=== PATIENT | male | born 1960 | race Caucasian/White ===

== ENCOUNTER 2016-11-24 13:09 | Inpatient (IN) | payer OTHER ==
[~2016-11-24] VITALS: Ht 200.7 cm; Wt 100.5 kg
[~2016-11-24 13:09] MED LIST: APIX5TAB PO; DILT1TAB4 PO; FURO20TA PO; HUMALOG SQ; LANTUS2P SQ; PROT40TA PO; RAMI5CAP PO
[2016-11-24 13:12] VITALS: BP 145/70; PULSE 82; RESP 18; TEMP 98; O2SAT 95
[2016-11-24] MEDS ORDERED: RAMI5CAP PO (18:02)
[2016-11-24] MEDS ORDERED: HYDROmorphone HCL PF 1 MG/ML VIAL IV PUSH ONE ×2 (18:15→18:45)
[2016-11-24 18:20] VITALS: BP 135/74; PULSE 85; RESP 18; O2SAT 100
--- NOTE | 2016-11-24 18:41 | PD ---
HPI Chief Complaint: Skin Problem Time Seen by Provider: 17:30 Travel History International Travel<30 days: No Contact w/Intl Traveler<30days: No Traveled to known affect area: No History of Present Illness HPI Patient is a 56-year-old male who returns to emergency room for evaluation of diabetic foot infection and osteomyelitis of his right toe. Patient reports that he has history of diabetic foot infections as well as osteomyelitis, reports that he has a chronic infection to his right digit #3 as well as his right plantar surface of his right foot. Patient reports that he was admitted last week on November 12, 2016 for right foot infection and swelling and was discharged on November 16, 2016. During the course of his admission, patient had an MRI of his right foot which showed cellulitis of the third toe and suspected osteomyelitis of the distal phalanx. Patient was seen by podiatry and it was recommended that he have his toe surgically removed, patient refuses surgical treatment at that time. Patient was seen by infectious disease, Dr. Orellana and it was decided that patient attempts antibiotics for treatment of his infection in lieu of surgical treatment. A PICC line was placed and patient was recommended to be on vancomycin for at least 6 weeks after discharge from hospital. Patient reports that he has been receiving his daily dose of IV vancomycin, reports that he did not receive his dose today. Patient reports that his right lower extremity infection is getting worse, reports that it is not getting any better. Patient reports that his lymph nodes in his groins are swollen and his right lower extremity is more swollen than normal. Patient reports that he does not think that the antibiotics are helping him. Patient also concerned for side effects of his antibiotic as he read that he can develop loss of hearing with vancomycin. Patient reports that he has been having intermittent hearing difficulties for the past week. Reports that he has been trying to get hold of Dr. Orellana with infectious disease but has not been able to reach him. At this time, patient reports that since his infection is not getting better with IV antibiotics, he would like surgical treatment to his right digit #3. PFSH Past Medical History Hx Anticoagulant Therapy: Yes (ELAQUIS ) Autoimmune Disease: No Blood Disorders: No Anxiety: Yes Depression: No Heart Rhythm Problems: No Cancer: No Cardiovascular Problems: Yes High Cholesterol: Yes Chest Pain: No Congestive Heart Failure: No Cerebrovascular Accident: No Diabetes: Yes (IDDM) Patient Takes Glucophage: No Diminished Hearing: No Endocrine: Yes Gastrointestinal Disorders: Yes GERD: Yes Genitourinary: No Hypertension: Yes Immune Disorder: No Musculoskeletal: No Neurologic: Yes (DIABETIC NEUROPATHY) Psychiatric: No Reproductive: No Respiratory: No Integumentary: Yes (diabetic foot ulcers for 15 years) Immunizations Current: Yes Migraines: No Seizures: No Thyroid Disease: No Tetanus Vaccination: < 5 Years Past Surgical History Abdominal Surgery: No AICD: No Arteriovenous Shunt: No Cardiac Surgery: Yes (two heart ablations ) Ear Surgery: No Endocrine Surgery: No Eye Surgery: No Genitourinary Surgery: No Gynecologic Surgery: No Insulin Pump: No Joint Replacement: No Neurologic Surgery: No Oral Surgery: Yes Pacemaker: No Thoracic Surgery: No Other Surgery: Yes ( SKIN GRAFTS, BILAT BIG TOES) Social History Alcohol Use: No Tobacco Use: No Substance Use: No Allergies-Medications (Allergen,Severity, Reaction): Coded Allergies: *MDRO Multi-Drug Resistant Organism (Verified Adverse Reaction, Unknown, MRSA, 11/24/16) 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, toe-03/2016 Reported Meds & Prescriptions Reported Meds & Active Scripts Active Reported Ramipril 5 Mg Cap 2.5 Mg PO BID Diltiazem ER 24 HR 240 Mg Brock 240 Mg PO DAILY Eliquis (Apixaban) 5 Mg Tab 5 Mg PO BID Lantus Inj (Insulin Glargine) 1,000 Unit/10 Ml Vial 10 Units SQ HS Humalog Inj (Insulin Human Lispro) 1,000 Unit/10 Ml Vial 5-25 Units SQ ACHS Max dose at bedtime:( )units; sugars < 70,(0)units; sugars 150-199,(5)units; sugars 200-249,(10)units; sugars 250-299,(15)units; sugars 300-349,(20)units; sugars more than 349,(25)units. Furosemide 20 Mg Tab 20 Mg PO BID Protonix (Pantoprazole Sodium) 40 Mg Tab 40 Mg PO DAILY Review of Systems General / Constitutional: Positive: Fever, Chills Eyes: No: Visual changes HENT: No: Headaches Cardiovascular: No: Chest Pain or Discomfort Respiratory: No: Shortness of Breath Gastrointestinal: No: Abdominal Pain Genitourinary: No: Dysuria Musculoskeletal: Positive: Edema, Pain (right digit #3) Skin: No Rash Neurologic: No: Weakness Psychiatric: No: Depression Endocrine: No: Polydipsia Hematologic/Lymphatic: No: Easy Bruising Physical Exam Narrative GENERAL: nad SKIN: Warm and dry. HEAD: Atraumatic. Normocephalic. EYES: Pupils equal and round. No scleral icterus. No injection or drainage. ENT: No nasal bleeding or discharge. Mucous membranes pink and moist. NECK: Trachea midline. No JVD. CARDIOVASCULAR: Regular rate and rhythm. No murmur appreciated. RESPIRATORY: No accessory muscle use. Clear to auscultation. Breath sounds equal bilaterally. GASTROINTESTINAL: Abdomen soft, non-tender, nondistended. Hepatic and splenic margins not palpable. MUSCULOSKELETAL: No obvious deformities. No clubbing. No cyanosis. +2 edema to RLE, pt with right digit #3: 1cm x 1cm ulceration to distal phalanx of digit #3 - no drainage, pt wtih 3cm x 3cm ulceration to right plantar surface of foot with no drainage, pulses intact, neurovascularly intact NEUROLOGICAL: Awake and alert. No obvious cranial nerve deficits. Motor grossly within normal limits. Normal speech. PSYCHIATRIC: Appropriate mood and affect; insight and judgment normal. Data Data Last Documented VS Vital Signs Date Time Temp Pulse Resp B/P Pulse Ox O2 Delivery O2 Flow Rate FiO2 11/24/16 19:30 74 20 125/69 98 Room Air 11/24/16 13:12 98.0 Orders Isolation 08,20 (11/24/16 18:03) Complete Blood Count With Diff (11/24/16 18:03) Comprehensive Metabolic Panel (11/24/16 18:03) Prothrombin Time / Inr (Pt) (11/24/16 18:03) Act Partial Throm Time (Ptt) (11/24/16 18:03) Us Leg Venous Doppler (11/24/16 ) Foot, Complete ([id number]) (11/24/16 ) Hydromorphone Pf Inj (Dilaudid Pf Inj) (11/24/16 18:15) Sodium Chlor 0.9% 1000 Ml Inj (Ns 1000 M (11/24/16 19:15) Hydromorphone Pf Inj (Dilaudid Pf Inj) (11/24/16 19:15) Daptomycin Inj (Cubicin Inj) (11/24/16 20:00) Admit Order (Ed Use Only) (11/24/16 19:56) Labs Laboratory Tests Test 11/24/16 18:29 White Blood Count 10.5 TH/MM3 Red Blood Count 3.55 MIL/MM3 Hemoglobin 11.2 GM/DL Hematocrit 32.0 % Mean Corpuscular Volume 90.1 FL Mean Corpuscular Hemoglobin 31.5 PG Mean Corpuscular Hemoglobin 35.0 % Concent Red Cell Distribution Width 12.5 % Platelet Count 263 TH/MM3 Mean Platelet Volume 7.2 FL Neutrophils (%) (Auto) 67.6 % Lymphocytes (%) (Auto) 16.9 % Monocytes (%) (Auto) 9.1 % Eosinophils (%) (Auto) 5.4 % Basophils (%) (Auto) 1.0 % Neutrophils # (Auto) 7.1 TH/MM3 Lymphocytes # (Auto) 1.8 TH/MM3 Monocytes # (Auto) 1.0 TH/MM3 Eosinophils # (Auto) 0.6 TH/MM3 Basophils # (Auto) 0.1 TH/MM3 CBC Comment DIFF FINAL Differential Comment Prothrombin Time 11.5 SEC Prothromb Time International 1.0 RATIO Ratio Activated Partial 32.3 SEC Thromboplast Time Sodium Level 134 MEQ/L Potassium Level 4.0 MEQ/L Chloride Level 99 MEQ/L Carbon Dioxide Level 26.3 MEQ/L Anion Gap 9 MEQ/L Blood Urea Nitrogen 15 MG/DL Creatinine 0.71 MG/DL Estimat Glomerular Filtration 115 ML/MIN Rate Random Glucose 198 MG/DL Calcium Level 8.2 MG/DL Total Bilirubin 0.3 MG/DL Aspartate Amino Transf 20 U/L (AST/SGOT) Alanine Aminotransferase 25 U/L (ALT/SGPT) Alkaline Phosphatase 122 U/L Total Protein 7.2 GM/DL Albumin 3.1 GM/DL MDM Medical Decision Making Medical Screen Exam Complete: Yes Emergency Medical Condition: Yes Interpretation(s) Vital Signs Date Time Temp Pulse Resp B/P Pulse Ox O2 Delivery O2 Flow Rate FiO2 11/24/16 18:20 85 18 135/74 100 Room Air 11/24/16 13:12 98.0 82 18 145/70 95 Room Air Differential Diagnosis Osteomyelitis, DVT, cellulitis Narrative Course Patient is a 56-year-old male with history of diabetic foot ulcers, presents to the emergency room with complaints of worsening cellulitis and osteomyelitis to his right lower extremity: plantar surface of foot as well as 3rd digit #3 Patient has PICC line in place, has been taking IV vancomycin without relief of symptoms. Call made to infectious disease to review antibiotics. Call made to Dr. Shipley with podiatry to discuss case and to review possible surgical intervention. Case reviewed with Dr. Shipley, requests the patient be kept nothing by mouth tonight, plan to operate on him tomorrow. case reviewed with INSTRUMENT REPAIR SPECIALIST Mariangel Shaw with ID, request that patient be placed on cubicin IV Will admit pt to [facility] Physician Communication Physician Communication case reviewed with dr escoto who accepts pt to service Diagnosis Primary Impression: Osteomyelitis of ankle or foot Additional Impression: Right leg swelling Admitting Information Admitting Physician Requests: Admit Eloisa Peralta DO Nov 24, 2016 18:41
[2016-11-24 18:44] LABS: AUTOMATED NEUTROPHIL # 7.1 TH/MM3 (1.8-7.7); BASOPHIL # 0.1 TH/MM3 (0-0.2); EOSINOPHIL # 0.6 TH/MM3 (0-0.4); EOSINOPHIL % 5.4 % (0.0-4.0); HEMO FLAGS DIFF FINAL; LYMPH % 16.9 % (9.0-44.0); LYMPHOCYTE # 1.8 TH/MM3 (1.0-4.8); MEAN CELL VOLUME 90.1 FL (80.0-100.0); MEAN CORPUSCULAR HEMOGLOBIN 31.5 PG (27.0-34.0); MONO % 9.1 % (0.0-8.0); NEUT % 67.6 % (16.0-70.0); PLATELET COUNT 263 TH/MM3 (150-450); RED BLOOD COUNT 3.55 MIL/MM3 (4.50-5.90); RED CELL DISTRIBUTION WIDTH 12.5 % (11.6-17.2); WHITE BLOOD COUNT 10.5 TH/MM3 (4.0-11.0)
--- NOTE | 2016-11-24 18:46 | RADRPT ---
EXAM DATE/TIME: 11/24/2016 18:21 [facility] COMPARISON: FOOT RIGHT COMPLETE ([id number]), November 12, 2016, 21:22. INDICATIONS : Generalized Right Foot Inflammation, Pain. MEDICAL HISTORY : Right Foot Fracture. SURGICAL HISTORY : Achilles tendon replacement, great toe surgery, heart ablations. ENCOUNTER: Initial ACUITY: 1 day PAIN SCORE: 10/10 LOCATION: Right Foot. FINDINGS: Three view examination of the right foot demonstrates soft tissue swelling of the first digit. Increa sed sclerosis of the proximal phalanx again noted. There are erosive changes involving the interphala ngeal joint of the great toe. This is unchanged. Deformity of the second metatarsal stable. The calc aneus is intact. Bony mineralization is normal. CONCLUSION: 1. Soft tissue swelling of the great toe with erosive changes of the interphalangeal joint and sclero sis of the proximal phalanx. This is unchanged. 2. Deformity of the second metatarsal unchanged. Dawood Donnelly MD on November 24, 2016 at 18:42 Board Certified Radiologist. This report was verified electronically.
[2016-11-24 18:51] LABS: APTT (PATIENT) 32.3 SEC (24.3-30.1); PROTHROMBIN TIME - PATIENT 11.5 SEC (9.8-11.6)
[2016-11-24 19:09] LABS: ANION GAP 9 MEQ/L (5-15); AST (GOT) 20 U/L (15-37); BICARBONATE 26.3 MEQ/L (21.0-32.0); BLOOD UREA NITROGEN 15 MG/DL (7-18); CHLORIDE 99 MEQ/L (98-107); GLOMERULAR FILTRATION RATE 115 ML/MIN (>89); SODIUM (NA) 134 MEQ/L (136-145)
[2016-11-24 19:12] LABS: ALKALINE PHOSPHATASE 122 U/L (45-117); ALT (GPT) 25 U/L (12-78); TOTAL BILIRUBIN ADULT 0.3 MG/DL (0.2-1.0)
[2016-11-24] MEDS ORDERED: SODIUM CHLOR 0.9% 1000 ML INJ 1,000 ML IV ONE (19:15)
[2016-11-24] MEDS ORDERED: HYDROmorphone HCL PF 1 MG/ML VIAL IVS ONE (19:15)
[2016-11-24 19:30] VITALS: BP 125/69; PULSE 74; RESP 20; O2SAT 98
[2016-11-24] MEDS ORDERED: SODIUM CHLORIDE 0.9% IV ONE (20:00)
[2016-11-24] MEDS ORDERED: DAPTOMYCIN IV ONE (20:00)
--- NOTE | 2016-11-24 20:10 | HHI.HP ---
[facility] Service [facility] Primary Care Physician No Primary Care Physician Admission Diagnosis osteomyelitis Diagnoses: (1) Osteomyelitis of ankle or foot Diagnosis: Principal (2) A-fib Diagnosis: Principal (3) DM (diabetes mellitus) Diagnosis: Principal Travel History International Travel<30 Days: No Contact w/Intl Traveler <30 Da: No Traveled to Known Affected Are: No History of Present Illness This is a 56 mL with a PMH of HTN, DM, Right Foot Infection, Right Osteomyelitis and A. fib on Eliquis who came into the ER for complaints of ongoing right foot pain and worsening swelling. Recent admit 11/12-11/16/16 for similar complaints, s/p failed outpatient therapy on Keflex, eval by ID and Podiatry w/ recommendation for surgical intervention, however pt declined. D/c' d w/ PICC line for long-term antibiotics w/ Vanc x6 wks. Plan for follow up w/ ID as outpatient. Returns now w/ ongoing symptoms, states willing to proceed w / surgical intervention this time. On arrival, BP 145/70, HR 82, O2 sat 95% on RA, Afebrile. WBC 10.5. Chemistry essentially unremarkable. Foot X-ray was soft tissue swelling of great toe and erosive changes, unchanged. Dr. Shipley consulted by ER physician, plan is for surgical intervention in a.m. Dr. Orellana also consulted by ER physician, plan is for IV antibiotics w/ Cubicin. S/p Cubicin 570mg IV x1 dose in ER. Review of Systems Other ROS: 14 point review of systems otherwise negative. Past Family Social History Past Medical History PMH: HTN, DM, Right Foot Infection, Right Osteomyelitis and A. fib on Eliquis Past Surgical History PAST SURGICAL HISTORY: Cardiac Ablation, Skin Graft Allergies: Coded Allergies: *MDRO Multi-Drug Resistant Organism (Verified Adverse Reaction, Unknown, MRSA, 11/24/16) 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, toe-03/2016 Family History PAST FAMILY HISTORY: Reviewed, positive for DM. Social History PAST SOCIAL HISTORY: Negative for alcohol, tobacco or drugs. Physical Exam Vital Signs Vital Signs Date Time Temp Pulse Resp B/P Pulse Ox O2 Delivery O2 Flow Rate FiO2 11/24/16 19:30 74 20 125/69 98 Room Air 11/24/16 19:30 70 20 11/24/16 18:20 85 18 135/74 100 Room Air 11/24/16 13:12 98.0 82 18 145/70 95 Room Air Physical Exam PE: GENERAL: Pleasant middle-aged white male in no acute distress. HEENT: PERRLA, EOMI. No scleral icterus or conjunctival pallor. No lid lag or facial droop. CARDIOVASCULAR: Regular rate and rhythm. No obvious murmurs to auscultation. No chest tenderness to palpation. RESPIRATORY: No obvious rhonchi or wheezing. Clear to auscultation. Breath sounds equal bilaterally. GASTROINTESTINAL: Abdomen soft, non-tender, nondistended. BS normal. MUSCULOSKELETAL: RLE edema 2+, right toe ulceration, no significant drainage noted. Pulses intact. NEUROLOGICAL: Awake, alert and oriented x4. No focal neurologic deficits. Moving both upper and lower extremities spontaneously. Laboratory Laboratory Tests Test 11/24/16 18:29 White Blood Count 10.5 Red Blood Count 3.55 Hemoglobin 11.2 Hematocrit 32.0 Mean Corpuscular Volume 90.1 Mean Corpuscular Hemoglobin 31.5 Mean Corpuscular Hemoglobin 35.0 Concent Red Cell Distribution Width 12.5 Platelet Count 263 Mean Platelet Volume 7.2 Neutrophils (%) (Auto) 67.6 Lymphocytes (%) (Auto) 16.9 Monocytes (%) (Auto) 9.1 Eosinophils (%) (Auto) 5.4 Basophils (%) (Auto) 1.0 Neutrophils # (Auto) 7.1 Lymphocytes # (Auto) 1.8 Monocytes # (Auto) 1.0 Eosinophils # (Auto) 0.6 Basophils # (Auto) 0.1 CBC Comment DIFF FINAL Differential Comment Prothrombin Time 11.5 Prothromb Time International 1.0 Ratio Activated Partial 32.3 Thromboplast Time Sodium Level 134 Potassium Level 4.0 Chloride Level 99 Carbon Dioxide Level 26.3 Anion Gap 9 Blood Urea Nitrogen 15 Creatinine 0.71 Estimat Glomerular Filtration 115 Rate Random Glucose 198 Calcium Level 8.2 Total Bilirubin 0.3 Aspartate Amino Transf 20 (AST/SGOT) Alanine Aminotransferase 25 (ALT/SGPT) Alkaline Phosphatase 122 Total Protein 7.2 Albumin 3.1 Result Diagram: 11/24/16 18211/[id number]/161828 Assessment and Plan Problem List: (1) Osteomyelitis of ankle or foot ICD Code: M86.9 Status: Acute (2) A-fib ICD Code: I48.91 Status: Acute (3) DM (diabetes mellitus) ICD Code: E11.9 Status: Acute Assessment and Plan A/P: 1. Right Foot Osteomyelitis: Chronic non-healing right foot ulcer, recent admit 11/12-11/16/16 s/p eval by ID and Podiatry w/ recommendation for surgical intervention, however pt declined. D/c'd w/ PICC line for long-term IV Abx w/ Vanc x6 wks. Returns now w/ ongoing pain/swelling, now willing to proceed w/ surgery. Foot X-ray w/ soft tissue swelling, images reviewed by me. Dr. Shipley consulted by ER physician, plan is for surgical intervention in am. NPO , IVF, analgesics/antiemetics as needed. Dr. Orellana consulted, plan is to switch to Cubicin, s/p IV Cubicin x1 dose in ER. 2. A-fib: Controlled. Resume home Diltiazem. Hold Eliquis for surgical intervention. 3. DM: Sliding scale w/ Accu-cheks. Resume home meds. 4. DVT Prophylaxis: Pharmacologic contraindication secondary to upcoming surgery. Mechanical contraindication secondary to LE wound. 5. Social work for d/c planning as needed. 6. Case discussed w/ ER physician at length Physician Certification 2 Midnight Certification Type: Admission for Inpatient Services Order for Inpatient Services The services are ordered in accordance with Medicare regulations or non- Medicare payer requirements, as applicable. In the case of services not specified as inpatient-only, they are appropriately provided as inpatient services in accordance with the 2-midnight benchmark. Estimated LOS (days): 2 days is the estimated time the patient will need to remain in the hospital, assuming treatment plan goals are met and no additional complications. Post-Hospital Plan: Not yet determined Sharmin Villalba MD Nov 24, 2016 20:10
[2016-11-24] MEDS ORDERED: ONDANSETRON HCL 4 MG/2 ML VIAL IVP PRN (20:15)
[2016-11-24] MEDS ORDERED: GLUCAGON 1 MG/ML VIAL OTHER PRN (20:15)
[2016-11-24] MEDS ORDERED: ACETAMINOPHEN/HYDROcodone 325 MG/5 MG TAB PO PRN (20:15)
[2016-11-24] MEDS ORDERED: ACETAMINOPHEN 325 MG TAB PO PRN (20:15)
[2016-11-24] MEDS ORDERED: SODIUM CHLORIDE 0.9% FLUSH 5 ML FLUSH FLUSH PRN (20:15)
[2016-11-24] MEDS ORDERED: DEXTROSE 50% IN WATER 50 ML VIAL(D50) IV PUSH PRN (20:15)
[2016-11-24] MEDS ORDERED: BISACODYL 10 MG SUPP PR PRN (20:15)
[2016-11-24] MEDS: SODIUM CHLORIDE 0.9% FLUSH 5 ML FLUSH FLUSH SCH (21:00)
[2016-11-24] MEDS: RAMIPRIL 2.5 MG CAP PO SCH (21:42)
[2016-11-24] MEDS: SODIUM CHLOR 0.9% 1000 ML INJ 1,000 ML IV SCH (21:42)
[2016-11-24] MEDS: INSULIN DETEMIR 100 UNITS/ML VIAL SQ SCH (21:42)
[2016-11-24] MEDS: FUROSEMIDE 20 MG TAB PO SCH (21:43)
[2016-11-24 21:45] VITALS: BP 131/63; PULSE 67; RESP 18; O2SAT 98
[2016-11-24] MEDS: INSULIN ASPART SUPPLEMENTAL SCALE SQ SCH (21:52)
[2016-11-25] VITALS: BP 166/80; PULSE 67; RESP 20; TEMP 97.6; O2SAT 98
[2016-11-25] MEDS: MORPHINE SULFATE 4 MG/ML INJ IV PRN ×2 (00:02→04:25)
[2016-11-25] MEDS: SODIUM CHLOR 0.9% 1000 ML INJ 1,000 ML IV SCH ×2 (06:35→16:06)
[2016-11-25] MEDS: INSULIN ASPART SUPPLEMENTAL SCALE SQ SCH ×4 (06:35→20:04)
[2016-11-25 07:31] LABS: AUTOMATED NEUTROPHIL # 5.3 TH/MM3 (1.8-7.7); BASOPHIL # 0.1 TH/MM3 (0-0.2); BASOPHIL % 0.9 % (0.0-2.0); EOSINOPHIL # 0.4 TH/MM3 (0-0.4); EOSINOPHIL % 5.6 % (0.0-4.0); HEMATOCRIT 31.3 % (39.0-51.0); HEMO FLAGS DIFF FINAL; LYMPH % 15.5 % (9.0-44.0); LYMPHOCYTE # 1.2 TH/MM3 (1.0-4.8); MEAN CELL VOLUME 90.4 FL (80.0-100.0); MEAN CORPUSCULAR HEMOGLOBIN 32.3 PG (27.0-34.0); MEAN CORPUSCULAR HGB CONC 35.7 % (32.0-36.0); MONO % 7.7 % (0.0-8.0); NEUT % 70.3 % (16.0-70.0); PLATELET COUNT 218 TH/MM3 (150-450); RED BLOOD COUNT 3.47 MIL/MM3 (4.50-5.90); RED CELL DISTRIBUTION WIDTH 12.7 % (11.6-17.2); WHITE BLOOD COUNT 7.6 TH/MM3 (4.0-11.0)
[2016-11-25 08:03] LABS: ALKALINE PHOSPHATASE 120 U/L (45-117); ALT (GPT) 21 U/L (12-78); ANION GAP 6 MEQ/L (5-15); AST (GOT) 14 U/L (15-37); BLOOD UREA NITROGEN 10 MG/DL (7-18); CHLORIDE 103 MEQ/L (98-107); GLOMERULAR FILTRATION RATE 129 ML/MIN (>89); POTASSIUM 3.7 MEQ/L (3.5-5.1); SODIUM (NA) 138 MEQ/L (136-145); TOTAL BILIRUBIN ADULT 0.2 MG/DL (0.2-1.0)
--- NOTE | 2016-11-25 08:43 | HHI.PR ---
Subjective Remarks Follow up on osteomyelitis in the right foot Sitting in bed comfortably He requested changing morphine to Dilaudid, morphine causing him nausea Reported fever overnight Objective Vitals Vital Signs Date Time Temp Pulse Resp B/P Pulse Ox O2 Delivery O2 Flow Rate FiO2 11/25/16 00:00 97.6 67 20 166/80 98 11/24/16 21:45 67 18 131/63 98 Room Air 11/24/16 19:30 74 20 125/69 98 Room Air 11/24/16 19:30 70 20 11/24/16 18:20 85 18 135/74 100 Room Air 11/24/16 13:12 98.0 82 18 145/70 95 Room Air I/O 11/24/16 11/24/16 11/24/16 11/25/16 11/25/16 11/25/16 07:00 15:00 23:00 07:00 15:00 23:00 Intake Total 240 ml Balance 240 ml Intake Oral 240 ml # Voids 1 # Bowel Movements 0 Result Diagram: 11/25/16 0700 11/25/16 0700 Objective Remarks GENERAL: This is a well-nourished, well-developed patient, in no apparent distress. SKIN: No rashes, warm and dry HEAD: Atraumatic. Normocephalic. EYES: Pupils equal round and reactive. Extraocular motions intact. No scleral icterus. ENT: Nose without bleeding, or drainage, Airway patent. NECK: Trachea midline. Supple CARDIOVASCULAR: Regular rate and rhythm without murmurs, gallops, or rubs. RESPIRATORY: Fair air entry bilaterally. No wheezes, rales, or rhonchi. GASTROINTESTINAL: Abdomen soft, non-tender, nondistended. Positive bowel sounds MUSCULOSKELETAL: +1 edema in the LES, left foot in gauze NEUROLOGICAL: Awake and alert. Moves all extremity. Normal speech.no focal neurological deficit A/P Problem List: (1) Osteomyelitis of ankle or foot ICD Code: M86.9 Status: Acute (2) A-fib ICD Code: I48.91 Status: Acute (3) DM (diabetes mellitus) ICD Code: E11.9 Status: Acute Assessment and Plan 1. Right Foot Osteomyelitis: Chronic non-healing right foot ulcer, recent admit 11/12-11/16/16 s/p eval by ID and Podiatry w/ recommendation for surgical intervention, however pt declined. D/c'd w/ PICC line for long-term IV Abx w/ Vanc x6 wks. Returns now w/ ongoing pain/swelling, now willing to proceed w/ surgery. Foot X-ray w/ soft tissue swelling. Dr. Shipley consulted appreciated his help,, plan is for surgical intervention today. NPO, IVF, analgesics/antiemetics as needed. Dr. Orellana consulted, plan is to switch to Cubicin, s/p IV Cubicin x1 dose in ER. Patient requested to switch from morphine to Dilaudid, morphine causing him nausea 2. A-fib: Controlled. Resume home Diltiazem. Hold Eliquis for surgical intervention. 3. DM: Sliding scale w/ Accu-cheks. Resume home meds. 4. DVT Prophylaxis: Pharmacologic contraindication secondary to upcoming surgery. Mechanical contraindication secondary to LE wound. Mirta Wilkerson MD Nov 25, 2016 08:43
[2016-11-25] MEDS: SODIUM CHLORIDE 0.9% FLUSH 5 ML FLUSH FLUSH SCH ×2 (09:00→20:48)
--- NOTE | 2016-11-25 09:37 | RADRPT ---
EXAM DATE/TIME: 11/25/2016 08:41 [facility] COMPARISON: US LEG RIGHT VENOUS DOPPLER, November 12, 2016, 21:36. INDICATIONS : Swelling. MEDICAL HISTORY : Hypertension. Chronic infection right foot. Diabetic. Cardiovascular problems. SURGICAL HISTORY : Cardiac ablation. ENCOUNTER: Subsequent ACUITY: 1 week PAIN SCORE: 9/10 LOCATION: Right leg. TECHNIQUE: Venous ultrasound of the leg was performed from the inguinal ligament to the proximal calf. Real-angelika e, color Doppler and spectral tracing, compression and augmentation techniques were used. FINDINGS: There is normal compressibility of the deep venous system from the inguinal region to the proximal ca lf. No echogenic clot is seen in the lumen of the common femoral, femoral, popliteal, and posterior tibial veins. There is a normal response of the venous system to proximal and distal augmentation an d respiration. CONCLUSION: No evidence for DVT. Prominent right inguinal node measuring up to 1.2 cm in short axis dimension. Vaughn Mahan MD on November 25, 2016 at 9:35 Board Certified Radiologist. This report was verified electronically.
[2016-11-25 10:03] VITALS: BP 192/88; PULSE 71; RESP 18; TEMP 98.1; O2SAT 97
[2016-11-25] MEDS ORDERED: MIDAZOLAM HCL 2 MG/2 ML VIAL ONE (10:26)
[2016-11-25] MEDS ORDERED: FAMOTIDINE 20 MG/2 ML VIAL ONE (10:27)
[2016-11-25] MEDS ORDERED: PROPOFOL 200 MG/20 ML AMP IV ONE (10:52)
[2016-11-25] MEDS ORDERED: ONDANSETRON HCL 4 MG/2 ML VIAL IV PUSH ONE (10:52)
--- NOTE | 2016-11-25 11:07 | MB ---
cc: MARQUISE KENNEY DPM DATE OF CONSULTATION: 11/25/2016 REASON FOR CONSULTATION: Right foot ulcer, possible osteomyelitis, worsening foot infection. HISTORY OF PRESENT ILLNESS This is a 56-year-old male who was previously seen in [place] he was diagnosed with osteomyelitis. The lesser digit positive methicillin-resistant Staphylococcus aureus culture. He was on Vancomycin, however, he developed elevated toxicity an elevated white count and he came into the hospital because he wished for definitive amputation of the digit. This was recommended last visit, however he wished to salvage the digit. However, at this point and time he wishes to move forward with eradication of infection currently, seeing the patient bedside, he denies any change in his foot other than chronic ulcer of the right third digit. PAST MEDICAL HISTORY: 1. Positive for hypertension 2. Diabetes 3. Right foot infection 4. Osteomyelitis 5. Atrial fibrillation on Eliquis PAST SURGICAL HISTORY Cardiac ablation Skin graft. MEDICATIONS: reviewed which daptomycin please see complete med list in chart. ALLERGIES Wound infection, methicillin-resistant Staphylococcus aureus. SOCIAL HISTORY Denies tobacco or alcohol. He lives locally. PHYSICAL EXAMINATION VITAL SIGNS: Temperature 97.6, pulse rate 67, respiratory rate 20, blood pressure 166/80. He is satting 98% on room air. EXAMINATION: He is alert, and oriented male seen bedside exhibiting nonlabored respirations. Right lower extremities examined. There is noted to be a partial thickness ulcer that probes just to periosteum of the level of the right third digit. There is redness, there is erythema. There is a chronic hammertoe contracture. There is a partial thickness ulcer of the plantar aspect of the medial cuneiform navicular area. This does not probe deep, this measures approximately 2 cm x 1.5 cm with 2 mm of depth. The foot is warm. There appears to be a chronic deformity consistent with borderline Charcot but it does not appear to be active, sensation is decreased to light touch. There is stability of the ankle. This appears to be a functional extremity. The patient does ambulate left lower extremity does not exhibit any obvious crepitus or instability or soft tissue findings. LABORATORY FINDINGS White blood cell 10.5, trending down to 7.6, hemoglobin/hematocrit 11/31, platelet count is 218. Chem-7 sodium 138, potassium 3.7, chloride 103, CO2 29, BUN is 10, random glucose is 254. Coagulation profile, PT 11.5, INR 1. IMAGING STUDIES FINDINGS Foot x-ray shows old fracture, second metatarsal as well as of bony deformity at the proximal phalanx of the hallux. The November 12 MRI shows a stabilized third toe with suspected osteomyelitis of the distal phalanx, chronic changes of the distal phalanx great toe and this second metatarsal with no obvious signs of bone infection at this level. The microbial findings 11/12/2016 revealed staph aureus MRSA and E faecalis. ASSESSMENT AND PLAN: Right third digit chronic ulcer, hammertoe contracture with likely osteomyelitis, chronic ulcer of right midfoot. Plan today is a right third digit amputation to eradicate infection ulcer debridement. The patient was educated on risks and benefits including but not limited to need for more surgery a later date. Continue antibiotics a need for compliance with minimal weight bearing for the next few weeks. The patient understood and we will see the patient for surgery later on today. TESHA Viera/candelario /8:57 AM /10:45 AM
[2016-11-25] MEDS ORDERED: BUPIVACAINE HCL PF 0.25% 30 ML VIAL ONE (11:56)
[2016-11-25] MEDS ORDERED: NEOMYCIN/POLYMYXIN 1 ML G.U. IRRIGANT IR ONE (12:23)
[2016-11-25] MEDS ORDERED: MIDAZOLAM HCL 2 MG/2 ML VIAL IV SCH (12:30)
--- NOTE | 2016-11-25 12:57 | HHI.PR ---
Immediate Post Op Note Procedure Date: Nov 25, 2016 Pre Op Diagnosis: right 3rd digit OM ulcer Post Op Diagnosis: same Surgeon: Chinedu Arroyo Electrical Manufacturing Technician(s): Scrub Yessy Procedure: right 3rd digit amputation, excisional debridement foot Findings: see op dict, margin appears clear from OM Complications: none Specimen(s) removed: right 3rd digit for path, deep wd cx Estimated blood loss: less 30 mL Anesthesia: TIVA, Local Drains: None IVF Tourniquet time (min at mmHg) 250 mmhg 15 min Patient to: Other Patient Condition: Good Implant/Devices: SEE IMPLANT LOG (if applicable) Date/Time of Procedure: SEE SURGICAL CARE RECORD Chinedu Arroyo DPM Nov 25, 2016 12:57
[2016-11-25] MEDS ORDERED: FAMOTIDINE 20 MG/2 ML VIAL IV ONE (13:00)
[2016-11-25] MEDS ORDERED: DO NOT ADM ANY ANTICOAGULANT DRUGS XX PRN (13:15)
[2016-11-25] MEDS: HYDROmorphone HCL PF 1 MG/ML VIAL IV PUSH PRN ×3 (14:30→22:24)
[2016-11-25] MEDS: PANTOPRAZOLE SOD 40 MG DELAYED RELEASE TAB PO SCH (14:30)
[2016-11-25] MEDS: FUROSEMIDE 20 MG TAB PO SCH ×2 (14:30→20:48)
[2016-11-25] MEDS: RAMIPRIL 2.5 MG CAP PO SCH ×2 (14:30→20:48)
[2016-11-25] MEDS: DILTIAZEM-CD 240 MG CAP ER PO SCH (14:30)
[2016-11-25 17:13] VITALS: BP 167/78; PULSE 75; RESP 18; TEMP 98.3; O2SAT 98
--- NOTE | 2016-11-25 19:06 | MP ---
cc: MARQUISE KENNEY DP DATE OF SURGERY 11/25/16 PREOPERATIVE DIAGNOSIS Right third digit ulcer osteomyelitis, foot ulcer. POSTOPERATIVE DIAGNOSIS Right third digit ulcer osteomyelitis, foot ulcer. PROCEDURES PERFORMED Right third digit amputation with excisional debridement plantar right foot. SPECIMENS Right third digit for path. Deep wound culture for micro. ESTIMATED BLOOD LOSS Less than 30 ml. ANESTHESIA TIVA with local 0.25% Marcaine plain, approximately 10 cc injected. DRAINS None. TOURNIQUET Setting at 250 mmHg. Tourniquet time approximately 15 minutes. ACTIVITY Return to floor. Continue IV antibiotics, monitor wound. JUSTIFICATION FOR PROCEDURE A 56-year-old male readmitted to the hospital. History of MRI verified osteomyelitis. He was to have the digit remove PROCEDURE IN DETAIL Under mild sedation the patient was brought to the operating room, placed on operative table in the supine position. Following the induction of monitored anesthesia care local anesthesia was obtained about the patient's plantar medial midfoot for ulcer debridement and at the level of the right third digit. The patient's foot was then scrubbed, prepped and draped in the usual aseptic fashion. The foot was elevated, exsanguinated. The previously placed mid ankle tourniquet was inflated to 250 mmHg. An incision was made at the plantar aspect of the ulcer, ellipsing out the ulcer. This ulcer measured approximately 3 1/2 cm x 3 1/2 cm. Utilizing a combination of ___ round pickup 15 blade rongeur and curette the wound base was debrided to viable bleeding tissue. The wound was flushed with copious amounts of normal saline. There was no probing to deep structures. Next, an elliptical incision was made full thickness at the level of the third MPJ. Sharp and blunt dissection was carried down to the third MPJ. The digit was sharply disarticulated. No signs of deep infection. The cortical contents appeared to be fully intact. No signs of osteomyelitis at the level of the margin. The wound was then closed in layers after Bovie and ligation of vessels. Upon relieving the tourniquet there was a prompt hyperemic response to all digits without any delayed capillary refill time minus the amputated digit of course. The patient was transferred from OR to PACU with all vital signs stable. He is transfer weightbear only. Will await deep wound culture and expect discharge within 1-2 days. TESHA Viera /12:57 PM /6:57 PM
[2016-11-25 20:00] VITALS: BP 167/88; PULSE 74; RESP 18; TEMP 98.5; O2SAT 97
[2016-11-25] MEDS ORDERED: DAPTOmycin INJ 400 MG in SODIUM CHLORIDE 0.9% INJ 100 ML IV SCH (20:00)
[2016-11-25] MEDS: INSULIN DETEMIR 100 UNITS/ML VIAL SQ SCH (20:48)
[2016-11-25 21:06] LABS: MEAN CORPUSCULAR HGB CONC 36.4 % (32.0-36.0)
[2016-11-26] VITALS: BP 168/88; PULSE 64; RESP 18; TEMP 98.3; O2SAT 100
[2016-11-26] MEDS: SODIUM CHLOR 0.9% 1000 ML INJ 1,000 ML IV SCH (02:06)
[2016-11-26] MEDS: INSULIN ASPART SUPPLEMENTAL SCALE SQ SCH (06:09)
[2016-11-26 07:07] VITALS: O2SAT 96
[2016-11-26 07:22] LABS: AUTOMATED NEUTROPHIL # 6.4 TH/MM3 (1.8-7.7); BASOPHIL # 0.1 TH/MM3 (0-0.2); BASOPHIL % 1.1 % (0.0-2.0); EOSINOPHIL # 0.4 TH/MM3 (0-0.4); EOSINOPHIL % 4.7 % (0.0-4.0); HEMATOCRIT 32.3 % (39.0-51.0); LYMPH % 16.2 % (9.0-44.0); LYMPHOCYTE # 1.5 TH/MM3 (1.0-4.8); MEAN CELL VOLUME 89.1 FL (80.0-100.0); MEAN CORPUSCULAR HEMOGLOBIN 32.4 PG (27.0-34.0); MONO % 6.2 % (0.0-8.0); NEUT % 71.8 % (16.0-70.0); PLATELET COUNT 244 TH/MM3 (150-450); RED BLOOD COUNT 3.62 MIL/MM3 (4.50-5.90); RED CELL DISTRIBUTION WIDTH 12.3 % (11.6-17.2)
[2016-11-26 08:12] LABS: HEMO FLAGS AUTO DIFF
[2016-11-26] MEDS ORDERED: oxyCODONE/ACETAMINOPHEN 7.5 MG/325 MG TAB PO PRN (08:15)
[2016-11-26 08:16] VITALS: BP 166/79; PULSE 77; RESP 18; TEMP 99; O2SAT 96
[2016-11-26] MEDS: DILTIAZEM-CD 240 MG CAP ER PO SCH (08:43)
[2016-11-26] MEDS: RAMIPRIL 2.5 MG CAP PO SCH (08:43)
[2016-11-26] MEDS: FUROSEMIDE 20 MG TAB PO SCH (08:43)
[2016-11-26] MEDS: PANTOPRAZOLE SOD 40 MG DELAYED RELEASE TAB PO SCH (08:43)
[2016-11-26] MEDS: SODIUM CHLORIDE 0.9% FLUSH 5 ML FLUSH FLUSH SCH (08:46)
--- NOTE | 2016-11-26 09:22 | PD.POD ---
Subjective Pain score: 2 Remarks Ready to go home however wants Dilaudid Past Med/Surg/Social History Social History Smoking Status: Never Smoker Objective Vital Signs Vital Signs Date Time Temp Pulse Resp B/P Pulse Ox O2 Delivery O2 Flow Rate FiO2 11/26/16 08:16 99.0 77 18 166/79 96 11/26/16 07:07 96 21 11/26/16 00:00 98.3 64 18 168/88 100 11/25/16 20:00 98.5 74 18 167/88 97 11/25/16 17:13 98.3 75 18 167/78 98 11/25/16 13:30 97.0 73 15 179/90 96 Room Air 11/25/16 13:15 64 15 170/89 99 Simple Mask 6 11/25/16 13:00 63 15 164/86 99 Simple Mask 6 11/25/16 12:57 97.0 65 15 166/96 99 Simple Mask 6 11/25/16 10:05 98.3 70 16 177/86 97 11/25/16 10:03 98.1 71 18 192/88 97 Coded Allergies: *MDRO Multi-Drug Resistant Organism (Verified Adverse Reaction, Unknown, MRSA, 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) 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, toe-03/2016 Medications and IVs Administered Medications Medications (Trade) Dose Ordered Sig/Veronica Route PRN Reason Start Time Stop Time Status Last Admin Dose Admin Daptomycin 400 mg/ Sodium Chloride 100 ml @ 200 mls/hr Q24H IV 11/25/16 20:00 11/25/16 20:48 Sodium Chloride (NS 1000 ml Inj) 1,000 ml @ 100 mls/hr Q10H IV 11/24/16 20:06 11/26/16 02:06 IV Flush (NS Flush) 2 ml BID FLUSH 11/24/16 21:00 11/26/16 08:46 Acetaminophen/ Hydrocodone Bitart ([place] 5-325 Mg) 1 tab Q4H PRN PO PAIN SCALE 3 TO 5 11/24/16 20:15 11/26/16 04:30 Diltiazem HCl (Cardizem Cd) 240 mg DAILY PO 11/25/16 09:00 11/26/16 08:43 Furosemide (Lasix) 20 mg BID PO 11/24/16 21:00 11/26/16 08:43 Insulin Detemir (Levemir Inj) 10 units HS SQ 11/24/16 21:00 11/25/16 20:48 Pantoprazole Sodium (Protonix) 40 mg DAILY PO 11/25/16 09:00 11/26/16 08:43 Ramipril (Altace) 2.5 mg BID PO 11/24/16 21:00 11/26/16 08:43 Other Results Laboratory Tests Test 11/24/16 11/25/16 11/26/16 18:29 07:00 06:15 White Blood Count 10.5 TH/MM3 7.6 TH/MM3 9.0 TH/MM3 Red Blood Count 3.55 MIL/MM3 3.47 MIL/MM3 3.62 MIL/MM3 Hemoglobin 11.2 GM/DL 11.2 GM/DL 11.7 GM/DL Hematocrit 32.0 % 31.3 % 32.3 % Mean Corpuscular Volume 90.1 FL 90.4 FL 89.1 FL Mean Corpuscular Hemoglobin 31.5 PG 32.3 PG 32.4 PG Mean Corpuscular Hemoglobin 35.0 % 35.7 % 36.4 % Concent Red Cell Distribution Width 12.5 % 12.7 % 12.3 % Platelet Count 263 TH/MM3 218 TH/MM3 244 TH/MM3 Mean Platelet Volume 7.2 FL 7.6 FL 8.0 FL Neutrophils (%) (Auto) 67.6 % 70.3 % 71.8 % Lymphocytes (%) (Auto) 16.9 % 15.5 % 16.2 % Monocytes (%) (Auto) 9.1 % 7.7 % 6.2 % Eosinophils (%) (Auto) 5.4 % 5.6 % 4.7 % Basophils (%) (Auto) 1.0 % 0.9 % 1.1 % Neutrophils # (Auto) 7.1 TH/MM3 5.3 TH/MM3 6.4 TH/MM3 Lymphocytes # (Auto) 1.8 TH/MM3 1.2 TH/MM3 1.5 TH/MM3 Monocytes # (Auto) 1.0 TH/MM3 0.6 TH/MM3 0.6 TH/MM3 Eosinophils # (Auto) 0.6 TH/MM3 0.4 TH/MM3 0.4 TH/MM3 Basophils # (Auto) 0.1 TH/MM3 0.1 TH/MM3 0.1 TH/MM3 CBC Comment DIFF FINAL DIFF FINAL AUTO DIFF Differential Comment Laboratory Tests Test 11/24/16 11/25/16 18:29 07:00 Sodium Level 134 MEQ/L 138 MEQ/L Potassium Level 4.0 MEQ/L 3.7 MEQ/L Chloride Level 99 MEQ/L 103 MEQ/L Carbon Dioxide Level 26.3 MEQ/L 29.0 MEQ/L Anion Gap 9 MEQ/L 6 MEQ/L Blood Urea Nitrogen 15 MG/DL 10 MG/DL Creatinine 0.71 MG/DL 0.64 MG/DL Estimat Glomerular Filtration 115 ML/MIN 129 ML/MIN Rate Random Glucose 198 MG/DL 254 MG/DL Calcium Level 8.2 MG/DL 8.3 MG/DL Total Bilirubin 0.3 MG/DL 0.2 MG/DL Aspartate Amino Transf 20 U/L 14 U/L (AST/SGOT) Alanine Aminotransferase 25 U/L 21 U/L (ALT/SGPT) Alkaline Phosphatase 122 U/L 120 U/L Total Protein 7.2 GM/DL 6.7 GM/DL Albumin 3.1 GM/DL 2.7 GM/DL Microbiology Date/Time Procedure Status Source Growth 11/25/16 12:39 Gram Stain - Final Resulted Wound Foot 11/25/16 12:39 Wound Culture Resulted Wound Foot Pending 11/25/16 12:39 Acid Fast Stain Received Wound Foot Pending 11/25/16 12:39 Mycobacterial Culture Received Wound Foot Pending 11/25/16 12:39 Fungal Smear - Final Resulted Wound Foot NO FUNGAL ELEMENTS SEEN. 11/25/16 12:39 Fungal Culture Resulted Wound Foot Pending Exam-Podiatry Remarks Right foot- amputation site clean with out SOI sutures intact, partial thickness ulcer foot 3cm 2cm 2mm does not probe granular. foot is warm, sensation decreased below ankle. Assessment & Plan A/P Right 3rd digit ulcer OM, ulcer SP 3rd digit amputation with ulcer debridement 11/25 Reviewed gm stain neg form surgery, margins appeared clean, ok to FU out, DC on PO meds, Cleocin, hold removal of PICC line, CAM boot order for offloading FU out pt one week, pt to provide woundcare. please see DC orders. Chinedu Shipley DPValeri Nov 26, 2016 09:22
[2016-11-26] MEDS ORDERED: CLEO300C2 PO (09:28)
[2016-11-26] MEDS ORDERED: OXYC1CAP PO (09:29)
[2016-11-26 12:02] VITALS: BP 155/74; PULSE 66; RESP 18; TEMP 98.2; O2SAT 99
--- NOTE | 2016-11-26 13:58 | EKG ---
Date Performed: 11/25/2016 Time Performed: 09:52:22 PTAGE: 56 years EKG: Sinus rhythm with 1st degree A-V block --- Suspect arm lead reversal - only aVF, V1-V6 analyzed --- Abnormal ECG Compared to PREVIOUS TRACING , there has been resolution of the ST-T wave changes in the precordial l wolf. The limb leads are hard to compare because there appears to be limb lead reversal on the presen t tracing. A repeat tracing is adivsed with careful attention to lead placement. PREVIOUS TRACING 02/12/2015 05.26 DOCTOR: Jerica Steven Interpretating Date/Time 11/26/2016 13:56:51
--- NOTE | 2016-11-26 14:11 | HHI.DS ---
Discharge Summary Admission Date Nov 24, 2016 at 19:57 Discharge Date: Nov 26, 2016 Admitting Diagnosis osteomyelitis (1) Osteomyelitis of ankle or foot ICD Code: M86.9 (2) A-fib ICD Code: I48.91 (3) DM (diabetes mellitus) ICD Code: E11.9 Procedures SP 3rd digit amputation with ulcer debridement 11/25 Brief History - From Admission This is a 56 mL with a PMH of HTN, DM, Right Foot Infection, Right Osteomyelitis and A. fib on Eliquis who came into the ER for complaints of ongoing right foot pain and worsening swelling. Recent admit 11/12-11/16/16 for similar complaints, s/p failed outpatient therapy on Keflex, eval by ID and Podiatry w/ recommendation for surgical intervention, however pt declined. D/c' d w/ PICC line for long-term antibiotics w/ Vanc x6 wks. Plan for follow up w/ ID as outpatient. Returns now w/ ongoing symptoms, states willing to proceed w / surgical intervention this time. On arrival, BP 145/70, HR 82, O2 sat 95% on RA, Afebrile. WBC 10.5. Chemistry essentially unremarkable. Foot X-ray was soft tissue swelling of great toe and erosive changes, unchanged. Dr. Shipley consulted by ER physician, plan is for surgical intervention in a.m. Dr. Orellana also consulted by ER physician, plan is for IV antibiotics w/ Cubicin. S/p Cubicin 570mg IV x1 dose in ER. CBC/BMP: 11/26/16 0615 11/25/16 0700 Significant Findings Laboratory Tests Test 11/24/16 11/25/16 11/26/16 18:29 07:00 06:15 Red Blood Count 3.55 MIL/MM3 3.47 MIL/MM3 3.62 MIL/MM3 (4.50-5.90) (4.50-5.90) (4.50-5.90) Hemoglobin 11.2 GM/DL 11.2 GM/DL 11.7 GM/DL (13.0-17.0) (13.0-17.0) (13.0-17.0) Hematocrit 32.0 % 31.3 % 32.3 % (39.0-51.0) (39.0-51.0) (39.0-51.0) Monocytes (%) (Auto) 9.1 % (0.0-8.0) Eosinophils (%) (Auto) 5.4 % (0.0-4.0) 5.6 % (0.0-4.0) 4.7 % (0.0-4.0) Monocytes # (Auto) 1.0 TH/MM3 (0-0.9) Eosinophils # (Auto) 0.6 TH/MM3 (0-0.4) Activated Partial 32.3 SEC Thromboplast Time (24.3-30.1) Sodium Level 134 MEQ/L (136-145) Random Glucose 198 MG/DL 254 MG/DL (74-106) (74-106) Calcium Level 8.2 MG/DL 8.3 MG/DL (8.5-10.1) (8.5-10.1) Alkaline Phosphatase 122 U/L 120 U/L (45-117) (45-117) Albumin 3.1 GM/DL 2.7 GM/DL (3.4-5.0) (3.4-5.0) Neutrophils (%) (Auto) 70.3 % 71.8 % (16.0-70.0) (16.0-70.0) Aspartate Amino Transf 14 U/L (15-37) (AST/SGOT) Mean Corpuscular Hemoglobin 36.4 % Concent (32.0-36.0) Imaging Last Impressions Lower Extremity Ultrasound 11/25/16 0000 Signed Impressions: Service Date/Time: Friday, November 25, 2016 08:41 - CONCLUSION: No evidence for DVT. Prominent right inguinal node measuring up to 1.2 cm in short axis dimension. Vaughn Mahan MD Foot X-Ray 11/24/16 0000 Signed Impressions: Service Date/Time: Thursday, November 24, 2016 18:21 - CONCLUSION: 1. Soft tissue swelling of the great toe with erosive changes of the interphalangeal joint and sclerosis of the proximal phalanx. This is unchanged. 2. Deformity of the second metatarsal unchanged. Dawood Donnelly MD PE at Discharge GENERAL: This is a well-nourished, well-developed patient, in no apparent distress. CARDIOVASCULAR: Regular rate and rhythm without murmurs, gallops, or rubs. RESPIRATORY: Clear to auscultation. Breath sounds equal bilaterally. No wheezes , rales, or rhonchi. GASTROINTESTINAL: Abdomen soft, non-tender, nondistended. Normal active bowel sounds MUSCULOSKELETAL: Postop surgical changes Extremities without clubbing, cyanosis , or edema. NEURO: Alert & Oriented x4 to person, place, time, situation. Moves all ext x4 Pt update on day of discharge Discharge plan discussed with podiatry Patient seen and evaluated for discharge planning. She will discuss with Hospital Course Patient was admitted with osteomyelitis of the third Right digit ulcer OM, ulcer. He is now status post cardiogenic amputation with ulcer debridement. Patient's margins appeared clear and patient was discharged on oral antibiotics His atrial fibrillation diabetes remained stable Pt Condition on Discharge: Good Discharge Disposition: Discharge Home Discharge Time: > 30 minutes Discharge Instructions DIET: Follow Instructions for: As Tolerated, No Restrictions Activities you can perform: See Additionl Instruction Other Activity Instructions: as per podiatry Follow up Referrals: Appointment for Follow Up Podiatry - 1 Week @ [facility] with Chinedu Shipley DPM New Medications: Clindamycin (Cleocin) 300 Mg Cap 300 MG PO Q8HR Infection #21 Ref 0 CAP Oxycodone (Oxycodone) 5 Mg Cap 5 MG PO Q8H PRN PAIN #20 Ref 0 CAP Sonia Moran MD Nov 26, 2016 14:10
[2016-11-26 14:45] LABS: SCAN/DIFF AUTO DIFF CONFIRMED
== END 2016-11-26 16:25 | disposition home or self-care (01) | DRG 617 ==
LOC: HOR 13:09 → NEDA 19:57 → N04A 23:15
PROVIDERS: ADMIT Hospitalist; ATTEND Hospitalist
PROC: 0JBQ0ZZ Excision of Right Foot Subcutaneous Tissue and Fascia, Open Approach (ICD-10-PCS; 2016-11-25)
PROC: 0Y6T0Z0 Detachment at Right 3rd Toe, Complete, Open Approach (ICD-10-PCS; principal; 2016-11-25 12:12)
DX: E11.69 Type 2 diabetes mellitus with other specified complication (principal); M86.9 Osteomyelitis, unspecified; L97.419 Non-pressure chronic ulcer of right heel and midfoot with unspecified severity; I10 Essential (primary) hypertension; E11.621 Type 2 diabetes mellitus with foot ulcer; I48.91 Unspecified atrial fibrillation; M20.41 Other hammer toe(s) (acquired), right foot; B95.62 Methicillin resistant Staphylococcus aureus infection as the cause of diseases classified elsewhere; B95.2 Enterococcus as the cause of diseases classified elsewhere; L97.514 Non-pressure chronic ulcer of other part of right foot with necrosis of bone; Z79.01 Long term (current) use of anticoagulants
CPT/HCPCS: 73630; 80053; 82948; 85025; 85610; 85730; 87015; 87070; 87102; 87116; 87205; 87206; 88305; 88311; 93005; 93971; 96374; J0878; J1170; J1815; J2250; J2270; J2405; J3010; J7030; L2114

== ENCOUNTER 2016-11-30 21:13 | Observation (INO) | payer OTHER ==
[~2016-11-30] VITALS: Ht 182.9 cm; Wt 99.5 kg
[~2016-11-30 21:13] MED LIST changes: +CLEO300C2 PO; +OXYC1CAP PO
[2016-11-30 21:17] VITALS: BP 148/87; PULSE 85; RESP 16; TEMP 98.8; O2SAT 99
[2016-11-30] MEDS ORDERED: SODIUM CHLORIDE 0.9% FLUSH 5 ML FLUSH IVF PRN (22:00)
[2016-11-30] MEDS ORDERED: SODIUM CHLORID 0.9% 500 ML INJ 500 ML IV ONE (22:00)
[2016-11-30] MEDS ORDERED: ONDANSETRON HCL 4 MG/2 ML VIAL IV PUSH ONE (22:00)
[2016-11-30] MEDS: SODIUM CHLOR 0.9% 1000 ML INJ 1,000 ML IV SCH (22:00)
--- NOTE | 2016-11-30 22:26 | RADHPO ---
EXAM DATE/TIME: 11/30/2016 22:15 [facility] COMPARISON: CHEST SINGLE AP, November 15, 2016, 18:53. INDICATIONS : Patient states vomiting and chest pains. MEDICAL HISTORY : Diabetes mellitus type II. SURGICAL HISTORY : None. ENCOUNTER: Initial ACUITY: 2 days PAIN SCORE: 2/10 LOCATION: Bilateral chest FINDINGS: A single view of the chest demonstrates the lungs to be symmetrically aerated without evidence of mas s, infiltrate or effusion. The cardiomediastinal contours are unremarkable. Osseous structures are intact. There is a right arm PICC. If it is the same PICC present previously, it has been pulled back conside rably, tip now in the subclavian vein. CONCLUSION: No evidence of acute cardiopulmonary disease. Right arm PICC has its tip in the right subclavian vein . Please see above. Collin Wright MD on November 30, 2016 at 22:23 Board Certified Radiologist. This report was verified electronically.
[2016-11-30 22:40] LABS: HEMATOCRIT 36.7 % (39.0-51.0); MEAN CELL VOLUME 91.3 FL (80.0-100.0); MEAN CORPUSCULAR HEMOGLOBIN 31.8 PG (27.0-34.0); MEAN CORPUSCULAR HGB CONC 34.8 % (32.0-36.0); PLATELET COUNT 295 TH/MM3 (150-450); RED BLOOD COUNT 4.02 MIL/MM3 (4.50-5.90); RED CELL DISTRIBUTION WIDTH 11.8 % (11.6-17.2); WHITE BLOOD COUNT 12.6 TH/MM3 (4.0-11.0)
[2016-11-30 22:45] LABS: HEMO FLAGS AUTO DIFF
[2016-11-30 22:48] LABS: CHLORIDE 101 MEQ/L (98-107); POTASSIUM 4.1 MEQ/L (3.5-5.1); SODIUM (NA) 135 MEQ/L (136-145)
[2016-11-30 22:51] LABS: ANION GAP 9 MEQ/L (5-15); BICARBONATE 24.7 MEQ/L (21.0-32.0)
[2016-11-30 22:52] LABS: BLOOD UREA NITROGEN 9 MG/DL (7-18); MAGNESIUM 1.9 MG/DL (1.5-2.5)
[2016-11-30 22:54] LABS: ALT (GPT) 25 U/L (12-78)
[2016-11-30 22:55] LABS: AST (GOT) 25 U/L (15-37); GLOMERULAR FILTRATION RATE 105 ML/MIN (>89)
[2016-11-30 22:56] LABS: TOTAL BILIRUBIN ADULT 0.5 MG/DL (0.2-1.0)
[2016-11-30 22:57] LABS: ALKALINE PHOSPHATASE 112 U/L (45-117)
[2016-11-30 22:59] LABS: BANDS 2 % (0-6); NEUTROPHIL # MANUAL DIFF 11.6 TH/MM3 (1.8-7.7); POLYS (SEG NEUTROPHILS) 90 % (16-70); WBC DIFF SAMPLE 100
[2016-11-30 23:00] LABS: PLATELET ESTIMATE SMEAR NORMAL (NORMAL); PLATELET MORPHOLOGY NORMAL (NORMAL); SCAN/DIFF FINAL DIFF MANUAL
[2016-11-30 23:06] LABS: BETA-HYDROXYBUTYRATE 0.35 MMOL/L (0.00-0.39)
--- NOTE | 2016-11-30 23:55 | PD ---
HPI Chief Complaint: GI Complaint Time Seen by Provider: 21:47 Travel History International Travel<30 days: No Contact w/Intl Traveler<30days: No Traveled to known affect area: No History of Present Illness HPI 56-year-old male presents to the emergency department for evaluation of generalized chills nausea vomiting and inability to take his outpatient oral antibiotic clindamycin. Patient was discharged from the hospital reportedly 2 days ago after being hospitalized 11/24/16 through 11/27/16 for management of an infected right foot with third toe osteomyelitis and subsequent amputation by podiatry. Patient had been receiving vancomycin while in the hospital with plan to discharge patient for outpatient management on oral clindamycin and then to reassess patient is an outpatient reportedly with blood work to see if he needs to have ongoing IV antibiotics with outpatient vancomycin. Patient reportedly was seen by a home health nurse today and he reported that he was having nausea and vomiting. Patient reports nurse was there to assess what dressing care would be needed for his toe but did not address his complaint of nausea vomiting and chills. Patient presents now stating that he cannot take his antibiotic and has had some mild diarrhea as well but has no diarrhea at this time. Patient rates pain 5-8/10. Patient states that wound site at the postsurgical site looks good without redness swelling or drainage. Patient has a plantar diabetic ulcer that has not been draining and appears to be healing. Patient also has a right upper extremity PICC line that he is supposedly keeping preserved until tomorrow when they determined whether or not to reinitiate vancomycin as an outpatient IV antibiotic. Patient has not had any soreness or redness or induration or drainage at the PICC line insertion site reportedly. [facility] Past Medical History Narrative Medical Eliquis, anxiety, afib, htn, DM, hypercholesterolemia, diabetic neuropathy, right third toe amputation, atrial ablation 2; no tobacco use no alcohol use; nursing notes reviewed Hx Anticoagulant Therapy: Yes (ELAQUIS ) Autoimmune Disease: No Blood Disorders: No Anxiety: Yes Depression: No Heart Rhythm Problems: No Cancer: No Cardiovascular Problems: Yes (AFIB) High Cholesterol: Yes Chest Pain: No Congestive Heart Failure: No Cerebrovascular Accident: No Diabetes: Yes (IDDM) Patient Takes Glucophage: No Diminished Hearing: No Endocrine: Yes Gastrointestinal Disorders: Yes GERD: Yes Genitourinary: No Headaches: No Hiatal Hernia: No Hypertension: Yes Immune Disorder: No Implanted Vascular Access Dvce: No Musculoskeletal: No Neurologic: Yes (DIABETIC NEUROPATHY) Psychiatric: Yes Reproductive: No Respiratory: No Integumentary: Yes (diabetic foot ulcers for 15 years) Immunizations Current: Yes Migraines: No Seizures: No Thyroid Disease: No Ulcer: No Past Surgical History Abdominal Surgery: No AICD: No Arteriovenous Shunt: No Cardiac Surgery: Yes (TWO HEART ABLATIONS) Ear Surgery: No Endocrine Surgery: No Eye Surgery: No Genitourinary Surgery: No Gynecologic Surgery: No Insulin Pump: No Joint Replacement: No Neurologic Surgery: No Oral Surgery: Yes Pacemaker: No Thoracic Surgery: No Other Surgery: Yes ( SKIN GRAFTS, BILAT BIG TOES) Social History Alcohol Use: No Tobacco Use: No Substance Use: No Allergies-Medications (Allergen,Severity, Reaction): Coded Allergies: *MDRO Multi-Drug Resistant Organism (Verified Adverse Reaction, Unknown, MRSA, 11/30/16) 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, toe-03/2016 Reported Meds & Prescriptions Reported Meds & Active Scripts Active Oxycodone (Oxycodone HCl) 5 Mg Cap 5 Mg PO Q8H PRN Cleocin (Clindamycin HCl) 300 Mg Cap 300 Mg PO Q8HR Reported Ramipril 5 Mg Cap 2.5 Mg PO BID Diltiazem ER 24 HR 240 Mg Brock 240 Mg PO DAILY Eliquis (Apixaban) 5 Mg Tab 5 Mg PO BID Lantus Inj (Insulin Glargine) 1,000 Unit/10 Ml Vial 10 Units SQ HS Humalog Inj (Insulin Human Lispro) 1,000 Unit/10 Ml Vial 5-25 Units SQ ACHS Max dose at bedtime:( )units; sugars < 70,(0)units; sugars 150-199,(5)units; sugars 200-249,(10)units; sugars 250-299,(15)units; sugars 300-349,(20)units; sugars more than 349,(25)units. Furosemide 20 Mg Tab 20 Mg PO BID Protonix (Pantoprazole Sodium) 40 Mg Tab 40 Mg PO DAILY Review of Systems Except as stated in HPI: all other systems reviewed are Neg General / Constitutional: Positive: Fever, Chills HENT: No: Congestion Cardiovascular: No: Chest Pain or Discomfort Respiratory: No: Cough, Shortness of Breath Gastrointestinal: Positive: Nausea, Vomiting (2 days), Diarrhea (3), No: Abdominal Pain (2 days), Hematemesis, Hematochezia, Loss of Appetite Genitourinary: No: Urgency, Frequency, Dysuria, Hematuria Musculoskeletal: No: Myalgias, Arthralgias Skin: No Rash Neurologic: Positive: Weakness, No: Dizziness, Syncope Psychiatric: No: Anxiety Hematologic/Lymphatic: No: Easy Bruising Physical Exam Narrative GENERAL: Well-developed well-nourished male in no acute distress no respiratory distress SKIN: Warm and dry. HEAD: Normocephalic. EYES: No scleral icterus. No injection or drainage. NECK: Supple, trachea midline. No JVD or lymphadenopathy. CARDIOVASCULAR: Regular rate and rhythm without murmurs, gallops, or rubs. RESPIRATORY: Breath sounds equal bilaterally. No accessory muscle use. GASTROINTESTINAL: Abdomen soft, non-tender, nondistended. MUSCULOSKELETAL: No cyanosis, or edema. Attention right foot right third toe amputation site sutures are in place no redness no edema no fluctuance no drainage; plantar diabetic ulcer 3 x 3 with good granulation tissue no purulent drainage. Right upper extremity PICC line in place without obvious insertion site erythema induration or purulent drainage. Dressing appears somewhat dirty and contaminated. BACK: Nontender without obvious deformity. No CVA tenderness. Data Data Last Documented VS Vital Signs Date Time Temp Pulse Resp B/P Pulse Ox O2 Delivery O2 Flow Rate FiO2 11/30/16 21:17 98.8 85 16 148/87 99 Orders Complete Blood Count With Diff (11/30/16 21:47) Comprehensive Metabolic Panel (11/30/16 21:47) Influenzae A/B Antigen (11/30/16 21:47) Chest, Single Ap (11/30/16 21:47) Iv Access Insert/Monitor (11/30/16 21:47) Oximetry (11/30/16 21:47) Sodium Chloride 0.9% Flush (Ns Flush) (11/30/16 22:00) Blood Culture (11/30/16 21:47) Ondansetron Inj (Zofran Inj) (11/30/16 22:00) Blood Glucose (11/30/16 21:47) Beta Hydroxybutyrate (Acetone) (11/30/16 21:47) Sodium Chlorid 0.9% 500 Ml Inj (Ns 500 M (11/30/16 22:00) Sodium Chlor 0.9% 1000 Ml Inj (Ns 1000 M (11/30/16 22:00) Magnesium (Mg) (11/30/16 21:47) Lactic Acid (11/30/16 23:45) Foot, Complete ([id number]) (11/30/16 ) Labs Laboratory Tests Test 11/30/16 11/30/16 22:35 23:55 White Blood Count 12.6 TH/MM3 Red Blood Count 4.02 MIL/MM3 Hemoglobin 12.8 GM/DL Hematocrit 36.7 % Mean Corpuscular Volume 91.3 FL Mean Corpuscular Hemoglobin 31.8 PG Mean Corpuscular Hemoglobin 34.8 % Concent Red Cell Distribution Width 11.8 % Platelet Count 295 TH/MM3 Mean Platelet Volume 7.0 FL Neutrophils (%) (Auto) % Lymphocytes (%) (Auto) % Monocytes (%) (Auto) % Eosinophils (%) (Auto) % Basophils (%) (Auto) % Neutrophils # (Auto) TH/MM3 Lymphocytes # (Auto) TH/MM3 Monocytes # (Auto) TH/MM3 Eosinophils # (Auto) TH/MM3 Basophils # (Auto) TH/MM3 CBC Comment AUTO DIFF Differential Total Cells 100 Counted Neutrophils % (Manual) 90 % Band Neutrophils % 2 % Lymphocytes % 6 % Monocytes % 2 % Neutrophils # (Manual) 11.6 TH/MM3 Differential Comment FINAL DIFF MANUAL Platelet Estimate NORMAL Platelet Morphology Comment NORMAL Red Cell Morphology Comment NORMAL Sodium Level 135 MEQ/L Potassium Level 4.1 MEQ/L Chloride Level 101 MEQ/L Carbon Dioxide Level 24.7 MEQ/L Anion Gap 9 MEQ/L Blood Urea Nitrogen 9 MG/DL Creatinine 0.77 MG/DL Estimat Glomerular Filtration 105 ML/MIN Rate Random Glucose 156 MG/DL Calcium Level 8.6 MG/DL Magnesium Level 1.9 MG/DL Total Bilirubin 0.5 MG/DL Aspartate Amino Transf 25 U/L (AST/SGOT) Alanine Aminotransferase 25 U/L (ALT/SGPT) Alkaline Phosphatase 112 U/L Total Protein 8.3 GM/DL Albumin 3.2 GM/DL B-Hydroxybutyrate 0.35 MMOL/L Lactic Acid Level 0.8 mmol/L [facility] Medical Decision Making Medical Screen Exam Complete: Yes Emergency Medical Condition: Yes Medical Record Reviewed: Yes Interpretation(s) right foot xr: FINDINGS: Interval amputation of the phalanges of the 3rd digit. The 3rd metatarsus is intact. Deformity of the phalanges of the 1st digit with sclerosis and hypertrophic changes and periosteal thickening of the distal 2nd metatarsus are stable from prior. No radiopaque foreign body is seen. CONCLUSION: Interval 3rd digit phalangeal amputation with smooth cortical margins to the distal 3rd metatarsus. No radiopaque foreign bodies. Trenton Dolan MD on December 01, 2016 at 0:47 Board Certified Radiologist. This report was verified electronically. Laboratory Tests Test 11/30/16 11/30/16 22:35 23:55 White Blood Count 12.6 TH/MM3 Red Blood Count 4.02 MIL/MM3 Hemoglobin 12.8 GM/DL Hematocrit 36.7 % Mean Corpuscular Volume 91.3 FL Mean Corpuscular Hemoglobin 31.8 PG Mean Corpuscular Hemoglobin 34.8 % Concent Red Cell Distribution Width 11.8 % Platelet Count 295 TH/MM3 Mean Platelet Volume 7.0 FL Neutrophils (%) (Auto) % Lymphocytes (%) (Auto) % Monocytes (%) (Auto) % Eosinophils (%) (Auto) % Basophils (%) (Auto) % Neutrophils # (Auto) TH/MM3 Lymphocytes # (Auto) TH/MM3 Monocytes # (Auto) TH/MM3 Eosinophils # (Auto) TH/MM3 Basophils # (Auto) TH/MM3 CBC Comment AUTO DIFF Differential Total Cells 100 Counted Neutrophils % (Manual) 90 % Band Neutrophils % 2 % Lymphocytes % 6 % Monocytes % 2 % Neutrophils # (Manual) 11.6 TH/MM3 Differential Comment FINAL DIFF MANUAL Platelet Estimate NORMAL Platelet Morphology Comment NORMAL Red Cell Morphology Comment NORMAL Sodium Level 135 MEQ/L Potassium Level 4.1 MEQ/L Chloride Level 101 MEQ/L Carbon Dioxide Level 24.7 MEQ/L Anion Gap 9 MEQ/L Blood Urea Nitrogen 9 MG/DL Creatinine 0.77 MG/DL Estimat Glomerular Filtration 105 ML/MIN Rate Random Glucose 156 MG/DL Calcium Level 8.6 MG/DL Magnesium Level 1.9 MG/DL Total Bilirubin 0.5 MG/DL Aspartate Amino Transf 25 U/L (AST/SGOT) Alanine Aminotransferase 25 U/L (ALT/SGPT) Alkaline Phosphatase 112 U/L Total Protein 8.3 GM/DL Albumin 3.2 GM/DL B-Hydroxybutyrate 0.35 MMOL/L Lactic Acid Level 0.8 mmol/L Differential Diagnosis Infected foot, infected postop site, line infection, pneumonia, adverse medication reaction, C. difficile diarrhea Narrative Course IV access obtained specimens collected and sent for resulting CBC with automated differential leukocytosis with left shift; complete metabolic panel values grossly within normal limits normal range bicarbonate and anion gap; beta hydroxybutyric acid not elevated Celi Carlos MD Nov 30, 2016 23:55
[2016-12-01] VITALS (7 sets, daily range): BP systolic 140–183; BP diastolic 71–85; PULSE 76–89; RESP 16–20; TEMP 97–99.4; O2SAT 96–99
--- NOTE | 2016-12-01 00:51 | RADHPO ---
EXAM DATE/TIME: 12/01/2016 00:19 [place] COMPARISON: FOOT RIGHT COMPLETE ([id number]), November 24, 2016, 18:21. INDICATIONS : Patient states swelling post-op 2 days. MEDICAL HISTORY : Diabetes mellitus type II. SURGICAL HISTORY : Right toe amputation ENCOUNTER: Initial ACUITY: 2 days PAIN SCORE: 4/10 LOCATION: Right Foot FINDINGS: Interval amputation of the phalanges of the 3rd digit. The 3rd metatarsus is intact. Deformity of t he phalanges of the 1st digit with sclerosis and hypertrophic changes and periosteal thickening of th e distal 2nd metatarsus are stable from prior. No radiopaque foreign body is seen. CONCLUSION: Interval 3rd digit phalangeal amputation with smooth cortical margins to the distal 3rd metatarsus. No radiopaque foreign bodies. Trenton Dolan MD on December 01, 2016 at 0:47 Board Certified Radiologist. This report was verified electronically.
[2016-12-01] MEDS ORDERED: SENNOSIDES 8.6 MG TAB PO PRN (01:15)
[2016-12-01] MEDS ORDERED: MAGNESIUM HYDROXIDE SUSP 30 ML CUP PO PRN (01:15)
[2016-12-01] MEDS ORDERED: DEXTROSE 50% IN WATER 50 ML VIAL(D50) IV PUSH PRN (01:15)
[2016-12-01] MEDS ORDERED: BISACODYL 10 MG SUPP PR PRN (01:15)
[2016-12-01] MEDS ORDERED: Vancomycin Consult Pharmacy 1 EA OTHER SCH (01:15)
[2016-12-01] MEDS ORDERED: SODIUM CHLORIDE 0.9% FLUSH 5 ML FLUSH FLUSH PRN (01:15)
[2016-12-01] MEDS ORDERED: PROCHLORPERAZINE 25 MG SUPP PR PRN (01:15)
[2016-12-01] MEDS ORDERED: GLUCAGON 1 MG/ML VIAL OTHER PRN (01:15)
[2016-12-01] MEDS ORDERED: ONDANSETRON HCL 4 MG/2 ML VIAL IVP PRN (01:15)
[2016-12-01] MEDS ORDERED: ACETAMINOPHEN 325 MG TAB PO PRN (01:15)
[2016-12-01] MEDS ORDERED: SODIUM CHLORIDE 0.9% FLUSH 5 ML FLUSH IVF PRN (01:15)
[2016-12-01] MEDS ORDERED: ENOXAPARIN SODIUM 40 MG/0.4 ML SYRINGE SQ SCH (01:15)
[2016-12-01] MEDS ORDERED: VANCOMYCIN INJ 2,000 MG in SODIUM CHLORID 0.9% 500 ML INJ 500 ML IV SCH (03:00)
[2016-12-01] MEDS: SODIUM CHLOR 0.9% 1000 ML INJ 1,000 ML IV SCH (03:05)
[2016-12-01] MEDS: INSULIN ASPART SUPPLEMENTAL SCALE SQ SCH ×2 (06:42→11:55)
[2016-12-01] MEDS ORDERED: SODIUM CHLORIDE 0.9% FLUSH 5 ML FLUSH FLUSH SCH (09:00)
[2016-12-01] MEDS ORDERED: SODIUM CHLORIDE 0.9% FLUSH 5 ML FLUSH IVF SCH (09:00)
[2016-12-01] MEDS ORDERED: DILTIAZEM-CD 240 MG CAP ER PO SCH (09:00)
[2016-12-01] MEDS ORDERED: APIXABAN 5 MG TABLET PO SCH (09:00)
[2016-12-01] MEDS ORDERED: PANTOPRAZOLE SOD 40 MG DELAYED RELEASE TAB PO SCH (09:00)
[2016-12-01] MEDS ORDERED: FUROSEMIDE 20 MG TAB PO SCH (09:00)
[2016-12-01] MEDS ORDERED: RAMIPRIL 5 MG CAP PO SCH (09:00)
[2016-12-01 09:15] LABS: AUTOMATED NEUTROPHIL # 7.4 TH/MM3 (1.8-7.7); BASOPHIL % 0.5 % (0.0-2.0); EOSINOPHIL % 0.4 % (0.0-4.0); HEMATOCRIT 38.4 % (39.0-51.0); HEMO FLAGS DIFF FINAL; LYMPHOCYTE # 0.9 TH/MM3 (1.0-4.8); MEAN CELL VOLUME 93.1 FL (80.0-100.0); MEAN CORPUSCULAR HEMOGLOBIN 31.1 PG (27.0-34.0); MEAN CORPUSCULAR HGB CONC 33.5 % (32.0-36.0); MONO % 5.1 % (0.0-8.0); PLATELET COUNT 268 TH/MM3 (150-450); RED BLOOD COUNT 4.13 MIL/MM3 (4.50-5.90); WHITE BLOOD COUNT 8.7 TH/MM3 (4.0-11.0)
[2016-12-01] MEDS ORDERED: CEPHALEXIN MONOHYDRATE 500 MG CAP PO SCH (11:00)
--- NOTE | 2016-12-01 11:00 | HHI.HP ---
[facility] No Primary Care Physician Admission Diagnosis Leukocytosis; Diabetic foot ulcer; clindamycin intolerance Diagnoses: Travel History International Travel<30 Days: No Contact w/Intl Traveler <30 Da: No Traveled to Known Affected Are: No History of Present Illness This is a 56-year-old male known to me from previous hospitalization who came to the hospital yesterday because he was having nausea and vomiting and unable to take clindamycin. The patient had underwent a right second toe disarticulation at the metatarsal phalangeal joint with Dr. Shipley on November 25. Cultures from that operation were negative. The patient was discharged home on by mouth clindamycin. He is not tolerating that. The patient for unknown reasons was discharged home with PICC line. He states he is not on IV antibiotics and does not plan to see infectious disease as an outpatient. The patient is having a home health nurse evaluate him. The patient states that the wound has been healing well and he has not had any fevers chills redness or drainage. He has not had any further nausea or vomiting overnight. Tolerated breakfast this morning. He did have some mild diarrhea. 10 point review systems otherwise negative. Past Family Social History Past Medical History Atrial fibrillation, diabetes mellitus, hypertension, GERD Past Surgical History Reported Medications Allergies Coded Allergies Type Severity Reaction Last Updated Verified *MDRO Multi-Drug Resistant Organism Adverse Reaction Unknown MRSA 11/30/16 Yes Active Scripts Medications Dose Route/Sig Days Date Category Dose Instructions Cephalexin 500 Mg Cap 500 Mg PO Q8HR 12/01/16 Rx Oxycodone (Oxycodone HCl) 5 Mg Cap 5 Mg PO Q8H PRN 11/26/16 Rx Ramipril 5 Mg Cap 2.5 Mg PO BID 11/24/16 Reported Diltiazem ER 24 HR 240 Mg Brock 240 Mg PO DAILY 11/12/16 Reported Eliquis (Apixaban) 5 Mg Tab 5 Mg PO BID 11/12/16 Reported Lantus Inj (Insulin Glargine) 1,000 Unit/10 Ml Vial 10 Units SQ HS 11/12/16 Reported Humalog Inj (Insulin Human Lispro) 1,000 Unit/10 Ml Vial 5-25 Units SQ ACHS 11/12/16 Reported Max dose at bedtime:( )units; sugars < 70,(0) units; sugars 150-199,(5)units; sugars 200-249,(10)units; sugars 250-299,(15)units; sugars 300-349,(20)units; sugars more than 349,(25)units. Furosemide 20 Mg Tab 20 Mg PO BID 11/12/16 Reported Protonix (Pantoprazole Sodium) 40 Mg Tab 40 Mg PO DAILY 11/12/16 Reported Allergies: Coded Allergies: *MDRO Multi-Drug Resistant Organism (Verified Adverse Reaction, Unknown, MRSA, 11/30/16) 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, toe-03/2016 Family History Reviewed and noncontributory Social History No current alcohol tobacco or drug use Physical Exam Vital Signs Vital Signs Date Time Temp Pulse Resp B/P Pulse Ox O2 Delivery O2 Flow Rate FiO2 12/01/16 08:00 99.4 79 20 183/80 99 12/01/16 07:30 96 21 12/01/16 03:02 78 12/01/16 02:00 98.4 76 20 140/82 97 12/01/16 01:00 98 21 12/01/16 00:58 98.7 89 16 170/71 98 Room Air 11/30/16 21:17 98.8 85 16 148/87 99 Physical Exam GENERAL: Well-nourished, well-developed patient. SKIN: Warm and dry. HEAD: Normocephalic. EYES: No scleral icterus. No injection or drainage. NECK: Supple, trachea midline. No JVD or lymphadenopathy. CARDIOVASCULAR: Regular rate and rhythm without murmurs, gallops, or rubs. RESPIRATORY: Breath sounds equal bilaterally. No accessory muscle use. GASTROINTESTINAL: Abdomen soft, non-tender, nondistended. EXTREMITIES: No cyanosis, or edema. S/p amputation of right second toe - site is c/d/i with sutures, no drainage, erythema. NEUROLOGICAL: Awake, alert, and oriented x 3. Non-focal. Laboratory Laboratory Tests Test 11/30/16 11/30/16 12/01/16 22:35 23:55 09:00 White Blood Count 12.6 8.7 Red Blood Count 4.02 4.13 Hemoglobin 12.8 12.9 Hematocrit 36.7 38.4 Mean Corpuscular Volume 91.3 93.1 Mean Corpuscular Hemoglobin 31.8 31.1 Mean Corpuscular Hemoglobin 34.8 33.5 Concent Red Cell Distribution Width 11.8 12.0 Platelet Count 295 268 Mean Platelet Volume 7.0 7.0 Neutrophils (%) (Auto) 84.0 Lymphocytes (%) (Auto) 10.0 Monocytes (%) (Auto) 5.1 Eosinophils (%) (Auto) 0.4 Basophils (%) (Auto) 0.5 Neutrophils # (Auto) 7.4 Lymphocytes # (Auto) 0.9 Monocytes # (Auto) 0.4 Eosinophils # (Auto) 0.0 Basophils # (Auto) 0.0 CBC Comment AUTO DIFF DIFF FINAL Differential Total Cells 100 Counted Neutrophils % (Manual) 90 Band Neutrophils % 2 Lymphocytes % 6 Monocytes % 2 Neutrophils # (Manual) 11.6 Differential Comment FINAL DIFF MANUAL Platelet Estimate NORMAL Platelet Morphology Comment NORMAL Red Cell Morphology Comment NORMAL Sodium Level 135 Potassium Level 4.1 Chloride Level 101 Carbon Dioxide Level 24.7 Anion Gap 9 Blood Urea Nitrogen 9 Creatinine 0.77 Estimat Glomerular Filtration 105 Rate Random Glucose 156 Calcium Level 8.6 Magnesium Level 1.9 Total Bilirubin 0.5 Aspartate Amino Transf 25 (AST/SGOT) Alanine Aminotransferase 25 (ALT/SGPT) Alkaline Phosphatase 112 Total Protein 8.3 Albumin 3.2 B-Hydroxybutyrate 0.35 Lactic Acid Level 0.8 Date/Time Procedure Status Source Growth 11/30/16 22:45 Influenza Types A,B Antigen (MEENAKSHI) - Final Complete Nasal Washing NEGATIVE FOR FLU A AND B ANTIGEN.... 11/30/16 22:45 Aerobic Blood Culture Received Blood Peripheral Pending 11/30/16 22:45 Anaerobic Blood Culture Received Blood Peripheral Pending Result Diagram: 12/01/16 0900 11/30/16 [id number] Assessment and Plan Assessment and Plan - Nausea and vomiting. Resolved. May have been a side effect to clindamycin. Cultures from the disarticulation on November 25 were negative for any growth. We'll place him on Keflex instead. The patient is to follow-up with his poll watcher next week. He'll continue his other home medications. Danielle Mcgrath MD Dec 01, 2016 11:00
[2016-12-01] MEDS ORDERED: CEPH500C PO (11:45)
--- NOTE | 2016-12-01 11:46 | HHI.FF ---
Face to Face Verification Diagnosis: (1) Lower limb amputation, other toe(s) (2) DM (diabetes mellitus) Home Health Nursing Order: Medical education Diabetic education Wound care and dressing changes I have seen patient Tyron Sandoval on 12/01/16. My clinical findings support the need for the requested home health care services because: Need for psychosocial assistance I certify that my clinical findings support that this patient is homebound because: Unsteady gait/balance Danielle Mcgrath MD Dec 01, 2016 11:46
--- NOTE | 2016-12-02 06:36 | MB ---
cc: LILLI RODRIGUEZ DPM DATE OF CONSULTATION: 12/02/2015 DATE OF : 1960 CONSULTING PHYSICIAN Lilli Rodriguez, MOE,PH,DPM. HISTORY OF PRESENT ILLNESS The patient is a 56-year-old male who was discharged 11/27/2016 after the right third digit disarticulation amputation with Dr. Shipley and discharge. He presented to the hospital with chills, pain as well as a history of intact PICC line which per reported evaluation in the emergency department was not in a well kept condition. The patient was seen at bedside this a.m. main NAD resting comfortably. Denies any lower extremity pain. PAST MEDICAL HISTORY Atrial fibrillation right third digit for osteomyelitis. History of gastroesophageal reflux disease. Diabetic neuropathy. PAST SURGICAL HISTORY Right third digit disarticulation amputation. SOCIAL HISTORY Denies all medications per HPI, REVIEW OF SYSTEMS Positive vomiting x2, positive diarrhea x3 Abdominal pain x2 days. Positive fever and chills. PHYSICAL EXAMINATION Right third digit amputation site well approximated intact sutures no erythema, no edema. No active sign of drainage, no acute sign of infection. First medial mid foot with a 4 x 3 ulcer with some periwound keratome granulation tissue intact. No probing no exposed bone or tendon. No active drainage. Mild periwound erythema. Protective sensation absent. DP and PT intact on the right foot. Protective sensation diminished to absent. Muscle strength was 05/05 in all quadrants. LABORATORY FINDINGS: WBC on 12/01/2016 8.7, RBC of 4.13, H&H 12.9 and 38.4. ASSESSMENT/PLAN Status post right third digit disarticulation amputation secondary to osteomyelitis. The wound cultures intraoperatively from the amputation were negative for ostia at the resection site. At this point he is pending ID recommendations for IV antibiotics. We will defer oral antibiotics to medicine an I&D. The patient is planning follow up with Dr. Shipley, I reinforced that with the patient. Dry sterile dressings were applied to the patient understands that he needs to keep dressing clean, dry, intact until followup. And then protected weightbearing. Lilli Rodriguez DPM /candelario /10:07 PM /6:13 AM
[2016-12-02] MEDS ORDERED: INFLUENZA VIRUS VACCINE (QUADRIVALENT) 0.5 ML SYR IM ONE (09:00)
[2016-12-02] MEDS ORDERED: PHARMACY ORDERED LAB XX ONE (14:45)
== END 2016-12-01 14:27 | disposition home health service (06) ==
LOC: PHED 21:13 → PHEDA 12-01 01:12 → PH3A 12-01 02:48
PROVIDERS: ADMIT Family Medicine; ATTEND Family Medicine
DX: E11.621 Type 2 diabetes mellitus with foot ulcer (principal); D72.829 Elevated white blood cell count, unspecified; T36.8X5A Adverse effect of other systemic antibiotics, initial encounter; L97.509 Non-pressure chronic ulcer of other part of unspecified foot with unspecified severity; R11.2 Nausea with vomiting, unspecified; I48.91 Unspecified atrial fibrillation; I10 Essential (primary) hypertension; F41.9 Anxiety disorder, unspecified; E11.40 Type 2 diabetes mellitus with diabetic neuropathy, unspecified; E78.00 Pure hypercholesterolemia, unspecified; R50.9 Fever, unspecified; K21.9 Gastro-esophageal reflux disease without esophagitis; Z89.421 Acquired absence of other right toe(s); Z79.01 Long term (current) use of anticoagulants; Z79.4 Long term (current) use of insulin
CPT/HCPCS: 71010; 73630; 80053; 82010; 82948; 83605; 83735; 85007; 85025; 85027; 87040; 87804; 96361; 96374; 97161; 99285; G0378; G8987; G8988; J1815; J2405; J3370; J7030; J7040

== ENCOUNTER 2017-01-08 20:07 | Emergency (ER) | payer OTHER ==
[~2017-01-08] VITALS: Ht 200.7 cm; Wt 93.8 kg
[~2017-01-08 20:07] MED LIST changes: +CEPH500C PO; -CLEO300C2 PO
[2017-01-08 20:34] VITALS: BP 111/59; PULSE 87; RESP 18; TEMP 98.4; O2SAT 98
--- NOTE | 2017-01-08 20:59 | PD ---
HPI Chief Complaint: Edema Time Seen by Provider: 20:55 Travel History International Travel<30 days: No Contact w/Intl Traveler<30days: No Traveled to known affect area: No History of Present Illness HPI 56-year-old male presents to the emergency department for complaint of swelling to the right lower leg and foot since Sunday. Patient is being followed closely by his podiatrists Dr. Mijares and Dr. Shipley. Patient went to see his [employer] business analyst Dr. Mijares on Sunday and was placed on amoxicillin for redness of the right second toe. Patient completed a seven-day course of amoxicillin today. Patient denies any ascending erythema fever chills nausea or vomiting. Patient is also not noted any explosive diarrhea or bloody diarrhea. Patient denies any chest pain or shortness of breath. No prior history of DVT. No prior history of swelling of the lower leg. Patient was encouraged by his [employer] business analyst to come to the emergency room today to have an x-ray of the foot. Patient has a large plantar diabetic ulcer to the sole of the right foot that is being followed by his [employer] business analyst with plan for skin graft in the near future but was noted to have some erythema and superficial abrasion early ulceration to the lateral surface of the distal tip of the right second toe. Patient rates pain 5-10 over 10 in intensity. Patient denies other concerns or complaints. Weightbearing does cause increased pain to the right second toe. Patient denies any injury or trauma. 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 diabetic foot ulcer diabetic neuropathy, ablation, foot graft, no tobacco use; nursing notes reviewed Hx Anticoagulant Therapy: Yes (ELIQUIS) Autoimmune Disease: No Blood Disorders: No Anxiety: Yes Depression: No Heart Rhythm Problems: No Cancer: No Cardiovascular Problems: Yes (AFIB) High Cholesterol: Yes Chest Pain: No Congestive Heart Failure: No Cerebrovascular Accident: No Diabetes: Yes (IDDM) Diminished Hearing: No Endocrine: Yes Gastrointestinal Disorders: Yes GERD: Yes Genitourinary: No Headaches: No Hiatal Hernia: No Hypertension: Yes Immune Disorder: No Implanted Vascular Access Dvce: No Musculoskeletal: No Neurologic: Yes (DIABETIC NEUROPATHY) Psychiatric: Yes Reproductive: No Respiratory: No Integumentary: Yes (diabetic foot ulcers for 15 years) Immunizations Current: Yes Migraines: No Seizures: No Thyroid Disease: No Ulcer: No Past Surgical History Abdominal Surgery: No AICD: No Arteriovenous Shunt: No Cardiac Surgery: Yes (TWO HEART ABLATIONS) Ear Surgery: No Endocrine Surgery: No Eye Surgery: No Genitourinary Surgery: No Gynecologic Surgery: No Insulin Pump: No Joint Replacement: No Neurologic Surgery: No Oral Surgery: Yes Pacemaker: No Thoracic Surgery: No Other Surgery: Yes ( SKIN GRAFTS, BILAT BIG TOES) Social History Alcohol Use: No Tobacco Use: No Substance Use: No Allergies-Medications (Allergen,Severity, Reaction): Coded Allergies: *MDRO Multi-Drug Resistant Organism (Verified Adverse Reaction, Unknown, MRSA, 01/08/17) 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, toe-03/2016 Reported Meds & Prescriptions Reported Meds & Active Scripts Active Bactrim DS (Sulfamethoxazole-Trimethoprim) 800-160 Mg Tab 1 Tab PO BID Clindamycin (Clindamycin HCl) 150 Mg Cap 300 Mg PO Q6H 7 Days Cephalexin 500 Mg Cap 500 Mg PO Q8HR Oxycodone (Oxycodone HCl) 5 Mg Cap 5 Mg PO Q8H PRN Reported Ramipril 5 Mg Cap 2.5 Mg PO BID Diltiazem ER 24 HR 240 Mg Brock 240 Mg PO DAILY Eliquis (Apixaban) 5 Mg Tab 5 Mg PO BID Lantus Inj (Insulin Glargine) 1,000 Unit/10 Ml Vial 10 Units SQ HS Humalog Inj (Insulin Human Lispro) 1,000 Unit/10 Ml Vial 5-25 Units SQ ACHS Max dose at bedtime:( )units; sugars < 70,(0)units; sugars 150-199,(5)units; sugars 200-249,(10)units; sugars 250-299,(15)units; sugars 300-349,(20)units; sugars more than 349,(25)units. Furosemide 20 Mg Tab 20 Mg PO BID Protonix (Pantoprazole Sodium) 40 Mg Tab 40 Mg PO DAILY Review of Systems Except as stated in HPI: all other systems reviewed are Neg General / Constitutional: No: Fever, Chills HENT: No: Congestion Cardiovascular: No: Chest Pain or Discomfort Respiratory: No: Shortness of Breath, Pleuritic Pain Gastrointestinal: No: Nausea, Vomiting, Diarrhea, Abdominal Pain Genitourinary: No: Dysuria Musculoskeletal: Positive: Myalgias, Arthralgias, Edema (RLE) Neurologic: No: Weakness Psychiatric: No: Anxiety Hematologic/Lymphatic: No: Easy Bruising Physical Exam Narrative GENERAL: Well-developed well-nourished male in no acute distress no respiratory distress SKIN: Warm and dry. HEAD: Atraumatic. Normocephalic. EYES: Pupils equal and round. No scleral icterus. No injection or drainage. ENT: No nasal bleeding or discharge. Mucous membranes pink and moist. NECK: Trachea midline. No JVD. CARDIOVASCULAR: Regular rate and rhythm. RESPIRATORY: No accessory muscle use. Clear to auscultation. Breath sounds equal bilaterally. GASTROINTESTINAL: Abdomen soft, non-tender, nondistended. Hepatic and splenic margins not palpable. MUSCULOSKELETAL: Extremities without clubbing, cyanosis, or edema. No obvious deformities. Attention right lower leg with edema of the lower leg and foot also right foot with medial erythema large plantar diabetic ulcer 60 m x 6 cm without purulent drainage and amputation of the right third toe attention to the right second toe shows mild erythema edema and superficial abrasion/early ulceration of the plantar surface of the distal toe no eschar or scab noted no drainage. NEUROLOGICAL: Awake and alert. No obvious cranial nerve deficits. Motor grossly within normal limits. Five out of 5 muscle strength in the arms and legs. Normal speech. PSYCHIATRIC: Appropriate mood and affect; insight and judgment normal. Data Data Last Documented VS Vital Signs Date Time Temp Pulse Resp B/P Pulse Ox O2 Delivery O2 Flow Rate FiO2 01/08/17 23:56 87 18 118/82 98 Room Air 01/08/17 21:41 98.5 Orders Foot, Complete ([id number]) (01/08/17 ) Us Leg Venous Doppler (01/08/17 ) ^ Saline Lock (01/08/17 22:05) Clindamycin Inj (Cleocin Inj) (01/08/17 22:15) MDM Medical Decision Making Medical Screen Exam Complete: Yes Emergency Medical Condition: Yes Medical Record Reviewed: Yes Interpretation(s) Last Impressions Foot X-Ray 01/08/17 0000 Signed Impressions: Service Date/Time: Sunday, January 08, 2017 21:00 - CONCLUSION: Chronic change of the feet as described above with some soft-tissue swelling. These findings were present on the prior exam and appear relatively unchanged. Collin Harding MD US RLE: FINDINGS: There is normal compressibility of the deep venous system from the inguinal region to the proximal calf. No echogenic clot is seen in the lumen of the common femoral, femoral, popliteal, and posterior tibial veins. There is a normal response of the venous system to proximal and distal augmentation and respiration. There is a enlarged 4.3 x 5.7 x 1.5 cm suspected lymph node in the right inguinal region. CONCLUSION: 1. No DVT. 2. Suspected large lymph node in the right inguinal region. Collin Harding MD on January 08, 2017 at 22:39 Board Certified Radiologist. This report was verified electronically. Differential Diagnosis Dependent edema, DVT, cellulitis, infected diabetic foot ulcer, diabetic toe, osteomyelitis Narrative Course X-ray of the right foot ordered along with ultrasound of the right lower extremity. Patient has just completed a seven-day course of amoxicillin for localized infection of the right second toe may require additional 5 day course of antibiotic for complete coverage however in the interim will evaluate for gross bony abnormality by plain film imaging also to evaluate for possible fracture as patient has diabetic neuropathy may not be aware of specific injury to the toe as well as ultrasound for evaluation of new right lower extremity edema. CBC bmp specimens collected clindamycin 900 mg ivpb administered. Patient is aware of imaging and ultrasound results in stable for outpatient management with prescription for Bactrim and clindamycin as well as encouraged to keep appointment as scheduled with [employer] business analyst on Sunday. Diagnosis Primary Impression: Ulcer of toe of right foot Qualified Code: L97.511 - Ulcer of toe of right foot, limited to breakdown of skin Additional Impressions: Diabetic foot ulcer Dependent edema Referrals: D[facility] Puller 2 days Patient Instructions: General Instructions Additional Instructions: Follow-up with your sap [employer] business analyst on Sunday Return to the emergency department for any concerns or change in condition Continue current medications as presently prescribed Monitor temperature for fever take acetaminophen as needed for fever 100.4F or greater Elevate right lower extremity Keep wound site clean and dry Complete course of antibiotic as prescribed Med/Other Pt SpecificInfo: Prescription(s) given Scripts Sulfamethoxazole-Trimethoprim (Bactrim DS)800-160 Mg Tab1 Tab PO BID #14 TAB Ref 0 Prov:Celi Carlos MD 01/08/17 Clindamycin 150 Mg [id number] Mg PO Q6H 7 Days Ref 0 Prov:Celi Carlos MD 01/08/17 Disposition: 01 DISCHARGE HOME Condition: Stable Celi Carlos MD Jan 08, 2017 20:59
[2017-01-08 21:41] VITALS: BP 128/58; PULSE 94; RESP 18; TEMP 98.5; O2SAT 100
--- NOTE | 2017-01-08 21:49 | RADHPO ---
EXAM DATE/TIME: 01/08/2017 21:00 [facility] COMPARISON: FOOT RIGHT COMPLETE ([id number]), December 01, 2016, 0:19. INDICATIONS : Right foot pain and swelling. MEDICAL HISTORY : Diabetes mellitus type II. SURGICAL HISTORY : Right foot, third digit amputation. ENCOUNTER: Initial ACUITY: 2 days PAIN SCORE: 5/10 LOCATION: Right foot. FINDINGS: There is absence of the third digit. There appears to be post surgical resection of the distal aspect of the first proximal phalanx. An area of acute bony destruction is not clearly identified. There is soft-tissue swelling at the first digit. There is some soft tissue swelling identified at the lan dfoot anteriorly. CONCLUSION: Chronic change of the feet as described above with some soft-tissue swelling. These findings were present on the prior exam and appear relatively unchanged. Collin Harding MD on January 08, 2017 at 21:32 Board Certified Radiologist. This report was verified electronically.
[2017-01-08] MEDS ORDERED: CLINDAMYCIN INJ 900 MG in SODIUM CHLORIDE 0.9% INJ 100 ML IV ONE (22:15)
--- NOTE | 2017-01-08 22:41 | RADHPO ---
EXAM DATE/TIME: 01/08/2017 22:15 [facility] COMPARISON: US LEG RIGHT VENOUS DOPPLER, November 25, 2016, 8:41. INDICATIONS : Thrombosis. Right leg pain. MEDICAL HISTORY : Hypertension. Chronic infection right foot. Diabetic. Cardiovascular problems. SURGICAL HISTORY : Cardoac ablation. ENCOUNTER: Initial ACUITY: 3 days PAIN SCORE: 7/10 LOCATION: Right leg. TECHNIQUE: Venous ultrasound of the leg was performed from the inguinal ligament to the proximal calf. Real-angelika e, color Doppler and spectral tracing, compression and augmentation techniques were used. FINDINGS: There is normal compressibility of the deep venous system from the inguinal region to the proximal ca lf. No echogenic clot is seen in the lumen of the common femoral, femoral, popliteal, and posterior tibial veins. There is a normal response of the venous system to proximal and distal augmentation an d respiration. There is a enlarged 4.3 x 5.7 x 1.5 cm suspected lymph node in the right inguinal region. CONCLUSION: 1. No DVT. 2. Suspected large lymph node in the right inguinal region. Collin Harding MD on January 08, 2017 at 22:39 Board Certified Radiologist. This report was verified electronically.
[2017-01-08] MEDS ORDERED: BACT800T5 PO (22:48)
[2017-01-08] MEDS ORDERED: CLIN1CAP5 PO (22:48)
[2017-01-08 23:56] VITALS: BP 118/82; PULSE 87; RESP 18; O2SAT 98
== END 2017-01-08 23:57 | disposition home or self-care (01) ==
LOC: PHED 20:07
DX: E11.621 Type 2 diabetes mellitus with foot ulcer (principal); L97.511 Non-pressure chronic ulcer of other part of right foot limited to breakdown of skin; E11.40 Type 2 diabetes mellitus with diabetic neuropathy, unspecified; I48.91 Unspecified atrial fibrillation; I10 Essential (primary) hypertension; E78.5 Hyperlipidemia, unspecified; Z79.4 Long term (current) use of insulin; Z79.01 Long term (current) use of anticoagulants; Z86.59 Personal history of other mental and behavioral disorders; Z87.19 Personal history of other diseases of the digestive system; Z87.2 Personal history of diseases of the skin and subcutaneous tissue
CPT/HCPCS: 73630; 93971; 96365

== ENCOUNTER 2017-02-02 23:20 | Inpatient (IN) | payer OTHER ==
[~2017-02-02] VITALS: Ht 200.7 cm; Wt 98.0 kg
[~2017-02-02 23:20] MED LIST changes: +BACT800T5 PO; +CLIN1CAP5 PO
[2017-02-02 23:27] VITALS: BP 160/81; PULSE 92; RESP 18; TEMP 98.6; O2SAT 96
[2017-02-03] VITALS (8 sets, daily range): BP systolic 154–182; BP diastolic 71–94; PULSE 77–103; RESP 18–20; TEMP 96.5–98.7; O2SAT 96–100
[2017-02-03] MEDS ORDERED: oxyCODONE/ACETAMINOPHEN 5 MG/325 MG TAB PO ONE
--- NOTE | 2017-02-03 00:28 | PD ---
HPI Chief Complaint: Pain: Acute or Chronic Time Seen by Provider: 23:40 Travel History International Travel<30 days: No Contact w/Intl Traveler<30days: No Traveled to known affect area: No History of Present Illness HPI So 56 year-old man who presents to the emergency department complaining of coughing up blood since today. States bright red bloody sputum with a little bit of actual sputum as well. He has not had previous problems before. He is on Eliquis. He is also taking clindamycin for chronic infection in his right foot. He follows with podiatry. No chest pain. No fever but he has had some chills. History Past Medical History Narrative Medical A. fib, on Eliquis Diabetes Hypertension GERD Tetanus Vaccination: < 5 Years Social History Alcohol Use: No Tobacco Use: No Allergies-Medications (Allergen,Severity, Reaction): Coded Allergies: *MDRO Multi-Drug Resistant Organism (Verified Adverse Reaction, Unknown, MRSA, 02/02/17) 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, toe-03/2016 Reported Meds & Prescriptions Reported Meds & Active Scripts Active Clindamycin (Clindamycin HCl) 150 Mg Cap 300 Mg PO Q6H 7 Days Oxycodone (Oxycodone HCl) 5 Mg Cap 5 Mg PO Q8H PRN Reported Ramipril 5 Mg Cap 2.5 Mg PO BID Diltiazem ER 24 HR 240 Mg Brock 240 Mg PO DAILY Eliquis (Apixaban) 5 Mg Tab 5 Mg PO BID Lantus Inj (Insulin Glargine) 1,000 Unit/10 Ml Vial 10 Units SQ HS Humalog Inj (Insulin Human Lispro) 1,000 Unit/10 Ml Vial 5-25 Units SQ ACHS Max dose at bedtime:( )units; sugars < 70,(0)units; sugars 150-199,(5)units; sugars 200-249,(10)units; sugars 250-299,(15)units; sugars 300-349,(20)units; sugars more than 349,(25)units. Furosemide 20 Mg Tab 20 Mg PO BID Protonix (Pantoprazole Sodium) 40 Mg Tab 40 Mg PO DAILY Review of Systems Except as stated in HPI: all other systems reviewed are Neg Physical Exam Narrative GENERAL: 56 year-old man, no acute distress. SKIN: Warm and dry. CARDIOVASCULAR: Irregular. No murmurs. RESPIRATORY: No accessory muscle use. Clear to auscultation. Breath sounds equal bilaterally. GASTROINTESTINAL: Abdomen soft, non-tender, nondistended. Hepatic and splenic margins not palpable. MUSCULOSKELETAL: No obvious deformities. Asymmetric swelling in the right lower extremity. Ulcer on the bottom of the right foot. Small ulcer on the right second toe. NEUROLOGICAL: Awake and alert. No obvious cranial nerve deficits. Motor grossly within normal limits. Normal speech. PSYCHIATRIC: Appropriate mood and affect; insight and judgment normal. Data Data Last Documented VS Vital Signs Date Time Temp Pulse Resp B/P Pulse Ox O2 Delivery O2 Flow Rate FiO2 02/03/17 02:36 88 18 159/78 96 Room Air 02/03/17 00:01 98.6 Orders Chest, Pa & Lat (02/02/17 ) Oxycodone-Acetamin 5-325 Mg (Percocet (02/03/17 00:00) Complete Blood Count With Diff (02/03/17 02:15) Comprehensive Metabolic Panel (02/03/17 02:15) Westergren Sedimentation Rate (02/03/17 02:15) C-Reactive Protein (Crp) (02/03/17 02:15) Sodium Chlor 0.9% 1000 Ml Inj (Ns 1000 M (02/03/17 02:15) Hydromorphone Pf Inj (Dilaudid Pf Inj) (02/03/17 04:15) Isolation 08,20 (02/03/17 04:14) Admit Order (Ed Use Only) (02/03/17 ) Ceftriaxone Inj (Rocephin Inj) (02/03/17 04:15) Azithromycin Inj (Zithromax Inj) (02/03/17 04:15) Labs Laboratory Tests Test 02/03/17 02:30 White Blood Count 14.9 TH/MM3 Red Blood Count 3.51 MIL/MM3 Hemoglobin 10.6 GM/DL Hematocrit 30.7 % Mean Corpuscular Volume 87.5 FL Mean Corpuscular Hemoglobin 30.2 PG Mean Corpuscular Hemoglobin 34.5 % Concent Red Cell Distribution Width 12.0 % Platelet Count 336 TH/MM3 Mean Platelet Volume 6.5 FL Neutrophils (%) (Auto) 78.6 % Lymphocytes (%) (Auto) 13.9 % Monocytes (%) (Auto) 5.7 % Eosinophils (%) (Auto) 1.4 % Basophils (%) (Auto) 0.4 % Neutrophils # (Auto) 11.7 TH/MM3 Lymphocytes # (Auto) 2.1 TH/MM3 Monocytes # (Auto) 0.8 TH/MM3 Eosinophils # (Auto) 0.2 TH/MM3 Basophils # (Auto) 0.1 TH/MM3 CBC Comment DIFF FINAL Differential Comment Erythrocyte Sedimentation Rate 1 mm/hr Sodium Level 139 MEQ/L Potassium Level 4.7 MEQ/L Chloride Level 102 MEQ/L Carbon Dioxide Level 32.1 MEQ/L Anion Gap 5 MEQ/L Calcium Level 8.7 MG/DL C-Reactive Protein 2.07 MG/DL Albumin 2.9 GM/DL MDM Medical Decision Making Medical Screen Exam Complete: Yes Emergency Medical Condition: Yes Interpretation(s) LABS: CBC remarkable for mild leukocytosis, mild anemia Sed rate 1 CMP, CO2 32.1, multiple by still pending CRP 2.07 Chest x-ray: New non- consolidative infiltrate in the right upper lung. Differential Diagnosis Mass, bronchitis, pneumonia, other Narrative Course Medical decision making Is a 56 year-old man, multiple ED visits, here with hemoptysis. No hemoptysis NEG. Looks well. We'll check x-ray. He has some chronic swelling in his right leg. Ultrasound was negative for DVT us a month ago. He states he's been compliant with his Eliquis. FINAL: Is a 56-year-old man with a new non-consolidative infiltrate in his right upper lung in the setting of hemoptysis. Patient's difficult to get a specific history on his he tends to focus on the pain in his leg. He endorses night sweats for the past week or so. This infiltrate may be just related to some of hemoptysis, nonetheless I think it reasonable to watch the patient overnight. He has risk factors for tuberculosis, with hemoptysis night sweats and an upper lobe infiltrate, will place on isolation. I spoke with the [facility] hospitalist, will admit patient. Diagnosis Primary Impression: Hemoptysis Additional Impression: Right upper lobe pneumonia Qualified Code: J18.1 - Pneumonia of right upper lobe due to infectious organism Admitting Information Admitting Physician Requests: Admit Additional Instructions: Continue medications. Follow up as an outpatient on Sunday for lab work. Return to the emergency department for any new or worsening symptoms. Med/Other Pt SpecificInfo: No Change to Meds Disposition: 01 DISCHARGE HOME Condition: Stable Leon Gan MD Feb 03, 2017 00:27
--- NOTE | 2017-02-03 00:49 | RADHPO ---
EXAM DATE/TIME: 02/03/2017 00:01 [facility] COMPARISON: CHEST PA & LAT, February 09, 2015, 17:18. INDICATIONS : Short of breath with a cough. MEDICAL HISTORY : Cardiovascular disease. SURGICAL HISTORY : None. ENCOUNTER: Initial ACUITY: 1 day PAIN SCORE: 4/10 LOCATION: Bilateral chest FINDINGS: There is a new ill-defined opacity in the central/upper right lung characteristic of an infiltrate. No evidence of pleural effusion. Left lung is clear. The heart is normal in size. Osseous structur es are grossly intact. CONCLUSION: There is a non-consolidative infiltrate in the right upper lung. This is new when compared to prior chest x-ray in January 2015. Recommend followup films to complete radiographic resolution. Trenton Dolan MD on February 03, 2017 at 0:46 Board Certified Radiologist. This report was verified electronically.
[2017-02-03] MEDS ORDERED: SODIUM CHLOR 0.9% 1000 ML INJ 1,000 ML IV SCH (02:15)
[2017-02-03 02:48] LABS: AUTOMATED NEUTROPHIL # 11.7 TH/MM3 (1.8-7.7); BASOPHIL # 0.1 TH/MM3 (0-0.2); BASOPHIL % 0.4 % (0.0-2.0); EOSINOPHIL # 0.2 TH/MM3 (0-0.4); EOSINOPHIL % 1.4 % (0.0-4.0); HEMATOCRIT 30.7 % (39.0-51.0); HEMO FLAGS DIFF FINAL; LYMPH % 13.9 % (9.0-44.0); LYMPHOCYTE # 2.1 TH/MM3 (1.0-4.8); MEAN CELL VOLUME 87.5 FL (80.0-100.0); MEAN CORPUSCULAR HEMOGLOBIN 30.2 PG (27.0-34.0); MEAN CORPUSCULAR HGB CONC 34.5 % (32.0-36.0); MONO % 5.7 % (0.0-8.0); NEUT % 78.6 % (16.0-70.0); PLATELET COUNT 336 TH/MM3 (150-450); RED BLOOD COUNT 3.51 MIL/MM3 (4.50-5.90); WHITE BLOOD COUNT 14.9 TH/MM3 (4.0-11.0)
[2017-02-03 02:58] LABS: CHLORIDE 102 MEQ/L (98-107); POTASSIUM 4.7 MEQ/L (3.5-5.1); SODIUM (NA) 139 MEQ/L (136-145)
[2017-02-03 03:02] LABS: ANION GAP 5 MEQ/L (5-15); BICARBONATE 32.1 MEQ/L (21.0-32.0)
[2017-02-03] MEDS ORDERED: AZITHROMYCIN INJ 500 MG in SODIUM CHLOR 0.9% 250 ML INJ 250 ML IV ONE (04:15)
[2017-02-03] MEDS ORDERED: cefTRIAXone INJ 1,000 MG in SODIUM CHLORIDE 0.9% INJ 100 ML IV ONE (04:15)
[2017-02-03] MEDS ORDERED: HYDROmorphone HCL PF 1 MG/ML VIAL IV PUSH ONE (04:15)
[2017-02-03] MEDS ORDERED: SODIUM CHLORIDE 0.9% FLUSH 5 ML FLUSH FLUSH PRN (04:30)
[2017-02-03] MEDS ORDERED: NALOXONE HCL 0.4 MG/ML AMP IV PRN (04:30)
[2017-02-03] MEDS ORDERED: ACETAMINOPHEN 325 MG TAB PO PRN (04:30)
[2017-02-03 04:31] LABS: ALKALINE PHOSPHATASE 115 U/L (45-117); ALT (GPT) 18 U/L (12-78); AST (GOT) 14 U/L (15-37); BLOOD UREA NITROGEN 13 MG/DL (7-18); GLOMERULAR FILTRATION RATE 115 ML/MIN (>89); TOTAL BILIRUBIN ADULT 0.2 MG/DL (0.2-1.0)
[2017-02-03] MEDS: SODIUM CHLOR 0.9% 1000 ML INJ 1,000 ML IV SCH ×2 (04:56→14:25)
[2017-02-03 05:22] LABS: BLOOD, URINE NEG (NEG); GLUCOSE,URINE NEG (NEG); KETONE, URINE NEG (NEG); NITRITE,URINE NEG (NEG)
[2017-02-03 05:36] LABS: METHOD OF COLLECTION CLEAN CATCH; SQUAMOUS EPITHELIAL CELL URINE 0-2 /hpf (0-5); URINE COLOR YELLOW (YELLW/STRAW); WBC, URINE 0-2 /hpf (0-5)
[2017-02-03 05:37] LABS: COMMENT (UR) CULT NOT INDICATED; CULTURE IF INDICATED CULT NOT INDICATED; MUCUS URINE RARE /lpf (OCC)
[2017-02-03] MEDS: SODIUM CHLORIDE 0.9% FLUSH 5 ML FLUSH FLUSH SCH ×2 (09:00→21:23)
[2017-02-03] MEDS ORDERED: GLUCAGON 1 MG/ML VIAL OTHER PRN ×2 (10:15→20:30)
[2017-02-03] MEDS ORDERED: DEXTROSE 50% IN WATER 50 ML VIAL(D50) IV PUSH PRN ×2 (10:15→20:30)
[2017-02-03] MEDS ORDERED: OXYC-426 PO (11:13)
--- NOTE | 2017-02-03 11:39 | MH ---
DATE OF ADMISSION: 02/03/[address] Fernando Groves ATTENDING PHYSICIAN Dr. Toña Salomon. CHIEF COMPLAINT Coughing and bright red bloody sputum. HISTORY OF PRESENT ILLNESS The patient is a [id number]-male who presented to the ER on 02/02/2017 with complaints of coughing up blood since one day. Per patient, he noticed bright red bloody sputum with a little bit of actual sputum as well with complaint of wheezing. The patient is on Eliquis. He is also taking clindamycin for chronic infection in his right foot, he follows with Podiatry. Denies any chest pain, denies any fever, does complain of some chills, night sweats PAST MEDICAL HISTORY 1. Atrial fibrillation. 2. Diabetes mellitus. 3. Hypertension. 4. Gastroesophageal reflux disease. 5. Tetanus vaccine less than five years ago. SOCIAL HISTORY Denies any alcohol or tobacco use. PAST SURGICAL HISTORY Status post amputation of right third toe. FAMILY HISTORY Significant for asbestosis in father. ALLERGIES NO KNOWN ALLERGIES. ACTIVE MEDICATIONS 1. Clindamycin 150 mg, 300 mg p.o. q.6 hours. 2. Oxycodone 5 mg p.o. q.8 hours p.r.n. 3. Ramipril 2.5 mg p.o. b.i.d. 4. Diltiazem ER 240 mg p.o. q.daily. 5. Eliquis 5 mg p.o. b.i.d. 6. Lantus insulin 10 units q.h.s. 7. Humalog sliding scale insulin. 8. Lasix 20 mg p.o. b.i.d. 9. Protonix 40 mg p.o. q.daily. REVIEW OF SYSTEMS GENERAL: Denies any weakness or fatigue. HEENT: Denies any headache, eye, ear, nose or throat pain. Denies any blurring of vision. CARDIOVASCULAR: Denies any chest pain or palpitations. RESPIRATORY: Does complain of cough and wheezing and bloody sputum. GASTROINTESTINAL: Denies any abdominal pain, nausea, vomiting or diarrhea. MUSCULOSKELETAL: Does complain of pain in his left foot. NEUROLOGIC: No seizures. No focal deficits. PSYCHIATRIC: No anxiety or depression. PHYSICAL EXAMINATION GENERAL: A [id number]-male who is sitting in chair comfortably, in no acute distress. SKIN: Skin is warm and dry. HEENT: Head is atraumatic. Pupils are equal, round and reactive to light and accommodation. Extraocular movements are intact. NECK: Supple. No JVD. Trachea midline. No lymphadenopathy. LUNGS: Clear to auscultation bilaterally. No accessory use of muscles. Occasional rhonchi. No rales. CARDIOVASCULAR: Irregularly irregular. No murmur, no gallop. ABDOMEN: Soft, nontender, nondistended. Bowel sounds heard in all four quadrants. No organomegaly. MUSCULOSKELETAL: Asymmetric swelling in the right lower extremity. Ulcer on the bottom of the right foot. Small ulcer on the right second toe. NEUROLOGIC: Awake and alert. No obvious cranial nerve deficits. Motor grossly within normal limits. Normal speech. PSYCHIATRIC: Appropriate mood and affect. Insight and judgment normal. VITAL SIGNS: Blood pressure is 159/78, respiratory rate 20, pulse is 88, pulse ox is 96% on room air. LABORATORY DATA WBC 14.9, hemoglobin 10.6, hematocrit 30.7, platelets 336,000. BUN 13, creatinine 0.71, potassium 4.7, random glucose is 44. UA is clean. IMAGING Chest x-ray shows a non-consolidated infiltrate in the right upper lung, this is new when compared to prior chest x-ray in January,. DIAGNOSTIC IMPRESSION 1. Right upper lobe pneumonia. 2. Abnormal CXR. 3. Hemoptysis. 3. Diabetes mellitus type 2. 4. Right foot ulcer. 5. Hypertension. 6. Atrial fibrillation. 7. Gastroesophageal reflux disease. 8. Chronic pain. 9. Chills/night sweats. PLAN 1. We will admit the patient. 2. We will start the patient on IV Rocephin and azithromycin. 3. We will also do blood cultures and sputum culture. 4. We will keep the patient in insolation as patient needs to be ruled out for TB due to hsi symptoms of cough/ hemoptysis/night sweats/chills/ 5. We will also request a PPD. 6. We will do pain management with oxycodone. 7. We will hold the insulin as the patient's blood sugar is low. 8. We will request fingersticks q.a.c. and h.s. and restart insulin as needed. 9. Start the patient on sliding scale if needed. 10.Request CT chest fur further eval of non-consolidated infiltrate in the right upper lung. 11.Request pulmonary consult. 10. We will continue home medications as appropriate. 11. DVT prophylaxis with Eliquis. PUD prophylaxis with Protonix. 12. We will monitor the patient closely during the hospital stay. 13. Further management depends upon the hospital course. The patient has presented with hemoptysis and cough. Needs a complete evaluation to rule out tuberculosis. Will also need pulmonary consult and bronchoscopy. The patient will need an inpatient stay of minimum three midnights. Anticipate dc to home when stable. Fernando Groves MD [facility]
[2017-02-03] MEDS ORDERED: TUBERCULIN, PPD 5 UNITS/0.1 ML SYRINGE ID ONE (14:45)
[2017-02-03] MEDS ORDERED: RAMIPRIL 2.5 MG CAP PO ONE (15:30)
[2017-02-03] MEDS ORDERED: DILTIAZEM-CD 240 MG CAP ER PO ONE (15:30)
[2017-02-03] MEDS ORDERED: OXYCODONE 30 MG PO SCH (16:00)
[2017-02-03] MEDS: MEDIUM DOSE INSULIN NOVOLOG SUPPLEMENTAL SCALE SQ SCH (21:00)
[2017-02-03] MEDS: FUROSEMIDE 20 MG TAB PO SCH (21:24)
[2017-02-03] MEDS: APIXABAN 5 MG TABLET PO SCH (21:24)
[2017-02-03] MEDS: RAMIPRIL 2.5 MG CAP PO SCH (21:24)
[2017-02-04] VITALS: BP 151/77; PULSE 83; RESP 18; TEMP 98.8; O2SAT 96
[2017-02-04] MEDS ORDERED: AZITHROMYCIN INJ 500 MG in SODIUM CHLOR 0.9% 250 ML INJ 250 ML IV SCH (04:00)
[2017-02-04] MEDS ORDERED: cefTRIAXone INJ 1,000 MG in SODIUM CHLORIDE 0.9% INJ 100 ML IV SCH ×2 (04:00→16:45)
[2017-02-04] MEDS: MEDIUM DOSE INSULIN NOVOLOG SUPPLEMENTAL SCALE SQ SCH ×4 (06:31→21:00)
[2017-02-04 08:00] VITALS: BP 150/80; PULSE 78; RESP 20; TEMP 97.7; O2SAT 99
--- NOTE | 2017-02-04 08:27 | HHI.PR ---
Subjective Remarks 56yr old male seen and examined today. Lying in bed comfortably in NAD. Requesting for more pain meds. No acute events overnight. Objective Objective Results - Vital Signs Date Time Temp Pulse Resp B/P Pulse Ox O2 Delivery O2 Flow Rate FiO2 02/04/17 00:00 98.8 83 18 151/77 96 02/03/17 20:00 96.5 85 18 166/83 98 02/03/17 16:00 98.7 98 20 182/90 100 02/03/17 12:00 97.9 95 20 179/94 98 I/O 02/03/17 02/03/17 02/03/17 02/04/17 02/04/17 02/04/17 07:00 15:00 23:00 07:00 15:00 23:00 Intake Total 1220 ml 240 ml 480 ml Balance 1220 ml 240 ml 480 ml Intake Oral 1220 ml 240 ml 480 ml # Voids 0 6 3 6 # Bowel Movements 7 1 2 Result Diagram: 02/03/17 0230 02/03/17 0230 Other Results Date/Time Procedure Status Source Growth 02/03/17 13:10 Acid Fast Stain Received Sputum Expectorated Sputum Pending 02/03/17 13:10 Mycobacterial Culture Received Sputum Expectorated Sputum Pending 02/03/17 05:00 Aerobic Blood Culture Received Blood Arterial Line Pending 02/03/17 05:00 Anaerobic Blood Culture Received Blood Arterial Line Pending ROS General: No: Fatigue, Weakness, Other HEENT: No: Sore Throat, Dysphagia, Other Cardiac: No: Chest Pain, Edema, Palpitations, Other Pulmonary: No: Cough, SOB, Wheezing, Other GI: No: Abdominal Pain, BM, Diarrhea, N/V, Other /DOCUMENT ANALYST: No: Dysuria, Urgency, Other Neuro/MS: Other (pain in right leg/foot.) Psych: No: Anxiety, Depression, Other Skin: No: Itching, Rash, Other Physical Exam Physical Exam PHYSICAL EXAMINATION GENERAL: This is a well-developed, well-nourished male who appears to be in no acute distress. He is alert and awake. HEAD: Normocephalic without any lesion or mass noted. EYES: Perrla, Normal eye movement, no icterus. OROPHARYNGEAL: Oropharynx without erythema or edema. MOUTH/THROAT: Buccal mucosa is moist. NECK: Supple. CARDIAC: Regular rhythm, regular rate, S1 and S2 are heard. LUNGS: Clear to auscultation bilaterally. ABDOMEN: Soft, nontender, no organomegaly or masses. Bowel sounds are heard in all four quadrants. No rebound. No guarding. EXTREMITIES: Right LE: swelling, s/p amputation of 3rd toe. NEUROLOGICAL: No focal deficits. SKIN:Warm and moist PSYCH: Mood and affect appropriate A/P Assessment and Plan Assessment: 1. Right upper lobe pneumonia. 2. Hemoptysis. 3. Diabetes mellitus type 2. 4. Right foot ulcer. 5. Hypertension. 6. Atrial fibrillation. 7. Gastroesophageal reflux disease. 8. opioid seeking. PLAN On IV Rocephin and azithromycin. Blood cultures and sputum culture. In isolation. PPD pending. . Pain management with oxycodone. fingersticks q.a.c. and h.s. SSI home meds as appropriate. DVT prophylaxis with Eliquis. PUD prophylaxis with Protonix. discussed with pt/Rn. Fernando Groves MD Feb 04, 2017 08:27
[2017-02-04] MEDS: SODIUM CHLORIDE 0.9% FLUSH 5 ML FLUSH FLUSH SCH ×2 (08:38→21:00)
[2017-02-04] MEDS: RAMIPRIL 2.5 MG CAP PO SCH ×2 (08:42→21:00)
[2017-02-04] MEDS: DILTIAZEM-CD 240 MG CAP ER PO SCH (08:42)
[2017-02-04] MEDS: FUROSEMIDE 20 MG TAB PO SCH ×2 (08:43→21:00)
[2017-02-04] MEDS: APIXABAN 5 MG TABLET PO SCH (08:43)
[2017-02-04] MEDS: PANTOPRAZOLE SOD 40 MG DELAYED RELEASE TAB PO SCH (08:43)
[2017-02-04 08:47] LABS: AUTOMATED NEUTROPHIL # 11.3 TH/MM3 (1.8-7.7); BASOPHIL % 0.2 % (0.0-2.0); EOSINOPHIL # 0.2 TH/MM3 (0-0.4); EOSINOPHIL % 1.3 % (0.0-4.0); HEMATOCRIT 31.8 % (39.0-51.0); HEMO FLAGS DIFF FINAL; LYMPH % 8.7 % (9.0-44.0); LYMPHOCYTE # 1.2 TH/MM3 (1.0-4.8); MEAN CELL VOLUME 88.2 FL (80.0-100.0); MEAN CORPUSCULAR HEMOGLOBIN 29.4 PG (27.0-34.0); MEAN CORPUSCULAR HGB CONC 33.3 % (32.0-36.0); MONO % 4.2 % (0.0-8.0); NEUT % 85.6 % (16.0-70.0); PLATELET COUNT 341 TH/MM3 (150-450); RED BLOOD COUNT 3.61 MIL/MM3 (4.50-5.90); RED CELL DISTRIBUTION WIDTH 11.9 % (11.6-17.2); WHITE BLOOD COUNT 13.3 TH/MM3 (4.0-11.0)
[2017-02-04 10:10] LABS: BICARBONATE 31.5 MEQ/L (21.0-32.0)
[2017-02-04 10:20] LABS: HEMOGLOBIN A1a 1.2 %; HEMOGLOBIN A1b 1.6 %; HEMOGLOBIN Ao 84.4 %; HEMOGLOBIN LA1C 1.3 %; HEMOGLOBIN P3 3.8 %
[2017-02-04 12:00] VITALS: BP 176/86; PULSE 84; RESP 20; TEMP 97.7; O2SAT 97
[2017-02-04] MEDS: SKIN TEST RESULT OTHER SCH (14:45)
[2017-02-04 16:00] VITALS: BP 150/83; PULSE 78; RESP 20; TEMP 97.5; O2SAT 98
[2017-02-04] MEDS ORDERED: GENTAMICIN SULFATE 0.1% CREAM 15 GM TOP PRN (16:45)
[2017-02-04] MEDS ORDERED: IOHEXOL 350 MG/ML 10 ML VIAL (for RAD DIAG) IV ONE (16:51)
[2017-02-04 16:54] LABS: APTT (PATIENT) 31.5 SEC (24.3-30.1); PROTHROMBIN TIME - PATIENT 11.1 SEC (9.8-11.6)
[2017-02-04] MEDS: AZITHROMYCIN INJ 500 MG in SODIUM CHLOR 0.9% 250 ML INJ 250 ML IV SCH (16:57)
[2017-02-04] MEDS: cefTRIAXone INJ 1,000 MG in SODIUM CHLORIDE 0.9% INJ 100 ML IV SCH (16:58)
--- NOTE | 2017-02-04 17:08 | RADHPO ---
EXAM DATE/TIME: 02/04/2017 16:25 [facility] COMPARISON: CHEST PA & LAT, February 03, 2017, 0:01. INDICATIONS : Evaluate for Penumonia vs infiltrate, abnormal chest x ray. IV CONTRAST: 65 cc Omnipaque 350 (iohexol) IV RADIATION DOSE: 19.57 CTDIvol (mGy) MEDICAL HISTORY : Diabetes mellitus type 1. Hypertension. SURGICAL HISTORY : None. ENCOUNTER: Initial ACUITY: 1 day PAIN SCALE: 5/10 LOCATION: chest TECHNIQUE: Volumetric scanning of the chest was performed. Using automated exposure control and adjustment of t he mA and/or kV according to patient size, radiation dose was kept as low as reasonably achievable to obtain optimal diagnostic quality images. FINDINGS: Groundglass and nodular consolidation seen in the right upper lobe posterior segment extending from t he hilum to the lateral pleural surface. There is very focal involvement in the adjacent superior seg ment of the right upper lobe and also an approximately 1 cm area of similar nodular groundglass conso lidation of the apical segment of the right upper lobe. The lungs are otherwise clear. No pleural eff usion. No pneumothorax. Scattered mediastinal lymph nodes measuring up to 1 cm in greatest short axis dimension noted. Heart size normal. Coronary artery calcification noted both right and left-sided. CONCLUSION: Groundglass and nodular infiltrate in the right mid and upper lung as above. This is most likely infe ctious or inflammatory. Collin Wright MD on February 04, 2017 at 17:02 Board Certified Radiologist. This report was verified electronically.
[2017-02-04] MEDS: RESP: ALBUTEROL 2.5 MG/IPRATROPIUM 0.5 MG NEB (SCH) NEB (20:00)
--- NOTE | 2017-02-04 20:34 | MB ---
cc: PRADEEP BANKS DATE OF CONSULTATION 02/04/2017 CONSULTATIONS Hemoptysis and cough with a right lung infiltrate. HISTORY OF THE PRESENT ILLNESS This is a 56-year-old white male, a known diabetic with a history of cough was bringing up bloody sputum this week and had some chest tightness in his right chest associated with some wheezing. The patient apparently has been on antibiotics due to some infection in his foot and is being followed by the clinical informatics director who had operated on him on several occasions. The patient, however, was not running any fever and had no night sweats or chills. He came to the emergency room since he was having chest discomfort and cough with bright red bloody mucus. A chest x-ray done upon admission showed a faint infiltrate in the right lung. The patient has been sent for a CT of the chest which shows an infiltrate in the right middle as well as right upper lobe area with some nodularity. There is no cavitation. TB test was done. He admits to having had some weight loss over the past 2 months. PAST MEDICAL HISTORY Past history includes: 1. Diabetes mellitus type 2. 2. History of atrial fibrillation on Eliquis. 3. History of hypertension. 4. History of gastroesophageal reflux. 5. Chronic right foot ulcer, debrided several times by the clinical informatics director. 6. Also amputated right third toe. 7. He has had previous partial resection of the right big toe. SOCIAL HISTORY Habits, the patient did not smoke but was exposed to secondhand smoke for many years. No significant alcohol use. He has a [employer] business. exposed to dust and possibly asbestos. ALLERGIES None listed. FAMILY HISTORY His father of mesothelioma and had asbestosis. Mother is in good health. One brother had cancer of the blood and there is a history of lung disease as well. MEDICATIONS 1. Diltiazem 240 mg daily. 2. Ramipril 2.5 milligrams twice a day. 3. Eliquis 5 mg b.i.d. 4. Lantus insulin 10 units at bedtime. 5. Humalog per sliding scale. 6. Lasix 20 mg b.i.d. 7. Protonix 40 mg a day. 8. Clindamycin 300 milligrams q.6h. ALLERGIES None known. REVIEW OF SYSTEMS The patient has lost weight. He has dizzy attacks. He has postnasal drip. He has cough and wheezing. He has epigastric distress and reflux. He has no urinary symptoms. No leg or calf muscle pains. He has joint pains, right foot pain and toe pain. He has no anxiety. No depression. The other system review is negative. PHYSICAL EXAMINATION GENERAL: This thinly built, middle-aged white male who is alert, in no acute distress. No clubbing or peripheral edema or lymphadenopathy. VITAL SIGNS: Blood pressure 138/80, pulse 78, respirations 20, temperature 98.2. HEENT: Head normocephalic. Pupils reactive and equal. Tongue moist. Throat was clear. Ears no inflammation. NECK: Supple. No bruits or thyroid enlargement or lymphadenopathy. CHEST: Equal movements with an increased AP diameter. Percussion note resonant throughout. Occasional crackles in the right mid and upper chest. HEART: The heart sounds are irregularly irregular, S1-S2, no murmur. ABDOMEN: Soft, benign. No masses or organomegaly or tenderness. EXTREMITIES: Right foot edema and leg edema. There is a 2.0-2.5 cm ulcer of the right foot on the underside with granulation tissue. Also dressing on his right second toe. Absence of third toe. The first toe is deformed from previous surgery. Peripheral pulses not well felt. Left foot has minimal edema. Reflexes 1+ with no gross motor deficits. NEUROLOGICAL: Cranial nerves grossly intact. RECTAL: Exam is deferred. IMPRESSION 1. Right mid and upper lung pneumonia. 2. Hemoptysis, rule out underlying malignancy versus atypical mycobacterial infection. 3. Diabetes mellitus type 2. 4. Hypertension. 5. Chronic right leg ulcer. 6. Peripheral neuropathy. PLAN The patient will be maintained on antibiotic coverage as ordered including Rocephin and Zithromax. Nebulized DuoNeb solution added q.i.d. We will also get a pulmonary function at the bedside. The patient will need a bronchoscopy to evaluate his hemoptysis and the right lung infiltrate. He will be scheduled for bronchoscopy since the Eliquis was put on hold today and we will have to wait 48 hours before doing the surgery. The patient will be moved to the [facility] for the procedure. Thank you Dr. Groves for this consultation. MD JORGE A Carlisle/PASCALE /4:50 PM /7:16 PM
[2017-02-04] MEDS: INSULIN DETEMIR 100 UNITS/ML VIAL SQ SCH (21:00)
[2017-02-05] VITALS: BP 129/74; PULSE 77; RESP 18; TEMP 98.5; O2SAT 98
[2017-02-05] MEDS: MEDIUM DOSE INSULIN NOVOLOG SUPPLEMENTAL SCALE SQ SCH ×4 (04:02→21:18)
[2017-02-05 05:29] VITALS: BP 122/69; PULSE 90; RESP 20; TEMP 97.8; O2SAT 96
[2017-02-05 08:00] VITALS: BP 152/82; PULSE 74; RESP 18; TEMP 97.8; O2SAT 96
[2017-02-05] MEDS: RESP: ALBUTEROL 2.5 MG/IPRATROPIUM 0.5 MG NEB (SCH) NEB ×3 (08:00→20:08)
[2017-02-05] MEDS: DILTIAZEM-CD 240 MG CAP ER PO SCH (09:44)
[2017-02-05] MEDS: SODIUM CHLORIDE 0.9% FLUSH 5 ML FLUSH FLUSH SCH ×2 (09:45→21:00)
[2017-02-05] MEDS: PANTOPRAZOLE SOD 40 MG DELAYED RELEASE TAB PO SCH (09:45)
[2017-02-05] MEDS: RAMIPRIL 2.5 MG CAP PO SCH ×2 (09:45→21:19)
[2017-02-05] MEDS: FUROSEMIDE 20 MG TAB PO SCH ×2 (09:45→21:19)
[2017-02-05 12:00] VITALS: BP 146/78; PULSE 77; RESP 19; TEMP 97.4; O2SAT 96
[2017-02-05] MEDS: SKIN TEST RESULT OTHER SCH (14:45)
--- NOTE | 2017-02-05 15:00 | HHI.PR ---
Subjective Remarks Resting in bed Alert Appetite good Wants to change his own dressings No family present Afebrile, vital signs stable Objective Objective Results - Vital Signs Date Time Temp Pulse Resp B/P Pulse Ox O2 Delivery O2 Flow Rate FiO2 02/05/17 12:00 97.4 77 19 146/78 96 02/05/17 08:00 97.8 74 18 152/82 96 02/05/17 05:29 97.8 90 20 122/69 96 02/05/17 00:00 98.5 77 18 129/74 98 02/04/17 16:00 97.5 78 20 150/83 98 I/O 02/04/17 02/04/17 02/04/17 02/05/17 02/05/17 02/05/17 07:00 15:00 23:00 07:00 15:00 23:00 Intake Total 480 ml 1440 ml 1190 ml 240 ml 480 ml Output Total 500 ml Balance 480 ml 1440 ml 1190 ml 240 ml -20 ml Intake Oral 480 ml 1440 ml 840 ml 240 ml 480 ml IV Total 350 ml Output Urine Total 500 ml # Voids 6 4 3 2 # Bowel Movements 2 1 0 0 Result Diagram: 02/04/1781802/04/1719 ROS General: Weakness (generalized with increased activity), Other (10 point ROS done positives noted generalized weakness occasional cough which is improved today wounds right foot other systems negative or unremarkable) Pulmonary: Cough (often known improved today) Skin: Other (wounds right foot, diabetic ulcers) Physical Exam Physical Exam PHYSICAL EXAMINATION GENERAL: This is a well-developed, well-nourished male who appears to be in no acute distress. He is alert and awake, conversational HEAD: Normocephalic without any lesion or mass noted. Facial features appear symmetric. OROPHARYNGEAL: Oropharynx without erythema or edema. NECK: Supple. No nuchal rigidity or lymphadenopathy. Trachea midline without deviation. CARDIAC: Regular rhythm, regular rate, S1 and S2 are heard. Murmur none; no gallops or rubs. LUNGS: Diminished auscultation right lung. Left side essentially clear. None wheeze, rhonchi No use of accessory muscles on inspiration or expiration. States rare occasional productive sputum yesterday ABDOMEN: Soft, nontender, no organomegaly or masses. Bowel sounds are heard in all four quadrants. EXTREMITIES: None edema. Pulses equal weak pedal NEUROLOGICAL: Fair historian No focal deficit, speech clear SKIN:Warm and moist, dry. Nonhealing diabetic wounds right foot. Objective Remarks Doing okay I guess trying to take care of my foot ones A/P Discharge Planning 1. Right upper lobe pneumonia. 2. Hemoptysis. 3. Diabetes mellitus type 2. Uncontrolled 4. Right foot ulcer. 5. Hypertension. 6. Atrial fibrillation. 7. Gastroesophageal reflux disease. 8. Chronic pain PLAN On IV Rocephin and azithromycin. Blood cultures and sputum culture. CT scan shows right mid and upper nodules, ground glass appearance. Continue contact isolation for now Pulmonary consult for his expert opinion. Appreciate, continue DuoNeb nebs, patient will need a bronchoscopy to evaluate further hemoptysis and right lung infiltrates. Pulmonary function test pending. Eliquis on hold today PPD pending. , Negative per nurse verbal report Pain management with oxycodone. fingersticks q.a.c. and h.s. SSI, labile blood sugars continue to monitor ADA diet with at bedtime snack Nonhealing diabetic foot wounds. Consult when care for their expert opinion Home meds reconciled DVT prophylaxis with Eliquis. PUD prophylaxis with Protonix. Consider consult podiatry Discussed With: Nurse, Family (patient), Other (Dr. ralph, patient seen on his behalf) Sylvia Forrest Feb 05, 2017 15:00
[2017-02-05 16:00] VITALS: BP 155/78; PULSE 78; RESP 19; TEMP 98.3; O2SAT 97
[2017-02-05] MEDS: AZITHROMYCIN INJ 500 MG in SODIUM CHLOR 0.9% 250 ML INJ 250 ML IV SCH (16:14)
[2017-02-05] MEDS: cefTRIAXone INJ 1,000 MG in SODIUM CHLORIDE 0.9% INJ 100 ML IV SCH (16:14)
[2017-02-05] MEDS ORDERED: DEXT 5%-NACL 0.45% 1000 ML INJ 1,000 ML IV SCH (19:14)
[2017-02-05] MEDS ORDERED: RESP: ALBUTEROL CONC 2.5 MG/0.5 ML NEB NEB SCH (19:15)
--- NOTE | 2017-02-05 19:17 | HHI.PR ---
Subjective Remarks No hemoptysis today. Up in room. No fever. Off O2 and still on IV antibiotics. Objective Vital Signs Date Time Temp Pulse Resp B/P Pulse Ox O2 Delivery O2 Flow Rate FiO2 02/05/17 16:00 98.3 78 19 155/78 97 02/05/17 12:00 97.4 77 19 146/78 96 02/05/17 08:00 97.8 74 18 152/82 96 02/05/17 05:29 97.8 90 20 122/69 96 02/05/17 00:00 98.5 77 18 129/74 98 I/O 02/04/17 02/04/17 02/04/17 02/05/17 02/05/17 02/05/17 07:00 15:00 23:00 07:00 15:00 23:00 Intake Total 480 ml 1440 ml 1190 ml 240 ml 480 ml Output Total 500 ml Balance 480 ml 1440 ml 1190 ml 240 ml -20 ml Intake Oral 480 ml 1440 ml 840 ml 240 ml 480 ml IV Total 350 ml Output Urine Total 500 ml # Voids 6 4 3 2 # Bowel Movements 2 1 0 0 Result Diagram: 02/04/1781802/04/17818 Objective Remarks IMPRESSION 1. Right mid and upper lung pneumonia. 2. Hemoptysis, rule out underlying malignancy versus atypical mycobacterial infection. 3. Diabetes mellitus type 2. 4. Hypertension. 5. Chronic right leg ulcer. 6. Peripheral neuropathy. Plan ; 1. Continue Rocephin and Zithromax IV . 2. Hold Eliquis. 3. Nebs qid , duoneb 4. Bronchoscopy scheduled in am. 5. PFT when stable. 6. CBc , Coag profile in am. Deuce Sylvester MD Feb 05, 2017 19:17
[2017-02-05 20:00] VITALS: BP 148/77; PULSE 94; RESP 22; TEMP 97.7; O2SAT 96
[2017-02-05] MEDS: INSULIN DETEMIR 100 UNITS/ML VIAL SQ SCH (21:19)
[2017-02-06] VITALS: BP 147/79; PULSE 87; RESP 20; TEMP 98; O2SAT 96
[2017-02-06] MEDS: MEDIUM DOSE INSULIN NOVOLOG SUPPLEMENTAL SCALE SQ SCH ×4 (06:17→21:38)
[2017-02-06 08:00] VITALS: BP 145/78; PULSE 85; RESP 18; TEMP 97.8; O2SAT 98
[2017-02-06] MEDS: RESP: ALBUTEROL 2.5 MG/IPRATROPIUM 0.5 MG NEB (SCH) NEB ×4 (08:00→19:12)
[2017-02-06] MEDS: DILTIAZEM-CD 240 MG CAP ER PO SCH (08:26)
[2017-02-06] MEDS: RAMIPRIL 2.5 MG CAP PO SCH ×2 (08:27→21:37)
[2017-02-06] MEDS: FUROSEMIDE 20 MG TAB PO SCH ×2 (08:28→21:37)
[2017-02-06] MEDS: PANTOPRAZOLE SOD 40 MG DELAYED RELEASE TAB PO SCH (08:28)
[2017-02-06] MEDS ORDERED: SODIUM CHLORIDE 0.9% 20 ML VIAL ONE (09:23)
[2017-02-06] MEDS ORDERED: LIDOCAINE HCL 4% PF 5 ML AMP ONE (09:24)
[2017-02-06] MEDS ORDERED: LIDOCAINE VISCOUS 2% SOLN 15 ML UDC ONE (09:24)
[2017-02-06] MEDS ORDERED: LIDOCAINE HCL 2% 50 ML VIAL ONE (09:24)
[2017-02-06] MEDS ORDERED: EPINEPHrine HCL (1:1000) 1 MG/ML VIAL ONE (09:24)
[2017-02-06] MEDS ORDERED: PROPOFOL 200 MG/20 ML AMP IV ONE (11:16)
[2017-02-06] MEDS ORDERED: ONDANSETRON HCL 4 MG/2 ML VIAL IV PUSH ONE (11:16)
[2017-02-06 12:00] VITALS: BP 146/68; PULSE 83; RESP 19; TEMP 98.2; O2SAT 97
[2017-02-06] MEDS ORDERED: RESP: ALBUTEROL 2.5 MG/3 ML NEB (PRN) NEB ×2 (13:00→13:15)
[2017-02-06] MEDS ORDERED: DO NOT ADM ANY ANTICOAGULANT DRUGS XX PRN (13:04)
--- NOTE | 2017-02-06 13:37 | RADRPT ---
EXAM DATE/TIME: 02/06/2017 12:20 [facility] COMPARISON: CHEST SINGLE AP, November 30, 2016, 22:15. INDICATIONS : Post bronchoscopy MEDICAL HISTORY : Hypertension. Diabetes mellitus type I. SURGICAL HISTORY : None. ENCOUNTER: Initial ACUITY: 3 days PAIN SCORE: 0/10 LOCATION: Bilateral chest FINDINGS: A single view of the chest demonstrates the lungs to be symmetrically aerated without evidence of mas s, infiltrate or effusion. The cardiomediastinal contours are unremarkable. Osseous structures are intact. CONCLUSION: No acute disease. Trenton Schaefer Jr., MD on February 06, 2017 at 13:33 Board Certified Radiologist. This report was verified electronically.
--- NOTE | 2017-02-06 13:57 | HHI.PR ---
Subjective History of Present Illness feels better just came back from Bronchoscopy cough is better No more hemoptysis so far today no fever or chills no CP good appetite No N/V No abd pain ch foot ulcer offers no other c/o Vitals/Results Intake & Output 02/05/17 02/05/17 02/06/17 15:00 23:00 07:00 Intake Total 480 ml 600 ml 0 ml Output Total 500 ml Balance -20 ml 600 ml 0 ml Intake Oral 480 ml 600 ml 0 ml Output Urine Total 500 ml # Voids 2 3 # Bowel Movements 0 0 1 Vital Signs Vital Signs Date Time Temp Pulse Resp B/P Pulse Ox O2 Delivery O2 Flow Rate FiO2 02/06/17 13:30 98.1 72 14 138/80 95 Room Air 02/06/17 13:15 84 16 142/76 95 Room Air 02/06/17 13:04 98.1 73 14 145/81 99 Room Air 02/06/17 12:00 98.2 83 19 146/68 97 02/06/17 08:00 97.8 85 18 145/78 98 02/06/17 00:00 98.0 87 20 147/79 96 02/05/17 20:00 97.7 94 22 148/77 96 02/05/17 16:00 98.3 78 19 155/78 97 CBC/BMP: 02/04/17 0819 02/04/17 0819 Physical Exam General General Appearance: No Acute Distress, Comfortable Eyes Eye Exam: Pupils Equal, Sclera White Ears & Nose Ears & Nose Exam: Nasal Mucosa [place] Throat Throat Exam: Oral Mucosa [place] & Moist Neck Neck Exam: Neck Supple, Trachea Midline Pulmonary Resp Exam: Clear Bilaterally, Breath Sounds Equal, No Distress Cardiology CV Exam: Regular, Normal Sinus Rhythm Gastrointestinal/Abdomen GI Exam: Soft, Non-Tender, Bowel Sounds Present Musculoskeletal MS Remarks R foot dressing intact Integumentary Skin Exam: Warm, Dry Extremeties Extremities Exam: No Edema, Pedal Pulses Palpable Neurologic Neuro Exam: Alert, Awake, Oriented, Speech Clear, Moving All Extremities Psychiatric Psych Exam: Appropriate Responses PUD Prophylasis PUD Prophylaxis: Protonix Assessment/Plan Assessment/Plan 1. Right upper lobe pneumonia. 2. s/p Hemoptysis. 3. Diabetes mellitus type 2. Uncontrolled 4. Right foot ulcer. 5. Hypertension. 6. Atrial fibrillation. 7. Gastroesophageal reflux disease. 8. Chronic pain PLAN On IV Rocephin and azithromycin. Blood cultures and sputum culture. sputum for AFB stain neg , c/s [p] s/p bronch , official report is [p] per lauren Emmanuel to d/c respiratory isolation CT scan shows right mid and upper nodules, ground glass appearance. continue DuoNeb nebs, patient Pulmonary function test pending. Eliquis on hold today PPD Neg per RN sputum for AFB neg x 1 suspicion for TB extremely low d/c respiratory/ droplet precautions ch pain cont oxycodone. stool softener/prn laxative ADA diet with at bedtime snack fingersticks q.a.c. and h.s. & SSI, blood sugars continue to monitor Nonhealing diabetic foot wounds. ch stable wound long-term meds PUD prophylaxis with Protonix. d/w PT will f/u Eric Garibay MD Feb 06, 2017 13:57
[2017-02-06] MEDS: SKIN TEST RESULT OTHER SCH (14:45)
[2017-02-06] MEDS: cefTRIAXone INJ 1,000 MG in SODIUM CHLORIDE 0.9% INJ 100 ML IV SCH (14:55)
[2017-02-06] MEDS: AZITHROMYCIN INJ 500 MG in SODIUM CHLOR 0.9% 250 ML INJ 250 ML IV SCH (18:17)
[2017-02-06 19:04] VITALS: O2SAT 98
[2017-02-06 20:00] VITALS: BP 108/60; PULSE 89; RESP 18; TEMP 97.2; O2SAT 94
[2017-02-06] MEDS: INSULIN DETEMIR 100 UNITS/ML VIAL SQ SCH (21:40)
[2017-02-07] VITALS (8 sets, daily range): BP systolic 114–174; BP diastolic 56–94; PULSE 74–97; RESP 16–20; TEMP 96.1–99.4; O2SAT 93–99
[2017-02-07] MEDS: MEDIUM DOSE INSULIN NOVOLOG SUPPLEMENTAL SCALE SQ SCH ×4 (06:12→21:33)
[2017-02-07] MEDS: RESP: ALBUTEROL 2.5 MG/IPRATROPIUM 0.5 MG NEB (SCH) NEB ×4 (07:41→20:26)
[2017-02-07] MEDS: RAMIPRIL 2.5 MG CAP PO SCH ×2 (09:54→21:28)
[2017-02-07] MEDS: PANTOPRAZOLE SOD 40 MG DELAYED RELEASE TAB PO SCH (09:54)
[2017-02-07] MEDS: DILTIAZEM-CD 240 MG CAP ER PO SCH (09:54)
[2017-02-07] MEDS: FUROSEMIDE 20 MG TAB PO SCH ×2 (09:54→21:28)
[2017-02-07] MEDS: SODIUM CHLORIDE 0.9% FLUSH 5 ML FLUSH FLUSH SCH ×2 (09:55→21:28)
--- NOTE | 2017-02-07 12:48 | HHI.PR ---
Subjective Remarks No hemoptysis today. Has pain in muscles . No fever. Off O2 and on IV antibiotics. Objective Vital Signs Date Time Temp Pulse Resp B/P Pulse Ox O2 Delivery O2 Flow Rate FiO2 02/07/17 07:58 96.1 96 18 174/94 95 02/07/17 07:41 93 02/07/17 00:00 99.4 74 16 114/56 95 02/06/17 20:00 97.2 89 18 108/60 94 02/06/17 19:04 98 21 02/06/17 13:30 98.1 72 14 138/80 95 Room Air 02/06/17 13:15 84 16 142/76 95 Room Air 02/06/17 13:04 98.1 73 14 145/81 99 Room Air I/O 02/06/17 02/06/17 02/06/17 02/07/17 02/07/17 02/07/17 07:00 15:00 23:00 07:00 15:00 23:00 Intake Total 0 ml 1230 ml 580 ml 0 ml Output Total 460 ml Balance 0 ml 770 ml 580 ml 0 ml Intake Oral 0 ml 480 ml 480 ml IV Total 50 ml 100 ml 0 ml Other 700 ml Output Urine Total 450 ml Estimated Blood Loss 10 ml # Voids 3 0 2 # Bowel Movements 1 0 0 Result Diagram: 02/04/1781802/04/17818 Objective Remarks IMPRESSION 1. Right mid and upper lung pneumonia. 2. Hemoptysis, rule out underlying malignancy versus atypical mycobacterial infection. 3. Diabetes mellitus type 2. 4. Hypertension. 5. Chronic right leg ulcer. 6. Peripheral neuropathy. Plan ; 1. Continue Rocephin and D/C Zithromax IV . 2. Resume Eliquis. 3. Nebs qid , duoneb 4. Pathology pending 5. PFT when stable. 6. Home in am if stable. Deuce Sylvester MD Feb 07, 2017 12:48
--- NOTE | 2017-02-07 16:23 | HHI.PR ---
Subjective Subjective Remarks Up in room Talking on phone Ambulating Alert Appetite good (Sylvia Forrest) Review of Systems Constitutional Constitutional Remarks 10 point ROS done. Nonhealing diabetic ulcer otherwise systems negative ( Sylvia Forrest) Integumentary Skin: Wounds (non-healing diabetic ulcer, right foot) (Sylvia Forrest) Vitals/Results Intake & Output 02/06/17 02/06/17 02/07/17 15:00 23:00 07:00 Intake Total 1230 ml 580 ml 0 ml Output Total 460 ml Balance 770 ml 580 ml 0 ml Intake Oral 480 ml 480 ml IV Total 50 ml 100 ml 0 ml Other 700 ml Output Urine Total 450 ml Estimated Blood Loss 10 ml # Voids 0 2 # Bowel Movements 0 0 Vital Signs Vital Signs Date Time Temp Pulse Resp B/P Pulse Ox O2 Delivery O2 Flow Rate FiO2 02/07/17 16:16 99 21 02/07/17 12:00 97.2 97 17 135/72 96 02/07/17 07:58 96.1 96 18 174/94 95 02/07/17 07:41 93 02/07/17 00:00 99.4 74 16 114/56 95 02/06/17 20:00 97.2 89 18 108/60 94 02/06/17 19:04 98 21 (Sylvia Forrest) CBC/BMP: 02/04/17 0819 02/04/17 0819 Current Medications Active Medications Azithromycin (Zithromax) 500 mg DAILY PO; Start 02/08/17 at 09:00 (Sylvia Forrest) Physical Exam General General Appearance: No Acute Distress, Comfortable (Sylvia Forrest) Eyes Eye Exam: Pupils Equal, Sclera White (Sylvia Forrest) Ears & Nose Ears & Nose Exam: Nasal Mucosa [place] (Sylvia Forrest) Throat Throat Exam: Oral Mucosa [place] & Moist (Sylvia Forrest) Neck Neck Exam: Neck Supple, Trachea Midline (Sylvia Forrest) Pulmonary Resp Exam: Clear Bilaterally, Breath Sounds Equal, No Distress (Sylvia Forrest) Cardiology CV Exam: Regular, Normal Sinus Rhythm (Sylvia Forrest) Gastrointestinal/Abdomen GI Exam: Soft, Non-Tender, Bowel Sounds Present (Sylvia Forrest) Integumentary Skin Exam: Warm, Dry (Sylvia Forrest) Extremeties Extremities Exam: No Edema, Pedal Pulses Palpable Extremeties Remarks Nonhealing right foot ulcers (Sylvia Forrest) Neurologic Neuro Exam: Alert, Awake, Oriented, Speech Clear, Moving All Extremities ( Sylvia Forrest) Psychiatric Psych Exam: Appropriate Responses (Sylvia Forrest) PUD Prophylasis PUD Prophylaxis: Protonix (Sylvia Forrest) Assessment/Plan Assessment/Plan 1. Right upper lobe pneumonia. 2. s/p Hemoptysis. 3. Diabetes mellitus type 2. Uncontrolled 4. Right foot ulcer. 5. Hypertension. 6. Atrial fibrillation. 7. Gastroesophageal reflux disease. 8. Chronic pain PLAN On IV Rocephin and azithromycin PO Blood cultures, no growth, bronchial washings pending, or no growth sputum for AFB stain neg , c/s [p] s/p bronch , official report is [p] per Dr Alexander, lauren to d/c respiratory isolation continue DuoNeb nebs, patient Pulmonary function test PPD Neg per RN sputum for AFB neg x 1 suspicion for TB extremely low d/c respiratory/ droplet precautions, discontinued now ch pain cont oxycodone. stool softener/prn laxative ADA diet with at bedtime snack fingersticks q.a.c. and h.s. & SSI, blood sugars continue to monitor Nonhealing diabetic foot wounds. ch stable wound long-term meds PUD prophylaxis with Protonix. d/w PT d/w Dr. Garibay, patient seen on his behalf will f/u (Sylvia Forrest) Assessment/Plan pt is seen & examined d/w PT d/w Dr Alexander d/w Sylvia clinically improving f/u bronch stain c/s if neg possible d/c home in am on po abx will f/u (Eric Garibay MD) Sylvia Forrest Feb 07, 2017 16:23 Eric Garibay MD Feb 07, 2017 16:58
[2017-02-07] MEDS: cefTRIAXone INJ 1,000 MG in SODIUM CHLORIDE 0.9% INJ 100 ML IV SCH (17:30)
[2017-02-07] MEDS: INSULIN DETEMIR 100 UNITS/ML VIAL SQ SCH (21:31)
[2017-02-08] MEDS: MEDIUM DOSE INSULIN NOVOLOG SUPPLEMENTAL SCALE SQ SCH ×2 (05:54→12:16)
[2017-02-08 08:00] VITALS: BP 185/96; PULSE 89; RESP 18; TEMP 97.7; O2SAT 90
[2017-02-08] MEDS: RESP: ALBUTEROL 2.5 MG/IPRATROPIUM 0.5 MG NEB (SCH) NEB ×2 (08:00→12:00)
[2017-02-08] MEDS: RAMIPRIL 2.5 MG CAP PO SCH (08:50)
[2017-02-08] MEDS: DILTIAZEM-CD 240 MG CAP ER PO SCH (08:50)
[2017-02-08] MEDS: FUROSEMIDE 20 MG TAB PO SCH (08:50)
[2017-02-08] MEDS: PANTOPRAZOLE SOD 40 MG DELAYED RELEASE TAB PO SCH (08:50)
[2017-02-08] MEDS: SODIUM CHLORIDE 0.9% FLUSH 5 ML FLUSH FLUSH SCH (08:51)
[2017-02-08] MEDS ORDERED: AZITHROMYCIN 250 MG TAB PO SCH (09:00)
--- NOTE | 2017-02-08 10:00 | MP ---
cc: PRADEEP SYLVESTER DATE OF SURGERY 02/06/2017 PROCEDURE Fiberoptic bronchoscopy with brushings, washings and lavage. PREOPERATIVE DIAGNOSIS Persistent right upper and middle lobe infiltrates ANESTHESIA General PROCEDURAL PHYSICIAN Dr. Nancy Sylvester PROCEDURE AND FINDINGS The patient was intubated under general anesthesia. Following this, the Olympus IT-180 bronchoscope was used to visualized the bronchi. The scope was advanced via the endotracheal tube into the trachea. The trachea and celeste appeared normal. The scope was then advanced into the right mainstem and right upper lobe segmental bronchi. The right upper lobe segmental bronchi demonstrated moderate endobronchitis with mucosal edema, but no endobronchial lesions were seen. There was no evidence of bleeding. Mucoid secretions were noted which were suctioned out. Brushings were done for micro and cytology. The scope was also advanced into the right middle lobe segmental bronchi and demonstrated mild endobronchitis, but no endobronchial lesions were seen. There were a few mucoid secretions which were suctioned out. Next, the right lower lobe segmental bronchi visualized. This demonstrated mild endobronchitis and mucoid secretions. Saline washings were done. No bleeding was observed. Next, the scope was advanced into the left mainstem and left upper lobe segmental bronchi. These bronchi demonstrated no gross endobronchial lesions. Saline washings were done. Next, the left lower lobe segmental bronchi were visualized which demonstrated mild endobronchitis with mucoid secretions. These were suctioned out and saline washings were done. The procedure was then terminated. The patient tolerated the procedure well. MD JORGE A Carlisle/CATHERINE /12:54 PM /9:52 AM
--- NOTE | 2017-02-08 11:07 | HHI.PR ---
Subjective History of Present Illness Interval History feels better less cough ,no sig sputum scant amount of blood in sputum today No fever or chills No N/V ch R Lext / back pain good appetite eager to go home offers no other c/o Review of Systems Integumentary Skin: Wounds (non-healing diabetic ulcer, right foot) Vitals/Results Intake & Output 02/07/17 02/07/17 02/08/17 15:00 23:00 07:00 Intake Total 240 ml 360 ml 460 ml Balance 240 ml 360 ml 460 ml Intake Oral 240 ml 360 ml 460 ml IV Total 0 ml 0 ml # Voids 4 3 3 # Bowel Movements 0 0 0 Vital Signs Vital Signs Date Time Temp Pulse Resp B/P Pulse Ox O2 Delivery O2 Flow Rate FiO2 02/08/17 08:00 97.7 89 18 185/96 90 02/07/17 23:33 98.1 75 20 136/77 95 02/07/17 20:00 98.6 79 18 135/64 94 02/07/17 16:16 99 21 02/07/17 16:00 97.7 77 16 115/59 94 02/07/17 12:00 97.2 97 17 135/72 96 CBC/BMP: 02/04/17 0819 02/04/17 0819 Physical Exam General General Appearance: No Acute Distress, Comfortable Eyes Eye Exam: Pupils Equal, Sclera White Ears & Nose Ears & Nose Exam: Nasal Mucosa [place] Throat Throat Exam: Oral Mucosa [place] & Moist Neck Neck Exam: Neck Supple, Trachea Midline Pulmonary Resp Exam: Clear Bilaterally, Breath Sounds Equal, No Distress Cardiology CV Exam: Regular, Normal Sinus Rhythm Gastrointestinal/Abdomen GI Exam: Soft, Non-Tender, Bowel Sounds Present Musculoskeletal MS Remarks R foot dressing intact Integumentary Skin Exam: Warm, Dry Extremeties Extremities Exam: No Edema, Pedal Pulses Palpable Neurologic Neuro Exam: Alert, Awake, Oriented, Speech Clear, Moving All Extremities Psychiatric Psych Exam: Appropriate Responses PUD Prophylasis PUD Prophylaxis: Protonix Assessment/Plan Assessment/Plan Assessment/Plan 1. Right upper lobe pneumonia. 2. s/p Hemoptysis. 3. Diabetes mellitus type 2. Uncontrolled 4. Right foot ulcer. 5. Hypertension. 6. Atrial fibrillation. 7. Gastroesophageal reflux disease. 8. Chronic pain PLAN d/c IV abx PO ceftin x 5 days Blood cultures, no growth, bronchial washings c/s neg AFB stain neg c/s [p] Fungal stain neg ,.c/s [p] Bx [p] sputum for AFB stain neg , c/s [p] continue DuoNeb nebs, patient PPD Neg per RN suspicion for TB extremely low ch pain cont oxycodone. stool softener/prn laxative CCB for rate control keep off Eliquis for another 5days , if no more hemoptysis , than resume Eliquis Insulin ADA diet with at bedtime snack fingersticks q.a.c. and h.s. & SSI, blood sugars continue to monitor medically stable for d/c d/c home today see Orders see [facility] f/u pulmonary & Pcp f/u pending c/s reports at pulmonary's office d/w PT f/u podiatry Eric Garibay MD Feb 08, 2017 11:07
[2017-02-08] MEDS ORDERED: CEFT500T3 PO (11:34)
[2017-02-08] MEDS ORDERED: GUAISYP4 PO (11:34)
[2017-02-08 12:00] VITALS: BP 157/73; PULSE 88; RESP 17; TEMP 96.8; O2SAT 96
[2017-02-16 10:40] LABS: LEGIONELLA CULT RESULT NOT ISOLATED (NOT ISOLATE)
--- NOTE | 2017-02-20 08:48 | RSPPFT ---
DATE OF PROCEDURE: 02/08/17 COMMENTS: Spirometry demonstrates an FEV1 of 2.7 at 68% of predicted, FVC of 3.4 at 67%, FEF 25-75 at 69% of predicted. Post-bronchodilator study were not conducted. Flow volume loops suggest a restrictive pattern. IMPRESSION: 1. Moderate restrictive disease.
--- NOTE | 2017-04-08 14:20 | HHI.DS ---
Discharge Summary Admission Date Feb 03, 2017 at 04:17 Discharge Date: Feb 08, 2017 Admitting Diagnosis PNA, r/o TB (1) Right upper lobe pneumonia (2) Hemoptysis (3) DM (diabetes mellitus) (4) Ulcer of toe of right foot (5) HTN (hypertension) (6) Atrial fibrillation (7) GERD (gastroesophageal reflux disease) Procedures DATE OF SURGERY 02/06/2017 PROCEDURE Fiberoptic bronchoscopy with brushings, washings and lavage. Hospital Course The patient is a [id number]-male who presented to the ER on 02/02/2017 with complaints of coughing up blood since one day. Per patient, he noticed bright red bloody sputum with a little bit of actual sputum as well with complaint of wheezing. The patient is on Eliquis. He is also taking clindamycin for chronic infection in his right foot, he follows with Podiatry. Denies any chest pain, denies any fever, does complain of some chills, night sweats LABORATORY DATA WBC 14.9, hemoglobin 10.6, hematocrit 30.7, platelets 336,000. BUN 13, creatinine 0.71, potassium 4.7, random glucose is 44. UA is clean. IMAGING Chest x-ray shows a non-consolidated infiltrate in the right upper lung, this is new when compared to prior chest x-ray in January,. DIAGNOSTIC IMPRESSION 1. Right upper lobe pneumonia. 2. Abnormal CXR. 3. Hemoptysis. 3. Diabetes mellitus type 2. 4. Right foot ulcer. 5. Hypertension. 6. Atrial fibrillation. 7. Gastroesophageal reflux disease. 8. Chronic pain. 9. Chills/night sweats. During the course of the hospitalization, the following took place: Patient was admitted, started on IV Rocephin and azithromycin. blood cultures and sputum culture done patient in insolation as patient needs to be ruled out for TB due to hisi symptoms of cough/hemoptysis/night sweats/chills/ Requested a PPD. Pain management with oxycodone. Hold the insulin as the patient's blood sugar is low. Fingersticks q.a.c. and h.s. and restart insulin as needed. Requested CT chest fur further eval of non-consolidated infiltrate in the right upper lung. Requested pulmonary consult. Continue home medications as appropriate. DVT prophylaxis with Eliquis. PUD prophylaxis with Protonix. Pulmonology recommended bronchoscopy Pt underwent bronchoscopy, results were followed He tested negative for AFB Bronchial washings were negative for malignancy Pulmonology clear for discharge on oral antibiotic He was continued on DuoNeb's PPD was negative Suspicion for TB was slow Heart rate was controlled with calcium channel blockers Patient was eventually resumed on Eliquis Pt's condition improved, no more fever, less cough Patient was discharged home in stable condition and instructed to follow-up with primary care physician and podiatry Pt Condition on Discharge: Stable Discharge Disposition: Discharge Home Discharge Instructions DIET: Follow Instructions for: Heart Healthy Diet, Diabetic Diet Fluid Restrictions: none Activities you can perform: Weight Bearing as Tj Follow up Referrals: Appointment for Follow Up - 2 Weeks with Deuce Sylvester MD PCP Follow-up - 3-5 Days Podiatry - 3 Weeks Pulmonology - 2 Weeks Continued Medications: Diltiazem ER 24 HR (Diltiazem ER 24 HR) 240 Mg Brock 240 MG PO DAILY #30 Ref 0 TAB Furosemide (Furosemide) 20 Mg Tab 20 MG PO BID #60 Ref 0 TAB Insulin Glargine Inj (Lantus Inj) 1,000 Unit/10 Ml Vial 10 UNITS SQ HS Blood Sugar Management Ref 0 VIAL Insulin Lispro (Human) Inj (Humalog Inj) 1,000 Unit/10 Ml Vial 5-25 UNITS SQ ACHS Max dose at bedtime:( )units; sugars < 70,(0)units; sugars 150-199,(5)units; sugars 200-249,(10)units; sugars 250-299,(15)units; sugars 300 -349,(20)units; sugars more than 349,(25)units. Blood Sugar Management #1 Ref 0 VIAL Pantoprazole (Protonix) 40 Mg Tab 40 MG PO DAILY Reflux #30 Ref 0 TAB Ramipril (Ramipril) 5 Mg Cap 2.5 MG PO BID #60 Ref 0 CAP Discontinued Medications: Apixaban (Eliquis) 5 Mg Tab 5 MG PO BID Blood Clot Prevention #60 Ref 0 TAB Chandrika Powers April 08, 2017 14:20
== END 2017-02-08 13:34 | disposition home or self-care (01) | DRG 168 ==
LOC: PHED 23:20 → PHEDA 02-03 04:17 → PH3B 02-03 05:50 → N07A 02-05 03:40
PROVIDERS: ADMIT Specialist; ATTEND Specialist
PROC: 0BBF8ZX Excision of Right Lower Lung Lobe, Via Natural or Artificial Opening Endoscopic, Diagnostic (ICD-10-PCS; principal; 2017-02-06 12:25)
DX: J18.9 Pneumonia, unspecified organism (principal); E11.42 Type 2 diabetes mellitus with diabetic polyneuropathy; E11.621 Type 2 diabetes mellitus with foot ulcer; K21.9 Gastro-esophageal reflux disease without esophagitis; I10 Essential (primary) hypertension; L97.519 Non-pressure chronic ulcer of other part of right foot with unspecified severity; E11.65 Type 2 diabetes mellitus with hyperglycemia; G89.29 Other chronic pain; I48.91 Unspecified atrial fibrillation; Z79.4 Long term (current) use of insulin; Z79.01 Long term (current) use of anticoagulants
CPT/HCPCS: 71010; 71020; 71260; 80048; 80053; 81001; 82948; 83036; 85025; 85610; 85652; 85730; 86140; 87015; 87040; 87070; 87071; 87081; 87102; 87116; 87205; 87206; 88112; 88305; 94010; 94640; 94664; 95012; 96360; J0171; J0456; J0696; J1170; J1815; J2405; J7030; J7050; Q9967

== ENCOUNTER 2017-03-26 06:00 | Inpatient (IN) | payer MEDICARE, OTHER ==
[2017-03-26] VITALS (7 sets, daily range): BP systolic 115–152; BP diastolic 50–75; PULSE 69–80; RESP 16–18; TEMP 97.3–98; O2SAT 95–100
[~2017-03-26] VITALS: Ht 200.7 cm; Wt 98.3 kg
[~2017-03-26 06:00] MED LIST changes: -APIX5TAB PO; -BACT800T5 PO; +CEFT500T3 PO; -CEPH500C PO; -CLIN1CAP5 PO; +GUAISYP4 PO; +OXYC-426 PO; -OXYC1CAP PO
[2017-03-26] MEDS ORDERED: CLINDAMYCIN INJ 600 MG in SODIUM CHLORIDE 0.9% INJ 100 ML IV ONE (06:45)
[2017-03-26] MEDS ORDERED: MORPHINE SULFATE 8 MG/ML INJ IV PUSH ONE (06:45)
[2017-03-26] MEDS ORDERED: XANA2TAB2 PO (06:46)
--- NOTE | 2017-03-26 06:46 | PD ---
HPI Chief Complaint: Fall Time Seen by Provider: 06:23 Travel History International Travel<30 days: No Contact w/Intl Traveler<30days: No Traveled to known affect area: No History of Present Illness HPI 57yo M with PMH of DM, HTN, Afib on Eliquis presents to the ED with c/o right lower extremity swelling and pain for 1 day. States that he was standing next to his bed and his bed sheet got tangled in his right leg and he fell forward hitting his head and left knee at 7pm last night. Denies any LOC. States he has left knee swelling after the fall and has not been able to walk. Pt has chronic ulcer in right foot for months and follows closely with Dr. Mijares his adult basic education teacher. Pt had been seen at [facility] 01/08/17 for swelling of right leg and had US RLE that was negative for DVT. However, pt states this swelling is new for 1 day. Pt was admitted 11/24/16-11/26/16 for osteomyelitis of 3rd right digit and had amputation of that digit. Denies any fever, chest pain, sob, n/v , abdominal pain. Pt has numbness/tingling from his neuropathy. PFSH Past Medical History Hx Anticoagulant Therapy: Yes Autoimmune Disease: No Blood Disorders: No Anxiety: Yes Depression: No Heart Rhythm Problems: No Cancer: No Cardiovascular Problems: Yes High Cholesterol: Yes Chest Pain: No Congestive Heart Failure: No Cerebrovascular Accident: No Diabetes: Yes Patient Takes Glucophage: No Diminished Hearing: No Endocrine: Yes Gastrointestinal Disorders: Yes GERD: Yes Genitourinary: No Headaches: No Hiatal Hernia: No Hypertension: Yes Immune Disorder: No Implanted Vascular Access Dvce: No Musculoskeletal: No Neurologic: Yes (DIABETIC NEUROPATHY) Psychiatric: Yes Reproductive: No Respiratory: No Integumentary: Yes (diabetic foot ulcers for 15 years) Immunizations Current: Yes Migraines: No Seizures: No Thyroid Disease: No Ulcer: No Tetanus Vaccination: < 5 Years Influenza Vaccination: Yes Past Surgical History Abdominal Surgery: No AICD: No Arteriovenous Shunt: No Cardiac Surgery: Yes (TWO HEART ABLATIONS) Ear Surgery: No Endocrine Surgery: No Eye Surgery: No Genitourinary Surgery: No Gynecologic Surgery: No Insulin Pump: No Joint Replacement: No Neurologic Surgery: No Oral Surgery: Yes Pacemaker: No Thoracic Surgery: No Other Surgery: Yes ( SKIN GRAFTS, BILAT BIG TOES) Social History Alcohol Use: No Tobacco Use: No Substance Use: No Allergies-Medications (Allergen,Severity, Reaction): 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 & 11/12/16; (toe) - 03/2016 Reported Meds & Prescriptions Reported Meds & Active Scripts Active Reported Oxycodone (Oxycodone HCl) 30 Mg Tab 30 Mg PO Q4HR PRN Keflex (Cephalexin) 500 Mg Cap 500 Mg PO BID Xanax (Alprazolam) 2 Mg Tab 2 Mg PO Q8H PRN Ramipril 5 Mg Cap 2.5 Mg PO BID Diltiazem ER 24 HR 240 Mg Brock 240 Mg PO DAILY Lantus Inj (Insulin Glargine) 1,000 Unit/10 Ml Vial 10 Units SQ HS Humalog Inj (Insulin Human Lispro) 1,000 Unit/10 Ml Vial 5-25 Units SQ ACHS Max dose at bedtime:( )units; sugars < 70,(0)units; sugars 150-199,(5)units; sugars 200-249,(10)units; sugars 250-299,(15)units; sugars 300-349,(20)units; sugars more than 349,(25)units. Furosemide 20 Mg Tab 20 Mg PO BID Protonix (Pantoprazole Sodium) 40 Mg Tab 40 Mg PO DAILY Review of Systems Except as stated in HPI: all other systems reviewed are Neg Physical Exam Narrative GENERAL: 57yo M in mild distress. SKIN: Focused skin assessment warm/dry. HEAD: Atraumatic. Normocephalic. EYES: Pupils equal and round. No scleral icterus. No injection or drainage. ENT: No nasal bleeding or discharge. Mucous membranes pink and moist. NECK: Trachea midline. No JVD. CARDIOVASCULAR: Regular rate and rhythm. No murmur appreciated. RESPIRATORY: No accessory muscle use. Clear to auscultation. Breath sounds equal bilaterally. GASTROINTESTINAL: Abdomen soft, non-tender, nondistended. Hepatic and splenic margins not palpable. MUSCULOSKELETAL: RLE: +Pitting edema in foot/ankle, tib/fib up to knee. +6cm by 6cm ulcer in medial plantar. Clear drainage. DP 2+. Small 0.5cm ulcer tip of 2nd toe. Left knee: +Ecchymoses and edema with limited range of motion. Sensation intact. DP 2+. NEUROLOGICAL: Awake and alert. No obvious cranial nerve deficits. Motor grossly within normal limits. Normal speech. PSYCHIATRIC: Appropriate mood and affect; insight and judgment normal. Data Data Last Documented VS Vital Signs Date Time Temp Pulse Resp B/P Pulse Ox O2 Delivery O2 Flow Rate FiO2 03/26/17 08:46 74 16 137/71 100 Room Air 03/26/17 06:06 98.0 Orders Us Leg Venous Doppler Bilat (03/26/17 ) Complete Blood Count With Diff (03/26/17 06:38) Basic Metabolic Panel (Bmp) (03/26/17 06:38) Prothrombin Time / Inr (Pt) (03/26/17 06:38) Act Partial Throm Time (Ptt) (03/26/17 06:38) Westergren Sedimentation Rate (03/26/17 06:38) C-Reactive Protein (Crp) (03/26/17 06:38) Blood Culture (03/26/17 06:38) Lactic Acid Sepsis Protocol (03/26/17 06:38) Knee, Ltd (1 Or 2vws) (03/26/17 ) Ct Brain W/O Iv Contrast(Rout) (03/26/17 ) Clindamycin Inj (Cleocin Inj) (03/26/17 06:45) Morphine Inj (Morphine Inj) (03/26/17 06:45) Tibia/Fibula (Ap/Lat) (03/26/17 ) Foot, Limited (2vws) (03/26/17 ) Vancomycin Inj (Vancomycin Inj) (03/26/17 09:15) Admit Order (Ed Use Only) (03/26/17 09:11) Labs Laboratory Tests Test 03/26/17 06:40 White Blood Count 10.8 TH/MM3 Red Blood Count 3.35 MIL/MM3 Hemoglobin 9.3 GM/DL Hematocrit 28.1 % Mean Corpuscular Volume 84.0 FL Mean Corpuscular Hemoglobin 27.7 PG Mean Corpuscular Hemoglobin 33.0 % Concent Red Cell Distribution Width 12.4 % Platelet Count 432 TH/MM3 Mean Platelet Volume 6.0 FL Neutrophils (%) (Auto) 78.2 % Lymphocytes (%) (Auto) 13.6 % Monocytes (%) (Auto) 6.0 % Eosinophils (%) (Auto) 1.6 % Basophils (%) (Auto) 0.6 % Neutrophils # (Auto) 8.4 TH/MM3 Lymphocytes # (Auto) 1.5 TH/MM3 Monocytes # (Auto) 0.6 TH/MM3 Eosinophils # (Auto) 0.2 TH/MM3 Basophils # (Auto) 0.1 TH/MM3 CBC Comment DIFF FINAL Differential Comment Erythrocyte Sedimentation Rate 93 mm/hr Prothrombin Time 12.0 SEC Prothromb Time International 1.1 RATIO Ratio Activated Partial 33.1 SEC Thromboplast Time Sodium Level 137 MEQ/L Potassium Level 3.9 MEQ/L Chloride Level 99 MEQ/L Carbon Dioxide Level 30.6 MEQ/L Anion Gap 7 MEQ/L Blood Urea Nitrogen 15 MG/DL Creatinine 0.71 MG/DL Estimat Glomerular Filtration 114 ML/MIN Rate Random Glucose 180 MG/DL Lactic Acid Level 0.5 mmol/L Calcium Level 8.4 MG/DL C-Reactive Protein 2.80 MG/DL [facility] Medical Decision Making Medical Screen Exam Complete: Yes Emergency Medical Condition: Yes Differential Diagnosis DVT vs. cellulitis vs. osteomyelitis vs. fracture vs. contusion Narrative Course 57yo M with DM, HTN, osteomyelitis, afib here with RLE swelling for 1 day. However, pt tripped and fell and hit head and left knee. Will do US bilateral lower ext to r/o DVT, xray left knee, xay of left tib/fib and foot. Will also obtain labs including sed rate, c-reactive protein, blood culture and cover with clindamycin. Pt seen at the end of my shift. Will sign out to next team to follow up. Diagnosis Primary Impression: Osteomyelitis of right foot Qualified Code: M86.9 - Osteomyelitis of right foot, unspecified type Natasha Marcelo DO March 26, 2017 06:46
[2017-03-26] MEDS ORDERED: CEPH-460 PO (06:48)
[2017-03-26 06:58] LABS: AUTOMATED NEUTROPHIL # 8.4 TH/MM3 (1.8-7.7); BASOPHIL # 0.1 TH/MM3 (0-0.2); BASOPHIL % 0.6 % (0.0-2.0); EOSINOPHIL # 0.2 TH/MM3 (0-0.4); EOSINOPHIL % 1.6 % (0.0-4.0); HEMATOCRIT 28.1 % (39.0-51.0); HEMO FLAGS DIFF FINAL; LYMPH % 13.6 % (9.0-44.0); LYMPHOCYTE # 1.5 TH/MM3 (1.0-4.8); MEAN CORPUSCULAR HEMOGLOBIN 27.7 PG (27.0-34.0); NEUT % 78.2 % (16.0-70.0); PLATELET COUNT 432 TH/MM3 (150-450); RED BLOOD COUNT 3.35 MIL/MM3 (4.50-5.90); RED CELL DISTRIBUTION WIDTH 12.4 % (11.6-17.2); WHITE BLOOD COUNT 10.8 TH/MM3 (4.0-11.0)
[2017-03-26 07:07] LABS: POTASSIUM 3.9 MEQ/L (3.5-5.1)
[2017-03-26 07:10] LABS: BICARBONATE 30.6 MEQ/L (21.0-32.0)
[2017-03-26 07:11] LABS: APTT (PATIENT) 33.1 SEC (24.3-30.1); INTERNATIONAL NORMALIZED RATIO 1.1 RATIO
--- NOTE | 2017-03-26 07:35 | RADHPO ---
EXAM DATE/TIME: 03/26/2017 07:00 [facility] COMPARISON: No previous studies available for comparison. INDICATIONS : Fall secondary to bilateral leg pain and swelling. RADIATION DOSE: 51.89 CTDIvol (mGy) MEDICAL HISTORY : Hypertension. Cardiovascular disease Diabetes. SURGICAL HISTORY : Cardiac ablation. Orthopedic surgery. ENCOUNTER: Initial ACUITY: 1 day PAIN SCALE: 3/10 LOCATION: cranial TECHNIQUE: Multiple contiguous axial images were obtained of the head. Using automated exposure control and adj ustment of the mA and/or kV according to patient size, radiation dose was kept as low as reasonably a chievable to obtain optimal diagnostic quality images. FINDINGS: CEREBRUM: The ventricles are normal. No evidence of midline shift, mass lesion, hemorrhage or acute infarction . No extra-axial fluid collections are seen. POSTERIOR FOSSA: The cerebellum and brainstem demonstrate no acute finding. The 4th ventricle is midline. The cerebe llopontine angle is unremarkable. EXTRACRANIAL: Visualized sinuses demonstrate no acute finding. SKULL: The calvaria is intact. No evidence of skull fracture. CONCLUSION: No acute intracranial abnormality is identified. Collin Galarza MD on March 26, 2017 at 7:32 Board Certified Radiologist. This report was verified electronically.
--- NOTE | 2017-03-26 07:47 | RADHPO ---
EXAM DATE/TIME: 03/26/2017 07:14 [facility] COMPARISON: No previous studies available for comparison. INDICATIONS : Fall, left knee pain and swelling. MEDICAL HISTORY : Diabetes mellitus type II. neuropathy SURGICAL HISTORY : None. ENCOUNTER: Initial ACUITY: 2 days PAIN SCORE: 10/10 LOCATION: Left knee FINDINGS: Two view examination of the left knee demonstrates no evidence of fracture or dislocation. Bony mine ralization is normal. Soft tissue swelling. No effusion. Mild osteoarthritis. CONCLUSION: 1. Mild osteoarthritis. 2. Soft tissue swelling without fracture. Dawood Donnelly MD on March 26, 2017 at 7:44 Board Certified Radiologist. This report was verified electronically.
--- NOTE | 2017-03-26 07:56 | RADHPO ---
EXAM DATE/TIME: 03/26/2017 07:17 [facility] COMPARISON: No previous studies available for comparison. INDICATIONS : Right lower extremity pain and swelling. MEDICAL HISTORY : Diabetes mellitus type II. neuropathy SURGICAL HISTORY : right 3rd digit ampuatation, multiple surgeries on right foot ENCOUNTER: Initial ACUITY: 2 days PAIN SCORE: 8/10 LOCATION: Right tibia FINDINGS: Two view examination of the right tibia demonstrates no evidence of fracture or dislocation. Diffuse soft tissue swelling. CONCLUSION: Soft tissue swelling without fracture. Dawood Donnelly MD on March 26, 2017 at 7:53 Board Certified Radiologist. This report was verified electronically.
--- NOTE | 2017-03-26 07:59 | RADHPO ---
EXAM DATE/TIME: 03/26/2017 07:21 [facility] COMPARISON: FOOT RIGHT COMPLETE ([id number]), January 08, 2017, 21:00. INDICATIONS : Right foot pain and swelling. MEDICAL HISTORY : Diabetes mellitus type II. neuropathy SURGICAL HISTORY : right 3rd digit amputation, multiple surgeries on right foot ENCOUNTER: Initial ACUITY: 2 days PAIN SCORE: 8/10 LOCATION: Right foot FINDINGS: Two view examination of the right foot demonstrates degenerative changes of the first metatarsal phal angeal joint. There are some small erosions. Chronic changes of the interphalangeal joint of the grea t toe. Old fracture distal second metatarsal. Amputation of the third toe. Diffuse soft tissue swelli ng. CONCLUSION: 1. Erosive arthritic changes of the first metatarsophalangeal joint with diffuse soft tissue swelling . 2. Old fracture distal second metatarsal. 3. Amputation third digit. Dawood Donnelly MD on March 26, 2017 at 7:54 Board Certified Radiologist. This report was verified electronically.
--- NOTE | 2017-03-26 08:55 | RADHPO ---
EXAM DATE/TIME: 03/26/2017 08:10 [facility] COMPARISON: No previous studies available for comparison. INDICATIONS : Bilateral leg pain and swelling. MEDICAL HISTORY : Hypercholesterolemia. Gastroesophageal reflux disease. Methicillin-resistant Staphylococcus aureus. D iabetic neuropathy. Diabetes. Hypertension. SURGICAL HISTORY : Left achilles tendon replacement. Skin grafts. ENCOUNTER: [facility] ACUITY: 1 day PAIN SCORE: 10/10 LOCATION: Bilateral legs. TECHNIQUE: Venous ultrasound of the left and right leg was performed from the inguinal ligament to the proximal calf. Real-time, color Doppler and spectral tracing, compression and augmentation techniques were us ed. FINDINGS: RIGHT LEG: There is normal compressibility of the deep venous system from the inguinal region to the proximal ca lf. No echogenic clot is seen in the lumen of the common femoral, femoral, popliteal, and posterior tibial veins. There is a normal response of the venous system to proximal and distal augmentation an d respiration. LEFT LEG: There is normal compressibility of the deep venous system from the inguinal region to the proximal ca lf. No echogenic clot is seen in the lumen of the common femoral, femoral, popliteal, and posterior tibial veins. There is a normal response of the venous system to proximal and distal augmentation an d respiration. CONCLUSION: Normal examination. Collin Ramon MD on March 26, 2017 at 8:53 Board Certified Radiologist. This report was verified electronically.
[2017-03-26] MEDS ORDERED: VANCOMYCIN INJ 1,000 MG in SODIUM CHLOR 0.9% 250 ML INJ 250 ML IV ONE (09:15)
--- NOTE | 2017-03-26 10:03 | PD ---
Physical Exam Exam Limitations: Other: (please see prior physician's note for further details ) Narrative GENERAL: Well-nourished, well-developed patient. SKIN: Large ulcer noted to plantar aspect of foot at base of first digit over mid foot area HEAD: Normocephalic and atraumatic. EYES: No injection or drainage. ENT: No nasal drainage noted. NECK: Supple, trachea midline. RESPIRATORY: No increased effort. No accessory muscle use. EXTREMITIES:Pain with palpation of left knee and right foot, no pain with other joints, compartments soft. Palpable pulses bilateral dorsalis pedis NEUROLOGICAL: Awake and alert. Moves extremities. Normal speech. Data Data Last Documented VS Vital Signs Date Time Temp Pulse Resp B/P Pulse Ox O2 Delivery O2 Flow Rate FiO2 03/26/17 08:46 74 16 137/71 100 Room Air 03/26/17 06:06 98.0 Orders Us Leg Venous Doppler Bilat (03/26/17 ) Complete Blood Count With Diff (03/26/17 06:38) Basic Metabolic Panel (Bmp) (03/26/17 06:38) Prothrombin Time / Inr (Pt) (03/26/17 06:38) Act Partial Throm Time (Ptt) (03/26/17 06:38) Westergren Sedimentation Rate (03/26/17 06:38) C-Reactive Protein (Crp) (03/26/17 06:38) Blood Culture (03/26/17 06:38) Lactic Acid Sepsis Protocol (03/26/17 06:38) Knee, Ltd (1 Or 2vws) (03/26/17 ) Ct Brain W/O Iv Contrast(Rout) (03/26/17 ) Clindamycin Inj (Cleocin Inj) (03/26/17 06:45) Morphine Inj (Morphine Inj) (03/26/17 06:45) Tibia/Fibula (Ap/Lat) (03/26/17 ) Foot, Limited (2vws) (03/26/17 ) Vancomycin Inj (Vancomycin Inj) (03/26/17 09:15) Admit Order (Ed Use Only) (03/26/17 09:11) Labs Laboratory Tests Test 03/26/17 06:40 White Blood Count 10.8 TH/MM3 Red Blood Count 3.35 MIL/MM3 Hemoglobin 9.3 GM/DL Hematocrit 28.1 % Mean Corpuscular Volume 84.0 FL Mean Corpuscular Hemoglobin 27.7 PG Mean Corpuscular Hemoglobin 33.0 % Concent Red Cell Distribution Width 12.4 % Platelet Count 432 TH/MM3 Mean Platelet Volume 6.0 FL Neutrophils (%) (Auto) 78.2 % Lymphocytes (%) (Auto) 13.6 % Monocytes (%) (Auto) 6.0 % Eosinophils (%) (Auto) 1.6 % Basophils (%) (Auto) 0.6 % Neutrophils # (Auto) 8.4 TH/MM3 Lymphocytes # (Auto) 1.5 TH/MM3 Monocytes # (Auto) 0.6 TH/MM3 Eosinophils # (Auto) 0.2 TH/MM3 Basophils # (Auto) 0.1 TH/MM3 CBC Comment DIFF FINAL Differential Comment Erythrocyte Sedimentation Rate 93 mm/hr Prothrombin Time 12.0 SEC Prothromb Time International 1.1 RATIO Ratio Activated Partial 33.1 SEC Thromboplast Time Sodium Level 137 MEQ/L Potassium Level 3.9 MEQ/L Chloride Level 99 MEQ/L Carbon Dioxide Level 30.6 MEQ/L Anion Gap 7 MEQ/L Blood Urea Nitrogen 15 MG/DL Creatinine 0.71 MG/DL Estimat Glomerular Filtration 114 ML/MIN Rate Random Glucose 180 MG/DL Lactic Acid Level 0.5 mmol/L Calcium Level 8.4 MG/DL C-Reactive Protein 2.80 MG/DL [facility] Medical Record Reviewed: Yes (pmh confirmed, records reviewed, cultures with enterococcus and MRSA) Supervised Visit with CLARIBEL: No Interpretation(s) CBC & BMP Diagram 03/26/17 06:40 Last 24 hours Impressions Tibia/Fibula X-Ray 03/26/17 0000 Signed Impressions: Service Date/Time: Sunday, March 26, 2017 07:17 - CONCLUSION: Soft tissue swelling without fracture. Dawood Donnelly MD Lower Extremity Ultrasound 03/26/17 0000 Signed Impressions: Service Date/Time: Sunday, March 26, 2017 08:10 - CONCLUSION: Normal examination. Collin Ramon MD Knee X-Ray 03/26/17 0000 Signed Impressions: Service Date/Time: Sunday, March 26, 2017 07:14 - CONCLUSION: 1. Mild osteoarthritis. 2. Soft tissue swelling without fracture. Dawood Donnelly MD Head CT 03/26/17 0000 Signed Impressions: Service Date/Time: Sunday, March 26, 2017 07:00 - CONCLUSION: No acute intracranial abnormality is identified. Collin Galarza MD Foot X-Ray 03/26/17 0000 Signed Impressions: Service Date/Time: Sunday, March 26, 2017 07:21 - CONCLUSION: 1. Erosive arthritic changes of the first metatarsophalangeal joint with diffuse soft tissue swelling. 2. Old fracture distal second metatarsal. 3. Amputation third digit. Dawood Donnelly MD Narrative Course Signed over to me to follow workup and reevaluate, workup shows elevated ESR and CRP and erosive changes to first metatarsal phalangeal joint with soft tissue swelling. Vancomycin added to antibiotics and he will be admitted for further care of osteomyelitis. Patient updated and agrees to admission Physician Communication Physician Communication dr ralph states to place on dr hawkins's service Diagnosis Primary Impression: Osteomyelitis of right foot Qualified Code: M86.9 - Osteomyelitis of right foot, unspecified type Additional Impressions: Open wound of right foot with complication Qualified Code: S91.301A - Open wound of right foot with complication, initial encounter Fall Qualified Code: W19.XXXA - Fall, initial encounter Admitting Information Admitting Physician Requests: Observation Megan Krishnamurthy MD March 26, 2017 10:03
[2017-03-26] MEDS ORDERED: GLUCAGON 1 MG/ML VIAL OTHER PRN (11:15)
[2017-03-26] MEDS ORDERED: DEXTROSE 50% IN WATER 50 ML VIAL(D50) IV PUSH PRN (11:15)
[2017-03-26] MEDS ORDERED: OXYC30TA PO (11:21)
[2017-03-26] MEDS ORDERED: OXYCODONE 30 MG PO SCH (12:00)
[2017-03-26] MEDS ORDERED: AMPICILLIN-SULBACTAM INJ 3 GM in SODIUM CHLORIDE 0.9% INJ 100 ML IV SCH (12:00)
--- NOTE | 2017-03-26 14:21 | PD.ID.CON ---
History of Present Illness Service ID Consult Requested By Dr Celso Ybarra Primary Care Physician Reilly Jaime MD Diagnoses: History of Present Illness 57 yo diabetic male have neuropahtuic alceretion on his plantar area R foot x 6 mos. 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 He is concerned that the wound is not healing Pt has no fever or leukocytosis but his ESr is high to 93mm/hr Coach Driver was consulted and is seeing him later today Pt was hospitalise in [facility] of last year wth jerman, Cultures were positive for MRSA, ENterococccus fecal;is Review of Systems Except as stated in HPI: all other systems reviewed are Neg Past Family Social History Allergies: 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 & 11/12/16; (toe) - 03/2016 Past Medical History IDDM pulmonary mass - pederson in progress Past Surgical History R foot 3rd toe amputation, R hallux resection Active Ordered Medications Medications where reviewed in EMR Antibiotics Include: Unasyn vancomycin Family History Non-Contributory. Social History Medications where reviewed in EMR Antibiotics Include: unasyn vancomycin Physical Exam Vital Signs Vital Signs Date Time Temp Pulse Resp B/P Pulse Ox O2 Delivery O2 Flow Rate FiO2 03/26/17 11:05 80 16 134/50 98 Room Air 03/26/17 08:46 74 16 137/71 100 Room Air 03/26/17 07:56 18 03/26/17 07:40 69 16 115/58 95 Room Air 03/26/17 06:14 71 18 99 Room Air 03/26/17 06:06 98.0 71 18 129/64 99 Physical Exam CONSTITUTIONAL/GENERAL: This is an adequately nourished patient, in no apparent distress. TUBES/LINES/DRAINS: SKIN: No jaundice, rashes, or lesions. Skin temperature appropriate. Not diaphoretic. HEAD: Atraumatic. Normocephalic. EYES: Pupils equal and round and reactive. Extraocular motions intact. No scleral icterus. No injection or drainage. Fundi not examined. ENT: Hearing grossly normal. Nose without bleeding or purulent drainage. Oralmucosae without visible erythema, exudates, masses, or lesions. NECK: Trachea midline. Supple, nontender. No palpable thyroid enlargement or nodularity. CARDIOVASCULAR: Regular rate and rhythm without murmurs, gallops, or rubs. No JVD. Peripheral pulses symmetric. RESPIRATORY/CHEST: Symmetric, unlabored respirations. Clear to auscultation. Breath sounds equal bilaterally. No wheezes, rales, or rhonchi. GASTROINTESTINAL: Abdomen soft, non-tender, nondistended. No hepato-splenomegaly , or palpable masses. No guarding. Bowel sounds present. GENITOURINARY: Without palpable bladder distension. Pike catheter in place. MUSCULOSKELETAL: Extremities without clubbing, cyanosis, BL hammer toes Pls palpable bl we4ll perfused L foot without wounds R foot wioth 4-5 cm stage 3 plantar ulcer with small amoun of serous dc no odor + some edema, minimal erytha 2 nd toe with meceration of the tip well healed 3 rd toe amputation sute Pefdal pulses spalpable b/l LYMPHATICS: No palpable cervical or supraclavicular adenopathy. NEUROLOGICAL: Awake and alert. Motor and sensory grossly within normal limits. Follows commands. Cognitively sharp. Moves all extremities. PSYCHIATRIC: No obvious anxiety/depression. no apparent hallucinations or other psychotic thought process. Laboratory Laboratory Tests Test 03/26/17 06:40 White Blood Count 10.8 Red Blood Count 3.35 Hemoglobin 9.3 Hematocrit 28.1 Mean Corpuscular Volume 84.0 Mean Corpuscular Hemoglobin 27.7 Mean Corpuscular Hemoglobin 33.0 Concent Red Cell Distribution Width 12.4 Platelet Count 432 Mean Platelet Volume 6.0 Neutrophils (%) (Auto) 78.2 Lymphocytes (%) (Auto) 13.6 Monocytes (%) (Auto) 6.0 Eosinophils (%) (Auto) 1.6 Basophils (%) (Auto) 0.6 Neutrophils # (Auto) 8.4 Lymphocytes # (Auto) 1.5 Monocytes # (Auto) 0.6 Eosinophils # (Auto) 0.2 Basophils # (Auto) 0.1 CBC Comment DIFF FINAL Differential Comment Erythrocyte Sedimentation Rate 93 Prothrombin Time 12.0 Prothromb Time International 1.1 Ratio Activated Partial 33.1 Thromboplast Time Sodium Level 137 Potassium Level 3.9 Chloride Level 99 Carbon Dioxide Level 30.6 Anion Gap 7 Blood Urea Nitrogen 15 Creatinine 0.71 Estimat Glomerular Filtration 114 Rate Random Glucose 180 Lactic Acid Level 0.5 Calcium Level 8.4 C-Reactive Protein 2.80 Date/Time Procedure Status Source Growth 03/26/17 06:45 Aerobic Blood Culture Received Blood Peripheral Pending 03/26/17 06:45 Anaerobic Blood Culture Received Blood Peripheral Pending Result Diagram: 03/26/17 0640 03/26/17 0640 Imaging Last Impressions Tibia/Fibula X-Ray 03/26/17 0000 Signed Impressions: Service Date/Time: Sunday, March 26, 2017 07:17 - CONCLUSION: Soft tissue swelling without fracture. Dawood Donnelly MD Lower Extremity Ultrasound 03/26/17 0000 Signed Impressions: Service Date/Time: Sunday, March 26, 2017 08:10 - CONCLUSION: Normal examination. Collin Ramon MD Knee X-Ray 03/26/17 0000 Signed Impressions: Service Date/Time: Sunday, March 26, 2017 07:14 - CONCLUSION: 1. Mild osteoarthritis. 2. Soft tissue swelling without fracture. Dawood Donnelly MD Head CT 03/26/17 0000 Signed Impressions: Service Date/Time: Sunday, March 26, 2017 07:00 - CONCLUSION: No acute intracranial abnormality is identified. Collin Galarza MD Foot X-Ray 03/26/17 0000 Signed Impressions: Service Date/Time: Sunday, March 26, 2017 07:21 - CONCLUSION: 1. Erosive arthritic changes of the first metatarsophalangeal joint with diffuse soft tissue swelling. 2. Old fracture distal second metatarsal. 3. Amputation third digit. Dawood Donnelly MD Assessment and Plan Assessment and Plan DFI R foot with planter indected ulcer and ? 2nd toe osteo Recently hospitalisex for MRDA woundinfx cont vancomycin Dc unasyn cont vancomycin awating poditry input Anitra Young MD March 26, 2017 14:21
[2017-03-26] MEDS ORDERED: GADODIAMIDE PF 287 MG/ML 20 ML VIAL (for RAD MRI) IV ONE (17:29)
[2017-03-26] MEDS: INSULIN ASPART SUPPLEMENTAL SCALE SQ SCH ×2 (17:42→21:50)
--- NOTE | 2017-03-26 20:49 | RADHPO ---
EXAM DATE/TIME: 03/26/2017 15:31 [facility] COMPARISON: FOOT RIGHT LIMITED (2VWS), March 26, 2017, 7:21. INDICATIONS : Osteomyelitis. CONTRAST: 20 cc Omniscan (gadodiamide) IV MEDICAL HISTORY : Hypertension. Diabetes mellitus type 2. Cardiovascular disease. SURGICAL HISTORY : Cardiac ablation, Great toe-right foot sx, 3rd digit amputation on right foot. ENCOUNTER: Initial ACUITY: 4-6 months PAIN SCORE: 4/10 LOCATION: medial side of first metatarsal. TECHNIQUE: Multiplanar, multisequence MRI examination was performed without contrast and after the intravenous a dministration of gadolinium. FINDINGS: Deep, irregular soft tissue ulceration involves the medial arch area of the midfoot, generally planta r to the first tarsometatarsal joint. Plantar cortex of the medial cuneiform is mildly indistinct, se anand 10 image 41, and there is mild subcortical marrow edema. Similar but even more subtle findings a re seen of the plantar/medial aspect of the base of the first metatarsal. No deep signal changes are demonstrated. I don't see a drainable abscess. There is a large defect of the medial bundle of the pl ej fascia related to the soft tissue ulceration. There is moderate severity osteoarthritis of the first tarsometatarsal joint but mainly along the dorsal margin. A chronic pin tract is seen of the phalanges of the great toe without evidence of an acute abnormalit y. Third toe has been previously amputated. CONCLUSION: 1. Broad and deep ulceration of the medial arch area and with MRI findings suggesting superficial ost eomyelitis of the underlying distal medial cuneiform and proximal first metatarsal base. No deep or e xtensive osseous signal changes are demonstrated. 2. There is osteoarthritis of the first tarsometatarsal joint but mainly the dorsal portion of the. C hronic appearing arch collapse is noted. 1. Collin Wright MD on March 26, 2017 at 20:40 Board Certified Radiologist. This report was verified electronically.
[2017-03-26] MEDS: RAMIPRIL 2.5 MG CAP PO SCH (21:39)
[2017-03-26] MEDS: FUROSEMIDE 20 MG TAB PO SCH (21:39)
[2017-03-26] MEDS: INSULIN DETEMIR 100 UNITS/ML VIAL SQ SCH (21:49)
[2017-03-27] VITALS: BP 180/85; PULSE 84; RESP 18; TEMP 98.1; O2SAT 97
[2017-03-27] MEDS: INSULIN ASPART SUPPLEMENTAL SCALE SQ SCH ×4 (06:23→21:59)
[2017-03-27 06:36] LABS: AUTOMATED NEUTROPHIL # 7.3 TH/MM3 (1.8-7.7); BASOPHIL % 0.5 % (0.0-2.0); EOSINOPHIL # 0.2 TH/MM3 (0-0.4); EOSINOPHIL % 2.1 % (0.0-4.0); HEMATOCRIT 27.3 % (39.0-51.0); HEMO FLAGS DIFF FINAL; LYMPH % 12.3 % (9.0-44.0); LYMPHOCYTE # 1.1 TH/MM3 (1.0-4.8); MEAN CELL VOLUME 84.9 FL (80.0-100.0); MEAN CORPUSCULAR HEMOGLOBIN 27.4 PG (27.0-34.0); MEAN CORPUSCULAR HGB CONC 32.3 % (32.0-36.0); MONO % 6.4 % (0.0-8.0); NEUT % 78.7 % (16.0-70.0); PLATELET COUNT 336 TH/MM3 (150-450); RED BLOOD COUNT 3.21 MIL/MM3 (4.50-5.90); RED CELL DISTRIBUTION WIDTH 12.4 % (11.6-17.2); WHITE BLOOD COUNT 9.2 TH/MM3 (4.0-11.0)
[2017-03-27 06:44] LABS: CHLORIDE 103 MEQ/L (98-107); POTASSIUM 3.9 MEQ/L (3.5-5.1); SODIUM (NA) 140 MEQ/L (136-145)
[2017-03-27 06:49] LABS: ANION GAP 8 MEQ/L (5-15); BICARBONATE 28.9 MEQ/L (21.0-32.0); BLOOD UREA NITROGEN 13 MG/DL (7-18)
[2017-03-27 06:52] LABS: ALT (GPT) 12 U/L (12-78); AST (GOT) 9 U/L (15-37); GLOMERULAR FILTRATION RATE 131 ML/MIN (>89)
[2017-03-27 06:53] LABS: TOTAL BILIRUBIN ADULT 0.1 MG/DL (0.2-1.0)
[2017-03-27 06:55] LABS: ALKALINE PHOSPHATASE 109 U/L (45-117)
[2017-03-27] MEDS: DILTIAZEM-CD 240 MG CAP ER PO SCH (07:56)
[2017-03-27] MEDS: RAMIPRIL 2.5 MG CAP PO SCH ×2 (07:56→22:00)
[2017-03-27] MEDS: FUROSEMIDE 20 MG TAB PO SCH ×2 (07:56→22:00)
[2017-03-27] MEDS: PANTOPRAZOLE SOD 40 MG DELAYED RELEASE TAB PO SCH (07:56)
[2017-03-27 08:00] VITALS: BP 176/93; PULSE 74; RESP 16; TEMP 96.9; O2SAT 98
[2017-03-27] MEDS ORDERED: cloNIDine HCL 0.1 MG TAB PO PRN (09:30)
--- NOTE | 2017-03-27 11:17 | MH ---
cc: LAST SILVESTRE MD DATE OF ADMISSION: 03/26/2017 CHIEF COMPLAINT Status post fall. HISTORY OF PRESENT ILLNESS This is a 57-year-old male with past medical-surgical history significant diabetes mellitus, diabetic neuropathy, diabetic foot ulcer, hypertension, atrial fibrillation, history of anxiety, hyperlipidemia. There has been history of gastroesophageal reflux disease. History of two heart ablations, skin graft bilateral big toes, arthritis. Patient came to the emergency room at [facility] complaining of status post fall. He said he had minor head injury which he does not have any headache, anymore and he said that he denies any loss of consciousness. He was standing from his bed and his bed sheets had gotten tangled around his right leg and then he fell forward hitting his head and the left knee yesterday was 07:00 p.m. last night. He had swelling of the left knee after he fell and was not able to walk. He had a chronic ulcer in the right for four months and follows closely with Dr. Mijares his medical billing and coding specialist. The patient had been seen at [facility] on January 08, 2017 for swelling of the right leg and had ultrasound of the right lower extremity that was negative for deep venous thrombosis. Saying that his swelling is new for the last one day. The patient was admitted in November 24, 2016 and November 26, 2016 for osteomyelitis of the third right digit and have amputation of that digit. He denies any other symptoms or complaints at the time of examination. PAST MEDICAL HISTORY/PAST SURGICAL HISTORY: As dictated above. SOCIAL HISTORY Denies smoking, drinking take any drugs at home. He lives alone. He is semi-retired and on disability and works sometimes. ALLERGIES NO KNOWN DRUG ALLERGIES. MEDICATIONS 1. Keflex 500 mg p.o. b.i.d. 2. Xanax 2 mg p.o. q.8 h p.r.n. anxiety. 3. Oxycodone 30 mg p.o. q. 4-hours. 4. Ramipril 5 mg p.o. b.i.d. 5. er 240 mg p.o. daily. 6. Lantus 10 units subcutaneous at bedtime. 7. according to sliding scale. 8. Furosemide 20 mg p.o. b.i.d. 9. Protonix 40 mg p.o. daily. REVIEW OF SYSTEMS All review of systems are negative except for swelling of the left knee and right foot wound with aches and pain all over the body. PHYSICAL EXAMINATION IN GENERAL: This is a 57-year-old male laying in bed not in acute distress. VITAL SIGNS: Vital signs: Temperature 98.1, heart rate 84, respirations 18, blood pressure 180/85, O2 saturation 97% room air. HEAD, EYES, EARS, NOSE, AND THROAT: Normocephalic status post mild head trauma. EOMI. Oral mucosa moist. NECK: Neck is supple. CARDIOVASCULAR SYSTEM: Regular rate and rhythm. LUNGS: Respirations clear to auscultation bilaterally. ABDOMEN: Abdomen soft, nontender. Bowel sounds audible. SKIN: The skin light, slight lower extremity pitting edema and a 6-cm x 6-cm ultrasound on the medial plantar, clear discharge. Small 0.5 cm ulcer tip of the second toe. Left knee ecchymosis, swelling and edema with limited range of motion. Sensation intact. NEUROLOGIC: Awake, alert, oriented x4. No focal deficits. SKIN: Shows right foot wound as described above. PSYCHIATRIC: Psych the patient is cooperative mood, affect is normal. LABORATORY DATA Include complete blood count totally unremarkable except for hemoglobin was 9.3 now it is 8.8, RBC count was 3.3 now it is 3.2, hematocrit was 28.1 now it is 27.3, MPV 6.0 low, neutrophil percentage 78.7 high ESR 93 high. Basic metabolic profile totally unremarkable except for glucose 267 high, calcium 8.1 low, total bilirubin 0.1 low. Liver function tests are normal. Albumin 2.3 low. PT 12.0, INR 1.1, APTT 33.1, blood cultures x2 Negative so far. RADIOLOGIC: Tibia-fibula x-ray done shows soft tissue swelling without fracture. Lower extremity ultrasound was done shows normal examination. No Deep venous thrombosis. Right knee x-ray was done shows mild osteoarthritis soft tissue swelling without fracture. CT brain was done shows nothing acute. X-ray of the right foot was done shows one-sided changes of the first metatarsophalangeal joint with diffuse soft tissue swelling, old fracture distal second metatarsal, amputation third digit. MRI of the foot was done shows broad and ulceration of the medial arch area. The MRI findings suggest on superficial osteomyelitis of the underlying distal medial cuneiform and proximal first metatarsal base. No deeper extensive osseous signal changes are demonstrated. There is an osteoarthritis of the first metatarsophalangeal joint, but mainly the dorsal portion of the chronic-appearing arch osteomyelitis noted. ASSESSMENT/PLAN 1. This is a 57-year male who came to the ER diagnosed status post fall, got entangled and trip and fall. The patient has minor head injury, the CT of the brain does not show anything acute. 2. Neurologically the patient is stable. 3. Osteomyelitis of the right foot. The patient was seen by infectious disease doctor, Dr. Young. The patient is on vancomycin, discontinued the Unasyn. Podiatry consulted podiatry input note needed. 4. Anemia. We will check iron study, B12, folic acid level and check fecal occult blood test. 5. Diabetes mellitus ADA diet. 6. NovoLog low-dose sliding scale. 7. Check blood sugars, and adjust, monitor blood sugar. 8. Swelling of the left knee status post fall. 9. Check MRI of the left knee and consult orthopedic if needed. 10. History of anxiety. Continue home medication Xanax 2 mg p.o. q. 8-hour p.r.n. anxiety. 11. Protonix 40 mg p.o. daily. 12. History of hypertension continue home medication. BP is high. Will start clonidine 0.1 mg p.o. q. 6-hour p.r.n. if BP above 160/90. 13. Arthritis. Continue home medication. 14. Deep venous thrombosis prophylaxis, Lovenox 40 mg subcutaneous daily. 15. GI prophylaxis Protonix 40 mg p.o. daily. 16. We will manage the patient daily basis and make recommendations on a daily basis. 17. Check CBC, CMP in the morning. Last Silvestre MD EA/candealrio /9:28 AM /9:44 AM
[2017-03-27 12:00] VITALS: BP 136/80; PULSE 80; RESP 18; TEMP 97.5; O2SAT 95
--- NOTE | 2017-03-27 13:07 | MB ---
cc: LILLI RODRIGUEZ DPM DATE OF CONSULTATION 03/27/2017 DATE OF 1960 REASON FOR CONSULTATION Right foot ulceration. HISTORY OF PRESENT ILLNESS The patient is a 57-year-old male with a history of right neuropathic ulceration chronically for six months. He has been evaluated by podiatry in the past, but he is pending a follow up with a environmental specialist, Dr. Almazan. He has presented to the ED for left leg pain. REVIEW OF SYSTEMS Six point review of systems unremarkable. PAST MEDICAL HISTORY IDDM, neuropathy, right Charcot's foot. PAST SURGICAL HISTORY Right third digit amputation, right hallux resection. MEDICATIONS 1. Penicillin 2. Vancomycin FAMILY HISTORY Noncontributory SOCIAL HISTORY Noncontributory PHYSICAL EXAMINATION Right foot DP and PT palpable right mid foot collapse, right foot with a plantar central wound 5 x 5 cm. There is no probing to bone. There is no tendon exposed. Fibrogranular tissue. Positive serous drainage. No malodor. The right second digit with an ulceration to the distal tip. WBC on 03/27/2017 of 9.2, RBC of 3.21, H&H of 8.8 and 27.3. Right foot MRI completed 03/26/[address] Manning. Conclusion is superficial osteomyelitis medial cuneiform and proximal first met base. No abscesses noted. Collapse of the arch noted. ASSESSMENT/PLAN 1. DM with neuropathy 2. Right Charcot foot 3. Midfoot osteo 4. Right foot chronic ulceration. PLAN This patient is to begin IV antibiotics times six weeks and follow up with Dr. Almazan which he has a scheduled visit within this week. He has a walking boot at home. He will continue with Santyl versus gentamicin on the wound. There is no additional further surgical intervention. Lilli Rodriguez DPM SR/CATHERINE /12:45 PM /12:58 PM
[2017-03-27 14:36] LABS: TRANSFERRIN IRON PROFILE 153 MG/DL (200-360)
[2017-03-27 15:01] LABS: FERRITIN 57 NG/ML (26-388)
[2017-03-27 16:00] VITALS: BP 136/80; PULSE 80; RESP 16; TEMP 97.5; O2SAT 97
--- NOTE | 2017-03-27 18:28 | RADHPO ---
EXAM DATE/TIME: 03/27/2017 14:51 [facility] COMPARISON: KNEE LEFT LTD (1 OR 2VWS), March 26, 2017, 7:14. INDICATIONS : Left knee pain after fall. MEDICAL HISTORY : Hypertension. Diabetes mellitus type 2. SURGICAL HISTORY : Cardiac ablation. Right foot surgery. ENCOUNTER: Subsequent ACUITY: 3 day PAIN SCORE: 6/10 LOCATION: Left knee. TECHNIQUE: Multiplanar, multisequence MRI examination was performed without cont rast. FINDINGS: CRUCIATE LIGAMENTS: ACL and PCL are intact. MENISCI: Medial and lateral menisci are intact. COLLATERAL LIGAMENTS: MCL and LCL complexes are intact. BONE/CARTILAGE: Bone marrow signal is homogeneous. Articular cartilage signal is within normal li mits. MISCELLANEOUS: There is a tear of the distal quadriceps tendon just above the patella. This is a full thickness tear. The patellar tendon is intact. There does appear to be edema within the dista l aspect of the vastus medialis muscle and tendon. There is some edema within the lateral aspect of the patella. There is thinning of the patellar cartilage. There is a large effusion. Fluid does ex tend into the prepatellar soft tissues. CONCLUSION: Complete rupture of the distal aspect of the quadriceps tendon with a large effusion and fluid extending into the prepatellar soft tissues. Collin Harding MD on March 27, 2017 at 18:17 Board Certified Radiologist. This report was verified electronically.
[2017-03-27 20:00] VITALS: BP 147/77; PULSE 70; RESP 20; TEMP 97.9; O2SAT 100
[2017-03-27] MEDS: INSULIN DETEMIR 100 UNITS/ML VIAL SQ SCH (21:59)
[2017-03-27] MEDS ORDERED: VANCOMYCIN INJ 1,000 MG in SODIUM CHLOR 0.9% 250 ML INJ 250 ML IV ONE (22:45)
[2017-03-27] MEDS ORDERED: Vancomycin Consult Pharmacy 1 EA OTHER SCH (23:00)
[2017-03-28] VITALS: BP 156/75; PULSE 77; RESP 20; TEMP 99; O2SAT 100
[2017-03-28 06:07] LABS: AUTOMATED NEUTROPHIL # 6.7 TH/MM3 (1.8-7.7); BASOPHIL % 0.4 % (0.0-2.0); EOSINOPHIL # 0.3 TH/MM3 (0-0.4); EOSINOPHIL % 2.7 % (0.0-4.0); HEMATOCRIT 27.9 % (39.0-51.0); HEMO FLAGS DIFF FINAL; LYMPH % 17.7 % (9.0-44.0); LYMPHOCYTE # 1.7 TH/MM3 (1.0-4.8); MEAN CELL VOLUME 85.2 FL (80.0-100.0); MEAN CORPUSCULAR HEMOGLOBIN 28.6 PG (27.0-34.0); MEAN CORPUSCULAR HGB CONC 33.6 % (32.0-36.0); MONO % 7.7 % (0.0-8.0); NEUT % 71.5 % (16.0-70.0); PLATELET COUNT 345 TH/MM3 (150-450); RED BLOOD COUNT 3.27 MIL/MM3 (4.50-5.90); RED CELL DISTRIBUTION WIDTH 12.6 % (11.6-17.2); WHITE BLOOD COUNT 9.4 TH/MM3 (4.0-11.0)
[2017-03-28 06:13] LABS: CHLORIDE 104 MEQ/L (98-107); POTASSIUM 4.3 MEQ/L (3.5-5.1); SODIUM (NA) 141 MEQ/L (136-145)
[2017-03-28 06:16] LABS: ANION GAP 5 MEQ/L (5-15); BICARBONATE 32.4 MEQ/L (21.0-32.0); BLOOD UREA NITROGEN 14 MG/DL (7-18)
[2017-03-28 06:19] LABS: ALT (GPT) 10 U/L (12-78); AST (GOT) 9 U/L (15-37); GLOMERULAR FILTRATION RATE 120 ML/MIN (>89)
[2017-03-28 06:21] LABS: TOTAL BILIRUBIN ADULT 0.2 MG/DL (0.2-1.0)
[2017-03-28 06:22] LABS: ALKALINE PHOSPHATASE 113 U/L (45-117)
[2017-03-28] MEDS: INSULIN ASPART SUPPLEMENTAL SCALE SQ SCH ×4 (06:39→22:50)
[2017-03-28 08:00] VITALS: BP 165/86; PULSE 74; RESP 24; TEMP 96.7; O2SAT 99
--- NOTE | 2017-03-28 08:01 | HHI.PR ---
Subjective History of Present Illness Patient have Left knee swelling and pain MRI Done shows Quadriceps tendon rupture discuss with orthopedic Dr quinn patient have infection in right foot need to be infection free before surgery transfer to [facility]. d/w LUCIUS Breen at bed side Review of Systems Constitutional Constitutional: Fatigue, Weakness Vitals/Results Intake & Output 03/27/17 03/27/17 03/28/17 15:00 23:00 07:00 Intake Total 1320 ml 260 ml Output Total 550 ml Balance 1320 ml -290 ml Intake Oral 1320 ml 260 ml Output Urine Total 550 ml # Voids 5 # Bowel Movements 0 0 Vital Signs Vital Signs Date Time Temp Pulse Resp B/P Pulse Ox O2 Delivery O2 Flow Rate FiO2 03/28/17 00:00 99.0 77 20 156/75 100 03/27/17 20:00 97.9 70 20 147/77 100 03/27/17 16:00 97.5 80 16 136/80 97 03/27/17 12:00 97.5 80 18 136/80 95 CBC/BMP: 03/28/17 0535 03/28/17 0535 Lab Results Laboratory Tests Test 03/28/17 05:35 White Blood Count 9.4 TH/MM3 Red Blood Count 3.27 MIL/MM3 Hemoglobin 9.4 GM/DL Hematocrit 27.9 % Mean Corpuscular Volume 85.2 FL Mean Corpuscular Hemoglobin 28.6 PG Mean Corpuscular Hemoglobin 33.6 % Concent Red Cell Distribution Width 12.6 % Platelet Count 345 TH/MM3 Mean Platelet Volume 6.4 FL Neutrophils (%) (Auto) 71.5 % Lymphocytes (%) (Auto) 17.7 % Monocytes (%) (Auto) 7.7 % Eosinophils (%) (Auto) 2.7 % Basophils (%) (Auto) 0.4 % Neutrophils # (Auto) 6.7 TH/MM3 Lymphocytes # (Auto) 1.7 TH/MM3 Monocytes # (Auto) 0.7 TH/MM3 Eosinophils # (Auto) 0.3 TH/MM3 Basophils # (Auto) 0.0 TH/MM3 CBC Comment DIFF FINAL Differential Comment Sodium Level 141 MEQ/L Potassium Level 4.3 MEQ/L Chloride Level 104 MEQ/L Carbon Dioxide Level 32.4 MEQ/L Anion Gap 5 MEQ/L Blood Urea Nitrogen 14 MG/DL Creatinine 0.68 MG/DL Estimat Glomerular Filtration 120 ML/MIN Rate Random Glucose 267 MG/DL Calcium Level 8.3 MG/DL Total Bilirubin 0.2 MG/DL Aspartate Amino Transf 9 U/L (AST/SGOT) Alanine Aminotransferase 10 U/L (ALT/SGPT) Alkaline Phosphatase 113 U/L Total Protein 7.1 GM/DL Albumin 2.2 GM/DL Physical Exam General General Appearance: No Acute Distress, Comfortable Eyes Eye Exam: Pupils Equal, Pupils Reactive, Sclera White, Extraocular Movement Intact Throat Throat Exam: Oral Mucosa [place] & Moist, Oral Pharynx Normal Neck Neck Exam: Neck Supple, Trachea Midline Pulmonary Resp Exam: Clear Bilaterally, Breath Sounds Equal Cardiology CV Exam: Regular, Normal Sinus Rhythm Gastrointestinal/Abdomen GI Exam: Soft, Non-Tender, Bowel Sounds Present Musculoskeletal MS Remarks Swelling and tenderness of left knee. Right foot wound. Right foot DP and PT palpable right mid foot collapse, right foot with a plantar central wound 5 x 5 cm. There is no probing to bone. There is no tendon exposed. Fibrogranular tissue. Positive serous drainage. No malodor. The right second digit with an ulceration to the distal tip. Integumentary Skin Exam: Warm Skin Remarks Right foot wound. Right foot DP and PT palpable right mid foot collapse, right foot with a plantar central wound 5 x 5 cm. There is no probing to bone. There is no tendon exposed. Fibrogranular tissue. Positive serous drainage. No malodor. The right second digit with an ulceration to the distal tip. Extremeties Extremities Exam: No Edema Neurologic Neuro Exam: Alert, Awake, Oriented, Speech Clear, Moving All Extremities, No Focal Deficits Psychiatric Psych Exam: Appropriate Responses VTE Prophylaxis VTE Prophylaxis Meds: Lovenox PUD Prophylasis PUD Prophylaxis: Protonix Assessment/Plan Assessment/Plan ASSESSMENT/PLAN 1. This is a 57-year male who came to the ER diagnosed status post fall, got entangled and trip and fall. The patient has minor head injury, the CT of the brain does not show anything acute. 2. Neurologically the patient is stable. 3. Osteomyelitis of the right foot. The patient was seen by infectious disease doctor, Dr. Young. The patient is on vancomycin, discontinued the Unasyn. Podiatry input noted. 4. Anemia. We will check iron study, B12, folic acid level and check fecal occult blood test...show low Iron and B12 deficiency started on replacement. 5. Diabetes mellitus ADA diet. 6. NovoLog low-dose sliding scale. 7. Check blood sugars, and adjust, monitor blood sugar. 8. Swelling of the left knee status post fall. 9. Check MRI of the left knee and consult orthopedic if needed. 10. History of anxiety. Continue home medication Xanax 2 mg p.o. q. 8-hour p.r.n. anxiety. 11.GI Prophylaxis .. Protonix 40 mg p.o. daily. 12. History of hypertension continue home medication. BP is high. on clonidine 0.1 mg p.o. q. 6-hour p.r.n. if BP above 160/90. 13. Arthritis. Continue home medication. 14. Deep venous thrombosis prophylaxis, Lovenox 40 mg subcutaneous daily. 15. Left knee swelling and pain MRI Done shows Quadriceps tendon rupture discuss with orthopedic Dr quinn patient have infection in right foot need to be infection free before surgery. We will manage the patient daily basis and make recommendations on a daily basis. Check CBC, CMP in the morning. Discussed Condition with: Patient Last Ybarra MD March 28, 2017 08:01
[2017-03-28] MEDS ORDERED: VANCOMYCIN INJ 1,000 MG in SODIUM CHLOR 0.9% 250 ML INJ 250 ML IV SCH (08:15)
[2017-03-28] MEDS: VANCOMYCIN INJ 1,750 MG in SODIUM CHLORID 0.9% 500 ML INJ 500 ML IV SCH ×2 (09:01→20:26)
[2017-03-28] MEDS: RAMIPRIL 2.5 MG CAP PO SCH ×2 (09:06→20:26)
[2017-03-28] MEDS: FUROSEMIDE 20 MG TAB PO SCH ×2 (09:06→20:27)
[2017-03-28] MEDS: DILTIAZEM-CD 240 MG CAP ER PO SCH (09:06)
[2017-03-28] MEDS: PANTOPRAZOLE SOD 40 MG DELAYED RELEASE TAB PO SCH (09:06)
[2017-03-28] MEDS: HYDROmorphone HCL PF 1 MG/ML VIAL IV PUSH PRN ×4 (09:19→22:49)
[2017-03-28] MEDS: ALPRAZolam 1 MG TAB PO PRN (09:20)
[2017-03-28 12:00] VITALS: BP 160/86; PULSE 71; RESP 20; TEMP 98.3; O2SAT 99
--- NOTE | 2017-03-28 12:12 | PD.ORT.PN ---
Subjective Subjective Remarks Patient felt 3 days ago at home when running to take care of his animals. He had significant pain to his left knee and was unable to actively straighten or stand on it. He was evaluated in the emergency room for ulcerations on his right foot but x-rays showed no significant fracture. MRI was performed and shows a complete rupture of the quadriceps of the left knee. Infectious disease was also consulted due to wound infection to the right foot. They will continue to be managing with antibiotics and podiatry will follow and office. He has no other injuries , but states that he has chronic diabetic neuropathy which he has no sensation in bilateral feet Objective Vitals Vital Signs Date Time Temp Pulse Resp B/P Pulse Ox O2 Delivery O2 Flow Rate FiO2 03/28/17 08:00 96.7 74 24 165/86 99 03/28/17 00:00 99.0 77 20 156/75 100 03/27/17 20:00 97.9 70 20 147/77 100 03/27/17 16:00 97.5 80 16 136/80 97 I/O 03/27/17 03/27/17 03/27/17 03/28/17 03/28/17 03/28/17 06:59 14:59 22:59 06:59 14:59 22:59 Intake Total 500 ml 1320 ml 260 ml Output Total 550 ml Balance 500 ml 1320 ml -290 ml Intake Oral 500 ml 1320 ml 260 ml Output Urine Total 550 ml # Voids 4 5 # Bowel Movements 1 0 0 Result Diagram: 03/28/17 0535 03/28/17 0535 Imaging Last 72 hours Impressions Knee MRI 03/27/17 0000 Signed Impressions: Service Date/Time: Monday, March 27, 2017 14:51 - CONCLUSION: Complete rupture of the distal aspect of the quadriceps tendon with a large effusion and fluid extending into the prepatellar soft tissues. Collin Harding MD Tibia/Fibula X-Ray 03/26/17 0000 Signed Impressions: Service Date/Time: Sunday, March 26, 2017 07:17 - CONCLUSION: Soft tissue swelling without fracture. Dawood Donnelly MD Lower Extremity Ultrasound 03/26/17 0000 Signed Impressions: Service Date/Time: Sunday, March 26, 2017 08:10 - CONCLUSION: Normal examination. Collin Ramon MD Knee X-Ray 5/1/17 0000 Signed Impressions: Service Date/Time: Sunday, March 26, 2017 07:14 - CONCLUSION: 1. Mild osteoarthritis. 2. Soft tissue swelling without fracture. Dawood Donnelly MD Head CT 03/26/17 Signed Impressions: Service Date/Time: Sunday, March 26, 2017 07:00 - CONCLUSION: No acute intracranial abnormality is identified. Collin Galarza MD Foot X-Ray 03/26/17 Signed Impressions: Service Date/Time: Sunday, March 26, 2017 07:21 - CONCLUSION: 1. Erosive arthritic changes of the first metatarsophalangeal joint with diffuse soft tissue swelling. 2. Old fracture distal second metatarsal. 3. Amputation third digit. Dawood Donnelly MD Foot MRI 03/26/17 Signed Impressions: Service Date/Time: Sunday, March 26, 2017 15:31 - CONCLUSION: 1. Broad and deep ulceration of the medial arch area and with MRI findings suggesting superficial osteomyelitis of the underlying distal medial cuneiform and proximal first metatarsal base. No deep or extensive osseous signal changes are demonstrated. 2. There is osteoarthritis of the first tarsometatarsal joint but mainly the dorsal portion of the. Chronic appearing arch collapse is noted. 1. Collin Wright MD Objective Remarks Bilateral upper extremities reveal no pain with shoulder elbow wrist or fingers. He does have some atrophy from previous injuries he has intact sensation in all his fingers and able to fully extend and flex his fingers. Right lower extremity reveals no pain with hip or knee range of motion. He is dressings over his foot which are clean and dry. Left lower extremity: No pain with palpation to hip. He has moderate swelling of the knee and proximal with significant tenderness over the quadriceps. He has mild tenderness over the patella tendon. He is unable to actively keep his leg straight with leg lift. He has intact sensation down to his ankle but has minimal sensation to no sensation over the dorsum and plantar surface of his foot. He is able to plantarflex and dorsiflex his foot Assessment & Plan Assessment and Plan Left quadriceps tendon rupture Treatment options are discussed with Tyron concerning his quadriceps tendon. He was told by infectious disease they did not want him to proceed with surgery for 2-3 days of IV antibiotics. With the complicating factor of diabetes they wanted to make sure that the infection was under control before an incision was made over the contralateral knee. Options are to remain in hospital and have surgery performed on Sunday or Sunday or discharge to home and follow up in orthopedic clinic for outpatient therapy. With the significant wounds of his right foot and with the quadricep tendon rupture ambulating is difficult. Is recommended that he go into a knee immobilizer and be nonweightbearing on the left lower extremity. He is to avoid any active leglifts or any flexion of the knee. He'll continue to ice and elevate. We will discuss with his admitting medical doctor as well as infectious disease as when they feel that he is safe to proceed with surgery. Patient's images, complaints him a exam and plan are reviewed and agreed with by Dr. Verdugo. Jose Sherman Jr. March 28, 2017 12:12
[2017-03-28 16:00] VITALS: BP 152/84; PULSE 66; RESP 20; TEMP 97.5; O2SAT 100
[2017-03-28] MEDS: CYANOCOBALAMIN 1,000 MCG TAB PO SCH (18:19)
[2017-03-28 20:00] VITALS: BP_SYST 134; BP_SYST 151; BP_DIAS 71; BP_DIAS 87; PULSE 71; PULSE 77; RESP 20; TEMP 97.3; O2SAT 98; O2SAT 99
[2017-03-28] MEDS: INSULIN DETEMIR 100 UNITS/ML VIAL SQ SCH (20:21)
[2017-03-28] MEDS: FERROUS SULFATE 325 MG (65 MG ELEMENTAL IRON) TAB PO SCH (20:28)
--- NOTE | 2017-03-28 21:26 | HHI.IDPN ---
Subjective Subjective Remarks pt was diagnosed with complete traumatic rupture of L quadriceps tendon. He was seen by ortho with the option of delayed vs immediate surgery Seen by Dr Michael law's noted MRI concerning for osteo Antibiotics vancomycin Allergies: Coded Allergies: *MDRO Multi-Drug Resistant Organism (Verified Adverse Reaction, Unknown, MRSA, 04/02/17) MRSA (foot wound) - 02/12/15, 11/12/16, 03/29/17; (toe) - 03/2016 Objective . Vital Signs Date Time Temp Pulse Resp B/P Pulse Ox O2 Delivery O2 Flow Rate FiO2 03/28/17 20:00 77 20 151/87 99 03/28/17 16:00 97.5 66 20 152/84 100 03/28/17 12:00 98.3 71 20 160/86 99 03/28/17 08:00 96.7 74 24 165/86 99 03/28/17 00:00 99.0 77 20 156/75 100 03/27/17 03/27/17 03/28/17 15:00 23:00 07:00 Intake Total 1320 ml 260 ml Output Total 550 ml Balance 1320 ml -290 ml Intake Oral 1320 ml 260 ml Output Urine Total 550 ml # Voids 5 # Bowel Movements 0 0 . Laboratory Tests Test 03/27/17 03/28/17 05:33 05:35 White Blood Count 9.2 TH/MM3 9.4 TH/MM3 Red Blood Count 3.21 MIL/MM3 3.27 MIL/MM3 Hemoglobin 8.8 GM/DL 9.4 GM/DL Hematocrit 27.3 % 27.9 % Mean Corpuscular Volume 84.9 FL 85.2 FL Mean Corpuscular Hemoglobin 27.4 PG 28.6 PG Mean Corpuscular Hemoglobin 32.3 % 33.6 % Concent Red Cell Distribution Width 12.4 % 12.6 % Platelet Count 336 TH/MM3 345 TH/MM3 Mean Platelet Volume 6.7 FL 6.4 FL Neutrophils (%) (Auto) 78.7 % 71.5 % Lymphocytes (%) (Auto) 12.3 % 17.7 % Monocytes (%) (Auto) 6.4 % 7.7 % Eosinophils (%) (Auto) 2.1 % 2.7 % Basophils (%) (Auto) 0.5 % 0.4 % Neutrophils # (Auto) 7.3 TH/MM3 6.7 TH/MM3 Lymphocytes # (Auto) 1.1 TH/MM3 1.7 TH/MM3 Monocytes # (Auto) 0.6 TH/MM3 0.7 TH/MM3 Eosinophils # (Auto) 0.2 TH/MM3 0.3 TH/MM3 Basophils # (Auto) 0.0 TH/MM3 0.0 TH/MM3 CBC Comment DIFF FINAL DIFF FINAL Differential Comment Laboratory Tests Test 03/27/17 03/28/17 05:33 05:35 Sodium Level 140 MEQ/L 141 MEQ/L Potassium Level 3.9 MEQ/L 4.3 MEQ/L Chloride Level 103 MEQ/L 104 MEQ/L Carbon Dioxide Level 28.9 MEQ/L 32.4 MEQ/L Anion Gap 8 MEQ/L 5 MEQ/L Blood Urea Nitrogen 13 MG/DL 14 MG/DL Creatinine 0.63 MG/DL 0.68 MG/DL Estimat Glomerular Filtration 131 ML/MIN 120 ML/MIN Rate Random Glucose 267 MG/DL 267 MG/DL Calcium Level 8.1 MG/DL 8.3 MG/DL Iron Level 21 MCG/DL Total Iron Binding Capacity 214 MCG/DL Percent Iron Saturation 9.8 % Transferrin 153 MG/DL Ferritin 57 NG/ML Total Bilirubin 0.1 MG/DL 0.2 MG/DL Aspartate Amino Transf 9 U/L 9 U/L (AST/SGOT) Alanine Aminotransferase 12 U/L 10 U/L (ALT/SGPT) Alkaline Phosphatase 109 U/L 113 U/L Total Protein 7.2 GM/DL 7.1 GM/DL Albumin 2.3 GM/DL 2.2 GM/DL Vitamin B12 Level 314 PG/ML Folate 13.5 NG/ML Microbiology Date/Time Procedure Status Source Growth 03/26/17 06:30 Aerobic Blood Culture - Preliminary Resulted Blood Peripheral NO GROWTH IN 2 DAYS 03/26/17 06:30 Anaerobic Blood Culture - Preliminary Resulted Blood Peripheral NO GROWTH IN 2 DAYS 03/26/17 06:45 Aerobic Blood Culture - Preliminary Resulted Blood Peripheral NO GROWTH IN 2 DAYS 03/26/17 06:45 Anaerobic Blood Culture - Preliminary Resulted Blood Peripheral NO GROWTH IN 2 DAYS Imaging Last Impressions Knee MRI 03/27/17 0000 Signed Impressions: Service Date/Time: Monday, March 27, 2017 14:51 - CONCLUSION: Complete rupture of the distal aspect of the quadriceps tendon with a large effusion and fluid extending into the prepatellar soft tissues. Collin Harding MD Tibia/Fibula X-Ray 03/26/17 Signed Impressions: Service Date/Time: Sunday, March 26, 2017 07:17 - CONCLUSION: Soft tissue swelling without fracture. Dawood Donnelly MD Lower Extremity Ultrasound 03/26/17 Signed Impressions: Service Date/Time: Sunday, March 26, 2017 08:10 - CONCLUSION: Normal examination. Collin Ramon MD Knee X-Ray 03/26/17 Signed Impressions: Service Date/Time: Sunday, March 26, 2017 07:14 - CONCLUSION: 1. Mild osteoarthritis. 2. Soft tissue swelling without fracture. Dawood Donnelly MD Head CT 03/26/17 Signed Impressions: Service Date/Time: Sunday, March 26, 2017 07:00 - CONCLUSION: No acute intracranial abnormality is identified. Collin Galarza MD Foot X-Ray 03/26/17 Signed Impressions: Service Date/Time: Sunday, March 26, 2017 07:21 - CONCLUSION: 1. Erosive arthritic changes of the first metatarsophalangeal joint with diffuse soft tissue swelling. 2. Old fracture distal second metatarsal. 3. Amputation third digit. Dawood Donnelly MD Foot MRI 03/26/17 Signed Impressions: Service Date/Time: Sunday, March 26, 2017 15:31 - CONCLUSION: 1. Broad and deep ulceration of the medial arch area and with MRI findings suggesting superficial osteomyelitis of the underlying distal medial cuneiform and proximal first metatarsal base. No deep or extensive osseous signal changes are demonstrated. 2. There is osteoarthritis of the first tarsometatarsal joint but mainly the dorsal portion of the. Chronic appearing arch collapse is noted. 1. Collin Wright MD Physical Exam CONSTITUTIONAL/GENERAL: This is an adequately nourished patient, in no apparent distress. TUBES/LINES/DRAINS: SKIN: No jaundice, rashes, or lesions. Skin temperature appropriate. Not diaphoretic. MUSCULOSKELETAL: Extremities without clubbing, cyanosis, BL hammer toes Pls palpable bl we4ll perfused L foot without wounds R foot wioth 4-5 cm stage 3 plantar ulcer with small amoun of serous dc surrounded by thick callus no odor + some edema, minimal erytha 2 nd toe with meceration of the tip well healed 3 rd toe amputation sute Pedal pulses spalpable b/l Assessment & Plan Remarks DFI R foot with planter indected ulcer and ? 2nd toe osteo - MRI findings suggesting superficial osteomyelitis of the underlying distal medial cuneiform and proximal first metatarsal base. - remote clx + MRSA, enterococcus (as of oct 2016) Recently hospitalisex for MRDA woundinfx complete traumatic rupture of L quadriceps tendon ortho ff cont vancomycin bone bx for clx will be helpful Pt actually is relayed to me that he transferred care to Dr Spring will ask Dr Spring to see him dw Dr Nelson wilson RN dw pt @ b/s Anitra Young MD March 28, 2017 21:26
[2017-03-29] VITALS: BP 134/71; PULSE 71; RESP 20; TEMP 97.3; O2SAT 98
[2017-03-29] MEDS: HYDROmorphone HCL PF 1 MG/ML VIAL IV PUSH PRN ×5 (03:05→22:47)
[2017-03-29 06:47] LABS: AUTOMATED NEUTROPHIL # 6.8 TH/MM3 (1.8-7.7); BASOPHIL # 0.1 TH/MM3 (0-0.2); BASOPHIL % 0.7 % (0.0-2.0); EOSINOPHIL # 0.3 TH/MM3 (0-0.4); EOSINOPHIL % 2.7 % (0.0-4.0); HEMATOCRIT 28.3 % (39.0-51.0); HEMO FLAGS DIFF FINAL; LYMPH % 15.8 % (9.0-44.0); LYMPHOCYTE # 1.5 TH/MM3 (1.0-4.8); MEAN CELL VOLUME 84.1 FL (80.0-100.0); MEAN CORPUSCULAR HEMOGLOBIN 27.7 PG (27.0-34.0); MONO % 6.9 % (0.0-8.0); NEUT % 73.9 % (16.0-70.0); PLATELET COUNT 389 TH/MM3 (150-450); RED BLOOD COUNT 3.37 MIL/MM3 (4.50-5.90); RED CELL DISTRIBUTION WIDTH 12.5 % (11.6-17.2); WHITE BLOOD COUNT 9.3 TH/MM3 (4.0-11.0)
[2017-03-29 06:53] LABS: CHLORIDE 102 MEQ/L (98-107); POTASSIUM 3.9 MEQ/L (3.5-5.1); SODIUM (NA) 140 MEQ/L (136-145)
[2017-03-29 07:00] LABS: ANION GAP 8 MEQ/L (5-15); BICARBONATE 30.5 MEQ/L (21.0-32.0); BLOOD UREA NITROGEN 13 MG/DL (7-18)
[2017-03-29 07:03] LABS: ALT (GPT) 12 U/L (12-78); AST (GOT) 10 U/L (15-37); GLOMERULAR FILTRATION RATE 118 ML/MIN (>89)
[2017-03-29 07:04] LABS: TOTAL BILIRUBIN ADULT 0.2 MG/DL (0.2-1.0)
[2017-03-29 07:06] LABS: ALKALINE PHOSPHATASE 115 U/L (45-117)
--- NOTE | 2017-03-29 07:26 | MB ---
cc: EVELYN MCCLAIN,JOSE Garcia PA-C DATE OF CONSULTATION 03/28/[address] Last Ybarra REASON FOR CONSULTATION Left knee quadriceps tendon rupture. HISTORY OF PRESENT ILLNESS Tyron is a 57-year-old male with a history of diabetes and bilateral neuropathy. He has dealt with right neuropathic ulceration chronically over the past 6 months. He has been evaluated by podiatry in the past and 2 days ago when running in his yard to get to his dogs he lost his balance and fell. He had significant pain in his left knee and was not able to stand or straighten out his leg actively. He was brought to the emergency room and was evaluated. X-rays were negative. MRI was performed on 03/27/2017 which showed complete rupture of the quadriceps tendon of the left knee. REVIEW OF SYSTEMS Denies fevers, chills, blurred vision, double vision, chest pains, palpitation, shortness of breath, cough, nausea, vomiting, diarrhea, constipation, dysuria, chronic rashes, heat or cold intolerances, easy bruising or blood clots or depression or anxiety. He complains of pain to left knee. PAST MEDICAL HISTORY 1. Diabetes. 2. Neuropathy. 3. Right Charcot foot. SOCIAL HISTORY Denies smoking, drinking or taking drugs at home. He lives was alone and is on disability. ALLERGIES NO KNOWN DRUG ALLERGIES. MEDICATIONS 1. Keflex. 2. Xanax. 3. Oxycodone. 4. Ramipril. 5. Lantus. 6. Furosemide. 7. Protonix. PHYSICAL EXAMINATION VITAL SIGNS: Temperature of 98.3, pulse of 71, blood pressure is 160/86, pulse oximetry of 99. GENERAL: Tyron is a 57-year-old male who is well-nourished, well-developed. Examined bedside. He is in no acute distress. HEENT: Normocephalic, atraumatic. Pupils equal and reactive to light and accommodation. Extraocular movements are intact. Oral mucosa moist. NECK: The neck is supple with no lymphadenopathy. Trachea is midline. CARDIOVASCULAR: Regular rate and rhythm. LUNGS: Clear to auscultation. No accessory muscle use. ABDOMEN: Soft, nondistended. SKIN: Pitting edema distally. Left knee ecchymosis and swelling with edema. MUSCULOSKELETAL: Examination of bilateral upper extremities revealed no decreased range of motion, pain with motion of the shoulders, elbows or wrists. He has intact sensation over the radial, ulnar and median nerve distributions bilaterally. He does have atrophy of bilateral forearms. Examination of the right lower extremity reveals no pain with hip or knee range of motion. He has dressings over the foot that are clean, dry and intact with no significant odor. The left lower extremity reveals no pain with hip range of motion. He has no pain with ankle range of motion and has good capillary refills. He has no sensation from the ankle to the toes. Examination of the knee reveals skin is intact. He has swelling +2 with significant tenderness over the insertion of the quad tendon to the patella. There is a palpable defect. LABORATORY DATA White blood cell count is 9.4, hemoglobin is 9.4. Hematocrit is 27.9. IMAGING STUDIES Knee x-ray obtained on 03/26/2017 shows mild osteoarthritis with soft tissue injury without fracture. The patella is riding low over the distal femur. MRI of the knee images on 03/27/2017 showed complete rupture of the distal aspect of the quadriceps tendon with a large joint effusion spinning around the prepatellar soft tissues. ASSESSMENT Left complete rupture of quadriceps tendon. PLAN At this point it is explained to Tyron that surgical intervention needs to be proceeded with for surgical fixation of the quadriceps tendon. He is under podiatry and infectious disease management for the right foot with osteomyelitis and chronic wound infection. Since the contralateral leg does not have any active infections, we would like to proceed in the next few days for surgical fixation of the quadriceps tendon. After discussion with Dr. Mcclain, he would like to proceed with this on Sunday. We will [facility] or proceed with surgery on the [facility] for fixation. We will plan on him being n.p.o. after midnight on night. He will be fitted for a knee immobilizer and will be non-weightbearing on the right lower extremity. Thank you for the consultation. The patient's x-rays and plan are reviewed and agreed with by Dr. Mcclain. Dictated by Jose Sherman, PAC History, past medical history, social history, review of systems, physical exam , radiographs, MRI, assessment, and plan were reviewed. Patient will need surgical repair of his quadriceps tendon rupture. I will plan on surgery this week. A mid-level provider in my office (nurse practitioner or physician tv production assistant) may see this patient on follow-up visits and continue to implement the objectives of this plan including: Starting or adjusting medications, injections, cast application, orthotics, brace application, physical therapy, radiological studies (including x-ray, MRI, CT, ultrasound, bone scan), vascular studies, neurologic studies, specialist consultation, and proceeding with surgical management, as appropriate. MD NAM Linton/PASCALE /4:49 PM /7:22 AM SETH
[2017-03-29] MEDS ORDERED: PHARMACY ORDERED LAB ONE (07:45)
[2017-03-29 08:00] VITALS: BP 159/83; PULSE 74; RESP 18; TEMP 97.2; O2SAT 100
--- NOTE | 2017-03-29 08:29 | PD.POD.CON ---
Patient Intake Chief Complaint Chronic diabetic ulceration of the right foot Consult Requested by Dr. Young from infectious disease Reason for Consult Evaluation and treatment of ulceration Primary Care Physician Reilly Jaime MD History of Present Illness Patient is a 57-year-old male diabetic with a chronic ulceration on the arch of the right foot. Amputation fell at home and injured his left knee which is being followed by [facility]. MRI of the right foot shows small amount of osteomyelitis of the midfoot and cuneiform. Excess to see the patient concerning the infection. 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 & 11/12/16; (toe) - 03/2016 Preferred Language to Discuss: Slovenian Barriers to Learning: None Teaching Method: Discussion Vital Signs Date Time Temp Pulse Resp B/P Pulse Ox O2 Delivery O2 Flow Rate FiO2 03/29/17 00:00 97.3 71 20 134/71 98 03/28/17 20:00 77 20 151/87 99 03/28/17 16:00 97.5 66 20 152/84 100 03/28/17 12:00 98.3 71 20 160/86 99 Pain scale used: 0-10 numeric scale Pain score: 1 Medications Current Medications Clindamycin Phosphate/Sodium Chloride (Cleocin Inj/NS Inj) 104 ml @ 208 mls/hr ONCE ONCE IV Last administered on 03/26/17 07:34; Start 03/26/17 at 06:45; Stop 03/26/17 at 14:23; Status DC Morphine Sulfate 6 mg 6 mg ONCE ONCE IV PUSH Last administered on 03/26/17 07: 35; Start 03/26/17 at 06:45; Stop 03/26/17 at 06:46; Status DC Vancomycin HCl/ Sodium Chloride (Vancomycin Inj/ NS 250 ml Inj) 250 ml @ 250 mls/hr ONCE ONCE IV Last administered on 03/26/17 09:15; Start 03/26/17 at 09: 15; Stop 03/26/17 at 10:14; Status DC Alprazolam (Xanax) 2 mg Q8H PRN PO ANXIETY; Start 03/26/17 at 11:00 Diltiazem HCl (Cardizem Cd) 240 mg DAILY PO Last administered on 03/28/17 09:06 ; Start 03/27/17 at 09:00 Furosemide (Lasix) 20 mg BID PO Last administered on 03/28/17 20:27; Start 03/26 at 21:00 Insulin Detemir (Levemir Inj) 10 units HS SQ Last administered on 03/28/17 20: 21; Start 03/26/17 at 21:00 Pantoprazole Sodium (Protonix) 40 mg DAILY PO Last administered on 03/28/17 09: 06; Start 03/27/17 at 09:00 Ramipril (Altace) 2.5 mg BID PO Last administered on 03/28/17 20:26; Start 03/26 at 21:00 Non-Formulary Medication 30 mg 30 mg Q4HR PO PAIN; Start 03/26/17 at 12:00; Stop 03/26/17 at 12:15; Status DC Ampicillin Sodium/ Sulbactam Sodium/ Sodium Chloride (Unasyn Inj/NS Inj) 100 ml @ 200 mls/hr Q6H IV Last administered on 03/26/17 13:38; Start 03/26/17 at 12: 00; Stop 03/26/17 at 14:23; Status DC Dextrose (D50w (Vial) Inj) 25 ml UNSCH PRN IV PUSH HYPOGLYCEMIA-SEE COMMENTS; Start 03/26/17 at 11:15 Glucagon (Glucagon Inj) 1 mg UNSCH PRN OTHER HYPOGLYCEMIA-SEE COMMENTS; Start 03/26/17 at 11:15 Insulin Aspart (NovoLOG SUPPLEMENTAL SCALE) 1 ACHS SLIDING SCALE SQ Last administered on 03/28/17 22:50; Start 03/26/17 at 16:00 Oxycodone HCl (Roxicodone) 30 mg Q4H PRN PO PAIN SCALE 1 TO 4 Last administered on 03/29/17 05:58; Start 03/26/17 at 13:00 Gadodiamide (Omniscan Pf Inj) 20 ml STK-MED ONCE IV ; Start 03/26/17 at 17:29; Stop 03/26/17 at 17:30; Status DC Clonidine 0.1 mg 0.1 mg Q6H PRN PO SBP>160, DBP>90; Start 03/27/17 at 09:30 Vancomycin HCl 1000 mg/Sodium Chloride 250 ml @ 250 mls/hr ONCE ONCE IV Last administered on 03/27/17 23:05; Start 03/27/17 at 22:45; Stop 03/27/17 at 23:44; Status DC Pharmacy Profile Note 0 ml @ 0 mls/hr UNSCH OTHER ; Start 03/27/17 at 23:00 Vancomycin HCl/ Sodium Chloride (Vancomycin Inj/ NS 500 ml Inj) 517.5 ml @ 250 mls/hr Q12H IV Last administered on 03/28/17 20:26; Start 03/28/17 at 08:00 Miscellaneous Information SPECIFIC LAB TO BE SIDNEY... ONCE ONCE .XX ; Start at 07:45; Stop 03/29/17 at 07:46; Status DC Vancomycin HCl/ Sodium Chloride (Vancomycin Inj/ NS 250 ml Inj) 250 ml @ 250 mls/hr Q24H IV ; Start 03/28/17 at 08:15; Status UNV Hydromorphone HCl (Dilaudid Pf Inj) 0.5 mg Q4H PRN IV PUSH PAIN SCALE 5 TO 10 Last administered on 03/28/17 13:42; Start 03/28/17 at 08:15; Stop 03/28/17 at 16: 59; Status DC Cyanocobalamin (Vitamin B12) 1,000 mcg DAILY PO Last administered on 03/28/17 18:19; Start 03/28/17 at 16:30 Ferrous Sulfate (Ferrous Sulfate) 325 mg BID PO Last administered on 03/28/17 20:28; Start 03/28/17 at 21:00 Hydromorphone HCl (Dilaudid Pf Inj) 1 mg Q4H PRN IV PUSH PAIN SCALE 5 TO 10 Last administered on 03/29/17 03:05; Start 03/28/17 at 16:55 Past, Family & Social History Past Medical History PFSH Reviewed: Yes Endocrine: REPORTS HX OF: Diabetes mellitus Gastrointestinal: REPORTS HX OF: GERD Neurologic: REPORTS HX OF: Peripheral neuropathy Review of Systems Musculoskeletal: COMPLAINS OF: Joint pain/swell/dysarthr, Deformaties Neurological: COMPLAINS OF: Numbness/tingling, Changes in sensation Exam-Podiatry Constitutional General appearance: comfortable Nutritional status: normal Orientation: alert and oriented x3 Dermatological Exam Skin Temp - Right: Within Normal Limits Skin Texture - Right: Within Normal Limits Skin Elasticity - Right: Within Normal Limits Skin Tugor - Right: Within Normal Limits Hair Growth - Right: Within Normal Limits Pigmentation - Right: Within Normal Limits Skin Temp - Left: Within Normal Limits Skin Texture - Left: Within Normal Limits Skin Elasticity - Left: Within Normal Limits Skin Tugor - Left: Within Normal Limits Hair Growth - Left: Within Normal Limits Pigmentation - Left: Within Normal Limits Ulcers: Location/Measurements Ulceration plantar medial aspect of the right arch probes down to bone. The ulceration measures approximately 2.5 cm x 2 cm. There is some purulent drainage coming from the wound. There is surrounding hyperkeratotic tissue. Vascular/Lymphatic Exam R Dorsails Pedis: Doppler L Dorsails Pedis: Doppler R Posterior Tibial: Doppler L Posterior Tibial: Doppler Neurologic Exam Present on right: Tingling, Paraesthesia Present on left: Tingling, Paraesthesia Musculoskeletal Exam Details Left knee is in an immobilizer. Previous amputation of the third toe of the right foot. Some Charcot changes of the right midfoot. Lab and Radiology Results Laboratory Laboratory Tests Test 03/28/17 03/29/17 05:35 05:40 White Blood Count 9.4 TH/MM3 9.3 TH/MM3 Red Blood Count 3.27 MIL/MM3 3.37 MIL/MM3 Hemoglobin 9.4 GM/DL 9.3 GM/DL Hematocrit 27.9 % 28.3 % Mean Corpuscular Volume 85.2 FL 84.1 FL Mean Corpuscular Hemoglobin 28.6 PG 27.7 PG Mean Corpuscular Hemoglobin 33.6 % 33.0 % Concent Red Cell Distribution Width 12.6 % 12.5 % Platelet Count 345 TH/MM3 389 TH/MM3 Mean Platelet Volume 6.4 FL 6.7 FL Neutrophils (%) (Auto) 71.5 % 73.9 % Lymphocytes (%) (Auto) 17.7 % 15.8 % Monocytes (%) (Auto) 7.7 % 6.9 % Eosinophils (%) (Auto) 2.7 % 2.7 % Basophils (%) (Auto) 0.4 % 0.7 % Neutrophils # (Auto) 6.7 TH/MM3 6.8 TH/MM3 Lymphocytes # (Auto) 1.7 TH/MM3 1.5 TH/MM3 Monocytes # (Auto) 0.7 TH/MM3 0.6 TH/MM3 Eosinophils # (Auto) 0.3 TH/MM3 0.3 TH/MM3 Basophils # (Auto) 0.0 TH/MM3 0.1 TH/MM3 CBC Comment DIFF FINAL DIFF FINAL Differential Comment Laboratory Tests Test 03/28/17 03/29/17 05:35 05:40 Sodium Level 141 MEQ/L 140 MEQ/L Potassium Level 4.3 MEQ/L 3.9 MEQ/L Chloride Level 104 MEQ/L 102 MEQ/L Carbon Dioxide Level 32.4 MEQ/L 30.5 MEQ/L Anion Gap 5 MEQ/L 8 MEQ/L Blood Urea Nitrogen 14 MG/DL 13 MG/DL Creatinine 0.68 MG/DL 0.69 MG/DL Estimat Glomerular Filtration 120 ML/MIN 118 ML/MIN Rate Random Glucose 267 MG/DL 324 MG/DL Calcium Level 8.3 MG/DL 8.4 MG/DL Total Bilirubin 0.2 MG/DL 0.2 MG/DL Aspartate Amino Transf 9 U/L 10 U/L (AST/SGOT) Alanine Aminotransferase 10 U/L 12 U/L (ALT/SGPT) Alkaline Phosphatase 113 U/L 115 U/L Total Protein 7.1 GM/DL 7.1 GM/DL Albumin 2.2 GM/DL 2.2 GM/DL Microbiology Date/Time Procedure Status Source Growth 03/28/17 22:00 Gram Stain - Final Resulted Wound Foot 03/28/17 22:00 Wound Culture Resulted Wound Foot Pending Radiology Last Impressions Knee MRI 03/27/17 0000 Signed Impressions: Service Date/Time: Monday, March 27, 2017 14:51 - CONCLUSION: Complete rupture of the distal aspect of the quadriceps tendon with a large effusion and fluid extending into the prepatellar soft tissues. Collin Harding MD Tibia/Fibula X-Ray 03/26/17 0000 Signed Impressions: Service Date/Time: Sunday, March 26, 2017 07:17 - CONCLUSION: Soft tissue swelling without fracture. Dawood Donnelly MD Lower Extremity Ultrasound 03/26/17 0000 Signed Impressions: Service Date/Time: Sunday, March 26, 2017 08:10 - CONCLUSION: Normal examination. Collin Ramon MD Knee X-Ray 03/26/17 0000 Signed Impressions: Service Date/Time: Sunday, March 26, 2017 07:14 - CONCLUSION: 1. Mild osteoarthritis. 2. Soft tissue swelling without fracture. Dawood Donnelly MD Head CT 03/26/17 0000 Signed Impressions: Service Date/Time: Sunday, March 26, 2017 07:00 - CONCLUSION: No acute intracranial abnormality is identified. Collin Galarza MD Foot X-Ray 03/26/17 0000 Signed Impressions: Service Date/Time: Sunday, March 26, 2017 07:21 - CONCLUSION: 1. Erosive arthritic changes of the first metatarsophalangeal joint with diffuse soft tissue swelling. 2. Old fracture distal second metatarsal. 3. Amputation third digit. Dawood Donnelly MD Foot MRI 03/26/17 0000 Signed Impressions: Service Date/Time: Sunday, March 26, 2017 15:31 - CONCLUSION: 1. Broad and deep ulceration of the medial arch area and with MRI findings suggesting superficial osteomyelitis of the underlying distal medial cuneiform and proximal first metatarsal base. No deep or extensive osseous signal changes are demonstrated. 2. There is osteoarthritis of the first tarsometatarsal joint but mainly the dorsal portion of the. Chronic appearing arch collapse is noted. 1. Collin Wirght MD Assessment/Plan Problem List: (1) Diabetic foot infection Status: Acute (2) Diabetic foot ulcer Status: Acute (3) Osteomyelitis of right foot Status: Acute Additional Plans & Procedures PLAN: Ordered a Ceretec labeled white blood cell scan. Ordered Maxorb extra AG dressings. Discussed with the patient risk of amputation if his bone is infected. Examined the patient with Dr. Ybarra. Continue to follow. Based on the bone scan results patient may need to be transferred to the [facility] for surgery this weekend. Problem Qualifiers (1) Diabetic foot ulcer: Qualified Code: E11.621 - Diabetic ulcer of right midfoot associated with type 2 diabetes mellitus, with necrosis of muscle (2) Osteomyelitis of right foot: Qualified Code: M86.9 - Osteomyelitis of right foot, unspecified type Dawood Spring DPM March 29, 2017 08:29
[2017-03-29] MEDS: CYANOCOBALAMIN 1,000 MCG TAB PO SCH (08:33)
[2017-03-29] MEDS: DILTIAZEM-CD 240 MG CAP ER PO SCH (08:33)
[2017-03-29] MEDS: FERROUS SULFATE 325 MG (65 MG ELEMENTAL IRON) TAB PO SCH ×2 (08:33→20:28)
[2017-03-29] MEDS: PANTOPRAZOLE SOD 40 MG DELAYED RELEASE TAB PO SCH (08:33)
[2017-03-29] MEDS: FUROSEMIDE 20 MG TAB PO SCH ×2 (08:33→20:28)
[2017-03-29] MEDS: RAMIPRIL 2.5 MG CAP PO SCH ×2 (08:34→20:28)
[2017-03-29] MEDS: INSULIN ASPART SUPPLEMENTAL SCALE SQ SCH ×4 (08:43→20:37)
[2017-03-29] MEDS: VANCOMYCIN INJ 1,750 MG in SODIUM CHLORID 0.9% 500 ML INJ 500 ML IV SCH (08:44)
--- NOTE | 2017-03-29 11:11 | PD.ORT.PN ---
Subjective Subjective Remarks Sitting bedside comfortably with knee immobilizer in place Objective Vitals Vital Signs Date Time Temp Pulse Resp B/P Pulse Ox O2 Delivery O2 Flow Rate FiO2 03/29/17 08:00 97.2 74 18 159/83 100 03/29/17 00:00 97.3 71 20 134/71 98 03/28/17 20:00 77 20 151/87 99 03/28/17 16:00 97.5 66 20 152/84 100 03/28/17 12:00 98.3 71 20 160/86 99 I/O 03/28/17 03/28/17 03/28/17 03/29/17 03/29/17 03/29/17 07:00 15:00 23:00 07:00 15:00 23:00 Intake Total 260 ml 1380 ml 720 ml 240 ml Output Total 550 ml Balance -290 ml 1380 ml 720 ml 240 ml Intake Oral 260 ml 1380 ml 720 ml 240 ml Output Urine Total 550 ml # Voids 2 3 2 # Bowel Movements 0 1 0 Result Diagram: 03/29/17 0540 03/29/17 0540 Imaging Last 72 hours Impressions Knee MRI 03/27/17 0000 Signed Impressions: Service Date/Time: Monday, March 27, 2017 14:51 - CONCLUSION: Complete rupture of the distal aspect of the quadriceps tendon with a large effusion and fluid extending into the prepatellar soft tissues. Collin Harding MD Tibia/Fibula X-Ray 03/26/17 Signed Impressions: Service Date/Time: Sunday, March 26, 2017 07:17 - CONCLUSION: Soft tissue swelling without fracture. Dawood Donnelly MD Lower Extremity Ultrasound 03/26/17 Signed Impressions: Service Date/Time: Sunday, March 26, 2017 08:10 - CONCLUSION: Normal examination. Collin Ramon MD Knee X-Ray 03/26/17 Signed Impressions: Service Date/Time: Sunday, March 26, 2017 07:14 - CONCLUSION: 1. Mild osteoarthritis. 2. Soft tissue swelling without fracture. Dawood Donnelly MD Head CT 03/26/17 0000 Signed Impressions: Service Date/Time: Sunday, March 26, 2017 07:00 - CONCLUSION: No acute intracranial abnormality is identified. Collin Galarza MD Foot X-Ray 03/26/17 0000 Signed Impressions: Service Date/Time: Sunday, March 26, 2017 07:21 - CONCLUSION: 1. Erosive arthritic changes of the first metatarsophalangeal joint with diffuse soft tissue swelling. 2. Old fracture distal second metatarsal. 3. Amputation third digit. Dawood Donnelly MD Foot MRI 03/26/17 0000 Signed Impressions: Service Date/Time: Sunday, March 26, 2017 15:31 - CONCLUSION: 1. Broad and deep ulceration of the medial arch area and with MRI findings suggesting superficial osteomyelitis of the underlying distal medial cuneiform and proximal first metatarsal base. No deep or extensive osseous signal changes are demonstrated. 2. There is osteoarthritis of the first tarsometatarsal joint but mainly the dorsal portion of the. Chronic appearing arch collapse is noted. 1. Collin Wright MD Objective Remarks Bilateral upper extremities reveal no pain with shoulder elbow wrist or fingers. He does have some atrophy from previous injuries he has intact sensation in all his fingers and able to fully extend and flex his fingers. Right lower extremity reveals no pain with hip or knee range of motion. He is dressings over his foot which are clean and dry. Left lower extremity: No pain with palpation to hip. Knee immobilizer in place. He has moderate swelling of the knee and proximal with significant tenderness over the quadriceps. He has mild tenderness over the patella tendon. He is unable to actively keep his leg straight with leg lift. He has intact sensation down to his ankle but has minimal sensation to no sensation over the dorsum and plantar surface of his foot. He is able to plantarflex and dorsiflex his foot Assessment & Plan Assessment and Plan Left quadriceps tendon rupture Nothing by mouth after midnight Sign consents We will plan on surgery 03/30/2017 in the OR in [facility] with Dr. Verdugo. Jose Sherman Jr. March 29, 2017 11:11
[2017-03-29 12:00] VITALS: BP 131/85; PULSE 79; RESP 18; TEMP 96.9; O2SAT 100
--- NOTE | 2017-03-29 15:27 | HHI.PR ---
Subjective History of Present Illness Patient have Left knee swelling and pain MRI Done shows Quadriceps tendon rupture discuss with orthopedic going for surgery tomorrow. getting bone scan and pet scan. Review of Systems Constitutional Constitutional: Fatigue, Weakness Musculoskeletal MS Remarks Left knee swelling and pain in knee brace. Integumentary Skin Remarks Right foot wound, Vitals/Results Intake & Output 03/28/17 03/28/17 03/29/17 15:00 23:00 07:00 Intake Total 1380 ml 720 ml 240 ml Balance 1380 ml 720 ml 240 ml Intake Oral 1380 ml 720 ml 240 ml # Voids 2 3 2 # Bowel Movements 1 0 Vital Signs Vital Signs Date Time Temp Pulse Resp B/P Pulse Ox O2 Delivery O2 Flow Rate FiO2 03/29/17 12:00 96.9 79 18 131/85 100 03/29/17 08:00 97.2 74 18 159/83 100 03/29/17 00:00 97.3 71 20 134/71 98 03/28/17 20:00 77 20 151/87 99 03/28/17 16:00 97.5 66 20 152/84 100 CBC/BMP: 03/29/17 0540 03/29/17 0540 Lab Results Laboratory Tests Test 03/29/17 03/29/17 05:40 08:00 White Blood Count 9.3 TH/MM3 Red Blood Count 3.37 MIL/MM3 Hemoglobin 9.3 GM/DL Hematocrit 28.3 % Mean Corpuscular Volume 84.1 FL Mean Corpuscular Hemoglobin 27.7 PG Mean Corpuscular Hemoglobin 33.0 % Concent Red Cell Distribution Width 12.5 % Platelet Count 389 TH/MM3 Mean Platelet Volume 6.7 FL Neutrophils (%) (Auto) 73.9 % Lymphocytes (%) (Auto) 15.8 % Monocytes (%) (Auto) 6.9 % Eosinophils (%) (Auto) 2.7 % Basophils (%) (Auto) 0.7 % Neutrophils # (Auto) 6.8 TH/MM3 Lymphocytes # (Auto) 1.5 TH/MM3 Monocytes # (Auto) 0.6 TH/MM3 Eosinophils # (Auto) 0.3 TH/MM3 Basophils # (Auto) 0.1 TH/MM3 CBC Comment DIFF FINAL Differential Comment Sodium Level 140 MEQ/L Potassium Level 3.9 MEQ/L Chloride Level 102 MEQ/L Carbon Dioxide Level 30.5 MEQ/L Anion Gap 8 MEQ/L Blood Urea Nitrogen 13 MG/DL Creatinine 0.69 MG/DL Estimat Glomerular Filtration 118 ML/MIN Rate Random Glucose 324 MG/DL Calcium Level 8.4 MG/DL Total Bilirubin 0.2 MG/DL Aspartate Amino Transf 10 U/L (AST/SGOT) Alanine Aminotransferase 12 U/L (ALT/SGPT) Alkaline Phosphatase 115 U/L Total Protein 7.1 GM/DL Albumin 2.2 GM/DL Vancomycin Level Trough 8.8 MCG/ML Microbiology Microbiology 03/28/17 Gram Stain - Final, Resulted 03/28/17 Wound Culture - Preliminary, Resulted NO GROWTH IN 24 HOURS. Physical Exam General General Appearance: No Acute Distress, Comfortable Eyes Eye Exam: Pupils Equal, Pupils Reactive, Sclera White, Extraocular Movement Intact Throat Throat Exam: Oral Mucosa [place] & Moist, Oral Pharynx Normal Neck Neck Exam: Neck Supple, Trachea Midline Pulmonary Resp Exam: Clear Bilaterally, Breath Sounds Equal Cardiology CV Exam: Regular, Normal Sinus Rhythm Gastrointestinal/Abdomen GI Exam: Soft, Non-Tender, Bowel Sounds Present Musculoskeletal MS Remarks Swelling and tenderness of left knee. Right foot wound. Right foot DP and PT palpable right mid foot collapse, right foot with a plantar central wound 5 x 5 cm. There is no probing to bone. There is no tendon exposed. Fibrogranular tissue. Positive serous drainage. No malodor. The right second digit with an ulceration to the distal tip. Integumentary Skin Exam: Warm Skin Remarks Right foot wound. Right foot DP and PT palpable right mid foot collapse, right foot with a plantar central wound 5 x 5 cm. There is no probing to bone. There is no tendon exposed. Fibrogranular tissue. Positive serous drainage. No malodor. The right second digit with an ulceration to the distal tip. Extremeties Extremities Exam: No Edema Neurologic Neuro Exam: Alert, Awake, Oriented, Speech Clear, Moving All Extremities, No Focal Deficits Psychiatric Psych Exam: Appropriate Responses VTE Prophylaxis VTE Prophylaxis Meds: Lovenox PUD Prophylasis PUD Prophylaxis: Protonix Assessment/Plan Assessment/Plan ASSESSMENT/PLAN 1. This is a 57-year male who came to the ER diagnosed status post fall, got entangled and trip and fall. The patient has minor head injury, the CT of the brain does not show anything acute. 2. Neurologically the patient is stable. 3. Osteomyelitis of the right foot. infectious disease input noted. . The patient is on vancomycin, Podiatry input noted. getting bone scan... may need amputation per podiatry. 4. Anemia. checked iron study, B12, folic acid level and check fecal occult blood test...show low Iron and B12 deficiency on replacement. 5. Diabetes mellitus ADA diet. 6. NovoLog low-dose sliding scale. 7. Check blood sugars, and adjust, monitor blood sugar. 8. Swelling of the left knee status post fall. 9. Checked MRI of the left knee shows Quadriceps tendon rupture d/w orthopedic.. going for surgery tomorrow 10. History of anxiety. Continue home medication Xanax 2 mg p.o. q. 8-hour p.r.n. anxiety. 11.GI Prophylaxis .. Protonix 40 mg p.o. daily. 12. History of hypertension continue home medication. and on clonidine 0.1 mg p.o. q. 6-hour p.r.n. if BP above 160/90. 13. Arthritis. Continue home medication. 14. Deep venous thrombosis prophylaxis, Lovenox 40 mg subcutaneous daily. 15. Left knee swelling and pain MRI Done shows Quadriceps tendon rupture going for surgery tomorrow. We will manage the patient daily basis and make recommendations on a daily basis. Check CBC, CMP in the morning. Discussed Condition with: Patient Last Ybarra MD March 29, 2017 15:27
[2017-03-29 16:00] VITALS: BP 126/71; PULSE 68; RESP 18; TEMP 97.5; O2SAT 99
[2017-03-29] MEDS: VANCOMYCIN INJ 1,900 MG in SODIUM CHLORID 0.9% 500 ML INJ 500 ML IV SCH (17:23)
[2017-03-29 20:00] VITALS: BP 115/74; PULSE 75; RESP 18; TEMP 97.8; O2SAT 99
[2017-03-29] MEDS: ALPRAZolam 1 MG TAB PO PRN (20:29)
[2017-03-29] MEDS: INSULIN DETEMIR 100 UNITS/ML VIAL SQ SCH (20:32)
[2017-03-30] VITALS: BP 130/77; PULSE 90; RESP 18; TEMP 95.9; O2SAT 96
[2017-03-30] MEDS: HYDROmorphone HCL PF 1 MG/ML VIAL IV PUSH PRN (05:19)
[2017-03-30] MEDS: VANCOMYCIN INJ 1,900 MG in SODIUM CHLORID 0.9% 500 ML INJ 500 ML IV SCH (05:19)
[2017-03-30] MEDS: INSULIN ASPART SUPPLEMENTAL SCALE SQ SCH ×4 (05:28→21:00)
[2017-03-30 05:36] LABS: AUTOMATED NEUTROPHIL # 7.6 TH/MM3 (1.8-7.7); BASOPHIL # 0.1 TH/MM3 (0-0.2); BASOPHIL % 0.9 % (0.0-2.0); EOSINOPHIL # 0.3 TH/MM3 (0-0.4); EOSINOPHIL % 3.2 % (0.0-4.0); HEMATOCRIT 29.7 % (39.0-51.0); HEMO FLAGS DIFF FINAL; LYMPH % 18.2 % (9.0-44.0); LYMPHOCYTE # 1.9 TH/MM3 (1.0-4.8); MEAN CELL VOLUME 83.6 FL (80.0-100.0); MEAN CORPUSCULAR HEMOGLOBIN 27.4 PG (27.0-34.0); MEAN CORPUSCULAR HGB CONC 32.8 % (32.0-36.0); MONO % 6.3 % (0.0-8.0); NEUT % 71.4 % (16.0-70.0); PLATELET COUNT 403 TH/MM3 (150-450); RED BLOOD COUNT 3.56 MIL/MM3 (4.50-5.90); RED CELL DISTRIBUTION WIDTH 12.4 % (11.6-17.2); WHITE BLOOD COUNT 10.6 TH/MM3 (4.0-11.0)
[2017-03-30 05:46] LABS: CHLORIDE 105 MEQ/L (98-107); SODIUM (NA) 142 MEQ/L (136-145)
[2017-03-30 05:50] LABS: ANION GAP 8 MEQ/L (5-15); BLOOD UREA NITROGEN 18 MG/DL (7-18)
[2017-03-30 06:04] LABS: ALKALINE PHOSPHATASE 117 U/L (45-117); ALT (GPT) 14 U/L (12-78); AST (GOT) 18 U/L (15-37); GLOMERULAR FILTRATION RATE 114 ML/MIN (>89); TOTAL BILIRUBIN ADULT 0.4 MG/DL (0.2-1.0)
[2017-03-30] MEDS: DILTIAZEM-CD 240 MG CAP ER PO SCH (07:47)
[2017-03-30] MEDS: FERROUS SULFATE 325 MG (65 MG ELEMENTAL IRON) TAB PO SCH ×2 (07:47→21:14)
[2017-03-30] MEDS: PANTOPRAZOLE SOD 40 MG DELAYED RELEASE TAB PO SCH (07:47)
[2017-03-30] MEDS: RAMIPRIL 2.5 MG CAP PO SCH ×2 (07:47→21:14)
[2017-03-30] MEDS: CYANOCOBALAMIN 1,000 MCG TAB PO SCH (07:48)
[2017-03-30] MEDS: FUROSEMIDE 20 MG TAB PO SCH ×2 (07:48→21:14)
[2017-03-30 08:00] VITALS: BP 135/81; PULSE 76; RESP 18; TEMP 98.1; O2SAT 95
--- NOTE | 2017-03-30 08:22 | HHI.PR ---
Subjective History of Present Illness Patient have Left knee swelling and pain MRI Done shows Quadriceps tendon rupture discuss with orthopedic going for surgery today. getting bone scan, wound culture grow proteus. d/w LUCIUS Spann. Review of Systems Constitutional Constitutional: Fatigue, Weakness Musculoskeletal MS Remarks Left knee swelling and pain in knee brace. Integumentary Skin Remarks Right foot wound, Vitals/Results Intake & Output 03/29/17 03/29/17 03/30/17 15:00 23:00 07:00 Intake Total 790 ml 240 ml Balance 790 ml 240 ml Intake Oral 240 ml 240 ml IV Total 550 ml # Voids 5 # Bowel Movements 2 Vital Signs Vital Signs Date Time Temp Pulse Resp B/P Pulse Ox O2 Delivery O2 Flow Rate FiO2 03/30/17 00:00 95.9 90 18 130/77 96 03/29/17 20:00 97.8 75 18 115/74 99 03/29/17 16:00 97.5 68 18 126/71 99 03/29/17 12:00 96.9 79 18 131/85 100 CBC/BMP: 03/30/17 0511 03/30/17 0511 Lab Results Laboratory Tests Test 03/30/17 05:11 White Blood Count 10.6 TH/MM3 Red Blood Count 3.56 MIL/MM3 Hemoglobin 9.8 GM/DL Hematocrit 29.7 % Mean Corpuscular Volume 83.6 FL Mean Corpuscular Hemoglobin 27.4 PG Mean Corpuscular Hemoglobin 32.8 % Concent Red Cell Distribution Width 12.4 % Platelet Count 403 TH/MM3 Mean Platelet Volume 6.5 FL Neutrophils (%) (Auto) 71.4 % Lymphocytes (%) (Auto) 18.2 % Monocytes (%) (Auto) 6.3 % Eosinophils (%) (Auto) 3.2 % Basophils (%) (Auto) 0.9 % Neutrophils # (Auto) 7.6 TH/MM3 Lymphocytes # (Auto) 1.9 TH/MM3 Monocytes # (Auto) 0.7 TH/MM3 Eosinophils # (Auto) 0.3 TH/MM3 Basophils # (Auto) 0.1 TH/MM3 CBC Comment DIFF FINAL Differential Comment Sodium Level 142 MEQ/L Potassium Level 4.0 MEQ/L Chloride Level 105 MEQ/L Carbon Dioxide Level 29.0 MEQ/L Anion Gap 8 MEQ/L Blood Urea Nitrogen 18 MG/DL Creatinine 0.71 MG/DL Estimat Glomerular Filtration 114 ML/MIN Rate Random Glucose 152 MG/DL Calcium Level 8.8 MG/DL Total Bilirubin 0.4 MG/DL Aspartate Amino Transf 18 U/L (AST/SGOT) Alanine Aminotransferase 14 U/L (ALT/SGPT) Alkaline Phosphatase 117 U/L Total Protein 7.3 GM/DL Albumin 2.5 GM/DL Physical Exam General General Appearance: No Acute Distress, Comfortable Eyes Eye Exam: Pupils Equal, Pupils Reactive, Sclera White, Extraocular Movement Intact Throat Throat Exam: Oral Mucosa [place] & Moist, Oral Pharynx Normal Neck Neck Exam: Neck Supple, Trachea Midline Pulmonary Resp Exam: Clear Bilaterally, Breath Sounds Equal Cardiology CV Exam: Regular, Normal Sinus Rhythm Gastrointestinal/Abdomen GI Exam: Soft, Non-Tender, Bowel Sounds Present Musculoskeletal MS Remarks Swelling and tenderness of left knee. Right foot wound. Right foot DP and PT palpable right mid foot collapse, right foot with a plantar central wound 5 x 5 cm. There is no probing to bone. There is no tendon exposed. Fibrogranular tissue. Positive serous drainage. No malodor. The right second digit with an ulceration to the distal tip. Integumentary Skin Exam: Warm Skin Remarks Right foot wound. Right foot DP and PT palpable right mid foot collapse, right foot with a plantar central wound 5 x 5 cm. There is no probing to bone. There is no tendon exposed. Fibrogranular tissue. Positive serous drainage. No malodor. The right second digit with an ulceration to the distal tip. Extremeties Extremities Exam: No Edema Neurologic Neuro Exam: Alert, Awake, Oriented, Speech Clear, Moving All Extremities, No Focal Deficits Psychiatric Psych Exam: Appropriate Responses VTE Prophylaxis VTE Prophylaxis Meds: Lovenox PUD Prophylasis PUD Prophylaxis: Protonix Assessment/Plan Assessment/Plan ASSESSMENT/PLAN 1. This is a 57-year male who came to the ER diagnosed status post fall, got entangled and trip and fall. The patient has minor head injury, the CT of the brain does not show anything acute. 2. Neurologically the patient is stable. 3. Osteomyelitis of the right foot. infectious disease input noted... wound culture grow proteus . The patient is on vancomycin, Podiatry input noted. getting bone scan... may need amputation per podiatry. 4. Anemia. checked iron study, B12, folic acid level and fecal occult blood test...show low Iron and B12 deficiency on replacement. 5. Diabetes mellitus ADA diet. NovoLog low-dose sliding scale. Check blood sugars, and adjust, monitor blood sugar. 6. Swelling of the left knee status post fall. 9. Checked MRI of the left knee shows Quadriceps tendon rupture d/w orthopedic.. going for surgery tomorrow 7. History of anxiety. Continue home medication Xanax 2 mg p.o. q. 8-hour p.r.n. anxiety. 8 .GI Prophylaxis .. Protonix 40 mg p.o. daily. 9. History of hypertension continue home medication. and on clonidine 0.1 mg p.o. q. 6-hour p.r.n. if BP above 160/90. 10. Arthritis. Continue home medication. 11. Deep venous thrombosis prophylaxis, Lovenox 40 mg subcutaneous daily. 12. Left knee swelling and pain MRI Done shows Quadriceps tendon rupture going for surgery today. We will manage the patient daily basis and make recommendations on a daily basis. Check CBC, CMP in the morning. Discussed Condition with: Patient Last Ybarra MD March 30, 2017 08:22
[2017-03-30 10:26] VITALS: BP 140/69; PULSE 69; RESP 18; TEMP 98.1; O2SAT 100
[2017-03-30] MEDS ORDERED: LIDOCAINE 1%/EPINEPHrine 1:100,000 SOLN 30 ML VIAL ONE (10:26)
[2017-03-30] MEDS ORDERED: GENTAMICIN SULFATE 80 MG/2 ML VIAL ONE (10:26)
[2017-03-30] MEDS: LACTATED RINGER'S 1000 ML INJ 1,000 ML IV SCH (10:34)
--- NOTE | 2017-03-30 10:40 | RADHPO ---
EXAM DATE/TIME: 03/29/2017 13:18 [place] COMPARISON: No previous studies available for comparison. INDICATIONS : Right foot infection. Right neuropathic ulceration. Charcot foot. DOSE: 19.8 mCi Tc99m Ceretec labeled white blood cells IV SPECT IMAGIN hrs, 20 hrs IMAGNG: SPECT/CT imaging with fusion was performed. RADIATION DOSE: 4.63 CTDIvol (mGy) ; Multiple Day Study MEDICAL HISTORY : Diabetes mellitus type 2. Hypertension. SURGICAL HISTORY : Right foot. ENCOUNTER: Initial ACUITY: 1 day PAIN SCALE: 2/10 LOCATION: Right Foot. TECHNIQUE: Following the in vitro labeling of autologous white cells and reinjection, whole body scan was perfor med at the specified times. SPECT imaging was performed at the specified time in sagittal, axial and coronal planes. Attenuation correction was performed with the computed tomography and both the atten uation correction and non-attenuation corrected data sets were reviewed. FINDINGS: The examination demonstrates an area of intense tracer accumulation along the medial aspect of the ri ght foot. This is in the soft tissues beneath the medial cuneiform and of the tarsal/metatarsal joint . This involves the soft tissues. There is no definite abnormal tracer accumulation within the bone i tself. This does abut the periosteum of the proximal metatarsal. The remainder the examination demonstrates normal distribution of tracer.. CONCLUSION: 1. The exam demonstrates a sizable area of abnormal white cell accumulation which appears to be lined to the subcutaneous and deep soft tissues of the plantar surface of the right foot medially. I do no t see definite tracer accumulation within the bone. This Rg Solis MD on March 30, 2017 at 10:36 Board Certified Radiologist. This report was verified electronically.
[2017-03-30] MEDS ORDERED: METOCLOPRAMIDE HCL 10 MG/2 ML VIAL ONE (10:49)
[2017-03-30] MEDS ORDERED: MIDAZOLAM HCL 2 MG/2 ML VIAL ONE (10:49)
[2017-03-30] MEDS ORDERED: FAMOTIDINE 20 MG/2 ML VIAL ONE (10:49)
[2017-03-30] MEDS ORDERED: BUPIVACAINE/EPINEPHRINE 0.25% PF 30 ML VIAL ONE (11:03)
[2017-03-30] MEDS ORDERED: HYDR-3288 PO (11:07)
[2017-03-30] MEDS ORDERED: ACETAMINOPHEN/HYDROcodone 325 MG/7.5 MG TAB PO PRN ×2 (11:15)
[2017-03-30] MEDS ORDERED: diphenhydrAMINE HCL 25 MG CAP PO PRN (11:15)
[2017-03-30] MEDS ORDERED: SODIUM CHLORIDE 0.9% FLUSH 5 ML FLUSH IVF PRN (11:15)
[2017-03-30] MEDS ORDERED: MORPHINE SULFATE 4 MG/ML INJ IV PUSH PRN (11:15)
[2017-03-30] MEDS ORDERED: Post-op Orders (for Pharmacy) MISC XX ONE (11:15)
[2017-03-30] MEDS ORDERED: ONDANSETRON HCL 4 MG/2 ML VIAL IVP PRN (11:15)
[2017-03-30] MEDS ORDERED: ceFAZolin INJ 1,000 MG VIAL ONE (11:20)
[2017-03-30] MEDS ORDERED: PROPOFOL 200 MG/20 ML AMP IV ONE (11:20)
[2017-03-30] MEDS ORDERED: ONDANSETRON HCL 4 MG/2 ML VIAL IV PUSH ONE (11:20)
[2017-03-30] MEDS ORDERED: ceFAZolin INJ 1,000 MG VIAL IV ONE (11:24)
--- NOTE | 2017-03-30 11:47 | HHI.PR ---
cc: Jack Conway MD Immediate Post Op Note Procedure Date: March 30, 2017 Pre Op Diagnosis: left quad tendon rupture Post Op Diagnosis: Surgeon: Jack Conway Grease Maker Head(s): Leonidas Watson PAC Procedure: Primary repair left quad tendon Estimated blood loss: minimal Anesthesia: General Drains: None Patient to: PACU Patient Condition: Good Jack Conway MD March 30, 2017 11:47
[2017-03-30 12:00] VITALS: PULSE 76
[2017-03-30] MEDS ORDERED: *HYDROmorphone PF 1 MG VIAL PERIprocedural Use ONLY ONE (12:12)
[2017-03-30 12:45] VITALS: PULSE 67
[2017-03-30] MEDS: ceFAZolin 2 GM PREMIX 50 ML IV SCH (15:38)
--- NOTE | 2017-03-30 18:21 | MP ---
cc: JACK VERDUGO DATE OF SURGERY: 03/30/2017 PREOPERATIVE DIAGNOSIS: Complete left knee quadriceps tendon rupture. POSTOPERATIVE DIAGNOSIS: Complete left knee quadriceps tendon rupture. OPERATION: Primary repair of left quadriceps tendon rupture. SURGEON: Jack Verdugo MD. ASSIST: Leonidas Watson PA-C. The surgical procedure was assisted by my physician gallery assistant. My P.A.'s presence was necessary throughout this case for the manipulation and positioning of the surgical extremity. My P.A. was assisting me throughout the duration of this procedure. The skill set of a physician gallery assistant was medically necessary to complete this procedure. During the surgical case, the registered vascular technologist (rvt) was working at the back table and the physician gallery assistant was directly assisting me. ESTIMATED BLOOD LOSS: Minimal. ANESTHESIA: LMA. PLAN OF ACTIVITY: Posture weightbearing on the left leg with knee immobilizer on. DESCRIPTION OF THE PROCEDURE IN DETAIL: Tyron is a 57-year-old male who sustained an injury to his left knee. MRI revealed a complete quadriceps tendon rupture. I personally saw him and examined him preoperatively. I discussed clinical and MRI findings of complete quadriceps tendon rupture. Informed consent obtained after a detailed discussion of the risks and benefits. The risks of surgery include bleeding, infection, injury to arteries, nerves or blood vessels, recurrent rupture, fracture of patella, infection, knee stiffness, loss of motion as well as medical complications including blood clot, stroke, heart attack and . Informed consent was confirmed. The operative site was marked. He was brought to the operating room and placed on the operating room table. He was given IV sedation and general anesthesia. A time out procedure was performed. The left leg was prepped with alcohol followed by Hibiclens and draped in the usual sterile fashion. The procedure began with a 5-inch incision over the anterior knee. The subcutaneous tissue was dissected with the bovie. The quadriceps tendon was identified. The tendon was completely avulsed off the superior patella. At this point, the knee joint was thoroughly irrigated. At this point, two #5 FiberWire sutures were weaved into the quadriceps tendon in a Krackow style fashion. Next, three drill holes were made through the patella from superior to inferior. Using a JumpStart suture passer, the limbs of the FiberWire suture were passed through the patellar tunnels. The patella was reduced to the quadriceps tendon. The sutures were tensioned appropriately and tied. Additional #1 Vicryl sutures were used for additional repair around the retinaculum. The knee was placed through gentle range of motion and repair was very stable. The wound was again thoroughly irrigated. The subcutaneous tissue was closed with 3-0 Vicryl. Skin was closed with dilshad. Sterile dressings were applied. The patient was placed into a knee immobilizer. He was awakened and transferred to the recovery room in stable condition. MD NAM Linton/KATHY /11:51 AM /5:55 PM SETH
[2017-03-30] MEDS: HYDROmorphone HCL PF 1 MG/ML VIAL IV PRN (20:00)
[2017-03-30 20:07] VITALS: BP 112/63; PULSE 83; RESP 22; TEMP 97.7; O2SAT 92
[2017-03-30] MEDS: SODIUM CHLORIDE 0.9% FLUSH 5 ML FLUSH IVF SCH (21:00)
[2017-03-30] MEDS ORDERED: VANCOMYCIN INJ 1,000 MG in SODIUM CHLOR 0.9% 250 ML INJ 250 ML IV SCH (21:00)
[2017-03-30] MEDS: INSULIN DETEMIR 100 UNITS/ML VIAL SQ SCH (21:14)
[2017-03-30] MEDS: VANCOMYCIN INJ 1,750 MG in SODIUM CHLOR 0.9% 250 ML INJ 250 ML IV SCH (21:17)
[2017-03-31 00:07] VITALS: BP 125/57; PULSE 91; RESP 20; TEMP 99.7; O2SAT 94
[2017-03-31] MEDS: HYDROmorphone HCL PF 1 MG/ML VIAL IV PRN ×6 (00:52→20:26)
[2017-03-31] MEDS: ceFAZolin 2 GM PREMIX 50 ML IV SCH ×2 (00:52→08:00)
[2017-03-31] MEDS ORDERED: PHARMACY ORDERED LAB ONE (05:45)
[2017-03-31 08:00] VITALS: BP 122/75; PULSE 90; RESP 18; TEMP 97.2; O2SAT 97
[2017-03-31] MEDS: FUROSEMIDE 20 MG TAB PO SCH ×2 (08:33→21:12)
[2017-03-31] MEDS: CYANOCOBALAMIN 1,000 MCG TAB PO SCH (08:33)
[2017-03-31] MEDS: INSULIN ASPART SUPPLEMENTAL SCALE SQ SCH ×4 (08:33→23:53)
[2017-03-31] MEDS: PANTOPRAZOLE SOD 40 MG DELAYED RELEASE TAB PO SCH (08:33)
[2017-03-31] MEDS: RAMIPRIL 2.5 MG CAP PO SCH ×2 (08:34→21:12)
[2017-03-31] MEDS: FERROUS SULFATE 325 MG (65 MG ELEMENTAL IRON) TAB PO SCH ×2 (08:34→21:12)
[2017-03-31] MEDS: DILTIAZEM-CD 240 MG CAP ER PO SCH (08:34)
[2017-03-31 08:45] LABS: AUTOMATED NEUTROPHIL # 8.3 TH/MM3 (1.8-7.7); BASOPHIL # 0.1 TH/MM3 (0-0.2); BASOPHIL % 0.5 % (0.0-2.0); EOSINOPHIL # 0.2 TH/MM3 (0-0.4); EOSINOPHIL % 1.5 % (0.0-4.0); HEMATOCRIT 28.7 % (39.0-51.0); HEMO FLAGS DIFF FINAL; LYMPH % 13.9 % (9.0-44.0); LYMPHOCYTE # 1.6 TH/MM3 (1.0-4.8); MEAN CELL VOLUME 85.9 FL (80.0-100.0); MEAN CORPUSCULAR HEMOGLOBIN 28.3 PG (27.0-34.0); NEUT % 75.1 % (16.0-70.0); PLATELET COUNT 359 TH/MM3 (150-450); RED BLOOD COUNT 3.34 MIL/MM3 (4.50-5.90); RED CELL DISTRIBUTION WIDTH 13.1 % (11.6-17.2); WHITE BLOOD COUNT 11.2 TH/MM3 (4.0-11.0)
[2017-03-31] MEDS ORDERED: ceFAZolin 2 GM PREMIX 50 ML IV ONE (08:45)
[2017-03-31 08:56] LABS: CHLORIDE 99 MEQ/L (98-107); POTASSIUM 4.2 MEQ/L (3.5-5.1); SODIUM (NA) 137 MEQ/L (136-145)
[2017-03-31 09:00] LABS: ANION GAP 6 MEQ/L (5-15); BLOOD UREA NITROGEN 17 MG/DL (7-18)
[2017-03-31] MEDS: SODIUM CHLORIDE 0.9% FLUSH 5 ML FLUSH IVF SCH ×2 (09:00→21:00)
[2017-03-31 09:03] LABS: ALT (GPT) 14 U/L (12-78); AST (GOT) 11 U/L (15-37); GLOMERULAR FILTRATION RATE 118 ML/MIN (>89)
[2017-03-31 09:05] LABS: TOTAL BILIRUBIN ADULT 0.4 MG/DL (0.2-1.0)
[2017-03-31 09:06] LABS: ALKALINE PHOSPHATASE 109 U/L (45-117)
--- NOTE | 2017-03-31 09:16 | PD.POD ---
Subjective Podiatric Problems Diagnostic male with neuropathic ulceration of the right plantar arch. Pain scale used: 0-10 numeric scale Pain score: 1 Remarks Patient is a 57-year-old male with history of diabetic foot infections. He has an ulceration in the arch of the right foot. Culture and sensitivity grew out Proteus species. Ceretec labeled white blood cell scan was negative for osteomyelitis. Patient underwent surgery of his left knee yesterday by Dr. Conway. Past Med/Surg/Social History Past Medical History PFS Reviewed: Yes Endocrine: REPORTS HX OF: Diabetes mellitus Gastrointestinal: REPORTS HX OF: GERD Neurologic: REPORTS HX OF: Peripheral neuropathy Social History Smoking Status: Never Smoker Review of Systems Notes Other than the surgical intervention on the left knee that has been no changes to his 14 point review of systems exam Objective Vital Signs Vital Signs Date Time Temp Pulse Resp B/P Pulse Ox O2 Delivery O2 Flow Rate FiO2 03/31/17 05:36 03/31/17 00:07 99.7 91 20 125/57 94 03/30/17 20:07 97.7 83 22 112/63 92 03/30/17 12:45 98.7 67 14 115/58 99 Room Air 03/30/17 12:45 67 03/30/17 12:30 69 14 117/68 100 Nasal Cannula 2 03/30/17 12:15 72 14 105/51 100 Nasal Cannula 2 03/30/17 12:00 76 03/30/17 12:00 98.2 76 14 105/52 95 Nasal Cannula 2 03/30/17 10:26 98.1 69 18 140/69 100 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 & 11/12/16; (toe) - 03/2016 Medications and IVs Current Medications Clindamycin Phosphate/Sodium Chloride (Cleocin Inj/NS Inj) 104 ml @ 208 mls/hr ONCE ONCE IV Last administered on 03/26/17 07:34; Start 03/26/17 at 06:45; Stop 03/26/17 at 14:23; Status DC Morphine Sulfate 6 mg 6 mg ONCE ONCE IV PUSH Last administered on 03/26/17 07: 35; Start 03/26/17 at 06:45; Stop 03/26/17 at 06:46; Status DC Vancomycin HCl/ Sodium Chloride (Vancomycin Inj/ NS 250 ml Inj) 250 ml @ 250 mls/hr ONCE ONCE IV Last administered on 03/26/17 09:15; Start 03/26/17 at 09: 15; Stop 03/26/17 at 10:14; Status DC Alprazolam (Xanax) 2 mg Q8H PRN PO ANXIETY Last administered on 03/29/17 20:29 ; Start 03/26/17 at 11:00 Diltiazem HCl (Cardizem Cd) 240 mg DAILY PO Last administered on 03/31/17 08:34 ; Start 03/27/17 at 09:00 Furosemide (Lasix) 20 mg BID PO Last administered on 03/31/17 08:33; Start 03/26 at 21:00 Insulin Detemir (Levemir Inj) 10 units HS SQ Last administered on 03/30/17 21: 14; Start 03/26/17 at 21:00 Pantoprazole Sodium (Protonix) 40 mg DAILY PO Last administered on 03/31/17 08: 33; Start 03/27/17 at 09:00 Ramipril (Altace) 2.5 mg BID PO Last administered on 03/31/17 08:34; Start 03/26 at 21:00 Non-Formulary Medication 30 mg 30 mg Q4HR PO PAIN; Start 03/26/17 at 12:00; Stop 03/26/17 at 12:15; Status DC Ampicillin Sodium/ Sulbactam Sodium/ Sodium Chloride (Unasyn Inj/NS Inj) 100 ml @ 200 mls/hr Q6H IV Last administered on 03/26/17 13:38; Start 03/26/17 at 12: 00; Stop 03/26/17 at 14:23; Status DC Dextrose (D50w (Vial) Inj) 25 ml UNSCH PRN IV PUSH HYPOGLYCEMIA-SEE COMMENTS; Start 03/26/17 at 11:15 Glucagon (Glucagon Inj) 1 mg UNSCH PRN OTHER HYPOGLYCEMIA-SEE COMMENTS; Start 03/26/17 at 11:15 Insulin Aspart (NovoLOG SUPPLEMENTAL SCALE) 1 ACHS SLIDING SCALE SQ Last administered on 03/31/17 08:33; Start 03/26/17 at 16:00 Oxycodone HCl (Roxicodone) 30 mg Q4H PRN PO PAIN SCALE 1 TO 4 Last administered on 03/30/17 07:46; Start 03/26/17 at 13:00; Stop 03/30/17 at 11:12; Status DC Gadodiamide (Omniscan Pf Inj) 20 ml STK-MED ONCE IV ; Start 03/26/17 at 17:29; Stop 03/26/17 at 17:30; Status DC Clonidine 0.1 mg 0.1 mg Q6H PRN PO SBP>160, DBP>90; Start 03/27/17 at 09:30 Vancomycin HCl 1000 mg/Sodium Chloride 250 ml @ 250 mls/hr ONCE ONCE IV Last administered on 03/27/17 23:05; Start 03/27/17 at 22:45; Stop 03/27/17 at 23:44; Status DC Pharmacy Profile Note 0 ml @ 0 mls/hr UNSCH OTHER ; Start 03/27/17 at 23:00; Stop 03/30/17 at 11:16; Status DC Vancomycin HCl/ Sodium Chloride (Vancomycin Inj/ NS 500 ml Inj) 517.5 ml @ 250 mls/hr Q12H IV Last administered on 03/29/17 08:44; Start 03/28/17 at 08:00; Stop 03/29/17 at 16:14; Status DC Miscellaneous Information SPECIFIC LAB TO BE ... ONCE ONCE .XX Last administered on 03/29/17 08:51; Start 03/29/17 at 07:45; Stop 03/29/17 at 07:46; Status DC Vancomycin HCl/ Sodium Chloride (Vancomycin Inj/ NS 250 ml Inj) 250 ml @ 250 mls/hr Q24H IV ; Start 03/28/17 at 08:15; Status UNV Hydromorphone HCl (Dilaudid Pf Inj) 0.5 mg Q4H PRN IV PUSH PAIN SCALE 5 TO 10 Last administered on 03/28/17 13:42; Start 03/28/17 at 08:15; Stop 03/28/17 at 16: 59; Status DC Cyanocobalamin (Vitamin B12) 1,000 mcg DAILY PO Last administered on 03/31/17 08:33; Start 03/28/17 at 16:30 Ferrous Sulfate (Ferrous Sulfate) 325 mg BID PO Last administered on 03/31/17 08:34; Start 03/28/17 at 21:00 Hydromorphone HCl 1 mg 1 mg Q4H PRN IV PUSH PAIN SCALE 5 TO 10 Last administered on 03/30/17 05:19; Start 03/28/17 at 16:55; Stop 03/30/17 at 11:12; Status DC Vancomycin HCl/ Sodium Chloride (Vancomycin Inj/ NS 500 ml Inj) 519 ml @ 250 mls/hr Q12H IV Last administered on 03/30/17 05:19; Start 03/29/17 at 18:00; Stop 03/30/17 at 11:16; Status DC Miscellaneous Information SPECIFIC LAB TO BE DRAWN: VANCO TROUGH DATE... ONCE ONCE .XX ; Start 03/31/17 at 05:45; Stop 03/31/17 at 05:45; Status DC Gentamicin Sulfate (Gentamicin Inj) 240 mg STK-MED ONCE .ROUTE Last administered on 03/30/17 11:21; Start 03/30/17 at 10:26; Stop 03/30/17 at 10:27; Status DC Lidocaine/ Epinephrine (Xylocaine-Epi 1%-1:100,000 Inj) 30 ml STK-MED ONCE .ROUTE ; Start 03/30/17 at 10:26; Stop 03/30/17 at 10:27; Status DC Fentanyl Citrate (fentaNYL INJ) 100 mcg STK-MED ONCE .ROUTE ; Start 03/30/17 at 10:44; Stop 03/30/17 at 10:45; Status DC Midazolam HCl (Versed Inj) 2 mg STK-MED ONCE .ROUTE Last administered on 10:55; Start 03/30/17 at 10:49; Stop 03/30/17 at 10:50; Status DC Metoclopramide HCl (Reglan Inj) 10 mg STK-MED ONCE .ROUTE Last administered on 03/30/17 10:55; Start 03/30/17 at 10:49; Stop 03/30/17 at 10:50; Status DC Famotidine (Pepcid Inj) 20 mg STK-MED ONCE .ROUTE Last administered on 10:55; Start 03/30/17 at 10:49; Stop 03/30/17 at 10:50; Status DC Bupivacaine HCl/ Epinephrine Bitart 30 ml 30 ml STK-MED ONCE .ROUTE Last administered on 03/30/17 11:21; Start 03/30/17 at 11:03; Stop 03/30/17 at 11:04; Status DC Lactated Ringer's (Lr 1000 ml Inj) 1,000 ml @ 0 mls/hr Q0M IV Last administered on 03/30/17 10:34; Start 03/30/17 at 11:04 IV Flush (NS Flush) 2 ml UNSCH PRN IVF FLUSH AFTER USING IV ACCESS; Start at 11:15 IV Flush (NS Flush) 2 ml BID IVF Last administered on 03/30/17 21:00; Start 03/30/17 at 21:00 Miscellaneous Information (Post-op Orders (for Pharmacy)) STAT ONCE XX ; Start 03/30/17 at 11:15; Stop 03/30/17 at 12:37; Status DC Enoxaparin Sodium 30 mg 30 mg Q24H SQ ; Start 03/31/17 at 10:00 Cefazolin Sodium/ Dextrose 50 ml @ 100 mls/hr Q8H IV Last administered on 00:52; Start 03/30/17 at 16:00; Stop 03/31/17 at 08:29; Status DC Vancomycin HCl/ Sodium Chloride (Vancomycin Inj/ NS 250 ml Inj) 250 ml @ 250 mls/hr Q12HR IV ; Start 03/30/17 at 21:00; Stop 03/30/17 at 21:00; Status DC Acetaminophen/ Hydrocodone Bitart ([place] 7.5-325 Mg) 1 tab Q4H PRN PO PAIN LESS THAN 5 ON SCALE; Start 03/30/17 at 11:15; Stop 03/30/17 at 14:12; Status DC Acetaminophen/ Hydrocodone Bitart ([place] 7.5-325 Mg) 2 tab Q6H PRN PO PAIN GREATER THAN/EQUAL TO 5 Last administered on 03/30/17 13:17; Start 03/30/17 at 11 :15; Stop 03/30/17 at 14:12; Status DC Ondansetron HCl (Zofran Inj) 4 mg Q4H PRN IVP NAUSEA OR VOMITING; Start at 11:15 Diphenhydramine HCl (Benadryl) 25 mg Q6H PRN PO ITCHING; Start 03/30/17 at 11:15 Morphine Sulfate (Morphine Inj) 4 mg Q3H PRN IV PUSH break through pain; Start 03/30/17 at 11:15; Stop 03/30/17 at 14:12; Status DC Cefazolin Sodium (Ancef Inj) 1,000 mg STK-MED ONCE .ROUTE Last administered on 03/30/17 11:24; Start 03/30/17 at 11:20; Stop 03/30/17 at 11:21; Status DC Cefazolin Sodium 1000 mg 1,000 mg STK-MED ONCE IV Last administered on 11:24; Start 03/30/17 at 11:24; Stop 03/30/17 at 11:43; Status DC Vancomycin HCl/ Sodium Chloride (Vancomycin Inj/ NS 250 ml Inj) 250 ml @ 250 mls/hr Q12HR IV Last administered on 03/30/17 21:17; Start 03/30/17 at 21:00; Stop 03/31/17 at 09:59 Hydromorphone HCl (*DILAUDID PF INJ PERIprocedural ONLY) 1 mg STK-MED ONCE .ROUTE Last administered on 03/30/17 12:17; Start 03/30/17 at 12:12; Stop at 12:13; Status DC Hydromorphone HCl (Dilaudid Pf Inj) 1 mg Q4H PRN IV BREAKTHROUGH PAIN Last administered on 03/31/17 08:27; Start 03/30/17 at 14:15 Oxycodone HCl 30 mg 30 mg Q4H PRN PO PAIN SCALE 1 TO 10 Last administered on 03:58; Start 03/30/17 at 14:15 Cefazolin Sodium/ Dextrose (Ancef 2 Gm Premix) 50 ml @ 100 mls/hr ONCE ONCE IV Last administered on 03/31/17 08:46; Start 03/31/17 at 08:45; Stop 03/31/17 at 09:14 Other Results Laboratory Tests Test 03/30/17 03/31/17 05:11 07:50 White Blood Count 10.6 TH/MM3 11.2 TH/MM3 Red Blood Count 3.56 MIL/MM3 3.34 MIL/MM3 Hemoglobin 9.8 GM/DL 9.5 GM/DL Hematocrit 29.7 % 28.7 % Mean Corpuscular Volume 83.6 FL 85.9 FL Mean Corpuscular Hemoglobin 27.4 PG 28.3 PG Mean Corpuscular Hemoglobin 32.8 % 33.0 % Concent Red Cell Distribution Width 12.4 % 13.1 % Platelet Count 403 TH/MM3 359 TH/MM3 Mean Platelet Volume 6.5 FL 6.8 FL Neutrophils (%) (Auto) 71.4 % 75.1 % Lymphocytes (%) (Auto) 18.2 % 13.9 % Monocytes (%) (Auto) 6.3 % 9.0 % Eosinophils (%) (Auto) 3.2 % 1.5 % Basophils (%) (Auto) 0.9 % 0.5 % Neutrophils # (Auto) 7.6 TH/MM3 8.3 TH/MM3 Lymphocytes # (Auto) 1.9 TH/MM3 1.6 TH/MM3 Monocytes # (Auto) 0.7 TH/MM3 1.0 TH/MM3 Eosinophils # (Auto) 0.3 TH/MM3 0.2 TH/MM3 Basophils # (Auto) 0.1 TH/MM3 0.1 TH/MM3 CBC Comment DIFF FINAL DIFF FINAL Differential Comment Laboratory Tests Test 03/30/17 03/31/17 05:11 07:50 Sodium Level 142 MEQ/L 137 MEQ/L Potassium Level 4.0 MEQ/L 4.2 MEQ/L Chloride Level 105 MEQ/L 99 MEQ/L Carbon Dioxide Level 29.0 MEQ/L 32.0 MEQ/L Anion Gap 8 MEQ/L 6 MEQ/L Blood Urea Nitrogen 18 MG/DL 17 MG/DL Creatinine 0.71 MG/DL 0.69 MG/DL Estimat Glomerular Filtration 114 ML/MIN 118 ML/MIN Rate Random Glucose 152 MG/DL 213 MG/DL Calcium Level 8.8 MG/DL 8.8 MG/DL Total Bilirubin 0.4 MG/DL 0.4 MG/DL Aspartate Amino Transf 18 U/L 11 U/L (AST/SGOT) Alanine Aminotransferase 14 U/L 14 U/L (ALT/SGPT) Alkaline Phosphatase 117 U/L 109 U/L Total Protein 7.3 GM/DL 7.6 GM/DL Albumin 2.5 GM/DL 2.5 GM/DL Microbiology Date/Time Procedure Status Source Growth 03/28/17 22:00 Gram Stain - Final Resulted Wound Foot 03/28/17 22:00 Wound Culture - Preliminary Resulted Proteus Species Exam-Podiatry Constitutional General appearance: comfortable Nutritional status: normal Orientation: alert and oriented x3 Dermatological Exam Skin Temp - Right: Within Normal Limits Skin Texture - Right: Within Normal Limits Skin Elasticity - Right: Within Normal Limits Skin Tugor - Right: Within Normal Limits Hair Growth - Right: Within Normal Limits Pigmentation - Right: Within Normal Limits Skin Temp - Left: Within Normal Limits Skin Texture - Left: Within Normal Limits Skin Elasticity - Left: Within Normal Limits Skin Tugor - Left: Within Normal Limits Hair Growth - Left: Within Normal Limits Pigmentation - Left: Within Normal Limits Ulcers: Location/Measurements Ulceration of right arch with serous drainage. Some odor noted. No ascending cellulitis seen. Vascular/Lymphatic Exam R Dorsails Pedis: Palpable L Dorsails Pedis: Palpable R Posterior Tibial: Palpable L Posterior Tibial: Palpable Neurologic Exam Present on right: Tingling, Paraesthesia Present on left: Burning, Paraesthesia Muscle Strength Dorsiflexion (Right): Normal Plantarflexion (Right): Normal Inversion (Right): Normal Eversion (Right): Normal Digital (Right): Normal Dorsiflexion (Left): Normal Plantarflexion (Left): Normal Inversion (Left): Normal Eversion (Left): Normal Digital (Left): Normal Foot Range of Motion Dorsiflexion (Right): Normal Plantarflexion (Right): Normal Inversion (Right): Normal Eversion (Right): Normal Digital (Right): Normal Dorsiflexion (Left): Normal Plantarflexion (Left): Normal Inversion (Left): Normal Eversion (Left): Normal Digital (Left): Normal Assessment & Plan Diagnosis: (1) Diabetic foot infection Status: Acute (2) Diabetic foot ulcer Status: Acute (3) Open wound of right foot with complication Status: Acute A/P PLAN: Continue Maxorb extra AG dressings to right foot wound. After discharge patient to be followed by me in the wound center. Case management orders to schedule him for follow-up. Problem Qualifiers (1) Diabetic foot ulcer: Qualified Code: E11.621 - Diabetic ulcer of right midfoot associated with type 2 diabetes mellitus, with necrosis of muscle (2) Open wound of right foot with complication: Qualified Code: S91.301D - Open wound of right foot with complication, subsequent encounter Dawood Spring DPM March 31, 2017 09:16
--- NOTE | 2017-03-31 09:17 | HHI.PR ---
Subjective History of Present Illness Patient have Left knee swelling and pain MRI Done shows Quadriceps tendon rupture discuss with orthopedic s/p surgery . s/p bone scan report noted, wound culture grow proteus and MRSA.. d/w LUCIUS Maria. Review of Systems Constitutional Constitutional: Fatigue, Weakness Musculoskeletal MS Remarks Left knee swelling and pain in knee brace. Integumentary Skin Remarks Right foot wound, Vitals/Results Intake & Output 03/30/17 03/30/17 03/31/17 15:00 23:00 07:00 Intake Total 750 ml Output Total 600 ml Balance 750 ml -600 ml Intake Oral 0 ml Other 750 ml Output Urine Total 600 ml # Voids 0 1 # Bowel Movements 1 Vital Signs Vital Signs Date Time Temp Pulse Resp B/P Pulse Ox O2 Delivery O2 Flow Rate FiO2 03/31/17 05:36 03/31/17 00:07 99.7 91 20 125/57 94 03/30/17 20:07 97.7 83 22 112/63 92 03/30/17 12:45 98.7 67 14 115/58 99 Room Air 03/30/17 12:45 67 03/30/17 12:30 69 14 117/68 100 Nasal Cannula 2 03/30/17 12:15 72 14 105/51 100 Nasal Cannula 2 03/30/17 12:00 76 03/30/17 12:00 98.2 76 14 105/52 95 Nasal Cannula 2 03/30/17 10:26 98.1 69 18 140/69 100 CBC/BMP: 03/31/17 0750 03/31/17 0750 Lab Results Laboratory Tests Test 03/31/17 07:50 White Blood Count 11.2 TH/MM3 Red Blood Count 3.34 MIL/MM3 Hemoglobin 9.5 GM/DL Hematocrit 28.7 % Mean Corpuscular Volume 85.9 FL Mean Corpuscular Hemoglobin 28.3 PG Mean Corpuscular Hemoglobin 33.0 % Concent Red Cell Distribution Width 13.1 % Platelet Count 359 TH/MM3 Mean Platelet Volume 6.8 FL Neutrophils (%) (Auto) 75.1 % Lymphocytes (%) (Auto) 13.9 % Monocytes (%) (Auto) 9.0 % Eosinophils (%) (Auto) 1.5 % Basophils (%) (Auto) 0.5 % Neutrophils # (Auto) 8.3 TH/MM3 Lymphocytes # (Auto) 1.6 TH/MM3 Monocytes # (Auto) 1.0 TH/MM3 Eosinophils # (Auto) 0.2 TH/MM3 Basophils # (Auto) 0.1 TH/MM3 CBC Comment DIFF FINAL Differential Comment Sodium Level 137 MEQ/L Potassium Level 4.2 MEQ/L Chloride Level 99 MEQ/L Carbon Dioxide Level 32.0 MEQ/L Anion Gap 6 MEQ/L Blood Urea Nitrogen 17 MG/DL Creatinine 0.69 MG/DL Estimat Glomerular Filtration 118 ML/MIN Rate Random Glucose 213 MG/DL Calcium Level 8.8 MG/DL Total Bilirubin 0.4 MG/DL Aspartate Amino Transf 11 U/L (AST/SGOT) Alanine Aminotransferase 14 U/L (ALT/SGPT) Alkaline Phosphatase 109 U/L Total Protein 7.6 GM/DL Albumin 2.5 GM/DL Physical Exam General General Appearance: No Acute Distress, Comfortable Eyes Eye Exam: Pupils Equal, Pupils Reactive, Sclera White, Extraocular Movement Intact Throat Throat Exam: Oral Mucosa [place] & Moist, Oral Pharynx Normal Neck Neck Exam: Neck Supple, Trachea Midline Pulmonary Resp Exam: Clear Bilaterally, Breath Sounds Equal Cardiology CV Exam: Regular, Normal Sinus Rhythm Gastrointestinal/Abdomen GI Exam: Soft, Non-Tender, Bowel Sounds Present Musculoskeletal MS Remarks Swelling and tenderness of left knee. Right foot wound. Right foot DP and PT palpable right mid foot collapse, right foot with a plantar central wound 5 x 5 cm. There is no probing to bone. There is no tendon exposed. Fibrogranular tissue. Positive serous drainage. No malodor. The right second digit with an ulceration to the distal tip. Integumentary Skin Exam: Warm Skin Remarks Right foot wound. Right foot DP and PT palpable right mid foot collapse, right foot with a plantar central wound 5 x 5 cm. There is no probing to bone. There is no tendon exposed. Fibrogranular tissue. Positive serous drainage. No malodor. The right second digit with an ulceration to the distal tip. Extremeties Extremities Exam: No Edema Neurologic Neuro Exam: Alert, Awake, Oriented, Speech Clear, Moving All Extremities, No Focal Deficits Psychiatric Psych Exam: Appropriate Responses VTE Prophylaxis VTE Prophylaxis Meds: Lovenox PUD Prophylasis PUD Prophylaxis: Protonix Assessment/Plan Assessment/Plan ASSESSMENT/PLAN 1. This is a 57-year male who came to the ER diagnosed status post fall, got entangled and trip and fall. The patient has minor head injury, the CT of the brain does not show anything acute. 2. Neurologically the patient is stable. 3. Diabetic wound of the right foot. infectious disease input noted... wound culture grow proteus and MRSA. . The patient is on vancomycin, Podiatry input noted. s/p bone scan.. negative for osteomylitis. 4. Anemia. checked iron study, B12, folic acid level and fecal occult blood test...show low Iron and B12 deficiency on replacement. 5. Diabetes mellitus ADA diet. NovoLog low-dose sliding scale. Check blood sugars, and adjust, monitor blood sugar. 6. Swelling of the left knee status post fall. 9. Checked MRI of the left knee shows Quadriceps tendon rupture d/w orthopedic.. s/p for surgery. 7. History of anxiety. Continue home medication Xanax 2 mg p.o. q. 8-hour p.r.n. anxiety. 8 .GI Prophylaxis .. Protonix 40 mg p.o. daily. 9. History of hypertension continue home medication. and on clonidine 0.1 mg p.o. q. 6-hour p.r.n. if BP above 160/90. 10. Arthritis. Continue home medication. 11. Deep venous thrombosis prophylaxis, Lovenox 40 mg subcutaneous daily. 12. Left knee swelling and pain MRI Done shows Quadriceps tendon rupture s/p surgery We will manage the patient daily basis and make recommendations on a daily basis. Check CBC, CMP in the morning. DC Plan soon. Discussed Condition with: Patient Last Ybarra MD March 31, 2017 09:17
[2017-03-31] MEDS: VANCOMYCIN INJ 1,750 MG in SODIUM CHLOR 0.9% 250 ML INJ 250 ML IV SCH (10:21)
[2017-03-31] MEDS: LACTATED RINGER'S 1000 ML INJ 1,000 ML IV SCH (10:22)
[2017-03-31] MEDS: ENOXAPARIN SODIUM 30 MG/0.3 ML SYRINGE SQ SCH (10:23)
[2017-03-31 12:00] VITALS: BP 131/98; PULSE 89; RESP 18; TEMP 98; O2SAT 98
[2017-03-31 16:00] VITALS: BP_SYST 128; BP_SYST 147; BP_DIAS 75; BP_DIAS 95; PULSE 104; PULSE 90; RESP 16; RESP 18; TEMP 98; O2SAT 100; O2SAT 96
--- NOTE | 2017-03-31 19:27 | PD.ORT.PN ---
Subjective Subjective Remarks Sitting bedside comfortably with knee immobilizer in place Objective Vitals Vital Signs Date Time Temp Pulse Resp B/P Pulse Ox O2 Delivery O2 Flow Rate FiO2 03/31/17 19:19 18 03/31/17 16:43 18 03/31/17 16:00 98.0 104 16 147/95 100 03/31/17 12:00 98.0 89 18 131/98 98 03/31/17 08:00 97.2 90 18 122/75 97 03/31/17 05:36 03/31/17 00:07 99.7 91 20 125/57 94 03/30/17 20:07 97.7 83 22 112/63 92 I/O 03/30/17 03/30/17 03/30/17 03/31/17 03/31/17 03/31/17 07:00 15:00 23:00 07:00 15:00 23:00 Intake Total 240 ml 750 ml 240 ml Output Total 600 ml 350 ml Balance 240 ml 750 ml -600 ml -110 ml Intake Oral 240 ml 0 ml 240 ml Other 750 ml Output Urine Total 600 ml 350 ml # Voids 5 0 1 # Bowel Movements 2 1 Result Diagram: 03/31/17 0750 03/31/17 0750 Imaging Last 72 hours Impressions Knee MRI 03/27/17 0000 Signed Impressions: Service Date/Time: Monday, March 27, 2017 14:51 - CONCLUSION: Complete rupture of the distal aspect of the quadriceps tendon with a large effusion and fluid extending into the prepatellar soft tissues. Collin Harding MD Tibia/Fibula X-Ray 03/26/17 0000 Signed Impressions: Service Date/Time: Sunday, March 26, 2017 07:17 - CONCLUSION: Soft tissue swelling without fracture. Dawood Donnelly MD Lower Extremity Ultrasound 03/26/17 0000 Signed Impressions: Service Date/Time: Sunday, March 26, 2017 08:10 - CONCLUSION: Normal examination. Collin Ramon MD Knee X-Ray 03/26/17 0000 Signed Impressions: Service Date/Time: Sunday, March 26, 2017 07:14 - CONCLUSION: 1. Mild osteoarthritis. 2. Soft tissue swelling without fracture. Dawood Donnelly MD Head CT 03/26/17 0000 Signed Impressions: Service Date/Time: Sunday, March 26, 2017 07:00 - CONCLUSION: No acute intracranial abnormality is identified. Collin Galarza MD Foot X-Ray 03/26/17 0000 Signed Impressions: Service Date/Time: Sunday, March 26, 2017 07:21 - CONCLUSION: 1. Erosive arthritic changes of the first metatarsophalangeal joint with diffuse soft tissue swelling. 2. Old fracture distal second metatarsal. 3. Amputation third digit. Dawood Donnelly MD Foot MRI 03/26/17 0000 Signed Impressions: Service Date/Time: Sunday, March 26, 2017 15:31 - CONCLUSION: 1. Broad and deep ulceration of the medial arch area and with MRI findings suggesting superficial osteomyelitis of the underlying distal medial cuneiform and proximal first metatarsal base. No deep or extensive osseous signal changes are demonstrated. 2. There is osteoarthritis of the first tarsometatarsal joint but mainly the dorsal portion of the. Chronic appearing arch collapse is noted. 1. Collin Wright MD Objective Remarks Bilateral upper extremities reveal no pain with shoulder elbow wrist or fingers. He does have some atrophy from previous injuries he has intact sensation in all his fingers and able to fully extend and flex his fingers. Right lower extremity reveals no pain with hip or knee range of motion. He is dressings over his foot which are clean and dry. Left lower extremity: Clean dry dressings intact with knee immobilizer placed. Mild swelling. Distally intact capillary refills slightly diminished pulses and no sensation from the ankle distally Assessment & Plan Assessment and Plan Left quadriceps tendon repair POD 1 Daily dressing changes beginning POD 2 with Xeroform, 4 x 4's and [place] wrap Physical [id number] pound weightbearing on the left lower extremity. CKS at all times. No flexion, quad sets or active leglifts Case management for discharge planning to rehabilitation. He is a high risk for fall due to quadriceps tendon repair and also chronic wound of right foot and diabetic neuropathy a fall could reverse and cause failure to quadriceps tendon repair Follow-up Dr. Conway or OLIVER in 2 weeks for left quadricep tendon repair Jose Sherman Jr. March 31, 2017 19:27
[2017-03-31] MEDS ORDERED: WALKER/ADULT/FO1 MIS (19:30)
[2017-03-31 20:45] VITALS: BP 153/79; PULSE 90; RESP 20; TEMP 97.9; O2SAT 100
[2017-03-31] MEDS: INSULIN DETEMIR 100 UNITS/ML VIAL SQ SCH (22:41)
[2017-03-31] MEDS: VANCOMYCIN INJ 1,750 MG in SODIUM CHLORID 0.9% 500 ML INJ 500 ML IV SCH (23:53)
[2017-04-01 00:40] VITALS: BP 129/82; PULSE 89; RESP 16; TEMP 99.8; O2SAT 98
[2017-04-01] MEDS: HYDROmorphone HCL PF 1 MG/ML VIAL IV PRN ×6 (01:08→21:31)
[2017-04-01 08:00] VITALS: BP 162/78; PULSE 92; RESP 18; TEMP 98.6; O2SAT 96
[2017-04-01 08:01] LABS: AUTOMATED NEUTROPHIL # 8.7 TH/MM3 (1.8-7.7); BASOPHIL % 0.2 % (0.0-2.0); EOSINOPHIL # 0.1 TH/MM3 (0-0.4); HEMATOCRIT 27.3 % (39.0-51.0); HEMO FLAGS DIFF FINAL; LYMPH % 11.8 % (9.0-44.0); LYMPHOCYTE # 1.3 TH/MM3 (1.0-4.8); MEAN CELL VOLUME 85.5 FL (80.0-100.0); MEAN CORPUSCULAR HEMOGLOBIN 29.3 PG (27.0-34.0); MEAN CORPUSCULAR HGB CONC 34.3 % (32.0-36.0); MONO % 7.6 % (0.0-8.0); NEUT % 79.4 % (16.0-70.0); PLATELET COUNT 306 TH/MM3 (150-450); RED BLOOD COUNT 3.19 MIL/MM3 (4.50-5.90); RED CELL DISTRIBUTION WIDTH 13.3 % (11.6-17.2); WHITE BLOOD COUNT 10.9 TH/MM3 (4.0-11.0)
[2017-04-01 08:09] LABS: CHLORIDE 102 MEQ/L (98-107); POTASSIUM 3.9 MEQ/L (3.5-5.1); SODIUM (NA) 138 MEQ/L (136-145)
[2017-04-01 08:12] LABS: ANION GAP 7 MEQ/L (5-15); BICARBONATE 28.8 MEQ/L (21.0-32.0)
[2017-04-01 08:13] LABS: BLOOD UREA NITROGEN 17 MG/DL (7-18)
[2017-04-01 08:15] LABS: ALT (GPT) 11 U/L (12-78)
[2017-04-01 08:16] LABS: AST (GOT) 11 U/L (15-37); GLOMERULAR FILTRATION RATE 120 ML/MIN (>89)
[2017-04-01 08:17] LABS: TOTAL BILIRUBIN ADULT 0.4 MG/DL (0.2-1.0)
[2017-04-01 08:18] LABS: ALKALINE PHOSPHATASE 114 U/L (45-117)
[2017-04-01] MEDS: INSULIN ASPART SUPPLEMENTAL SCALE SQ SCH ×4 (08:28→21:00)
[2017-04-01] MEDS: CYANOCOBALAMIN 1,000 MCG TAB PO SCH (08:29)
[2017-04-01] MEDS: FUROSEMIDE 20 MG TAB PO SCH ×2 (08:29→21:31)
[2017-04-01] MEDS: FERROUS SULFATE 325 MG (65 MG ELEMENTAL IRON) TAB PO SCH ×2 (08:29→21:32)
[2017-04-01] MEDS: DILTIAZEM-CD 240 MG CAP ER PO SCH (08:29)
[2017-04-01] MEDS: RAMIPRIL 2.5 MG CAP PO SCH ×2 (08:29→21:32)
[2017-04-01] MEDS: PANTOPRAZOLE SOD 40 MG DELAYED RELEASE TAB PO SCH (08:29)
--- NOTE | 2017-04-01 08:56 | HHI.IDPN ---
Subjective Subjective Remarks id fu dr bahena s/p left knee surgery right foot ulcer diabetic + mrsa /proteus c/o sob this am with hemoptysis says it was started this am but did have a similiar episode a few months ago He is to have a PET scan ? before dc Antibiotics vancomycin Allergies: 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 & 11/12/16; (toe) - 03/2016 Review of Systems Constitutional Constitutional: Weakness Pulmonary Respiratory: Coughing, Shortness of Breath Pulmonary Remarks blood tinge sputum Cardiology Cardiology Remarks no cp GI/Abdomen GI/Abdomen Remarks no nvd Objective . Vital Signs Date Time Temp Pulse Resp B/P Pulse Ox O2 Delivery O2 Flow Rate FiO2 04/01/17 07:58 18 04/01/17 05:58 18 04/01/17 00:40 99.8 89 16 129/82 98 03/31/17 20:45 97.9 90 20 153/79 100 03/31/17 16:00 98.0 104 16 147/95 100 03/31/17 12:00 98.0 89 18 131/98 98 03/31/17 03/31/17 04/01/17 15:00 23:00 07:00 Intake Total 240 ml Output Total 350 ml 200 ml Balance -110 ml -200 ml Intake Oral 240 ml Output Urine Total 350 ml 200 ml # Voids 2 . Laboratory Tests Test 03/31/17 04/01/17 07:50 06:50 White Blood Count 11.2 TH/MM3 10.9 TH/MM3 Red Blood Count 3.34 MIL/MM3 3.19 MIL/MM3 Hemoglobin 9.5 GM/DL 9.4 GM/DL Hematocrit 28.7 % 27.3 % Mean Corpuscular Volume 85.9 FL 85.5 FL Mean Corpuscular Hemoglobin 28.3 PG 29.3 PG Mean Corpuscular Hemoglobin 33.0 % 34.3 % Concent Red Cell Distribution Width 13.1 % 13.3 % Platelet Count 359 TH/MM3 306 TH/MM3 Mean Platelet Volume 6.8 FL 6.9 FL Neutrophils (%) (Auto) 75.1 % 79.4 % Lymphocytes (%) (Auto) 13.9 % 11.8 % Monocytes (%) (Auto) 9.0 % 7.6 % Eosinophils (%) (Auto) 1.5 % 1.0 % Basophils (%) (Auto) 0.5 % 0.2 % Neutrophils # (Auto) 8.3 TH/MM3 8.7 TH/MM3 Lymphocytes # (Auto) 1.6 TH/MM3 1.3 TH/MM3 Monocytes # (Auto) 1.0 TH/MM3 0.8 TH/MM3 Eosinophils # (Auto) 0.2 TH/MM3 0.1 TH/MM3 Basophils # (Auto) 0.1 TH/MM3 0.0 TH/MM3 CBC Comment DIFF FINAL DIFF FINAL Differential Comment Laboratory Tests Test 03/31/17 04/01/17 07:50 06:50 Sodium Level 137 MEQ/L 138 MEQ/L Potassium Level 4.2 MEQ/L 3.9 MEQ/L Chloride Level 99 MEQ/L 102 MEQ/L Carbon Dioxide Level 32.0 MEQ/L 28.8 MEQ/L Anion Gap 6 MEQ/L 7 MEQ/L Blood Urea Nitrogen 17 MG/DL 17 MG/DL Creatinine 0.69 MG/DL 0.68 MG/DL Estimat Glomerular Filtration 118 ML/MIN 120 ML/MIN Rate Random Glucose 213 MG/DL 270 MG/DL Calcium Level 8.8 MG/DL 8.2 MG/DL Total Bilirubin 0.4 MG/DL 0.4 MG/DL Aspartate Amino Transf 11 U/L 11 U/L (AST/SGOT) Alanine Aminotransferase 14 U/L 11 U/L (ALT/SGPT) Alkaline Phosphatase 109 U/L 114 U/L Total Protein 7.6 GM/DL 7.2 GM/DL Albumin 2.5 GM/DL 2.3 GM/DL Imaging Last Impressions Knee MRI 03/27/17 0000 Signed Impressions: Service Date/Time: Monday, March 27, 2017 14:51 - CONCLUSION: Complete rupture of the distal aspect of the quadriceps tendon with a large effusion and fluid extending into the prepatellar soft tissues. Collin Harding MD Tibia/Fibula X-Ray 03/26/17 0000 Signed Impressions: Service Date/Time: Sunday, March 26, 2017 07:17 - CONCLUSION: Soft tissue swelling without fracture. Dawood Donnelly MD Lower Extremity Ultrasound 03/26/17 0000 Signed Impressions: Service Date/Time: Sunday, March 26, 2017 08:10 - CONCLUSION: Normal examination. Collin Ramon MD Knee X-Ray 03/26/17 Signed Impressions: Service Date/Time: Sunday, March 26, 2017 07:14 - CONCLUSION: 1. Mild osteoarthritis. 2. Soft tissue swelling without fracture. Dawood Donnelly MD Head CT 03/26/17 Signed Impressions: Service Date/Time: Sunday, March 26, 2017 07:00 - CONCLUSION: No acute intracranial abnormality is identified. Collin Galarza MD Foot X-Ray 03/26/17 Signed Impressions: Service Date/Time: Sunday, March 26, 2017 07:21 - CONCLUSION: 1. Erosive arthritic changes of the first metatarsophalangeal joint with diffuse soft tissue swelling. 2. Old fracture distal second metatarsal. 3. Amputation third digit. Dawood Donnelly MD Foot MRI 03/26/17 Signed Impressions: Service Date/Time: Sunday, March 26, 2017 15:31 - CONCLUSION: 1. Broad and deep ulceration of the medial arch area and with MRI findings suggesting superficial osteomyelitis of the underlying distal medial cuneiform and proximal first metatarsal base. No deep or extensive osseous signal changes are demonstrated. 2. There is osteoarthritis of the first tarsometatarsal joint but mainly the dorsal portion of the. Chronic appearing arch collapse is noted. 1. Collin Wright MD Physical Exam CONSTITUTIONAL/GENERAL: This is an adequately nourished patient, in no apparent distress. TUBES/LINES/DRAINS: SKIN: No jaundice, rashes, or lesions. Skin temperature appropriate. Not diaphoretic. lungs : decreased but clear MUSCULOSKELETAL: Extremities without clubbing, cyanosis, BL hammer toes Pls palpable bl we4ll perfused L foot without wounds R foot wioth 4-5 cm stage 3 plantar ulcer with small amoun of serous dc surrounded by thick callus no odor yellow exudate but mostly pink granulated tissue + some edema, minimal erytha 2 nd toe with no meceration of the tip well healed 3 rd toe amputation sute Pedal pulses spalpable b/l Assessment & Plan Diagnosis: (1) Osteomyelitis of ankle or foot (2) Diabetic foot ulcer (3) Right upper lobe pneumonia Plan: possible cancer biopsy was negative needs pet scan add cipro continue vanco cxr today (4) Methicillin resistant Staphylococcus aureus infection (5) Diabetes (6) Lower limb amputation, other toe(s) (7) Open wound of right foot with complication Plan: continue vanco/ add cipro x 7days will fu Remarks DFI R foot with planter indected ulcer and ? 2nd toe osteo - MRI findings suggesting superficial osteomyelitis of the underlying distal medial cuneiform and proximal first metatarsal base. - remote clx + MRSA, enterococcus (as of oct 2016) Recently hospitalisex for MRDA woundinfx cont vancomycin bone bx for clx will be helpful Pt actually is relayed to me that he transferred care to Dr Spring will ask Dr Spring to see him dw Dr Nelson wilson RN dw pt @ b/s Problem Qualifiers (1) Diabetic foot ulcer: Qualified Code: E11.621 - Diabetic ulcer of right midfoot associated with type 2 diabetes mellitus, with necrosis of muscle (2) Open wound of right foot with complication: Qualified Code: S91.301D - Open wound of right foot with complication, subsequent encounter Mariangel Shaw April 01, 2017 08:56
[2017-04-01] MEDS: SODIUM CHLORIDE 0.9% FLUSH 5 ML FLUSH IVF SCH ×2 (09:00→21:00)
--- NOTE | 2017-04-01 09:27 | HHI.PR ---
Subjective History of Present Illness Patient complaints of hemoptysis will consult pulmonary have lung mass. . s/p bone scan report noted, wound culture grow proteus and MRSA.. Review of Systems Constitutional Constitutional: Fatigue, Weakness Pulmonary Pulmonary Remarks HEMOPTYSIS. Musculoskeletal MS Remarks Left knee swelling and pain in knee brace. Integumentary Skin Remarks Right foot wound, Vitals/Results Intake & Output 03/31/17 03/31/17 04/01/17 15:00 23:00 07:00 Intake Total 240 ml Output Total 350 ml 200 ml Balance -110 ml -200 ml Intake Oral 240 ml Output Urine Total 350 ml 200 ml # Voids 2 Vital Signs Vital Signs Date Time Temp Pulse Resp B/P Pulse Ox O2 Delivery O2 Flow Rate FiO2 04/01/17 08:00 98.6 92 18 162/78 96 04/01/17 07:58 18 04/01/17 05:58 18 04/01/17 00:40 99.8 89 16 129/82 98 03/31/17 20:45 97.9 90 20 153/79 100 03/31/17 16:00 98.0 104 16 147/95 100 03/31/17 12:00 98.0 89 18 131/98 98 CBC/BMP: 04/01/17 0650 04/01/17 0650 Lab Results Laboratory Tests Test 04/01/17 06:50 White Blood Count 10.9 TH/MM3 Red Blood Count 3.19 MIL/MM3 Hemoglobin 9.4 GM/DL Hematocrit 27.3 % Mean Corpuscular Volume 85.5 FL Mean Corpuscular Hemoglobin 29.3 PG Mean Corpuscular Hemoglobin 34.3 % Concent Red Cell Distribution Width 13.3 % Platelet Count 306 TH/MM3 Mean Platelet Volume 6.9 FL Neutrophils (%) (Auto) 79.4 % Lymphocytes (%) (Auto) 11.8 % Monocytes (%) (Auto) 7.6 % Eosinophils (%) (Auto) 1.0 % Basophils (%) (Auto) 0.2 % Neutrophils # (Auto) 8.7 TH/MM3 Lymphocytes # (Auto) 1.3 TH/MM3 Monocytes # (Auto) 0.8 TH/MM3 Eosinophils # (Auto) 0.1 TH/MM3 Basophils # (Auto) 0.0 TH/MM3 CBC Comment DIFF FINAL Differential Comment Sodium Level 138 MEQ/L Potassium Level 3.9 MEQ/L Chloride Level 102 MEQ/L Carbon Dioxide Level 28.8 MEQ/L Anion Gap 7 MEQ/L Blood Urea Nitrogen 17 MG/DL Creatinine 0.68 MG/DL Estimat Glomerular Filtration 120 ML/MIN Rate Random Glucose 270 MG/DL Calcium Level 8.2 MG/DL Total Bilirubin 0.4 MG/DL Aspartate Amino Transf 11 U/L (AST/SGOT) Alanine Aminotransferase 11 U/L (ALT/SGPT) Alkaline Phosphatase 114 U/L Total Protein 7.2 GM/DL Albumin 2.3 GM/DL Physical Exam General General Appearance: No Acute Distress, Comfortable Eyes Eye Exam: Pupils Equal, Pupils Reactive, Sclera White, Extraocular Movement Intact Throat Throat Exam: Oral Mucosa [place] & Moist, Oral Pharynx Normal Neck Neck Exam: Neck Supple, Trachea Midline Pulmonary Resp Exam: Clear Bilaterally, Breath Sounds Equal Cardiology CV Exam: Regular, Normal Sinus Rhythm Gastrointestinal/Abdomen GI Exam: Soft, Non-Tender, Bowel Sounds Present Musculoskeletal MS Remarks Swelling and tenderness of left knee. Right foot wound. Right foot DP and PT palpable right mid foot collapse, right foot with a plantar central wound 5 x 5 cm. There is no probing to bone. There is no tendon exposed. Fibrogranular tissue. Positive serous drainage. No malodor. The right second digit with an ulceration to the distal tip. Integumentary Skin Exam: Warm Skin Remarks Right foot wound. Right foot DP and PT palpable right mid foot collapse, right foot with a plantar central wound 5 x 5 cm. There is no probing to bone. There is no tendon exposed. Fibrogranular tissue. Positive serous drainage. No malodor. The right second digit with an ulceration to the distal tip. Extremeties Extremities Exam: No Edema Neurologic Neuro Exam: Alert, Awake, Oriented, Speech Clear, Moving All Extremities, No Focal Deficits Psychiatric Psych Exam: Appropriate Responses VTE Prophylaxis VTE Prophylaxis Meds: Lovenox PUD Prophylasis PUD Prophylaxis: Protonix Assessment/Plan Assessment/Plan ASSESSMENT/PLAN 1. This is a 57-year male who came to the ER diagnosed status post fall, got entangled and trip and fall. The patient has minor head injury, the CT of the brain does not show anything acute. 2. Neurologically the patient is stable. 3. Diabetic wound of the right foot. infectious disease input noted... wound culture grow proteus and MRSA. . The patient is on vancomycin, Podiatry input noted. s/p bone scan.. negative for osteomylitis. 4. Anemia. checked iron study, B12, folic acid level and fecal occult blood test...show low Iron and B12 deficiency on replacement. 5. Diabetes mellitus ADA diet. NovoLog low-dose sliding scale. Check blood sugars, and adjust, monitor blood sugar. 6. Swelling of the left knee status post fall. 9. Checked MRI of the left knee shows Quadriceps tendon rupture d/w orthopedic.. s/p for surgery. 7. History of anxiety. Continue home medication Xanax 2 mg p.o. q. 8-hour p.r.n. anxiety. 8 .GI Prophylaxis .. Protonix 40 mg p.o. daily. 9. History of hypertension continue home medication. and on clonidine 0.1 mg p.o. q. 6-hour p.r.n. if BP above 160/90. 10. Arthritis. Continue home medication. 11. Deep venous thrombosis prophylaxis, Lovenox 40 mg subcutaneous daily. 12. Left knee swelling and pain MRI Done shows Quadriceps tendon rupture s/p surgery 13. hemoptysis will consult pulmonary have lung mass We will manage the patient daily basis and make recommendations on a daily basis. Check CBC, CMP in the morning. DC Plan soon. Discussed Condition with: Patient Last Ybarra MD April 01, 2017 09:26
[2017-04-01] MEDS: CIPROFLOXACIN/DEXT 400 MG/200 ML IV SCH ×2 (09:37→21:35)
[2017-04-01] MEDS: ENOXAPARIN SODIUM 30 MG/0.3 ML SYRINGE SQ SCH (09:37)
[2017-04-01] MEDS: VANCOMYCIN INJ 1,750 MG in SODIUM CHLORID 0.9% 500 ML INJ 500 ML IV SCH ×2 (09:37→21:35)
--- NOTE | 2017-04-01 09:53 | RADHPO ---
EXAM DATE/TIME: 04/01/2017 09:39 [facility] COMPARISON: CHEST SINGLE AP, February 06, 2017, 12:20. INDICATIONS : Coughing up blood, short of breath, fever MEDICAL HISTORY : Diabetes mellitus type I. SURGICAL HISTORY : None. ENCOUNTER: Subsequent ACUITY: 1 week PAIN SCORE: 0/10 LOCATION: Bilateral chest FINDINGS: A single view of the chest demonstrates the lungs to be symmetrically aerated without evidence of mas s or effusion. There is mild hazy opacity in the right upper lobe. The cardiomediastinal contours ar e unremarkable. Osseous structures are intact. CONCLUSION: Mild hazy opacity in the right upper lobe most consistent with infiltrate. This may r epresent pneumonia. Jose Maria MD on April 01, 2017 at 9:50 Board Certified Radiologist. This report was verified electronically.
[2017-04-01 12:00] VITALS: BP 130/74; PULSE 93; RESP 18; TEMP 98.3; O2SAT 96
[2017-04-01 16:00] VITALS: BP 128/80; PULSE 89; RESP 18; TEMP 98.7; O2SAT 96
[2017-04-01 20:00] VITALS: BP 140/66; PULSE 88; RESP 20; TEMP 98.2; O2SAT 97
[2017-04-01] MEDS: INSULIN DETEMIR 100 UNITS/ML VIAL SQ SCH (21:00)
[2017-04-02] VITALS: BP 143/74; PULSE 79; RESP 20; TEMP 96.7; O2SAT 100
[2017-04-02] MEDS: HYDROmorphone HCL PF 1 MG/ML VIAL IV PRN ×5 (05:40→22:39)
[2017-04-02] MEDS: INSULIN ASPART SUPPLEMENTAL SCALE SQ SCH ×4 (06:37→21:34)
[2017-04-02 06:51] LABS: AUTOMATED NEUTROPHIL # 7.2 TH/MM3 (1.8-7.7); BASOPHIL # 0.1 TH/MM3 (0-0.2); BASOPHIL % 0.6 % (0.0-2.0); EOSINOPHIL # 0.2 TH/MM3 (0-0.4); EOSINOPHIL % 2.2 % (0.0-4.0); HEMATOCRIT 29.2 % (39.0-51.0); HEMO FLAGS DIFF FINAL; LYMPH % 19.3 % (9.0-44.0); MEAN CELL VOLUME 83.8 FL (80.0-100.0); MEAN CORPUSCULAR HEMOGLOBIN 28.1 PG (27.0-34.0); MEAN CORPUSCULAR HGB CONC 33.6 % (32.0-36.0); MONO % 7.2 % (0.0-8.0); NEUT % 70.7 % (16.0-70.0); PLATELET COUNT 364 TH/MM3 (150-450); RED BLOOD COUNT 3.49 MIL/MM3 (4.50-5.90); RED CELL DISTRIBUTION WIDTH 12.5 % (11.6-17.2); WHITE BLOOD COUNT 10.2 TH/MM3 (4.0-11.0)
[2017-04-02 06:58] LABS: CHLORIDE 100 MEQ/L (98-107); POTASSIUM 3.8 MEQ/L (3.5-5.1); SODIUM (NA) 138 MEQ/L (136-145)
[2017-04-02 07:30] LABS: ALKALINE PHOSPHATASE 103 U/L (45-117); ALT (GPT) 11 U/L (12-78); ANION GAP 7 MEQ/L (5-15); AST (GOT) 15 U/L (15-37); BICARBONATE 30.6 MEQ/L (21.0-32.0); BLOOD UREA NITROGEN 14 MG/DL (7-18); GLOMERULAR FILTRATION RATE 144 ML/MIN (>89); TOTAL BILIRUBIN ADULT 0.5 MG/DL (0.2-1.0)
--- NOTE | 2017-04-02 07:57 | HHI.PR ---
Subjective History of Present Illness Patient still have hemoptysis consulted pulmonary have lung mass. . s/p bone scan report noted, wound culture grow proteus and MRSA.. d/w LUCIUS Quintero. Review of Systems Constitutional Constitutional: Fatigue, Weakness Pulmonary Pulmonary Remarks HEMOPTYSIS. Musculoskeletal MS Remarks Left knee swelling and pain in knee brace. Integumentary Skin Remarks Right foot wound, Vitals/Results Intake & Output 04/01/17 04/01/17 04/02/17 14:59 22:59 06:59 Intake Total 1110 ml 840 ml 940 ml Output Total 1100 ml Balance 1110 ml 840 ml -160 ml Intake Oral 360 ml 840 ml 240 ml IV Total 750 ml 700 ml Output Urine Total 1100 ml # Voids 2 6 Vital Signs Vital Signs Date Time Temp Pulse Resp B/P Pulse Ox O2 Delivery O2 Flow Rate FiO2 04/02/17 00:00 96.7 79 20 143/74 100 04/01/17 20:00 98.2 88 20 140/66 97 04/01/17 17:45 18 04/01/17 16:29 18 04/01/17 16:00 98.7 89 18 128/80 96 04/01/17 12:00 98.3 93 18 130/74 96 04/01/17 08:00 98.6 92 18 162/78 96 CBC/BMP: 04/02/17 0555 04/02/17 0555 Lab Results Laboratory Tests Test 04/02/17 05:55 White Blood Count 10.2 TH/MM3 Red Blood Count 3.49 MIL/MM3 Hemoglobin 9.8 GM/DL Hematocrit 29.2 % Mean Corpuscular Volume 83.8 FL Mean Corpuscular Hemoglobin 28.1 PG Mean Corpuscular Hemoglobin 33.6 % Concent Red Cell Distribution Width 12.5 % Platelet Count 364 TH/MM3 Mean Platelet Volume 7.0 FL Neutrophils (%) (Auto) 70.7 % Lymphocytes (%) (Auto) 19.3 % Monocytes (%) (Auto) 7.2 % Eosinophils (%) (Auto) 2.2 % Basophils (%) (Auto) 0.6 % Neutrophils # (Auto) 7.2 TH/MM3 Lymphocytes # (Auto) 2.0 TH/MM3 Monocytes # (Auto) 0.7 TH/MM3 Eosinophils # (Auto) 0.2 TH/MM3 Basophils # (Auto) 0.1 TH/MM3 CBC Comment DIFF FINAL Differential Comment Sodium Level 138 MEQ/L Potassium Level 3.8 MEQ/L Chloride Level 100 MEQ/L Carbon Dioxide Level 30.6 MEQ/L Anion Gap 7 MEQ/L Blood Urea Nitrogen 14 MG/DL Creatinine 0.58 MG/DL Estimat Glomerular Filtration 144 ML/MIN Rate Random Glucose 178 MG/DL Calcium Level 9.0 MG/DL Total Bilirubin 0.5 MG/DL Aspartate Amino Transf 15 U/L (AST/SGOT) Alanine Aminotransferase 11 U/L (ALT/SGPT) Alkaline Phosphatase 103 U/L Total Protein 7.9 GM/DL Albumin 2.4 GM/DL Physical Exam General General Appearance: No Acute Distress, Comfortable Eyes Eye Exam: Pupils Equal, Pupils Reactive, Sclera White, Extraocular Movement Intact Throat Throat Exam: Oral Mucosa Tye & Moist, Oral Pharynx Normal Neck Neck Exam: Neck Supple, Trachea Midline Pulmonary Resp Exam: Clear Bilaterally, Breath Sounds Equal Cardiology CV Exam: Regular, Normal Sinus Rhythm Gastrointestinal/Abdomen GI Exam: Soft, Non-Tender, Bowel Sounds Present Musculoskeletal MS Remarks Swelling and tenderness of left knee. Right foot wound. Right foot DP and PT palpable right mid foot collapse, right foot with a plantar central wound 5 x 5 cm. There is no probing to bone. There is no tendon exposed. Fibrogranular tissue. Positive serous drainage. No malodor. The right second digit with an ulceration to the distal tip. Integumentary Skin Exam: Warm Skin Remarks Right foot wound. Right foot DP and PT palpable right mid foot collapse, right foot with a plantar central wound 5 x 5 cm. There is no probing to bone. There is no tendon exposed. Fibrogranular tissue. Positive serous drainage. No malodor. The right second digit with an ulceration to the distal tip. Extremeties Extremities Exam: No Edema Neurologic Neuro Exam: Alert, Awake, Oriented, Speech Clear, Moving All Extremities, No Focal Deficits Psychiatric Psych Exam: Appropriate Responses VTE Prophylaxis VTE Prophylaxis Meds: Lovenox PUD Prophylasis PUD Prophylaxis: Protonix Assessment/Plan Assessment/Plan ASSESSMENT/PLAN 1. This is a 57-year male who came to the ER diagnosed status post fall, got entangled and trip and fall. The patient has minor head injury, the CT of the brain does not show anything acute. 2. Neurologically the patient is stable. 3. Diabetic wound of the right foot. infectious disease input noted... wound culture grow proteus and MRSA. . The patient is on vancomycin, Podiatry input noted. s/p bone scan.. negative for osteomylitis. 4. Anemia. checked iron study, B12, folic acid level and fecal occult blood test...show low Iron and B12 deficiency on replacement. 5. Diabetes mellitus ADA diet. NovoLog low-dose sliding scale. Check blood sugars, and adjust, monitor blood sugar. 6. Swelling of the left knee status post fall. 9. Checked MRI of the left knee shows Quadriceps tendon rupture d/w orthopedic.. s/p surgery. 7. History of anxiety. Continue home medication Xanax 2 mg p.o. q. 8-hour p.r.n. anxiety. 8 .GI Prophylaxis .. Protonix 40 mg p.o. daily. 9. History of hypertension continue home medication. and on clonidine 0.1 mg p.o. q. 6-hour p.r.n. if BP above 160/90. 10. Arthritis. Continue home medication. 11. Deep venous thrombosis prophylaxis, Lovenox 40 mg subcutaneous daily. 12. Left knee swelling and pain MRI Done shows Quadriceps tendon rupture s/p surgery 13. Hemoptysis consulted pulmonary have lung mass We will manage the patient daily basis and make recommendations on a daily basis. Check CBC, CMP in the morning. DC Plan soon. Discussed Condition with: Patient Last Ybarra MD April 02, 2017 07:57
[2017-04-02 08:00] VITALS: BP 163/72; PULSE 77; RESP 18; TEMP 98.7; O2SAT 96
[2017-04-02] MEDS: FERROUS SULFATE 325 MG (65 MG ELEMENTAL IRON) TAB PO SCH ×2 (08:24→21:23)
[2017-04-02] MEDS: CIPROFLOXACIN/DEXT 400 MG/200 ML IV SCH ×2 (08:24→21:24)
[2017-04-02] MEDS: RAMIPRIL 2.5 MG CAP PO SCH ×2 (08:25→21:23)
[2017-04-02] MEDS: FUROSEMIDE 20 MG TAB PO SCH ×2 (08:25→21:23)
[2017-04-02] MEDS: CYANOCOBALAMIN 1,000 MCG TAB PO SCH (08:25)
[2017-04-02] MEDS: PANTOPRAZOLE SOD 40 MG DELAYED RELEASE TAB PO SCH (08:25)
[2017-04-02] MEDS: DILTIAZEM-CD 240 MG CAP ER PO SCH (08:25)
[2017-04-02] MEDS: ENOXAPARIN SODIUM 30 MG/0.3 ML SYRINGE SQ SCH (08:26)
[2017-04-02] MEDS: SODIUM CHLORIDE 0.9% FLUSH 5 ML FLUSH IVF SCH ×2 (08:29→21:00)
[2017-04-02] MEDS ORDERED: PHARMACY ORDERED LAB ONE (09:45)
[2017-04-02 12:00] VITALS: BP 136/75; PULSE 79; RESP 18; TEMP 97.7; O2SAT 96
[2017-04-02 16:00] VITALS: BP 146/79; PULSE 84; RESP 20; TEMP 97.2; O2SAT 96
[2017-04-02] MEDS: VANCOMYCIN INJ 1,750 MG in SODIUM CHLORID 0.9% 500 ML INJ 500 ML IV SCH ×2 (18:01→22:39)
[2017-04-02] MEDS: RESP: ALBUTEROL 2.5 MG/IPRATROPIUM 0.5 MG NEB (SCH) NEB (19:48)
[2017-04-02 20:00] VITALS: BP 133/71; PULSE 82; RESP 18; TEMP 98.7; O2SAT 98
[2017-04-02] MEDS: INSULIN DETEMIR 100 UNITS/ML VIAL SQ SCH (21:22)
--- NOTE | 2017-04-02 21:28 | RADHPO ---
EXAM DATE/TIME: 04/02/2017 20:50 [facility] COMPARISON: CHEST SINGLE AP, April 01, 2017, 9:39. INDICATIONS : Mild hazy opacity in right upper lobe. RADIATION DOSE: 19.38 CTDIvol (mGy) MEDICAL HISTORY : Hypertension. Diabetes mellitus type 2. SURGICAL HISTORY : Heart ablation. ENCOUNTER: Initial ACUITY: 1 day PAIN SCALE: 0/10 LOCATION: Right upper chest TECHNIQUE: Volumetric scanning of the chest was performed. Using automated exposure control and adjustment of t he mA and/or kV according to patient size, radiation dose was kept as low as reasonably achievable to obtain optimal diagnostic quality images. FINDINGS: LUNGS: There is patchy nodular airspace infiltrate in the right upper lobe. The largest focal nodular area i n the posterior lateral right upper lobe measures about 17 mm in size. The left lung is clear. PLEURAE: There is no pleural thickening or pleural effusion. MEDIASTINUM: The heart and great vessels demonstrate no acute abnormality. There is no mediastinal or hilar lymph adenopathy. Dense coronary artery calcifications. AXILLAE: Within normal limits. No lymphadenopathy. MUSCULOSKELETAL: Within normal limits for patient age. MISCELLANEOUS: There is a 3 cm mass involving the left adrenal gland. CONCLUSION: Nodular infiltrate in the right upper lobe. The appearance should be followed to resolution. 3 cm left adrenal mass warrants further evaluation on elective basis with chemical shift MRI. Collin Ramon MD on April 02, 2017 at 21:22 Board Certified Radiologist. This report was verified electronically.
[2017-04-03] VITALS: BP 119/63; PULSE 84; RESP 20; TEMP 98.3; O2SAT 98
[2017-04-03] MEDS: HYDROmorphone HCL PF 1 MG/ML VIAL IV PRN ×6 (04:15→21:26)
[2017-04-03] MEDS: INSULIN ASPART SUPPLEMENTAL SCALE SQ SCH ×4 (05:28→21:00)
[2017-04-03 05:41] LABS: AUTOMATED NEUTROPHIL # 6.9 TH/MM3 (1.8-7.7); BASOPHIL % 0.4 % (0.0-2.0); EOSINOPHIL # 0.2 TH/MM3 (0-0.4); EOSINOPHIL % 1.8 % (0.0-4.0); HEMATOCRIT 27.6 % (39.0-51.0); HEMO FLAGS DIFF FINAL; LYMPH % 15.4 % (9.0-44.0); LYMPHOCYTE # 1.4 TH/MM3 (1.0-4.8); MEAN CELL VOLUME 83.5 FL (80.0-100.0); MEAN CORPUSCULAR HEMOGLOBIN 27.6 PG (27.0-34.0); MONO % 9.2 % (0.0-8.0); NEUT % 73.2 % (16.0-70.0); PLATELET COUNT 389 TH/MM3 (150-450); RED BLOOD COUNT 3.31 MIL/MM3 (4.50-5.90); RED CELL DISTRIBUTION WIDTH 12.7 % (11.6-17.2); WHITE BLOOD COUNT 9.4 TH/MM3 (4.0-11.0)
[2017-04-03 05:48] LABS: CHLORIDE 103 MEQ/L (98-107); POTASSIUM 3.7 MEQ/L (3.5-5.1); SODIUM (NA) 138 MEQ/L (136-145)
[2017-04-03 05:52] LABS: ANION GAP 7 MEQ/L (5-15); BICARBONATE 27.6 MEQ/L (21.0-32.0); BLOOD UREA NITROGEN 16 MG/DL (7-18)
[2017-04-03 05:55] LABS: ALT (GPT) 10 U/L (12-78); AST (GOT) 11 U/L (15-37); GLOMERULAR FILTRATION RATE 139 ML/MIN (>89)
[2017-04-03 05:56] LABS: TOTAL BILIRUBIN ADULT 0.3 MG/DL (0.2-1.0)
[2017-04-03 05:58] LABS: ALKALINE PHOSPHATASE 91 U/L (45-117)
[2017-04-03] MEDS: RESP: ALBUTEROL 2.5 MG/IPRATROPIUM 0.5 MG NEB (SCH) NEB ×4 (07:30→20:05)
[2017-04-03 08:00] VITALS: BP 162/74; PULSE 74; RESP 18; TEMP 97.2; O2SAT 98
--- NOTE | 2017-04-03 08:15 | HHI.PR ---
Subjective History of Present Illness Patient still have hemoptysis consulted pulmonary have lung mass. CT Chest noted shows nodular infiltrate. . wound culture grow proteus and MRSA.. d/w LUCIUS Maria.. have 3 cm left adrenal mass check MRI of abdomen with contrast. d/ w Dr Wilks infectious disease need IV vancomycin and PO Cipro at discharge. Review of Systems Constitutional Constitutional: Fatigue, Weakness Pulmonary Pulmonary Remarks HEMOPTYSIS. Musculoskeletal MS Remarks Left knee swelling and pain in knee brace. Integumentary Skin Remarks Right foot wound, Vitals/Results Intake & Output 04/02/17 04/02/17 04/03/17 14:59 22:59 06:59 Intake Total 750 ml 240 ml 480 ml Output Total 1250 ml 400 ml 450 ml Balance -500 ml -160 ml 30 ml Intake Oral 750 ml 240 ml 480 ml Output Urine Total 1250 ml 400 ml 450 ml # Bowel Movements 0 0 Vital Signs Vital Signs Date Time Temp Pulse Resp B/P Pulse Ox O2 Delivery O2 Flow Rate FiO2 04/03/17 00:00 98.3 84 20 119/63 98 04/02/17 20:00 98.7 82 18 133/71 98 04/02/17 16:00 97.2 84 20 146/79 96 04/02/17 12:00 97.7 79 18 136/75 96 CBC/BMP: 04/03/17 0513 04/03/17 0513 Lab Results Laboratory Tests Test 04/02/17 04/03/17 10:10 05:13 Vancomycin Level Trough 7.8 MCG/ML White Blood Count 9.4 TH/MM3 Red Blood Count 3.31 MIL/MM3 Hemoglobin 9.1 GM/DL Hematocrit 27.6 % Mean Corpuscular Volume 83.5 FL Mean Corpuscular Hemoglobin 27.6 PG Mean Corpuscular Hemoglobin 33.0 % Concent Red Cell Distribution Width 12.7 % Platelet Count 389 TH/MM3 Mean Platelet Volume 6.7 FL Neutrophils (%) (Auto) 73.2 % Lymphocytes (%) (Auto) 15.4 % Monocytes (%) (Auto) 9.2 % Eosinophils (%) (Auto) 1.8 % Basophils (%) (Auto) 0.4 % Neutrophils # (Auto) 6.9 TH/MM3 Lymphocytes # (Auto) 1.4 TH/MM3 Monocytes # (Auto) 0.9 TH/MM3 Eosinophils # (Auto) 0.2 TH/MM3 Basophils # (Auto) 0.0 TH/MM3 CBC Comment DIFF FINAL Differential Comment Sodium Level 138 MEQ/L Potassium Level 3.7 MEQ/L Chloride Level 103 MEQ/L Carbon Dioxide Level 27.6 MEQ/L Anion Gap 7 MEQ/L Blood Urea Nitrogen 16 MG/DL Creatinine 0.60 MG/DL Estimat Glomerular Filtration 139 ML/MIN Rate Random Glucose 226 MG/DL Calcium Level 8.3 MG/DL Total Bilirubin 0.3 MG/DL Aspartate Amino Transf 11 U/L (AST/SGOT) Alanine Aminotransferase 10 U/L (ALT/SGPT) Alkaline Phosphatase 91 U/L Total Protein 7.0 GM/DL Albumin 2.2 GM/DL Physical Exam General General Appearance: No Acute Distress, Comfortable Eyes Eye Exam: Pupils Equal, Pupils Reactive, Sclera White, Extraocular Movement Intact Throat Throat Exam: Oral Mucosa [place] & Moist, Oral Pharynx Normal Neck Neck Exam: Neck Supple, Trachea Midline Pulmonary Resp Exam: Clear Bilaterally, Breath Sounds Equal Cardiology CV Exam: Regular, Normal Sinus Rhythm Gastrointestinal/Abdomen GI Exam: Soft, Non-Tender, Bowel Sounds Present Musculoskeletal MS Remarks Swelling and tenderness of left knee. Right foot wound. Right foot DP and PT palpable right mid foot collapse, right foot with a plantar central wound 5 x 5 cm. There is no probing to bone. There is no tendon exposed. Fibrogranular tissue. Positive serous drainage. No malodor. The right second digit with an ulceration to the distal tip. Integumentary Skin Exam: Warm Skin Remarks Right foot wound. Right foot DP and PT palpable right mid foot collapse, right foot with a plantar central wound 5 x 5 cm. There is no probing to bone. There is no tendon exposed. Fibrogranular tissue. Positive serous drainage. No malodor. The right second digit with an ulceration to the distal tip. Extremeties Extremities Exam: No Edema Neurologic Neuro Exam: Alert, Awake, Oriented, Speech Clear, Moving All Extremities, No Focal Deficits Psychiatric Psych Exam: Appropriate Responses VTE Prophylaxis VTE Prophylaxis Meds: Lovenox PUD Prophylasis PUD Prophylaxis: Protonix Assessment/Plan Assessment/Plan ASSESSMENT/PLAN 1. This is a 57-year male who came to the ER diagnosed status post fall, got entangled and trip and fall. The patient has minor head injury, the CT of the brain does not show anything acute. 2. Neurologically the patient is stable. 3. Diabetic wound of the right foot. / Osteomylitis infectious disease input noted... wound culture grow proteus and MRSA.. . The patient is on vancomycin, Podiatry input noted. s/p bone scan.. negative for osteomylitis.. d/w Dr Wilks ID. have osteomylitis.. need IV vancomycin and PO Cipro at discharge. 4. Anemia. checked iron study, B12, folic acid level and fecal occult blood test...show low Iron and B12 deficiency on replacement. 5. Diabetes mellitus ADA diet. NovoLog low-dose sliding scale. Check blood sugars, and adjust, monitor blood sugar. 6. Swelling of the left knee status post fall. 9. Checked MRI of the left knee shows Quadriceps tendon rupture d/w orthopedic.. s/p surgery. 7. History of anxiety. Continue home medication Xanax 2 mg p.o. q. 8-hour p.r.n. anxiety. 8 .GI Prophylaxis .. Protonix 40 mg p.o. daily. 9. History of hypertension continue home medication. and on clonidine 0.1 mg p.o. q. 6-hour p.r.n. if BP above 160/90. 10. Arthritis. Continue home medication. 11. Deep venous thrombosis prophylaxis, Lovenox 40 mg subcutaneous daily. 12. Left knee swelling and pain MRI Done shows Quadriceps tendon rupture s/p surgery 13. Hemoptysis pulmonary input noted have lung mass ..CT Chest shows nodular infiltrate. 14. 3 cm left adrenal mass check MRI of abdomen with contrast. We will manage the patient daily basis and make recommendations on a daily basis. Check CBC, CMP in the morning. Discussed Condition with: Patient Last Ybarra MD April 03, 2017 08:15
--- NOTE | 2017-04-03 08:22 | MB ---
cc: PRADEEP BANKS DATE OF CONSULTATION 04/02/2017. REASON FOR CONSULTATION Hemoptysis and lung infiltrate. HISTORY OF PRESENT ILLNESS This is a 57-year-old white male with a history of COPD and diabetes, was initially admitted with ulceration of his plantar right foot and a history of peripheral neuropathy. The patient has a history of diabetes. He has been followed by the foot surgeon and also has had a history for a cough and previous history of pneumonia with hemoptysis in January of this year. He has been short of breath with activity and 8 weeks ago underwent a bronchoscopy for evaluation of hemoptysis and a right upper lobe infiltrate. The findings were suggestive of inflammation and there was no evidence of malignancy and the AFB and fungal cultures were negative upon bronchoscopy. Cytology was also negative. The patient completed a course of antibiotics this past month and now was admitted with a leg ulceration and has received further antibiotic therapy per Infectious Disease Service. A chest x-ray done upon this admission to the hospital showed a hazy infiltrate in the right upper lung zone with no evidence of any mass. The patient had suffered a fall during this admission and has ruptured his quadriceps tendon in the left leg and underwent surgery to repair the tendon and now has a brace in his left leg. He has no fevers or chills or night sweats but has had some hemoptysis over the past few days. PAST HISTORY 1. 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 2. He has had a history of diabetes mellitus insulin dependent. 3. History of mild hypertension. 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 The patient has a history of drinking alcohol in the past but not recently. FAMILY HISTORY Noncontributory. ALLERGIES No drug allergies. SYSTEMS REVIEW The patient is overweight. He has epigastric distress and reflux. He has had leg swelling. He has joint pains and ulcerations of the legs. Denies any calf muscle pains. There is skin rash. The patient has no anxiety or depression. He has pain in his left leg from his recent surgery and has a brace on his leg. PHYSICAL EXAMINATION GENERAL: This is a middle-aged white male who is pale and in no acute distress. VITAL SIGNS: His blood pressure is 130/70, pulse 82, respirations 20, temperature 98.2. HEENT: Head normocephalic. Pupils are reactive. Tongue moist. Throat clear. He has no inflammation. NECK: No bruits, no thyroid enlargement or lymphadenopathy. CHEST: Equal movements with distant breath sounds. Occasional crackles heard over the right lung sales and wheezes. HEART SOUNDS: Regular S1 and S2. No murmur. No S3. ABDOMEN: Soft, benign. No masses, no organomegaly or tenderness. Bowel sounds are active. EXTREMITIES: Edema 1+. Deformity of the right foot with dressing over ulcerations of the foot and peripheral pulses are not felt. 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 The left foot is unremarkable. There is ulceration of the right foot as well in the plantar area. NEUROLOGIC: 1+ reflexes. No gross motor deficits. IMPRESSION 1. Hemoptysis with right lung infiltrate, chronic. 2. COPD. 3. History of quadriceps tendon repair due to rupture. 4. Chronic right foot ulceration. 5. Diabetes mellitus insulin dependent. PLAN The patient has been advised that a CT scan of the chest will be obtained to evaluate the right lung infiltrate. He was also advised to have a PET/CT scan to see there if there is any uptake in the right lung density and if there is further investigations including a needle aspiration biopsy may be indicated. Antibiotic therapy has already been started which will continue. Nebulized albuterol/Atrovent solution q.i.d. p.r.n. to be added as well and oxygen supplementation at 2 liters nasal cannula. Thank you Dr. Last Ybarra for this consultation. I will follow this patient with you. MD JORGE A Carlisle/TONIA /11:10 PM /8:07 AM
[2017-04-03] MEDS: PANTOPRAZOLE SOD 40 MG DELAYED RELEASE TAB PO SCH (08:35)
[2017-04-03] MEDS: DILTIAZEM-CD 240 MG CAP ER PO SCH (08:35)
[2017-04-03] MEDS: CYANOCOBALAMIN 1,000 MCG TAB PO SCH (08:35)
[2017-04-03] MEDS: FUROSEMIDE 20 MG TAB PO SCH ×2 (08:36→21:13)
[2017-04-03] MEDS: FERROUS SULFATE 325 MG (65 MG ELEMENTAL IRON) TAB PO SCH ×2 (08:36→20:57)
[2017-04-03] MEDS: VANCOMYCIN INJ 1,750 MG in SODIUM CHLORID 0.9% 500 ML INJ 500 ML IV SCH ×2 (08:36→22:40)
[2017-04-03] MEDS: RAMIPRIL 2.5 MG CAP PO SCH ×2 (08:36→20:57)
[2017-04-03] MEDS: CIPROFLOXACIN/DEXT 400 MG/200 ML IV SCH ×3 (08:36→21:32)
[2017-04-03] MEDS ORDERED: CYANOCOBALAMIN 1,000 MCG TAB PO SCH (09:00)
[2017-04-03] MEDS: SODIUM CHLORIDE 0.9% FLUSH 5 ML FLUSH IVF SCH ×2 (09:00→21:00)
[2017-04-03] MEDS: ENOXAPARIN SODIUM 40 MG/0.4 ML SYRINGE SQ SCH (11:36)
[2017-04-03 16:00] VITALS: BP 104/68; PULSE 81; RESP 20; TEMP 97.2; O2SAT 98
[2017-04-03] MEDS ORDERED: guaiFENesin/CODEINE SYRUP 200 MG/20 MG/10 ML CUP PO PRN (19:45)
--- NOTE | 2017-04-03 19:45 | HHI.PR ---
Subjective Remarks Less Cough and No hemoptysis. No fever. CT chest shows a Nodular infiltrate. Objective Vital Signs Date Time Temp Pulse Resp B/P Pulse Ox O2 Delivery O2 Flow Rate FiO2 04/03/17 17:34 18 04/03/17 16:00 97.2 81 20 104/68 98 04/03/17 15:42 18 04/03/17 08:00 97.2 74 18 162/74 98 04/03/17 00:00 98.3 84 20 119/63 98 04/02/17 20:00 98.7 82 18 133/71 98 I/O 04/02/17 04/02/17 04/02/17 04/03/17 04/03/17 04/03/17 07:00 15:00 23:00 07:00 15:00 23:00 Intake Total 940 ml 750 ml 240 ml 480 ml 850 ml Output Total 1100 ml 1250 ml 400 ml 450 ml 1250 ml Balance -160 ml -500 ml -160 ml 30 ml -400 ml Intake Oral 240 ml 750 ml 240 ml 480 ml 850 ml IV Total 700 ml Output Urine Total 1100 ml 1250 ml 400 ml 450 ml 1250 ml # Bowel Movements 0 0 1 Result Diagram: 04/03/1751204/03/17512 Objective Remarks GENERAL: This is a middle-aged white male who is pale and in no acute distress. HEENT: Head normocephalic. Pupils are reactive. Tongue moist. Throat clear. He has no inflammation. NECK: No bruits, no thyroid enlargement or lymphadenopathy. CHEST: Equal movements with distant breath sounds. Occasional crackles heard over the right lung sales and wheezes. HEART SOUNDS: Regular S1 and S2. No murmur. No S3. ABDOMEN: Soft, benign. No masses, no organomegaly or tenderness. Bowel sounds are active. EXTREMITIES: Edema 1+. Deformity of the right foot with dressing over ulcerations of the foot and peripheral pulses are not felt. 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 The left foot is unremarkable. There is ulceration of the right foot as well in the plantar area. NEUROLOGIC: 1+ reflexes. No gross motor deficits. Assessment and Plan Assessment and Plan IMPRESSION 1. Hemoptysis with right lung infiltrate, chronic. 2. COPD. 3. History of quadriceps tendon repair due to rupture. 4. Chronic right foot ulceration. 5. Diabetes mellitus insulin dependent. 6. Right lung nodules. Plan : 1. Wean O2 to RA. 2. Continue Nebs qid , duoneb 3. Advised to have a Needle Biopsy of the right lung nodule. 4. Will get PET CT as OP. 5. Add Cough med PRN. Deuce Sylvester MD April 03, 2017 19:45
[2017-04-03 20:00] VITALS: BP 138/89; PULSE 78; RESP 18; TEMP 97.6; O2SAT 96
[2017-04-03 20:10] VITALS: PULSE 69
[2017-04-03] MEDS: INSULIN DETEMIR 100 UNITS/ML VIAL SQ SCH (21:32)
[2017-04-04 01:15] VITALS: BP 148/84; PULSE 75; RESP 18; TEMP 99.4; O2SAT 97
[2017-04-04] MEDS: HYDROmorphone HCL PF 1 MG/ML VIAL IV PRN ×5 (01:18→22:39)
[2017-04-04] MEDS: INSULIN ASPART SUPPLEMENTAL SCALE SQ SCH ×4 (05:39→20:47)
[2017-04-04 06:37] LABS: AUTOMATED NEUTROPHIL # 5.8 TH/MM3 (1.8-7.7); BASOPHIL # 0.1 TH/MM3 (0-0.2); BASOPHIL % 0.7 % (0.0-2.0); EOSINOPHIL # 0.2 TH/MM3 (0-0.4); EOSINOPHIL % 2.9 % (0.0-4.0); HEMATOCRIT 29.2 % (39.0-51.0); HEMO FLAGS DIFF FINAL; LYMPH % 18.9 % (9.0-44.0); LYMPHOCYTE # 1.5 TH/MM3 (1.0-4.8); MEAN CELL VOLUME 84.5 FL (80.0-100.0); MEAN CORPUSCULAR HEMOGLOBIN 26.2 PG (27.0-34.0); MONO % 7.8 % (0.0-8.0); NEUT % 69.7 % (16.0-70.0); PLATELET COUNT 429 TH/MM3 (150-450); RED BLOOD COUNT 3.46 MIL/MM3 (4.50-5.90); RED CELL DISTRIBUTION WIDTH 12.8 % (11.6-17.2); WHITE BLOOD COUNT 8.2 TH/MM3 (4.0-11.0)
[2017-04-04 06:45] LABS: CHLORIDE 105 MEQ/L (98-107); POTASSIUM 3.7 MEQ/L (3.5-5.1); SODIUM (NA) 141 MEQ/L (136-145)
[2017-04-04 06:49] LABS: ANION GAP 8 MEQ/L (5-15); BICARBONATE 28.1 MEQ/L (21.0-32.0)
[2017-04-04 07:06] LABS: ALKALINE PHOSPHATASE 94 U/L (45-117); ALT (GPT) 12 U/L (12-78); AST (GOT) 10 U/L (15-37); BLOOD UREA NITROGEN 14 MG/DL (7-18); GLOMERULAR FILTRATION RATE 144 ML/MIN (>89); TOTAL BILIRUBIN ADULT 0.3 MG/DL (0.2-1.0)
[2017-04-04] MEDS: RESP: ALBUTEROL 2.5 MG/IPRATROPIUM 0.5 MG NEB (SCH) NEB ×4 (08:00→19:10)
[2017-04-04 08:05] VITALS: BP 155/86; PULSE 75; RESP 18; TEMP 97.4; O2SAT 97
--- NOTE | 2017-04-04 08:19 | HHI.PR ---
Subjective History of Present Illness Patient still have hemoptysis consulted pulmonary have lung mass. CT Chest noted shows nodular infiltrate. . wound culture grow proteus and MRSA.. d/w LUCIUS Spann.. have 3 cm left adrenal mass check MRI of abdomen with contrast. d/ w Dr Wilks infectious disease need IV vancomycin and PO Cipro at discharge. going for needle biopsy for right lung nodule Review of Systems Constitutional Constitutional: Fatigue, Weakness Pulmonary Pulmonary Remarks HEMOPTYSIS. Musculoskeletal MS Remarks Left knee swelling and pain in knee brace. Integumentary Skin Remarks Right foot wound, Vitals/Results Intake & Output 04/03/17 04/03/17 04/04/17 15:00 23:00 07:00 Intake Total 850 ml 1000 ml Output Total 1250 ml 400 ml 1675 ml Balance -400 ml -400 ml -675 ml Intake Oral 850 ml 0 ml IV Total 1000 ml Output Urine Total 1250 ml 400 ml 1675 ml # Voids 5 # Bowel Movements 1 0 Vital Signs Vital Signs Date Time Temp Pulse Resp B/P Pulse Ox O2 Delivery O2 Flow Rate FiO2 04/04/17 08:05 97.4 75 18 155/86 97 04/04/17 01:15 99.4 75 18 148/84 97 04/03/17 22:36 18 04/03/17 20:10 69 04/03/17 20:00 97.6 78 18 138/89 96 04/03/17 19:17 18 04/03/17 16:00 97.2 81 20 104/68 98 CBC/BMP: 04/04/17 0601 04/04/17 0601 Lab Results Laboratory Tests Test 04/04/17 06:01 White Blood Count 8.2 TH/MM3 Red Blood Count 3.46 MIL/MM3 Hemoglobin 9.1 GM/DL Hematocrit 29.2 % Mean Corpuscular Volume 84.5 FL Mean Corpuscular Hemoglobin 26.2 PG Mean Corpuscular Hemoglobin 31.0 % Concent Red Cell Distribution Width 12.8 % Platelet Count 429 TH/MM3 Mean Platelet Volume 6.7 FL Neutrophils (%) (Auto) 69.7 % Lymphocytes (%) (Auto) 18.9 % Monocytes (%) (Auto) 7.8 % Eosinophils (%) (Auto) 2.9 % Basophils (%) (Auto) 0.7 % Neutrophils # (Auto) 5.8 TH/MM3 Lymphocytes # (Auto) 1.5 TH/MM3 Monocytes # (Auto) 0.6 TH/MM3 Eosinophils # (Auto) 0.2 TH/MM3 Basophils # (Auto) 0.1 TH/MM3 CBC Comment DIFF FINAL Differential Comment Sodium Level 141 MEQ/L Potassium Level 3.7 MEQ/L Chloride Level 105 MEQ/L Carbon Dioxide Level 28.1 MEQ/L Anion Gap 8 MEQ/L Blood Urea Nitrogen 14 MG/DL Creatinine 0.58 MG/DL Estimat Glomerular Filtration 144 ML/MIN Rate Random Glucose 121 MG/DL Calcium Level 8.8 MG/DL Total Bilirubin 0.3 MG/DL Aspartate Amino Transf 10 U/L (AST/SGOT) Alanine Aminotransferase 12 U/L (ALT/SGPT) Alkaline Phosphatase 94 U/L Total Protein 7.3 GM/DL Albumin 2.3 GM/DL Physical Exam General General Appearance: No Acute Distress, Comfortable Eyes Eye Exam: Pupils Equal, Pupils Reactive, Sclera White, Extraocular Movement Intact Throat Throat Exam: Oral Mucosa [place] & Moist, Oral Pharynx Normal Neck Neck Exam: Neck Supple, Trachea Midline Pulmonary Resp Exam: Clear Bilaterally, Breath Sounds Equal Cardiology CV Exam: Regular, Normal Sinus Rhythm Gastrointestinal/Abdomen GI Exam: Soft, Non-Tender, Bowel Sounds Present Musculoskeletal MS Remarks Swelling and tenderness of left knee. Right foot wound. Right foot DP and PT palpable right mid foot collapse, right foot with a plantar central wound 5 x 5 cm. There is no probing to bone. There is no tendon exposed. Fibrogranular tissue. Positive serous drainage. No malodor. The right second digit with an ulceration to the distal tip. Integumentary Skin Exam: Warm Skin Remarks Right foot wound. Right foot DP and PT palpable right mid foot collapse, right foot with a plantar central wound 5 x 5 cm. There is no probing to bone. There is no tendon exposed. Fibrogranular tissue. Positive serous drainage. No malodor. The right second digit with an ulceration to the distal tip. Extremeties Extremities Exam: No Edema Neurologic Neuro Exam: Alert, Awake, Oriented, Speech Clear, Moving All Extremities, No Focal Deficits Psychiatric Psych Exam: Appropriate Responses VTE Prophylaxis VTE Prophylaxis Meds: Lovenox PUD Prophylasis PUD Prophylaxis: Protonix Assessment/Plan Assessment/Plan ASSESSMENT/PLAN 1. This is a 57-year male who came to the ER diagnosed status post fall, got entangled and trip and fall. The patient has minor head injury, the CT of the brain does not show anything acute. 2. Neurologically the patient is stable. 3. Diabetic wound of the right foot. / Osteomylitis infectious disease input noted... wound culture grow proteus and MRSA.. . The patient is on vancomycin, Podiatry input noted. s/p bone scan.. negative for osteomylitis.. d/w Dr Wilks ID. have osteomylitis.. need IV vancomycin and PO Cipro at discharge. 4. Anemia. checked iron study, B12, folic acid level and fecal occult blood test...show low Iron and B12 deficiency on replacement. 5. Diabetes mellitus ADA diet. NovoLog low-dose sliding scale. Check blood sugars, and adjust, monitor blood sugar. 6. Swelling of the left knee status post fall. 9. Checked MRI of the left knee shows Quadriceps tendon rupture d/w orthopedic.. s/p surgery. 7. History of anxiety. Continue home medication Xanax 2 mg p.o. q. 8-hour p.r.n. anxiety. 8 .GI Prophylaxis .. Protonix 40 mg p.o. daily. 9. History of hypertension continue home medication. and on clonidine 0.1 mg p.o. q. 6-hour p.r.n. if BP above 160/90. 10. Arthritis. Continue home medication. 11. Deep venous thrombosis prophylaxis, Lovenox 40 mg subcutaneous daily. 12. Left knee swelling and pain MRI Done shows Quadriceps tendon rupture s/p surgery..Orthopedic input noted. 13. Hemoptysis pulmonary input noted have lung mass/ nodule ..CT Chest shows nodular infiltrate... going for needle biopsy for right lung nodule 14. 3 cm left adrenal mass check MRI of abdomen with contrast. We will manage the patient daily basis and make recommendations on a daily basis. Check CBC, CMP in the morning. Discussed Condition with: Patient Last Ybarra MD April 04, 2017 08:19
[2017-04-04] MEDS: FERROUS SULFATE 325 MG (65 MG ELEMENTAL IRON) TAB PO SCH ×2 (08:34→20:26)
[2017-04-04] MEDS: CYANOCOBALAMIN 1,000 MCG TAB PO SCH (08:35)
[2017-04-04] MEDS: FUROSEMIDE 20 MG TAB PO SCH ×2 (08:35→20:26)
[2017-04-04] MEDS: RAMIPRIL 2.5 MG CAP PO SCH ×2 (08:35→20:45)
[2017-04-04] MEDS: PANTOPRAZOLE SOD 40 MG DELAYED RELEASE TAB PO SCH (08:35)
--- NOTE | 2017-04-04 08:35 | PD.ORT.PN ---
Subjective Subjective Remarks Sitting bedside comfortably with knee immobilizer in place Objective Vitals Vital Signs Date Time Temp Pulse Resp B/P Pulse Ox O2 Delivery O2 Flow Rate FiO2 04/04/17 08:05 97.4 75 18 155/86 97 04/04/17 01:15 99.4 75 18 148/84 97 04/03/17 22:36 18 04/03/17 20:10 69 04/03/17 20:00 97.6 78 18 138/89 96 04/03/17 19:17 18 04/03/17 16:00 97.2 81 20 104/68 98 I/O 04/03/17 04/03/17 04/03/17 04/04/17 04/04/17 04/04/17 06:59 14:59 22:59 06:59 14:59 22:59 Intake Total 480 ml 850 ml 1000 ml Output Total 450 ml 1250 ml 400 ml 1675 ml Balance 30 ml -400 ml -400 ml -675 ml Intake Oral 480 ml 850 ml 0 ml IV Total 1000 ml Output Urine Total 450 ml 1250 ml 400 ml 1675 ml # Voids 5 # Bowel Movements 1 0 Result Diagram: 04/04/17 0601 04/04/17 0601 Imaging Last 72 hours Impressions Knee MRI 03/27/17 0000 Signed Impressions: Service Date/Time: Monday, March 27, 2017 14:51 - CONCLUSION: Complete rupture of the distal aspect of the quadriceps tendon with a large effusion and fluid extending into the prepatellar soft tissues. Collin Harding MD Tibia/Fibula X-Ray 03/26/17 0000 Signed Impressions: Service Date/Time: Sunday, March 26, 2017 07:17 - CONCLUSION: Soft tissue swelling without fracture. Dawood Donnelly MD Lower Extremity Ultrasound 03/26/17 0000 Signed Impressions: Service Date/Time: Sunday, March 26, 2017 08:10 - CONCLUSION: Normal examination. Collin Ramon MD Knee X-Ray 03/26/17 0000 Signed Impressions: Service Date/Time: Sunday, March 26, 2017 07:14 - CONCLUSION: 1. Mild osteoarthritis. 2. Soft tissue swelling without fracture. Dawood Donnelly MD Head CT 03/26/17 0000 Signed Impressions: Service Date/Time: Sunday, March 26, 2017 07:00 - CONCLUSION: No acute intracranial abnormality is identified. Collin Galarza MD Foot X-Ray 03/26/17 0000 Signed Impressions: Service Date/Time: Sunday, March 26, 2017 07:21 - CONCLUSION: 1. Erosive arthritic changes of the first metatarsophalangeal joint with diffuse soft tissue swelling. 2. Old fracture distal second metatarsal. 3. Amputation third digit. Dawood Donnelly MD Foot MRI 03/26/17 0000 Signed Impressions: Service Date/Time: Sunday, March 26, 2017 15:31 - CONCLUSION: 1. Broad and deep ulceration of the medial arch area and with MRI findings suggesting superficial osteomyelitis of the underlying distal medial cuneiform and proximal first metatarsal base. No deep or extensive osseous signal changes are demonstrated. 2. There is osteoarthritis of the first tarsometatarsal joint but mainly the dorsal portion of the. Chronic appearing arch collapse is noted. 1. Collin Wright MD Objective Remarks Bilateral upper extremities reveal no pain with shoulder elbow wrist or fingers. He does have some atrophy from previous injuries he has intact sensation in all his fingers and able to fully extend and flex his fingers. Right lower extremity reveals no pain with hip or knee range of motion. He is dressings over his foot which are clean and dry. Left lower extremity: Clean dry dressings intact with knee immobilizer placed. Mild swelling. Distally intact capillary refills slightly diminished pulses and no sensation from the ankle distally Assessment & Plan Assessment and Plan Left quadriceps tendon repair POD 5 Daily dressing changes with Xeroform, 4 x 4's and Migue wrap Physical [id number] pound weightbearing on the left lower extremity. CKS at all times. No flexion, quad sets or active leglifts Case management for discharge planning to rehabilitation. He is a high risk for fall due to quadriceps tendon repair and also chronic wound of right foot and diabetic neuropathy a fall could reverse and cause failure to quadriceps tendon repair Follow-up Dr. Conway or OL[facility] in 2 weeks for left quadricep tendon repair Jose Sherman Jr. April 04, 2017 08:35
[2017-04-04] MEDS: DILTIAZEM-CD 240 MG CAP ER PO SCH (08:36)
[2017-04-04] MEDS: SODIUM CHLORIDE 0.9% FLUSH 5 ML FLUSH IVF SCH ×2 (08:36→20:47)
[2017-04-04] MEDS ORDERED: GADODIAMIDE PF 287 MG/ML 20 ML VIAL (for RAD MRI) IV ONE (10:53)
--- NOTE | 2017-04-04 11:28 | RADHPO ---
EXAM DATE/TIME: 04/04/2017 10:11 [facility] COMPARISON: CT THORAX W/O CONTRAST, April 02, 2017, 20:50. INDICATIONS : Adrenal mass. CONTRAST: 19 cc Omniscan (gadodiamide) IV MEDICAL HISTORY : Hypertension. Diabetes mellitus type 2. SURGICAL HISTORY : Left leg/Achilles tendon. ENCOUNTER: Subsequent ACUITY: 1 week PAIN SCORE: 0/10 LOCATION: Abdomen TECHNIQUE: Multiplanar, multisequence magnetic resonance imaging of the abdomen was performed without and with i ntravenous contrast. FINDINGS The patient has a left adrenal mass, non-specific by CT. The MR images are degraded by motion. Mass does show intense contrast enhancement. There is no fatty component with this. A mass does not represent a fatty adrenal tumor. Considerations would include both functioning and non-fun ctioning adenomas, primary neoplasm of the adrenal and metastatic disease. Correlation with biochemi ariela studies is suggested prior to any attempt at resection or biopsy. The liver, spleen and kidneys are unremarkable. Conclusion: Left adrenal mass as described above. Followup is suggested. Lex Solis MD FACR on April 04, 2017 at 11:07 Board Certified Radiologist. This report was verified electronically.
[2017-04-04] MEDS: VANCOMYCIN INJ 1,750 MG in SODIUM CHLORID 0.9% 500 ML INJ 500 ML IV SCH ×2 (11:29→22:39)
[2017-04-04] MEDS: ENOXAPARIN SODIUM 40 MG/0.4 ML SYRINGE SQ SCH (11:29)
[2017-04-04 12:13] VITALS: BP 150/100; PULSE 87; RESP 18; TEMP 97.2; O2SAT 97
[2017-04-04 16:39] VITALS: BP 144/57; PULSE 117; RESP 18; TEMP 100.1; O2SAT 95
--- NOTE | 2017-04-04 17:46 | HHI.PR ---
Subjective Remarks No hemoptysis. No fever. CT chest shows a Nodular infiltrate. Objective Vital Signs Date Time Temp Pulse Resp B/P Pulse Ox O2 Delivery O2 Flow Rate FiO2 04/04/17 16:39 100.1 117 18 144/57 95 04/04/17 12:13 97.2 87 18 150/100 97 04/04/17 08:05 97.4 75 18 155/86 97 04/04/17 01:15 99.4 75 18 148/84 97 04/03/17 22:36 18 04/03/17 20:10 69 04/03/17 20:00 97.6 78 18 138/89 96 04/03/17 19:17 18 I/O 04/03/17 04/03/17 04/03/17 04/04/17 04/04/17 04/04/17 07:00 15:00 23:00 07:00 15:00 23:00 Intake Total 480 ml 850 ml 1000 ml 1200 ml Output Total 450 ml 1250 ml 400 ml 1675 ml Balance 30 ml -400 ml -400 ml -675 ml 1200 ml Intake Oral 480 ml 850 ml 0 ml 1200 ml IV Total 1000 ml Output Urine Total 450 ml 1250 ml 400 ml 1675 ml # Voids 5 5 # Bowel Movements 1 0 1 Result Diagram: 04/04/17 0604/04/17 06 Objective Remarks GENERAL: This is a middle-aged white male who is pale and in no acute distress. HEENT: Head normocephalic. Pupils are reactive. Tongue moist. Throat clear. He has no inflammation. NECK: No bruits, no thyroid enlargement or lymphadenopathy. CHEST: Equal movements with distant breath sounds. Occasional crackles heard over the right lung sales . HEART SOUNDS: Regular S1 and S2. No murmur. No S3. ABDOMEN: Soft, benign. No masses, no organomegaly or tenderness. Bowel sounds are active. EXTREMITIES: Edema 1+. Deformity of the right foot with dressing over ulcerations of the foot and peripheral pulses are not felt. 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 The left foot is unremarkable. There is ulceration of the right foot as well in the plantar area. NEUROLOGIC: 1+ reflexes. No gross motor deficits. Assessment and Plan Assessment and Plan IMPRESSION 1. Hemoptysis with right lung infiltrate, chronic. 2. COPD. 3. History of quadriceps tendon repair due to rupture. 4. Chronic right foot ulceration. 5. Diabetes mellitus insulin dependent. 6. Right lung nodules. Plan : 1. Wean O2 to RA. 2. Continue Nebs qid , duoneb 3. Advised to have a Needle Biopsy of the right lung nodule. 4. Will get PET CT as OP. 5. Check stools for C Diff Deuce Sylvester MD April 04, 2017 17:46
[2017-04-04] MEDS ORDERED: APIX5TAB PO (18:54)
[2017-04-04 20:00] VITALS: BP 120/70; PULSE 92; RESP 20; TEMP 97.9; O2SAT 100
[2017-04-04] MEDS: CIPROFLOXACIN/DEXT 400 MG/200 ML IV SCH (20:28)
[2017-04-04] MEDS: INSULIN DETEMIR 100 UNITS/ML VIAL SQ SCH (20:46)
[2017-04-05] VITALS (7 sets, daily range): BP systolic 116–167; BP diastolic 62–96; PULSE 75–90; RESP 16–24; TEMP 97.2–98.6; O2SAT 94–98
[2017-04-05] MEDS: HYDROmorphone HCL PF 1 MG/ML VIAL IV PRN ×3 (04:25→23:03)
[2017-04-05] MEDS: INSULIN ASPART SUPPLEMENTAL SCALE SQ SCH ×5 (07:00→21:15)
[2017-04-05] MEDS: RESP: ALBUTEROL 2.5 MG/IPRATROPIUM 0.5 MG NEB (SCH) NEB ×2 (07:44→11:12)
[2017-04-05] MEDS: DILTIAZEM-CD 240 MG CAP ER PO SCH (08:02)
--- NOTE | 2017-04-05 08:02 | HHI.PR ---
Subjective History of Present Illness Patient hemoptysis.. resolved pulmonary input noted have lung mass. CT Chest noted shows nodular infiltrate. . wound culture grow proteus and MRSA.. d/w LUCIUS Spann.. have 3 cm left adrenal mass check MRI of abdomen with contrast. Per infectious disease need IV vancomycin and PO Cipro at discharge. going for needle biopsy for right lung nodule today. LUCIUS Spann found multiple medicine in the patient room which he was using by himself. Review of Systems Constitutional Constitutional: Fatigue, Weakness Pulmonary Pulmonary Remarks HEMOPTYSIS. Musculoskeletal MS Remarks Left knee swelling and pain in knee brace. Integumentary Skin Remarks Right foot wound, Vitals/Results Intake & Output 04/04/17 04/04/17 04/05/17 15:00 23:00 07:00 Intake Total 1200 ml Output Total 1750 ml Balance 1200 ml -1750 ml Intake Oral 1200 ml Output Urine Total 1750 ml # Voids 7 # Bowel Movements 1 0 Vital Signs Vital Signs Date Time Temp Pulse Resp B/P Pulse Ox O2 Delivery O2 Flow Rate FiO2 04/05/17 04:55 16 04/05/17 04:00 98.0 75 20 141/85 96 04/05/17 01:43 12 04/05/17 00:00 97.2 79 20 120/70 94 04/04/17 20:00 97.9 92 20 120/70 100 04/04/17 16:39 100.1 117 18 144/57 95 04/04/17 12:13 97.2 87 18 150/100 97 04/04/17 08:05 97.4 75 18 155/86 97 CBC/BMP: 04/04/17 0601 04/04/17 0601 Physical Exam General General Appearance: No Acute Distress, Comfortable Eyes Eye Exam: Pupils Equal, Pupils Reactive, Sclera White, Extraocular Movement Intact Throat Throat Exam: Oral Mucosa [place] & Moist, Oral Pharynx Normal Neck Neck Exam: Neck Supple, Trachea Midline Pulmonary Resp Exam: Clear Bilaterally, Breath Sounds Equal Cardiology CV Exam: Regular, Normal Sinus Rhythm Gastrointestinal/Abdomen GI Exam: Soft, Non-Tender, Bowel Sounds Present Musculoskeletal MS Remarks Swelling and tenderness of left knee. Right foot wound. Right foot DP and PT palpable right mid foot collapse, right foot with a plantar central wound 5 x 5 cm. There is no probing to bone. There is no tendon exposed. Fibrogranular tissue. Positive serous drainage. No malodor. The right second digit with an ulceration to the distal tip. Integumentary Skin Exam: Warm Skin Remarks Right foot wound. Right foot DP and PT palpable right mid foot collapse, right foot with a plantar central wound 5 x 5 cm. There is no probing to bone. There is no tendon exposed. Fibrogranular tissue. Positive serous drainage. No malodor. The right second digit with an ulceration to the distal tip. Extremeties Extremities Exam: No Edema Neurologic Neuro Exam: Alert, Awake, Oriented, Speech Clear, Moving All Extremities, No Focal Deficits Psychiatric Psych Exam: Appropriate Responses VTE Prophylaxis VTE Prophylaxis Meds: Lovenox PUD Prophylasis PUD Prophylaxis: Protonix Assessment/Plan Assessment/Plan ASSESSMENT/PLAN 1. This is a 57-year male who came to the ER diagnosed status post fall, got entangled and trip and fall. The patient has minor head injury, the CT of the brain does not show anything acute. 2. Neurologically the patient is stable. 3. Diabetic wound of the right foot. / Osteomylitis infectious disease input noted... wound culture grow proteus and MRSA.. . The patient is on vancomycin, Podiatry input noted. s/p bone scan.. negative for osteomylitis.. Per ID. patient have osteomylitis.. need IV vancomycin and PO Cipro at discharge. 4. Anemia. checked iron study, B12, folic acid level and fecal occult blood test...show low Iron and B12 deficiency on replacement. 5. Diabetes mellitus ADA diet. NovoLog low-dose sliding scale. Check blood sugars, and adjust, monitor blood sugar. high blood sugar increased Levemir. 6. Swelling of the left knee status post fall. 9. Checked MRI of the left knee shows Quadriceps tendon rupture d/w orthopedic.. s/p surgery. 7. History of anxiety. Continue home medication Xanax 2 mg p.o. q. 8-hour p.r.n. anxiety. 8 .GI Prophylaxis .. Protonix 40 mg p.o. daily. 9. History of hypertension continue home medication. and on clonidine 0.1 mg p.o. q. 6-hour p.r.n. if BP above 160/90. 10. Arthritis. Continue home medication. 11. Deep venous thrombosis prophylaxis, Lovenox 40 mg subcutaneous daily. 12. Left knee swelling and pain MRI Done shows Quadriceps tendon rupture s/p surgery..Orthopedic input noted. 13. Hemoptysis pulmonary input noted have lung mass/ nodule ..CT Chest shows nodular infiltrate... going for needle biopsy for right lung nodule today. 14. 3 cm left adrenal mass checked MRI of abdomen with contrast. ..noted We will manage the patient daily basis and make recommendations on a daily basis. Check CBC, CMP in the morning. Discussed Condition with: Patient Last Ybarra MD April 05, 2017 08:02
[2017-04-05] MEDS: FUROSEMIDE 20 MG TAB PO SCH ×2 (08:03→21:02)
[2017-04-05] MEDS: CYANOCOBALAMIN 1,000 MCG TAB PO SCH (08:03)
[2017-04-05] MEDS: FERROUS SULFATE 325 MG (65 MG ELEMENTAL IRON) TAB PO SCH ×2 (08:03→21:01)
[2017-04-05] MEDS: PANTOPRAZOLE SOD 40 MG DELAYED RELEASE TAB PO SCH (08:03)
[2017-04-05] MEDS: CIPROFLOXACIN/DEXT 400 MG/200 ML IV SCH ×2 (08:04→21:10)
[2017-04-05] MEDS: POLYETHYLENE GLYCOL 17 GM PKG PO SCH ×2 (08:47→22:58)
[2017-04-05] MEDS: SODIUM CHLORIDE 0.9% FLUSH 5 ML FLUSH IVF SCH ×2 (08:47→21:16)
[2017-04-05] MEDS: RAMIPRIL 2.5 MG CAP PO SCH ×2 (09:17→21:21)
[2017-04-05] MEDS: ENOXAPARIN SODIUM 40 MG/0.4 ML SYRINGE SQ SCH (09:18)
[2017-04-05] MEDS: VANCOMYCIN INJ 1,750 MG in SODIUM CHLORID 0.9% 500 ML INJ 500 ML IV SCH ×2 (09:19→21:17)
--- NOTE | 2017-04-05 17:27 | RADRPT ---
EXAM DATE/TIME: 04/05/2017 00:00 [facility] COMPARISON: CT THORAX W/O CONTRAST, April 02, 2017, 20:50. INDICATIONS : Nodular densities right lung. Negative bronchial washings. IMAGING STUDIES: CT scan from 04-02-2017 was reviewed. This shows a patchy nodular infiltrate in the right upper lobe. A ppearance is most likely infectious but should be followed to completion. Recent bronchoscopy with br onchial washings showed no malignancy or infection. CT-guided biopsy has been requested from the larg est lesion for further evaluation. The largest lesion measures approximately 1.5 cm in diameter and is located below the scapula. As suc h, biopsy would be difficult. May be able to facilitate procedure with Veran guidance. PLAN: CT-guided biopsy with Veran guidance. CONCLUSION: Nonspecific nodular right lung infiltrate. Srinivas Casillas MD on April 05, 2017 at 17:21 Board Certified Radiologist. This report was verified electronically.
--- NOTE | 2017-04-05 18:42 | HHI.PR ---
Subjective Remarks Here for CT guided biopsy of lung nodule. No fever. CT chest shows a Nodular infiltrate. No SOB Objective Vital Signs Date Time Temp Pulse Resp B/P Pulse Ox O2 Delivery O2 Flow Rate FiO2 04/05/17 16:00 97.3 81 20 116/62 98 04/05/17 14:25 97.8 78 24 130/73 98 04/05/17 11:49 98.6 90 16 130/78 97 04/05/17 08:00 98.6 86 16 167/96 98 04/05/17 04:55 16 04/05/17 04:00 98.0 75 20 141/85 96 04/05/17 01:43 12 04/05/17 00:00 97.2 79 20 120/70 94 04/04/17 20:00 97.9 92 20 120/70 100 I/O 04/04/17 04/04/17 04/04/17 04/05/17 04/05/17 04/05/17 07:00 15:00 23:00 07:00 15:00 23:00 Intake Total 1000 ml 1200 ml 1100 ml Output Total 1675 ml 1750 ml 1000 ml Balance -675 ml 1200 ml -1750 ml 100 ml Intake Oral 0 ml 1200 ml 1100 ml IV Total 1000 ml Output Urine Total 1675 ml 1750 ml 1000 ml # Voids 5 7 1 # Bowel Movements 0 1 0 1 Result Diagram: 04/04/17 0604/04/17 06 Objective Remarks GENERAL: This is a middle-aged white male who is pale and in no acute distress. HEENT: Head normocephalic. Pupils are reactive. Tongue moist. Throat clear. He has no inflammation. NECK: No bruits, no thyroid enlargement or lymphadenopathy. CHEST: Equal movements with distant breath sounds. Occasional wheeze heard over the right lung sales . HEART SOUNDS: Regular S1 and S2. No murmur. No S3. ABDOMEN: Soft, benign. No masses, no organomegaly or tenderness. Bowel sounds are active. EXTREMITIES: Edema 1+. Deformity of the right foot with dressing over ulcerations of the foot and peripheral pulses are not felt. 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 The left foot is unremarkable. NEUROLOGIC: 1+ reflexes. No gross motor deficits. Assessment and Plan Assessment and Plan IMPRESSION 1. Hemoptysis with right lung infiltrate, chronic. 2. COPD. 3. History of quadriceps tendon repair due to rupture. 4. Chronic right foot ulceration. 5. Diabetes mellitus insulin dependent. 6. Right lung nodules. Plan : 1. Wean O2 to RA. 2. D/C Nebs and use Spiriva , 1 cap daily 3. Advised to have a Needle Biopsy of the right lung nodule. 4. Will get PET CT as OP. 5. CBC ,Coags in am Deuce Sylvester MD April 05, 2017 18:42
[2017-04-05] MEDS: INSULIN DETEMIR 100 UNITS/ML VIAL SQ SCH (21:13)
[2017-04-06] VITALS: BP 121/58; PULSE 78; RESP 18; TEMP 98.1; O2SAT 97
[2017-04-06 04:00] VITALS: BP 148/66; PULSE 62; RESP 18; TEMP 97.5; O2SAT 96
[2017-04-06] MEDS: INSULIN ASPART SUPPLEMENTAL SCALE SQ SCH ×4 (06:16→21:16)
[2017-04-06] MEDS: HYDROmorphone HCL PF 1 MG/ML VIAL IV PRN ×3 (06:57→20:53)
--- NOTE | 2017-04-06 07:02 | PD.ORT.PN ---
Subjective Subjective Remarks Sitting bedside comfortably with knee immobilizer in place Objective Vitals Vital Signs Date Time Temp Pulse Resp B/P Pulse Ox O2 Delivery O2 Flow Rate FiO2 04/06/17 04:00 97.5 62 18 148/66 96 04/06/17 00:00 98.1 78 18 121/58 97 04/05/17 20:00 98.3 82 16 136/63 97 04/05/17 16:00 97.3 81 20 116/62 98 04/05/17 14:25 97.8 78 24 130/73 98 04/05/17 11:49 98.6 90 16 130/78 97 04/05/17 08:00 98.6 86 16 167/96 98 I/O 04/05/17 04/05/17 04/05/17 04/06/17 04/06/17 04/06/17 07:00 15:00 23:00 07:00 15:00 23:00 Intake Total 1100 ml 480 ml 240 ml Output Total 1750 ml 1000 ml 300 ml 400 ml Balance -1750 ml 100 ml 180 ml -160 ml Intake Oral 1100 ml 480 ml 240 ml Output Urine Total 1750 ml 1000 ml 300 ml 400 ml # Voids 1 # Bowel Movements 0 1 0 0 Result Diagram: 04/04/17 0601 04/04/17 0601 Imaging Last 72 hours Impressions Knee MRI 03/27/17 0000 Signed Impressions: Service Date/Time: Monday, March 27, 2017 14:51 - CONCLUSION: Complete rupture of the distal aspect of the quadriceps tendon with a large effusion and fluid extending into the prepatellar soft tissues. Collin Harding MD Tibia/Fibula X-Ray 03/26/17 0000 Signed Impressions: Service Date/Time: Sunday, March 26, 2017 07:17 - CONCLUSION: Soft tissue swelling without fracture. Dawood Donnelly MD Lower Extremity Ultrasound 03/26/17 0000 Signed Impressions: Service Date/Time: Sunday, March 26, 2017 08:10 - CONCLUSION: Normal examination. Collin Ramon MD Knee X-Ray 03/26/17 0000 Signed Impressions: Service Date/Time: Sunday, March 26, 2017 07:14 - CONCLUSION: 1. Mild osteoarthritis. 2. Soft tissue swelling without fracture. Dawood Donnelly MD Head CT 03/26/17 0000 Signed Impressions: Service Date/Time: Sunday, March 26, 2017 07:00 - CONCLUSION: No acute intracranial abnormality is identified. Collin Galarza MD Foot X-Ray 03/26/17 Signed Impressions: Service Date/Time: Sunday, March 26, 2017 07:21 - CONCLUSION: 1. Erosive arthritic changes of the first metatarsophalangeal joint with diffuse soft tissue swelling. 2. Old fracture distal second metatarsal. 3. Amputation third digit. Dawood Donnelly MD Foot MRI 03/26/17 Signed Impressions: Service Date/Time: Sunday, March 26, 2017 15:31 - CONCLUSION: 1. Broad and deep ulceration of the medial arch area and with MRI findings suggesting superficial osteomyelitis of the underlying distal medial cuneiform and proximal first metatarsal base. No deep or extensive osseous signal changes are demonstrated. 2. There is osteoarthritis of the first tarsometatarsal joint but mainly the dorsal portion of the. Chronic appearing arch collapse is noted. 1. Collin Wright MD Objective Remarks Bilateral upper extremities reveal no pain with shoulder elbow wrist or fingers. He does have some atrophy from previous injuries he has intact sensation in all his fingers and able to fully extend and flex his fingers. Right lower extremity reveals no pain with hip or knee range of motion. He is dressings over his foot which are clean and dry. Left lower extremity: Clean dry dressings intact with knee immobilizer placed. Mild swelling. Distally intact capillary refills slightly diminished pulses and no sensation from the ankle distally Assessment & Plan Assessment and Plan Left quadriceps tendon repair POD 7 Daily dressing changes with Xeroform, 4 x 4's and Migue wrap -no CLING Physical [id number] pound weightbearing on the left lower extremity. CKS at all times. No flexion, quad sets or active leglifts Case management for discharge planning to rehabilitation. He is a high risk for fall due to quadriceps tendon repair and also chronic wound of right foot and diabetic neuropathy a fall could reverse and cause failure to quadriceps tendon repair Follow-up Dr. Conway or OLIVER in 10 days for left quadricep tendon repair Jose Sherman Jr. April 06, 2017 07:01
[2017-04-06 08:00] VITALS: BP 151/75; PULSE 80; RESP 22; TEMP 98.3; O2SAT 98
[2017-04-06 08:23] LABS: AUTOMATED NEUTROPHIL # 6.8 TH/MM3 (1.8-7.7); BASOPHIL # 0.1 TH/MM3 (0-0.2); BASOPHIL % 0.8 % (0.0-2.0); EOSINOPHIL # 0.1 TH/MM3 (0-0.4); EOSINOPHIL % 1.5 % (0.0-4.0); HEMATOCRIT 27.8 % (39.0-51.0); HEMO FLAGS DIFF FINAL; LYMPH % 13.9 % (9.0-44.0); LYMPHOCYTE # 1.2 TH/MM3 (1.0-4.8); MEAN CELL VOLUME 82.7 FL (80.0-100.0); MEAN CORPUSCULAR HEMOGLOBIN 27.6 PG (27.0-34.0); MEAN CORPUSCULAR HGB CONC 33.4 % (32.0-36.0); MONO % 8.2 % (0.0-8.0); NEUT % 75.6 % (16.0-70.0); PLATELET COUNT 319 TH/MM3 (150-450); RED BLOOD COUNT 3.36 MIL/MM3 (4.50-5.90); RED CELL DISTRIBUTION WIDTH 13.7 % (11.6-17.2)
--- NOTE | 2017-04-06 08:33 | HHI.PR ---
Subjective History of Present Illness Patient hemoptysis.. resolved pulmonary input noted have lung mass. CT Chest noted shows nodular infiltrate. . wound culture grow proteus and MRSA.. d/w RN . have 3 cm left adrenal mass check MRI of abdomen with contrast... noted. Per infectious disease need IV vancomycin and PO Cipro at discharge. going for needle biopsy for right lung nodule today. Review of Systems Constitutional Constitutional: Fatigue, Weakness Pulmonary Pulmonary Remarks HEMOPTYSIS. Musculoskeletal MS Remarks Left knee swelling and pain in knee brace. Integumentary Skin Remarks Right foot wound, Vitals/Results Intake & Output 04/05/17 04/05/17 04/06/17 15:00 23:00 07:00 Intake Total 1100 ml 480 ml 240 ml Output Total 1000 ml 300 ml 400 ml Balance 100 ml 180 ml -160 ml Intake Oral 1100 ml 480 ml 240 ml Output Urine Total 1000 ml 300 ml 400 ml # Voids 1 # Bowel Movements 1 0 0 Vital Signs Vital Signs Date Time Temp Pulse Resp B/P Pulse Ox O2 Delivery O2 Flow Rate FiO2 04/06/17 08:00 98.3 80 22 151/75 98 04/06/17 04:00 97.5 62 18 148/66 96 04/06/17 00:00 98.1 78 18 121/58 97 04/05/17 20:00 98.3 82 16 136/63 97 04/05/17 16:00 97.3 81 20 116/62 98 04/05/17 14:25 97.8 78 24 130/73 98 04/05/17 11:49 98.6 90 16 130/78 97 CBC/BMP: 04/06/17 0700 04/04/17 0601 Lab Results Laboratory Tests Test 04/06/17 07:00 White Blood Count 9.0 TH/MM3 Red Blood Count 3.36 MIL/MM3 Hemoglobin 9.3 GM/DL Hematocrit 27.8 % Mean Corpuscular Volume 82.7 FL Mean Corpuscular Hemoglobin 27.6 PG Mean Corpuscular Hemoglobin 33.4 % Concent Red Cell Distribution Width 13.7 % Platelet Count 319 TH/MM3 Mean Platelet Volume 6.9 FL Neutrophils (%) (Auto) 75.6 % Lymphocytes (%) (Auto) 13.9 % Monocytes (%) (Auto) 8.2 % Eosinophils (%) (Auto) 1.5 % Basophils (%) (Auto) 0.8 % Neutrophils # (Auto) 6.8 TH/MM3 Lymphocytes # (Auto) 1.2 TH/MM3 Monocytes # (Auto) 0.7 TH/MM3 Eosinophils # (Auto) 0.1 TH/MM3 Basophils # (Auto) 0.1 TH/MM3 CBC Comment DIFF FINAL Differential Comment Physical Exam General General Appearance: No Acute Distress, Comfortable Eyes Eye Exam: Pupils Equal, Pupils Reactive, Sclera White, Extraocular Movement Intact Throat Throat Exam: Oral Mucosa [place] & Moist, Oral Pharynx Normal Neck Neck Exam: Neck Supple, Trachea Midline Pulmonary Resp Exam: Clear Bilaterally, Breath Sounds Equal Cardiology CV Exam: Regular, Normal Sinus Rhythm Gastrointestinal/Abdomen GI Exam: Soft, Non-Tender, Bowel Sounds Present Musculoskeletal MS Remarks Swelling and tenderness of left knee. Right foot wound. Right foot DP and PT palpable right mid foot collapse, right foot with a plantar central wound 5 x 5 cm. There is no probing to bone. There is no tendon exposed. Fibrogranular tissue. Positive serous drainage. No malodor. The right second digit with an ulceration to the distal tip. Integumentary Skin Exam: Warm Skin Remarks Right foot wound. Right foot DP and PT palpable right mid foot collapse, right foot with a plantar central wound 5 x 5 cm. There is no probing to bone. There is no tendon exposed. Fibrogranular tissue. Positive serous drainage. No malodor. The right second digit with an ulceration to the distal tip. Extremeties Extremities Exam: No Edema Neurologic Neuro Exam: Alert, Awake, Oriented, Speech Clear, Moving All Extremities, No Focal Deficits Psychiatric Psych Exam: Appropriate Responses VTE Prophylaxis VTE Prophylaxis Meds: Lovenox PUD Prophylasis PUD Prophylaxis: Protonix Assessment/Plan Assessment/Plan ASSESSMENT/PLAN 1. This is a 57-year male who came to the ER diagnosed status post fall, got entangled and trip and fall. The patient has minor head injury, the CT of the brain does not show anything acute. 2. Neurologically the patient is stable. 3. Diabetic wound of the right foot. / Osteomylitis infectious disease input noted... wound culture grow proteus and MRSA.. . The patient is on vancomycin, Podiatry input noted. s/p bone scan.. negative for osteomylitis.. Per ID. patient have osteomylitis.. need IV vancomycin and PO Cipro at discharge. 4. Anemia. checked iron study, B12, folic acid level and fecal occult blood test...show low Iron and B12 deficiency on replacement. 5. Diabetes mellitus ADA diet. NovoLog low-dose sliding scale. Check blood sugars, and adjust, monitor blood sugar. high blood sugar increased Levemir. 6. Swelling of the left knee status post fall. 9. Checked MRI of the left knee shows Quadriceps tendon rupture d/w orthopedic.. s/p surgery. 7. History of anxiety. Continue home medication Xanax 2 mg p.o. q. 8-hour p.r.n. anxiety. 8 .GI Prophylaxis .. Protonix 40 mg p.o. daily. 9. History of hypertension continue home medication. and on clonidine 0.1 mg p.o. q. 6-hour p.r.n. if BP above 160/90. 10. Arthritis. Continue home medication. 11. Deep venous thrombosis prophylaxis, Lovenox 40 mg subcutaneous daily. 12. Left knee swelling and pain MRI Done shows Quadriceps tendon rupture s/p surgery..Orthopedic input noted. 13. Hemoptysis pulmonary input noted have lung mass/ nodule ..CT Chest shows nodular infiltrate... going for needle biopsy for right lung nodule today. 14. 3 cm left adrenal mass checked MRI of abdomen with contrast. ..noted We will manage the patient daily basis and make recommendations on a daily basis. Check CBC, CMP in the morning. Discussed Condition with: Patient Last Ybarra MD April 06, 2017 08:33
[2017-04-06 08:54] LABS: ALKALINE PHOSPHATASE 107 U/L (45-117); ALT (GPT) 13 U/L (12-78); ANION GAP 8 MEQ/L (5-15); AST (GOT) 12 U/L (15-37); BICARBONATE 27.5 MEQ/L (21.0-32.0); BLOOD UREA NITROGEN 18 MG/DL (7-18); CHLORIDE 102 MEQ/L (98-107); GLOMERULAR FILTRATION RATE 124 ML/MIN (>89); POTASSIUM 3.6 MEQ/L (3.5-5.1); SODIUM (NA) 137 MEQ/L (136-145); TOTAL BILIRUBIN ADULT 0.3 MG/DL (0.2-1.0)
[2017-04-06] MEDS: DILTIAZEM-CD 240 MG CAP ER PO SCH (08:59)
[2017-04-06] MEDS: FUROSEMIDE 20 MG TAB PO SCH ×2 (08:59→20:52)
[2017-04-06] MEDS: PANTOPRAZOLE SOD 40 MG DELAYED RELEASE TAB PO SCH (08:59)
[2017-04-06] MEDS: FERROUS SULFATE 325 MG (65 MG ELEMENTAL IRON) TAB PO SCH ×2 (08:59→20:52)
[2017-04-06] MEDS: CYANOCOBALAMIN 1,000 MCG TAB PO SCH (08:59)
[2017-04-06] MEDS: POLYETHYLENE GLYCOL 17 GM PKG PO SCH (09:00)
[2017-04-06] MEDS: CIPROFLOXACIN/DEXT 400 MG/200 ML IV SCH ×2 (09:00→20:56)
[2017-04-06] MEDS: SODIUM CHLORIDE 0.9% FLUSH 5 ML FLUSH IVF SCH ×2 (09:09→21:06)
[2017-04-06] MEDS: RAMIPRIL 2.5 MG CAP PO SCH ×2 (09:35→20:52)
[2017-04-06] MEDS: ENOXAPARIN SODIUM 40 MG/0.4 ML SYRINGE SQ SCH (09:36)
[2017-04-06] MEDS: TIOTROPIUM BROMIDE 18 MCG INH INH SCH (09:36)
[2017-04-06 12:00] VITALS: BP 127/69; PULSE 86; RESP 22; TEMP 98.3; O2SAT 97
[2017-04-06] MEDS: VANCOMYCIN INJ 1,750 MG in SODIUM CHLORID 0.9% 500 ML INJ 500 ML IV SCH (12:52)
--- NOTE | 2017-04-06 14:25 | HHI.IDPN ---
Subjective Subjective Remarks progress noted Pt now undergoing pederson for a lung mass He also had a L quad tendon repair He is tolerating abx ok Antibiotics vancomycin cipro Allergies: Coded Allergies: *MDRO Multi-Drug Resistant Organism (Verified Adverse Reaction, Unknown, MRSA, 04/02/17) MRSA (foot wound) - 02/12/15, 11/12/16, 03/29/17; (toe) - 03/2016 Objective . Vital Signs Date Time Temp Pulse Resp B/P Pulse Ox O2 Delivery O2 Flow Rate FiO2 04/06/17 08:00 98.3 80 22 151/75 98 04/06/17 04:00 97.5 62 18 148/66 96 04/06/17 00:00 98.1 78 18 121/58 97 04/05/17 20:00 98.3 82 16 136/63 97 04/05/17 16:00 97.3 81 20 116/62 98 04/05/17 14:25 97.8 78 24 130/73 98 04/05/17 04/05/17 04/06/17 15:00 23:00 07:00 Intake Total 1100 ml 480 ml 240 ml Output Total 1000 ml 300 ml 400 ml Balance 100 ml 180 ml -160 ml Intake Oral 1100 ml 480 ml 240 ml Output Urine Total 1000 ml 300 ml 400 ml # Voids 1 # Bowel Movements 1 0 0 . Laboratory Tests Test 04/06/17 07:00 White Blood Count 9.0 TH/MM3 Red Blood Count 3.36 MIL/MM3 Hemoglobin 9.3 GM/DL Hematocrit 27.8 % Mean Corpuscular Volume 82.7 FL Mean Corpuscular Hemoglobin 27.6 PG Mean Corpuscular Hemoglobin 33.4 % Concent Red Cell Distribution Width 13.7 % Platelet Count 319 TH/MM3 Mean Platelet Volume 6.9 FL Neutrophils (%) (Auto) 75.6 % Lymphocytes (%) (Auto) 13.9 % Monocytes (%) (Auto) 8.2 % Eosinophils (%) (Auto) 1.5 % Basophils (%) (Auto) 0.8 % Neutrophils # (Auto) 6.8 TH/MM3 Lymphocytes # (Auto) 1.2 TH/MM3 Monocytes # (Auto) 0.7 TH/MM3 Eosinophils # (Auto) 0.1 TH/MM3 Basophils # (Auto) 0.1 TH/MM3 CBC Comment DIFF FINAL Differential Comment Laboratory Tests Test 04/06/17 07:00 Sodium Level 137 MEQ/L Potassium Level 3.6 MEQ/L Chloride Level 102 MEQ/L Carbon Dioxide Level 27.5 MEQ/L Anion Gap 8 MEQ/L Blood Urea Nitrogen 18 MG/DL Creatinine 0.66 MG/DL Estimat Glomerular Filtration 124 ML/MIN Rate Random Glucose 143 MG/DL Calcium Level 8.5 MG/DL Total Bilirubin 0.3 MG/DL Aspartate Amino Transf 12 U/L (AST/SGOT) Alanine Aminotransferase 13 U/L (ALT/SGPT) Alkaline Phosphatase 107 U/L Total Protein 7.6 GM/DL Albumin 2.5 GM/DL Imaging Last Impressions Consultation 04/05/17 0000 Signed Impressions: Service Date/Time: March 00:00 - CONCLUSION: Nonspecific nodular right lung infiltrate. Srinivas Casillas MD Abdomen MRI 04/04/17 0000 Signed Impressions: Service Date/Time: Tuesday, April 04, 2017 10:11 - CONCLUSION: Left adrenal mass as described above. Followup is suggested. Lex Solis MD FACR Chest CT 04/02/177 Signed Impressions: Service Date/Time: Sunday, April 02, 2017 20:50 - CONCLUSION: Nodular infiltrate in the right upper lobe. The appearance should be followed to resolution. 3 cm left adrenal mass warrants further evaluation on elective basis with chemical shift MRI. Collin Ramon MD Chest X-Ray 04/01/17 0000 Signed Impressions: Service Date/Time: Saturday, April 01, 2017 09:39 - CONCLUSION: Mild hazy opacity in the right upper lobe most consistent with infiltrate. This may represent pneumonia. Jose Maria MD Tumor Localization 03/29/17 0000 Signed Impressions: Service Date/Time: March 13:18 - CONCLUSION: 1. The exam demonstrates a sizable area of abnormal white cell accumulation which appears to be lined to the subcutaneous and deep soft tissues of the plantar surface of the right foot medially. I do not see definite tracer accumulation within the bone. This Rg Solis MD Knee MRI 03/27/17 0000 Signed Impressions: Service Date/Time: Monday, March 27, 2017 14:51 - CONCLUSION: Complete rupture of the distal aspect of the quadriceps tendon with a large effusion and fluid extending into the prepatellar soft tissues. Collin Harding MD Tibia/Fibula X-Ray 03/26/17 Signed Impressions: Service Date/Time: Sunday, March 26, 2017 07:17 - CONCLUSION: Soft tissue swelling without fracture. Dawood Donnelly MD Lower Extremity Ultrasound 03/26/17 Signed Impressions: Service Date/Time: Sunday, March 26, 2017 08:10 - CONCLUSION: Normal examination. Collin Ramon MD Knee X-Ray 03/26/17 Signed Impressions: Service Date/Time: Sunday, March 26, 2017 07:14 - CONCLUSION: 1. Mild osteoarthritis. 2. Soft tissue swelling without fracture. Dawood Donnelly MD Head CT 03/26/17 Signed Impressions: Service Date/Time: Sunday, March 26, 2017 07:00 - CONCLUSION: No acute intracranial abnormality is identified. Collin Galarza MD Foot X-Ray 03/26/17 Signed Impressions: Service Date/Time: Sunday, March 26, 2017 07:21 - CONCLUSION: 1. Erosive arthritic changes of the first metatarsophalangeal joint with diffuse soft tissue swelling. 2. Old fracture distal second metatarsal. 3. Amputation third digit. Dawood Donnelly MD Foot MRI 03/26/17 Signed Impressions: Service Date/Time: Sunday, March 26, 2017 15:31 - CONCLUSION: 1. Broad and deep ulceration of the medial arch area and with MRI findings suggesting superficial osteomyelitis of the underlying distal medial cuneiform and proximal first metatarsal base. No deep or extensive osseous signal changes are demonstrated. 2. There is osteoarthritis of the first tarsometatarsal joint but mainly the dorsal portion of the. Chronic appearing arch collapse is noted. 1. Collin Wright MD Physical Exam CONSTITUTIONAL/GENERAL: This is an adequately nourished patient, in no apparent distress. TUBES/LINES/DRAINS: SKIN: No jaundice, rashes, or lesions. Skin temperature appropriate. Not diaphoretic. lungs : decreased but clear MUSCULOSKELETAL: Extremities without clubbing, cyanosis, BL hammer toes Pls palpable bl we4ll perfused R foot 3-3.5 cm stage 3 plantar ulcer with small amoun of serous dc surrounded by thick callus with odorless serous d/c + yellow exudate and pink granulated tissue 50/50% + some edema, minimal erythema 2 nd toe with small 2 -3 mm stage 2 ulceration , no purulence well healed 3 rd toe amputation sute Pedal pulses spalpable b/l LLE brace in place Assessment & Plan Remarks DFI R foot with planter indected ulcer and ? 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 - remote clx + MRSA, enterococcus (as of oct 2016) Recently hospitalisex for MRDA woundinfx complete traumatic rupture of L quadriceps tendon ortho ff sp repair New pulmonary mass, awaiting bx cont vancomycin, cipro bone bx for clx will be done by Dr Spring tomorrow duration of abx to be determined by the bx results; if + for osteo anticipate IV abx, ow oral - monitor renal fnx - keep trough 15-20 dw RN dw pt @ b/s dw Anitra Fraser MD April 06, 2017 14:25
[2017-04-06] MEDS ORDERED: Vancomycin Consult Pharmacy 1 EA OTHER SCH (14:30)
[2017-04-06 16:00] VITALS: BP 138/72; PULSE 96; RESP 22; TEMP 98.4; O2SAT 98
--- NOTE | 2017-04-06 18:59 | HHI.PR ---
Subjective Remarks Will have CT guided biopsy of lung nodule. Has mild hemoptysis. No fever. CT chest shows a Nodular infiltrate. No SOB Objective Vital Signs Date Time Temp Pulse Resp B/P Pulse Ox O2 Delivery O2 Flow Rate FiO2 04/06/17 16:00 98.4 96 22 138/72 98 04/06/17 12:00 98.3 86 22 127/69 97 04/06/17 08:00 98.3 80 22 151/75 98 04/06/17 04:00 97.5 62 18 148/66 96 04/06/17 00:00 98.1 78 18 121/58 97 04/05/17 20:00 98.3 82 16 136/63 97 I/O 04/05/17 04/05/17 04/05/17 04/06/17 04/06/17 04/06/17 07:00 15:00 23:00 07:00 15:00 23:00 Intake Total 1100 ml 480 ml 240 ml 480 ml Output Total 1750 ml 1000 ml 300 ml 400 ml 250 ml Balance -1750 ml 100 ml 180 ml -160 ml 230 ml Intake Oral 1100 ml 480 ml 240 ml 480 ml Output Urine Total 1750 ml 1000 ml 300 ml 400 ml 250 ml # Voids 1 # Bowel Movements 0 1 0 0 0 Result Diagram: 04/06/17 0704/06/17 07 Objective Remarks GENERAL: This is a middle-aged white male who is pale and in no acute distress. HEENT: Head normocephalic. Pupils are reactive. Tongue moist. Throat clear. He has no inflammation. NECK: No bruits, no thyroid enlargement or lymphadenopathy. CHEST: Equal movements with distant breath sounds. Occasional crackles at bases HEART SOUNDS: Regular S1 and S2. No murmur. No S3. ABDOMEN: Soft, benign. No masses, no organomegaly or tenderness. Bowel sounds are active. EXTREMITIES: Edema 1+. Deformity of the right foot with dressing over ulcerations of the foot and peripheral pulses are not felt. 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 The left foot is unremarkable. NEUROLOGIC: 1+ reflexes. No gross motor deficits. Assessment and Plan Assessment and Plan IMPRESSION 1. Hemoptysis with right lung infiltrate, chronic. 2. COPD. 3. History of quadriceps tendon repair due to rupture. 4. Chronic right foot ulceration. 5. Diabetes mellitus insulin dependent. 6. Right lung nodules. Plan : 1. Wean O2 to RA. 2.Spiriva , 1 cap daily [address] CT Needle Biopsy of the right lung nodule.Under [facility]. 4. Will get PET CT as OP. 5. CBC ,Coags in am Deuce Sylvester MD April 06, 2017 18:59
[2017-04-06 20:00] VITALS: BP 119/57; PULSE 72; RESP 18; TEMP 98.1; O2SAT 98
[2017-04-06] MEDS: VANCOMYCIN INJ 2,500 MG in SODIUM CHLORID 0.9% 500 ML INJ 500 ML IV SCH (21:09)
[2017-04-06] MEDS: INSULIN DETEMIR 100 UNITS/ML VIAL SQ SCH (21:14)
[2017-04-07 00:33] VITALS: BP 146/70; PULSE 80; RESP 20; TEMP 98; O2SAT 97
[2017-04-07] MEDS: HYDROmorphone HCL PF 1 MG/ML VIAL IV PRN ×6 (01:04→22:34)
[2017-04-07 04:49] VITALS: BP 142/70; PULSE 76; RESP 20; TEMP 98.6; O2SAT 98
[2017-04-07] MEDS: INSULIN ASPART SUPPLEMENTAL SCALE SQ SCH ×4 (06:23→21:00)
[2017-04-07 07:54] LABS: AUTOMATED NEUTROPHIL # 5.4 TH/MM3 (1.8-7.7); BASOPHIL # 0.1 TH/MM3 (0-0.2); BASOPHIL % 0.8 % (0.0-2.0); EOSINOPHIL # 0.2 TH/MM3 (0-0.4); HEMATOCRIT 27.1 % (39.0-51.0); HEMO FLAGS DIFF FINAL; LYMPH % 17.6 % (9.0-44.0); LYMPHOCYTE # 1.3 TH/MM3 (1.0-4.8); MEAN CORPUSCULAR HEMOGLOBIN 27.4 PG (27.0-34.0); MEAN CORPUSCULAR HGB CONC 33.4 % (32.0-36.0); MONO % 9.1 % (0.0-8.0); NEUT % 70.5 % (16.0-70.0); PLATELET COUNT 322 TH/MM3 (150-450); RED CELL DISTRIBUTION WIDTH 13.8 % (11.6-17.2); WHITE BLOOD COUNT 7.6 TH/MM3 (4.0-11.0)
[2017-04-07 07:59] VITALS: BP 177/85; PULSE 77; RESP 18; TEMP 98.3; O2SAT 96
[2017-04-07] MEDS: FUROSEMIDE 20 MG TAB PO SCH ×2 (08:07→20:38)
[2017-04-07] MEDS: CYANOCOBALAMIN 1,000 MCG TAB PO SCH (08:07)
[2017-04-07] MEDS: FERROUS SULFATE 325 MG (65 MG ELEMENTAL IRON) TAB PO SCH ×2 (08:07→20:38)
[2017-04-07] MEDS: DILTIAZEM-CD 240 MG CAP ER PO SCH (08:07)
[2017-04-07] MEDS: CIPROFLOXACIN/DEXT 400 MG/200 ML IV SCH ×2 (08:07→20:40)
[2017-04-07] MEDS: PANTOPRAZOLE SOD 40 MG DELAYED RELEASE TAB PO SCH (08:07)
[2017-04-07] MEDS: TIOTROPIUM BROMIDE 18 MCG INH INH SCH (08:08)
[2017-04-07] MEDS: SODIUM CHLORIDE 0.9% FLUSH 5 ML FLUSH IVF SCH ×2 (08:08→20:40)
[2017-04-07] MEDS: POLYETHYLENE GLYCOL 17 GM PKG PO SCH (08:08)
[2017-04-07] MEDS: VANCOMYCIN INJ 2,500 MG in SODIUM CHLORID 0.9% 500 ML INJ 500 ML IV SCH (08:11)
[2017-04-07 08:28] LABS: ALKALINE PHOSPHATASE 110 U/L (45-117); ALT (GPT) 11 U/L (12-78); ANION GAP 6 MEQ/L (5-15); AST (GOT) 11 U/L (15-37); BICARBONATE 29.6 MEQ/L (21.0-32.0); BLOOD UREA NITROGEN 16 MG/DL (7-18); CHLORIDE 102 MEQ/L (98-107); GLOMERULAR FILTRATION RATE 124 ML/MIN (>89); POTASSIUM 3.7 MEQ/L (3.5-5.1); SODIUM (NA) 138 MEQ/L (136-145); TOTAL BILIRUBIN ADULT 0.2 MG/DL (0.2-1.0)
--- NOTE | 2017-04-07 09:30 | HHI.PR ---
Subjective History of Present Illness Patient hemoptysis.. better pulmonary input noted have lung mass. CT Chest noted shows nodular infiltrate. ... going for needle biopsy for right lung nodule soon. . wound culture grow proteus and MRSA.. . have 3 cm left adrenal mass checked MRI of abdomen with contrast... noted. Per infectious disease need IV vancomycin and PO Cipro at discharge Review of Systems Constitutional Constitutional: Fatigue, Weakness Pulmonary Pulmonary Remarks HEMOPTYSIS. Musculoskeletal MS Remarks Left knee swelling and pain in knee brace. Integumentary Skin Remarks Right foot wound, Vitals/Results Intake & Output 04/06/17 04/06/17 04/07/17 15:00 23:00 07:00 Intake Total 480 ml 800 ml 650 ml Output Total 250 ml 1200 ml Balance 230 ml 800 ml -550 ml Intake Oral 480 ml 800 ml 650 ml Output Urine Total 250 ml 1200 ml # Voids 3 # Bowel Movements 0 1 1 Vital Signs Vital Signs Date Time Temp Pulse Resp B/P Pulse Ox O2 Delivery O2 Flow Rate FiO2 04/07/17 07:59 98.3 77 18 177/85 96 04/07/17 04:49 98.6 76 20 142/70 98 04/07/17 00:33 98.0 80 20 146/70 97 04/06/17 20:00 98.1 72 18 119/57 98 04/06/17 16:00 98.4 96 22 138/72 98 04/06/17 12:00 98.3 86 22 127/69 97 CBC/BMP: 04/07/17 0703 04/07/17 0703 Lab Results Laboratory Tests Test 04/07/17 07:03 White Blood Count 7.6 TH/MM3 Red Blood Count 3.30 MIL/MM3 Hemoglobin 9.0 GM/DL Hematocrit 27.1 % Mean Corpuscular Volume 82.0 FL Mean Corpuscular Hemoglobin 27.4 PG Mean Corpuscular Hemoglobin 33.4 % Concent Red Cell Distribution Width 13.8 % Platelet Count 322 TH/MM3 Mean Platelet Volume 6.8 FL Neutrophils (%) (Auto) 70.5 % Lymphocytes (%) (Auto) 17.6 % Monocytes (%) (Auto) 9.1 % Eosinophils (%) (Auto) 2.0 % Basophils (%) (Auto) 0.8 % Neutrophils # (Auto) 5.4 TH/MM3 Lymphocytes # (Auto) 1.3 TH/MM3 Monocytes # (Auto) 0.7 TH/MM3 Eosinophils # (Auto) 0.2 TH/MM3 Basophils # (Auto) 0.1 TH/MM3 CBC Comment DIFF FINAL Differential Comment Sodium Level 138 MEQ/L Potassium Level 3.7 MEQ/L Chloride Level 102 MEQ/L Carbon Dioxide Level 29.6 MEQ/L Anion Gap 6 MEQ/L Blood Urea Nitrogen 16 MG/DL Creatinine 0.66 MG/DL Estimat Glomerular Filtration 124 ML/MIN Rate Random Glucose 176 MG/DL Calcium Level 8.6 MG/DL Total Bilirubin 0.2 MG/DL Aspartate Amino Transf 11 U/L (AST/SGOT) Alanine Aminotransferase 11 U/L (ALT/SGPT) Alkaline Phosphatase 110 U/L Total Protein 7.2 GM/DL Albumin 2.4 GM/DL Physical Exam General General Appearance: No Acute Distress, Comfortable Eyes Eye Exam: Pupils Equal, Pupils Reactive, Sclera White, Extraocular Movement Intact Throat Throat Exam: Oral Mucosa [place] & Moist, Oral Pharynx Normal Neck Neck Exam: Neck Supple, Trachea Midline Pulmonary Resp Exam: Clear Bilaterally, Breath Sounds Equal Cardiology CV Exam: Regular, Normal Sinus Rhythm Gastrointestinal/Abdomen GI Exam: Soft, Non-Tender, Bowel Sounds Present Musculoskeletal MS Remarks Swelling and tenderness of left knee. Right foot wound. Right foot DP and PT palpable right mid foot collapse, right foot with a plantar central wound 5 x 5 cm. There is no probing to bone. There is no tendon exposed. Fibrogranular tissue. Positive serous drainage. No malodor. The right second digit with an ulceration to the distal tip. Integumentary Skin Exam: Warm Skin Remarks Right foot wound. Right foot DP and PT palpable right mid foot collapse, right foot with a plantar central wound 5 x 5 cm. There is no probing to bone. There is no tendon exposed. Fibrogranular tissue. Positive serous drainage. No malodor. The right second digit with an ulceration to the distal tip. Extremeties Extremities Exam: No Edema Neurologic Neuro Exam: Alert, Awake, Oriented, Speech Clear, Moving All Extremities, No Focal Deficits Psychiatric Psych Exam: Appropriate Responses VTE Prophylaxis VTE Prophylaxis Meds: Lovenox PUD Prophylasis PUD Prophylaxis: Protonix Assessment/Plan Assessment/Plan ASSESSMENT/PLAN 1. This is a 57-year male who came to the ER diagnosed status post fall, got entangled and trip and fall. The patient has minor head injury, the CT of the brain does not show anything acute. 2. Neurologically the patient is stable. 3. Diabetic wound of the right foot. / Osteomylitis infectious disease input noted... wound culture grow proteus and MRSA.. . The patient is on vancomycin, Podiatry input noted. s/p bone scan.. negative for osteomylitis.. Per ID. patient have osteomylitis.. need IV vancomycin and PO Cipro at discharge. 4. Anemia. checked iron study, B12, folic acid level and fecal occult blood test...show low Iron and B12 deficiency on replacement. 5. Diabetes mellitus ADA diet. NovoLog low-dose sliding scale. Check blood sugars, and adjust, monitor blood sugar. high blood sugar increased Levemir. 6. Swelling of the left knee status post fall. 9. Checked MRI of the left knee shows Quadriceps tendon rupture d/w orthopedic.. s/p surgery. 7. History of anxiety. Continue home medication Xanax 2 mg p.o. q. 8-hour p.r.n. anxiety. 8 .GI Prophylaxis .. Protonix 40 mg p.o. daily. 9. History of hypertension continue home medication. and on clonidine 0.1 mg p.o. q. 6-hour p.r.n. if BP above 160/90. 10. Arthritis. Continue home medication. 11. Deep venous thrombosis prophylaxis, Lovenox 40 mg subcutaneous daily. 12. Left knee swelling and pain MRI Done shows Quadriceps tendon rupture s/p surgery..Orthopedic input noted. 13. Hemoptysis pulmonary input noted have lung mass/ nodule ..CT Chest shows nodular infiltrate... going for needle biopsy for right lung nodule soon. 14. 3 cm left adrenal mass checked MRI of abdomen with contrast. ..noted We will manage the patient daily basis and make recommendations on a daily basis. Check CBC, CMP in the morning. Discussed Condition with: Patient Last Ybarra MD April 07, 2017 09:30
[2017-04-07] MEDS: RAMIPRIL 2.5 MG CAP PO SCH ×2 (09:41→20:39)
[2017-04-07] MEDS: ENOXAPARIN SODIUM 40 MG/0.4 ML SYRINGE SQ SCH (09:41)
--- NOTE | 2017-04-07 11:39 | PD.POD ---
Subjective Podiatric Problems Diabetic male with neuropathic ulceration of the right plantar arch. Pain scale used: 0-10 numeric scale Pain score: 1 Remarks Patient is a 57-year-old male with history of diabetic foot infections. He has an ulceration in the arch of the right foot. Culture and sensitivity grew out Proteus species. Ceretec labeled white blood cell scan was negative for osteomyelitis. Received a call from Dr. Young from infectious disease yesterday. She would like a bone biopsy performed at the midfoot to evaluate patient for long-term antibiotics. Patient is going to be having a needle lung biopsy on Sunday Past Med/Surg/Social History Past Medical History PFS Reviewed: Yes Endocrine: REPORTS HX OF: Diabetes mellitus Gastrointestinal: REPORTS HX OF: GERD Neurologic: REPORTS HX OF: Peripheral neuropathy Social History Smoking Status: Never Smoker Review of Systems Musculoskeletal: COMPLAINS OF: Deformaties Neurological: COMPLAINS OF: Numbness/tingling, Changes in sensation Objective Vital Signs Vital Signs Date Time Temp Pulse Resp B/P Pulse Ox O2 Delivery O2 Flow Rate FiO2 04/07/17 07:59 98.3 77 18 177/85 96 04/07/17 04:49 98.6 76 20 142/70 98 04/07/17 00:33 98.0 80 20 146/70 97 04/06/17 20:00 98.1 72 18 119/57 98 04/06/17 16:00 98.4 96 22 138/72 98 04/06/17 12:00 98.3 86 22 127/69 97 Coded Allergies: *MDRO Multi-Drug Resistant Organism (Verified Adverse Reaction, Unknown, MRSA, 04/02/17) MRSA (foot wound) - 02/12/15, 11/12/16, 03/29/17; (toe) - 03/2016 Medications and IVs Current Medications Clindamycin Phosphate/Sodium Chloride (Cleocin Inj/NS Inj) 104 ml @ 208 mls/hr ONCE ONCE IV Last administered on 03/26/17 07:34; Start 03/26/17 at 06:45; Stop 03/26/17 at 14:23; Status DC Morphine Sulfate 6 mg 6 mg ONCE ONCE IV PUSH Last administered on 03/26/17 07: 35; Start 03/26/17 at 06:45; Stop 03/26/17 at 06:46; Status DC Vancomycin HCl/ Sodium Chloride (Vancomycin Inj/ NS 250 ml Inj) 250 ml @ 250 mls/hr ONCE ONCE IV Last administered on 03/26/17 09:15; Start 03/26/17 at 09: 15; Stop 03/26/17 at 10:14; Status DC Alprazolam (Xanax) 2 mg Q8H PRN PO ANXIETY Last administered on 03/29/17 20:29 ; Start 03/26/17 at 11:00 Diltiazem HCl (Cardizem Cd) 240 mg DAILY PO Last administered on 04/07/17 08: 07; Start 03/27/17 at 09:00 Furosemide (Lasix) 20 mg BID PO Last administered on 04/07/17 08:07; Start 03/26/17 at 21:00 Insulin Detemir (Levemir Inj) 10 units HS SQ Last administered on 04/02/17 21: 22; Start 03/26/17 at 21:00; Stop 04/03/17 at 08:21; Status DC Pantoprazole Sodium (Protonix) 40 mg DAILY PO Last administered on 04/07/17 08 :07; Start 03/27/17 at 09:00 Ramipril (Altace) 2.5 mg BID PO Last administered on 04/07/17 09:41; Start 03/26/17 at 21:00 Non-Formulary Medication 30 mg 30 mg Q4HR PO PAIN; Start 03/26/17 at 12:00; Stop 03/26/17 at 12:15; Status DC Ampicillin Sodium/ Sulbactam Sodium/ Sodium Chloride (Unasyn Inj/NS Inj) 100 ml @ 200 mls/hr Q6H IV Last administered on 03/26/17 13:38; Start 03/26/17 at 12: 00; Stop 03/26/17 at 14:23; Status DC Dextrose (D50w (Vial) Inj) 25 ml UNSCH PRN IV PUSH HYPOGLYCEMIA-SEE COMMENTS; Start 03/26/17 at 11:15 Glucagon (Glucagon Inj) 1 mg UNSCH PRN OTHER HYPOGLYCEMIA-SEE COMMENTS; Start 03/26/17 at 11:15 Insulin Aspart (NovoLOG SUPPLEMENTAL SCALE) 1 ACHS SLIDING SCALE SQ Last administered on 04/05/17 10:11; Start 03/26/17 at 16:00; Stop 04/05/17 at 12:31 ; Status DC Oxycodone HCl (Roxicodone) 30 mg Q4H PRN PO PAIN SCALE 1 TO 4 Last administered on 03/30/17 07:46; Start 03/26/17 at 13:00; Stop 03/30/17 at 11:12; Status DC Gadodiamide (Omniscan Pf Inj) 20 ml STK-MED ONCE IV ; Start 03/26/17 at 17:29; Stop 03/26/17 at 17:30; Status DC Clonidine 0.1 mg 0.1 mg Q6H PRN PO SBP>160, DBP>90; Start 03/27/17 at 09:30 Vancomycin HCl 1000 mg/Sodium Chloride 250 ml @ 250 mls/hr ONCE ONCE IV Last administered on 03/27/17 23:05; Start 03/27/17 at 22:45; Stop 03/27/17 at 23:44; Status DC Pharmacy Profile Note 0 ml @ 0 mls/hr UNSCH OTHER ; Start 03/27/17 at 23:00; Stop 03/30/17 at 11:16; Status DC Vancomycin HCl/ Sodium Chloride (Vancomycin Inj/ NS 500 ml Inj) 517.5 ml @ 250 mls/hr Q12H IV Last administered on 03/29/17 08:44; Start 03/28/17 at 08:00; Stop 03/29/17 at 16:14; Status DC Miscellaneous Information SPECIFIC LAB TO BE ... ONCE ONCE .XX Last administered on 03/29/17 08:51; Start 03/29/17 at 07:45; Stop 03/29/17 at 07:46; Status DC Vancomycin HCl/ Sodium Chloride (Vancomycin Inj/ NS 250 ml Inj) 250 ml @ 250 mls/hr Q24H IV ; Start 03/28/17 at 08:15; Status UNV Hydromorphone HCl (Dilaudid Pf Inj) 0.5 mg Q4H PRN IV PUSH PAIN SCALE 5 TO 10 Last administered on 03/28/17 13:42; Start 03/28/17 at 08:15; Stop 03/28/17 at 16: 59; Status DC Cyanocobalamin (Vitamin B12) 1,000 mcg DAILY PO Last administered on 04/07/17 08:07; Start 03/28/17 at 16:30 Ferrous Sulfate (Ferrous Sulfate) 325 mg BID PO Last administered on 04/07/17 08:07; Start 03/28/17 at 21:00 Hydromorphone HCl 1 mg 1 mg Q4H PRN IV PUSH PAIN SCALE 5 TO 10 Last administered on 03/30/17 05:19; Start 03/28/17 at 16:55; Stop 03/30/17 at 11:12; Status DC Vancomycin HCl/ Sodium Chloride (Vancomycin Inj/ NS 500 ml Inj) 519 ml @ 250 mls/hr Q12H IV Last administered on 03/30/17 05:19; Start 03/29/17 at 18:00; Stop 03/30/17 at 11:16; Status DC Miscellaneous Information SPECIFIC LAB TO BE DRAWN: VANCO TROUGH DATE... ONCE ONCE .XX ; Start 03/31/17 at 05:45; Stop 03/31/17 at 05:45; Status DC Gentamicin Sulfate (Gentamicin Inj) 240 mg STK-MED ONCE .ROUTE Last administered on 03/30/17 11:21; Start 03/30/17 at 10:26; Stop 03/30/17 at 10:27; Status DC Lidocaine/ Epinephrine (Xylocaine-Epi 1%-1:100,000 Inj) 30 ml STK-MED ONCE .ROUTE ; Start 03/30/17 at 10:26; Stop 03/30/17 at 10:27; Status DC Fentanyl Citrate (fentaNYL INJ) 100 mcg STK-MED ONCE .ROUTE ; Start 03/30/17 at 10:44; Stop 03/30/17 at 10:45; Status DC Midazolam HCl (Versed Inj) 2 mg STK-MED ONCE .ROUTE Last administered on 10:55; Start 03/30/17 at 10:49; Stop 03/30/17 at 10:50; Status DC Metoclopramide HCl (Reglan Inj) 10 mg STK-MED ONCE .ROUTE Last administered on 03/30/17 10:55; Start 03/30/17 at 10:49; Stop 03/30/17 at 10:50; Status DC Famotidine (Pepcid Inj) 20 mg STK-MED ONCE .ROUTE Last administered on 10:55; Start 03/30/17 at 10:49; Stop 03/30/17 at 10:50; Status DC Bupivacaine HCl/ Epinephrine Bitart 30 ml 30 ml STK-MED ONCE .ROUTE Last administered on 03/30/17 11:21; Start 03/30/17 at 11:03; Stop 03/30/17 at 11:04; Status DC Lactated Ringer's (Lr 1000 ml Inj) 1,000 ml @ 0 mls/hr Q0M IV Last administered on 03/31/17 10:22; Start 03/30/17 at 11:04; Stop 03/31/17 at 12:00; Status DC IV Flush (NS Flush) 2 ml UNSCH PRN IVF FLUSH AFTER USING IV ACCESS; Start at 11:15 IV Flush (NS Flush) 2 ml BID IVF Last administered on 04/07/17 08:08; Start at 21:00 Miscellaneous Information (Post-op Orders (for Pharmacy)) STAT ONCE XX ; Start 03/30/17 at 11:15; Stop 03/30/17 at 12:37; Status DC Enoxaparin Sodium 30 mg 30 mg Q24H SQ Last administered on 04/02/17 08:26; Start 03/31/17 at 10:00; Stop 04/03/17 at 08:21; Status DC Cefazolin Sodium/ Dextrose 50 ml @ 100 mls/hr Q8H IV Last administered on 00:52; Start 03/30/17 at 16:00; Stop 03/31/17 at 08:29; Status DC Vancomycin HCl/ Sodium Chloride (Vancomycin Inj/ NS 250 ml Inj) 250 ml @ 250 mls/hr Q12HR IV ; Start 03/30/17 at 21:00; Stop 03/30/17 at 21:00; Status DC Acetaminophen/ Hydrocodone Bitart ([place] 7.5-325 Mg) 1 tab Q4H PRN PO PAIN LESS THAN 5 ON SCALE; Start 03/30/17 at 11:15; Stop 03/30/17 at 14:12; Status DC Acetaminophen/ Hydrocodone Bitart ([place] 7.5-325 Mg) 2 tab Q6H PRN PO PAIN GREATER THAN/EQUAL TO 5 Last administered on 03/30/17 13:17; Start 03/30/17 at 11 :15; Stop 03/30/17 at 14:12; Status DC Ondansetron HCl (Zofran Inj) 4 mg Q4H PRN IVP NAUSEA OR VOMITING; Start at 11:15 Diphenhydramine HCl (Benadryl) 25 mg Q6H PRN PO ITCHING; Start 03/30/17 at 11:15 Morphine Sulfate (Morphine Inj) 4 mg Q3H PRN IV PUSH break through pain; Start 03/30/17 at 11:15; Stop 03/30/17 at 14:12; Status DC Cefazolin Sodium (Ancef Inj) 1,000 mg STK-MED ONCE .ROUTE Last administered on 03/30/17 11:24; Start 03/30/17 at 11:20; Stop 03/30/17 at 11:21; Status DC Cefazolin Sodium 1000 mg 1,000 mg STK-MED ONCE IV Last administered on 11:24; Start 03/30/17 at 11:24; Stop 03/30/17 at 11:43; Status DC Vancomycin HCl/ Sodium Chloride (Vancomycin Inj/ NS 250 ml Inj) 250 ml @ 250 mls/hr Q12HR IV Last administered on 03/31/17 10:21; Start 03/30/17 at 21:00; Stop 03/31/17 at 09:59; Status DC Hydromorphone HCl (*DILAUDID PF INJ PERIprocedural ONLY) 1 mg STK-MED ONCE .ROUTE Last administered on 03/30/17 12:17; Start 03/30/17 at 12:12; Stop at 12:13; Status DC Hydromorphone HCl (Dilaudid Pf Inj) 1 mg Q4H PRN IV BREAKTHROUGH PAIN Last administered on 04/07/17 10:23; Start 03/30/17 at 14:15 Oxycodone HCl 30 mg 30 mg Q4H PRN PO PAIN SCALE 1 TO 10 Last administered on 08:08; Start 03/30/17 at 14:15 Cefazolin Sodium/ Dextrose 50 ml @ 100 mls/hr ONCE ONCE IV Last administered on 03/31/17 08:46; Start 03/31/17 at 08:45; Stop 03/31/17 at 09:14; Status DC Vancomycin HCl/ Sodium Chloride (Vancomycin Inj/ NS 500 ml Inj) 517.5 ml @ 250 mls/hr Q12H IV Last administered on 04/06/17 12:52; Start 03/31/17 at 22:00; Stop 04/06/17 at 15:31; Status DC Miscellaneous Information SPECIFIC LAB TO BE DRAWN:CHOLO DATE TO BE DR... ONCE ONCE .XX Last administered on 04/02/17 10:10; Start 04/02/17 at 09:45; Stop 04/02 at 09:46; Status DC Ciprofloxacin/ Dextrose (Cipro 400 Mg Premix) 200 ml @ 200 mls/hr Q12H IV Last administered on 04/07/17 08:07; Start 04/01/17 at 09:00 Propofol (Diprivan 200 Mg/20 ml Inj) 200 mg STK-MED ONCE IV ; Start 03/30/17 at 11:20; Stop 04/02/17 at 11:20; Status DC Ondansetron HCl (Zofran Inj) 4 mg STK-MED ONCE IV PUSH ; Start 03/30/17 at 11:20 ; Stop 04/02/17 at 11:20; Status DC Albuterol/ Ipratropium (Duoneb Neb) 1 ampule QID NEB NEB Last administered on 04/03/17 07:30; Start 04/02/17 at 20:00; Stop 04/05/17 at 18:43; Status DC Insulin Detemir (Levemir Inj) 20 units HS SQ Last administered on 04/04/17 20: 46; Start 04/03/17 at 21:00; Stop 04/05/17 at 08:25; Status DC Enoxaparin Sodium (Lovenox Inj) 40 mg DAILY@10 SQ Last administered on 09:41; Start 04/03/17 at 10:00 Cyanocobalamin (Vitamin B12) 1,000 mcg DAILY PO ; Start 04/03/17 at 09:00; Status UNV Guaifenesin/ Codeine Phosphate (Robitussin Ac 200-20 Mg/10 ml Liq) 10 ml Q6H PRN PO COUGH; Start 04/03/17 at 19:45 Gadodiamide (Omniscan Pf Inj) 19 ml STK-MED ONCE IV Last administered on 10:53; Start 04/04/17 at 10:53; Stop 04/04/17 at 10:54; Status DC Polyethylene Glycol (Miralax) 17 gm DAILY PO Last administered on 04/06/17 09: 00; Start 04/05/17 at 09:00 Insulin Detemir (Levemir Inj) 25 units HS SQ Last administered on 04/06/17 21: 14; Start 04/05/17 at 21:00 Insulin Aspart (NovoLOG SUPPLEMENTAL SCALE) 1 ACHS SLIDING SCALE SQ Last administered on 04/07/17 06:23; Start 04/05/17 at 11:00 Tiotropium [place] 18 mcg 18 mcg DAILY INH Last administered on 04/07/17 08:08 ; Start 04/06/17 at 09:00 Pharmacy Profile Note 0 ml @ 0 mls/hr UNSCH OTHER ; Start 04/06/17 at 14:30 Vancomycin HCl/ Sodium Chloride (Vancomycin Inj/ NS 500 ml Inj) 525 ml @ 250 mls/hr Q12H IV Last administered on 04/07/17 08:11; Start 04/06/17 at 22:00; Stop 04/07/17 at 09:39; Status DC Miscellaneous Information SPECIFIC LAB TO BE DRAWN:VANCO TROUGH DATE TO BE DR... ONCE ONCE .XX ; Start 04/08/17 at 09:45; Stop 04/08/17 at 09:46 Vancomycin HCl/ Sodium Chloride (Vancomycin Inj/ NS 500 ml Inj) 520 ml @ 260 mls/hr Q12H IV ; Start 04/07/17 at 22:00 Other Results Laboratory Tests Test 04/06/17 04/07/17 07:00 07:03 White Blood Count 9.0 TH/MM3 7.6 TH/MM3 Red Blood Count 3.36 MIL/MM3 3.30 MIL/MM3 Hemoglobin 9.3 GM/DL 9.0 GM/DL Hematocrit 27.8 % 27.1 % Mean Corpuscular Volume 82.7 FL 82.0 FL Mean Corpuscular Hemoglobin 27.6 PG 27.4 PG Mean Corpuscular Hemoglobin 33.4 % 33.4 % Concent Red Cell Distribution Width 13.7 % 13.8 % Platelet Count 319 TH/MM3 322 TH/MM3 Mean Platelet Volume 6.9 FL 6.8 FL Neutrophils (%) (Auto) 75.6 % 70.5 % Lymphocytes (%) (Auto) 13.9 % 17.6 % Monocytes (%) (Auto) 8.2 % 9.1 % Eosinophils (%) (Auto) 1.5 % 2.0 % Basophils (%) (Auto) 0.8 % 0.8 % Neutrophils # (Auto) 6.8 TH/MM3 5.4 TH/MM3 Lymphocytes # (Auto) 1.2 TH/MM3 1.3 TH/MM3 Monocytes # (Auto) 0.7 TH/MM3 0.7 TH/MM3 Eosinophils # (Auto) 0.1 TH/MM3 0.2 TH/MM3 Basophils # (Auto) 0.1 TH/MM3 0.1 TH/MM3 CBC Comment DIFF FINAL DIFF FINAL Differential Comment Laboratory Tests Test 04/06/17 04/07/17 07:00 07:03 Sodium Level 137 MEQ/L 138 MEQ/L Potassium Level 3.6 MEQ/L 3.7 MEQ/L Chloride Level 102 MEQ/L 102 MEQ/L Carbon Dioxide Level 27.5 MEQ/L 29.6 MEQ/L Anion Gap 8 MEQ/L 6 MEQ/L Blood Urea Nitrogen 18 MG/DL 16 MG/DL Creatinine 0.66 MG/DL 0.66 MG/DL Estimat Glomerular Filtration 124 ML/MIN 124 ML/MIN Rate Random Glucose 143 MG/DL 176 MG/DL Calcium Level 8.5 MG/DL 8.6 MG/DL Total Bilirubin 0.3 MG/DL 0.2 MG/DL Aspartate Amino Transf 12 U/L 11 U/L (AST/SGOT) Alanine Aminotransferase 13 U/L 11 U/L (ALT/SGPT) Alkaline Phosphatase 107 U/L 110 U/L Total Protein 7.6 GM/DL 7.2 GM/DL Albumin 2.5 GM/DL 2.4 GM/DL Exam-Podiatry Constitutional General appearance: comfortable Nutritional status: normal Orientation: alert and oriented x3 Dermatological Exam Skin Temp - Right: Within Normal Limits Skin Texture - Right: Within Normal Limits Skin Elasticity - Right: Within Normal Limits Skin Tugor - Right: Within Normal Limits Hair Growth - Right: Within Normal Limits Pigmentation - Right: Within Normal Limits Skin Temp - Left: Within Normal Limits Skin Texture - Left: Within Normal Limits Skin Elasticity - Left: Within Normal Limits Skin Tugor - Left: Within Normal Limits Hair Growth - Left: Within Normal Limits Pigmentation - Left: Within Normal Limits Ulcers: Location/Measurements Ulceration right arch secondary to midfoot collapse. History of Charcot deformity Vascular/Lymphatic Exam R Dorsails Pedis: Doppler L Dorsails Pedis: Doppler R Posterior Tibial: Doppler L Posterior Tibial: Doppler Neurologic Exam Present on right: Tingling, Paraesthesia Present on left: Tingling, Paraesthesia Musculoskeletal Exam Details Midfoot collapse consistent with a Charcot deformity of the right foot Assessment & Plan Diagnosis: (1) Diabetic foot infection Status: Acute (2) Diabetic foot ulcer Status: Acute (3) Open wound of right foot with complication Status: Acute (4) Charcot foot due to diabetes mellitus Status: Chronic A/P PLAN: Continue Maxorb extra AG dressings to right foot wound. Patient is scheduled for a bone biopsy of the right midfoot for tomorrow morning. Nothing by mouth after midnight. Problem Qualifiers (1) Diabetic foot ulcer: Qualified Code: E11.621 - Diabetic ulcer of right midfoot associated with type 2 diabetes mellitus, with necrosis of muscle (2) Open wound of right foot with complication: Qualified Code: S91.301D - Open wound of right foot with complication, subsequent encounter Dawood Spring DPM April 07, 2017 11:39
[2017-04-07 11:40] VITALS: BP 119/59; PULSE 75; RESP 18; TEMP 97.9; O2SAT 98
[2017-04-07 16:00] VITALS: BP 129/60; PULSE 63; RESP 18; TEMP 97.9; O2SAT 98
--- NOTE | 2017-04-07 18:57 | HHI.PR ---
Subjective Remarks Will have CT guided biopsy of lung nodule. Has no hemoptysis. No fever. CT chest shows a Nodular infiltrate. C/O leg pains and edema Objective Vital Signs Date Time Temp Pulse Resp B/P Pulse Ox O2 Delivery O2 Flow Rate FiO2 04/07/17 16:00 97.9 63 18 129/60 98 04/07/17 11:40 97.9 75 18 119/59 98 04/07/17 07:59 98.3 77 18 177/85 96 04/07/17 04:49 98.6 76 20 142/70 98 04/07/17 00:33 98.0 80 20 146/70 97 04/06/17 20:00 98.1 72 18 119/57 98 I/O 04/06/17 04/06/17 04/06/17 04/07/17 04/07/17 04/07/17 07:00 15:00 23:00 07:00 15:00 23:00 Intake Total 240 ml 480 ml 800 ml 650 ml 720 ml Output Total 400 ml 250 ml 1200 ml 1000 ml Balance -160 ml 230 ml 800 ml -550 ml -280 ml Intake Oral 240 ml 480 ml 800 ml 650 ml 720 ml Output Urine Total 400 ml 250 ml 1200 ml 1000 ml # Voids 3 # Bowel Movements 0 0 1 1 1 Result Diagram: 04/07/1770204/07/17702 Objective Remarks GENERAL: This is a middle-aged white male who is pale and in no acute distress. HEENT: Head normocephalic. Pupils are reactive. Tongue moist. Throat clear. He has no inflammation. NECK: No bruits, no thyroid enlargement or lymphadenopathy. CHEST: Equal movements with distant breath sounds. Occasional wheeze HEART SOUNDS: Regular S1 and S2. No murmur. No S3. ABDOMEN: Soft, benign. No masses, no organomegaly or tenderness. Bowel sounds are active. EXTREMITIES: Edema 1+. Deformity of the right foot with dressing over ulcerations of the foot and peripheral pulses are not felt. 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 The left foot is unremarkable. NEUROLOGIC: 1+ reflexes. No gross motor deficits. Assessment and Plan Assessment and Plan IMPRESSION 1. Hemoptysis with right lung infiltrate, chronic. 2. COPD. 3. History of quadriceps tendon repair due to rupture. 4. Chronic right foot ulceration. 5. Diabetes mellitus insulin dependent. 6. Right lung nodules. Plan : 1.D/C o2 2.Spiriva , 1 cap daily [address] Needle Biopsy of the right lung nodule.Under Verran. 4. Will get PET CT as OP. 5. Cont antibiotics per Deuce Chu MD April 07, 2017 18:57
[2017-04-07 20:00] VITALS: BP 126/71; PULSE 74; RESP 20; TEMP 97.4; O2SAT 100
[2017-04-07] MEDS: INSULIN DETEMIR 100 UNITS/ML VIAL SQ SCH (21:28)
[2017-04-07] MEDS: VANCOMYCIN INJ 2,000 MG in SODIUM CHLORID 0.9% 500 ML INJ 500 ML IV SCH (21:49)
[2017-04-08] VITALS: BP 125/64; PULSE 72; RESP 18; TEMP 98.7; O2SAT 98
[2017-04-08] MEDS: HYDROmorphone HCL PF 1 MG/ML VIAL IV PRN ×6 (02:39→23:40)
[2017-04-08 04:00] VITALS: BP 119/58; PULSE 72; RESP 24; TEMP 97.8; O2SAT 96
[2017-04-08] MEDS: INSULIN ASPART SUPPLEMENTAL SCALE SQ SCH ×4 (06:33→21:42)
[2017-04-08 08:00] VITALS: BP 145/77; PULSE 67; RESP 20; TEMP 97.6; O2SAT 99
[2017-04-08 08:43] LABS: AUTOMATED NEUTROPHIL # 5.8 TH/MM3 (1.8-7.7); BASOPHIL # 0.1 TH/MM3 (0-0.2); BASOPHIL % 0.7 % (0.0-2.0); EOSINOPHIL # 0.2 TH/MM3 (0-0.4); EOSINOPHIL % 2.1 % (0.0-4.0); HEMO FLAGS DIFF FINAL; LYMPHOCYTE # 1.6 TH/MM3 (1.0-4.8); MEAN CELL VOLUME 81.5 FL (80.0-100.0); MEAN CORPUSCULAR HEMOGLOBIN 28.3 PG (27.0-34.0); MEAN CORPUSCULAR HGB CONC 34.8 % (32.0-36.0); MONO % 7.5 % (0.0-8.0); NEUT % 70.7 % (16.0-70.0); PLATELET COUNT 370 TH/MM3 (150-450); RED BLOOD COUNT 3.43 MIL/MM3 (4.50-5.90); RED CELL DISTRIBUTION WIDTH 13.6 % (11.6-17.2); WHITE BLOOD COUNT 8.2 TH/MM3 (4.0-11.0)
[2017-04-08] MEDS: FERROUS SULFATE 325 MG (65 MG ELEMENTAL IRON) TAB PO SCH ×2 (08:52→21:27)
[2017-04-08] MEDS: FUROSEMIDE 20 MG TAB PO SCH ×2 (08:52→21:27)
[2017-04-08] MEDS: CYANOCOBALAMIN 1,000 MCG TAB PO SCH (08:52)
[2017-04-08] MEDS: DILTIAZEM-CD 240 MG CAP ER PO SCH (08:52)
[2017-04-08] MEDS: PANTOPRAZOLE SOD 40 MG DELAYED RELEASE TAB PO SCH (08:52)
[2017-04-08] MEDS: RAMIPRIL 2.5 MG CAP PO SCH ×2 (08:52→21:27)
[2017-04-08] MEDS: SODIUM CHLORIDE 0.9% FLUSH 5 ML FLUSH IVF SCH ×2 (08:53→21:00)
[2017-04-08] MEDS: POLYETHYLENE GLYCOL 17 GM PKG PO SCH (08:53)
[2017-04-08] MEDS: TIOTROPIUM BROMIDE 18 MCG INH INH SCH (08:56)
[2017-04-08] MEDS: CIPROFLOXACIN/DEXT 400 MG/200 ML IV SCH ×2 (09:00→21:26)
[2017-04-08 09:16] LABS: ALKALINE PHOSPHATASE 119 U/L (45-117); ALT (GPT) 14 U/L (12-78); ANION GAP 5 MEQ/L (5-15); AST (GOT) 24 U/L (15-37); BICARBONATE 30.1 MEQ/L (21.0-32.0); BLOOD UREA NITROGEN 13 MG/DL (7-18); CHLORIDE 101 MEQ/L (98-107); GLOMERULAR FILTRATION RATE 114 ML/MIN (>89); POTASSIUM 4.2 MEQ/L (3.5-5.1); SODIUM (NA) 136 MEQ/L (136-145); TOTAL BILIRUBIN ADULT 0.3 MG/DL (0.2-1.0)
[2017-04-08] MEDS ORDERED: PHARMACY ORDERED LAB ONE (09:45)
[2017-04-08] MEDS: ENOXAPARIN SODIUM 40 MG/0.4 ML SYRINGE SQ SCH (10:00)
[2017-04-08 12:00] VITALS: BP 153/70; PULSE 77; RESP 20; TEMP 97.6; O2SAT 99
[2017-04-08] MEDS: VANCOMYCIN INJ 2,000 MG in SODIUM CHLORID 0.9% 500 ML INJ 500 ML IV SCH ×2 (13:08→21:30)
--- NOTE | 2017-04-08 14:31 | HHI.PR ---
Subjective Remarks Will have CT guided biopsy of lung nodule. Better today. No fever. CT chest shows a Nodular infiltrate. Objective Vital Signs Date Time Temp Pulse Resp B/P Pulse Ox O2 Delivery O2 Flow Rate FiO2 04/08/17 12:00 97.6 77 20 153/70 99 04/08/17 09:00 Room Air 04/08/17 08:00 97.6 67 20 145/77 99 04/08/17 04:00 Room Air 04/08/17 04:00 97.8 72 24 119/58 96 04/08/17 00:00 98.7 72 18 125/64 98 04/08/17 00:00 Room Air 04/07/17 20:00 97.4 74 20 126/71 100 04/07/17 20:00 Room Air 04/07/17 16:00 97.9 63 18 129/60 98 I/O 04/07/17 04/07/17 04/07/17 04/08/17 04/08/17 04/08/17 07:00 15:00 23:00 07:00 15:00 23:00 Intake Total 650 ml 720 ml 200 ml 535 ml 720 ml Output Total 1200 ml 1000 ml 1900 ml 400 ml Balance -550 ml -280 ml 200 ml -1365 ml 320 ml Intake Oral 650 ml 720 ml 720 ml IV Total 200 ml 535 ml Output Urine Total 1200 ml 1000 ml 1900 ml 400 ml # Voids 2 # Bowel Movements 1 1 0 0 Result Diagram: 04/08/17 0712 04/08/17 0704 Objective Remarks GENERAL: This is a middle-aged white male who is pale and in no acute distress. HEENT: Head normocephalic. Pupils are reactive. Tongue moist. Throat clear. NECK: No bruits, no thyroid enlargement or lymphadenopathy. CHEST: Equal movements with distant breath sounds. HEART SOUNDS: Regular S1 and S2. No murmur. No S3. ABDOMEN: Soft, benign. No masses, no organomegaly or tenderness. Bowel sounds are active. EXTREMITIES: Edema 1+. Deformity of the right foot with dressing over ulcerations of the foot and peripheral pulses are not felt. 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 NEUROLOGIC: 1+ reflexes. No gross motor deficits. Assessment and Plan Assessment and Plan IMPRESSION 1. Hemoptysis with right lung infiltrate, chronic. 2. COPD. 3. History of quadriceps tendon repair due to rupture. 4. Chronic right foot ulceration. 5. Diabetes mellitus insulin dependent. 6. Right lung nodules. Plan : 1. CBC,COAG in am 2.Spiriva , 1 cap daily [address]. [address] Needle Biopsy of the right lung nodule.Under Verran. 4. Will get PET CT as OP. 5. Cont antibiotics per Deuce Chu MD April 08, 2017 14:31
[2017-04-08 16:00] VITALS: BP 113/56; PULSE 69; RESP 20; TEMP 97.8; O2SAT 99
[2017-04-08 20:00] VITALS: BP 139/67; PULSE 81; RESP 22; TEMP 98.1; O2SAT 99
[2017-04-08] MEDS: INSULIN DETEMIR 100 UNITS/ML VIAL SQ SCH (21:41)
--- NOTE | 2017-04-08 21:47 | HHI.PR ---
Subjective History of Present Illness Patient hemoptysis.. better pulmonary input noted have lung mass. CT Chest noted shows nodular infiltrate. ... going for needle biopsy for right lung nodule tomorrow. . wound culture grow proteus and MRSA.. . have 3 cm left adrenal mass.. advised to follow up with PCP for further investigation... checked MRI of abdomen with contrast... noted. Per infectious disease need IV vancomycin and PO Cipro at discharge Review of Systems Constitutional Constitutional: Fatigue, Weakness Pulmonary Pulmonary Remarks HEMOPTYSIS. Musculoskeletal MS Remarks Left knee swelling and pain in knee brace. Integumentary Skin Remarks Right foot wound, Vitals/Results Intake & Output 04/07/17 04/07/17 04/08/17 14:59 22:59 06:59 Intake Total 720 ml 200 ml 535 ml Output Total 1000 ml 1900 ml Balance -280 ml 200 ml -1365 ml Intake Oral 720 ml IV Total 200 ml 535 ml Output Urine Total 1000 ml 1900 ml # Voids 2 # Bowel Movements 1 0 0 Vital Signs Vital Signs Date Time Temp Pulse Resp B/P Pulse Ox O2 Delivery O2 Flow Rate FiO2 04/08/17 20:00 Room Air 04/08/17 16:00 97.8 69 20 113/56 99 04/08/17 12:00 97.6 77 20 153/70 99 04/08/17 09:00 Room Air 04/08/17 08:00 97.6 67 20 145/77 99 04/08/17 04:00 Room Air 04/08/17 04:00 97.8 72 24 119/58 96 04/08/17 00:00 98.7 72 18 125/64 98 04/08/17 00:00 Room Air CBC/BMP: 04/08/17 0712 04/08/17 0704 Lab Results Laboratory Tests Test 04/08/17 04/08/17 04/08/17 07:04 07:12 11:20 Sodium Level 136 MEQ/L Potassium Level 4.2 MEQ/L Chloride Level 101 MEQ/L Carbon Dioxide Level 30.1 MEQ/L Anion Gap 5 MEQ/L Blood Urea Nitrogen 13 MG/DL Creatinine 0.71 MG/DL Estimat Glomerular Filtration 114 ML/MIN Rate Random Glucose 153 MG/DL Calcium Level 8.7 MG/DL Total Bilirubin 0.3 MG/DL Aspartate Amino Transf 24 U/L (AST/SGOT) Alanine Aminotransferase 14 U/L (ALT/SGPT) Alkaline Phosphatase 119 U/L Total Protein 8.0 GM/DL Albumin 2.6 GM/DL White Blood Count 8.2 TH/MM3 Red Blood Count 3.43 MIL/MM3 Hemoglobin 9.7 GM/DL Hematocrit 28.0 % Mean Corpuscular Volume 81.5 FL Mean Corpuscular Hemoglobin 28.3 PG Mean Corpuscular Hemoglobin 34.8 % Concent Red Cell Distribution Width 13.6 % Platelet Count 370 TH/MM3 Mean Platelet Volume 7.0 FL Neutrophils (%) (Auto) 70.7 % Lymphocytes (%) (Auto) 19.0 % Monocytes (%) (Auto) 7.5 % Eosinophils (%) (Auto) 2.1 % Basophils (%) (Auto) 0.7 % Neutrophils # (Auto) 5.8 TH/MM3 Lymphocytes # (Auto) 1.6 TH/MM3 Monocytes # (Auto) 0.6 TH/MM3 Eosinophils # (Auto) 0.2 TH/MM3 Basophils # (Auto) 0.1 TH/MM3 CBC Comment DIFF FINAL Differential Comment Vancomycin Level Trough 15.0 MCG/ML Physical Exam General General Appearance: No Acute Distress, Comfortable Eyes Eye Exam: Pupils Equal, Pupils Reactive, Sclera White, Extraocular Movement Intact Throat Throat Exam: Oral Mucosa [place] & Moist, Oral Pharynx Normal Neck Neck Exam: Neck Supple, Trachea Midline Pulmonary Resp Exam: Clear Bilaterally, Breath Sounds Equal Cardiology CV Exam: Regular, Normal Sinus Rhythm Gastrointestinal/Abdomen GI Exam: Soft, Non-Tender, Bowel Sounds Present Musculoskeletal MS Remarks Swelling and tenderness of left knee. Right foot wound. Right foot DP and PT palpable right mid foot collapse, right foot with a plantar central wound 5 x 5 cm. There is no probing to bone. There is no tendon exposed. Fibrogranular tissue. Positive serous drainage. No malodor. The right second digit with an ulceration to the distal tip. Integumentary Skin Exam: Warm Skin Remarks Right foot wound. Right foot DP and PT palpable right mid foot collapse, right foot with a plantar central wound 5 x 5 cm. There is no probing to bone. There is no tendon exposed. Fibrogranular tissue. Positive serous drainage. No malodor. The right second digit with an ulceration to the distal tip. Extremeties Extremities Exam: No Edema Neurologic Neuro Exam: Alert, Awake, Oriented, Speech Clear, Moving All Extremities, No Focal Deficits Psychiatric Psych Exam: Appropriate Responses VTE Prophylaxis VTE Prophylaxis Meds: Lovenox PUD Prophylasis PUD Prophylaxis: Protonix Assessment/Plan Assessment/Plan ASSESSMENT/PLAN 1. This is a 57-year male who came to the ER diagnosed status post fall, got entangled and trip and fall. The patient has minor head injury, the CT of the brain does not show anything acute. 2. Neurologically the patient is stable. 3. Diabetic wound of the right foot. / Osteomylitis infectious disease input noted... wound culture grow proteus and MRSA.. . The patient is on vancomycin, Podiatry input noted. s/p bone scan.. negative for osteomylitis.. Per ID. patient have osteomylitis.. need IV vancomycin and PO Cipro at discharge. 4. Anemia. checked iron study, B12, folic acid level and fecal occult blood test...show low Iron and B12 deficiency on replacement. 5. Diabetes mellitus ADA diet. NovoLog low-dose sliding scale. Check blood sugars, and adjust, monitor blood sugar. high blood sugar increased Levemir. 6. Swelling of the left knee status post fall. 9. Checked MRI of the left knee shows Quadriceps tendon rupture d/w orthopedic.. s/p surgery. 7. History of anxiety. Continue home medication Xanax 2 mg p.o. q. 8-hour p.r.n. anxiety. 8 .GI Prophylaxis .. Protonix 40 mg p.o. daily. 9. History of hypertension continue home medication. and on clonidine 0.1 mg p.o. q. 6-hour p.r.n. if BP above 160/90. 10. Arthritis. Continue home medication. 11. Deep venous thrombosis prophylaxis, Lovenox 40 mg subcutaneous daily. 12. Left knee swelling and pain MRI Done shows Quadriceps tendon rupture s/p surgery..Orthopedic input noted. 13. Hemoptysis pulmonary input noted have lung mass/ nodule ..CT Chest shows nodular infiltrate... going for needle biopsy for right lung nodule tomorrow. 14. 3 cm left adrenal mass checked MRI of abdomen with contrast. ..noted..advised to follow up with PCP for further investigation. We will manage the patient daily basis and make recommendations on a daily basis. Check CBC, CMP in the morning. Discussed Condition with: Patient Last Ybarra MD April 08, 2017 21:47
[2017-04-08] MEDS: ALPRAZolam 1 MG TAB PO PRN (23:40)
[2017-04-09] VITALS: BP 136/63; PULSE 68; RESP 22; TEMP 98; O2SAT 98
[2017-04-09] MEDS: HYDROmorphone HCL PF 1 MG/ML VIAL IV PRN ×5 (03:52→22:06)
[2017-04-09 04:00] VITALS: BP 118/60; PULSE 65; RESP 22; TEMP 97.6; O2SAT 98
[2017-04-09 06:16] LABS: AUTOMATED NEUTROPHIL # 5.5 TH/MM3 (1.8-7.7); BASOPHIL # 0.1 TH/MM3 (0-0.2); BASOPHIL % 1.1 % (0.0-2.0); EOSINOPHIL # 0.2 TH/MM3 (0-0.4); EOSINOPHIL % 2.1 % (0.0-4.0); HEMATOCRIT 28.4 % (39.0-51.0); HEMO FLAGS DIFF FINAL; LYMPH % 23.8 % (9.0-44.0); MEAN CELL VOLUME 82.2 FL (80.0-100.0); MEAN CORPUSCULAR HEMOGLOBIN 27.4 PG (27.0-34.0); MEAN CORPUSCULAR HGB CONC 33.3 % (32.0-36.0); MONO % 9.4 % (0.0-8.0); NEUT % 63.6 % (16.0-70.0); PLATELET COUNT 337 TH/MM3 (150-450); RED BLOOD COUNT 3.45 MIL/MM3 (4.50-5.90); WHITE BLOOD COUNT 8.6 TH/MM3 (4.0-11.0)
[2017-04-09 06:35] LABS: PROTHROMBIN TIME - PATIENT 11.5 SEC (9.8-11.6)
[2017-04-09 06:38] LABS: ALT (GPT) 14 U/L (12-78); ANION GAP 7 MEQ/L (5-15); AST (GOT) 20 U/L (15-37); BICARBONATE 29.2 MEQ/L (21.0-32.0); BLOOD UREA NITROGEN 15 MG/DL (7-18); CHLORIDE 104 MEQ/L (98-107); GLOMERULAR FILTRATION RATE 136 ML/MIN (>89); POTASSIUM 3.7 MEQ/L (3.5-5.1); SODIUM (NA) 140 MEQ/L (136-145)
[2017-04-09] MEDS: INSULIN ASPART SUPPLEMENTAL SCALE SQ SCH ×4 (06:38→20:46)
[2017-04-09 06:40] LABS: ALKALINE PHOSPHATASE 118 U/L (45-117); TOTAL BILIRUBIN ADULT 0.2 MG/DL (0.2-1.0)
--- NOTE | 2017-04-09 06:54 | PD.ORT.PN ---
Subjective Subjective Remarks Sitting bedside comfortably with knee immobilizer in place Objective Vitals Vital Signs Date Time Temp Pulse Resp B/P Pulse Ox O2 Delivery O2 Flow Rate FiO2 04/09/17 04:00 97.6 65 22 118/60 98 04/09/17 04:00 Room Air 04/09/17 00:00 98.0 68 22 136/63 98 04/09/17 00:00 Room Air 04/08/17 20:00 98.1 81 22 139/67 99 04/08/17 20:00 Room Air 04/08/17 16:00 97.8 69 20 113/56 99 04/08/17 12:00 97.6 77 20 153/70 99 04/08/17 09:00 Room Air 04/08/17 08:00 97.6 67 20 145/77 99 I/O 04/08/17 04/08/17 04/08/17 04/09/17 04/09/17 04/09/17 06:59 14:59 22:59 06:59 14:59 22:59 Intake Total 535 ml 720 ml 200 ml 535 ml Output Total 1900 ml 400 ml 900 ml Balance -1365 ml 320 ml 200 ml -365 ml Intake Oral 720 ml IV Total 535 ml 200 ml 535 ml Output Urine Total 1900 ml 400 ml 900 ml # Voids 2 # Bowel Movements 0 0 Result Diagram: 04/09/17 0425 04/09/17 0425 Other Results Laboratory Tests Test 04/09/17 04:25 Prothrombin Time 11.5 SEC (9.8-11.6) Prothromb Time International 1.0 RATIO Ratio Imaging Last 72 hours Impressions Knee MRI 03/27/17 0000 Signed Impressions: Service Date/Time: Monday, March 27, 2017 14:51 - CONCLUSION: Complete rupture of the distal aspect of the quadriceps tendon with a large effusion and fluid extending into the prepatellar soft tissues. Collin Harding MD Tibia/Fibula X-Ray 03/26/17 0000 Signed Impressions: Service Date/Time: Sunday, March 26, 2017 07:17 - CONCLUSION: Soft tissue swelling without fracture. Dawood Donnelly MD Lower Extremity Ultrasound 03/26/17 0000 Signed Impressions: Service Date/Time: Sunday, March 26, 2017 08:10 - CONCLUSION: Normal examination. Collin Ramon MD Knee X-Ray 03/26/17 Signed Impressions: Service Date/Time: Sunday, March 26, 2017 07:14 - CONCLUSION: 1. Mild osteoarthritis. 2. Soft tissue swelling without fracture. Dawood Donnelly MD Head CT 03/26/17 Signed Impressions: Service Date/Time: Sunday, March 26, 2017 07:00 - CONCLUSION: No acute intracranial abnormality is identified. Collin Galarza MD Foot X-Ray 03/26/17 Signed Impressions: Service Date/Time: Sunday, March 26, 2017 07:21 - CONCLUSION: 1. Erosive arthritic changes of the first metatarsophalangeal joint with diffuse soft tissue swelling. 2. Old fracture distal second metatarsal. 3. Amputation third digit. Dawood Donnelly MD Foot MRI 03/26/17 Signed Impressions: Service Date/Time: Sunday, March 26, 2017 15:31 - CONCLUSION: 1. Broad and deep ulceration of the medial arch area and with MRI findings suggesting superficial osteomyelitis of the underlying distal medial cuneiform and proximal first metatarsal base. No deep or extensive osseous signal changes are demonstrated. 2. There is osteoarthritis of the first tarsometatarsal joint but mainly the dorsal portion of the. Chronic appearing arch collapse is noted. 1. Collin Wright MD Objective Remarks Bilateral upper extremities reveal no pain with shoulder elbow wrist or fingers. He does have some atrophy from previous injuries he has intact sensation in all his fingers and able to fully extend and flex his fingers. Right lower extremity reveals no pain with hip or knee range of motion. He is dressings over his foot which are clean and dry. Left lower extremity: Clean dry dressings intact with knee immobilizer placed. Mild swelling. Distally intact capillary refills slightly diminished pulses and no sensation from the ankle distally Assessment & Plan Assessment and Plan Left quadriceps tendon repair POD 10 Daily dressing changes with Xeroform, 4 x 4's and Migue wrap -no CLING Physical [id number] pound weightbearing on the left lower extremity. CKS at all times. No flexion, quad sets or active leglifts Case management for discharge planning to rehabilitation. He is a high risk for fall due to quadriceps tendon repair and also chronic wound of right foot and diabetic neuropathy a fall could reverse and cause failure to quadriceps tendon repair Follow-up Dr. Conway or [place] in 7 days for left quadricep tendon repair Jose Sherman Jr. April 09, 2017 06:54
[2017-04-09 08:00] VITALS: BP 156/83; PULSE 67; RESP 16; TEMP 97.3; O2SAT 97
--- NOTE | 2017-04-09 08:36 | HHI.PR ---
Addendum to Inpatient Note Addendum Reason: Additional Documentation Additional Information Patient was scheduled for bone biopsy with culture and path yesterday. Received call from floor nurse Sunday at almost 6 PM stain the patient is refusing the biopsy. Procedure was canceled. No need for me to see the patient during the rest of his hospitalization. He can go to [facility] facility at any time from a podiatry standpoint. He can follow up with the laboratory apparatus glass grinder of his choice after discharge. Dawood Spring DPM April 09, 2017 08:36
[2017-04-09] MEDS: SODIUM CHLORIDE 0.9% FLUSH 5 ML FLUSH IVF SCH ×2 (09:00→21:00)
[2017-04-09] MEDS: TIOTROPIUM BROMIDE 18 MCG INH INH SCH (09:00)
[2017-04-09] MEDS: POLYETHYLENE GLYCOL 17 GM PKG PO SCH (09:00)
[2017-04-09] MEDS: CIPROFLOXACIN/DEXT 400 MG/200 ML IV SCH ×2 (09:02→21:02)
[2017-04-09] MEDS: CYANOCOBALAMIN 1,000 MCG TAB PO SCH (09:03)
[2017-04-09] MEDS: DILTIAZEM-CD 240 MG CAP ER PO SCH (09:03)
[2017-04-09] MEDS: FERROUS SULFATE 325 MG (65 MG ELEMENTAL IRON) TAB PO SCH ×2 (09:03→20:44)
[2017-04-09] MEDS: FUROSEMIDE 20 MG TAB PO SCH ×2 (09:03→20:45)
[2017-04-09] MEDS: RAMIPRIL 2.5 MG CAP PO SCH ×2 (09:03→20:44)
[2017-04-09] MEDS: PANTOPRAZOLE SOD 40 MG DELAYED RELEASE TAB PO SCH (09:03)
--- NOTE | 2017-04-09 09:11 | HHI.PR ---
Subjective History of Present Illness Patient hemoptysis.. better pulmonary input noted have lung mass. CT Chest noted shows nodular infiltrate. ... going for needle biopsy for right lung nodule today. . wound culture grow proteus and MRSA.. . have 3 cm left adrenal mass.. advised to follow up with PCP for further investigation... checked MRI of abdomen with contrast... noted. Per infectious disease need IV vancomycin and PO Cipro at discharge Review of Systems Constitutional Constitutional: Fatigue, Weakness Pulmonary Pulmonary Remarks HEMOPTYSIS. Musculoskeletal MS Remarks Left knee swelling and pain in knee brace. Integumentary Skin Remarks Right foot wound, Vitals/Results Intake & Output 04/08/17 04/08/17 04/09/17 15:00 23:00 07:00 Intake Total 720 ml 200 ml 535 ml Output Total 400 ml 900 ml Balance 320 ml 200 ml -365 ml Intake Oral 720 ml IV Total 200 ml 535 ml Output Urine Total 400 ml 900 ml # Voids 2 # Bowel Movements 0 Vital Signs Vital Signs Date Time Temp Pulse Resp B/P Pulse Ox O2 Delivery O2 Flow Rate FiO2 04/09/17 08:00 97.3 67 16 156/83 97 04/09/17 04:00 97.6 65 22 118/60 98 04/09/17 04:00 Room Air 04/09/17 00:00 98.0 68 22 136/63 98 04/09/17 00:00 Room Air 04/08/17 20:00 98.1 81 22 139/67 99 04/08/17 20:00 Room Air 04/08/17 16:00 97.8 69 20 113/56 99 04/08/17 12:00 97.6 77 20 153/70 99 CBC/BMP: 04/09/17 0425 04/09/17 0425 Lab Results Laboratory Tests Test 04/08/17 04/09/17 11:20 04:25 Vancomycin Level Trough 15.0 MCG/ML White Blood Count 8.6 TH/MM3 Red Blood Count 3.45 MIL/MM3 Hemoglobin 9.5 GM/DL Hematocrit 28.4 % Mean Corpuscular Volume 82.2 FL Mean Corpuscular Hemoglobin 27.4 PG Mean Corpuscular Hemoglobin 33.3 % Concent Red Cell Distribution Width 14.0 % Platelet Count 337 TH/MM3 Mean Platelet Volume 6.8 FL Neutrophils (%) (Auto) 63.6 % Lymphocytes (%) (Auto) 23.8 % Monocytes (%) (Auto) 9.4 % Eosinophils (%) (Auto) 2.1 % Basophils (%) (Auto) 1.1 % Neutrophils # (Auto) 5.5 TH/MM3 Lymphocytes # (Auto) 2.0 TH/MM3 Monocytes # (Auto) 0.8 TH/MM3 Eosinophils # (Auto) 0.2 TH/MM3 Basophils # (Auto) 0.1 TH/MM3 CBC Comment DIFF FINAL Differential Comment Prothrombin Time 11.5 SEC Prothromb Time International 1.0 RATIO Ratio Sodium Level 140 MEQ/L Potassium Level 3.7 MEQ/L Chloride Level 104 MEQ/L Carbon Dioxide Level 29.2 MEQ/L Anion Gap 7 MEQ/L Blood Urea Nitrogen 15 MG/DL Creatinine 0.61 MG/DL Estimat Glomerular Filtration 136 ML/MIN Rate Random Glucose 167 MG/DL Calcium Level 8.8 MG/DL Total Bilirubin 0.2 MG/DL Aspartate Amino Transf 20 U/L (AST/SGOT) Alanine Aminotransferase 14 U/L (ALT/SGPT) Alkaline Phosphatase 118 U/L Total Protein 7.4 GM/DL Albumin 2.6 GM/DL Physical Exam General General Appearance: No Acute Distress, Comfortable Eyes Eye Exam: Pupils Equal, Pupils Reactive, Sclera White, Extraocular Movement Intact Throat Throat Exam: Oral Mucosa [place] & Moist, Oral Pharynx Normal Neck Neck Exam: Neck Supple, Trachea Midline Pulmonary Resp Exam: Clear Bilaterally, Breath Sounds Equal Cardiology CV Exam: Regular, Normal Sinus Rhythm Gastrointestinal/Abdomen GI Exam: Soft, Non-Tender, Bowel Sounds Present Musculoskeletal MS Remarks Swelling and tenderness of left knee. Right foot wound. Right foot DP and PT palpable right mid foot collapse, right foot with a plantar central wound 5 x 5 cm. There is no probing to bone. There is no tendon exposed. Fibrogranular tissue. Positive serous drainage. No malodor. The right second digit with an ulceration to the distal tip. Integumentary Skin Exam: Warm Skin Remarks Right foot wound. Right foot DP and PT palpable right mid foot collapse, right foot with a plantar central wound 5 x 5 cm. There is no probing to bone. There is no tendon exposed. Fibrogranular tissue. Positive serous drainage. No malodor. The right second digit with an ulceration to the distal tip. Extremeties Extremities Exam: No Edema Neurologic Neuro Exam: Alert, Awake, Oriented, Speech Clear, Moving All Extremities, No Focal Deficits Psychiatric Psych Exam: Appropriate Responses VTE Prophylaxis VTE Prophylaxis Meds: Lovenox PUD Prophylasis PUD Prophylaxis: Protonix Assessment/Plan Assessment/Plan ASSESSMENT/PLAN 1. This is a 57-year male who came to the ER diagnosed status post fall, got entangled and trip and fall. The patient has minor head injury, the CT of the brain does not show anything acute. 2. Neurologically the patient is stable. 3. Diabetic wound of the right foot. / Osteomylitis infectious disease input noted... wound culture grow proteus and MRSA.. . The patient is on vancomycin, Podiatry input noted. s/p bone scan.. negative for osteomylitis.. Per ID. patient have osteomylitis.. need IV vancomycin and PO Cipro at discharge. 4. Anemia. checked iron study, B12, folic acid level and fecal occult blood test...show low Iron and B12 deficiency on replacement. 5. Diabetes mellitus ADA diet. NovoLog low-dose sliding scale. Check blood sugars, and adjust, monitor blood sugar. high blood sugar increased Levemir. 6. Swelling of the left knee status post fall. 9. Checked MRI of the left knee shows Quadriceps tendon rupture d/w orthopedic.. s/p surgery. 7. History of anxiety. Continue home medication Xanax 2 mg p.o. q. 8-hour p.r.n. anxiety. 8 .GI Prophylaxis .. Protonix 40 mg p.o. daily. 9. History of hypertension continue home medication. and on clonidine 0.1 mg p.o. q. 6-hour p.r.n. if BP above 160/90. 10. Arthritis. Continue home medication. 11. Deep venous thrombosis prophylaxis, Lovenox 40 mg subcutaneous daily. 12. Left knee swelling and pain MRI Done shows Quadriceps tendon rupture s/p surgery..Orthopedic input noted. 13. Hemoptysis pulmonary input noted have lung mass/ nodule ..CT Chest shows nodular infiltrate... going for needle biopsy for right lung nodule today. 14. 3 cm left adrenal mass checked MRI of abdomen with contrast. ..noted..advised to follow up with PCP for further investigation. We will manage the patient daily basis and make recommendations on a daily basis. Check CBC, CMP in the morning. Discussed Condition with: Patient Last Ybarra MD April 09, 2017 09:11
[2017-04-09] MEDS: ENOXAPARIN SODIUM 40 MG/0.4 ML SYRINGE SQ SCH (10:24)
[2017-04-09] MEDS: VANCOMYCIN INJ 2,000 MG in SODIUM CHLORID 0.9% 500 ML INJ 500 ML IV SCH ×2 (11:57→21:02)
[2017-04-09 12:00] VITALS: BP 131/65; PULSE 71; RESP 20; TEMP 97.9; O2SAT 96
--- NOTE | 2017-04-09 13:12 | HHI.PR ---
Subjective Remarks CT guided biopsy of lung nodule was cancelled till [employer] is in. Better today. No chest pain. CT chest shows a Nodular infiltrate. Objective Vital Signs Date Time Temp Pulse Resp B/P Pulse Ox O2 Delivery O2 Flow Rate FiO2 04/09/17 12:00 97.9 71 20 131/65 96 04/09/17 08:00 97.3 67 16 156/83 97 04/09/17 07:15 Room Air 2.00 04/09/17 04:00 97.6 65 22 118/60 98 04/09/17 04:00 Room Air 04/09/17 00:00 98.0 68 22 136/63 98 04/09/17 00:00 Room Air 04/08/17 20:00 98.1 81 22 139/67 99 04/08/17 20:00 Room Air 04/08/17 16:00 97.8 69 20 113/56 99 I/O 04/08/17 04/08/17 04/08/17 04/09/17 04/09/17 04/09/17 06:59 14:59 22:59 06:59 14:59 22:59 Intake Total 535 ml 720 ml 200 ml 535 ml Output Total 1900 ml 400 ml 900 ml Balance -1365 ml 320 ml 200 ml -365 ml Intake Oral 720 ml IV Total 535 ml 200 ml 535 ml Output Urine Total 1900 ml 400 ml 900 ml # Voids 2 # Bowel Movements 0 0 Result Diagram: 04/09/17 0425 04/09/17 0425 Objective Remarks GENERAL: This is a middle-aged white male who is in no acute distress. HEENT: Head normocephalic. Pupils are reactive. Tongue moist. Throat clear. NECK: No bruits, no thyroid enlargement or lymphadenopathy. CHEST: Equal movements with distant breath sounds. Occ wheeze. HEART SOUNDS: Regular S1 and S2. No murmur. No S3. ABDOMEN: Soft, benign. No masses, no organomegaly or tenderness. Bowel sounds are active. EXTREMITIES: Edema 1+. Deformity of the right foot with dressing over ulcerations of the foot and peripheral pulses are not felt. 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 NEUROLOGIC: 1+ reflexes. No gross motor deficits. Assessment and Plan Assessment and Plan IMPRESSION 1. Hemoptysis with right lung infiltrate, chronic. 2. COPD. 3. History of quadriceps tendon repair due to rupture. 4. Chronic right foot ulceration. 5. Diabetes mellitus insulin dependent. 6. Right lung nodules. Plan : 1. Will go to rehab and get Biopsy done later as OP 2.Spiriva , 1 cap daily [address] Needle Biopsy of the right lung nodule.Under [facility], in [address] Myron barton. 4. Will get PET CT as OP. 5. Will see as OP in 10 days Deuce Sylvester MD April 09, 2017 13:12
--- NOTE | 2017-04-09 14:33 | HHI.IDPN ---
Subjective Subjective Remarks dw Dr Spring pt refused bone bx for now no fever tolerates abx OK Antibiotics vancomycin cipro Allergies: Coded Allergies: *MDRO Multi-Drug Resistant Organism (Verified Adverse Reaction, Unknown, MRSA, 04/02/17) MRSA (foot wound) - 02/12/15, 11/12/16, 03/29/17; (toe) - 03/2016 Objective . Vital Signs Date Time Temp Pulse Resp B/P Pulse Ox O2 Delivery O2 Flow Rate FiO2 04/09/17 12:00 97.9 71 20 131/65 96 04/09/17 08:00 97.3 67 16 156/83 97 04/09/17 07:15 Room Air 2.00 04/09/17 04:00 97.6 65 22 118/60 98 04/09/17 04:00 Room Air 04/09/17 00:00 98.0 68 22 136/63 98 04/09/17 00:00 Room Air 04/08/17 20:00 98.1 81 22 139/67 99 04/08/17 20:00 Room Air 04/08/17 16:00 97.8 69 20 113/56 99 04/08/17 04/08/17 04/09/17 15:00 23:00 07:00 Intake Total 720 ml 200 ml 535 ml Output Total 400 ml 900 ml Balance 320 ml 200 ml -365 ml Intake Oral 720 ml IV Total 200 ml 535 ml Output Urine Total 400 ml 900 ml # Voids 2 # Bowel Movements 0 . Laboratory Tests Test 04/08/17 04/09/17 07:12 04:25 White Blood Count 8.2 TH/MM3 8.6 TH/MM3 Red Blood Count 3.43 MIL/MM3 3.45 MIL/MM3 Hemoglobin 9.7 GM/DL 9.5 GM/DL Hematocrit 28.0 % 28.4 % Mean Corpuscular Volume 81.5 FL 82.2 FL Mean Corpuscular Hemoglobin 28.3 PG 27.4 PG Mean Corpuscular Hemoglobin 34.8 % 33.3 % Concent Red Cell Distribution Width 13.6 % 14.0 % Platelet Count 370 TH/MM3 337 TH/MM3 Mean Platelet Volume 7.0 FL 6.8 FL Neutrophils (%) (Auto) 70.7 % 63.6 % Lymphocytes (%) (Auto) 19.0 % 23.8 % Monocytes (%) (Auto) 7.5 % 9.4 % Eosinophils (%) (Auto) 2.1 % 2.1 % Basophils (%) (Auto) 0.7 % 1.1 % Neutrophils # (Auto) 5.8 TH/MM3 5.5 TH/MM3 Lymphocytes # (Auto) 1.6 TH/MM3 2.0 TH/MM3 Monocytes # (Auto) 0.6 TH/MM3 0.8 TH/MM3 Eosinophils # (Auto) 0.2 TH/MM3 0.2 TH/MM3 Basophils # (Auto) 0.1 TH/MM3 0.1 TH/MM3 CBC Comment DIFF FINAL DIFF FINAL Differential Comment Laboratory Tests Test 04/08/17 04/09/17 07:04 04:25 Sodium Level 136 MEQ/L 140 MEQ/L Potassium Level 4.2 MEQ/L 3.7 MEQ/L Chloride Level 101 MEQ/L 104 MEQ/L Carbon Dioxide Level 30.1 MEQ/L 29.2 MEQ/L Anion Gap 5 MEQ/L 7 MEQ/L Blood Urea Nitrogen 13 MG/DL 15 MG/DL Creatinine 0.71 MG/DL 0.61 MG/DL Estimat Glomerular Filtration 114 ML/MIN 136 ML/MIN Rate Random Glucose 153 MG/DL 167 MG/DL Calcium Level 8.7 MG/DL 8.8 MG/DL Total Bilirubin 0.3 MG/DL 0.2 MG/DL Aspartate Amino Transf 24 U/L 20 U/L (AST/SGOT) Alanine Aminotransferase 14 U/L 14 U/L (ALT/SGPT) Alkaline Phosphatase 119 U/L 118 U/L Total Protein 8.0 GM/DL 7.4 GM/DL Albumin 2.6 GM/DL 2.6 GM/DL Imaging Last Impressions Consultation 04/05/17 0000 Signed Impressions: Service Date/Time: March 00:00 - CONCLUSION: Nonspecific nodular right lung infiltrate. Srinivas Casillas MD Abdomen MRI 04/04/17 0000 Signed Impressions: Service Date/Time: Tuesday, April 04, 2017 10:11 - CONCLUSION: Left adrenal mass as described above. Followup is suggested. Lex Solis MD FACR Chest CT 04/02/17 1857 Signed Impressions: Service Date/Time: Sunday, April 02, 2017 20:50 - CONCLUSION: Nodular infiltrate in the right upper lobe. The appearance should be followed to resolution. 3 cm left adrenal mass warrants further evaluation on elective basis with chemical shift MRI. Collin Ramon MD Chest X-Ray 04/01/17 Signed Impressions: Service Date/Time: Saturday, April 01, 2017 09:39 - CONCLUSION: Mild hazy opacity in the right upper lobe most consistent with infiltrate. This may represent pneumonia. Jose Maria MD Tumor Localization 03/29/17 Signed Impressions: Service Date/Time: March 13:18 - CONCLUSION: 1. The exam demonstrates a sizable area of abnormal white cell accumulation which appears to be lined to the subcutaneous and deep soft tissues of the plantar surface of the right foot medially. I do not see definite tracer accumulation within the bone. This Rg Solis MD Knee MRI 03/27/17 Signed Impressions: Service Date/Time: Monday, March 27, 2017 14:51 - CONCLUSION: Complete rupture of the distal aspect of the quadriceps tendon with a large effusion and fluid extending into the prepatellar soft tissues. Collin Harding MD Tibia/Fibula X-Ray 03/26/17 Signed Impressions: Service Date/Time: Sunday, March 26, 2017 07:17 - CONCLUSION: Soft tissue swelling without fracture. Dawood Donnelly MD Lower Extremity Ultrasound 03/26/17 Signed Impressions: Service Date/Time: Sunday, March 26, 2017 08:10 - CONCLUSION: Normal examination. Collin Ramon MD Knee X-Ray 03/26/17 Signed Impressions: Service Date/Time: Sunday, March 26, 2017 07:14 - CONCLUSION: 1. Mild osteoarthritis. 2. Soft tissue swelling without fracture. Dawood Donnelly MD Head CT 03/26/17 Signed Impressions: Service Date/Time: Sunday, March 26, 2017 07:00 - CONCLUSION: No acute intracranial abnormality is identified. Collin Galarza MD Foot X-Ray 03/26/17 Signed Impressions: Service Date/Time: Sunday, March 26, 2017 07:21 - CONCLUSION: 1. Erosive arthritic changes of the first metatarsophalangeal joint with diffuse soft tissue swelling. 2. Old fracture distal second metatarsal. 3. Amputation third digit. Dawood Donnelly MD Foot MRI 03/26/17 0000 Signed Impressions: Service Date/Time: Sunday, March 26, 2017 15:31 - CONCLUSION: 1. Broad and deep ulceration of the medial arch area and with MRI findings suggesting superficial osteomyelitis of the underlying distal medial cuneiform and proximal first metatarsal base. No deep or extensive osseous signal changes are demonstrated. 2. There is osteoarthritis of the first tarsometatarsal joint but mainly the dorsal portion of the. Chronic appearing arch collapse is noted. 1. Collin Wright MD Physical Exam CONSTITUTIONAL/GENERAL: This is an adequately nourished patient, in no apparent distress. TUBES/LINES/DRAINS: SKIN: No jaundice, rashes, or lesions RESP: unbaoured respirations MUSCULOSKELETAL: Extremities without clubbing, cyanosis, R foot with dressing in place LLE brace in place NEURO: awake, alert non focal Assessment & Plan Remarks DFI R foot with planter indected ulcer and ? 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 - remote clx + MRSA, enterococcus (as of oct 2016) Recently hospitalisex for MRDA woundinfx complete traumatic rupture of L quadriceps tendon ortho ff sp repair New pulmonary mass, w/u in progress cont vancomycin, cipro PO x [address] Bullock : - monitor renal fnx - keep trough 15-20 OK to dc home OPAT filled out O/p care plan explained to pt, all questions answered Pt will fu with Dr Wilfred Bullock after dc dw pt @ b/s Anitra Capps Dr, MD April 09, 2017 14:33
--- NOTE | 2017-04-09 14:44 | HHI.FF ---
cc: Last Ybarra MD; Dawood Spring DPM; Hina Orellana MD Infusion Therapy Location of Infusion Therapy: Home [facility] IV Infusion Order Patient Information Patient Weight 98.6 kg Diagnosis: Diagnosis DFI Coded Allergies: *MDRO Multi-Drug Resistant Organism (Verified Adverse Reaction, Unknown, MRSA, 04/02/17) MRSA (foot wound) - 02/12/15, 11/12/16, 03/29/17; (toe) - 03/2016 Administer Medication Vancomycin 2 grams IV q 12 hours Start Treatment: April 09, 2017 Stop Treatment: May 06, 2017 Additional Information Venous access: PICC Line Additional Instructions [x] Peripheral flush and dressing changes per protocol [x] 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 [] May leave port accessed during therapy. [] May leave peripheral site accessed for duration of therapy. [x] If patient has SOB or respiratory distress, check oxygen saturation. If less than 90% or clinical signs of respiratory distress, administer oxygen at 2 L/min. via nasal cannula and notify physician. [x] Anaphylaxis/Reaction orders: * Stop infusion. * Keep IV line open with saline flush. * Notify physician. * Monitor vital signs every 15 minutes until symptoms resolve. * Check Oxygen saturation; Oxygen at 2 L/min. via nasal cannula if less than 90% or clinical signs of respiratory distress. * Administer diphenhydramine (Benadryl) 25 mg IV STAT, (unless patient has received as pre-med). May repeat once, if necessary. * Solu-Cortef 250 mg IVP over 30-60 seconds, use 100 mg vials for each dissolution. * Epinephrine (1mg/1 ml) 0.3 mg subcutaneously or IVP now with any signs of respiratory distress. * Check with physician for new additional pre-med orders if patient is re- challenged or re-treated. [x] May remove PICC line when treatment complete, after confirming with Physician. [x] If the patient is admitted to the hospital, the ED, or transferred via [facility] , complete transfer form including medication reconciliation order sheet. Laboratory Tests Weekly Labs: CBC w/diff, Creatinine (every Mon, Thur), LFT's (Hepatic function test), Vancomycin Trough (every Mon, Thur) Additional Information fu with Dr Bullock : Anitra Young MD April 09, 2017 14:44
[2017-04-09] MEDS ORDERED: EPIN1INJ21 SQ (14:54)
[2017-04-09] MEDS ORDERED: VANC10IN IV (14:54)
[2017-04-09] MEDS ORDERED: CIPR250T52 PO (14:54)
[2017-04-09] MEDS ORDERED: EPIN1INJ21 IV PUSH (14:54)
[2017-04-09] MEDS ORDERED: SOLU250I IV PUSH (14:54)
[2017-04-09] MEDS ORDERED: SODIUM CHLORIDE 0.9% FLUSH 10 ML FLUSH IV FLUSH PRN (17:00)
--- NOTE | 2017-04-09 17:16 | RADRPT ---
EXAM DATE/TIME: 04/09/2017 16:29 [facility] COMPARISON: CHEST SINGLE AP, April 01, 2017, 9:39. INDICATIONS : Post PICC line placement MEDICAL HISTORY : Hypertension. Diabetes mellitus type II. SURGICAL HISTORY : left leg tendon repair ENCOUNTER: Subsequent ACUITY: 1 week PAIN SCORE: 0/10 LOCATION: Bilateral chest FINDINGS: A single view of the chest demonstrates the lungs to be symmetrically aerated without evidence of mas s, infiltrate or effusion. Status post placement of a right PICC line. The PICC line appears to be in good position. There is no pneumothorax. Heart size is enlarged but stable compared to the prior yasmeen dy. Bony structures are stable.. CONCLUSION: Right PICC line in place. No evidence of pneumothorax. Delfin Carroll MD on April 09, 2017 at 17:13 Board Certified Radiologist. This report was verified electronically.
[2017-04-09] MEDS ORDERED: VITA10002 PO (18:31)
[2017-04-09] MEDS ORDERED: LEVEMIR SQ (18:31)
[2017-04-09] MEDS ORDERED: SPIRCAP INH (18:31)
[2017-04-09] MEDS ORDERED: FERR325T PO (18:31)
[2017-04-09 20:00] VITALS: BP 117/58; PULSE 70; RESP 18; TEMP 97.2; O2SAT 99
[2017-04-09] MEDS: INSULIN DETEMIR 100 UNITS/ML VIAL SQ SCH (20:46)
[2017-04-10] VITALS: BP 154/67; PULSE 75; RESP 18; TEMP 98.2; O2SAT 97
[2017-04-10] MEDS: HYDROmorphone HCL PF 1 MG/ML VIAL IV PRN ×3 (02:13→10:28)
[2017-04-10 04:00] VITALS: BP 133/60; PULSE 83; RESP 18; TEMP 98.5; O2SAT 98
[2017-04-10 06:01] LABS: AUTOMATED NEUTROPHIL # 5.9 TH/MM3 (1.8-7.7); BASOPHIL # 0.1 TH/MM3 (0-0.2); EOSINOPHIL # 0.3 TH/MM3 (0-0.4); EOSINOPHIL % 3.1 % (0.0-4.0); HEMATOCRIT 27.6 % (39.0-51.0); HEMO FLAGS DIFF FINAL; LYMPH % 17.8 % (9.0-44.0); LYMPHOCYTE # 1.5 TH/MM3 (1.0-4.8); MEAN CELL VOLUME 82.7 FL (80.0-100.0); MEAN CORPUSCULAR HEMOGLOBIN 28.2 PG (27.0-34.0); MEAN CORPUSCULAR HGB CONC 34.1 % (32.0-36.0); MONO % 7.5 % (0.0-8.0); NEUT % 70.6 % (16.0-70.0); PLATELET COUNT 345 TH/MM3 (150-450); RED BLOOD COUNT 3.34 MIL/MM3 (4.50-5.90); RED CELL DISTRIBUTION WIDTH 13.8 % (11.6-17.2); WHITE BLOOD COUNT 8.4 TH/MM3 (4.0-11.0)
[2017-04-10 06:33] LABS: ALKALINE PHOSPHATASE 129 U/L (45-117); ALT (GPT) 15 U/L (12-78); ANION GAP 7 MEQ/L (5-15); AST (GOT) 24 U/L (15-37); BICARBONATE 28.4 MEQ/L (21.0-32.0); BLOOD UREA NITROGEN 17 MG/DL (7-18); CHLORIDE 102 MEQ/L (98-107); GLOMERULAR FILTRATION RATE 98 ML/MIN (>89); POTASSIUM 3.8 MEQ/L (3.5-5.1); SODIUM (NA) 137 MEQ/L (136-145); TOTAL BILIRUBIN ADULT 0.2 MG/DL (0.2-1.0)
[2017-04-10] MEDS: INSULIN ASPART SUPPLEMENTAL SCALE SQ SCH ×2 (07:05→11:00)
--- NOTE | 2017-04-10 07:41 | HHI.PR ---
Subjective History of Present Illness Patient hemoptysis.. better pulmonary input noted have lung mass. CT Chest noted shows nodular infiltrate. ... going for needle biopsy for right lung nodule as out patient basis . wound culture grow proteus and MRSA.. . have 3 cm left adrenal mass.. advised to follow up with PCP for further investigation... checked MRI of abdomen with contrast... noted. Per infectious disease need IV vancomycin and PO Cipro at discharge Review of Systems Constitutional Constitutional: Fatigue, Weakness Pulmonary Pulmonary Remarks HEMOPTYSIS. Musculoskeletal MS Remarks Left knee swelling and pain in knee brace. Integumentary Skin Remarks Right foot wound, Vitals/Results Intake & Output 04/09/17 04/09/17 04/10/17 15:00 23:00 07:00 Intake Total 720 ml 920 ml 480 ml Output Total 450 ml Balance 720 ml 920 ml 30 ml Intake Oral 720 ml 720 ml 480 ml IV Total 200 ml Output Urine Total 450 ml # Voids 4 2 # Bowel Movements 1 0 0 Vital Signs Vital Signs Date Time Temp Pulse Resp B/P Pulse Ox O2 Delivery O2 Flow Rate FiO2 04/10/17 04:00 98.5 83 18 133/60 98 04/10/17 00:00 98.2 75 18 154/67 97 04/10/17 00:00 Room Air 04/09/17 20:00 97.2 70 18 117/58 99 04/09/17 20:00 Room Air 04/09/17 12:00 97.9 71 20 131/65 96 04/09/17 08:00 97.3 67 16 156/83 97 CBC/BMP: 04/10/17 0530 04/10/17 0530 Lab Results Laboratory Tests Test 04/10/17 05:30 White Blood Count 8.4 TH/MM3 Red Blood Count 3.34 MIL/MM3 Hemoglobin 9.4 GM/DL Hematocrit 27.6 % Mean Corpuscular Volume 82.7 FL Mean Corpuscular Hemoglobin 28.2 PG Mean Corpuscular Hemoglobin 34.1 % Concent Red Cell Distribution Width 13.8 % Platelet Count 345 TH/MM3 Mean Platelet Volume 6.7 FL Neutrophils (%) (Auto) 70.6 % Lymphocytes (%) (Auto) 17.8 % Monocytes (%) (Auto) 7.5 % Eosinophils (%) (Auto) 3.1 % Basophils (%) (Auto) 1.0 % Neutrophils # (Auto) 5.9 TH/MM3 Lymphocytes # (Auto) 1.5 TH/MM3 Monocytes # (Auto) 0.6 TH/MM3 Eosinophils # (Auto) 0.3 TH/MM3 Basophils # (Auto) 0.1 TH/MM3 CBC Comment DIFF FINAL Differential Comment Sodium Level 137 MEQ/L Potassium Level 3.8 MEQ/L Chloride Level 102 MEQ/L Carbon Dioxide Level 28.4 MEQ/L Anion Gap 7 MEQ/L Blood Urea Nitrogen 17 MG/DL Creatinine 0.81 MG/DL Estimat Glomerular Filtration 98 ML/MIN Rate Random Glucose 277 MG/DL Calcium Level 8.8 MG/DL Total Bilirubin 0.2 MG/DL Aspartate Amino Transf 24 U/L (AST/SGOT) Alanine Aminotransferase 15 U/L (ALT/SGPT) Alkaline Phosphatase 129 U/L Total Protein 7.5 GM/DL Albumin 2.5 GM/DL Physical Exam General General Appearance: No Acute Distress, Comfortable Eyes Eye Exam: Pupils Equal, Pupils Reactive, Sclera White, Extraocular Movement Intact Throat Throat Exam: Oral Mucosa [place] & Moist, Oral Pharynx Normal Neck Neck Exam: Neck Supple, Trachea Midline Pulmonary Resp Exam: Clear Bilaterally, Breath Sounds Equal Cardiology CV Exam: Regular, Normal Sinus Rhythm Gastrointestinal/Abdomen GI Exam: Soft, Non-Tender, Bowel Sounds Present Musculoskeletal MS Remarks Swelling and tenderness of left knee. Right foot wound. Right foot DP and PT palpable right mid foot collapse, right foot with a plantar central wound 5 x 5 cm. There is no probing to bone. There is no tendon exposed. Fibrogranular tissue. Positive serous drainage. No malodor. The right second digit with an ulceration to the distal tip. Integumentary Skin Exam: Warm Skin Remarks Right foot wound. Right foot DP and PT palpable right mid foot collapse, right foot with a plantar central wound 5 x 5 cm. There is no probing to bone. There is no tendon exposed. Fibrogranular tissue. Positive serous drainage. No malodor. The right second digit with an ulceration to the distal tip. Extremeties Extremities Exam: No Edema Neurologic Neuro Exam: Alert, Awake, Oriented, Speech Clear, Moving All Extremities, No Focal Deficits Psychiatric Psych Exam: Appropriate Responses VTE Prophylaxis VTE Prophylaxis Meds: Lovenox PUD Prophylasis PUD Prophylaxis: Protonix Assessment/Plan Assessment/Plan ASSESSMENT/PLAN 1. This is a 57-year male who came to the ER diagnosed status post fall, got entangled and trip and fall. The patient has minor head injury, the CT of the brain does not show anything acute. 2. Neurologically the patient is stable. 3. Diabetic wound of the right foot. / Osteomylitis infectious disease input noted... wound culture grow proteus and MRSA.. . The patient is on vancomycin, Podiatry input noted. s/p bone scan.. negative for osteomylitis.. Per ID. patient have osteomylitis.. need IV vancomycin and PO Cipro at discharge. 4. Anemia. checked iron study, B12, folic acid level and fecal occult blood test...show low Iron and B12 deficiency on replacement. 5. Diabetes mellitus ADA diet. NovoLog low-dose sliding scale. Check blood sugars, and adjust, monitor blood sugar. high blood sugar increased Levemir. 6. Swelling of the left knee status post fall. 9. Checked MRI of the left knee shows Quadriceps tendon rupture d/w orthopedic.. s/p surgery. 7. History of anxiety. Continue home medication Xanax 2 mg p.o. q. 8-hour p.r.n. anxiety. 8 .GI Prophylaxis .. Protonix 40 mg p.o. daily. 9. History of hypertension continue home medication. and on clonidine 0.1 mg p.o. q. 6-hour p.r.n. if BP above 160/90. 10. Arthritis. Continue home medication. 11. Deep venous thrombosis prophylaxis, Lovenox 40 mg subcutaneous daily. 12. Left knee swelling and pain MRI Done shows Quadriceps tendon rupture s/p surgery..Orthopedic input noted. 13. Hemoptysis pulmonary input noted have lung mass/ nodule ..CT Chest shows nodular infiltrate... going for needle biopsy for right lung nodule as out patient basis 14. 3 cm left adrenal mass checked MRI of abdomen with contrast. ..noted..advised to follow up with PCP for further investigation. ok to dc to snf today. f/u with pcp/pulmonary/ ID/ Podiatry 1 week. Discussed Condition with: Patient Last Ybarra MD April 10, 2017 07:41
[2017-04-10 08:00] VITALS: BP 155/80; PULSE 78; RESP 20; TEMP 98.1; O2SAT 100
[2017-04-10] MEDS ORDERED: SODIUM CHLORIDE 0.9% FLUSH 10 ML FLUSH IV FLUSH SCH (09:00)
[2017-04-10] MEDS: TIOTROPIUM BROMIDE 18 MCG INH INH SCH (09:00)
[2017-04-10] MEDS: SODIUM CHLORIDE 0.9% FLUSH 5 ML FLUSH IVF SCH (09:00)
[2017-04-10] MEDS: POLYETHYLENE GLYCOL 17 GM PKG PO SCH (09:03)
[2017-04-10] MEDS: FUROSEMIDE 20 MG TAB PO SCH (09:04)
[2017-04-10] MEDS: CYANOCOBALAMIN 1,000 MCG TAB PO SCH (09:04)
[2017-04-10] MEDS: FERROUS SULFATE 325 MG (65 MG ELEMENTAL IRON) TAB PO SCH (09:04)
[2017-04-10] MEDS: DILTIAZEM-CD 240 MG CAP ER PO SCH (09:04)
[2017-04-10] MEDS: PANTOPRAZOLE SOD 40 MG DELAYED RELEASE TAB PO SCH (09:05)
[2017-04-10] MEDS: RAMIPRIL 2.5 MG CAP PO SCH (09:05)
[2017-04-10] MEDS: CIPROFLOXACIN/DEXT 400 MG/200 ML IV SCH (09:05)
[2017-04-10] MEDS: ENOXAPARIN SODIUM 40 MG/0.4 ML SYRINGE SQ SCH (09:12)
[2017-04-10] MEDS: VANCOMYCIN INJ 2,000 MG in SODIUM CHLORID 0.9% 500 ML INJ 500 ML IV SCH (10:22)
[2017-04-10] MEDS ORDERED: HYDR-3534 PO (11:29)
[2017-04-10] MEDS ORDERED: VANCOMYCIN 500 MG VIAL (FOR ORAL USE ONLY) PO SCH (13:00)
--- NOTE | 2017-04-10 23:19 | MD ---
cc: LAST YBARRA MD ADMISSION DATE: 03/29/2017 DISCHARGE DATE: 04/10/2017 DISPOSITION: Okay to discharge the patient to the half-way. CONDITION AT THE TIME OF DISCHARGE: Satisfactory. ACTIVITY: As tolerated. DIET: Cardiac diet. ADA 1800 calorie diet. ALLERGIES: No drug allergies. DISCHARGE MEDICATIONS: 1. Cipro 500 milligrams twice a day for 14 days. 2. B12 1000 micrograms p.o. daily 3. Ferrous sulfate 325 milligrams twice a day. 4. Eunice 7.5/325 p.o. q4 hours p.r.n. pain 5. Hydrocortisone Solu-Tab 250 milligram injection. 6. Insulin, Detemir 25 units hs. 7. Spiriva Handi-haler 18 micrograms inhalation. 8. Vancomycin 2 grams IV q. 12-hour. 9. Xanax 2 milligrams p.o. q8 hours. 10. Eliquis 5 milligrams twice a day. 11. Diltiazem 240 milligrams p.o. daily 12. Furosemide 20 milligrams twice a day. 13. Insulin Lispro 5/25 units according to sliding scale. 14. Oxycodone 30 milligrams p.o. q4 hours. 15. Protonix 40 milligrams p.o. daily. 16. Ramipril 2.5 milligrams twice a day. The patient advised to follow up with PCP, pulmonary, home theater expert, orthopedic, Infectious Disease within a week. ADMITTING DIAGNOSIS: Status post fall, minor head injury. CT brain does not show anything acute. Neurologically the patient was stable during the hospital stay, nothing happened. Diabetic wound on the right foot/osteomyelitis of the foot. The patient's wound culture grew out proteus and MRSA. The patient was given vancomycin. had seen the patient. The patient is status post bone scan, negative for osteomyelitis per Infectious Disease, Dr. Orellana. I discussed the case with Dr. Orellana, she said the patient has osteomyelitis. MRI was positive for osteomyelitis. The patient needed IV vancomycin and Cipro at the time of discharge which he did get. Anemia. Check B12, folic acid level. The patient had low B12 level and low iron, so the patient was started on B12 replacement and iron tablet. Diabetes mellitus. Swelling of the left ankle, status post fall. The patient had MRI done which showed quadriceps tendon rupture. Orthopedic saw the patient. The patient is status post surgery for quadriceps tendon rupture. History of anxiety. History of hypertension. History of arthritis. Pulmonary saw the patient. The patient has lung nodules and mass. The patient was planned to go for a biopsy but is not available so the patient was discharged to a nursing home care facility and Dr. Sylvester will send the patient for the biopsy as an outpatient. The patient was advised to follow up with Dr. Sylvester in one to two weeks. The patient verbalized underdosing. For the 3 cm renal mass, check the MRI of the abdomen. The patient needs further investigation. The patient advised to follow up with PCP and get further investigation done. The patient verbalized understanding. The patient was seen by Dr. Orellana, Dr. Sylvester, Dr. Young, Dr. Jose Sherman. The patient got physical therapy during the hospital stay. The patient has anemia with a hemoglobin of 9.5. The patient's creatinine was 6.1 which was normal. The patient had low albumin 2.6, PT 11.5, INR 1.0. The patient had vancomycin level was done during the hospital stay on 04/08/2017, it was 15.0. The patient had x-ray of the tibia-fibula done shows soft tissue swelling without fracture. The patient's lower extremity ultrasound was done, shows normal examination. X-ray of the knee was done shows mild osteoarthritis soft tissue swelling without fracture. The patient's CT brain was done shows nothing acute. The patient had X-ray of the foot done shows erosive arthritis changes of the first metatarsal phalangeal joint with diffuse soft tissue swelling, old fracture distal second metatarsal, amputation third digit. MRI of the foot was done which shows broad and deep ulceration of the medial arch area and with MRI findings suggesting superficial osteomyelitis of the underlying distal, medial and cuneiform, and proximal first metatarsal bone. No deep or extensive osseous signal changes are demonstrated. There is osteoarthritis of the first metatarsophalangeal joint, but mainly the dorsal portion of the joint, chronic-appearing arch collapse is noted. MRI of the knee was done showed complete rupture of the distal aspect of the quadriceps tendon with large effusion and fluid extending into the prepatellar soft tissue. The patient had a bone scan done and demonstrates a sizeable area of abnormal white cell accumulation which appeared to be aligned to the subcutaneous and deep soft tissue of the plantar surface of the right foot medially. I do not see a definite accumulation within the bone. Chest x-ray was done and shows mild hazy opacity in the right upper lobe most consistent with infiltrate. This may represent pneumonia. CT chest was done shows nodular infiltrate in the right upper lobe. The appearance could be followed to resolution, 3 cm left adrenal mass warrants further evaluation. This is on clinical examination, and also based on chemical examination. Abdominal MRI done showed left adrenal mass. Wound culture grew out Proteus mirabilis and staph aureus MRSA. Patient's blood culture was negative for five days. Please see further details in the medical record. The patient refused bone biopsy to rule out osteomyelitis. Last Ybarra MD EA/LELE /6:42 PM /10:29 PM
== END 2017-04-10 12:25 | DRG 501 ==
LOC: PHED 06:00 → PHEDA 09:17 → PH3B 11:24 → OBSVTOIN 03-29 15:27 → N04A 04-05 14:15
PROVIDERS: ADMIT Family Medicine; ATTEND Family Medicine
PROC: 0LMR0ZZ Reattachment of Left Knee Tendon, Open Approach (ICD-10-PCS; principal; 2017-03-30 11:00)
DX: S76.112A Strain of left quadriceps muscle, fascia and tendon, initial encounter (principal); M86.9 Osteomyelitis, unspecified; R04.2 Hemoptysis; E11.40 Type 2 diabetes mellitus with diabetic neuropathy, unspecified; E11.621 Type 2 diabetes mellitus with foot ulcer; S09.90XA Unspecified injury of head, initial encounter; E11.69 Type 2 diabetes mellitus with other specified complication; I10 Essential (primary) hypertension; L97.514 Non-pressure chronic ulcer of other part of right foot with necrosis of bone; I48.91 Unspecified atrial fibrillation; E11.610 Type 2 diabetes mellitus with diabetic neuropathic arthropathy; E53.8 Deficiency of other specified B group vitamins; L08.9 Local infection of the skin and subcutaneous tissue, unspecified; E78.5 Hyperlipidemia, unspecified; K21.9 Gastro-esophageal reflux disease without esophagitis; E11.628 Type 2 diabetes mellitus with other skin complications; J44.9 Chronic obstructive pulmonary disease, unspecified; D50.9 Iron deficiency anemia, unspecified; E27.9 Disorder of adrenal gland, unspecified; R91.1 Solitary pulmonary nodule; M19.90 Unspecified osteoarthritis, unspecified site; F41.9 Anxiety disorder, unspecified; B95.62 Methicillin resistant Staphylococcus aureus infection as the cause of diseases classified elsewhere; B96.4 Proteus (mirabilis) (morganii) as the cause of diseases classified elsewhere; W01.0XXA Fall on same level from slipping, tripping and stumbling without subsequent striking against object, initial encounter; Z77.090 Contact with and (suspected) exposure to asbestos; Z79.01 Long term (current) use of anticoagulants; Z79.4 Long term (current) use of insulin; Z86.14 Personal history of Methicillin resistant Staphylococcus aureus infection; Z89.421 Acquired absence of other right toe(s)
CPT/HCPCS: 36569; 70450; 71010; 71250; 73560; 73590; 73620; 73720; 73721; 74183; 76937; 78807; 78999; 80048; 80053; 80202; 82607; 82728; 82746; 82948; 83540; 83550; 83605; 84466; 85025; 85610; 85652; 85730; 86140; 87040; 87070; 87077; 87186; 87205; 93970; 94150; 94640; 94664; 96365; 96375; A9569; A9579; G0378; G8987-GP; G8988-GP; J0295; J0690; J0744; J1170; J1580; J1642; J1650; J1815; J2250; J2270; J2405; J2765; J3010; J3370; J7040; J7050; J7120; L1830

== ENCOUNTER 2017-04-22 12:12 | Emergency (ER) | payer MEDICARE, OTHER ==
[~2017-04-22] VITALS: Ht 200.7 cm; Wt 103.0 kg
[~2017-04-22 12:12] MED LIST changes: +APIX5TAB PO; -CEFT500T3 PO; +CIPR250T52 PO; +EPIN1INJ21 IV PUSH; +EPIN1INJ21 SQ; +FERR325T PO; -GUAISYP4 PO; +HYDR-3288 PO; +HYDR-3534 PO; -LANTUS2P SQ; +LEVEMIR SQ; -OXYC-426 PO; +SPIRCAP INH; +VANC10IN IV; +VITA10002 PO; +WALKER/ADULT/FO1 MIS; +XANA2TAB2 PO
[2017-04-22 12:15] VITALS: BP 142/72; PULSE 74; RESP 16; TEMP 98.3; O2SAT 99
--- NOTE | 2017-04-22 12:37 | PD ---
HPI Chief Complaint: Pain: Acute or Chronic Time Seen by Provider: 12:21 Travel History International Travel<30 days: No Contact w/Intl Traveler<30days: No Traveled to known affect area: No History of Present Illness HPI This patient has right foot osteomyelitis and is receiving IV vancomycin through a PICC line as well as taking oral Cipro as recommended by ID. Apparently he was discharged from the retirement and arrangements fell through the cracks to continue the IV antibiotics as an outpatient. foreign exchange services manager is in the room now looking into this. The patient is only here to get his dose of antibiotics. He does not have any new complaint or physical symptoms. Symptoms severity is mild. No alleviating factors. Duration one day PFSH Past Medical History Hx Anticoagulant Therapy: Yes Autoimmune Disease: No Blood Disorders: No Anxiety: Yes Depression: No Heart Rhythm Problems: No Cancer: No Cardiovascular Problems: Yes High Cholesterol: Yes Chest Pain: No Congestive Heart Failure: No Cerebrovascular Accident: No Diabetes: Yes (TYPE 2 DIABETES) Patient Takes Glucophage: No Diminished Hearing: No Endocrine: Yes Gastrointestinal Disorders: Yes GERD: Yes Genitourinary: No Headaches: No Hiatal Hernia: No Hypertension: Yes Immune Disorder: No Implanted Vascular Access Dvce: No Musculoskeletal: Yes (RIGHT FOOT ULCER) Neurologic: Yes (DIABETIC NEUROPATHY) Psychiatric: Yes Reproductive: No Respiratory: No Integumentary: Yes (diabetic foot ulcers for 15 years) Immunizations Current: Yes Migraines: No Seizures: No Thyroid Disease: No Ulcer: No Tetanus Vaccination: < 5 Years Past Surgical History Abdominal Surgery: No AICD: No Arteriovenous Shunt: No Cardiac Surgery: Yes (TWO HEART ABLATIONS) Ear Surgery: No Endocrine Surgery: No Eye Surgery: No Genitourinary Surgery: No Gynecologic Surgery: No Insulin Pump: No Joint Replacement: No Neurologic Surgery: No Oral Surgery: Yes Pacemaker: No Thoracic Surgery: No Other Surgery: Yes ( SKIN GRAFTS, BILAT BIG TOES) Social History Alcohol Use: No Tobacco Use: No Substance Use: No Allergies-Medications (Allergen,Severity, Reaction): Coded Allergies: *MDRO Multi-Drug Resistant Organism (Verified Adverse Reaction, Unknown, MRSA, 04/22/17) MRSA (foot wound) - 02/12/15, 11/12/16, 03/29/17; (toe) - 03/2016 Reported Meds & Prescriptions Reported Meds & Active Scripts Active Lortab (Hydrocodone-Acetaminophen) 7.5-325 Mg Tab 1 Tab PO Q6H PRN Ferrous Sulfate 325 Mg Tab 325 Mg PO BID Vitamin B-12 (Cyanocobalamin) 1,000 Mcg Tab 1,000 Mcg PO DAILY Spiriva Handihaler (Tiotropium Inh) 18 Mcg Cap 18 Mcg INH DAILY Levemir Inj (Insulin Detemir) 1,000 unit/ 10 ML Vial 25 Units SQ HS Epinephrine Inj 1 Mg/Ml Inj 0.3 Mg SQ ONCE PRN Give with any signs of respiratory distress. Epinephrine Inj 1 Mg/Ml Inj 0.3 Mg IV PUSH ONCE PRN Vancomycin Inj (Vancomycin HCl) 10 Gm Inj 2,000 Mg IV Q12HR 28 Days Cipro (Ciprofloxacin HCl) 250 Mg Tab 750 Mg PO BID 28 Days Walker/Adult/Folding (Device) 1 Mis Mis 1 Ea .ROUTE DIRECTED [place] (Hydrocodone-Acetaminophen) 7.5-325 mg Tab 1 Tab PO Q4H PRN Reported Eliquis (Apixaban) 5 Mg Tab 5 Mg PO BID Xanax (Alprazolam) 2 Mg Tab 2 Mg PO Q8H PRN Ramipril 5 Mg Cap 2.5 Mg PO BID Diltiazem ER 24 HR 240 Mg Brock 240 Mg PO DAILY Humalog Inj (Insulin Human Lispro) 1,000 Unit/10 Ml Vial 5-25 Units SQ ACHS Max dose at bedtime:( )units; sugars < 70,(0)units; sugars 150-199,(5)units; sugars 200-249,(10)units; sugars 250-299,(15)units; sugars 300-349,(20)units; sugars more than 349,(25)units. Furosemide 20 Mg Tab 20 Mg PO BID Protonix (Pantoprazole Sodium) 40 Mg Tab 40 Mg PO DAILY Review of Systems General / Constitutional: No: Fever HENT: No: Headaches Cardiovascular: No: Chest Pain or Discomfort Physical Exam Narrative Psych: Normal mood and affect. Normal insight and judgment. Right foot: Has a ulcer on the bottom of the foot. Wound looks clean. No drainage or surrounding erythema or fluctuance NECK: Symmetrical appearance, midline trachea. No mass or crepitus. Thyroid without enlargement, tenderness, or mass. GASTROINTESTINAL: Abdomen soft, non-tender, nondistended. Positive bowel sounds. No hepato-splenomegaly, or palpable masses. No guarding. Data Data Last Documented VS Vital Signs Date Time Temp Pulse Resp B/P Pulse Ox O2 Delivery O2 Flow Rate FiO2 04/22/17 12:15 98.3 74 16 142/72 99 Orders Vancomycin Inj (Vancomycin Inj) (04/22/17 13:00) [facility] Medical Decision Making Medical Screen Exam Complete: Yes Emergency Medical Condition: Yes Medical Record Reviewed: Yes Differential Diagnosis Osteomyelitis, cellulitis, diabetic foot infection Narrative Course I have reviewed the patient's electronic medical record. Reviewed ID consultation from 2 weeks ago I gave him 2 g of IV vancomycin in his PICC line foreign exchange services manager is working on arranging the outpatient about abX Diagnosis Primary Impression: Osteomyelitis of right foot Qualified Code: M86.271 - Subacute osteomyelitis of right foot Departure Forms: Tests/Procedures Additional Instructions: The patient was advised to follow up with their physician and return if they worsen. Outpatient antibiotics as arranged by family independence case manager Med/Other Pt SpecificInfo: Other Disposition: 01 DISCHARGE HOME Condition: Stable William Mclaughlin MD April 22, 2017 12:37
[2017-04-22] MEDS ORDERED: VANCOMYCIN INJ 2,000 MG in SODIUM CHLOR 0.9% 250 ML INJ 250 ML IV ONE (12:45)
[2017-04-22] MEDS ORDERED: VANCOMYCIN INJ 2,000 MG in SODIUM CHLORID 0.9% 500 ML INJ 500 ML IV ONE (13:00)
== END 2017-04-22 15:54 | disposition home or self-care (01) ==
LOC: PHED 12:12
DX: M86.271 Subacute osteomyelitis, right ankle and foot (principal); I10 Essential (primary) hypertension; E11.8 Type 2 diabetes mellitus with unspecified complications; Z79.01 Long term (current) use of anticoagulants; Z79.4 Long term (current) use of insulin; Z95.828 Presence of other vascular implants and grafts; B96.89 Other specified bacterial agents as the cause of diseases classified elsewhere
CPT/HCPCS: 96365; 96366; 99284; J1642; J3370; J7040

== ENCOUNTER 2017-04-25 08:56 | Day surgery (SDC) | payer MEDICARE, OTHER ==
[~2017-04-25] VITALS: Ht 200.7 cm; Wt 102.3 kg
[2017-04-25] MEDS ORDERED: SODIUM CHLOR 0.9% 1000 ML IV SCH (09:00)
[2017-04-25] MEDS ORDERED: LANTUS2P SQ (09:17)
[2017-04-25 09:19] VITALS: BP 149/78; PULSE 75; RESP 20; TEMP 97.8; O2SAT 98
[2017-04-25] MEDS ORDERED: VANC1000P IV (09:22)
[2017-04-25] MEDS ORDERED: SODIUM CHLORIDE 0.9% FLUSH 10 ML FLUSH IV FLUSH SCH (09:30)
[2017-04-25] MEDS ORDERED: SODIUM CHLORIDE 0.9% FLUSH 10 ML FLUSH IV FLUSH PRN ×2 (09:30→10:00)
[2017-04-25] MEDS ORDERED: PICC PRN Heparin 100 units/ml Lock Flush IV FLUSH (10:00)
[2017-04-25] MEDS ORDERED: PICC PRN After Blood Draw NS Lock Flush IV FLUSH (10:00)
[2017-04-25] MEDS ORDERED: PICC HIT (ADULT) Q8H NS Lock Flush IV FLUSH PRN (10:00)
[2017-04-25] MEDS ORDERED: PICC HIT (ADULT) PRN NS Lock Flush IV FLUSH (10:00)
[2017-04-25] MEDS ORDERED: LIDOCAINE HCL 1% 20 ML VIAL ONE (11:39)
[2017-04-25] MEDS ORDERED: MIDAZOLAM HCL 2 MG/2 ML VIAL ONE (13:17)
[2017-04-25 13:30] VITALS: BP 147/84; PULSE 72; RESP 20; TEMP 98.4; O2SAT 96
[2017-04-25 13:35] VITALS: BP 147/84; PULSE 72; RESP 20; TEMP 98.4; O2SAT 96
[2017-04-25 13:45] VITALS: BP 160/91; PULSE 77; RESP 20; O2SAT 98
[2017-04-25 14:15] VITALS: BP 170/90; PULSE 76; RESP 20; O2SAT 98
[2017-04-25 14:45] VITALS: BP 155/80; PULSE 75; RESP 20; O2SAT 96
[2017-04-26] MEDS ORDERED: PICC Daily Heparin 100 unit/mL Lock Flush IV FLUSH SCH (09:00)
--- NOTE | 2017-04-27 10:45 | RADRPT ---
EXAM DATE/TIME: 04/27/2017 00:00 [facility] COMPARISON: CT CONSULTATION, April 05, 2017, 0:00. INDICATIONS : Left lung mass FINDINGS: Patient scheduled for right lung biopsy. Preliminary images show resolution of the previously identif ied right lung nodule. New pleural-based area of mildly increased activity posteriorly in the left olamide ng is nonspecific. However, considering the transient nature of the lung nodules, these are likely in flammatory/infectious. Patient does have a left adrenal nodule which shows moderate increased activity on PET imaging. Again , nonspecific. This could be worked up further with MRI. Alternatively, biopsy of the left adrenal co uld be performed for tissue evaluation. CONCLUSION: 1. Scheduled right lung biopsy was canceled. The nodule has resolved. 2. Left adrenal nodule though show moderate increased metabolic activity on PET imaging. Suggest eith er in phase and out of phase MRI versus adrenal biopsy for further evaluation. Srinivas Casillas MD on April 27, 2017 at 10:39 Board Certified Radiologist. This report was verified electronically.
== END 2017-04-25 16:00 | disposition home or self-care (01) ==
LOC: HROP 08:56 → HRIP 08:57 → HROP 16:00
DX: R91.8 Other nonspecific abnormal finding of lung field (principal); Z53.8 Procedure and treatment not carried out for other reasons; I10 Essential (primary) hypertension; K21.9 Gastro-esophageal reflux disease without esophagitis; E11.9 Type 2 diabetes mellitus without complications; D64.9 Anemia, unspecified; E78.00 Pure hypercholesterolemia, unspecified; F41.9 Anxiety disorder, unspecified
CPT/HCPCS: J2250; J3010; J7030

== ENCOUNTER 2017-06-16 16:27 | Inpatient (IN) | payer MEDICARE, OTHER ==
[2017-06-16] VITALS (7 sets, daily range): BP systolic 148–157; BP diastolic 64–81; PULSE 70–95; RESP 16–20; TEMP 98.3–98.5; O2SAT 97–98
[~2017-06-16] VITALS: Ht 200.7 cm; Wt 96.4 kg
[~2017-06-16 16:27] MED LIST changes: -CIPR250T52 PO; -EPIN1INJ21 IV PUSH; -EPIN1INJ21 SQ; +LANTUS2P SQ; -LEVEMIR SQ; -SPIRCAP INH; +VANC1000P IV; -VANC10IN IV; -XANA2TAB2 PO
--- NOTE | 2017-06-16 16:51 | PD ---
HPI Chief Complaint: Respiratory Symptoms Time Seen by Provider: 16:40 Travel History International Travel<30 days: No Contact w/Intl Traveler<30days: No Traveled to known affect area: No History of Present Illness HPI 57-year-old male with history of A. fib on Eliquis, diabetes, chronic osteomyelitis in the right foot, pulmonary nodules, here for evaluation of shortness of breath, hemoptysis, and hematemesis. Patient reports that he was drinking red colored sports drink, so he is unable to quantify the amount of blood, but he believes that there is blood in both his sputum as well as emesis. Symptoms started at around 4 to 4:30 this morning. Currently the patient states he feels a lot better. He is no longer short of breath. He reports that he had a fever or 102F at home and took a Tylenol for this. No TB risk factors. Reports similar episode in the past. Reports that he has pulmonary nodules, however biopsies have not feels malignancy. He also states that he is scheduled to have another surgery on his right foot in [place] in the next week. PFSH Past Medical History Hx Anticoagulant Therapy: Yes Autoimmune Disease: No Blood Disorders: No Anxiety: Yes Depression: No Heart Rhythm Problems: No Cancer: No Cardiovascular Problems: Yes High Cholesterol: Yes Chest Pain: No Congestive Heart Failure: No Cerebrovascular Accident: No Diabetes: Yes (TYPE 2 DIABETES) Diminished Hearing: No Endocrine: Yes Gastrointestinal Disorders: Yes GERD: Yes Genitourinary: No Headaches: No Hiatal Hernia: No Hypertension: Yes Immune Disorder: No Implanted Vascular Access Dvce: No Musculoskeletal: Yes (RIGHT FOOT ULCER) Neurologic: Yes (DIABETIC NEUROPATHY) Psychiatric: Yes Reproductive: No Respiratory: No Integumentary: Yes (diabetic foot ulcers for 15 years) Immunizations Current: Yes Migraines: No Seizures: No Thyroid Disease: No Ulcer: No Past Surgical History Abdominal Surgery: No AICD: No Arteriovenous Shunt: No Cardiac Surgery: Yes (TWO HEART ABLATIONS) Ear Surgery: No Endocrine Surgery: No Eye Surgery: No Genitourinary Surgery: No Gynecologic Surgery: No Insulin Pump: No Joint Replacement: No Neurologic Surgery: No Oral Surgery: Yes Pacemaker: No Thoracic Surgery: No Other Surgery: Yes ( SKIN GRAFTS, BILAT BIG TOES) Social History Alcohol Use: No Tobacco Use: No Substance Use: No Allergies-Medications (Allergen,Severity, Reaction): Coded Allergies: *MDRO Multi-Drug Resistant Organism (Verified Adverse Reaction, Unknown, MRSA, 06/16/17) MRSA (foot wound) - 02/12/15, 11/12/16, 03/29/17; (toe) - 03/2016 Reported Meds & Prescriptions Reported Meds & Active Scripts Active Walker/Adult/Folding (Device) 1 Mis Mis 1 Ea .ROUTE DIRECTED [place] (Hydrocodone-Acetaminophen) 7.5-325 mg Tab 1 Tab PO Q4H PRN Reported Lantus Inj (Insulin Glargine) 1,000 Unit/10 Ml Vial 30 Units SQ HS Eliquis (Apixaban) 5 Mg Tab 5 Mg PO BID Ramipril 5 Mg Cap 2.5 Mg PO BID Diltiazem ER 24 HR 240 Mg Brock 240 Mg PO DAILY Humalog Inj (Insulin Human Lispro) 1,000 Unit/10 Ml Vial 5-25 Units SQ ACHS Max dose at bedtime:( )units; sugars < 70,(0)units; sugars 150-199,(5)units; sugars 200-249,(10)units; sugars 250-299,(15)units; sugars 300-349,(20)units; sugars more than 349,(25)units. Furosemide 20 Mg Tab 20 Mg PO BID Protonix (Pantoprazole Sodium) 40 Mg Tab 40 Mg PO DAILY Review of Systems Except as stated in HPI: all other systems reviewed are Neg Physical Exam Narrative GENERAL: Well-developed, well-nourished, comfortable, no apparent distress. SKIN: Focused skin assessment warm/dry. HEAD: Atraumatic. Normocephalic. EYES: Pupils equal and round. No scleral icterus. No injection or drainage. ENT: Mucous membranes pink and moist. NECK: Trachea midline. No JVD. CARDIOVASCULAR: Regular rate and rhythm. No murmur appreciated. RESPIRATORY: No accessory muscle use. Clear to auscultation. Breath sounds equal bilaterally. GASTROINTESTINAL: Abdomen soft, non-tender, nondistended. MUSCULOSKELETAL: No obvious deformities. No clubbing. No cyanosis. Moderate bilateral lower extremity edema. Right foot with dressing that is clean, dry, intact. Patient reports that he change this dressing 2 hours ago. NEUROLOGICAL: Awake and alert. No obvious cranial nerve deficits. Motor grossly within normal limits. Normal speech. PSYCHIATRIC: Appropriate mood and affect; insight and judgment normal. Data Data Last Documented VS Vital Signs Date Time Temp Pulse Resp B/P Pulse Ox O2 Delivery O2 Flow Rate FiO2 06/16/17 18:49 73 148/64 97 06/16/17 16:31 98.3 16 Orders Complete Blood Count With Diff (06/16/17 16:47) Comprehensive Metabolic Panel (06/16/17 16:47) Prothrombin Time / Inr (Pt) (06/16/17 16:47) Act Partial Throm Time (Ptt) (06/16/17 16:47) Iv Access Insert/Monitor (06/16/17 16:47) Ecg Monitoring (06/16/17 16:47) Oximetry (06/16/17 16:47) Sodium Chloride 0.9% Flush (Ns Flush) (06/16/17 17:00) Electrocardiogram (06/16/17 16:47) B-Type Natriuretic Peptide (06/16/17 16:47) Ckmb (Isoenzyme) Profile (06/16/17 16:47) Troponin I (06/16/17 16:47) Chest, Single Ap (06/16/17 16:47) Ct Pulmonary Angiogram (06/16/17 16:47) Blood Culture (06/16/17 17:14) Ceftriaxone Inj (Rocephin Inj) (06/16/17 17:15) Azithromycin Inj (Zithromax Inj) (06/16/17 17:15) Iohexol 350 Inj (Omnipaque 350 Inj) (06/16/17 18:19) Oxycodone (Roxicodone) (06/16/17 18:45) Labs Laboratory Tests Test 06/16/17 17:20 White Blood Count 14.6 TH/MM3 Red Blood Count 3.61 MIL/MM3 Hemoglobin 9.0 GM/DL Hematocrit 27.5 % Mean Corpuscular Volume 76.1 FL Mean Corpuscular Hemoglobin 24.8 PG Mean Corpuscular Hemoglobin 32.7 % Concent Red Cell Distribution Width 12.9 % Platelet Count 300 TH/MM3 Mean Platelet Volume 6.5 FL Neutrophils (%) (Auto) 84.8 % Lymphocytes (%) (Auto) 7.3 % Monocytes (%) (Auto) 5.1 % Eosinophils (%) (Auto) 0.1 % Basophils (%) (Auto) 2.7 % Neutrophils # (Auto) 12.4 TH/MM3 Lymphocytes # (Auto) 1.1 TH/MM3 Monocytes # (Auto) 0.7 TH/MM3 Eosinophils # (Auto) 0.0 TH/MM3 Basophils # (Auto) 0.4 TH/MM3 CBC Comment AUTO DIFF Differential Comment AUTO DIFF CONFIRMED Platelet Estimate NORMAL Platelet Morphology Comment NORMAL Rouleau PRESENT Red Cell Morphology Comment NORMAL Prothrombin Time 12.7 SEC Prothromb Time International 1.1 RATIO Ratio Activated Partial 36.4 SEC Thromboplast Time Sodium Level 134 MEQ/L Potassium Level 3.6 MEQ/L Chloride Level 101 MEQ/L Carbon Dioxide Level 25.9 MEQ/L Anion Gap 7 MEQ/L Blood Urea Nitrogen 13 MG/DL Creatinine 0.69 MG/DL Estimat Glomerular Filtration 118 ML/MIN Rate Random Glucose 231 MG/DL Calcium Level 7.8 MG/DL Total Bilirubin 0.3 MG/DL Aspartate Amino Transf 18 U/L (AST/SGOT) Alanine Aminotransferase 15 U/L (ALT/SGPT) Alkaline Phosphatase 142 U/L Total Creatine Kinase 76 U/L Troponin I 0.07 NG/ML B-Type Natriuretic Peptide 206 PG/ML Total Protein 7.9 GM/DL Albumin 2.5 GM/DL [facility] Medical Decision Making Medical Screen Exam Complete: Yes Emergency Medical Condition: Yes Differential Diagnosis Bronchitis, pneumonia, PE, hemoptysis, hematemesis, peptic ulcer disease, gastritis, pulmonary edema Narrative Course Vital signs reviewed. CBC shows WBC 14.6, hemoglobin 9, hematocrit 27.5, platelets 300, neutrophils 85 %. CMP is remarkable for random glucose 231, otherwise essentially unremarkable. Troponin is 0.07. BNP is 206. Chest x-ray: Consolidation throughout the right lung. CT pulmonary angiogram: No PE. Right lung consolidation greatest in the right upper lobe. Patient was made aware of all findings. He was started on IV Rocephin and IV azithromycin. Case discussed with [facility] hospitalist OLIVER Wilson. Patient will be admitted to their service under Dr. Ybarra. Diagnosis Primary Impression: Pneumonia Qualified Code: J18.9 - Pneumonia of right lung due to infectious organism, unspecified part of lung Additional Impression: Hemoptysis Admitting Information Admitting Physician Requests: Admit Barry Parmar MD Jun 16, 2017 16:51
[2017-06-16] MEDS ORDERED: SODIUM CHLORIDE 0.9% FLUSH 10 ML FLUSH IV FLUSH PRN ×2 (17:00→19:00)
--- NOTE | 2017-06-16 17:13 | RADRPT ---
EXAM DATE/TIME: 06/16/2017 16:55 [facility] COMPARISON: No previous studies available for comparison. INDICATIONS : Short of breath, cough, coughing up blood MEDICAL HISTORY : Diabetes mellitus type II. SURGICAL HISTORY : Cardiac ablation ENCOUNTER: Initial ACUITY: 1 day PAIN SCORE: 0/10 LOCATION: Bilateral chest FINDINGS: A single view of the chest demonstrates consolidation throughout the right lung. Left lung relatively clear. Heart normal in size. Osseous structures are intact. CONCLUSION: Consolidation throughout the right lung. Dawood Donnelly MD on June 16, 2017 at 17:11 Board Certified Radiologist. This report was verified electronically.
[2017-06-16] MEDS ORDERED: AZITHROMYCIN INJ 500 MG in SODIUM CHLOR 0.9% 250 ML INJ 250 ML IV ONE (17:15)
[2017-06-16] MEDS ORDERED: cefTRIAXone INJ 1,000 MG in SODIUM CHLORIDE 0.9% INJ 100 ML IV ONE (17:15)
[2017-06-16 17:34] LABS: AUTOMATED NEUTROPHIL # 12.4 TH/MM3 (1.8-7.7); BASOPHIL # 0.4 TH/MM3 (0-0.2); BASOPHIL % 2.7 % (0.0-2.0); EOSINOPHIL % 0.1 % (0.0-4.0); HEMATOCRIT 27.5 % (39.0-51.0); LYMPH % 7.3 % (9.0-44.0); LYMPHOCYTE # 1.1 TH/MM3 (1.0-4.8); MEAN CELL VOLUME 76.1 FL (80.0-100.0); MEAN CORPUSCULAR HEMOGLOBIN 24.8 PG (27.0-34.0); MEAN CORPUSCULAR HGB CONC 32.7 % (32.0-36.0); MONO % 5.1 % (0.0-8.0); NEUT % 84.8 % (16.0-70.0); PLATELET COUNT 300 TH/MM3 (150-450); RED BLOOD COUNT 3.61 MIL/MM3 (4.50-5.90); RED CELL DISTRIBUTION WIDTH 12.9 % (11.6-17.2); WHITE BLOOD COUNT 14.6 TH/MM3 (4.0-11.0)
[2017-06-16 17:35] LABS: HEMO FLAGS AUTO DIFF
[2017-06-16 17:45] LABS: CHLORIDE 101 MEQ/L (98-107); POTASSIUM 3.6 MEQ/L (3.5-5.1); SODIUM (NA) 134 MEQ/L (136-145)
[2017-06-16 17:49] LABS: ANION GAP 7 MEQ/L (5-15); APTT (PATIENT) 36.4 SEC (24.3-30.1); BICARBONATE 25.9 MEQ/L (21.0-32.0); BLOOD UREA NITROGEN 13 MG/DL (7-18); INTERNATIONAL NORMALIZED RATIO 1.1 RATIO; PROTHROMBIN TIME - PATIENT 12.7 SEC (9.8-11.6)
[2017-06-16 17:52] LABS: ALT (GPT) 15 U/L (12-78); AST (GOT) 18 U/L (15-37); GLOMERULAR FILTRATION RATE 118 ML/MIN (>89)
[2017-06-16 17:53] LABS: TOTAL BILIRUBIN ADULT 0.3 MG/DL (0.2-1.0)
[2017-06-16 17:54] LABS: ALKALINE PHOSPHATASE 142 U/L (45-117)
[2017-06-16 17:58] LABS: PLATELET ESTIMATE SMEAR NORMAL (NORMAL); PLATELET MORPHOLOGY NORMAL (NORMAL); ROULEAUX PRESENT (NORMAL); SCAN/DIFF AUTO DIFF CONFIRMED
[2017-06-16 18:00] LABS: CREATINE KINASE 76 U/L (39-308)
[2017-06-16] MEDS ORDERED: IOHEXOL 350 MG/ML 10 ML VIAL (for RAD DIAG) IV ONE (18:19)
--- NOTE | 2017-06-16 18:26 | RADRPT ---
EXAM DATE/TIME: 06/16/2017 17:59 [facility] COMPARISON: No previous studies available for comparison. INDICATIONS : Shortness of breath, coughing up blood. IV CONTRAST: 75 cc Omnipaque 350 (iohexol) IV RADIATION DOSE: 18.56 CTDIvol (mGy) MEDICAL HISTORY : Diabetes mellitus type 2. Cardiovascular disease MRSA foot SURGICAL HISTORY : Stents in heart. ENCOUNTER: Initial ACUITY: 1 day PAIN SCALE: 2/10 LOCATION: Bilateral chest TECHNIQUE: Volumetric scanning of the chest was performed using a pulmonary embolism protocol MIP images were re constructed. Using automated exposure control and adjustment of the mA and/or kV according to patien t size, radiation dose was kept as low as reasonably achievable to obtain optimal diagnostic quality images. DICOM format image data is available electronically for review and comparison. Follow-up recommendations for incidentally detected pulmonary nodules are based at a minimum on nodul e size and patient risk factors according to Fleischner Society Guidelines. FINDINGS: PULMONARY ARTERIES: No filling defects are seen in the pulmonary arteries through the segmental level. LUNGS: There is extensive patchy consolidation throughout the right upper lobe and to a lesser degree in the right lower lobe and right middle lobe. Left lung relatively clear although small nodule seen within the posterior left upper lobe. PLEURAE: There is no pleural thickening or pleural effusion. MEDIASTINUM: There is good visualization of the great vessels of the middle mediastinum. No evidence of mediastin al or hilar adenopathy/mass. MUSCULOSKELETAL: Within normal limits for patient age. MISCELLANEOUS: The visualized upper abdominal organs demonstrate no acute abnormality. CONCLUSION: 1. No evidence for pulmonary embolism. 2. Extensive patchy consolidation throughout the right lung but greatest in the right upper lobe. Dawood Donnelly MD on June 16, 2017 at 18:19 Board Certified Radiologist. This report was verified electronically.
[2017-06-16] MEDS ORDERED: SENNOSIDES 8.6 MG TAB PO PRN (19:00)
[2017-06-16] MEDS ORDERED: GLUCAGON 1 MG/ML VIAL OTHER PRN (19:00)
[2017-06-16] MEDS ORDERED: MAGNESIUM HYDROXIDE SUSP 30 ML CUP PO PRN (19:00)
[2017-06-16] MEDS ORDERED: ACETAMINOPHEN 325 MG TAB PO PRN (19:00)
[2017-06-16] MEDS ORDERED: BISACODYL 10 MG SUPP RECTAL PRN (19:00)
[2017-06-16] MEDS ORDERED: RESP: ALBUTEROL 2.5 MG/IPRATROPIUM 0.5 MG NEB (PRN) NEB (19:00)
[2017-06-16] MEDS ORDERED: DEXTROSE 50% IN WATER 50 ML VIAL(D50) IV PRN (19:00)
[2017-06-16] MEDS ORDERED: LACTULOSE SYRUP 20 GM/30 ML CUP PO PRN (19:00)
[2017-06-16] MEDS ORDERED: ONDANSETRON HCL 4 MG/2 ML VIAL IVP PRN (19:00)
[2017-06-16] MEDS ORDERED: NALOXONE HCL 0.4 MG/ML AMP IV PRN (19:00)
[2017-06-16] MEDS: RESP: ALBUTEROL 2.5 MG/IPRATROPIUM 0.5 MG NEB (SCH) NEB (19:31)
[2017-06-16] MEDS: APIXABAN 5 MG TABLET PO SCH (22:32)
[2017-06-16] MEDS: DOCUSATE SODIUM 50 MG/SENNA 8.6 MG TAB PO SCH (22:32)
[2017-06-16] MEDS: FUROSEMIDE 20 MG TAB PO SCH (22:33)
[2017-06-16] MEDS: SODIUM CHLORIDE 0.9% FLUSH 10 ML FLUSH IV FLUSH SCH (22:33)
[2017-06-16] MEDS: INSULIN ASPART SUPPLEMENTAL SCALE SQ SCH (22:38)
[2017-06-16] MEDS: INSULIN DETEMIR 100 UNITS/ML VIAL SQ SCH (22:38)
[2017-06-16] MEDS: RAMIPRIL 2.5 MG CAP PO SCH (23:10)
[2017-06-16] MEDS: ACETAMINOPHEN/HYDROcodone 325 MG/5 MG TAB PO PRN (23:10)
[2017-06-17] VITALS: BP 141/67; PULSE 64; RESP 20; TEMP 96; O2SAT 98
[2017-06-17 04:00] VITALS: BP 163/88; PULSE 69; RESP 20; TEMP 96.8; O2SAT 100
[2017-06-17] MEDS: ACETAMINOPHEN/HYDROcodone 325 MG/5 MG TAB PO PRN ×2 (04:40→08:51)
[2017-06-17 06:36] LABS: AUTOMATED NEUTROPHIL # 5.7 TH/MM3 (1.8-7.7); BASOPHIL % 0.4 % (0.0-2.0); EOSINOPHIL # 0.1 TH/MM3 (0-0.4); EOSINOPHIL % 0.9 % (0.0-4.0); HEMATOCRIT 28.6 % (39.0-51.0); HEMO FLAGS DIFF FINAL; LYMPH % 14.5 % (9.0-44.0); LYMPHOCYTE # 1.1 TH/MM3 (1.0-4.8); MEAN CELL VOLUME 77.1 FL (80.0-100.0); MEAN CORPUSCULAR HEMOGLOBIN 25.3 PG (27.0-34.0); MEAN CORPUSCULAR HGB CONC 32.8 % (32.0-36.0); MONO % 7.8 % (0.0-8.0); NEUT % 76.4 % (16.0-70.0); PLATELET COUNT 272 TH/MM3 (150-450); RED BLOOD COUNT 3.71 MIL/MM3 (4.50-5.90); RED CELL DISTRIBUTION WIDTH 13.2 % (11.6-17.2); WHITE BLOOD COUNT 7.5 TH/MM3 (4.0-11.0)
[2017-06-17] MEDS: INSULIN ASPART SUPPLEMENTAL SCALE SQ SCH ×4 (06:38→21:00)
[2017-06-17 06:57] LABS: POTASSIUM 3.5 MEQ/L (3.5-5.1)
[2017-06-17 07:11] LABS: BICARBONATE 27.4 MEQ/L (21.0-32.0)
[2017-06-17] MEDS: RESP: ALBUTEROL 2.5 MG/IPRATROPIUM 0.5 MG NEB (SCH) NEB ×2 (07:41→11:10)
[2017-06-17 08:00] VITALS: BP 165/83; PULSE 74; RESP 18; TEMP 97.1; O2SAT 100
[2017-06-17] MEDS: FUROSEMIDE 20 MG TAB PO SCH ×2 (08:12→21:12)
[2017-06-17] MEDS: RAMIPRIL 2.5 MG CAP PO SCH ×2 (08:12→21:12)
[2017-06-17] MEDS: APIXABAN 5 MG TABLET PO SCH (08:12)
[2017-06-17] MEDS: DOCUSATE SODIUM 50 MG/SENNA 8.6 MG TAB PO SCH ×2 (08:12→21:12)
[2017-06-17] MEDS: PANTOPRAZOLE SOD 40 MG DELAYED RELEASE TAB PO SCH (08:12)
[2017-06-17] MEDS: DILTIAZEM-CD 240 MG CAP ER PO SCH (08:12)
[2017-06-17] MEDS: SODIUM CHLORIDE 0.9% FLUSH 10 ML FLUSH IV FLUSH SCH ×2 (08:13→21:11)
--- NOTE | 2017-06-17 11:50 | MH ---
cc: LAST SILVESTRE MD DATE OF ADMISSION: 06/16/2017 CHIEF COMPLAINT: Cough, shortness of breath. HISTORY OF PRESENT ILLNESS This is a 57 year-old male with a past medical-surgical history significant for atrial fibrillation, diabetes mellitus, chronic osteomyelitis in the right foot, pulmonary nodule, diabetic neuropathy, history of heart ablation x2, skin graft bilateral big toe, came to the ER at [facility], complaining of shortness of breath, hemoptysis. The patient reports he was drinking red colored sports drink and he is unable to quantify the amount of the blood but he believed that there is blood in sputum as well as emesis, and the symptoms started around 4:30 p.m. yesterday but the patient feels a lot better. He is no longer short of breath. He has subjective fever, 102 at home and took a Tylenol for this. He had a similar episode in the past. He has a pulmonary nodule but biopsy did not reveal any malignancy. The patient is going to have another surgery in the right foot next week. Other than that, nothing significant. PAST MEDICAL HISTORY, PAST SURGICAL HISTORY: As dictated above. SOCIAL HISTORY: Denies smoking, drinking or taking drugs. He lives at home. FAMILY HISTORY: Nothing significant. ALLERGIES NO KNOWN DRUG ALLERGIES. MEDICATIONS Include: 1. [place] 7.5 / 325 p.o. q.4 h p.r.n. pain. 2. Lantus 30 units subcutaneous. 3. Eliquis 5 milligrams twice a day. 4. Ramipril 2.5 milligrams twice a day. 5. Diltiazem 240 milligrams p.o. daily. 6. Furosemide 20 milligrams twice a day. 7. Protonix 40 milligrams p.o. daily. REVIEW OF SYSTEMS: All review of systems are negative except calf and right foot ulcer. PHYSICAL EXAMINATION: This is a 57 year-old male sitting on the bed, in no acute distress. VITAL SIGNS: Temperature 97.1, heart rate 74, respiratory rate 18, blood pressure 165/83, O2 saturation 100% on room air. HEENT: Normocephalic, atraumatic, EOMI. PERRL. Oral mucosa moist. Neck: Supple. No visible thyromegaly or neck mass. Trachea central. CV: Regular rate and rhythm. Respirations: Clear to auscultation bilaterally. Abdomen: Soft, nontender. Bowel sounds audible. Extremities: Shows wound on the right foot at the bottom area, 43 cm rounded with no erythema. Neuro: Awake, alert, oriented x4. No focal deficits. Skin: Shows wound on the right lower extremity. Psych: The patient is cooperative. LABORATORY DATA Include CBC is totally unremarkable except for WBC count was 14.6 now it is 7.5, hemoglobin was 9.0, now it is 9.4, hematocrit was 27.5 now it is 28.6. Platelet count was 272, normal. BMP totally unremarkable except for creatinine 0.51 low, calcium 8.3 low, creatine kinase is low 33, troponin-I is 0.07, 0.12, 0.07, BNP 206 high, total protein 7.9, albumin 2.5, PT 12.7, INR 1.1, APTT 36.4. Chest x-ray was done shows consolidation throughout the right lung. CT angio done shows no evidence of pulmonary embolism, extensive patchy consolidation throughout the right lung with greater in the right upper low. Blood cultures x2 done, negative so far. Sputum culture done, report is still pending. ASSESSMENT/PLAN 1. This is 57 year-old male who came to the emergency room with a diagnosis of pneumonia. The patient is on Zithromax 500 milligrams IV daily and Rocephin 1 gram IV daily. 2. Pulmonary consulted. Further recommendation per pulmonary. 3. History of diabetes mellitus, ADA diet. NovoLog low-dose sliding scale. Check blood sugars at bedtime, monitor blood sugar. 4. Diabetic foot ulcer. Continue home medication. 5. GERD. Protonix 40 milligrams p.o. daily. 6. Constipation. Continue home medication. 7. History of atrial fibrillation. Rate control. The patient is on Eliquis 5 milligrams twice a day and diltiazem 240 milligrams p.o. daily. 8. History of hypertension. Continue home medications. 9. DVT prophylaxis. The patient is on Eliquis. 10. GI prophylaxis, Protonix 40 mg p.o. daily. We are going to manage the patient on a daily basis and will make recommendations on a daily basis. Last Silvestre MD EA/LELE /10:42 AM /11:37 AM
[2017-06-17 12:00] VITALS: BP 125/70; PULSE 69; RESP 19; TEMP 97; O2SAT 100
[2017-06-17] MEDS: ACETAMINOPHEN/HYDROcodone 325 MG/7.5 MG TAB PO PRN ×2 (13:10→18:25)
[2017-06-17] MEDS ORDERED: LORazepam 2 MG/ML VIAL IV PUSH PRN (15:45)
[2017-06-17 16:00] VITALS: BP 147/80; PULSE 60; RESP 18; TEMP 97; O2SAT 99
[2017-06-17] MEDS: cefTRIAXone INJ 1,000 MG in SODIUM CHLORIDE 0.9% INJ 100 ML IV SCH (16:24)
--- NOTE | 2017-06-17 16:26 | MB ---
cc: Deuce SYLVESTER M.D., R. STEVEN DATE OF CONSULTATION: 06/17/2017 REASON FOR CONSULTATION: HISTORY OF PRESENT ILLNESS: Mr. Sandoval is a 57-year-old white male with a history of hemoptysis and some pulmonary nodules in his lung who first presented here in January of this year and was seen by Dr. Sylvester. He was bronchoscoped at that time and cultures and cytologies were negative. The patient states that he had an additional biopsy after that; I am not sure where that was or when, and he was not specific, but again he was told there was no malignancy. Apparently he saw Dr. Sylvester one time after that and was then lost to followup. He is in chronic atrial fibrillation. He is on Eliquis routinely. He came back to the emergency room today because he had recurrent hemoptysis. CT scan of his chest revealed no evidence of thromboembolism but now he has patchy consolidation throughout the right upper lobe, the superior segment of the lower lobe and the middle lobe. This is progression when compared to previous. He has had no hemoptysis here in the hospital but from his description, it sounds like he had a fair amount of blood in his sputum over the last 24-48 hours. He really has not had notable fever, night sweats, purulent sputum prior to this event. His appetite has been down though and he says he has lost 100 pounds. He is rather vague in his descriptions of the symptoms. He has had no chest pain. He has chronic edema in his legs. He is diabetic and has had a history of osteomyelitis. He is not aware of current activity with that and has not seen a tie maker recently. PAST MEDICAL HISTORY: 1. Diabetes. 2. Chronic atrial fibrillation. 3. Hypertension. 4. Gastroesophageal reflux disease (GERD). 5. Chronic foot ulcers, probably related to his diabetes. 6. Previous amputation of a right toe. SOCIAL HISTORY: No excessive alcohol use. Has not been a regular smoker. 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 ALLERGIES: None known. FAMILY HISTORY: Father of mesothelioma and had previous asbestos exposure. The patient probably had this exposure as a child as well. MEDICATIONS: Medications are reviewed and recorded. PHYSICAL EXAMINATION: VITAL SIGNS: 97 degrees, pulse is 70, respirations 16 to 18, sat is 98% on room air. HEAD, EYES, EARS, NOSE, THROAT: The sclerae are nonicteric. NECK: The neck veins are flat. No palpable adenopathy in the neck or supraclavicular regions. CHEST: Actually fairly clear. There is no congestion or wheezing. A few scattered rales, right greater than left. HEART: Irregular heart rhythm. No harsh murmur. No audible S3. ABDOMEN: Soft. EXTREMITIES: Chronic venous stasis changes with 1 to 2+ edema in his legs. No cyanosis or clubbing. IMAGING STUDIES: CT scan is as noted above. LABORATORY STUDIES: White count is 7500. BUN is 9 with a creatinine of 0.5. BNP is 206. Coagulation profile is negative. DISCUSSION: Mr. Sandoval presents with recurrent hemoptysis and more extensive pulmonary infiltrates in the right lung now. He really has very few symptoms to suggest that this is pneumonia. I am concerned that he may actually have an underlying malignancy in light of the weight loss and the gradual progression of this process from January until the present. Blood cultures have been negative. Sputum culture is pending. He is afebrile. Will continue the antibiotics at the present time and I will review this with Dr. Sylvester tomorrow, who will see the patient in follow up. Will continue his nebulizer treatments just as needed since he is a nonsmoker and has normal room air saturations and is in no distress and will hold the Eliquis at the present time because of the hemoptysis. R. MD PIERRE Blanco/KATHY /4:08 PM /4:20 PM
[2017-06-17 20:00] VITALS: BP 138/77; PULSE 70; RESP 20; TEMP 97.3; O2SAT 99
[2017-06-17] MEDS: AZITHROMYCIN INJ 500 MG in SODIUM CHLOR 0.9% 250 ML INJ 250 ML IV SCH (21:11)
[2017-06-17] MEDS: INSULIN DETEMIR 100 UNITS/ML VIAL SQ SCH (21:19)
[2017-06-18] VITALS: BP 121/65; PULSE 71; RESP 20; TEMP 97.8; O2SAT 100
[2017-06-18] MEDS: INSULIN ASPART SUPPLEMENTAL SCALE SQ SCH ×4 (06:48→21:00)
[2017-06-18 06:52] LABS: AUTOMATED NEUTROPHIL # 4.8 TH/MM3 (1.8-7.7); BASOPHIL % 0.6 % (0.0-2.0); EOSINOPHIL # 0.2 TH/MM3 (0-0.4); EOSINOPHIL % 3.1 % (0.0-4.0); HEMATOCRIT 28.3 % (39.0-51.0); LYMPH % 14.5 % (9.0-44.0); LYMPHOCYTE # 0.9 TH/MM3 (1.0-4.8); MEAN CELL VOLUME 77.5 FL (80.0-100.0); MEAN CORPUSCULAR HEMOGLOBIN 24.6 PG (27.0-34.0); MEAN CORPUSCULAR HGB CONC 31.8 % (32.0-36.0); MONO % 9.5 % (0.0-8.0); NEUT % 72.3 % (16.0-70.0); PLATELET COUNT 276 TH/MM3 (150-450); RED BLOOD COUNT 3.66 MIL/MM3 (4.50-5.90); RED CELL DISTRIBUTION WIDTH 13.1 % (11.6-17.2); WHITE BLOOD COUNT 6.5 TH/MM3 (4.0-11.0)
[2017-06-18 07:01] LABS: CHLORIDE 106 MEQ/L (98-107); HEMO FLAGS AUTO DIFF; POTASSIUM 3.7 MEQ/L (3.5-5.1); SODIUM (NA) 141 MEQ/L (136-145)
[2017-06-18 07:06] LABS: ANION GAP 6 MEQ/L (5-15); BICARBONATE 29.4 MEQ/L (21.0-32.0); BLOOD UREA NITROGEN 14 MG/DL (7-18)
[2017-06-18 07:09] LABS: ALT (GPT) 14 U/L (12-78); AST (GOT) 20 U/L (15-37); GLOMERULAR FILTRATION RATE 111 ML/MIN (>89)
[2017-06-18 07:11] LABS: TOTAL BILIRUBIN ADULT 0.2 MG/DL (0.2-1.0)
[2017-06-18 07:12] LABS: ALKALINE PHOSPHATASE 120 U/L (45-117)
[2017-06-18 07:27] LABS: ROULEAUX PRESENT (NORMAL); SCAN/DIFF AUTO DIFF CONFIRMED
[2017-06-18] MEDS: PANTOPRAZOLE SOD 40 MG DELAYED RELEASE TAB PO SCH (07:55)
[2017-06-18] MEDS: DILTIAZEM-CD 240 MG CAP ER PO SCH (07:55)
[2017-06-18] MEDS: RAMIPRIL 2.5 MG CAP PO SCH ×2 (07:55→21:00)
[2017-06-18] MEDS: FUROSEMIDE 20 MG TAB PO SCH ×2 (07:56→21:11)
[2017-06-18] MEDS: DOCUSATE SODIUM 50 MG/SENNA 8.6 MG TAB PO SCH ×2 (07:56→21:11)
[2017-06-18] MEDS: ACETAMINOPHEN/HYDROcodone 325 MG/7.5 MG TAB PO PRN ×2 (07:57)
[2017-06-18] MEDS: SODIUM CHLORIDE 0.9% FLUSH 10 ML FLUSH IV FLUSH SCH ×2 (07:58→21:00)
[2017-06-18 08:00] VITALS: BP 165/89; PULSE 75; RESP 21; TEMP 98.3; O2SAT 97
[2017-06-18] MEDS ORDERED: OXYC30TA PO (08:20)
--- NOTE | 2017-06-18 08:29 | HHI.PR ---
Subjective History of Present Illness Patient feel better SOB / Hemoptysis better no acute issue d/w LUCIUS Spann Review of Systems Constitutional Constitutional: Fatigue, Weakness Pulmonary Respiratory: Coughing, Shortness of Breath Pulmonary Remarks Hemoptysis. Vitals/Results Intake & Output 06/17/17 06/17/17 06/18/17 15:00 23:00 07:00 Intake Total 960 ml 970 ml Balance 960 ml 970 ml Intake Oral 960 ml 720 ml IV Total 250 ml # Voids 4 2 # Bowel Movements 1 Vital Signs Vital Signs Date Time Temp Pulse Resp B/P Pulse Ox O2 Delivery O2 Flow Rate FiO2 06/18/17 08:00 98.3 75 21 165/89 97 06/18/17 01:00 18 06/18/17 00:00 97.8 71 20 121/65 100 06/17/17 20:00 97.3 70 20 138/77 99 06/17/17 16:00 97.0 60 18 147/80 99 06/17/17 12:00 97.0 69 19 125/70 100 CBC/BMP: 06/18/17 0612 06/18/17 0612 Lab Results Laboratory Tests Test 06/18/17 06:12 White Blood Count 6.5 TH/MM3 Red Blood Count 3.66 MIL/MM3 Hemoglobin 9.0 GM/DL Hematocrit 28.3 % Mean Corpuscular Volume 77.5 FL Mean Corpuscular Hemoglobin 24.6 PG Mean Corpuscular Hemoglobin 31.8 % Concent Red Cell Distribution Width 13.1 % Platelet Count 276 TH/MM3 Mean Platelet Volume 6.7 FL Neutrophils (%) (Auto) 72.3 % Lymphocytes (%) (Auto) 14.5 % Monocytes (%) (Auto) 9.5 % Eosinophils (%) (Auto) 3.1 % Basophils (%) (Auto) 0.6 % Neutrophils # (Auto) 4.8 TH/MM3 Lymphocytes # (Auto) 0.9 TH/MM3 Monocytes # (Auto) 0.6 TH/MM3 Eosinophils # (Auto) 0.2 TH/MM3 Basophils # (Auto) 0.0 TH/MM3 CBC Comment AUTO DIFF Differential Comment AUTO DIFF CONFIRMED Rouleau PRESENT Red Cell Morphology Comment NORMAL Sodium Level 141 MEQ/L Potassium Level 3.7 MEQ/L Chloride Level 106 MEQ/L Carbon Dioxide Level 29.4 MEQ/L Anion Gap 6 MEQ/L Blood Urea Nitrogen 14 MG/DL Creatinine 0.73 MG/DL Estimat Glomerular Filtration 111 ML/MIN Rate Random Glucose 110 MG/DL Calcium Level 8.2 MG/DL Total Bilirubin 0.2 MG/DL Aspartate Amino Transf 20 U/L (AST/SGOT) Alanine Aminotransferase 14 U/L (ALT/SGPT) Alkaline Phosphatase 120 U/L Total Protein 7.4 GM/DL Albumin 2.3 GM/DL Physical Exam General General Appearance: No Acute Distress, Comfortable Eyes Eye Exam: Pupils Equal, Pupils Reactive, Sclera White, Extraocular Movement Intact Throat Throat Exam: Oral Mucosa [place] & Moist, Oral Pharynx Normal Neck Neck Exam: Neck Supple, Trachea Midline Pulmonary Resp Exam: Breath Sounds Equal, No Distress, Decreased Bases, Diminished Breath Sounds Cardiology CV Exam: Regular, Normal Sinus Rhythm Gastrointestinal/Abdomen GI Exam: Soft, Non-Tender, Bowel Sounds Present Musculoskeletal MS Exam: Normal Tone Integumentary Skin Exam: Warm, Dry Neurologic Neuro Exam: Alert, Awake, Oriented, Speech Clear, Moving All Extremities, No Focal Deficits Psychiatric Psych Exam: Appropriate Responses VTE Prophylaxis VTE Remarks Eliquis. PUD Prophylasis PUD Prophylaxis: Protonix Assessment/Plan Assessment/Plan ASSESSMENT/PLAN 1. This is 57 year-old male who came to the emergency room with a diagnosis of pneumonia. The patient is on Zithromax 500 milligrams IV daily and Rocephin 1 gram IV daily. Pulmonary input noted. Further recommendation per pulmonary. 2. History of diabetes mellitus, ADA diet. NovoLog low-dose sliding scale. Check blood sugars at bedtime, monitor blood sugar. 3. Diabetic foot ulcer. Continue home medication. consult wound care. 4. GERD. Protonix 40 milligrams p.o. daily. 5. Constipation. Continue home medication. 6. History of atrial fibrillation. Rate control. The patient was on Eliquis 5 milligrams twice a day holding because of hemoptysis and diltiazem 240 milligrams p.o. daily. 7. History of hypertension. Continue home medications. 8. DVT prophylaxis. The patient is on Eliquis. 9. GI prophylaxis, Protonix 40 mg p.o. daily. 10. Leukocytosis resolved. We are going to manage the patient on a daily basis and will make recommendations on a daily basis. Check CBC with diff CMP in AM. Discussed Condition with: Patient Last Ybarra MD Jun 18, 2017 08:29
[2017-06-18 12:00] VITALS: BP 143/85; PULSE 77; RESP 18; TEMP 98; O2SAT 96
--- NOTE | 2017-06-18 14:13 | EKG ---
Date Performed: 06/16/2017 Time Performed: 22:31:07 PTAGE: 57 years EKG: Sinus rhythm WITH FIRST DEGREE AV BLOCK PROLONGED QT INTERVAL Prolonged QTc interval Nonspecific ST-T wave change s ABNORMAL ECG PREVIOUS TRACING : 06/16/2017 16.54 DOCTOR: Tobin Young Interpretating Date/Time 06/18/2017 14:11:50
--- NOTE | 2017-06-18 14:13 | EKG ---
Date Performed: 06/16/2017 Time Performed: 16:54:37 PTAGE: 57 years EKG: Sinus rhythm MODERATE INTRAVENTRICULAR CONDUCTION DELAY NONSPECIFIC ST & T-WAVE ABNORMALITY BORDERLINE ECG PREVIOUS TRACING : 11/25/2016 09.52 Compared to prior tracing no significant change DOCTOR: Tobin Young Interpretating Date/Time 06/18/2017 14:11:31
--- NOTE | 2017-06-18 14:14 | EKG ---
Date Performed: 06/17/2017 Time Performed: 05:02:18 PTAGE: 57 years EKG: Sinus rhythm WITH FIRST DEGREE AV BLOCK NONSPECIFIC T-WAVE ABNORMALITY ABNORMAL ECG PREVIOUS TRACING : 06/16/2017 22.31 Compared to prior tracing no significant change DOCTOR: Tobin Young Interpretating Date/Time 06/18/2017 14:11:58
[2017-06-18 16:00] VITALS: BP 138/75; PULSE 66; RESP 17; O2SAT 99
[2017-06-18] MEDS: cefTRIAXone INJ 1,000 MG in SODIUM CHLORIDE 0.9% INJ 100 ML IV SCH (17:53)
[2017-06-18 20:00] VITALS: BP 136/73; PULSE 72; RESP 20; TEMP 97.5; O2SAT 98
[2017-06-18] MEDS: AZITHROMYCIN INJ 500 MG in SODIUM CHLOR 0.9% 250 ML INJ 250 ML IV SCH (20:00)
--- NOTE | 2017-06-18 20:17 | PD.WCN.NOT ---
Wound Consult Description: R foot plantar surface wound , R second toe abrasion, L heel wound, L plantar surface fissure. Communicated with: LUCIUS Cooper and Doctor Last Ybarra Recommendation: Please cleanse wound to R foot plantar surface with wound cleanser and apply Maxorb AG (calcium alginate AG) to wound bed cover wound with dry 4x4 gauze pads and secure with rolled gauze and tape Change every 2 days or PRN if saturated or dislodged Please cleanse wound to L proximal heel, L foot plantar surface fissure, and R second toe abrasion with wound cleanser and pat dry.Apply single layer Xeroform gauze just over wound bed and cover with dry 4x4 gauze pads secured with rolled gauze and tape change every other day or PRN if saturated or dislodged Please apply lac hydrin lotion to bilateral feet daily. If patient not discharged patient needs podiatry consult Additional Information: Patient seen on 3rd floor [facility] for evaluation of R foot plantar surface wound . Patient also noted with L proximal heel wound, L plantar surface fissure and R second toe plantar surface abrasion. Patient states," This wound on my foot came from tape being ripped off."Removed bordered gauze dressing in place over R foot plantar surface reveal a diabetic foot ulcer. Foot ulcer presents with even wound margins with pale red non granulation tissue in wound bed. Wound is noted with no active drainage. Old dressing is noted moderate amount of serous drainage without odor. Periwound is noted with maceration from 7 to 10 o'clock with hyperkeratotic tissue noted between 11 and 6 o'clock. Wound measures ~5cm x ~5 cm x ~1cm . Cleansed wound with normal saline and applied Maxorb AG just over wound bed and covered with dry 4 x4 gauze pads and secure with rolled gauze with tape. Wound to L proximal heel measures ~1cmx ~2cm x ~0.1 cm. Tissue in wound bed is 100% pale pink with no active drainage. Periwound is unremarkable.Cleansed wound with wound cleanser and applied Xeroform gauze in single layer just over wound bed and covered with dry non stick dressing and secured with rolled gauze and tape. L Foot fissure is noted with 100% pink tissue and dry wound bed. Wound measures ~3 cm x ~0.2 cm x ~0.1cm. Wound has no active drainage. Cleansed wound with wound cleanser and applied Xeroform gauze in single layer just over wound bed and covered with bordered gauze and secured with rolled gauze and tape. R second toe abrasion presents as small partial thickness wound that patient complains of constantly reopening. Wound measures ~0.5 cm x ~0.2 cm x ~<0.1 cm Cleansed wound with wound cleanser applied Xeroform gauze in single layer just over wound bed and covered with bordered gauze and secured with rolled gauze and tape. Patient states, I will hopefully be discharged tomorrow so I can go back up to [place] and see the foot Doctor for surgery on the R second toe and R foot." Bri Ross [facility] Jun 18, 2017 20:17
[2017-06-18] MEDS: INSULIN DETEMIR 100 UNITS/ML VIAL SQ SCH (21:00)
[2017-06-18] MEDS: LACTIC ACID (AMMONIUM LACTATE) 12% LOTION 225 GM BTL TOPICAL SCH (21:00)
[2017-06-18] MEDS: methylPREDNISolone SOD SUCC 40 MG/1 ML VIAL IV PUSH SCH (21:11)
[2017-06-19] VITALS: BP 156/98; PULSE 71; RESP 18; TEMP 96; O2SAT 98
[2017-06-19 05:55] LABS: CHLORIDE 101 MEQ/L (98-107); POTASSIUM 4.5 MEQ/L (3.5-5.1); SODIUM (NA) 134 MEQ/L (136-145)
[2017-06-19 05:56] LABS: AUTOMATED NEUTROPHIL # 4.6 TH/MM3 (1.8-7.7); BASOPHIL % 0.4 % (0.0-2.0); EOSINOPHIL % 0.2 % (0.0-4.0); HEMATOCRIT 28.8 % (39.0-51.0); LYMPHOCYTE # 0.6 TH/MM3 (1.0-4.8); MEAN CELL VOLUME 77.2 FL (80.0-100.0); MEAN CORPUSCULAR HEMOGLOBIN 24.6 PG (27.0-34.0); MEAN CORPUSCULAR HGB CONC 31.9 % (32.0-36.0); MONO % 1.8 % (0.0-8.0); NEUT % 85.6 % (16.0-70.0); PLATELET COUNT 281 TH/MM3 (150-450); RED BLOOD COUNT 3.73 MIL/MM3 (4.50-5.90); WHITE BLOOD COUNT 5.3 TH/MM3 (4.0-11.0)
[2017-06-19 05:59] LABS: ANION GAP 7 MEQ/L (5-15); BICARBONATE 26.2 MEQ/L (21.0-32.0)
[2017-06-19 06:23] LABS: HEMO FLAGS AUTO DIFF
[2017-06-19 06:29] LABS: ALKALINE PHOSPHATASE 149 U/L (45-117); ALT (GPT) 18 U/L (12-78); AST (GOT) 21 U/L (15-37); BLOOD UREA NITROGEN 16 MG/DL (7-18); GLOMERULAR FILTRATION RATE 100 ML/MIN (>89); TOTAL BILIRUBIN ADULT 0.2 MG/DL (0.2-1.0)
--- NOTE | 2017-06-19 06:44 | RADRPT ---
EXAM DATE/TIME: 06/19/2017 06:17 [facility] COMPARISON: CHEST SINGLE AP, June 16, 2017, 16:55. INDICATIONS : Shortness of breath. MEDICAL HISTORY : Hypertension. Diabetes mellitus type II. SURGICAL HISTORY : Cardiac ablation. ENCOUNTER: Subsequent ACUITY: 2 days PAIN SCORE: 0/10 LOCATION: Bilateral chest FINDINGS: Portable AP view of the chest demonstrates a normal-sized cardiac silhouette. Lungs are underinflated . There is patchy opacity in the right mid and lower lung zone and there is atelectasis at the left l vincent base. No pleural effusion or pneumothorax is visualized. CONCLUSION: Significantly improved right lung airspace consolidation. There is very mild patchy airspace consolid ation remaining. Collin Galarza MD on June 19, 2017 at 6:42 Board Certified Radiologist. This report was verified electronically.
[2017-06-19 07:20] LABS: SCAN/DIFF AUTO DIFF CONFIRMED
[2017-06-19 07:21] LABS: ROULEAUX PRESENT (NORMAL)
--- NOTE | 2017-06-19 07:58 | HHI.PR ---
Subjective History of Present Illness Patient feel better SOB / Hemoptysis better no acute issue d/w LUCIUS Spann consult cardiology for high troponin Review of Systems Constitutional Constitutional: Fatigue, Weakness Pulmonary Respiratory: Coughing, Shortness of Breath Pulmonary Remarks Hemoptysis. Vitals/Results Intake & Output 06/18/17 06/18/17 06/19/17 15:00 23:00 07:00 Intake Total 120 ml 620 ml 240 ml Output Total 1000 ml Balance 120 ml 620 ml -760 ml Intake Oral 120 ml 520 ml 240 ml IV Total 100 ml Output Urine Total 1000 ml # Voids 1 # Bowel Movements 0 0 Vital Signs Vital Signs Date Time Temp Pulse Resp B/P Pulse Ox O2 Delivery O2 Flow Rate FiO2 06/19/17 00:00 96.0 71 18 156/98 98 06/18/17 20:00 97.5 72 20 136/73 98 06/18/17 16:00 66 17 138/75 99 06/18/17 12:00 98.0 77 18 143/85 96 06/18/17 08:00 98.3 75 21 165/89 97 CBC/BMP: 06/19/17 0501 06/19/17 0501 Lab Results Laboratory Tests Test 06/19/17 05:01 White Blood Count 5.3 TH/MM3 Red Blood Count 3.73 MIL/MM3 Hemoglobin 9.2 GM/DL Hematocrit 28.8 % Mean Corpuscular Volume 77.2 FL Mean Corpuscular Hemoglobin 24.6 PG Mean Corpuscular Hemoglobin 31.9 % Concent Red Cell Distribution Width 13.0 % Platelet Count 281 TH/MM3 Mean Platelet Volume 7.3 FL Neutrophils (%) (Auto) 85.6 % Lymphocytes (%) (Auto) 12.0 % Monocytes (%) (Auto) 1.8 % Eosinophils (%) (Auto) 0.2 % Basophils (%) (Auto) 0.4 % Neutrophils # (Auto) 4.6 TH/MM3 Lymphocytes # (Auto) 0.6 TH/MM3 Monocytes # (Auto) 0.1 TH/MM3 Eosinophils # (Auto) 0.0 TH/MM3 Basophils # (Auto) 0.0 TH/MM3 CBC Comment AUTO DIFF Differential Comment AUTO DIFF CONFIRMED Rouleau PRESENT Sodium Level 134 MEQ/L Potassium Level 4.5 MEQ/L Chloride Level 101 MEQ/L Carbon Dioxide Level 26.2 MEQ/L Anion Gap 7 MEQ/L Blood Urea Nitrogen 16 MG/DL Creatinine 0.80 MG/DL Estimat Glomerular Filtration 100 ML/MIN Rate Random Glucose 400 MG/DL Calcium Level 8.3 MG/DL Total Bilirubin 0.2 MG/DL Aspartate Amino Transf 21 U/L (AST/SGOT) Alanine Aminotransferase 18 U/L (ALT/SGPT) Alkaline Phosphatase 149 U/L Total Protein 7.8 GM/DL Albumin 2.4 GM/DL Physical Exam General General Appearance: No Acute Distress, Comfortable Eyes Eye Exam: Pupils Equal, Pupils Reactive, Sclera White, Extraocular Movement Intact Throat Throat Exam: Oral Mucosa [place] & Moist, Oral Pharynx Normal Neck Neck Exam: Neck Supple, Trachea Midline Pulmonary Resp Exam: Breath Sounds Equal, No Distress, Decreased Bases, Diminished Breath Sounds Cardiology CV Exam: Regular, Normal Sinus Rhythm Gastrointestinal/Abdomen GI Exam: Soft, Non-Tender, Bowel Sounds Present Musculoskeletal MS Exam: Normal Tone Integumentary Skin Exam: Warm, Dry Neurologic Neuro Exam: Alert, Awake, Oriented, Speech Clear, Moving All Extremities, No Focal Deficits Psychiatric Psych Exam: Appropriate Responses VTE Prophylaxis VTE Remarks Eliquis. PUD Prophylasis PUD Prophylaxis: Protonix Assessment/Plan Assessment/Plan ASSESSMENT/PLAN 1. This is 57 year-old male who came to the emergency room with a diagnosis of pneumonia. The patient is on Zithromax 500 milligrams IV daily and Rocephin 1 gram IV daily. Pulmonary input noted. Further recommendation per pulmonary. 2. History of diabetes mellitus, ADA diet. NovoLog low-dose sliding scale. Check blood sugars at bedtime, monitor blood sugar. 3. Diabetic foot ulcer. Continue home medication. consult wound care. 4. GERD. Protonix 40 milligrams p.o. daily. 5. Constipation. Continue home medication. 6. History of atrial fibrillation. Rate control. The patient was on Eliquis 5 milligrams twice a day holding because of hemoptysis and diltiazem 240 milligrams p.o. daily. 7. History of hypertension. Continue home medications. 8. DVT prophylaxis. The patient was on Eliquis. 9. GI prophylaxis, Protonix 40 mg p.o. daily. 10. Leukocytosis resolved. 11. High troponin..consult cardiology We are going to manage the patient on a daily basis and will make recommendations on a daily basis. Check CBC with diff CMP in AM. Discussed Condition with: Patient Last Ybarra MD Jun 19, 2017 07:58
[2017-06-19 08:00] VITALS: BP 177/98; PULSE 73; RESP 20; TEMP 96.5; O2SAT 100
[2017-06-19] MEDS: DILTIAZEM-CD 240 MG CAP ER PO SCH (08:06)
[2017-06-19] MEDS: RAMIPRIL 2.5 MG CAP PO SCH ×2 (08:07→22:01)
[2017-06-19] MEDS: PANTOPRAZOLE SOD 40 MG DELAYED RELEASE TAB PO SCH (08:07)
[2017-06-19] MEDS: DOCUSATE SODIUM 50 MG/SENNA 8.6 MG TAB PO SCH ×2 (08:07→22:03)
[2017-06-19] MEDS: FUROSEMIDE 20 MG TAB PO SCH ×2 (08:07→22:03)
[2017-06-19] MEDS: methylPREDNISolone SOD SUCC 40 MG/1 ML VIAL IV PUSH SCH ×2 (08:10→22:03)
[2017-06-19] MEDS: SODIUM CHLORIDE 0.9% FLUSH 10 ML FLUSH IV FLUSH SCH ×2 (08:11→22:04)
[2017-06-19] MEDS: INSULIN ASPART SUPPLEMENTAL SCALE SQ SCH ×5 (08:19→22:03)
--- NOTE | 2017-06-19 08:57 | MB ---
cc: PRADEEP BANKS DATE OF CONSULTATION 06/18/2017 REASON FOR CONSULTATION Pneumonia and hemoptysis HISTORY OF PRESENT ILLNESS This is a 57-hour-old white male previously known to me with a history of COPD and right upper lobe lung nodules who has previously been investigated for these nodules. The patient had bronchoscopy done over three months ago and cytologies were negative. Subsequently, he had a PET/CT done which showed minimal uptake in the nodules, however, the patient had been admitted more than twice with episodes of pneumonia in the right lung, as well as fever and persistent wheezing. A CT-guided needle biopsy of one of the lung nodules was attempted, but the radiologist felt that it was not necessary since the lesions seemed to be regressing and thus it was elected to get a followup CT scan of the chest. The patient apparently over the past two days developed some chest congestion and early in the morning on the day of admission, he was throwing up and then he started bringing up bloody mucus also the morning hours and thus came to the emergency room and subsequently was admitted. A CT scan of the chest was done which showed no evidence of pulmonary emboli but had patchy consolidation in the right lung field and the superior segment of the right lower lobe and middle lobe. This apparently was worse than before. The patient states he is feeling better since he was started on antibiotics in the hospital and bronchodilators and his hemoptysis has subsided and his temperature is down to normal and he is now off oxygen maintaining a sat of 94%. PAST HISTORY Includes history of: 1. Atrial fibrillation 2. Hypertension 3. Diabetes mellitus 4. History of chronic right foot ulcers due to diabetes and Charcot. 5. Previous amputation of the right toe. 6. The patient goes to the wound clinic to manage his big ulcers in the right foot area. HABITS The patient smokes half to one-pack per day for over 30 years and alcohol use moderate. He has been exposed to multiple environmental pollutants like dust, asbestos, cement and apparently he is in the [employer] business. ALLERGIES None listed. FAMILY HISTORY Significant for diabetes. as well as heart disease. REVIEW OF SYSTEMS The patient has lost weight. He has dizzy attacks, postnasal drip, cough and hemoptysis, night sweats and fevers. He has some epigastric distress and nausea and he has pains along the lower chest and back. He also has chronic pain in his foot from ulcers of the right foot and Charcot's foot. He also has leg swelling. He had no depression or anxiety. PHYSICAL EXAMINATION This is a thinly built middle-aged white male in no acute distress. Mild pallor, no cyanosis, no clubbing. He has mild peripheral edema. Dressings of the right foot and ulceration of the foot noted. Amputated toe. The peripheral pulses are not well felt. VITAL SIGNS: Blood pressure 145/80, pulse is 75, respirations 22, temperature 98. HEENT: Head normocephalic. Pupils are reactive. Nasal mucosa injected. Throat was clear. NECK: Supple. No bruits or thyroid enlargement or lymphadenopathy. CHEST: Distant breath sounds with occasional crackles over the right lung field with a few scattered wheezes. HEART: Heart sounds are regular S1-S2. No murmur. ABDOMEN: Soft and protuberant. No masses or organomegaly. EXTREMITIES: Dressings on the right foot, diminished pulses, muscle wasting of the ankle and foot. Reflexes are 1+ bilaterally with no gross motor deficits. Skin was tightly stretched over the lower extremities. IMPRESSION 1. Recurrent right lung pneumonia, probable aspiration versus obstructive pneumonia. 2. Hemoptysis secondary to above. 3. Gastroesophageal reflux 4. Diabetes mellitus type 2 5. History of hypertension. 6. History of atrial fibrillation. 7. Gastroesophageal reflux 8. Chronic foot ulcer right foot PLAN The patient will be maintained on antibiotic coverage as ordered including Rocephin and Zithromax, nebulized DuoNeb solution added q.i.d. We will also add Solu-Medrol 40 mg b.i.d. for three days. Repeat chest x-ray was done in the a.m. and a CBC and electrolytes. The patient was advised that a bronchoscopy would be necessary, but he states that he wants to go to [place] to get his foot fixed first and then he would like to come back and have his bronchoscopy done. Meanwhile, we will try to get sputum cultures for AFB, fungus and Gram stain and culture. Thank you Dr. Lsat Ybarra for this consultation. MD JORGE A Carlisle/CATHERINE /8:38 PM :46 AM
[2017-06-19] MEDS ORDERED: AUGM875T3 PO (09:53)
[2017-06-19] MEDS: LACTIC ACID (AMMONIUM LACTATE) 12% LOTION 225 GM BTL TOPICAL SCH ×2 (10:39→21:00)
[2017-06-19 12:00] VITALS: BP 172/87; PULSE 64; RESP 20; TEMP 96.5; O2SAT 99
[2017-06-19 16:00] VITALS: BP 167/86; PULSE 67; RESP 18; TEMP 97.6; O2SAT 95
[2017-06-19] MEDS: cefTRIAXone INJ 1,000 MG in SODIUM CHLORIDE 0.9% INJ 100 ML IV SCH (17:26)
--- NOTE | 2017-06-19 19:46 | HHI.PR ---
Subjective Remarks Feels better. CXR improving . Off O2 sat 96. Cardiac W/U to be done. Wants to do Bronch next week. Objective Vital Signs Date Time Temp Pulse Resp B/P Pulse Ox O2 Delivery O2 Flow Rate FiO2 06/19/17 16:00 97.6 67 18 167/86 95 06/19/17 12:00 96.5 64 20 172/87 99 06/19/17 08:00 96.5 73 20 177/98 100 06/19/17 00:00 96.0 71 18 156/98 98 06/18/17 20:00 97.5 72 20 136/73 98 I/O 06/18/17 06/18/17 06/18/17 06/19/17 06/19/17 06/19/17 07:00 15:00 23:00 07:00 15:00 23:00 Intake Total 120 ml 620 ml 240 ml 1470 ml Output Total 1000 ml Balance 120 ml 620 ml -760 ml 1470 ml Intake Oral 120 ml 520 ml 240 ml 1470 ml IV Total 100 ml Output Urine Total 1000 ml # Voids 1 3 # Bowel Movements 0 0 Result Diagram: 06/19/17 0501 06/19/17 0501 Objective Remarks This is a thinly built middle-aged white male in no acute distress. Mild pallor, no cyanosis, no clubbing. He has mild peripheral edema. Dressings of the right foot and ulceration of the foot noted. Amputated toe. The peripheral pulses are not well felt. HEENT: Head normocephalic. Pupils are reactive. Nasal mucosa injected. Throat was clear. NECK: Supple. No bruits or thyroid enlargement or lymphadenopathy. CHEST: Distant breath sounds with occasional crackles over the right lung field with a few scattered wheezes. HEART: Heart sounds are regular S1-S2. No murmur. ABDOMEN: Soft and protuberant. No masses or organomegaly. EXTREMITIES: Dressings on the right foot, diminished pulses, muscle wasting of the ankle and foot. Reflexes are 1+ bilaterally with no gross motor deficits. Skin was tightly stretched over the lower extremities. Assessment and Plan Assessment and Plan IMPRESSION 1. Recurrent right lung pneumonia, probable aspiration versus obstructive pneumonia. 2. Hemoptysis secondary to above. 3. Gastroesophageal reflux 4. Diabetes mellitus type 2 5. History of hypertension. 6. History of atrial fibrillation. 7. Gastroesophageal reflux 8. Chronic foot ulcer right foot Plan : 1. Will schedule Bronchoscopy on 06/28/17 at 11 am 2. Continue antibiotics and switch to PO Augmentin for 1 week 3. Nebs qid Duoneb. 4. Continue Symbicort 160/4.5 Mcg , 2puffs bid 5. Will see as OP in 1 week. Deuce Sylvester MD Jun 19, 2017 19:46
[2017-06-19 20:00] VITALS: BP 171/78; PULSE 72; RESP 18; TEMP 97.3; O2SAT 98
[2017-06-19] MEDS: INSULIN DETEMIR 100 UNITS/ML VIAL SQ SCH ×2 (21:00→22:02)
[2017-06-19] MEDS: AZITHROMYCIN INJ 500 MG in SODIUM CHLOR 0.9% 250 ML INJ 250 ML IV SCH (22:00)
[2017-06-20] VITALS: BP 139/72; PULSE 73; RESP 18; TEMP 96.3; O2SAT 98
[2017-06-20 06:21] LABS: AUTOMATED NEUTROPHIL # 7.2 TH/MM3 (1.8-7.7); BASOPHIL % 0.2 % (0.0-2.0); EOSINOPHIL % 0.1 % (0.0-4.0); LYMPH % 9.2 % (9.0-44.0); LYMPHOCYTE # 0.7 TH/MM3 (1.0-4.8); MEAN CELL VOLUME 77.6 FL (80.0-100.0); MEAN CORPUSCULAR HEMOGLOBIN 24.9 PG (27.0-34.0); MEAN CORPUSCULAR HGB CONC 32.1 % (32.0-36.0); MONO % 1.7 % (0.0-8.0); NEUT % 88.8 % (16.0-70.0); PLATELET COUNT 269 TH/MM3 (150-450); RED BLOOD COUNT 3.73 MIL/MM3 (4.50-5.90)
[2017-06-20 06:27] LABS: HEMO FLAGS AUTO DIFF
[2017-06-20 06:30] LABS: CHLORIDE 102 MEQ/L (98-107); POTASSIUM 4.5 MEQ/L (3.5-5.1); SODIUM (NA) 136 MEQ/L (136-145)
[2017-06-20 06:37] LABS: ANION GAP 8 MEQ/L (5-15); BICARBONATE 26.3 MEQ/L (21.0-32.0)
[2017-06-20 07:01] LABS: ALKALINE PHOSPHATASE 183 U/L (45-117); ALT (GPT) 22 U/L (12-78); AST (GOT) 18 U/L (15-37); BLOOD UREA NITROGEN 15 MG/DL (7-18); GLOMERULAR FILTRATION RATE 124 ML/MIN (>89); TOTAL BILIRUBIN ADULT 0.2 MG/DL (0.2-1.0)
[2017-06-20 07:23] LABS: SCAN/DIFF AUTO DIFF CONFIRMED
[2017-06-20 08:00] VITALS: BP 192/95; PULSE 87; RESP 24; TEMP 96.2; O2SAT 95
--- NOTE | 2017-06-20 08:15 | PQ ---
Physician Query Response Document PATIENT: BRENDA HUTCHISON : 1960 ADMIT DATE: 06/16/2017 6:58 PM DISCH DATE: RESPONDING PROVIDER #: EAhmed QUERY TEXT: Clinical Validity Additional clinical indicators are required to support your documented diagnosis of _COPD __ Please respond and also state in your next progress note whether: -- Condition exists and also please provide clinical indicators to support the diagnosis -- Condition does not exist and also please provide amended documentation in the medical record to carie zamorano -- Unable to provide additional clarity regarding the diagnosis -- Other, please specify The patient's Clinical Indicators include: per pulmonary 06/18/17 HX of COPD and right upper lung nodules persistent wheezing. Hx of asbestos exposure and smokes 1/2 pack a day 30 yrs SOLUMEDROL iv PUSH Q 12 HR DUONEBULIZERS Q 4 HR PRN Query created by: Coni Mitchell on 06/19/2017 11:33 AM RESPONSE TEXT: Acute COPD exacerbation Electronically signed by: Last Ybarra MD 06/20/2017 8:12 AM
--- NOTE | 2017-06-20 08:29 | HHI.PR ---
Subjective History of Present Illness Patient feel better SOB / Hemoptysis better no acute issue d/w LUCIUS Carballo getting stress test. ok to discharge home today if stress test negative and ok with cardiology. Review of Systems Constitutional Constitutional: Fatigue, Weakness Pulmonary Respiratory: Coughing, Shortness of Breath Pulmonary Remarks Hemoptysis. Vitals/Results Intake & Output 06/19/17 06/19/17 06/20/17 15:00 23:00 07:00 Intake Total 1470 ml 250 ml 420 ml Balance 1470 ml 250 ml 420 ml Intake Oral 1470 ml 420 ml IV Total 250 ml # Voids 3 3 # Bowel Movements 0 Vital Signs Vital Signs Date Time Temp Pulse Resp B/P Pulse Ox O2 Delivery O2 Flow Rate FiO2 06/20/17 02:39 18 06/20/17 00:00 96.3 73 18 139/72 98 06/19/17 20:00 97.3 72 18 171/78 98 06/19/17 16:00 97.6 67 18 167/86 95 06/19/17 12:00 96.5 64 20 172/87 99 CBC/BMP: 06/20/17 0530 06/20/17 0530 Lab Results Laboratory Tests Test 06/20/17 05:30 White Blood Count 8.0 TH/MM3 Red Blood Count 3.73 MIL/MM3 Hemoglobin 9.3 GM/DL Hematocrit 29.0 % Mean Corpuscular Volume 77.6 FL Mean Corpuscular Hemoglobin 24.9 PG Mean Corpuscular Hemoglobin 32.1 % Concent Red Cell Distribution Width 13.0 % Platelet Count 269 TH/MM3 Mean Platelet Volume 7.7 FL Neutrophils (%) (Auto) 88.8 % Lymphocytes (%) (Auto) 9.2 % Monocytes (%) (Auto) 1.7 % Eosinophils (%) (Auto) 0.1 % Basophils (%) (Auto) 0.2 % Neutrophils # (Auto) 7.2 TH/MM3 Lymphocytes # (Auto) 0.7 TH/MM3 Monocytes # (Auto) 0.1 TH/MM3 Eosinophils # (Auto) 0.0 TH/MM3 Basophils # (Auto) 0.0 TH/MM3 CBC Comment AUTO DIFF Differential Comment AUTO DIFF CONFIRMED Sodium Level 136 MEQ/L Potassium Level 4.5 MEQ/L Chloride Level 102 MEQ/L Carbon Dioxide Level 26.3 MEQ/L Anion Gap 8 MEQ/L Blood Urea Nitrogen 15 MG/DL Creatinine 0.66 MG/DL Estimat Glomerular Filtration 124 ML/MIN Rate Random Glucose 405 MG/DL Calcium Level 8.8 MG/DL Total Bilirubin 0.2 MG/DL Aspartate Amino Transf 18 U/L (AST/SGOT) Alanine Aminotransferase 22 U/L (ALT/SGPT) Alkaline Phosphatase 183 U/L Total Protein 8.0 GM/DL Albumin 2.5 GM/DL Physical Exam General General Appearance: No Acute Distress, Comfortable Eyes Eye Exam: Pupils Equal, Pupils Reactive, Sclera White, Extraocular Movement Intact Throat Throat Exam: Oral Mucosa [place] & Moist, Oral Pharynx Normal Neck Neck Exam: Neck Supple, Trachea Midline Pulmonary Resp Exam: Breath Sounds Equal, No Distress, Decreased Bases, Diminished Breath Sounds Cardiology CV Exam: Regular, Normal Sinus Rhythm Gastrointestinal/Abdomen GI Exam: Soft, Non-Tender, Bowel Sounds Present Musculoskeletal MS Exam: Normal Tone Integumentary Skin Exam: Warm, Dry Neurologic Neuro Exam: Alert, Awake, Oriented, Speech Clear, Moving All Extremities, No Focal Deficits Psychiatric Psych Exam: Appropriate Responses VTE Prophylaxis VTE Remarks Eliquis. PUD Prophylasis PUD Prophylaxis: Protonix Assessment/Plan Assessment/Plan ASSESSMENT/PLAN 1. This is 57 year-old male who came to the emergency room with a diagnosis of pneumonia. The patient is on Zithromax 500 milligrams IV daily and Rocephin 1 gram IV daily. Pulmonary input noted. Further recommendation per pulmonary. 2. History of diabetes mellitus, ADA diet. NovoLog low-dose sliding scale. Check blood sugars at bedtime, monitor blood sugar. 3. Diabetic foot ulcer. Continue home medication. consult wound care. 4. GERD. Protonix 40 milligrams p.o. daily. 5. Constipation. Continue home medication. 6. History of atrial fibrillation. Rate control. The patient was on Eliquis 5 milligrams twice a day holding because of hemoptysis and diltiazem 240 milligrams p.o. daily. 7. History of hypertension. Continue home medications. 8. DVT prophylaxis. The patient was on Eliquis. 9. GI prophylaxis, Protonix 40 mg p.o. daily. 10. Leukocytosis resolved. 11. High troponin..consult cardiology getting stress test. ok to discharge home today if stress test negative and ok with cardiology. f/u with pcp/ pulmonary and cardiology 1 week. Discussed Condition with: Patient Last Ybarra MD Jun 20, 2017 08:29
[2017-06-20] MEDS ORDERED: cloNIDine HCL 0.1 MG TAB PO PRN (08:30)
[2017-06-20] MEDS ORDERED: REGADENOSON INJ 0.4 MG/5 ML SYR IV ONE (08:39)
--- NOTE | 2017-06-20 08:57 | PD.CONS ---
HPI Service CV Consult Requested By Reason for Consult elevated troponin Primary Care Physician Reilly Jaime MD History of Present Illness Here with h/o of a-fib s/p ablation x 2, pulmonary nodules admitted for shortness of breath and hemoptysis. This all started Sunday. He denies chest pain or palpitations. Review of Systems Consitutional: DENIES: Fatigue, Fever, Chills, Weight gain, Weight loss Eyes: DENIES: Amaurosis [place], Change in vision HEENT: DENIES: Lightheadedness, Change in hearing Respiratory: COMPLAINS OF: Shortness of breath Cardiovascular: COMPLAINS OF: See HPI Gastrointestinal: DENIES: Nausea, Vomiting, Change in bowel habits, Reflux, Bloody stools, Melena Genitourinary: DENIES: Urinary incontinence, Difficulty voiding Integumentary: DENIES: Rash Neurologic: DENIES: Tingling or numbness, Memory problems, Poor Balance, Stroke symptoms Musculoskeletal: DENIES: Joint pain, Muscle pain, Limited range of motion, Back pain Psychiatric: DENIES: Anxiety, Depression, Sleep disturbances Hematologic: DENIES: Bruising tendencies, Bleeding tendencies Endocrine: DENIES: Weight gain, Weight loss, Thyroid disease Past Family Social History Allergies: Coded Allergies: *MDRO Multi-Drug Resistant Organism (Verified Adverse Reaction, Unknown, MRSA, 06/16/17) MRSA (foot wound) - 02/12/15, 11/12/16, 03/29/17; (toe) - 03/2016 Past Medical History see HPI diabetes diabetic neuropathy chronic osteomyelitis right foot Past Surgical History skin graft bilateral great toe Reported Medications Reported Meds & Active Scripts Active Augmentin (Amoxicillin-Clavulanate) 875-125 Mg Tab 1 Tab PO BID Walker/Adult/Folding (Device) 1 Mis Mis 1 Ea .ROUTE DIRECTED [place] (Hydrocodone-Acetaminophen) 7.5-325 mg Tab 1 Tab PO Q4H PRN Reported Oxycodone (Oxycodone HCl) 30 Mg Tab 30 Mg PO Q4HR PRN Lantus Inj (Insulin Glargine) 1,000 Unit/10 Ml Vial 30 Units SQ HS Eliquis (Apixaban) 5 Mg Tab 5 Mg PO BID Ramipril 5 Mg Cap 2.5 Mg PO BID Diltiazem ER 24 HR 240 Mg Brock 240 Mg PO DAILY Humalog Inj (Insulin Human Lispro) 1,000 Unit/10 Ml Vial 5-25 Units SQ ACHS Max dose at bedtime:( )units; sugars < 70,(0)units; sugars 150-199,(5)units; sugars 200-249,(10)units; sugars 250-299,(15)units; sugars 300-349,(20)units; sugars more than 349,(25)units. Furosemide 20 Mg Tab 20 Mg PO BID Protonix (Pantoprazole Sodium) 40 Mg Tab 40 Mg PO DAILY Active Ordered Medications Current Medications Medications (Trade) Dose Ordered Sig/Veronica Route Start Time Stop Time Status Last Admin (NS Flush) 2 ml UNSCH PRN IV FLUSH 06/16/17 19:00 (NS Flush) 2 ml BID IV FLUSH 06/16/17 21:00 06/19/17 22:04 (Tylenol) 650 mg Q4H PRN PO 06/16/17 19:00 (Zofran Inj) 4 mg Q6H PRN IVP 06/16/17 19:00 (Narcan Inj) 0.4 mg UNSCH PRN IV 06/16/17 19:00 (Aliyah-Colace) 1 tab BID PO 06/16/17 21:00 06/19/17 22:03 (Milk Of Magnesia Liq) 30 ml Q12H PRN PO 06/16/17 19:00 (Senokot) 17.2 mg Q12H PRN PO 06/16/17 19:00 (Dulcolax Supp) 10 mg DAILY PRN RECTAL 06/16/17 19:00 (Lactulose Liq) 30 ml DAILY PRN PO 06/16/17 19:00 (D50w (Vial) Inj) 50 ml UNSCH PRN IV 06/16/17 19:00 Glucagon 1 mg 1 mg UNSCH PRN OTHER 06/16/17 19:00 Ceftriaxone Sodium 1000 mg/ Sodium Chloride 100 ml @ 200 mls/hr Q24H IV 06/17/17 18:00 06/19/17 17:26 (Zithromax Inj/ NS 250 ml Inj) 250 ml @ 250 mls/hr Q24H IV 06/17/17 20:00 06/19/17 22:00 (Eliquis) 5 mg BID PO 06/16/17 21:00 Hold 06/17/17 08:12 (Cardizem Cd) 240 mg DAILY PO 06/17/17 09:00 06/19/17 08:06 (Lasix) 20 mg BID PO 06/16/17 21:00 06/19/17 22:03 (Levemir Inj) 30 units HS SQ 06/16/17 21:00 06/19/17 22:02 (Protonix) 40 mg DAILY PO 06/17/17 09:00 06/19/17 08:07 (Altace) 2.5 mg BID PO 06/16/17 21:00 06/19/17 22:01 (Ativan Inj) 1 mg Q6H PRN IV PUSH 06/17/17 15:45 (Roxicodone) 30 mg Q4H PRN PO 06/18/17 09:00 06/20/17 06:32 (Lac-Hydrin 12% Lotion) APPLY TO BILATERAL FEET, ... BID TOPICAL 06/18/17 21:00 06/19/17 10:39 (Catapres) 0.1 mg Q6H PRN PO 06/20/17 08:30 UNV (Deltasone) 10 mg BID PO 06/20/17 09:00 UNV Family History noncontributory Social History denies smoking, alcohol or substance abuse Physical Exam Vital Signs Vital Signs Date Time Temp Pulse Resp B/P Pulse Ox O2 Delivery O2 Flow Rate FiO2 06/20/17 02:39 18 06/20/17 00:00 96.3 73 18 139/72 98 06/19/17 20:00 97.3 72 18 171/78 98 06/19/17 16:00 97.6 67 18 167/86 95 06/19/17 12:00 96.5 64 20 172/87 99 Physical Exam GENERAL: Well-nourished, well-developed patient in no apparent distress. NECK: No JVD. No carotid bruit. CARDIOVASCULAR: Regular rate and rhythm. S1/S2 no murmur, rub, or gallop. RESPIRATORY: No accessory muscle use. Clear to auscultation. Breath sounds equal bilaterally. GASTROINTESTINAL: Abdomen soft, non-tender, nondistended. MUSCULOSKELETAL: Extremities without clubbing, cyanosis, or edema. Laboratory Laboratory Tests Test 06/20/17 05:30 White Blood Count 8.0 Red Blood Count 3.73 Hemoglobin 9.3 Hematocrit 29.0 Mean Corpuscular Volume 77.6 Mean Corpuscular Hemoglobin 24.9 Mean Corpuscular Hemoglobin 32.1 Concent Red Cell Distribution Width 13.0 Platelet Count 269 Mean Platelet Volume 7.7 Neutrophils (%) (Auto) 88.8 Lymphocytes (%) (Auto) 9.2 Monocytes (%) (Auto) 1.7 Eosinophils (%) (Auto) 0.1 Basophils (%) (Auto) 0.2 Neutrophils # (Auto) 7.2 Lymphocytes # (Auto) 0.7 Monocytes # (Auto) 0.1 Eosinophils # (Auto) 0.0 Basophils # (Auto) 0.0 CBC Comment AUTO DIFF Differential Comment AUTO DIFF CONFIRMED Sodium Level 136 Potassium Level 4.5 Chloride Level 102 Carbon Dioxide Level 26.3 Anion Gap 8 Blood Urea Nitrogen 15 Creatinine 0.66 Estimat Glomerular Filtration 124 Rate Random Glucose 405 Calcium Level 8.8 Total Bilirubin 0.2 Aspartate Amino Transf 18 (AST/SGOT) Alanine Aminotransferase 22 (ALT/SGPT) Alkaline Phosphatase 183 Total Protein 8.0 Albumin 2.5 Date/Time Procedure Status Source Growth 06/17/17 08:15 Gram Stain - Final Complete Sputum Expectorated Sputum 06/17/17 08:15 Sputum Culture - Final Complete Sputum Expectorated Sputum HEAVY GROWTH NORMAL RESPIRATORY RICK 06/16/17 17:25 Aerobic Blood Culture - Preliminary Resulted Blood Peripheral NO GROWTH IN 3 DAYS 06/16/17 17:25 Anaerobic Blood Culture - Preliminary Resulted Blood Peripheral NO GROWTH IN 3 DAYS Result Diagram: 06/20/17 0530 06/20/17 0530 Assessment and Plan Problem List: (1) HTN (hypertension) (2) Elevated troponin Assessment and Plan elevated troponin likely demand mediated, will await results of SPECT. If that is normal he can be discharged from a CV standpoint HTN - now well controlled Terry Maguire Jun 20, 2017 08:57
[2017-06-20] MEDS ORDERED: predniSONE 10 MG TAB PO SCH (09:00)
[2017-06-20] MEDS: PANTOPRAZOLE SOD 40 MG DELAYED RELEASE TAB PO SCH (09:42)
[2017-06-20] MEDS: DOCUSATE SODIUM 50 MG/SENNA 8.6 MG TAB PO SCH (09:42)
[2017-06-20] MEDS: RAMIPRIL 2.5 MG CAP PO SCH (09:43)
[2017-06-20] MEDS: FUROSEMIDE 20 MG TAB PO SCH (09:43)
[2017-06-20] MEDS: DILTIAZEM-CD 240 MG CAP ER PO SCH (09:43)
[2017-06-20] MEDS: SODIUM CHLORIDE 0.9% FLUSH 10 ML FLUSH IV FLUSH SCH (09:43)
[2017-06-20] MEDS: INSULIN ASPART SUPPLEMENTAL SCALE SQ SCH (09:45)
[2017-06-20] MEDS: LACTIC ACID (AMMONIUM LACTATE) 12% LOTION 225 GM BTL TOPICAL SCH (09:45)
--- NOTE | 2017-06-20 10:11 | RADRPT ---
EXAM DATE/TIME: 06/19/2017 15:46 [place] COMPARISON: No previous studies available for comparison. EXTERNAL COMPARISON : [facility], PET/CT TUMOR, April 24, 2017 INDICATIONS : Elevated troponins. Chest pain with dyspnea. Angina. Atrial fibrillation. DOSE: 31.9 mCi Tc99m Myoview at stress. 32.6 mCi Tc99m Myoview at rest. 0.4 mg Lexiscan STRESS SYMPTOMS: Dyspnea. EJECTION FRACTION: 58% MEDICAL HISTORY : Hypercholesterolemia. Diabetes mellitus type 2. Gastroesophageal reflux disease. Hypertension. SURGICAL HISTORY : Right foot. ENCOUNTER: Initial ACUITY: 3 days PAIN SCALE: 3/10 LOCATION: chest TECHNIQUE: The patient underwent pharmacologic stress with infusion of prescribed dose. Continuous ECG tracing was monitored during stress. Gated SPECT imaging was performed after stress and conventional SPECT i maging was performed at rest. The examination was performed on a SPECT/CT scanner, both attenuation and non-corrected datasets were reviewed. FINDINGS: DISTRIBUTION: The maximum perfused segment at stress is in the lateral wall. Small fixed defect in the inferior ant erior wall. PERFUSION STUDY: Small region of decreased perfusion at stress in the basilar anteroseptal wall. GATED STUDY: There is intact wall motion and thickening without hypokinetic or dyskinetic segments. CONCLUSION: 1. Findings consistent with small region of basal anteroseptal wall ischemia. 2. No significant focal wall motion abnormality with EF of 58%. RISK CATEGORY: Low (<1% Annual Mortality Rate) Jeromy Carranza MD on June 20, 2017 at 9:59 Board Certified Radiologist. This report was verified electronically.
--- NOTE | 2017-06-21 08:21 | PQ ---
Physician Query Response Document PATIENT: BRENDA HUTCHISON : 1960 ADMIT DATE: 06/16/2017 6:58 PM DISCH DATE: 06/20/2017 12:24 PM RESPONDING PROVIDER #: EAhmed QUERY TEXT: Pneumonia Specificity Pneumonia is documented in the Medical Record. Please specify the type of pneumonia and the causative organism (includes probable or suspected) Such as: Type: -- Aspiration pneumonia (please also specify the aspirate) - [place] (please specify cause) - Please indicate if the aspiration is postprocedure -- Bacterial (please document suspected or probable organism) -- Bronchopneumonia (please document suspected or probable organism) -- Interstitial pneumonia -- Organizing pneumonia / BOOP -- Pneumonia with influenza, braden flu, or H1N1 flu -- RSV -- Tuberculosis, pulmonary -- Viral -- Other, please specify The patient's Clinical Indicators include: per pulmonary pneumonia aspiration vs obstructive Lungs are underinflated w right mid to lower lung zone patchy consolidation and atelectasis at left l [place] base no pleural effusion or pneumothorax cytology negative Query created by: Coni Mitchell on 06/20/2017 11:01 AM RESPONSE TEXT: Possible aspiration pneumonia from gastric content Electronically signed by: Last Ybarra MD 06/21/2017 8:18 AM
== END 2017-06-20 12:24 | disposition home or self-care (01) | DRG 178 ==
LOC: PHED 16:27 → PHEDA 18:58 → PH3B 20:43
PROVIDERS: ADMIT Family Medicine; ATTEND Family Medicine
DX: J69.0 Pneumonitis due to inhalation of food and vomit (principal); L97.419 Non-pressure chronic ulcer of right heel and midfoot with unspecified severity; E11.42 Type 2 diabetes mellitus with diabetic polyneuropathy; E11.621 Type 2 diabetes mellitus with foot ulcer; R04.2 Hemoptysis; J44.1 Chronic obstructive pulmonary disease with (acute) exacerbation; F41.9 Anxiety disorder, unspecified; F17.210 Nicotine dependence, cigarettes, uncomplicated; I10 Essential (primary) hypertension; I48.2 Chronic atrial fibrillation; K21.9 Gastro-esophageal reflux disease without esophagitis; K59.00 Constipation, unspecified; E78.00 Pure hypercholesterolemia, unspecified; R91.1 Solitary pulmonary nodule; Z79.01 Long term (current) use of anticoagulants; Z79.4 Long term (current) use of insulin
CPT/HCPCS: 71010; 71275; 78452; 80048; 80053; 82550; 82948; 83880; 84484; 85025; 85610; 85730; 87015; 87040; 87070; 87205; 93005; 93017; 94640; 94664; 96365; A9502; J0456; J0696; J1815; J2785; J2920; J7050; J7512; Q9967

== ENCOUNTER 2018-07-18 18:53 | Inpatient (IN) ==
[2018-07-18] MEDS ORDERED: Orphenadrine Inj 60 MG/2 ML Ampul IM ONE (19:56)
--- NOTE | 2018-07-18 20:30 | XR ---
EXAM DATE: 07/18/2018 8:22 PM EDT AGE/SEX: 58 years / Male INDICATIONS: Back pain. CLINICAL DATA: This is the patient's initial encounter. Patient reports that signs and symptoms have been present for 1 day and indicates a pain score of 10/10. MEDICAL/SURGICAL HISTORY: None. None. COMPARISON: No prior exams available for comparison. FINDINGS: There is moderate curvature of the upper lumbar spine convex towards the right. In lateral projection , there is grade 1 anterolisthesis of L4 with respect to L5. There is advanced degenerative degenerat ksenia changes at L5-S1 with interspace narrowing and endplate sclerosis. Bridging anterior paravertebra l ossification is present at L2-3. Pedicles are seen at all levels. CONCLUSION: 1. No compression deformities seen. 2. Multilevel degenerative changes in the posterior elements of the lower lumbar spine, grade 1 ante rolisthesis at L4-5, and moderately severe right upper lumbar scoliosis. Electronically signed by: Trenton Dolan MD 07/18/2018 8:28 PM EDT
--- NOTE | 2018-07-18 20:41 | ED ---
HPI General Chief Complaint: Back Pain/Injury Stated Complaint: Back pain Time Seen by Provider: 07/18/18 19:47 Source: patient Mode of arrival: EMS Limitations: no limitations History of Present Illness HPI Narrative: Patient is a 58-year-old male presenting to the emergency department for evaluation of back pain. Patient states he was getting out of his vehicle when he felt his back began to spasm. Patient states the pain feels like it is on the inside of him. His pain is 9 out of 10, injury occurred 1 hour prior to arrival. Patient did not fall was brought to the emergency department by EVAC because he could not get off the ground. When patient arrived to the emergency department he complained of left hand pain and swelling. He reports that he was supposed to have surgery a week ago. Surgery was postponed due to an abnormal EKG per his report. He states since he was last evaluated by his hand surgeon he has had increasing pain and swelling. Patient has streaking on his forearm just moved to the elbow, he states he had not noticed this before. He denies any fever, chills, chest pain, shortness of breath, headache. MD Complaint: back pain Onset (ago): hour(s) Duration: constant and progressively worsening Location: lumbar spine Severity: moderate Quality: aching, spasming and throbbing Severity scale (1-10): 8 Exacerbating factors: immobilization Context: turning/twisting Associated symptoms: denies other symptoms Related Data Home Medications Medication Instructions Recorded Confirmed apixaban [Eliquis] 5 mg PO BID 06/09/18 07/18/18 diltiazem HCl 240 mg PO DAILY 06/09/18 06/09/18 furosemide 20 mg PO BID 06/09/18 07/18/18 insulin glargine [Lantus Solostar 50 unit SUB-Q BID 06/09/18 07/18/18 U-100 Insulin] pantoprazole [Protonix] 40 mg PO DAILY 06/09/18 07/18/18 ramipril 2.5 mg PO DAILY 06/09/18 07/18/18 Allergies Allergy/AdvReac Type Severity Reaction Status Date / Time *MDRO Multi-Drug Resistant AdvReac Unknown MRSA Uncoded 06/16/17 16:34 Organism Review of Systems ROS: all other systems reviewed are negative [facility] Medical History Medical History Amputated toe (Acute) GERD (gastroesophageal reflux disease) (Acute) Hyperlipidemia (Acute) Back pain (Chronic) Hypertension (Chronic) Osteomyelitis (Chronic) Afib (Chronic) Diabetes (Chronic) Surgical History Surgical History H/O foot surgery (Acute) Family History Family History Other Coronary artery disease Social History Social History Substance History: No History of Abuse Second Hand Smoke Exposure: No Smoking Status: Never smoker How Often Do You Have a Drink Containing Alcohol: Never Recent Travel in [facility] within the Last 8 Weeks: No Recent Out of Country Travel within the Last 8 Weeks: No Immunization History Tetanus Immunization: Unsure Hx Influenza Vaccine This Season: No Exam Narrative Exam Narrative: GENERAL: Well-developed, well-nourished, alert male. Appears uncomfortable, no acute distress. SKIN: Focused skin assessment warm/dry. Edema and ecchymosis noted to the fourth MCP dorsally and on the palmar aspect. Patient has linear erythematous streaking on the dorsal aspect of his left forearm just proximal to the elbow. HEAD: Atraumatic. Normocephalic. EYES: Pupils equal and round. No scleral icterus. No injection or drainage. ENT: No nasal bleeding or discharge. Mucous membranes pink and moist. NECK: Trachea midline. No JVD. CARDIOVASCULAR: Regular rate and rhythm. No murmur appreciated. RESPIRATORY: No accessory muscle use. Clear to auscultation. Breath sounds equal bilaterally. GASTROINTESTINAL: Abdomen soft, non-tender, nondistended. Hepatic and splenic margins not palpable. MUSCULOSKELETAL: No obvious deformities. No clubbing. No cyanosis. No edema. No spinal tenderness or step-off noted. No tenderness to palpation to paraspinal musculature in the lumbar or thoracic region. Full range of motion in all 4 extremities. NEUROLOGICAL: Awake and alert. No obvious cranial nerve deficits. Motor grossly within normal limits. Normal speech. PSYCHIATRIC: Appropriate mood and affect; insight and judgment normal. Course Initial Documented Vital Signs Temperature 98.5 F 07/18/18 19:07 Pulse Rate 99 H 07/18/18 19:07 Respiratory Rate 20 07/18/18 19:07 Blood Pressure 125/86 07/18/18 19:07 Pulse Oximetry 98 07/18/18 19:07 Last Documented Vital Signs Temperature 97.7 F 07/19/18 00:00 Pulse Rate 83 07/19/18 00:00 Respiratory Rate 20 07/19/18 00:00 Blood Pressure 120/58 L 07/19/18 00:00 Pulse Oximetry 99 07/19/18 00:00 Medical Decision Making CLARIBEL Attestation CLARIBEL supervised visit: Yes Attestation: I, Dr. Metcalf, have reviewed the advance practice practitioner's documentation and am in agreement, met with the patient face to face, made the diagnosis, and the medical decision making was done by me. *My assessment and Findings: Patient has left ring finger infection. There is some intact passive and active flexion at the distal articulation such that was tenosynovitis considered less likely overall. Patient will be admitted for IV antibiotics and hand surgery consultation. MDM Narrative Medical decision making narrative: Patient presented for evaluation of back pain , it was then noticed the patient had streaking and worsening redness and swelling of his left hand since his evaluation by his surgeon over week ago. Labs and imaging ordered and pending. Patient's vital signs are stable. He was initially ordered Toradol and Norflex for the back pain which he declined stating he does not like to take pills. E force was utilized, patient received a prescription for oxycodone and Xanax on 06/17/18 for 30 days. Patient was encouraged to take the Toradol and Norflex or the back pain and he agreed. X- ray of the lumbar spine shows degenerative changes. X-ray of the left hand shows soft tissue swelling and mild periosteal reaction of the proximal phalanx of the left fourth digit. After blood cultures were obtained patient was started on antibiotics empirically. Patient was also seen and evaluated by my attending physician. Patient will be admitted for IV antibiotic therapy, he is currently followed by Dr. Awad as outpatient. She was admitted to Dr. Fitzgerald, admit orders placed. Patient is resting comfortably with friend at bedside. Medical Screen Exam Complete: Yes Emergency Medical Condition: Yes Lab Data Result diagrams: 07/18/18 21:18 07/18/18 21:18 Lab Results 07/18/18 07/18/18 07/18/18 Range/Units 21:18 21:18 21:18 WBC (4.0-11.0) th/mm3 RBC (4.50-5.90) mil/mm3 Hgb (13.0-17.0) gm/dL Hct (39.0-51.0) % MCV (80.0-100.0) fL MCH (27.0-34.0) pg MCHC (32.0-36.0) % RDW (11.6-17.2) % Plt Count (150-450) th/mm3 MPV (7.0-11.0) fL Neut % (Auto) (16.0-70.0) % Lymph % (Auto) (9.0-44.0) % Williamson % (Auto) (0.0-8.0) % Eos % (Auto) (0.0-4.0) % Baso % (Auto) (0.0-2.0) % Neut # (Auto) (1.8-7.7) th/mm3 Lymph # (Auto) (1.0-4.8) th/mm3 Williamson # (Auto) (0.0-0.9) th/mm3 Eos # (Auto) (0.0-0.4) th/mm3 Baso # (Auto) (0.0-0.2) th/mm3 WBC Differential Differential Comment ESR Greater than 140 H (0-20) mm/hr PT 11.2 (9.8-11.6) sec INR 1.1 Ratio APTT 35.0 H (24.3-30.1) sec Sodium (136-145) meq/L Potassium (3.5-5.1) meq/L Chloride (98-107) meq/L Carbon Dioxide (21.0-32.0) meq/L Anion Gap (5-15) meq/L BUN (7-18) mg/dL Creatinine (0.60-1.30) mg/dL Estimated GFR (>89) mL/min POC Glucose (68-110) mg/dl Random Glucose (74-106) mg/dL Lactic Acid (0.4-2.0) mmol/L Calcium (8.5-10.1) mg/dL Magnesium 1.9 (1.5-2.5) mg/dL Total Bilirubin (0.2-1.0) mg/dL AST (15-37) U/L ALT (12-78) U/L Alkaline Phosphatase (45-117) U/L C-Reactive Protein 9.00 H (0.00-0.30) mg/dL Total Protein (6.4-8.2) g/dL Albumin (3.4-5.0) g/dL 07/18/18 07/18/18 07/18/18 Range/Units 21:18 21:18 21:18 WBC 12.9 H (4.0-11.0) th/mm3 RBC 3.71 L (4.50-5.90) mil/mm3 Hgb 9.8 L (13.0-17.0) gm/dL Hct 29.9 L (39.0-51.0) % MCV 80.7 (80.0-100.0) fL MCH 26.6 L (27.0-34.0) pg MCHC 32.9 (32.0-36.0) % RDW 16.4 (11.6-17.2) % Plt Count 520 H (150-450) th/mm3 MPV 6.2 L (7.0-11.0) fL Neut % (Auto) 76.9 H (16.0-70.0) % Lymph % (Auto) 13.7 (9.0-44.0) % Williamson % (Auto) 8.3 H (0.0-8.0) % Eos % (Auto) 0.5 (0.0-4.0) % Baso % (Auto) 0.6 (0.0-2.0) % Neut # (Auto) 9.9 H (1.8-7.7) th/mm3 Lymph # (Auto) 1.8 (1.0-4.8) th/mm3 Williamson # (Auto) 1.1 H (0.0-0.9) th/mm3 Eos # (Auto) 0.1 (0.0-0.4) th/mm3 Baso # (Auto) 0.1 (0.0-0.2) th/mm3 WBC Differential . Differential Comment Auto diff final ESR (0-20) mm/hr PT (9.8-11.6) sec INR Ratio APTT (24.3-30.1) sec Sodium 129 L (136-145) meq/L Potassium 4.0 (3.5-5.1) meq/L Chloride 93 L (98-107) meq/L Carbon Dioxide 26.3 (21.0-32.0) meq/L Anion Gap 10 (5-15) meq/L BUN 35 H (7-18) mg/dL Creatinine 0.78 (0.60-1.30) mg/dL Estimated GFR Greater than 89 (>89) mL/min POC Glucose (68-110) mg/dl Random Glucose 205 H (74-106) mg/dL Lactic Acid 0.7 (0.4-2.0) mmol/L Calcium 8.9 (8.5-10.1) mg/dL Magnesium (1.5-2.5) mg/dL Total Bilirubin 0.3 (0.2-1.0) mg/dL AST 15 (15-37) U/L ALT 16 (12-78) U/L Alkaline Phosphatase 118 H (45-117) U/L C-Reactive Protein (0.00-0.30) mg/dL Total Protein 8.9 H (6.4-8.2) g/dL Albumin 2.7 L (3.4-5.0) g/dL 07/19/18 Range/Units 03:18 WBC (4.0-11.0) th/mm3 RBC (4.50-5.90) mil/mm3 Hgb (13.0-17.0) gm/dL Hct (39.0-51.0) % MCV (80.0-100.0) fL MCH (27.0-34.0) pg MCHC (32.0-36.0) % RDW (11.6-17.2) % Plt Count (150-450) th/mm3 MPV (7.0-11.0) fL Neut % (Auto) (16.0-70.0) % Lymph % (Auto) (9.0-44.0) % Williamson % (Auto) (0.0-8.0) % Eos % (Auto) (0.0-4.0) % Baso % (Auto) (0.0-2.0) % Neut # (Auto) (1.8-7.7) th/mm3 Lymph # (Auto) (1.0-4.8) th/mm3 Williamson # (Auto) (0.0-0.9) th/mm3 Eos # (Auto) (0.0-0.4) th/mm3 Baso # (Auto) (0.0-0.2) th/mm3 WBC Differential Differential Comment ESR (0-20) mm/hr PT (9.8-11.6) sec INR Ratio APTT (24.3-30.1) sec Sodium (136-145) meq/L Potassium (3.5-5.1) meq/L Chloride (98-107) meq/L Carbon Dioxide (21.0-32.0) meq/L Anion Gap (5-15) meq/L BUN (7-18) mg/dL Creatinine (0.60-1.30) mg/dL Estimated GFR (>89) mL/min POC Glucose 166 H (68-110) mg/dl Random Glucose (74-106) mg/dL Lactic Acid (0.4-2.0) mmol/L Calcium (8.5-10.1) mg/dL Magnesium (1.5-2.5) mg/dL Total Bilirubin (0.2-1.0) mg/dL AST (15-37) U/L ALT (12-78) U/L Alkaline Phosphatase (45-117) U/L C-Reactive Protein (0.00-0.30) mg/dL Total Protein (6.4-8.2) g/dL Albumin (3.4-5.0) g/dL Imaging Data Radiologist's impression: Lumbar Spine X-Ray 07/18/18 19:56 CONCLUSION: 1. No compression deformities seen. 2. Multilevel degenerative changes in the posterior elements of the lower lumbar spine, grade 1 anterolisthesis at L4-5, and moderately severe right upper lumbar scoliosis. Hand X-Ray 07/18/18 20:57 CONCLUSION: Soft tissues are and mild periosteal reaction the proximal phalanx of the fourth digit. Discharge Plan Discharge Disposition Patient Disposition: 30 Still Patient Discharge Condition Condition: Stable Discharge Details Diagnosis: Osteomyelitis, Diabetes, Strain of lumbar region, Lumbar radiculopathy, Hyponatremia Physicians Team ED Provider: Rg Metcalf ED Midlevel Provider: Amna Prince Primary Care Provider: Reilly Jaime Attending Provider: Eloisa Fitzgerald Other Providers: Slim Slaughter Status ED Status: Left Department Discharge Information Discharge Date/Time: 07/18/18 23:51
[2018-07-18] MEDS ORDERED: Vancomycin Inj 1,000 MG in Sodium Chlor 0.9% Inj 250 ML IV.SIG STA (21:08)
[2018-07-18] MEDS ORDERED: Piperacil/Tazo 4.5 GM Premix 4.5 GM/100 ML BAG IV.SIG STA (21:08)
--- NOTE | 2018-07-18 21:30 | XR ---
EXAM DATE: 07/18/2018 9:19 PM EDT AGE/SEX: 58 years / Male INDICATIONS: Left hand pain, redness, and swelling. CLINICAL DATA: This is the patient's initial encounter. Patient reports that signs and symptoms have been present for 3 weeks and indicates a pain score of 10/10. MEDICAL/SURGICAL HISTORY: . Hypertension. Diabetes mellitus type II. . Cardiac ablation. COMPARISON: No prior exams available for comparison. FINDINGS: There is moderate soft tissue swelling about the fourth digit adjacent to the proximal phalanx. There is subtle linear densities along the medial and lateral cortex of the fourth proximal phalanx sugges ting periosteal reaction. The remainder of the osseous structures of the hand are intact. Vascular ca lcification in the radial artery. CONCLUSION: Soft tissues are and mild periosteal reaction the proximal phalanx of the fourth digit. Electronically signed by: Trenton Dolan MD 07/18/2018 9:29 PM EDT
[2018-07-18 21:43] LABS: Baso # (Auto) 0.1 th/mm3 (0.0-0.2); Baso % (Auto) 0.6 % (0.0-2.0); Eos # (Auto) 0.1 th/mm3 (0.0-0.4); Eos % (Auto) 0.5 % (0.0-4.0); Hematocrit 29.9 % (39.0-51.0); Hemoglobin 9.8 gm/dL (13.0-17.0); Lymph # (Auto) 1.8 th/mm3 (1.0-4.8); Lymph % (Auto) 13.7 % (9.0-44.0); Mean Corpuscular HGB Conc 32.9 % (32.0-36.0); Mean Corpuscular Hemoglobin 26.6 pg (27.0-34.0); Mean Corpuscular Volume 80.7 fL (80.0-100.0); Mean Platelet Volume 6.2 fL (7.0-11.0); Mono # (Auto) 1.1 th/mm3 (0.0-0.9); Mono % (Auto) 8.3 % (0.0-8.0); Neut # (Auto) 9.9 th/mm3 (1.8-7.7); Neut % (Auto) 76.9 % (16.0-70.0); Platelet Count 520 th/mm3 (150-450); Red Blood Count 3.71 mil/mm3 (4.50-5.90); Red Cell Distribution Width 16.4 % (11.6-17.2); White Blood Count 12.9 th/mm3 (4.0-11.0)
[2018-07-18] MEDS ORDERED: Orphenadrine Inj 60 MG/2 ML Ampul IV.PUSH ONE (21:51)
[2018-07-18] MEDS ORDERED: Ketorolac Inj 30 MG/ML (IVP) Vial IV.PUSH ONE (21:51)
[2018-07-18 22:01] LABS: INR 1.1 Ratio; Prothrombin Time 11.2 sec (9.8-11.6)
[2018-07-18 22:10] LABS: Albumin 2.7 g/dL (3.4-5.0); Anion Gap 10 meq/L (5-15); Aspartate Aminotransferase 15 U/L (15-37); Blood Urea Nitrogen 35 mg/dL (7-18); Calcium 8.9 mg/dL (8.5-10.1); Carbon Dioxide 26.3 meq/L (21.0-32.0); Chloride 93 meq/L (98-107); Glomerular Filtration Rate Greater Than 89 mL/min (>89); Glucose,Random 205 mg/dL (74-106); Magnesium 1.9 mg/dL (1.5-2.5); Sodium 129 meq/L (136-145)
[2018-07-18 22:11] LABS: Alanine Aminotransferase 16 U/L (12-78)
[2018-07-18 22:13] LABS: Alkaline Phosphatase 118 U/L (45-117); Total Protein 8.9 g/dL (6.4-8.2)
[2018-07-18] MEDS ORDERED: Morphine Inj 4 MG/ML Vial IV.PUSH PRN (23:11)
[2018-07-18] MEDS ORDERED: Vancomycin Consult Pharmacy OTHER PRN (23:12)
[2018-07-18] MEDS ORDERED: Bisacodyl 10 MG Supp RECTAL PRN (23:14)
[2018-07-18] MEDS ORDERED: Dextrose 50% in Water 50 ML Vial IV.PUSH PRN (23:15)
--- NOTE | 2018-07-18 23:27 | P.HP ---
History of Present Illness Service: [facility] Primary Care Physician: Reilly Jaime MD History of Present Illness: 58-year-old male with past medical history significant for hypertension, hyperlipidemia, GERD, diabetes mellitus and atrial fibrillation status post ablation presents to the emergency department for evaluation of back pain. The patient reports he was getting out of the car when he twisted his back and has had severe back pain since that time. He has a left swollen hand that is worse on the fourth digit and the dorsal surface of the hand with surrounding erythema that extends up the arm. The patient reports he has previously been seen by hand surgery, Dr. Slaughter, he wanted to do surgery on his hand but was unable to due to "an abnormal EKG." The patient is a poor historian. He reports he has been on 28 different antibiotics over the past several months. He also reports that he has been seen by infectious disease for osteomyelitis of the right foot but is not currently taking any antibiotics at this time. He denies any recent fever/chills. No chest pain or shortness of breath. No abdominal pain. No nausea/vomiting/diarrhea. Inpatient Certification: I certify that the inpatient services were ordered in accordance with Medicare regulations governing the order. This includes certification that hospital inpatient services are reasonable and necessary and in the case of services not specified as inpatient-only under 42 CFR 419.22(n), that they are appropriately provided as inpatient services in accordance to with the 2-midnight benchmark under 43 CFR 412.3(e) Estimated Total Length of Stay (Days): 2 Plans for Post Hospital Care: Not yet determined Review of Systems All other systems reviewed negative except as stated in HPI [facility] - History History Provided By: Patient - Medical History Medical History: Medical History (Last Updated 07/18/18 @ 23:20 by Eloisa Fitzgerald MD) Amputated toe GERD (gastroesophageal reflux disease) Hyperlipidemia Back pain Hypertension Osteomyelitis Afib Diabetes - Surgical History Surgical History: Surgical History (Last Updated 07/18/18 @ 23:20 by Eloisa Fitzgerald MD) H/O foot surgery - Family History Family History: Family History (Last Updated 07/18/18 @ 23:20 by Eloisa Fitzgerald MD) Other Coronary artery disease - Tobacco History Second Hand Smoke Exposure: No Smoking Status: Never smoker - Alcohol History How Often Do You Have a Drink Containing Alcohol: Never - Substance Use History Substance History: No History of Abuse - Travel History Recent Travel in the [place] Within the Last 8 Weeks: No Recent Travel Out of the Country Within the Last 8 Weeks: No - Immunization History Tetanus Immunization: Unsure Hx Influenza Vaccine This Season: No Medications and Allergies Allergies Allergy/AdvReac Type Severity Reaction Status Date / Time *MDRO Multi-Drug Resistant AdvReac Unknown MRSA Uncoded 06/16/17 16:34 Organism Home Medications Medication Instructions Recorded Confirmed Type apixaban [Eliquis] 5 mg PO BID 06/09/18 06/09/18 History diltiazem HCl 240 mg PO DAILY 06/09/18 06/09/18 History furosemide 20 mg PO BID 06/09/18 06/09/18 History insulin glargine [Lantus Solostar 50 unit SUB-Q BID 06/09/18 06/09/18 History U-100 Insulin] pantoprazole [Protonix] 40 mg PO DAILY 06/09/18 06/09/18 History ramipril 2.5 mg PO DAILY 06/09/18 06/09/18 History Exam Vital signs: Vital Signs 07/18/18 19:07 07/18/18 22:58 Temperature 98.5 F Pulse Rate 99 H 81 Respiratory Rate 20 20 Blood Pressure 125/86 136/66 Pulse Oximetry 98 97 Intake & Output 07/18/18 07/18/18 07/19/18 06:59 18:59 06:59 Weight 90.718 kg Narrative: Gen.: No acute distress Head: Normocephalic. Atraumatic. EENT: Pupils equal round and reactive to light. Nose without drainage. Airway intact. Throat without injection. Cardiovascular: Regular rate and rhythm. No murmurs, rubs or gallops. Respiratory: Lungs clear to auscultation bilaterally. No wheezes or rhonchi. Abdomen: Soft, nontender, nondistended. No peritoneal signs. Musculoskeletal: No gross deformities. No edema. Skin: Erythema and edema of the fourth digit left hand that extends up the hand into the forearm. Neuro: Sensory and motor grossly intact. Cranial nerves II through XII grossly intact. Results - Labs CBC & Chem 7: 07/18/18 21:18 07/18/18 21:18 Labs: Laboratory Results - last 24 hr 07/18/18 07/18/18 07/18/18 21:18 21:18 21:18 WBC RBC Hgb Hct MCV MCH MCHC RDW Plt Count MPV Neut % (Auto) Lymph % (Auto) Mellette % (Auto) Eos % (Auto) Baso % (Auto) Neut # (Auto) Lymph # (Auto) Mellette # (Auto) Eos # (Auto) Baso # (Auto) WBC Differential Differential Comment ESR Greater than 140 H PT 11.2 INR 1.1 APTT 35.0 H Sodium Potassium Chloride Carbon Dioxide Anion Gap BUN Creatinine Estimated GFR Random Glucose Lactic Acid Calcium Magnesium 1.9 Total Bilirubin AST ALT Alkaline Phosphatase C-Reactive Protein 9.00 H Total Protein Albumin 07/18/18 07/18/18 07/18/18 21:18 21:18 21:18 WBC 12.9 H RBC 3.71 L Hgb 9.8 L Hct 29.9 L MCV 80.7 MCH 26.6 L MCHC 32.9 RDW 16.4 Plt Count 520 H MPV 6.2 L Neut % (Auto) 76.9 H Lymph % (Auto) 13.7 Mellette % (Auto) 8.3 H Eos % (Auto) 0.5 Baso % (Auto) 0.6 Neut # (Auto) 9.9 H Lymph # (Auto) 1.8 Mellette # (Auto) 1.1 H Eos # (Auto) 0.1 Baso # (Auto) 0.1 WBC Differential . Differential Comment Auto diff final ESR PT INR APTT Sodium 129 L Potassium 4.0 Chloride 93 L Carbon Dioxide 26.3 Anion Gap 10 BUN 35 H Creatinine 0.78 Estimated GFR Greater than 89 Random Glucose 205 H Lactic Acid 0.7 Calcium 8.9 Magnesium Total Bilirubin 0.3 AST 15 ALT 16 Alkaline Phosphatase 118 H C-Reactive Protein Total Protein 8.9 H Albumin 2.7 L - Imaging Impressions Lumbar Spine X-Ray 07/18/18 19:56 CONCLUSION: 1. No compression deformities seen. 2. Multilevel degenerative changes in the posterior elements of the lower lumbar spine, grade 1 anterolisthesis at L4-5, and moderately severe right upper lumbar scoliosis. Hand X-Ray 07/18/18 20:57 CONCLUSION: Soft tissues are and mild periosteal reaction the proximal phalanx of the fourth digit. Caprini VTE Risk Assessment Caprini VTE Risk Assessment: Moderate/High Risk (score >= 2) Caprini Risk Assessment Model: Point Value = 1 Point Value = 2 Point Value = 3 Point Value = 5 Age 41-60 Minor surgery BMI > 25 kg/m2 Swollen legs Varicose veins or History of unexplained or recurrent spontaneous Oral contraceptives or hormone replacement Sepsis (< 1 month) Serious lung disease, including pneumonia (< 1 month) Abnormal pulmonary function Acute myocardial infarction Congestive heart failure (< 1 month) History of inflammatory bowel disease Medical patient at bed rest Age 61-74 Arthroscopic surgery Major open surgery (> 45 min) Laparoscopic surgery (> 45 min) Malignancy Confined to bed (> 72 hours) Immobilizing plaster cast Central venous access Age >= 75 History of VTE Family history of VTE Factor V Leiden Prothrombin [id number] Lupus anticoagulant Anticardiolipin antibodies Elevated serum homocysteine Heparin-induced thrombocytopenia Other congenital or acquired thrombophilia Stroke (< 1 month) Elective arthroplasty Hip, pelvis, or leg fracture Acute spinal cord injury (< 1 month) Prophylaxis Regimen: Total Risk Factor Score Risk Level Prophylaxis Regimen 0-1 Low Early ambulation 2 Moderate Order ONE of the following: *Sequential Compression Device (SCD) *Heparin 5000 units SQ BID 3-4 Higher Order ONE of the following medications: *Heparin 5000 units SQ TID *Enoxaparin/Lovenox 40 mg SQ daily (WT < 150 kg, CrCl > 30 mL/min) *Enoxaparin/Lovenox 30 mg SQ daily (WT < 150 kg, CrCl > 10-29 mL/min) *Enoxaparin/Lovenox 30 mg SQ BID (WT < 150 kg, CrCl > 30 mL/min) AND/OR *Sequential Compression Device (SCD) 5 or more Highest Order ONE of the following medications: *Heparin 5000 units SQ TID (Preferred with Epidurals) *Enoxaparin/Lovenox 40 mg SQ daily (WT < 150 kg, CrCl > 30 mL/min) *Enoxaparin/Lovenox 30 mg SQ daily (WT < 150 kg, CrCl > 10-29 mL/min) *Enoxaparin/Lovenox 30 mg SQ BID (WT < 150 kg, CrCl > 30 mL/min) AND *Sequential Compression Device (SCD) Assessment and Plan - Plan Assessment/plan: 1. Hand cellulitis/? Flexor tenosynovitis/OM Hand x-ray significant for periosteal reaction of the proximal phalanx of the left fourth digit Vancomycin/Zosyn Blood cultures pending Hand surgery consulted, appreciate recommendations 2. Atrial fibrillation Status post ablation Holding home Eliquis Continue home medications once reconciled 3. Diabetes mellitus Holding long-acting insulin given patient n.p.o. Sliding-scale insulin Monitor blood glucose 4. Hypertension/hyperlipidemia Continue home medications 5. Back pain Lumbar spine x-ray negative for bony abnormality Baclofen FEN N.p.o. Electrolytes: Monitor and replete as needed NS at 100 cc/hour
[2018-07-19] MEDS ORDERED: Vancomycin Inj 1,000 MG in Sodium Chlor 0.9% Inj 250 ML IV.SIG ONE ×2
[2018-07-19] MEDS: Sod Chloride 0.9% Inj 1,000 ML IV.CONT SCH ×2 (00:36→12:52)
[2018-07-19] MEDS: Baclofen 10 MG Tablet PO SCH ×4 (00:36→21:34)
[2018-07-19] MEDS: Piperacil/Tazo 3.375 GM Premix 50 ML IV.SIG SCH ×4 (03:17→21:59)
[2018-07-19] MEDS: Insulin NovoLOG Aspart Correctional Sugar Inj SQ SCH ×5 (03:20→20:44)
[2018-07-19] MEDS: Senna/Docusate Sodium 8.6/50 MG Tablet PO SCH ×2 (08:05→20:42)
--- NOTE | 2018-07-19 11:02 | P.PNIM ---
Subjective Interval history: Patient reports the pain in left hand is not controlled. He would like his home dose of oxycodone. Denies any chest pain shortness of breath. Denies nausea vomiting. Physical Exam Vital signs: Vital Signs 07/18/18 19:07 07/18/18 22:58 07/19/18 00:00 Temperature 98.5 F 97.7 F Pulse Rate 99 H 81 83 Respiratory Rate 20 20 20 Blood Pressure 125/86 136/66 120/58 L Pulse Oximetry 98 97 99 07/19/18 08:00 Temperature 97.4 F L Pulse Rate 75 Respiratory Rate 17 Blood Pressure 133/69 Pulse Oximetry 90 L Intake & Output 07/18/18 07/19/18 07/19/18 18:59 06:59 18:59 Intake Total 650 / 650 Balance 650 / 650 Weight 91.1 kg Intake: IV 650 / 650 Zosyn 3.375 GM Premix 50 ML @ 50 / 50 100 mls/hr IV.SIG Q6H ROBBIE Rx#: [id number] Zosyn 4.5 GM Premix 4.5 gm In 100 / 100 100 ml @ 200 mls/hr IV.SIG STAT STA Rx#:[id number] Vancomycin Inj 1,000 MG In NS 500 / 500 Inj 250 ML @ 250 mls/hr IV.SIG ONCE ONE Rx#:[id number] Other: Date of Last Bowel Movement 07/18/18 # Bowel Movements 0 Narrative: GENERAL: Patient sitting up in bed. Appears comfortable. SKIN: Warm and dry. HEAD: Normocephalic. EYES: No scleral icterus. No injection or drainage. NECK: Supple, trachea midline. No JVD. CARDIOVASCULAR: Regular rate and rhythm without murmurs, gallops, or rubs. RESPIRATORY: Breath sounds equal bilaterally. No accessory muscle use. GASTROINTESTINAL: Abdomen soft, non-tender, nondistended. MUSCULOSKELETAL: No cyanosis, or edema. Left fourth digit of the hand with swelling, erythema. No broken skin noted. Right foot dressed with dressing clean dry and intact BACK: Nontender without obvious deformity. No CVA tenderness. Results - Labs CBC & Chem 7: 07/18/18 21:18 07/18/18 21:18 Laboratory Results - last 24 hr 07/18/18 07/18/18 07/18/18 21:18 21:18 21:18 WBC RBC Hgb Hct MCV MCH MCHC RDW Plt Count MPV Neut % (Auto) Lymph % (Auto) [place] % (Auto) Eos % (Auto) Baso % (Auto) Neut # (Auto) Lymph # (Auto) [place] # (Auto) Eos # (Auto) Baso # (Auto) WBC Differential Differential Comment ESR Greater than 140 H PT 11.2 INR 1.1 APTT 35.0 H Sodium Potassium Chloride Carbon Dioxide Anion Gap BUN Creatinine Estimated GFR POC Glucose Random Glucose Lactic Acid Calcium Magnesium 1.9 Total Bilirubin AST ALT Alkaline Phosphatase C-Reactive Protein 9.00 H Total Protein Albumin 07/18/18 07/18/18 07/18/18 21:18 21:18 21:18 WBC 12.9 H RBC 3.71 L Hgb 9.8 L Hct 29.9 L MCV 80.7 MCH 26.6 L MCHC 32.9 RDW 16.4 Plt Count 520 H MPV 6.2 L Neut % (Auto) 76.9 H Lymph % (Auto) 13.7 [place] % (Auto) 8.3 H Eos % (Auto) 0.5 Baso % (Auto) 0.6 Neut # (Auto) 9.9 H Lymph # (Auto) 1.8 [place] # (Auto) 1.1 H Eos # (Auto) 0.1 Baso # (Auto) 0.1 WBC Differential . Differential Comment Auto diff final ESR PT INR APTT Sodium 129 L Potassium 4.0 Chloride 93 L Carbon Dioxide 26.3 Anion Gap 10 BUN 35 H Creatinine 0.78 Estimated GFR Greater than 89 POC Glucose Random Glucose 205 H Lactic Acid 0.7 Calcium 8.9 Magnesium Total Bilirubin 0.3 AST 15 ALT 16 Alkaline Phosphatase 118 H C-Reactive Protein Total Protein 8.9 H Albumin 2.7 L 07/19/18 07/19/18 03:18 07:33 WBC RBC Hgb Hct MCV MCH MCHC RDW Plt Count MPV Neut % (Auto) Lymph % (Auto) [place] % (Auto) Eos % (Auto) Baso % (Auto) Neut # (Auto) Lymph # (Auto) [place] # (Auto) Eos # (Auto) Baso # (Auto) WBC Differential Differential Comment ESR PT INR APTT Sodium Potassium Chloride Carbon Dioxide Anion Gap BUN Creatinine Estimated GFR POC Glucose 166 H 200 H Random Glucose Lactic Acid Calcium Magnesium Total Bilirubin AST ALT Alkaline Phosphatase C-Reactive Protein Total Protein Albumin - Imaging Impressions Lumbar Spine X-Ray 07/18/18 19:56 CONCLUSION: 1. No compression deformities seen. 2. Multilevel degenerative changes in the posterior elements of the lower lumbar spine, grade 1 anterolisthesis at L4-5, and moderately severe right upper lumbar scoliosis. Hand X-Ray 07/18/18 20:57 CONCLUSION: Soft tissues are and mild periosteal reaction the proximal phalanx of the fourth digit. Assessment and Plan - Plan Assessment/plan: //Hand cellulitis/? Flexor tenosynovitis/OM Hand x-ray significant for periosteal reaction of the proximal phalanx of the left fourth digit Vancomycin/Zosyn Blood cultures pending Hand surgery consulted, appreciate recommendations = Follow-up hand surgery recommendations. Will adjust pain meds. //Right foot osteomyelitis Patient says he follows with podiatry and infectious disease as outpatient. Will consult infectious disease due to new finding of osteomyelitis and left hand without obvious broken skin. Will continue antibiotics. //Atrial fibrillation Status post ablation Holding home Eliquis Continue home medications //Diabetes mellitus Holding long-acting insulin given patient n.p.o. Sliding-scale insulin Monitor blood glucose //Hypertension/hyperlipidemia Continue home medications //Back pain Lumbar spine x-ray negative for bony abnormality Baclofen FEN N.p.o. Electrolytes: Monitor and replete as needed NS at 100 cc/hour Discussed Condition With: Patient, nurse Discharge Planning: Home pending clearance by hand surgery, ID.
[2018-07-19] MEDS: dilTIAZem CD 240 MG Capsule PO SCH (13:03)
[2018-07-19] MEDS: Vancomycin Inj 1,500 MG in Sodium Chlor 0.9% Inj 500 ML IV.SIG SCH (14:30)
--- NOTE | 2018-07-19 19:49 | MB ---
cc: Brandon Ignacio MD DATE: 07/19/2018 REQUESTING PHYSICIAN: Jamari Gee MD REASON FOR CONSULTATION: 1. Hand osteomyelitis. 2. Diabetes mellitus. HISTORY OF PRESENT ILLNESS: This is a 58-year-old white male who presented to the emergency department, yesterday with complaints of back pain. The patient notes that he twisted his back while getting out of his motor vehicle and he also noted pain in his left hand. He had been experiencing pain and discomfort in the left ankle for a couple of weeks and he was supposed to see a hand doctor to have an assessment for surgery on the left hand, but he had some preop evaluation to be done and there was delay in getting that performed. He states that his left hand became painful and swollen, and there was redness extending up his wrist and arm, up to the elbow. He was admitted and started on IV antibiotics. An x-ray of the hand was performed and it showed moderate soft tissue swelling about the fourth digit adjacent to the proximal phalanx and linear densities along the medial and lateral cortex of the fourth proximal phalanx suggesting periosteal reaction. The patient has redness involving the left fourth digit and the palmar aspect of the left hand at the base of the fourth finger, and also the dorsal aspect of the left hand is swollen and has erythema. Currently, no erythema extends above the wrist. The patient denies nausea, vomiting, fever, chills, or shortness of breath. The patient recently was treated for osteomyelitis involving the right foot. Sedimentation rate is greater than 140. White count is elevated at 12.9. Blood cultures have no growth in 1 day. PAST MEDICAL HISTORY: Gastroesophageal reflux disease, toe amputations, diabetes mellitus, hyperlipidemia, hypertension, atrial fibrillation, osteomyelitis involving the right foot. MEDICATIONS: 1. Vancomycin. 2. Piperacillin/tazobactam. 3. Altace. 4. Aliyah-Colace. 5. Senokot. 6. Protonix. 7. Oxycodone. 8. Insulin. 9. Cardizem. 10. Baclofen. SOCIAL HISTORY: No tobacco, no alcohol, no illicit drugs. FAMILY HISTORY: Noncontributory. REVIEW OF SYSTEMS: All systems reviewed are negative, except for pain in the left hand. PHYSICAL EXAMINATION: GENERAL: This is a slender, well-developed male in no acute distress. VITAL SIGNS: Temperature 97.8, blood pressure 128/74, respirations 18, heart rate 73. HEENT: Head is atraumatic. Extraocular movements grossly intact. Pupils reactive to light. No icterus. Oropharynx moist mucosa without lesions. NECK: Supple without adenopathy. LUNGS: Clear breath sounds. HEART: Regular S1, S2, without murmurs, rubs or gallops. ABDOMEN: Bowel sounds present, flat, soft, nontender. RECTAL: Not performed. EXTREMITIES: Some muscle wasting is apparent at the upper extremities. The left hand has erythema at the palmar aspect at the base of the fourth finger and also swelling of the dorsal aspect of the hand and the fourth finger is completely swollen and erythematous. Range of motion of the fourth finger is limited. Sensation is intact. Radial and ulnar pulses are normal at 2+. SKIN: No diffuse rash. NEUROLOGIC: No gross focal finding. PSYCHIATRIC: The patient is calm and cooperative. LABORATORY DATA: WBC 12.9, platelets 520, hemoglobin 9.8, creatinine 0.78, BUN 35, sodium 132. IMPRESSION: 1. Cellulitis of the left forth finger and left hand. 2. Probable osteomyelitis/tenosynovitis of the left hand. RECOMMENDATIONS: 1. Continue vancomycin. 2. Continue piperacillin/tazobactam. 3. The patient to be evaluated by hand surgeon. Obtain culture and surgical procedure performed on the left hand. 4. Monitor clinical response to antibiotics and follow cultures, if cultures are obtained. Thank you for this consultation. I will follow the patient's progress along with you and will make further recommendations upon followup. The patient has acute ongoing infection on his left hand and needs antibiotic treatment. Because we do not have a culture to dictate antibiotic choice, it is difficult to make a choice for oral antibiotics at this time. I would continue the current antibiotic and follow the infection. Thank you for this consultation. MD MURRAY Peacock/citlaly , 05:59 PM , 06:14 PM SETH
[2018-07-19] MEDS: Furosemide 20 MG Tablet PO SCH (20:43)
[2018-07-19] MEDS: Insulin Detemir Inj 1,000 UNIT/10 ML Vial SQ SCH (20:43)
[2018-07-20] MEDS: Vancomycin Inj 1,500 MG in Sodium Chlor 0.9% Inj 500 ML IV.SIG SCH ×2 (01:01→14:13)
[2018-07-20] MEDS: Insulin NovoLOG Aspart Correctional Sugar Inj SQ SCH ×5 (03:30→21:10)
[2018-07-20] MEDS: Piperacil/Tazo 3.375 GM Premix 50 ML IV.SIG SCH ×4 (03:38→21:09)
[2018-07-20] MEDS: Sod Chloride 0.9% Inj 1,000 ML IV.CONT SCH ×2 (03:39→13:35)
[2018-07-20] MEDS: Baclofen 10 MG Tablet PO SCH ×3 (05:43→21:10)
[2018-07-20 08:09] LABS: Baso # (Auto) 0.1 th/mm3 (0.0-0.2); Baso % (Auto) 0.9 % (0.0-2.0); Eos # (Auto) 0.2 th/mm3 (0.0-0.4); Eos % (Auto) 1.9 % (0.0-4.0); Hematocrit 26.4 % (39.0-51.0); Hemoglobin 8.7 gm/dL (13.0-17.0); Lymph # (Auto) 1.2 th/mm3 (1.0-4.8); Lymph % (Auto) 13.9 % (9.0-44.0); Mean Corpuscular HGB Conc 32.9 % (32.0-36.0); Mean Corpuscular Hemoglobin 26.9 pg (27.0-34.0); Mean Corpuscular Volume 81.7 fL (80.0-100.0); Mean Platelet Volume 6.4 fL (7.0-11.0); Mono # (Auto) 0.8 th/mm3 (0.0-0.9); Mono % (Auto) 9.6 % (0.0-8.0); Neut # (Auto) 6.5 th/mm3 (1.8-7.7); Neut % (Auto) 73.7 % (16.0-70.0); Platelet Count 365 th/mm3 (150-450); Red Blood Count 3.23 mil/mm3 (4.50-5.90); Red Cell Distribution Width 16.1 % (11.6-17.2); White Blood Count 8.8 th/mm3 (4.0-11.0)
[2018-07-20 08:31] LABS: Albumin 2.1 g/dL (3.4-5.0); Anion Gap 8 meq/L (5-15); Blood Urea Nitrogen 15 mg/dL (7-18); Calcium 8.5 mg/dL (8.5-10.1); Carbon Dioxide 26.2 meq/L (21.0-32.0); Chloride 102 meq/L (98-107); Glomerular Filtration Rate Greater Than 89 mL/min (>89); Glucose,Random 141 mg/dL (74-106); Magnesium 1.8 mg/dL (1.5-2.5); Phosphorus 3.1 mg/dL (2.5-4.9); Sodium 136 meq/L (136-145)
[2018-07-20] MEDS: Furosemide 20 MG Tablet PO SCH ×2 (08:39→21:08)
[2018-07-20] MEDS: Senna/Docusate Sodium 8.6/50 MG Tablet PO SCH ×2 (08:39→21:10)
[2018-07-20] MEDS: Ramipril 2.5 MG Capsule PO SCH (08:39)
[2018-07-20] MEDS: dilTIAZem CD 240 MG Capsule PO SCH (08:39)
[2018-07-20] MEDS: Insulin Detemir Inj 1,000 UNIT/10 ML Vial SQ SCH ×2 (08:53→21:09)
--- NOTE | 2018-07-20 09:14 | P.PNIM ---
Subjective Interval history: Patient reports that pain in left hand continues. Physical Exam Vital signs: Vital Signs 07/19/18 12:00 07/19/18 20:24 07/19/18 23:57 Temperature 97.8 F 97.8 F 100.2 F H Pulse Rate 73 84 95 H Respiratory Rate 18 18 17 Blood Pressure 128/74 160/76 H 120/56 L Pulse Oximetry 98 96 94 L 07/20/18 04:08 07/20/18 06:15 07/20/18 08:00 Temperature 98.5 F 97.7 F Pulse Rate 80 72 Respiratory Rate 17 20 16 Blood Pressure 125/67 138/62 Pulse Oximetry 95 97 Intake & Output 07/19/18 07/20/18 07/20/18 18:59 06:59 18:59 Intake Total 1777.5 / 1777.5 2652.5 / 2652.5 Output Total 900 / 900 1100 / 1100 Balance 877.5 / 877.5 1552.5 / 1552.5 Weight 93 kg Intake: IV 1357.5 / 1357.5 1872.5 / 1872.5 NS Inj 1,000 ML @ 60 mls/hr IV. 1000 / 1000 1000 / 1000 CONT .[id number] ROBBIE Rx#:[id number] Zosyn 3.375 GM Premix 50 ML @ 100 / 100 100 / 100 100 mls/hr IV.SIG Q6H ROBBIE Rx#: [id number] Vancomycin Inj 1,500 MG In NS 257.5 / 257.5 772.5 / 772.5 Inj 500 ML @ 257.5 mls/hr IV. SIG Q12H ROBBIE Rx#:[id number] Oral 420 / 420 780 / 780 Output: Urine 900 / 900 1100 / 1100 Other: Date of Last Bowel Movement 07/18/18 # Bowel Movements 0 Narrative: GENERAL: Patient sitting up in bed. Appears comfortable. SKIN: Warm and dry. HEAD: Normocephalic. EYES: No scleral icterus. No injection or drainage. NECK: Supple, trachea midline. No JVD. CARDIOVASCULAR: Regular rate and rhythm without murmurs, gallops, or rubs. RESPIRATORY: Breath sounds equal bilaterally. No accessory muscle use. GASTROINTESTINAL: Abdomen soft, non-tender, nondistended. MUSCULOSKELETAL: No cyanosis, or edema. Left fourth digit of the hand with swelling, erythema, somewhat improved from yesterday. No broken skin noted. Right foot dressed with dressing clean dry and intact BACK: Nontender without obvious deformity. No CVA tenderness. Results - Labs CBC & Chem 7: 07/20/18 07:20 07/20/18 07:20 Laboratory Results - last 24 hr 07/19/18 07/19/18 07/19/18 12:58 16:55 20:35 WBC RBC Hgb Hct MCV MCH MCHC RDW Plt Count MPV Neut % (Auto) Lymph % (Auto) [place] % (Auto) Eos % (Auto) Baso % (Auto) Neut # (Auto) Lymph # (Auto) [place] # (Auto) Eos # (Auto) Baso # (Auto) WBC Differential Differential Comment Sodium Potassium Chloride Carbon Dioxide Anion Gap BUN Creatinine Estimated GFR POC Glucose 181 H 131 H 170 H Random Glucose Calcium Phosphorus Magnesium Albumin 07/20/18 07/20/18 07/20/18 03:38 07:20 07:20 WBC 8.8 RBC 3.23 L Hgb 8.7 L Hct 26.4 L MCV 81.7 MCH 26.9 L MCHC 32.9 RDW 16.1 Plt Count 365 MPV 6.4 L Neut % (Auto) 73.7 H Lymph % (Auto) 13.9 [place] % (Auto) 9.6 H Eos % (Auto) 1.9 Baso % (Auto) 0.9 Neut # (Auto) 6.5 Lymph # (Auto) 1.2 [place] # (Auto) 0.8 Eos # (Auto) 0.2 Baso # (Auto) 0.1 WBC Differential . Differential Comment Auto diff final Sodium 136 Potassium 4.0 Chloride 102 D Carbon Dioxide 26.2 Anion Gap 8 BUN 15 Creatinine 0.52 L Estimated GFR Greater than 89 POC Glucose 128 H Random Glucose 141 H Calcium 8.5 Phosphorus 3.1 Magnesium 1.8 Albumin 2.1 L D 07/20/18 07:54 WBC RBC Hgb Hct MCV MCH MCHC RDW Plt Count MPV Neut % (Auto) Lymph % (Auto) [place] % (Auto) Eos % (Auto) Baso % (Auto) Neut # (Auto) Lymph # (Auto) [place] # (Auto) Eos # (Auto) Baso # (Auto) WBC Differential Differential Comment Sodium Potassium Chloride Carbon Dioxide Anion Gap BUN Creatinine Estimated GFR POC Glucose 141 H Random Glucose Calcium Phosphorus Magnesium Albumin Microbiology 07/18/18 21:13 Blood - Peripheral Aerobic Blood Culture - Preliminary No growth in 1 day 07/18/18 21:13 Blood - Peripheral Anaerobic Blood Culture - Preliminary No growth in 1 day 07/18/18 21:18 Blood - Peripheral Aerobic Blood Culture - Preliminary No growth in 1 day 07/18/18 21:18 Blood - Peripheral Anaerobic Blood Culture - Preliminary No growth in 1 day Assessment and Plan - Plan Assessment/plan: //Hand cellulitis/? Flexor tenosynovitis/OM Hand x-ray significant for periosteal reaction of the proximal phalanx of the left fourth digit Vancomycin/Zosyn Blood cultures pending Hand surgery consulted, appreciate recommendations = Follow-up hand surgery recommendations. Will adjust pain meds. = 07/20. Discussed with hand surgery. Will plan for surgery tomorrow. Appreciate assistance. //Right foot osteomyelitis Patient says he follows with podiatry and infectious disease as outpatient. Will consult infectious disease due to new finding of osteomyelitis and left hand without obvious broken skin. Will continue antibiotics. = ID following. Appreciate assistance. //Atrial fibrillation Status post ablation Holding home Eliquis Continue home medications //Diabetes mellitus Holding long-acting insulin given patient n.p.o. Sliding-scale insulin Monitor blood glucose //Hypertension/hyperlipidemia Continue home medications //Back pain Lumbar spine x-ray negative for bony abnormality Baclofen FEN N.p.o. Electrolytes: Monitor and replete as needed NS at 100 cc/hour Discharge Planning: Home pending clearance by hand surgery, ID.
[2018-07-20] MEDS ORDERED: Pharmacy Ordered Lab Info OTHER ONE (13:45)
--- NOTE | 2018-07-20 17:32 | ECG ---
Date Performed: 07/18/2018 Time Performed: 21:15:48 PTAGE: 58 years EKG: Sinus rhythm NORMAL ECG PREVIOUS TRACING : 06/17/2017 05.02 DOCTOR: Luz Maria Rizzo Interpretating Date/Time 07/20/2018 17:29:02
[2018-07-21] MEDS: Vancomycin Inj 1,750 MG in Sodium Chlor 0.9% Inj 500 ML IV.SIG SCH ×2 (01:19→13:18)
[2018-07-21] MEDS: Piperacil/Tazo 3.375 GM Premix 50 ML IV.SIG SCH ×4 (03:02→20:23)
[2018-07-21] MEDS: Insulin NovoLOG Aspart Correctional Sugar Inj SQ SCH ×5 (03:03→20:23)
[2018-07-21] MEDS: Sod Chloride 0.9% Inj 1,000 ML IV.CONT SCH ×2 (05:16→20:24)
[2018-07-21] MEDS: Baclofen 10 MG Tablet PO SCH ×3 (05:17→22:20)
[2018-07-21 06:27] LABS: Baso % (Auto) 0.3 % (0.0-2.0); Eos # (Auto) 0.1 th/mm3 (0.0-0.4); Eos % (Auto) 0.6 % (0.0-4.0); Hematocrit 24.1 % (39.0-51.0); Lymph # (Auto) 1.5 th/mm3 (1.0-4.8); Lymph % (Auto) 11.7 % (9.0-44.0); Mean Corpuscular HGB Conc 33.1 % (32.0-36.0); Mean Corpuscular Hemoglobin 26.8 pg (27.0-34.0); Mean Platelet Volume 6.4 fL (7.0-11.0); Mono # (Auto) 1.2 th/mm3 (0.0-0.9); Mono % (Auto) 9.7 % (0.0-8.0); Neut # (Auto) 9.7 th/mm3 (1.8-7.7); Neut % (Auto) 77.7 % (16.0-70.0); Platelet Count 378 th/mm3 (150-450); Red Blood Count 2.98 mil/mm3 (4.50-5.90); White Blood Count 12.5 th/mm3 (4.0-11.0)
[2018-07-21] MEDS ORDERED: Lidocaine 2% Inj 50 ML Vial ONE (07:15)
[2018-07-21] MEDS ORDERED: Bupivacaine PF 0.5% Inj 30 ML Vial ONE (07:15)
[2018-07-21 07:27] LABS: Albumin 2.3 g/dL (3.4-5.0); Anion Gap 11 meq/L (5-15); Blood Urea Nitrogen 29 mg/dL (7-18); Calcium 8.8 mg/dL (8.5-10.1); Carbon Dioxide 27.3 meq/L (21.0-32.0); Chloride 100 meq/L (98-107); Glomerular Filtration Rate Greater Than 89 mL/min (>89); Glucose,Random 75 mg/dL (74-106); Phosphorus 3.5 mg/dL (2.5-4.9); Potassium 3.7 meq/L (3.5-5.1); Sodium 138 meq/L (136-145)
[2018-07-21] MEDS ORDERED: Chlorhexidine Gluconate 2% 1 Pack (2 Cloths) TOPICAL SCH (07:30)
[2018-07-21] MEDS ORDERED: Metoprolol Tartrate 25 MG Tablet PO SCH (07:30)
[2018-07-21] MEDS ORDERED: Sodium Chlor 0.9% Inj 500 ML IV.SIG SCH (08:00)
[2018-07-21] MEDS: dilTIAZem CD 240 MG Capsule PO SCH (08:12)
[2018-07-21] MEDS: Insulin Detemir Inj 1,000 UNIT/10 ML Vial SQ SCH ×2 (08:12→20:22)
[2018-07-21] MEDS: Ramipril 2.5 MG Capsule PO SCH (08:12)
[2018-07-21] MEDS: Furosemide 20 MG Tablet PO SCH ×2 (08:12→20:22)
[2018-07-21] MEDS: Senna/Docusate Sodium 8.6/50 MG Tablet PO SCH ×2 (08:13→20:23)
[2018-07-21] MEDS ORDERED: Neomycin/Polymyxin G.U. Irrigant 1 ML Ampul ONE (09:36)
--- NOTE | 2018-07-21 10:29 | P.OP ---
- Preoperative Diagnosis (1) Suppurative tenosynovitis of flexor tendon of left hand - Postoperative Diagnosis (1) Abscess of hand, left (2) Suppurative tenosynovitis of flexor tendon of left hand Comment: with midpalmar space abscess/suppuration Date of procedure: 07/21/18 Procedure: flexor tenosynovectomy left palm/ring finger incision and drainage midpalmar space left hand exploration and biopsy periosteum proximal phalanx left ring finger Anesthesia: GETA Surgeon: Slim Slaughter MD Estimated blood loss (mL): 10 Tourniquet time (min): 73 Pathology: other (swab from flexor tendon sheath left palm/ring finger for gram stain, aerobic/anareobic, fungal, afb, flexor tenosynovium and periosteum from proximal phalanx for pathology)
[2018-07-21] MEDS ORDERED: fentaNYL Citrate Inj 100 MCG/2 ML Ampul ONE (10:36)
[2018-07-21] MEDS ORDERED: *morphine SULFATE 4 MG/ML PERIprocedure ONLY ONE (11:05)
[2018-07-21] MEDS ORDERED: Lidocaine PF 1% Inj 5 ML Syringe INFILTRATN ONE (12:00)
--- NOTE | 2018-07-21 12:47 | MP ---
cc: Slim Slaughter MD DATE OF OPERATION: 07/21/2018 PREOPERATIVE DIAGNOSIS: Chronic flexor tenosynovitis, left palm/ring finger. POSTOPERATIVE DIAGNOSIS: Chronic flexor tenosynovitis, left palm/ring finger with abscess/separation mid palmar space, left palm. PROCEDURE PERFORMED: Flexor tenosynovectomy left palm/ring finger, incision and drainage mid palmar space left palm and exploration, periosteal biopsy proximal phalanx left ring finger. SURGEON: Slim Slaughter MD ANESTHESIA: General. ESTIMATED BLOOD LOSS: 10 mL TOURNIQUET TIME: 73 minutes at 250 mmHg. SPECIMEN: Swab was sent from the flexor tendon sheath for Gram stain, aerobic and anaerobic culture, fungal, and AFB cultures. Two specimens were sent, one from the flexor tenosynovium of the left palm and ring finger and the other specimen from the periosteum of the proximal phalanx, left ring finger, the back is stable. INDICATIONS: The patient is a 58-year-old male with a history of hypertension, diabetes, presented with complaints of pain and swelling of the left hand of several weeks' duration. The patient was being treated with multiple debridements and IV antibiotics for his chronic foot infection. He developed infection of the left palm and ring finger. The patient denied any injury to the left hand or the ring finger. He did have an MRI scan, which showed evidence of flexor tenosynovitis. X-ray of the left hand showed periosteal reaction around the proximal phalanx region of the ring finger. Clinically, the patient had fullness in the palm with flexion deformity of the ring finger and tenderness along the flexor tendon sheath along with swelling and erythema on the dorsal aspect of the hand and dorsal aspect of the proximal phalanx region of the ring finger. The patient was clinically diagnosed with flexor tenosynovitis, questionable osteomyelitis of the proximal phalanx, left ring finger. The patient was consented for flexor tenosynovectomy, left palm/ring finger. The patient was explained the risks and benefits of the procedure. PROCEDURE IN DETAIL: The patient was brought to the operating room under general anesthesia. The left upper extremity was sterilely prepped and draped. Incision site was marked in a zigzag fashion across the palm extending to the PIP joint of the ring finger, measuring about 7-8 cm. Another incision site was marked over the dorsal lateral aspect of the proximal phalanx region of the ring finger corresponding to the periosteal reaction on x-ray. After limb elevation, tourniquet was inflated to 250 mmHg. Incision was initially made in the palm and then extended across the ring finger. Soft tissue dissection was carried out. Bleeding points were cauterized with bipolar cautery. The palmar fascia was released along the length of the palm. On further exposure, there was evidence of extensive inflammation of the flexor tenosynovium with purulence within the region. The flexor tendon was exposed from the palm to the proximal phalanx region. The A2 jose was preserved. The A1 jose was released in a distal to proximal direction. There was extensive inflammatory tissue over the jose region which was debrided by blunt and sharp dissection. The flexor tenosynovium was debrided along the length of the tendon using rongeur and sharp dissection. The specimen was sent for culture and sensitivity. On further exploration, there was a pocket underneath the flexor tendon in the mid palm extending onto the dorsal aspect of the hand. Decision was made to proceed with an incision on the dorsal aspect of the hand corresponding to the mid palmar space. Soft tissue dissection was carried out on the dorsal aspect and the 2 wounds were connected in the mid palmar space draining the mid palmar region. Attention was then directed to the lateral aspect of the proximal phalanx. Incision was made over the dorsal lateral aspect of the finger. Soft tissue dissection was carried out. The extensor tendon was retracted dorsally. There was evidence of thickening of the periosteum, which was sent for specimen as a biopsy. Surface of the bone appeared to be hard and no evidence of involvement of the proximal phalanx intraoperatively was noted. Thorough wash of the wounds were carried out using normal saline mixed with irrigant. About 2 liters of the solution was used. The finger was put through passive range of motion during washing. Throughout the procedure, the neurovascular bundle was protected out of harm's way. There was extensive inflammatory tissue on the sides of the A1 jose and A2 jose region, which was extending onto the dorsal aspect of the finger, which was debrided. Tourniquet was deflated at 73 minutes. Bleeding points were cauterized with bipolar cautery. He had good distal circulation at the end of the procedure. Packing of the wounds were carried out including the mid palmar space with multiple 0.25 inch iodoform packing material. Skin flaps were approximated with 5-0 nylon and with corner stitches and the rest of the wound was loosely approximated with 4-0 nylon in a horizontal mattress interrupted fashion. About 10 mL of local anesthesia was injected across the incision site. Bulky hand dressing was applied, which was held in place by Sof-Rol and bias tape hand wrap. The patient was recovered and sent to recovery in stable condition. We will keep the limb elevated, follow up cultures and continue the antibiotics based on ID recommendation. Slim Slaughter MD SE/alice/mindy , 10:37 AM , 10:53 AM MTDD
--- NOTE | 2018-07-21 14:22 | P.PNIM ---
Subjective Interval history: Patient seen this afternoon around 1 PM. Says that pain is controlled. Denies any chest pain or shortness of breath. Physical Exam Vital signs: Vital Signs 07/20/18 15:17 07/20/18 18:43 07/20/18 20:00 Temperature 98.6 F 98.6 F Pulse Rate 93 H 109 H Respiratory Rate 16 18 20 Blood Pressure 140/65 132/66 Pulse Oximetry 98 94 L 07/21/18 00:00 07/21/18 07:43 07/21/18 07:51 Temperature 98.8 F 98.1 F Pulse Rate 87 77 Respiratory Rate 18 17 16 Blood Pressure 139/64 119/62 Pulse Oximetry 96 99 07/21/18 10:22 07/21/18 10:30 07/21/18 10:45 Temperature 98.4 F Pulse Rate 76 78 72 Respiratory Rate 16 16 16 Blood Pressure 121/61 120/63 109/57 L Pulse Oximetry 100 98 96 07/21/18 11:00 07/21/18 13:01 Temperature 97.5 F L Pulse Rate 70 70 Respiratory Rate 16 16 Blood Pressure 112/56 L 110/65 Pulse Oximetry 97 95 Intake & Output 07/20/18 07/21/18 07/21/18 18:59 06:59 18:59 Intake Total 1615 / 1615 850 / 850 1950 / 1950 Output Total 10 Balance 1615 / 1615 850 / 850 194 / 1940 Weight 94.1 kg Intake: IV 1615 / 1615 850 / 850 750 / 750 NS Inj 1,000 ML @ 60 mls/hr IV. 1000 / 1000 200 / 200 CONT .[id number] ROBBIE Rx#:[id number] LR 1000 mL Inj 1,000 ML @ 30 500 / 500 mls/hr IV.SIG .Q24H ROBBIE Rx#: [id number] Zosyn 3.375 GM Premix 50 ML @ 100 / 100 100 / 100 50 / 50 100 mls/hr IV.SIG Q6H ROBBIE Rx#: [id number] Vancomycin Inj 1,750 MG In NS 515 / 515 750 / 750 Inj 500 ML @ 257.5 mls/hr IV. SIG Q12H ROBBIE Rx#:[id number] Anesthesia Amount 1200 / 1200 Output: Estimated Blood Loss 10 10 Other: # Voids 2 Date of Last Bowel Movement 07/18/18 Narrative: GENERAL: Patient sitting up in bed. Appears comfortable. SKIN: Warm and dry. HEAD: Normocephalic. EYES: No scleral icterus. No injection or drainage. NECK: Supple, trachea midline. No JVD. CARDIOVASCULAR: Regular rate and rhythm without murmurs, gallops, or rubs. RESPIRATORY: Breath sounds equal bilaterally. No accessory muscle use. GASTROINTESTINAL: Abdomen soft, non-tender, nondistended. MUSCULOSKELETAL: No cyanosis, or edema. Left hand dressed. Dressing clean dry and intact. Right foot dressed with dressing clean dry and intact BACK: Nontender without obvious deformity. No CVA tenderness. Results - Labs CBC & Chem 7: 07/21/18 05:30 07/21/18 05:30 Laboratory Results - last 24 hr 07/20/18 07/20/18 07/20/18 13:50 16:43 21:08 WBC RBC Hgb Hct MCV MCH MCHC RDW Plt Count MPV Neut % (Auto) Lymph % (Auto) [place] % (Auto) Eos % (Auto) Baso % (Auto) Neut # (Auto) Lymph # (Auto) [place] # (Auto) Eos # (Auto) Baso # (Auto) WBC Differential Differential Comment Sodium Potassium Chloride Carbon Dioxide Anion Gap BUN Creatinine Estimated GFR POC Glucose 186 H 140 H Random Glucose Calcium Phosphorus Albumin Vancomycin Trough 10.6 H 07/21/18 07/21/18 07/21/18 03:01 05:30 05:30 WBC 12.5 H RBC 2.98 L Hgb 8.0 L Hct 24.1 L MCV 81.0 MCH 26.8 L MCHC 33.1 RDW 16.0 Plt Count 378 MPV 6.4 L Neut % (Auto) 77.7 H Lymph % (Auto) 11.7 [place] % (Auto) 9.7 H Eos % (Auto) 0.6 Baso % (Auto) 0.3 Neut # (Auto) 9.7 H Lymph # (Auto) 1.5 [place] # (Auto) 1.2 H Eos # (Auto) 0.1 Baso # (Auto) 0.0 WBC Differential . Differential Comment Auto diff final Sodium 138 Potassium 3.7 Chloride 100 Carbon Dioxide 27.3 Anion Gap 11 BUN 29 H Creatinine 0.82 Estimated GFR Greater than 89 POC Glucose 106 Random Glucose 75 Calcium 8.8 Phosphorus 3.5 Albumin 2.3 L Vancomycin Trough 08/26/18 08/26/18 08/26/18 07:16 10:32 11:41 WBC RBC Hgb Hct MCV MCH MCHC RDW Plt Count MPV Neut % (Auto) Lymph % (Auto) [place] % (Auto) Eos % (Auto) Baso % (Auto) Neut # (Auto) Lymph # (Auto) [place] # (Auto) Eos # (Auto) Baso # (Auto) WBC Differential Differential Comment Sodium Potassium Chloride Carbon Dioxide Anion Gap BUN Creatinine Estimated GFR POC Glucose 85 91 92 Random Glucose Calcium Phosphorus Albumin Vancomycin Trough Microbiology 07/18/18 21:13 Blood - Peripheral Aerobic Blood Culture - Preliminary No growth in 3 days 07/18/18 21:13 Blood - Peripheral Anaerobic Blood Culture - Preliminary No growth in 3 days 07/18/18 21:18 Blood - Peripheral Aerobic Blood Culture - Preliminary No growth in 3 days 07/18/18 21:18 Blood - Peripheral Anaerobic Blood Culture - Preliminary No growth in 3 days Assessment and Plan - Plan Assessment/plan: //Hand cellulitis/? Flexor tenosynovitis/OM Hand x-ray significant for periosteal reaction of the proximal phalanx of the left fourth digit Vancomycin/Zosyn Blood cultures pending Hand surgery consulted, appreciate recommendations = Follow-up hand surgery recommendations. Will adjust pain meds. = 07/20. Discussed with hand surgery. Will plan for surgery tomorrow. Appreciate assistance. = 07/21. Postop day 0. Follow-up left hand cultures. Appreciate podiatry assistance. Continue antibiotics. Follow pathology. //Right foot osteomyelitis Patient says he follows with podiatry and infectious disease as outpatient. Will consult infectious disease due to new finding of osteomyelitis and left hand without obvious broken skin. Will continue antibiotics. = ID following. Appreciate assistance. //Atrial fibrillation Status post ablation Holding home Eliquis Continue home medications //Diabetes mellitus Holding long-acting insulin given patient n.p.o. Sliding-scale insulin Monitor blood glucose //Hypertension/hyperlipidemia Continue home medications //Back pain Lumbar spine x-ray negative for bony abnormality Baclofen FEN N.p.o. Electrolytes: Monitor and replete as needed NS at 100 cc/hour Discharge Planning: Home pending clearance by hand surgery, ID.
[2018-07-22] MEDS: Acetaminophen 325 MG Tablet PO PRN (00:27)
[2018-07-22] MEDS: Piperacil/Tazo 3.375 GM Premix 50 ML IV.SIG SCH ×4 (02:58→20:47)
[2018-07-22] MEDS: Insulin NovoLOG Aspart Correctional Sugar Inj SQ SCH ×5 (03:05→20:50)
[2018-07-22] MEDS: Vancomycin Inj 1,750 MG in Sodium Chlor 0.9% Inj 500 ML IV.SIG SCH ×2 (03:33→14:00)
[2018-07-22] MEDS: Baclofen 10 MG Tablet PO SCH ×3 (05:33→21:01)
[2018-07-22] MEDS: dilTIAZem CD 240 MG Capsule PO SCH (09:04)
[2018-07-22] MEDS: Furosemide 20 MG Tablet PO SCH ×2 (09:04→20:47)
[2018-07-22] MEDS: Insulin Detemir Inj 1,000 UNIT/10 ML Vial SQ SCH ×2 (09:05→20:48)
[2018-07-22] MEDS: Senna/Docusate Sodium 8.6/50 MG Tablet PO SCH ×2 (09:05→20:47)
[2018-07-22] MEDS: Ramipril 2.5 MG Capsule PO SCH (09:05)
--- NOTE | 2018-07-22 11:51 | P.PNID ---
Subjective Remarks: Patient underwent incision and debridement of the left hand. The wound culture has no growth so far. Notes that he is having clear phlegm production. Pressure of 101 this morning. Denies chills, shortness of breath, diarrhea. This is a 58-year-old white male who presented to the emergency department, yesterday with complaints of back pain. The patient notes that he twisted his back while getting out of his motor vehicle and he also noted pain in his left hand. He had been experiencing pain and discomfort in the left ankle for a couple of weeks and he was supposed to see a hand doctor to have an assessment for surgery on the left hand, but he had some preop evaluation to be done and there was delay in getting that performed. He states that his left hand became painful and swollen, and there was redness extending up his wrist and arm, up to the elbow. He was admitted and started on IV antibiotics. An x-ray of the hand was performed and it showed moderate soft tissue swelling about the fourth digit adjacent to the proximal phalanx and linear densities along the medial and lateral cortex of the fourth proximal phalanx suggesting periosteal reaction. Past Medical History: PAST MEDICAL HISTORY: Gastroesophageal reflux disease, toe amputations, diabetes mellitus, hyperlipidemia, hypertension, atrial fibrillation, osteomyelitis involving the right foot. Allergies/Adverse Reactions: Allergies *MDRO Multi-Drug Resistant Organism Adverse Reaction (Unknown, Uncoded 06/16/17 16:34) MRSA MRSA (foot wound) - 02/12/15, 11/12/16, 03/29/17; (toe) - 03/2016 Objective Vital Signs 07/21/18 13:01 07/21/18 15:33 07/21/18 20:00 Temperature 97.5 F L 97.7 F 98.9 F Pulse Rate 70 85 90 Respiratory Rate 16 16 18 Blood Pressure 110/65 115/58 L 107/56 L Pulse Oximetry 95 91 L 92 L 07/22/18 00:00 07/22/18 04:00 07/22/18 08:00 Temperature 101.2 F H 98.8 F 98.0 F Pulse Rate 92 H 78 88 Respiratory Rate 18 18 17 Blood Pressure 130/60 134/78 144/65 H Pulse Oximetry 92 L 92 L 94 L Intake & Output 07/21/18 07/22/18 07/22/18 18:59 06:59 18:59 Intake Total 2517.5 / 2517.5 100 / 100 567.5 / 567.5 Output Total 210 / 210 Balance 2307.5 / 2307.5 100 / 100 567.5 / 567.5 Weight 94.4 kg Intake: IV 1317.5 / 1317.5 100 / 100 567.5 / 567.5 NS Inj 1,000 ML @ 60 mls/hr IV. 200 / 200 CONT .[id number] ROBBIE Rx#:[id number] LR 1000 mL Inj 1,000 ML @ 30 500 / 500 mls/hr IV.SIG .Q24H ROBBIE Rx#: [id number] Zosyn 3.375 GM Premix 50 ML @ 100 / 100 100 / 100 50 / 50 100 mls/hr IV.SIG Q6H ROBBIE Rx#: [id number] Vancomycin Inj 1,750 MG In NS 517.5 / 517.5 517.5 / 517.5 Inj 500 ML @ 257.5 mls/hr IV. SIG Q12H ROBBIE Rx#:[id number] Anesthesia Amount 1200 / 1200 Output: Urine 200 / 200 Estimated Blood Loss Other: # Voids 1 Date of Last Bowel Movement 07/18/18 07/18/18 21:13 Blood - Peripheral Aerobic Blood Culture - Preliminary No growth in 4 days 07/18/18 21:13 Blood - Peripheral Anaerobic Blood Culture - Preliminary No growth in 4 days 07/18/18 21:18 Blood - Peripheral Aerobic Blood Culture - Preliminary No growth in 4 days 07/18/18 21:18 Blood - Peripheral Anaerobic Blood Culture - Preliminary No growth in 4 days 07/21/18 08:41 Tissue - Hand Gram Stain - Final 07/21/18 08:41 Tissue - Hand Wound Culture - Preliminary No growth in 24 hours 07/21/18 08:41 Tissue - Hand Fungal Smear - Final No fungal elements seen 07/21/18 08:41 Tissue - Hand Fungal Culture - Pending 07/21/18 08:41 Tissue - Hand Acid Fast Bacilli Smear - Pending 07/21/18 08:41 Tissue - Hand Mycobacterial Culture - Pending Lab - Hematology Results 07/21/18 05:30 WBC 12.5 H RBC 2.98 L Hgb 8.0 L Hct 24.1 L MCV 81.0 MCH 26.8 L MCHC 33.1 RDW 16.0 Plt Count 378 MPV 6.4 L Neut % (Auto) 77.7 H Lymph % (Auto) 11.7 [place] % (Auto) 9.7 H Eos % (Auto) 0.6 Baso % (Auto) 0.3 Neut # (Auto) 9.7 H Lymph # (Auto) 1.5 [place] # (Auto) 1.2 H Eos # (Auto) 0.1 Baso # (Auto) 0.0 WBC Differential . Differential Comment Auto diff final Lab - Chemistry Results 07/20/18 07/20/18 07/20/18 12:09 16:43 21:08 Sodium Potassium Chloride Carbon Dioxide Anion Gap BUN Creatinine Estimated GFR POC Glucose 182 H 186 H 140 H Random Glucose Calcium Phosphorus Albumin 07/21/18 07/21/18 07/21/18 03:01 05:30 07:16 Sodium 138 Potassium 3.7 Chloride 100 Carbon Dioxide 27.3 Anion Gap 11 BUN 29 H Creatinine 0.82 Estimated GFR Greater than 89 POC Glucose 106 85 Random Glucose 75 Calcium 8.8 Phosphorus 3.5 Albumin 2.3 L 07/21/18 07/21/18 07/21/18 10:32 11:41 16:00 Sodium Potassium Chloride Carbon Dioxide Anion Gap BUN Creatinine Estimated GFR POC Glucose 91 92 138 H Random Glucose Calcium Phosphorus Albumin 07/21/18 07/22/18 07/22/18 19:40 03:02 07:36 Sodium Potassium Chloride Carbon Dioxide Anion Gap BUN Creatinine Estimated GFR POC Glucose 193 H 160 H 151 H Random Glucose Calcium Phosphorus Albumin Imaging: ITS Impressions Lumbar Spine X-Ray 07/18/18 19:56 CONCLUSION: 1. No compression deformities seen. 2. Multilevel degenerative changes in the posterior elements of the lower lumbar spine, grade 1 anterolisthesis at L4-5, and moderately severe right upper lumbar scoliosis. Hand X-Ray 07/18/18 20:57 CONCLUSION: Soft tissues are and mild periosteal reaction the proximal phalanx of the fourth digit. Physical Exam: PHYSICAL EXAMINATION: GENERAL: No acute distress. HEENT: Extraocular movements grossly intact. Pupils reactive to light. No icterus. Oropharynx moist mucosa without lesions. NECK: Supple without adenopathy. LUNGS: Clear breath sounds. HEART: Regular S1, S2, without murmurs, rubs or gallops. ABDOMEN: Bowel sounds present, flat, soft, nontender. EXTREMITIES: Left hand is in a surgical dressing. Post debridement. No visible erythema at the forearm. SKIN: No diffuse rash. NEUROLOGIC: No gross focal finding. PSYCHIATRIC: The patient is calm and cooperative. Assessment and Plan - Plan IMPRESSION: 1. Cellulitis of the left forefinger and left hand. 2. Tenosynovitis of the left hand. Post debridement. Culture pending. RECOMMENDATIONS: 1. Continue vancomycin. 2. Continue piperacillin/tazobactam. 3. Monitor culture. 4. Monitor temperature.
--- NOTE | 2018-07-22 12:46 | P.PN ---
Subjective Interval history: Follow up: hand cellulitis, Flexor tenosynovitis/OM Patient c/o constipation patient also asking for pain medication to be Q4H not Q6H patient reports that he takes the oxycodone Q4H at home Patient also reports cough productive of clear phlegm Physical Exam Vital signs: Vital Signs 07/21/18 13:01 07/21/18 15:33 07/21/18 20:00 Temperature 97.5 F L 97.7 F 98.9 F Pulse Rate 70 85 90 Respiratory Rate 16 16 18 Blood Pressure 110/65 115/58 L 107/56 L Pulse Oximetry 95 91 L 92 L 07/22/18 00:00 07/22/18 04:00 07/22/18 08:00 Temperature 101.2 F H 98.8 F 98.0 F Pulse Rate 92 H 78 88 Respiratory Rate 18 18 17 Blood Pressure 130/60 134/78 144/65 H Pulse Oximetry 92 L 92 L 94 L Intake & Output 07/21/18 07/22/18 07/22/18 18:59 06:59 18:59 Intake Total 2517.5 / 2517.5 100 / 100 567.5 / 567.5 Output Total 210 / 210 Balance 2307.5 / 2307.5 100 / 100 567.5 / 567.5 Weight 94.4 kg Intake: IV 1317.5 / 1317.5 100 / 100 567.5 / 567.5 NS Inj 1,000 ML @ 60 mls/hr IV. 200 / 200 CONT .[id number] ROBBIE Rx#:[id number] LR 1000 mL Inj 1,000 ML @ 30 500 / 500 mls/hr IV.SIG .Q24H ROBBIE Rx#: [id number] Zosyn 3.375 GM Premix 50 ML @ 100 / 100 100 / 100 50 / 50 100 mls/hr IV.SIG Q6H ROBBIE Rx#: [id number] Vancomycin Inj 1,750 MG In NS 517.5 / 517.5 517.5 / 517.5 Inj 500 ML @ 257.5 mls/hr IV. SIG Q12H ROBBIE Rx#:[id number] Anesthesia Amount 1200 / 1200 Output: Urine 200 / 200 Estimated Blood Loss 10 / 10 Other: # Voids 1 Date of Last Bowel Movement 07/18/18 Narrative: GENERAL: Patient sitting up in bed. Appears comfortable. SKIN: Warm and dry. HEAD: Normocephalic. EYES: No scleral icterus. No injection or drainage. NECK: Supple, trachea midline. No JVD. CARDIOVASCULAR: Regular rate and rhythm RESPIRATORY: Breath sounds equal bilaterally. No accessory muscle use. GASTROINTESTINAL: Abdomen soft, non-tender, nondistended. MUSCULOSKELETAL: No cyanosis, or edema. Left hand dressed post-op dressing clean dry and intact. Right foot dressed with dressing clean dry and intact BACK: Nontender without obvious deformity. No CVA tenderness. Results - Labs CBC & Chem 7: 07/21/18 05:30 07/21/18 05:30 Laboratory Results - last 24 hr 07/21/18 07/21/18 07/22/18 16:00 19:40 03:02 POC Glucose 138 H 193 H 160 H 07/22/18 07/22/18 07:36 11:51 POC Glucose 151 H 192 H Microbiology 07/18/18 21:13 Blood - Peripheral Aerobic Blood Culture - Preliminary No growth in 4 days 07/18/18 21:13 Blood - Peripheral Anaerobic Blood Culture - Preliminary No growth in 4 days 07/18/18 21:18 Blood - Peripheral Aerobic Blood Culture - Preliminary No growth in 4 days 07/18/18 21:18 Blood - Peripheral Anaerobic Blood Culture - Preliminary No growth in 4 days 07/21/18 08:41 Tissue - Hand Gram Stain - Final 07/21/18 08:41 Tissue - Hand Wound Culture - Preliminary No growth in 24 hours 07/21/18 08:41 Tissue - Hand Fungal Smear - Final No fungal elements seen Assessment and Plan - Plan //Hand cellulitis/? Flexor tenosynovitis/OM Hand x-ray significant for periosteal reaction of the proximal phalanx of the left fourth digit Vancomycin/Zosyn Blood cultures pending Hand surgery consulted, appreciate recommendations = Follow-up hand surgery recommendations. Will adjust pain meds. = 07/20. Discussed with hand surgery. Will plan for surgery tomorrow. Appreciate assistance. = 07/21. Postop day 0. Follow-up left hand cultures. Appreciate podiatry assistance. Continue antibiotics. Follow pathology. = 07/22. Post-op day 1. Left palm flexor tendon no fungal elements seen, gram stain few WBCs No organism seen, wound culture and stain no growth 24 hours, acid fast bacilli smear pending //Right foot osteomyelitis Patient says he follows with podiatry and infectious disease as outpatient. Will consult infectious disease due to new finding of osteomyelitis and left hand without obvious broken skin. Will continue antibiotics. = ID following. Appreciate assistance. //Atrial fibrillation Status post ablation Holding home Eliquis - resume once cleared by hand surgery Continue home medications //Diabetes mellitus Levemir 20 units BID Sliding-scale insulin Monitor blood glucose //Hypertension/hyperlipidemia Continue home medications //Back pain Lumbar spine x-ray negative for bony abnormality Baclofen //Cough productive of clear phlegm CXR ordered Sputum culture ordered //Constipation Lactulose once FEN Electrolytes: Monitor and replete as needed Discharge Planning: Home pending clearance by hand surgery, ID. Discussed the case with supervising physician Dr. Leung
[2018-07-22] MEDS ORDERED: Pharmacy Ordered Lab Info OTHER ONE (13:45)
--- NOTE | 2018-07-22 13:52 | XR ---
EXAM DATE: 07/22/2018 1:45 PM EDT AGE/SEX: 58 years / Male INDICATIONS: Cough CLINICAL DATA: This is the patient's initial encounter. Patient reports that signs and symptoms have been present for 3 days and indicates a pain score of 0/10. MEDICAL/SURGICAL HISTORY: . a-fib None. COMPARISON: [facility], CHEST SINGLE AP, 06/19/2017. . FINDINGS: Minimal parenchymal changes right base. Left lung clear. Underated with minimal prominence the cardia c silhouette. No pneumothorax. No pleural effusion. CONCLUSION: Under aerated with minimal parenchymal changes right base Electronically signed by: Lex Solis MD 07/22/2018 1:51 PM EDT
--- NOTE | 2018-07-22 17:18 | P.DIET ---
Nutritional Evaluation Type of nutrition evaluation: initial Screening comments: Pt request to speak w/the Dietitian Subjective Subjective Comments: Pt request for Ricardo. Pt reports that his right foot has been healing by taking Ricardo. Pt has his own supply of Ricardo packets in a plastic bag and says he would like to receive Ricardo here so he does not have to use his own personal supply. Objective - Diagnosis Osteomyelitis - Objective [place] body weight: 100 kg % IBW: 91 Body Weight Used for Calculations: Actual (90.7 kg(200-lb)) Energy Needs - Lower Range (kCal/kg): 22 Energy Needs - Upper Range (kCal/kg): 27 Lower Limit kCal/kg (kCals): 1,995 Upper Limit kCal/kg (kCals): 2,449 Lower Limit Protein Factor (Grams per Kg): 1.1 Upper Limit Protein Factor (Grams per Kg): 1.4 Lower Protein Needs (Protein): 100 Upper Protein Needs (Protein): 127 Fluid Factor (ml/kg): 27 Estimated Fluid Needs (ml): 2,449 Dietitian Reviewed in Medical Record: Current diet, Curent medications, Intake & Output, Labs, Medical history, Wound/DTI Diet Order: 1800ADA Oral Diet Intake Amount: Good 75-90% Objective Comments: PMH: HTN, hyperlipidemia, GERD, DM, AFib s/p ablation, Osteomyelitis POC Glucose 160, 151, 192 Assessment Assessment: Pt is at nutritional risk r/t diagnosis and recent reported unintentional wt loss. Rec diet as Heart Healthy . Send Ricardo 1-pkt bid to aid in wound healing. Send Glucerna Shakes TID(= 220 kcal and 10g Protein per serving). Labs reviewed. Dietitian will follow. Recommendations: 1. Rec diet as Heart Healthy 2 Send Ricardo 1-pkt bid 3. Send Glucerna Shakes TID 4. Dietitian will follow Dietitian to Monitor: Lab values, Glucose level, Supplement acceptance, Intake & Output, Weight change, PO Intake, Wound/skin status, Medical course
[2018-07-23] MEDS: Vancomycin Inj 1,750 MG in Sodium Chlor 0.9% Inj 500 ML IV.SIG SCH ×2 (01:33→14:41)
[2018-07-23] MEDS: Insulin NovoLOG Aspart Correctional Sugar Inj SQ SCH ×5 (02:53→22:20)
[2018-07-23 05:04] LABS: Baso % (Auto) 0.4 % (0.0-2.0); Eos # (Auto) 0.1 th/mm3 (0.0-0.4); Eos % (Auto) 0.5 % (0.0-4.0); Hematocrit 24.5 % (39.0-51.0); Lymph # (Auto) 1.2 th/mm3 (1.0-4.8); Lymph % (Auto) 10.8 % (9.0-44.0); Mean Corpuscular HGB Conc 32.9 % (32.0-36.0); Mean Corpuscular Hemoglobin 26.6 pg (27.0-34.0); Mean Corpuscular Volume 80.9 fL (80.0-100.0); Mean Platelet Volume 6.4 fL (7.0-11.0); Mono % (Auto) 9.2 % (0.0-8.0); Neut # (Auto) 9.1 th/mm3 (1.8-7.7); Neut % (Auto) 79.1 % (16.0-70.0); Platelet Count 369 th/mm3 (150-450); Red Blood Count 3.03 mil/mm3 (4.50-5.90); Red Cell Distribution Width 16.1 % (11.6-17.2); White Blood Count 11.4 th/mm3 (4.0-11.0)
[2018-07-23] MEDS: Piperacil/Tazo 3.375 GM Premix 50 ML IV.SIG SCH ×4 (05:10→22:26)
[2018-07-23] MEDS: Baclofen 10 MG Tablet PO SCH ×3 (05:10→22:13)
[2018-07-23 05:34] LABS: Anion Gap 10 meq/L (5-15); Blood Urea Nitrogen 13 mg/dL (7-18); Calcium 8.2 mg/dL (8.5-10.1); Carbon Dioxide 26.5 meq/L (21.0-32.0); Chloride 99 meq/L (98-107); Glomerular Filtration Rate Greater Than 89 mL/min (>89); Glucose,Random 144 mg/dL (74-106); Potassium 3.9 meq/L (3.5-5.1); Sodium 135 meq/L (136-145)
[2018-07-23] MEDS: Insulin Detemir Inj 1,000 UNIT/10 ML Vial SQ SCH ×2 (09:52→22:19)
[2018-07-23] MEDS: Ramipril 2.5 MG Capsule PO SCH (09:53)
[2018-07-23] MEDS: Furosemide 20 MG Tablet PO SCH ×2 (09:53→22:13)
[2018-07-23] MEDS: dilTIAZem CD 240 MG Capsule PO SCH (09:53)
[2018-07-23] MEDS: Senna/Docusate Sodium 8.6/50 MG Tablet PO SCH ×2 (09:53→22:14)
--- NOTE | 2018-07-23 11:59 | P.CONWOU ---
History of Present Illness Service: 07/23/18 Consult date: 07/22/18 Requesting Physician: Eloisa Fitzgerald Reason for Consult: Ulcer of right foot and left buttock Primary Care Provider: Reilly Jaime MD [facility] [place] - History History Provided By: Patient - Medical History Medical History: Medical History (Last Updated 07/18/18 @ 23:20 by Eloisa Fitzgerald MD) Amputated toe GERD (gastroesophageal reflux disease) Hyperlipidemia Back pain Hypertension Osteomyelitis Afib Diabetes - Surgical History Surgical History: Surgical History (Last Updated 07/18/18 @ 23:20 by Eloisa Fitzgerald MD) H/O foot surgery - Family History Family History: Family History (Last Updated 07/18/18 @ 23:20 by Eloisa Fitzgerald MD) Other Coronary artery disease - Tobacco History Second Hand Smoke Exposure: No Smoking Status: Never smoker - Alcohol History How Often Do You Have a Drink Containing Alcohol: Never - Substance Use History Substance History: No History of Abuse - Travel History Recent Travel in the [place] Within the Last 8 Weeks: No Recent Travel Out of the Country Within the Last 8 Weeks: No - Immunization History Tetanus Immunization: Unsure Hx Influenza Vaccine This Season: No Medications and Allergies Active Medications: Active Medications Acetaminophen (Tylenol) 650 mg PO Q4H PRN PRN Reason: Temp > 100.4 Last Admin: 07/22/18 00:27 Dose: 650 mg Al Hydroxide/Mg Hydroxide (Milk Of Magnpilar Liq) 30 ml PO Q12H PRN PRN Reason: Mild Constipation Baclofen (Lioresal) 10 mg PO Q8HR [facility] Last Admin: 07/23/18 05:10 Dose: 10 mg Bisacodyl (Dulcolax Supp) 10 mg RECTAL DAILY PRN PRN Reason: SEVERE CONSITIPATION Chlorhexidine Gluconate (Chlorhexidine 2% Cloth) 3 pack 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 [facility] Stop: 07/24/18 07:18 Dextrose (D50w Vial) 50 ml IV.PUSH UNSCH PRN PRN Reason: PER HYPOGLYCEMIA PROTOCOL Diltiazem HCl (Cardizem Cd 24hr) 240 mg PO DAILY [facility] Last Admin: 07/23/18 09:53 Dose: 240 mg Furosemide (Lasix) 20 mg PO BID [facility] Last Admin: 07/23/18 09:53 Dose: 20 mg Glucagon (Glucagon Inj) 1 mg OTHER PRN PRN PRN Reason: for Hypoglycemia Protocol Piperacillin/Tazobactam/Dextrose (Zosyn 3.375 Gm Premix) 50 mls @ 100 mls/hr IV.SIG Q6H [facility] Last Infusion: 07/23/18 10:57 Dose: Infused Vancomycin HCl 1,750 mg/ (Sodium Chloride) 517.5 mls @ 257.5 mls/hr IV.SIG Q12H [facility] Last Infusion: 07/23/18 05:44 Dose: Infused Sodium Chloride (Ns Inj) 500 mls @ 30 mls/hr IV.SIG .Q10H [facility] Stop: 07/24/18 07:18 Lactated Ringer's (Lr 1000 Ml Inj) 1,000 mls @ 30 mls/hr IV.SIG .Q24H [facility] Stop: 07/24/18 07:18 Last Admin: 07/23/18 07:13 Dose: Not Given Insulin Aspart (Novolog Insulin Correctional Sugar Inj) 0 unit SQ ACHS AND 3AM [facility]BIE; Protocol Last Admin: 07/23/18 09:52 Dose: 1 unit Insulin Detemir (Levemir Inj) 20 unit SQ BID [facility] Last Admin: 07/23/18 09:52 Dose: 20 unit Lactulose (Lactulose Liq) 30 ml PO DAILY PRN PRN Reason: SEVERE CONSITIPATION Menthol/Methyl Salicylate (Juan Miranda Oint) 1 applicatio TOPICAL UNSCH PRN PRN Reason: PAIN SCALE 1 TO 10 Metoprolol Tartrate (Lopressor) 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 PO 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 [facility] Stop: 07/24/18 07:18 Ondansetron HCl (Zofran Inj) 4 mg IV.PUSH Q6H PRN PRN Reason: NAUSEA OR VOMITING Oxycodone HCl (Roxicodone) 30 mg PO Q4H PRN PRN Reason: PAIN SCALE 6 TO 10 Last Admin: 07/23/18 09:54 Dose: 30 mg Pantoprazole Sodium (Protonix) 40 mg PO DAILY [facility] Last Admin: 07/23/18 09:53 Dose: 40 mg Pharmacy Profile Note (Vancomycin Consult Pharmacy) 1 each OTHER UNSCH PRN PRN Reason: Pharmacy to dose Povidone Iodine (Betadine 5% Antisepsis Kit) 1 applicatio EACH [employer] 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 [facility] Stop: 07/24/18 07:18 Ramipril (Altace) 2.5 mg PO DAILY [facility] Last Admin: 07/23/18 09:53 Dose: 2.5 mg Senna/Docusate Sodium (Aliyah-Colace) 1 tab PO BID [facility] Last Admin: 07/23/18 09:53 Dose: 1 tab Sennosides (Senokot) 17.2 mg PO Q12H PRN PRN Reason: Moderate Constipation Allergies Allergy/AdvReac Type Severity Reaction Status Date / Time *MDRO Multi-Drug Resistant AdvReac Unknown MRSA Uncoded 06/16/17 16:34 Organism Home Medications Medication Instructions Recorded Confirmed Type apixaban [Eliquis] 5 mg PO BID 06/09/18 07/18/18 History diltiazem HCl 240 mg PO DAILY 06/09/18 07/22/18 History furosemide 20 mg PO BID 06/09/18 07/18/18 History insulin glargine [Lantus Solostar 50 unit SUB-Q BID 06/09/18 07/18/18 History U-100 Insulin] pantoprazole [Protonix] 40 mg PO DAILY 06/09/18 07/18/18 History ramipril 2.5 mg PO DAILY 06/09/18 07/18/18 History oxycodone 30 mg PO Q4H PRN 07/22/18 07/22/18 History Physical Exam Vital signs: Vital Signs 07/22/18 12:00 07/22/18 16:00 07/22/18 20:36 Temperature 98.0 F 97.9 F 98.1 F Pulse Rate 82 71 77 Respiratory Rate 17 17 18 Blood Pressure 134/62 114/58 L 110/59 L Pulse Oximetry 100 100 94 L 07/22/18 22:37 07/23/18 00:31 07/23/18 08:00 Temperature 98.7 F 98.5 F Pulse Rate 90 101 H Respiratory Rate 18 18 16 Blood Pressure 138/64 133/63 Pulse Oximetry 98 98 Intake & Output 07/22/18 07/23/18 07/23/18 18:59 06:59 18:59 Intake Total 2435.0 / 2435.0 1397.5 / 1397.5 50 / 50 Balance 2435.0 / 2435.0 1397.5 / 1397.5 50 / 50 Weight 95 kg Intake: IV 1135.0 / 1135.0 617.5 / 617.5 50 / 50 Zosyn 3.375 GM Premix 50 ML @ 100 / 100 100 / 100 50 / 50 100 mls/hr IV.SIG Q6H [facility] Rx#: [id number] Vancomycin Inj 1,750 MG In NS 1035.0 / 1035.0 517.5 / 517.5 Inj 500 ML @ 257.5 mls/hr IV. SIG Q12H [facility] Rx#:[id number] Oral 1300 / 1300 780 / 780 Other: # Voids 3 3 Date of Last Bowel Movement 07/18/18 # Bowel Movements 1 1 Wound/Pressure Injury - Patient Status Premedicated for Pain Prior to Dressing Change: No - Wound Right Foot Wound Assessment: Ongoing Wound Type: Abrasion Is This a Chronic Wound: No Requested from Provider a Wound Care Consult: No Wound Bed Appearance: [place] Surrounding Tissue Appearance: [place] Surrounding Tissue Temperature: Warm Drainage Amount: None Drainage Odor: No Odor Dressing Status: Open to Air Wound Packing Type: Gauze Pads Primary Dressing: Gauze Roll/Wrap Tape Type: Transparent Right Anterior Foot Wound Assessment: Ongoing Wound Type: Abrasion Is This a Chronic Wound: Yes Requested from Provider a Wound Care Consult: Yes Length: 3 Width: 2 Wound Bed Appearance: Yellow Surrounding Tissue Appearance: [place] Surrounding Tissue Temperature: Warm Drainage Description: Serous Drainage Amount: Minimal Drainage Odor: No Odor Dressing Status: Open to Air Wound Packing Type: Gauze Pads Primary Dressing: Gauze Roll/Wrap Tape Type: Transparent Left Posterior Gluteal Cleft Wound Assessment: Ongoing Wound Type: Abrasion Is This a Chronic Wound: Yes Requested from Provider a Wound Care Consult: No Wound Bed Appearance: Red Surrounding Tissue Temperature: Warm Drainage Amount: None Drainage Odor: No Odor Dressing Status: Open to Air Left Hand Wound Assessment: Ongoing Dressing Status: Dry & Intact Primary Dressing: Gauze Roll/Wrap Cover Dressing: danielle wrap Incision - Patient Status Premedicated for Pain Prior to Dressing Change: No - Incision Left Hand Incision Assessment: Ongoing Incision Type: Incision Incision Description: Sutures Drainage Amount: None Incision Dressing Status: Dry & Intact Incision Packing Type: Gauze Packing Strips Cover Dressing: Other Other Cover Dressing: danielle-like wrap, elevated Assessment and Plan - Assessment (1) Decubitus ulcer of left buttock, stage 3 Code(s): L89.323 - Pressure ulcer of left buttock, stage 3 Status: Chronic Plan: 07/23/18: Wound dimensions today are: 0.9cmx0.5cmx <0.3cm. Wound was cleaned with normal saline and orders for daily dressing with santyl (2) Ulcer of right foot Code(s): L97.519 - Non-pressure chronic ulcer of other part of right foot with unspecified severity Status: Acute Plan: 07/23/18: Wound dimensions today are: 1cmx2.4cmx0.3cm. Wound was debrided initially with sterile forceps and scissors to remove callused tissue from the top of the wound bed. The wound bed was then sharply debrided to subcutaneous tissue using a sterile 7mm dermal currette until a clean bleeding base was achieved. The wound was then cleaned with normal saline and gentamicin solution provided by the patient and then dressed with puracol plus and gauze and lucas. Care instructions discussed with the patient as his dressing does not need to be changed for the next 7 days. (3) Charcot foot due to diabetes mellitus Code(s): E11.610 - Type 2 diabetes mellitus with diabetic neuropathic arthropathy Status: Acute
--- NOTE | 2018-07-23 12:58 | P.PN ---
Subjective Interval history: Follow up: hand cellulitis, Flexor tenosynovitis/OM constipation resolved no longer c/o cough post-op pain tolerable with current pain regiment Physical Exam Vital signs: Vital Signs 07/22/18 16:00 07/22/18 20:36 07/22/18 22:37 Temperature 97.9 F 98.1 F Pulse Rate 71 77 Respiratory Rate 17 18 18 Blood Pressure 114/58 L 110/59 L Pulse Oximetry 100 94 L 07/23/18 00:31 07/23/18 08:00 07/23/18 12:00 Temperature 98.7 F 98.5 F 98.3 F Pulse Rate 90 101 H 82 Respiratory Rate 18 16 17 Blood Pressure 138/64 133/63 123/72 Pulse Oximetry 98 98 97 Intake & Output 07/22/18 07/23/18 07/23/18 18:59 06:59 18:59 Intake Total 2435.0 / 2435.0 1397.5 / 1397.5 50 / 50 Balance 2435.0 / 2435.0 1397.5 / 1397.5 50 / 50 Weight 95 kg Intake: IV 1135.0 / 1135.0 617.5 / 617.5 50 / 50 Zosyn 3.375 GM Premix 50 ML @ 100 / 100 100 / 100 50 / 50 100 mls/hr IV.SIG Q6H [facility] Rx#: [id number] Vancomycin Inj 1,750 MG In NS 1035.0 / 1035.0 517.5 / 517.5 Inj 500 ML @ 257.5 mls/hr IV. SIG Q12H [facility] Rx#:[id number] Oral 1300 / 1300 780 / 780 Other: # Voids 3 3 Date of Last Bowel Movement 07/18/18 # Bowel Movements 1 1 Narrative: GENERAL: Patient sitting up in bed. Appears comfortable. SKIN: Warm and dry. HEAD: Normocephalic. EYES: No scleral icterus. No injection or drainage. NECK: Supple, trachea midline. No JVD. CARDIOVASCULAR: Regular rate and rhythm RESPIRATORY: Breath sounds equal bilaterally. No accessory muscle use. GASTROINTESTINAL: Abdomen soft, non-tender, nondistended. MUSCULOSKELETAL: No cyanosis, or edema. Left hand dressed post-op dressing clean dry and intact. Right foot dressed with dressing clean dry and intact BACK: Nontender without obvious deformity. No CVA tenderness. Results - Labs CBC & Chem 7: 07/23/18 04:24 07/23/18 04:24 Laboratory Results - last 24 hr 07/22/18 07/22/18 07/22/18 13:39 16:34 20:50 WBC RBC Hgb Hct MCV MCH MCHC RDW Plt Count MPV Neut % (Auto) Lymph % (Auto) [place] % (Auto) Eos % (Auto) Baso % (Auto) Neut # (Auto) Lymph # (Auto) [place] # (Auto) Eos # (Auto) Baso # (Auto) WBC Differential Differential Comment Sodium Potassium Chloride Carbon Dioxide Anion Gap BUN Creatinine Estimated GFR POC Glucose 206 H 148 H Random Glucose Calcium Vancomycin Trough 15.4 H 07/23/18 07/23/18 07/23/18 04:24 04:24 07:41 WBC 11.4 H RBC 3.03 L Hgb 8.0 L Hct 24.5 L MCV 80.9 MCH 26.6 L MCHC 32.9 RDW 16.1 Plt Count 369 MPV 6.4 L Neut % (Auto) 79.1 H Lymph % (Auto) 10.8 [place] % (Auto) 9.2 H Eos % (Auto) 0.5 Baso % (Auto) 0.4 Neut # (Auto) 9.1 H Lymph # (Auto) 1.2 [place] # (Auto) 1.0 H Eos # (Auto) 0.1 Baso # (Auto) 0.0 WBC Differential . Differential Comment Auto diff final Sodium 135 L Potassium 3.9 Chloride 99 Carbon Dioxide 26.5 Anion Gap 10 BUN 13 Creatinine 0.60 Estimated GFR Greater than 89 POC Glucose 182 H Random Glucose 144 H Calcium 8.2 L Vancomycin Trough 07/23/18 11:49 WBC RBC Hgb Hct MCV MCH MCHC RDW Plt Count MPV Neut % (Auto) Lymph % (Auto) [place] % (Auto) Eos % (Auto) Baso % (Auto) Neut # (Auto) Lymph # (Auto) [place] # (Auto) Eos # (Auto) Baso # (Auto) WBC Differential Differential Comment Sodium Potassium Chloride Carbon Dioxide Anion Gap BUN Creatinine Estimated GFR POC Glucose 223 H Random Glucose Calcium Vancomycin Trough Microbiology 07/18/18 21:13 Blood - Peripheral Aerobic Blood Culture - Final No growth in 5 days 07/18/18 21:13 Blood - Peripheral Anaerobic Blood Culture - Final No growth in 5 days 07/18/18 21:18 Blood - Peripheral Aerobic Blood Culture - Final No growth in 5 days 07/18/18 21:18 Blood - Peripheral Anaerobic Blood Culture - Final No growth in 5 days 07/21/18 08:41 Tissue - Hand Gram Stain - Final 07/21/18 08:41 Tissue - Hand Wound Culture - Preliminary No growth in 48 hours 07/22/18 13:38 Sputum - Expectorated Sputum Gram Stain - Final 07/21/18 08:41 Tissue - Hand Acid Fast Bacilli Smear - Final No acid fast bacilli seen 07/21/18 08:41 Tissue - Hand Fungal Smear - Final No fungal elements seen - Imaging Impressions Chest X-Ray 07/22/18 12:33 CONCLUSION: Under aerated with minimal parenchymal changes right base Assessment and Plan - Plan //Hand cellulitis/? Flexor tenosynovitis/OM Hand x-ray significant for periosteal reaction of the proximal phalanx of the left fourth digit Vancomycin/Zosyn Blood cultures pending Hand surgery consulted, appreciate recommendations = Follow-up hand surgery recommendations. Will adjust pain meds. = 07/20. Discussed with hand surgery. Will plan for surgery tomorrow. Appreciate assistance. = 07/21. Postop day 0. Follow-up left hand cultures. Appreciate podiatry assistance. Continue antibiotics. Follow pathology. = 07/22. Post-op day 1. Left palm flexor tendon no fungal elements seen, gram stain few WBCs No organism seen, wound culture and stain no growth 24 hours, acid fast bacilli smear pending = 07/23. Post-op day 2. wound culture and stain no growth 48 hours, no acid fast bacilli seen //Right foot osteomyelitis Patient says he follows with podiatry and infectious disease as outpatient. Will consult infectious disease due to new finding of osteomyelitis and left hand without obvious broken skin. Will continue antibiotics. = ID following. Appreciate assistance. //Atrial fibrillation Status post ablation Holding home Eliquis - resume once cleared by hand surgery Continue home medications //Diabetes mellitus Levemir 20 units BID Sliding-scale insulin Monitor blood glucose //Hypertension/hyperlipidemia Continue home medications //Back pain Lumbar spine x-ray negative for bony abnormality Baclofen //Cough productive of clear phlegm 07/23 cough improved IS ordered CXR reviewed: Under aerated with minimal parenchymal changes right base Sputum culture pending //Constipation- resolved continue bowel regiment and PRN laxatives FEN Electrolytes: Monitor and replete as needed Discharge Planning: Home pending clearance by hand surgery, ID. Discussed the case with supervising physician Dr. Leung
--- NOTE | 2018-07-23 13:41 | P.PNID ---
Subjective Remarks: Patient complains of pain in his left hand. Post debridement. The wound culture has no growth so far. The wound is packed and has some serous drainage. Afebrile. This is a 58-year-old white male who presented to the emergency department, yesterday with complaints of back pain. The patient notes that he twisted his back while getting out of his motor vehicle and he also noted pain in his left hand. He had been experiencing pain and discomfort in the left ankle for a couple of weeks and he was supposed to see a hand doctor to have an assessment for surgery on the left hand, but he had some preop evaluation to be done and there was delay in getting that performed. He states that his left hand became painful and swollen, and there was redness extending up his wrist and arm, up to the elbow. He was admitted and started on IV antibiotics. An x-ray of the hand was performed and it showed moderate soft tissue swelling about the fourth digit adjacent to the proximal phalanx and linear densities along the medial and lateral cortex of the fourth proximal phalanx suggesting periosteal reaction. Past Medical History: PAST MEDICAL HISTORY: Gastroesophageal reflux disease, toe amputations, diabetes mellitus, hyperlipidemia, hypertension, atrial fibrillation, osteomyelitis involving the right foot. Allergies/Adverse Reactions: Allergies *MDRO Multi-Drug Resistant Organism Adverse Reaction (Unknown, Uncoded 06/16/17 16:34) MRSA MRSA (foot wound) - 02/12/15, 11/12/16, 03/29/17; (toe) - 03/2016 Objective Vital Signs 07/22/18 16:00 07/22/18 20:36 07/22/18 22:37 Temperature 97.9 F 98.1 F Pulse Rate 71 77 Respiratory Rate 18 18 Blood Pressure 114/58 L 110/59 L Pulse Oximetry 100 94 L 07/23/18 00:31 07/23/18 08:00 07/23/18 12:00 Temperature 98.7 F 98.5 F 98.3 F Pulse Rate 90 101 H 82 Respiratory Rate 18 16 17 Blood Pressure 138/64 133/63 123/72 Pulse Oximetry 98 98 97 Intake & Output 07/22/18 07/23/18 07/23/18 18:59 06:59 18:59 Intake Total 2435.0 / 2435.0 1397.5 / 1397.5 50 / 50 Balance 2435.0 / 2435.0 1397.5 / 1397.5 50 / 50 Weight 95 kg Intake: IV 1135.0 / 1135.0 617.5 / 617.5 50 / 50 Zosyn 3.375 GM Premix 50 ML @ 100 / 100 100 / 100 50 / 50 100 mls/hr IV.SIG Q6H [facility] Rx#: [id number] Vancomycin Inj 1,750 MG In NS 1035.0 / 1035.0 517.5 / 517.5 Inj 500 ML @ 257.5 mls/hr IV. SIG Q12H [facility] Rx#:[id number] Oral 1300 / 1300 780 / 780 Other: # Voids 3 3 Date of Last Bowel Movement 07/18/18 # Bowel Movements 1 1 07/18/18 21:13 Blood - Peripheral Aerobic Blood Culture - Final No growth in 5 days 07/18/18 21:13 Blood - Peripheral Anaerobic Blood Culture - Final No growth in 5 days 07/18/18 21:18 Blood - Peripheral Aerobic Blood Culture - Final No growth in 5 days 07/18/18 21:18 Blood - Peripheral Anaerobic Blood Culture - Final No growth in 5 days 07/21/18 08:41 Tissue - Hand Gram Stain - Final 07/21/18 08:41 Tissue - Hand Wound Culture - Preliminary No growth in 48 hours 07/22/18 13:38 Sputum - Expectorated Sputum Gram Stain - Final 07/22/18 13:38 Sputum - Expectorated Sputum Sputum Culture - Pending 07/21/18 08:41 Tissue - Hand Acid Fast Bacilli Smear - Final No acid fast bacilli seen 07/21/18 08:41 Tissue - Hand Mycobacterial Culture - Pending 07/21/18 08:41 Tissue - Hand Fungal Smear - Final No fungal elements seen 07/21/18 08:41 Tissue - Hand Fungal Culture - Pending Lab - Hematology Results 07/23/18 04:24 WBC 11.4 H RBC 3.03 L Hgb 8.0 L Hct 24.5 L MCV 80.9 MCH 26.6 L MCHC 32.9 RDW 16.1 Plt Count 369 MPV 6.4 L Neut % (Auto) 79.1 H Lymph % (Auto) 10.8 [place] % (Auto) 9.2 H Eos % (Auto) 0.5 Baso % (Auto) 0.4 Neut # (Auto) 9.1 H Lymph # (Auto) 1.2 [place] # (Auto) 1.0 H Eos # (Auto) 0.1 Baso # (Auto) 0.0 WBC Differential . Differential Comment Auto diff final Lab - Chemistry Results 07/21/18 07/21/18 07/22/18 16:00 19:40 03:02 Sodium Potassium Chloride Carbon Dioxide Anion Gap BUN Creatinine Estimated GFR POC Glucose 138 H 193 H 160 H Random Glucose Calcium 07/22/18 07/22/18 07/22/18 07:36 11:51 16:34 Sodium Potassium Chloride Carbon Dioxide Anion Gap BUN Creatinine Estimated GFR POC Glucose 151 H 192 H 206 H Random Glucose Calcium 07/22/18 07/23/18 07/23/18 20:50 04:24 07:41 Sodium 135 L Potassium 3.9 Chloride 99 Carbon Dioxide 26.5 Anion Gap 10 BUN 13 Creatinine 0.60 Estimated GFR Greater than 89 POC Glucose 148 H 182 H Random Glucose 144 H Calcium 8.2 L 07/23/18 11:49 Sodium Potassium Chloride Carbon Dioxide Anion Gap BUN Creatinine Estimated GFR POC Glucose 223 H Random Glucose Calcium Imaging: ITS Impressions Lumbar Spine X-Ray 07/18/18 19:56 CONCLUSION: 1. No compression deformities seen. 2. Multilevel degenerative changes in the posterior elements of the lower lumbar spine, grade 1 anterolisthesis at L4-5, and moderately severe right upper lumbar scoliosis. Hand X-Ray 07/18/18 20:57 CONCLUSION: Soft tissues are and mild periosteal reaction the proximal phalanx of the fourth digit. Chest X-Ray 07/22/18 12:33 CONCLUSION: Under aerated with minimal parenchymal changes right base Physical Exam: PHYSICAL EXAMINATION: GENERAL: No acute distress. HEENT: Extraocular movements grossly intact. Pupils reactive to light. No icterus. Oropharynx moist mucosa without lesions. NECK: Supple without adenopathy. LUNGS: Clear breath sounds. HEART: Regular S1, S2, without murmurs, rubs or gallops. ABDOMEN: Bowel sounds present, flat, soft, nontender. EXTREMITIES: Left hand is in a surgical dressing. Post debridement. Erythema of the left third finger has markedly improved. Serous drainage visible on the wounds. Packing in place. SKIN: No diffuse rash. NEUROLOGIC: No gross focal finding. PSYCHIATRIC: Calm and cooperative. Assessment and Plan - Plan IMPRESSION: 1. Cellulitis of the left forefinger and left hand. Improved 2. Tenosynovitis of the left hand. Post debridement. Culture pending. No growth so far RECOMMENDATIONS: 1. Continue vancomycin. 2. Continue piperacillin/tazobactam. 3. Monitor culture. 4. Monitor temperature. 5. He is complaining of severe back pain. May need further evaluation.
[2018-07-23] MEDS: Collagenase Oint 30 GM Tube TOPICAL SCH (14:42)
[2018-07-23] MEDS ORDERED: Morphine Sulfate Inj 2 MG/ML Vial IV.PUSH ONE (16:15)
--- NOTE | 2018-07-23 16:57 | XR ---
EXAM DATE: 07/23/2018 4:54 PM EDT AGE/SEX: 58 years / Male INDICATIONS: Lower back pain, unknown injury. CLINICAL DATA: This is the patient's subsequent encounter. Patient reports that signs and symptoms h ave been present for > 1 year and indicates a pain score of 10/10. MEDICAL/SURGICAL HISTORY: None. None. COMPARISON: [facility] [place], LUMBAR SPINE [facility], 07/18/2018. . FINDINGS: Grade 1 anterolisthesis of L4 on L5 noted. Severe disc space narrowing at L2-3 and L5-S1 with endplat e sclerosis and osteophytosis. Schmorl node formation superior endplate of L2 and inferior endplate o f L1. Moderate facet hypertrophy L4-5 and L5-S1. CONCLUSION: Moderate to severe degenerative changes are again seen. Electronically signed by: Vaughn Mahan MD 07/23/2018 4:56 PM EDT
--- NOTE | 2018-07-23 18:04 | P.PN ---
Subjective Interval history: complains of mild pain and stiffness left hand complains of back pain had x-rays of the back today no fever Physical Exam Vital signs: Vital Signs 07/22/18 20:36 07/22/18 22:37 07/23/18 00:31 Temperature 98.1 F 98.7 F Pulse Rate 77 90 Respiratory Rate 18 18 18 Blood Pressure 110/59 L 138/64 Pulse Oximetry 94 L 98 07/23/18 08:00 07/23/18 12:00 07/23/18 16:00 Temperature 98.5 F 98.3 F 98.1 F Pulse Rate 101 H 82 80 Respiratory Rate 16 17 17 Blood Pressure 133/63 123/72 128/79 Pulse Oximetry 98 97 99 Intake & Output 07/22/18 07/23/18 07/23/18 18:59 06:59 18:59 Intake Total 2435.0 / 2435.0 1397.5 / 1397.5 617.5 / 617.5 Balance 2435.0 / 2435.0 1397.5 / 1397.5 617.5 / 617.5 Weight 95 kg Intake: IV 1135.0 / 1135.0 617.5 / 617.5 617.5 / 617.5 Zosyn 3.375 GM Premix 50 ML @ 100 / 100 100 / 100 100 / 100 100 mls/hr IV.SIG Q6H ROBBIE Rx#: [id number] Vancomycin Inj 1,750 MG In NS 1035.0 / 1035.0 517.5 / 517.5 517.5 / 517.5 Inj 500 ML @ 257.5 mls/hr IV. SIG Q12H ROBBIE Rx#:[id number] Oral 1300 / 1300 780 / 780 Other: # Voids 3 3 Date of Last Bowel Movement 07/18/18 # Bowel Movements 1 1 Narrative: exam of the left hand: intact dressing. packing in place drainage noted stiffness of the ring finger noted range of motion of the ring finger is limited and painful intact distal circulation cultures: negative to date Results - Labs CBC & Chem 7: 07/23/18 04:24 07/23/18 04:24 Laboratory Results - last 24 hr 07/22/18 07/23/18 07/23/18 20:50 04:24 04:24 WBC 11.4 H RBC 3.03 L Hgb 8.0 L Hct 24.5 L MCV 80.9 MCH 26.6 L MCHC 32.9 RDW 16.1 Plt Count 369 MPV 6.4 L Neut % (Auto) 79.1 H Lymph % (Auto) 10.8 [place] % (Auto) 9.2 H Eos % (Auto) 0.5 Baso % (Auto) 0.4 Neut # (Auto) 9.1 H Lymph # (Auto) 1.2 [place] # (Auto) 1.0 H Eos # (Auto) 0.1 Baso # (Auto) 0.0 WBC Differential . Differential Comment Auto diff final Sodium 135 L Potassium 3.9 Chloride 99 Carbon Dioxide 26.5 Anion Gap 10 BUN 13 Creatinine 0.60 Estimated GFR Greater than 89 POC Glucose 148 H Random Glucose 144 H Calcium 8.2 L 07/23/18 07/23/18 07:41 11:49 WBC RBC Hgb Hct MCV MCH MCHC RDW Plt Count MPV Neut % (Auto) Lymph % (Auto) [place] % (Auto) Eos % (Auto) Baso % (Auto) Neut # (Auto) Lymph # (Auto) [place] # (Auto) Eos # (Auto) Baso # (Auto) WBC Differential Differential Comment Sodium Potassium Chloride Carbon Dioxide Anion Gap BUN Creatinine Estimated GFR POC Glucose 182 H 223 H Random Glucose Calcium Microbiology 07/22/18 13:38 Sputum - Expectorated Sputum Gram Stain - Final 07/22/18 13:38 Sputum - Expectorated Sputum Sputum Culture - Preliminary Heavy growth normal respiratory karen at 24 hours 07/18/18 21:13 Blood - Peripheral Aerobic Blood Culture - Final No growth in 5 days 07/18/18 21:13 Blood - Peripheral Anaerobic Blood Culture - Final No growth in 5 days 07/18/18 21:18 Blood - Peripheral Aerobic Blood Culture - Final No growth in 5 days 07/18/18 21:18 Blood - Peripheral Anaerobic Blood Culture - Final No growth in 5 days 07/21/18 08:41 Tissue - Hand Gram Stain - Final 07/21/18 08:41 Tissue - Hand Wound Culture - Preliminary No growth in 48 hours 07/21/18 08:41 Tissue - Hand Acid Fast Bacilli Smear - Final No acid fast bacilli seen - Imaging Impressions Lumbar Spine X-Ray 07/23/18 00:00 CONCLUSION: Moderate to severe degenerative changes are again seen. Assessment and Plan - Assessment (1) Suppurative tenosynovitis of flexor tendon of left hand Code(s): M65.142 - Other infective (teno)synovitis, left hand Status: Acute - Plan packing pulled out couple of centimeters dry dressing applied range of motion exercises continue antibiotics based on ID recommendations hand surgery will follow.
[2018-07-24] MEDS: Vancomycin Inj 1,750 MG in Sodium Chlor 0.9% Inj 500 ML IV.SIG SCH ×2 (01:43→14:41)
[2018-07-24] MEDS: Piperacil/Tazo 3.375 GM Premix 50 ML IV.SIG SCH ×4 (03:41→20:55)
[2018-07-24] MEDS: Insulin NovoLOG Aspart Correctional Sugar Inj SQ SCH ×6 (03:41→20:54)
[2018-07-24] MEDS: Baclofen 10 MG Tablet PO SCH ×3 (05:15→23:03)
[2018-07-24] MEDS: Furosemide 20 MG Tablet PO SCH ×2 (09:22→20:53)
[2018-07-24] MEDS: Ramipril 2.5 MG Capsule PO SCH (09:22)
[2018-07-24] MEDS: dilTIAZem CD 240 MG Capsule PO SCH (09:22)
[2018-07-24] MEDS: Insulin Detemir Inj 1,000 UNIT/10 ML Vial SQ SCH ×2 (09:22→20:54)
[2018-07-24] MEDS: Senna/Docusate Sodium 8.6/50 MG Tablet PO SCH ×2 (09:22→20:53)
[2018-07-24] MEDS: Collagenase Oint 30 GM Tube TOPICAL SCH (09:25)
[2018-07-24] MEDS ORDERED: Pharmacy Ordered Lab Info OTHER ONE (13:45)
--- NOTE | 2018-07-24 14:17 | P.PN ---
Subjective Interval history: In bed. Complaining of back pain lumbar area, says he is not able to stand and has worsening back pain. The pain is not radiating. The pain is worse with movement and also with palpation. No fever or chills Pain in his hand improved significantly. No constipation. NO n/v. Physical Exam Vital signs: Vital Signs 07/23/18 16:00 07/23/18 20:00 07/24/18 00:00 Temperature 98.1 F 99.0 F 99.2 F Pulse Rate 80 78 83 Respiratory Rate 17 19 20 Blood Pressure 128/79 132/73 127/63 Pulse Oximetry 99 99 95 07/24/18 08:00 07/24/18 12:00 Temperature 98.4 F 98.5 F Pulse Rate 78 77 Respiratory Rate 16 16 Blood Pressure 132/65 114/57 L Pulse Oximetry 95 97 Intake & Output 07/23/18 07/24/18 07/24/18 18:59 06:59 18:59 Intake Total 617.5 / 617.5 1730 / 1730 50 / 50 Output Total 1200 / 1200 2100 / 2100 250 / 250 Balance -582.5 / -582.5 -370 / -370 -200 / -200 Weight 96.2 kg Intake: IV 617.5 / 617.5 350 / 350 50 / 50 Zosyn 3.375 GM Premix 50 ML @ 100 / 100 100 / 100 50 / 50 100 mls/hr IV.SIG Q6H ROBBIE Rx#: [id number] Vancomycin Inj 1,750 MG In NS 517.5 / 517.5 250 / 250 Inj 500 ML @ 257.5 mls/hr IV. SIG Q12H ROBBIE Rx#:[id number] Oral 1380 / 1380 Output: Urine 1200 / 1200 2100 / 2100 250 / 250 Other: # Voids 2 Date of Last Bowel Movement 07/23/18 # Bowel Movements 0 Narrative: GENERAL: Pleasant 58 yo male. No acute distress. SKIN: Warm and dry. HEAD: Normocephalic. EYES: No scleral icterus. No injection or drainage. NECK: Supple, trachea midline. No JVD or lymphadenopathy. CARDIOVASCULAR: Regular rate and rhythm without murmurs, gallops, or rubs. RESPIRATORY: Breath sounds equal bilaterally. No accessory muscle use. GASTROINTESTINAL: Abdomen soft, non-tender, nondistended. MUSCULOSKELETAL: No cyanosis, or edema. Left hand in a surgical dressing. Patient is post debridement. Dressing is c/d/i. Right foot dressed with dressing c/d/i. BACK: Tenderness to palpation lumbar area. No obvious deformity. No CVA tenderness. Results - Labs CBC & Chem 7: 07/23/18 04:24 07/23/18 04:24 Laboratory Results - last 24 hr 07/23/18 07/23/18 07/24/18 17:30 22:16 03:22 POC Glucose 182 H 212 H 177 H 07/24/18 07/24/18 08:19 12:50 POC Glucose 164 H 184 H Microbiology 07/22/18 13:38 Sputum - Expectorated Sputum Gram Stain - Final 07/22/18 13:38 Sputum - Expectorated Sputum Sputum Culture - Final Heavy growth normal respiratory karen 07/21/18 08:41 Tissue - Hand Gram Stain - Final 07/21/18 08:41 Tissue - Hand Wound Culture - Preliminary 07/18/18 21:13 Blood - Peripheral Aerobic Blood Culture - Final No growth in 5 days 07/18/18 21:13 Blood - Peripheral Anaerobic Blood Culture - Final No growth in 5 days 07/18/18 21:18 Blood - Peripheral Aerobic Blood Culture - Final No growth in 5 days 07/18/18 21:18 Blood - Peripheral Anaerobic Blood Culture - Final No growth in 5 days - Imaging Impressions Lumbar Spine X-Ray 07/23/18 00:00 CONCLUSION: Moderate to severe degenerative changes are again seen. Assessment and Plan - Plan //Hand cellulitis/? Flexor tenosynovitis/OM Hand x-ray significant for periosteal reaction of the proximal phalanx of the left fourth digit Continue Vancomycin/Zosyn. Blood cultures ntd Hand surgery consulted, appreciate recommendations = Follow-up hand surgery recommendations. Will adjust pain meds. = 07/20. Discussed with hand surgery. Will plan for surgery tomorrow. Appreciate assistance. = 07/21. Postop day 0. Follow-up left hand cultures. Appreciate podiatry assistance. Continue antibiotics. Follow pathology. = 07/22. Post-op day 1. Left palm flexor tendon no fungal elements seen, gram stain few WBCs No organism seen, wound culture and stain no growth 24 hours, acid fast bacilli smear pending = 07/23. Post-op day 2. wound culture and stain no growth 48 hours, no acid fast bacilli seen = 07/24 with severe back pain lumbar area. X ray lumbar area reviewed no fracture. Ordered MRI lumbar spine w and w/o contrast. R/o abscess. //Right foot osteomyelitis Patient says he follows with podiatry and infectious disease as outpatient. Consult infectious disease due to new finding of osteomyelitis and left hand without obvious broken skin. Will continue antibiotics per ID recommendations. = ID following. Appreciate assistance. //Atrial fibrillation Status post ablation Holding home Eliquis - resume once cleared by hand surgery Continue home medications //Diabetes mellitus Levemir 20 units BID Sliding-scale insulin Monitor blood glucose //Hypertension/hyperlipidemia Continue home medications //Back pain Lumbar spine x-ray negative for bony abnormality Baclofen //Cough productive of clear phlegm 07/23 cough improved IS ordered CXR reviewed: Under aerated with minimal parenchymal changes right base Sputum culture pending //Constipation- resolved continue bowel regiment and PRN laxatives FEN Electrolytes: Monitor and replete as needed Discharge Planning: Home pending clearance by hand surgery, ID. 07/24 With back pain X ray lumbar no fracture, plan for MRI lumbar spine w and w/ o contrast for further eval. Concern for abscess. Discussed with the patient, family at bedside, nurse.
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
[2018-07-25] MEDS: Vancomycin Inj 1,750 MG in Sodium Chlor 0.9% Inj 500 ML IV.SIG SCH ×2 (01:17→14:37)
[2018-07-25 01:23] LABS: Amphetamine Screen,Urine Neg (Neg); Barbiturate Screen,Urine Neg (Neg); Cannabinoid Screen,Urine Neg (Neg); Cocaine Screen,Urine Neg (Neg)
[2018-07-25 01:25] LABS: Opiate Screen,Urine Pos (Neg)
[2018-07-25] MEDS: Piperacil/Tazo 3.375 GM Premix 50 ML IV.SIG SCH ×4 (03:53→21:32)
[2018-07-25] MEDS: Insulin NovoLOG Aspart Correctional Sugar Inj SQ SCH ×5 (03:54→21:43)
[2018-07-25] MEDS: Baclofen 10 MG Tablet PO SCH ×3 (05:27→21:28)
[2018-07-25 05:57] LABS: Baso # (Auto) 0.1 th/mm3 (0.0-0.2); Baso % (Auto) 0.5 % (0.0-2.0); Eos # (Auto) 0.1 th/mm3 (0.0-0.4); Eos % (Auto) 0.7 % (0.0-4.0); Hematocrit 24.6 % (39.0-51.0); Hemoglobin 8.2 gm/dL (13.0-17.0); Lymph # (Auto) 1.4 th/mm3 (1.0-4.8); Lymph % (Auto) 10.7 % (9.0-44.0); Mean Corpuscular HGB Conc 33.3 % (32.0-36.0); Mean Corpuscular Hemoglobin 26.8 pg (27.0-34.0); Mean Corpuscular Volume 80.4 fL (80.0-100.0); Mean Platelet Volume 6.5 fL (7.0-11.0); Mono # (Auto) 1.2 th/mm3 (0.0-0.9); Neut # (Auto) 10.3 th/mm3 (1.8-7.7); Neut % (Auto) 79.1 % (16.0-70.0); Platelet Count 402 th/mm3 (150-450); Red Blood Count 3.06 mil/mm3 (4.50-5.90)
[2018-07-25 06:17] LABS: Anion Gap 10 meq/L (5-15); Blood Urea Nitrogen 14 mg/dL (7-18); Calcium 8.8 mg/dL (8.5-10.1); Carbon Dioxide 27.2 meq/L (21.0-32.0); Chloride 97 meq/L (98-107); Glomerular Filtration Rate Greater Than 89 mL/min (>89); Glucose,Random 120 mg/dL (74-106); Potassium 3.9 meq/L (3.5-5.1); Sodium 134 meq/L (136-145)
[2018-07-25] MEDS: Furosemide 20 MG Tablet PO SCH ×2 (08:17→21:29)
[2018-07-25] MEDS: Senna/Docusate Sodium 8.6/50 MG Tablet PO SCH ×2 (08:17→21:28)
[2018-07-25] MEDS: dilTIAZem CD 240 MG Capsule PO SCH (08:17)
[2018-07-25] MEDS: Ramipril 2.5 MG Capsule PO SCH (08:17)
[2018-07-25] MEDS: Insulin Detemir Inj 1,000 UNIT/10 ML Vial SQ SCH ×2 (08:19→21:43)
[2018-07-25] MEDS: Collagenase Oint 30 GM Tube TOPICAL SCH (08:19)
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
--- NOTE | 2018-07-25 16:21 | P.PNIM ---
Subjective Interval history: Patient still complains of back pain. He says over the last 3 days the pain has been worsening. MRI shows evidence of discitis at L4/L5. This may be infectious. Situation discussed with ID. Recommendation for biopsy. Physical Exam Vital signs: Vital Signs 07/24/18 17:40 07/24/18 20:00 07/25/18 00:00 Temperature 99.8 F H 98.4 F 97.9 F Pulse Rate 99 H 84 82 Respiratory Rate 17 19 19 Blood Pressure 153/70 H 136/72 117/59 L Pulse Oximetry 99 97 07/25/18 08:00 07/25/18 12:00 Temperature 98.3 F 97.8 F Pulse Rate 78 74 Respiratory Rate 16 16 Blood Pressure 119/66 111/56 L Pulse Oximetry 99 99 Intake & Output 07/24/18 07/25/18 07/25/18 18:59 06:59 18:59 Intake Total 2235.0 / 2235.0 2117.5 / 2117.5 100 / 100 Output Total 1250 / 1250 900 / 900 Balance 985.0 / 985.0 1217.5 / 1217.5 100 / 100 Weight 96.2 kg Intake: IV 835.0 / 835.0 617.5 / 617.5 100 / 100 Zosyn 3.375 GM Premix 50 ML @ 50 / 50 100 / 100 100 / 100 100 mls/hr IV.SIG Q6H ROBBIE Rx#: [id number] Vancomycin Inj 1,750 MG In NS 785.0 / 785.0 517.5 / 517.5 Inj 500 ML @ 257.5 mls/hr IV. SIG Q12H ROBBIE Rx#:[id number] Oral 1400 / 1400 1500 / 1500 Output: Urine 1250 / 1250 900 / 900 Other: Date of Last Bowel Movement 07/23/18 07/23/18 # Bowel Movements 0 Narrative: GENERAL: NAD, A&Ox3 HEAD: Normocephalic. NECK: Supple, trachea midline. No lymphadenopathy. EYES: No scleral icterus. No injection or drainage. CARDIOVASCULAR: Regular rate and rhythm without murmurs, gallops, or rubs. RESPIRATORY: Breath sounds equal bilaterally. No accessory muscle use. GASTROINTESTINAL: Abdomen soft, non-tender, nondistended. MUSCULOSKELETAL: No cyanosis, or edema. Left hand is bandaged. SKIN: Warm and dry. NEURO: No focal neurological deficits. Results - Labs CBC & Chem 7: 07/25/18 05:00 07/25/18 05:00 Laboratory Results - last 24 hr 07/24/18 07/24/18 07/25/18 16:47 19:29 00:56 WBC RBC Hgb Hct MCV MCH MCHC RDW Plt Count MPV Neut % (Auto) Lymph % (Auto) [place] % (Auto) Eos % (Auto) Baso % (Auto) Neut # (Auto) Lymph # (Auto) [place] # (Auto) Eos # (Auto) Baso # (Auto) WBC Differential Differential Comment Sodium Potassium Chloride Carbon Dioxide Anion Gap BUN Creatinine Estimated GFR POC Glucose 188 H 151 H Random Glucose Calcium Urine Opiates Screen Pos H Ur Barbiturates Screen Neg Ur Amphetamines Screen Neg U Benzodiazepines Scrn Neg Urine Cocaine Screen Neg U Cannabinoids Screen Neg 07/25/18 07/25/18 07/25/18 03:49 05:00 05:00 WBC 13.0 H RBC 3.06 L Hgb 8.2 L Hct 24.6 L MCV 80.4 MCH 26.8 L MCHC 33.3 RDW 16.0 Plt Count 402 MPV 6.5 L Neut % (Auto) 79.1 H Lymph % (Auto) 10.7 [place] % (Auto) 9.0 H Eos % (Auto) 0.7 Baso % (Auto) 0.5 Neut # (Auto) 10.3 H Lymph # (Auto) 1.4 [place] # (Auto) 1.2 H Eos # (Auto) 0.1 Baso # (Auto) 0.1 WBC Differential . Differential Comment Auto diff final Sodium 134 L Potassium 3.9 Chloride 97 L Carbon Dioxide 27.2 Anion Gap 10 BUN 14 Creatinine 0.62 Estimated GFR Greater than 89 POC Glucose 181 H Random Glucose 120 H Calcium 8.8 Urine Opiates Screen Ur Barbiturates Screen Ur Amphetamines Screen U Benzodiazepines Scrn Urine Cocaine Screen U Cannabinoids Screen 07/25/18 07/25/18 07:31 11:48 WBC RBC Hgb Hct MCV MCH MCHC RDW Plt Count MPV Neut % (Auto) Lymph % (Auto) [place] % (Auto) Eos % (Auto) Baso % (Auto) Neut # (Auto) Lymph # (Auto) [place] # (Auto) Eos # (Auto) Baso # (Auto) WBC Differential Differential Comment Sodium Potassium Chloride Carbon Dioxide Anion Gap BUN Creatinine Estimated GFR POC Glucose 137 H 139 H Random Glucose Calcium Urine Opiates Screen Ur Barbiturates Screen Ur Amphetamines Screen U Benzodiazepines Scrn Urine Cocaine Screen U Cannabinoids Screen Microbiology 07/21/18 08:41 Tissue - Hand Gram Stain - Final 07/21/18 08:41 Tissue - Hand Wound Culture - Preliminary Acid Fast Organism - Imaging Impressions Lumbar Spine MRI 07/24/18 00:00 CONCLUSION: 1. Very prominent edema seen throughout the L4 and L5 vertebral bodies and at the disc level. This could be from exuberant degenerative change versus discitis. If this is from discitis, then involvement in the vertebral bodies/ osteomyelitis would need to be suspected. There is severe stenosis at this level. 2. Moderate stenosis at the L2-L3 level caused by disc bulge and facet hypertrophy. 3. Mild disc bulge at the L1-L2 and L5-S1 levels. Assessment and Plan - Assessment (1) Osteomyelitis Code(s): M86.9 - Osteomyelitis, unspecified Status: Acute (2) Abscess of hand, left Code(s): L02.512 - Cutaneous abscess of left hand Status: Acute - Plan 58-year-old male admitted secondary to left hand abscess and severe back pain L4/L5 discitis Severe back pain Severe spinal stenosis Potential etiology of infection Neurosurgery consulted ID recommends biopsy Hand cellulitis Flexor tenosynovitis Osteomyelitis Continue vancomycin and Zosyn And Surgeon following Follow cultures Right foot osteomyelitis ID following Atrial fibrillation Patient is status post ablation for this Eliquis on hold secondary to procedures and potential future procedures Diabetes mellitus type 2 Follow blood sugars Insulin sliding scale Diabetic diet Hyperlipidemia Continue present treatment Follow as an outpatient Hypertension Continue baseline treatment Follow blood pressures Adjust treatments as needed DVT Prophylaxis Lovenox (1) Osteomyelitis Qualifiers: Osteomyelitis type: unspecified type Osteomyelitis location: hand Laterality : left Qualified Code(s): M86.9 - Osteomyelitis, unspecified
--- NOTE | 2018-07-25 17:17 | P.PN ---
Subjective Interval history: mild pain over the hand region denies any fever still complains of back pain had mri of the back Physical Exam Vital signs: Vital Signs 07/24/18 17:40 07/24/18 20:00 07/25/18 00:00 Temperature 99.8 F H 98.4 F 97.9 F Pulse Rate 99 H 84 82 Respiratory Rate 17 19 19 Blood Pressure 153/70 H 136/72 117/59 L Pulse Oximetry 99 97 07/25/18 08:00 07/25/18 12:00 07/25/18 16:00 Temperature 98.3 F 97.8 F 97.8 F Pulse Rate 78 74 68 Respiratory Rate 16 16 18 Blood Pressure 119/66 111/56 L 119/84 Pulse Oximetry 99 99 99 Intake & Output 07/24/18 07/25/18 07/25/18 18:59 06:59 18:59 Intake Total 2235.0 / 2235.0 2117.5 / 2117.5 617.5 / 617.5 Output Total 1250 / 1250 900 / 900 Balance 985.0 / 985.0 1217.5 / 1217.5 617.5 / 617.5 Weight 96.2 kg Intake: IV 835.0 / 835.0 617.5 / 617.5 617.5 / 617.5 Zosyn 3.375 GM Premix 50 ML @ 50 / 50 100 / 100 100 / 100 100 mls/hr IV.SIG Q6H ROBBIE Rx#: [id number] Vancomycin Inj 1,750 MG In NS 785.0 / 785.0 517.5 / 517.5 517.5 / 517.5 Inj 500 ML @ 257.5 mls/hr IV. SIG Q12H ROBBIE Rx#:[id number] Oral 1400 / 1400 1500 / 1500 Output: Urine 1250 / 1250 900 / 900 Other: Date of Last Bowel Movement 07/23/18 07/23/18 # Bowel Movements 0 Narrative: examination of the hand: intact dressing minimal drainage surrounding skin maceration noted flexion deformity of the ring finger noted with stiffness able to make a better fist cultures: flexor tendon region positive for AFB. mri L4-5 discitis Results - Labs CBC & Chem 7: 07/25/18 05:00 07/25/18 05:00 Laboratory Results - last 24 hr 07/24/18 07/24/18 07/25/18 16:47 19:29 00:56 WBC RBC Hgb Hct MCV MCH MCHC RDW Plt Count MPV Neut % (Auto) Lymph % (Auto) [place] % (Auto) Eos % (Auto) Baso % (Auto) Neut # (Auto) Lymph # (Auto) [place] # (Auto) Eos # (Auto) Baso # (Auto) WBC Differential Differential Comment Sodium Potassium Chloride Carbon Dioxide Anion Gap BUN Creatinine Estimated GFR POC Glucose 188 H 151 H Random Glucose Calcium Urine Opiates Screen Pos H Ur Barbiturates Screen Neg Ur Amphetamines Screen Neg U Benzodiazepines Scrn Neg Urine Cocaine Screen Neg U Cannabinoids Screen Neg 07/25/18 07/25/18 07/25/18 03:49 05:00 05:00 WBC 13.0 H RBC 3.06 L Hgb 8.2 L Hct 24.6 L MCV 80.4 MCH 26.8 L MCHC 33.3 RDW 16.0 Plt Count 402 MPV 6.5 L Neut % (Auto) 79.1 H Lymph % (Auto) 10.7 [place] % (Auto) 9.0 H Eos % (Auto) 0.7 Baso % (Auto) 0.5 Neut # (Auto) 10.3 H Lymph # (Auto) 1.4 [place] # (Auto) 1.2 H Eos # (Auto) 0.1 Baso # (Auto) 0.1 WBC Differential . Differential Comment Auto diff final Sodium 134 L Potassium 3.9 Chloride 97 L Carbon Dioxide 27.2 Anion Gap 10 BUN 14 Creatinine 0.62 Estimated GFR Greater than 89 POC Glucose 181 H Random Glucose 120 H Calcium 8.8 Urine Opiates Screen Ur Barbiturates Screen Ur Amphetamines Screen U Benzodiazepines Scrn Urine Cocaine Screen U Cannabinoids Screen 07/25/18 07/25/18 07/25/18 07:31 11:48 16:50 WBC RBC Hgb Hct MCV MCH MCHC RDW Plt Count MPV Neut % (Auto) Lymph % (Auto) [place] % (Auto) Eos % (Auto) Baso % (Auto) Neut # (Auto) Lymph # (Auto) [place] # (Auto) Eos # (Auto) Baso # (Auto) WBC Differential Differential Comment Sodium Potassium Chloride Carbon Dioxide Anion Gap BUN Creatinine Estimated GFR POC Glucose 137 H 139 H 211 H Random Glucose Calcium Urine Opiates Screen Ur Barbiturates Screen Ur Amphetamines Screen U Benzodiazepines Scrn Urine Cocaine Screen U Cannabinoids Screen Microbiology 07/21/18 08:41 Tissue - Hand Gram Stain - Final 07/21/18 08:41 Tissue - Hand Wound Culture - Preliminary Acid Fast Organism - Imaging Impressions Lumbar Spine MRI 07/24/18 00:00 CONCLUSION: 1. Very prominent edema seen throughout the L4 and L5 vertebral bodies and at the disc level. This could be from exuberant degenerative change versus discitis. If this is from discitis, then involvement in the vertebral bodies/ osteomyelitis would need to be suspected. There is severe stenosis at this level. 2. Moderate stenosis at the L2-L3 level caused by disc bulge and facet hypertrophy. 3. Mild disc bulge at the L1-L2 and L5-S1 levels. Assessment and Plan - Assessment (1) Suppurative tenosynovitis of flexor tendon of left hand Code(s): M65.142 - Other infective (teno)synovitis, left hand Status: Acute - Plan dry dressing applied range of motion exercises appreciate ID recommendations, follow up AFB continue antibiotics based on ID recommendations hand surgery will follow.
[2018-07-25] MEDS ORDERED: Enoxaparin Inj 40 MG/0.4 ML Syringe SQ ONE (17:30)
[2018-07-26] MEDS: Vancomycin Inj 1,750 MG in Sodium Chlor 0.9% Inj 500 ML IV.SIG SCH ×2 (03:36→13:27)
[2018-07-26] MEDS: Piperacil/Tazo 3.375 GM Premix 50 ML IV.SIG SCH ×4 (03:36→21:06)
[2018-07-26] MEDS: Insulin NovoLOG Aspart Correctional Sugar Inj SQ SCH ×6 (03:44→21:06)
[2018-07-26 05:43] LABS: Baso # (Auto) 0.1 th/mm3 (0.0-0.2); Baso % (Auto) 0.8 % (0.0-2.0); Eos # (Auto) 0.1 th/mm3 (0.0-0.4); Hematocrit 24.4 % (39.0-51.0); Hemoglobin 8.1 gm/dL (13.0-17.0); Lymph # (Auto) 1.4 th/mm3 (1.0-4.8); Lymph % (Auto) 10.4 % (9.0-44.0); Mean Corpuscular Hemoglobin 26.7 pg (27.0-34.0); Mean Corpuscular Volume 80.8 fL (80.0-100.0); Mean Platelet Volume 7.4 fL (7.0-11.0); Mono % (Auto) 7.6 % (0.0-8.0); Neut # (Auto) 10.7 th/mm3 (1.8-7.7); Neut % (Auto) 80.2 % (16.0-70.0); Platelet Count 355 th/mm3 (150-450); Red Blood Count 3.02 mil/mm3 (4.50-5.90); Red Cell Distribution Width 15.8 % (11.6-17.2); White Blood Count 13.3 th/mm3 (4.0-11.0)
[2018-07-26 06:01] LABS: Alanine Aminotransferase 13 U/L (12-78); Albumin 2.2 g/dL (3.4-5.0); Anion Gap 11 meq/L (5-15); Aspartate Aminotransferase 14 U/L (15-37); Blood Urea Nitrogen 17 mg/dL (7-18); Calcium 8.6 mg/dL (8.5-10.1); Carbon Dioxide 25.4 meq/L (21.0-32.0); Chloride 97 meq/L (98-107); Glomerular Filtration Rate Greater Than 89 mL/min (>89); Glucose,Random 72 mg/dL (74-106); Sodium 133 meq/L (136-145)
[2018-07-26 06:02] LABS: Alkaline Phosphatase 119 U/L (45-117); Total Protein 7.7 g/dL (6.4-8.2)
[2018-07-26] MEDS: Baclofen 10 MG Tablet PO SCH ×3 (06:07→21:05)
[2018-07-26 08:05] LABS: Platelet Estimate Normal (Normal); Platelet Morphology Normal (Normal)
[2018-07-26] MEDS: Ramipril 2.5 MG Capsule PO SCH (08:28)
[2018-07-26] MEDS: dilTIAZem CD 240 MG Capsule PO SCH (08:28)
[2018-07-26] MEDS: Furosemide 20 MG Tablet PO SCH ×2 (08:28→21:05)
[2018-07-26] MEDS: Senna/Docusate Sodium 8.6/50 MG Tablet PO SCH ×2 (08:28→21:05)
[2018-07-26] MEDS: Enoxaparin Inj 40 MG/0.4 ML Syringe SQ SCH (08:29)
[2018-07-26] MEDS: Collagenase Oint 30 GM Tube TOPICAL SCH (08:34)
--- NOTE | 2018-07-26 08:49 | P.CONNS ---
History of Present Illness Service: neurosurgery Consult date: 07/26/18 Requesting Physician: Brandon Ignacio Reason for Consult: Low back pain, rule out discitis Primary Care Provider: Reilly Jaime MD Chief Complaint: low back pain History of Present Illness: This is a 58-year-old male with past medical history significant for hypertension, hyperlipidemia, GERD, diabetes mellitus and atrial fibrillation status post ablation presents to the emergency department for evaluation of back pain. The patient reports he was getting out of the car when he twisted his back and has had severe back pain since that time. He has a left swollen hand that is worse on the fourth digit and the dorsal surface of the hand with surrounding erythema that extends up the arm. The patient reports he has previously been seen by hand surgery, Dr. Slaughter, he wanted to do surgery on his hand but was unable to due to "an abnormal EKG." The patient is a poor historian. He reports he has been on 28 different antibiotics over the past several months. He also reports that he has been seen by infectious disease for osteomyelitis of the right foot but is not currently taking any antibiotics at this time. He denies any recent fever/chills. No chest pain or shortness of breath. No abdominal pain. No nausea/vomiting/diarrhea. he underwent debridement of Suppurative tenosynovitis of flexor tendon of left hand by Dr Coleman. MRI lumbar spine showed edema seen throughout the L4 and L5 vertebral bodies and at the disc level. This could be from exuberant degenerative change versus discitis. neurosurgery consultation was requested Review of Systems All other systems reviewed negative except as stated in HPI Constitutional: Denies anorexia, Denies body ache(s), Denies chills, Denies daytime sleepiness, Denies excessive sweating, Denies fatigue, Denies fever(s), Denies headache(s), Denies increased appetite, Denies lack of energy, Denies malaise, Denies night sweats, Denies weakness, Denies weight gain, Denies weight loss, Denies other Eyes: Denies blind spots, Denies blurry vision, Denies bulging eyes, Denies change in vision, Denies double vision, Denies discharge, Denies dry eyes, Denies floaters, Denies irritation, Denies itchy eyes, Denies loss of vision, Denies pain, Denies requires corrective lenses, Denies sensitivity to light, Denies other Ears, Nose, Mouth, and Throat: Denies abnormal hearing, Denies bleeding gums, Denies bad breath, Denies change in voice, Denies dental pain, Denies difficulty swallowing, Denies dizziness, Denies dry mouth, Denies ear discharge , Denies ear pain, Denies facial pain, Denies headache(s), Denies hearing loss, Denies hoarseness, Denies lip swelling, Denies nosebleed, Denies mouth lesions, Denies mouth pain, Denies nasal congestion, Denies nasal discharge, Denies nasal obstruction, Denies nasal trauma, Denies neck lump, Denies neck pain, Denies nose pain, Denies pain with swallowing, Denies poor balance, Denies post nasal drip, Denies ringing in the ears, Denies sinus pain, Denies sinus pressure , Denies sore throat, Denies throat swelling, Denies tongue swelling, Denies other Cardiovascular: Denies chest pain, Denies chest pain at rest, Denies chest pain with activity, Denies excessive sweating, Denies fainting, Denies fast heart rate, Denies foot swelling, Denies generalized swelling, Denies irregular heart rhythm, Denies leg pain with activity, Denies leg sores, Denies leg swelling, Denies lightheadedness, Denies radiating jaw, neck or arm pain, Denies rapid, pounding, or irregular heartbeat, Denies shortness of breath, Denies shortness of breath with activity, Denies shortness of breath when lying down, Denies shortness of breath causing sudden awakening, Denies slow heart rate, Denies other Respiratory: Denies change in phlegm color, Denies chest congestion, Denies cough, Denies coughing up blood, Denies excessive phlegm production, Denies pain on inspiration, Denies pain with cough, Denies shortness of breath, Denies shortness of breath with activity, Denies snoring, Denies stridor, Denies wheezing, Denies other Gastrointestinal: Denies abdominal pain, Denies belching, Denies black, tarry stools, Denies bloating, Denies bright, red blood in stools, Denies change in bowel habits, Denies constant urge to pass stool, Denies change in stools, Denies coffee ground vomit, Denies constipation, Denies cramping, Denies difficulty swallowing, Denies excessive passing of gas, Denies feeling full early, Denies heartburn, Denies incontinent of stools, Denies loose stools, Denies nausea, Denies pain with swallowing, Denies vomiting, Denies vomiting blood, Denies other Genitourinary: Denies blood in semen, Denies blood in urine, Denies decreased urination, Denies difficulty urinating, Denies difficulty with ejaculations, Denies erectile dysfunction, Denies genital lesions, Denies genital pain, Denies painful urination, Denies side pain, Denies frequent nighttime urination , Denies painful ejaculations, Denies penile discharge, Denies scrotal swelling , Denies testicle lump, Denies testicle pain, Denies urinary frequency, Denies urinary hesitancy, Denies urinary incontinence, Denies urinary urgency, Denies other Musculoskeletal: Denies abnormal walking, Denies back pain, Denies body aches, Denies decreased muscle mass, Denies deformity, Denies joint pain, Denies joint swelling, Denies limited joint movement, Denies loss of height, Denies muscle cramps, Denies muscle weakness, Denies neck pain, Denies numbness, Denies radiating pain into limb, Denies stiffness, Denies tingling, Denies other Skin/Breast: Denies acne, Denies bleeding lesions, Denies boil, Denies breast swelling, Denies breast skin changes, Denies breast pain, Denies breast lump, Denies change in breast shape, Denies change in hair, Denies change in skin color, Denies changing lesions, Denies dry skin, Denies excessive hair growth, Denies hair loss, Denies itching, Denies lesions, Denies nail changes, Denies new lesions, Denies nipple discharge, Denies non-healing lesions, Denies redness , Denies sensitivity to light, Denies rash, Denies skin pain, Denies skin ulcer , Denies sores, Denies stretch carter, Denies unusual bruising, Denies wounds, Denies yellowing of the skin, Denies other Psychiatric: Denies abnormal sleep pattern, Denies anxiety, Denies behavioral changes, Denies change in appetite, Denies change in sex drive, Denies confusion , Denies depression, Denies difficulty concentrating, Denies hearing things others do not hear, Denies hopelessness, Denies irritability, Denies lack of enjoyment, Denies memory loss, Denies mood swings, Denies panic attacks, Denies paranoia, Denies seeing things others do not see, Denies sensing things others do not sense, Denies tactile hallucinations, Denies thoughts of hurting/killing others, Denies thoughts of hurting/killing yourself, Denies other Endocrine: Denies cold intolerance, Denies excessive sweating, Denies flushing, Denies heat intolerance, Denies increased hunger, Denies increased thirst, Denies increased urination, Denies rapid, pounding, or irregular heartbeat, Denies other PMFSH - History History Provided By: Patient - Medical History Medical History: Medical History (Last Reviewed 07/29/18 @ 13:41 by Gerber Martini MD) Amputated toe GERD (gastroesophageal reflux disease) Hyperlipidemia Back pain Hypertension Osteomyelitis Afib Diabetes - Surgical History Surgical History: Surgical History (Last Reviewed 07/29/18 @ 13:41 by Gerber Martini MD) H/O foot surgery - Family History Family History: Family History (Last Reviewed 07/29/18 @ 13:41 by Gerber Martini MD) Other Coronary artery disease - Tobacco History Second Hand Smoke Exposure: No Smoking Status: Never smoker - Alcohol History How Often Do You Have a Drink Containing Alcohol: Never - Substance Use History Substance History: No History of Abuse - Travel History Recent Travel in the [place] Within the Last 8 Weeks: No Recent Travel Out of the Country Within the Last 8 Weeks: No - Immunization History Tetanus Immunization: Unsure Hx Influenza Vaccine This Season: No Medications and Allergies Active Medications: Active Medications Acetaminophen (Tylenol) 650 mg PO Q4H PRN PRN Reason: Temp > 100.4 Last Admin: 07/22/18 00:27 Dose: 650 mg Al Hydroxide/Mg Hydroxide (Milk Of Magnesia Liq) 30 ml PO Q12H PRN PRN Reason: Mild Constipation Baclofen (Lioresal) 10 mg PO Q8HR [facility] Last Admin: 07/26/18 06:07 Dose: 10 mg Bisacodyl (Dulcolax Supp) 10 mg RECTAL DAILY PRN PRN Reason: SEVERE CONSITIPATION Clarithromycin (Biaxin) 500 mg PO Q12H [facility] Last Admin: 07/26/18 06:07 Dose: 500 mg Collagenase (Santyl Oint) 1 applicatio TOPICAL DAILY [facility] Last Admin: 07/26/18 08:34 Dose: Not Given Dextrose (D50w Vial) 50 ml IV.PUSH UNSCH PRN PRN Reason: PER HYPOGLYCEMIA PROTOCOL Diltiazem HCl (Cardizem Cd 24hr) 240 mg PO DAILY [facility] Last Admin: 07/26/18 08:28 Dose: 240 mg Enoxaparin Sodium (Lovenox Inj) 40 mg SQ DAILY [facility] Last Admin: 07/26/18 08:29 Dose: 40 mg Furosemide (Lasix) 20 mg PO BID [facility] Last Admin: 07/26/18 08:28 Dose: 20 mg Glucagon (Glucagon Inj) 1 mg OTHER PRN PRN PRN Reason: for Hypoglycemia Protocol Vancomycin HCl 1,750 mg/ (Sodium Chloride) 517.5 mls @ 257.5 mls/hr IV.SIG Q12H [facility] Last Infusion: 07/26/18 06:10 Dose: Infused Piperacillin/Tazobactam/Dextrose (Zosyn 3.375 Gm Premix) 50 mls @ 100 mls/hr IV.SIG Q6H [facility] Last Admin: 07/26/18 08:29 Dose: 100 mls/hr Insulin Aspart (Novolog Insulin Correctional Sugar Inj) 0 unit SQ ACHS AND 3AM [facility]; Protocol Last Admin: 07/26/18 08:21 Dose: Not Given Insulin Detemir (Levemir Inj) 20 unit SQ BID [facility] Last Admin: 07/25/18 21:43 Dose: 20 unit Lactulose (Lactulose Liq) 30 ml PO DAILY PRN PRN Reason: SEVERE CONSITIPATION Menthol/Methyl Salicylate (Juan Miranda Oint) 1 applicatio TOPICAL UNSCH PRN PRN Reason: PAIN SCALE 1 TO 10 Ondansetron HCl (Zofran Inj) 4 mg IV.PUSH Q6H PRN PRN Reason: NAUSEA OR VOMITING Last Admin: 07/25/18 18:19 Dose: 4 mg Oxycodone HCl (Roxicodone) 30 mg PO Q4H PRN PRN Reason: PAIN SCALE 6 TO 10 Last Admin: 07/26/18 08:28 Dose: 30 mg Pantoprazole Sodium (Protonix) 40 mg PO DAILY [facility] Last Admin: 07/26/18 08:28 Dose: 40 mg Pharmacy Profile Note (Vancomycin Consult Pharmacy) 1 each OTHER UNSCH PRN PRN Reason: Pharmacy to dose Ramipril (Altace) 2.5 mg PO DAILY [facility] Last Admin: 07/26/18 08:28 Dose: 2.5 mg Senna/Docusate Sodium (Aliyah-Colace) 1 tab PO BID [facility] Last Admin: 07/26/18 08:28 Dose: 1 tab Sennosides (Senokot) 17.2 mg PO Q12H PRN PRN Reason: Moderate Constipation Last Admin: 07/25/18 22:16 Dose: 17.2 mg Allergies Allergy/AdvReac Type Severity Reaction Status Date / Time *MDRO Multi-Drug Resistant AdvReac Unknown MRSA Uncoded 06/16/17 16:34 Organism Home Medications Medication Instructions Recorded Confirmed Type apixaban [Eliquis] 5 mg PO BID 06/09/18 07/18/18 History diltiazem HCl 240 mg PO DAILY 06/09/18 07/22/18 History furosemide 20 mg PO BID 06/09/18 07/18/18 History insulin glargine [Lantus Solostar 50 unit SUB-Q BID 06/09/18 07/18/18 History U-100 Insulin] pantoprazole [Protonix] 40 mg PO DAILY 06/09/18 07/18/18 History ramipril 2.5 mg PO DAILY 06/09/18 07/18/18 History oxycodone 30 mg PO Q4H PRN 07/22/18 07/22/18 History Exam Vital signs: Vital Signs 07/25/18 12:00 07/25/18 16:00 07/25/18 20:00 Temperature 97.8 F 97.8 F 98.8 F Pulse Rate 74 68 76 Respiratory Rate 16 18 18 Blood Pressure 111/56 L 119/84 133/60 Pulse Oximetry 99 99 97 07/25/18 23:41 07/26/18 00:00 Temperature 98.9 F Pulse Rate 83 Respiratory Rate 18 19 Blood Pressure 114/58 L Pulse Oximetry 98 Intake & Output 07/25/18 07/26/18 07/26/18 18:59 06:59 18:59 Intake Total 617.5 / 617.5 3017.5 / 3017.5 Output Total 1100 / 1100 Balance 617.5 / 617.5 1917.5 / 1917.5 Weight 96.3 kg Intake: IV 617.5 / 617.5 617.5 / 617.5 Zosyn 3.375 GM Premix 50 ML @ 100 / 100 100 / 100 100 mls/hr IV.SIG Q6H [facility] Rx#: [id number] Vancomycin Inj 1,750 MG In NS 517.5 / 517.5 517.5 / 517.5 Inj 500 ML @ 257.5 mls/hr IV. SIG Q12H [facility] Rx#:[id number] Oral 2400 / 2400 Output: Urine 1100 / 1100 Other: # Voids 3 Date of Last Bowel Movement 07/23/18 Narrative: Gen.: Alert, awake, no acute distress Head: Normocephalic. Atraumatic. EENT: Pupils equal round and reactive to light. Nose without drainage. Airway intact. Throat without injection. Cardiovascular: Regular rate and rhythm. No murmurs, rubs or gallops. Respiratory: Lungs clear to auscultation bilaterally. No wheezes or rhonchi. Abdomen: Soft, nontender, nondistended. No peritoneal signs. Musculoskeletal: No gross deformities. No edema. Skin: Erythema and edema of the fourth digit left hand that extends up the hand into the forearm with post surgical dressing. Neuro: Speech is fluent. Cranial nerve examination: pupils to be equal, round and reactive to light. Extra-ocular movements are intact. Facial motor and sensory function are normal and symmetrical. Gross hearing appears intact. Sternocleidomastoid and trapezius muscles are symmetrical. Other cranial nerves are intact. Neck is soft and supple with a good range of motion without pain. Muscle strength is normal in all muscle groups of both upper and lower extremities. Sensory examination is intact to light touch and pin prick in both the upper and lower extremities. Deep tendon reflexes are symmetrical in both upper and lower extremities. There is a bilateral plantar flexion response. Cerebellar examination is unremarkable, without deficits. Lungs are clear Heart regular rhythm is regular rate Skin warm and dry Results - Laboratory Findings CBC and BMP: 07/29/18 06:32 07/29/18 06:32 Abnormal lab findings: Abnormal Labs 07/18/18 07/18/18 07/18/18 21:18 21:18 21:18 WBC RBC Hgb Hct MCH Plt Count MPV Neut % (Auto) [place] % (Auto) Neut # (Auto) [place] # (Auto) ESR Greater than 140 H APTT 35.0 H Sodium Chloride BUN Creatinine POC Glucose Random Glucose Calcium AST Alkaline Phosphatase C-Reactive Protein 9.00 H Total Protein Albumin Vancomycin Trough Urine Opiates Screen 07/18/18 07/18/18 07/19/18 21:18 21:18 03:18 WBC 12.9 H RBC 3.71 L Hgb 9.8 L Hct 29.9 L MCH 26.6 L Plt Count 520 H MPV 6.2 L Neut % (Auto) 76.9 H [place] % (Auto) 8.3 H Neut # (Auto) 9.9 H [place] # (Auto) 1.1 H ESR APTT Sodium 129 L Chloride 93 L BUN 35 H Creatinine POC Glucose 166 H Random Glucose 205 H Calcium AST Alkaline Phosphatase 118 H C-Reactive Protein Total Protein 8.9 H Albumin 2.7 L Vancomycin Trough Urine Opiates Screen 07/19/18 07/19/18 07/19/18 07:33 12:58 16:55 WBC RBC Hgb Hct MCH Plt Count MPV Neut % (Auto) [place] % (Auto) Neut # (Auto) [place] # (Auto) ESR APTT Sodium Chloride BUN Creatinine POC Glucose 200 H 181 H 131 H Random Glucose Calcium AST Alkaline Phosphatase C-Reactive Protein Total Protein Albumin Vancomycin Trough Urine Opiates Screen 07/19/18 07/20/18 07/20/18 20:35 03:38 07:20 WBC RBC 3.23 L Hgb 8.7 L Hct 26.4 L MCH 26.9 L Plt Count MPV 6.4 L Neut % (Auto) 73.7 H [place] % (Auto) 9.6 H Neut # (Auto) [place] # (Auto) ESR APTT Sodium Chloride BUN Creatinine POC Glucose 170 H 128 H Random Glucose Calcium AST Alkaline Phosphatase C-Reactive Protein Total Protein Albumin Vancomycin Trough Urine Opiates Screen 07/20/18 07/20/18 07/20/18 07:20 07:54 12:09 WBC RBC Hgb Hct MCH Plt Count MPV Neut % (Auto) [place] % (Auto) Neut # (Auto) [place] # (Auto) ESR APTT Sodium Chloride BUN Creatinine 0.52 L POC Glucose 141 H 182 H Random Glucose 141 H Calcium AST Alkaline Phosphatase C-Reactive Protein Total Protein Albumin 2.1 L D Vancomycin Trough Urine Opiates Screen 07/20/18 07/20/18 07/20/18 13:50 16:43 21:08 WBC RBC Hgb Hct MCH Plt Count MPV Neut % (Auto) [place] % (Auto) Neut # (Auto) [place] # (Auto) ESR APTT Sodium Chloride BUN Creatinine POC Glucose 186 H 140 H Random Glucose Calcium AST Alkaline Phosphatase C-Reactive Protein Total Protein Albumin Vancomycin Trough 10.6 H Urine Opiates Screen 07/21/18 07/21/18 07/21/18 05:30 05:30 16:00 WBC 12.5 H RBC 2.98 L Hgb 8.0 L Hct 24.1 L MCH 26.8 L Plt Count MPV 6.4 L Neut % (Auto) 77.7 H [place] % (Auto) 9.7 H Neut # (Auto) 9.7 H [place] # (Auto) 1.2 H ESR APTT Sodium Chloride BUN 29 H Creatinine POC Glucose 138 H Random Glucose Calcium AST Alkaline Phosphatase C-Reactive Protein Total Protein Albumin 2.3 L Vancomycin Trough Urine Opiates Screen 07/21/18 07/22/18 07/22/18 19:40 03:02 07:36 WBC RBC Hgb Hct MCH Plt Count MPV Neut % (Auto) [place] % (Auto) Neut # (Auto) [place] # (Auto) ESR APTT Sodium Chloride BUN Creatinine POC Glucose 193 H 160 H 151 H Random Glucose Calcium AST Alkaline Phosphatase C-Reactive Protein Total Protein Albumin Vancomycin Trough Urine Opiates Screen 07/22/18 07/22/18 07/22/18 11:51 13:39 16:34 WBC RBC Hgb Hct MCH Plt Count MPV Neut % (Auto) [place] % (Auto) Neut # (Auto) [place] # (Auto) ESR APTT Sodium Chloride BUN Creatinine POC Glucose 192 H 206 H Random Glucose Calcium AST Alkaline Phosphatase C-Reactive Protein Total Protein Albumin Vancomycin Trough 15.4 H Urine Opiates Screen 07/22/18 07/23/18 07/23/18 20:50 04:24 04:24 WBC 11.4 H RBC 3.03 L Hgb 8.0 L Hct 24.5 L MCH 26.6 L Plt Count MPV 6.4 L Neut % (Auto) 79.1 H [place] % (Auto) 9.2 H Neut # (Auto) 9.1 H [place] # (Auto) 1.0 H ESR APTT Sodium 135 L Chloride BUN Creatinine POC Glucose 148 H Random Glucose 144 H Calcium 8.2 L AST Alkaline Phosphatase C-Reactive Protein Total Protein Albumin Vancomycin Trough Urine Opiates Screen 07/23/18 07/23/18 07/23/18 07:41 11:49 17:30 WBC RBC Hgb Hct MCH Plt Count MPV Neut % (Auto) [place] % (Auto) Neut # (Auto) [place] # (Auto) ESR APTT Sodium Chloride BUN Creatinine POC Glucose 182 H 223 H 182 H Random Glucose Calcium AST Alkaline Phosphatase C-Reactive Protein Total Protein Albumin Vancomycin Trough Urine Opiates Screen 07/23/18 07/24/18 07/24/18 22:16 03:22 08:19 WBC RBC Hgb Hct MCH Plt Count MPV Neut % (Auto) [place] % (Auto) Neut # (Auto) [place] # (Auto) ESR APTT Sodium Chloride BUN Creatinine POC Glucose 212 H 177 H 164 H Random Glucose Calcium AST Alkaline Phosphatase C-Reactive Protein Total Protein Albumin Vancomycin Trough Urine Opiates Screen 07/24/18 07/24/18 07/24/18 12:50 13:30 16:47 WBC RBC Hgb Hct MCH Plt Count MPV Neut % (Auto) [place] % (Auto) Neut # (Auto) [place] # (Auto) ESR APTT Sodium Chloride BUN Creatinine POC Glucose 184 H 188 H Random Glucose Calcium AST Alkaline Phosphatase C-Reactive Protein Total Protein Albumin Vancomycin Trough 10.9 H Urine Opiates Screen 07/24/18 07/25/18 07/25/18 19:29 00:56 03:49 WBC RBC Hgb Hct MCH Plt Count MPV Neut % (Auto) [place] % (Auto) Neut # (Auto) [place] # (Auto) ESR APTT Sodium Chloride BUN Creatinine POC Glucose 151 H 181 H Random Glucose Calcium AST Alkaline Phosphatase C-Reactive Protein Total Protein Albumin Vancomycin Trough Urine Opiates Screen Pos H 07/25/18 07/25/18 07/25/18 05:00 05:00 07:31 WBC 13.0 H RBC 3.06 L Hgb 8.2 L Hct 24.6 L MCH 26.8 L Plt Count MPV 6.5 L Neut % (Auto) 79.1 H [place] % (Auto) 9.0 H Neut # (Auto) 10.3 H [place] # (Auto) 1.2 H ESR APTT Sodium 134 L Chloride 97 L BUN Creatinine POC Glucose 137 H Random Glucose 120 H Calcium AST Alkaline Phosphatase C-Reactive Protein Total Protein Albumin Vancomycin Trough Urine Opiates Screen 07/25/18 07/25/18 07/25/18 11:48 16:50 21:30 WBC RBC Hgb Hct MCH Plt Count MPV Neut % (Auto) [place] % (Auto) Neut # (Auto) [place] # (Auto) ESR APTT Sodium Chloride BUN Creatinine POC Glucose 139 H 211 H 223 H Random Glucose Calcium AST Alkaline Phosphatase C-Reactive Protein Total Protein Albumin Vancomycin Trough Urine Opiates Screen 07/26/18 07/26/18 07/26/18 04:16 04:16 07:47 WBC 13.3 H RBC 3.02 L Hgb 8.1 L Hct 24.4 L MCH 26.7 L Plt Count MPV Neut % (Auto) 80.2 H [place] % (Auto) Neut # (Auto) 10.7 H [place] # (Auto) 1.0 H ESR APTT Sodium 133 L Chloride 97 L BUN Creatinine POC Glucose 64 L Random Glucose 72 L Calcium AST 14 L Alkaline Phosphatase 119 H C-Reactive Protein Total Protein Albumin 2.2 L Vancomycin Trough Urine Opiates Screen Assessment and Plan - Plan 58 year old male 1. Cellulitis of the left forefinger and left hand. Improved 2. Tenosynovitis of the left hand. Post debridement. Culture has AFB. sent to state lab for ID. Patient noted redness of the hand waxing and waning for the last couple of months. 3. Degenerative changes versus discitis on of lumbar spine on MRI. I reviewed her radiological studies Hand X-Ray 07/18/18 20:57 CONCLUSION: Soft tissues are and mild periosteal reaction the proximal phalanx of the fourth digit. Chest X-Ray 07/22/18 12:33 CONCLUSION: Under aerated with minimal parenchymal changes right base Lumbar Spine X-Ray 07/23/18 00:00 CONCLUSION: Moderate to severe degenerative changes are again seen. Lumbar Spine MRI 07/24/18 00:00 CONCLUSION: 1. Very prominent edema seen throughout the L4 and L5 vertebral bodies and at the disc level. This could be from exuberant degenerative change versus discitis. If this is from discitis, then involvement in the vertebral bodies/ osteomyelitis would need to be suspected. There is severe stenosis at this level. 2. Moderate stenosis at the L2-L3 level caused by disc bulge and facet hypertrophy. 3. Mild disc bulge at the L1-L2 and L5-S1 levels. Neuro: neuro checks in a serial fashion. Degenerative change versus discitis. He is at increased surgical risk . Recommend IV antibiotics. Within the past decade, we do not perform open procedures for biopsy of the vertebral body. Consider CT guided biopsy of the disk space for cultures. There is no epidural abscess. The spinal stenosis is chronic. I do not recommend spinal surgery at this time Pulmonary: aggressive pulmonary toilette, nasotracheal suction, and breathing treatments with nebulizers. Daily PT and OT Renal: Continue to monitor closely urine output, BUN and creatinine Hand cellulitis Flexor tenosynovitis Hand x-ray significant for periosteal reaction of the proximal phalanx of the left fourth digit Vancomycin/Zosyn Blood cultures pending Hand surgery consulted, will manage Atrial fibrillation Status post ablation Holding home Eliquis Continue home medications once reconciled Diabetes mellitus Holding long-acting insulin given patient n.p.o. Sliding-scale insulin Monitor blood glucose Hypertension/hyperlipidemia Continue home medications ID continue vancomycin, piperacillin/tazobactam. Biaxin . Monitor cultures. Monitor temperature. Continue Protonix for stress ulcer prophylaxis Continue Teofilo hose and SCD's for DVT prophylaxis Caprini VTE Risk Assessment Caprini VTE Risk Assessment: Moderate/High Risk (score >= 2) Caprini Risk Assessment Model: Point Value = 1 Point Value = 2 Point Value = 3 Point Value = 5 Age 41-60 Minor surgery BMI > 25 kg/m2 Swollen legs Varicose veins or History of unexplained or recurrent spontaneous Oral contraceptives or hormone replacement Sepsis (< 1 month) Serious lung disease, including pneumonia (< 1 month) Abnormal pulmonary function Acute myocardial infarction Congestive heart failure (< 1 month) History of inflammatory bowel disease Medical patient at bed rest Age 61-74 Arthroscopic surgery Major open surgery (> 45 min) Laparoscopic surgery (> 45 min) Malignancy Confined to bed (> 72 hours) Immobilizing plaster cast Central venous access Age >= 75 History of VTE Family history of VTE Factor V Leiden Prothrombin [id number] Lupus anticoagulant Anticardiolipin antibodies Elevated serum homocysteine Heparin-induced thrombocytopenia Other congenital or acquired thrombophilia Stroke (< 1 month) Elective arthroplasty Hip, pelvis, or leg fracture Acute spinal cord injury (< 1 month) Prophylaxis Regimen: Total Risk Factor Score Risk Level Prophylaxis Regimen 0-1 Low Early ambulation 2 Moderate Order ONE of the following: *Sequential Compression Device (SCD) *Heparin 5000 units SQ BID 3-4 Higher Order ONE of the following medications: *Heparin 5000 units SQ TID *Enoxaparin/Lovenox 40 mg SQ daily (WT < 150 kg, CrCl > 30 mL/min) *Enoxaparin/Lovenox 30 mg SQ daily (WT < 150 kg, CrCl > 10-29 mL/min) *Enoxaparin/Lovenox 30 mg SQ BID (WT < 150 kg, CrCl > 30 mL/min) AND/OR *Sequential Compression Device (SCD) 5 or more Highest Order ONE of the following medications: *Heparin 5000 units SQ TID (Preferred with Epidurals) *Enoxaparin/Lovenox 40 mg SQ daily (WT < 150 kg, CrCl > 30 mL/min) *Enoxaparin/Lovenox 30 mg SQ daily (WT < 150 kg, CrCl > 10-29 mL/min) *Enoxaparin/Lovenox 30 mg SQ BID (WT < 150 kg, CrCl > 30 mL/min) AND *Sequential Compression Device (SCD) Further recommendations will be provided depending on the patient's clinical evaluation and follow up studies.
[2018-07-26] MEDS: Insulin Detemir Inj 1,000 UNIT/10 ML Vial SQ SCH ×3 (09:37→21:06)
--- NOTE | 2018-07-26 16:17 | P.PNIM ---
Subjective Interval history: Patient complains of right shoulder pain today. He says the pain has been worsening. He reports constipation today also. Physical Exam Vital signs: Vital Signs 07/25/18 20:00 07/25/18 23:41 07/26/18 00:00 Temperature 98.8 F 98.9 F Pulse Rate 76 83 Respiratory Rate 18 18 19 Blood Pressure 133/60 114/58 L Pulse Oximetry 97 98 07/26/18 08:00 07/26/18 12:00 Temperature 97.8 F 97.8 F Pulse Rate 87 73 Respiratory Rate 18 18 Blood Pressure 177/86 H 121/58 L Pulse Oximetry 99 99 Intake & Output 07/25/18 07/26/18 07/26/18 18:59 06:59 18:59 Intake Total 617.5 / 617.5 3017.5 / 3017.5 567.5 / 567.5 Output Total 1100 / 1100 Balance 617.5 / 617.5 1917.5 / 1917.5 567.5 / 567.5 Weight 96.3 kg Intake: IV 617.5 / 617.5 617.5 / 617.5 567.5 / 567.5 Zosyn 3.375 GM Premix 50 ML @ 100 / 100 100 / 100 50 / 50 100 mls/hr IV.SIG Q6H ROBBIE Rx#: [id number] Vancomycin Inj 1,750 MG In NS 517.5 / 517.5 517.5 / 517.5 517.5 / 517.5 Inj 500 ML @ 257.5 mls/hr IV. SIG Q12H ROBBIE Rx#:[id number] Oral 2400 / 2400 Output: Urine 1100 / 1100 Other: # Voids 3 Date of Last Bowel Movement 07/23/18 07/23/18 Narrative: GENERAL: NAD, A&Ox3 HEAD: Normocephalic. NECK: Supple, trachea midline. No lymphadenopathy. EYES: No scleral icterus. No injection or drainage. CARDIOVASCULAR: Regular rate and rhythm without murmurs, gallops, or rubs. RESPIRATORY: Breath sounds equal bilaterally. No accessory muscle use. GASTROINTESTINAL: Abdomen soft, non-tender, nondistended. MUSCULOSKELETAL: No cyanosis, or edema. Increased range of motion at back secondary to discitis. Bandages at left hand and right foot. Decreased range of motion right shoulder. SKIN: Warm and dry. NEURO: No focal neurological deficits. Results - Labs CBC & Chem 7: 07/26/18 04:16 07/26/18 04:16 Laboratory Results - last 24 hr 07/25/18 07/25/18 07/26/18 16:50 21:30 03:40 WBC RBC Hgb Hct MCV MCH MCHC RDW Plt Count MPV Prelim Diff (Auto) Neut % (Auto) Lymph % (Auto) Addison % (Auto) Eos % (Auto) Baso % (Auto) Neut # (Auto) Lymph # (Auto) Addison # (Auto) Eos # (Auto) Baso # (Auto) WBC Differential Diff Scan Differential Comment Platelet Estimate Platelet Morphology Sodium Potassium Chloride Carbon Dioxide Anion Gap BUN Creatinine Estimated GFR POC Glucose 211 H 223 H 94 Random Glucose Calcium Total Bilirubin AST ALT Alkaline Phosphatase Total Protein Albumin 07/26/18 07/26/18 07/26/18 04:16 04:16 07:47 WBC 13.3 H RBC 3.02 L Hgb 8.1 L Hct 24.4 L MCV 80.8 MCH 26.7 L MCHC 33.0 RDW 15.8 Plt Count 355 MPV 7.4 Prelim Diff (Auto) Slide review pending Neut % (Auto) 80.2 H Lymph % (Auto) 10.4 Addison % (Auto) 7.6 Eos % (Auto) 1.0 Baso % (Auto) 0.8 Neut # (Auto) 10.7 H Lymph # (Auto) 1.4 Addison # (Auto) 1.0 H Eos # (Auto) 0.1 Baso # (Auto) 0.1 WBC Differential . Diff Scan Auto diff confirmed Differential Comment . Platelet Estimate Normal Platelet Morphology Normal Sodium 133 L Potassium 4.0 Chloride 97 L Carbon Dioxide 25.4 Anion Gap 11 BUN 17 Creatinine 0.70 Estimated GFR Greater than 89 POC Glucose 64 L Random Glucose 72 L Calcium 8.6 Total Bilirubin 0.2 AST 14 L ALT 13 Alkaline Phosphatase 119 H Total Protein 7.7 Albumin 2.2 L 07/26/18 12:05 WBC RBC Hgb Hct MCV MCH MCHC RDW Plt Count MPV Prelim Diff (Auto) Neut % (Auto) Lymph % (Auto) Addison % (Auto) Eos % (Auto) Baso % (Auto) Neut # (Auto) Lymph # (Auto) Addison # (Auto) Eos # (Auto) Baso # (Auto) WBC Differential Diff Scan Differential Comment Platelet Estimate Platelet Morphology Sodium Potassium Chloride Carbon Dioxide Anion Gap BUN Creatinine Estimated GFR POC Glucose 125 H Random Glucose Calcium Total Bilirubin AST ALT Alkaline Phosphatase Total Protein Albumin Assessment and Plan - Assessment (1) Osteomyelitis Code(s): M86.9 - Osteomyelitis, unspecified Status: Acute (2) Abscess of hand, left Code(s): L02.512 - Cutaneous abscess of left hand Status: Acute - Plan 58-year-old male admitted secondary to left hand abscess and severe back pain MRI right shoulder ordered to evaluate for septic joint given patient's numerous infections. Additionally, magnesium citrate ordered for constipation. L4/L5 discitis Severe back pain Severe spinal stenosis Potential etiology of infection Neurosurgery consulted ID recommends biopsy Hand cellulitis Flexor tenosynovitis Osteomyelitis Continue vancomycin and Zosyn And Surgeon following Follow cultures Right foot osteomyelitis ID following Atrial fibrillation Patient is status post ablation for this Eliquis on hold secondary to procedures and potential future procedures Diabetes mellitus type 2 Follow blood sugars Insulin sliding scale Diabetic diet Hyperlipidemia Continue present treatment Follow as an outpatient Hypertension Continue baseline treatment Follow blood pressures Adjust treatments as needed DVT Prophylaxis Lovenox (1) Osteomyelitis Qualifiers: Osteomyelitis type: unspecified type Osteomyelitis location: hand Laterality : left Qualified Code(s): M86.9 - Osteomyelitis, unspecified
[2018-07-26] MEDS ORDERED: Magnesium Citrate Liq 300 ML Bottle PO ONE (17:00)
--- NOTE | 2018-07-26 18:04 | MR ---
EXAM DATE: 07/26/2018 5:38 PM EDT AGE/SEX: 58 years / Male INDICATIONS: . Pain. Evaluate for septic joint CLINICAL DATA: This is the patient's subsequent encounter. Patient reports that signs and symptoms h ave been present for 1 week and indicates a pain score of 5/10. MEDICAL/SURGICAL HISTORY: Diabetes. Hypertension. . Foot COMPARISON: No prior exams available for comparison. TECHNIQUE: Multiplanar, multisequence MRI examination was performed without contrast. FINDINGS: There is a small quantity of joint fluid with fluid in the subcoracoid bursa and a focal collection j ust anterior to the bicipital groove and subscapularis attachment. Moderate edematous change tissues around the shoulder. There are some enlarged adjacent axillary lymph nodes. There is moderate signal alteration in the greater tuberosity and underlying medullary space which is nonspecific however worr isome for osteomyelitis in the appropriate clinical setting. The rotator cuff tendons appear intact. The glenohumeral relationship is normal. There is some arthri tic change in the AC joint. CONCLUSION: Cannot exclude septic arthritis and osteomyelitis. Electronically signed by: Collin Ramon MD 07/26/2018 6:02 PM EDT
[2018-07-27] MEDS: Piperacil/Tazo 3.375 GM Premix 50 ML IV.SIG SCH ×4 (02:13→20:50)
[2018-07-27] MEDS: Insulin NovoLOG Aspart Correctional Sugar Inj SQ SCH ×5 (02:20→20:41)
[2018-07-27] MEDS: Vancomycin Inj 1,750 MG in Sodium Chlor 0.9% Inj 500 ML IV.SIG SCH ×2 (02:52→16:07)
[2018-07-27] MEDS: Baclofen 10 MG Tablet PO SCH ×3 (05:11→21:00)
[2018-07-27] MEDS: dilTIAZem CD 240 MG Capsule PO SCH (09:28)
[2018-07-27] MEDS: Senna/Docusate Sodium 8.6/50 MG Tablet PO SCH ×2 (09:28→20:41)
[2018-07-27] MEDS: Ramipril 2.5 MG Capsule PO SCH (09:28)
[2018-07-27] MEDS: Furosemide 20 MG Tablet PO SCH ×2 (09:28→20:41)
[2018-07-27] MEDS: Enoxaparin Inj 40 MG/0.4 ML Syringe SQ SCH (09:32)
[2018-07-27] MEDS: Insulin Detemir Inj 1,000 UNIT/10 ML Vial SQ SCH ×2 (10:45→20:41)
--- NOTE | 2018-07-27 12:18 | P.PN ---
Subjective Interval history: complaint with dressing and exercises complains of mild pain and stiffness no fever Physical Exam Vital signs: Vital Signs 07/26/18 16:00 07/26/18 20:00 07/27/18 00:00 Temperature 97.9 F 98.4 F 98.6 F Pulse Rate 76 79 88 Respiratory Rate 16 20 20 Blood Pressure 116/58 L 158/69 H 134/65 Pulse Oximetry 96 95 100 07/27/18 08:00 Temperature 97.9 F Pulse Rate 83 Respiratory Rate 17 Blood Pressure 148/71 H Pulse Oximetry 98 Intake & Output 07/26/18 07/27/18 07/27/18 18:59 06:59 18:59 Intake Total 617.5 / 617.5 1297.5 / 1297.5 Output Total 1550 / 1550 Balance 617.5 / 617.5 -252.5 / -252.5 Intake: IV 617.5 / 617.5 617.5 / 617.5 Zosyn 3.375 GM Premix 50 ML @ 100 / 100 100 / 100 100 mls/hr IV.SIG Q6H ROBBIE Rx#: [id number] Vancomycin Inj 1,750 MG In NS 517.5 / 517.5 517.5 / 517.5 Inj 500 ML @ 257.5 mls/hr IV. SIG Q12H ROBBIE Rx#:[id number] Oral 680 / 680 Output: Urine 1550 / 1550 Other: Date of Last Bowel Movement 07/23/18 07/23/18 Narrative: left hand dressing intact maceration of the surrounding skin noted no drainage noted flexion deformity of the ring finger range of motion of ring finger is limited intact distal circulation gram stain: acid fast Results - Labs CBC & Chem 7: 07/26/18 04:16 07/26/18 04:16 Laboratory Results - last 24 hr 07/26/18 07/26/18 07/27/18 18:15 19:34 02:16 POC Glucose 190 H 158 H 169 H 07/27/18 09:27 POC Glucose 154 H - Imaging Impressions Shoulder MRI 07/26/18 00:00 CONCLUSION: Cannot exclude septic arthritis and osteomyelitis. Assessment and Plan - Assessment (1) Suppurative tenosynovitis of flexor tendon of left hand Code(s): M65.142 - Other infective (teno)synovitis, left hand Status: Acute - Plan dry dressing applied range of motion exercises by occupational therapy appreciate ID recommendations, follow up [facility] continue antibiotics based on ID recommendations daily dressing changes hand surgery will follow.
--- NOTE | 2018-07-27 15:11 | P.CONOP ---
[facility] Orthopedics Consult Note - [facility] Consult date: 07/27/18 Requesting physician: Vaughn Mcgrath Consult reason: joint pain Chief complaint: Osteomyelitis Narrative: 58-year-old male with past medical history significant for hypertension, hyperlipidemia, GERD, diabetes mellitus and atrial fibrillation status post ablation presents to the emergency department for evaluation of back pain. He has had an extensive workup and has a diagnosis of discitis. He has been evaluated by neurosurgery and infectious disease and currently is on antibiotics. He was complaining of shoulder pain. A MRI scan was completed and orthopedic consultation requested. Upon further questioning the patient has had a several week history of shoulder pain which is not significantly changed while here. He relates pain with movement and does have restricted mobility. The patient had a recent MRI scan of the shoulder which showed fluid in the subacromial and subcoracoid bursal regions and nonspecific edema of the proximal humerus and "could not exclude septic arthritis or osteomyelitis". The patient is a somewhat difficult historian but describes multiple other orthopedic procedures and an ongoing chronic problem. Review of Systems All other systems reviewed negative except as stated in [facility] - History History Provided By: Patient - Medical History Medical History: Medical History (Last Updated 07/18/18 @ 23:20 by Eloisa Fitzgerald MD) Amputated toe GERD (gastroesophageal reflux disease) Hyperlipidemia Back pain Hypertension Osteomyelitis Afib Diabetes - Surgical History Surgical History: Surgical History (Last Updated 07/18/18 @ 23:20 by Eloisa Fitzgerald MD) H/O foot surgery - Family History Family History: Family History (Last Updated 07/18/18 @ 23:20 by Eloisa Fitzgerald MD) Other Coronary artery disease - Tobacco History Second Hand Smoke Exposure: No Smoking Status: Never smoker - Alcohol History How Often Do You Have a Drink Containing Alcohol: Never - Substance Use History Substance History: No History of Abuse - Travel History Recent Travel in the [place] Within the Last 8 Weeks: No Recent Travel Out of the Country Within the Last 8 Weeks: No - Immunization History Tetanus Immunization: Unsure Hx Influenza Vaccine This Season: No Medications and Allergies Active Medications: Active Medications Acetaminophen (Tylenol) 650 mg PO Q4H PRN PRN Reason: Temp > 100.4 Last Admin: 07/22/18 00:27 Dose: 650 mg Al Hydroxide/Mg Hydroxide (Milk Of Magnesia Liq) 30 ml PO Q12H PRN PRN Reason: Mild Constipation Baclofen (Lioresal) 10 mg PO Q8HR [facility] Last Admin: 07/27/18 05:11 Dose: 10 mg Bisacodyl (Dulcolax Supp) 10 mg RECTAL DAILY PRN PRN Reason: SEVERE CONSITIPATION Clarithromycin (Biaxin) 500 mg PO Q12H [facility] Last Admin: 07/27/18 05:14 Dose: 500 mg Collagenase (Santyl Oint) 1 applicatio TOPICAL DAILY [facility] Last Admin: 07/26/18 08:34 Dose: Not Given Dextrose (D50w Vial) 50 ml IV.PUSH UNSCH PRN PRN Reason: PER HYPOGLYCEMIA PROTOCOL Diltiazem HCl (Cardizem Cd 24hr) 240 mg PO DAILY [facility] Last Admin: 07/27/18 09:28 Dose: 240 mg Enoxaparin Sodium (Lovenox Inj) 40 mg SQ DAILY [facility] Last Admin: 07/27/18 09:32 Dose: 40 mg Furosemide (Lasix) 20 mg PO BID [facility] Last Admin: 07/27/18 09:28 Dose: 20 mg Glucagon (Glucagon Inj) 1 mg OTHER PRN PRN PRN Reason: for Hypoglycemia Protocol Vancomycin HCl 1,750 mg/ (Sodium Chloride) 517.5 mls @ 257.5 mls/hr IV.SIG Q12H [facility] Last Infusion: 07/27/18 05:08 Dose: Infused Piperacillin/Tazobactam/Dextrose (Zosyn 3.375 Gm Premix) 50 mls @ 100 mls/hr IV.SIG Q6H [facility] Last Infusion: 07/27/18 12:15 Dose: Infused Insulin Aspart (Novolog Insulin Correctional Sugar Inj) 0 unit SQ ACHS AND 3AM [facility]; Protocol Last Admin: 07/27/18 09:28 Dose: Not Given Insulin Detemir (Levemir Inj) 20 unit SQ BID [facility] Last Admin: 07/27/18 10:45 Dose: 20 unit Lactulose (Lactulose Liq) 30 ml PO DAILY PRN PRN Reason: SEVERE CONSITIPATION Last Admin: 07/26/18 13:28 Dose: 30 ml Menthol/Methyl Salicylate (Juan Miranda Oint) 1 applicatio TOPICAL UNSCH PRN PRN Reason: PAIN SCALE 1 TO 10 Ondansetron HCl (Zofran Inj) 4 mg IV.PUSH Q6H PRN PRN Reason: NAUSEA OR VOMITING Last Admin: 07/25/18 18:19 Dose: 4 mg Oxycodone HCl (Roxicodone) 30 mg PO Q4H PRN PRN Reason: PAIN SCALE 6 TO 10 Last Admin: 07/27/18 14:19 Dose: 30 mg Pantoprazole Sodium (Protonix) 40 mg PO DAILY [facility] Last Admin: 07/27/18 09:28 Dose: 40 mg Pharmacy Profile Note (Vancomycin Consult Pharmacy) 1 each OTHER UNSCH PRN PRN Reason: Pharmacy to dose Ramipril (Altace) 2.5 mg PO DAILY [facility] Last Admin: 07/27/18 09:28 Dose: 2.5 mg Senna/Docusate Sodium (Aliyah-Colace) 1 tab PO BID [facility] Last Admin: 07/27/18 09:28 Dose: 1 tab Sennosides (Senokot) 17.2 mg PO Q12H PRN PRN Reason: Moderate Constipation Last Admin: 07/25/18 22:16 Dose: 17.2 mg Allergies Allergy/AdvReac Type Severity Reaction Status Date / Time *MDRO Multi-Drug Resistant AdvReac Unknown MRSA Uncoded 06/16/17 16:34 Organism Home Medications Medication Instructions Recorded Confirmed Type apixaban [Eliquis] 5 mg PO BID 06/09/18 07/18/18 History diltiazem HCl 240 mg PO DAILY 06/09/18 07/22/18 History furosemide 20 mg PO BID 06/09/18 07/18/18 History insulin glargine [Lantus Solostar 50 unit SUB-Q BID 06/09/18 07/18/18 History U-100 Insulin] pantoprazole [Protonix] 40 mg PO DAILY 06/09/18 07/18/18 History ramipril 2.5 mg PO DAILY 06/09/18 07/18/18 History oxycodone 30 mg PO Q4H PRN 07/22/18 07/22/18 History Exam Vital signs: Vital Signs 07/26/18 16:00 07/26/18 20:00 07/27/18 00:00 Temperature 97.9 F 98.4 F 98.6 F Pulse Rate 76 79 88 Respiratory Rate 16 20 20 Blood Pressure 116/58 L 158/69 H 134/65 Pulse Oximetry 96 95 100 07/27/18 08:00 07/27/18 12:00 Temperature 97.9 F 97.8 F Pulse Rate 83 78 Respiratory Rate 17 17 Blood Pressure 148/71 H 125/65 Pulse Oximetry 98 99 Intake & Output 07/26/18 07/27/18 07/27/18 18:59 06:59 18:59 Intake Total 617.5 / 617.5 1297.5 / 1297.5 50 / 50 Output Total 1550 / 1550 Balance 617.5 / 617.5 -252.5 / -252.5 50 / 50 Intake: IV 617.5 / 617.5 617.5 / 617.5 50 / 50 Zosyn 3.375 GM Premix 50 ML @ 100 / 100 100 / 100 50 / 50 100 mls/hr IV.SIG Q6H ROBBIE Rx#: [id number] Vancomycin Inj 1,750 MG In NS 517.5 / 517.5 517.5 / 517.5 Inj 500 ML @ 257.5 mls/hr IV. SIG Q12H ROBBIE Rx#:[id number] Oral 680 / 680 Output: Urine 1550 / 1550 Other: Date of Last Bowel Movement 07/23/18 07/23/18 - Constitutional no acute distress, average body habitus - Routine Extremities Exam Absent: cyanosis, clubbing, edema - Detailed Upper Extremity Exam Shoulder/Upper Arm: Left normal inspection, Right swelling, Right tenderness ( There is no warmth or erythema. There is no induration or fluctuance.), Right decreased ROM, Right pain with active ROM, Right pain with passive ROM, Right tenderness over the bicipital tendon, Right tenderness over the SA bursa, Right impingement sign present Results - Labs Result Diagrams: 07/26/18 04:16 07/26/18 04:16 Labs: Laboratory Results - last 24 hr 07/26/18 07/26/18 07/27/18 18:15 19:34 02:16 POC Glucose 190 H 158 H 169 H 07/27/18 07/27/18 09:27 13:30 POC Glucose 154 H 146 H - Diagnostic results Imaging: Impressions Shoulder MRI 07/26/18 00:00 CONCLUSION: Cannot exclude septic arthritis and osteomyelitis. Shoulder MRI: image reviewed Assessment and Plan - Assessment and Plan - Assessment (1) Osteomyelitis Code(s): M86.9 - Osteomyelitis, unspecified Status: Acute The findings were discussed. The patient's clinical examination is not consistent with a surgical infection involving the right shoulder at this time. There are nonspecific changes in the proximal humerus which normally would be treated with antibiotics. Whether he develops an abscess would be the decision to proceed with surgical management. He does not appear to have evidence of septic arthritis and his rotator cuff appears intact. The patient states that the symptoms have been present for several weeks. Consider interventional radiology for aspiration of the fluid collection. His other cultures have been negative although he currently has a positive culture for acid-fast bacilli. Will follow. (2) Abscess of hand, left Code(s): L02.512 - Cutaneous abscess of left hand Status: Acute L4/L5 discitis Severe back pain Severe spinal stenosis Potential etiology of infection Neurosurgery consulted ID recommends biopsy Hand cellulitis Flexor tenosynovitis Osteomyelitis Continue vancomycin and Zosyn And Surgeon following Follow cultures Right foot osteomyelitis ID following Atrial fibrillation Patient is status post ablation for this Eliquis on hold secondary to procedures and potential future procedures Diabetes mellitus type 2 Follow blood sugars Insulin sliding scale Diabetic diet Hyperlipidemia Continue present treatment Follow as an outpatient Hypertension Continue baseline treatment Follow blood pressures Adjust treatments as needed DVT Prophylaxis Lovenox (1) Osteomyelitis Qualifiers: Osteomyelitis type: unspecified type Osteomyelitis location: hand Laterality : left Qualified Code(s): M86.9 - Osteomyelitis, unspecified
--- NOTE | 2018-07-27 15:23 | P.PNIM ---
Subjective Interval history: MRI of right shoulder shows evidence of possible infection with risk for osteomyelitis or septic joint. Ortho has evaluated this patient and no acute concern for septic joint. Potential for abscess development must be monitored further and possible need for aspiration of joint with IR. Physical Exam Vital signs: Vital Signs 07/26/18 16:00 07/26/18 20:00 07/27/18 00:00 Temperature 97.9 F 98.4 F 98.6 F Pulse Rate 76 79 88 Respiratory Rate 16 20 20 Blood Pressure 116/58 L 158/69 H 134/65 Pulse Oximetry 96 95 100 07/27/18 08:00 07/27/18 12:00 Temperature 97.9 F 97.8 F Pulse Rate 83 78 Respiratory Rate 17 17 Blood Pressure 148/71 H 125/65 Pulse Oximetry 98 99 Intake & Output 07/26/18 07/27/18 07/27/18 18:59 06:59 18:59 Intake Total 617.5 / 617.5 1297.5 / 1297.5 50 / 50 Output Total 1550 / 1550 Balance 617.5 / 617.5 -252.5 / -252.5 50 / 50 Intake: IV 617.5 / 617.5 617.5 / 617.5 50 / 50 Zosyn 3.375 GM Premix 50 ML @ 100 / 100 100 / 100 50 / 50 100 mls/hr IV.SIG Q6H ROBBIE Rx#: [id number] Vancomycin Inj 1,750 MG In NS 517.5 / 517.5 517.5 / 517.5 Inj 500 ML @ 257.5 mls/hr IV. SIG Q12H ROBBIE Rx#:[id number] Oral 680 / 680 Output: Urine 1550 / 1550 Other: Date of Last Bowel Movement 07/23/18 07/23/18 Narrative: leGENERAL: NAD, A&Ox3 HEAD: Normocephalic. NECK: Supple, trachea midline. No lymphadenopathy. EYES: No scleral icterus. No injection or drainage. CARDIOVASCULAR: Regular rate and rhythm without murmurs, gallops, or rubs. RESPIRATORY: Breath sounds equal bilaterally. No accessory muscle use. GASTROINTESTINAL: Abdomen soft, non-tender, nondistended. MUSCULOSKELETAL: No cyanosis, or edema. Increased range of motion at back secondary to discitis. Bandages at left hand and right foot. Decreased range of motion right shoulder. SKIN: Warm and dry. NEURO: No focal neurological deficits. Results - Labs CBC & Chem 7: 07/26/18 04:16 07/26/18 04:16 Laboratory Results - last 24 hr 07/26/18 07/26/18 07/27/18 18:15 19:34 02:16 POC Glucose 190 H 158 H 169 H 07/27/18 07/27/18 09:27 13:30 POC Glucose 154 H 146 H - Imaging Impressions Shoulder MRI 07/26/18 00:00 CONCLUSION: Cannot exclude septic arthritis and osteomyelitis. Assessment and Plan - Assessment (1) Osteomyelitis Code(s): M86.9 - Osteomyelitis, unspecified Status: Acute (2) Abscess of hand, left Code(s): L02.512 - Cutaneous abscess of left hand Status: Acute - Plan 58-year-old male admitted secondary to left hand abscess and severe back pain MRI right shoulder shows possible evidence of infection. Follow for worsening of pain. Continue antibiotics. Will consider aspiration of the joint if pain worsens, unless otherwise instructed. Will repeat imaging for evaluation for abscess if pain worsens through time. Right shoulder pain Risk for osteomyelitis or abscess formation Consider repeat imaging and/or aspiration of joint for worsening L4/L5 discitis Severe back pain Severe spinal stenosis Potential etiology of infection Neurosurgery consulted ID recommends biopsy Hand cellulitis Flexor tenosynovitis Osteomyelitis Continue vancomycin and Zosyn And Surgeon following Follow cultures Right foot osteomyelitis ID following Atrial fibrillation Patient is status post ablation for this Eliquis on hold secondary to procedures and potential future procedures Diabetes mellitus type 2 Follow blood sugars Insulin sliding scale Diabetic diet Hyperlipidemia Continue present treatment Follow as an outpatient Hypertension Continue baseline treatment Follow blood pressures Adjust treatments as needed DVT Prophylaxis Lovenox (1) Osteomyelitis Qualifiers: Osteomyelitis type: unspecified type Osteomyelitis location: hand Laterality : left Qualified Code(s): M86.9 - Osteomyelitis, unspecified
[2018-07-27] MEDS: Collagenase Oint 30 GM Tube TOPICAL SCH (20:42)
[2018-07-28] MEDS: Piperacil/Tazo 3.375 GM Premix 50 ML IV.SIG SCH ×4 (02:51→21:41)
[2018-07-28] MEDS: Insulin NovoLOG Aspart Correctional Sugar Inj SQ SCH ×5 (02:53→21:58)
[2018-07-28] MEDS: Vancomycin Inj 1,750 MG in Sodium Chlor 0.9% Inj 500 ML IV.SIG SCH ×2 (03:19→14:08)
[2018-07-28] MEDS: Baclofen 10 MG Tablet PO SCH ×3 (05:35→21:41)
[2018-07-28] MEDS: dilTIAZem CD 240 MG Capsule PO SCH (08:02)
[2018-07-28] MEDS: Senna/Docusate Sodium 8.6/50 MG Tablet PO SCH ×2 (08:02→20:20)
[2018-07-28] MEDS: Furosemide 20 MG Tablet PO SCH ×2 (08:03→20:20)
[2018-07-28] MEDS: Ramipril 2.5 MG Capsule PO SCH (08:03)
[2018-07-28] MEDS: Enoxaparin Inj 40 MG/0.4 ML Syringe SQ SCH (08:03)
[2018-07-28] MEDS: Collagenase Oint 30 GM Tube TOPICAL SCH (08:03)
[2018-07-28] MEDS: Insulin Detemir Inj 1,000 UNIT/10 ML Vial SQ SCH ×2 (08:04→22:00)
--- NOTE | 2018-07-28 08:15 | P.PNOP ---
Subjective Interval history: Patient is lying in bed and states he cannot sit up due to pain for examination. Patient is known to the orthopedic clinic. States he has pain "all over" and it is not isolated to the shoulder. No worsening of right shoulder symptoms and it appears stable. Physical Exam Vital signs: Vital Signs 07/27/18 12:00 07/27/18 16:00 07/27/18 20:24 Temperature 97.8 F 97.8 F 97.8 F Pulse Rate 78 65 69 Respiratory Rate 17 17 17 Blood Pressure 125/65 114/59 L 143/75 H Pulse Oximetry 99 100 96 07/27/18 20:41 07/27/18 23:31 07/28/18 00:05 Temperature 98.8 F Pulse Rate 77 Respiratory Rate 18 18 17 Blood Pressure 138/55 L Pulse Oximetry 96 Intake & Output 07/27/18 07/28/18 07/28/18 18:59 06:59 18:59 Intake Total 1700 / 1700 1397.5 / 1397.5 517.5 / 517.5 Output Total 1850 / 1850 1800 / 1800 Balance -150 / -150 -402.5 / -402.5 517.5 / 517.5 Weight 96 kg Intake: IV 100 / 100 617.5 / 617.5 517.5 / 517.5 Zosyn 3.375 GM Premix 50 ML @ 100 / 100 100 / 100 100 mls/hr IV.SIG Q6H ROBBIE Rx#: [id number] Vancomycin Inj 1,750 MG In NS 517.5 / 517.5 517.5 / 517.5 Inj 500 ML @ 257.5 mls/hr IV. SIG Q12H ROBBIE Rx#:[id number] Oral 1600 / 1600 780 / 780 Output: Urine 1850 / 1850 1800 / 1800 Other: Date of Last Bowel Movement 07/23/18 07/23/18 # Bowel Movements 1 1 Narrative: Shoulder/Upper Arm: Left normal inspection, Right swelling, Right tenderness ( There is no warmth or erythema. There is no induration or fluctuance.), Right decreased ROM, Right pain with active ROM, Right pain with passive ROM, Right tenderness over the bicipital tendon, Right tenderness over the SA bursa, Right impingement sign present Results - Labs CBC & Chem 7: 07/26/18 04:16 07/26/18 04:16 Laboratory Results - last 24 hr 07/27/18 07/27/18 07/27/18 09:27 13:30 17:24 POC Glucose 154 H 146 H 178 H 07/27/18 07/28/18 19:20 02:52 POC Glucose 230 H 205 H - Imaging Impressions Shoulder MRI 07/26/18 00:00 CONCLUSION: Cannot exclude septic arthritis and osteomyelitis. Assessment and Plan - Assessment and Plan - Assessment (1) Osteomyelitis Code(s): M86.9 - Osteomyelitis, unspecified Status: Acute Continue conservative care in regards to right shoulder Continue with antibiotic management No change in orthopedic status May possibly consider IR consult for right shoulder aspiration/culture Blood cx negative thus far Ortho will follow (2) Abscess of hand, left Code(s): L02.512 - Cutaneous abscess of left hand Status: Acute L4/L5 discitis Severe back pain Severe spinal stenosis Potential etiology of infection Neurosurgery consulted ID recommends biopsy Hand cellulitis Flexor tenosynovitis Osteomyelitis Continue vancomycin and Zosyn Acid Fast Bacilli And Surgeon following Follow cultures Right foot osteomyelitis ID following Atrial fibrillation Patient is status post ablation for this Eliquis on hold secondary to procedures and potential future procedures Diabetes mellitus type 2 Follow blood sugars Insulin sliding scale Diabetic diet Hyperlipidemia Continue present treatment Follow as an outpatient Hypertension Continue baseline treatment Follow blood pressures Adjust treatments as needed DVT Prophylaxis Lovenox (1) Osteomyelitis Qualifiers: Osteomyelitis type: unspecified type Osteomyelitis location: hand Laterality : left Qualified Code(s): M86.9 - Osteomyelitis, unspecified
--- NOTE | 2018-07-28 13:45 | P.PNIM ---
Subjective Interval history: Patient still complains of pains in multiple joints. No other complaints at this time. No fevers. Physical Exam Vital signs: Vital Signs 07/27/18 16:00 07/27/18 20:24 07/27/18 20:41 Temperature 97.8 F 97.8 F Pulse Rate 65 69 Respiratory Rate 17 17 18 Blood Pressure 114/59 L 143/75 H Pulse Oximetry 100 96 07/27/18 23:31 07/28/18 00:05 07/28/18 08:00 Temperature 98.8 F 99.2 F Pulse Rate 77 84 Respiratory Rate 18 17 18 Blood Pressure 138/55 L 152/84 H Pulse Oximetry 96 98 07/28/18 12:00 Temperature 99.0 F Pulse Rate 70 Respiratory Rate 18 Blood Pressure 116/60 Pulse Oximetry 98 Intake & Output 07/27/18 07/28/18 07/28/18 18:59 06:59 18:59 Intake Total 1700 / 1700 1397.5 / 1397.5 567.5 / 567.5 Output Total 1850 / 1850 1800 / 1800 Balance -150 / -150 -402.5 / -402.5 567.5 / 567.5 Weight 96 kg Intake: IV 100 / 100 617.5 / 617.5 567.5 / 567.5 Zosyn 3.375 GM Premix 50 ML @ 100 / 100 100 / 100 50 / 50 100 mls/hr IV.SIG Q6H ROBBIE Rx#: [id number] Vancomycin Inj 1,750 MG In NS 517.5 / 517.5 517.5 / 517.5 Inj 500 ML @ 257.5 mls/hr IV. SIG Q12H ROBBIE Rx#:[id number] Oral 1600 / 1600 780 / 780 Output: Urine 1850 / 1850 1800 / 1800 Other: Date of Last Bowel Movement 07/23/18 07/23/18 07/28/18 # Bowel Movements 1 1 Narrative: GENERAL: NAD, A&Ox3 HEAD: Normocephalic. NECK: Supple, trachea midline. No lymphadenopathy. EYES: No scleral icterus. No injection or drainage. CARDIOVASCULAR: Regular rate and rhythm without murmurs, gallops, or rubs. RESPIRATORY: Breath sounds equal bilaterally. No accessory muscle use. GASTROINTESTINAL: Abdomen soft, non-tender, nondistended. MUSCULOSKELETAL: No cyanosis, or edema. Increased range of motion at back secondary to discitis. Bandages at left hand and right foot. Decreased range of motion right shoulder. SKIN: Warm and dry. NEURO: No focal neurological deficits. Results - Labs CBC & Chem 7: 07/26/18 04:16 07/26/18 04:16 Laboratory Results - last 24 hr 07/27/18 07/27/18 07/28/18 17:24 19:20 02:52 POC Glucose 178 H 230 H 205 H 07/28/18 07/28/18 07:54 10:59 POC Glucose 159 H 197 H Assessment and Plan - Assessment (1) Osteomyelitis Code(s): M86.9 - Osteomyelitis, unspecified Status: Acute (2) Abscess of hand, left Code(s): L02.512 - Cutaneous abscess of left hand Status: Acute - Plan 58-year-old male admitted secondary to left hand abscess and severe back pain No worsening or improvement in pains. Pain medications adjusted. Systemic steroids initiated for inflammation. Right shoulder pain Risk for osteomyelitis or abscess formation Consider repeat imaging and/or aspiration of joint for worsening L4/L5 discitis Severe back pain Severe spinal stenosis Potential etiology of infection Neurosurgery consulted ID recommends biopsy Hand cellulitis Flexor tenosynovitis Osteomyelitis Continue vancomycin and Zosyn And Surgeon following Follow cultures Right foot osteomyelitis ID following Atrial fibrillation Patient is status post ablation for this Eliquis on hold secondary to procedures and potential future procedures Diabetes mellitus type 2 Follow blood sugars Insulin sliding scale Diabetic diet Hyperlipidemia Continue present treatment Follow as an outpatient Hypertension Continue baseline treatment Follow blood pressures Adjust treatments as needed DVT Prophylaxis Lovenox (1) Osteomyelitis Qualifiers: Osteomyelitis type: unspecified type Osteomyelitis location: hand Laterality : left Qualified Code(s): M86.9 - Osteomyelitis, unspecified
[2018-07-28] MEDS ORDERED: MethylPREDNISolone Sod Succinate Inj 40 MG/ML Vial IV.PUSH ONE (14:00)
[2018-07-28] MEDS: HYDROmorphone PF Inj 2 MG/ML Vial IV.PUSH PRN ×3 (14:08→21:40)
[2018-07-28] MEDS: MethylPREDNISolone Sod Succinate Inj 40 MG/ML Vial IV.PUSH SCH (20:20)
[2018-07-29] MEDS: HYDROmorphone PF Inj 2 MG/ML Vial IV.PUSH PRN ×6 (01:48→22:28)
[2018-07-29] MEDS: Vancomycin Inj 1,750 MG in Sodium Chlor 0.9% Inj 500 ML IV.SIG SCH ×2 (01:55→13:20)
[2018-07-29] MEDS: Insulin NovoLOG Aspart Correctional Sugar Inj SQ SCH ×5 (03:29→20:28)
[2018-07-29] MEDS: Piperacil/Tazo 3.375 GM Premix 50 ML IV.SIG SCH ×4 (03:30→21:42)
[2018-07-29] MEDS: Baclofen 10 MG Tablet PO SCH ×3 (05:37→21:42)
[2018-07-29 07:34] LABS: Baso % (Auto) 0.1 % (0.0-2.0); Hemoglobin 9.6 gm/dL (13.0-17.0); Lymph # (Auto) 0.5 th/mm3 (1.0-4.8); Lymph % (Auto) 8.3 % (9.0-44.0); Mean Corpuscular HGB Conc 33.1 % (32.0-36.0); Mean Corpuscular Hemoglobin 26.5 pg (27.0-34.0); Mean Corpuscular Volume 80.2 fL (80.0-100.0); Mean Platelet Volume 6.7 fL (7.0-11.0); Mono # (Auto) 0.2 th/mm3 (0.0-0.9); Mono % (Auto) 3.9 % (0.0-8.0); Neut # (Auto) 5.4 th/mm3 (1.8-7.7); Neut % (Auto) 87.7 % (16.0-70.0); Platelet Count 488 th/mm3 (150-450); Red Blood Count 3.61 mil/mm3 (4.50-5.90); Red Cell Distribution Width 15.6 % (11.6-17.2); White Blood Count 6.1 th/mm3 (4.0-11.0)
[2018-07-29 07:48] LABS: Albumin 2.1 g/dL (3.4-5.0); Anion Gap 8 meq/L (5-15); Aspartate Aminotransferase 8 U/L (15-37); Blood Urea Nitrogen 16 mg/dL (7-18); Calcium 8.6 mg/dL (8.5-10.1); Carbon Dioxide 24.6 meq/L (21.0-32.0); Chloride 101 meq/L (98-107); Glomerular Filtration Rate Greater Than 89 mL/min (>89); Glucose,Random 375 mg/dL (74-106); Potassium 3.9 meq/L (3.5-5.1); Sodium 134 meq/L (136-145)
[2018-07-29 07:55] LABS: Alanine Aminotransferase 10 U/L (12-78); Alkaline Phosphatase 127 U/L (45-117)
[2018-07-29] MEDS: Enoxaparin Inj 40 MG/0.4 ML Syringe SQ SCH (09:37)
[2018-07-29] MEDS: Insulin Detemir Inj 1,000 UNIT/10 ML Vial SQ SCH ×2 (09:37→20:29)
[2018-07-29] MEDS: Ramipril 2.5 MG Capsule PO SCH (09:38)
[2018-07-29] MEDS: Senna/Docusate Sodium 8.6/50 MG Tablet PO SCH ×2 (09:38→20:30)
[2018-07-29] MEDS: Furosemide 20 MG Tablet PO SCH ×2 (09:39→20:30)
[2018-07-29] MEDS: Collagenase Oint 30 GM Tube TOPICAL SCH (09:39)
[2018-07-29] MEDS: dilTIAZem CD 240 MG Capsule PO SCH (09:39)
[2018-07-29] MEDS: MethylPREDNISolone Sod Succinate Inj 40 MG/ML Vial IV.PUSH SCH ×2 (09:40→20:31)
--- NOTE | 2018-07-29 11:46 | P.PNIM ---
Subjective Interval history: Blood sugars elevated this morning. Adjustments in insulin needed. Insulins are adjusted. Patient has no new complaints. Pain control. Physical Exam Vital signs: Vital Signs 07/28/18 12:00 07/28/18 16:00 07/28/18 20:37 Temperature 99.0 F 98.9 F 98.6 F Pulse Rate 70 75 68 Respiratory Rate 18 18 17 Blood Pressure 116/60 117/68 121/64 Pulse Oximetry 98 99 96 07/29/18 00:32 07/29/18 08:00 Temperature 97.7 F 97.0 F L Pulse Rate 68 69 Respiratory Rate 17 18 Blood Pressure 137/72 157/77 H Pulse Oximetry 99 98 Intake & Output 07/28/18 07/29/18 07/29/18 18:59 06:59 18:59 Intake Total 1135.0 / 1135.0 830 / 830 617.5 / 617.5 Output Total 700 / 700 2400 / 2400 Balance 435.0 / 435.0 -1570 / -1570 617.5 / 617.5 Weight 96 kg Intake: IV 1135.0 / 1135.0 50 / 50 617.5 / 617.5 Zosyn 3.375 GM Premix 50 ML @ 100 / 100 50 / 50 100 / 100 100 mls/hr IV.SIG Q6H ROBBIE Rx#: [id number] Vancomycin Inj 1,750 MG In NS 1035.0 / 1035.0 517.5 / 517.5 Inj 500 ML @ 257.5 mls/hr IV. SIG Q12H ROBBIE Rx#:[id number] Oral 780 / 780 Output: Urine 700 / 700 2400 / 2400 Other: Date of Last Bowel Movement 07/28/18 07/27/18 Narrative: GENERAL: NAD, A&Ox3 HEAD: Normocephalic. NECK: Supple, trachea midline. No lymphadenopathy. EYES: No scleral icterus. No injection or drainage. CARDIOVASCULAR: Regular rate and rhythm without murmurs, gallops, or rubs. RESPIRATORY: Breath sounds equal bilaterally. No accessory muscle use. GASTROINTESTINAL: Abdomen soft, non-tender, nondistended. MUSCULOSKELETAL: No cyanosis, or edema. Increased range of motion at back secondary to discitis. Bandages at left hand and right foot. Decreased range of motion right shoulder. SKIN: Warm and dry. NEURO: No focal neurological deficits. Results - Labs CBC & Chem 7: 07/29/18 06:32 07/29/18 06:32 Laboratory Results - last 24 hr 07/28/18 07/28/18 07/28/18 07:54 16:24 21:45 WBC RBC Hgb Hct MCV MCH MCHC RDW Plt Count MPV Neut % (Auto) Lymph % (Auto) [place] % (Auto) Eos % (Auto) Baso % (Auto) Neut # (Auto) Lymph # (Auto) [place] # (Auto) Eos # (Auto) Baso # (Auto) WBC Differential Differential Comment Sodium Potassium Chloride Carbon Dioxide Anion Gap BUN Creatinine Estimated GFR POC Glucose 159 H 240 H 378 H Random Glucose Calcium Total Bilirubin AST ALT Alkaline Phosphatase Total Protein Albumin 07/29/18 07/29/18 06:32 06:32 WBC 6.1 RBC 3.61 L Hgb 9.6 L Hct 29.0 L MCV 80.2 MCH 26.5 L MCHC 33.1 RDW 15.6 Plt Count 488 H D MPV 6.7 L Neut % (Auto) 87.7 H Lymph % (Auto) 8.3 L [place] % (Auto) 3.9 Eos % (Auto) 0.0 Baso % (Auto) 0.1 Neut # (Auto) 5.4 Lymph # (Auto) 0.5 L [place] # (Auto) 0.2 Eos # (Auto) 0.0 Baso # (Auto) 0.0 WBC Differential . Differential Comment Auto diff final Sodium 134 L Potassium 3.9 Chloride 101 Carbon Dioxide 24.6 Anion Gap 8 BUN 16 Creatinine 0.61 Estimated GFR Greater than 89 POC Glucose Random Glucose 375 H Calcium 8.6 Total Bilirubin 0.2 AST 8 L ALT 10 L Alkaline Phosphatase 127 H Total Protein 8.0 Albumin 2.1 L Microbiology 07/21/18 08:41 Tissue - Hand Fungal Smear - Final No fungal elements seen 07/21/18 08:41 Tissue - Hand Fungal Culture - Preliminary No growth in 1 week 07/21/18 08:41 Tissue - Hand Acid Fast Bacilli Smear - Final No acid fast bacilli seen 07/21/18 08:41 Tissue - Hand Mycobacterial Culture - Preliminary No growth in 1 week Assessment and Plan - Assessment (1) Osteomyelitis Code(s): M86.9 - Osteomyelitis, unspecified Status: Acute (2) Abscess of hand, left Code(s): L02.512 - Cutaneous abscess of left hand Status: Acute - Plan 58-year-old male admitted secondary to left hand abscess and severe back pain Levemir increased. Increased blood sugars likely related to steroids. Steroids will be given for short duration and then discontinue. NPH provided for additional coverage today. Right shoulder pain Risk for osteomyelitis or abscess formation Consider repeat imaging and/or aspiration of joint for worsening L4/L5 discitis Severe back pain Severe spinal stenosis Potential etiology of infection Neurosurgery consulted ID recommends biopsy Hand cellulitis Flexor tenosynovitis Osteomyelitis Continue vancomycin and Zosyn And Surgeon following Follow cultures Right foot osteomyelitis ID following Atrial fibrillation Patient is status post ablation for this Eliquis on hold secondary to procedures and potential future procedures Diabetes mellitus type 2 Follow blood sugars Insulin sliding scale Diabetic diet Hyperlipidemia Continue present treatment Follow as an outpatient Hypertension Continue baseline treatment Follow blood pressures Adjust treatments as needed DVT Prophylaxis Lovenox (1) Osteomyelitis Qualifiers: Osteomyelitis type: unspecified type Osteomyelitis location: hand Laterality : left Qualified Code(s): M86.9 - Osteomyelitis, unspecified
[2018-07-30] MEDS: Piperacil/Tazo 3.375 GM Premix 50 ML IV.SIG SCH ×4 (02:01→20:47)
[2018-07-30] MEDS: Vancomycin Inj 1,750 MG in Sodium Chlor 0.9% Inj 500 ML IV.SIG SCH ×2 (02:01→14:37)
[2018-07-30] MEDS: Insulin NovoLOG Aspart Correctional Sugar Inj SQ SCH ×5 (02:29→20:43)
[2018-07-30] MEDS: HYDROmorphone PF Inj 2 MG/ML Vial IV.PUSH PRN ×5 (02:37→21:21)
[2018-07-30] MEDS: Baclofen 10 MG Tablet PO SCH ×4 (05:21→22:00)
[2018-07-30] MEDS: Enoxaparin Inj 40 MG/0.4 ML Syringe SQ SCH (09:03)
[2018-07-30] MEDS: Senna/Docusate Sodium 8.6/50 MG Tablet PO SCH ×2 (09:03→20:46)
[2018-07-30] MEDS: Ramipril 2.5 MG Capsule PO SCH (09:04)
[2018-07-30] MEDS: Furosemide 20 MG Tablet PO SCH ×2 (09:04→20:47)
[2018-07-30] MEDS: MethylPREDNISolone Sod Succinate Inj 40 MG/ML Vial IV.PUSH SCH ×2 (09:04→20:45)
[2018-07-30] MEDS: Collagenase Oint 30 GM Tube TOPICAL SCH (09:05)
[2018-07-30] MEDS: Insulin Detemir Inj 1,000 UNIT/10 ML Vial SQ SCH ×2 (09:05→20:44)
[2018-07-30] MEDS: dilTIAZem CD 240 MG Capsule PO SCH (09:19)
[2018-07-30] MEDS ORDERED: Pharmacy Ordered Lab Info OTHER SCH (13:45)
--- NOTE | 2018-07-30 15:16 | P.PNIM ---
Subjective Interval history: Improvement in inflammation. Now ambulating. Awaiting cultures. Physical Exam Vital signs: Vital Signs 07/29/18 16:00 07/29/18 21:00 07/30/18 02:14 Temperature 97.4 F L 97.1 F L 97.6 F Pulse Rate 74 72 73 Respiratory Rate 19 18 19 Blood Pressure 144/79 H 142/72 H 147/73 H Pulse Oximetry 99 99 97 07/30/18 08:00 Temperature 97.4 F L Pulse Rate 70 Respiratory Rate 18 Blood Pressure 157/83 H Pulse Oximetry 99 Intake & Output 07/29/18 07/30/18 07/30/18 18:59 06:59 18:59 Intake Total 2065.0 / 2065.0 2050 / 2050 617.5 / 617.5 Output Total 1999 1600 / 1600 Balance 65.0 / 65.0 450 / 450 617.5 / 617.5 Weight 96 kg Intake: IV 1185.0 / 1185.0 50 / 50 617.5 / 617.5 Zosyn 3.375 GM Premix 50 ML @ 150 / 150 50 / 50 100 / 100 100 mls/hr IV.SIG Q6H ROBBIE Rx#: [id number] Vancomycin Inj 1,750 MG In NS 1035.0 / 1035.0 517.5 / 517.5 Inj 500 ML @ 257.5 mls/hr IV. SIG Q12H ROBBIE Rx#:[id number] Oral 880 / 880 1999 Output: Urine 1999 1600 / 1600 Other: Date of Last Bowel Movement 07/28/18 07/28/18 # Bowel Movements 1 Narrative: GENERAL: NAD, A&Ox3 HEAD: Normocephalic. NECK: Supple, trachea midline. No lymphadenopathy. EYES: No scleral icterus. No injection or drainage. CARDIOVASCULAR: Regular rate and rhythm without murmurs, gallops, or rubs. RESPIRATORY: Breath sounds equal bilaterally. No accessory muscle use. GASTROINTESTINAL: Abdomen soft, non-tender, nondistended. MUSCULOSKELETAL: No cyanosis, or edema. Increased range of motion at back secondary to discitis. Bandages at left hand and right foot. Decreased range of motion right shoulder. SKIN: Warm and dry. NEURO: No focal neurological deficits. Results - Labs CBC & Chem 7: 07/29/18 06:32 07/29/18 06:32 Laboratory Results - last 24 hr 07/29/18 07/30/18 07/30/18 20:18 02:23 07:52 POC Glucose 335 H 349 H 294 H 07/30/18 12:00 POC Glucose 275 H Assessment and Plan - Assessment (1) Osteomyelitis Code(s): M86.9 - Osteomyelitis, unspecified Status: Acute (2) Abscess of hand, left Code(s): L02.512 - Cutaneous abscess of left hand Status: Acute - Plan 58-year-old male admitted secondary to left hand abscess and severe back pain Levemir increased again today for blood sugar control (elevated with steroids). Follow inflammation clinically. Follow blood sugars. Right shoulder pain Risk for osteomyelitis or abscess formation Consider repeat imaging and/or aspiration of joint for worsening L4/L5 discitis Severe back pain Severe spinal stenosis Potential etiology of infection Neurosurgery consulted ID recommends biopsy Hand cellulitis Flexor tenosynovitis Osteomyelitis Continue vancomycin and Zosyn And Surgeon following Follow cultures Right foot osteomyelitis ID following Atrial fibrillation Patient is status post ablation for this Eliquis on hold secondary to procedures and potential future procedures Diabetes mellitus type 2 Follow blood sugars Insulin sliding scale Diabetic diet Hyperlipidemia Continue present treatment Follow as an outpatient Hypertension Continue baseline treatment Follow blood pressures Adjust treatments as needed DVT Prophylaxis Lovenox (1) Osteomyelitis Qualifiers: Osteomyelitis type: unspecified type Osteomyelitis location: hand Laterality : left Qualified Code(s): M86.9 - Osteomyelitis, unspecified
--- NOTE | 2018-07-30 15:50 | P.PNID ---
Subjective Remarks: Patient notes less pain in his left hand. Post debridement. The wound culture has AFB positive [facility]. The left hand wound is dry. Complains of back pain. MRI shows L4-L5 discitis. Afebrile. This is a 58-year-old white male who presented to the emergency department, yesterday with complaints of back pain. The patient notes that he twisted his back while getting out of his motor vehicle and he also noted pain in his left hand. He had been experiencing pain and discomfort in the left ankle for a couple of weeks and he was supposed to see a hand doctor to have an assessment for surgery on the left hand, but he had some preop evaluation to be done and there was delay in getting that performed. He states that his left hand became painful and swollen, and there was redness extending up his wrist and arm, up to the elbow. He was admitted and started on IV antibiotics. An x-ray of the hand was performed and it showed moderate soft tissue swelling about the fourth digit adjacent to the proximal phalanx and linear densities along the medial and lateral cortex of the fourth proximal phalanx suggesting periosteal reaction. Past Medical History: PAST MEDICAL HISTORY: Gastroesophageal reflux disease, toe amputations, diabetes mellitus, hyperlipidemia, hypertension, atrial fibrillation, osteomyelitis involving the right foot. Allergies/Adverse Reactions: Allergies *MDRO Multi-Drug Resistant Organism Adverse Reaction (Unknown, Uncoded 06/16/17 16:34) MRSA MRSA (foot wound) - 02/12/15, 11/12/16, 03/29/17; (toe) - 03/2016 Objective Vital Signs 07/29/18 16:00 07/29/18 21:00 07/30/18 02:14 Temperature 97.4 F L 97.1 F L 97.6 F Pulse Rate 74 72 73 Respiratory Rate 19 18 19 Blood Pressure 144/79 H 142/72 H 147/73 H Pulse Oximetry 99 99 97 07/30/18 08:00 Temperature 97.4 F L Pulse Rate 70 Respiratory Rate 18 Blood Pressure 157/83 H Pulse Oximetry 99 Intake & Output 07/29/18 07/30/18 07/30/18 18:59 06:59 18:59 Intake Total 2065.0 / 2065.0 2049 617.5 / 617.5 Output Total 1999 1600 / 1600 Balance 65.0 / 65.0 450 / 450 617.5 / 617.5 Weight 96 kg Intake: IV 1185.0 / 1185.0 50 / 50 617.5 / 617.5 Zosyn 3.375 GM Premix 50 ML @ 150 / 150 50 / 50 100 / 100 100 mls/hr IV.SIG Q6H ROBBIE Rx#: [id number] Vancomycin Inj 1,750 MG In NS 1035.0 / 1035.0 517.5 / 517.5 Inj 500 ML @ 257.5 mls/hr IV. SIG Q12H ROBBIE Rx#:[id number] Oral 880 / 880 1999 Output: Urine 1999 1600 / 1600 Other: Date of Last Bowel Movement 07/28/18 07/28/18 # Bowel Movements 1 07/21/18 08:41 Tissue - Hand Fungal Smear - Final No fungal elements seen 07/21/18 08:41 Tissue - Hand Fungal Culture - Preliminary No growth in 1 week 07/21/18 08:41 Tissue - Hand Acid Fast Bacilli Smear - Final No acid fast bacilli seen 07/21/18 08:41 Tissue - Hand Mycobacterial Culture - Preliminary No growth in 1 week Lab - Hematology Results 07/29/18 06:32 WBC 6.1 RBC 3.61 L Hgb 9.6 L Hct 29.0 L MCV 80.2 MCH 26.5 L MCHC 33.1 RDW 15.6 Plt Count 488 H D MPV 6.7 L Neut % (Auto) 87.7 H Lymph % (Auto) 8.3 L [place] % (Auto) 3.9 Eos % (Auto) 0.0 Baso % (Auto) 0.1 Neut # (Auto) 5.4 Lymph # (Auto) 0.5 L [place] # (Auto) 0.2 Eos # (Auto) 0.0 Baso # (Auto) 0.0 WBC Differential . Differential Comment Auto diff final Lab - Chemistry Results 07/28/18 07/28/18 07/29/18 16:24 21:45 06:32 Sodium 134 L Potassium 3.9 Chloride 101 Carbon Dioxide 24.6 Anion Gap 8 BUN 16 Creatinine 0.61 Estimated GFR Greater than 89 POC Glucose 240 H 378 H Random Glucose 375 H Calcium 8.6 Total Bilirubin 0.2 AST 8 L ALT 10 L Alkaline Phosphatase 127 H Total Protein 8.0 Albumin 2.1 L 07/29/18 07/30/18 07/30/18 20:18 02:23 07:52 Sodium Potassium Chloride Carbon Dioxide Anion Gap BUN Creatinine Estimated GFR POC Glucose 335 H 349 H 294 H Random Glucose Calcium Total Bilirubin AST ALT Alkaline Phosphatase Total Protein Albumin 07/30/18 12:00 Sodium Potassium Chloride Carbon Dioxide Anion Gap BUN Creatinine Estimated GFR POC Glucose 275 H Random Glucose Calcium Total Bilirubin AST ALT Alkaline Phosphatase Total Protein Albumin Imaging: ITS Impressions Hand X-Ray 07/18/18 20:57 CONCLUSION: Soft tissues are and mild periosteal reaction the proximal phalanx of the fourth digit. Chest X-Ray 07/22/18 12:33 CONCLUSION: Under aerated with minimal parenchymal changes right base Lumbar Spine X-Ray 07/23/18 00:00 CONCLUSION: Moderate to severe degenerative changes are again seen. Lumbar Spine MRI 07/24/18 00:00 CONCLUSION: 1. Very prominent edema seen throughout the L4 and L5 vertebral bodies and at the disc level. This could be from exuberant degenerative change versus discitis. If this is from discitis, then involvement in the vertebral bodies/ osteomyelitis would need to be suspected. There is severe stenosis at this level. 2. Moderate stenosis at the L2-L3 level caused by disc bulge and facet hypertrophy. 3. Mild disc bulge at the L1-L2 and L5-S1 levels. Shoulder MRI 07/26/18 00:00 CONCLUSION: Cannot exclude septic arthritis and osteomyelitis. Physical Exam: PHYSICAL EXAMINATION: GENERAL: No acute distress. HEENT: Extraocular movements grossly intact. Pupils reactive to light. No icterus. Oropharynx moist mucosa without lesions. NECK: Supple without adenopathy. LUNGS: Clear breath sounds. HEART: Regular S1, S2, without murmurs, rubs or gallops. ABDOMEN: Bowel sounds present, flat, soft, nontender. EXTREMITIES: Left hand is in a surgical dressing. Post debridement. Packing in place. No longer has erythema of the left third finger. SKIN: No diffuse rash. NEUROLOGIC: No gross focal finding. PSYCHIATRIC: Calm and cooperative. Assessment and Plan - Plan IMPRESSION: 1. Cellulitis of the left forefinger and left hand. Improved 2. Tenosynovitis of the left hand. Post debridement. Culture has AFB. [facility]. Patient noted redness of the hand waxing and waning for the last couple of months. 3. Discitis on of lumbar spine on MRI. SED rate elevated. RECOMMENDATIONS: 1. Continue vancomycin. 2. Continue piperacillin/tazobactam. 3. Continue Biaxin while awaiting AFB ID. Monitor culture. 4. Discussed with Radiology about doing disc aspirate/biopsy. Discussed with Dr Mcgrath. vetebral disc biopsy to be ordered. 5. Monitor culture of disc aspirate or biopsy when performed. 6. Monitor temperature.
[2018-07-30 16:12] LABS: Blood Urea Nitrogen 26 mg/dL (7-18); Glomerular Filtration Rate Greater Than 89 mL/min (>89)
[2018-07-30 16:13] LABS: Vancomycin,Trough 22.6 mcg/mL (5.0-10.0)
--- NOTE | 2018-07-30 17:03 | P.PN ---
Subjective Interval history: no pain left hand no numbness complaint with range of motion Physical Exam Vital signs: Vital Signs 07/29/18 21:00 07/30/18 02:14 07/30/18 08:00 Temperature 97.1 F L 97.6 F 97.4 F L Pulse Rate 72 73 70 Respiratory Rate 18 19 18 Blood Pressure 142/72 H 147/73 H 157/83 H Pulse Oximetry 99 97 99 Intake & Output 07/29/18 07/30/18 07/30/18 18:59 06:59 18:59 Intake Total 2065.0 / 2065.0 2049 / 2049 617.5 / 617.5 Output Total 1999 1600 / 1600 Balance 65.0 / 65.0 450 / 450 617.5 / 617.5 Weight 96 kg Intake: IV 1185.0 / 1185.0 50 / 50 617.5 / 617.5 Zosyn 3.375 GM Premix 50 ML @ 150 / 150 50 / 50 100 / 100 100 mls/hr IV.SIG Q6H ROBBIE Rx#: [id number] Vancomycin Inj 1,750 MG In NS 1035.0 / 1035.0 517.5 / 517.5 Inj 500 ML @ 257.5 mls/hr IV. SIG Q12H ROBBIE Rx#:[id number] Oral 880 / 880 1999 Output: Urine 1999 1600 / 1600 Other: Date of Last Bowel Movement 07/28/18 07/28/18 # Bowel Movements 1 Narrative: exam left hand: dressing in place no surrounding skin maceration no drainage sutures in place able to make a better fist flexion deformity of the ring finger at the PIP joint noted intact distal circulation Results - Labs CBC & Chem 7: 07/29/18 06:32 07/30/18 15:18 Laboratory Results - last 24 hr 07/29/18 07/30/18 07/30/18 20:18 02:23 07:52 BUN Creatinine Estimated GFR POC Glucose 335 H 349 H 294 H Vancomycin Trough 07/30/18 07/30/18 12:00 15:18 BUN 26 H Creatinine 0.77 Estimated GFR Greater than 89 POC Glucose 275 H Vancomycin Trough 22.6 H Assessment and Plan - Assessment (1) Suppurative tenosynovitis of flexor tendon of left hand Code(s): M65.142 - Other infective (teno)synovitis, left hand Status: Acute - Plan dry dressing applied range of motion exercises by occupational therapy appreciate ID recommendations, follow up AFB continue antibiotics based on ID recommendations daily dressing changes suture removal in one week hand surgery will follow.
[2018-07-31] MEDS: HYDROmorphone PF Inj 2 MG/ML Vial IV.PUSH PRN ×6 (01:32→23:28)
[2018-07-31] MEDS: Vancomycin Inj 1,750 MG in Sodium Chlor 0.9% Inj 500 ML IV.SIG SCH ×2 (01:33→15:12)
[2018-07-31] MEDS ORDERED: Pharmacy Ordered Lab Info OTHER ONE (01:45)
[2018-07-31] MEDS: Piperacil/Tazo 3.375 GM Premix 50 ML IV.SIG SCH ×4 (04:24→22:46)
[2018-07-31] MEDS: Insulin NovoLOG Aspart Correctional Sugar Inj SQ SCH ×5 (04:36→22:45)
[2018-07-31] MEDS: Baclofen 10 MG Tablet PO SCH ×3 (05:42→22:47)
[2018-07-31] MEDS: Senna/Docusate Sodium 8.6/50 MG Tablet PO SCH ×2 (09:03→22:45)
[2018-07-31] MEDS: dilTIAZem CD 240 MG Capsule PO SCH (09:03)
[2018-07-31] MEDS: MethylPREDNISolone Sod Succinate Inj 40 MG/ML Vial IV.PUSH SCH ×2 (09:03→22:46)
[2018-07-31] MEDS: Furosemide 20 MG Tablet PO SCH ×2 (09:03→22:43)
[2018-07-31] MEDS: Enoxaparin Inj 40 MG/0.4 ML Syringe SQ SCH (09:05)
[2018-07-31] MEDS: Insulin Detemir Inj 1,000 UNIT/10 ML Vial SQ SCH ×2 (09:07→22:44)
[2018-07-31] MEDS: Ramipril 2.5 MG Capsule PO SCH (09:07)
[2018-07-31] MEDS: Collagenase Oint 30 GM Tube TOPICAL SCH (09:09)
[2018-07-31 10:16] LABS: Activated Partial Thrombo Time 24.9 sec (24.3-30.1); INR 1.1 Ratio
[2018-07-31 10:27] LABS: Glomerular Filtration Rate Greater Than 89 mL/min (>89)
[2018-07-31] MEDS ORDERED: fentaNYL Citrate Inj 250 MCG/5 ML Ampul ONE (12:59)
[2018-07-31] MEDS ORDERED: Sodium Chlor 0.9% Inj 10 ML ONE (13:22)
--- NOTE | 2018-07-31 13:29 | P.RAD ---
Post Procedure Progress Note - Procedure Information Procedure Date: 07/31/18 Supervising Radiologist: Jeromy Carranza MD Estimated blood loss (mL): 0 Anesthesia: Conscious Sedation - Plan of Activity Patient to Unit: [facility] Patient Condition: Good See PACS Report for procedural detail/treatment.
[2018-07-31] MEDS ORDERED: Pharmacy Ordered Lab Info OTHER SCH ×2 (13:45)
--- NOTE | 2018-07-31 15:39 | IR ---
EXAM DATE: 07/31/2018 2:40 PM EDT AGE/SEX: 58 years / Male INDICATIONS: Patient presents with chronic lower back pain in need of aspiration biopsy. CLINICAL DATA: This is the patient's initial encounter. Patient reports that signs and symptoms have been present for > 1 year and indicates a pain score of 4/10. MEDICAL/SURGICAL HISTORY: Gastroesophageal reflux disease. Hypertension. Osteomyelitis. Diab etes mellitus, Hyperlipidemia, A-Fib. . Toe amputations. COMPARISON: No prior exams available for comparison. FLUORO TIME (min): 1.45 IMAGE SERIES: 1 SEDATION TIME (min): 30 MEDICATION(S): 4mg midazolam (Versed) IV 200mcg fentanyl (Sublimaze) IV DEVICE(s): 22 gauge needle SPECIMEN(S): Core specimen(s) obtained and submitted to laboratory for pathologic evaluation. . . PROCEDURE: 1. Fluoroscopically guided needle biopsy. 2. Conscious sedation with continuous EKG and Oximetry monitoring. The risks, benefits and alternatives to the procedure were explained and verbal and written consent w as obtained. The site was prepped in sterile fashion. Full sterile technique was used, including cap, mask, steri le gloves and gown and a large sterile sheet. Hand hygiene and 2% chlorhexidine and/or betadine/alco hol prep was utilized per protocol for cutaneous antisepsis. The skin and subcutaneous tissues were infiltrated with local anesthetic solution. With fluoroscopic guidance a 22-gauge spinal needle was advanced into the L4-5 disc space. Multiple a spirations yielded no significant aspirate. Therefore, the region was irrigated with approximately 1 cc of nonbacteriostatic saline which was subsequently aspirated and submitted for Gram stain and C&S. Conscious sedation was performed with the prescribed dosages and duration as above in the presence of an independent trained radiology nurse to assist in the monitoring of the patient. EKG and oximetry remained stable throughout the procedure. CONCLUSION: 1. Uncomplicated fluoroscopic guided aspiration of L4-5 disc space, as above. Electronically signed by: Jeromy Carranza MD 07/31/2018 3:38 PM EDT
--- NOTE | 2018-07-31 17:21 | P.PNIM ---
Subjective Interval history: Patient is status post biopsy of discitis today. No new complaints. Steroids have benefited the patient's pain. Autoimmune screen for lupus and rheumatoid factor are negative. Physical Exam Vital signs: Vital Signs 07/30/18 20:00 07/31/18 00:00 07/31/18 08:00 Temperature 98.2 F 98.1 F 97.1 F L Pulse Rate 67 62 67 Respiratory Rate 21 20 18 Blood Pressure 133/74 140/67 175/80 H Pulse Oximetry 99 98 98 07/31/18 12:00 07/31/18 13:35 Temperature 97.5 F L 97.7 F Pulse Rate 66 67 Respiratory Rate 18 20 Blood Pressure 182/88 H 170/90 H Pulse Oximetry 99 95 Intake & Output 07/30/18 07/31/18 07/31/18 18:59 06:59 18:59 Intake Total 2947.5 / 2947.5 2617.5 / 2617.5 100 / 100 Output Total 3000 / 3000 500 / 500 Balance -52.5 / -52.5 2617.5 / 2617.5 -400 / -400 Weight 100.3 kg Intake: IV 1667.5 / 1667.5 617.5 / 617.5 100 / 100 Zosyn 3.375 GM Premix 50 ML @ 150 / 150 100 / 100 100 / 100 100 mls/hr IV.SIG Q6H ROBBIE Rx#: [id number] Vancomycin Inj 1,750 MG In NS 1517.5 / 1517.5 517.5 / 517.5 Inj 500 ML @ 257.5 mls/hr IV. SIG Q12H ROBBIE Rx#:[id number] Oral 1280 / 1280 2000 / 2000 Output: Urine 3000 / 3000 500 / 500 Other: # Voids 6 Date of Last Bowel Movement 07/28/18 # Bowel Movements 1 Narrative: GENERAL: NAD, A&Ox3 HEAD: Normocephalic. NECK: Supple, trachea midline. No lymphadenopathy. EYES: No scleral icterus. No injection or drainage. CARDIOVASCULAR: Regular rate and rhythm without murmurs, gallops, or rubs. RESPIRATORY: Breath sounds equal bilaterally. No accessory muscle use. GASTROINTESTINAL: Abdomen soft, non-tender, nondistended. MUSCULOSKELETAL: No cyanosis, or edema. Increased range of motion at back secondary to discitis. Bandages at left hand and right foot. Decreased range of motion right shoulder. SKIN: Warm and dry. NEURO: No focal neurological deficits. 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 Uncomplicated fluoroscopic guided aspiration of L4-5 disc space, as above. Assessment and Plan - Assessment (1) Osteomyelitis Code(s): M86.9 - Osteomyelitis, unspecified Status: Acute (2) Abscess of hand, left Code(s): L02.512 - Cutaneous abscess of left hand Status: Acute - Plan 58-year-old male admitted secondary to left hand abscess and severe back pain Steroids to discontinue tonight and Levemir will be returned back to baseline of 20 units twice daily tomorrow morning. Outpatient cultures remain pending. New Culture of discitis is pending. Right shoulder pain Risk for osteomyelitis or abscess formation Consider repeat imaging and/or aspiration of joint for worsening L4/L5 discitis Severe back pain Severe spinal stenosis Potential etiology of infection Neurosurgery consulted ID recommends biopsy Hand cellulitis Flexor tenosynovitis Osteomyelitis Continue vancomycin and Zosyn And Surgeon following Follow cultures Right foot osteomyelitis ID following Atrial fibrillation Patient is status post ablation for this Eliquis on hold secondary to procedures and potential future procedures Diabetes mellitus type 2 Follow blood sugars Insulin sliding scale Diabetic diet Hyperlipidemia Continue present treatment Follow as an outpatient Hypertension Continue baseline treatment Follow blood pressures Adjust treatments as needed DVT Prophylaxis Lovenox (1) Osteomyelitis Qualifiers: Osteomyelitis type: unspecified type Osteomyelitis location: hand Laterality : left Qualified Code(s): M86.9 - Osteomyelitis, unspecified
--- NOTE | 2018-07-31 18:30 | P.DIET ---
Nutritional Evaluation Type of nutrition evaluation: follow-up Screening comments: Pt request to speak w/the Dietitian Subjective Subjective Comments: Pt says he is using the Ricardo bid and drinking the Glucerna Shakes TID. Brought forward from previous note: Pt request for Ricardo. Pt reports that his right foot has been healing by taking Ricardo. Pt has his own supply of Ricardo packets in a plastic bag and says he would like to receive Ricardo here so he does not have to use his own personal supply. Objective - Diagnosis Osteomyelitis - Objective [place] body weight: 100 kg % IBW: 91 Body Weight Used for Calculations: Actual (90.7 kg(200-lb)) Energy Needs - Lower Range (kCal/kg): 22 Energy Needs - Upper Range (kCal/kg): 27 Lower Limit kCal/kg (kCals): 1,995 Upper Limit kCal/kg (kCals): 2,449 Lower Limit Protein Factor (Grams per Kg): 1.1 Upper Limit Protein Factor (Grams per Kg): 1.4 Lower Protein Needs (Protein): 100 Upper Protein Needs (Protein): 127 Fluid Factor (ml/kg): 27 Estimated Fluid Needs (ml): 2,449 Dietitian Reviewed in Medical Record: Current diet, Curent medications, Intake & Output, Labs, Medical history, Wound/DTI Diet Order: 1800 Oral Diet Intake Amount: Good 75-90% Objective Comments: PMH: HTN, hyperlipidemia, GERD, DM, AFib s/p ablation, Osteomyelitis POC Glucose 294, 404 +1BM Feeding - Current PO Supplement Current Supplement: Glucerna Shake Current Frequency of Supplement: Three times a day Current kCals Provided by Supplement: 220 Current Protein Provided by Supplement: 10 Supplement Comments: Ricardo 1-pkt BID Assessment Assessment: Pt continues at nutritional risk r/t diagnosis and recent reported unintentional wt loss. Rec diet as Heart Healthy . Continue Ricardo 1-pkt bid to aid in wound healing. Continue Glucerna Shakes TID. Labs reviewed- monitor glucose. Wt changes noted. Dietitian following. Recommendations: 1. Rec diet as Heart Healthy 2. Continue Ricardo 1-pkt bid to aid in wound healing 3. Continue Glucerna Shakes TID 4. Dietitian following Dietitian to Monitor: Lab values, Glucose level, Supplement acceptance, Intake & Output, Weight change, PO Intake, Wound/skin status, Medical course
[2018-08-01] MEDS: Vancomycin Inj 1,750 MG in Sodium Chlor 0.9% Inj 500 ML IV.SIG SCH ×2 (02:15→14:02)
[2018-08-01] MEDS: Insulin NovoLOG Aspart Correctional Sugar Inj SQ SCH ×6 (02:32→22:00)
[2018-08-01] MEDS: HYDROmorphone PF Inj 2 MG/ML Vial IV.PUSH PRN ×6 (03:26→23:10)
[2018-08-01] MEDS: Piperacil/Tazo 3.375 GM Premix 50 ML IV.SIG SCH ×4 (04:56→23:08)
[2018-08-01] MEDS: Baclofen 10 MG Tablet PO SCH ×3 (06:00→21:59)
[2018-08-01] MEDS ORDERED: Insulin Detemir Inj 1,000 UNIT/10 ML Vial SQ SCH (07:00)
[2018-08-01 07:28] LABS: Baso % (Auto) 0.1 % (0.0-2.0); Hematocrit 30.6 % (39.0-51.0); Hemoglobin 10.2 gm/dL (13.0-17.0); Lymph # (Auto) 0.9 th/mm3 (1.0-4.8); Lymph % (Auto) 4.9 % (9.0-44.0); Mean Corpuscular HGB Conc 33.4 % (32.0-36.0); Mean Corpuscular Hemoglobin 26.6 pg (27.0-34.0); Mean Corpuscular Volume 79.5 fL (80.0-100.0); Mean Platelet Volume 6.4 fL (7.0-11.0); Mono # (Auto) 0.9 th/mm3 (0.0-0.9); Mono % (Auto) 5.4 % (0.0-8.0); Neut # (Auto) 15.8 th/mm3 (1.8-7.7); Neut % (Auto) 89.6 % (16.0-70.0); Platelet Count 591 th/mm3 (150-450); Red Blood Count 3.85 mil/mm3 (4.50-5.90); Red Cell Distribution Width 16.1 % (11.6-17.2); White Blood Count 17.6 th/mm3 (4.0-11.0)
[2018-08-01 07:59] LABS: Alanine Aminotransferase 14 U/L (12-78); Albumin 2.7 g/dL (3.4-5.0); Anion Gap 10 meq/L (5-15); Aspartate Aminotransferase 11 U/L (15-37); Blood Urea Nitrogen 37 mg/dL (7-18); Calcium 9.1 mg/dL (8.5-10.1); Carbon Dioxide 28.5 meq/L (21.0-32.0); Chloride 94 meq/L (98-107); Glomerular Filtration Rate Greater Than 89 mL/min (>89); Glucose,Random 347 mg/dL (74-106); Potassium 4.3 meq/L (3.5-5.1); Sodium 132 meq/L (136-145)
[2018-08-01 08:05] LABS: Alkaline Phosphatase 133 U/L (45-117); Total Protein 8.3 g/dL (6.4-8.2)
[2018-08-01] MEDS: Enoxaparin Inj 40 MG/0.4 ML Syringe SQ SCH (09:34)
[2018-08-01] MEDS: dilTIAZem CD 240 MG Capsule PO SCH (09:34)
[2018-08-01] MEDS: Ramipril 2.5 MG Capsule PO SCH (09:35)
[2018-08-01] MEDS: Furosemide 20 MG Tablet PO SCH ×2 (09:35→21:59)
[2018-08-01] MEDS: Collagenase Oint 30 GM Tube TOPICAL SCH (09:35)
[2018-08-01] MEDS: Senna/Docusate Sodium 8.6/50 MG Tablet PO SCH ×2 (09:35→21:59)
--- NOTE | 2018-08-01 14:56 | P.PN ---
Subjective Interval history: Follow-up discitis status post biopsy. Continues to have low back pain. Improved range of motion right shoulder Physical Exam Vital signs: Vital Signs 07/31/18 16:00 07/31/18 20:00 08/01/18 00:00 Temperature 97.6 F 97.1 F L 97.8 F Pulse Rate 61 61 62 Respiratory Rate 16 16 16 Blood Pressure 111/63 137/81 Pulse Oximetry 95 98 08/01/18 08:00 08/01/18 12:00 Temperature 97.6 F 97.7 F Pulse Rate 63 76 Respiratory Rate 18 20 Blood Pressure 185/87 H 144/81 H Pulse Oximetry 98 100 Intake & Output 07/31/18 08/01/18 08/01/18 18:59 06:59 18:59 Intake Total 2517.5 / 2517.5 617.5 / 617.5 50 / 50 Output Total 3000 / 3000 2500 / 2500 Balance -482.5 / -482.5 -1882.5 / -1882.5 50 / 50 Weight 91.5 kg Intake: IV 617.5 / 617.5 617.5 / 617.5 50 / 50 Zosyn 3.375 GM Premix 50 ML @ 100 / 100 100 / 100 50 / 50 100 mls/hr IV.SIG Q6H ROBBIE Rx#: [id number] Vancomycin Inj 1,750 MG In NS 517.5 / 517.5 517.5 / 517.5 Inj 500 ML @ 257.5 mls/hr IV. SIG Q12H ROBBIE Rx#:[id number] Oral 1900 / 1900 Output: Urine 3000 / 3000 2500 / 2500 Other: # Bowel Movements 1 Narrative: GENERAL: NAD, A&Ox3 CARDIOVASCULAR: Regular rate and rhythm without murmurs, gallops, or rubs. RESPIRATORY: Breath sounds equal bilaterally. No accessory muscle use. GASTROINTESTINAL: Abdomen soft, non-tender, nondistended. MUSCULOSKELETAL: No cyanosis, or edema. Bandages at left hand and right foot. Improved range of motion right shoulder. SKIN: Warm and dry. NEURO: No focal neurological deficits. Results - Labs CBC & Chem 7: 08/01/18 06:38 08/01/18 06:38 Laboratory Results - last 24 hr 07/29/18 07/29/18 07/29/18 02:59 07:24 11:10 WBC RBC Hgb Hct MCV MCH MCHC RDW Plt Count MPV Neut % (Auto) Lymph % (Auto) Bibb % (Auto) Eos % (Auto) Baso % (Auto) Neut # (Auto) Lymph # (Auto) Bibb # (Auto) Eos # (Auto) Baso # (Auto) WBC Differential Differential Comment Sodium Potassium Chloride Carbon Dioxide Anion Gap BUN Creatinine Estimated GFR POC Glucose 401 H 352 H 412 H Random Glucose Calcium Total Bilirubin AST ALT Alkaline Phosphatase Total Protein Albumin Vancomycin Trough 07/29/18 07/30/18 07/31/18 15:51 20:40 04:30 WBC RBC Hgb Hct MCV MCH MCHC RDW Plt Count MPV Neut % (Auto) Lymph % (Auto) Bibb % (Auto) Eos % (Auto) Baso % (Auto) Neut # (Auto) Lymph # (Auto) Bibb # (Auto) Eos # (Auto) Baso # (Auto) WBC Differential Differential Comment Sodium Potassium Chloride Carbon Dioxide Anion Gap BUN Creatinine Estimated GFR POC Glucose 344 H 432 H 438 H Random Glucose Calcium Total Bilirubin AST ALT Alkaline Phosphatase Total Protein Albumin Vancomycin Trough 07/31/18 07/31/18 07/31/18 07:39 11:39 17:11 WBC RBC Hgb Hct MCV MCH MCHC RDW Plt Count MPV Neut % (Auto) Lymph % (Auto) Bibb % (Auto) Eos % (Auto) Baso % (Auto) Neut # (Auto) Lymph # (Auto) Bibb # (Auto) Eos # (Auto) Baso # (Auto) WBC Differential Differential Comment Sodium Potassium Chloride Carbon Dioxide Anion Gap BUN 29 H Creatinine Estimated GFR POC Glucose 363 H 242 H Random Glucose Calcium Total Bilirubin AST ALT Alkaline Phosphatase Total Protein Albumin Vancomycin Trough 07/31/18 07/31/18 08/01/18 17:13 20:17 01:30 WBC RBC Hgb Hct MCV MCH MCHC RDW Plt Count MPV Neut % (Auto) Lymph % (Auto) Bibb % (Auto) Eos % (Auto) Baso % (Auto) Neut # (Auto) Lymph # (Auto) Bibb # (Auto) Eos # (Auto) Baso # (Auto) WBC Differential Differential Comment Sodium Potassium Chloride Carbon Dioxide Anion Gap BUN Creatinine Estimated GFR POC Glucose 310 H 413 H Random Glucose Calcium Total Bilirubin AST ALT Alkaline Phosphatase Total Protein Albumin Vancomycin Trough 16.5 H 09/05/1308/01/18 08/01/18 02:27 06:38 06:38 WBC 17.6 H RBC 3.85 L Hgb 10.2 L Hct 30.6 L MCV 79.5 L MCH 26.6 L MCHC 33.4 RDW 16.1 Plt Count 591 H MPV 6.4 L Neut % (Auto) 89.6 H Lymph % (Auto) 4.9 L Bibb % (Auto) 5.4 Eos % (Auto) 0.0 Baso % (Auto) 0.1 Neut # (Auto) 15.8 H Lymph # (Auto) 0.9 L Bibb # (Auto) 0.9 Eos # (Auto) 0.0 Baso # (Auto) 0.0 WBC Differential . Differential Comment Auto diff final Sodium 132 L Potassium 4.3 Chloride 94 L Carbon Dioxide 28.5 Anion Gap 10 BUN 37 H Creatinine 0.68 Estimated GFR Greater than 89 POC Glucose 419 H Random Glucose 347 H Calcium 9.1 Total Bilirubin 0.2 AST 11 L ALT 14 Alkaline Phosphatase 133 H Total Protein 8.3 H Albumin 2.7 L Vancomycin Trough 08/01/18 08/01/18 09:31 14:07 WBC RBC Hgb Hct MCV MCH MCHC RDW Plt Count MPV Neut % (Auto) Lymph % (Auto) Bibb % (Auto) Eos % (Auto) Baso % (Auto) Neut # (Auto) Lymph # (Auto) Bibb # (Auto) Eos # (Auto) Baso # (Auto) WBC Differential Differential Comment Sodium Potassium Chloride Carbon Dioxide Anion Gap BUN Creatinine Estimated GFR POC Glucose 391 H 348 H Random Glucose Calcium Total Bilirubin AST ALT Alkaline Phosphatase Total Protein Albumin Vancomycin Trough Microbiology 07/31/18 13:20 Tissue - Other Gram Stain - Final 07/31/18 13:20 Tissue - Other Wound Culture - Preliminary No growth in 24 hours 07/31/18 13:20 Abscess - Back Fungal Smear - Final No fungal elements seen 07/21/18 08:41 Tissue - Hand Gram Stain - Final 07/21/18 08:41 Tissue - Hand Wound Culture - Final Mycobacterium abscessus - Imaging Impressions ITS Impressions Hand X-Ray 07/18/18 20:57 CONCLUSION: Soft tissues are and mild periosteal reaction the proximal phalanx of the fourth digit. Chest X-Ray 07/22/18 12:33 CONCLUSION: Under aerated with minimal parenchymal changes right base Lumbar Spine X-Ray 07/23/18 00:00 CONCLUSION: Moderate to severe degenerative changes are again seen. Lumbar Spine MRI 07/24/18 00:00 CONCLUSION: 1. Very prominent edema seen throughout the L4 and L5 vertebral bodies and at the disc level. This could be from exuberant degenerative change versus discitis. If this is from discitis, then involvement in the vertebral bodies/ osteomyelitis would need to be suspected. There is severe stenosis at this level. 2. Moderate stenosis at the L2-L3 level caused by disc bulge and facet hypertrophy. 3. Mild disc bulge at the L1-L2 and L5-S1 levels. Shoulder MRI 07/26/18 00:00 CONCLUSION: Cannot exclude septic arthritis and osteomyelitis. Needle Biopsy/Aspiration X-Ray 07/31/18 00:00 CONCLUSION: 1. Uncomplicated fluoroscopic guided aspiration of L4-5 disc space, as above. - Procedures Flexor tenosynovectomy left palm/ring finger, incision and drainage mid palmar space left palm and exploration, periosteal biopsy proximal phalanx left ring finger Biopsy of lumbar discitis Assessment and Plan - Assessment (1) Osteomyelitis Code(s): M86.9 - Osteomyelitis, unspecified Status: Acute (2) Abscess of hand, left Code(s): L02.512 - Cutaneous abscess of left hand Status: Acute - Plan 58-year-old male admitted secondary to left hand abscess and severe back pain Right shoulder pain Risk for osteomyelitis or abscess formation Consider repeat imaging and/or aspiration of joint if worsening per ortho Currently with improved range of motion L4/L5 discitis Severe back pain Severe spinal stenosis Potential etiology of infection Neurosurgery consulted S/p biopsy f/u path Cellulitis of the left forefinger and left hand. Improved Tenosynovitis of the left hand. Post debridement. Culture has AFB sent to [facility] lab for ID. Patient noted redness of the hand waxing and waning for the last couple of months. Discitis on of lumbar spine on MRI. SED rate elevated. RECOMMENDATIONS: 1. Continue vancomycin. 2. Continue piperacillin/tazobactam. 3. Continue Biaxin while awaiting AFB ID. Monitor culture. 4. Monitor culture of disc aspirate or biopsy when performed. Hx Right foot osteomyelitis ID following Atrial fibrillation Patient is status post ablation for this Eliquis on hold secondary to procedures and potential future procedures Diabetes mellitus type 2. Uncontrolled Restart Levemir home dose of 50 units in the morning and 30 units at bedtime Follow blood sugars Insulin sliding scale Diabetic diet Hyperlipidemia Continue present treatment Follow as an outpatient Hypertension Continue baseline treatment Follow blood pressures Adjust treatments as needed DVT Prophylaxis Lovenox (1) Osteomyelitis Qualifiers: Osteomyelitis type: unspecified type Osteomyelitis location: hand Laterality : left Qualified Code(s): M86.9 - Osteomyelitis, unspecified
[2018-08-01] MEDS ORDERED: Vancomycin Consult Pharmacy OTHER PRN (16:03)
[2018-08-01] MEDS: Insulin Detemir Inj 1,000 UNIT/10 ML Vial SQ SCH (22:00)
[2018-08-02] MEDS: HYDROmorphone PF Inj 2 MG/ML Vial IV.PUSH PRN ×5 (03:11→20:15)
[2018-08-02] MEDS: Vancomycin Inj 1,750 MG in Sodium Chlor 0.9% Inj 500 ML IV.SIG SCH ×2 (03:13→14:13)
[2018-08-02] MEDS: Piperacil/Tazo 3.375 GM Premix 50 ML IV.SIG SCH ×4 (03:14→20:32)
[2018-08-02] MEDS: Insulin NovoLOG Aspart Correctional Sugar Inj SQ SCH ×5 (03:24→20:31)
[2018-08-02] MEDS: Baclofen 10 MG Tablet PO SCH ×3 (05:59→21:10)
--- NOTE | 2018-08-02 08:03 | P.PNOP ---
Subjective Interval history: The patient is awake and alert answers questions appropriately. He states his shoulder pain is essentially unchanged. He had a recent disc biopsy. Physical Exam Vital signs: Vital Signs 08/01/18 08:00 08/01/18 12:00 08/01/18 16:00 Temperature 97.6 F 97.7 F 97.5 F L Pulse Rate 63 76 57 L Respiratory Rate 18 20 18 Blood Pressure 185/87 H 144/81 H 122/63 Pulse Oximetry 98 100 100 08/01/18 20:00 08/02/18 00:00 Temperature 97.5 F L 97.9 F Pulse Rate 62 66 Respiratory Rate 20 20 Blood Pressure 131/63 130/74 Pulse Oximetry 100 99 Intake & Output 08/01/18 08/02/18 08/02/18 18:59 06:59 18:59 Intake Total 1350 / 1350 1287.5 / 1287.5 567.5 / 567.5 Output Total 1550 / 1550 600 / 600 Balance -200 / -200 687.5 / 687.5 567.5 / 567.5 Weight 96.6 kg Intake: IV 100 / 100 567.5 / 567.5 567.5 / 567.5 Zosyn 3.375 GM Premix 50 ML @ 100 / 100 50 / 50 50 / 50 100 mls/hr IV.SIG Q6H ROBBIE Rx#: [id number] Vancomycin Inj 1,750 MG In NS 517.5 / 517.5 517.5 / 517.5 Inj 500 ML @ 257.5 mls/hr IV. SIG Q12H ROBBIE Rx#:[id number] Oral 1250 / 1250 720 / 720 Output: Urine 1550 / 1550 600 / 600 Other: # Bowel Movements 3 Narrative: The right shoulder has no soft tissue swelling or effusion. It has improved from his previous evaluation. He has restricted active range of motion primarily in forward flexion. He has painless internal and external rotation actively and passively. Neurologically no focal deficit. Results - Labs CBC & Chem 7: 08/01/18 06:38 08/01/18 06:38 Laboratory Results - last 24 hr 08/01/18 08/01/18 08/01/18 06:38 09:31 14:07 Sodium 132 L Potassium 4.3 Chloride 94 L Carbon Dioxide 28.5 Anion Gap 10 BUN 37 H Creatinine 0.68 Estimated GFR Greater than 89 POC Glucose 391 H 348 H Random Glucose 347 H Calcium 9.1 Total Bilirubin 0.2 AST 11 L ALT 14 Alkaline Phosphatase 133 H Total Protein 8.3 H Albumin 2.7 L 08/01/18 08/01/18 08/02/18 17:20 20:37 03:23 Sodium Potassium Chloride Carbon Dioxide Anion Gap BUN Creatinine Estimated GFR POC Glucose 291 H 180 H 365 H Random Glucose Calcium Total Bilirubin AST ALT Alkaline Phosphatase Total Protein Albumin Microbiology 07/31/18 13:20 Tissue - Other Gram Stain - Final 07/31/18 13:20 Tissue - Other Wound Culture - Preliminary No growth in 24 hours 07/31/18 13:20 Abscess - Back Fungal Smear - Final No fungal elements seen - Procedures Flexor tenosynovectomy left palm/ring finger, incision and drainage mid palmar space left palm and exploration, periosteal biopsy proximal phalanx left ring finger Biopsy of lumbar discitis Assessment and Plan - Problem List (1) Bursitis of shoulder Code(s): M75.50 - Bursitis of unspecified shoulder Status: Acute (2) Osteomyelitis Code(s): M86.9 - Osteomyelitis, unspecified Status: Acute Qualifiers: Osteomyelitis type: unspecified type Osteomyelitis location: hand Laterality: left Qualified Code(s): M86.9 - Osteomyelitis, unspecified - Assessment and Plan The patient's shoulder examination is stable. It does not appear he has any active osteomyelitis or septic arthritis requiring any surgical management. Recommendations are to progress mobilization to tolerance. He may benefit from physical therapy.
[2018-08-02 08:21] LABS: Glomerular Filtration Rate Greater Than 89 mL/min (>89)
[2018-08-02] MEDS: Enoxaparin Inj 40 MG/0.4 ML Syringe SQ SCH (09:45)
[2018-08-02] MEDS: Ramipril 2.5 MG Capsule PO SCH (09:45)
[2018-08-02] MEDS: Furosemide 20 MG Tablet PO SCH ×2 (09:45→20:13)
[2018-08-02] MEDS: Senna/Docusate Sodium 8.6/50 MG Tablet PO SCH ×2 (09:45→20:14)
[2018-08-02] MEDS: dilTIAZem CD 240 MG Capsule PO SCH (09:45)
[2018-08-02] MEDS: Collagenase Oint 30 GM Tube TOPICAL SCH (09:46)
[2018-08-02] MEDS: Insulin Detemir Inj 1,000 UNIT/10 ML Vial SQ SCH ×2 (09:46→20:32)
--- NOTE | 2018-08-02 12:14 | P.PNID ---
Subjective Remarks: Patient notes severe pain in lower back /10. The left hand wound is dry. 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 MRI shows L4-L5 discitis. Afebrile. Wound culture from lumbar spine biopsy no growth in 48 hours. White blood cell count is elevated. This is a 58-year-old white male who presented to the emergency department, yesterday with complaints of back pain. The patient notes that he twisted his back while getting out of his motor vehicle and he also noted pain in his left hand. He had been experiencing pain and discomfort in the left ankle for a couple of weeks and he was supposed to see a hand doctor to have an assessment for surgery on the left hand, but he had some preop evaluation to be done and there was delay in getting that performed. He states that his left hand became painful and swollen, and there was redness extending up his wrist and arm, up to the elbow. He was admitted and started on IV antibiotics. An x-ray of the hand was performed and it showed moderate soft tissue swelling about the fourth digit adjacent to the proximal phalanx and linear densities along the medial and lateral cortex of the fourth proximal phalanx suggesting periosteal reaction. Past Medical History: PAST MEDICAL HISTORY: Gastroesophageal reflux disease, toe amputations, diabetes mellitus, hyperlipidemia, hypertension, atrial fibrillation, osteomyelitis involving the right foot. Allergies/Adverse Reactions: Allergies *MDRO Multi-Drug Resistant Organism Adverse Reaction (Unknown, Uncoded 06/16/17 16:34) MRSA MRSA (foot wound) - 02/12/15, 11/12/16, 03/29/17; (toe) - 03/2016 Objective Vital Signs 08/01/18 16:00 08/01/18 20:00 08/02/18 00:00 Temperature 97.5 F L 97.5 F L 97.9 F Pulse Rate 57 L 62 66 Respiratory Rate 18 20 20 Blood Pressure 122/63 131/63 130/74 Pulse Oximetry 100 100 99 08/02/18 08:00 Temperature 97.5 F L Pulse Rate 73 Respiratory Rate 16 Blood Pressure 121/58 L Pulse Oximetry 99 Intake & Output 08/01/18 08/02/18 08/02/18 18:59 06:59 18:59 Intake Total 1350 / 1350 1287.5 / 1287.5 617.5 / 617.5 Output Total 1550 / 1550 600 / 600 Balance -200 / -200 687.5 / 687.5 617.5 / 617.5 Weight 96.6 kg Intake: IV 100 / 100 567.5 / 567.5 617.5 / 617.5 Zosyn 3.375 GM Premix 50 ML @ 100 / 100 50 / 50 100 / 100 100 mls/hr IV.SIG Q6H ROBBIE Rx#: [id number] Vancomycin Inj 1,750 MG In NS 517.5 / 517.5 517.5 / 517.5 Inj 500 ML @ 257.5 mls/hr IV. SIG Q12H ROBBIE Rx#:[id number] Oral 1250 / 1250 720 / 720 Output: Urine 1550 / 1550 600 / 600 Other: # Bowel Movements 3 07/31/18 13:20 Tissue - Other Gram Stain - Final 07/31/18 13:20 Tissue - Other Wound Culture - Preliminary No growth in 48 hours 07/31/18 13:20 Abscess - Back Fungal Smear - Final No fungal elements seen 07/31/18 13:20 Abscess - Back Fungal Culture - Pending 07/21/18 08:41 Tissue - Hand Gram Stain - Final 07/21/18 08:41 Tissue - Hand Wound Culture - Final Mycobacterium abscessus Lab - Hematology Results 08/01/18 06:38 WBC 17.6 H RBC 3.85 L Hgb 10.2 L Hct 30.6 L MCV 79.5 L MCH 26.6 L MCHC 33.4 RDW 16.1 Plt Count 591 H MPV 6.4 L Neut % (Auto) 89.6 H Lymph % (Auto) 4.9 L [place] % (Auto) 5.4 Eos % (Auto) 0.0 Baso % (Auto) 0.1 Neut # (Auto) 15.8 H Lymph # (Auto) 0.9 L [place] # (Auto) 0.9 Eos # (Auto) 0.0 Baso # (Auto) 0.0 WBC Differential . Differential Comment Auto diff final Lab - Chemistry Results 07/29/18 07/29/18 07/29/18 02:59 07:24 11:10 Sodium Potassium Chloride Carbon Dioxide Anion Gap BUN Creatinine Estimated GFR POC Glucose 401 H 352 H 412 H Random Glucose Calcium Total Bilirubin AST ALT Alkaline Phosphatase Total Protein Albumin 09/02/1007/30/18 07/31/18 15:51 20:40 04:30 Sodium Potassium Chloride Carbon Dioxide Anion Gap BUN Creatinine Estimated GFR POC Glucose 344 H 432 H 438 H Random Glucose Calcium Total Bilirubin AST ALT Alkaline Phosphatase Total Protein Albumin 07/31/18 07/31/18 07/31/18 07:39 11:39 17:11 Sodium Potassium Chloride Carbon Dioxide Anion Gap BUN 29 H Creatinine Estimated GFR POC Glucose 363 H 242 H Random Glucose Calcium Total Bilirubin AST ALT Alkaline Phosphatase Total Protein Albumin 07/31/18 07/31/18 08/01/18 17:13 20:17 02:27 Sodium Potassium Chloride Carbon Dioxide Anion Gap BUN Creatinine Estimated GFR POC Glucose 310 H 413 H 419 H Random Glucose Calcium Total Bilirubin AST ALT Alkaline Phosphatase Total Protein Albumin 08/01/18 08/01/18 08/01/18 06:38 09:31 14:07 Sodium 132 L Potassium 4.3 Chloride 94 L Carbon Dioxide 28.5 Anion Gap 10 BUN 37 H Creatinine 0.68 Estimated GFR Greater than 89 POC Glucose 391 H 348 H Random Glucose 347 H Calcium 9.1 Total Bilirubin 0.2 AST 11 L ALT 14 Alkaline Phosphatase 133 H Total Protein 8.3 H Albumin 2.7 L 08/01/18 08/01/18 08/02/18 17:20 20:37 03:23 Sodium Potassium Chloride Carbon Dioxide Anion Gap BUN Creatinine Estimated GFR POC Glucose 291 H 180 H 365 H Random Glucose Calcium Total Bilirubin AST ALT Alkaline Phosphatase Total Protein Albumin 08/02/18 08/02/18 08/02/18 05:59 05:59 08:09 Sodium Potassium Chloride Carbon Dioxide Anion Gap BUN 33 H Creatinine 0.71 Estimated GFR Greater than 89 POC Glucose 188 H Random Glucose Calcium Total Bilirubin AST ALT Alkaline Phosphatase Total Protein Albumin 08/02/18 11:35 Sodium Potassium Chloride Carbon Dioxide Anion Gap BUN Creatinine Estimated GFR POC Glucose 311 H Random Glucose Calcium Total Bilirubin AST ALT Alkaline Phosphatase Total Protein Albumin Imaging: ITS Impressions Hand X-Ray 07/18/18 20:57 CONCLUSION: Soft tissues are and mild periosteal reaction the proximal phalanx of the fourth digit. Chest X-Ray 07/22/18 12:33 CONCLUSION: Under aerated with minimal parenchymal changes right base Lumbar Spine X-Ray 07/23/18 00:00 CONCLUSION: Moderate to severe degenerative changes are again seen. Lumbar Spine MRI 07/24/18 00:00 CONCLUSION: 1. Very prominent edema seen throughout the L4 and L5 vertebral bodies and at the disc level. This could be from exuberant degenerative change versus discitis. If this is from discitis, then involvement in the vertebral bodies/ osteomyelitis would need to be suspected. There is severe stenosis at this level. 2. Moderate stenosis at the L2-L3 level caused by disc bulge and facet hypertrophy. 3. Mild disc bulge at the L1-L2 and L5-S1 levels. Shoulder MRI 07/26/18 00:00 CONCLUSION: Cannot exclude septic arthritis and osteomyelitis. Needle Biopsy/Aspiration X-Ray 07/31/18 00:00 CONCLUSION: 1. Uncomplicated fluoroscopic guided aspiration of L4-5 disc space, as above. Physical Exam: PHYSICAL EXAMINATION: GENERAL: No acute distress. HEENT: Extraocular movements grossly intact. Pupils reactive to light. No icterus. Oropharynx moist mucosa without lesions. NECK: Supple without adenopathy. LUNGS: Breath sounds clear. HEART: Regular S1, S2, without murmurs, rubs or gallops. ABDOMEN: Bowel sounds present, flat, soft, nontender. Tenderness of the lower back. EXTREMITIES: Left hand is in a surgical dressing. Post debridement. Wound is dry. No erythema. SKIN: No diffuse rash. NEUROLOGIC: No gross focal finding. PSYCHIATRIC: Calm and cooperative. Assessment and Plan - Plan IMPRESSION: 1. Cellulitis of the left forefinger and left hand. Resolved. 2. Tenosynovitis of the left hand. Post debridement. Mycobacterium abscesses. Patient noted redness of the hand waxing and waning for the last couple of months. 3. Discitis on of lumbar spine on MRI. SED rate elevated. Lumbar disc biopsy culture pending. RECOMMENDATIONS: 1. Continue vancomycin. 2. Continue piperacillin/tazobactam. 3. Continue Biaxin. Monitor the sensitivity of mycobacteria. 4. Monitor clinical status. 5. Monitor temperature.
--- NOTE | 2018-08-02 13:14 | P.PN ---
Subjective Interval history: Follow-up low back pain. Reports of increased pain today. He wants better pain management but does not want additional narcotics. Physical Exam Vital signs: Vital Signs 08/01/18 16:00 08/01/18 20:00 08/02/18 00:00 Temperature 97.5 F L 97.5 F L 97.9 F Pulse Rate 57 L 62 66 Respiratory Rate 18 20 20 Blood Pressure 122/63 131/63 130/74 Pulse Oximetry 100 100 99 08/02/18 08:00 Temperature 97.5 F L Pulse Rate 73 Respiratory Rate 16 Blood Pressure 121/58 L Pulse Oximetry 99 Intake & Output 08/01/18 08/02/18 08/02/18 18:59 06:59 18:59 Intake Total 1350 / 1350 1287.5 / 1287.5 617.5 / 617.5 Output Total 1550 / 1550 600 / 600 Balance -200 / -200 687.5 / 687.5 617.5 / 617.5 Weight 96.6 kg Intake: IV 100 / 100 567.5 / 567.5 617.5 / 617.5 Zosyn 3.375 GM Premix 50 ML @ 100 / 100 50 / 50 100 / 100 100 mls/hr IV.SIG Q6H ROBBIE Rx#: [id number] Vancomycin Inj 1,750 MG In NS 517.5 / 517.5 517.5 / 517.5 Inj 500 ML @ 257.5 mls/hr IV. SIG Q12H ROBBIE Rx#:[id number] Oral 1250 / 1250 720 / 720 Output: Urine 1550 / 1550 600 / 600 Other: # Bowel Movements 3 Narrative: The right shoulder has no soft tissue swelling or effusion. It has improved from his previous evaluation. He has restricted active range of motion primarily in forward flexion. He has painless internal and external rotation actively and passively. Neurologically no focal deficit. Results - Labs CBC & Chem 7: 08/01/18 06:38 08/02/18 05:59 Laboratory Results - last 24 hr 08/01/18 08/01/18 08/01/18 14:07 17:20 20:37 BUN Creatinine Estimated GFR POC Glucose 348 H 291 H 180 H 08/02/18 08/02/18 08/02/18 03:23 05:59 05:59 BUN 33 H Creatinine 0.71 Estimated GFR Greater than 89 POC Glucose 365 H 08/02/18 08/02/18 08:09 11:35 BUN Creatinine Estimated GFR POC Glucose 188 H 311 H Microbiology 07/31/18 13:20 Tissue - Other Gram Stain - Final 07/31/18 13:20 Tissue - Other Wound Culture - Preliminary No growth in 48 hours 07/31/18 13:20 Abscess - Back Fungal Smear - Final No fungal elements seen - Procedures Flexor tenosynovectomy left palm/ring finger, incision and drainage mid palmar space left palm and exploration, periosteal biopsy proximal phalanx left ring finger Biopsy of lumbar discitis Assessment and Plan - Assessment (1) Osteomyelitis Code(s): M86.9 - Osteomyelitis, unspecified Status: Acute (2) Abscess of hand, left Code(s): L02.512 - Cutaneous abscess of left hand Status: Acute - Plan 58-year-old male admitted secondary to left hand abscess and severe back pain Right shoulder pain Risk for osteomyelitis or abscess formation Consider repeat imaging and/or aspiration of joint if worsening per ortho Currently with improved range of motion L4/L5 discitis Severe back pain Severe spinal stenosis Potential etiology of infection Neurosurgery consulted S/p biopsy f/u culture negative to date Continue pain management counseled regarding narcotics. IV ofirmev x 24 Hrs Cellulitis of the left forefinger and left hand. Improved Tenosynovitis of the left hand. Post debridement. Culture has AFB sent to state lab for ID. Patient noted redness of the hand waxing and waning for the last couple of months. Discitis on of lumbar spine on MRI. SED rate elevated. RECOMMENDATIONS: 1. Continue vancomycin. 2. Continue piperacillin/tazobactam. 3. Continue Biaxin while awaiting AFB ID. Monitor culture. 4. Monitor culture of disc aspirate or biopsy when performed. Hx Right foot osteomyelitis ID following Atrial fibrillation Patient is status post ablation for this Eliquis on hold secondary to procedures and potential future procedures Diabetes mellitus type 2. Uncontrolled Restarted Levemir home dose of 50 units in the morning and 30 units at bedtime with improving hypoxia Follow blood sugars Insulin sliding scale Diabetic diet Hyperlipidemia Continue present treatment Follow as an outpatient Hypertension Continue baseline treatment Follow blood pressures Adjust treatments as needed DVT Prophylaxis Lovenox Discharge Planning: Not ready for discharge awaiting cultures requiring IV antibiotics (1) Osteomyelitis Qualifiers: Osteomyelitis type: unspecified type Osteomyelitis location: hand Laterality : left Qualified Code(s): M86.9 - Osteomyelitis, unspecified
[2018-08-02] MEDS: Acetaminophen Inj 650 MG/65 ML VIAL IV.SIG SCH ×2 (13:55→20:18)
[2018-08-03] MEDS: HYDROmorphone PF Inj 2 MG/ML Vial IV.PUSH PRN ×6 (00:58→21:45)
[2018-08-03] MEDS: Piperacil/Tazo 3.375 GM Premix 50 ML IV.SIG SCH ×4 (02:31→21:52)
[2018-08-03] MEDS: Vancomycin Inj 1,750 MG in Sodium Chlor 0.9% Inj 500 ML IV.SIG SCH ×2 (02:31→14:56)
[2018-08-03] MEDS: Acetaminophen Inj 650 MG/65 ML VIAL IV.SIG SCH ×2 (02:31→09:03)
[2018-08-03] MEDS: Insulin NovoLOG Aspart Correctional Sugar Inj SQ SCH ×5 (02:43→22:49)
[2018-08-03] MEDS: Baclofen 10 MG Tablet PO SCH ×3 (05:13→21:53)
[2018-08-03 07:40] LABS: Blood Urea Nitrogen 36 mg/dL (7-18); Glomerular Filtration Rate Greater Than 89 mL/min (>89)
[2018-08-03] MEDS: Enoxaparin Inj 40 MG/0.4 ML Syringe SQ SCH (09:00)
[2018-08-03] MEDS: Insulin Detemir Inj 1,000 UNIT/10 ML Vial SQ SCH ×2 (09:01→22:48)
[2018-08-03] MEDS: Senna/Docusate Sodium 8.6/50 MG Tablet PO SCH ×2 (09:03→20:30)
[2018-08-03] MEDS: Furosemide 20 MG Tablet PO SCH ×2 (09:03→20:29)
[2018-08-03] MEDS: Ramipril 2.5 MG Capsule PO SCH (09:03)
[2018-08-03] MEDS: dilTIAZem CD 240 MG Capsule PO SCH (09:03)
[2018-08-03] MEDS: Collagenase Oint 30 GM Tube TOPICAL SCH (09:04)
[2018-08-03 11:36] LABS: Baso # (Auto) 0.1 th/mm3 (0.0-0.2); Baso % (Auto) 0.4 % (0.0-2.0); Eos # (Auto) 0.3 th/mm3 (0.0-0.4); Eos % (Auto) 1.6 % (0.0-4.0); Hematocrit 32.6 % (39.0-51.0); Hemoglobin 10.5 gm/dL (13.0-17.0); Lymph # (Auto) 1.9 th/mm3 (1.0-4.8); Lymph % (Auto) 11.5 % (9.0-44.0); Mean Corpuscular HGB Conc 32.1 % (32.0-36.0); Mean Corpuscular Hemoglobin 26.3 pg (27.0-34.0); Mean Corpuscular Volume 81.8 fL (80.0-100.0); Mean Platelet Volume 6.1 fL (7.0-11.0); Mono # (Auto) 1.3 th/mm3 (0.0-0.9); Neut # (Auto) 12.8 th/mm3 (1.8-7.7); Neut % (Auto) 78.5 % (16.0-70.0); Platelet Count 574 th/mm3 (150-450); Red Blood Count 3.99 mil/mm3 (4.50-5.90); Red Cell Distribution Width 16.1 % (11.6-17.2); White Blood Count 16.4 th/mm3 (4.0-11.0)
[2018-08-03 11:54] LABS: Anion Gap 8 meq/L (5-15); Blood Urea Nitrogen 29 mg/dL (7-18); Calcium 8.5 mg/dL (8.5-10.1); Carbon Dioxide 27.6 meq/L (21.0-32.0); Chloride 99 meq/L (98-107); Glomerular Filtration Rate Greater Than 89 mL/min (>89); Glucose,Random 189 mg/dL (74-106); Potassium 3.8 meq/L (3.5-5.1); Sodium 135 meq/L (136-145)
[2018-08-03 12:07] LABS: Eosinophils 1 % (0-4); Lymphocytes 10 % (9-44); Metamyelocytes 3 % (0-1); Monocytes 7 % (0-8); Myelocytes 1 % (0-0); Platelet Morphology Normal (Normal)
--- NOTE | 2018-08-03 13:53 | P.PN ---
Subjective Interval history: Follow-up probable lumbar discitis. Improved back pain able to ambulate today. Physical Exam Vital signs: Vital Signs 08/02/18 16:00 08/02/18 20:00 08/03/18 00:00 Temperature 97.4 F L 98.5 F 98.4 F Pulse Rate 72 88 85 Respiratory Rate 18 23 19 Blood Pressure 119/57 L 132/61 128/64 Pulse Oximetry 99 98 98 08/03/18 08:00 08/03/18 12:00 Temperature 98.2 F 98.1 F Pulse Rate 88 77 Respiratory Rate 18 18 Blood Pressure 123/60 96/62 L Pulse Oximetry 100 100 Intake & Output 08/02/18 08/03/18 08/03/18 18:59 06:59 18:59 Intake Total 4450.0 / 4450.0 1107.5 / 1107.5 115 / 115 Output Total 1850 / 1850 1999 Balance 2600.0 / 2600.0 -892.5 / -892.5 115 / 115 Weight 96.8 kg Intake: IV 1250.0 / 1250.0 747.5 / 747.5 115 / 115 Ofirmev Inj 650 mg In 65 ml @ 65 / 65 130 / 130 65 / 65 400 mls/hr IV.SIG Q6H ROBBIE Rx#: [id number] Zosyn 3.375 GM Premix 50 ML @ 150 / 150 100 / 100 50 / 50 100 mls/hr IV.SIG Q6H ROBBIE Rx#: [id number] Vancomycin Inj 1,750 MG In NS 1035.0 / 1035.0 517.5 / 517.5 Inj 500 ML @ 257.5 mls/hr IV. SIG Q12H ROBBIE Rx#:[id number] Oral 3200 / 3200 360 / 360 Output: Urine 1850 / 1850 1999 Other: Date of Last Bowel Movement 07/29/18 Narrative: The right shoulder has no soft tissue swelling or effusion. It has improved from his previous evaluation. He has restricted active range of motion primarily in forward flexion. He has painless internal and external rotation actively and passively. Neurologically no focal deficit. Results - Labs CBC & Chem 7: 08/03/18 11:14 08/03/18 11:14 Laboratory Results - last 24 hr 08/02/18 08/02/18 08/02/18 13:18 16:43 20:24 WBC RBC Hgb Hct MCV MCH MCHC RDW Plt Count MPV Prelim Diff (Auto) Neut % (Auto) Lymph % (Auto) [place] % (Auto) Eos % (Auto) Baso % (Auto) Neut # (Auto) Lymph # (Auto) [place] # (Auto) Eos # (Auto) Baso # (Auto) WBC Differential Seg Neuts % (Manual) Band Neuts % (Manual) Lymphocytes % (Manual) Monocytes % (Manual) Eosinophils % (Manual) Metamyelocytes % (Man) Myelocytes % (Man) Abs Neuts (Manual) Differential Comment Platelet Estimate Platelet Morphology ESR 18 Sodium Potassium Chloride Carbon Dioxide Anion Gap BUN Creatinine Estimated GFR POC Glucose 142 H 183 H Random Glucose Calcium 08/03/18 08/03/18 08/03/18 02:38 06:05 08:57 WBC RBC Hgb Hct MCV MCH MCHC RDW Plt Count MPV Prelim Diff (Auto) Neut % (Auto) Lymph % (Auto) [place] % (Auto) Eos % (Auto) Baso % (Auto) Neut # (Auto) Lymph # (Auto) [place] # (Auto) Eos # (Auto) Baso # (Auto) WBC Differential Seg Neuts % (Manual) Band Neuts % (Manual) Lymphocytes % (Manual) Monocytes % (Manual) Eosinophils % (Manual) Metamyelocytes % (Man) Myelocytes % (Man) Abs Neuts (Manual) Differential Comment Platelet Estimate Platelet Morphology ESR Sodium Potassium Chloride Carbon Dioxide Anion Gap BUN 36 H Creatinine 0.71 Estimated GFR Greater than 89 POC Glucose 207 H 255 H Random Glucose Calcium 08/03/18 08/03/18 08/03/18 11:14 11:14 12:00 WBC 16.4 H RBC 3.99 L Hgb 10.5 L Hct 32.6 L MCV 81.8 MCH 26.3 L MCHC 32.1 RDW 16.1 Plt Count 574 H MPV 6.1 L Prelim Diff (Auto) Slide review pending Neut % (Auto) 78.5 H Lymph % (Auto) 11.5 [place] % (Auto) 8.0 Eos % (Auto) 1.6 Baso % (Auto) 0.4 Neut # (Auto) 12.8 H Lymph # (Auto) 1.9 [place] # (Auto) 1.3 H Eos # (Auto) 0.3 Baso # (Auto) 0.1 WBC Differential Manual diff final Seg Neuts % (Manual) 76 H Band Neuts % (Manual) 2 Lymphocytes % (Manual) 10 Monocytes % (Manual) 7 Eosinophils % (Manual) 1 Metamyelocytes % (Man) 3 H Myelocytes % (Man) 1 H Abs Neuts (Manual) 13.4 H Differential Comment . Platelet Estimate High H Platelet Morphology Normal ESR Sodium 135 L Potassium 3.8 Chloride 99 Carbon Dioxide 27.6 Anion Gap 8 BUN 29 H Creatinine 0.67 Estimated GFR Greater than 89 POC Glucose 360 H Random Glucose 189 H Calcium 8.5 Microbiology 07/31/18 13:20 Tissue - Other Gram Stain - Final 07/31/18 13:20 Tissue - Other Wound Culture - Final No growth in 72 hours (aerobically and anaerobically ) - Procedures Flexor tenosynovectomy left palm/ring finger, incision and drainage mid palmar space left palm and exploration, periosteal biopsy proximal phalanx left ring finger Biopsy of lumbar discitis Assessment and Plan - Assessment (1) Osteomyelitis Code(s): M86.9 - Osteomyelitis, unspecified Status: Acute (2) Abscess of hand, left Code(s): L02.512 - Cutaneous abscess of left hand Status: Acute - Plan 58-year-old male admitted secondary to left hand abscess and severe back pain Right shoulder pain Risk for osteomyelitis or abscess formation Consider repeat imaging and/or aspiration of joint if worsening per ortho Currently with improved range of motion L4/L5 discitis Severe back pain Severe spinal stenosis Potential etiology of infection Neurosurgery consulted S/p biopsy f/u culture negative to date Continue pain management counseled regarding narcotics. IV ofirmev x 24 Hrs Cellulitis of the left forefinger and left hand. Improved Tenosynovitis of the left hand. Post debridement. Culture has AFB sent to state lab for ID. Patient noted redness of the hand waxing and waning for the last couple of months. Discitis on of lumbar spine on MRI. SED rate elevated. RECOMMENDATIONS: 1. Continue vancomycin. 2. Continue piperacillin/tazobactam. 3. Continue Biaxin while awaiting AFB ID. Monitor culture. 4. Monitor culture of disc aspirate or biopsy when performed. Hx Right foot osteomyelitis ID following Atrial fibrillation Patient is status post ablation for this Eliquis on hold secondary to procedures and potential future procedures Diabetes mellitus type 2. Erratic secondary to patient's dietary noncompliance Restarted Levemir home dose of 50 units in the morning and 30 units at bedtime. Diabetic education Follow blood sugars Insulin sliding scale Diabetic diet Hyperlipidemia Continue present treatment Follow as an outpatient Hypertension Continue baseline treatment Follow blood pressures Adjust treatments as needed DVT Prophylaxis Lovenox Discharge Planning: Not ready for discharge awaiting cultures requiring IV antibiotics (1) Osteomyelitis Qualifiers: Osteomyelitis type: unspecified type Osteomyelitis location: hand Laterality : left Qualified Code(s): M86.9 - Osteomyelitis, unspecified
[2018-08-03] MEDS: Acetaminophen 325 MG Tablet PO PRN (20:29)
[2018-08-04] MEDS: HYDROmorphone PF Inj 2 MG/ML Vial IV.PUSH PRN ×6 (02:00→23:14)
[2018-08-04] MEDS: Vancomycin Inj 1,750 MG in Sodium Chlor 0.9% Inj 500 ML IV.SIG SCH ×2 (02:00→15:01)
[2018-08-04] MEDS: Piperacil/Tazo 3.375 GM Premix 50 ML IV.SIG SCH ×4 (04:10→21:15)
[2018-08-04] MEDS: Insulin NovoLOG Aspart Correctional Sugar Inj SQ SCH ×5 (04:14→21:14)
[2018-08-04] MEDS: Baclofen 10 MG Tablet PO SCH ×3 (06:02→21:15)
[2018-08-04 07:35] LABS: Blood Urea Nitrogen 19 mg/dL (7-18); Glomerular Filtration Rate Greater Than 89 mL/min (>89)
[2018-08-04] MEDS: Enoxaparin Inj 40 MG/0.4 ML Syringe SQ SCH (08:18)
[2018-08-04] MEDS: dilTIAZem CD 240 MG Capsule PO SCH (08:19)
[2018-08-04] MEDS: Furosemide 20 MG Tablet PO SCH ×2 (08:19→21:16)
[2018-08-04] MEDS: Ramipril 2.5 MG Capsule PO SCH (08:19)
[2018-08-04] MEDS: Senna/Docusate Sodium 8.6/50 MG Tablet PO SCH ×2 (08:19→21:15)
[2018-08-04] MEDS: Insulin Detemir Inj 1,000 UNIT/10 ML Vial SQ SCH ×3 (08:34→21:14)
--- NOTE | 2018-08-04 08:38 | P.PN ---
Subjective Interval history: F/U DM. Erratic FS. Hypoglycemic this am after receiving 9 units insulin HS Physical Exam Vital signs: Vital Signs 08/03/18 12:00 08/03/18 16:00 08/03/18 20:00 Temperature 98.1 F 97.8 F 97.6 F Pulse Rate 77 70 79 Respiratory Rate 18 17 18 Blood Pressure 96/62 L 116/64 131/63 Pulse Oximetry 100 100 97 08/04/18 00:00 08/04/18 02:24 Temperature 98.2 F Pulse Rate 80 Respiratory Rate 18 14 Blood Pressure 134/61 Pulse Oximetry 100 Intake & Output 08/03/18 08/04/18 08/04/18 18:59 06:59 18:59 Intake Total 4082.5 / 4082.5 617.5 / 617.5 Output Total 5400 / 5400 Balance 4082.5 / 4082.5 -4782.5 / -4782.5 Weight 88 kg Intake: IV 682.5 / 682.5 617.5 / 617.5 Ofirmev Inj 650 mg In 65 ml @ 65 / 65 400 mls/hr IV.SIG Q6H ROBBIE Rx#: [id number] Zosyn 3.375 GM Premix 50 ML @ 100 / 100 100 / 100 100 mls/hr IV.SIG Q6H ROBBIE Rx#: [id number] Vancomycin Inj 1,750 MG In NS 517.5 / 517.5 517.5 / 517.5 Inj 500 ML @ 257.5 mls/hr IV. SIG Q12H ROBBIE Rx#:[id number] Oral 3400 / 3400 Output: Urine 5400 / 5400 Other: # Voids 2,200 Date of Last Bowel Movement 08/03/18 08/03/18 Narrative: Out of bed to chair. Alert and oriented the right shoulder has no soft tissue swelling or effusion. It has improved from his previous evaluation. He has restricted active range of motion primarily in forward flexion. He has painless internal and external rotation actively and passively. Neurologically no focal deficit. Results - Labs CBC & Chem 7: 08/03/18 11:14 08/04/18 06:44 Laboratory Results - last 24 hr 08/03/18 08/03/18 08/03/18 08:57 11:14 11:14 WBC 16.4 H RBC 3.99 L Hgb 10.5 L Hct 32.6 L MCV 81.8 MCH 26.3 L MCHC 32.1 RDW 16.1 Plt Count 574 H MPV 6.1 L Prelim Diff (Auto) Slide review pending Neut % (Auto) 78.5 H Lymph % (Auto) 11.5 [place] % (Auto) 8.0 Eos % (Auto) 1.6 Baso % (Auto) 0.4 Neut # (Auto) 12.8 H Lymph # (Auto) 1.9 [place] # (Auto) 1.3 H Eos # (Auto) 0.3 Baso # (Auto) 0.1 WBC Differential Manual diff final Seg Neuts % (Manual) 76 H Band Neuts % (Manual) 2 Lymphocytes % (Manual) 10 Monocytes % (Manual) 7 Eosinophils % (Manual) 1 Metamyelocytes % (Man) 3 H Myelocytes % (Man) 1 H Abs Neuts (Manual) 13.4 H Differential Comment . Platelet Estimate High H Platelet Morphology Normal Sodium 135 L Potassium 3.8 Chloride 99 Carbon Dioxide 27.6 Anion Gap 8 BUN 29 H Creatinine 0.67 Estimated GFR Greater than 89 POC Glucose 255 H Random Glucose 189 H Calcium 8.5 08/03/18 08/03/18 08/03/18 12:00 17:01 20:15 WBC RBC Hgb Hct MCV MCH MCHC RDW Plt Count MPV Prelim Diff (Auto) Neut % (Auto) Lymph % (Auto) [place] % (Auto) Eos % (Auto) Baso % (Auto) Neut # (Auto) Lymph # (Auto) [place] # (Auto) Eos # (Auto) Baso # (Auto) WBC Differential Seg Neuts % (Manual) Band Neuts % (Manual) Lymphocytes % (Manual) Monocytes % (Manual) Eosinophils % (Manual) Metamyelocytes % (Man) Myelocytes % (Man) Abs Neuts (Manual) Differential Comment Platelet Estimate Platelet Morphology Sodium Potassium Chloride Carbon Dioxide Anion Gap BUN Creatinine Estimated GFR POC Glucose 360 H 223 H 395 H Random Glucose Calcium 08/03/18 08/04/18 08/04/18 21:49 04:07 06:44 WBC RBC Hgb Hct MCV MCH MCHC RDW Plt Count MPV Prelim Diff (Auto) Neut % (Auto) Lymph % (Auto) [place] % (Auto) Eos % (Auto) Baso % (Auto) Neut # (Auto) Lymph # (Auto) [place] # (Auto) Eos # (Auto) Baso # (Auto) WBC Differential Seg Neuts % (Manual) Band Neuts % (Manual) Lymphocytes % (Manual) Monocytes % (Manual) Eosinophils % (Manual) Metamyelocytes % (Man) Myelocytes % (Man) Abs Neuts (Manual) Differential Comment Platelet Estimate Platelet Morphology Sodium Potassium Chloride Carbon Dioxide Anion Gap BUN 19 H Creatinine 0.55 L Estimated GFR Greater than 89 POC Glucose 414 H 84 Random Glucose Calcium Microbiology 07/31/18 13:20 Tissue - Other Gram Stain - Final 07/31/18 13:20 Tissue - Other Wound Culture - Final No growth in 72 hours (aerobically and anaerobically ) - Procedures Flexor tenosynovectomy left palm/ring finger, incision and drainage mid palmar space left palm and exploration, periosteal biopsy proximal phalanx left ring finger Biopsy of lumbar discitis Assessment and Plan - Assessment (1) Osteomyelitis Code(s): M86.9 - Osteomyelitis, unspecified Status: Acute (2) Abscess of hand, left Code(s): L02.512 - Cutaneous abscess of left hand Status: Acute - Plan 58-year-old male admitted secondary to left hand abscess and severe back pain Right shoulder pain Risk for osteomyelitis or abscess formation Consider repeat imaging and/or aspiration of joint if worsening per ortho Currently with improved range of motion L4/L5 discitis Severe back pain Severe spinal stenosis Neurosurgery consulted S/p biopsy f/u culture negative to date Continue pain management counseled regarding narcotics. Cellulitis of the left forefinger and left hand. Improved Tenosynovitis of the left hand. Post debridement. Culture has AFB sent to state lab for ID. Patient noted redness of the hand waxing and waning for the last couple of months. RECOMMENDATIONS: 1. Continue vancomycin. 2. Continue piperacillin/tazobactam. 3. Continue Biaxin while awaiting sensitivity. Monitor culture. Hx Right foot osteomyelitis ID following Atrial fibrillation Patient is status post ablation for this Eliquis on hold secondary to procedures and potential future procedures Diabetes mellitus type 2. Erratic secondary to patient's dietary noncompliance Increase Levemir to [address] 30 units at bedtime. Diabetic education Follow blood sugars Insulin sliding scale do not cover more than 2 units HS hypoglycemia protocol Diabetic diet Hyperlipidemia Continue present treatment Follow as an outpatient Hypertension Continue baseline treatment Follow blood pressures Adjust treatments as needed DVT Prophylaxis Lovenox Consult physical therapy Discharge Planning: Not ready for discharge awaiting cultures requiring IV antibiotics. Needs ID clearance (1) Osteomyelitis Qualifiers: Osteomyelitis type: unspecified type Osteomyelitis location: hand Laterality : left Qualified Code(s): M86.9 - Osteomyelitis, unspecified
--- NOTE | 2018-08-04 12:42 | P.PN ---
Physical Exam Vital signs: Vital Signs 08/03/18 16:00 08/03/18 20:00 08/04/18 00:00 Temperature 97.8 F 97.6 F 98.2 F Pulse Rate 70 79 80 Respiratory Rate 17 18 18 Blood Pressure 116/64 131/63 134/61 Pulse Oximetry 100 97 100 08/04/18 02:24 08/04/18 08:00 08/04/18 11:03 Temperature 98.5 F Pulse Rate 96 H 92 H Respiratory Rate 14 16 Blood Pressure 121/61 113/63 Pulse Oximetry 97 08/04/18 12:00 Temperature 97.8 F Pulse Rate 84 Respiratory Rate 16 Blood Pressure 107/58 L Pulse Oximetry 99 Intake & Output 08/03/18 08/04/18 08/04/18 18:59 06:59 18:59 Intake Total 4082.5 / 4082.5 617.5 / 617.5 Output Total 5400 / 5400 Balance 4082.5 / 4082.5 -4782.5 / -4782.5 Weight 88 kg Intake: IV 682.5 / 682.5 617.5 / 617.5 Ofirmev Inj 650 mg In 65 ml @ 65 / 65 400 mls/hr IV.SIG Q6H ROBBIE Rx#: [id number] Zosyn 3.375 GM Premix 50 ML @ 100 / 100 100 / 100 100 mls/hr IV.SIG Q6H ROBBIE Rx#: [id number] Vancomycin Inj 1,750 MG In NS 517.5 / 517.5 517.5 / 517.5 Inj 500 ML @ 257.5 mls/hr IV. SIG Q12H ROBBIE Rx#:[id number] Oral 3400 / 3400 Output: Urine 5400 / 5400 Other: # Voids 2,200 Date of Last Bowel Movement 08/03/18 08/03/18 08/03/18 Results - Labs CBC & Chem 7: 08/03/18 11:14 08/04/18 06:44 Laboratory Results - last 24 hr 08/03/18 08/03/18 08/03/18 17:01 20:15 21:49 BUN Creatinine Estimated GFR POC Glucose 223 H 395 H 414 H 08/04/18 08/04/18 08/04/18 04:07 06:44 08:17 BUN 19 H Creatinine 0.55 L Estimated GFR Greater than 89 POC Glucose 84 210 H - Procedures Flexor tenosynovectomy left palm/ring finger, incision and drainage mid palmar space left palm and exploration, periosteal biopsy proximal phalanx left ring finger Biopsy of lumbar discitis Assessment and Plan - Assessment (1) Osteomyelitis Code(s): M86.9 - Osteomyelitis, unspecified Status: Acute (2) Abscess of hand, left Code(s): L02.512 - Cutaneous abscess of left hand Status: Acute - Plan 58-year-old male admitted secondary to left hand abscess and severe back pain Right shoulder pain Risk for osteomyelitis or abscess formation Consider repeat imaging and/or aspiration of joint if worsening per ortho Currently with improved range of motion L4/L5 discitis Severe back pain Severe spinal stenosis Neurosurgery consulted S/p biopsy f/u culture negative to date Continue pain management counseled regarding narcotics. Cellulitis of the left forefinger and left hand. Improved Tenosynovitis of the left hand. Post debridement. Culture has AFB sent to state lab for ID. Patient noted redness of the hand waxing and waning for the last couple of months. RECOMMENDATIONS: 1. Continue vancomycin. 2. Continue piperacillin/tazobactam. 3. Continue Biaxin while awaiting sensitivity. Monitor culture. Hx Right foot osteomyelitis ID following Atrial fibrillation Patient is status post ablation for this Eliquis on hold secondary to procedures and potential future procedures Diabetes mellitus type 2. Erratic secondary to patient's dietary noncompliance Increase Levemir to [address] 30 units at bedtime. Diabetic education Follow blood sugars Insulin sliding scale do not cover more than 2 units HS hypoglycemia protocol Diabetic diet Hyperlipidemia Continue present treatment Follow as an outpatient Hypertension Continue baseline treatment Follow blood pressures Adjust treatments as needed DVT Prophylaxis Lovenox Discharge Planning: Not ready for discharge awaiting cultures requiring IV antibiotics. Needs ID clearance (1) Osteomyelitis Qualifiers: Osteomyelitis type: unspecified type Osteomyelitis location: hand Laterality : left Qualified Code(s): M86.9 - Osteomyelitis, unspecified
[2018-08-04] MEDS: Collagenase Oint 30 GM Tube TOPICAL SCH (13:23)
[2018-08-05] MEDS: Vancomycin Inj 1,750 MG in Sodium Chlor 0.9% Inj 500 ML IV.SIG SCH ×2 (02:38→14:54)
[2018-08-05] MEDS: Insulin NovoLOG Aspart Correctional Sugar Inj SQ SCH ×5 (02:39→20:37)
[2018-08-05] MEDS: HYDROmorphone PF Inj 2 MG/ML Vial IV.PUSH PRN ×5 (03:18→20:32)
[2018-08-05] MEDS: Piperacil/Tazo 3.375 GM Premix 50 ML IV.SIG SCH ×4 (05:07→20:32)
[2018-08-05] MEDS: Baclofen 10 MG Tablet PO SCH ×3 (05:08→21:10)
[2018-08-05] MEDS: Senna/Docusate Sodium 8.6/50 MG Tablet PO SCH ×2 (08:04→20:30)
[2018-08-05] MEDS: dilTIAZem CD 240 MG Capsule PO SCH (08:04)
[2018-08-05] MEDS: Furosemide 20 MG Tablet PO SCH ×2 (08:04→20:30)
[2018-08-05] MEDS: Ramipril 2.5 MG Capsule PO SCH (08:04)
[2018-08-05] MEDS: Enoxaparin Inj 40 MG/0.4 ML Syringe SQ SCH (08:04)
[2018-08-05] MEDS: Insulin Detemir Inj 1,000 UNIT/10 ML Vial SQ SCH (08:05)
[2018-08-05] MEDS: Collagenase Oint 30 GM Tube TOPICAL SCH (08:06)
[2018-08-05 08:40] LABS: Glomerular Filtration Rate Greater Than 89 mL/min (>89)
--- NOTE | 2018-08-05 11:53 | P.PNID ---
Subjective Remarks: Patient continues to have severe back pain. The left hand wound is dry. 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 Sensitivity not available. MRI shows L4-L5 discitis. Culture from lumbar aspirate has no growth. Afebrile. White blood cell count is elevated. This is a 58-year-old white male who presented to the emergency department, yesterday with complaints of back pain. The patient notes that he twisted his back while getting out of his motor vehicle and he also noted pain in his left hand. He had been experiencing pain and discomfort in the left ankle for a couple of weeks and he was supposed to see a hand doctor to have an assessment for surgery on the left hand, but he had some preop evaluation to be done and there was delay in getting that performed. He states that his left hand became painful and swollen, and there was redness extending up his wrist and arm, up to the elbow. He was admitted and started on IV antibiotics. An x-ray of the hand was performed and it showed moderate soft tissue swelling about the fourth digit adjacent to the proximal phalanx and linear densities along the medial and lateral cortex of the fourth proximal phalanx suggesting periosteal reaction. Past Medical History: PAST MEDICAL HISTORY: Gastroesophageal reflux disease, toe amputations, diabetes mellitus, hyperlipidemia, hypertension, atrial fibrillation, osteomyelitis involving the right foot. Allergies/Adverse Reactions: Allergies *MDRO Multi-Drug Resistant Organism Adverse Reaction (Unknown, Uncoded 06/16/17 16:34) MRSA MRSA (foot wound) - 02/12/15, 11/12/16, 03/29/17; (toe) - 03/2016 Objective Vital Signs 08/04/18 12:00 08/04/18 20:00 08/05/18 00:00 Temperature 97.8 F 97.4 F L 98 F Pulse Rate 84 71 75 Respiratory Rate 16 17 17 Blood Pressure 107/58 L 119/59 L 127/65 Pulse Oximetry 99 98 98 08/05/18 08:00 Temperature 97.9 F Pulse Rate 73 Respiratory Rate 16 Blood Pressure 131/65 Pulse Oximetry 100 Intake & Output 08/04/18 08/05/18 08/05/18 18:59 06:59 18:59 Intake Total 3617.5 / 3617.5 1617.5 / 1617.5 50 / 50 Output Total 2200 / 2200 1350 / 1350 1050 / 1050 Balance 1417.5 / 1417.5 267.5 / 267.5 -1000 / -1000 Weight 88 kg Intake: IV 617.5 / 617.5 617.5 / 617.5 50 / 50 Zosyn 3.375 GM Premix 50 ML @ 100 / 100 100 / 100 50 / 50 100 mls/hr IV.SIG Q6H ROBBIE Rx#: [id number] Vancomycin Inj 1,750 MG In NS 517.5 / 517.5 517.5 / 517.5 Inj 500 ML @ 257.5 mls/hr IV. SIG Q12H ROBBIE Rx#:[id number] Oral 3000 / 3000 1000 / 1000 Output: Urine 2200 / 2200 1350 / 1350 1050 / 1050 Other: Date of Last Bowel Movement 08/03/18 08/04/18 # Bowel Movements 0 07/31/18 13:20 Tissue - Other Acid Fast Bacilli Smear - Final No acid fast bacilli seen 07/31/18 13:20 Tissue - Other Mycobacterial Culture - Pending 07/21/18 08:41 Tissue - Hand Fungal Smear - Final No fungal elements seen 07/21/18 08:41 Tissue - Hand Fungal Culture - Preliminary No growth in 2 weeks 07/21/18 08:41 Tissue - Hand Acid Fast Bacilli Smear - Final No acid fast bacilli seen 07/21/18 08:41 Tissue - Hand Mycobacterial Culture - Preliminary No growth in 2 weeks 07/31/18 13:20 Tissue - Other Gram Stain - Final 07/31/18 13:20 Tissue - Other Wound Culture - Final No growth in 72 hours (aerobically and anaerobically ) Lab - Hematology Results 08/03/18 11:14 WBC Differential Manual diff final Seg Neuts % (Manual) 76 H Band Neuts % (Manual) 2 Lymphocytes % (Manual) 10 Monocytes % (Manual) 7 Eosinophils % (Manual) 1 Metamyelocytes % (Man) 3 H Myelocytes % (Man) 1 H Abs Neuts (Manual) 13.4 H Platelet Estimate High H Platelet Morphology Normal Lab - Chemistry Results 08/03/18 08/03/18 08/03/18 11:14 12:00 17:01 Sodium 135 L Potassium 3.8 Chloride 99 Carbon Dioxide 27.6 Anion Gap 8 BUN 29 H Creatinine 0.67 Estimated GFR Greater than 89 POC Glucose 360 H 223 H Random Glucose 189 H Calcium 8.5 08/03/18 08/03/18 08/04/18 20:15 21:49 04:07 Sodium Potassium Chloride Carbon Dioxide Anion Gap BUN Creatinine Estimated GFR POC Glucose 395 H 414 H 84 Random Glucose Calcium 08/04/18 08/04/18 08/04/18 06:44 08:17 12:58 Sodium Potassium Chloride Carbon Dioxide Anion Gap BUN 19 H Creatinine 0.55 L Estimated GFR Greater than 89 POC Glucose 210 H 192 H Random Glucose Calcium 08/04/18 08/04/18 08/05/18 17:59 21:12 07:18 Sodium Potassium Chloride Carbon Dioxide Anion Gap BUN 22 H Creatinine Estimated GFR POC Glucose 227 H 336 H Random Glucose Calcium 08/05/18 08/05/18 07:18 07:42 Sodium Potassium Chloride Carbon Dioxide Anion Gap BUN Creatinine 0.60 Estimated GFR Greater than 89 POC Glucose 161 H Random Glucose Calcium Imaging: ITS Impressions Hand X-Ray 07/18/18 20:57 CONCLUSION: Soft tissues are and mild periosteal reaction the proximal phalanx of the fourth digit. Chest X-Ray 07/22/18 12:33 CONCLUSION: Under aerated with minimal parenchymal changes right base Lumbar Spine X-Ray 07/23/18 00:00 CONCLUSION: Moderate to severe degenerative changes are again seen. Lumbar Spine MRI 07/24/18 00:00 CONCLUSION: 1. Very prominent edema seen throughout the L4 and L5 vertebral bodies and at the disc level. This could be from exuberant degenerative change versus discitis. If this is from discitis, then involvement in the vertebral bodies/ osteomyelitis would need to be suspected. There is severe stenosis at this level. 2. Moderate stenosis at the L2-L3 level caused by disc bulge and facet hypertrophy. 3. Mild disc bulge at the L1-L2 and L5-S1 levels. Shoulder MRI 07/26/18 00:00 CONCLUSION: Cannot exclude septic arthritis and osteomyelitis. Needle Biopsy/Aspiration X-Ray 07/31/18 00:00 CONCLUSION: 1. Uncomplicated fluoroscopic guided aspiration of L4-5 disc space, as above. Physical Exam: PHYSICAL EXAMINATION: GENERAL: No acute distress. HEENT: No icterus. Oropharynx moist mucosa without lesions. NECK: Supple without adenopathy. LUNGS: Clear breath sounds. HEART: Regular S1, S2, without murmurs, rubs or gallops. ABDOMEN: Bowel sounds present, flat, soft, nontender. Tenderness of the lower back. EXTREMITIES: Left hand Post debridement. Wound is dry. No erythema. SKIN: No diffuse rash. NEUROLOGIC: No gross focal finding. PSYCHIATRIC: Calm and cooperative. Assessment and Plan - Plan IMPRESSION: 1. Cellulitis of the left forefinger and left hand. Resolved. 2. Tenosynovitis of the left hand. Post debridement. Mycobacterium abscesses. Patient noted redness of the hand waxing and waning for the last couple of months. 3. Discitis on of lumbar spine on MRI. I reviewed the MRI with radiology. The patient has obvious collapse of L4-L5 vertebral disc. It is recommended that he have a bone biopsy of the vertebral body where there is also collapse of the vertebra at L4 for diagnosis since we do not have an organism to target antibiotic treatment. The sedimentation rate has normalized and I am uncertain whether this reflects response to treatment because one would not have expected the sed rate to normalize so quickly with osteomyelitis/discitis treatment. RECOMMENDATIONS: 1. Continue vancomycin. 2. Continue piperacillin/tazobactam. 3. Continue Biaxin. Monitor the sensitivity of mycobacteria. 4. Biopsy of the vertebral bone at L4. 5. Monitor clinical status. 6. Monitor white blood cell count. We need to await results from the biopsy to make decision on outpatient treatment on this patient. Discussed with Dr. Hunter.
--- NOTE | 2018-08-05 12:15 | P.PN ---
Subjective Interval history: Follow-up low back pain. Continues to have significant back pain patient seen with infectious disease plan to do lumbar biopsy. Previous wound cultures from lumbar aspirate negative to date Physical Exam Vital signs: Vital Signs 08/04/18 20:00 08/05/18 00:00 08/05/18 08:00 Temperature 97.4 F L 98 F 97.9 F Pulse Rate 71 75 73 Respiratory Rate 17 17 16 Blood Pressure 119/59 L 127/65 131/65 Pulse Oximetry 98 98 100 Intake & Output 08/04/18 08/05/18 08/05/18 18:59 06:59 18:59 Intake Total 3617.5 / 3617.5 1617.5 / 1617.5 50 / 50 Output Total 2200 / 2200 1350 / 1350 1050 / 1050 Balance 1417.5 / 1417.5 267.5 / 267.5 -1000 / -1000 Weight 88 kg Intake: IV 617.5 / 617.5 617.5 / 617.5 50 / 50 Zosyn 3.375 GM Premix 50 ML @ 100 / 100 100 / 100 50 / 50 100 mls/hr IV.SIG Q6H ROBBIE Rx#: [id number] Vancomycin Inj 1,750 MG In NS 517.5 / 517.5 517.5 / 517.5 Inj 500 ML @ 257.5 mls/hr IV. SIG Q12H ROBBIE Rx#:[id number] Oral 3000 / 3000 1000 / 1000 Output: Urine 2200 / 2200 1350 / 1350 1050 / 1050 Other: Date of Last Bowel Movement 08/03/18 08/04/18 # Bowel Movements 0 Narrative: Well-developed, well-nourished in no distress. Alert and oriented the right shoulder has no soft tissue swelling or effusion. It has improved from his previous evaluation. He has restricted active range of motion primarily in forward flexion. He has painless internal and external rotation actively and passively. Neurologically no focal deficit. Results - Labs CBC & Chem 7: 08/03/18 11:14 08/05/18 07:18 Laboratory Results - last 24 hr 08/04/18 08/04/18 08/04/18 12:58 17:59 21:12 BUN Creatinine Estimated GFR POC Glucose 192 H 227 H 336 H 08/05/18 08/05/18 08/05/18 07:18 07:18 07:42 BUN 22 H Creatinine 0.60 Estimated GFR Greater than 89 POC Glucose 161 H 08/05/18 11:49 BUN Creatinine Estimated GFR POC Glucose 150 H Microbiology 07/31/18 13:20 Tissue - Other Acid Fast Bacilli Smear - Final No acid fast bacilli seen 07/21/18 08:41 Tissue - Hand Fungal Smear - Final No fungal elements seen 07/21/18 08:41 Tissue - Hand Fungal Culture - Preliminary No growth in 2 weeks 07/21/18 08:41 Tissue - Hand Acid Fast Bacilli Smear - Final No acid fast bacilli seen 07/21/18 08:41 Tissue - Hand Mycobacterial Culture - Preliminary No growth in 2 weeks - Procedures Flexor tenosynovectomy left palm/ring finger, incision and drainage mid palmar space left palm and exploration, periosteal biopsy proximal phalanx left ring finger Biopsy of lumbar discitis Assessment and Plan - Assessment (1) Osteomyelitis Code(s): M86.9 - Osteomyelitis, unspecified Status: Acute (2) Abscess of hand, left Code(s): L02.512 - Cutaneous abscess of left hand Status: Acute - Plan 58-year-old male admitted secondary to left hand abscess and severe back pain Right shoulder pain Risk for osteomyelitis or abscess formation Consider repeat imaging and/or aspiration of joint if worsening per ortho Currently with improved range of motion L4/L5 discitis Severe back pain Severe spinal stenosis Neurosurgery consulted S/p lumbar aspirate f/u culture negative to date. Discussed with infectious disease, will request IR to do biopsy to guide antibiotic therapy Continue pain management counseled regarding narcotics. Cellulitis of the left forefinger and left hand. Improved Tenosynovitis of the left hand. Post debridement. Culture has AFB sent to state lab for ID. Patient noted redness of the hand waxing and waning for the last couple of months. RECOMMENDATIONS: 1. Continue vancomycin. 2. Continue piperacillin/tazobactam. 3. Continue Biaxin while awaiting sensitivity. Monitor culture. Hx Right foot osteomyelitis ID following Atrial fibrillation Patient is status post ablation for this Eliquis on hold secondary to procedures and potential future procedures Diabetes mellitus type 2. Erratic secondary to patient's dietary noncompliance Continue Levemir 54 units in the morning increase to 32 units at bedtime for better control. Diabetic education Follow blood sugars Insulin sliding scale do not cover more than 2 units HS hypoglycemia protocol Diabetic diet Hyperlipidemia Continue present treatment Follow as an outpatient Hypertension Continue baseline treatment Follow blood pressures Adjust treatments as needed DVT Prophylaxis Lovenox Consult physical therapy Discharge Planning: Not ready for discharge awaiting cultures requiring IV antibiotics. Needs ID clearance (1) Osteomyelitis Qualifiers: Osteomyelitis type: unspecified type Osteomyelitis location: hand Laterality : left Qualified Code(s): M86.9 - Osteomyelitis, unspecified
--- NOTE | 2018-08-05 17:45 | P.PNOP ---
Subjective Interval history: left hand is working on [employer] and left hand is a very minor problem to him Physical Exam Vital signs: Vital Signs 08/04/18 20:00 08/05/18 00:00 08/05/18 08:00 Temperature 97.4 F L 98 F 97.9 F Pulse Rate 71 75 73 Respiratory Rate 17 17 16 Blood Pressure 119/59 L 127/65 131/65 Pulse Oximetry 98 98 100 08/05/18 12:00 08/05/18 16:00 Temperature 97.7 F 97.8 F Pulse Rate 74 69 Respiratory Rate 17 16 Blood Pressure 130/69 123/63 Pulse Oximetry 100 100 Intake & Output 08/04/18 08/05/18 08/05/18 18:59 06:59 18:59 Intake Total 3617.5 / 3617.5 1617.5 / 1617.5 617.5 / 617.5 Output Total 2200 / 2200 1350 / 1350 1050 / 1050 Balance 1417.5 / 1417.5 267.5 / 267.5 -432.5 / -432.5 Weight 88 kg Intake: IV 617.5 / 617.5 617.5 / 617.5 617.5 / 617.5 Zosyn 3.375 GM Premix 50 ML @ 100 / 100 100 / 100 100 / 100 100 mls/hr IV.SIG Q6H ROBBIE Rx#: [id number] Vancomycin Inj 1,750 MG In NS 517.5 / 517.5 517.5 / 517.5 517.5 / 517.5 Inj 500 ML @ 257.5 mls/hr IV. SIG Q12H ROBBIE Rx#:[id number] Oral 3000 / 3000 1000 / 1000 Output: Urine 2200 / 2200 1350 / 1350 1050 / 1050 Other: Date of Last Bowel Movement 08/03/18 08/04/18 # Bowel Movements 0 - Constitutional no acute distress - Routine HEENT Exam Head: Present: normocephalic Eye: Present: EOMI ENT: Present: mucous membranes moist - Detailed Upper Extremity Exam Hand/Fingers: Left intact extensor function, Left intact flexor function, Left tenderness, Left wound (left dorsal hand healed and volar wound with no drainage and scabbed area at distal palm; no erythema volar or dorsal), Left decreased ROM (left ring finger, but almost full flexion and not full active extension) Results - Labs CBC & Chem 7: 08/03/18 11:14 08/05/18 07:18 Laboratory Results - last 24 hr 08/04/18 08/04/18 08/05/18 17:59 21:12 07:18 BUN 22 H Creatinine Estimated GFR POC Glucose 227 H 336 H 08/05/18 08/05/18 08/05/18 07:18 07:42 11:49 BUN Creatinine 0.60 Estimated GFR Greater than 89 POC Glucose 161 H 150 H 08/05/18 16:36 BUN Creatinine Estimated GFR POC Glucose 90 Microbiology 07/31/18 13:20 Tissue - Other Acid Fast Bacilli Smear - Final No acid fast bacilli seen 07/21/18 08:41 Tissue - Hand Fungal Smear - Final No fungal elements seen 07/21/18 08:41 Tissue - Hand Fungal Culture - Preliminary No growth in 2 weeks 07/21/18 08:41 Tissue - Hand Acid Fast Bacilli Smear - Final No acid fast bacilli seen 07/21/18 08:41 Tissue - Hand Mycobacterial Culture - Preliminary No growth in 2 weeks - Procedures Flexor tenosynovectomy left palm/ring finger, incision and drainage mid palmar space left palm and exploration, periosteal biopsy proximal phalanx left ring finger Biopsy of lumbar discitis Assessment and Plan - Problem List (1) Suppurative tenosynovitis of flexor tendon of left hand Code(s): M65.142 - Other infective (teno)synovitis, left hand Status: Acute 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 left palmar wound redressed with sterile dry 2x2s and 3" John and reinforced that he should not weight-bear on the palm, but may weight-bear on the left wrist or forearm and continue to work on AROM of the fingers. Will order dressing changes every other day and he should followup with Dr. Slaughter next week in the office and call for problems any earlier. I am covering for Dr. Houston while he is out of the office.
[2018-08-05] MEDS ORDERED: Insulin Detemir Inj 1,000 UNIT/10 ML Vial SQ SCH (21:00)
[2018-08-06] MEDS: HYDROmorphone PF Inj 2 MG/ML Vial IV.PUSH PRN ×5 (00:28→21:07)
[2018-08-06] MEDS: Vancomycin Inj 1,750 MG in Sodium Chlor 0.9% Inj 500 ML IV.SIG SCH ×2 (02:18→15:30)
[2018-08-06] MEDS: Insulin NovoLOG Aspart Correctional Sugar Inj SQ SCH ×5 (02:25→20:18)
[2018-08-06] MEDS: Piperacil/Tazo 3.375 GM Premix 50 ML IV.SIG SCH ×4 (05:09→20:22)
[2018-08-06] MEDS: Baclofen 10 MG Tablet PO SCH ×3 (05:10→21:07)
[2018-08-06 06:56] LABS: Glomerular Filtration Rate Greater Than 89 mL/min (>89)
[2018-08-06] MEDS ORDERED: fentaNYL Citrate Inj 250 MCG/5 ML Ampul ONE (08:56)
[2018-08-06] MEDS ORDERED: Bupivacaine PF 0.75% Inj 10 ML Vial ONE ×2 (09:34→09:35)
--- NOTE | 2018-08-06 09:52 | P.RAD ---
Post Procedure Progress Note - Pre Procedure Diagnosis (1) Osteomyelitis - Post Procedure Diagnosis (1) Osteomyelitis - Procedure Information Procedure Date: 08/06/18 Supervising Radiologist: Trenton Schaefer Jr, MD Proceduralist/Assist: Kenneth López Anesthesia: Conscious Sedation - Plan of Activity Patient to Unit: ROPU Patient Condition: Good See PACS Report for procedural detail/treatment. Spinal Procedure Bone Biopsy L4 Biopsy: successful L4 bone bx from left unilateral transpedicular approach. Good sample noted. Sample to histology and microbiology. Pt tolerated procedure well. Plan: Hold all blood thinners/antiplatelet medications for 48 hrs.
--- NOTE | 2018-08-06 10:55 | IR ---
EXAM DATE: 08/06/2018 10:34 AM EDT AGE/SEX: 58 years / Male INDICATIONS: Patient presents with chronic back pain in need of a L4 bone biopsy for diagnosis. CLINICAL DATA: This is the patient's initial encounter. Patient reports that signs and symptoms have been present for 3 weeks and indicates a pain score of 10/10. MEDICAL/SURGICAL HISTORY: Gastroesophageal reflux disease. Diabetes. Hypertension. Hyperlipi demia, toe amputations, A-fib, Osteomyelitis involving the right foot. . H/O foot surgery. [place] [facility] [place] 07/24/2018. . FLUORO TIME (min): 2.2 IMAGE SERIES: 6 SEDATION TIME (min): 25 MEDICATION(S): 4.5mg midazolam (Versed) IV 225 fentanyl (Sublimaze) IV DEVICE(s): 11 gauge Venus Access cannula bone biopsy needle SPECIMEN(S): Core specimen(s) obtained and submitted to laboratory for pathologic evaluation. . . PROCEDURE : 1. Fluoroscopically guided needle biopsy. 2. Conscious sedation with continuous EKG and Oximetry monitoring. I reviewed the patient's MRI 07/24/2018. Abnormal signal in a diffuse fashion throughout the L4 and L5 vertebral bodies. L4 biopsy with culture is planned. The risks, benefits and alternatives to the pro cedure were explained and verbal and written consent was obtained. The site was prepped in sterile fashion. Full sterile technique was used, including cap, mask, steri le gloves and gown and a large sterile sheet. Hand hygiene and 2% chlorhexidine and/or betadine/alco hol prep was utilized per protocol for cutaneous antisepsis. The skin and subcutaneous tissues were infiltrated with local anesthetic solution. Marcaine was utilized for periosteal anesthetic involving the left posterior elements. With fluoroscopic guidance and utilizing a unilateral left transpedicular approach an 11-gauge [employer] r introducer needle was passed into the L4 vertebral body under fluoroscopic guidance. The needle tip was positioned at the junction of the pedicle and vertebral body. Under fluoroscopic guidance a core needle was passed through the introducer needle and into the vertebral body. A good core sample was taken and placed in formalin. A sample was also taken for microbiological evaluation. The needle was removed. The patient tolerated the procedure well.. Conscious sedation was performed with the prescribed dosages and duration as above in the presence of an independent trained radiology nurse to assist in the monitoring of the patient. EKG and oximetry remained stable throughout the procedure. CONCLUSION: 1. Uncomplicated needle biopsy of the L4 vertebral body as above. Samples were taken for histolog ical evaluation and microbiological evaluation. Electronically signed by: Trenton Schaefer MD 08/06/2018 10:54 AM EDT
[2018-08-06] MEDS: Ramipril 2.5 MG Capsule PO SCH (12:11)
[2018-08-06] MEDS: Collagenase Oint 30 GM Tube TOPICAL SCH (12:11)
[2018-08-06] MEDS: Senna/Docusate Sodium 8.6/50 MG Tablet PO SCH ×2 (12:11→20:14)
[2018-08-06] MEDS: dilTIAZem CD 240 MG Capsule PO SCH (12:12)
[2018-08-06] MEDS: Furosemide 20 MG Tablet PO SCH ×2 (12:12→20:14)
[2018-08-06] MEDS: Insulin Detemir Inj 1,000 UNIT/10 ML Vial SQ SCH ×2 (12:13→20:15)
--- NOTE | 2018-08-06 14:37 | P.PN ---
Subjective Interval history: Follow-up lumbar discitis. Tolerated lumbar disc biopsy. Hypoglycemic this morning, asymptomatic Physical Exam Vital signs: Vital Signs 08/05/18 16:00 08/05/18 20:09 08/05/18 21:10 Temperature 97.8 F 98.5 F Pulse Rate 69 79 Respiratory Rate 16 16 16 Blood Pressure 123/63 128/63 Pulse Oximetry 100 96 08/05/18 23:03 08/06/18 00:13 08/06/18 00:58 Temperature 98.7 F Pulse Rate 88 Respiratory Rate 16 17 16 Blood Pressure 141/61 H Pulse Oximetry 97 08/06/18 02:49 08/06/18 04:59 08/06/18 06:53 Temperature Pulse Rate Respiratory Rate 18 18 16 Blood Pressure Pulse Oximetry 08/06/18 08:00 08/06/18 10:00 08/06/18 10:15 Temperature 97.8 F 97.5 F L Pulse Rate 82 90 90 Respiratory Rate 17 18 18 Blood Pressure 131/76 142/73 H 122/73 Pulse Oximetry 97 98 08/06/18 10:45 08/06/18 11:15 08/06/18 12:00 Temperature 97.9 F Pulse Rate 90 91 H 100 H Respiratory Rate 18 18 17 Blood Pressure 163/80 H 146/76 H 159/66 H Pulse Oximetry 98 98 100 Intake & Output 08/05/18 08/06/18 08/06/18 18:59 06:59 18:59 Intake Total 4617.5 / 4617.5 617.5 / 617.5 Output Total 4050 / 4050 2200 / 2200 Balance 567.5 / 567.5 -1582.5 / -1582.5 Weight 88 kg Intake: IV 617.5 / 617.5 617.5 / 617.5 Zosyn 3.375 GM Premix 50 ML @ 100 / 100 100 / 100 100 mls/hr IV.SIG Q6H ROBBEI Rx#: [id number] Vancomycin Inj 1,750 MG In NS 517.5 / 517.5 517.5 / 517.5 Inj 500 ML @ 257.5 mls/hr IV. SIG Q12H ROBBIE Rx#:[id number] Oral 4000 / 4000 Output: Urine 4050 / 4050 2200 / 2200 Other: Date of Last Bowel Movement 08/04/18 # Bowel Movements 0 1 Narrative: GENERAL: Well-developed and well-nourished in no distress SKIN: Warm and dry. CARDIOVASCULAR: Regular rate and rhythm. RESPIRATORY: No accessory muscle use. Clear to auscultation. Breath sounds equal bilaterally. GASTROINTESTINAL: Abdomen soft, non-tender, nondistended. MUSCULOSKELETAL: Extremities without clubbing, cyanosis, or edema. No obvious deformities. Right shoulder has no soft tissue swelling or effusion. It has improved from his previous evaluation. He has restricted active range of motion primarily in forward flexion. He has painless internal and external rotation actively and passively. NEUROLOGICAL: Awake and alert. No obvious cranial nerve deficits. Motor grossly within normal limits. Five out of 5 muscle strength in the arms and legs. Normal speech. PSYCHIATRIC: Appropriate mood and affect; insight and judgment normal. Results - Labs CBC & Chem 7: 08/03/18 11:14 08/06/18 05:22 Laboratory Results - last 24 hr 08/05/18 08/05/18 08/06/18 16:36 20:34 02:22 BUN Creatinine Estimated GFR POC Glucose 90 222 H 123 H 08/06/18 08/06/18 08/06/18 05:22 05:22 07:51 BUN 23 H Creatinine 0.69 Estimated GFR Greater than 89 POC Glucose 76 08/06/18 08/06/18 08/06/18 12:03 12:25 12:54 BUN Creatinine Estimated GFR POC Glucose 62 L 70 84 Microbiology 07/21/18 08:41 Tissue - Hand Gram Stain - Final 07/21/18 08:41 Tissue - Hand Wound Culture - Preliminary Mycobacterium abscessus - Imaging Impressions Biopsy,Fluoroscopy Guided 08/06/18 00:00 CONCLUSION: 1. Uncomplicated needle biopsy of the L4 vertebral body as above. Samples were taken for histological evaluation and microbiological evaluation. - Procedures Flexor tenosynovectomy left palm/ring finger, incision and drainage mid palmar space left palm and exploration, periosteal biopsy proximal phalanx left ring finger Aspiration and Biopsy of lumbar discitis Assessment and Plan - Assessment (1) Osteomyelitis Code(s): M86.9 - Osteomyelitis, unspecified Status: Acute (2) Abscess of hand, left Code(s): L02.512 - Cutaneous abscess of left hand Status: Acute - Plan 58-year-old male admitted secondary to left hand abscess and severe back pain Right shoulder pain Risk for osteomyelitis or abscess formation Consider repeat imaging and/or aspiration of joint if worsening per ortho Currently with improved range of motion L4/L5 discitis Severe back pain Severe spinal stenosis Neurosurgery consulted S/p lumbar aspirate f/u culture negative to date. Tolerated biopsy today follow -up pathology. Continue pain management counseled regarding narcotics. Cellulitis of the left forefinger and left hand. Improved Tenosynovitis of the left hand. Post debridement. Culture has AFB sent to state lab for ID. Patient noted redness of the hand waxing and waning for the last couple of months. RECOMMENDATIONS: 1. Continue vancomycin. 2. Continue piperacillin/tazobactam. 3. Continue Biaxin while awaiting sensitivity. Monitor culture. Hx Right foot osteomyelitis ID following Atrial fibrillation Patient is status post ablation for this Eliquis on hold secondary to procedures and potential future procedures Diabetes mellitus type 2. Erratic secondary to patient's dietary noncompliance Hypoglycemic this morning secondary to n.p.o. status. Decrease Levemir to 30 units at bedtime. Diabetic education. Follow blood sugars Insulin sliding scale do not cover more than 2 units HS hypoglycemia protocol Diabetic diet Hyperlipidemia Continue present treatment Follow as an outpatient Hypertension Continue baseline treatment Follow blood pressures Adjust treatments as needed DVT Prophylaxis Lovenox on hold for 48 hours from biopsy Consulted physical therapy recommended home health care Discharge Planning: Needs ID clearance (1) Osteomyelitis Qualifiers: Osteomyelitis type: unspecified type Osteomyelitis location: hand Laterality : left Qualified Code(s): M86.9 - Osteomyelitis, unspecified
[2018-08-07] MEDS: HYDROmorphone PF Inj 2 MG/ML Vial IV.PUSH PRN ×5 (01:11→20:07)
[2018-08-07] MEDS: Piperacil/Tazo 3.375 GM Premix 50 ML IV.SIG SCH ×2 (02:05→08:55)
[2018-08-07] MEDS: Vancomycin Inj 1,750 MG in Sodium Chlor 0.9% Inj 500 ML IV.SIG SCH ×2 (02:30→13:19)
[2018-08-07] MEDS: Insulin NovoLOG Aspart Correctional Sugar Inj SQ SCH ×5 (03:06→20:07)
[2018-08-07] MEDS: Baclofen 10 MG Tablet PO SCH ×3 (05:08→22:39)
[2018-08-07 08:17] LABS: Baso % (Auto) 0.4 % (0.0-2.0); Eos # (Auto) 0.1 th/mm3 (0.0-0.4); Eos % (Auto) 0.9 % (0.0-4.0); Hematocrit 29.7 % (39.0-51.0); Hemoglobin 10.3 gm/dL (13.0-17.0); Lymph # (Auto) 1.4 th/mm3 (1.0-4.8); Mean Corpuscular HGB Conc 34.7 % (32.0-36.0); Mean Corpuscular Hemoglobin 28.1 pg (27.0-34.0); Mean Corpuscular Volume 81.1 fL (80.0-100.0); Mean Platelet Volume 6.7 fL (7.0-11.0); Mono # (Auto) 1.4 th/mm3 (0.0-0.9); Mono % (Auto) 11.9 % (0.0-8.0); Neut # (Auto) 8.8 th/mm3 (1.8-7.7); Neut % (Auto) 74.8 % (16.0-70.0); Platelet Count 400 th/mm3 (150-450); Red Blood Count 3.66 mil/mm3 (4.50-5.90); Red Cell Distribution Width 15.9 % (11.6-17.2); White Blood Count 11.7 th/mm3 (4.0-11.0)
[2018-08-07 08:46] LABS: Anion Gap 8 meq/L (5-15); Blood Urea Nitrogen 14 mg/dL (7-18); Calcium 9.2 mg/dL (8.5-10.1); Carbon Dioxide 27.9 meq/L (21.0-32.0); Chloride 100 meq/L (98-107); Glomerular Filtration Rate Greater Than 89 mL/min (>89); Glucose,Random 66 mg/dL (74-106); Magnesium 2.3 mg/dL (1.5-2.5); Sodium 136 meq/L (136-145)
[2018-08-07] MEDS: Insulin Detemir Inj 1,000 UNIT/10 ML Vial SQ SCH ×2 (08:55→20:07)
[2018-08-07] MEDS: Furosemide 20 MG Tablet PO SCH ×2 (08:57→20:06)
[2018-08-07] MEDS: Ramipril 2.5 MG Capsule PO SCH (08:57)
[2018-08-07] MEDS: dilTIAZem CD 240 MG Capsule PO SCH (08:57)
[2018-08-07] MEDS: Senna/Docusate Sodium 8.6/50 MG Tablet PO SCH ×2 (08:57→20:06)
[2018-08-07] MEDS: Collagenase Oint 30 GM Tube TOPICAL SCH (08:57)
[2018-08-07] MEDS: Enoxaparin Inj 40 MG/0.4 ML Syringe SQ SCH (10:30)
--- NOTE | 2018-08-07 11:56 | P.PNID ---
Subjective Remarks: Patient continues to have severe back pain. Laying in bed with the right leg over the side of the bed touching the ground the left leg extended. He reports that this is the only way he can get relief from the back pain. The left hand wound is dry. Culture from lumbar biopsy is pending. 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 Sensitivity not yet available. MRI shows L4-L5 discitis. Afebrile. White blood cell count is lower. This is a 58-year-old white male who presented to the emergency department, yesterday with complaints of back pain. The patient notes that he twisted his back while getting out of his motor vehicle and he also noted pain in his left hand. He had been experiencing pain and discomfort in the left ankle for a couple of weeks and he was supposed to see a hand doctor to have an assessment for surgery on the left hand, but he had some preop evaluation to be done and there was delay in getting that performed. He states that his left hand became painful and swollen, and there was redness extending up his wrist and arm, up to the elbow. He was admitted and started on IV antibiotics. An x-ray of the hand was performed and it showed moderate soft tissue swelling about the fourth digit adjacent to the proximal phalanx and linear densities along the medial and lateral cortex of the fourth proximal phalanx suggesting periosteal reaction. Past Medical History: PAST MEDICAL HISTORY: Gastroesophageal reflux disease, toe amputations, diabetes mellitus, hyperlipidemia, hypertension, atrial fibrillation, osteomyelitis involving the right foot. Allergies/Adverse Reactions: Allergies No Known Drug Allergies Allergy (Verified 08/06/18 15:59) none *MDRO Multi-Drug Resistant Organism Adverse Reaction (Unknown, Uncoded 06/16/17 16:34) MRSA MRSA (foot wound) - 02/12/15, 11/12/16, 03/29/17; (toe) - 03/2016 Objective Vital Signs 08/06/18 12:00 08/06/18 16:00 08/06/18 20:00 Temperature 97.9 F 98.4 F 98.9 F Pulse Rate 100 H 72 73 Respiratory Rate 17 17 16 Blood Pressure 159/66 H 113/58 L 128/53 L Pulse Oximetry 100 100 96 08/06/18 20:45 08/06/18 21:37 08/07/18 00:43 Temperature Pulse Rate Respiratory Rate 17 16 17 Blood Pressure Pulse Oximetry 08/07/18 00:44 08/07/18 01:41 08/07/18 04:47 Temperature 98.9 F Pulse Rate 87 Respiratory Rate 18 16 17 Blood Pressure 140/65 Pulse Oximetry 97 08/07/18 05:38 08/07/18 08:00 Temperature 98.9 F Pulse Rate 84 Respiratory Rate 16 17 Blood Pressure 162/76 H Pulse Oximetry 98 Intake & Output 08/06/18 08/07/18 08/07/18 18:59 06:59 18:59 Intake Total 2657.5 / 2657.5 1417.5 / 1417.5 50 / 50 Output Total 2200 / 2200 3400 / 3400 Balance 457.5 / 457.5 -1982.5 / -1982.5 50 / 50 Weight 88 kg Intake: IV 657.5 / 657.5 657.5 / 657.5 50 / 50 Zosyn 3.375 GM Premix 50 ML @ 100 / 100 100 / 100 50 / 50 100 mls/hr IV.SIG Q6H ROBBIE Rx#: [id number] Vancomycin Inj 1,750 MG In NS 557.5 / 557.5 557.5 / 557.5 Inj 500 ML @ 257.5 mls/hr IV. SIG Q12H ROBBIE Rx#:[id number] Oral 1999 / 1999 760 / 760 Output: Urine 2200 / 2200 3400 / 3400 Other: Date of Last Bowel Movement 08/06/18 # Bowel Movements 1 08/06/18 09:42 Tissue - Back Gram Stain - Final 08/06/18 09:42 Tissue - Back Wound Culture - Pending 08/06/18 09:42 Tissue - Back Fungal Smear - Final No fungal elements seen 08/06/18 09:42 Tissue - Back Fungal Culture - Pending 07/21/18 08:41 Tissue - Hand Gram Stain - Final 07/21/18 08:41 Tissue - Hand Wound Culture - Preliminary Mycobacterium abscessus 08/06/18 09:42 Tissue - Back Acid Fast Bacilli Smear - Pending 08/06/18 09:42 Tissue - Back Mycobacterial Culture - Pending 07/31/18 13:20 Tissue - Other Acid Fast Bacilli Smear - Final No acid fast bacilli seen 07/31/18 13:20 Tissue - Other Mycobacterial Culture - Pending 07/21/18 08:41 Tissue - Hand Fungal Smear - Final No fungal elements seen 07/21/18 08:41 Tissue - Hand Fungal Culture - Preliminary No growth in 2 weeks 07/21/18 08:41 Tissue - Hand Acid Fast Bacilli Smear - Final No acid fast bacilli seen 07/21/18 08:41 Tissue - Hand Mycobacterial Culture - Preliminary No growth in 2 weeks Lab - Hematology Results 08/07/18 07:04 WBC 11.7 H RBC 3.66 L Hgb 10.3 L Hct 29.7 L MCV 81.1 MCH 28.1 MCHC 34.7 RDW 15.9 Plt Count 400 D MPV 6.7 L Neut % (Auto) 74.8 H Lymph % (Auto) 12.0 [place] % (Auto) 11.9 H Eos % (Auto) 0.9 Baso % (Auto) 0.4 Neut # (Auto) 8.8 H Lymph # (Auto) 1.4 [place] # (Auto) 1.4 H Eos # (Auto) 0.1 Baso # (Auto) 0.0 WBC Differential . Differential Comment Auto diff final Lab - Chemistry Results 08/05/18 08/05/18 08/05/18 11:49 16:36 20:34 Sodium Potassium Chloride Carbon Dioxide Anion Gap BUN Creatinine Estimated GFR POC Glucose 150 H 90 222 H Random Glucose Calcium Magnesium 08/06/18 08/06/18 08/06/18 02:22 05:22 05:22 Sodium Potassium Chloride Carbon Dioxide Anion Gap BUN 23 H Creatinine 0.69 Estimated GFR Greater than 89 POC Glucose 123 H Random Glucose Calcium Magnesium 08/06/18 08/06/18 08/06/18 07:51 12:03 12:25 Sodium Potassium Chloride Carbon Dioxide Anion Gap BUN Creatinine Estimated GFR POC Glucose 76 62 L 70 Random Glucose Calcium Magnesium 08/06/18 08/06/18 08/06/18 12:54 16:31 20:17 Sodium Potassium Chloride Carbon Dioxide Anion Gap BUN Creatinine Estimated GFR POC Glucose 84 203 H 349 H Random Glucose Calcium Magnesium 08/07/18 08/07/18 08/07/18 03:06 07:04 08:45 Sodium 136 Potassium 4.0 Chloride 100 Carbon Dioxide 27.9 Anion Gap 8 BUN 14 Creatinine 0.58 L Estimated GFR Greater than 89 POC Glucose 110 123 H Random Glucose 66 L Calcium 9.2 Magnesium 2.3 Imaging: ITS Impressions Hand X-Ray 07/18/18 20:57 CONCLUSION: Soft tissues are and mild periosteal reaction the proximal phalanx of the fourth digit. Chest X-Ray 07/22/18 12:33 CONCLUSION: Under aerated with minimal parenchymal changes right base Lumbar Spine X-Ray 07/23/18 00:00 CONCLUSION: Moderate to severe degenerative changes are again seen. Lumbar Spine MRI 07/24/18 00:00 CONCLUSION: 1. Very prominent edema seen throughout the L4 and L5 vertebral bodies and at the disc level. This could be from exuberant degenerative change versus discitis. If this is from discitis, then involvement in the vertebral bodies/ osteomyelitis would need to be suspected. There is severe stenosis at this level. 2. Moderate stenosis at the L2-L3 level caused by disc bulge and facet hypertrophy. 3. Mild disc bulge at the L1-L2 and L5-S1 levels. Shoulder MRI 07/26/18 00:00 CONCLUSION: Cannot exclude septic arthritis and osteomyelitis. Needle Biopsy/Aspiration X-Ray 07/31/18 00:00 CONCLUSION: 1. Uncomplicated fluoroscopic guided aspiration of L4-5 disc space, as above. Biopsy,Fluoroscopy Guided 08/06/18 00:00 CONCLUSION: 1. Uncomplicated needle biopsy of the L4 vertebral body as above. Samples were taken for histological evaluation and microbiological evaluation. Physical Exam: PHYSICAL EXAMINATION: GENERAL: No acute distress. HEENT: No icterus. Pupils reactive to light. Pharynx mucosa is moist. NECK: Supple without adenopathy. LUNGS: Clear breath sounds. HEART: Regular S1, S2, without murmurs, rubs or gallops. ABDOMEN: Bowel sounds present, flat, soft, nontender. Tenderness of the lower back. EXTREMITIES: Left hand Post debridement. Wound is dry. No erythema. SKIN: No diffuse rash. NEUROLOGIC: No gross focal finding. PSYCHIATRIC: Calm and cooperative. Assessment and Plan - Plan IMPRESSION: 1. Cellulitis of the left forth finger and left hand. Resolved. 2. Tenosynovitis of the left hand. Post debridement. Mycobacterium abscesses. Patient noted redness of the hand waxing and waning for the last couple of months. 3. Discitis on of lumbar spine on MRI. I reviewed the MRI with radiology. The patient has obvious collapse of L4-L5 vertebral disc. Lumbar biopsy culture has no growth so far. Before the biopsy and therefore it may be difficult to recover gram-positive organisms. The sedimentation rate has normalized and I am uncertain whether this reflects response to treatment because one would not have expected the sed rate to normalize so quickly with osteomyelitis/discitis treatment. RECOMMENDATIONS: 1. Continue vancomycin. 2. Stop piperacillin/tazobactam. 3. Continue Biaxin. Monitor the sensitivity of mycobacteria. I spoke with microbiology who will be arranging for sensitivities to be done on the mycobacteria. 4. Continue to follow culture of the bone biopsy of lumbar spine. If the biopsy culture from the lumbar spine has no growth. I recommend treating the patient with 6 weeks of IV vancomycin until 09/17/2018. A PICC line will be placed for the IV antibiotics. Patient needs to follow-up with outpatient infectious disease Dr. Orellana open continue to monitor the cultures during treatment and also monitor vancomycin. Continue also to treat with Biaxin for the Mycobacterium and the sensitivity can be monitored as an outpatient and antibiotics adjustments made if necessary. Discussed plans with patient.
--- NOTE | 2018-08-07 15:26 | P.PN ---
Subjective Interval history: Follow-up lumbar discitis. Patient with no new complaints usual lower back pain. Able to increase activity. Discussed with infectious disease. If cultures and pathology negative by tomorrow can be discharged with 6 weeks IV vanco to with Dr Orellana. PICC to be ordered in am Physical Exam Vital signs: Vital Signs 08/06/18 16:00 08/06/18 20:00 08/06/18 20:45 Temperature 98.4 F 98.9 F Pulse Rate 72 73 Respiratory Rate 17 16 17 Blood Pressure 113/58 L 128/53 L Pulse Oximetry 100 96 08/06/18 21:37 08/07/18 00:43 08/07/18 00:44 Temperature 98.9 F Pulse Rate 87 Respiratory Rate 16 17 18 Blood Pressure 140/65 Pulse Oximetry 97 08/07/18 01:41 08/07/18 04:47 08/07/18 05:38 Temperature Pulse Rate Respiratory Rate 16 17 16 Blood Pressure Pulse Oximetry 08/07/18 08:00 08/07/18 12:00 Temperature 98.9 F 98.3 F Pulse Rate 84 87 Respiratory Rate 17 17 Blood Pressure 162/76 H 145/73 H Pulse Oximetry 98 100 Intake & Output 08/06/18 08/07/18 08/07/18 18:59 06:59 18:59 Intake Total 2657.5 / 2657.5 1417.5 / 1417.5 50 / 50 Output Total 2200 / 2200 3400 / 3400 Balance 457.5 / 457.5 -1982.5 / -1982.5 50 / 50 Weight 88 kg Intake: IV 657.5 / 657.5 657.5 / 657.5 50 / 50 Zosyn 3.375 GM Premix 50 ML @ 100 / 100 100 / 100 50 / 50 100 mls/hr IV.SIG Q6H ROBBIE Rx#: [id number] Vancomycin Inj 1,750 MG In NS 557.5 / 557.5 557.5 / 557.5 Inj 500 ML @ 257.5 mls/hr IV. SIG Q12H ROBBIE Rx#:[id number] Oral 1999 / 1999 760 / 760 Output: Urine 2200 / 2200 3400 / 3400 Other: Date of Last Bowel Movement 08/06/18 # Bowel Movements 1 Narrative: GENERAL: Well-developed and well-nourished in no distress SKIN: Warm and dry. CARDIOVASCULAR: Regular rate and rhythm. RESPIRATORY: No accessory muscle use. Clear to auscultation. Breath sounds equal bilaterally. GASTROINTESTINAL: Abdomen soft, non-tender, nondistended. MUSCULOSKELETAL: Extremities without clubbing, cyanosis, or edema. No obvious deformities. Right shoulder has no soft tissue swelling or effusion. It has improved from his previous evaluation. He has restricted active range of motion primarily in forward flexion. He has painless internal and external rotation actively and passively. Charcot deformity noted NEUROLOGICAL: Awake and alert. No obvious cranial nerve deficits. Motor grossly within normal limits. Five out of 5 muscle strength in the arms and legs. Normal speech. PSYCHIATRIC: Appropriate mood and affect; insight and judgment normal. Results - Labs CBC & Chem 7: 08/07/18 07:04 08/07/18 07:04 Laboratory Results - last 24 hr 08/06/18 08/06/18 08/07/18 16:31 20:17 03:06 WBC RBC Hgb Hct MCV MCH MCHC RDW Plt Count MPV Neut % (Auto) Lymph % (Auto) [place] % (Auto) Eos % (Auto) Baso % (Auto) Neut # (Auto) Lymph # (Auto) [place] # (Auto) Eos # (Auto) Baso # (Auto) WBC Differential Differential Comment Sodium Potassium Chloride Carbon Dioxide Anion Gap BUN Creatinine Estimated GFR POC Glucose 203 H 349 H 110 Random Glucose Calcium Magnesium 08/07/18 08/07/18 08/07/18 07:04 07:04 08:45 WBC 11.7 H RBC 3.66 L Hgb 10.3 L Hct 29.7 L MCV 81.1 MCH 28.1 MCHC 34.7 RDW 15.9 Plt Count 400 D MPV 6.7 L Neut % (Auto) 74.8 H Lymph % (Auto) 12.0 [place] % (Auto) 11.9 H Eos % (Auto) 0.9 Baso % (Auto) 0.4 Neut # (Auto) 8.8 H Lymph # (Auto) 1.4 [place] # (Auto) 1.4 H Eos # (Auto) 0.1 Baso # (Auto) 0.0 WBC Differential . Differential Comment Auto diff final Sodium 136 Potassium 4.0 Chloride 100 Carbon Dioxide 27.9 Anion Gap 8 BUN 14 Creatinine 0.58 L Estimated GFR Greater than 89 POC Glucose 123 H Random Glucose 66 L Calcium 9.2 Magnesium 2.3 08/07/18 12:34 WBC RBC Hgb Hct MCV MCH MCHC RDW Plt Count MPV Neut % (Auto) Lymph % (Auto) [place] % (Auto) Eos % (Auto) Baso % (Auto) Neut # (Auto) Lymph # (Auto) [place] # (Auto) Eos # (Auto) Baso # (Auto) WBC Differential Differential Comment Sodium Potassium Chloride Carbon Dioxide Anion Gap BUN Creatinine Estimated GFR POC Glucose 89 Random Glucose Calcium Magnesium Microbiology 07/31/18 13:20 Tissue - Other Acid Fast Bacilli Smear - Final No acid fast bacilli seen 07/31/18 13:20 Tissue - Other Mycobacterial Culture - Preliminary No growth in 1 week 07/31/18 13:20 Abscess - Back Fungal Smear - Final No fungal elements seen 07/31/18 13:20 Abscess - Back Fungal Culture - Preliminary No growth in 1 week 08/06/18 09:42 Tissue - Back Gram Stain - Final 08/06/18 09:42 Tissue - Back Wound Culture - Preliminary No growth in 24 hours 08/06/18 09:42 Tissue - Back Fungal Smear - Final No fungal elements seen - Imaging ITS Impressions Hand X-Ray 07/18/18 20:57 CONCLUSION: Soft tissues are and mild periosteal reaction the proximal phalanx of the fourth digit. Chest X-Ray 07/22/18 12:33 CONCLUSION: Under aerated with minimal parenchymal changes right base Lumbar Spine X-Ray 07/23/18 00:00 CONCLUSION: Moderate to severe degenerative changes are again seen. Lumbar Spine MRI 07/24/18 00:00 CONCLUSION: 1. Very prominent edema seen throughout the L4 and L5 vertebral bodies and at the disc level. This could be from exuberant degenerative change versus discitis. If this is from discitis, then involvement in the vertebral bodies/ osteomyelitis would need to be suspected. There is severe stenosis at this level. 2. Moderate stenosis at the L2-L3 level caused by disc bulge and facet hypertrophy. 3. Mild disc bulge at the L1-L2 and L5-S1 levels. Shoulder MRI 07/26/18 00:00 CONCLUSION: Cannot exclude septic arthritis and osteomyelitis. Needle Biopsy/Aspiration X-Ray 07/31/18 00:00 CONCLUSION: 1. Uncomplicated fluoroscopic guided aspiration of L4-5 disc space, as above. Biopsy,Fluoroscopy Guided 08/06/18 00:00 CONCLUSION: 1. Uncomplicated needle biopsy of the L4 vertebral body as above. Samples were taken for histological evaluation and microbiological evaluation. - Procedures Flexor tenosynovectomy left palm/ring finger, incision and drainage mid palmar space left palm and exploration, periosteal biopsy proximal phalanx left ring finger Aspiration and Biopsy of lumbar discitis Assessment and Plan - Assessment (1) Osteomyelitis Code(s): M86.9 - Osteomyelitis, unspecified Status: Acute (2) Abscess of hand, left Code(s): L02.512 - Cutaneous abscess of left hand Status: Acute - Plan 58-year-old male admitted secondary to left hand abscess and severe back pain Right shoulder pain Risk for osteomyelitis or abscess formation Consider repeat imaging and/or aspiration of joint if worsening per ortho Currently with improved range of motion L4/L5 discitis Severe back pain Severe spinal stenosis Neurosurgery consulted S/p lumbar aspirate f/u culture negative to date. Tolerated biopsy 08/06 follow- up pathology and cx NGTD. If cultures and pathology negative by tomorrow can be discharged with 6 weeks IV vanco to ff with Dr Orellana. PICC to be ordered in am Continue pain management counseled regarding narcotics. Cellulitis of the left forefinger and left hand. Improved Tenosynovitis of the left hand. Post debridement. Culture has AFB sent to state lab for ID. Patient noted redness of the hand waxing and waning for the last couple of months. RECOMMENDATIONS: 1. Continue vancomycin. 2. Continue piperacillin/tazobactam. 3. Continue Biaxin while awaiting sensitivity. Monitor culture. Hx Right foot osteomyelitis ID following Atrial fibrillation Patient is status post ablation for this Eliquis on hold secondary to procedures and potential future procedures Diabetes mellitus type 2. Erratic secondary to patient's dietary noncompliance Hypoglycemic this morning secondary to n.p.o. status. Decrease Levemir to 30 units at bedtime. Diabetic education. Follow blood sugars Insulin sliding scale do not cover more than 2 units HS hypoglycemia protocol Diabetic diet Hyperlipidemia Continue present treatment Follow as an outpatient Hypertension Continue baseline treatment Follow blood pressures Adjust treatments as needed DVT Prophylaxis Lovenox on hold (08/06) for 48 hours from biopsy Consulted physical therapy recommended home health care Discharge Planning: Needs ID clearance (1) Osteomyelitis Qualifiers: Osteomyelitis type: unspecified type Osteomyelitis location: hand Laterality : left Qualified Code(s): M86.9 - Osteomyelitis, unspecified
--- NOTE | 2018-08-07 16:10 | P.DIET ---
Nutritional Evaluation Type of nutrition evaluation: follow-up Screening comments: Pt request to speak w/the Dietitian Subjective Subjective Comments: Pt is eating 100% per Feeding Assessment in EMR. From 07/31 note: Pt says he is using the Ricardo bid and drinking the Glucerna Shakes TID. Brought forward from 07/22 note: Pt request for Ricardo. Pt reports that his right foot has been healing by taking Ricardo. Pt has his own supply of Ricardo packets in a plastic bag and says he would like to receive Ricardo here so he does not have to use his own personal supply. Objective - Diagnosis Osteomyelitis - Objective [place] body weight: 100 kg % IBW: 91 Body Weight Used for Calculations: Actual (90.7 kg(200-lb)) Energy Needs - Lower Range (kCal/kg): 22 Energy Needs - Upper Range (kCal/kg): 27 Lower Limit kCal/kg (kCals): 1,995 Upper Limit kCal/kg (kCals): 2,449 Lower Limit Protein Factor (Grams per Kg): 1.1 Upper Limit Protein Factor (Grams per Kg): 1.4 Lower Protein Needs (Protein): 100 Upper Protein Needs (Protein): 127 Fluid Factor (ml/kg): 27 Estimated Fluid Needs (ml): 2,449 Dietitian Reviewed in Medical Record: Current diet, Curent medications, Intake & Output, Labs, Medical history, Wound/DTI Diet Order: 2199 ADA Wound Care Note: See WOCN dated 07/23 Objective Comments: PMH: HTN, hyperlipidemia, GERD, DM, AFib s/p ablation, Osteomyelitis Feeding - Current PO Supplement Current Supplement: Glucerna Shake Current Frequency of Supplement: Three times a day Current kCals Provided by Supplement: 220 Current Protein Provided by Supplement: 10 Supplement Comments: Ricardo 1-pkt BID Assessment Assessment: Pt continues at nutritional risk r/t diagnosis and recent reported unintentional wt loss. Rec diet as Heart Healthy . Continue Ricardo 1-pkt bid to aid in wound healing. Continue Glucerna Shakes TID. Labs reviewed- monitor glucose. Wt changes noted. Wt on 08/03 = 96.8 kg, wt on 08/04 = 88 kg. Recommendations: 1. Rec diet as Heart Healthy 2. Continue Ricardo 1-pkt bid to aid in wound healing 3. Continue Glucerna Shakes TID 4. Dietitian following Dietitian to Monitor: Lab values, Glucose level, Supplement acceptance, Intake & Output, Weight change, PO Intake, Wound/skin status, Medical course
[2018-08-08] MEDS: HYDROmorphone PF Inj 2 MG/ML Vial IV.PUSH PRN ×5 (00:40→17:38)
[2018-08-08] MEDS: Vancomycin Inj 1,750 MG in Sodium Chlor 0.9% Inj 500 ML IV.SIG SCH ×2 (02:34→17:39)
[2018-08-08] MEDS: Baclofen 10 MG Tablet PO SCH ×3 (05:20→21:52)
[2018-08-08] MEDS: Senna/Docusate Sodium 8.6/50 MG Tablet PO SCH ×2 (08:16→21:52)
[2018-08-08] MEDS: Enoxaparin Inj 40 MG/0.4 ML Syringe SQ SCH (08:16)
[2018-08-08] MEDS: Furosemide 20 MG Tablet PO SCH ×2 (08:17→21:52)
[2018-08-08] MEDS: Ramipril 2.5 MG Capsule PO SCH (08:17)
[2018-08-08] MEDS: dilTIAZem CD 240 MG Capsule PO SCH (08:17)
[2018-08-08] MEDS: Insulin Detemir Inj 1,000 UNIT/10 ML Vial SQ SCH ×2 (08:17→21:52)
--- NOTE | 2018-08-08 09:29 | P.PN ---
Subjective Interval history: In bed appears innad No fever ro chills No pain No n/v Feels better PICC placed . Discussed with Dr Ignacio ID for DC plan Physical Exam Vital signs: Vital Signs 08/07/18 12:00 08/07/18 15:57 08/07/18 20:00 Temperature 98.3 F 97.5 F L 98.8 F Pulse Rate 87 91 H 85 Respiratory Rate 17 16 18 Blood Pressure 145/73 H 116/57 L 117/66 Pulse Oximetry 100 100 100 08/08/18 00:00 08/08/18 07:57 Temperature 97.5 F L 98.0 F Pulse Rate 91 H 86 Respiratory Rate 19 21 Blood Pressure 120/81 119/65 Pulse Oximetry 99 99 Intake & Output 08/07/18 08/08/18 08/08/18 18:59 06:59 18:59 Intake Total 567.5 / 567.5 Balance 567.5 / 567.5 Weight 88.2 kg Intake: IV 567.5 / 567.5 517.5 / 517.5 Zosyn 3.375 GM Premix 50 ML @ 50 / 50 100 mls/hr IV.SIG Q6H [facility] Rx#: [id number] Vancomycin Inj 1,750 MG In NS 517.5 / 517.5 517.5 / 517.5 Inj 500 ML @ 257.5 mls/hr IV. SIG Q12H [facility] Rx#:[id number] Oral 1500 / 1500 Other: # Voids 6 Date of Last Bowel Movement 08/06/18 Narrative: GENERAL: Well-developed and well-nourished in no distress SKIN: Warm and dry. CARDIOVASCULAR: Regular rate and rhythm. RESPIRATORY: No accessory muscle use. Clear to auscultation. Breath sounds equal bilaterally. GASTROINTESTINAL: Abdomen soft, non-tender, nondistended. MUSCULOSKELETAL: Extremities without clubbing, cyanosis, or edema. No obvious deformities. Right shoulder has no soft tissue swelling or effusion. It has improved from his previous evaluation. He has restricted active range of motion primarily in forward flexion. He has painless internal and external rotation actively and passively. Charcot deformity noted NEUROLOGICAL: Awake and alert. No obvious cranial nerve deficits. Motor grossly within normal limits. Five out of 5 muscle strength in the arms and legs. Normal speech. PSYCHIATRIC: Appropriate mood and affect; insight and judgment normal. Results - Labs CBC & Chem 7: 08/07/18 07:04 08/07/18 07:04 Laboratory Results - last 24 hr 08/07/18 08/07/18 08/07/18 12:34 18:29 20:05 ESR POC Glucose 89 97 90 08/08/18 08/08/18 08/08/18 02:38 05:14 08:15 ESR 104 H POC Glucose 175 H 75 Microbiology 07/31/18 13:20 Tissue - Other Acid Fast Bacilli Smear - Final No acid fast bacilli seen 07/31/18 13:20 Tissue - Other Mycobacterial Culture - Preliminary No growth in 1 week 07/31/18 13:20 Abscess - Back Fungal Smear - Final No fungal elements seen 07/31/18 13:20 Abscess - Back Fungal Culture - Preliminary No growth in 1 week 08/06/18 09:42 Tissue - Back Gram Stain - Final 08/06/18 09:42 Tissue - Back Wound Culture - Preliminary No growth in 24 hours - Procedures Flexor tenosynovectomy left palm/ring finger, incision and drainage mid palmar space left palm and exploration, periosteal biopsy proximal phalanx left ring finger Aspiration and Biopsy of lumbar discitis Assessment and Plan - Assessment (1) Osteomyelitis Code(s): M86.9 - Osteomyelitis, unspecified Status: Acute (2) Abscess of hand, left Code(s): L02.512 - Cutaneous abscess of left hand Status: Acute - Plan 58-year-old male admitted secondary to left hand abscess and severe back pain Right shoulder pain Risk for osteomyelitis or abscess formation Consider repeat imaging and/or aspiration of joint if worsening per ortho Currently with improved range of motion L4/L5 discitis Severe back pain Severe spinal stenosis Neurosurgery consulted S/p lumbar aspirate f/u culture negative to date. Tolerated biopsy 08/06 follow- up pathology and cx NGTD. If cultures and pathology negative by tomorrow can be discharged with 6 weeks IV vanco to ff with Dr Orellana. PICC to be ordered in am Continue pain management counseled regarding narcotics. Cellulitis of the left forefinger and left hand. Improved Tenosynovitis of the left hand. Post debridement. Culture has AFB sent to state lab for ID. Patient noted redness of the hand waxing and waning for the last couple of months. RECOMMENDATIONS: 1. Continue vancomycin. 2. Continue piperacillin/tazobactam. 3. Continue Biaxin while awaiting sensitivity. Monitor culture. Hx Right foot osteomyelitis ID following Atrial fibrillation Patient is status post ablation for this Eliquis on hold secondary to procedures and potential future procedures Diabetes mellitus type 2. Erratic secondary to patient's dietary noncompliance Hypoglycemic this morning secondary to n.p.o. status. Decrease Levemir to 30 units at bedtime. Diabetic education. Follow blood sugars Insulin sliding scale do not cover more than 2 units HS hypoglycemia protocol Diabetic diet Hyperlipidemia Continue present treatment Follow as an outpatient Hypertension Continue baseline treatment Follow blood pressures Adjust treatments as needed DVT Prophylaxis Lovenox on hold (08/06) for 48 hours from biopsy Consulted physical therapy recommended home health care Discharge Planning: DC home with home health IV abx infusion To follow up as OP with PCP and consultants (1) Osteomyelitis Qualifiers: Osteomyelitis location: hand Laterality: left
[2018-08-08] MEDS: Insulin NovoLOG Aspart Correctional Sugar Inj SQ SCH ×4 (09:36→21:52)
--- NOTE | 2018-08-08 09:39 | P.DS ---
Date of admission: 07/18/18 22:32 Primary care physician: Reilly Jaime MD Brief History from admission: 58-year-old male with past medical history significant for hypertension, hyperlipidemia, GERD, diabetes mellitus and atrial fibrillation status post ablation presents to the emergency department for evaluation of back pain. The patient reports he was getting out of the car when he twisted his back and has had severe back pain since that time. He has a left swollen hand that is worse on the fourth digit and the dorsal surface of the hand with surrounding erythema that extends up the arm. The patient reports he has previously been seen by hand surgery, Dr. Slaughter, he wanted to do surgery on his hand but was unable to due to "an abnormal EKG." The patient is a poor historian. He reports he has been on 28 different antibiotics over the past several months. He also reports that he has been seen by infectious disease for osteomyelitis of the right foot but is not currently taking any antibiotics at this time. He denies any recent fever/chills. No chest pain or shortness of breath. No abdominal pain. No nausea/vomiting/diarrhea. DS: Diagnosis - Discharge Diagnosis (1) Osteomyelitis Status: Acute (2) Abscess of hand, left Status: Acute DS: Medications - Discharge Medications Prescriptions: baclofen 10 mg PO Q8HR #90 tab DS: Summary Hospital Course: 58-year-old male admitted secondary to left hand abscess and severe back pain Right shoulder pain Risk for osteomyelitis or abscess formation Consider repeat imaging and/or aspiration of joint if worsening per ortho Currently with improved range of motion L4/L5 discitis Severe back pain Severe spinal stenosis Neurosurgery consulted S/p lumbar aspirate f/u culture negative to date. Tolerated biopsy 08/06 follow- up pathology and cx NGTD. If cultures and pathology negative by tomorrow can be discharged with 6 weeks IV vanco to ff with Dr Orellana. PICC to be ordered in am Continue pain management counseled regarding narcotics. Cellulitis of the left forefinger and left hand. Improved Tenosynovitis of the left hand. Post debridement. Culture has AFB sent to state lab for ID. Patient noted redness of the hand waxing and waning for the last couple of months. RECOMMENDATIONS: 1. Continue vancomycin. 2. Continue piperacillin/tazobactam. 3. Continue Biaxin while awaiting sensitivity. Monitor culture. Hx Right foot osteomyelitis ID following Atrial fibrillation Patient is status post ablation for this Eliquis on hold secondary to procedures and potential future procedures Diabetes mellitus type 2. Erratic secondary to patient's dietary noncompliance Hypoglycemic this morning secondary to n.p.o. status. Decrease Levemir to 30 units at bedtime. Diabetic education. Follow blood sugars Insulin sliding scale do not cover more than 2 units HS hypoglycemia protocol Diabetic diet Hyperlipidemia Continue present treatment Follow as an outpatient Hypertension Continue baseline treatment Follow blood pressures Adjust treatments as needed DVT Prophylaxis Lovenox on hold (08/06) for 48 hours from biopsy Consulted physical therapy recommended home health care Discharge Planning: DC home with home health IV abx infusion To follow up as OP with PCP and consultants Continue vancomycin for venous outpatient for 6 weeks. Orders written on antibiotic form. Dose of 1750 mg 12 hours until 09/17/2018. Continue Biaxin p.o. Monitor the sensitivity of mycobacteria. PICC line for the IV antibiotics. Follow-up with outpatient infectious disease Dr. Orellana as well - Time Spent with Patient Total time spent providing and/or coordinating discharge services: Greater than 30 minutes - Quality: VTE Deep Vein Thrombosis/Pulmonary Embolism Present on Admission: No Exam Vital signs: Vital Signs 08/07/18 12:00 08/07/18 15:57 08/07/18 20:00 Temperature 98.3 F 97.5 F L 98.8 F Pulse Rate 87 91 H 85 Respiratory Rate 17 16 18 Blood Pressure 145/73 H 116/57 L 117/66 Pulse Oximetry 100 100 100 08/08/18 00:00 08/08/18 07:57 Temperature 97.5 F L 98.0 F Pulse Rate 91 H 86 Respiratory Rate 19 21 Blood Pressure 120/81 119/65 Pulse Oximetry 99 99 Intake & Output 08/07/18 08/08/18 08/08/18 18:59 06:59 18:59 Intake Total 567.5 / 567.5 Balance 567.5 / 567.5 Weight 88.2 kg Intake: IV 567.5 / 567.5 517.5 / 517.5 Zosyn 3.375 GM Premix 50 ML @ 50 / 50 100 mls/hr IV.SIG Q6H [facility] Rx#: [id number] Vancomycin Inj 1,750 MG In NS 517.5 / 517.5 517.5 / 517.5 Inj 500 ML @ 257.5 mls/hr IV. SIG Q12H [facility] Rx#:[id number] Oral 1500 / 1500 Other: # Voids 6 Date of Last Bowel Movement 08/06/18 Narrative: GENERAL: Well-developed and well-nourished in no distress CARDIOVASCULAR: Regular rate and rhythm. RESPIRATORY: No accessory muscle use. Clear to auscultation. Breath sounds equal bilaterally. GASTROINTESTINAL: Abdomen soft, non-tender, nondistended. MUSCULOSKELETAL: Extremities without clubbing, cyanosis, or edema. No obvious deformities. Right shoulder has no soft tissue swelling or effusion. It has improved from his previous evaluation. He has restricted active range of motion primarily in forward flexion. He has painless internal and external rotation actively and passively. Charcot deformity noted NEUROLOGICAL: Awake and alert. No obvious cranial nerve deficits. Motor grossly within normal limits. Five out of 5 muscle strength in the arms and legs. Normal speech. PSYCHIATRIC: Appropriate mood and affect; insight and judgment normal. Results Procedures completed during hospitalization: Flexor tenosynovectomy left palm/ring finger, incision and drainage mid palmar space left palm and exploration, periosteal biopsy proximal phalanx left ring finger Aspiration and Biopsy of lumbar discitis Completed studies during hospitalization: Pending at discharge 07/21/18 08:07 Surgical [PTH] Routine Labs on day of discharge: Labs from last 24 hours 08/08/18 08/08/18 08/08/18 08:15 05:14 02:38 ESR 104 H POC Glucose 75 175 H 08/07/18 08/07/18 08/07/18 20:05 18:29 12:34 ESR POC Glucose 90 97 89 Preliminary micro results at discharge 07/31/18 13:20 Mycobacterial Culture - Preliminary Tissue - Other No growth in 1 week 07/31/18 13:20 Fungal Culture - Preliminary Abscess - Back No growth in 1 week 08/06/18 09:42 Wound Culture - Preliminary Tissue - Back No growth in 24 hours 07/21/18 08:41 Wound Culture - Preliminary Tissue - Hand Mycobacterium abscessus 07/21/18 08:41 Fungal Culture - Preliminary Tissue - Hand No growth in 2 weeks 07/21/18 08:41 Mycobacterial Culture - Preliminary Tissue - Hand No growth in 2 weeks - Impressions ITS Impressions Hand X-Ray 07/18/18 20:57 CONCLUSION: Soft tissues are and mild periosteal reaction the proximal phalanx of the fourth digit. Chest X-Ray 07/22/18 12:33 CONCLUSION: Under aerated with minimal parenchymal changes right base Lumbar Spine X-Ray 07/23/18 00:00 CONCLUSION: Moderate to severe degenerative changes are again seen. Lumbar Spine MRI 07/24/18 00:00 CONCLUSION: 1. Very prominent edema seen throughout the L4 and L5 vertebral bodies and at the disc level. This could be from exuberant degenerative change versus discitis. If this is from discitis, then involvement in the vertebral bodies/ osteomyelitis would need to be suspected. There is severe stenosis at this level. 2. Moderate stenosis at the L2-L3 level caused by disc bulge and facet hypertrophy. 3. Mild disc bulge at the L1-L2 and L5-S1 levels. Shoulder MRI 07/26/18 00:00 CONCLUSION: Cannot exclude septic arthritis and osteomyelitis. Needle Biopsy/Aspiration X-Ray 07/31/18 00:00 CONCLUSION: 1. Uncomplicated fluoroscopic guided aspiration of L4-5 disc space, as above. Biopsy,Fluoroscopy Guided 08/06/18 00:00 CONCLUSION: 1. Uncomplicated needle biopsy of the L4 vertebral body as above. Samples were taken for histological evaluation and microbiological evaluation. Discharge Plan - Discharge Disposition Patient Disposition: /Home Health Service - Discharge Condition Condition: Stable - Discharge Order Discharge Orders: Discharge Order (Routine); Ordered 08/08/18 Ordered By: Sharri Granger - Discharge Details Anticipated Discharge Date: 08/08/18 - Physicians Team Primary Care Provider: Reilly Jaime Attending Provider: Sharri Granger Other Providers: Slim Slaughter MD ; Brandon Ignacio MD ; [facility] ; Natalie Figueroa MD ; [facility] ; Gerber Martini MD ; Bean Zamora MD ; [facility]
[2018-08-08] MEDS: Collagenase Oint 30 GM Tube TOPICAL SCH (10:35)
--- NOTE | 2018-08-08 13:34 | P.DCO ---
Post Hospital Infusion Therapy Location of Infusion Therapy: Home Health Care IV Infusion Order Patient Weight: 88.2 kg - Additional Information Venous Access: PICC Line Additional Instructions: [x] Peripheral flush and dressing changes per protocol [x] Implanted port and central line inspector: * Implanted port: 10 ml Normal Saline followed by 5 ml Heparin 100 units/ml Heparin flush after each use and monthly to maintain. [] May leave port accessed during therapy. [] May leave peripheral site accessed for duration of therapy. [x] If patient has SOB or respiratory distress, check oxygen saturation. If less than 90% or clinical signs of respiratory distress, administer oxygen at 2 L/min. via nasal cannula and notify physician. [x] Anaphylaxis/Reaction orders: * Stop infusion. * Keep IV line open with saline flush. * Notify physician. * Monitor vital signs every 15 minutes until symptoms resolve. * Check Oxygen saturation; Oxygen at 2 L/min. via nasal cannula if less than 90% or clinical signs of respiratory distress. * Administer diphenhydramine (Benadryl) 25 mg IV STAT, (unless patient has received as pre-med). May repeat once, if necessary. * Solu-Cortef 250 mg IVP over 30-60 seconds, use 100 mg vials for each dissolution. * Epinephrine (1mg/1 ml) 0.3 mg subcutaneously or IVP now with any signs of respiratory distress. * Check with physician for new additional pre-med orders if patient is re- challenged or re-treated. [x] May remove PICC line when treatment complete, after confirming with Physician. [x] If the patient is admitted to the hospital, the ED, or transferred via [facility] , complete transfer form including medication reconciliation order sheet. Weekly Labs: BMP, Vancomycin Trough Additional Information: Call with vancomycin level greater than 20 or creatinine greater than 2.0 Hold vancomycin if creatinine greater than 2.[address] Ignacio [phone]. Fax number [phone]. Follow-up with infectious disease Dr. Orellana in 1 week. Allergies No Known Drug Allergies Allergy (Verified 08/06/18 15:59) none *MDRO Multi-Drug Resistant Organism Adverse Reaction (Unknown, Uncoded 06/16/17 16:34) MRSA MRSA (foot wound) - 02/12/15, 11/12/16, 03/29/17; (toe) - 03/2016
--- NOTE | 2018-08-08 13:43 | P.DCO ---
- Diagnosis (1) Osteomyelitis - Physical Therapy Order: Evaluate and treat - Home Health Nursing Order: Medical education, Signs/symptoms of disease process, Medication education-adverse effect, Nursing assessment with vital signs - Certification I have seen patient Tyron Sandoval on 08/08/18. My clinical findings support the need for the requested home health care services because: Limited mobility due to disease progression, Patient has SOB I certify that my clinical findings support that this patient is homebound because: Post-op weakness (1) Osteomyelitis Qualifiers: Qualified Code(s): M86.9 - Osteomyelitis, unspecified
--- NOTE | 2018-08-08 13:44 | P.PNID ---
Subjective Remarks: Patient continues to have severe back pain. Laying in bed with the right leg over the side of the bed touching the ground the left leg extended. Reports that this is the only way he can get relief from the back pain. The left hand wound is dry. Mild erythema around the incision of the fourth finger. Culture from lumbar biopsy is pending. 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 Sensitivity not yet available. MRI shows L4-L5 discitis. Afebrile. White blood cell count is lower. This is a 58-year-old white male who presented to the emergency department, yesterday with complaints of back pain. The patient notes that he twisted his back while getting out of his motor vehicle and he also noted pain in his left hand. He had been experiencing pain and discomfort in the left ankle for a couple of weeks and he was supposed to see a hand doctor to have an assessment for surgery on the left hand, but he had some preop evaluation to be done and there was delay in getting that performed. He states that his left hand became painful and swollen, and there was redness extending up his wrist and arm, up to the elbow. He was admitted and started on IV antibiotics. An x-ray of the hand was performed and it showed moderate soft tissue swelling about the fourth digit adjacent to the proximal phalanx and linear densities along the medial and lateral cortex of the fourth proximal phalanx suggesting periosteal reaction. Past Medical History: PAST MEDICAL HISTORY: Gastroesophageal reflux disease, toe amputations, diabetes mellitus, hyperlipidemia, hypertension, atrial fibrillation, osteomyelitis involving the right foot. Allergies/Adverse Reactions: Allergies No Known Drug Allergies Allergy (Verified 08/06/18 15:59) none *MDRO Multi-Drug Resistant Organism Adverse Reaction (Unknown, Uncoded 06/16/17 16:34) MRSA MRSA (foot wound) - 02/12/15, 11/12/16, 03/29/17; (toe) - 03/2016 Objective Vital Signs 08/07/18 15:57 08/07/18 20:00 08/08/18 00:00 Temperature 97.5 F L 98.8 F 97.5 F L Pulse Rate 91 H 85 91 H Respiratory Rate 16 18 19 Blood Pressure 116/57 L 117/66 120/81 Pulse Oximetry 100 100 99 08/08/18 07:57 08/08/18 12:00 Temperature 98.0 F 97.3 F L Pulse Rate 86 80 Respiratory Rate 21 17 Blood Pressure 119/65 127/72 Pulse Oximetry 99 100 Intake & Output 08/07/18 08/08/18 08/08/18 18:59 06:59 18:59 Intake Total 567.5 / 567.5 Balance 567.5 / 567.5 Weight 88.2 kg 88.2 kg Intake: IV 567.5 / 567.5 517.5 / 517.5 Zosyn 3.375 GM Premix 50 ML @ 50 / 50 100 mls/hr IV.SIG Q6H ROBBIE Rx#: [id number] Vancomycin Inj 1,750 MG In NS 517.5 / 517.5 517.5 / 517.5 Inj 500 ML @ 257.5 mls/hr IV. SIG Q12H ROBBIE Rx#:[id number] Oral 1500 / 1500 Other: # Voids 6 Date of Last Bowel Movement 08/06/18 08/07/18 08/06/18 09:42 Tissue - Back Gram Stain - Final 08/06/18 09:42 Tissue - Back Wound Culture - Preliminary No growth in 48 hours 07/31/18 13:20 Tissue - Other Acid Fast Bacilli Smear - Final No acid fast bacilli seen 07/31/18 13:20 Tissue - Other Mycobacterial Culture - Preliminary No growth in 1 week 07/31/18 13:20 Abscess - Back Fungal Smear - Final No fungal elements seen 07/31/18 13:20 Abscess - Back Fungal Culture - Preliminary No growth in 1 week 08/06/18 09:42 Tissue - Back Fungal Smear - Final No fungal elements seen 08/06/18 09:42 Tissue - Back Fungal Culture - Pending 07/21/18 08:41 Tissue - Hand Gram Stain - Final 07/21/18 08:41 Tissue - Hand Wound Culture - Preliminary Mycobacterium abscessus 08/06/18 09:42 Tissue - Back Acid Fast Bacilli Smear - Pending 08/06/18 09:42 Tissue - Back Mycobacterial Culture - Pending Lab - Hematology Results 08/07/18 08/08/18 07:04 05:14 WBC 11.7 H RBC 3.66 L Hgb 10.3 L Hct 29.7 L MCV 81.1 MCH 28.1 MCHC 34.7 RDW 15.9 Plt Count 400 D MPV 6.7 L Neut % (Auto) 74.8 H Lymph % (Auto) 12.0 [place] % (Auto) 11.9 H Eos % (Auto) 0.9 Baso % (Auto) 0.4 Neut # (Auto) 8.8 H Lymph # (Auto) 1.4 [place] # (Auto) 1.4 H Eos # (Auto) 0.1 Baso # (Auto) 0.0 WBC Differential . Differential Comment Auto diff final ESR 104 H Lab - Chemistry Results 08/06/18 08/06/18 08/07/18 16:31 20:17 03:06 Sodium Potassium Chloride Carbon Dioxide Anion Gap BUN Creatinine Estimated GFR POC Glucose 203 H 349 H 110 Random Glucose Calcium Magnesium 08/07/18 08/07/18 08/07/18 07:04 08:45 12:34 Sodium 136 Potassium 4.0 Chloride 100 Carbon Dioxide 27.9 Anion Gap 8 BUN 14 Creatinine 0.58 L Estimated GFR Greater than 89 POC Glucose 123 H 89 Random Glucose 66 L Calcium 9.2 Magnesium 2.3 08/07/18 08/07/18 08/08/18 18:29 20:05 02:38 Sodium Potassium Chloride Carbon Dioxide Anion Gap BUN Creatinine Estimated GFR POC Glucose 97 90 175 H Random Glucose Calcium Magnesium 08/08/18 08/08/18 08:15 12:35 Sodium Potassium Chloride Carbon Dioxide Anion Gap BUN Creatinine Estimated GFR POC Glucose 75 205 H Random Glucose Calcium Magnesium Imaging: ITS Impressions Hand X-Ray 07/18/18 20:57 CONCLUSION: Soft tissues are and mild periosteal reaction the proximal phalanx of the fourth digit. Chest X-Ray 07/22/18 12:33 CONCLUSION: Under aerated with minimal parenchymal changes right base Lumbar Spine X-Ray 07/23/18 00:00 CONCLUSION: Moderate to severe degenerative changes are again seen. Lumbar Spine MRI 07/24/18 00:00 CONCLUSION: 1. Very prominent edema seen throughout the L4 and L5 vertebral bodies and at the disc level. This could be from exuberant degenerative change versus discitis. If this is from discitis, then involvement in the vertebral bodies/ osteomyelitis would need to be suspected. There is severe stenosis at this level. 2. Moderate stenosis at the L2-L3 level caused by disc bulge and facet hypertrophy. 3. Mild disc bulge at the L1-L2 and L5-S1 levels. Shoulder MRI 07/26/18 00:00 CONCLUSION: Cannot exclude septic arthritis and osteomyelitis. Needle Biopsy/Aspiration X-Ray 07/31/18 00:00 CONCLUSION: 1. Uncomplicated fluoroscopic guided aspiration of L4-5 disc space, as above. Biopsy,Fluoroscopy Guided 08/06/18 00:00 CONCLUSION: 1. Uncomplicated needle biopsy of the L4 vertebral body as above. Samples were taken for histological evaluation and microbiological evaluation. Physical Exam: PHYSICAL EXAMINATION: GENERAL: No acute distress. HEENT: No icterus. Pupils reactive to light. Pharynx mucosa is moist. NECK: Supple without adenopathy. LUNGS: Clear breath sounds. HEART: Regular S1, S2, without murmurs, rubs or gallops. ABDOMEN: Bowel sounds present, flat, soft, nontender. Tenderness of the lower back. EXTREMITIES: Left hand Post debridement. Wound is dry. Erythema at the palmar aspect around the incision. Swelling of the finger as well. SKIN: No diffuse rash. NEUROLOGIC: No gross focal finding. PSYCHIATRIC: Calm and cooperative. Assessment and Plan - Plan IMPRESSION: 1. Cellulitis of the left forth finger and left hand. Resolved. 2. Tenosynovitis of the left hand. Post debridement. Mycobacterium abscesses. sensitivity pending. Patient noted redness of the hand waxing and waning for the last couple of months. 3. Discitis on of lumbar spine on MRI. I reviewed the MRI with radiology. The patient has obvious collapse of L4-L5 vertebral disc. Lumbar biopsy culture has no growth so far. Before the biopsy and therefore it may be difficult to recover gram-positive organisms. The sedimentation rate has normalized and I am uncertain whether this reflects response to treatment because one would not have expected the sed rate to normalize so quickly with osteomyelitis/discitis treatment. RECOMMENDATIONS: 1. Continue vancomycin for venous outpatient for 6 weeks. Orders written on antibiotic form. Dose of 1750 mg Q24HR until 09/17/2018. 2. Continue Biaxin p.o. Monitor the sensitivity of mycobacteria. 3. PICC line ordered for the IV antibiotics. Follow-up with outpatient infectious disease Dr. Orellana. Continue also to treat with Biaxin for the Mycobacterium and the sensitivity can be monitored as an outpatient and antibiotics adjustments made if necessary. Discussed plans with patient and case management and Dr. Granger.
--- NOTE | 2018-08-08 13:50 | P.DCO ---
- Diagnosis (1) Osteomyelitis (2) Diabetes (3) Strain of lumbar region - Physical Therapy Order: Evaluate and treat - Home Health Nursing Order: Medical education, Signs/symptoms of disease process, Medication education-adverse effect, Wound care and dressing changes (change dressing daily ), Nursing assessment with vital signs, IV medication administration - Certification I have seen patient Tyron Sandoval on 08/08/18. My clinical findings support the need for the requested home health care services because: Limited mobility due to disease progression, Patient has SOB I certify that my clinical findings support that this patient is homebound because: Post-op weakness (1) Osteomyelitis Qualifiers: Osteomyelitis location: hand Laterality: left (2) Diabetes Qualifiers: Diabetes mellitus type: type 2 Diabetes mellitus intermediate insulin use: with intermediate use Diabetes mellitus complication status: with unspecified complications Qualified Code(s): E11.8 - Type 2 diabetes mellitus with unspecified complications; Z79.4 - intermediate (current) use of insulin (3) Strain of lumbar region Qualifiers: Encounter type: initial encounter Qualified Code(s): S39.012A - Strain of muscle, fascia and tendon of lower back, initial encounter
--- NOTE | 2018-08-08 13:57 | P.DCO ---
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 [] May leave port accessed during therapy. [] May leave peripheral site accessed for duration of therapy. [x] If patient has SOB or respiratory distress, check oxygen saturation. If less than 90% or clinical signs of respiratory distress, administer oxygen at 2 L/min. via nasal cannula and notify physician. [x] Anaphylaxis/Reaction orders: * Stop infusion. * Keep IV line open with saline flush. * Notify physician. * Monitor vital signs every 15 minutes until symptoms resolve. * Check Oxygen saturation; Oxygen at 2 L/min. via nasal cannula if less than 90% or clinical signs of respiratory distress. * Administer diphenhydramine (Benadryl) 25 mg IV STAT, (unless patient has received as pre-med). May repeat once, if necessary. * Solu-Cortef 250 mg IVP over 30-60 seconds, use 100 mg vials for each dissolution. * Epinephrine (1mg/1 ml) 0.3 mg subcutaneously or IVP now with any signs of respiratory distress. * Check with physician for new additional pre-med orders if patient is re- challenged or re-treated. [x] May remove PICC line when treatment complete, after confirming with Physician. [x] If the patient is admitted to the hospital, the ED, or transferred via [facility] , complete transfer form including medication reconciliation order sheet. Weekly Labs: BMP, CBC w/diff, Vancomycin Trough Additional Information: Call with vancomycin level greater than 20 or creatinine greater than 2.0 Hold vancomycin if creatinine greater than 2.[address] Ignacio . Fax number [phone]. Follow-up with Dr. Orellana in 1 week. Allergies No Known Drug Allergies Allergy (Verified 08/06/18 15:59) none *MDRO Multi-Drug Resistant Organism Adverse Reaction (Unknown, Uncoded 06/16/17 16:34) MRSA MRSA (foot wound) - 02/12/15, 11/12/16, 03/29/17; (toe) - 03/2016
[2018-08-08] MEDS ORDERED: Pharmacy Ordered Lab Info OTHER ONE ×3 (14:45→15:30)
[2018-08-08] MEDS ORDERED: Heparin Central Flush 100 UNIT/ML 5 ML Vial IV.FLUSH PRN (17:39)
[2018-08-09] MEDS: Vancomycin Inj 1,750 MG in Sodium Chlor 0.9% Inj 500 ML IV.SIG SCH ×2 (02:11→15:46)
[2018-08-09] MEDS: HYDROmorphone PF Inj 2 MG/ML Vial IV.PUSH PRN (05:20)
[2018-08-09] MEDS: Baclofen 10 MG Tablet PO SCH ×2 (05:20→14:04)
[2018-08-09] MEDS: Enoxaparin Inj 40 MG/0.4 ML Syringe SQ SCH (08:47)
[2018-08-09] MEDS: Ramipril 2.5 MG Capsule PO SCH (08:47)
[2018-08-09] MEDS: Insulin Detemir Inj 1,000 UNIT/10 ML Vial SQ SCH (08:47)
[2018-08-09] MEDS: Senna/Docusate Sodium 8.6/50 MG Tablet PO SCH (08:47)
[2018-08-09] MEDS: dilTIAZem CD 240 MG Capsule PO SCH (08:47)
[2018-08-09] MEDS: Furosemide 20 MG Tablet PO SCH (08:47)
[2018-08-09] MEDS: Insulin NovoLOG Aspart Correctional Sugar Inj SQ SCH ×3 (08:47→17:27)
[2018-08-09] MEDS: Collagenase Oint 30 GM Tube TOPICAL SCH (08:48)
[2018-08-09] MEDS ORDERED: Heparin Central Flush 100 UNIT/ML 5 ML Vial IV.FLUSH SCH (09:00)
--- NOTE | 2018-08-09 09:03 | P.PN ---
Subjective Interval history: In the bed. Friend at bedside. Denies cp, sob, n/v/d/c. Awaiting arrangements Has PICC line no fever or chills Physical Exam Vital signs: Vital Signs 08/08/18 12:00 08/08/18 18:46 08/08/18 19:00 Temperature 97.3 F L Pulse Rate 80 Respiratory Rate 17 18 18 Blood Pressure 127/72 Pulse Oximetry 100 08/08/18 20:00 08/09/18 00:00 08/09/18 01:34 Temperature 97.8 F 98.0 F 98.3 F Pulse Rate 75 86 103 H Respiratory Rate 19 18 19 Blood Pressure 133/68 134/74 121/88 Pulse Oximetry 100 100 97 08/09/18 08:00 Temperature 97.8 F Pulse Rate 88 Respiratory Rate 17 Blood Pressure 134/76 Pulse Oximetry 100 Intake & Output 08/08/18 08/09/18 08/09/18 18:59 06:59 18:59 Intake Total 2035.0 / 2035.0 Output Total 400 / 400 Balance 1635.0 / 1635.0 Weight 88.2 kg 88.2 kg Intake: IV 1035.0 / 1035.0 Vancomycin Inj 1,750 MG In NS 1035.0 / 1035.0 Inj 500 ML @ 257.5 mls/hr IV. SIG Q12H ROBBIE Rx#:[id number] Oral 1000 / 1000 Output: Urine 400 / 400 Other: # Voids 4 Date of Last Bowel Movement 08/07/18 # Bowel Movements 1 Narrative: GENERAL: Well-developed and well-nourished in no distress SKIN: Warm and dry. CARDIOVASCULAR: Regular rate and rhythm. RESPIRATORY: No accessory muscle use. Clear to auscultation. Breath sounds equal bilaterally. GASTROINTESTINAL: Abdomen soft, non-tender, nondistended. MUSCULOSKELETAL: Extremities without clubbing, cyanosis, or edema. No obvious deformities. Right shoulder has no soft tissue swelling or effusion. It has improved from his previous evaluation. He has restricted active range of motion primarily in forward flexion. He has painless internal and external rotation actively and passively. Charcot deformity noted NEUROLOGICAL: Awake and alert. No obvious cranial nerve deficits. Motor grossly within normal limits. Five out of 5 muscle strength in the arms and legs. Normal speech. PSYCHIATRIC: Appropriate mood and affect; insight and judgment normal. Results - Labs CBC & Chem 7: 08/07/18 07:04 08/07/18 07:04 Laboratory Results - last 24 hr 08/08/18 08/08/18 08/08/18 12:35 17:36 18:00 POC Glucose 205 H 259 H Vancomycin Trough 21.9 H 08/08/18 08/09/18 08/09/18 21:50 01:29 07:50 POC Glucose 207 H 163 H 211 H Vancomycin Trough Microbiology 08/06/18 09:42 Tissue - Back Gram Stain - Final 08/06/18 09:42 Tissue - Back Wound Culture - Final No growth in 72 hours (aerobically and anaerobically ) 08/06/18 09:42 Tissue - Back Acid Fast Bacilli Smear - Final No acid fast bacilli seen - Procedures Flexor tenosynovectomy left palm/ring finger, incision and drainage mid palmar space left palm and exploration, periosteal biopsy proximal phalanx left ring finger Aspiration and Biopsy of lumbar discitis Assessment and Plan - Assessment (1) Osteomyelitis Code(s): M86.9 - Osteomyelitis, unspecified Status: Acute (2) Abscess of hand, left Code(s): L02.512 - Cutaneous abscess of left hand Status: Acute - Plan 58-year-old male admitted secondary to left hand abscess and severe back pain Right shoulder pain Risk for osteomyelitis or abscess formation Consider repeat imaging and/or aspiration of joint if worsening per ortho Currently with improved range of motion L4/L5 discitis Severe back pain Severe spinal stenosis Neurosurgery consulted S/p lumbar aspirate f/u culture negative to date. Tolerated biopsy 08/06 follow- up pathology and cx NGTD. If cultures and pathology negative by tomorrow can be discharged with 6 weeks IV vanco to ff with Dr Orellana. PICC to be ordered in am Continue pain management counseled regarding narcotics. Cellulitis of the left forefinger and left hand. Improved Tenosynovitis of the left hand. Post debridement. Culture has AFB sent to state lab for ID. Patient noted redness of the hand waxing and waning for the last couple of months. RECOMMENDATIONS: 1. Continue vancomycin. 2. Continue piperacillin/tazobactam. 3. Continue Biaxin while awaiting sensitivity. Monitor culture. Hx Right foot osteomyelitis ID following Atrial fibrillation Patient is status post ablation for this Eliquis on hold secondary to procedures and potential future procedures Diabetes mellitus type 2. Erratic secondary to patient's dietary noncompliance Hypoglycemic this morning secondary to n.p.o. status. Decrease Levemir to 30 units at bedtime. Diabetic education. Follow blood sugars Insulin sliding scale do not cover more than 2 units HS hypoglycemia protocol Diabetic diet Hyperlipidemia Continue present treatment Follow as an outpatient Hypertension Continue baseline treatment Follow blood pressures Adjust treatments as needed DVT Prophylaxis Lovenox on hold (08/06) for 48 hours from biopsy Consulted physical therapy recommended home health care Discharge Planning: DC home with home health IV abx infusion To follow up as OP with PCP and consultants Continue vancomycin for venous outpatient for 6 weeks. Orders written on antibiotic form. Dose of 1750 mg 12 hours until 09/17/2018. Continue Biaxin p.o. Monitor the sensitivity of mycobacteria. PICC line was placed for the IV antibiotics administration as OP. Follow-up with outpatient infectious disease Dr. Orellana as well (1) Osteomyelitis Qualifiers: Osteomyelitis location: hand Laterality: left
[2018-08-09 13:36] VITALS: BP 125/65; PULSE 84; RESP 16; TEMP 98; O2SAT 97
[2018-08-09] MEDS ORDERED: Pharmacy Ordered Lab Info OTHER ONE (13:45)
[2018-08-09] MEDS ORDERED: Vancomycin Inj 1,500 MG in Sodium Chlor 0.9% Inj 500 ML IV.SIG SCH (20:00)
[2018-08-11] MEDS ORDERED: Pharmacy Ordered Lab Info OTHER ONE (07:45)
== END 2018-08-09 19:01 | disposition home health service (06) ==
LOC: NEPC 18:53 → NEDA 22:32 → N07 23:54
PROVIDERS: ADMIT Hospitalist; ATTEND Hospitalist

== ENCOUNTER 2018-08-26 23:23 | Inpatient (IN) ==
[2018-08-26] MEDS ORDERED: diazePAM 5 MG Tablet PO ONE (23:41)
[2018-08-27] MEDS ORDERED: Vancomycin Inj 1 GM/200 ML PIGGYBACK IV.SIG ONE (02:46)
[2018-08-27] MEDS ORDERED: Morphine Inj 4 MG/ML Vial IV.PUSH ONE (02:46)
[2018-08-27] MEDS ORDERED: Vancomycin Inj 1,750 MG in Sodium Chlor 0.9% Inj 500 ML IV.SIG STA (02:48)
[2018-08-27 03:41] LABS: Baso # (Auto) 0.1 th/mm3 (0.0-0.2); Baso % (Auto) 0.5 % (0.0-2.0); Eos # (Auto) 0.1 th/mm3 (0.0-0.4); Eos % (Auto) 0.4 % (0.0-4.0); Hematocrit 29.7 % (39.0-51.0); Hemoglobin 9.9 gm/dL (13.0-17.0); Lymph # (Auto) 1.5 th/mm3 (1.0-4.8); Lymph % (Auto) 6.3 % (9.0-44.0); Mean Corpuscular HGB Conc 33.3 % (32.0-36.0); Mean Corpuscular Hemoglobin 25.9 pg (27.0-34.0); Mean Corpuscular Volume 77.8 fL (80.0-100.0); Mean Platelet Volume 6.4 fL (7.0-11.0); Mono # (Auto) 1.4 th/mm3 (0.0-0.9); Mono % (Auto) 5.8 % (0.0-8.0); Neut # (Auto) 20.8 th/mm3 (1.8-7.7); Platelet Count 638 th/mm3 (150-450); Red Blood Count 3.81 mil/mm3 (4.50-5.90); Red Cell Distribution Width 15.5 % (11.6-17.2); White Blood Count 23.9 th/mm3 (4.0-11.0)
--- NOTE | 2018-08-27 03:41 | XR ---
EXAM DATE: 08/27/2018 2:55 AM EDT AGE/SEX: 58 years / Male INDICATIONS: Bone infarction. CLINICAL DATA: This is the patient's initial encounter. Patient reports that signs and symptoms have been present for 3 days and indicates a pain score of 8/10. MEDICAL/SURGICAL HISTORY: Hypertension. Diabetes mellitus type II. None. COMPARISON: No prior exams available for comparison. FINDINGS: Bony structures are intact and in normal alignment. Osseous density is normal. Diffuse vascular calci fications. Soft tissues are unremarkable. No radiopaque foreign bodies seen. CONCLUSION: 1. Unremarkable radiographs of the left hand. Electronically signed by: Jeromy Carranza MD 08/27/2018 3:39 AM EDT
[2018-08-27 03:45] LABS: Alanine Aminotransferase 22 U/L (12-78); Albumin 2.9 g/dL (3.4-5.0); Anion Gap 11 meq/L (5-15); Aspartate Aminotransferase 27 U/L (15-37); Blood Urea Nitrogen 42 mg/dL (7-18); Calcium 10.4 mg/dL (8.5-10.1); Carbon Dioxide 29.3 meq/L (21.0-32.0); Chloride 97 meq/L (98-107); Glomerular Filtration Rate 65 mL/min (>89); Glucose,Random 103 mg/dL (74-106); Potassium 4.5 meq/L (3.5-5.1); Sodium 137 meq/L (136-145)
[2018-08-27 03:47] LABS: Alkaline Phosphatase 157 U/L (45-117); Total Protein 8.7 g/dL (6.4-8.2)
--- NOTE | 2018-08-27 04:08 | ED ---
HPI General Chief Complaint: Back Pain/Injury Stated Complaint: Medical Time Seen by Provider: 08/26/18 23:28 History of Present Illness HPI Narrative: Patient is a 58-year-old male who is got multiple complaints complaining of back pain complaining of hand pain says he recently had a surgery and he was supposed to be on vancomycin he had a PICC line in his arm up until yesterday he said that came out he had been giving himself 1750 mg of Vanco daily but now he is without the PICC line. Patient also has multiple complaints chronic back pain leg pain and foot swelling he keeps perseverating telling me that multiple tangential stories about his health. In the ER he is sweating profusely he says he always sweats he seems to be in constant rocking motion whether this is a secondary side effect of possible long-term psychiatric medications he also tells me he has had a bacteremia that he was being treated for otherwise he seems to perseverate on his back and then his stories wander off into multiple other complaints Related Data Home Medications Medication Instructions Recorded Confirmed apixaban [Eliquis] 5 mg PO BID 06/09/18 07/18/18 diltiazem HCl 240 mg PO DAILY 06/09/18 07/22/18 furosemide 20 mg PO BID 06/09/18 07/18/18 insulin glargine [Lantus Solostar 50 unit SUB-Q BID 06/09/18 07/18/18 U-100 Insulin] pantoprazole [Protonix] 40 mg PO DAILY 06/09/18 07/18/18 ramipril 2.5 mg PO DAILY 06/09/18 07/18/18 oxycodone 30 mg PO Q4H PRN 07/22/18 07/22/18 Previous Rx's Medication Instructions Recorded baclofen 10 mg PO Q8HR #90 tab 08/04/18 clarithromycin 500 mg PO Q12H #56 tab 08/08/18 Allergies Allergy/AdvReac Type Severity Reaction Status Date / Time No Known Drug Allergies Allergy none Verified 08/06/18 15:59 *MDRO Multi-Drug Resistant AdvReac Unknown MRSA Uncoded 06/16/17 16:34 Organism Review of Systems ROS: all other systems reviewed are negative (pt has multiple complaints and apparent tangential thinking that leads to long linear stories of all his medical issues past and present. pressure speech) [facility] Social History Social History Substance History: No History of Abuse Second Hand Smoke Exposure: No Smoking Status: Never smoker How Often Do You Have a Drink Containing Alcohol: Never Recent Travel in [facility] within the Last 8 Weeks: No Recent Out of Country Travel within the Last 8 Weeks: No Immunization History Tetanus Immunization: >5 Years Hx Influenza Vaccine This Season: No Exam Narrative Exam Narrative: GENERAL: sweating profusely and pressure speech and intermittent shouting whining , slightly bizarre presentation SKIN: Warm and sweating profusely Skin on hand has abnormal skin wilkinson surface red and slight deformity to fourth finger MCP area HEAD: Atraumatic. Normocephalic. EYES: Pupils equal and round. No scleral icterus. No injection or drainage. ENT: No nasal bleeding or discharge. Mucous membranes pink and moist. NECK: Trachea midline. No JVD. CARDIOVASCULAR: Regular rate and rhythm. RESPIRATORY: No accessory muscle use. Clear to auscultation. Breath sounds equal bilaterally. GASTROINTESTINAL: Abdomen soft, non-tender, nondistended. Hepatic and splenic margins not palpable. MUSCULOSKELETAL: Extremities left hand swelling deformity post operative recent .4th wilkinson MCP area deformities. NEUROLOGICAL: Awake and alert. No obvious cranial nerve deficits. Motor grossly within normal limits. Five out of 5 muscle strength in the arms and legs. Normal speech. PSYCHIATRIC: bizarre affect pressure speech tangential history presentation. Course Initial Documented Vital Signs Pulse Rate 99 H 08/26/18 23:28 Respiratory Rate 18 08/26/18 23:28 Blood Pressure 108/61 08/26/18 23:28 Pulse Oximetry 98 08/26/18 23:28 Last Documented Vital Signs Temperature 99.7 F H 08/30/18 04:00 Pulse Rate 87 08/30/18 04:00 Respiratory Rate 18 08/30/18 04:00 Blood Pressure 147/74 H 08/30/18 04:00 Pulse Oximetry 97 08/30/18 04:00 Medical Decision Making [facility] Narrative Medical decision making narrative: wbc 23 and missing vanco doses possible sepsis will IV vanco 1750 mg and admit for I D and hand consults Medical Screen Exam Complete: Yes Emergency Medical Condition: Yes Differential Diagnosis Differential Diagnosis: sepsis from hand bone infection , vs psychogenic somatization, vs back pain radiculopathy vs recent non complinace with VAnco for osteo PICC line malfunction and self removal and sychiatric illness interfering with medical compliance and treatment Lab Data Result diagrams: 08/29/18 07:59 08/29/18 07:59 Lab Results 08/27/18 08/27/18 08/27/18 Range/Units 03:00 03:00 06:15 WBC 23.9 H (4.0-11.0) th/mm3 RBC 3.81 L (4.50-5.90) mil/mm3 Hgb 9.9 L (13.0-17.0) gm/dL Hct 29.7 L (39.0-51.0) % MCV 77.8 L (80.0-100.0) fL MCH 25.9 L (27.0-34.0) pg MCHC 33.3 (32.0-36.0) % RDW 15.5 (11.6-17.2) % Plt Count 638 H D (150-450) th/mm3 MPV 6.4 L (7.0-11.0) fL Neut % (Auto) 87.0 H (16.0-70.0) % Lymph % (Auto) 6.3 L (9.0-44.0) % [place] % (Auto) 5.8 (0.0-8.0) % Eos % (Auto) 0.4 (0.0-4.0) % Baso % (Auto) 0.5 (0.0-2.0) % Neut # (Auto) 20.8 H (1.8-7.7) th/mm3 Lymph # (Auto) 1.5 (1.0-4.8) th/mm3 [place] # (Auto) 1.4 H (0.0-0.9) th/mm3 Eos # (Auto) 0.1 (0.0-0.4) th/mm3 Baso # (Auto) 0.1 (0.0-0.2) th/mm3 WBC Differential . Differential Comment Auto diff final Sodium 137 (136-145) meq/L Potassium 4.5 (3.5-5.1) meq/L Chloride 97 L (98-107) meq/L Carbon Dioxide 29.3 (21.0-32.0) meq/L Anion Gap 11 (5-15) meq/L BUN 42 H (7-18) mg/dL Creatinine 1.15 (0.60-1.30) mg/dL Estimated GFR 65 L (>89) mL/min POC Glucose (68-110) mg/dl Random Glucose 103 (74-106) mg/dL Lactic Acid 0.9 (0.4-2.0) mmol/L Calcium 10.4 H (8.5-10.1) mg/dL Total Bilirubin 0.3 (0.2-1.0) mg/dL AST 27 (15-37) U/L ALT 22 (12-78) U/L Alkaline Phosphatase 157 H (45-117) U/L Total Protein 8.7 H (6.4-8.2) g/dL Albumin 2.9 L (3.4-5.0) g/dL Vancomycin Trough (5.0-10.0) mcg/mL 08/27/18 08/27/18 08/27/18 Range/Units 12:51 16:26 21:08 WBC (4.0-11.0) th/mm3 RBC (4.50-5.90) mil/mm3 Hgb (13.0-17.0) gm/dL Hct (39.0-51.0) % MCV (80.0-100.0) fL MCH (27.0-34.0) pg MCHC (32.0-36.0) % RDW (11.6-17.2) % Plt Count (150-450) th/mm3 MPV (7.0-11.0) fL Neut % (Auto) (16.0-70.0) % Lymph % (Auto) (9.0-44.0) % [place] % (Auto) (0.0-8.0) % Eos % (Auto) (0.0-4.0) % Baso % (Auto) (0.0-2.0) % Neut # (Auto) (1.8-7.7) th/mm3 Lymph # (Auto) (1.0-4.8) th/mm3 [place] # (Auto) (0.0-0.9) th/mm3 Eos # (Auto) (0.0-0.4) th/mm3 Baso # (Auto) (0.0-0.2) th/mm3 WBC Differential Differential Comment Sodium (136-145) meq/L Potassium (3.5-5.1) meq/L Chloride (98-107) meq/L Carbon Dioxide (21.0-32.0) meq/L Anion Gap (5-15) meq/L BUN (7-18) mg/dL Creatinine (0.60-1.30) mg/dL Estimated GFR (>89) mL/min POC Glucose 282 H 271 H 263 H (68-110) mg/dl Random Glucose (74-106) mg/dL Lactic Acid (0.4-2.0) mmol/L Calcium (8.5-10.1) mg/dL Total Bilirubin (0.2-1.0) mg/dL AST (15-37) U/L ALT (12-78) U/L Alkaline Phosphatase (45-117) U/L Total Protein (6.4-8.2) g/dL Albumin (3.4-5.0) g/dL Vancomycin Trough (5.0-10.0) mcg/mL 08/28/18 08/28/18 08/28/18 Range/Units 08:09 08:28 12:45 WBC 17.8 H (4.0-11.0) th/mm3 RBC 3.93 L (4.50-5.90) mil/mm3 Hgb 9.8 L (13.0-17.0) gm/dL Hct 31.0 L (39.0-51.0) % MCV 78.8 L (80.0-100.0) fL MCH 25.1 L (27.0-34.0) pg MCHC 31.8 L (32.0-36.0) % RDW 15.7 (11.6-17.2) % Plt Count 539 H (150-450) th/mm3 MPV 5.9 L (7.0-11.0) fL Neut % (Auto) 87.2 H (16.0-70.0) % Lymph % (Auto) 5.9 L (9.0-44.0) % [place] % (Auto) 6.4 (0.0-8.0) % Eos % (Auto) 0.2 (0.0-4.0) % Baso % (Auto) 0.3 (0.0-2.0) % Neut # (Auto) 15.5 H (1.8-7.7) th/mm3 Lymph # (Auto) 1.1 (1.0-4.8) th/mm3 [place] # (Auto) 1.1 H (0.0-0.9) th/mm3 Eos # (Auto) 0.0 (0.0-0.4) th/mm3 Baso # (Auto) 0.0 (0.0-0.2) th/mm3 WBC Differential . Differential Comment Auto diff final Sodium 135 L (136-145) meq/L Potassium 3.2 L D (3.5-5.1) meq/L Chloride 99 (98-107) meq/L Carbon Dioxide 25.6 (21.0-32.0) meq/L Anion Gap 10 (5-15) meq/L BUN 18 (7-18) mg/dL Creatinine 0.63 (0.60-1.30) mg/dL Estimated GFR Greater than 89 (>89) mL/min POC Glucose 285 H (68-110) mg/dl Random Glucose 217 H D (74-106) mg/dL Lactic Acid (0.4-2.0) mmol/L Calcium 9.3 D (8.5-10.1) mg/dL Total Bilirubin (0.2-1.0) mg/dL AST (15-37) U/L ALT (12-78) U/L Alkaline Phosphatase (45-117) U/L Total Protein (6.4-8.2) g/dL Albumin (3.4-5.0) g/dL Vancomycin Trough (5.0-10.0) mcg/mL 08/28/18 08/28/18 08/29/18 Range/Units 16:35 18:14 07:20 WBC (4.0-11.0) th/mm3 RBC (4.50-5.90) mil/mm3 Hgb (13.0-17.0) gm/dL Hct (39.0-51.0) % MCV (80.0-100.0) fL MCH (27.0-34.0) pg MCHC (32.0-36.0) % RDW (11.6-17.2) % Plt Count (150-450) th/mm3 MPV (7.0-11.0) fL Neut % (Auto) (16.0-70.0) % Lymph % (Auto) (9.0-44.0) % [place] % (Auto) (0.0-8.0) % Eos % (Auto) (0.0-4.0) % Baso % (Auto) (0.0-2.0) % Neut # (Auto) (1.8-7.7) th/mm3 Lymph # (Auto) (1.0-4.8) th/mm3 [place] # (Auto) (0.0-0.9) th/mm3 Eos # (Auto) (0.0-0.4) th/mm3 Baso # (Auto) (0.0-0.2) th/mm3 WBC Differential Differential Comment Sodium (136-145) meq/L Potassium (3.5-5.1) meq/L Chloride (98-107) meq/L Carbon Dioxide (21.0-32.0) meq/L Anion Gap (5-15) meq/L BUN (7-18) mg/dL Creatinine (0.60-1.30) mg/dL Estimated GFR (>89) mL/min POC Glucose 137 H 120 H 203 H (68-110) mg/dl Random Glucose (74-106) mg/dL Lactic Acid (0.4-2.0) mmol/L Calcium (8.5-10.1) mg/dL Total Bilirubin (0.2-1.0) mg/dL AST (15-37) U/L ALT (12-78) U/L Alkaline Phosphatase (45-117) U/L Total Protein (6.4-8.2) g/dL Albumin (3.4-5.0) g/dL Vancomycin Trough (5.0-10.0) mcg/mL 08/29/18 08/29/18 08/29/18 Range/Units 07:59 07:59 10:20 WBC 12.9 H (4.0-11.0) th/mm3 RBC 3.77 L (4.50-5.90) mil/mm3 Hgb 9.4 L (13.0-17.0) gm/dL Hct 29.7 L (39.0-51.0) % MCV 78.8 L (80.0-100.0) fL MCH 25.0 L (27.0-34.0) pg MCHC 31.7 L (32.0-36.0) % RDW 15.6 (11.6-17.2) % Plt Count 520 H (150-450) th/mm3 MPV 6.0 L (7.0-11.0) fL Neut % (Auto) 82.8 H (16.0-70.0) % Lymph % (Auto) 9.2 (9.0-44.0) % [place] % (Auto) 7.1 (0.0-8.0) % Eos % (Auto) 0.5 (0.0-4.0) % Baso % (Auto) 0.4 (0.0-2.0) % Neut # (Auto) 10.7 H (1.8-7.7) th/mm3 Lymph # (Auto) 1.2 (1.0-4.8) th/mm3 [place] # (Auto) 0.9 (0.0-0.9) th/mm3 Eos # (Auto) 0.1 (0.0-0.4) th/mm3 Baso # (Auto) 0.1 (0.0-0.2) th/mm3 WBC Differential . Differential Comment Auto diff final Sodium 137 (136-145) meq/L Potassium 4.0 D (3.5-5.1) meq/L Chloride 102 (98-107) meq/L Carbon Dioxide 26.8 (21.0-32.0) meq/L Anion Gap 8 (5-15) meq/L BUN 18 (7-18) mg/dL Creatinine 0.71 (0.60-1.30) mg/dL Estimated GFR Greater than 89 (>89) mL/min POC Glucose (68-110) mg/dl Random Glucose 202 H (74-106) mg/dL Lactic Acid (0.4-2.0) mmol/L Calcium 8.5 D (8.5-10.1) mg/dL Total Bilirubin (0.2-1.0) mg/dL AST (15-37) U/L ALT (12-78) U/L Alkaline Phosphatase (45-117) U/L Total Protein (6.4-8.2) g/dL Albumin (3.4-5.0) g/dL Vancomycin Trough 13.2 H (5.0-10.0) mcg/mL 08/29/18 08/29/18 08/29/18 Range/Units 11:45 16:57 20:28 WBC (4.0-11.0) th/mm3 RBC (4.50-5.90) mil/mm3 Hgb (13.0-17.0) gm/dL Hct (39.0-51.0) % MCV (80.0-100.0) fL MCH (27.0-34.0) pg MCHC (32.0-36.0) % RDW (11.6-17.2) % Plt Count (150-450) th/mm3 MPV (7.0-11.0) fL Neut % (Auto) (16.0-70.0) % Lymph % (Auto) (9.0-44.0) % [place] % (Auto) (0.0-8.0) % Eos % (Auto) (0.0-4.0) % Baso % (Auto) (0.0-2.0) % Neut # (Auto) (1.8-7.7) th/mm3 Lymph # (Auto) (1.0-4.8) th/mm3 [place] # (Auto) (0.0-0.9) th/mm3 Eos # (Auto) (0.0-0.4) th/mm3 Baso # (Auto) (0.0-0.2) th/mm3 WBC Differential Differential Comment Sodium (136-145) meq/L Potassium (3.5-5.1) meq/L Chloride (98-107) meq/L Carbon Dioxide (21.0-32.0) meq/L Anion Gap (5-15) meq/L BUN (7-18) mg/dL Creatinine (0.60-1.30) mg/dL Estimated GFR (>89) mL/min POC Glucose 190 H 159 H 220 H (68-110) mg/dl Random Glucose (74-106) mg/dL Lactic Acid (0.4-2.0) mmol/L Calcium (8.5-10.1) mg/dL Total Bilirubin (0.2-1.0) mg/dL AST (15-37) U/L ALT (12-78) U/L Alkaline Phosphatase (45-117) U/L Total Protein (6.4-8.2) g/dL Albumin (3.4-5.0) g/dL Vancomycin Trough (5.0-10.0) mcg/mL Imaging Data Radiologist's impression: Hand X-Ray 08/27/18 02:55 CONCLUSION: 1. Unremarkable radiographs of the left hand. Discharge Plan Discharge Disposition Patient Disposition: 30 Still Patient Physicians Team ED Provider: Tomás Jurado Primary Care Provider: Primary Care Zamzam Yeboah Attending Provider: Marcia Nichole Other Providers: Zee Villalba ; Slim Slaughter Discharge Interventions Interventions: ED Discharge Assessment Last Done: 08/27/18 07:46 Vital Signs Last Done: 08/27/18 05:43 Status ED Status: Left Department Discharge Information Discharge Date/Time: 08/27/18 07:40
[2018-08-27] MEDS ORDERED: Vancomycin Consult Pharmacy OTHER PRN (06:08)
[2018-08-27] MEDS ORDERED: Bisacodyl 10 MG Supp RECTAL PRN (06:09)
[2018-08-27] MEDS: Senna/Docusate Sodium 8.6/50 MG Tablet PO SCH ×2 (08:03→20:59)
--- NOTE | 2018-08-27 11:31 | P.HP ---
History of Present Illness Primary Care Physician: No Primary Care Physician Chief Complaint: Back pain History of Present Illness: 58-year-old male with history of HTN, HLD, GERD, A. fib, DM, recent hospitalization for lumbar spine discitis currently on outpatient IV vancomycin via PICC, presents with complaints of back pain, hand pain, and dislodgment of PICC line. The patient is a very poor historian. He currently complains of diffuse low back pain but is unable to further describe the pain. He repeatedly falls asleep during conversation. Therefore most of the history is obtained from EMR. The patient was recently hospitalized for L4-5 discitis, discharged on outpatient IV Vanco 1750mg daily infusion, however he presented back to the ER with complaints of recurrent back pain and dislodgement of his PICC. The patient cannot tell me when his PICC was dislodged, consistently states "I don' t know". Denies recent fevers/chills. He also reported left hand pain and swelling to ER MD. It is very difficult obtaining any further history from the patient. No other complaints reported. Review of Systems All other systems reviewed negative except as stated in HPI PMFSH - History History Provided By: Patient - Medical History Medical History: Medical History (Last Reviewed 08/27/18 @ 16:59 by Nelli Reilly) Amputated toe GERD (gastroesophageal reflux disease) Hyperlipidemia Afib Back pain Diabetes Hypertension Osteomyelitis - Surgical History Surgical History: Surgical History (Last Reviewed 08/27/18 @ 16:59 by Nelli Reilly) H/O foot surgery - Family History Family History: Family History (Last Reviewed 08/27/18 @ 16:59 by Nelli Reilly) Other Coronary artery disease - Social History I have reviewed the patient's Social History: Yes - Tobacco History Second Hand Smoke Exposure: No Smoking Status: Never smoker - Alcohol History How Often Do You Have a Drink Containing Alcohol: Never - Substance Use History Substance History: No History of Abuse - Immunization History Tetanus Immunization: >5 Years Hx Influenza Vaccine This Season: No Medications and Allergies Active Medications: Active Medications Al Hydroxide/Mg Hydroxide (Milk Of Magnesia Liq) 30 ml PO Q12H PRN PRN Reason: Mild Constipation Bisacodyl (Dulcolax Supp) 10 mg RECTAL DAILY PRN PRN Reason: SEVERE CONSITIPATION Sodium Chloride (Ns Inj) 1,000 mls @ 100 mls/hr IV.CONT .Q10H [facility] Lactulose (Lactulose Liq) 30 ml PO DAILY PRN PRN Reason: SEVERE CONSITIPATION Morphine Sulfate (Morphine Inj) 2 mg IV.PUSH Q3H PRN PRN Reason: pain > 4 Pharmacy Profile Note (Vancomycin Consult Pharmacy) 1 each OTHER UNSCH PRN PRN Reason: Pharmacy to dose Senna/Docusate Sodium (Aliyah-Colace) 1 tab PO BID ROBBIE Last Admin: 08/27/18 08:03 Dose: 1 tab Sennosides (Senokot) 17.2 mg PO Q12H PRN PRN Reason: Moderate Constipation Allergies Allergy/AdvReac Type Severity Reaction Status Date / Time No Known Drug Allergies Allergy none Verified 08/06/18 15:59 *MDRO Multi-Drug Resistant AdvReac Unknown MRSA Uncoded 06/16/17 16:34 Organism Home Medications Medication Instructions Recorded Confirmed Type apixaban [Eliquis] 5 mg PO BID 06/09/18 07/18/18 History diltiazem HCl 240 mg PO DAILY 06/09/18 07/22/18 History furosemide 20 mg PO BID 06/09/18 07/18/18 History insulin glargine [Lantus Solostar 50 unit SUB-Q BID 06/09/18 07/18/18 History U-100 Insulin] pantoprazole [Protonix] 40 mg PO DAILY 06/09/18 07/18/18 History ramipril 2.5 mg PO DAILY 06/09/18 07/18/18 History oxycodone 30 mg PO Q4H PRN 07/22/18 07/22/18 History Exam Vital signs: Vital Signs 08/26/18 23:28 08/27/18 05:43 08/27/18 06:44 Temperature 98.5 F Pulse Rate 99 H 93 H Respiratory Rate 18 18 Blood Pressure 108/61 131/60 Pulse Oximetry 98 97 08/27/18 07:23 Temperature Pulse Rate 104 H Respiratory Rate 20 Blood Pressure 131/60 Pulse Oximetry Intake & Output 08/26/18 08/27/18 08/27/18 18:59 06:59 18:59 Intake Total 517.5 / 517.5 Balance 517.5 / 517.5 Weight 79.379 kg Intake: IV 517.5 / 517.5 Vancomycin Inj 1,750 MG In NS 517.5 / 517.5 Inj 500 ML @ 250 mls/hr IV.SIG STAT STA Rx#:[id number] Narrative: GENERAL: Well-nourished, well-developed middle aged male patient in NAD. SKIN: Warm and dry. No rash. HEENT: Normocephalic. Atraumatic. Pupils equal and round. Mucous membranes pink and moist. NECK: Supple. Trachea midline. CARDIOVASCULAR: Regular rate and rhythm. No murmur appreciated. RESPIRATORY: No accessory muscle use. Clear to auscultation. Breath sounds equal bilaterally. GASTROINTESTINAL: Abdomen soft, non-tender, nondistended. Normoactive bowel sounds x4. MUSCULOSKELETAL: No obvious deformities. Extremities without clubbing, cyanosis , or edema. Left hand with prior surgical incisions, healing well, however with diffuse erythema/edema that extends to the wrist. NEUROLOGICAL: Awake and alert. No obvious cranial nerve deficits. Motor grossly within normal limits. Moving all extremities spontaneously. Results - Labs CBC & Chem 7: 08/27/18 03:00 08/27/18 03:00 Labs: Laboratory Results - last 24 hr 08/27/18 08/27/18 08/27/18 03:00 03:00 06:15 WBC 23.9 H RBC 3.81 L Hgb 9.9 L Hct 29.7 L MCV 77.8 L MCH 25.9 L MCHC 33.3 RDW 15.5 Plt Count 638 H D MPV 6.4 L Neut % (Auto) 87.0 H Lymph % (Auto) 6.3 L [place] % (Auto) 5.8 Eos % (Auto) 0.4 Baso % (Auto) 0.5 Neut # (Auto) 20.8 H Lymph # (Auto) 1.5 [place] # (Auto) 1.4 H Eos # (Auto) 0.1 Baso # (Auto) 0.1 WBC Differential . Differential Comment Auto diff final Sodium 137 Potassium 4.5 Chloride 97 L Carbon Dioxide 29.3 Anion Gap 11 BUN 42 H Creatinine 1.15 Estimated GFR 65 L Random Glucose 103 Lactic Acid 0.9 Calcium 10.4 H Total Bilirubin 0.3 AST 27 ALT 22 Alkaline Phosphatase 157 H Total Protein 8.7 H Albumin 2.9 L - Imaging Impressions Hand X-Ray 08/27/18 02:55 CONCLUSION: 1. Unremarkable radiographs of the left hand. Caprini VTE Risk Assessment Caprini VTE Risk Assessment: Moderate/High Risk (score >= 2) Caprini Risk Assessment Model: Point Value = 1 Point Value = 2 Point Value = 3 Point Value = 5 Age 41-60 Minor surgery BMI > 25 kg/m2 Swollen legs Varicose veins or History of unexplained or recurrent spontaneous Oral contraceptives or hormone replacement Sepsis (< 1 month) Serious lung disease, including pneumonia (< 1 month) Abnormal pulmonary function Acute myocardial infarction Congestive heart failure (< 1 month) History of inflammatory bowel disease Medical patient at bed rest Age 61-74 Arthroscopic surgery Major open surgery (> 45 min) Laparoscopic surgery (> 45 min) Malignancy Confined to bed (> 72 hours) Immobilizing plaster cast Central venous access Age >= 75 History of VTE Family history of VTE Factor V Leiden Prothrombin [id number] Lupus anticoagulant Anticardiolipin antibodies Elevated serum homocysteine Heparin-induced thrombocytopenia Other congenital or acquired thrombophilia Stroke (< 1 month) Elective arthroplasty Hip, pelvis, or leg fracture Acute spinal cord injury (< 1 month) Prophylaxis Regimen: Total Risk Factor Score Risk Level Prophylaxis Regimen 0-1 Low Early ambulation 2 Moderate Order ONE of the following: *Sequential Compression Device (SCD) *Heparin 5000 units SQ BID 3-4 Higher Order ONE of the following medications: *Heparin 5000 units SQ TID *Enoxaparin/Lovenox 40 mg SQ daily (WT < 150 kg, CrCl > 30 mL/min) *Enoxaparin/Lovenox 30 mg SQ daily (WT < 150 kg, CrCl > 10-29 mL/min) *Enoxaparin/Lovenox 30 mg SQ BID (WT < 150 kg, CrCl > 30 mL/min) AND/OR *Sequential Compression Device (SCD) 5 or more Highest Order ONE of the following medications: *Heparin 5000 units SQ TID (Preferred with Epidurals) *Enoxaparin/Lovenox 40 mg SQ daily (WT < 150 kg, CrCl > 30 mL/min) *Enoxaparin/Lovenox 30 mg SQ daily (WT < 150 kg, CrCl > 10-29 mL/min) *Enoxaparin/Lovenox 30 mg SQ BID (WT < 150 kg, CrCl > 30 mL/min) AND *Sequential Compression Device (SCD) Assessment and Plan - Plan 58-year-old male with history of HTN, HLD, GERD, A. fib, DM, recent hospitalization for lumbar spine discitis currently on outpatient IV vancomycin via PICC, presents with complaints of back pain, hand pain, and dislodgment of PICC line. Sepsis with subacute discitis: Diagnosed on previous admission, lumbar spine MRI showed discitis of L4-5. Meets sepsis criteria with leukocytosis WBC 23.9K , tachycardia HR 105, and suspected sourcediscitis. -Continue on IV vancomycin with pharmacy consult, and continue patient's clarithromycin -Blood cultures collected and pending -Pain control with IV morphine prn -Consult infectious disease, appreciate assistance -Hold off on replacing PICC for now with ongoing sepsis Sepsis with Left hand cellulitis: With recent history of tenosynovitis and cellulitis. Meets sepsis criteria as above. -Left hand x-ray reviewed and unremarkable -EMR reviewed, prior wound culture with mycobacterium abscessus -On antibiotics as above -Pain control prn -ID consulted as above -Hand surgery consulted, patient required surgical debridement during last admission Atrial Fibrillation: chronic -continue patient's anticoagulation with Eliquis -continue patient's Cardizem -Monitor on telemetry Diabetes Mellitus: chronic -continue patient's Levemir 50u sq bid -Monitor Accu-checks and cover with SSI -Diabetic diet HTN/HLD: chronic -continue patient's ramipril, lasix -Monitor BP, adjust antihypertensives as needed GERD: chronic -continue patient's protonix DVT Prophylaxis: on Eliquis
[2018-08-27] MEDS: Morphine Inj 4 MG/ML Vial IV.PUSH PRN ×3 (12:47→21:01)
[2018-08-27] MEDS: dilTIAZem CD 240 MG Capsule PO SCH (15:49)
--- NOTE | 2018-08-27 16:05 | P.CONID ---
History of Present Illness Service: Infectious Disease Consult date: 08/27/18 Requesting Physician: Thomas Ybarra Reason for Consult: Evaluate patient with cellulitis and recent bacteremia Primary Care Provider: No Primary Care Physician History of Present Illness: Patient seen and examined. Records reviewed. Patient is a very poor historian Patient is a 58-year-old male, presented to the hospital for further antibiotic treatment. He was recently hospitalized July 18 - August 09 and at that time he was diagnosed to have infection on his left hand. He had undergone surgery, and the culture grew Mycobacterium abscesses. During this hospitalization also he was diagnosed to have discitis in L4. Arrangements were made for him to get his IV antibiotics at home and he was on IV vancomycin , as well as oral Biaxin. Patient stated he had DrAristides's choice. Patient stated he was not feeling good, and his PICC line accidentally came out. The PICC line came out August 24. He presented back to the hospital on August 26 for further evaluation and treatment. He is complaining of pain in his left hand. I had noticed redness, and he really could not tell me how long it has been read. He also noted when redness going up his left wrist. Patient also complaining of back pain. Patient stated also that he gets sweats which is not unusual for him. Since admission he has not been febrile. His WBC is greater than 20,000. Patient was referred to Dr. Orellana for ID follow-up, and he really can tell me whether he had seen the doctor. Infectious disease consultation has been requested to evaluate the patient. Review of Systems Patient is a very poor historian and unable to get a reliable [facility] - History History Provided By: Patient - Medical History Medical History: Medical History (Last Reviewed 08/27/18 @ 16:18 by Zee Villalba MD) Amputated toe GERD (gastroesophageal reflux disease) Hyperlipidemia Afib Back pain Diabetes Hypertension Osteomyelitis - Surgical History Surgical History: Surgical History (Last Reviewed 08/27/18 @ 16:18 by Zee Villalba MD) H/O foot surgery - Family History Family History: Family History (Last Reviewed 08/27/18 @ 16:18 by Zee Villalba MD) Other Coronary artery disease - Tobacco History Second Hand Smoke Exposure: No Smoking Status: Never smoker - Alcohol History How Often Do You Have a Drink Containing Alcohol: Never - Substance Use History Substance History: No History of Abuse - Immunization History Tetanus Immunization: >5 Years Hx Influenza Vaccine This Season: No Medications and Allergies Active Medications: Active Medications Al Hydroxide/Mg Hydroxide (Milk Of Magnesia Liq) 30 ml PO Q12H PRN PRN Reason: Mild Constipation Apixaban (Eliquis) 5 mg PO BID ROBBIE Bisacodyl (Dulcolax Supp) 10 mg RECTAL DAILY PRN PRN Reason: SEVERE CONSITIPATION Clarithromycin (Biaxin) 500 mg PO Q12HR ROBBIE Dextrose (D50w Vial) 50 ml IV.PUSH UNSCH PRN PRN Reason: PER HYPOGLYCEMIA PROTOCOL Diltiazem HCl (Cardizem Cd 24hr) 240 mg PO DAILY [facility] Last Admin: 08/27/18 15:49 Dose: 240 mg Furosemide (Lasix) 20 mg PO BID ROBBIE Glucagon (Glucagon Inj) 1 mg OTHER PRN PRN PRN Reason: for Hypoglycemia Protocol Sodium Chloride (Ns Inj) 1,000 mls @ 100 mls/hr IV.CONT .Q10H ROBBIE Vancomycin HCl 1,750 mg/ (Sodium Chloride) 517.5 mls @ 250 mls/hr IV.SIG Q18H ROBBIE Cefoxitin Sodium 2 gm/ Sodium (Chloride) 100 mls @ 200 mls/hr IV.SIG Q8H ROBBIE Insulin Aspart (Novolog Insulin Correctional Sugar Inj) 0 unit SQ ACHS ROBBIE; Protocol Insulin Detemir (Levemir Inj) 50 unit SQ BID ROBBIE Lactulose (Lactulose Liq) 30 ml PO DAILY PRN PRN Reason: SEVERE CONSITIPATION Miscellaneous Information ([facility] Ordered Lab Info) 0 each OTHER ONCE ONE Stop: 08/29/18 09:46 Morphine Sulfate (Morphine Inj) 2 mg IV.PUSH Q3H PRN PRN Reason: pain > 4 Last Admin: 08/27/18 12:47 Dose: 2 mg Pantoprazole Sodium (Protonix) 40 mg PO DAILY [facility] Pharmacy Profile Note (Vancomycin Consult Pharmacy) 1 each OTHER UNSCH PRN PRN Reason: Pharmacy to dose Ramipril (Altace) 2.5 mg PO DAILY [facility] Senna/Docusate Sodium (Aliyah-Colace) 1 tab PO BID [facility] Last Admin: 08/27/18 08:03 Dose: 1 tab Sennosides (Senokot) 17.2 mg PO Q12H PRN PRN Reason: Moderate Constipation Allergies Allergy/AdvReac Type Severity Reaction Status Date / Time No Known Drug Allergies Allergy none Verified 08/06/18 15:59 *MDRO Multi-Drug Resistant AdvReac Unknown MRSA Uncoded 06/16/17 16:34 Organism Home Medications Medication Instructions Recorded Confirmed Type apixaban [Eliquis] 5 mg PO BID 06/09/18 07/18/18 History diltiazem HCl 240 mg PO DAILY 06/09/18 07/22/18 History furosemide 20 mg PO BID 06/09/18 07/18/18 History insulin glargine [Lantus Solostar 50 unit SUB-Q BID 06/09/18 07/18/18 History U-100 Insulin] pantoprazole [Protonix] 40 mg PO DAILY 06/09/18 07/18/18 History ramipril 2.5 mg PO DAILY 06/09/18 07/18/18 History oxycodone 30 mg PO Q4H PRN 07/22/18 07/22/18 History Exam Vital signs: Vital Signs 08/26/18 23:28 08/27/18 05:43 08/27/18 06:44 Temperature 98.5 F Pulse Rate 99 H 93 H Respiratory Rate 18 18 Blood Pressure 108/61 131/60 Pulse Oximetry 98 97 08/27/18 07:23 08/27/18 12:40 08/27/18 15:43 Temperature 98.6 F 98.6 F Pulse Rate 104 H 73 105 H Respiratory Rate 20 18 18 Blood Pressure 131/60 165/72 H 163/85 H Pulse Oximetry 98 98 Intake & Output 08/26/18 08/27/18 08/27/18 18:59 06:59 18:59 Intake Total 517.5 / 517.5 Balance 517.5 / 517.5 Weight 79.379 kg Intake: IV 517.5 / 517.5 Vancomycin Inj 1,750 MG In NS 517.5 / 517.5 Inj 500 ML @ 250 mls/hr IV.SIG STAT STA Rx#:[id number] Narrative: Physical Examination GENERAL: Patient is a well-nourished, well-developed male, awake and alert, not in respiratory distress. SKIN: Warm and moist, he was sweating when I saw him. No generalized rash, no ecchymoses and no evidence of embolic lesions. HEAD: Atraumatic. Normocephalic. No temporal wasting, or tenderness. EYES: [place] conjunctiva. No petechia or hemorrhage. Pupils equal, round and reactive to light. Extraocular movements full and intact. No scleral icterus. No injection or drainage. EARS, NOSE AND THROAT: Nose without bleeding or purulent nasal discharge. No sinus tenderness. Mucous membranes pink and moist. No oral lesions noted. No exudate. No oral thrush. NECK: Trachea midline. Supple and not tender, no meningeal signs CARDIOVASCULAR: Regular rate and rhythm. No murmurs, rubs or gallops heard RESPIRATORY: Clear to auscultation. Breath sounds equal bilaterally. No rales , wheezing or rhonchi ABDOMEN: Soft, non-tender, nondistended. Bowel sounds present and normoactive. No guarding. No rebound. No organomegaly. EXTREMITIES: No clubbing, cyanosis. L hand he has healed incisions on his palm, but he has redness and swelling, as well and swollen LIF. he also has patches of erythema going up his wrist. No calf tenderness. Well perfused and warm. NEUROLOGICAL: Awake and alert. Cranial nerves grossly intact. Motor grossly within normal limits. PSYCHIATRIC: Normal affect, calm and cooperative. LINE: No evidence of infection Results - Labs CBC & Chem 7: 08/27/18 03:00 08/27/18 03:00 Labs: Laboratory Results - last 24 hr 08/27/18 08/27/18 08/27/18 03:00 03:00 06:15 WBC 23.9 H RBC 3.81 L Hgb 9.9 L Hct 29.7 L MCV 77.8 L MCH 25.9 L MCHC 33.3 RDW 15.5 Plt Count 638 H D MPV 6.4 L Neut % (Auto) 87.0 H Lymph % (Auto) 6.3 L [place] % (Auto) 5.8 Eos % (Auto) 0.4 Baso % (Auto) 0.5 Neut # (Auto) 20.8 H Lymph # (Auto) 1.5 [place] # (Auto) 1.4 H Eos # (Auto) 0.1 Baso # (Auto) 0.1 WBC Differential . Differential Comment Auto diff final Sodium 137 Potassium 4.5 Chloride 97 L Carbon Dioxide 29.3 Anion Gap 11 BUN 42 H Creatinine 1.15 Estimated GFR 65 L POC Glucose Random Glucose 103 Lactic Acid 0.9 Calcium 10.4 H Total Bilirubin 0.3 AST 27 ALT 22 Alkaline Phosphatase 157 H Total Protein 8.7 H Albumin 2.9 L 08/27/18 12:51 WBC RBC Hgb Hct MCV MCH MCHC RDW Plt Count MPV Neut % (Auto) Lymph % (Auto) [place] % (Auto) Eos % (Auto) Baso % (Auto) Neut # (Auto) Lymph # (Auto) [place] # (Auto) Eos # (Auto) Baso # (Auto) WBC Differential Differential Comment Sodium Potassium Chloride Carbon Dioxide Anion Gap BUN Creatinine Estimated GFR POC Glucose 282 H Random Glucose Lactic Acid Calcium Total Bilirubin AST ALT Alkaline Phosphatase Total Protein Albumin - Imaging Impressions Hand X-Ray 08/27/18 02:55 CONCLUSION: 1. Unremarkable radiographs of the left hand. Assessment and Plan - Plan Impression Infection L hand, with M abscessus, looks worse and has lymphangitis going up his wrist L4 discitis, ?if this is also M abscessus etiology; biopsy no osteo, C/S negative, but he was on Abx Recommendation Continue vanco which he was getting previously Restart Biaxin and add Cefoxitin for M abscessus Will get hand surgery consult Repeat BMP, and if ok, will consider adding Amikacin Get BC for AFB Follow C/S Monitor progress I will follow along with you Thank you for this consultation
[2018-08-27] MEDS ORDERED: Insulin NovoLOG Aspart Correctional Sugar Inj SQ SCH (17:00)
[2018-08-27] MEDS: Insulin NovoLOG Aspart Correctional Sugar Inj SQ SCH ×2 (17:15→21:47)
[2018-08-27] MEDS: Sod Chloride 0.9% Inj 1,000 ML IV.CONT SCH ×2 (17:30→17:31)
[2018-08-27] MEDS: Furosemide 20 MG Tablet PO SCH (20:59)
[2018-08-27] MEDS: Insulin Detemir Inj 1,000 UNIT/10 ML Vial SQ SCH (21:47)
[2018-08-27] MEDS: Vancomycin Inj 1,750 MG in Sodium Chlor 0.9% Inj 500 ML IV.SIG SCH (21:48)
[2018-08-28] MEDS: Morphine Inj 4 MG/ML Vial IV.PUSH PRN ×3 (02:27→10:01)
[2018-08-28] MEDS: Sod Chloride 0.9% Inj 1,000 ML IV.CONT SCH ×2 (02:33→15:59)
[2018-08-28 08:55] LABS: Anion Gap 10 meq/L (5-15); Blood Urea Nitrogen 18 mg/dL (7-18); Calcium 9.3 mg/dL (8.5-10.1); Carbon Dioxide 25.6 meq/L (21.0-32.0); Chloride 99 meq/L (98-107); Glomerular Filtration Rate Greater Than 89 mL/min (>89); Glucose,Random 217 mg/dL (74-106); Potassium 3.2 meq/L (3.5-5.1); Sodium 135 meq/L (136-145)
--- NOTE | 2018-08-28 09:49 | P.PN ---
Subjective Interval history: Follow-up for left hand cellulitis, subacute lumbar discitis. Patient reports continued left hand pain, erythema, edema, minimally improved compared to yesterday. He states he is going to the OR for debridement today. Denies fevers or chills. He does report continued diffuse low back pain, consistent with previous. He is requesting his oxycodone 30 mg q4h be restarted, dosing was confirmed on E force. He denies any other medical complaints at this time. Physical Exam Vital signs: Vital Signs 08/27/18 12:40 08/27/18 15:43 08/27/18 23:52 Temperature 98.6 F 98.6 F Pulse Rate 73 105 H Respiratory Rate 18 Blood Pressure 165/72 H 163/85 H Pulse Oximetry 98 98 08/28/18 00:00 08/28/18 04:00 08/28/18 08:00 Temperature 97.6 F 97.5 F L Pulse Rate 79 84 91 H Respiratory Rate 20 20 20 Blood Pressure 130/72 111/66 119/60 Pulse Oximetry 100 100 100 Intake & Output 08/27/18 08/28/18 08/28/18 18:59 06:59 18:59 Intake Total 100 / 100 617.5 / 617.5 Output Total 300 / 300 Balance 100 / 100 317.5 / 317.5 Weight 79.379 kg Intake: IV 100 / 100 617.5 / 617.5 Vancomycin Inj 1,750 MG In NS 517.5 / 517.5 Inj 500 ML @ 250 mls/hr IV.SIG Q18H ROBBIE Rx#:[id number] Mefoxin Inj 2 GM In NS Inj 100 100 / 100 100 / 100 ML @ 200 mls/hr IV.SIG Q8H ROBBIE Rx#:[id number] Output: Urine 300 / 300 Other: Date of Last Bowel Movement 08/27/18 Narrative: GENERAL: Well-nourished, well-developed middle aged male patient in [facility]. SKIN: Warm and dry. No rash. HEENT: Normocephalic. Atraumatic. Pupils equal and round. Mucous membranes pink and moist. CARDIOVASCULAR: Regular rate and rhythm. No murmur appreciated. RESPIRATORY: No accessory muscle use. Clear to auscultation. Breath sounds equal bilaterally. GASTROINTESTINAL: Abdomen soft, non-tender, nondistended. Normoactive bowel sounds x4. MUSCULOSKELETAL: No obvious deformities. Left hand with prior surgical incisions , healing well, however with diffuse erythema/edema that extends to the wrist; covered in gauze/kerlix today. NEUROLOGICAL: Awake and alert. No obvious cranial nerve deficits. Motor grossly within normal limits. Moving all extremities spontaneously. Results - Labs CBC & Chem 7: 08/28/18 12:45 08/28/18 08:09 Laboratory Results - last 24 hr 08/27/18 08/27/18 08/27/18 12:51 16:26 21:08 Sodium Potassium Chloride Carbon Dioxide Anion Gap BUN Creatinine Estimated GFR POC Glucose 282 H 271 H 263 H Random Glucose Calcium 08/28/18 08/28/18 08:09 08:28 Sodium 135 L Potassium 3.2 L D Chloride 99 Carbon Dioxide 25.6 Anion Gap 10 BUN 18 Creatinine 0.63 Estimated GFR Greater than 89 POC Glucose 285 H Random Glucose 217 H D Calcium 9.3 D - Imaging Hand X-Ray 08/27/18 02:55 CONCLUSION: 1. Unremarkable radiographs of the left hand. Assessment and Plan - Plan 58-year-old male with history of HTN, HLD, GERD, A. fib, DM, recent hospitalization for lumbar spine discitis currently on outpatient IV vancomycin via PICC, presents with complaints of back pain, hand pain, and dislodgment of PICC line. Sepsis: patient meets sepsis criteria with leukocytosis WBC 23.9K, tachycardia HR 105, and suspected sourcelumbar discitis vs hand cellulitis. -Continue IVF with NS @ 100cc/hr -Monitor CBC, WBC trending down, currently 17.8K -supportive treatment -continue antibiotics per ID, including IV Vanco, IV cefoxitin, po Clarithromycin Subacute discitis: Diagnosed on previous admission, lumbar spine MRI showed discitis of L4-5. Meets sepsis as above. -Continue on IV vancomycin with pharmacy consult, IV Cefoxitin, and continue patient's po clarithromycin -Blood cultures collected, preliminary with NGTD -Pain control with IV morphine prn -Consult infectious disease, appreciate assistance -Hold off on replacing PICC for now with ongoing sepsis Left hand cellulitis: With recent history of tenosynovitis and cellulitis. Meets sepsis criteria as above. -Left hand x-ray reviewed and unremarkable -EMR reviewed, prior wound culture with mycobacterium abscessus -On antibiotics as above -Pain control with patient's Oxycodone 30mg q4h prn -ID consulted as above -Hand surgery consulted, patient required surgical debridement during last admission Atrial Fibrillation: chronic -continue patient's anticoagulation with Eliquis -continue patient's Cardizem -Monitor on telemetry Diabetes Mellitus: chronic -continue patient's Levemir 50u sq bid -Monitor Accu-checks and cover with SSI -Diabetic diet, add Glucerna shakes to meals HTN/HLD: chronic -continue patient's ramipril, lasix -Monitor BP, adjust antihypertensives as needed GERD: chronic -continue patient's protonix DVT Prophylaxis: on Eliquis
[2018-08-28] MEDS: dilTIAZem CD 240 MG Capsule PO SCH (10:01)
[2018-08-28] MEDS: Furosemide 20 MG Tablet PO SCH ×2 (10:01→23:05)
[2018-08-28] MEDS: Ramipril 2.5 MG Capsule PO SCH (10:53)
[2018-08-28] MEDS: Insulin Detemir Inj 1,000 UNIT/10 ML Vial SQ SCH ×2 (10:54→23:10)
[2018-08-28] MEDS: Senna/Docusate Sodium 8.6/50 MG Tablet PO SCH ×2 (10:54→23:11)
[2018-08-28] MEDS: Insulin NovoLOG Aspart Correctional Sugar Inj SQ SCH ×4 (11:18→23:09)
[2018-08-28 13:06] LABS: Baso % (Auto) 0.3 % (0.0-2.0); Eos % (Auto) 0.2 % (0.0-4.0); Hemoglobin 9.8 gm/dL (13.0-17.0); Lymph # (Auto) 1.1 th/mm3 (1.0-4.8); Lymph % (Auto) 5.9 % (9.0-44.0); Mean Corpuscular HGB Conc 31.8 % (32.0-36.0); Mean Corpuscular Hemoglobin 25.1 pg (27.0-34.0); Mean Corpuscular Volume 78.8 fL (80.0-100.0); Mean Platelet Volume 5.9 fL (7.0-11.0); Mono # (Auto) 1.1 th/mm3 (0.0-0.9); Mono % (Auto) 6.4 % (0.0-8.0); Neut # (Auto) 15.5 th/mm3 (1.8-7.7); Neut % (Auto) 87.2 % (16.0-70.0); Platelet Count 539 th/mm3 (150-450); Red Blood Count 3.93 mil/mm3 (4.50-5.90); Red Cell Distribution Width 15.7 % (11.6-17.2); White Blood Count 17.8 th/mm3 (4.0-11.0)
[2018-08-28] MEDS: Vancomycin Inj 1,750 MG in Sodium Chlor 0.9% Inj 500 ML IV.SIG SCH (16:03)
[2018-08-28] MEDS ORDERED: fentaNYL Citrate Inj 250 MCG/5 ML Ampul ONE (18:55)
[2018-08-28] MEDS ORDERED: Neomycin/Polymyxin G.U. Irrigant 1 ML Ampul ONE (19:01)
[2018-08-28] MEDS ORDERED: Lidocaine PF 1% Inj 5 ML Syringe OTHER ONE (19:15)
--- NOTE | 2018-08-28 20:44 | P.OP ---
- Preoperative Diagnosis (1) Suppurative tenosynovitis of flexor tendon of left hand Comment: chronic flexor tenosynovitis left palm/ring finger - Postoperative Diagnosis (1) Suppurative tenosynovitis of flexor tendon of left hand Comment: chronic flexor tenosynovitis left palm/ring finger Date of procedure: 08/28/18 Procedure: exploration, flexor tenosynovectomy, debridement/excision of the infected/ necrotic flexor digitorum superficialis, left palm/ring finger Anesthesia: GETA Surgeon: Slim Slaughter MD Estimated blood loss (mL): 10 Tourniquet time (min): 36 Pathology: other (flexor tenosynovium for permanent and AFB, specimen for c/s, fungal, afb) Operation and Findings: chronic flexor tenosynovitis, necrotic flexor digitorum superficialis, left palm /ring finger
--- NOTE | 2018-08-28 20:44 | MB ---
cc: Slim Slaughter MD DATE: 08/27/2018 REASON FOR CONSULTATION: Left hand infection. HISTORY OF PRESENT ILLNESS: The patient is a 58-year-old male seen by me during the last hospital admission between 07/18/2018 on 08/09/2018 for an infection of the left hand. The patient had chronic flexor tenosynovitis involving the left hand/ring finger. He underwent wash, debridement, flexor tenosynovectomy of the left hand ring finger. The patient was in hospital for 2-3 weeks and cultures grew mycobacterium. He was on vancomycin and Biaxin. The patient was discharged home on IV vancomycin and Biaxin. The patient insists he was not prescribed Biaxin. He presented to the ED with complaints of worsening pain and swelling involving the left hand. The patient had removal of sutures prior to discharge, and the surgical incision site and infection had almost cleared prior to discharge. He also was lost to followup in the office. The patient was also diagnosed with a diskitis, and still complains of back pain. Denies any fever. Denies any numbness. Complains of stiffness of the left hand/ring finger. PAST MEDICAL AND SURGICAL HISTORY: Significant for diabetes, hypertension, atrial fibrillation. PAST SURGICAL HISTORY: Significant for flexor tenosynovectomy, debridement and drainage of abscess left hand/ring finger 06/2018. PHYSICAL EXAMINATION: GENERAL: The patient is alert, oriented x 3. He has been afebrile. Examination of the left upper extremity reveals a dressing in place across palm. Examination after removal of dressing, reveals flexion deformity of the ring finger at the PIP joint. There is swelling, redness in the palm corresponding to the ring finger, which extends to the proximal phalanx and to the carpal tunnel region proximally. There are 2 open wounds in the palm corresponding to the A1-A2 jose region with drainage of purulent material, with tenderness noted over the region. There is also some erythema and swelling at the dorsal aspect of the hand, corresponding to the fourth metacarpal shaft. He has intact sensation. He has intact distal capillary refill. Range of motion of the ring finger is limited and painful. He has flexion contracture of the PIP joint, which is not passively correctable. X-RAYS: X-ray of the left hand was reviewed, shows soft tissue swelling. No evidence of osteomyelitis. LABORATORY: Laboratory work was reviewed. He has a white count of 23.7, which is trending down today. ASSESSMENT: A 58-year-old male with chronic flexor tenosynovitis involving the left palm/ring finger with acute exacerbation of infection. PLAN: Will be to take the patient for a flexor tenosynovectomy, wash, drainage, left palm/ring finger. Will continue IV antibiotics and Biaxin based on ID recommendation. Will keep the patient n.p.o. Slim Slaughter MD SE/citlaly , 07:02 PM , 07:12 PM MTDD
[2018-08-28] MEDS ORDERED: *Meperidine Inj 25 MG/ML Vial PERIprocedural Use ONLY ONE (20:45)
--- NOTE | 2018-08-29 00:02 | MP ---
cc: Slim Slaughter MD DATE OF OPERATION: 08/28/2018 DATE OF SURGERY: 08/28/2018. PREOPERATIVE DIAGNOSIS: Chronic flexor tenosynovitis, left palm/ring finger. POSTOPERATIVE DIAGNOSIS: Chronic flexor tenosynovitis, left palm/ring finger. PROCEDURE: Exploration flexor tenosynovectomy debridement/excision infected/necrotic flexor digitorum superficialis, left palm/ring finger. SURGEON: Slim Slaughter MD. ANESTHESIA: General. ESTIMATED BLOOD LOSS: 10 mL. TOURNIQUET TIME: 36 minutes. SPECIMENS: tissue specimen for permanent section as well as AFB and specimen was sent for culture and sensitivity including fungal and AFB cultures. INDICATIONS: The patient is a 58-year-old male initially seen about 4-6 weeks ago for chronic flexor synovitis of the left palm/ring finger, the patient underwent flexor tenosynovectomy and cultures were growing mycobacterium. He was initially treated with vancomycin and was discharged home on Biaxin. He presented to the ED with worsening pain and swelling involving the left palm/ring finger. On examination, he had 2 draining sinuses in the palm corresponding to the A1-A2 jose region as well as purulence in the region with associated swelling and redness extending into the palm from the distal carpal region up to the PIP joint region with flexion deformity of the ring finger. He had limited range of motion of the ring finger. He had an elevated white count of 23. The patient was consented for exploration flexor tenosynovectomy/drainage left palm/ring finger. The patient was explained the risks and benefits of the procedure. PROCEDURE: The patient was brought to the operating room under general anesthesia- the left upper extremity was sterilely prepped and draped. Incision site was marked in a zigzag fashion corresponding to the previous scar extending up to the DIP joint region. After limb exsanguination, tourniquet was inflated to 250 mmHg. An incision was then made of the proposed incision site. Skin flaps were elevated exposing the area. There was extensive chronic-appearing tenosynovium around the flexor tendon and the subcutaneous location. The flexor digitorum superficialis was necrotic and was ruptured at the A1-A2 jose region. There was also evidence of purulence within the region extending all the way to the PIP joint region to the mid palmar region. Excisional debridement of the hypertrophied inflamed flexor tenosynovium as well as inflamed surrounding soft tissues were carried out using a rongeur as well as sharp dissection. The flexor digitorum superficialis was pulled distally and transected proximally. The flexor digitorum superficialis was excised up to the division into the ulnar and radial slips. There was evidence of hypertrophied inflammatory tissue around the flexor digitorum profundus which was intact and the inflammatory tissue was then debrided using blunt and sharp dissection. The specimen was sent for pathology, which included permanent section as well as AFB and cultures for Gram stain, aerobic, anaerobic, AFB and fungal. throughout the procedure the distal neurovascular bundle was protected which was surrounded by inflamed inflammatory tissue. Thorough wash of the wound was carried out using normal saline mixed with hydrogen peroxide initially. This was then followed by normal saline mixed with irrigant. About a liter of solution was used. Tourniquet was deflated at 36 minutes. He had good distal circulation after release of tourniquet. Bleeding points were cauterized with bipolar cautery. There was also involvement of the A1-A2 jose, which was all necrotic and was debrided. Packing of the wound was carried out with 1/4-inch iodoform packing material and the skin flaps were approximated using 4-0 nylon in horizontal mattress interrupted fashion. A bulky hand dressing was applied, which was held in place by Sof-Rol and bias hand wrap. The patient had good distal circulation after release of tourniquet. Patient was recovered and sent to recovery room in stable condition. The plan will be to continue with IV antibiotics based on ID recommendation and cultures, hand surgery. Keep the limb elevated. We will remove the packing tomorrow. Slim Slaughter MD SE/victorino/do , 08:51 PM , 09:04 PM SETH
[2018-08-29] MEDS: Sod Chloride 0.9% Inj 1,000 ML IV.CONT SCH ×3 (00:34→19:22)
[2018-08-29 08:23] LABS: Baso # (Auto) 0.1 th/mm3 (0.0-0.2); Baso % (Auto) 0.4 % (0.0-2.0); Eos # (Auto) 0.1 th/mm3 (0.0-0.4); Eos % (Auto) 0.5 % (0.0-4.0); Hematocrit 29.7 % (39.0-51.0); Hemoglobin 9.4 gm/dL (13.0-17.0); Lymph # (Auto) 1.2 th/mm3 (1.0-4.8); Lymph % (Auto) 9.2 % (9.0-44.0); Mean Corpuscular HGB Conc 31.7 % (32.0-36.0); Mean Corpuscular Volume 78.8 fL (80.0-100.0); Mono # (Auto) 0.9 th/mm3 (0.0-0.9); Mono % (Auto) 7.1 % (0.0-8.0); Neut # (Auto) 10.7 th/mm3 (1.8-7.7); Neut % (Auto) 82.8 % (16.0-70.0); Platelet Count 520 th/mm3 (150-450); Red Blood Count 3.77 mil/mm3 (4.50-5.90); Red Cell Distribution Width 15.6 % (11.6-17.2); White Blood Count 12.9 th/mm3 (4.0-11.0)
--- NOTE | 2018-08-29 08:31 | P.PN ---
Subjective Interval history: awake and alert, good po, voiding well, + BM now complains of pain on the right shoulder with pain and limitation in range of motion- per patient just started few days ago back pain- chronic Physical Exam Vital signs: Vital Signs 08/28/18 12:00 08/28/18 15:43 08/28/18 18:35 Temperature 98.1 F 97.5 F L 98.3 F Pulse Rate 79 73 70 Respiratory Rate 16 16 15 Blood Pressure 127/69 122/68 113/60 Pulse Oximetry 100 99 100 08/28/18 20:40 08/28/18 20:45 08/28/18 21:10 Temperature 98.3 F 98.3 F 98.3 F Pulse Rate 64 66 64 Respiratory Rate 14 14 16 Blood Pressure 96/53 L 104/53 L 98/53 L Pulse Oximetry 99 99 98 08/28/18 23:18 08/29/18 04:00 08/29/18 04:18 Temperature 97.6 F 97.4 F L Pulse Rate 78 72 72 Respiratory Rate 19 16 Blood Pressure 114/59 L 126/70 Pulse Oximetry 99 Intake & Output 08/28/18 08/29/18 08/29/18 18:59 06:59 18:59 Intake Total 200 / 200 3257.5 / 3257.5 Output Total 960 / 960 225 / 225 Balance 200 / 200 2297.5 / 2297.5 -225 / -225 Weight 80.6 kg Intake: IV 200 / 200 1617.5 / 1617.5 NS Inj 1,000 ML @ 100 mls/hr IV 1000 / 1000 .CONT .Q10H ROBBIE Rx#:[id number] Vancomycin Inj 1,750 MG In NS 517.5 / 517.5 Inj 500 ML @ 250 mls/hr IV.SIG Q18H ROBBIE Rx#:[id number] Mefoxin Inj 2 GM In NS Inj 100 200 / 200 100 / 100 ML @ 200 mls/hr IV.SIG Q8H ROBBIE Rx#:[id number] Oral 1140 / 1140 Anesthesia Amount 500 / 500 Output: Urine 950 / 950 225 / 225 Estimated Blood Loss Other: Date of Last Bowel Movement 08/28/18 08/28/18 Weight On Admission 79.379 kg Narrative: in NAD. SKIN: right axillary area- with erythehmatous rashes HEENT: Normocephalic. Pupils equal and round. Mucous membranes pink and moist. CARDIOVASCULAR: Regular rate and rhythm. No murmur appreciated. RESPIRATORY: No accessory muscle use. Clear to auscultation. Breath sounds equal bilaterally. GASTROINTESTINAL: Abdomen soft, non-tender, Normoactive bowel sounds x4. MUSCULOSKELETAL: No obvious deformities. Right shoulder swelling- feels like effusion/bursitis, tender, no overlying erythema though, with limitation in range of motion Left UE- post op dressing in place NEUROLOGICAL: Awake and alert. No obvious cranial nerve deficits. Motor grossly within normal limits. Moving all extremities spontaneously. Results - Labs CBC & Chem 7: 08/29/18 07:59 08/29/18 07:59 Laboratory Results - last 24 hr 08/28/18 08/28/18 08/28/18 08:09 12:45 16:35 WBC 17.8 H RBC 3.93 L Hgb 9.8 L Hct 31.0 L MCV 78.8 L MCH 25.1 L MCHC 31.8 L RDW 15.7 Plt Count 539 H MPV 5.9 L Neut % (Auto) 87.2 H Lymph % (Auto) 5.9 L [place] % (Auto) 6.4 Eos % (Auto) 0.2 Baso % (Auto) 0.3 Neut # (Auto) 15.5 H Lymph # (Auto) 1.1 [place] # (Auto) 1.1 H Eos # (Auto) 0.0 Baso # (Auto) 0.0 WBC Differential . Differential Comment Auto diff final Sodium 135 L Potassium 3.2 L D Chloride 99 Carbon Dioxide 25.6 Anion Gap 10 BUN 18 Creatinine 0.63 Estimated GFR Greater than 89 POC Glucose 137 H Random Glucose 217 H D Calcium 9.3 D 08/28/18 08/29/18 08/29/18 18:14 07:20 07:59 WBC 12.9 H RBC 3.77 L Hgb 9.4 L Hct 29.7 L MCV 78.8 L MCH 25.0 L MCHC 31.7 L RDW 15.6 Plt Count 520 H MPV 6.0 L Neut % (Auto) 82.8 H Lymph % (Auto) 9.2 [place] % (Auto) 7.1 Eos % (Auto) 0.5 Baso % (Auto) 0.4 Neut # (Auto) 10.7 H Lymph # (Auto) 1.2 [place] # (Auto) 0.9 Eos # (Auto) 0.1 Baso # (Auto) 0.1 WBC Differential . Differential Comment Auto diff final Sodium Potassium Chloride Carbon Dioxide Anion Gap BUN Creatinine Estimated GFR POC Glucose 120 H 203 H Random Glucose Calcium Microbiology 08/27/18 06:10 Blood - Peripheral Aerobic Blood Culture - Preliminary No growth in 1 day 08/27/18 06:10 Blood - Peripheral Anaerobic Blood Culture - Preliminary No growth in 1 day 08/27/18 06:10 Blood - Peripheral Aerobic Blood Culture - Preliminary No growth in 1 day 08/27/18 06:10 Blood - Peripheral Anaerobic Blood Culture - Preliminary No growth in 1 day - Procedures 08/28 exploration, flexor tenosynovectomy, debridement/excision of the infected/ necrotic flexor digitorum superficialis, left palm/ring finger Assessment and Plan - Plan 58-year-old male with history of HTN, HLD, GERD, A. fib, DM, recent hospitalization for lumbar spine discitis currently on outpatient IV vancomycin via PICC, presents with complaints of back pain, hand pain, and dislodgment of PICC line. Infection L hand, with M abscessus, looks worse and has lymphangitis going up his wrist L4 discitis, ?if this is also M abscessus etiology; biopsy no osteo, C/S negative, but he was on Abx Sepsis: patient meets sepsis criteria with leukocytosis WBC 23.9K, tachycardia HR 105, and suspected sourcelumbar discitis vs hand cellulitis. -Monitor CBC, WBC trending down - today 11/03 -continue antibiotics per ID, including IV Vanco, IV cefoxitin, po Clarithromycin Suppurative Tenosynovitis of flexor tendon of left hand S/P exploration, flexor tenosynovectomy, debridement/excision of the infected/ necrotic flexor digitorum superficialis, left palm/ring fingerLeft hand cellulitis- 08/28 -EMR reviewed, prior wound culture with mycobacterium abscessus -On antibiotics as above -Pain control with patient's Oxycodone 30mg q4h prn -ID consulted as above -Hand surgery ff along with us ff up on OR cultures Subacute discitis: Diagnosed on previous admission, lumbar spine MRI showed discitis of L4-5. Meets sepsis as above. -Continue on IV vancomycin with pharmacy consult, IV Cefoxitin, and continue patient's po clarithromycin -Blood cultures collected, preliminary with NGTD -Pain control with IV morphine prn -ID ff -Hold off on replacing PICC for now with ongoing sepsis History of Atrial Fibrillation S/P Ablation - telemetry in SR -continue patient's anticoagulation with Eliquis -continue patient's Cardizem -Monitor on telemetry Diabetes Mellitus: chronic -continue patient's Levemir 50u sq bid -Monitor Accu-checks and cover with SSI -Diabetic diet, add Glucerna shakes to meals HTN/HLD: chronic -continue patient's ramipril, lasix -Monitor BP, adjust antihypertensives as needed GERD: chronic -continue patient's protonix DVT Prophylaxis: on Eliquis
[2018-08-29] MEDS: dilTIAZem CD 240 MG Capsule PO SCH (08:35)
[2018-08-29] MEDS: Furosemide 20 MG Tablet PO SCH ×2 (08:35→21:03)
[2018-08-29] MEDS: Senna/Docusate Sodium 8.6/50 MG Tablet PO SCH ×2 (08:35→21:03)
[2018-08-29] MEDS: Ramipril 2.5 MG Capsule PO SCH (08:35)
[2018-08-29] MEDS: Insulin Detemir Inj 1,000 UNIT/10 ML Vial SQ SCH ×2 (08:36→21:04)
[2018-08-29] MEDS: Insulin NovoLOG Aspart Correctional Sugar Inj SQ SCH ×4 (08:36→21:04)
[2018-08-29 08:54] LABS: Anion Gap 8 meq/L (5-15); Blood Urea Nitrogen 18 mg/dL (7-18); Calcium 8.5 mg/dL (8.5-10.1); Carbon Dioxide 26.8 meq/L (21.0-32.0); Chloride 102 meq/L (98-107); Glomerular Filtration Rate Greater Than 89 mL/min (>89); Glucose,Random 202 mg/dL (74-106); Sodium 137 meq/L (136-145)
[2018-08-29] MEDS ORDERED: Pharmacy Ordered Lab Info OTHER ONE (09:45)
[2018-08-29] MEDS: Vancomycin Inj 1,750 MG in Sodium Chlor 0.9% Inj 500 ML IV.SIG SCH (10:52)
--- NOTE | 2018-08-29 17:46 | P.PNID ---
Subjective Remarks: Patient is a 58-year-old male, presented to the hospital for further antibiotic treatment. He was recently hospitalized July 18 - August 09 and at that time he was diagnosed to have infection on his left hand. He had undergone surgery, and the culture grew Mycobacterium abscesses. During this hospitalization also he was diagnosed to have discitis in L4. Arrangements were made for him to get his IV antibiotics at home and he was on IV vancomycin , as well as oral Biaxin. Patient stated he had DrAristides's choice. Patient stated he was not feeling good, and his PICC line accidentally came out. The PICC line came out August 24. He presented back to the hospital on August 26 for further evaluation and treatment. He is complaining of pain in his left hand. I had noticed redness, and he really could not tell me how long it has been read. He also noted when redness going up his left wrist. Patient also complaining of back pain. Patient stated also that he gets sweats which is not unusual for him. Since admission he has not been febrile. His WBC is greater than 20,000. Patient was referred to Dr. Orellana for ID follow-up, and he really can tell me whether he had seen the doctor. Infectious disease consultation has been requested to evaluate the patient. Notes reviewed Melquiades lal Had surgery yesterday Discussed with hand surgery Complaining of some shoulder pain Previous culture with M abscesses no susceptibility testing available yet Antibiotics: IV vancomycin Cefoxitin Biaxin Lines: PIV Past Medical History: Amputated toe GERD (gastroesophageal reflux disease) Hyperlipidemia Afib Back pain Diabetes Hypertension Osteomyelitis Foot surgery Allergies/Adverse Reactions: Allergies No Known Drug Allergies Allergy (Verified 08/06/18 15:59) none *MDRO Multi-Drug Resistant Organism Adverse Reaction (Unknown, Uncoded 06/16/17 16:34) MRSA MRSA (foot wound) - 02/12/15, 11/12/16, 03/29/17; (toe) - 03/2016 Objective Vital Signs 08/28/18 18:35 08/28/18 20:40 08/28/18 20:45 Temperature 98.3 F 98.3 F 98.3 F Pulse Rate 70 64 66 Respiratory Rate 15 14 14 Blood Pressure 113/60 96/53 L 104/53 L Pulse Oximetry 100 99 99 08/28/18 21:10 08/28/18 23:18 08/29/18 04:00 Temperature 98.3 F 97.6 F Pulse Rate 64 78 72 Respiratory Rate 16 19 Blood Pressure 98/53 L 114/59 L Pulse Oximetry 98 08/29/18 04:18 08/29/18 08:00 08/29/18 12:00 Temperature 97.4 F L 98.6 F 98.3 F Pulse Rate 72 75 80 Respiratory Rate 16 16 18 Blood Pressure 126/70 122/56 L 113/59 L Pulse Oximetry 99 97 97 Intake & Output 08/28/18 08/29/18 08/29/18 18:59 06:59 18:59 Intake Total 200 / 200 3257.5 / 3257.5 100 / 100 Output Total 960 / 960 875 / 875 Balance 200 / 200 2297.5 / 2297.5 -775 / -775 Weight 80.6 kg Intake: IV 200 / 200 1617.5 / 1617.5 100 / 100 NS Inj 1,000 ML @ 100 mls/hr IV 1000 / 1000 .CONT .Q10H ROBBIE Rx#:[id number] Vancomycin Inj 1,750 MG In NS 517.5 / 517.5 Inj 500 ML @ 250 mls/hr IV.SIG Q18H ROBBIE Rx#:[id number] Mefoxin Inj 2 GM In NS Inj 100 200 / 200 100 / 100 100 / 100 ML @ 200 mls/hr IV.SIG Q8H ROBBIE Rx#:[id number] Oral 1140 / 1140 Anesthesia Amount 500 / 500 Output: Urine 950 / 950 875 / 875 Estimated Blood Loss Other: Date of Last Bowel Movement 08/28/18 08/28/18 Weight On Admission 79.379 kg 08/28/18 19:35 Wound - Finger Gram Stain - Final 08/28/18 19:35 Wound - Finger Wound Culture - Preliminary No growth in 24 hours 08/27/18 06:10 Blood - Peripheral Aerobic Blood Culture - Preliminary No growth in 2 days 08/27/18 06:10 Blood - Peripheral Anaerobic Blood Culture - Preliminary No growth in 2 days 08/27/18 06:10 Blood - Peripheral Aerobic Blood Culture - Preliminary No growth in 2 days 08/27/18 06:10 Blood - Peripheral Anaerobic Blood Culture - Preliminary No growth in 2 days 08/28/18 19:35 Wound - Finger Fungal Smear - Final No fungal elements seen 08/28/18 19:35 Wound - Finger Fungal Culture - Pending 08/28/18 19:35 Wound - Finger Acid Fast Bacilli Smear - Pending 08/28/18 19:35 Wound - Finger Mycobacterial Culture - Pending Lab - Hematology Results 08/28/18 08/29/18 12:45 07:59 WBC 17.8 H 12.9 H RBC 3.93 L 3.77 L Hgb 9.8 L 9.4 L Hct 31.0 L 29.7 L MCV 78.8 L 78.8 L MCH 25.1 L 25.0 L MCHC 31.8 L 31.7 L RDW 15.7 15.6 Plt Count 539 H 520 H MPV 5.9 L 6.0 L Neut % (Auto) 87.2 H 82.8 H Lymph % (Auto) 5.9 L 9.2 [place] % (Auto) 6.4 7.1 Eos % (Auto) 0.2 0.5 Baso % (Auto) 0.3 0.4 Neut # (Auto) 15.5 H 10.7 H Lymph # (Auto) 1.1 1.2 [place] # (Auto) 1.1 H 0.9 Eos # (Auto) 0.0 0.1 Baso # (Auto) 0.0 0.1 WBC Differential . . Differential Comment Auto diff final Auto diff final Lab - Chemistry Results 08/27/18 08/28/18 08/28/18 21:08 08:09 08:28 Sodium 135 L Potassium 3.2 L D Chloride 99 Carbon Dioxide 25.6 Anion Gap 10 BUN 18 Creatinine 0.63 Estimated GFR Greater than 89 POC Glucose 263 H 285 H Random Glucose 217 H D Calcium 9.3 D 08/28/18 08/28/18 08/29/18 16:35 18:14 07:20 Sodium Potassium Chloride Carbon Dioxide Anion Gap BUN Creatinine Estimated GFR POC Glucose 137 H 120 H 203 H Random Glucose Calcium 08/29/18 08/29/18 08/29/18 07:59 11:45 16:57 Sodium 137 Potassium 4.0 D Chloride 102 Carbon Dioxide 26.8 Anion Gap 8 BUN 18 Creatinine 0.71 Estimated GFR Greater than 89 POC Glucose 190 H 159 H Random Glucose 202 H Calcium 8.5 D Imaging: ITS Impressions Hand X-Ray 08/27/18 02:55 CONCLUSION: 1. Unremarkable radiographs of the left hand. Physical Exam: GENERAL: awake and alert, not in respiratory distress. SKIN: Warm and moist. No generalized rash, no ecchymoses and no evidence of embolic lesions. HEAD: Atraumatic. Normocephalic. No temporal wasting, or tenderness. EYES: [place] conjunctiva. No petechia or hemorrhage. Pupils equal, round and reactive to light. Extraocular movements full and intact. No scleral icterus. No injection or drainage. EARS, NOSE AND THROAT: Nose without bleeding or purulent nasal discharge. No sinus tenderness. Mucous membranes pink and moist. No oral lesions noted. No exudate. No oral thrush. NECK: Trachea midline. Supple and not tender, no meningeal signs CARDIOVASCULAR: Regular rate and rhythm. No murmurs, rubs or gallops heard RESPIRATORY: Clear to auscultation. Breath sounds equal bilaterally. No rales , wheezing or rhonchi ABDOMEN: Soft, non-tender, nondistended. Bowel sounds present and normoactive. No guarding. No rebound. No organomegaly. EXTREMITIES: No clubbing, cyanosis. L hand has dressing in place. No calf tenderness. Well perfused and warm. NEUROLOGICAL: Grossly nonfocal. PSYCHIATRIC: Normal affect, calm and cooperative. LINE: No evidence of infection Assessment and Plan - Plan Impression Infection L hand, with M abscessus, looks worse and has lymphangitis going up his wrist L4 discitis, ?if this is also M abscessus etiology; biopsy no osteo, C/S negative, but he was on Abx Recommendation Continue vanco which he was getting previously Restart Biaxin and add Cefoxitin for M abscessus Add Primaxin Get BC for AFB Follow C/S Monitor progress
[2018-08-30] MEDS: Acetaminophen 325 MG Tablet PO PRN (00:57)
[2018-08-30] MEDS: Sod Chloride 0.9% Inj 1,000 ML IV.CONT SCH ×2 (03:54→18:30)
[2018-08-30] MEDS: Vancomycin Inj 2,000 MG in Sodium Chlor 0.9% Inj 500 ML IV.SIG SCH ×2 (03:54→22:23)
[2018-08-30 08:09] LABS: Glomerular Filtration Rate Greater Than 89 mL/min (>89)
[2018-08-30] MEDS: Insulin NovoLOG Aspart Correctional Sugar Inj SQ SCH ×4 (08:24→22:16)
[2018-08-30] MEDS: Insulin Detemir Inj 1,000 UNIT/10 ML Vial SQ SCH ×2 (09:19→22:16)
[2018-08-30] MEDS: Furosemide 20 MG Tablet PO SCH ×2 (09:20→22:17)
[2018-08-30] MEDS: dilTIAZem CD 240 MG Capsule PO SCH (09:20)
[2018-08-30] MEDS: Ramipril 2.5 MG Capsule PO SCH (09:20)
[2018-08-30] MEDS: Senna/Docusate Sodium 8.6/50 MG Tablet PO SCH ×2 (09:20→22:18)
--- NOTE | 2018-08-30 09:25 | P.PNID ---
Subjective Remarks: Patient is a 58-year-old male, presented to the hospital for further antibiotic treatment. He was recently hospitalized July 18 - August 09 and at that time he was diagnosed to have infection on his left hand. He had undergone surgery, and the culture grew Mycobacterium abscesses. During this hospitalization also he was diagnosed to have discitis in L4. Arrangements were made for him to get his IV antibiotics at home and he was on IV vancomycin , as well as oral Biaxin. Patient stated he had DrAristides's choice. Patient stated he was not feeling good, and his PICC line accidentally came out. The PICC line came out August 24. He presented back to the hospital on August 26 for further evaluation and treatment. He is complaining of pain in his left hand. I had noticed redness, and he really could not tell me how long it has been read. He also noted when redness going up his left wrist. Patient also complaining of back pain. Patient stated also that he gets sweats which is not unusual for him. Since admission he has not been febrile. His WBC is greater than 20,000. Patient was referred to Dr. Orellana for ID follow-up, and he really can tell me whether he had seen the doctor. Infectious disease consultation has been requested to evaluate the patient. Notes reviewed Temps okay Feels better Previous culture with M abscesses no susceptibility testing available yet Antibiotics: IV vancomycin Cefoxitin Biaxin Primaxin Lines: PIV Past Medical History: Amputated toe GERD (gastroesophageal reflux disease) Hyperlipidemia Afib Back pain Diabetes Hypertension Osteomyelitis Foot surgery Allergies/Adverse Reactions: Allergies No Known Drug Allergies Allergy (Verified 08/06/18 15:59) none *MDRO Multi-Drug Resistant Organism Adverse Reaction (Unknown, Uncoded 06/16/17 16:34) MRSA MRSA (foot wound) - 02/12/15, 11/12/16, 03/29/17; (toe) - 03/2016 Objective Vital Signs 08/29/18 12:00 08/29/18 16:00 08/29/18 20:00 Temperature 98.3 F 98.9 F 100.7 F H Pulse Rate 80 69 84 Respiratory Rate 18 16 18 Blood Pressure 113/59 L 127/62 127/64 Pulse Oximetry 97 98 100 08/29/18 21:00 08/30/18 00:00 08/30/18 04:00 Temperature 99.9 F H 100.5 F H 99.7 F H Pulse Rate 82 84 Respiratory Rate 18 18 Blood Pressure 146/70 H 147/74 H Pulse Oximetry 98 97 08/30/18 06:41 08/30/18 08:00 Temperature 98.3 F Pulse Rate 84 Respiratory Rate 16 20 Blood Pressure 146/77 H Pulse Oximetry 99 Intake & Output 08/29/18 08/30/18 08/30/18 18:59 06:59 18:59 Intake Total 100 / 100 1237.5 / 1237.5 Output Total 1875 / 1875 1100 / 1100 2600 / 2600 Balance -1775 / -1775 137.5 / 137.5 -2600 / -2600 Weight 80.6 kg Intake: IV 100 / 100 1237.5 / 1237.5 Vancomycin Inj 2,000 MG In NS 1037.5 / 1037.5 Inj 500 ML @ 250 mls/hr IV.SIG Q18H ROBBIE Rx#:[id number] Mefoxin Inj 2 GM In NS Inj 100 100 / 100 200 / 200 ML @ 200 mls/hr IV.SIG Q8H ROBBIE Rx#:[id number] Output: Urine 1875 / 1875 1100 / 1100 2600 / 2600 Other: Date of Last Bowel Movement 08/28/18 08/30/18 00:50 Blood - Peripheral Aerobic Blood Culture - Pending 08/30/18 00:50 Blood - Peripheral Anaerobic Blood Culture - Pending 08/30/18 00:55 Blood - Peripheral Aerobic Blood Culture - Pending 08/30/18 00:55 Blood - Peripheral Anaerobic Blood Culture - Pending 08/28/18 19:35 Wound - Finger Gram Stain - Final 08/28/18 19:35 Wound - Finger Wound Culture - Preliminary No growth in 24 hours 08/27/18 06:10 Blood - Peripheral Aerobic Blood Culture - Preliminary No growth in 2 days 08/27/18 06:10 Blood - Peripheral Anaerobic Blood Culture - Preliminary No growth in 2 days 08/27/18 06:10 Blood - Peripheral Aerobic Blood Culture - Preliminary No growth in 2 days 08/27/18 06:10 Blood - Peripheral Anaerobic Blood Culture - Preliminary No growth in 2 days 08/28/18 19:35 Wound - Finger Fungal Smear - Final No fungal elements seen 08/28/18 19:35 Wound - Finger Fungal Culture - Pending 08/28/18 19:35 Wound - Finger Acid Fast Bacilli Smear - Pending 08/28/18 19:35 Wound - Finger Mycobacterial Culture - Pending Lab - Hematology Results 08/28/18 08/29/18 12:45 07:59 WBC 17.8 H 12.9 H RBC 3.93 L 3.77 L Hgb 9.8 L 9.4 L Hct 31.0 L 29.7 L MCV 78.8 L 78.8 L MCH 25.1 L 25.0 L MCHC 31.8 L 31.7 L RDW 15.7 15.6 Plt Count 539 H 520 H MPV 5.9 L 6.0 L Neut % (Auto) 87.2 H 82.8 H Lymph % (Auto) 5.9 L 9.2 [place] % (Auto) 6.4 7.1 Eos % (Auto) 0.2 0.5 Baso % (Auto) 0.3 0.4 Neut # (Auto) 15.5 H 10.7 H Lymph # (Auto) 1.1 1.2 [place] # (Auto) 1.1 H 0.9 Eos # (Auto) 0.0 0.1 Baso # (Auto) 0.0 0.1 WBC Differential . . Differential Comment Auto diff final Auto diff final Lab - Chemistry Results 08/28/18 08/28/18 08/29/18 16:35 18:14 07:20 Sodium Potassium Chloride Carbon Dioxide Anion Gap BUN Creatinine Estimated GFR POC Glucose 137 H 120 H 203 H Random Glucose Calcium 08/29/18 08/29/18 08/29/18 07:59 11:45 16:57 Sodium 137 Potassium 4.0 D Chloride 102 Carbon Dioxide 26.8 Anion Gap 8 BUN 18 Creatinine 0.71 Estimated GFR Greater than 89 POC Glucose 190 H 159 H Random Glucose 202 H Calcium 8.5 D 08/29/18 08/30/18 08/30/18 20:28 07:35 08:00 Sodium Potassium Chloride Carbon Dioxide Anion Gap BUN Creatinine 0.65 Estimated GFR Greater than 89 POC Glucose 220 H 100 Random Glucose Calcium Imaging: ITS Impressions Hand X-Ray 08/27/18 02:55 CONCLUSION: 1. Unremarkable radiographs of the left hand. Physical Exam: GENERAL: awake and alert, not in respiratory distress. SKIN: Warm and moist. No generalized rash HEAD: Atraumatic. Normocephalic. No temporal wasting, or tenderness. EYES: [place] conjunctiva. No petechia or hemorrhage. Pupils equal, round and reactive to light. Extraocular movements full and intact. No scleral icterus. No injection or drainage. EARS, NOSE AND THROAT: Nose without bleeding or purulent nasal discharge. No sinus tenderness. Mucous membranes pink and moist. No oral lesions noted. No exudate. No oral thrush. NECK: Trachea midline. Supple and not tender, no meningeal signs CARDIOVASCULAR: Regular rate and rhythm. No murmurs, rubs or gallops heard RESPIRATORY: Clear to auscultation. Breath sounds equal bilaterally. No rales , wheezing or rhonchi ABDOMEN: Soft, non-tender, nondistended. Bowel sounds present and normoactive. No guarding. No rebound. No organomegaly. EXTREMITIES: No clubbing, cyanosis. L hand has dressing in place. No calf tenderness. Well perfused and warm. NEUROLOGICAL: Grossly nonfocal. PSYCHIATRIC: Normal affect, calm and cooperative. LINE: No evidence of infection Assessment and Plan - Plan Impression Infection L hand, with M abscessus, looks worse and has lymphangitis going up his wrist L4 discitis, ?if this is also M abscessus etiology; biopsy no osteo, C/S negative, but he was on Abx Recommendation Continue vanco which he was getting previously Continue Biaxin and add Cefoxitin for M abscessus Will use Amikacin instead of Primaxin - follow creat while on Amikacin Follow C/S Monitor progress
[2018-08-30] MEDS ORDERED: Amikacin Consult Pharmacy OTHER PRN (09:29)
--- NOTE | 2018-08-30 11:57 | P.DIET ---
Nutritional Evaluation Screening comments: [facility] [place] received 08/29. It states " wants to eat more - supplements". Pt was unavailable when visited. Pt is on a 2000 ADA Cardiac diet with supplements already ordered. He receives a Glucerna Shake on every tray ( 220 kcals/ 10gms protein). RD will f/u to offer education at lalter date.
--- NOTE | 2018-08-30 12:06 | P.PN ---
Subjective Interval history: now main complains Of low back pain- worsening no fever or chills, no hand pain Physical Exam Vital signs: Vital Signs 08/29/18 16:00 08/29/18 20:00 08/29/18 21:00 Temperature 98.9 F 100.7 F H 99.9 F H Pulse Rate 69 84 Respiratory Rate 16 18 Blood Pressure 127/62 127/64 Pulse Oximetry 98 100 08/30/18 00:00 08/30/18 04:00 08/30/18 06:41 Temperature 100.5 F H 99.7 F H Pulse Rate 82 84 Respiratory Rate 18 18 16 Blood Pressure 146/70 H 147/74 H Pulse Oximetry 98 97 08/30/18 08:00 Temperature 98.3 F Pulse Rate 79 Respiratory Rate 20 Blood Pressure 146/77 H Pulse Oximetry 99 Intake & Output 08/29/18 08/30/18 08/30/18 18:59 06:59 18:59 Intake Total 100 / 100 1237.5 / 1237.5 Output Total 1875 / 1875 1100 / 1100 2600 / 2600 Balance -1775 / -1775 137.5 / 137.5 -2600 / -2600 Weight 80.6 kg Intake: IV 100 / 100 1237.5 / 1237.5 Vancomycin Inj 2,000 MG In NS 1037.5 / 1037.5 Inj 500 ML @ 250 mls/hr IV.SIG Q18H [facility] Rx#:[id number] Mefoxin Inj 2 GM In NS Inj 100 100 / 100 200 / 200 ML @ 200 mls/hr IV.SIG Q8H [facility] Rx#:[id number] Output: Urine 1875 / 1875 1100 / 1100 2600 / 2600 Other: Date of Last Bowel Movement 08/28/18 Narrative: in NAD. SKIN: right axillary area- with erythehmatous rashes HEENT: Normocephalic. Pupils equal and round. Mucous membranes pink and moist. CARDIOVASCULAR: Regular rate and rhythm. No murmur appreciated. RESPIRATORY: No accessory muscle use. Clear to auscultation. Breath sounds equal bilaterally. GASTROINTESTINAL: Abdomen soft, non-tender, Normoactive bowel sounds x4. MUSCULOSKELETAL: No obvious deformities. Right shoulder swelling- feels like effusion/bursitis, tender, no overlying erythema though, with limitation in range of motion Left UE- post op dressing in place low back - no erythema, no tenderness negtive SLR, motor 5/5 NEUROLOGICAL: Awake and alert. No obvious cranial nerve deficits. Motor grossly within normal limits. Moving all extremities spontaneously. Results - Labs CBC & Chem 7: 08/29/18 07:59 08/30/18 07:35 Laboratory Results - last 24 hr 08/29/18 08/29/18 08/30/18 16:57 20:28 07:35 Creatinine 0.65 Estimated GFR Greater than 89 POC Glucose 159 H 220 H 08/30/18 08:00 Creatinine Estimated GFR POC Glucose 100 Microbiology 08/27/18 06:10 Blood - Peripheral Aerobic Blood Culture - Preliminary No growth in 3 days 08/27/18 06:10 Blood - Peripheral Anaerobic Blood Culture - Preliminary No growth in 3 days 08/27/18 06:10 Blood - Peripheral Aerobic Blood Culture - Preliminary No growth in 3 days 08/27/18 06:10 Blood - Peripheral Anaerobic Blood Culture - Preliminary No growth in 3 days 08/28/18 19:35 Wound - Finger Gram Stain - Final 08/28/18 19:35 Wound - Finger Wound Culture - Preliminary No growth in 48 hours 08/28/18 19:35 Wound - Finger Acid Fast Bacilli Smear - Final No acid fast bacilli seen 08/28/18 19:35 Wound - Finger Fungal Smear - Final No fungal elements seen - Procedures 08/28 exploration, flexor tenosynovectomy, debridement/excision of the infected/ necrotic flexor digitorum superficialis, left palm/ring finger Assessment and Plan - Plan 58-year-old male with history of HTN, HLD, GERD, A. fib, DM, recent hospitalization for lumbar spine discitis currently on outpatient IV vancomycin via PICC, presents with complaints of back pain, hand pain, and dislodgment of PICC line. Infection L hand, with M abscessus, looks worse and has lymphangitis going up his wrist L4 discitis, ?if this is also M abscessus etiology; biopsy no osteo, C/S negative, but he was on Abx Sepsis: patient meets sepsis criteria with leukocytosis WBC 23.9K, tachycardia HR 105, and suspected sourcelumbar discitis vs hand cellulitis. -Monitor CBC, WBC trending down - today 11/03 -continue antibiotics per ID, including IV Vanco, IV cefoxitin, po Clarithromycin Suppurative Tenosynovitis of flexor tendon of left hand S/P exploration, flexor tenosynovectomy, debridement/excision of the infected/ necrotic flexor digitorum superficialis, left palm/ring fingerLeft hand cellulitis- 08/28 -EMR reviewed, prior wound culture with mycobacterium abscessus -On antibiotics as above -Pain control with patient's Oxycodone 30mg q4h prn -ID consulted as above -Hand surgery ff along with us ff up on OR cultures Subacute discitis: Diagnosed on previous admission, lumbar spine MRI showed discitis of L4-5. Meets sepsis as above. Worsening back pain - get a repeat CT/MRI study- previous MRI with edema - if worsening- get neurosurgery input exam - no incontinence, gait steady, motor 5/5 -Continue on IV vancomycin with pharmacy consult, IV Cefoxitin, and continue patient's po clarithromycin -Blood cultures collected, preliminary with NGTD -Pain control with IV morphine prn -ID ff -Hold off on replacing PICC for now with ongoing sepsis History of Atrial Fibrillation S/P Ablation - telemetry in SR -continue patient's anticoagulation with Eliquis -continue patient's Cardizem -Monitor on telemetry Diabetes Mellitus: chronic -continue patient's Levemir 50u sq bid -Monitor Accu-checks and cover with SSI -Diabetic diet, add Glucerna shakes to meals HTN/HLD: chronic -continue patient's ramipril, lasix -Monitor BP, adjust antihypertensives as needed GERD: chronic -continue patient's protonix DVT Prophylaxis: on Eliquis
[2018-08-30] MEDS: AMIKACIN IV.SIG SCH (14:49)
[2018-08-30] MEDS: SODIUM CHLOR 0.9% IV.SIG SCH (14:49)
[2018-08-30] MEDS ORDERED: Gadobutrol PF 10 MMOL/10 ML Vial (for RAD) IV.SIG ONE (16:13)
--- NOTE | 2018-08-30 16:25 | MR ---
EXAM DATE: 08/30/2018 12:00 AM EDT AGE/SEX: 58 years / Male INDICATIONS: Osteomyelitis. Pain. CLINICAL DATA: This is the patient's initial encounter. Patient reports that signs and symptoms have been present for 1 week and indicates a pain score of 8/10. MEDICAL/SURGICAL HISTORY: Hypertension. Diabetes mellitus type II. . Zen sx. COMPARISON: No prior exams available for comparison. TECHNIQUE: Multiplanar, multisequence MRI examination of the lumbar spine was performed without and with 8 ml Gadavist (gadobutrol) contrast as a single exam dose. FINDINGS: The most caudal-appearing lumbar vertebra is numbered as L5. No significant compression deformities , spondylolisis, or spondylolesthesis is seen. Multiple Schmorl nodes formation is seen. L1-L2: No appreciable compromise to the thecal sac, or the exiting nerve roots is seen. The neural foramina and lateral recesses are patent bilaterally. Slight bulging disc and hypertrophic changes ar e seen with indentation on the thecal sac and no significant compromise to the thecal sac or the exit ing nerve roots. L2-L3: Significant degenerative changes are present in the disc space and facets with significant ir regularity of the inferior endplate of L2 most likely chronic with discogenic edema. There is signifi cant neural foramina compromise on the left due to asymmetrical bulging disc and hypertrophic changes . There is slight overall thecal sac stenosis due to bulging disc and hypertrophic changes. L3-L4: No appreciable compromise to the thecal sac, or the exiting nerve roots is seen. The neural foramina and lateral recesses are patent bilaterally. L4-L5: There is extensive marrow edema involving L4 and L5 vertebrae with significant enhancement on the postcontrast portion which also involves the disc. There is abnormal soft tissue enhancement tow ards the anterior portion underneath the anterior junctional ligament with a large extruded disc frag ment anteriorly. There is also extensive enhancement in epidural space posteriorly characteristic of epidural extension of the infectious process and epidural abscess which extends cephaladly to mid bod y of L4 and partially caudally to mid body of L5. Multiple small pockets of abscess are present in th e posterior portion of the disc partially extending into the endplates. Significant thecal sac stenos is is present at this level and is also significant bilateral neural foraminal compromise. Paraverteb ral soft tissue process is seen which also represents extension of this infectious process anteriorly and laterally. L5-S1: No appreciable compromise to the thecal sac, or the exiting nerve roots is seen. The neural foramina and lateral recesses are patent bilaterally. CONCLUSION: 1. Discitis and osteomyelitis L4-5 with significant thecal sac stenosis due to epidural abscess and infectious process extends beyond the boundaries of this in the paravertebral location and anterior p revertebral location as well. Epidural abscess extends cephaladly to mid body of L4 and caudally to m id body of L5. 2. Multiple small pockets of abscess are seen in the posterior portion of the disc extending into th e epidural space. 3. Slight overall thecal sac stenosis L2-3. 4. Neural foraminal compromise left L2-3, bilateral L4-5. Electronically signed by: Gigi Hadley MD 08/30/2018 4:24 PM EDT
--- NOTE | 2018-08-30 17:35 | P.PN ---
Subjective Interval history: complains of mild pain complaint with dressing and limb elevation complains of back pain had mri for the same Physical Exam Vital signs: Vital Signs 08/29/18 20:00 08/29/18 21:00 08/30/18 00:00 Temperature 100.7 F H 99.9 F H 100.5 F H Pulse Rate 84 82 Respiratory Rate 18 18 Blood Pressure 127/64 146/70 H Pulse Oximetry 100 98 08/30/18 04:00 08/30/18 06:41 08/30/18 08:00 Temperature 99.7 F H 98.3 F Pulse Rate 84 79 Respiratory Rate 18 16 20 Blood Pressure 147/74 H 146/77 H Pulse Oximetry 97 99 08/30/18 12:00 08/30/18 16:00 Temperature 97.9 F 98.7 F Pulse Rate 83 79 Respiratory Rate 20 20 Blood Pressure 140/62 134/65 Pulse Oximetry 100 100 Intake & Output 08/29/18 08/30/18 08/30/18 18:59 06:59 18:59 Intake Total 100 / 100 1237.5 / 1237.5 100 / 100 Output Total 1875 / 1875 1100 / 1100 3400 / 3400 Balance -1775 / -1775 137.5 / 137.5 -3300 / -3300 Weight 80.6 kg Intake: IV 100 / 100 1237.5 / 1237.5 100 / 100 Vancomycin Inj 2,000 MG In NS 1037.5 / 1037.5 Inj 500 ML @ 250 mls/hr IV.SIG Q18H [facility] Rx#:[id number] Mefoxin Inj 2 GM In NS Inj 100 100 / 100 200 / 200 100 / 100 ML @ 200 mls/hr IV.SIG Q8H [facility] Rx#:[id number] Output: Urine 1875 / 1875 1100 / 1100 3400 / 3400 Other: Date of Last Bowel Movement 08/28/18 Narrative: examination of the left hand: intact dressing packing in place very minimal drainage surrounding skin maceration noted flexion deformity at the PIP joint ring finger noted decreased swelling and erythema able to move the fingers better gram stain: rare wbc wbc count: trending down Results - Labs CBC & Chem 7: 08/29/18 07:59 08/30/18 07:35 Laboratory Results - last 24 hr 08/29/18 08/30/18 08/30/18 20:28 07:35 08:00 Creatinine 0.65 Estimated GFR Greater than 89 POC Glucose 220 H 100 08/30/18 12:32 Creatinine Estimated GFR POC Glucose 178 H Microbiology 08/27/18 06:10 Blood - Peripheral Aerobic Blood Culture - Preliminary No growth in 3 days 08/27/18 06:10 Blood - Peripheral Anaerobic Blood Culture - Preliminary No growth in 3 days 08/27/18 06:10 Blood - Peripheral Aerobic Blood Culture - Preliminary No growth in 3 days 08/27/18 06:10 Blood - Peripheral Anaerobic Blood Culture - Preliminary No growth in 3 days 08/28/18 19:35 Wound - Finger Gram Stain - Final 08/28/18 19:35 Wound - Finger Wound Culture - Preliminary No growth in 48 hours 08/28/18 19:35 Wound - Finger Acid Fast Bacilli Smear - Final No acid fast bacilli seen - Imaging Impressions Lumbar Spine MRI 08/30/18 00:00 CONCLUSION: 1. 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 Epidural abscess extends cephaladly to mid body of L4 and caudally to mid body of L5. 2. Multiple small pockets of abscess are seen in the posterior portion of the disc extending into the epidural space. 3. Slight overall thecal sac stenosis L2-3. 4. Neural foraminal compromise left L2-3, bilateral L4-5. - Procedures 08/28 exploration, flexor tenosynovectomy, debridement/excision of the infected/ necrotic flexor digitorum superficialis, left palm/ring finger Assessment and Plan - Assessment (1) Suppurative tenosynovitis of flexor tendon of left hand Code(s): M65.142 - Other infective (teno)synovitis, left hand Status: Chronic - Plan 58 year old male s/p flexor tenosynovectomy, drainage, tendon debridement left palm/ring finger POD 2 Plan: packing pulled out couple of cms surrounding skin is cleaned with alcohol wipes dry dressing applied held in place soft roll and cling continue with antibiotics based on ID recommendations continue with limb elevation and range of motion exercises Dr. Gaston will be covering for me over the weekend.
[2018-08-30] MEDS ORDERED: Pharmacy Ordered Lab Info OTHER ONE (22:00)
[2018-08-31] MEDS: Sod Chloride 0.9% Inj 1,000 ML IV.CONT SCH ×3 (00:37→21:44)
--- NOTE | 2018-08-31 07:58 | P.CONNS ---
History of Present Illness Primary Care Provider: No Primary Care Physician Chief Complaint: Osteomyelitis History of Present Illness: Mr. Sandoval is a 58 y/o male with L4/5 osteomyelitis/discitis, on treatment since the end of June 2018. He had a few days at the beginning of the month where his PICC line came out and he was not receiving IV antibiotics, prompting return to the hospital. On return, his inflammatory markers were markedly elevated. He resume antibiotics and they have expectedly declined. He is having severe mechanical back pain, prompting a repeat MRI of the lumbar spine. MRI of the lumbar spine demonstrated interval erosion of the inferior endplate of L4 and superior endplate of L5 compared to his June 2018 MRI. There is a small epidural abscess. He has severe stenosis at L4/5, unchanged since June 2018. He denies neurologic deficit (weakness, numbness, paresthesias) and denies any pain in his lower extremities. His low back pain is worsened when upright and improved when laying flat. Review of Systems All other systems reviewed negative except as stated in HPI [facility] - History History Provided By: Patient - Medical History Medical History: Medical History (Last Reviewed 08/27/18 @ 16:59 by Nelli Reilly) Amputated toe GERD (gastroesophageal reflux disease) Hyperlipidemia Afib Back pain Diabetes Hypertension Osteomyelitis - Surgical History Surgical History: Surgical History (Last Reviewed 08/27/18 @ 16:59 by Nelli Reilly) H/O foot surgery - Family History Family History: Family History (Last Reviewed 08/27/18 @ 16:59 by Nelli Reilly) Other Coronary artery disease - Tobacco History Second Hand Smoke Exposure: No Smoking Status: Never smoker - Alcohol History How Often Do You Have a Drink Containing Alcohol: Never - Substance Use History Substance History: No History of Abuse - Travel History Recent Travel in the [place] Within the Last 8 Weeks: No Recent Travel Out of the Country Within the Last 8 Weeks: No - Immunization History Tetanus Immunization: >5 Years Hx Influenza Vaccine This Season: No Medications and Allergies Active Medications: Active Medications Acetaminophen (Tylenol) 650 mg PO Q4H PRN PRN Reason: fever > 100.4/DOBBS Last Admin: 08/30/18 00:57 Dose: 650 mg Al Hydroxide/Mg Hydroxide (Milk Of Magnesia Liq) 30 ml PO Q12H PRN PRN Reason: Mild Constipation Bisacodyl (Dulcolax Supp) 10 mg RECTAL DAILY PRN PRN Reason: SEVERE CONSITIPATION Clarithromycin (Biaxin) 500 mg PO Q12HR [facility] Last Admin: 08/30/18 22:18 Dose: 500 mg Dextrose (D50w Vial) 50 ml IV.PUSH UNSCH PRN PRN Reason: PER HYPOGLYCEMIA PROTOCOL Diltiazem HCl (Cardizem Cd 24hr) 240 mg PO DAILY [facility] Last Admin: 08/30/18 09:20 Dose: 240 mg Furosemide (Lasix) 20 mg PO BID [facility] Last Admin: 08/30/18 22:17 Dose: 20 mg Glucagon (Glucagon Inj) 1 mg OTHER PRN PRN PRN Reason: for Hypoglycemia Protocol Sodium Chloride (Ns Inj) 1,000 mls @ 100 mls/hr IV.CONT .Q10H [facility] Last Admin: 08/31/18 00:37 Dose: Not Given Cefoxitin Sodium 2 gm/ Sodium (Chloride) 100 mls @ 200 mls/hr IV.SIG Q8H [facility] Last Infusion: 08/31/18 01:47 Dose: Infused Vancomycin HCl 2,000 mg/ (Sodium Chloride) 520 mls @ 250 mls/hr IV.SIG Q18H [facility] Last Infusion: 08/31/18 00:38 Dose: Infused Amikacin Sulfate 1,200 mg/ (Sodium Chloride) 254.8 mls @ 254.8 mls/hr IV.SIG Q24H [facility] Last Infusion: 08/30/18 15:49 Dose: Infused Insulin Aspart (Novolog Insulin Correctional Sugar Inj) 0 unit SQ ACHS [facility]; Protocol Last Admin: 08/30/18 22:16 Dose: 3 unit Insulin Detemir (Levemir Inj) 50 unit SQ BID [facility] Last Admin: 08/30/18 22:16 Dose: 50 unit Lactulose (Lactulose Liq) 30 ml PO DAILY PRN PRN Reason: SEVERE CONSITIPATION Miscellaneous Information ([facility] Ordered Lab Info) 0 each OTHER ONCE ONE Stop: 09/01/18 09:46 Oxycodone HCl (Roxicodone) 30 mg PO Q4H PRN PRN Reason: PAIN SCALE 5-10 Last Admin: 08/31/18 02:29 Dose: 30 mg Pantoprazole Sodium (Protonix) 40 mg PO DAILY [facility] Last Admin: 08/30/18 09:20 Dose: 40 mg Pharmacy Profile Note (Vancomycin Consult Pharmacy) 1 each OTHER UNSCH PRN PRN Reason: Pharmacy to dose Pharmacy Profile Note (Amikacin Consult Pharmacy) 1 each OTHER UNSCH PRN PRN Reason: Pharmacy to dose Ramipril (Altace) 2.5 mg PO DAILY [facility] Last Admin: 08/30/18 09:20 Dose: 2.5 mg Senna/Docusate Sodium (Aliyah-Colace) 1 tab PO BID [facility] Last Admin: 08/30/18 22:18 Dose: 1 tab Sennosides (Senokot) 17.2 mg PO Q12H PRN PRN Reason: Moderate Constipation Allergies Allergy/AdvReac Type Severity Reaction Status Date / Time No Known Drug Allergies Allergy none Verified 08/06/18 15:59 *MDRO Multi-Drug Resistant AdvReac Unknown MRSA Uncoded 06/16/17 16:34 Organism Home Medications Medication Instructions Recorded Confirmed Type apixaban [Eliquis] 5 mg PO BID 06/09/18 07/18/18 History diltiazem HCl 240 mg PO DAILY 06/09/18 07/22/18 History furosemide 20 mg PO BID 06/09/18 07/18/18 History insulin glargine [Lantus Solostar 50 unit SUB-Q BID 06/09/18 07/18/18 History U-100 Insulin] pantoprazole [Protonix] 40 mg PO DAILY 06/09/18 07/18/18 History ramipril 2.5 mg PO DAILY 06/09/18 07/18/18 History oxycodone 30 mg PO Q4H PRN 07/22/18 07/22/18 History Exam Vital signs: Vital Signs 08/30/18 08:00 08/30/18 12:00 08/30/18 16:00 Temperature 98.3 F 97.9 F 98.7 F Pulse Rate 79 83 79 Respiratory Rate 20 20 20 Blood Pressure 146/77 H 140/62 134/65 Pulse Oximetry 99 100 100 08/30/18 20:00 08/30/18 23:43 08/31/18 00:00 Temperature 98.8 F 99.3 F Pulse Rate 91 H 89 Respiratory Rate 18 18 18 Blood Pressure 110/54 L 138/67 Pulse Oximetry 100 98 08/31/18 03:42 08/31/18 04:00 Temperature 99.0 F Pulse Rate 85 Respiratory Rate 18 18 Blood Pressure 133/66 Pulse Oximetry 99 Intake & Output 08/30/18 08/31/18 08/31/18 18:59 06:59 18:59 Intake Total 354.8 / 354.8 620 / 620 Output Total 3400 / 3400 1500 / 1500 Balance -3045.2 / -3045.2 -880 / -880 Intake: IV 354.8 / 354.8 620 / 620 Amikin Inj 1,200 MG In NS Inj 254.8 / 254.8 250 ML @ 254.8 mls/hr IV.SIG Q24H [facility] Rx#:[id number] Vancomycin Inj 2,000 MG In NS 520 / 520 Inj 500 ML @ 250 mls/hr IV.SIG Q18H [facility] Rx#:[id number] Mefoxin Inj 2 GM In NS Inj 100 100 / 100 100 / 100 ML @ 200 mls/hr IV.SIG Q8H [facility] Rx#:[id number] Output: Urine 3400 / 3400 1500 / 1500 Other: Date of Last Bowel Movement 08/28/18 08/30/18 Narrative: Opens eyes spontaneously Alert and oriented x3 Follows commands x4 5/5 strength throughout Results - Laboratory Findings CBC and BMP: 08/29/18 07:59 08/30/18 07:35 Abnormal lab findings: Abnormal Labs 08/27/18 08/27/18 08/27/18 03:00 03:00 12:51 WBC 23.9 H RBC 3.81 L Hgb 9.9 L Hct 29.7 L MCV 77.8 L MCH 25.9 L MCHC Plt Count 638 H D MPV 6.4 L Neut % (Auto) 87.0 H Lymph % (Auto) 6.3 L Neut # (Auto) 20.8 H [place] # (Auto) 1.4 H Sodium Potassium Chloride 97 L BUN 42 H Estimated GFR 65 L POC Glucose 282 H Random Glucose Calcium 10.4 H Alkaline Phosphatase 157 H Total Protein 8.7 H Albumin 2.9 L Vancomycin Trough 08/27/18 08/27/18 08/28/18 16:26 21:08 08:09 WBC RBC Hgb Hct MCV MCH MCHC Plt Count MPV Neut % (Auto) Lymph % (Auto) Neut # (Auto) [place] # (Auto) Sodium 135 L Potassium 3.2 L D Chloride BUN Estimated GFR POC Glucose 271 H 263 H Random Glucose 217 H D Calcium Alkaline Phosphatase Total Protein Albumin Vancomycin Trough 08/28/18 08/28/18 08/28/18 08:28 12:45 16:35 WBC 17.8 H RBC 3.93 L Hgb 9.8 L Hct 31.0 L MCV 78.8 L MCH 25.1 L MCHC 31.8 L Plt Count 539 H MPV 5.9 L Neut % (Auto) 87.2 H Lymph % (Auto) 5.9 L Neut # (Auto) 15.5 H [place] # (Auto) 1.1 H Sodium Potassium Chloride BUN Estimated GFR POC Glucose 285 H 137 H Random Glucose Calcium Alkaline Phosphatase Total Protein Albumin Vancomycin Trough 08/28/18 08/29/18 08/29/18 18:14 07:20 07:59 WBC 12.9 H RBC 3.77 L Hgb 9.4 L Hct 29.7 L MCV 78.8 L MCH 25.0 L MCHC 31.7 L Plt Count 520 H MPV 6.0 L Neut % (Auto) 82.8 H Lymph % (Auto) Neut # (Auto) 10.7 H [place] # (Auto) Sodium Potassium Chloride BUN Estimated GFR POC Glucose 120 H 203 H Random Glucose Calcium Alkaline Phosphatase Total Protein Albumin Vancomycin Trough 08/29/18 08/29/18 08/29/18 07:59 10:20 11:45 WBC RBC Hgb Hct MCV MCH MCHC Plt Count MPV Neut % (Auto) Lymph % (Auto) Neut # (Auto) [place] # (Auto) Sodium Potassium Chloride BUN Estimated GFR POC Glucose 190 H Random Glucose 202 H Calcium Alkaline Phosphatase Total Protein Albumin Vancomycin Trough 13.2 H 08/29/18 08/29/18 08/30/18 16:57 20:28 12:32 WBC RBC Hgb Hct MCV MCH MCHC Plt Count MPV Neut % (Auto) Lymph % (Auto) Neut # (Auto) [place] # (Auto) Sodium Potassium Chloride BUN Estimated GFR POC Glucose 159 H 220 H 178 H Random Glucose Calcium Alkaline Phosphatase Total Protein Albumin Vancomycin Trough 08/30/18 08/30/18 17:46 21:58 WBC RBC Hgb Hct MCV MCH MCHC Plt Count MPV Neut % (Auto) Lymph % (Auto) Neut # (Auto) [place] # (Auto) Sodium Potassium Chloride BUN Estimated GFR POC Glucose 63 L 228 H Random Glucose Calcium Alkaline Phosphatase Total Protein Albumin Vancomycin Trough - Diagnostic Findings Additional findings: MRI of the lumbar spine demonstrated interval erosion of the inferior endplate of L4 and superior endplate of L5 compared to his June 2018 MRI. There is a small epidural abscess. He has severe stenosis at L4/5, unchanged since June 2018. Assessment and Plan - Plan 58 y/o male with L4/5 osteomyelitis/discitis with small epidural abscess and severe L4/5 stenosis. He has severe mechanical back pain, but no leg pain or neurologic deficit. His mechanical back pain may be attributed to the erosion of the L4/5 vertebral bodies. This may necessitate instrumentation in the future, however implantation of instrumentation at this point would make it more difficult for the infection to clear, and is therefore unindicated. He has severe lumbar stenosis, but no evidence of neurogenic claudication or symptoms in his legs or bowel/bladder dysfunction, therefore decompression alone is not indicated at this time. Plan: Continue IV antibiotics. Will continue to monitor closely. If he develops lower extremity symptoms or bowel/bladder dysfunction, then he may warrant decompression. Monitor fpc following resolution of infection for consideration of instrumentation (lumbar fusion) to resolve mechanical instability contributing to mechanical back pain.
[2018-08-31] MEDS: Insulin NovoLOG Aspart Correctional Sugar Inj SQ SCH ×4 (08:53→21:57)
[2018-08-31] MEDS: Ramipril 2.5 MG Capsule PO SCH (08:53)
[2018-08-31] MEDS: dilTIAZem CD 240 MG Capsule PO SCH (08:54)
[2018-08-31] MEDS: Furosemide 20 MG Tablet PO SCH ×2 (08:55→21:56)
[2018-08-31] MEDS: Insulin Detemir Inj 1,000 UNIT/10 ML Vial SQ SCH ×2 (08:55→21:57)
[2018-08-31] MEDS: Senna/Docusate Sodium 8.6/50 MG Tablet PO SCH ×2 (09:04→21:56)
--- NOTE | 2018-08-31 09:30 | P.PN ---
Subjective Interval history: pain better, no complains of spasms- states occasinal breakfthrough pain- IV Dilaudid helps no incontinence, good BM up and ambulating around Physical Exam Vital signs: Vital Signs 08/30/18 12:00 08/30/18 16:00 08/30/18 20:00 Temperature 97.9 F 98.7 F 98.8 F Pulse Rate 83 79 91 H Respiratory Rate 20 20 18 Blood Pressure 140/62 134/65 110/54 L Pulse Oximetry 100 100 100 08/30/18 23:43 08/31/18 00:00 08/31/18 03:42 Temperature 99.3 F Pulse Rate 89 Respiratory Rate 18 18 18 Blood Pressure 138/67 Pulse Oximetry 98 08/31/18 04:00 08/31/18 08:00 Temperature 99.0 F 97.8 F Pulse Rate 85 80 Respiratory Rate 18 14 Blood Pressure 133/66 138/72 Pulse Oximetry 99 98 Intake & Output 08/30/18 08/31/18 08/31/18 18:59 06:59 18:59 Intake Total 354.8 / 354.8 620 / 620 Output Total 3400 / 3400 1500 / 1500 Balance -3045.2 / -3045.2 -880 / -880 Intake: IV 354.8 / 354.8 620 / 620 Amikin Inj 1,200 MG In NS Inj 254.8 / 254.8 250 ML @ 254.8 mls/hr IV.SIG Q24H ROBBIE Rx#:[id number] Vancomycin Inj 2,000 MG In NS 520 / 520 Inj 500 ML @ 250 mls/hr IV.SIG Q18H ROBBIE Rx#:[id number] Mefoxin Inj 2 GM In NS Inj 100 100 / 100 100 / 100 ML @ 200 mls/hr IV.SIG Q8H ROBBIE Rx#:[id number] Output: Urine 3400 / 3400 1500 / 1500 Other: Date of Last Bowel Movement 08/28/18 08/30/18 08/30/18 Narrative: Alert and oriented x3 anicteric no nuchal rigidity ;vincent- clear regular rhtyhm abdomen soft extremities: LUE- post op dressing intact LE - no edema, 5/5 motor, no sensory deficits good epripheral pulses Results - Labs CBC & Chem 7: 08/29/18 07:59 09/01/18 06:23 Laboratory Results - last 24 hr 08/30/18 08/30/18 08/30/18 12:32 17:46 21:58 POC Glucose 178 H 63 L 228 H 08/31/18 08:04 POC Glucose 129 H Microbiology 08/28/18 19:35 Wound - Finger Gram Stain - Final 08/28/18 19:35 Wound - Finger Wound Culture - Final No growth in 72 hours (aerobically and anaerobically ) 08/27/18 06:10 Blood - Peripheral Aerobic Blood Culture - Preliminary No growth in 3 days 08/27/18 06:10 Blood - Peripheral Anaerobic Blood Culture - Preliminary No growth in 3 days 08/27/18 06:10 Blood - Peripheral Aerobic Blood Culture - Preliminary No growth in 3 days 08/27/18 06:10 Blood - Peripheral Anaerobic Blood Culture - Preliminary No growth in 3 days 08/28/18 19:35 Wound - Finger Acid Fast Bacilli Smear - Final No acid fast bacilli seen - Imaging Impressions Lumbar Spine MRI 08/30/18 00:00 CONCLUSION: 1. 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 Epidural abscess extends cephaladly to mid body of L4 and caudally to mid body of L5. 2. Multiple small pockets of abscess are seen in the posterior portion of the disc extending into the epidural space. 3. Slight overall thecal sac stenosis L2-3. 4. Neural foraminal compromise left L2-3, bilateral L4-5. - Procedures 08/28 exploration, flexor tenosynovectomy, debridement/excision of the infected/ necrotic flexor digitorum superficialis, left palm/ring finger Assessment and Plan - Plan 58-year-old male with history of HTN, HLD, GERD, A. fib, DM, recent hospitalization for lumbar spine discitis currently on outpatient IV vancomycin via PICC, presents with complaints of back pain, hand pain, and dislodgment of PICC line. Sepsis: patient meets sepsis criteria with leukocytosis WBC 23.9K, tachycardia HR 105, and suspected sourcelumbar discitis/ hand cellulitis. Suppurative Tenosynovitis of flexor tendon of left hand S/P exploration, flexor tenosynovectomy, debridement/excision of the infected/ necrotic flexor digitorum superficialis, left palm/ring fingerLeft hand cellulitis- 10/3 -EMR reviewed, prior wound culture with mycobacterium abscessus -On antibiotics as above- On Biaxin, Amikacin, Cefoxitin -Pain control with patient's Oxycodone 30mg q4h prn -ID consulted as above -Hand surgery ff along with us Subacute discitis: Diagnosed on previous admission, lumbar spine MRI showed discitis of L4-5. Meets sepsis as above. Worsening back pain - appreciate Nerusorufgery seeing patient 08/30- no surgical intervention exam - no incontinence, gait steady, motor 03/30 - on above antibiotics -Roxycodone po prn for pain -ID ff -Hold off on replacing PICC for now with ongoing sepsis History of Atrial Fibrillation S/P Ablation - telemetry in SR -continue patient's anticoagulation with Eliquis -continue patient's Cardizem -Monitor on telemetry Diabetes Mellitus: chronic -continue patient's Levemir 50u sq bid -Monitor Accu-checks and cover with SSI -Diabetic diet, add Glucerna shakes to meals HTN/HLD: chronic -continue patient's ramipril, lasix -Monitor BP, adjust antihypertensives as needed GERD: chronic -continue patient's protonix DVT Prophylaxis: on Eliquis
--- NOTE | 2018-08-31 11:04 | P.PNOP ---
Subjective Interval history: left hand is feeling better. Seems brighter than the last time that I saw him in July <Silvana Gaston - Last Filed: 08/31/18 10:58> Physical Exam Vital signs: Vital Signs 08/30/18 12:00 08/30/18 16:00 08/30/18 20:00 Temperature 97.9 F 98.7 F 98.8 F Pulse Rate 83 79 91 H Respiratory Rate 20 20 18 Blood Pressure 140/62 134/65 110/54 L Pulse Oximetry 100 100 100 08/30/18 23:43 08/31/18 00:00 08/31/18 03:42 Temperature 99.3 F Pulse Rate 89 Respiratory Rate 18 18 18 Blood Pressure 138/67 Pulse Oximetry 98 08/31/18 04:00 08/31/18 08:00 Temperature 99.0 F 97.8 F Pulse Rate 85 80 Respiratory Rate 18 14 Blood Pressure 133/66 138/72 Pulse Oximetry 99 98 Intake & Output 08/30/18 08/31/18 08/31/18 18:59 06:59 18:59 Intake Total 354.8 / 354.8 620 / 620 100 / 100 Output Total 3400 / 3400 1500 / 1500 Balance -3045.2 / -3045.2 -880 / -880 100 / 100 Intake: IV 354.8 / 354.8 620 / 620 100 / 100 Amikin Inj 1,200 MG In NS Inj 254.8 / 254.8 250 ML @ 254.8 mls/hr IV.SIG Q24H ROBBIE Rx#:[id number] Vancomycin Inj 2,000 MG In NS 520 / 520 Inj 500 ML @ 250 mls/hr IV.SIG Q18H ROBBIE Rx#:[id number] Mefoxin Inj 2 GM In NS Inj 100 100 / 100 100 / 100 100 / 100 ML @ 200 mls/hr IV.SIG Q8H ROBBIE Rx#:[id number] Output: Urine 3400 / 3400 1500 / 1500 Other: Date of Last Bowel Movement 08/28/18 08/30/18 08/30/18 - Constitutional no acute distress, thin, cooperative - Routine HEENT Exam Eye: Present: EOMI - Detailed Upper Extremity Exam Hand/Fingers: Left intact extensor function, Left intact flexor function ( decreased AROM left ring finger), Left tenderness, Left wound (left ring finger and palm with sutured wound and wound with serosanguinous drainage on the dressing and packing. No erythema and dorsal left hand and wrist wounds well- healed), Left decreased ROM, Left pain with active ROM <AlekSilvana - Last Filed: 08/31/18 10:58> Vital signs: Vital Signs 09/06/18 12:00 09/06/18 16:00 09/06/18 20:00 Temperature 98 F 97.9 F 97.8 F Pulse Rate 76 73 82 Respiratory Rate 20 20 18 Blood Pressure 132/62 135/60 151/63 H Pulse Oximetry 99 100 97 09/07/18 00:00 09/07/18 04:00 09/07/18 08:00 Temperature 97.9 F 97.9 F 97.0 F L Pulse Rate 110 H 87 86 Respiratory Rate 18 18 15 Blood Pressure 127/60 148/67 H 143/65 H Pulse Oximetry 100 99 100 Intake & Output 09/06/18 09/07/18 09/07/18 18:59 06:59 18:59 Intake Total 1640 / 1640 150 / 150 830 / 830 Output Total 700 / 700 1300 / 1300 Balance 940 / 940 -1150 / -1150 830 / 830 Weight 23.5 kg 23.5 kg Intake: IV 200 / 200 150 / 150 50 / 50 Tygacil Inj 50 MG In NS Inj 100 100 / 100 100 / 100 ML @ 200 mls/hr IV.SIG Q12H ROBBIE Rx#:[id number] Mefoxin Inj 2 GM In D5W Inj 50 100 / 100 50 / 50 50 / 50 ML @ 100 mls/hr IV.SIG Q8H ROBBIE Rx#:[id number] Oral 1440 / 1440 780 / 780 Output: Urine 700 / 700 1300 / 1300 Other: # Voids 6 Date of Last Bowel Movement 09/06/18 09/06/18 09/06/18 # Bowel Movements 1 1 <Slim Slaughter - Last Filed: 09/07/18 10:38> Results - Labs CBC & Chem 7: 08/29/18 07:59 08/30/18 07:35 Laboratory Results - last 24 hr 08/30/18 08/30/18 08/30/18 12:32 17:46 21:58 POC Glucose 178 H 63 L 228 H 08/31/18 08:04 POC Glucose 129 H Microbiology 08/28/18 19:35 Wound - Finger Gram Stain - Final 08/28/18 19:35 Wound - Finger Wound Culture - Final No growth in 72 hours (aerobically and anaerobically ) 08/27/18 06:10 Blood - Peripheral Aerobic Blood Culture - Preliminary No growth in 3 days 08/27/18 06:10 Blood - Peripheral Anaerobic Blood Culture - Preliminary No growth in 3 days 08/27/18 06:10 Blood - Peripheral Aerobic Blood Culture - Preliminary No growth in 3 days 08/27/18 06:10 Blood - Peripheral Anaerobic Blood Culture - Preliminary No growth in 3 days 08/28/18 19:35 Wound - Finger Acid Fast Bacilli Smear - Final No acid fast bacilli seen - Imaging Impressions Lumbar Spine MRI 08/30/18 00:00 CONCLUSION: 1. 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 Epidural abscess extends cephaladly to mid body of L4 and caudally to mid body of L5. 2. Multiple small pockets of abscess are seen in the posterior portion of the disc extending into the epidural space. 3. Slight overall thecal sac stenosis L2-3. 4. Neural foraminal compromise left L2-3, bilateral L4-5. - Procedures 08/28 exploration, flexor tenosynovectomy, debridement/excision of the infected/ necrotic flexor digitorum superficialis, left palm/ring finger <Silvana Gaston - Last Filed: 08/31/18 10:58> - Labs CBC & Chem 7: 09/05/18 07:03 09/05/18 07:03 Laboratory Results - last 24 hr 09/06/18 09/06/18 09/06/18 11:53 16:28 20:14 POC Glucose 306 H 333 H 488 H* 09/07/18 07:43 POC Glucose 409 H <Slim Slaughter - Last Filed: 09/07/18 10:38> Assessment and Plan - Problem List (1) Suppurative tenosynovitis of flexor tendon of left hand Code(s): M65.142 - Other infective (teno)synovitis, left hand Status: Chronic Plan: Continue antibiotics po and IV per ID informatics consultant Dr. Dimayuga Wound cleansed with hydrogen peroxide and packing is removed per Dr. Slaughter' s instruction and dry sterile 2x2s and 4x4s and 3" John applied and encouraged AROM of the fingers left hand. Dr. Slaughter to see on Sunday for dressing change and patient encouraged to see Dr. Houstno after discharged and make sure that he gets and takes antibiotics for his infections. <Silvana Gaston - Last Filed: 08/31/18 10:58> - Problem List (1) Suppurative tenosynovitis of flexor tendon of left hand Code(s): M65.142 - Other infective (teno)synovitis, left hand Status: Chronic <Slim Slaughter - Last Filed: 09/07/18 10:38>
[2018-08-31] MEDS: SODIUM CHLOR 0.9% IV.SIG SCH (11:42)
[2018-08-31] MEDS: AMIKACIN IV.SIG SCH (11:42)
[2018-08-31] MEDS: Vancomycin Inj 2,000 MG in Sodium Chlor 0.9% Inj 500 ML IV.SIG SCH (17:02)
[2018-09-01] MEDS: Sod Chloride 0.9% Inj 1,000 ML IV.CONT SCH (05:22)
[2018-09-01 07:11] LABS: Glomerular Filtration Rate Greater Than 89 mL/min (>89)
[2018-09-01] MEDS: Insulin NovoLOG Aspart Correctional Sugar Inj SQ SCH ×4 (07:50→22:10)
[2018-09-01] MEDS ORDERED: Pharmacy Ordered Lab Info OTHER ONE (09:45)
[2018-09-01] MEDS: Furosemide 20 MG Tablet PO SCH ×2 (10:17→22:11)
[2018-09-01] MEDS: Senna/Docusate Sodium 8.6/50 MG Tablet PO SCH ×2 (10:19→22:11)
[2018-09-01] MEDS: Ramipril 2.5 MG Capsule PO SCH (10:19)
[2018-09-01] MEDS: Insulin Detemir Inj 1,000 UNIT/10 ML Vial SQ SCH ×2 (10:19→22:12)
[2018-09-01] MEDS: dilTIAZem CD 240 MG Capsule PO SCH (10:19)
--- NOTE | 2018-09-01 11:12 | P.PN ---
Subjective Interval history: some low back discomfort- moving legs, no difficulty, moving bowels, no incontinence d/w him pain meds- Physical Exam Vital signs: Vital Signs 08/31/18 12:00 08/31/18 16:00 08/31/18 16:54 Temperature 98.2 F 98.8 F Pulse Rate 83 72 79 Respiratory Rate 14 16 Blood Pressure 128/68 110/58 L Pulse Oximetry 98 96 08/31/18 20:00 09/01/18 00:00 09/01/18 04:00 Temperature 97.7 F 98 F 98.2 F Pulse Rate 71 79 82 Respiratory Rate 18 17 17 Blood Pressure 108/60 117/57 L 120/58 L Pulse Oximetry 100 99 100 09/01/18 08:00 Temperature 98.0 F Pulse Rate 87 Respiratory Rate 14 Blood Pressure 141/72 H Pulse Oximetry 96 Intake & Output 08/31/18 09/01/18 09/01/18 18:59 06:59 18:59 Intake Total 200 / 200 620 / 620 100 / 100 Balance 200 / 200 620 / 620 100 / 100 Weight 80.6 kg Intake: IV 200 / 200 620 / 620 100 / 100 Vancomycin Inj 2,000 MG In NS 520 / 520 Inj 500 ML @ 250 mls/hr IV.SIG Q18H ROBBIE Rx#:[id number] Mefoxin Inj 2 GM In NS Inj 100 200 / 200 100 / 100 100 / 100 ML @ 200 mls/hr IV.SIG Q8H ROBBIE Rx#:[id number] Other: Date of Last Bowel Movement 08/30/18 08/30/18 Narrative: Alert and oriented x3 anicteric no nuchal rigidity lungs- clear regular rhtyhm abdomen soft extremities: LUE- post op dressing intact, good range of motion LE - no edema, 5/5 motor, no sensory deficits negative SLR good epripheral pulses Results - Labs CBC & Chem 7: 08/29/18 07:59 09/01/18 06:23 Laboratory Results - last 24 hr 08/30/18 08/31/18 08/31/18 22:00 11:25 17:08 Creatinine Estimated GFR POC Glucose 301 H 134 H Amikacin Trough 16.8 H* 08/31/18 09/01/18 09/01/18 21:43 06:23 07:27 Creatinine 0.65 Estimated GFR Greater than 89 POC Glucose 169 H 129 H Amikacin Trough Microbiology 08/30/18 00:50 Blood - Peripheral Aerobic Blood Culture - Preliminary No growth in 2 days 08/30/18 00:50 Blood - Peripheral Anaerobic Blood Culture - Preliminary No growth in 2 days 08/30/18 00:55 Blood - Peripheral Aerobic Blood Culture - Preliminary No growth in 2 days 08/30/18 00:55 Blood - Peripheral Anaerobic Blood Culture - Preliminary No growth in 2 days 08/27/18 06:10 Blood - Peripheral Aerobic Blood Culture - Final No growth in 5 days 08/27/18 06:10 Blood - Peripheral Anaerobic Blood Culture - Final No growth in 5 days 08/27/18 06:10 Blood - Peripheral Aerobic Blood Culture - Final No growth in 5 days 08/27/18 06:10 Blood - Peripheral Anaerobic Blood Culture - Final No growth in 5 days 08/28/18 19:35 Wound - Finger Gram Stain - Final 08/28/18 19:35 Wound - Finger Wound Culture - Final No growth in 72 hours (aerobically and anaerobically ) - Procedures 08/28 exploration, flexor tenosynovectomy, debridement/excision of the infected/ necrotic flexor digitorum superficialis, left palm/ring finger Assessment and Plan - Plan 58-year-old male with history of HTN, HLD, GERD, A. fib, DM, recent hospitalization for lumbar spine discitis currently on outpatient IV vancomycin via PICC, presents with complaints of back pain, hand pain, and dislodgment of PICC line. Sepsis: patient meets sepsis criteria with leukocytosis WBC 23.9K, tachycardia HR 105, and suspected sourcelumbar discitis/ hand cellulitis. Suppurative Tenosynovitis of flexor tendon of left hand S/P exploration, flexor tenosynovectomy, debridement/excision of the infected/ necrotic flexor digitorum superficialis, left palm/ring fingerLeft hand cellulitis- 08/28 -EMR reviewed, prior wound culture with mycobacterium abscessus -On antibiotics as above- On Biaxin, Amikacin, Cefoxitin -Pain control with patient's Oxycodone 30mg q4h prn -ID consulted as above -Hand surgery ff along with us Subacute discitis: Diagnosed on previous admission, lumbar spine MRI showed discitis of L4-5. Meets sepsis as above. Worsening back pain - appreciate Nerusorufgery seeing patient 08/30- no surgical intervention exam - no incontinence, gait steady, motor 03/30 - on above antibiotics -Roxycodone po prn for pain. -ID ff -Hold off on replacing PICC for now with ongoing sepsis History of Atrial Fibrillation S/P Ablation - telemetry in SR -continue patient's anticoagulation with Eliquis -continue patient's Cardizem -Monitor on telemetry Diabetes Mellitus: chronic -continue patient's Levemir 50u sq bid -Monitor Accu-checks and cover with SSI -Diabetic diet, add Glucerna shakes to meals HTN/HLD: chronic -continue patient's ramipril, lasix -Monitor BP, adjust antihypertensives as needed GERD: chronic -continue patient's protonix DVT Prophylaxis: on Eliquis
[2018-09-01] MEDS: Vancomycin Inj 2,000 MG in Sodium Chlor 0.9% Inj 500 ML IV.SIG SCH (11:42)
[2018-09-01] MEDS: SODIUM CHLOR 0.9% IV.SIG SCH (12:37)
[2018-09-01] MEDS: AMIKACIN IV.SIG SCH (12:37)
[2018-09-01] MEDS: Vancomycin Inj 1,500 MG in Sodium Chlor 0.9% Inj 500 ML IV.SIG SCH ×2 (12:39→23:37)
[2018-09-02] MEDS: dilTIAZem CD 240 MG Capsule PO SCH (08:02)
[2018-09-02] MEDS: Senna/Docusate Sodium 8.6/50 MG Tablet PO SCH ×2 (08:02→22:41)
[2018-09-02] MEDS: Ramipril 2.5 MG Capsule PO SCH (08:02)
[2018-09-02] MEDS: Furosemide 20 MG Tablet PO SCH ×2 (08:02→22:43)
[2018-09-02] MEDS: Insulin NovoLOG Aspart Correctional Sugar Inj SQ SCH ×4 (08:02→21:30)
[2018-09-02] MEDS: Insulin Detemir Inj 1,000 UNIT/10 ML Vial SQ SCH ×2 (08:03→21:30)
--- NOTE | 2018-09-02 10:15 | P.PN ---
Subjective Interval history: no complains good po' voiding, eating by himself Physical Exam Vital signs: Vital Signs 09/01/18 12:00 09/01/18 16:00 09/01/18 20:00 Temperature 97.7 F 98.2 F 99.3 F Pulse Rate 96 H 76 73 Respiratory Rate 16 18 19 Blood Pressure 121/54 L 166/69 H 115/60 Pulse Oximetry 100 100 100 09/02/18 00:00 09/02/18 04:00 09/02/18 08:00 Temperature 99.4 F 98.2 F 99.1 F Pulse Rate 80 83 88 Respiratory Rate 19 17 16 Blood Pressure 132/62 122/65 132/69 Pulse Oximetry 99 98 98 09/02/18 08:34 Temperature Pulse Rate Respiratory Rate 16 Blood Pressure Pulse Oximetry Intake & Output 09/01/18 09/02/18 09/02/18 18:59 06:59 18:59 Intake Total 1224.6 / 1224.6 2055 / 2055 100 / 100 Output Total 2460 / 2460 1300 / 1300 Balance -1235.4 / -1235.4 755 / 755 100 / 100 Intake: IV 1224.6 / 1224.6 615 / 615 100 / 100 Amikin Inj 1,200 MG In NS Inj 509.6 / 509.6 250 ML @ 254.8 mls/hr IV.SIG Q24H ROBBIE Rx#:[id number] Vancomycin Inj 1,500 MG In NS 515 / 515 515 / 515 Inj 500 ML @ 250 mls/hr IV.SIG Q12H ROBBIE Rx#:[id number] Mefoxin Inj 2 GM In NS Inj 100 200 / 200 100 / 100 100 / 100 ML @ 200 mls/hr IV.SIG Q8H ROBBIE Rx#:[id number] Oral 1440 / 1440 Output: Urine 2460 / 2460 1300 / 1300 Other: # Voids 9 Date of Last Bowel Movement 08/31/18 08/31/18 08/31/18 Narrative: Alert and oriented x3 anicteric no nuchal rigidity lungs- clear regular rhtyhm abdomen soft extremities: LUE- post op dressing intact, good range of motion, ring finger with dressing LE - no edema, 5/5 motor, no sensory deficits negative SLR good peripheral pulses Results - Labs CBC & Chem 7: 08/29/18 07:59 09/01/18 06:23 Laboratory Results - last 24 hr 09/01/18 09/01/18 09/01/18 10:30 12:02 17:05 POC Glucose 119 H 141 H Vancomycin Trough 13.2 H 09/01/18 09/02/18 21:51 07:24 POC Glucose 182 H 85 Vancomycin Trough Microbiology 08/30/18 00:50 Blood - Peripheral Aerobic Blood Culture - Preliminary No growth in 2 days 08/30/18 00:50 Blood - Peripheral Anaerobic Blood Culture - Preliminary No growth in 2 days 08/30/18 00:55 Blood - Peripheral Aerobic Blood Culture - Preliminary No growth in 2 days 08/30/18 00:55 Blood - Peripheral Anaerobic Blood Culture - Preliminary No growth in 2 days 08/27/18 06:10 Blood - Peripheral Aerobic Blood Culture - Final No growth in 5 days 08/27/18 06:10 Blood - Peripheral Anaerobic Blood Culture - Final No growth in 5 days 08/27/18 06:10 Blood - Peripheral Aerobic Blood Culture - Final No growth in 5 days 08/27/18 06:10 Blood - Peripheral Anaerobic Blood Culture - Final No growth in 5 days - Procedures 08/28 exploration, flexor tenosynovectomy, debridement/excision of the infected/ necrotic flexor digitorum superficialis, left palm/ring finger Assessment and Plan - Plan 58-year-old male with history of HTN, HLD, GERD, A. fib, DM, recent hospitalization for lumbar spine discitis currently on outpatient IV vancomycin via PICC, presents with complaints of back pain, hand pain, and dislodgment of PICC line. Sepsis: patient meets sepsis criteria with leukocytosis WBC 23.9K, tachycardia HR 105, and suspected sourcelumbar discitis/ hand cellulitis. Suppurative Tenosynovitis of flexor tendon of left hand S/P exploration, flexor tenosynovectomy, debridement/excision of the infected/ necrotic flexor digitorum superficialis, left palm/ring fingerLeft hand cellulitis- 08/28 -EMR reviewed, prior wound culture with mycobacterium abscessus -On antibiotics as above- On Biaxin, Amikacin, Cefoxitin -Pain control with patient's Oxycodone 30mg q4h prn -ID consulted as above -Hand surgery ff along with us Subacute discitis: Diagnosed on previous admission, lumbar spine MRI showed discitis of L4-5. Meets sepsis as above. Worsening back pain- pain improved- patient more independent - appreciate Nerusorjacintoy seeing patient 08/30- no surgical intervention exam - no incontinence, gait steady, motor 03/30 - on above antibiotics- on amikacin and Cefoxitin, Biaxin -Roxycodone po prn for pain. -ID ff -plan for PICC- will defer to ID History of Atrial Fibrillation S/P Ablation - telemetry in SR -continue patient's anticoagulation with Eliquis -continue patient's Cardizem -Monitor on telemetry Diabetes Mellitus: chronic -continue patient's Levemir 50u sq bid -Monitor Accu-checks and cover with SSI -Diabetic diet, add Glucerna shakes to meals HTN/HLD: chronic -continue patient's ramipril, lasix -Monitor BP, adjust antihypertensives as needed GERD: chronic -continue patient's protonix DVT Prophylaxis: on Eliquis
[2018-09-02] MEDS: Vancomycin Inj 1,500 MG in Sodium Chlor 0.9% Inj 500 ML IV.SIG SCH (11:05)
--- NOTE | 2018-09-02 11:15 | P.PNID ---
Subjective Remarks: Patient is a 58-year-old male, presented to the hospital for further antibiotic treatment. He was recently hospitalized July 18 - August 09 and at that time he was diagnosed to have infection on his left hand. He had undergone surgery, and the culture grew Mycobacterium abscesses. During this hospitalization also he was diagnosed to have discitis in L4. Arrangements were made for him to get his IV antibiotics at home and he was on IV vancomycin , as well as oral Biaxin. Patient stated he had DrAristides's choice. Patient stated he was not feeling good, and his PICC line accidentally came out. The PICC line came out August 24. He presented back to the hospital on August 26 for further evaluation and treatment. He is complaining of pain in his left hand. I had noticed redness, and he really could not tell me how long it has been read. He also noted when redness going up his left wrist. Patient also complaining of back pain. Patient stated also that he gets sweats which is not unusual for him. Since admission he has not been febrile. His WBC is greater than 20,000. Patient was referred to Dr. Orellana for ID follow-up, and he really can tell me whether he had seen the doctor. Infectious disease consultation has been requested to evaluate the patient. Notes reviewed Melquiades lal Had MRI 08/30 for worsening back pain - results noted; seen by neurosurgery Back pain better when he is lying down Hand feels better C/S hand negative so far Previous back C/S negative for AFB and fungus NO other new complaints NO fever NO rash or itching Previous hand culture with M abscesses no susceptibility testing available yet Antibiotics: IV vancomycin Cefoxitin Biaxin Primaxin Lines: PIV Past Medical History: Amputated toe GERD (gastroesophageal reflux disease) Hyperlipidemia Afib Back pain Diabetes Hypertension Osteomyelitis Foot surgery Allergies/Adverse Reactions: Allergies No Known Drug Allergies Allergy (Verified 08/06/18 15:59) none *MDRO Multi-Drug Resistant Organism Adverse Reaction (Unknown, Uncoded 06/16/17 16:34) MRSA MRSA (foot wound) - 02/12/15, 11/12/16, 03/29/17; (toe) - 03/2016 Objective Vital Signs 09/01/18 12:00 09/01/18 16:00 09/01/18 20:00 Temperature 97.7 F 98.2 F 99.3 F Pulse Rate 96 H 76 73 Respiratory Rate 16 18 19 Blood Pressure 121/54 L 166/69 H 115/60 Pulse Oximetry 100 100 100 09/02/18 00:00 09/02/18 04:00 09/02/18 08:00 Temperature 99.4 F 98.2 F 99.1 F Pulse Rate 80 83 88 Respiratory Rate 19 17 16 Blood Pressure 132/62 122/65 132/69 Pulse Oximetry 99 98 98 09/02/18 08:34 Temperature Pulse Rate Respiratory Rate 16 Blood Pressure Pulse Oximetry Intake & Output 09/01/18 09/02/18 09/02/18 18:59 06:59 18:59 Intake Total 1224.6 / 1224.6 2055 / 2055 100 / 100 Output Total 2460 / 2460 1300 / 1300 Balance -1235.4 / -1235.4 755 / 755 100 / 100 Intake: IV 1224.6 / 1224.6 615 / 615 100 / 100 Amikin Inj 1,200 MG In NS Inj 509.6 / 509.6 250 ML @ 254.8 mls/hr IV.SIG Q24H ROBBIE Rx#:[id number] Vancomycin Inj 1,500 MG In NS 515 / 515 515 / 515 Inj 500 ML @ 250 mls/hr IV.SIG Q12H ROBBIE Rx#:[id number] Mefoxin Inj 2 GM In NS Inj 100 200 / 200 100 / 100 100 / 100 ML @ 200 mls/hr IV.SIG Q8H ROBBIE Rx#:[id number] Oral 1440 / 1440 Output: Urine 2460 / 2460 1300 / 1300 Other: # Voids 9 Date of Last Bowel Movement 08/31/18 08/31/18 08/31/18 08/30/18 00:50 Blood - Peripheral Aerobic Blood Culture - Preliminary No growth in 3 days 08/30/18 00:50 Blood - Peripheral Anaerobic Blood Culture - Preliminary No growth in 3 days 08/30/18 00:55 Blood - Peripheral Aerobic Blood Culture - Preliminary No growth in 3 days 08/30/18 00:55 Blood - Peripheral Anaerobic Blood Culture - Preliminary No growth in 3 days 08/27/18 06:10 Blood - Peripheral Aerobic Blood Culture - Final No growth in 5 days 08/27/18 06:10 Blood - Peripheral Anaerobic Blood Culture - Final No growth in 5 days 08/27/18 06:10 Blood - Peripheral Aerobic Blood Culture - Final No growth in 5 days 08/27/18 06:10 Blood - Peripheral Anaerobic Blood Culture - Final No growth in 5 days 08/28/18 19:35 Wound - Finger Gram Stain - Final 08/28/18 19:35 Wound - Finger Wound Culture - Final No growth in 72 hours (aerobically and anaerobically ) 08/28/18 19:35 Wound - Finger Acid Fast Bacilli Smear - Final No acid fast bacilli seen 08/28/18 19:35 Wound - Finger Mycobacterial Culture - Pending Lab - Chemistry Results 08/31/18 08/31/18 08/31/18 11:25 17:08 21:43 Creatinine Estimated GFR POC Glucose 301 H 134 H 169 H 09/01/18 09/01/18 09/01/18 06:23 07:27 12:02 Creatinine 0.65 Estimated GFR Greater than 89 POC Glucose 129 H 119 H 09/01/18 09/01/18 09/02/18 17:05 21:51 07:24 Creatinine Estimated GFR POC Glucose 141 H 182 H 85 09/02/18 11:00 Creatinine Estimated GFR POC Glucose 116 H Imaging: ITS Impressions Hand X-Ray 08/27/18 02:55 CONCLUSION: 1. Unremarkable radiographs of the left hand. Lumbar Spine MRI 08/30/18 00:00 CONCLUSION: 1. 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 Epidural abscess extends cephaladly to mid body of L4 and caudally to mid body of L5. 2. Multiple small pockets of abscess are seen in the posterior portion of the disc extending into the epidural space. 3. Slight overall thecal sac stenosis L2-3. 4. Neural foraminal compromise left L2-3, bilateral L4-5. Physical Exam: GENERAL: awake and alert, NAD SKIN: Warm and moist. No generalized rash HEAD: Atraumatic. Normocephalic. No temporal wasting, or tenderness. EYES: [place] conjunctiva. No petechia or hemorrhage. Pupils equal, round and reactive to light. Extraocular movements full and intact. No scleral icterus. No injection or drainage. EARS, NOSE AND THROAT: Nose without bleeding or purulent nasal discharge. No sinus tenderness. Mucous membranes pink and moist. No oral lesions noted. No exudate. No oral thrush. NECK: Trachea midline. Supple and not tender, no meningeal signs CARDIOVASCULAR: Regular rate and rhythm. No murmurs, rubs or gallops heard RESPIRATORY: Clear to auscultation. Breath sounds equal bilaterally. No rales , wheezing or rhonchi ABDOMEN: Soft, non-tender, nondistended. Bowel sounds present and normoactive. No guarding. No rebound. No organomegaly. EXTREMITIES: No clubbing, cyanosis. L hand has dressing in place. No calf tenderness. Well perfused and warm. NEUROLOGICAL: Grossly nonfocal. PSYCHIATRIC: Normal affect, calm and cooperative. LINE: No evidence of infection Assessment and Plan - Plan Impression Infection L hand, with M abscessus, looks worse and has lymphangitis going up his wrist L4 discitis, ?if this is also M abscessus etiology; biopsy no osteo, C/S negative, but he was on Abx Recommendation Continue vanco which he was getting previously Continue Biaxin and add Cefoxitin for M abscessus Continue Amikacin - follow creat while on Amikacin Follow C/S Monitor progress
[2018-09-02] MEDS ORDERED: Pharmacy Ordered Lab Info OTHER ONE ×3 (11:45→23:45)
[2018-09-02] MEDS ORDERED: CEFOXITIN IV.SIG SCH (17:00)
--- NOTE | 2018-09-02 19:00 | P.PNNS ---
Subjective Interval history: Pt complains of low back pain. He states occasionally gets pain radiating into the right lateral leg. No bowel or bladder incontinence. No saddle paresthesias or numbness. Physical Exam Vital signs: Vital Signs 09/01/18 20:00 09/02/18 00:00 09/02/18 04:00 Temperature 99.3 F 99.4 F 98.2 F Pulse Rate 73 80 83 Respiratory Rate 19 19 17 Blood Pressure 115/60 132/62 122/65 Pulse Oximetry 100 99 98 09/02/18 08:00 09/02/18 08:34 09/02/18 12:00 Temperature 99.1 F 97.7 F Pulse Rate 88 79 Respiratory Rate 16 16 14 Blood Pressure 132/69 83/48 L Pulse Oximetry 98 97 09/02/18 12:22 09/02/18 12:48 09/02/18 13:05 Temperature Pulse Rate Respiratory Rate 16 Blood Pressure 92/50 L 128/56 L Pulse Oximetry 09/02/18 16:00 09/02/18 17:06 Temperature 97.9 F Pulse Rate 67 Respiratory Rate 17 16 Blood Pressure 108/49 L Pulse Oximetry 98 Intake & Output 09/01/18 09/02/18 09/02/18 18:59 06:59 18:59 Intake Total 1224.6 / 1224.6 2055 / 2055 715 / 715 Output Total 2460 / 2460 1300 / 1300 Balance -1235.4 / -1235.4 755 / 755 715 / 715 Weight 86.1 kg Intake: IV 1224.6 / 1224.6 615 / 615 715 / 715 Amikin Inj 1,200 MG In NS Inj 509.6 / 509.6 250 ML @ 254.8 mls/hr IV.SIG Q24H ROBBIE Rx#:[id number] Vancomycin Inj 1,500 MG In NS 515 / 515 515 / 515 515 / 515 Inj 500 ML @ 250 mls/hr IV.SIG Q12H ROBBIE Rx#:[id number] Mefoxin Inj 2 GM In NS Inj 100 200 / 200 100 / 100 100 / 100 ML @ 200 mls/hr IV.SIG Q8H ROBBIE Rx#:[id number] Mefoxin Inj 2 GM In Bag/Syringe 100 / 100 1 EACH @ 200 mls/hr IV.SIG Q8H ROBBIE Rx#:[id number] Oral 1440 / 1440 Output: Urine 2460 / 2460 1300 / 1300 Other: # Voids 9 Date of Last Bowel Movement 08/31/18 08/31/18 08/31/18 - Constitutional no acute distress, average body habitus, cooperative - Routine HEENT Exam Head: Present: normocephalic, atraumatic Eye: Present: PERRL. Absent: conjunctival icterus ENT: Present: oropharynx clear - Routine Neck Exam Present: trachea midline - Routine Respiratory Exam Present: CTA bilaterally. Absent: respiratory distress, rhonchi, wheezes - Routine Cardiovascular Exam Present: RRR, S1, S2. Absent: murmur - Routine Abdominal Exam Present: soft, normoactive bowel sounds. Absent: distended - Routine Skin Exam Present: wounds (Pt has a wound on the right plantar medial aspect of his foot. There is no drainage. [place] tissue. Pt had some mild blood on his sock. Pt states he was trying to clean his foot earlier and my have irritated it.). Absent: cyanosis, erythema - Routine Neurological Exam Present: alert, oriented X3, moving all extremities (Pt has pain in his right knee and some limited movement secondary to pain.), normal speech. Absent: sensory deficit, altered mental status - Routine Psychiatric Exam Present: normal affect, cooperative. 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 insulin use: with chcf use Diabetes mellitus complication status: with unspecified complications Qualified Code(s): E11.8 - Type 2 diabetes mellitus with unspecified complications; Z79.4 - rn long term care (current) use of insulin (3) Strain of lumbar region Code(s): S39.012A - Strain of muscle, fascia and tendon of lower back, initial encounter Status: Acute Qualifiers: Encounter type: initial encounter Qualified Code(s): S39.012A - Strain of muscle, fascia and tendon of lower back, initial encounter (4) Lumbar radiculopathy Code(s): M54.16 - Radiculopathy, lumbar region Status: Acute (5) Hyponatremia Code(s): E87.1 - Hypo-osmolality and hyponatremia Status: Acute (6) 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 He has severe mechanical back pain, but no leg pain or neurologic deficit. His mechanical back pain may be attributed to the erosion of the L4/5 vertebral bodies. This may necessitate instrumentation in the future, however implantation of instrumentation at this point would make it more difficult for the infection to clear, and is therefore not indicated. He has severe lumbar stenosis, but no evidence of neurogenic claudication or symptoms in his legs or bowel/bladder dysfunction, therefore decompression alone is not indicated at this time. Plan: Continue IV antibiotics. Will continue to monitor. If he develops lower extremity symptoms or bowel/ bladder dysfunction, then he may warrant decompression. I have discussed with pt signs and symptoms to watch for and to notify us if this should occur. Monitor chcf following resolution of infection for consideration of instrumentation (lumbar fusion) to resolve mechanical instability contributing to mechanical back pain.
[2018-09-03] MEDS ORDERED: AMIKACIN IV.SIG SCH ×2
[2018-09-03] MEDS ORDERED: SODIUM CHLOR 0.9% IV.SIG SCH ×2
[2018-09-03] MEDS: Vancomycin Inj 1,500 MG in Sodium Chlor 0.9% Inj 500 ML IV.SIG SCH (00:30)
[2018-09-03] MEDS ORDERED: cefOXitin Inj 2 GM in Sodium Chlor 0.9% Inj 100 ML IV.SIG SCH (01:00)
[2018-09-03 07:12] LABS: Baso # (Auto) 0.1 th/mm3 (0.0-0.2); Baso % (Auto) 0.5 % (0.0-2.0); Eos # (Auto) 0.1 th/mm3 (0.0-0.4); Eos % (Auto) 0.9 % (0.0-4.0); Hematocrit 29.1 % (39.0-51.0); Hemoglobin 9.4 gm/dL (13.0-17.0); Lymph # (Auto) 1.2 th/mm3 (1.0-4.8); Lymph % (Auto) 9.8 % (9.0-44.0); Mean Corpuscular HGB Conc 32.4 % (32.0-36.0); Mean Corpuscular Hemoglobin 25.3 pg (27.0-34.0); Mean Corpuscular Volume 77.9 fL (80.0-100.0); Mono # (Auto) 0.7 th/mm3 (0.0-0.9); Mono % (Auto) 6.1 % (0.0-8.0); Neut % (Auto) 82.7 % (16.0-70.0); Platelet Count 496 th/mm3 (150-450); Red Blood Count 3.74 mil/mm3 (4.50-5.90); Red Cell Distribution Width 15.5 % (11.6-17.2); White Blood Count 12.1 th/mm3 (4.0-11.0)
[2018-09-03] MEDS: Insulin NovoLOG Aspart Correctional Sugar Inj SQ SCH ×4 (07:23→21:23)
[2018-09-03 07:46] LABS: Glomerular Filtration Rate Greater Than 89 mL/min (>89)
[2018-09-03] MEDS: Senna/Docusate Sodium 8.6/50 MG Tablet PO SCH ×2 (08:43→21:24)
[2018-09-03] MEDS: Furosemide 20 MG Tablet PO SCH ×2 (08:43→21:23)
[2018-09-03] MEDS: dilTIAZem CD 240 MG Capsule PO SCH (08:43)
[2018-09-03] MEDS: DEXTROSE 5% IV.SIG SCH ×4 (08:44→16:27)
[2018-09-03] MEDS: Insulin Detemir Inj 1,000 UNIT/10 ML Vial SQ SCH ×2 (08:44→21:25)
[2018-09-03] MEDS: Ramipril 2.5 MG Capsule PO SCH (08:44)
[2018-09-03] MEDS: WATER IV.SIG SCH ×4 (08:44→16:27)
[2018-09-03] MEDS: CEFOXITIN IV.SIG SCH ×4 (08:44→16:27)
--- NOTE | 2018-09-03 09:51 | P.PNID ---
Subjective Remarks: Patient is a 58-year-old male, presented to the hospital for further antibiotic treatment. He was recently hospitalized July 18 - August 09 and at that time he was diagnosed to have infection on his left hand. He had undergone surgery, and the culture grew Mycobacterium abscesses. During this hospitalization also he was diagnosed to have discitis in L4. Arrangements were made for him to get his IV antibiotics at home and he was on IV vancomycin , as well as oral Biaxin. Patient stated he had DrAristides's choice. Patient stated he was not feeling good, and his PICC line accidentally came out. The PICC line came out August 24. He presented back to the hospital on August 26 for further evaluation and treatment. He is complaining of pain in his left hand. I had noticed redness, and he really could not tell me how long it has been read. He also noted when redness going up his left wrist. Patient also complaining of back pain. Patient stated also that he gets sweats which is not unusual for him. Since admission he has not been febrile. His WBC is greater than 20,000. Patient was referred to Dr. Orellana for ID follow-up, and he really can tell me whether he had seen the doctor. Infectious disease consultation has been requested to evaluate the patient. Notes reviewed Temps okay Back pain better when he is lying down Hand feels better C/S hand negative so far Previous back C/S negative for AFB and fungus NO other new complaints NO fever NO rash or itching Previous hand culture with M abscesses - S to Clarithromycin, Azithromycin, Clofazimine, Tygacil; I - Amikacin, Cefoxitin, Primaxin Antibiotics: IV vancomycin Cefoxitin Biaxin Primaxin Lines: PIV Past Medical History: Amputated toe GERD (gastroesophageal reflux disease) Hyperlipidemia Afib Back pain Diabetes Hypertension Osteomyelitis Foot surgery Allergies/Adverse Reactions: Allergies No Known Drug Allergies Allergy (Verified 08/06/18 15:59) none *MDRO Multi-Drug Resistant Organism Adverse Reaction (Unknown, Uncoded 06/16/17 16:34) MRSA MRSA (foot wound) - 02/12/15, 11/12/16, 03/29/17; (toe) - 03/2016 Objective Vital Signs 09/02/18 12:00 09/02/18 12:22 09/02/18 12:48 Temperature 97.7 F Pulse Rate 79 Respiratory Rate 14 Blood Pressure 83/48 L 92/50 L 128/56 L Pulse Oximetry 97 09/02/18 13:05 09/02/18 16:00 09/02/18 17:06 Temperature 97.9 F Pulse Rate 67 Respiratory Rate 16 17 16 Blood Pressure 108/49 L Pulse Oximetry 98 09/02/18 20:00 09/03/18 00:00 09/03/18 04:00 Temperature 98.8 F 97.8 F 98.1 F Pulse Rate 81 87 83 Respiratory Rate 18 18 18 Blood Pressure 123/57 L 121/56 L 121/64 Pulse Oximetry 100 100 09/03/18 08:00 Temperature 98.4 F Pulse Rate 90 Respiratory Rate 20 Blood Pressure 129/58 L Pulse Oximetry 99 Intake & Output 09/02/18 09/03/18 09/03/18 18:59 06:59 18:59 Intake Total 715 / 715 869.8 / 869.8 Output Total 1900 / 1900 Balance 715 / 715 -1030.2 / -1030.2 Weight 86.1 kg Intake: IV 715 / 715 869.8 / 869.8 Amikin Inj 1,200 MG In NS Inj 254.8 / 254.8 250 ML @ 254.8 mls/hr IV.SIG Q36H ROBBIE Rx#:[id number] Vancomycin Inj 1,500 MG In NS 515 / 515 515 / 515 Inj 500 ML @ 250 mls/hr IV.SIG Q12H ROBBIE Rx#:[id number] Mefoxin Inj 2 GM In NS Inj 100 100 / 100 ML @ 200 mls/hr IV.SIG Q8H ROBBIE Rx#:[id number] Mefoxin Inj 2 GM In NS Inj 100 100 / 100 ML @ 200 mls/hr IV.SIG Q8H ROBBIE Rx#:[id number] Mefoxin Inj 2 GM In Bag/Syringe 100 / 100 1 EACH @ 200 mls/hr IV.SIG Q8H ROBBIE Rx#:[id number] Output: Urine 1900 / 1900 Other: Date of Last Bowel Movement 08/31/18 08/30/18 00:50 Blood - Peripheral Aerobic Blood Culture - Preliminary No growth in 3 days 08/30/18 00:50 Blood - Peripheral Anaerobic Blood Culture - Preliminary No growth in 3 days 08/30/18 00:55 Blood - Peripheral Aerobic Blood Culture - Preliminary No growth in 3 days 08/30/18 00:55 Blood - Peripheral Anaerobic Blood Culture - Preliminary No growth in 3 days 08/27/18 06:10 Blood - Peripheral Aerobic Blood Culture - Final No growth in 5 days 08/27/18 06:10 Blood - Peripheral Anaerobic Blood Culture - Final No growth in 5 days 08/27/18 06:10 Blood - Peripheral Aerobic Blood Culture - Final No growth in 5 days 08/27/18 06:10 Blood - Peripheral Anaerobic Blood Culture - Final No growth in 5 days 08/28/18 19:35 Wound - Finger Gram Stain - Final 08/28/18 19:35 Wound - Finger Wound Culture - Final No growth in 72 hours (aerobically and anaerobically ) Lab - Hematology Results 09/03/18 06:48 WBC 12.1 H RBC 3.74 L Hgb 9.4 L Hct 29.1 L MCV 77.9 L MCH 25.3 L MCHC 32.4 RDW 15.5 Plt Count 496 H MPV 6.0 L Neut % (Auto) 82.7 H Lymph % (Auto) 9.8 [place] % (Auto) 6.1 Eos % (Auto) 0.9 Baso % (Auto) 0.5 Neut # (Auto) 10.0 H Lymph # (Auto) 1.2 [place] # (Auto) 0.7 Eos # (Auto) 0.1 Baso # (Auto) 0.1 WBC Differential . Differential Comment Auto diff final Lab - Chemistry Results 09/01/18 09/01/18 09/01/18 12:02 17:05 21:51 Creatinine Estimated GFR POC Glucose 119 H 141 H 182 H 09/02/18 09/02/18 09/02/18 07:24 11:00 16:08 Creatinine Estimated GFR POC Glucose 85 116 H 153 H 09/02/18 09/03/18 09/03/18 22:26 06:48 07:19 Creatinine 0.70 Estimated GFR Greater than 89 POC Glucose 256 H 83 Imaging: ITS Impressions Hand X-Ray 08/27/18 02:55 CONCLUSION: 1. Unremarkable radiographs of the left hand. Lumbar Spine MRI 08/30/18 00:00 CONCLUSION: 1. 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 Epidural abscess extends cephaladly to mid body of L4 and caudally to mid body of L5. 2. Multiple small pockets of abscess are seen in the posterior portion of the disc extending into the epidural space. 3. Slight overall thecal sac stenosis L2-3. 4. Neural foraminal compromise left L2-3, bilateral L4-5. Physical Exam: GENERAL: awake and alert, NAD SKIN: Warm and moist. No generalized rash HEAD: Atraumatic. Normocephalic. No temporal wasting, or tenderness. EYES: [place] conjunctiva. No petechia or hemorrhage. Pupils equal, round and reactive to light. Extraocular movements full and intact. No scleral icterus. No injection or drainage. EARS, NOSE AND THROAT: Nose without bleeding or purulent nasal discharge. No sinus tenderness. Mucous membranes pink and moist. No oral lesions noted. No exudate. No oral thrush. NECK: Trachea midline. Supple and not tender, no meningeal signs CARDIOVASCULAR: Regular rate and rhythm. No murmurs, rubs or gallops heard RESPIRATORY: Clear to auscultation. Breath sounds equal bilaterally. No rales , wheezing or rhonchi ABDOMEN: Soft, non-tender, nondistended. Bowel sounds present and normoactive. No guarding. No rebound. No organomegaly. EXTREMITIES: No clubbing, cyanosis. L hand has dressing in place. No calf tenderness. Well perfused and warm. NEUROLOGICAL: Grossly nonfocal. PSYCHIATRIC: Normal affect, calm and cooperative. LINE: No evidence of infection Assessment and Plan - Plan Impression Infection L hand, with M abscessus, looks worse and has lymphangitis going up his wrist L4 discitis, ?if this is also M abscessus etiology; biopsy no osteo, C/S negative, but he was on Abx Recommendation Continue Biaxin Continue cefoxitin for now Stop Amikacin Add Tygacil (should cover M abscessus as well as pathogens covered by Vanco) Stop vancomycin Follow new C/S Monitor progress Dr Ignacio back tomorrow and will take over case from ID standpoint
--- NOTE | 2018-09-03 13:20 | P.PN ---
Subjective Interval history: pain controlled had a BM Physical Exam Vital signs: Vital Signs 09/02/18 16:00 09/02/18 17:06 09/02/18 20:00 Temperature 97.9 F 98.8 F Pulse Rate 67 81 Respiratory Rate 17 16 18 Blood Pressure 108/49 L 123/57 L Pulse Oximetry 98 100 09/03/18 00:00 09/03/18 04:00 09/03/18 08:00 Temperature 97.8 F 98.1 F 98.4 F Pulse Rate 87 83 90 Respiratory Rate 18 18 20 Blood Pressure 121/56 L 121/64 129/58 L Pulse Oximetry 100 99 09/03/18 12:00 09/03/18 12:10 Temperature 97.9 F Pulse Rate 85 Respiratory Rate 20 16 Blood Pressure 125/60 Pulse Oximetry 98 Intake & Output 09/02/18 09/03/18 09/03/18 18:59 06:59 18:59 Intake Total 715 / 715 869.8 / 869.8 50 / 50 Output Total 1900 / 1900 Balance 715 / 715 -1030.2 / -1030.2 50 / 50 Weight 86.1 kg Intake: IV 715 / 715 869.8 / 869.8 50 / 50 Amikin Inj 1,200 MG In NS Inj 254.8 / 254.8 250 ML @ 254.8 mls/hr IV.SIG Q36H ROBBEI Rx#:[id number] Vancomycin Inj 1,500 MG In NS 515 / 515 515 / 515 Inj 500 ML @ 250 mls/hr IV.SIG Q12H ROBBIE Rx#:[id number] Mefoxin Inj 2 GM In D5W Inj 50 50 / 50 ML @ 100 mls/hr IV.SIG Q8H ROBBIE Rx#:[id number] Mefoxin Inj 2 GM In NS Inj 100 100 / 100 ML @ 200 mls/hr IV.SIG Q8H ROBBIE Rx#:[id number] Mefoxin Inj 2 GM In NS Inj 100 100 / 100 ML @ 200 mls/hr IV.SIG Q8H ROBBIE Rx#:[id number] Mefoxin Inj 2 GM In Bag/Syringe 100 / 100 1 EACH @ 200 mls/hr IV.SIG Q8H ROBBIE Rx#:[id number] Output: Urine 1900 / 1900 Other: Date of Last Bowel Movement 08/31/18 08/31/18 Narrative: Alert and oriented x3 anicteric no nuchal rigidity lungs- clear regular rhtyhm abdomen soft extremities: LUE- post op dressing intact, good range of motion, ring finger with dressing LE - no edema, 5/5 motor, no sensory deficits negative SLR good peripheral pulses Results - Labs CBC & Chem 7: 09/03/18 06:48 09/03/18 06:48 Laboratory Results - last 24 hr 09/02/18 09/02/18 09/02/18 16:08 22:26 23:45 WBC RBC Hgb Hct MCV MCH MCHC RDW Plt Count MPV Neut % (Auto) Lymph % (Auto) [place] % (Auto) Eos % (Auto) Baso % (Auto) Neut # (Auto) Lymph # (Auto) [place] # (Auto) Eos # (Auto) Baso # (Auto) WBC Differential Differential Comment Creatinine Estimated GFR POC Glucose 153 H 256 H Vancomycin Trough 19.4 H 09/03/18 09/03/18 09/03/18 06:48 06:48 07:19 WBC 12.1 H RBC 3.74 L Hgb 9.4 L Hct 29.1 L MCV 77.9 L MCH 25.3 L MCHC 32.4 RDW 15.5 Plt Count 496 H MPV 6.0 L Neut % (Auto) 82.7 H Lymph % (Auto) 9.8 [place] % (Auto) 6.1 Eos % (Auto) 0.9 Baso % (Auto) 0.5 Neut # (Auto) 10.0 H Lymph # (Auto) 1.2 [place] # (Auto) 0.7 Eos # (Auto) 0.1 Baso # (Auto) 0.1 WBC Differential . Differential Comment Auto diff final Creatinine 0.70 Estimated GFR Greater than 89 POC Glucose 83 Vancomycin Trough 09/03/18 13:00 WBC RBC Hgb Hct MCV MCH MCHC RDW Plt Count MPV Neut % (Auto) Lymph % (Auto) [place] % (Auto) Eos % (Auto) Baso % (Auto) Neut # (Auto) Lymph # (Auto) [place] # (Auto) Eos # (Auto) Baso # (Auto) WBC Differential Differential Comment Creatinine Estimated GFR POC Glucose 225 H Vancomycin Trough Microbiology 08/30/18 00:50 Blood - Peripheral Aerobic Blood Culture - Preliminary No growth in 4 days 08/30/18 00:50 Blood - Peripheral Anaerobic Blood Culture - Preliminary No growth in 4 days 08/30/18 00:55 Blood - Peripheral Aerobic Blood Culture - Preliminary No growth in 4 days 08/30/18 00:55 Blood - Peripheral Anaerobic Blood Culture - Preliminary No growth in 4 days - Procedures 08/28 exploration, flexor tenosynovectomy, debridement/excision of the infected/ necrotic flexor digitorum superficialis, left palm/ring finger Assessment and Plan - Plan 58-year-old male with history of HTN, HLD, GERD, A. fib, DM, recent hospitalization for lumbar spine discitis currently on outpatient IV vancomycin via PICC, presents with complaints of back pain, hand pain, and dislodgment of PICC line. Sepsis: patient meets sepsis criteria with leukocytosis WBC 23.9K, tachycardia HR 105, and suspected sourcelumbar discitis/ hand cellulitis. Suppurative Tenosynovitis of flexor tendon of left hand S/P exploration, flexor tenosynovectomy, debridement/excision of the infected/ necrotic flexor digitorum superficialis, left palm/ring fingerLeft hand cellulitis- 08/28 -EMR reviewed, prior wound culture with mycobacterium abscessus -Pain control with patient's Oxycodone 30mg q4h prn -ID ff- currrently on Biaxin, Cefoxitin and tygacil -Hand surgery ff along with us Subacute discitis: Diagnosed on previous admission, lumbar spine MRI showed discitis of L4-5. Meets sepsis as above. Worsening back pain- pain improved- patient more independent - appreciate Nerusorufgery seeing patient 08/30- no surgical intervention exam - no incontinence, gait steady, motor 03/30 - on above antibiotics- on amikacin and Cefoxitin, Biaxin -Roxycodone po prn for pain. -ID ff -plan for PICC- will defer to ID History of Atrial Fibrillation S/P Ablation - telemetry in SR -continue patient's anticoagulation with Eliquis -continue patient's Cardizem -Monitor on telemetry Diabetes Mellitus: chronic -continue patient's Levemir 50u sq bid -Monitor Accu-checks and cover with SSI -Diabetic diet, add Glucerna shakes to meals HTN/HLD: chronic -continue patient's ramipril, lasix -Monitor BP, adjust antihypertensives as needed GERD: chronic -continue patient's protonix DVT Prophylaxis: on Eliquis
[2018-09-03] MEDS ORDERED: Vancomycin Inj 1,250 MG in Sodium Chlor 0.9% Inj 250 ML IV.SIG SCH (17:00)
--- NOTE | 2018-09-03 17:53 | P.PN ---
Subjective Interval history: complaint with dressing complains of mild pain no numbness no fever Physical Exam Vital signs: Vital Signs 09/02/18 20:00 09/03/18 00:00 09/03/18 04:00 Temperature 98.8 F 97.8 F 98.1 F Pulse Rate 81 87 83 Respiratory Rate 18 18 18 Blood Pressure 123/57 L 121/56 L 121/64 Pulse Oximetry 100 100 09/03/18 08:00 09/03/18 12:00 09/03/18 12:10 Temperature 98.4 F 97.9 F Pulse Rate 90 85 Respiratory Rate 20 20 16 Blood Pressure 129/58 L 125/60 Pulse Oximetry 99 98 09/03/18 16:00 09/03/18 16:29 Temperature 98.5 F Pulse Rate 69 Respiratory Rate 20 16 Blood Pressure 113/49 L Pulse Oximetry 99 Intake & Output 09/02/18 09/03/18 09/03/18 18:59 06:59 18:59 Intake Total 715 / 715 869.8 / 869.8 50 / 50 Output Total 1900 / 1900 Balance 715 / 715 -1030.2 / -1030.2 50 / 50 Weight 86.1 kg Intake: IV 715 / 715 869.8 / 869.8 50 / 50 Amikin Inj 1,200 MG In NS Inj 254.8 / 254.8 250 ML @ 254.8 mls/hr IV.SIG Q36H ROBBIE Rx#:[id number] Vancomycin Inj 1,500 MG In NS 515 / 515 515 / 515 Inj 500 ML @ 250 mls/hr IV.SIG Q12H ROBBIE Rx#:[id number] Mefoxin Inj 2 GM In D5W Inj 50 50 / 50 ML @ 100 mls/hr IV.SIG Q8H ROBBIE Rx#:[id number] Mefoxin Inj 2 GM In NS Inj 100 100 / 100 ML @ 200 mls/hr IV.SIG Q8H ROBBIE Rx#:[id number] Mefoxin Inj 2 GM In NS Inj 100 100 / 100 ML @ 200 mls/hr IV.SIG Q8H ROBBIE Rx#:[id number] Mefoxin Inj 2 GM In Bag/Syringe 100 / 100 1 EACH @ 200 mls/hr IV.SIG Q8H ROBBIE Rx#:[id number] Output: Urine 1900 / 1900 Other: Date of Last Bowel Movement 08/31/18 08/31/18 Narrative: exam left hand: dressing in place minimal clear drainage noted minimal gaping of the wound noted flexion deformity at the PIP joint noted decreased range of the middle finger intact sensation cultures: negative to date Results - Labs CBC & Chem 7: 09/03/18 06:48 09/03/18 06:48 Laboratory Results - last 24 hr 09/02/18 09/02/18 09/03/18 22:26 23:45 06:48 WBC RBC Hgb Hct MCV MCH MCHC RDW Plt Count MPV Neut % (Auto) Lymph % (Auto) [place] % (Auto) Eos % (Auto) Baso % (Auto) Neut # (Auto) Lymph # (Auto) [place] # (Auto) Eos # (Auto) Baso # (Auto) WBC Differential Differential Comment Creatinine 0.70 Estimated GFR Greater than 89 POC Glucose 256 H Vancomycin Trough 19.4 H 09/03/18 09/03/18 09/03/18 06:48 07:19 13:00 WBC 12.1 H RBC 3.74 L Hgb 9.4 L Hct 29.1 L MCV 77.9 L MCH 25.3 L MCHC 32.4 RDW 15.5 Plt Count 496 H MPV 6.0 L Neut % (Auto) 82.7 H Lymph % (Auto) 9.8 [place] % (Auto) 6.1 Eos % (Auto) 0.9 Baso % (Auto) 0.5 Neut # (Auto) 10.0 H Lymph # (Auto) 1.2 [place] # (Auto) 0.7 Eos # (Auto) 0.1 Baso # (Auto) 0.1 WBC Differential . Differential Comment Auto diff final Creatinine Estimated GFR POC Glucose 83 225 H Vancomycin Trough 09/03/18 16:26 WBC RBC Hgb Hct MCV MCH MCHC RDW Plt Count MPV Neut % (Auto) Lymph % (Auto) [place] % (Auto) Eos % (Auto) Baso % (Auto) Neut # (Auto) Lymph # (Auto) [place] # (Auto) Eos # (Auto) Baso # (Auto) WBC Differential Differential Comment Creatinine Estimated GFR POC Glucose 142 H Vancomycin Trough Microbiology 08/30/18 00:50 Blood - Peripheral Aerobic Blood Culture - Preliminary No growth in 4 days 08/30/18 00:50 Blood - Peripheral Anaerobic Blood Culture - Preliminary No growth in 4 days 08/30/18 00:55 Blood - Peripheral Aerobic Blood Culture - Preliminary No growth in 4 days 08/30/18 00:55 Blood - Peripheral Anaerobic Blood Culture - Preliminary No growth in 4 days - Procedures 08/28 exploration, flexor tenosynovectomy, debridement/excision of the infected/ necrotic flexor digitorum superficialis, left palm/ring finger Assessment and Plan - Assessment (1) Suppurative tenosynovitis of flexor tendon of left hand Code(s): M65.142 - Other infective (teno)synovitis, left hand Status: Chronic - Plan 58 year old male s/p flexor tenosynovectomy, drainage, tendon debridement left palm/ring finger POD 2 Plan: surrounding skin is cleaned with alcohol wipes dry dressing applied held in place with a cling continue with antibiotics based on ID recommendations continue with limb elevation and range of motion exercises hand surgery will follow.
[2018-09-04] MEDS: DEXTROSE 5% IV.SIG SCH ×6 (01:51→16:58)
[2018-09-04] MEDS: WATER IV.SIG SCH ×6 (01:51→16:58)
[2018-09-04] MEDS: CEFOXITIN IV.SIG SCH ×6 (01:51→16:58)
[2018-09-04] MEDS: Acetaminophen 325 MG Tablet PO PRN (02:23)
[2018-09-04 06:49] LABS: Glomerular Filtration Rate Greater Than 89 mL/min (>89)
[2018-09-04] MEDS: Dextrose 50% in Water 50 ML Vial IV.PUSH PRN (07:51)
[2018-09-04] MEDS: Insulin NovoLOG Aspart Correctional Sugar Inj SQ SCH ×4 (09:52→22:28)
[2018-09-04] MEDS: Senna/Docusate Sodium 8.6/50 MG Tablet PO SCH ×2 (09:53→22:26)
[2018-09-04] MEDS: Ramipril 2.5 MG Capsule PO SCH (09:53)
[2018-09-04] MEDS: Furosemide 20 MG Tablet PO SCH ×2 (09:54→22:26)
[2018-09-04] MEDS: dilTIAZem CD 240 MG Capsule PO SCH (09:54)
[2018-09-04] MEDS: Insulin Detemir Inj 1,000 UNIT/10 ML Vial SQ SCH (09:54)
--- NOTE | 2018-09-04 16:52 | P.PNIM ---
Subjective Interval history: Complaints of back pain today. He feels the pain is not improved. He is on antibiotics and has been on antibiotics. Fever present overnight. Downward trend and leukocytosis. Downward trend and neutrophil count. Physical Exam Vital signs: Vital Signs 09/03/18 19:39 09/03/18 20:00 09/04/18 00:00 Temperature 98.7 F 100.8 F H Pulse Rate 77 84 Respiratory Rate 16 18 16 Blood Pressure 127/66 124/66 Pulse Oximetry 100 100 09/04/18 04:00 09/04/18 08:00 09/04/18 12:00 Temperature 98.4 F 98.0 F 98.3 F Pulse Rate 89 82 91 H Respiratory Rate 16 17 17 Blood Pressure 125/70 153/72 H 141/66 H Pulse Oximetry 99 100 100 Intake & Output 09/03/18 09/04/18 09/04/18 18:59 06:59 18:59 Intake Total 100 / 100 150 / 150 150 / 150 Output Total 1600 / 1600 Balance 100 / 100 -1450 / -1450 150 / 150 Weight 23.5 kg Intake: IV 100 / 100 150 / 150 150 / 150 Tygacil Inj 50 MG In NS Inj 100 100 / 100 100 / 100 ML @ 200 mls/hr IV.SIG Q12H ROBBIE Rx#:[id number] Mefoxin Inj 2 GM In D5W Inj 50 100 / 100 50 / 50 50 / 50 ML @ 100 mls/hr IV.SIG Q8H ROBBIE Rx#:[id number] Output: Urine 1600 / 1600 Other: # Voids 3 Date of Last Bowel Movement 08/31/18 09/04/18 Narrative: GENERAL: NAD, A&Ox3 HEAD: Normocephalic. NECK: Supple, trachea midline. No lymphadenopathy. EYES: No scleral icterus. No injection or drainage. CARDIOVASCULAR: Regular rate and rhythm without murmurs, gallops, or rubs. RESPIRATORY: Breath sounds equal bilaterally. No accessory muscle use. GASTROINTESTINAL: Abdomen soft, non-tender, nondistended. MUSCULOSKELETAL: No cyanosis, or edema. Crease range of motion due to pain most significant at right shoulder and back. Left hand is bandaged. SKIN: Warm and dry. NEURO: No focal neurological deficits. Results - Labs CBC & Chem 7: 09/03/18 06:48 09/04/18 06:02 Laboratory Results - last 24 hr 09/03/18 09/04/18 09/04/18 20:34 06:02 07:39 Creatinine 0.59 L Estimated GFR Greater than 89 POC Glucose 137 H 42 L* 09/04/18 09/04/18 09/04/18 07:40 08:12 09:51 Creatinine Estimated GFR POC Glucose 44 L* 55 L 81 09/04/18 12:41 Creatinine Estimated GFR POC Glucose 191 H Microbiology 08/28/18 19:35 Wound - Finger Acid Fast Bacilli Smear - Final No acid fast bacilli seen 08/28/18 19:35 Wound - Finger Mycobacterial Culture - Preliminary No growth in 1 week 08/28/18 19:35 Wound - Finger Fungal Smear - Final No fungal elements seen 08/28/18 19:35 Wound - Finger Fungal Culture - Preliminary No growth in 1 week 08/30/18 00:50 Blood - Peripheral Aerobic Blood Culture - Final No growth in 5 days 08/30/18 00:50 Blood - Peripheral Anaerobic Blood Culture - Final No growth in 5 days 08/30/18 00:55 Blood - Peripheral Aerobic Blood Culture - Final No growth in 5 days 08/30/18 00:55 Blood - Peripheral Anaerobic Blood Culture - Final No growth in 5 days - Procedures 08/28 exploration, flexor tenosynovectomy, debridement/excision of the infected/ necrotic flexor digitorum superficialis, left palm/ring finger Assessment and Plan - Plan 58-year-old male with history of HTN, HLD, GERD, A. fib, DM, recent hospitalization for lumbar spine discitis currently on outpatient IV vancomycin via PICC, presents with complaints of back pain, hand pain, and dislodgment of PICC line. Sepsis Resolved Suppurative Tenosynovitis of flexor tendon of left hand Subacute discitis Exacerbated Arthropathy Hand surgeon following Continue pain treatments as needed Continue Biaxin Continue Cefoxitin Continue Tygacil Probiotics NSAIDs 2-day course of steroids History of Atrial Fibrillation S/P Ablation Monitor on telemetry Continue Cardizem Continue Eliquis Diabetes mellitus type 2 Follow blood sugars Insulin sliding scale Diabetic diet Hypertension Continue baseline treatment Follow blood pressures Adjust treatments as needed Hyperlipidemia Continue present treatment Follow as an outpatient GERD Continue Protonix DVT Prophylaxis Eliquis
--- NOTE | 2018-09-04 16:59 | P.PNID ---
Subjective Remarks: ID follow up care. Notes reviewed. Patient is a 58-year-old male, presented to the hospital for further antibiotic treatment. He was recently hospitalized July 18 - August 09 and at that time he was diagnosed to have infection on his left hand. He had undergone surgery, and the culture grew Mycobacterium abscesses. During this hospitalization also he was diagnosed to have discitis in L4. Arrangements were made for him to get his IV antibiotics at home and he was on IV vancomycin , as well as oral Biaxin. Patient stated he had 's choice. Patient stated he was not feeling good, and his PICC line accidentally came out. The PICC line came out August 24. He presented back to the hospital on August 26 for further evaluation and treatment. He is complaining of pain in his left hand. Infectious disease consultation has been requested to evaluate the patient. Patient notes that he has severe back pain. Said his hand feels okay. He is happy that he is able to straighten out his fingers. C/S hand negative so far Previous back C/S negative for AFB and fungus Afebrile. Previous hand culture with M abscesses - S to Clarithromycin, Azithromycin, Clofazimine, Tygacil; I - Amikacin, Cefoxitin, Primaxin Antibiotics: Tigecycline Cefoxitin Biaxin Lines: PIV Past Medical History: Amputated toe GERD (gastroesophageal reflux disease) Hyperlipidemia Afib Back pain Diabetes Hypertension Osteomyelitis Foot surgery Allergies/Adverse Reactions: Allergies No Known Drug Allergies Allergy (Verified 08/06/18 15:59) none *MDRO Multi-Drug Resistant Organism Adverse Reaction (Unknown, Uncoded 06/16/17 16:34) MRSA MRSA (foot wound) - 02/12/15, 11/12/16, 03/29/17; (toe) - 03/2016 Objective Vital Signs 09/03/18 19:39 09/03/18 20:00 09/04/18 00:00 Temperature 98.7 F 100.8 F H Pulse Rate 77 84 Respiratory Rate 16 18 16 Blood Pressure 127/66 124/66 Pulse Oximetry 100 100 09/04/18 04:00 09/04/18 08:00 09/04/18 12:00 Temperature 98.4 F 98.0 F 98.3 F Pulse Rate 89 82 91 H Respiratory Rate 16 17 17 Blood Pressure 125/70 153/72 H 141/66 H Pulse Oximetry 99 100 100 Intake & Output 09/03/18 09/04/18 09/04/18 18:59 06:59 18:59 Intake Total 100 / 100 150 / 150 150 / 150 Output Total 1600 / 1600 Balance 100 / 100 -1450 / -1450 150 / 150 Weight 23.5 kg Intake: IV 100 / 100 150 / 150 150 / 150 Tygacil Inj 50 MG In NS Inj 100 100 / 100 100 / 100 ML @ 200 mls/hr IV.SIG Q12H ROBBIE Rx#:[id number] Mefoxin Inj 2 GM In D5W Inj 50 100 / 100 50 / 50 50 / 50 ML @ 100 mls/hr IV.SIG Q8H ROBBIE Rx#:[id number] Output: Urine 1600 / 1600 Other: # Voids 3 Date of Last Bowel Movement 08/31/18 09/04/18 08/28/18 19:35 Wound - Finger Acid Fast Bacilli Smear - Final No acid fast bacilli seen 08/28/18 19:35 Wound - Finger Mycobacterial Culture - Preliminary No growth in 1 week 08/28/18 19:35 Wound - Finger Fungal Smear - Final No fungal elements seen 08/28/18 19:35 Wound - Finger Fungal Culture - Preliminary No growth in 1 week 08/30/18 00:50 Blood - Peripheral Aerobic Blood Culture - Final No growth in 5 days 08/30/18 00:50 Blood - Peripheral Anaerobic Blood Culture - Final No growth in 5 days 08/30/18 00:55 Blood - Peripheral Aerobic Blood Culture - Final No growth in 5 days 08/30/18 00:55 Blood - Peripheral Anaerobic Blood Culture - Final No growth in 5 days Lab - Hematology Results 09/03/18 06:48 WBC 12.1 H RBC 3.74 L Hgb 9.4 L Hct 29.1 L MCV 77.9 L MCH 25.3 L MCHC 32.4 RDW 15.5 Plt Count 496 H MPV 6.0 L Neut % (Auto) 82.7 H Lymph % (Auto) 9.8 [place] % (Auto) 6.1 Eos % (Auto) 0.9 Baso % (Auto) 0.5 Neut # (Auto) 10.0 H Lymph # (Auto) 1.2 [place] # (Auto) 0.7 Eos # (Auto) 0.1 Baso # (Auto) 0.1 WBC Differential . Differential Comment Auto diff final Lab - Chemistry Results 09/02/18 09/03/18 09/03/18 22:26 06:48 07:19 Creatinine 0.70 Estimated GFR Greater than 89 POC Glucose 256 H 83 09/03/18 09/03/18 09/03/18 13:00 16:26 20:34 Creatinine Estimated GFR POC Glucose 225 H 142 H 137 H 09/04/18 09/04/18 09/04/18 06:02 07:39 07:40 Creatinine 0.59 L Estimated GFR Greater than 89 POC Glucose 42 L* 44 L* 09/04/18 09/04/18 09/04/18 08:12 09:51 12:41 Creatinine Estimated GFR POC Glucose 55 L 81 191 H Imaging: ITS Impressions Hand X-Ray 08/27/18 02:55 CONCLUSION: 1. Unremarkable radiographs of the left hand. Lumbar Spine MRI 08/30/18 00:00 CONCLUSION: 1. 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 Epidural abscess extends cephaladly to mid body of L4 and caudally to mid body of L5. 2. Multiple small pockets of abscess are seen in the posterior portion of the disc extending into the epidural space. 3. Slight overall thecal sac stenosis L2-3. 4. Neural foraminal compromise left L2-3, bilateral L4-5. Physical Exam: GENERAL: Alert and oriented, no acute distress. HEENT: Pupils reactive to light. Extraocular movements intact. No icterus. NECK: Supple without adenopathy. No swelling. LUNGS: Clear to auscultation. Sounds are decreased. HEART: Regular S1 and S2. No murmurs heard. ABDOMEN: Bowel sounds present, soft, nontender. EXTREMITIES: Left hand a surgical dressing in place. Sensation intact. SKIN: No diffuse rash. NEUROLOGIC: No gross focal finding. PSYCH: Calm and cooperative. Assessment and Plan - Plan Impression Infection L hand, with M abscessus, worsened with lymphangitis going up his wrist L4 discitis, probably also due to M abscessus; biopsy no osteo, C/S negative, but he was on Abx Recommendation Continue Biaxin x 8 weeks. Continue cefoxitin x 8 weeks. Continue Tygacil (should cover M abscessus as well as pathogens covered by Vanco ) x 8 weeks. Follow new C/S Monitor progress May have to continue to treat the patient with the current antibiotics for a couple of months and to assess his response. I recommend placing a PICC line and arrangement for outpatient antibiotics. He continues to have very severe back pain and Will need to have the pain under control before discharge.
[2018-09-04] MEDS ORDERED: Insulin Detemir Inj 1,000 UNIT/10 ML Vial SQ SCH (21:00)
[2018-09-04] MEDS: Naproxen 500 MG Tablet PO SCH (22:24)
[2018-09-04] MEDS: Sodium Chloride 0.9% 2 ML Flush BID IV.FLUSH SCH (22:28)
[2018-09-05] MEDS: DEXTROSE 5% IV.SIG SCH ×6 (00:25→17:11)
[2018-09-05] MEDS: WATER IV.SIG SCH ×6 (00:25→17:11)
[2018-09-05] MEDS: CEFOXITIN IV.SIG SCH ×6 (00:25→17:11)
[2018-09-05] MEDS ORDERED: Pharmacy Ordered Lab Info OTHER ONE (04:45)
[2018-09-05 07:34] LABS: Baso # (Auto) 0.1 th/mm3 (0.0-0.2); Baso % (Auto) 0.5 % (0.0-2.0); Hematocrit 33.3 % (39.0-51.0); Hemoglobin 10.7 gm/dL (13.0-17.0); Lymph # (Auto) 0.8 th/mm3 (1.0-4.8); Lymph % (Auto) 7.1 % (9.0-44.0); Mean Corpuscular HGB Conc 32.1 % (32.0-36.0); Mean Corpuscular Hemoglobin 25.4 pg (27.0-34.0); Mean Corpuscular Volume 79.2 fL (80.0-100.0); Mean Platelet Volume 6.1 fL (7.0-11.0); Mono # (Auto) 0.5 th/mm3 (0.0-0.9); Mono % (Auto) 4.1 % (0.0-8.0); Neut # (Auto) 10.2 th/mm3 (1.8-7.7); Neut % (Auto) 88.3 % (16.0-70.0); Platelet Count 554 th/mm3 (150-450); Red Blood Count 4.21 mil/mm3 (4.50-5.90); Red Cell Distribution Width 15.5 % (11.6-17.2); White Blood Count 11.6 th/mm3 (4.0-11.0)
[2018-09-05 07:47] LABS: Albumin 2.4 g/dL (3.4-5.0); Anion Gap 9 meq/L (5-15); Aspartate Aminotransferase 13 U/L (15-37); Blood Urea Nitrogen 25 mg/dL (7-18); Calcium 9.4 mg/dL (8.5-10.1); Carbon Dioxide 24.4 meq/L (21.0-32.0); Chloride 99 meq/L (98-107); Glomerular Filtration Rate Greater Than 89 mL/min (>89); Glucose,Random 332 mg/dL (74-106); Potassium 5.1 meq/L (3.5-5.1); Sodium 132 meq/L (136-145)
[2018-09-05 07:48] LABS: Alanine Aminotransferase 20 U/L (12-78)
[2018-09-05 07:51] LABS: Alkaline Phosphatase 166 U/L (45-117); Total Protein 8.4 g/dL (6.4-8.2)
[2018-09-05] MEDS: Senna/Docusate Sodium 8.6/50 MG Tablet PO SCH ×2 (08:01→21:17)
[2018-09-05] MEDS: Furosemide 20 MG Tablet PO SCH ×2 (08:01→21:18)
[2018-09-05] MEDS: dilTIAZem CD 240 MG Capsule PO SCH (08:01)
[2018-09-05] MEDS: predniSONE 20 MG Tablet PO SCH ×2 (08:01→21:18)
[2018-09-05] MEDS: Ramipril 2.5 MG Capsule PO SCH (08:58)
[2018-09-05] MEDS: Insulin NovoLOG Aspart Correctional Sugar Inj SQ SCH ×4 (08:58→21:19)
[2018-09-05] MEDS: Naproxen 500 MG Tablet PO SCH ×2 (08:58→21:17)
[2018-09-05] MEDS: Insulin Detemir Inj 1,000 UNIT/10 ML Vial SQ SCH ×2 (09:45→21:18)
[2018-09-05] MEDS: Sodium Chloride 0.9% 2 ML Flush BID IV.FLUSH SCH ×2 (12:25→21:19)
--- NOTE | 2018-09-05 14:32 | P.PNIM ---
Subjective Interval history: Temporary prednisone and NSAIDs added yesterday. Blood sugars are elevated from steroids. Patient reports less pain as ability to ambulate. He is not back to his prior baseline, however he was able to walk around his room and clean his room some. Physical Exam Vital signs: Vital Signs 09/04/18 16:00 09/04/18 20:00 09/05/18 00:00 Temperature 98.3 F 97.7 F Pulse Rate 82 70 80 Respiratory Rate 17 20 20 Blood Pressure 99/60 L 116/59 L 123/62 Pulse Oximetry 99 100 100 09/05/18 04:00 09/05/18 08:00 09/05/18 12:00 Temperature 96 F L 98.3 F 97.9 F Pulse Rate 76 86 84 Respiratory Rate 20 16 18 Blood Pressure 130/77 129/49 L 126/53 L Pulse Oximetry 99 100 99 Intake & Output 09/04/18 09/05/18 09/05/18 18:59 06:59 18:59 Intake Total 1500 / 1500 270 / 270 150 / 150 Output Total 700 / 700 450 / 450 500 / 500 Balance 800 / 800 -180 / -180 -350 / -350 Intake: IV 200 / 200 150 / 150 150 / 150 Tygacil Inj 50 MG In NS Inj 100 100 / 100 100 / 100 100 / 100 ML @ 200 mls/hr IV.SIG Q12H ROBBIE Rx#:[id number] Mefoxin Inj 2 GM In D5W Inj 50 100 / 100 50 / 50 50 / 50 ML @ 100 mls/hr IV.SIG Q8H ROBBIE Rx#:[id number] Oral 1300 / 1300 120 / 120 Output: Urine 700 / 700 450 / 450 500 / 500 Other: # Voids 3 Date of Last Bowel Movement 09/04/18 09/04/18 # Bowel Movements 1 Narrative: GENERAL: NAD, A&Ox3 HEAD: Normocephalic. NECK: Supple, trachea midline. No lymphadenopathy. EYES: No scleral icterus. No injection or drainage. CARDIOVASCULAR: Regular rate and rhythm without murmurs, gallops, or rubs. RESPIRATORY: Breath sounds equal bilaterally. No accessory muscle use. GASTROINTESTINAL: Abdomen soft, non-tender, nondistended. MUSCULOSKELETAL: No cyanosis, or edema. Crease range of motion due to pain most significant at right shoulder and back. Left hand is bandaged. SKIN: Warm and dry. NEURO: No focal neurological deficits. Results - Labs CBC & Chem 7: 09/05/18 07:03 09/05/18 07:03 Laboratory Results - last 24 hr 09/04/18 09/04/18 09/05/18 17:06 21:56 07:03 WBC RBC Hgb Hct MCV MCH MCHC RDW Plt Count MPV Neut % (Auto) Lymph % (Auto) [place] % (Auto) Eos % (Auto) Baso % (Auto) Neut # (Auto) Lymph # (Auto) [place] # (Auto) Eos # (Auto) Baso # (Auto) WBC Differential Differential Comment Sodium 132 L Potassium 5.1 Chloride 99 Carbon Dioxide 24.4 Anion Gap 9 BUN 25 H Creatinine 0.74 Estimated GFR Greater than 89 POC Glucose 232 H 363 H Random Glucose 332 H Calcium 9.4 Total Bilirubin 0.2 AST 13 L ALT 20 Alkaline Phosphatase 166 H Total Protein 8.4 H Albumin 2.4 L 09/05/18 09/05/18 09/05/18 07:03 08:00 12:35 WBC 11.6 H RBC 4.21 L Hgb 10.7 L Hct 33.3 L MCV 79.2 L MCH 25.4 L MCHC 32.1 RDW 15.5 Plt Count 554 H MPV 6.1 L Neut % (Auto) 88.3 H Lymph % (Auto) 7.1 L [place] % (Auto) 4.1 Eos % (Auto) 0.0 Baso % (Auto) 0.5 Neut # (Auto) 10.2 H Lymph # (Auto) 0.8 L [place] # (Auto) 0.5 Eos # (Auto) 0.0 Baso # (Auto) 0.1 WBC Differential . Differential Comment Auto diff final Sodium Potassium Chloride Carbon Dioxide Anion Gap BUN Creatinine Estimated GFR POC Glucose 381 H 479 H* Random Glucose Calcium Total Bilirubin AST ALT Alkaline Phosphatase Total Protein Albumin Microbiology 08/28/18 19:35 Wound - Finger Acid Fast Bacilli Smear - Final No acid fast bacilli seen 08/28/18 19:35 Wound - Finger Mycobacterial Culture - Preliminary No growth in 1 week 08/28/18 19:35 Wound - Finger Fungal Smear - Final No fungal elements seen 08/28/18 19:35 Wound - Finger Fungal Culture - Preliminary No growth in 1 week 08/30/18 00:50 Blood - Peripheral Aerobic Blood Culture - Final No growth in 5 days 08/30/18 00:50 Blood - Peripheral Anaerobic Blood Culture - Final No growth in 5 days 08/30/18 00:55 Blood - Peripheral Aerobic Blood Culture - Final No growth in 5 days 08/30/18 00:55 Blood - Peripheral Anaerobic Blood Culture - Final No growth in 5 days - Procedures 08/28 exploration, flexor tenosynovectomy, debridement/excision of the infected/ necrotic flexor digitorum superficialis, left palm/ring finger Assessment and Plan - Plan 58-year-old male with history of HTN, HLD, GERD, A. fib, DM, recent hospitalization for lumbar spine discitis currently on outpatient IV vancomycin via PICC, presents with complaints of back pain, hand pain, and dislodgment of PICC line. Continue NSAIDs. Monitor for functional status. Awaiting final cultures and selection of antibiotic prior to discharge. Sepsis Resolved Suppurative Tenosynovitis of flexor tendon of left hand Subacute discitis Exacerbated Arthropathy Hand surgeon following Continue pain treatments as needed Continue Biaxin Continue Cefoxitin Continue Tygacil Probiotics NSAIDs 2-day course of steroids History of Atrial Fibrillation S/P Ablation Monitor on telemetry Continue Cardizem Continue Eliquis Diabetes mellitus type 2 Follow blood sugars Insulin sliding scale Diabetic diet Hypertension Continue baseline treatment Follow blood pressures Adjust treatments as needed Hyperlipidemia Continue present treatment Follow as an outpatient GERD Continue Protonix DVT Prophylaxis Eliquis
--- NOTE | 2018-09-05 17:41 | P.DIET ---
Nutritional Evaluation Type of nutrition evaluation: follow-up Screening comments: Brought forth from previous note: MDC for diet education received 08/29. It states " wants to eat more - supplements" Pt not available when visited. Pt receives a Glucerna Shake on every tray (220 kcals/ 10gms protein). RD will provide diet education at a later date. Subjective Subjective Comments: Pt has a visitor at bedside when visited. Pt eating luis crackers and a tub of peanut butter. Pt says he doesnt need diabetic diet education for consistent CHO; "I all ready know all about that". Pt says his blood glucose is "always 110 at home". Pt says he's not getting enough to eat and needs at least 2800 calories daily. Objective - Diagnosis Sepsis w/Discitits - Objective Dietitian Reviewed in Medical Record: Current diet, Curent medications, Intake & Output, Labs, Medical history Diet Order: Objective Comments: PMH: AFib, Amputated toe, Back Pain, DM, GERD, HLD, HTN, Osteomyelitis Glucose 332, POC Glucose 381, 479 Feeding - Current PO Supplement Current Supplement: Glucerna Shake Current Frequency of Supplement: Three times a day Current kCals Provided by Supplement: 220 Current Protein Provided by Supplement: 10 Assessment Assessment: Pt is an MDC for DM diet education. Pt receptive to receiving the educational handout and booklet for CHO counting; however, pt declines to review the educational material and is verbally dismissive in that he "knows all about CHO counting". RD contact info provided for questions as needed. Current diet is appropriate. Christina Moya TID per . Dietitian to follow as needed. Recommendations: 1. Pt provided w/DM diet education handout and booklet for CHO counting; however , pt declines to review the educational material and is verbally dismissive in that he "knows all about CHO counting " 2. RD contact info provided for questions as needed 3. Current 2199ADA diet is appropriate 4. Glucerna Shakes TID per MD 5. Dietitian to follow as needed
[2018-09-06] MEDS: CEFOXITIN IV.SIG SCH ×6 (01:16→17:24)
[2018-09-06] MEDS: WATER IV.SIG SCH ×6 (01:16→17:24)
[2018-09-06] MEDS: DEXTROSE 5% IV.SIG SCH ×6 (01:16→17:24)
[2018-09-06] MEDS: Furosemide 20 MG Tablet PO SCH ×2 (09:38→21:53)
[2018-09-06] MEDS: Naproxen 500 MG Tablet PO SCH (09:38)
[2018-09-06] MEDS: Ramipril 2.5 MG Capsule PO SCH (09:38)
[2018-09-06] MEDS: dilTIAZem CD 240 MG Capsule PO SCH (09:38)
[2018-09-06] MEDS: Senna/Docusate Sodium 8.6/50 MG Tablet PO SCH ×2 (09:38→21:52)
[2018-09-06] MEDS: predniSONE 20 MG Tablet PO SCH ×2 (09:39→21:52)
[2018-09-06] MEDS: Insulin Detemir Inj 1,000 UNIT/10 ML Vial SQ SCH ×2 (09:39→21:54)
[2018-09-06] MEDS: Insulin NovoLOG Aspart Correctional Sugar Inj SQ SCH ×4 (09:39→21:53)
[2018-09-06] MEDS: Sodium Chloride 0.9% 2 ML Flush BID IV.FLUSH SCH ×2 (09:40→21:54)
--- NOTE | 2018-09-06 12:49 | P.DCO ---
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 Venous Access: PICC Line Additional Instructions: [x] Peripheral flush and dressing changes per protocol [x] Implanted port and central construction lineman: * Implanted port: 10 ml Normal Saline followed by 5 ml Heparin 100 units/ml Heparin flush after each use and monthly to maintain. [] May leave port accessed during therapy. [] May leave peripheral site accessed for duration of therapy. [x] If patient has SOB or respiratory distress, check oxygen saturation. If less than 90% or clinical signs of respiratory distress, administer oxygen at 2 L/min. via nasal cannula and notify physician. [x] Anaphylaxis/Reaction orders: * Stop infusion. * Keep IV line open with saline flush. * Notify physician. * Monitor vital signs every 15 minutes until symptoms resolve. * Check Oxygen saturation; Oxygen at 2 L/min. via nasal cannula if less than 90% or clinical signs of respiratory distress. * Administer diphenhydramine (Benadryl) 25 mg IV STAT, (unless patient has received as pre-med). May repeat once, if necessary. * Solu-Cortef 250 mg IVP over 30-60 seconds, use 100 mg vials for each dissolution. * Epinephrine (1mg/1 ml) 0.3 mg subcutaneously or IVP now with any signs of respiratory distress. * Check with physician for new additional pre-med orders if patient is re- challenged or re-treated. [x] May remove PICC line when treatment complete, after confirming with Physician. [x] If the patient is admitted to the hospital, the ED, or transferred via [facility] , complete transfer form including medication reconciliation order sheet. Weekly Labs: BMP, CBC w/diff, SED Rate Additional Information: Biaxin 500mg PO BID until 10/04/2018. Follow up with Dr Hina Orellana in 1 week. - Patient Information Allergies No Known Drug Allergies Allergy (Verified 08/06/18 15:59) none *MDRO Multi-Drug Resistant Organism Adverse Reaction (Unknown, Uncoded 06/16/17 16:34) MRSA MRSA (foot wound) - 02/12/15, 11/12/16, 03/29/17; (toe) - 03/2016 (1) Osteomyelitis Qualifiers: Osteomyelitis location: hand Laterality: left
--- NOTE | 2018-09-06 12:56 | P.PNID ---
Subjective Remarks: Patient notes that he continues to have significant back pain. Denies nausea vomiting. Denies fever. Denies chills. Afebrile. States that his left hand feels fine. Patient is a 58-year-old male, presented to the hospital for further antibiotic treatment. He was recently hospitalized July 18 - August 09 and at that time he was diagnosed to have infection on his left hand. He had undergone surgery, and the culture grew Mycobacterium abscesses. During this hospitalization also he was diagnosed to have discitis in L4. Arrangements were made for him to get his IV antibiotics at home and he was on IV vancomycin , as well as oral Biaxin. Patient stated he had 's choice. Patient stated he was not feeling good, and his PICC line accidentally came out. The PICC line came out August 24. He presented back to the hospital on August 26 for further evaluation and treatment. Infectious disease consultation has been requested to evaluate the patient. C/S hand negative so far Previous back C/S negative for AFB and fungus Previous hand culture with M abscesses - S to Clarithromycin, Azithromycin, Clofazimine, Tygacil; I - Amikacin, Cefoxitin, Primaxin Antibiotics: Tigecycline Cefoxitin Biaxin Lines: PIV Past Medical History: Amputated toe GERD (gastroesophageal reflux disease) Hyperlipidemia Afib Back pain Diabetes Hypertension Osteomyelitis Foot surgery Allergies/Adverse Reactions: Allergies No Known Drug Allergies Allergy (Verified 08/06/18 15:59) none *MDRO Multi-Drug Resistant Organism Adverse Reaction (Unknown, Uncoded 06/16/17 16:34) MRSA MRSA (foot wound) - 02/12/15, 11/12/16, 03/29/17; (toe) - 03/2016 Objective Vital Signs 09/05/18 16:00 09/05/18 20:00 09/06/18 00:00 Temperature 97.8 F 97.9 F 98.2 F Pulse Rate 69 74 78 Respiratory Rate 18 18 18 Blood Pressure 136/63 133/61 134/57 L Pulse Oximetry 100 100 100 09/06/18 04:00 09/06/18 08:00 Temperature 97.2 F L 97.3 F L Pulse Rate 71 83 Respiratory Rate 18 20 Blood Pressure 152/67 H 149/66 H Pulse Oximetry 98 99 Intake & Output 09/05/18 09/06/18 09/06/18 18:59 06:59 18:59 Intake Total 200 / 200 150 / 150 50 / 50 Output Total 500 / 500 Balance -300 / -300 150 / 150 50 / 50 Weight 23.5 kg 23.5 kg Intake: IV 200 / 200 150 / 150 50 / 50 Tygacil Inj 50 MG In NS Inj 100 100 / 100 100 / 100 ML @ 200 mls/hr IV.SIG Q12H ROBBIE Rx#:[id number] Mefoxin Inj 2 GM In D5W Inj 50 100 / 100 50 / 50 50 / 50 ML @ 100 mls/hr IV.SIG Q8H ROBBIE Rx#:[id number] Output: Urine 500 / 500 Other: Date of Last Bowel Movement 09/04/18 09/04/18 08/28/18 19:35 Wound - Finger Acid Fast Bacilli Smear - Final No acid fast bacilli seen 08/28/18 19:35 Wound - Finger Mycobacterial Culture - Preliminary No growth in 1 week 08/28/18 19:35 Wound - Finger Fungal Smear - Final No fungal elements seen 08/28/18 19:35 Wound - Finger Fungal Culture - Preliminary No growth in 1 week 08/30/18 00:50 Blood - Peripheral Aerobic Blood Culture - Final No growth in 5 days 08/30/18 00:50 Blood - Peripheral Anaerobic Blood Culture - Final No growth in 5 days 08/30/18 00:55 Blood - Peripheral Aerobic Blood Culture - Final No growth in 5 days 08/30/18 00:55 Blood - Peripheral Anaerobic Blood Culture - Final No growth in 5 days Lab - Hematology Results 09/05/18 07:03 WBC 11.6 H RBC 4.21 L Hgb 10.7 L Hct 33.3 L MCV 79.2 L MCH 25.4 L MCHC 32.1 RDW 15.5 Plt Count 554 H MPV 6.1 L Neut % (Auto) 88.3 H Lymph % (Auto) 7.1 L [place] % (Auto) 4.1 Eos % (Auto) 0.0 Baso % (Auto) 0.5 Neut # (Auto) 10.2 H Lymph # (Auto) 0.8 L [place] # (Auto) 0.5 Eos # (Auto) 0.0 Baso # (Auto) 0.1 WBC Differential . Differential Comment Auto diff final Lab - Chemistry Results 09/04/18 09/04/18 09/05/18 17:06 21:56 07:03 Sodium 132 L Potassium 5.1 Chloride 99 Carbon Dioxide 24.4 Anion Gap 9 BUN 25 H Creatinine 0.74 Estimated GFR Greater than 89 POC Glucose 232 H 363 H Random Glucose 332 H Calcium 9.4 Total Bilirubin 0.2 AST 13 L ALT 20 Alkaline Phosphatase 166 H Total Protein 8.4 H Albumin 2.4 L 09/05/18 09/05/18 09/05/18 08:00 12:35 18:28 Sodium Potassium Chloride Carbon Dioxide Anion Gap BUN Creatinine Estimated GFR POC Glucose 381 H 479 H* 482 H* Random Glucose Calcium Total Bilirubin AST ALT Alkaline Phosphatase Total Protein Albumin 09/05/18 09/06/18 09/06/18 20:07 07:39 11:53 Sodium Potassium Chloride Carbon Dioxide Anion Gap BUN Creatinine Estimated GFR POC Glucose 480 H* 303 H 306 H Random Glucose Calcium Total Bilirubin AST ALT Alkaline Phosphatase Total Protein Albumin Imaging: ITS Impressions Hand X-Ray 08/27/18 02:55 CONCLUSION: 1. Unremarkable radiographs of the left hand. Lumbar Spine MRI 08/30/18 00:00 CONCLUSION: 1. 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 Epidural abscess extends cephaladly to mid body of L4 and caudally to mid body of L5. 2. Multiple small pockets of abscess are seen in the posterior portion of the disc extending into the epidural space. 3. Slight overall thecal sac stenosis L2-3. 4. Neural foraminal compromise left L2-3, bilateral L4-5. Physical Exam: GENERAL: Alert and oriented, no acute distress. HEENT: Pupils reactive to light. Extraocular movements intact. No icterus. NECK: Supple without adenopathy. No swelling. LUNGS: Clear to auscultation. Sounds are decreased. HEART: Regular S1 and S2. No murmurs heard. ABDOMEN: Bowel sounds present, soft, nontender. EXTREMITIES: Left hand a surgical dressing in place. Sensation intact. SKIN: No diffuse rash. NEUROLOGIC: No gross focal finding. PSYCH: Calm and cooperative. 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 Improved after repeat surgery. L4 discitis, probably also due to M abscessus. Recommendation Continue Biaxin x 8 weeks. Continue cefoxitin x 8 weeks. Continue Tygacil (should cover M abscessus as well as pathogens covered by Vanco ) x 8 weeks. Follow new C/S Monitor progress PICC line ordered. Patient needs to follow-up with infectious disease physician outpatient to continue plan on treatment and management Can be discharged from ID standpoint. Please make sure patient has prescription for the Biaxin p.o. twice daily when he is discharged. (1) Osteomyelitis Qualifiers: Osteomyelitis location: hand Laterality: left
[2018-09-06] MEDS ORDERED: HYDROmorphone PF Inj 2 MG/ML Vial IV.PUSH ONE (14:03)
[2018-09-06] MEDS ORDERED: MethylPREDNISolone Sod Succinate Inj 40 MG/ML Vial IV.PUSH ONE (14:05)
[2018-09-06] MEDS ORDERED: Meloxicam 15 MG Tablet PO ONE (14:06)
--- NOTE | 2018-09-06 14:12 | P.PNIM ---
Subjective Interval history: Pain worse again today. He has response with high dose steroids, but due to infection and uncontrolled blood sugars, this is not a good chcf option. No other complaints today. Physical Exam Vital signs: Vital Signs 09/05/18 16:00 09/05/18 20:00 09/06/18 00:00 Temperature 97.8 F 97.9 F 98.2 F Pulse Rate 69 74 78 Respiratory Rate 18 18 18 Blood Pressure 136/63 133/61 134/57 L Pulse Oximetry 100 100 100 09/06/18 04:00 09/06/18 08:00 09/06/18 12:00 Temperature 97.2 F L 97.3 F L 98 F Pulse Rate 71 83 76 Respiratory Rate 18 20 20 Blood Pressure 152/67 H 149/66 H 132/62 Pulse Oximetry 98 99 99 Intake & Output 09/05/18 09/06/18 09/06/18 18:59 06:59 18:59 Intake Total 200 / 200 150 / 150 150 / 150 Output Total 500 / 500 Balance -300 / -300 150 / 150 150 / 150 Weight 23.5 kg 23.5 kg Intake: IV 200 / 200 150 / 150 150 / 150 Tygacil Inj 50 MG In NS Inj 100 100 / 100 100 / 100 100 / 100 ML @ 200 mls/hr IV.SIG Q12H ROBBIE Rx#:[id number] Mefoxin Inj 2 GM In D5W Inj 50 100 / 100 50 / 50 50 / 50 ML @ 100 mls/hr IV.SIG Q8H ROBBIE Rx#:[id number] Output: Urine 500 / 500 Other: Date of Last Bowel Movement 09/04/18 09/04/18 Narrative: GENERAL: NAD, A&Ox3 HEAD: Normocephalic. NECK: Supple, trachea midline. No lymphadenopathy. EYES: No scleral icterus. No injection or drainage. CARDIOVASCULAR: Regular rate and rhythm without murmurs, gallops, or rubs. RESPIRATORY: Breath sounds equal bilaterally. No accessory muscle use. GASTROINTESTINAL: Abdomen soft, non-tender, nondistended. MUSCULOSKELETAL: No cyanosis, or edema. Crease range of motion due to pain most significant at right shoulder and back. Left hand is bandaged. SKIN: Warm and dry. NEURO: No focal neurological deficits. Results - Labs CBC & Chem 7: 09/05/18 07:03 09/05/18 07:03 Laboratory Results - last 24 hr 09/05/18 09/05/18 09/06/18 18:28 20:07 07:39 POC Glucose 482 H* 480 H* 303 H 09/06/18 11:53 POC Glucose 306 H - Procedures 08/28 exploration, flexor tenosynovectomy, debridement/excision of the infected/ necrotic flexor digitorum superficialis, left palm/ring finger Assessment and Plan - Plan 58-year-old male with history of HTN, HLD, GERD, A. fib, DM, recent hospitalization for lumbar spine discitis currently on outpatient IV vancomycin via PICC, presents with complaints of back pain, hand pain, and dislodgment of PICC line. Continue NSAIDs (Naproxen changed to Mobic). Increase narcotics. Steroids to discontinue tonight. Monitor for functional status, needs to function better prior to home. Sepsis Resolved Suppurative Tenosynovitis of flexor tendon of left hand Subacute discitis Exacerbated Arthropathy Hand surgeon following Continue pain treatments as needed Continue Biaxin x 8 weeks. Continue cefoxitin x 8 weeks. Continue Tygacil (should cover M abscessus as well as pathogens covered by Vanco ) x 8 weeks. Probiotics NSAIDs Long acting narcotic added for pain control PICC placement pending History of Atrial Fibrillation S/P Ablation Monitor on telemetry Continue Cardizem Continue Eliquis Diabetes mellitus type 2 Follow blood sugars Insulin sliding scale Diabetic diet Hypertension Continue baseline treatment Follow blood pressures Adjust treatments as needed Hyperlipidemia Continue present treatment Follow as an outpatient GERD Continue Protonix DVT Prophylaxis Eliquis
--- NOTE | 2018-09-06 14:56 | P.DCO ---
- Home Health Nursing Order: Medical education, Signs/symptoms of disease process, Wound care and dressing changes, Nursing assessment with vital signs - Case Management Consult No - Certification I have seen patient Tyron Sandoval on 09/06/18. My clinical findings support the need for the requested home health care services because: Deconditioned with increased weakness, Infection with risk of complications I certify that my clinical findings support that this patient is homebound because: Unsteady gait/balance, Unsafe to leave home unassisted, Unable to use public transportation
[2018-09-06] MEDS ORDERED: Heparin Central Flush 100 UNIT/ML 5 ML Vial IV.FLUSH PRN (15:55)
[2018-09-06] MEDS: HYDROmorphone PF Inj 2 MG/ML Vial IV.PUSH PRN (20:13)
[2018-09-06] MEDS: oxyCODONE HCL 20 MG Controlled Release Tablet PO SCH (21:52)
[2018-09-07] MEDS: DEXTROSE 5% IV.SIG SCH ×6 (00:15→16:44)
[2018-09-07] MEDS: WATER IV.SIG SCH ×6 (00:15→16:44)
[2018-09-07] MEDS: CEFOXITIN IV.SIG SCH ×6 (00:15→16:44)
[2018-09-07] MEDS: HYDROmorphone PF Inj 2 MG/ML Vial IV.PUSH PRN ×6 (00:15→22:15)
[2018-09-07] MEDS: dilTIAZem CD 240 MG Capsule PO SCH (08:18)
[2018-09-07] MEDS: Furosemide 20 MG Tablet PO SCH ×2 (08:18→21:15)
[2018-09-07] MEDS: Heparin Central Flush 100 UNIT/ML 5 ML Vial IV.FLUSH SCH (08:18)
[2018-09-07] MEDS: oxyCODONE HCL 20 MG Controlled Release Tablet PO SCH ×2 (08:18→21:15)
[2018-09-07] MEDS: Senna/Docusate Sodium 8.6/50 MG Tablet PO SCH ×2 (08:18→21:15)
[2018-09-07] MEDS: Ramipril 2.5 MG Capsule PO SCH (08:18)
[2018-09-07] MEDS: Insulin Detemir Inj 1,000 UNIT/10 ML Vial SQ SCH ×2 (08:19→21:17)
[2018-09-07] MEDS: Sodium Chloride 0.9% 2 ML Flush BID IV.FLUSH SCH ×2 (08:19→21:16)
[2018-09-07] MEDS: Insulin NovoLOG Aspart Correctional Sugar Inj SQ SCH ×4 (08:19→21:16)
[2018-09-07] MEDS: Meloxicam 7.5 MG Tablet PO SCH ×2 (09:09→21:15)
--- NOTE | 2018-09-07 13:50 | P.PNIM ---
Subjective Interval history: Pain is slightly improved compared to previous day. Blood sugars are improving off steroids today. Patient is not yet functional due to pain. Physical Exam Vital signs: Vital Signs 09/06/18 16:00 09/06/18 20:00 09/07/18 00:00 Temperature 97.9 F 97.8 F 97.9 F Pulse Rate 73 82 110 H Respiratory Rate 20 18 18 Blood Pressure 135/60 151/63 H 127/60 Pulse Oximetry 100 97 100 09/07/18 04:00 09/07/18 08:00 09/07/18 12:00 Temperature 97.9 F 97.0 F L 97.7 F Pulse Rate 87 86 90 Respiratory Rate 18 15 16 Blood Pressure 148/67 H 143/65 H 139/63 Pulse Oximetry 99 100 99 Intake & Output 09/06/18 09/07/18 09/07/18 18:59 06:59 18:59 Intake Total 1640 / 1640 150 / 150 930 / 930 Output Total 700 / 700 1300 / 1300 Balance 940 / 940 -1150 / -1150 930 / 930 Weight 23.5 kg 23.5 kg Intake: IV 200 / 200 150 / 150 150 / 150 Tygacil Inj 50 MG In NS Inj 100 100 / 100 100 / 100 100 / 100 ML @ 200 mls/hr IV.SIG Q12H [facility] Rx#:[id number] Mefoxin Inj 2 GM In D5W Inj 50 100 / 100 50 / 50 50 / 50 ML @ 100 mls/hr IV.SIG Q8H [facility] Rx#:[id number] Oral 1440 / 1440 780 / 780 Output: Urine 700 / 700 1300 / 1300 Other: # Voids 6 Date of Last Bowel Movement 09/06/18 09/06/18 09/06/18 # Bowel Movements 1 1 Narrative: GENERAL: NAD, A&Ox3 HEAD: Normocephalic. NECK: Supple, trachea midline. No lymphadenopathy. EYES: No scleral icterus. No injection or drainage. CARDIOVASCULAR: Regular rate and rhythm without murmurs, gallops, or rubs. RESPIRATORY: Breath sounds equal bilaterally. No accessory muscle use. GASTROINTESTINAL: Abdomen soft, non-tender, nondistended. MUSCULOSKELETAL: No cyanosis, or edema. Crease range of motion due to pain most significant at right shoulder and back. Left hand is bandaged. SKIN: Warm and dry. NEURO: No focal neurological deficits. Results - Labs CBC & Chem 7: 09/05/18 07:03 09/05/18 07:03 Laboratory Results - last 24 hr 09/06/18 09/06/18 09/07/18 16:28 20:14 07:43 POC Glucose 333 H 488 H* 409 H 09/07/18 11:42 POC Glucose 356 H - Procedures 08/28 exploration, flexor tenosynovectomy, debridement/excision of the infected/ necrotic flexor digitorum superficialis, left palm/ring finger Assessment and Plan - Plan 58-year-old male with history of HTN, HLD, GERD, A. fib, DM, recent hospitalization for lumbar spine discitis currently on outpatient IV vancomycin via PICC, presents with complaints of back pain, hand pain, and dislodgment of PICC line. Narcotics adjusted. Increase long-acting and decrease short acting narcotic. Continue breakthrough Dilaudid for pain. Continue Mobic. Physical therapy, occupational therapy. Antibiotic treatment plan is in place at this point. Sepsis Resolved Suppurative Tenosynovitis of flexor tendon of left hand Subacute discitis Exacerbated Arthropathy Hand surgeon following Continue pain treatments as needed Continue Biaxin x 8 weeks. Continue cefoxitin x 8 weeks. Continue Tygacil (should cover M abscessus as well as pathogens covered by Vanco ) x 8 weeks. Probiotics NSAIDs Long acting narcotic added for pain control PICC placement pending History of Atrial Fibrillation S/P Ablation Monitor on telemetry Continue Cardizem Continue Eliquis Diabetes mellitus type 2 Follow blood sugars Insulin sliding scale Diabetic diet Hypertension Continue baseline treatment Follow blood pressures Adjust treatments as needed Hyperlipidemia Continue present treatment Follow as an outpatient GERD Continue Protonix DVT Prophylaxis Eliquis
[2018-09-08] MEDS: DEXTROSE 5% IV.SIG SCH ×6 (01:38→17:28)
[2018-09-08] MEDS: WATER IV.SIG SCH ×6 (01:38→17:28)
[2018-09-08] MEDS: Sodium Chloride 0.9% 2 ML Flush PRN IV.FLUSH (01:38)
[2018-09-08] MEDS: CEFOXITIN IV.SIG SCH ×6 (01:38→17:28)
[2018-09-08] MEDS: HYDROmorphone PF Inj 2 MG/ML Vial IV.PUSH PRN ×5 (05:08→21:38)
[2018-09-08] MEDS: Insulin NovoLOG Aspart Correctional Sugar Inj SQ SCH ×4 (07:44→20:44)
[2018-09-08] MEDS: Senna/Docusate Sodium 8.6/50 MG Tablet PO SCH ×2 (09:09→20:46)
[2018-09-08] MEDS: dilTIAZem CD 240 MG Capsule PO SCH (09:09)
[2018-09-08] MEDS: oxyCODONE HCL 80 MG Controlled Release Tablet PO SCH ×2 (09:09→20:46)
[2018-09-08] MEDS: Furosemide 20 MG Tablet PO SCH ×2 (09:09→20:46)
[2018-09-08] MEDS: Meloxicam 7.5 MG Tablet PO SCH ×2 (09:09→20:46)
[2018-09-08] MEDS: Ramipril 2.5 MG Capsule PO SCH (09:10)
[2018-09-08] MEDS: Heparin Central Flush 100 UNIT/ML 5 ML Vial IV.FLUSH SCH (09:10)
[2018-09-08] MEDS: Insulin Detemir Inj 1,000 UNIT/10 ML Vial SQ SCH ×2 (09:10→21:39)
[2018-09-08] MEDS: Sodium Chloride 0.9% 2 ML Flush BID IV.FLUSH SCH ×2 (09:11→20:47)
--- NOTE | 2018-09-08 15:54 | P.PNIM ---
Subjective Interval history: 100.5 degrees fever documented overnight. No recurrence of fever thus far today. Pain is still present Physical Exam Vital signs: Vital Signs 09/07/18 16:00 09/07/18 20:00 09/07/18 23:08 Temperature 97.7 F 97.7 F Pulse Rate 83 75 Respiratory Rate 13 20 18 Blood Pressure 145/61 H 121/64 Pulse Oximetry 100 99 09/08/18 00:00 09/08/18 01:51 09/08/18 02:14 Temperature 97.5 F L Pulse Rate 86 Respiratory Rate 18 18 18 Blood Pressure 133/60 Pulse Oximetry 100 09/08/18 02:16 09/08/18 04:00 09/08/18 06:07 Temperature 97.8 F Pulse Rate 83 Respiratory Rate 18 20 16 Blood Pressure 113/85 Pulse Oximetry 99 09/08/18 08:00 09/08/18 11:57 Temperature 98.2 F 100.5 F H Pulse Rate 88 104 H Respiratory Rate 16 20 Blood Pressure 105/67 130/58 L Pulse Oximetry 99 99 Intake & Output 09/07/18 09/08/18 09/08/18 18:59 06:59 18:59 Intake Total 980 / 980 150 / 150 150 / 150 Output Total 1700 / 1700 Balance 980 / 980 -1550 / -1550 150 / 150 Intake: IV 200 / 200 150 / 150 150 / 150 Tygacil Inj 50 MG In NS Inj 100 100 / 100 100 / 100 100 / 100 ML @ 200 mls/hr IV.SIG Q12H [facility] Rx#:[id number] Mefoxin Inj 2 GM In D5W Inj 50 100 / 100 50 / 50 50 / 50 ML @ 100 mls/hr IV.SIG Q8H [facility] Rx#:[id number] Oral 780 / 780 Output: Urine 1700 / 1700 Other: # Voids 5 Date of Last Bowel Movement 09/06/18 09/07/18 09/07/18 # Bowel Movements 1 Narrative: GENERAL: NAD, A&Ox3 HEAD: Normocephalic. NECK: Supple, trachea midline. No lymphadenopathy. EYES: No scleral icterus. No injection or drainage. CARDIOVASCULAR: Regular rate and rhythm without murmurs, gallops, or rubs. RESPIRATORY: Breath sounds equal bilaterally. No accessory muscle use. GASTROINTESTINAL: Abdomen soft, non-tender, nondistended. MUSCULOSKELETAL: No cyanosis, or edema. Crease range of motion due to pain most significant at right shoulder and back. Left hand is bandaged. SKIN: Warm and dry. NEURO: No focal neurological deficits. Results - Labs CBC & Chem 7: 09/05/18 07:03 09/05/18 07:03 Laboratory Results - last 24 hr 09/07/18 09/07/18 09/08/18 16:04 21:06 07:04 POC Glucose 286 H 293 H 103 09/08/18 11:12 POC Glucose 147 H - Procedures 08/28 exploration, flexor tenosynovectomy, debridement/excision of the infected/ necrotic flexor digitorum superficialis, left palm/ring finger Assessment and Plan - Plan 58-year-old male with history of HTN, HLD, GERD, A. fib, DM, recent hospitalization for lumbar spine discitis currently on outpatient IV vancomycin via PICC, presents with complaints of back pain, hand pain, and dislodgment of PICC line. Continue narcotics. Continue Mobic. Continue physical therapy. Continue occupational therapy. Monitor for pain control. Monitor for any recurrence of fever. Sepsis Resolved Suppurative Tenosynovitis of flexor tendon of left hand Subacute discitis Exacerbated Arthropathy Hand surgeon following Continue pain treatments as needed Continue Biaxin x 8 weeks. Continue cefoxitin x 8 weeks. Continue Tygacil (should cover M abscessus as well as pathogens covered by Vanco ) x 8 weeks. Probiotics NSAIDs Long acting narcotic added for pain control PICC placement pending History of Atrial Fibrillation S/P Ablation Monitor on telemetry Continue Cardizem Continue Eliquis Diabetes mellitus type 2 Follow blood sugars Insulin sliding scale Diabetic diet Hypertension Continue baseline treatment Follow blood pressures Adjust treatments as needed Hyperlipidemia Continue present treatment Follow as an outpatient GERD Continue Protonix DVT Prophylaxis Eliquis
[2018-09-09] MEDS: WATER IV.SIG SCH ×4 (01:08→20:37)
[2018-09-09] MEDS: CEFOXITIN IV.SIG SCH ×4 (01:08→20:37)
[2018-09-09] MEDS: DEXTROSE 5% IV.SIG SCH ×4 (01:08→20:37)
[2018-09-09] MEDS: HYDROmorphone PF Inj 2 MG/ML Vial IV.PUSH PRN ×5 (01:58→22:43)
[2018-09-09] MEDS: Sodium Chloride 0.9% 2 ML Flush BID IV.FLUSH SCH ×2 (09:00→21:17)
[2018-09-09] MEDS: dilTIAZem CD 240 MG Capsule PO SCH (10:06)
[2018-09-09] MEDS: Furosemide 20 MG Tablet PO SCH ×2 (10:06→20:15)
[2018-09-09] MEDS: oxyCODONE HCL 80 MG Controlled Release Tablet PO SCH ×2 (10:07→20:15)
[2018-09-09] MEDS: Senna/Docusate Sodium 8.6/50 MG Tablet PO SCH ×2 (10:08→20:15)
[2018-09-09] MEDS: Heparin Central Flush 100 UNIT/ML 5 ML Vial IV.FLUSH SCH (10:08)
[2018-09-09] MEDS: Meloxicam 7.5 MG Tablet PO SCH ×2 (10:08→20:15)
[2018-09-09] MEDS: Ramipril 2.5 MG Capsule PO SCH (10:08)
[2018-09-09] MEDS: Insulin Detemir Inj 1,000 UNIT/10 ML Vial SQ SCH (10:14)
[2018-09-09] MEDS: Insulin NovoLOG Aspart Correctional Sugar Inj SQ SCH ×4 (10:18→21:17)
--- NOTE | 2018-09-09 16:42 | P.PNIM ---
Subjective Interval history: The patient said he wants to go home soon but he said his pain is not controlled enough for him to get around the house. He says he has had multiple infections over the years. He says he has a high tolerance for pain medication. Discussed with nursing. Physical Exam Vital signs: Vital Signs 09/08/18 20:00 09/09/18 00:00 09/09/18 04:00 Temperature 98.5 F 98.8 F 97.8 F Pulse Rate 77 80 88 Respiratory Rate 18 18 18 Blood Pressure 149/61 H 110/53 L 154/66 H Pulse Oximetry 99 100 100 09/09/18 08:00 09/09/18 12:00 Temperature 97.1 F L 98.9 F Pulse Rate 83 93 H Respiratory Rate 18 14 Blood Pressure 120/61 131/65 Pulse Oximetry 96 98 Intake & Output 09/08/18 09/09/18 09/09/18 18:59 06:59 18:59 Intake Total 200 / 200 1130 / 1130 Output Total 1600 / 1600 Balance 200 / 200 -470 / -470 Weight 87.8 kg Intake: IV 200 / 200 150 / 150 Tygacil Inj 50 MG In NS Inj 100 100 / 100 100 / 100 ML @ 200 mls/hr IV.SIG Q12H [facility] Rx#:[id number] Mefoxin Inj 2 GM In D5W Inj 50 100 / 100 50 / 50 ML @ 100 mls/hr IV.SIG Q8H [facility] Rx#:[id number] Oral 980 / 980 Output: Urine 1600 / 1600 Other: Date of Last Bowel Movement 09/07/18 09/07/18 # Bowel Movements 1 Narrative: GENERAL: NAD. HEAD: Normocephalic. NECK: Supple, trachea midline. No lymphadenopathy. EYES: No scleral icterus. No injection or drainage. CARDIOVASCULAR: Regular rate and rhythm without murmurs, gallops, or rubs. RESPIRATORY: Breath sounds equal bilaterally. No accessory muscle use. GASTROINTESTINAL: Abdomen soft, non-tender, nondistended. MUSCULOSKELETAL: No cyanosis, or edema. Crease range of motion due to pain most significant at right shoulder and back. Left hand is bandaged. SKIN: Warm and dry. NEURO: No focal neurological deficits. Results - Labs CBC & Chem 7: 09/05/18 07:03 09/05/18 07:03 Laboratory Results - last 24 hr 09/08/18 09/09/18 09/09/18 20:43 03:24 05:42 POC Glucose 91 66 L 217 H 09/09/18 09/09/18 08:25 13:33 POC Glucose 160 H 192 H - Procedures 08/28 exploration, flexor tenosynovectomy, debridement/excision of the infected/ necrotic flexor digitorum superficialis, left palm/ring finger Assessment and Plan - Plan 58-year-old male with history of HTN, HLD, GERD, A. fib, DM, recent hospitalization for lumbar spine discitis currently on outpatient IV vancomycin via PICC, presents with complaints of back pain, hand pain, and dislodgment of PICC line. Sepsis Resolved Suppurative Tenosynovitis of flexor tendon of left hand Subacute discitis Exacerbated Arthropathy Hand surgeon following Continue pain treatments as needed. Wean off IV Dilaudid. Continue Biaxin x 8 weeks. Continue cefoxitin x 8 weeks. Continue Tygacil (should cover M abscessus as well as pathogens covered by Vanco ) x 8 weeks. Probiotics NSAIDs Long acting narcotic added for pain control PICC placed. -will need outpt follow-up with ID. History of Atrial Fibrillation S/P Ablation Monitor on telemetry Continue Cardizem Continue Eliquis Diabetes mellitus type 2 Follow blood sugars -continue long acting insulin. -Insulin sliding scale -Diabetic diet Hypertension Continue baseline treatment Follow blood pressures Adjust treatments as needed Hyperlipidemia Continue present treatment Follow as an outpatient GERD Continue Protonix DVT Prophylaxis Eliquis Discharge Planning: D/c when pain better controlled. Will need [facility] for antibiotics
[2018-09-09] MEDS ORDERED: Insulin Detemir Inj 1,000 UNIT/10 ML Vial SQ SCH (21:00)
[2018-09-09] MEDS: Sodium Chloride 0.9% 2 ML Flush PRN IV.FLUSH (22:44)
[2018-09-10] MEDS: HYDROmorphone PF Inj 2 MG/ML Vial IV.PUSH PRN ×4 (06:40→23:50)
[2018-09-10 08:40] LABS: Baso % (Auto) 0.3 % (0.0-2.0); Eos % (Auto) 0.1 % (0.0-4.0); Hematocrit 37.2 % (39.0-51.0); Hemoglobin 12.2 gm/dL (13.0-17.0); Lymph # (Auto) 0.4 th/mm3 (1.0-4.8); Lymph % (Auto) 3.8 % (9.0-44.0); Mean Corpuscular HGB Conc 32.8 % (32.0-36.0); Mean Corpuscular Hemoglobin 25.6 pg (27.0-34.0); Mean Corpuscular Volume 78.2 fL (80.0-100.0); Mean Platelet Volume 6.2 fL (7.0-11.0); Mono # (Auto) 0.6 th/mm3 (0.0-0.9); Mono % (Auto) 6.2 % (0.0-8.0); Neut # (Auto) 8.7 th/mm3 (1.8-7.7); Neut % (Auto) 89.6 % (16.0-70.0); Platelet Count 253 th/mm3 (150-450); Red Blood Count 4.76 mil/mm3 (4.50-5.90); Red Cell Distribution Width 16.2 % (11.6-17.2); White Blood Count 9.7 th/mm3 (4.0-11.0)
[2018-09-10 09:03] LABS: Anion Gap 9 meq/L (5-15); Blood Urea Nitrogen 31 mg/dL (7-18); Calcium 8.9 mg/dL (8.5-10.1); Chloride 95 meq/L (98-107); Glomerular Filtration Rate Greater Than 89 mL/min (>89); Magnesium 2.4 mg/dL (1.5-2.5); Potassium 3.8 meq/L (3.5-5.1); Sodium 132 meq/L (136-145)
[2018-09-10 09:07] LABS: Glucose,Random 40 mg/dL (74-106)
[2018-09-10 09:46] LABS: Lymphocytes 2 % (9-44); Metamyelocytes 3 % (0-1); Monocytes 5 % (0-8); Myelocytes 1 % (0-0)
[2018-09-10 09:50] LABS: Platelet Estimate Normal (Normal)
[2018-09-10 09:52] LABS: Ovalocytes 1+
[2018-09-10 09:53] LABS: Platelet Morphology Normal (Normal)
[2018-09-10] MEDS: Meloxicam 7.5 MG Tablet PO SCH ×2 (10:29→21:55)
[2018-09-10] MEDS: Senna/Docusate Sodium 8.6/50 MG Tablet PO SCH ×2 (10:29→21:55)
[2018-09-10] MEDS: Ramipril 2.5 MG Capsule PO SCH (10:29)
[2018-09-10] MEDS: oxyCODONE HCL 80 MG Controlled Release Tablet PO SCH ×2 (10:29→21:54)
[2018-09-10] MEDS: dilTIAZem CD 240 MG Capsule PO SCH (10:29)
[2018-09-10] MEDS: Heparin Central Flush 100 UNIT/ML 5 ML Vial IV.FLUSH SCH (10:30)
[2018-09-10] MEDS: Furosemide 20 MG Tablet PO SCH ×2 (10:30→21:55)
[2018-09-10] MEDS: Insulin Detemir Inj 1,000 UNIT/10 ML Vial SQ SCH (10:33)
[2018-09-10] MEDS: Insulin NovoLOG Aspart Correctional Sugar Inj SQ SCH ×4 (10:35→22:35)
--- NOTE | 2018-09-10 10:37 | P.PNIM ---
Subjective Interval history: The patient said that he had a rough night. He wanted to know if the long- acting pain medication could be increased. He said even though he uses the IV Dilaudid here he will not need it at home. He does not feel ready for discharge yet secondary to still being too painful. Physical Exam Vital signs: Vital Signs 09/09/18 12:00 09/09/18 20:00 09/10/18 00:00 Temperature 98.9 F 99.2 F 98.8 F Pulse Rate 93 H 88 89 Respiratory Rate 14 18 20 Blood Pressure 131/65 165/70 H 139/70 Pulse Oximetry 98 99 100 09/10/18 04:00 09/10/18 08:00 Temperature 98.5 F 97.6 F Pulse Rate 97 H 82 Respiratory Rate 18 16 Blood Pressure 136/86 142/67 H Pulse Oximetry 98 100 Intake & Output 09/09/18 09/10/18 09/10/18 18:59 06:59 18:59 Intake Total 200 / 200 200 / 200 Balance 200 / 200 200 / 200 Intake: IV 200 / 200 200 / 200 Tygacil Inj 50 MG In NS Inj 100 100 / 100 100 / 100 ML @ 200 mls/hr IV.SIG Q12H [facility] Rx#:[id number] Mefoxin Inj 2 GM In NS Inj 100 100 / 100 100 / 100 ML @ 100 mls/hr IV.SIG Q8H [facility] Rx#:[id number] Other: Date of Last Bowel Movement 09/07/18 09/08/18 Narrative: GENERAL: NAD. HEAD: Normocephalic. NECK: Supple, trachea midline. No lymphadenopathy. EYES: No scleral icterus. No injection or drainage. CARDIOVASCULAR: Regular rate and rhythm without murmurs, gallops, or rubs. RESPIRATORY: Breath sounds equal bilaterally. No accessory muscle use. GASTROINTESTINAL: Abdomen soft, non-tender, nondistended. MUSCULOSKELETAL: No cyanosis, or edema. Crease range of motion due to pain most significant at right shoulder and back. Left hand is bandaged. SKIN: Warm and dry. NEURO: No focal neurological deficits. Results - Labs CBC & Chem 7: 09/10/18 07:00 09/10/18 07:00 Laboratory Results - last 24 hr 09/09/18 09/09/18 09/09/18 13:33 16:33 20:18 WBC RBC Hgb Hct MCV MCH MCHC RDW Plt Count MPV Prelim Diff (Auto) Neut % (Auto) Lymph % (Auto) [place] % (Auto) Eos % (Auto) Baso % (Auto) Neut # (Auto) Lymph # (Auto) [place] # (Auto) Eos # (Auto) Baso # (Auto) WBC Differential Seg Neuts % (Manual) Band Neuts % (Manual) Lymphocytes % (Manual) Monocytes % (Manual) Metamyelocytes % (Man) Myelocytes % (Man) Abs Neuts (Manual) Differential Comment Platelet Estimate Platelet Morphology Ovalocytes Sodium Potassium Chloride Carbon Dioxide Anion Gap BUN Creatinine Estimated GFR POC Glucose 192 H 200 H 206 H Random Glucose Calcium Magnesium 09/09/18 09/10/18 09/10/18 23:29 07:00 07:00 WBC 9.7 RBC 4.76 Hgb 12.2 L Hct 37.2 L MCV 78.2 L MCH 25.6 L MCHC 32.8 RDW 16.2 Plt Count 253 D MPV 6.2 L Prelim Diff (Auto) Slide review pending Neut % (Auto) 89.6 H Lymph % (Auto) 3.8 L [place] % (Auto) 6.2 Eos % (Auto) 0.1 Baso % (Auto) 0.3 Neut # (Auto) 8.7 H Lymph # (Auto) 0.4 L [place] # (Auto) 0.6 Eos # (Auto) 0.0 Baso # (Auto) 0.0 WBC Differential Manual diff final Seg Neuts % (Manual) 84 H Band Neuts % (Manual) 5 Lymphocytes % (Manual) 2 L Monocytes % (Manual) 5 Metamyelocytes % (Man) 3 H Myelocytes % (Man) 1 H Abs Neuts (Manual) 9.0 H Differential Comment . Platelet Estimate Normal Platelet Morphology Normal Ovalocytes 1+ H Sodium 132 L Potassium 3.8 Chloride 95 L Carbon Dioxide 28.0 Anion Gap 9 BUN 31 H Creatinine 0.68 Estimated GFR Greater than 89 POC Glucose 71 Random Glucose 40 L* Calcium 8.9 Magnesium 2.4 09/10/18 07:40 WBC RBC Hgb Hct MCV MCH MCHC RDW Plt Count MPV Prelim Diff (Auto) Neut % (Auto) Lymph % (Auto) [place] % (Auto) Eos % (Auto) Baso % (Auto) Neut # (Auto) Lymph # (Auto) [place] # (Auto) Eos # (Auto) Baso # (Auto) WBC Differential Seg Neuts % (Manual) Band Neuts % (Manual) Lymphocytes % (Manual) Monocytes % (Manual) Metamyelocytes % (Man) Myelocytes % (Man) Abs Neuts (Manual) Differential Comment Platelet Estimate Platelet Morphology Ovalocytes Sodium Potassium Chloride Carbon Dioxide Anion Gap BUN Creatinine Estimated GFR POC Glucose 119 H Random Glucose Calcium Magnesium - Procedures 08/28 exploration, flexor tenosynovectomy, debridement/excision of the infected/ necrotic flexor digitorum superficialis, left palm/ring finger Assessment and Plan - Plan 58-year-old male with history of HTN, HLD, GERD, A. fib, DM, recent hospitalization for lumbar spine discitis currently on outpatient IV vancomycin via PICC, presents with complaints of back pain, hand pain, and dislodgment of PICC line. Sepsis Resolved Suppurative Tenosynovitis of flexor tendon of left hand Subacute discitis Exacerbated Arthropathy -Hand surgeon following -Continue Biaxin x 8 weeks. -Continue cefoxitin x 8 weeks. -Continue Tygacil (should cover M abscessus as well as pathogens covered by Vanco) x 8 weeks. -PICC placed. -will need outpt follow-up with ID. Pain control The patient is still very painful, has high tolerance to opioids. -continue oxycodone long acting 80 mg BID with 20 mg q4h for pain 5-10 and 1 mg Dilaudid q6h for breakthrough. Wean as tolerated. -continue Mobic 7.5 mg BID. -consider palliative care consult if continues to be too painful to go home. History of Atrial Fibrillation S/P Ablation -Monitor on telemetry -Continue Cardizem -Continue Eliquis Diabetes mellitus type 2/ Hypoglycemia Has been having episodes of hypoglycemia in the AM. -d/c HS insulin. -reduce Levemir to 20 units daily. Adjust as needed. -Insulin sliding scale -Diabetic diet Hypertension -Continue baseline treatment -Follow blood pressures -Adjust treatments as needed DVT Prophylaxis Eliquis Discharge Planning: D/c when pain better controlled. Will need [facility] for antibiotics
[2018-09-10] MEDS ORDERED: WATER IV.SIG SCH ×2 (11:15)
[2018-09-10] MEDS ORDERED: CEFOXITIN IV.SIG SCH ×2 (11:15)
[2018-09-10] MEDS ORDERED: DEXTROSE 5% IV.SIG SCH ×2 (11:15)
[2018-09-10] MEDS: WATER IV.SIG SCH ×2 (17:19)
[2018-09-10] MEDS: DEXTROSE 5% IV.SIG SCH ×2 (17:19)
[2018-09-10] MEDS: CEFOXITIN IV.SIG SCH ×2 (17:19)
[2018-09-10] MEDS: Sodium Chloride 0.9% 2 ML Flush BID IV.FLUSH SCH ×2 (20:33→22:34)
[2018-09-11] MEDS: WATER IV.SIG SCH ×6 (00:41→18:22)
[2018-09-11] MEDS: CEFOXITIN IV.SIG SCH ×6 (00:41→18:22)
[2018-09-11] MEDS: DEXTROSE 5% IV.SIG SCH ×6 (00:41→18:22)
[2018-09-11] MEDS: HYDROmorphone PF Inj 2 MG/ML Vial IV.PUSH PRN ×3 (05:51→18:48)
[2018-09-11] MEDS: dilTIAZem CD 240 MG Capsule PO SCH (09:05)
[2018-09-11] MEDS: Ramipril 2.5 MG Capsule PO SCH (09:05)
[2018-09-11] MEDS: Senna/Docusate Sodium 8.6/50 MG Tablet PO SCH ×2 (09:06→21:48)
[2018-09-11] MEDS: Furosemide 20 MG Tablet PO SCH ×2 (09:07→21:48)
[2018-09-11] MEDS: Heparin Central Flush 100 UNIT/ML 5 ML Vial IV.FLUSH SCH (09:07)
[2018-09-11] MEDS: Meloxicam 7.5 MG Tablet PO SCH ×2 (09:07→21:48)
[2018-09-11] MEDS: Insulin Detemir Inj 1,000 UNIT/10 ML Vial SQ SCH (09:11)
[2018-09-11] MEDS: Sodium Chloride 0.9% 2 ML Flush BID IV.FLUSH SCH ×2 (09:13→21:49)
[2018-09-11] MEDS: Insulin NovoLOG Aspart Correctional Sugar Inj SQ SCH ×4 (09:13→21:57)
[2018-09-11] MEDS: oxyCODONE HCL 80 MG Controlled Release Tablet PO SCH ×2 (09:17→21:48)
--- NOTE | 2018-09-11 17:57 | P.PNIM ---
Subjective Interval history: Patient's chief complaint is pain. He would also like some further investigation into the nature of his recurrent infections and why this causes full body pain. Physical Exam Vital signs: Vital Signs 09/10/18 20:00 09/11/18 00:00 09/11/18 04:00 Temperature 98.4 F 98.9 F 99.2 F Pulse Rate 76 87 93 H Respiratory Rate 18 Blood Pressure 161/67 H 130/57 L 114/63 Pulse Oximetry 100 99 100 09/11/18 08:00 09/11/18 12:00 09/11/18 16:00 Temperature 98.9 F 98.1 F 98.7 F Pulse Rate 84 84 70 Respiratory Rate 17 Blood Pressure 126/65 117/74 108/55 L Pulse Oximetry 99 100 100 Intake & Output 09/10/18 09/11/18 09/11/18 18:59 06:59 18:59 Intake Total 150 / 150 150 / 150 150 / 150 Output Total 930 / 930 Balance 150 / 150 150 / 150 -780 / -780 Weight 89.1 kg Intake: IV 150 / 150 150 / 150 150 / 150 Tygacil Inj 50 MG In NS Inj 100 100 / 100 100 / 100 100 / 100 ML @ 200 mls/hr IV.SIG Q12H [facility] Rx#:[id number] Mefoxin Inj 2 GM In D5W Inj 50 50 / 50 50 / 50 50 / 50 ML @ 100 mls/hr IV.SIG Q8H [facility] Rx#:[id number] Output: Urine 930 / 930 Other: Date of Last Bowel Movement 09/08/18 09/11/18 Narrative: GENERAL: AAOx3, no acute distress, thin SKIN: Warm and dry. No rashes, left hand in gauze wrap HEAD: Atruamtic, normocephalic. EYES: No scleral icterus. No injection or drainage. ENT: Moist mucous membranes, patent nares, no erythema of oropharynx. NECK: Supple, trachea midline. No JVD or lymphadenopathy. Normal thyroid. CARDIOVASCULAR: Regular rate and rhythm. No murmurs, gallops, or rubs. RESPIRATORY: Breath sounds clear equal bilaterally. No crackles or wheezes. No accessory muscle use. GASTROINTESTINAL: Abdomen soft, non-tender, nondistended, normal active bowel sounds MUSCULOSKELETAL: Muscular wasting of hands and upper extremities NEURO: CN II-XII grossly intact, no focal deficits, no slurring of speech Results - Labs CBC & Chem 7: 09/10/18 07:00 09/10/18 07:00 Laboratory Results - last 24 hr 09/10/18 09/11/18 21:54 16:38 POC Glucose 252 H 252 H Microbiology 08/28/18 19:35 Wound - Finger Acid Fast Bacilli Smear - Final No acid fast bacilli seen 08/28/18 19:35 Wound - Finger Mycobacterial Culture - Preliminary No growth in 2 weeks 08/28/18 19:35 Wound - Finger Fungal Smear - Final No fungal elements seen 08/28/18 19:35 Wound - Finger Fungal Culture - Preliminary No growth in 2 weeks - Procedures 08/28 exploration, flexor tenosynovectomy, debridement/excision of the infected/ necrotic flexor digitorum superficialis, left palm/ring finger Assessment and Plan - Plan 58-year-old male with history of HTN, HLD, GERD, A. fib, DM, recent hospitalization for lumbar spine discitis currently on outpatient IV vancomycin via PICC, presents with complaints of back pain, hand pain, and dislodgment of PICC line. Lumbar discitis/osteomyelitis MRI from 08/30/2018 shows epidural abscess causing regional stenosis at L4-L5 with extension beyond vertebral body Neurosurgery recommends conservative management with IV antibiotics, surgery only warranted if causing bladder or extremity symptoms Continuing 8 weeks of Biaxin, Tygacil and cefoxitin PICC line in place Appreciate neurosurgery Appreciate infectious disease Supportive tenosynovitis of flexor tendon of left hand Covered by treatment above Appreciate hand surgery following Pain control Patient's chief complaint is pain, he is not sedated despite the amount of narcotics that he is on, history of high tolerance Continue oxycodone long acting 80 mg BID with 20 mg q4h for pain 5-10 and 1 mg Dilaudid q4h for breakthrough. Wean as tolerated. Continue Mobic 7.5 mg BID. History of Atrial Fibrillation S/P Ablation Continue to monitor with telemetry Continuing Cardizem and Eliquis Diabetes mellitus type 2/ Hypoglycemia Episodes of hypoglycemia have not recurred since Levemir was reduced and nightly dosing was discontinued Continue sliding-scale insulin coverage Continue diabetic diet Hypertension Continue home dose medications DVT Prophylaxis Eliquis Discharge planning Patient will need home health care nursing for IV antibiotic administration
[2018-09-12] MEDS: CEFOXITIN IV.SIG SCH ×6 (00:31→16:03)
[2018-09-12] MEDS: DEXTROSE 5% IV.SIG SCH ×6 (00:31→16:03)
[2018-09-12] MEDS: WATER IV.SIG SCH ×6 (00:31→16:03)
[2018-09-12 05:49] LABS: Anion Gap 8 meq/L (5-15); Blood Urea Nitrogen 35 mg/dL (7-18); Calcium 8.2 mg/dL (8.5-10.1); Carbon Dioxide 25.3 meq/L (21.0-32.0); Chloride 95 meq/L (98-107); Glomerular Filtration Rate Greater Than 89 mL/min (>89); Glucose,Random 229 mg/dL (74-106); Potassium 4.5 meq/L (3.5-5.1); Sodium 128 meq/L (136-145)
[2018-09-12] MEDS: HYDROmorphone PF Inj 2 MG/ML Vial IV.PUSH PRN ×3 (06:52→18:58)
[2018-09-12] MEDS: Insulin NovoLOG Aspart Correctional Sugar Inj SQ SCH ×3 (08:21→20:42)
[2018-09-12] MEDS: Insulin Detemir Inj 1,000 UNIT/10 ML Vial SQ SCH (08:22)
[2018-09-12] MEDS: Ramipril 2.5 MG Capsule PO SCH (08:25)
[2018-09-12] MEDS: dilTIAZem CD 240 MG Capsule PO SCH (08:25)
[2018-09-12] MEDS: Senna/Docusate Sodium 8.6/50 MG Tablet PO SCH ×2 (08:25→20:41)
[2018-09-12] MEDS: Meloxicam 7.5 MG Tablet PO SCH ×2 (08:25→20:41)
[2018-09-12] MEDS: oxyCODONE HCL 80 MG Controlled Release Tablet PO SCH ×2 (08:26→20:42)
[2018-09-12] MEDS: Furosemide 20 MG Tablet PO SCH ×2 (08:26→20:42)
[2018-09-12] MEDS: Heparin Central Flush 100 UNIT/ML 5 ML Vial IV.FLUSH SCH (08:30)
[2018-09-12] MEDS: Sodium Chloride 0.9% 2 ML Flush BID IV.FLUSH SCH ×2 (08:38→20:42)
--- NOTE | 2018-09-12 18:04 | P.PN ---
Subjective Interval history: complains of mild pain and stiffness Physical Exam Vital signs: Vital Signs 09/11/18 19:47 09/12/18 00:00 09/12/18 04:00 Temperature 97.4 F L 99.1 F 98.1 F Pulse Rate 75 91 H 104 H Respiratory Rate 18 17 19 Blood Pressure 116/64 125/58 L 162/70 H Pulse Oximetry 100 99 100 09/12/18 08:00 09/12/18 08:21 09/12/18 12:00 Temperature 99.3 F 98.3 F Pulse Rate 90 86 Respiratory Rate 22 16 24 Blood Pressure 137/72 124/69 Pulse Oximetry 100 100 09/12/18 16:00 Temperature 98.9 F Pulse Rate 70 Respiratory Rate 20 Blood Pressure 123/57 L Pulse Oximetry 100 Intake & Output 09/11/18 09/12/18 09/12/18 18:59 06:59 18:59 Intake Total 870 / 870 150 / 150 150 / 150 Output Total 1430 / 1430 800 / 800 1000 / 1000 Balance -560 / -560 -650 / -650 -850 / -850 Intake: IV 150 / 150 150 / 150 150 / 150 Tygacil Inj 50 MG In NS Inj 100 100 / 100 100 / 100 100 / 100 ML @ 200 mls/hr IV.SIG Q12H [facility] Rx#:[id number] Mefoxin Inj 2 GM In D5W Inj 50 50 / 50 50 / 50 50 / 50 ML @ 100 mls/hr IV.SIG Q8H [facility] Rx#:[id number] Oral 720 / 720 Output: Urine 1430 / 1430 800 / 800 1000 / 1000 Other: Date of Last Bowel Movement 09/11/18 09/11/18 # Bowel Movements 0 Narrative: exam left hand: intact dressing minimal serous drainage wound gaping with exposed tendon noted over 1-2 cm area in the palm/ring finger junction stiffness of the ring finger noted no surrounding swelling or erythema noted Results - Labs CBC & Chem 7: 09/10/18 07:00 09/12/18 05:10 Laboratory Results - last 24 hr 09/11/18 09/12/18 09/12/18 21:48 05:10 07:23 Sodium 128 L Potassium 4.5 Chloride 95 L Carbon Dioxide 25.3 Anion Gap 8 BUN 35 H Creatinine 0.80 Estimated GFR Greater than 89 POC Glucose 251 H 217 H Random Glucose 229 H D Calcium 8.2 L Rheumatoid Factor Scrn Negative Rheumatoid Factor Titer Not Reportable 09/12/18 16:05 Sodium Potassium Chloride Carbon Dioxide Anion Gap BUN Creatinine Estimated GFR POC Glucose 200 H Random Glucose Calcium Rheumatoid Factor Scrn Rheumatoid Factor Titer Microbiology 08/28/18 19:35 Wound - Finger Acid Fast Bacilli Smear - Final No acid fast bacilli seen 08/28/18 19:35 Wound - Finger Mycobacterial Culture - Preliminary No growth in 2 weeks 08/28/18 19:35 Wound - Finger Fungal Smear - Final No fungal elements seen 08/28/18 19:35 Wound - Finger Fungal Culture - Preliminary No growth in 2 weeks - Procedures 08/28 exploration, flexor tenosynovectomy, debridement/excision of the infected/ necrotic flexor digitorum superficialis, left palm/ring finger Assessment and Plan - Assessment (1) Suppurative tenosynovitis of flexor tendon of left hand Code(s): M65.142 - Other infective (teno)synovitis, left hand Status: Chronic - Plan 58 year old male s/p flexor tenosynovectomy, drainage, tendon debridement left palm/ring finger POD 2 Plan: surrounding skin is cleaned with alcohol wipes dry dressing applied held in place with a cling continue with antibiotics based on ID recommendations keep the patient npo after breakfast will take him for wash, closure of wound dehiscence left hand/ring finger on patient is consented for the same.
--- NOTE | 2018-09-12 18:42 | P.PNIM ---
Subjective Interval history: Patient reports overall pattern of increasing low back pain. His last MRI was on 08/30/2018 which showed epidural abscess, follow-up scan was recommended by neurosurgery if pain worsens, which it is. Physical Exam Vital signs: Vital Signs 09/11/18 19:47 09/12/18 00:00 09/12/18 04:00 Temperature 97.4 F L 99.1 F 98.1 F Pulse Rate 75 91 H 104 H Respiratory Rate 17 19 Blood Pressure 116/64 125/58 L 162/70 H Pulse Oximetry 100 99 100 09/12/18 08:00 09/12/18 08:21 09/12/18 12:00 Temperature 99.3 F 98.3 F Pulse Rate 90 86 Respiratory Rate 22 16 24 Blood Pressure 137/72 124/69 Pulse Oximetry 100 100 09/12/18 16:00 Temperature 98.9 F Pulse Rate 70 Respiratory Rate 20 Blood Pressure 123/57 L Pulse Oximetry 100 Intake & Output 09/11/18 09/12/18 09/12/18 18:59 06:59 18:59 Intake Total 870 / 870 150 / 150 150 / 150 Output Total 1430 / 1430 800 / 800 1000 / 1000 Balance -560 / -560 -650 / -650 -850 / -850 Intake: IV 150 / 150 150 / 150 150 / 150 Tygacil Inj 50 MG In NS Inj 100 100 / 100 100 / 100 100 / 100 ML @ 200 mls/hr IV.SIG Q12H ROBBIE Rx#:[id number] Mefoxin Inj 2 GM In D5W Inj 50 50 / 50 50 / 50 50 / 50 ML @ 100 mls/hr IV.SIG Q8H ROBBIE Rx#:[id number] Oral 720 / 720 Output: Urine 1430 / 1430 800 / 800 1000 / 1000 Other: Date of Last Bowel Movement 09/11/18 09/11/18 # Bowel Movements 0 Narrative: GENERAL: AAOx3, no acute distress SKIN: Warm and dry. No rashes, left hand wound is clean dry and intact HEAD: Atruamtic, normocephalic. EYES: No scleral icterus. No injection or drainage. ENT: Moist mucous membranes, patent nares, no erythema of oropharynx. NECK: Supple, trachea midline. No JVD or lymphadenopathy. Normal thyroid. CARDIOVASCULAR: Regular rate and rhythm. No murmurs, gallops, or rubs. RESPIRATORY: Breath sounds clear equal bilaterally. No crackles or wheezes. No accessory muscle use. GASTROINTESTINAL: Abdomen soft, non-tender, nondistended, normal active bowel sounds MUSCULOSKELETAL: No cyanosis, or edema. Muscular wasting of bilateral hands and upper extremities to deltoid line NEURO: CN II-XII grossly intact, no focal deficits, no slurring of speech Results - Labs CBC & Chem 7: 09/10/18 07:00 09/12/18 05:10 Laboratory Results - last 24 hr 09/11/18 09/12/18 09/12/18 21:48 05:10 07:23 Sodium 128 L Potassium 4.5 Chloride 95 L Carbon Dioxide 25.3 Anion Gap 8 BUN 35 H Creatinine 0.80 Estimated GFR Greater than 89 POC Glucose 251 H 217 H Random Glucose 229 H D Calcium 8.2 L Rheumatoid Factor Scrn Negative Rheumatoid Factor Titer Not Reportable 09/12/18 16:05 Sodium Potassium Chloride Carbon Dioxide Anion Gap BUN Creatinine Estimated GFR POC Glucose 200 H Random Glucose Calcium Rheumatoid Factor Scrn Rheumatoid Factor Titer - Procedures 08/28 exploration, flexor tenosynovectomy, debridement/excision of the infected/ necrotic flexor digitorum superficialis, left palm/ring finger Assessment and Plan - Plan 58-year-old male with history of HTN, HLD, GERD, A. fib, DM, recent hospitalization for lumbar spine discitis currently on outpatient IV vancomycin via PICC, presents with complaints of back pain, hand pain, and dislodgment of PICC line. Lumbar discitis/osteomyelitis MRI from 08/30/2018 shows epidural abscess causing regional stenosis at L4-L5 with extension beyond vertebral body Neurosurgery recommends conservative management with IV antibiotics, surgery only warranted if causing bladder or extremity symptoms Continuing 8 weeks of Biaxin, Tygacil and cefoxitin PICC line in place Repeat MRI with and without contrast of the L-spine ordered Appreciate neurosurgery Appreciate infectious disease Muscular wasting of bilateral upper extremities Involving hand and forearms with some biceps and triceps MRI of cervical spine ordered to investigate for nerve impingement Supportive tenosynovitis of flexor tendon of left hand Covered by treatment above Appreciate hand surgery following Pain control Patient's chief complaint is pain, he is not sedated despite the amount of narcotics that he is on, history of high tolerance Continue oxycodone long acting 80 mg BID with 20 mg q4h for pain 5-10 and 1 mg Dilaudid q4h for breakthrough. Wean as tolerated. Continue Mobic 7.5 mg BID. History of Atrial Fibrillation S/P Ablation Continue to monitor with telemetry Continuing Cardizem and Eliquis Diabetes mellitus type 2/ Hypoglycemia Episodes of hypoglycemia have not recurred since Levemir was reduced and nightly dosing was discontinued Continue sliding-scale insulin coverage Continue diabetic diet Hypertension Continue home dose medications DVT Prophylaxis Eliquis Discharge planning Patient will need home health care nursing for IV antibiotic administration
[2018-09-12] MEDS ORDERED: Gadobutrol PF 10 MMOL/10 ML Vial (for RAD) IV.SIG ONE (18:51)
--- NOTE | 2018-09-12 19:20 | MR ---
EXAM DATE: 09/12/2018 12:00 AM EDT AGE/SEX: 58 years / Male INDICATIONS: Pain. Neck arm and leg pain. CLINICAL DATA: This is the patient's initial encounter. Patient reports that signs and symptoms have been present for 1 day and indicates a pain score of 8/10. MEDICAL/SURGICAL HISTORY: Diabetes mellitus type II. Gastroesophageal reflux disease. Hyperte nsion. Atrial fibrillation. . Foot. COMPARISON: No prior exams available for comparison. TECHNIQUE: Multiplanar, multisequence MRI examination of the cervical spine was performed without an d with 9 ml Gadavist (gadobutrol) contrast as a cumulative dose for multiple exams. FINDINGS: Vertebrae: Normal vertebral body height. Homogeneous marrow signal. Alignment: 2 to 3 mm of degenerative-appearing anterolisthesis at C7/T1. Normal alignment otherwise. Cord: Normal configuration and signal. Post Fossa: The cerebellar tonsils are normal in position. Post Contrast: No abnormal areas of enhancement are seen. C2-C3: The disc is desiccated. Slight loss of height. There is mild bilateral uncovertebral and face t osteoarthritis. No foraminal or spinal stenosis. C3-C4: The disc is desiccated. Slight loss of height. Very small, broad posterior disc osteophyte co mplex and mild bilateral uncovertebral and facet osteoarthritis. There is mild spinal stenosis withou t cord compression or cord signal abnormality. There is mild bilateral foraminal stenosis. C4-C5: The disc is desiccated. Slight loss of height. Small, broad posterior disc protrusion and mil d to moderate bilateral uncovertebral and facet osteoarthritis. There is mild to moderate spinal sten osis without cord compression or cord signal abnormality. There is mild right and moderate left rober inal stenosis. C5-C6: The disc is desiccated and has moderate loss of height. There is a small to moderate, broad p osterior disc osteophyte complex and moderate left greater than right uncovertebral and facet osteoar thritis. There is mild to moderate spinal stenosis without cord compression or cord abnormality. Ther e is mild right and moderate to severe left foraminal stenosis. C6-C7: The disc is desiccated and has moderate loss of height. There is a small, broad posterior dis c osteophyte complex and left greater than right uncovertebral and facet osteoarthritis. There is mil d spinal stenosis without cord compression or cord signal abnormality. There is mild to moderate righ t and moderate to severe left foraminal stenosis. C7-T1: The disc is desiccated and has slight loss of height. Grade 1 degenerative-appearing anteroli sthesis. Small, broad posterior disc osteophyte complex and moderate bilateral facet osteoarthritis. There is mild spinal stenosis without cord compression or cord signal abnormality. There is mild to m oderate right and moderate to severe left foraminal stenosis. CONCLUSION: 1. Multilevel cervical spine degenerative changes as detailed above. 2. High-grade, mostly left-sided foraminal stenosis at C5/C6, C6/C7 and C7/T1. 3. Mild to moderate degrees of spinal stenosis at C4/C5 and C5/C6. There is mild spinal stenosis at the other levels except for C2/C3. No cord compression or cord signal abnormality. 4. Grade 1 degenerative-appearing anterolisthesis at C7/T1. 5. No discitis or abscess of the cervical spine. Electronically signed by: Collin Wright MD 09/12/2018 7:18 PM EDT
--- NOTE | 2018-09-12 19:43 | MR ---
EXAM DATE: 09/12/2018 5:31 PM EDT AGE/SEX: 58 years / Male INDICATIONS: Osteomyelitis. Neck arm and leg pain. CLINICAL DATA: This is the patient's sequela encounter. Patient reports that signs and symptoms have been present for 1 week and indicates a pain score of 9/10. MEDICAL/SURGICAL HISTORY: Diabetes mellitus type II. Gastroesophageal reflux disease. Hyperte nsion. Atrial fibrillation. . Foot surgery. COMPARISON: . TECHNIQUE: Multiplanar, multisequence MRI examination of the lumbar spine was performed without and with 9 ml Gadavist (gadobutrol) contrast as a single exam dose. FINDINGS: Near-complete loss of height with enhancement and adjacent endplate destruction again seen of the L4/ L5 intervertebral disc consistent with discitis. There is fluid within the disc space and an approxim ately 15 mm collection along the anterior margin of the intervertebral disc, all not significantly ch anged. There is a large amount of epidural thickening posterior to L4 and L5. On the left, posterior to L4, is a tiny sliver of fluid measuring about 5 x 12 mm in size, series 11 image 8. An approximate ly 3 x 6 mm left paracentral sliver seen at the level of L5 on the same image. There is moderate to s evere spinal stenosis at the L4/L5 level, left lateral recess more severely narrowed than the right, fairly similar to the prior study. Marrow edema with T1 signal changes essentially throughout the L4 and L4-5 vertebral bodies consistent with osteomyelitis. There is also some involvement of the pedicl es and facets, especially on the left of L5. Benign-appearing degenerative disc changes at the other levels not significantly changed and includin g mild, reactive appearing endplate marrow edema at L2/L3. CONCLUSION: Findings of discitis at L4/L5 and with associated small, mostly left paracentral epidura l abscesses is very similar in the interim which would support no active or at least low-grade infect ion/progression. There is osteomyelitis of the L4 and L5 vertebral bodies also not significantly christian ged. No new discitis or new osteomyelitis. Electronically signed by: Collin Wright MD 09/12/2018 7:42 PM EDT
[2018-09-13] MEDS: WATER IV.SIG SCH ×6 (00:14→17:48)
[2018-09-13] MEDS: HYDROmorphone PF Inj 2 MG/ML Vial IV.PUSH PRN ×5 (00:14→18:51)
[2018-09-13] MEDS: DEXTROSE 5% IV.SIG SCH ×6 (00:14→17:48)
[2018-09-13] MEDS: CEFOXITIN IV.SIG SCH ×6 (00:14→17:48)
[2018-09-13] MEDS: dilTIAZem CD 240 MG Capsule PO SCH (08:20)
[2018-09-13] MEDS: Meloxicam 7.5 MG Tablet PO SCH ×2 (08:20→22:04)
[2018-09-13] MEDS: Ramipril 2.5 MG Capsule PO SCH (08:21)
[2018-09-13] MEDS: Furosemide 20 MG Tablet PO SCH ×2 (08:21→22:04)
[2018-09-13] MEDS: oxyCODONE HCL 80 MG Controlled Release Tablet PO SCH ×2 (08:23→22:04)
[2018-09-13] MEDS: Heparin Central Flush 100 UNIT/ML 5 ML Vial IV.FLUSH SCH (08:23)
[2018-09-13] MEDS: Sodium Chloride 0.9% 2 ML Flush BID IV.FLUSH SCH ×2 (08:24→22:04)
[2018-09-13] MEDS: Senna/Docusate Sodium 8.6/50 MG Tablet PO SCH ×2 (08:25→21:13)
[2018-09-13] MEDS ORDERED: MethylPREDNISolone Sod Succinate Inj 125 MG/2 ML Vial IV.PUSH ONE (09:00)
[2018-09-13] MEDS: Insulin Detemir Inj 1,000 UNIT/10 ML Vial SQ SCH (09:34)
[2018-09-13] MEDS: Insulin NovoLOG Aspart Correctional Sugar Inj SQ SCH ×4 (09:35→21:00)
--- NOTE | 2018-09-13 11:32 | P.PNID ---
Subjective Remarks: Patient remains in the hospital because of very severe back pain. Now complaining of problems with urinary control and weakness in the legs. Reports that he cannot walk because of the back pain. Also gets severe back pain depending on how turns in bed. No fever. Due to go for another procedure on the left hand. Reports that a couple stitches broke open. Tolerating current IV antibiotics. Patient is a 58-year-old male, presented to the hospital for further antibiotic treatment. He was recently hospitalized July 18 - August 09 and at that time he was diagnosed to have infection on his left hand. He had undergone surgery, and the culture grew Mycobacterium abscesses. During this hospitalization also he was diagnosed to have discitis in L4. Arrangements were made for him to get his IV antibiotics at home and he was on IV vancomycin , as well as oral Biaxin. Patient stated he had 's choice. Patient stated he was not feeling good, and his PICC line accidentally came out. The PICC line came out August 24. He presented back to the hospital on August 26 for further evaluation and treatment. Infectious disease consultation has been requested. Patient being followed for antibiotics management C/S hand negative. Previous back C/S negative for AFB and fungus Previous hand culture with M abscesses - S to Clarithromycin, Azithromycin, Clofazimine, Tygacil; I - Amikacin, Cefoxitin, Primaxin Antibiotics: Tigecycline Cefoxitin Biaxin Past Medical History: Amputated toe GERD (gastroesophageal reflux disease) Hyperlipidemia Afib Back pain Diabetes Hypertension Osteomyelitis Foot surgery Allergies/Adverse Reactions: Allergies No Known Drug Allergies Allergy (Verified 08/06/18 15:59) none *MDRO Multi-Drug Resistant Organism Adverse Reaction (Unknown, Uncoded 06/16/17 16:34) MRSA MRSA (foot wound) - 02/12/15, 11/12/16, 03/29/17; (toe) - 03/2016 Objective Vital Signs 09/12/18 12:00 09/12/18 16:00 09/12/18 20:00 Temperature 98.3 F 98.9 F 97.6 F Pulse Rate 86 70 72 Respiratory Rate 24 20 18 Blood Pressure 124/69 123/57 L 143/82 H Pulse Oximetry 100 100 100 09/13/18 00:00 09/13/18 04:00 09/13/18 08:00 Temperature 98.3 F 97.8 F 99.4 F Pulse Rate 79 101 H 18 L Respiratory Rate 18 18 18 Blood Pressure 113/59 L 156/86 H 156/66 H Pulse Oximetry 99 98 100 Intake & Output 09/12/18 09/13/18 09/13/18 18:59 06:59 18:59 Intake Total 150 / 150 150 / 150 50 / 50 Output Total 1000 / 1000 650 / 650 Balance -850 / -850 -500 / -500 50 / 50 Intake: IV 150 / 150 150 / 150 50 / 50 Tygacil Inj 50 MG In NS Inj 100 100 / 100 100 / 100 ML @ 200 mls/hr IV.SIG Q12H ROBBIE Rx#:[id number] Mefoxin Inj 2 GM In D5W Inj 50 50 / 50 50 / 50 50 / 50 ML @ 100 mls/hr IV.SIG Q8H ROBBIE Rx#:[id number] Output: Urine 1000 / 1000 650 / 650 Other: # Voids 3 Date of Last Bowel Movement 09/11/18 08/28/18 19:35 Wound - Finger Acid Fast Bacilli Smear - Final No acid fast bacilli seen 08/28/18 19:35 Wound - Finger Mycobacterial Culture - Preliminary No growth in 2 weeks 08/28/18 19:35 Wound - Finger Fungal Smear - Final No fungal elements seen 08/28/18 19:35 Wound - Finger Fungal Culture - Preliminary No growth in 2 weeks Lab - Chemistry Results 09/11/18 09/11/18 09/12/18 16:38 21:48 05:10 Sodium 128 L Potassium 4.5 Chloride 95 L Carbon Dioxide 25.3 Anion Gap 8 BUN 35 H Creatinine 0.80 Estimated GFR Greater than 89 POC Glucose 252 H 251 H Random Glucose 229 H D Calcium 8.2 L 09/12/18 09/12/18 09/12/18 07:23 16:05 20:36 Sodium Potassium Chloride Carbon Dioxide Anion Gap BUN Creatinine Estimated GFR POC Glucose 217 H 200 H 114 H Random Glucose Calcium 09/13/18 08:44 Sodium Potassium Chloride Carbon Dioxide Anion Gap BUN Creatinine Estimated GFR POC Glucose 185 H Random Glucose Calcium Imaging: ITS Impressions Hand X-Ray 08/27/18 02:55 CONCLUSION: 1. Unremarkable radiographs of the left hand. Cervical Spine MRI 09/12/18 00:00 CONCLUSION: 1. Multilevel cervical spine degenerative changes as detailed above. 2. High-grade, mostly left-sided foraminal stenosis at C5/C6, C6/C7 and C7/T1. 3. Mild to moderate degrees of spinal stenosis at C4/C5 and C5/C6. There is mild spinal stenosis at the other levels except for C2/C3. No cord compression or cord signal abnormality. 4. Grade 1 degenerative-appearing anterolisthesis at C7/T1. 5. No discitis or abscess of the cervical spine. Lumbar Spine MRI 09/12/18 00:00 CONCLUSION: Findings of discitis at L4/L5 and with associated small, mostly left paracentral epidural abscesses is very similar in the interim which would support no active or at least low-grade infection/progression. There is osteomyelitis of the L4 and L5 vertebral bodies also not significantly changed. No new discitis or new osteomyelitis. Physical Exam: GENERAL: Alert and oriented, no acute distress. HEENT: Pupils reactive to light. Extraocular movements intact. No icterus. NECK: Supple without adenopathy. No swelling. LUNGS: Clear to auscultation. HEART: Regular S1 and S2. No murmurs heard. ABDOMEN: Bowel sounds present, soft, nontender. EXTREMITIES: Left hand a surgical dressing in place. Sensation intact. SKIN: No diffuse rash. NEUROLOGIC: No gross focal finding. PSYCH: Calm and cooperative. 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 Improved after repeat surgery. L4 discitis/osteomyelitis, probably also due to M abscessus. Recommendation Continue Biaxin x 8 weeks. Continue cefoxitin x 8 weeks. Continue Tygacil (should cover M abscessus as well as pathogens covered by Vanco ) x 8 weeks. Repeat sedimentation rate Monitor progress Patient needs to follow-up with infectious disease physician outpatient to continue plan on treatment and management Can be discharged from ID standpoint. Please make sure patient has prescription for the Biaxin p.o. twice daily when he is discharged. (1) Osteomyelitis Qualifiers: Osteomyelitis location: hand Laterality: left
--- NOTE | 2018-09-13 12:05 | P.PNNS ---
Subjective Interval history: Continued back pain. Repeat MRI obtained yesterday showing stable. No obviously large pocket to drain. No signs of cauda equina syndrome Physical Exam Vital signs: Vital Signs 09/12/18 16:00 09/12/18 20:00 09/13/18 00:00 Temperature 98.9 F 97.6 F 98.3 F Pulse Rate 70 72 79 Respiratory Rate 20 18 18 Blood Pressure 123/57 L 143/82 H 113/59 L Pulse Oximetry 100 100 99 09/13/18 04:00 09/13/18 08:00 Temperature 97.8 F 99.4 F Pulse Rate 101 H 18 L Respiratory Rate 18 18 Blood Pressure 156/86 H 156/66 H Pulse Oximetry 98 100 Intake & Output 09/12/18 09/13/18 09/13/18 18:59 06:59 18:59 Intake Total 150 / 150 150 / 150 50 / 50 Output Total 1000 / 1000 650 / 650 Balance -850 / -850 -500 / -500 50 / 50 Intake: IV 150 / 150 150 / 150 50 / 50 Tygacil Inj 50 MG In NS Inj 100 100 / 100 100 / 100 ML @ 200 mls/hr IV.SIG Q12H ROBBIE Rx#:[id number] Mefoxin Inj 2 GM In D5W Inj 50 50 / 50 50 / 50 50 / 50 ML @ 100 mls/hr IV.SIG Q8H ROBBIE Rx#:[id number] Output: Urine 1000 / 1000 650 / 650 Other: # Voids 3 Date of Last Bowel Movement 09/11/18 Assessment and Plan - Plan 58 y/o male with L4/5 osteomyelitis/discitis with small epidural abscess and severe L4/5 stenosis. He has severe mechanical back pain, but no leg pain or neurologic deficit. His mechanical back pain may be attributed to the erosion of the L4/5 vertebral bodies. This may necessitate instrumentation in the future, however implantation of instrumentation at this point would make it more difficult for the infection to clear, and is therefore not indicated. He has severe lumbar stenosis, but no evidence of neurogenic claudication or symptoms in his legs or bowel/bladder dysfunction, therefore decompression alone is not indicated at this time. Plan: Continue IV antibiotics. Will continue to monitor. An LSO brace (ordered through [facility]) may help with his mechanical back pain. If he develops lower extremity symptoms or bowel/bladder dysfunction, then he may warrant decompression. I have discussed with pt signs and symptoms to watch for and to notify us if this should occur. Monitor senior living following resolution of infection for consideration of instrumentation (lumbar fusion) to resolve mechanical instability contributing to mechanical back pain.
[2018-09-13] MEDS ORDERED: Naloxone Inj 0.4 MG/ML Vial IV.PUSH PRN (17:13)
--- NOTE | 2018-09-13 17:20 | P.PNIM ---
Subjective Interval history: Patient's chief complaint is back pain, he says overall his back pain is worsening. He states that following urination episodes he has leakage which is a new problem to him. Physical Exam Vital signs: Vital Signs 09/12/18 20:00 09/13/18 00:00 09/13/18 04:00 Temperature 97.6 F 98.3 F 97.8 F Pulse Rate 72 79 101 H Respiratory Rate 18 18 18 Blood Pressure 143/82 H 113/59 L 156/86 H Pulse Oximetry 100 99 98 09/13/18 08:00 09/13/18 12:00 Temperature 99.4 F 98.4 F Pulse Rate 18 L 89 Respiratory Rate 18 18 Blood Pressure 156/66 H 174/70 H Pulse Oximetry 100 100 Intake & Output 09/12/18 09/13/18 09/13/18 18:59 06:59 18:59 Intake Total 150 / 150 150 / 150 150 / 150 Output Total 1000 / 1000 650 / 650 Balance -850 / -850 -500 / -500 150 / 150 Intake: IV 150 / 150 150 / 150 150 / 150 Tygacil Inj 50 MG In NS Inj 100 100 / 100 100 / 100 100 / 100 ML @ 200 mls/hr IV.SIG Q12H ROBBIE Rx#:[id number] Mefoxin Inj 2 GM In D5W Inj 50 50 / 50 50 / 50 50 / 50 ML @ 100 mls/hr IV.SIG Q8H ROBBIE Rx#:[id number] Output: Urine 1000 / 1000 650 / 650 Other: # Voids 3 1 # Incontinent Voids 1 # Urine Diapers 1 Date of Last Bowel Movement 09/11/18 Narrative: GENERAL: AAOx3, no acute distress SKIN: Warm and dry. No rashes, left hand wound is clean dry and intact HEAD: Atruamtic, normocephalic. EYES: No scleral icterus. No injection or drainage. ENT: Moist mucous membranes, patent nares, no erythema of oropharynx. NECK: Supple, trachea midline. No JVD or lymphadenopathy. Normal thyroid. CARDIOVASCULAR: Regular rate and rhythm. No murmurs, gallops, or rubs. RESPIRATORY: Breath sounds clear equal bilaterally. No crackles or wheezes. No accessory muscle use. GASTROINTESTINAL: Abdomen soft, non-tender, nondistended, normal active bowel sounds MUSCULOSKELETAL: No cyanosis, or edema. Muscular wasting of bilateral hands and upper extremities to deltoid line NEURO: CN II-XII grossly intact, no focal deficits, no slurring of speech Results - Labs CBC & Chem 7: 09/10/18 07:00 09/12/18 05:10 Laboratory Results - last 24 hr 09/12/18 09/12/18 09/13/18 05:10 20:36 08:44 ESR POC Glucose 114 H 185 H ANDRA Screen Neg 09/13/18 09/13/18 12:35 12:42 ESR 68 H POC Glucose 209 H ANDRA Screen - Imaging Impressions Cervical Spine MRI 09/12/18 00:00 CONCLUSION: 1. Multilevel cervical spine degenerative changes as detailed above. 2. High-grade, mostly left-sided foraminal stenosis at C5/C6, C6/C7 and C7/T1. 3. Mild to moderate degrees of spinal stenosis at C4/C5 and C5/C6. There is mild spinal stenosis at the other levels except for C2/C3. No cord compression or cord signal abnormality. 4. Grade 1 degenerative-appearing anterolisthesis at C7/T1. 5. No discitis or abscess of the cervical spine. Lumbar Spine MRI 09/12/18 00:00 CONCLUSION: Findings of discitis at L4/L5 and with associated small, mostly left paracentral epidural abscesses is very similar in the interim which would support no active or at least low-grade infection/progression. There is osteomyelitis of the L4 and L5 vertebral bodies also not significantly changed. No new discitis or new osteomyelitis. - Procedures 08/28 exploration, flexor tenosynovectomy, debridement/excision of the infected/ necrotic flexor digitorum superficialis, left palm/ring finger Assessment and Plan - Plan 58-year-old male with history of HTN, HLD, GERD, A. fib, DM, recent hospitalization for lumbar spine discitis currently on outpatient IV vancomycin via PICC, presents with complaints of back pain, hand pain, and dislodgment of PICC line. Lumbar discitis/osteomyelitis MRI from 08/30/2018 shows epidural abscess causing regional stenosis at L4-L5 with extension beyond vertebral body Neurosurgery recommends conservative management with IV antibiotics, surgery only warranted if causing bladder or extremity symptoms Continuing 8 weeks of Biaxin, Tygacil and cefoxitin PICC line in place Repeat L spine MRI shows no worsening, no improvement C-spine MRI shows severe stenosis at C7, left canal Neurosurgery recommends a cautious approach, following for evidence of worsening cauda equina syndrome or increasing bladder dysfunction Laminectomy is high risk due to presence of osteomyelitis and possible bone instability, possible need for hardware, presence of infection Appreciate neurosurgery consult Appreciate infectious disease Muscular wasting of bilateral upper extremities Involving hand and forearms with some biceps and triceps MRI of cervical spine ordered to investigate for nerve impingement Supportive tenosynovitis of flexor tendon of left hand Covered by treatment above Hand surgery indicated possible debridement in the OR, possibly today Appreciate hand surgery following Pain control Patient's chief complaint is pain, he is not sedated despite the amount of narcotics that he is on, history of high tolerance Continue oxycodone long acting 80 mg BID with 1 mg Dilaudid q4h for breakthrough. Changed 20 mg of oxycodone to every 4 hours scheduled due to difficulty with timing 3 medication options, Narcan ordered just in case Patient has been unable to wean as his pain has worsened Lidocaine patch ordered for placement onto L-spine Orthotec requested to the liver corset brace for lumbar support and mechanical relief Continue Mobic 7.5 mg BID. History of Atrial Fibrillation S/P Ablation Continue to monitor with telemetry Continuing Cardizem and Eliquis Diabetes mellitus type 2/ Hypoglycemia Episodes of hypoglycemia have not recurred since Levemir was reduced and nightly dosing was discontinued Continue sliding-scale insulin coverage Continue diabetic diet Hypertension Continue home dose medications DVT Prophylaxis Eliquis Discharge planning Patient will need home health care nursing for IV antibiotic administration
[2018-09-13] MEDS: Lidocaine 5% Patch T-DERMAL SCH (17:50)
[2018-09-13] MEDS ORDERED: Lidocaine 2% Inj 50 ML Vial ONE (18:55)
[2018-09-13] MEDS ORDERED: Bupivacaine PF 0.25% Inj 30 ML Vial ONE (18:55)
[2018-09-13] MEDS ORDERED: Neomycin/Polymyxin G.U. Irrigant 1 ML Ampul ONE (19:46)
[2018-09-13] MEDS ORDERED: Sodium Chlor 0.9% Inj 500 ML IV.CONT ONE (19:51)
[2018-09-13] MEDS ORDERED: Lidocaine PF 1% Inj 5 ML Syringe OTHER ONE (19:51)
[2018-09-13] MEDS ORDERED: Succinylcholine Inj 100 MG/5 ML Syringe IV.PUSH ONE (19:51)
[2018-09-13] MEDS ORDERED: Neomycin/Polymyxin G.U. Irrigant 1 ML Ampul IRRIGATION ONE (20:16)
--- NOTE | 2018-09-13 21:00 | P.OP ---
- Preoperative Diagnosis (1) Suppurative tenosynovitis of flexor tendon of left hand Comment: chronic flexor tenosynovitis left palm/ring finger - Postoperative Diagnosis (1) Suppurative tenosynovitis of flexor tendon of left hand Comment: chronic flexor tenosynovitis left palm/ring finger Preoperative Diagnosis: wound dehiscence left palm/ring finger Date of procedure: 09/13/18 Procedure: exploration wash and repair of wound dehiscence left palm/ring finger Anesthesia: GETA Surgeon: Slim Slaughter MD Estimated blood loss (mL): 5 Tourniquet time (min): 31 Pathology: none sent Operation and Findings: wound dehiscence at the junction of ring finger and palm measuring about 2 cm with exposed flexor tendon, another wound in the distal palm measuring 1 cm with exposed tendon inflammatory tissue with the flexor tendon floor of the finger and palm
[2018-09-13] MEDS ORDERED: fentaNYL Citrate Inj 100 MCG/2 ML Ampul ONE (21:07)
[2018-09-13] MEDS ORDERED: *morphine SULFATE 10 MG/ML PERIprocedure ONLY ONE ×2 (21:24→21:39)
--- NOTE | 2018-09-13 21:43 | ECG ---
Date Performed: 09/12/2018 Time Performed: 19:41:34 PTAGE: 58 years EKG: Sinus rhythm WITH FIRST DEGREE AV BLOCK Compared to previous tracing, ND interval slightly longer, otherwise no s ignificant change ABNORMAL ECG PREVIOUS TRACING : 07/18/2018 21.15 DOCTOR: Bean Montoya Interpretating Date/Time 09/13/2018 21:43:13
[2018-09-13] MEDS ORDERED: *HYDROmorphone PF Inj 1 MG/ML Ampul PERIprocedural Use ONLY ONE (21:44)
--- NOTE | 2018-09-13 22:00 | MP ---
cc: Slim Slaughter MD DATE OF OPERATION: 09/13/2018 PREOPERATIVE DIAGNOSIS: Suppurative tenosynovitis of flexor tendon, left hand/ring finger, with wound dehiscence. POSTOPERATIVE DIAGNOSIS: Suppurative tenosynovitis of flexor tendon, left hand/ring finger, with wound dehiscence. PROCEDURE PERFORMED: Exploration, wash, repair of wound dehiscence, left palm/ring finger. SURGEON: Slim Slaughter MD ANESTHESIA: General. ESTIMATED BLOOD LOSS: 5 mL. TOURNIQUET TIME: 31 minutes at 250 mmHg. DISPOSITION: To PACU stable. INDICATIONS: The patient is a 58-year-old male with chronic flexor tenosynovitis of the left forearm/ring finger, status post wash and debridement about 2 weeks ago, who was noted to have dehiscence of the wound with exposed tendon at the junction of the finger and the palm yesterday and was posted for wash and closure or repair of the wound dehiscence. The patient was explained the risks and benefits of the procedure. DESCRIPTION OF PROCEDURE: The patient was brought to the operating room. Under general anesthesia, the left upper extremity was sterilely prepped and draped. After limb elevation, the tourniquet was inflated to 250 mmHg. The dehisced wound was exposed and explored. There was extensive inflammatory tissue underneath flexor tendon and over the proximal phalanx region. There were 2 areas of wound dehiscence, one at the junction of the finger and the palm measuring about 2 cm and one in the distal palm measuring about 1 cm with exposed flexor tendon. Excisional debridement of inflammatory tissue was carried out. The tendon appeared to be intact and viable. A thorough wash was given using normal saline mixed with hydrogen peroxide. This was then followed by normal saline mixed with irrigant. Following this, the skin and subcutaneous flaps were mobilized over the flexor tendon and I was able to approximate the flap of skin with multiple 4-0 nylon stitches in a horizontal mattress interrupted fashion. A bulky hand dressing was applied. This was held in place by Sof-Rol and bias hand wrap. The tourniquet was deflated at 31 minutes. He had good distal circulation noted on release of the tourniquet. The patient was recovered and sent to the recovery room in stable condition. We will continue with limb elevation, continue with antibiotics based on ID recommendations and hand surgery will follow. MD Anthony Palacio , 09:05 PM , 09:14 PM
[2018-09-14] MEDS: HYDROmorphone PF Inj 2 MG/ML Vial IV.PUSH PRN ×6 (00:31→22:19)
[2018-09-14] MEDS: DEXTROSE 5% IV.SIG SCH ×6 (02:07→18:22)
[2018-09-14] MEDS: WATER IV.SIG SCH ×6 (02:07→18:22)
[2018-09-14] MEDS: CEFOXITIN IV.SIG SCH ×6 (02:07→18:22)
[2018-09-14] MEDS: Heparin Central Flush 100 UNIT/ML 5 ML Vial IV.FLUSH SCH (09:10)
[2018-09-14] MEDS: dilTIAZem CD 240 MG Capsule PO SCH (09:10)
[2018-09-14] MEDS: oxyCODONE HCL 80 MG Controlled Release Tablet PO SCH ×2 (09:10→21:00)
[2018-09-14] MEDS: Meloxicam 7.5 MG Tablet PO SCH ×2 (09:11→21:01)
[2018-09-14] MEDS: Insulin Detemir Inj 1,000 UNIT/10 ML Vial SQ SCH ×2 (09:12→22:22)
[2018-09-14] MEDS: Ramipril 2.5 MG Capsule PO SCH (09:12)
[2018-09-14] MEDS: Senna/Docusate Sodium 8.6/50 MG Tablet PO SCH ×2 (09:12→21:00)
[2018-09-14] MEDS: Furosemide 20 MG Tablet PO SCH ×2 (09:12→21:01)
[2018-09-14] MEDS: Insulin NovoLOG Aspart Correctional Sugar Inj SQ SCH ×4 (09:12→22:21)
[2018-09-14] MEDS: Sodium Chloride 0.9% 2 ML Flush BID IV.FLUSH SCH ×2 (09:13→21:02)
[2018-09-14] MEDS: Lidocaine 5% Patch T-DERMAL SCH (09:13)
--- NOTE | 2018-09-14 13:57 | P.PN ---
Subjective Interval history: Patient doing well overnight. Reports he is tolerating p.o., voiding/stooling well. No concerns. Physical Exam Vital signs: Vital Signs 09/13/18 16:00 09/13/18 19:20 09/13/18 20:58 Temperature 97.2 F L 97.6 F Pulse Rate 72 58 L 53 L Respiratory Rate 20 18 12 Blood Pressure 144/63 H 148/61 H 117/67 Pulse Oximetry 100 100 97 09/13/18 21:19 09/13/18 21:28 09/13/18 21:30 Temperature 97.4 F L Pulse Rate 54 L 57 L Respiratory Rate 10 L 20 23 Blood Pressure 123/69 153/71 H Pulse Oximetry 100 100 09/13/18 21:45 09/13/18 21:46 09/13/18 22:00 Temperature Pulse Rate 54 L 61 Respiratory Rate 20 12 20 Blood Pressure 155/76 H 108/60 Pulse Oximetry 100 100 09/13/18 22:12 09/14/18 00:00 09/14/18 02:49 Temperature 97.8 F Pulse Rate 54 L 74 Respiratory Rate 18 18 Blood Pressure 114/64 Pulse Oximetry 100 100 09/14/18 04:00 09/14/18 08:00 09/14/18 10:46 Temperature 97.8 F 97.8 F Pulse Rate 68 75 Respiratory Rate 21 18 18 Blood Pressure 145/60 H 123/60 Pulse Oximetry 98 100 09/14/18 12:00 Temperature 97.3 F L Pulse Rate 84 Respiratory Rate 18 Blood Pressure 111/58 L Pulse Oximetry 100 Intake & Output 09/13/18 09/14/18 09/14/18 18:59 06:59 18:59 Intake Total 200 / 200 1550 / 1550 150 / 150 Output Total 10 / 10 Balance 200 / 200 1540 / 1540 150 / 150 Intake: IV 200 / 200 150 / 150 150 / 150 Tygacil Inj 50 MG In NS Inj 100 100 / 100 100 / 100 100 / 100 ML @ 200 mls/hr IV.SIG Q12H ROBBIE Rx#:[id number] Mefoxin Inj 2 GM In D5W Inj 50 100 / 100 50 / 50 50 / 50 ML @ 100 mls/hr IV.SIG Q8H ROBBIE Rx#:[id number] Oral 1000 / 1000 Anesthesia Amount 400 / 400 Output: Estimated Blood Loss 10 / 10 Other: # Voids 1 4 # Incontinent Voids 1 # Urine Diapers 1 Date of Last Bowel Movement 09/13/18 09/13/18 09/13/18 Narrative: GENERAL: Well-nourished male, no acute distress, lying comfortably in SKIN: Warm and dry. Left hand dressing C/D/I. HEAD: Normocephalic. EYES: No scleral icterus. No injection or drainage. NECK: Supple, trachea midline. No JVD or lymphadenopathy. CARDIOVASCULAR: Regular rate and rhythm without murmurs, gallops, or rubs. RESPIRATORY: Breath sounds equal bilaterally. No accessory muscle use. GASTROINTESTINAL: Abdomen soft, non-tender, nondistended. MUSCULOSKELETAL: No cyanosis, or edema. BACK: Nontender without obvious deformity. No CVA tenderness. NEURO: AAO x3, no focal deficits. Results - Labs CBC & Chem 7: 09/10/18 07:00 09/12/18 05:10 Laboratory Results - last 24 hr 09/13/18 09/13/18 09/14/18 17:20 22:07 08:39 POC Glucose 191 H 184 H 438 H 09/14/18 12:59 POC Glucose 452 H* - Procedures 08/28 exploration, flexor tenosynovectomy, debridement/excision of the infected/ necrotic flexor digitorum superficialis, left palm/ring finger Assessment and Plan - Assessment (1) Osteomyelitis Code(s): M86.9 - Osteomyelitis, unspecified Status: Acute (2) Diabetes Code(s): E11.9 - Type 2 diabetes mellitus without complications Status: Chronic (3) Hyponatremia Code(s): E87.1 - Hypo-osmolality and hyponatremia Status: Acute (4) Suppurative tenosynovitis of flexor tendon of left hand Code(s): M65.142 - Other infective (teno)synovitis, left hand Status: Chronic - Plan This is a 58-year-old CM with PMHx of HTN, HLD, GERD, A. fib, and DM, with recent hospitalization for lumbar spine discitis currently on outpatient IV vancomycin via PICC, presents with complaints of back pain, hand pain, and dislodgment of PICC line. Dx with OM now on ABX also now s/p Exploration, wash, repair of wound dehiscence, left palm/ring finger on 09/13, POD#1, HD#19 1. Lumbar Discitis/Osteomyelitis MRI from 08/30/2018 shows epidural abscess causing regional stenosis at L4-L5 with extension beyond vertebral body Neurosurgery recommends conservative management with IV antibiotics, surgery only warranted if causing bladder or extremity symptoms Continuing 8 weeks of Biaxin started on 08/27, Tygacil started on 09/03, and Cefoxitin started 09/[address] Repeat L spine MRI shows no worsening, no improvement C-spine MRI shows severe stenosis at C7, left canal Neurosurgery recommends a cautious approach, following for evidence of worsening cauda equina syndrome or increasing bladder dysfunction Laminectomy is high risk due to presence of osteomyelitis and possible bone instability, possible need for hardware, presence of infection Appreciate neurosurgery consult Appreciate infectious disease 2. Supportive tenosynovitis of flexor tendon of left hand s/p Exploration, wash, repair of wound dehiscence, left palm/ring finger on Cont. ABX as above Appreciate hand surgery following 3. Chronic Pain Patient's chief complaint is pain, he is not sedated despite the amount of narcotics that he is on, history of high tolerance Continue oxycodone long acting 80 mg BID with 1 mg Dilaudid q4h for breakthrough , and Oxycodone 20mg Q4hrs Narcan ordered just in case Patient has been unable to wean as his pain has worsened Lidocaine patch ordered for placement onto L-spine Orthotec requested for corset brace for lumbar support and mechanical relief Continue Mobic 7.5 mg BID 4. History of Atrial Fibrillation S/P Ablation Continue to monitor with telemetry Continuing Cardizem and Eliquis 5. Diabetes Mellitus Type 2 Blood sugars elevated at 452, 438, and 184 Continue sliding-scale insulin coverage Continue diabetic diet Inc. Detemir to 25 units twice daily 6. Hypertension Continue home Dilt, Rampril, and Lasix 7. Hyponatremia Na 128 on 09/12 Checking stat BMP now Follow-up in AM 8. GI/DVT Prophylaxis: Eliquis and PPI 9. 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
[2018-09-14 17:46] LABS: Calcium 8.6 mg/dL (8.5-10.1); Carbon Dioxide 24.5 meq/L (21.0-32.0); Potassium 4.7 meq/L (3.5-5.1)
[2018-09-15] MEDS: WATER IV.SIG SCH ×6 (02:13→18:18)
[2018-09-15] MEDS: HYDROmorphone PF Inj 2 MG/ML Vial IV.PUSH PRN ×6 (02:13→22:10)
[2018-09-15] MEDS: CEFOXITIN IV.SIG SCH ×6 (02:13→18:18)
[2018-09-15] MEDS: DEXTROSE 5% IV.SIG SCH ×6 (02:13→18:18)
[2018-09-15 07:23] LABS: Baso % (Auto) 0.2 % (0.0-2.0); Eos % (Auto) 0.3 % (0.0-4.0); Hemoglobin 9.2 gm/dL (13.0-17.0); Lymph # (Auto) 1.7 th/mm3 (1.0-4.8); Lymph % (Auto) 12.3 % (9.0-44.0); Mean Corpuscular HGB Conc 35.1 % (32.0-36.0); Mean Corpuscular Hemoglobin 26.9 pg (27.0-34.0); Mean Corpuscular Volume 76.6 fL (80.0-100.0); Mean Platelet Volume 6.5 fL (7.0-11.0); Mono % (Auto) 7.5 % (0.0-8.0); Neut # (Auto) 10.7 th/mm3 (1.8-7.7); Neut % (Auto) 79.7 % (16.0-70.0); Platelet Count 393 th/mm3 (150-450); Red Cell Distribution Width 16.3 % (11.6-17.2); White Blood Count 13.5 th/mm3 (4.0-11.0)
[2018-09-15 07:43] LABS: Alanine Aminotransferase 22 U/L (12-78); Albumin 2.3 g/dL (3.4-5.0); Alkaline Phosphatase 173 U/L (45-117); Anion Gap 8 meq/L (5-15); Aspartate Aminotransferase 18 U/L (15-37); Blood Urea Nitrogen 51 mg/dL (7-18); Calcium 8.2 mg/dL (8.5-10.1); Carbon Dioxide 24.8 meq/L (21.0-32.0); Chloride 105 meq/L (98-107); Glomerular Filtration Rate 89 mL/min (>89); Glucose,Random 150 mg/dL (74-106); Potassium 4.3 meq/L (3.5-5.1); Sodium 138 meq/L (136-145); Total Protein 6.8 g/dL (6.4-8.2)
[2018-09-15] MEDS: oxyCODONE HCL 80 MG Controlled Release Tablet PO SCH ×2 (09:28→22:05)
[2018-09-15] MEDS: Ramipril 2.5 MG Capsule PO SCH (09:28)
[2018-09-15] MEDS: Senna/Docusate Sodium 8.6/50 MG Tablet PO SCH ×2 (09:28→22:03)
[2018-09-15] MEDS: dilTIAZem CD 240 MG Capsule PO SCH (09:28)
[2018-09-15] MEDS: Heparin Central Flush 100 UNIT/ML 5 ML Vial IV.FLUSH SCH (09:29)
[2018-09-15] MEDS: Insulin NovoLOG Aspart Correctional Sugar Inj SQ SCH ×4 (09:29→22:04)
[2018-09-15] MEDS: Lidocaine 5% Patch T-DERMAL SCH (09:29)
[2018-09-15] MEDS: Furosemide 20 MG Tablet PO SCH ×2 (09:29→22:03)
[2018-09-15] MEDS: Insulin Detemir Inj 1,000 UNIT/10 ML Vial SQ SCH ×2 (09:30→22:04)
[2018-09-15] MEDS: Sodium Chloride 0.9% 2 ML Flush BID IV.FLUSH SCH ×2 (09:41→22:05)
--- NOTE | 2018-09-15 12:16 | P.PN ---
Subjective Interval history: Patient doing well, reports pain well controlled. Patient is tolerating p.o., voiding/stooling well. No overnight concerns. Physical Exam Vital signs: Vital Signs 09/14/18 16:00 09/14/18 18:46 09/14/18 18:47 Temperature 97.4 F L Pulse Rate 72 Respiratory Rate 18 18 18 Blood Pressure 112/58 L Pulse Oximetry 100 09/14/18 20:00 09/15/18 00:00 09/15/18 04:00 Temperature 97.6 F 97.2 F L 97.7 F Pulse Rate 66 66 91 H Respiratory Rate 16 16 18 Blood Pressure 121/62 119/57 L 143/65 H Pulse Oximetry 100 100 97 09/15/18 08:00 09/15/18 11:59 09/15/18 12:00 Temperature 97.5 F L 97.9 F Pulse Rate 82 89 Respiratory Rate 18 18 18 Blood Pressure 117/56 L 132/61 Pulse Oximetry 97 100 Intake & Output 09/14/18 09/15/18 09/15/18 18:59 06:59 18:59 Intake Total 150 / 150 1950 / 1950 50 / 50 Output Total 1550 / 1550 Balance 150 / 150 400 / 400 50 / 50 Weight 88.8 kg Intake: IV 150 / 150 200 / 200 50 / 50 Tygacil Inj 50 MG In NS Inj 100 100 / 100 100 / 100 ML @ 200 mls/hr IV.SIG Q12H ROBBIE Rx#:[id number] Mefoxin Inj 2 GM In D5W Inj 50 50 / 50 100 / 100 50 / 50 ML @ 100 mls/hr IV.SIG Q8H ROBBIE Rx#:[id number] Oral 1750 / 1750 Output: Urine 1550 / 1550 Other: # Voids 4 Date of Last Bowel Movement 09/13/18 09/13/18 09/13/18 Narrative: GENERAL: Well-nourished male, no acute distress, lying comfortably in SKIN: Warm and dry. Left hand dressing C/D/I. HEAD: Normocephalic. EYES: No scleral icterus. No injection or drainage. NECK: Supple, trachea midline. No JVD or lymphadenopathy. CARDIOVASCULAR: Regular rate and rhythm without murmurs, gallops, or rubs. RESPIRATORY: Breath sounds equal bilaterally. No accessory muscle use. GASTROINTESTINAL: Abdomen soft, non-tender, nondistended. MUSCULOSKELETAL: No cyanosis, or edema. BACK: Nontender without obvious deformity. No CVA tenderness. NEURO: AAO x3, no focal deficits. Results - Labs CBC & Chem 7: 09/15/18 06:30 09/15/18 06:30 Laboratory Results - last 24 hr 09/14/18 09/14/18 09/14/18 12:59 15:59 17:32 WBC RBC Hgb Hct MCV MCH MCHC RDW Plt Count MPV Neut % (Auto) Lymph % (Auto) [place] % (Auto) Eos % (Auto) Baso % (Auto) Neut # (Auto) Lymph # (Auto) [place] # (Auto) Eos # (Auto) Baso # (Auto) WBC Differential Differential Comment Sodium 129 L Potassium 4.7 Chloride 97 L Carbon Dioxide 24.5 Anion Gap 8 BUN 52 H Creatinine 0.92 Estimated GFR 84 L POC Glucose 452 H* 241 H Random Glucose 268 H Calcium 8.6 Total Bilirubin AST ALT Alkaline Phosphatase Total Protein Albumin 09/14/18 09/15/18 09/15/18 21:04 06:30 06:30 WBC 13.5 H RBC 3.40 L Hgb 9.2 L Hct 26.0 L MCV 76.6 L MCH 26.9 L MCHC 35.1 RDW 16.3 Plt Count 393 D MPV 6.5 L Neut % (Auto) 79.7 H Lymph % (Auto) 12.3 [place] % (Auto) 7.5 Eos % (Auto) 0.3 Baso % (Auto) 0.2 Neut # (Auto) 10.7 H Lymph # (Auto) 1.7 [place] # (Auto) 1.0 H Eos # (Auto) 0.0 Baso # (Auto) 0.0 WBC Differential . Differential Comment Auto diff final Sodium 138 Potassium 4.3 Chloride 105 D Carbon Dioxide 24.8 Anion Gap 8 BUN 51 H Creatinine 0.88 Estimated GFR 89 POC Glucose 154 H Random Glucose 150 H D Calcium 8.2 L Total Bilirubin 0.1 L AST 18 ALT 22 Alkaline Phosphatase 173 H Total Protein 6.8 Albumin 2.3 L 09/15/18 07:32 WBC RBC Hgb Hct MCV MCH MCHC RDW Plt Count MPV Neut % (Auto) Lymph % (Auto) [place] % (Auto) Eos % (Auto) Baso % (Auto) Neut # (Auto) Lymph # (Auto) [place] # (Auto) Eos # (Auto) Baso # (Auto) WBC Differential Differential Comment Sodium Potassium Chloride Carbon Dioxide Anion Gap BUN Creatinine Estimated GFR POC Glucose 229 H Random Glucose Calcium Total Bilirubin AST ALT Alkaline Phosphatase Total Protein Albumin - Procedures 08/28 exploration, flexor tenosynovectomy, debridement/excision of the infected/ necrotic flexor digitorum superficialis, left palm/ring finger Assessment and Plan - Assessment (1) Osteomyelitis Code(s): M86.9 - Osteomyelitis, unspecified Status: Acute (2) Diabetes Code(s): E11.9 - Type 2 diabetes mellitus without complications Status: Chronic (3) Hyponatremia Code(s): E87.1 - Hypo-osmolality and hyponatremia Status: Acute (4) Suppurative tenosynovitis of flexor tendon of left hand Code(s): M65.142 - Other infective (teno)synovitis, left hand Status: Chronic - Plan This is a 58-year-old CM with PMHx of HTN, HLD, GERD, A. fib, and DM, with recent hospitalization for lumbar spine discitis currently on outpatient IV vancomycin via PICC, presents with complaints of back pain, hand pain, and dislodgment of PICC line. Dx with OM now on ABX also now s/p Exploration, wash, repair of wound dehiscence, left palm/ring finger on 09/13, POD#2, HD#20 1. Lumbar Discitis/Osteomyelitis MRI from 08/30/2018 shows epidural abscess causing regional stenosis at L4-L5 with extension beyond vertebral body Neurosurgery recommends conservative management with IV antibiotics, surgery only warranted if causing bladder or extremity symptoms Continuing 8 weeks of Biaxin started on 08/27, Tygacil started on 09/03, and Cefoxitin started 09/[address] Repeat L spine MRI shows no worsening, no improvement C-spine MRI shows severe stenosis at C7, left canal Neurosurgery recommends a cautious approach, following for evidence of worsening cauda equina syndrome or increasing bladder dysfunction Laminectomy is high risk due to presence of osteomyelitis and possible bone instability, possible need for hardware, presence of infection Appreciate neurosurgery consult Appreciate infectious disease 2. Supportive tenosynovitis of flexor tendon of left hand s/p Exploration, wash, repair of wound dehiscence, left palm/ring finger on Cont. ABX as above Appreciate hand surgery following 3. Chronic Pain Patient's chief complaint is pain, he is not sedated despite the amount of narcotics that he is on, history of high tolerance Continue oxycodone long acting 80 mg BID with 1 mg Dilaudid q4h for breakthrough , and Oxycodone 20mg Q4hrs Narcan ordered just in case Patient has been unable to wean as his pain has worsened Lidocaine patch ordered for placement onto L-spine Orthotec requested for corset brace for lumbar support and mechanical relief Continue Mobic 7.5 mg BID 4. History of Atrial Fibrillation S/P Ablation Continue to monitor with telemetry Continuing Cardizem and Eliquis 5. Diabetes Mellitus Type 2, improving Blood sugars elevated at 241, 229, and 154 Continue sliding-scale insulin coverage Continue diabetic diet Cont. Detemir 25 units BID 6. Hypertension Continue home Dilt, Rampril, and Lasix 7. Anemia Hemoglobin 9.2 from 12.2 likely hemo-dilutional Follow-up in a.m. 8. Leukocytosis WBC 13.5 today from 9.7 previously Will check chest x-ray, UA and repeat blood cultures 9. GI/DVT Prophylaxis: Eliquis and PPI 10. Dispo: will need home health care nursing at D/C for IV antibiotics, F/U hand sx reccs Code Status: full Discussed Condition With: patient, RN (1) Osteomyelitis Qualifiers: Osteomyelitis location: hand Laterality: left (2) Diabetes Qualifiers: Diabetes mellitus type: type 2 Diabetes mellitus care home insulin use: with terminal worker use Diabetes mellitus complication status: with unspecified complications Qualified Code(s): E11.8 - Type 2 diabetes mellitus with unspecified complications; Z79.4 - senior living (current) use of insulin
--- NOTE | 2018-09-15 12:56 | XR ---
EXAM DATE: 09/15/2018 12:00 AM EDT AGE/SEX: 58 years / Male INDICATIONS: Cellulitis CLINICAL DATA: This is the patient's initial encounter. Patient reports that signs and symptoms have been present for 1 day and indicates a pain score of 0/10. MEDICAL/SURGICAL HISTORY: . Diabetes mellitus type II. Gastroesophageal reflux disease. Hyperte nsion. Atrial fibrillation. . . COMPARISON: [facility] [place]ST 1V SINGLE AP, 07/22/2018. . FINDINGS: A single AP view of the chest demonstrates the lungs to be symmetrically aerated without evidence of mass, infiltrate or effusion. The cardiomediastinal contours are unremarkable. Osseous structures a re intact. There has been interval placement of a right-sided PICC line. The tip is projected over th e superior vena cava. There is no pneumothorax. CONCLUSION: Interval placement of right-sided PICC line with no acute cardiopulmonary disease. Electronically signed by: Jose Maria MD 09/15/2018 12:55 PM EDT
[2018-09-15] MEDS: Meloxicam 7.5 MG Tablet PO SCH ×2 (13:45→22:04)
[2018-09-15 21:44] LABS: Bacteria,Urine Rare /hpf; Bilirubin,Urine Negative (Negative); Clarity,Urine Clear (Clear); Color,Urine Yellow (Yellw/Straw); Glucose,Urine (UA) Negative (Negative); Leukocyte Esterase,Urine Small (Negative); Mucus,Urine Few /lpf (Occasional); Nitrite,Urine Negative (Negative); Specific Gravity,Urine 1.011 (1.002-1.035)
[2018-09-16] MEDS: HYDROmorphone PF Inj 2 MG/ML Vial IV.PUSH PRN ×4 (02:56→21:30)
[2018-09-16] MEDS: DEXTROSE 5% IV.SIG SCH ×6 (03:09→18:14)
[2018-09-16] MEDS: WATER IV.SIG SCH ×6 (03:09→18:14)
[2018-09-16] MEDS: CEFOXITIN IV.SIG SCH ×6 (03:09→18:14)
[2018-09-16] MEDS: Insulin Detemir Inj 1,000 UNIT/10 ML Vial SQ SCH ×2 (08:00→22:25)
[2018-09-16] MEDS: Insulin NovoLOG Aspart Correctional Sugar Inj SQ SCH ×4 (08:00→22:26)
[2018-09-16] MEDS: Dextrose 50% in Water 50 ML Vial IV.PUSH PRN (08:15)
[2018-09-16] MEDS: Meloxicam 7.5 MG Tablet PO SCH ×2 (10:18→22:07)
[2018-09-16] MEDS: Ramipril 2.5 MG Capsule PO SCH (10:18)
[2018-09-16] MEDS: oxyCODONE HCL 80 MG Controlled Release Tablet PO SCH ×2 (10:18→22:06)
[2018-09-16] MEDS: Heparin Central Flush 100 UNIT/ML 5 ML Vial IV.FLUSH SCH (10:18)
[2018-09-16] MEDS: Senna/Docusate Sodium 8.6/50 MG Tablet PO SCH ×2 (10:18→22:07)
[2018-09-16] MEDS: Furosemide 20 MG Tablet PO SCH ×2 (10:19→22:06)
[2018-09-16] MEDS: dilTIAZem CD 240 MG Capsule PO SCH (10:19)
[2018-09-16] MEDS: Sodium Chloride 0.9% 2 ML Flush BID IV.FLUSH SCH ×2 (10:20→22:07)
[2018-09-16] MEDS: Lidocaine 5% Patch T-DERMAL SCH (10:20)
--- NOTE | 2018-09-16 10:52 | XR ---
EXAM DATE: 09/16/2018 12:00 AM EDT AGE/SEX: 58 years / Male INDICATIONS: Evaluate picc line placement. CLINICAL DATA: This is the patient's initial encounter. Patient reports that signs and symptoms have been present for 1 day and indicates a pain score of 0/10. MEDICAL/SURGICAL HISTORY: . Diabetes mellitus type II. Gastroesophageal reflux disease. Hyperte nsion. Atrial fibrillation None. [place]PAR[place]: [facility] [place]. . FINDINGS: A single AP view of the chest demonstrates the lungs to be symmetrically aerated without evidence of mass, infiltrate or effusion. There is a right-sided PICC line in place. This is unchanged in positio n compared to the prior study. There is no evidence of pneumothorax. The tip of the PICC line appears to be projected over the SVC. The cardiomediastinal contours are unremarkable and stable. Osseous structures are intact and stable. CONCLUSION: 1. Right-sided PICC line in place which appears to be unchanged in position compared to the prior [facility]. The tip is overlying the mid SVC. 2. No new or acute intrathoracic disease.. Electronically signed by: Delfin Carroll MD 09/16/2018 10:51 AM EDT
[2018-09-16 13:21] LABS: Baso % (Auto) 0.1 % (0.0-2.0); Hematocrit 32.1 % (39.0-51.0); Hemoglobin 10.6 gm/dL (13.0-17.0); Lymph # (Auto) 1.2 th/mm3 (1.0-4.8); Lymph % (Auto) 7.3 % (9.0-44.0); Mean Corpuscular Hemoglobin 25.4 pg (27.0-34.0); Mean Corpuscular Volume 76.9 fL (80.0-100.0); Mean Platelet Volume 6.3 fL (7.0-11.0); Mono # (Auto) 1.2 th/mm3 (0.0-0.9); Mono % (Auto) 7.2 % (0.0-8.0); Neut # (Auto) 14.4 th/mm3 (1.8-7.7); Neut % (Auto) 85.4 % (16.0-70.0); Platelet Count 427 th/mm3 (150-450); Red Blood Count 4.17 mil/mm3 (4.50-5.90); Red Cell Distribution Width 16.8 % (11.6-17.2); White Blood Count 16.8 th/mm3 (4.0-11.0)
[2018-09-16 13:58] LABS: Alanine Aminotransferase 22 U/L (12-78); Albumin 2.7 g/dL (3.4-5.0); Alkaline Phosphatase 174 U/L (45-117); Anion Gap 8 meq/L (5-15); Aspartate Aminotransferase 15 U/L (15-37); Blood Urea Nitrogen 29 mg/dL (7-18); Calcium 9.1 mg/dL (8.5-10.1); Carbon Dioxide 28.6 meq/L (21.0-32.0); Chloride 95 meq/L (98-107); Glomerular Filtration Rate Greater Than 89 mL/min (>89); Glucose,Random 148 mg/dL (74-106); Potassium 4.1 meq/L (3.5-5.1); Sodium 132 meq/L (136-145)
[2018-09-16 14:06] LABS: Lymphocytes 9 % (9-44); Monocytes 12 % (0-8); Myelocytes 1 % (0-0)
[2018-09-16 14:07] LABS: Platelet Estimate Normal (Normal); Platelet Morphology Normal (Normal)
--- NOTE | 2018-09-16 15:25 | P.PN ---
Subjective Interval history: Patient doing well, has no current concerns. No new events per RN. Patient reports pain well controlled with meds, patient is tolerating p.o. voiding/ stooling well. Physical Exam Vital signs: Vital Signs 09/15/18 16:00 09/15/18 20:00 09/16/18 00:00 Temperature 97.7 F 98.2 F 98.1 F Pulse Rate 78 80 106 H Respiratory Rate 18 18 18 Blood Pressure 116/56 L 139/63 171/79 H Pulse Oximetry 100 98 95 09/16/18 08:00 09/16/18 12:00 Temperature 97.4 F L 97.3 F L Pulse Rate 89 86 Respiratory Rate 20 18 Blood Pressure 178/81 H 131/63 Pulse Oximetry 100 97 Intake & Output 09/15/18 09/16/18 09/16/18 18:59 06:59 18:59 Intake Total 890 / 890 680 / 680 Output Total 400 / 400 1200 / 1200 Balance 490 / 490 -520 / -520 Weight 88.8 kg Intake: IV 150 / 150 200 / 200 Tygacil Inj 50 MG In NS Inj 100 100 / 100 100 / 100 ML @ 200 mls/hr IV.SIG Q12H ROBBIE Rx#:[id number] Mefoxin Inj 2 GM In D5W Inj 50 50 / 50 100 / 100 ML @ 100 mls/hr IV.SIG Q8H ROBBIE Rx#:[id number] Oral 740 / 740 480 / 480 Output: Urine 400 / 400 1200 / 1200 Other: # Voids 4 Date of Last Bowel Movement 09/13/18 Narrative: GENERAL: Well-nourished male, no acute distress, lying comfortably in SKIN: Warm and dry. Left hand dressing C/D/I. HEAD: Normocephalic. EYES: No scleral icterus. No injection or drainage. NECK: Supple, trachea midline. No JVD or lymphadenopathy. CARDIOVASCULAR: Regular rate and rhythm without murmurs, gallops, or rubs. RESPIRATORY: Breath sounds equal bilaterally. No accessory muscle use. GASTROINTESTINAL: Abdomen soft, non-tender, nondistended. MUSCULOSKELETAL: No cyanosis, or edema. BACK: Nontender without obvious deformity. No CVA tenderness. NEURO: AAO x3, no focal deficits. Results - Labs CBC & Chem 7: 09/16/18 12:42 09/16/18 12:42 Laboratory Results - last 24 hr 09/15/18 09/15/18 09/15/18 17:29 21:04 22:00 WBC RBC Hgb Hct MCV MCH MCHC RDW Plt Count MPV Prelim Diff (Auto) Neut % (Auto) Lymph % (Auto) [place] % (Auto) Eos % (Auto) Baso % (Auto) Neut # (Auto) Lymph # (Auto) [place] # (Auto) Eos # (Auto) Baso # (Auto) WBC Differential Seg Neuts % (Manual) Band Neuts % (Manual) Lymphocytes % (Manual) Monocytes % (Manual) Myelocytes % (Man) Abs Neuts (Manual) Differential Comment Platelet Estimate Platelet Morphology Sodium Potassium Chloride Carbon Dioxide Anion Gap BUN Creatinine Estimated GFR POC Glucose 114 H 118 H Random Glucose Calcium Total Bilirubin AST ALT Alkaline Phosphatase C-Reactive Protein Total Protein Albumin Urine Color Yellow Urine Clarity Clear Urine pH 6.0 Ur Specific [place] 1.011 Urine Protein Negative Urine Glucose (UA) Negative Urine Ketones Negative Urine Occult Blood Negative Urine Nitrate Negative Urine Bilirubin Negative Urine Urobilinogen Less than 2 Ur Leukocyte Esterase Small H Urine RBC 2 Urine WBC 9 H Urine Bacteria Rare H Urine Mucus Few H Ur Microscopic Review Not Reportable 09/16/18 09/16/18 09/16/18 08:05 08:06 08:31 WBC RBC Hgb Hct MCV MCH MCHC RDW Plt Count MPV Prelim Diff (Auto) Neut % (Auto) Lymph % (Auto) [place] % (Auto) Eos % (Auto) Baso % (Auto) Neut # (Auto) Lymph # (Auto) [place] # (Auto) Eos # (Auto) Baso # (Auto) WBC Differential Seg Neuts % (Manual) Band Neuts % (Manual) Lymphocytes % (Manual) Monocytes % (Manual) Myelocytes % (Man) Abs Neuts (Manual) Differential Comment Platelet Estimate Platelet Morphology Sodium Potassium Chloride Carbon Dioxide Anion Gap BUN Creatinine Estimated GFR POC Glucose 29 L* 30 L* 161 H Random Glucose Calcium Total Bilirubin AST ALT Alkaline Phosphatase C-Reactive Protein Total Protein Albumin Urine Color Urine Clarity Urine pH Ur Specific [place] Urine Protein Urine Glucose (UA) Urine Ketones Urine Occult Blood Urine Nitrate Urine Bilirubin Urine Urobilinogen Ur Leukocyte Esterase Urine RBC Urine WBC Urine Bacteria Urine Mucus Ur Microscopic Review 09/16/18 09/16/18 09/16/18 08:32 10:15 12:42 WBC 16.8 H RBC 4.17 L Hgb 10.6 L Hct 32.1 L MCV 76.9 L MCH 25.4 L MCHC 33.0 RDW 16.8 Plt Count 427 MPV 6.3 L Prelim Diff (Auto) Slide review pending Neut % (Auto) 85.4 H Lymph % (Auto) 7.3 L [place] % (Auto) 7.2 Eos % (Auto) 0.0 Baso % (Auto) 0.1 Neut # (Auto) 14.4 H Lymph # (Auto) 1.2 [place] # (Auto) 1.2 H Eos # (Auto) 0.0 Baso # (Auto) 0.0 WBC Differential Manual diff final Seg Neuts % (Manual) 73 H Band Neuts % (Manual) 5 Lymphocytes % (Manual) 9 Monocytes % (Manual) 12 H Myelocytes % (Man) 1 H Abs Neuts (Manual) 13.3 H Differential Comment . Platelet Estimate Normal Platelet Morphology Normal Sodium Potassium Chloride Carbon Dioxide Anion Gap BUN Creatinine Estimated GFR POC Glucose 134 H 152 H Random Glucose Calcium Total Bilirubin AST ALT Alkaline Phosphatase C-Reactive Protein Total Protein Albumin Urine Color Urine Clarity Urine pH Ur Specific [place] Urine Protein Urine Glucose (UA) Urine Ketones Urine Occult Blood Urine Nitrate Urine Bilirubin Urine Urobilinogen Ur Leukocyte Esterase Urine RBC Urine WBC Urine Bacteria Urine Mucus Ur Microscopic Review 09/16/18 09/16/18 12:42 13:21 WBC RBC Hgb Hct MCV MCH MCHC RDW Plt Count MPV Prelim Diff (Auto) Neut % (Auto) Lymph % (Auto) [place] % (Auto) Eos % (Auto) Baso % (Auto) Neut # (Auto) Lymph # (Auto) [place] # (Auto) Eos # (Auto) Baso # (Auto) WBC Differential Seg Neuts % (Manual) Band Neuts % (Manual) Lymphocytes % (Manual) Monocytes % (Manual) Myelocytes % (Man) Abs Neuts (Manual) Differential Comment Platelet Estimate Platelet Morphology Sodium 132 L Potassium 4.1 Chloride 95 L D Carbon Dioxide 28.6 Anion Gap 8 BUN 29 H Creatinine 0.65 Estimated GFR Greater than 89 POC Glucose 210 H Random Glucose 148 H Calcium 9.1 D Total Bilirubin 0.2 AST 15 ALT 22 Alkaline Phosphatase 174 H C-Reactive Protein 4.40 H Total Protein 8.0 D Albumin 2.7 L Urine Color Urine Clarity Urine pH Ur Specific [place] Urine Protein Urine Glucose (UA) Urine Ketones Urine Occult Blood Urine Nitrate Urine Bilirubin Urine Urobilinogen Ur Leukocyte Esterase Urine RBC Urine WBC Urine Bacteria Urine Mucus Ur Microscopic Review Microbiology 09/15/18 14:52 Blood - Peripheral Aerobic Blood Culture - Preliminary No growth in 1 day 09/15/18 14:52 Blood - Peripheral Anaerobic Blood Culture - Preliminary No growth in 1 day 09/15/18 14:57 Blood - Peripheral Aerobic Blood Culture - Preliminary No growth in 1 day 09/15/18 14:57 Blood - Peripheral Anaerobic Blood Culture - Preliminary No growth in 1 day - Imaging Impressions Chest X-Ray 09/16/18 00:00 CONCLUSION: 1. Right-sided PICC line in place which appears to be unchanged in position compared to the prior study. The tip is overlying the mid SVC. 2. No new or acute intrathoracic disease.. - Procedures 08/28 exploration, flexor tenosynovectomy, debridement/excision of the infected/ necrotic flexor digitorum superficialis, left palm/ring finger Assessment and Plan - Assessment (1) Osteomyelitis Code(s): M86.9 - Osteomyelitis, unspecified Status: Acute (2) Diabetes Code(s): E11.9 - Type 2 diabetes mellitus without complications Status: Chronic (3) Hyponatremia Code(s): E87.1 - Hypo-osmolality and hyponatremia Status: Acute (4) Suppurative tenosynovitis of flexor tendon of left hand Code(s): M65.142 - Other infective (teno)synovitis, left hand Status: Chronic - Plan This is a 58-year-old CM with PMHx of HTN, HLD, GERD, A. fib, and DM, with recent hospitalization for lumbar spine discitis currently on outpatient IV vancomycin via PICC, presents with complaints of back pain, hand pain, and dislodgment of PICC line. Dx with OM now on ABX also now s/p Exploration, wash, repair of wound dehiscence, left palm/ring finger on 09/13, POD#3, HD#21 1. Lumbar Discitis/Osteomyelitis MRI from 08/30/2018 shows epidural abscess causing regional stenosis at L4-L5 with extension beyond vertebral body Neurosurgery recommends conservative management with IV antibiotics, surgery only warranted if causing bladder or extremity symptoms Continuing 8 weeks of Biaxin started on 08/27, Tygacil started on 09/03, and Cefoxitin started 09/[address] Repeat L spine MRI shows no worsening, no improvement C-spine MRI shows severe stenosis at C7, left canal Neurosurgery recommends a cautious approach, following for evidence of worsening cauda equina syndrome or increasing bladder dysfunction Laminectomy is high risk due to presence of osteomyelitis and possible bone instability, possible need for hardware, presence of infection Appreciate neurosurgery consult Appreciate infectious disease 2. Supportive tenosynovitis of flexor tendon of left hand s/p Exploration, wash, repair of wound dehiscence, left palm/ring finger on Cont. ABX as above Appreciate hand surgery following 3. Chronic Pain Patient's chief complaint is pain, he is not sedated despite the amount of narcotics that he is on, history of high tolerance Continue oxycodone long acting 80 mg BID with 1 mg Dilaudid q4h for breakthrough , and Oxycodone 20mg Q4hrs Narcan ordered just in case Patient has been unable to wean as his pain has worsened Lidocaine patch ordered for placement onto L-spine [employer] requested for corset brace for lumbar support and mechanical relief Continue Mobic 7.5 mg BID 4. History of Atrial Fibrillation S/P Ablation Continue to monitor with telemetry Continuing Cardizem and Eliquis 5. Diabetes Mellitus Type 2, improving Blood sugars improved Continue sliding-scale insulin coverage Continue diabetic diet Cont. Detemir 22 units BID (was on 25U BID but had hypoglycemia last night) 6. Hypertension Continue home Dilt, Rampril, and Lasix 7. Anemia Hemoglobin 10.6 from 9.2 Follow-up in a.m. 8. Leukocytosis Likely due to infection WBC 16.8 from 13.5 previously Rpt labs 09/15- Neg CXR, Neg U/A, Bld Cx NG at 1day 9. Hyponatremia Na 132, 134 when corrected for hyperglycemia Asymptomatic F/U in AM 10. GI/DVT Prophylaxis: Eliquis and PPI 11. 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
--- NOTE | 2018-09-16 16:46 | P.PN ---
Subjective Interval history: complaint with dressing complains of mild pain over left hand Physical Exam Vital signs: Vital Signs 09/15/18 20:00 09/16/18 00:00 09/16/18 08:00 Temperature 98.2 F 98.1 F 97.4 F L Pulse Rate 80 106 H 89 Respiratory Rate 18 18 20 Blood Pressure 139/63 171/79 H 178/81 H Pulse Oximetry 98 95 100 09/16/18 12:00 Temperature 97.3 F L Pulse Rate 86 Respiratory Rate 18 Blood Pressure 131/63 Pulse Oximetry 97 Intake & Output 09/15/18 09/16/18 09/16/18 18:59 06:59 18:59 Intake Total 890 / 890 680 / 680 Output Total 400 / 400 1200 / 1200 Balance 490 / 490 -520 / -520 Weight 88.8 kg Intake: IV 150 / 150 200 / 200 Tygacil Inj 50 MG In NS Inj 100 100 / 100 100 / 100 ML @ 200 mls/hr IV.SIG Q12H ROBBIE Rx#:[id number] Mefoxin Inj 2 GM In D5W Inj 50 50 / 50 100 / 100 ML @ 100 mls/hr IV.SIG Q8H ROBBIE Rx#:[id number] Oral 740 / 740 480 / 480 Output: Urine 400 / 400 1200 / 1200 Other: # Voids 4 Date of Last Bowel Movement 09/13/18 Narrative: left hand: dressing in place very minimal drainage sutures in place left palm/ring finger flexion deformity at the PIP joint noted intact distal sensation and circulation. cultures negative to date Results - Labs CBC & Chem 7: 09/16/18 12:42 09/16/18 12:42 Laboratory Results - last 24 hr 09/15/18 09/15/18 09/15/18 17:29 21:04 22:00 WBC RBC Hgb Hct MCV MCH MCHC RDW Plt Count MPV Prelim Diff (Auto) Neut % (Auto) Lymph % (Auto) [place] % (Auto) Eos % (Auto) Baso % (Auto) Neut # (Auto) Lymph # (Auto) [place] # (Auto) Eos # (Auto) Baso # (Auto) WBC Differential Seg Neuts % (Manual) Band Neuts % (Manual) Lymphocytes % (Manual) Monocytes % (Manual) Myelocytes % (Man) Abs Neuts (Manual) Differential Comment Platelet Estimate Platelet Morphology Sodium Potassium Chloride Carbon Dioxide Anion Gap BUN Creatinine Estimated GFR POC Glucose 114 H 118 H Random Glucose Calcium Total Bilirubin AST ALT Alkaline Phosphatase C-Reactive Protein Total Protein Albumin Urine Color Yellow Urine Clarity Clear Urine pH 6.0 Ur Specific [place] 1.011 Urine Protein Negative Urine Glucose (UA) Negative Urine Ketones Negative Urine Occult Blood Negative Urine Nitrate Negative Urine Bilirubin Negative Urine Urobilinogen Less than 2 Ur Leukocyte Esterase Small H Urine RBC 2 Urine WBC 9 H Urine Bacteria Rare H Urine Mucus Few H Ur Microscopic Review Not Reportable 09/16/18 09/16/18 09/16/18 08:05 08:06 08:31 WBC RBC Hgb Hct MCV MCH MCHC RDW Plt Count MPV Prelim Diff (Auto) Neut % (Auto) Lymph % (Auto) [place] % (Auto) Eos % (Auto) Baso % (Auto) Neut # (Auto) Lymph # (Auto) [place] # (Auto) Eos # (Auto) Baso # (Auto) WBC Differential Seg Neuts % (Manual) Band Neuts % (Manual) Lymphocytes % (Manual) Monocytes % (Manual) Myelocytes % (Man) Abs Neuts (Manual) Differential Comment Platelet Estimate Platelet Morphology Sodium Potassium Chloride Carbon Dioxide Anion Gap BUN Creatinine Estimated GFR POC Glucose 29 L* 30 L* 161 H Random Glucose Calcium Total Bilirubin AST ALT Alkaline Phosphatase C-Reactive Protein Total Protein Albumin Urine Color Urine Clarity Urine pH Ur Specific [place] Urine Protein Urine Glucose (UA) Urine Ketones Urine Occult Blood Urine Nitrate Urine Bilirubin Urine Urobilinogen Ur Leukocyte Esterase Urine RBC Urine WBC Urine Bacteria Urine Mucus Ur Microscopic Review 09/16/18 09/16/18 09/16/18 08:32 10:15 12:42 WBC 16.8 H RBC 4.17 L Hgb 10.6 L Hct 32.1 L MCV 76.9 L MCH 25.4 L MCHC 33.0 RDW 16.8 Plt Count 427 MPV 6.3 L Prelim Diff (Auto) Slide review pending Neut % (Auto) 85.4 H Lymph % (Auto) 7.3 L [place] % (Auto) 7.2 Eos % (Auto) 0.0 Baso % (Auto) 0.1 Neut # (Auto) 14.4 H Lymph # (Auto) 1.2 [place] # (Auto) 1.2 H Eos # (Auto) 0.0 Baso # (Auto) 0.0 WBC Differential Manual diff final Seg Neuts % (Manual) 73 H Band Neuts % (Manual) 5 Lymphocytes % (Manual) 9 Monocytes % (Manual) 12 H Myelocytes % (Man) 1 H Abs Neuts (Manual) 13.3 H Differential Comment . Platelet Estimate Normal Platelet Morphology Normal Sodium Potassium Chloride Carbon Dioxide Anion Gap BUN Creatinine Estimated GFR POC Glucose 134 H 152 H Random Glucose Calcium Total Bilirubin AST ALT Alkaline Phosphatase C-Reactive Protein Total Protein Albumin Urine Color Urine Clarity Urine pH Ur Specific [place] Urine Protein Urine Glucose (UA) Urine Ketones Urine Occult Blood Urine Nitrate Urine Bilirubin Urine Urobilinogen Ur Leukocyte Esterase Urine RBC Urine WBC Urine Bacteria Urine Mucus Ur Microscopic Review 09/16/18 09/16/18 12:42 13:21 WBC RBC Hgb Hct MCV MCH MCHC RDW Plt Count MPV Prelim Diff (Auto) Neut % (Auto) Lymph % (Auto) [place] % (Auto) Eos % (Auto) Baso % (Auto) Neut # (Auto) Lymph # (Auto) [place] # (Auto) Eos # (Auto) Baso # (Auto) WBC Differential Seg Neuts % (Manual) Band Neuts % (Manual) Lymphocytes % (Manual) Monocytes % (Manual) Myelocytes % (Man) Abs Neuts (Manual) Differential Comment Platelet Estimate Platelet Morphology Sodium 132 L Potassium 4.1 Chloride 95 L D Carbon Dioxide 28.6 Anion Gap 8 BUN 29 H Creatinine 0.65 Estimated GFR Greater than 89 POC Glucose 210 H Random Glucose 148 H Calcium 9.1 D Total Bilirubin 0.2 AST 15 ALT 22 Alkaline Phosphatase 174 H C-Reactive Protein 4.40 H Total Protein 8.0 D Albumin 2.7 L Urine Color Urine Clarity Urine pH Ur Specific [place] Urine Protein Urine Glucose (UA) Urine Ketones Urine Occult Blood Urine Nitrate Urine Bilirubin Urine Urobilinogen Ur Leukocyte Esterase Urine RBC Urine WBC Urine Bacteria Urine Mucus Ur Microscopic Review Microbiology 09/15/18 14:52 Blood - Peripheral Aerobic Blood Culture - Preliminary No growth in 1 day 09/15/18 14:52 Blood - Peripheral Anaerobic Blood Culture - Preliminary No growth in 1 day 09/15/18 14:57 Blood - Peripheral Aerobic Blood Culture - Preliminary No growth in 1 day 09/15/18 14:57 Blood - Peripheral Anaerobic Blood Culture - Preliminary No growth in 1 day - Imaging Impressions Chest X-Ray 09/16/18 00:00 CONCLUSION: 1. Right-sided PICC line in place which appears to be unchanged in position compared to the prior study. The tip is overlying the mid SVC. 2. No new or acute intrathoracic disease.. - Procedures 08/28 exploration, flexor tenosynovectomy, debridement/excision of the infected/ necrotic flexor digitorum superficialis, left palm/ring finger Assessment and Plan - Assessment (1) Suppurative tenosynovitis of flexor tendon of left hand Code(s): M65.142 - Other infective (teno)synovitis, left hand Status: Chronic - Plan 58 year old male s/p flexor tenosynovectomy, drainage, tendon debridement left palm/ring finger POD 2 Plan: surrounding skin is cleaned with alcohol wipes dry dressing applied held in place with a cling continue with antibiotics based on ID recommendations cleared for discharge from hand surgery daily dressing changes: clean the surrounding skin with alcohol wipes, 4X4 and cling follow up in office on sunday09/20/18
[2018-09-17] MEDS: HYDROmorphone PF Inj 2 MG/ML Vial IV.PUSH PRN ×4 (01:30→16:22)
[2018-09-17] MEDS: CEFOXITIN IV.SIG SCH ×6 (02:02→16:21)
[2018-09-17] MEDS: WATER IV.SIG SCH ×6 (02:02→16:21)
[2018-09-17] MEDS: DEXTROSE 5% IV.SIG SCH ×6 (02:02→16:21)
[2018-09-17] MEDS: Ramipril 2.5 MG Capsule PO SCH (08:31)
[2018-09-17] MEDS: oxyCODONE HCL 80 MG Controlled Release Tablet PO SCH ×2 (08:31→22:46)
[2018-09-17] MEDS: dilTIAZem CD 240 MG Capsule PO SCH (08:31)
[2018-09-17] MEDS: Senna/Docusate Sodium 8.6/50 MG Tablet PO SCH ×2 (08:31→21:24)
[2018-09-17] MEDS: Furosemide 20 MG Tablet PO SCH ×2 (08:31→21:24)
[2018-09-17] MEDS: Meloxicam 7.5 MG Tablet PO SCH ×2 (08:31→21:42)
[2018-09-17] MEDS: Heparin Central Flush 100 UNIT/ML 5 ML Vial IV.FLUSH SCH (08:32)
[2018-09-17] MEDS: Insulin NovoLOG Aspart Correctional Sugar Inj SQ SCH ×4 (08:32→22:48)
[2018-09-17] MEDS: Insulin Detemir Inj 1,000 UNIT/10 ML Vial SQ SCH ×2 (08:32→22:47)
[2018-09-17] MEDS: Lidocaine 5% Patch T-DERMAL SCH (08:34)
[2018-09-17] MEDS: Sodium Chloride 0.9% 2 ML Flush BID IV.FLUSH SCH ×2 (08:38→21:25)
[2018-09-17 09:47] LABS: Baso # (Auto) 0.1 th/mm3 (0.0-0.2); Baso % (Auto) 0.6 % (0.0-2.0); Eos # (Auto) 0.1 th/mm3 (0.0-0.4); Eos % (Auto) 0.7 % (0.0-4.0); Hematocrit 26.3 % (39.0-51.0); Hemoglobin 8.8 gm/dL (13.0-17.0); Lymph # (Auto) 1.5 th/mm3 (1.0-4.8); Lymph % (Auto) 12.9 % (9.0-44.0); Mean Corpuscular HGB Conc 33.4 % (32.0-36.0); Mean Corpuscular Hemoglobin 25.8 pg (27.0-34.0); Mean Corpuscular Volume 77.2 fL (80.0-100.0); Mean Platelet Volume 6.6 fL (7.0-11.0); Mono # (Auto) 1.1 th/mm3 (0.0-0.9); Mono % (Auto) 9.1 % (0.0-8.0); Neut # (Auto) 9.1 th/mm3 (1.8-7.7); Neut % (Auto) 76.7 % (16.0-70.0); Platelet Count 357 th/mm3 (150-450); Red Cell Distribution Width 16.8 % (11.6-17.2); White Blood Count 11.9 th/mm3 (4.0-11.0)
[2018-09-17 10:22] LABS: Alanine Aminotransferase 18 U/L (12-78); Albumin 2.2 g/dL (3.4-5.0); Alkaline Phosphatase 178 U/L (45-117); Anion Gap 8 meq/L (5-15); Aspartate Aminotransferase 9 U/L (15-37); Blood Urea Nitrogen 25 mg/dL (7-18); Calcium 8.1 mg/dL (8.5-10.1); Carbon Dioxide 27.2 meq/L (21.0-32.0); Chloride 97 meq/L (98-107); Glomerular Filtration Rate Greater Than 89 mL/min (>89); Glucose,Random 303 mg/dL (74-106); Potassium 4.2 meq/L (3.5-5.1); Sodium 132 meq/L (136-145); Total Protein 6.5 g/dL (6.4-8.2)
--- NOTE | 2018-09-17 10:55 | P.DS ---
Date of admission: 08/27/18 12:44 Primary care physician: No Primary Care Physician Brief History from admission: This is a 58-year-old CM with history of HTN, HLD, GERD, A. fib, DM, recent hospitalization for lumbar spine discitis currently on outpatient IV vancomycin via PICC, presented with complaints of back pain, hand pain, and dislodgment of PICC line. The patient was recently hospitalized for L4-5 discitis, discharged on outpatient IV Vanco 1750mg daily infusion, however he presented back to the ER with complaints of recurrent back pain and dislodgement of his PICC. The patient cannot tell me when his PICC was dislodged, consistently states "I don' t know". Denies recent fevers/chills. He also reported left hand pain and swelling to ER MD. It is very difficult obtaining any further history from the patient. No other complaints reported. DS: Diagnosis - Discharge Diagnosis (1) Osteomyelitis Status: Acute (2) Diabetes Status: Chronic (3) Hyponatremia Status: Acute (4) Suppurative tenosynovitis of flexor tendon of left hand Status: Chronic DS: Medications - Discharge Medications Prescriptions: clarithromycin 500 mg PO Q12H 60 Days #120 tab DS: Summary Hospital Course: This is a 58-year-old CM with PMHx of HTN, HLD, GERD, A. fib, and DM, with recent hospitalization for lumbar spine discitis currently on outpatient IV vancomycin via PICC, presented with complaints of back pain, hand pain, and dislodgment of PICC line and sepsis on admission. Dx with OM now on ABX also now s/p Exploration, wash, repair of wound dehiscence, left palm/ring finger on 09/13. 1. Lumbar Discitis/Osteomyelitis MRI from 08/30/2018 showed epidural abscess causing regional stenosis at L4-L5 with extension beyond vertebral body Neurosurgery recommended conservative management with IV antibiotics, sx only for bladder or extremity symptoms Complete 8 weeks of Biaxin started on 08/27, Tygacil and Cefoxitin cont. until per ID PICC line pulled out, midline to be placed prior to D/C Repeat L spine MRI shows no worsening, no improvement C-spine MRI showed severe stenosis at C7, left canal Laminectomy is high risk due to presence of osteomyelitis and possible bone instability, possible need for hardware, presence of infection 2. Supportive tenosynovitis of flexor tendon of left hand s/p Exploration, wash, repair of wound dehiscence, left palm/ring finger on s/p ABX as above RN spoke to Dr. Houston on 09/16 about D/C planning, we asked if he planned on prescribing any narcotics on discharge, he stated that none were needed. The patient was advised to resume his home regime as no longer treating acute postop pain. 3. Chronic Pain Patient's chief complaint is pain, he is not sedated despite the amount of narcotics that he is on, history of high tolerance Was on Oxycodone long acting 80 mg BID with 1 mg Dilaudid q4h for breakthrough, and Oxycodone 20mg Q4hrs during hospital stay. This regimen was meant for acute pain mgmt, patient is now 5 days postop and advised to resume previous regimen on D/C per his pain medical charge entry specialist, per e-force Review today, patient getting regular prescriptions for oxycodone 30 mg tablets. Last prescription was filled on 08/17, this was a 30 day supply and patient was given 100 tabs of oxycodone 30 mg. Since patient has been hospitalized since 08/27 he should have almost 3 weeks of oxycodone left. He was advised that he was not going to get further prescriptions from us, and that he should follow up with this pain management clinic. This was discussed with the charge nurse, rn case manager hospice, and RN. [employer] was requested for corset brace for lumbar support and mechanical relief. Dispo: Home health care nursing already set up at D/C for IV antibiotics( Tygacil and Cefoxitin) until 10/04 plus Biaxin PO x8wks, F/U hand sx, Dr. Houston on Sunday, no narcotics to be Rx, on 08/17 10 days prior to admission received Oxycodone 30mg tabs #100, 30 day supply. F/U with pain mgmt on D/C. - Time Spent with Patient Total time spent providing and/or coordinating discharge services: Greater than 30 minutes - Quality: VTE Deep Vein Thrombosis/Pulmonary Embolism Present on Admission: No Exam Vital signs: Vital Signs 09/16/18 12:00 09/16/18 20:00 09/17/18 00:00 Temperature 97.3 F L 97.1 F L 97.9 F Pulse Rate 86 71 86 Respiratory Rate 18 19 20 Blood Pressure 131/63 145/91 H 135/83 Pulse Oximetry 97 100 99 09/17/18 04:00 09/17/18 07:00 09/17/18 08:00 Temperature 98.6 F 98.5 F Pulse Rate 94 H 89 Respiratory Rate 15 12 20 Blood Pressure 155/70 H 113/64 Pulse Oximetry 98 96 Intake & Output 09/16/18 09/17/18 09/17/18 18:59 06:59 18:59 Intake Total 750 / 750 2360 / 2360 150 / 150 Output Total 1800 / 1800 600 / 600 Balance 750 / 750 560 / 560 -450 / -450 Weight 87.8 kg Intake: IV 150 / 150 200 / 200 150 / 150 Tygacil Inj 50 MG In NS Inj 100 100 / 100 100 / 100 100 / 100 ML @ 200 mls/hr IV.SIG Q12H ROBBIE Rx#:[id number] Mefoxin Inj 2 GM In D5W Inj 50 50 / 50 100 / 100 50 / 50 ML @ 100 mls/hr IV.SIG Q8H ROBBIE Rx#:[id number] Oral 600 / 600 2160 / 2160 Output: Urine 1800 / 1800 600 / 600 Other: # Voids 2 Date of Last Bowel Movement 09/16/18 09/16/18 09/16/18 Narrative: GENERAL: Well-nourished male, no acute distress, lying comfortably in SKIN: Warm and dry. Left hand dressing C/D/I. HEAD: Normocephalic. EYES: No scleral icterus. No injection or drainage. NECK: Supple, trachea midline. No JVD or lymphadenopathy. CARDIOVASCULAR: Regular rate and rhythm without murmurs, gallops, or rubs. RESPIRATORY: Breath sounds equal bilaterally. No accessory muscle use. GASTROINTESTINAL: Abdomen soft, non-tender, nondistended. MUSCULOSKELETAL: No cyanosis, or edema. BACK: Nontender without obvious deformity. No CVA tenderness. NEURO: AAO x3, no focal deficits. Results Procedures completed during hospitalization: 08/28 exploration, flexor tenosynovectomy, debridement/excision of the infected/ necrotic flexor digitorum superficialis, left palm/ring finger Completed studies during hospitalization: Pending at discharge 08/28/18 07:21 Surgical [PTH] Routine Labs on day of discharge: Labs from last 24 hours 09/17/18 09/17/18 09/17/18 07:27 06:30 06:30 WBC 11.9 H RBC 3.40 L Hgb 8.8 L Hct 26.3 L MCV 77.2 L MCH 25.8 L MCHC 33.4 RDW 16.8 Plt Count 357 MPV 6.6 L Prelim Diff (Auto) Neut % (Auto) 76.7 H Lymph % (Auto) 12.9 Hopkins % (Auto) 9.1 H Eos % (Auto) 0.7 Baso % (Auto) 0.6 Neut # (Auto) 9.1 H Lymph # (Auto) 1.5 Hopkins # (Auto) 1.1 H Eos # (Auto) 0.1 Baso # (Auto) 0.1 WBC Differential . Seg Neuts % (Manual) Band Neuts % (Manual) Lymphocytes % (Manual) Monocytes % (Manual) Myelocytes % (Man) Abs Neuts (Manual) Differential Comment Auto diff final Platelet Estimate Platelet Morphology Sodium 132 L Potassium 4.2 Chloride 97 L Carbon Dioxide 27.2 Anion Gap 8 BUN 25 H Creatinine 0.76 Estimated GFR Greater than 89 POC Glucose 359 H Random Glucose 303 H D Calcium 8.1 L D Total Bilirubin 0.2 AST 9 L ALT 18 Alkaline Phosphatase 178 H C-Reactive Protein Total Protein 6.5 D Albumin 2.2 L 09/16/18 09/16/18 09/16/18 22:17 17:37 13:21 WBC RBC Hgb Hct MCV MCH MCHC RDW Plt Count MPV Prelim Diff (Auto) Neut % (Auto) Lymph % (Auto) Hopkins % (Auto) Eos % (Auto) Baso % (Auto) Neut # (Auto) Lymph # (Auto) Hopkins # (Auto) Eos # (Auto) Baso # (Auto) WBC Differential Seg Neuts % (Manual) Band Neuts % (Manual) Lymphocytes % (Manual) Monocytes % (Manual) Myelocytes % (Man) Abs Neuts (Manual) Differential Comment Platelet Estimate Platelet Morphology Sodium Potassium Chloride Carbon Dioxide Anion Gap BUN Creatinine Estimated GFR POC Glucose 233 H 159 H 210 H Random Glucose Calcium Total Bilirubin AST ALT Alkaline Phosphatase C-Reactive Protein Total Protein Albumin 09/16/18 09/16/18 12:42 12:42 WBC 16.8 H RBC 4.17 L Hgb 10.6 L Hct 32.1 L MCV 76.9 L MCH 25.4 L MCHC 33.0 RDW 16.8 Plt Count 427 MPV 6.3 L Prelim Diff (Auto) Slide review pending Neut % (Auto) 85.4 H Lymph % (Auto) 7.3 L Hopkins % (Auto) 7.2 Eos % (Auto) 0.0 Baso % (Auto) 0.1 Neut # (Auto) 14.4 H Lymph # (Auto) 1.2 Hopkins # (Auto) 1.2 H Eos # (Auto) 0.0 Baso # (Auto) 0.0 WBC Differential Manual diff final Seg Neuts % (Manual) 73 H Band Neuts % (Manual) 5 Lymphocytes % (Manual) 9 Monocytes % (Manual) 12 H Myelocytes % (Man) 1 H Abs Neuts (Manual) 13.3 H Differential Comment . Platelet Estimate Normal Platelet Morphology Normal Sodium 132 L Potassium 4.1 Chloride 95 L D Carbon Dioxide 28.6 Anion Gap 8 BUN 29 H Creatinine 0.65 Estimated GFR Greater than 89 POC Glucose Random Glucose 148 H Calcium 9.1 D Total Bilirubin 0.2 AST 15 ALT 22 Alkaline Phosphatase 174 H C-Reactive Protein 4.40 H Total Protein 8.0 D Albumin 2.7 L Preliminary micro results at discharge 09/15/18 14:52 Aerobic Blood Culture - Preliminary Blood - Peripheral No growth in 1 day Anaerobic Blood Culture - Preliminary No growth in 1 day 09/15/18 14:57 Aerobic Blood Culture - Preliminary Blood - Peripheral No growth in 1 day Anaerobic Blood Culture - Preliminary No growth in 1 day 08/28/18 19:35 Mycobacterial Culture - Preliminary Wound - Finger No growth in 2 weeks 08/28/18 19:35 Fungal Culture - Preliminary Wound - Finger No growth in 2 weeks - Impressions ITS Impressions Hand X-Ray 08/27/18 02:55 CONCLUSION: 1. Unremarkable radiographs of the left hand. Cervical Spine MRI 09/12/18 00:00 CONCLUSION: 1. Multilevel cervical spine degenerative changes as detailed above. 2. High-grade, mostly left-sided foraminal stenosis at C5/C6, C6/C7 and C7/T1. 3. Mild to moderate degrees of spinal stenosis at C4/C5 and C5/C6. There is mild spinal stenosis at the other levels except for C2/C3. No cord compression or cord signal abnormality. 4. Grade 1 degenerative-appearing anterolisthesis at C7/T1. 5. No discitis or abscess of the cervical spine. Lumbar Spine MRI 09/12/18 00:00 CONCLUSION: Findings of discitis at L4/L5 and with associated small, mostly left paracentral epidural abscesses is very similar in the interim which would support no active or at least low-grade infection/progression. There is osteomyelitis of the L4 and L5 vertebral bodies also not significantly changed. No new discitis or new osteomyelitis. Chest X-Ray 09/16/18 00:00 CONCLUSION: 1. Right-sided PICC line in place which appears to be unchanged in position compared to the prior study. The tip is overlying the mid SVC. 2. No new or acute intrathoracic disease.. Discharge Plan - Discharge Disposition Patient Disposition: 01 Discharge Home - Discharge Condition Condition: Fair - Discharge Order Discharge Orders: Discharge Order (Routine); Ordered 09/17/18 Ordered By: aLuren Mera - Physicians Team Primary Care Provider: Primary Care Physici,Zamzam Attending Provider: Lauren Mera Other Providers: Zee Villalba MD ; Slim Slaughter MD ; El Juárez MD ; Rob Groves MD ; [facility]
[2018-09-17 21:29] VITALS: BP 136/60; PULSE 78; RESP 17; TEMP 98.8; O2SAT 97
[2018-09-17] MEDS ORDERED: CEFOXITIN IV.SIG ONE ×2 (22:00)
[2018-09-17] MEDS ORDERED: DEXTROSE 5% IV.SIG ONE ×2 (22:00)
[2018-09-17] MEDS ORDERED: WATER IV.SIG ONE ×2 (22:00)
== END 2018-09-18 00:01 | disposition home or self-care (01) ==
LOC: NEPC 23:23 → NEDA 08-27 06:03 → INTOOBSV 08-27 06:03 → NEDA 08-27 07:40 → NEPHCDU 08-27 07:50 → N05 08-28 21:18
PROVIDERS: ADMIT Family Medicine; ATTEND Family Medicine

== ENCOUNTER 2018-09-23 13:15 | Inpatient (IN) ==
[2018-09-23] MEDS ORDERED: Tigecycline Inj 100 MG in Sodium Chlor 0.9% Inj 100 ML IV.SIG ONE (13:30)
[2018-09-23 14:05] LABS: Baso # (Auto) 0.1 th/mm3 (0.0-0.2); Baso % (Auto) 0.7 % (0.0-2.0); Eos # (Auto) 0.2 th/mm3 (0.0-0.4); Eos % (Auto) 1.1 % (0.0-4.0); Hematocrit 33.2 % (39.0-51.0); Hemoglobin 11.1 gm/dL (13.0-17.0); Lymph # (Auto) 1.3 th/mm3 (1.0-4.8); Lymph % (Auto) 6.3 % (9.0-44.0); Mean Corpuscular HGB Conc 33.5 % (32.0-36.0); Mean Corpuscular Hemoglobin 25.9 pg (27.0-34.0); Mean Corpuscular Volume 77.2 fL (80.0-100.0); Mean Platelet Volume 6.4 fL (7.0-11.0); Mono # (Auto) 1.3 th/mm3 (0.0-0.9); Mono % (Auto) 5.9 % (0.0-8.0); Neut # (Auto) 18.5 th/mm3 (1.8-7.7); Platelet Count 409 th/mm3 (150-450); Red Cell Distribution Width 17.2 % (11.6-17.2); White Blood Count 21.5 th/mm3 (4.0-11.0)
--- NOTE | 2018-09-23 14:11 | ED ---
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 Patient states it stopped working over 24 hours ago. He states that he developed redness and swelling to the right upper arm proximal to the PICC line. He reports that he is on IV antibiotics for a "bug". He does not elaborate any more than this. He denies any fever, chills, nausea, vomiting. He reports 10 out of 10 pain in the right upper arm, it sore, worse to touch. Pain is constant. Symptom onset was gradual, symptoms are moderate. Onset (ago): day(s) Location: upper extremity Radiation: non-radiation Severity: moderate Severity scale (1-10): 10 Quality: aching Pain Consistency: constant Relieving factors: none Exacerbating factors: movement Associated symptoms: Reports denies other symptoms Treatments prior to arrival: Reports none Related Data Home Medications Medication Instructions Recorded Confirmed apixaban [Eliquis] 5 mg PO BID 06/09/18 09/23/18 diltiazem HCl 240 mg PO DAILY 06/09/18 09/23/18 furosemide 20 mg PO BID 06/09/18 09/23/18 insulin glargine [Lantus Solostar 50 unit SUB-Q BID 06/09/18 09/23/18 U-100 Insulin] pantoprazole [Protonix] 40 mg PO DAILY 06/09/18 09/23/18 ramipril 2.5 mg PO DAILY 06/09/18 09/23/18 oxycodone 30 mg PO Q4H PRN 07/22/18 09/23/18 cefoxitin in dextrose, iso-osm 2 g IV Q8H 09/23/18 09/23/18 tigecycline [Tygacil] 50 mg IV Q12H 09/23/18 09/23/18 Previous Rx's Medication Instructions Recorded baclofen 10 mg PO Q8HR #90 tab 08/04/18 clarithromycin 500 mg PO Q12H 60 Days #120 tab 09/17/18 meloxicam 7.5 mg PO Q12H tab 09/17/18 Allergies Allergy/AdvReac Type Severity Reaction Status Date / Time No Known Drug Allergies Allergy none Verified 08/06/18 15:59 *MDRO Multi-Drug Resistant AdvReac Unknown MRSA Uncoded 06/16/17 16:34 Organism Review of Systems ROS: all other systems reviewed are negative [facility] Medical History Medical History Amputated toe (Acute) GERD (gastroesophageal reflux disease) (Acute) Hyperlipidemia (Acute) Afib (Chronic) Back pain (Chronic) Diabetes (Chronic) Hypertension (Chronic) Osteomyelitis (Chronic) Surgical History Surgical History H/O foot surgery (Acute) Family History Family History Other Coronary artery disease Social History Social History Substance History: No History of Abuse Second Hand Smoke Exposure: No Smoking Status: Never smoker How Often Do You Have a Drink Containing Alcohol: Never Recent Travel in [facility] within the Last 8 Weeks: No Recent Out of Country Travel within the Last 8 Weeks: No Immunization History Tetanus Immunization: <5 Years Exam Narrative Exam Narrative: GENERAL: Thin, well-developed, alert male. Presenting in no acute distress. SKIN: Focused skin assessment warm/dry. Edema and erythema noted to the right upper arm proximal to the midline. HEAD: Atraumatic. Normocephalic. EYES: Pupils equal and round. No scleral icterus. No injection or drainage. ENT: No nasal bleeding or discharge. Mucous membranes pink and moist. NECK: Trachea midline. No JVD. CARDIOVASCULAR: Regular rate and rhythm. No murmur appreciated. 2+ radial pulse. RESPIRATORY: No accessory muscle use. Clear to auscultation. Breath sounds equal bilaterally. GASTROINTESTINAL: Abdomen soft, non-tender, nondistended. Hepatic and splenic margins not palpable. MUSCULOSKELETAL: No obvious deformities. No clubbing. No cyanosis. No edema. NEUROLOGICAL: Awake and alert. No obvious cranial nerve deficits. Motor grossly within normal limits. Normal speech. PSYCHIATRIC: Appropriate mood and affect; insight and judgment normal. Course Initial Documented Vital Signs Temperature 98 F 09/23/18 13:22 Pulse Rate 84 09/23/18 13:22 Respiratory Rate 18 09/23/18 13:22 Blood Pressure 98/61 L 09/23/18 13:22 Pulse Oximetry 100 09/23/18 13:22 Last Documented Vital Signs Temperature 98 F 09/23/18 13:22 Pulse Rate 84 09/23/18 13:22 Respiratory Rate 18 09/23/18 13:22 Blood Pressure 98/61 L 09/23/18 13:22 Pulse Oximetry 98 09/23/18 13:56 Medical Decision Making MDM Narrative Medical decision making narrative: Patient is a 58-year-old male presenting for evaluation of a nonfunctioning midline catheter. Will obtain labs and imaging. Patient will be given dose of Tygacil and cefoxitin now. CBC with elevated WBC when compared to prior. Chemistry with no acute findings. Blood cultures are pending. Ultrasound shows occlusive thrombus in the proximal and mid cephalic vein. Also shows a possible hematoma at the shoulder. Plan of care was discussed with my attending physician. Midline catheter was removed. Patient is currently on Eliquis. Discussed with Dr. Mera who accepted admission. Patient will need new IV access established to complete full course of antibiotics through October 04. Medical Screen Exam Complete: Yes Emergency Medical Condition: Yes Differential Diagnosis Differential Diagnosis: Cellulitis versus DVT versus metabolic abnormality versus other Medical Records Medical records reviewed: Yes I reviewed the patient's medical records. Patient is currently on Tygacil 50 mg every 12 hours and cefoxitin 2 g every 8 hours as well as Biaxin. These medications were to be continued through October 04, 2018. Patient has a history of Mycobacterium. He has been treated for lumbar spine discitis, epidural abscess was noted on 08/30. He also has a history of tenosynovitis and osteomyelitis. Lab Data Result diagrams: 09/23/18 13:50 09/23/18 13:50 Lab Results 09/23/18 09/23/18 09/23/18 Range/Units 13:50 13:50 13:50 WBC 21.5 H (4.0-11.0) th/mm3 RBC 4.30 L (4.50-5.90) mil/mm3 Hgb 11.1 L (13.0-17.0) gm/dL Hct 33.2 L (39.0-51.0) % MCV 77.2 L (80.0-100.0) fL MCH 25.9 L (27.0-34.0) pg MCHC 33.5 (32.0-36.0) % RDW 17.2 (11.6-17.2) % Plt Count 409 (150-450) th/mm3 MPV 6.4 L (7.0-11.0) fL Neut % (Auto) 86.0 H (16.0-70.0) % Lymph % (Auto) 6.3 L (9.0-44.0) % Bracken % (Auto) 5.9 (0.0-8.0) % Eos % (Auto) 1.1 (0.0-4.0) % Baso % (Auto) 0.7 (0.0-2.0) % Neut # (Auto) 18.5 H (1.8-7.7) th/mm3 Lymph # (Auto) 1.3 (1.0-4.8) th/mm3 Bracken # (Auto) 1.3 H (0.0-0.9) th/mm3 Eos # (Auto) 0.2 (0.0-0.4) th/mm3 Baso # (Auto) 0.1 (0.0-0.2) th/mm3 WBC Differential . Differential Comment Auto diff final PT 11.0 (9.8-11.6) sec INR 1.1 Ratio APTT 31.3 H (24.3-30.1) sec Sodium 132 L (136-145) meq/L Potassium 4.0 (3.5-5.1) meq/L Chloride 97 L (98-107) meq/L Carbon Dioxide 27.7 (21.0-32.0) meq/L Anion Gap 7 (5-15) meq/L BUN 20 H (7-18) mg/dL Creatinine 0.96 (0.60-1.30) mg/dL Estimated GFR 80 L (>89) mL/min Random Glucose 128 H (74-106) mg/dL Calcium 9.6 (8.5-10.1) mg/dL Magnesium 1.9 (1.5-2.5) mg/dL Total Bilirubin 0.4 (0.2-1.0) mg/dL AST 23 (15-37) U/L ALT 26 (12-78) U/L Alkaline Phosphatase 169 H (45-117) U/L Total Protein 7.9 D (6.4-8.2) g/dL Albumin 2.7 L (3.4-5.0) g/dL Imaging Data Radiologist's impression: Chest X-Ray 09/23/18 13:30 CONCLUSION: Negative examination. Venous Doppler Study 09/23/18 13:35 CONCLUSION: 1. Occlusive thrombus in the proximal and mid cephalic vein. 2. Deep venous system is otherwise patent. 3. Heterogeneous hypoechoic collection along the right shoulder which could represent a hematoma and/or seroma. Discharge Plan Discharge Disposition Patient Disposition: 30 Still Patient Discharge Condition Condition: Stable Discharge Details Diagnosis: Osteomyelitis, Discitis of lumbar region, Malfunction of peripheral inserted central catheter Physicians Team ED Provider: Lemuel Doe ED Midlevel Provider: Amna Prince Primary Care Provider: UNKNOWN, Attending Provider: Lauren Mera Status ED Status: Admitted Patient
[2018-09-23 14:13] LABS: Activated Partial Thrombo Time 31.3 sec (24.3-30.1); INR 1.1 Ratio
--- NOTE | 2018-09-23 14:15 | US ---
EXAM DATE: 09/23/2018 2:10 PM EDT AGE/SEX: 58 years / Male INDICATIONS: Right upper extremity redness and pain around midline. PICC line placed 09/17/18 in th e right upper arm. CLINICAL DATA: This is the patient's initial encounter. Patient reports that signs and symptoms have been present for 1 day and indicates a pain score of 10/10. MEDICAL/SURGICAL HISTORY: Hypertension. Hypercholesterolemia. Gastroesophageal reflux disease . Diabetes. Sepsis. Lumbar spine discitis. Osteomyelitis. . Flexor Tenosynovectomy. Debridement /excision of the infected/necrotic flexor digitorum superficialis. COMPARISON: None.. FINDINGS: There is occlusive thrombosis in the proximal and mid portions of the cephalic vein. A PIC C line is noted in the mid upper arm. The internal jugular vein, subclavian vein, axillary vein and b rachial vein are patent and compressible demonstrating normal waveforms. There is a heterogeneous hyp oechoic collection along the right shoulder measuring up to 4.9 x 1.1 cm. Other: None. CONCLUSION: 1. Occlusive thrombus in the proximal and mid cephalic vein. 2. Deep venous system is otherwise patent. 3. Heterogeneous hypoechoic collection along the right shoulder which could represent a hematoma and /or seroma. Electronically signed by: Jose Maria MD 09/23/2018 2:14 PM EDT
[2018-09-23 14:18] LABS: Albumin 2.7 g/dL (3.4-5.0); Anion Gap 7 meq/L (5-15); Aspartate Aminotransferase 23 U/L (15-37); Blood Urea Nitrogen 20 mg/dL (7-18); Calcium 9.6 mg/dL (8.5-10.1); Carbon Dioxide 27.7 meq/L (21.0-32.0); Chloride 97 meq/L (98-107); Glomerular Filtration Rate 80 mL/min (>89); Glucose,Random 128 mg/dL (74-106); Magnesium 1.9 mg/dL (1.5-2.5); Sodium 132 meq/L (136-145)
[2018-09-23 14:19] LABS: Alanine Aminotransferase 26 U/L (12-78)
[2018-09-23 14:21] LABS: Alkaline Phosphatase 169 U/L (45-117); Total Protein 7.9 g/dL (6.4-8.2)
--- NOTE | 2018-09-23 14:31 | XR ---
EXAM DATE: 09/23/2018 2:29 PM EDT AGE/SEX: 58 years / Male INDICATIONS: Fever, short of breath, chest and back pain CLINICAL DATA: This is the patient's initial encounter. Patient reports that signs and symptoms have been present for 1 day and indicates a pain score of 8/10. MEDICAL/SURGICAL HISTORY: Hypertension. Diabetes. Gastroesophageal reflux disease. A-fib, os teomyelitis, sepsis . cardiac ablation COMPARISON: [facility], CHEST 1V SINGLE AP, 09/16/2018. . FINDINGS: A single AP view of the chest demonstrates the lungs to be symmetrically aerated without evidence of mass, infiltrate or effusion. The cardiomediastinal contours are unremarkable. Osseous structures a re intact. CONCLUSION: Negative examination. Electronically signed by: Rg Solis MD 09/23/2018 2:30 PM EDT
[2018-09-23] MEDS ORDERED: Bisacodyl 10 MG Supp RECTAL PRN (15:40)
[2018-09-23] MEDS ORDERED: CEFOXITIN IV.SIG SCH (15:45)
[2018-09-23] MEDS ORDERED: DEXTROSE IV.SIG SCH (15:45)
[2018-09-23] MEDS ORDERED: [UNRECOGNIZED DRUG - OTHER] IV.SIG SCH (15:45)
[2018-09-23] MEDS ORDERED: ISO OSM IV.SIG SCH (15:45)
[2018-09-23] MEDS ORDERED: TIGECYCLINE 50 MG IV.SIG SCH (15:45)
[2018-09-23] MEDS: dilTIAZem CD 240 MG Capsule PO SCH (16:59)
--- NOTE | 2018-09-23 18:07 | P.HP ---
History of Present Illness Service: Hospitalist Primary Care Physician: UNKNOWN Chief Complaint: PICC not working History of Present Illness: Patient is a 58-year-old male who has had multiple hospitalizations for infection. Past medical history includes hypertension, hyperlipidemia, GERD , A. fib, DM and L4-5 discitis. He was most recently discharged on 09/17/18 with a right upper arm PICC for outpatient IV antibiotic infusion. He returns to the ED today with a complaint of the PICC line not working and swelling and pain in that arm. He denies any fever or chills. No chest pain or shortness of breath. No nausea vomiting or diarrhea. He is a somewhat poor historian and is primarily focused on discussing his foot and back pain which are chronic issues. - Diagnosis (1) Antibiotic long-term use (2) Osteomyelitis (3) Diabetes (4) Abscess of hand, left (5) Mycobacterium abscessus infection (6) Malfunction of peripheral inserted central catheter Review of Systems All other systems reviewed negative except as stated in HPI PMFSH - History History Provided By: Patient, Medical Record - Medical History Medical History: Medical History (Last Reviewed 09/23/18 @ 17:44 by RAFA Dunlap) Amputated toe GERD (gastroesophageal reflux disease) Hyperlipidemia Afib Back pain Diabetes Hypertension Osteomyelitis - Surgical History Surgical History: Surgical History (Last Reviewed 09/23/18 @ 17:44 by RAFA Dunlap) H/O foot surgery - Family History Family History: Family History (Last Reviewed 09/23/18 @ 17:44 by RAFA Dunlap) Other Coronary artery disease - Social History I have reviewed the patient's Social History: Yes - Tobacco History Second Hand Smoke Exposure: No Smoking Status: Never smoker - Alcohol History How Often Do You Have a Drink Containing Alcohol: Never - Substance Use History Substance History: No History of Abuse - Travel History Recent Travel in the [place] Within the Last 8 Weeks: No Recent Travel Out of the Country Within the Last 8 Weeks: No - Immunization History Tetanus Immunization: <5 Years Medications and Allergies Active Medications: Active Medications Acetaminophen (Tylenol) 650 mg PO Q4H PRN PRN Reason: Temp > 100.4 Al Hydroxide/Mg Hydroxide (Milk Of Magnesia Liq) 30 ml PO Q12H PRN PRN Reason: Mild Constipation Apixaban (Eliquis) 5 mg PO BID ROBBIE Baclofen (Lioresal) 10 mg PO Q8HR COUNTS INCLUDE 234 BEDS AT THE [facility] Bisacodyl (Dulcolax Supp) 10 mg RECTAL DAILY PRN PRN Reason: SEVERE CONSITIPATION Clarithromycin (Biaxin) 500 mg PO Q12H COUNTS INCLUDE 234 BEDS AT THE [facility] Diltiazem HCl (Cardizem Cd 24hr) 240 mg PO Q24H COUNTS INCLUDE 234 BEDS AT THE [facility] Last Admin: 09/23/18 16:59 Dose: 240 mg Furosemide (Lasix) 20 mg PO BID COUNTS INCLUDE 234 BEDS AT THE [facility] Sodium Chloride (Ns Inj) 1,000 mls @ 100 mls/hr IV.CONT .Q10H ROBBIE Tigecycline 50 mg/ Sodium (Chloride) 100 mls @ 200 mls/hr IV.SIG Q12H ROBBIE Cefoxitin Sodium 2 gm/ Sodium (Chloride) 100 mls @ 200 mls/hr IV.SIG Q8H COUNTS INCLUDE 234 BEDS AT THE [facility] Insulin Detemir (Levemir Inj) 50 unit SQ BID COUNTS INCLUDE 234 BEDS AT THE [facility] Lactulose (Lactulose Liq) 30 ml PO DAILY PRN PRN Reason: SEVERE CONSITIPATION Meloxicam (Mobic) 7.5 mg PO Q12H COUNTS INCLUDE 234 BEDS AT THE [facility] Ondansetron HCl (Zofran Inj) 4 mg IV.PUSH Q6H PRN PRN Reason: NAUSEA OR VOMITING Oxycodone HCl (Roxicodone) 30 mg PO Q4H PRN PRN Reason: PAIN 1-10 Last Admin: 09/23/18 16:59 Dose: 30 mg Pantoprazole Sodium (Protonix) 40 mg PO DAILY COUNTS INCLUDE 234 BEDS AT THE [facility] Ramipril (Altace) 2.5 mg PO DAILY COUNTS INCLUDE 234 BEDS AT THE [facility] Senna/Docusate Sodium (Aliyah-Colace) 1 tab PO BID COUNTS INCLUDE 234 BEDS AT THE [facility] Sennosides (Senokot) 17.2 mg PO Q12H PRN PRN Reason: Moderate Constipation Allergies Allergy/AdvReac Type Severity Reaction Status Date / Time No Known Drug Allergies Allergy none Verified 08/06/18 15:59 *MDRO Multi-Drug Resistant AdvReac Unknown MRSA Uncoded 06/16/17 16:34 Organism Home Medications Medication Instructions Recorded Confirmed Type apixaban [Eliquis] 5 mg PO BID 06/09/18 09/23/18 History diltiazem HCl 240 mg PO DAILY 06/09/18 09/23/18 History furosemide 20 mg PO BID 06/09/18 09/23/18 History insulin glargine [Lantus Solostar 50 unit SUB-Q BID 06/09/18 09/23/18 History U-100 Insulin] pantoprazole [Protonix] 40 mg PO DAILY 06/09/18 09/23/18 History ramipril 2.5 mg PO DAILY 06/09/18 09/23/18 History oxycodone 30 mg PO Q4H PRN 07/22/18 09/23/18 History cefoxitin in dextrose, iso-osm 2 g IV Q8H 09/23/18 09/23/18 History tigecycline [Tygacil] 50 mg IV Q12H 09/23/18 09/23/18 History Exam Vital signs: Vital Signs 09/23/18 13:22 09/23/18 13:56 09/23/18 15:30 Temperature 98 F Pulse Rate 84 74 Respiratory Rate 18 18 Blood Pressure 98/61 L 105/66 Pulse Oximetry 100 98 100 09/23/18 16:15 09/23/18 16:52 Temperature 98.0 F Pulse Rate 70 71 Respiratory Rate 18 19 Blood Pressure 112/57 L 102/59 L Pulse Oximetry 100 Intake & Output 09/22/18 09/23/18 09/23/18 18:59 06:59 18:59 Intake Total 100 / 100 Balance 100 / 100 Weight 80.7 kg Intake: IV 100 / 100 Tygacil Inj 100 MG In NS Inj 100 / 100 100 ML @ 200 mls/hr IV.SIG ONCE ONE Rx#:[id number] Narrative: GENERAL: Well-nourished, well-developed adult male in no obvious distress. SKIN: Warm and dry. Minimal redness in right upper arm surrounding prior PICC site. Tender. Fingers warm and well perfused. HEAD: Atraumatic. Normocephalic. CARDIOVASCULAR: Regular rate and rhythm. RESPIRATORY: No accessory muscle use. Clear to auscultation. Breath sounds equal bilaterally. GASTROINTESTINAL: Abdomen soft, non-tender, non-distended. Positive bowel sounds. MUSCULOSKELETAL: Extremities without clubbing, cyanosis, or edema. No obvious deformities. NEUROLOGICAL: Awake and alert. No obvious cranial nerve deficits. Motor grossly within normal limits. Normal speech. Results - Labs CBC & Chem 7: 09/23/18 13:50 09/23/18 13:50 Labs: Laboratory Results - last 24 hr 09/23/18 09/23/18 09/23/18 13:50 13:50 13:50 WBC 21.5 H RBC 4.30 L Hgb 11.1 L Hct 33.2 L MCV 77.2 L MCH 25.9 L MCHC 33.5 RDW 17.2 Plt Count 409 MPV 6.4 L Neut % (Auto) 86.0 H Lymph % (Auto) 6.3 L Mcdonough % (Auto) 5.9 Eos % (Auto) 1.1 Baso % (Auto) 0.7 Neut # (Auto) 18.5 H Lymph # (Auto) 1.3 Mcdonough # (Auto) 1.3 H Eos # (Auto) 0.2 Baso # (Auto) 0.1 WBC Differential . Differential Comment Auto diff final PT 11.0 INR 1.1 APTT 31.3 H Sodium 132 L Potassium 4.0 Chloride 97 L Carbon Dioxide 27.7 Anion Gap 7 BUN 20 H Creatinine 0.96 Estimated GFR 80 L POC Glucose Random Glucose 128 H Calcium 9.6 Magnesium 1.9 Total Bilirubin 0.4 AST 23 ALT 26 Alkaline Phosphatase 169 H Total Protein 7.9 D Albumin 2.7 L 09/23/18 17:02 WBC RBC Hgb Hct MCV MCH MCHC RDW Plt Count MPV Neut % (Auto) Lymph % (Auto) Mcdonough % (Auto) Eos % (Auto) Baso % (Auto) Neut # (Auto) Lymph # (Auto) Mcdonough # (Auto) Eos # (Auto) Baso # (Auto) WBC Differential Differential Comment PT INR APTT Sodium Potassium Chloride Carbon Dioxide Anion Gap BUN Creatinine Estimated GFR POC Glucose 241 H Random Glucose Calcium Magnesium Total Bilirubin AST ALT Alkaline Phosphatase Total Protein Albumin - Imaging Impressions Chest X-Ray 09/23/18 13:30 CONCLUSION: Negative examination. Venous Doppler Study 09/23/18 13:35 CONCLUSION: 1. Occlusive thrombus in the proximal and mid cephalic vein. 2. Deep venous system is otherwise patent. 3. Heterogeneous hypoechoic collection along the right shoulder which could represent a hematoma and/or seroma. Caprini VTE Risk Assessment Caprini VTE Risk Assessment: Moderate/High Risk (score >= 2) Caprini Risk Assessment Model: Point Value = 1 Point Value = 2 Point Value = 3 Point Value = 5 Age 41-60 Minor surgery BMI > 25 kg/m2 Swollen legs Varicose veins or History of unexplained or recurrent spontaneous Oral contraceptives or hormone replacement Sepsis (< 1 month) Serious lung disease, including pneumonia (< 1 month) Abnormal pulmonary function Acute myocardial infarction Congestive heart failure (< 1 month) History of inflammatory bowel disease Medical patient at bed rest Age 61-74 Arthroscopic surgery Major open surgery (> 45 min) Laparoscopic surgery (> 45 min) Malignancy Confined to bed (> 72 hours) Immobilizing plaster cast Central venous access Age >= 75 History of VTE Family history of VTE Factor V Leiden Prothrombin [id number] Lupus anticoagulant Anticardiolipin antibodies Elevated serum homocysteine Heparin-induced thrombocytopenia Other congenital or acquired thrombophilia Stroke (< 1 month) Elective arthroplasty Hip, pelvis, or leg fracture Acute spinal cord injury (< 1 month) Prophylaxis Regimen: Total Risk Factor Score Risk Level Prophylaxis Regimen 0-1 Low Early ambulation 2 Moderate Order ONE of the following: *Sequential Compression Device (SCD) *Heparin 5000 units SQ BID 3-4 Higher Order ONE of the following medications: *Heparin 5000 units SQ TID *Enoxaparin/Lovenox 40 mg SQ daily (WT < 150 kg, CrCl > 30 mL/min) *Enoxaparin/Lovenox 30 mg SQ daily (WT < 150 kg, CrCl > 10-29 mL/min) *Enoxaparin/Lovenox 30 mg SQ BID (WT < 150 kg, CrCl > 30 mL/min) AND/OR *Sequential Compression Device (SCD) 5 or more Highest Order ONE of the following medications: *Heparin 5000 units SQ TID (Preferred with Epidurals) *Enoxaparin/Lovenox 40 mg SQ daily (WT < 150 kg, CrCl > 30 mL/min) *Enoxaparin/Lovenox 30 mg SQ daily (WT < 150 kg, CrCl > 10-29 mL/min) *Enoxaparin/Lovenox 30 mg SQ BID (WT < 150 kg, CrCl > 30 mL/min) AND *Sequential Compression Device (SCD) Assessment and Plan - Assessment (1) Antibiotic long-term use Code(s): Z79.2 - nursing home (current) use of antibiotics Status: Acute (2) Osteomyelitis Code(s): M86.9 - Osteomyelitis, unspecified Status: Acute (3) Diabetes Code(s): E11.9 - Type 2 diabetes mellitus without complications Status: Chronic (4) Abscess of hand, left Code(s): L02.512 - Cutaneous abscess of left hand Status: Acute (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 fib, and DM, with recent hospitalization for lumbar spine discitis currently on outpatient IV abx via PICC for OM, presented with complaint of clogged PICC line. Nonfunctioning PICC -PICC removed; new consult to IR placed -Nonoccluding thrombus; supportive care -Continue scheduled IV antibiotics Lumbar Discitis/Osteomyelitis -MRI from 08/30/2018 showed epidural abscess causing regional stenosis at L4-L5 with extension beyond vertebral body -Neurosurgery recommended conservative management with IV antibiotics, sx only for bladder or extremity symptoms -Complete 8 weeks of PO Biaxin started on 08/27, IV Tygacil and Cefoxitin cont. until 10/04 per ID Supportive tenosynovitis of flexor tendon of left hand -s/p Exploration, wash, repair of wound dehiscence, left palm/ring finger on -s/p ABX as above Chronic Pain -History of chronic pain with consistent Rx for oxycodone HCL 30 mg 3 times daily; most recent being filled 08/17/18 for #100 -We will control pain while hospitalized based on outpatient regimen; no discharge with pain medications as he needs to be followed by pain management DVT prophylaxis: SCDs for now; will consider chemical prophylaxis after evaluated by IR Discharge planning: Will need outpatient IV antibiotic E-FORCSE Prescription Drug Monitoring Database has been queried and verified prior to prescribing the controlled substance. Acute pain exception: This patient has normal, predicted, physiological, and time limited response to an adverse mechanical stimulus associated with surgery , trauma, or acute illness as described in my notes. There is a lack of alternative treatment options other than to include the prescribed narcotic treatment for this condition. (2) Osteomyelitis Qualifiers: Osteomyelitis type: unspecified type Osteomyelitis location: unspecified site Qualified Code(s): M86.9 - Osteomyelitis, unspecified (6) Malfunction of peripheral inserted central catheter Qualifiers: Encounter type: initial encounter Qualified Code(s): T82.598A - Other mechanical complication of other cardiac and vascular devices and implants, initial encounter
[2018-09-23] MEDS: Meloxicam 7.5 MG Tablet PO SCH (19:23)
[2018-09-23] MEDS ORDERED: Dextrose 50% in Water 50 ML Vial IV.PUSH PRN (20:04)
--- NOTE | 2018-09-23 20:15 | P.PN ---
Subjective Interval history: left hand surgery follow up patient had closure of wound dehiscence left ring finger 10 days ago admitted for worsening back pain and blocked PICC line Physical Exam Vital signs: Vital Signs 09/23/18 13:22 09/23/18 13:56 09/23/18 15:30 Temperature 98 F Pulse Rate 84 74 Respiratory Rate 18 18 Blood Pressure 98/61 L 105/66 Pulse Oximetry 100 98 100 09/23/18 16:15 09/23/18 16:52 09/23/18 17:30 Temperature 98.0 F Pulse Rate 70 71 Respiratory Rate 18 19 16 Blood Pressure 112/57 L 102/59 L Pulse Oximetry 100 Intake & Output 09/23/18 09/23/18 09/24/18 06:59 18:59 06:59 Intake Total 200 / 200 Balance 200 / 200 Weight 80.7 kg Intake: IV 200 / 200 Tygacil Inj 100 MG In NS Inj 100 / 100 100 ML @ 200 mls/hr IV.SIG ONCE ONE Rx#:[id number] Mefoxin Inj 2 GM In NS Inj 100 100 / 100 ML @ 200 mls/hr IV.SIG ONCE ONE Rx#:[id number] Narrative: left hand: intact dressing mild dehiscence less than 0.5 cm noted with exposed tendon no drainage stiffness of the ring finger noted Results - Labs CBC & Chem 7: 09/23/18 13:50 09/23/18 13:50 Laboratory Results - last 24 hr 09/23/18 09/23/18 09/23/18 13:50 13:50 13:50 WBC 21.5 H RBC 4.30 L Hgb 11.1 L Hct 33.2 L MCV 77.2 L MCH 25.9 L MCHC 33.5 RDW 17.2 Plt Count 409 MPV 6.4 L Neut % (Auto) 86.0 H Lymph % (Auto) 6.3 L Richardson % (Auto) 5.9 Eos % (Auto) 1.1 Baso % (Auto) 0.7 Neut # (Auto) 18.5 H Lymph # (Auto) 1.3 Richardson # (Auto) 1.3 H Eos # (Auto) 0.2 Baso # (Auto) 0.1 WBC Differential . Differential Comment Auto diff final PT 11.0 INR 1.1 APTT 31.3 H Sodium 132 L Potassium 4.0 Chloride 97 L Carbon Dioxide 27.7 Anion Gap 7 BUN 20 H Creatinine 0.96 Estimated GFR 80 L POC Glucose Random Glucose 128 H Calcium 9.6 Magnesium 1.9 Total Bilirubin 0.4 AST 23 ALT 26 Alkaline Phosphatase 169 H Total Protein 7.9 D Albumin 2.7 L 09/23/18 17:02 WBC RBC Hgb Hct MCV MCH MCHC RDW Plt Count MPV Neut % (Auto) Lymph % (Auto) Richardson % (Auto) Eos % (Auto) Baso % (Auto) Neut # (Auto) Lymph # (Auto) Richardson # (Auto) Eos # (Auto) Baso # (Auto) WBC Differential Differential Comment PT INR APTT Sodium Potassium Chloride Carbon Dioxide Anion Gap BUN Creatinine Estimated GFR POC Glucose 241 H Random Glucose Calcium Magnesium Total Bilirubin AST ALT Alkaline Phosphatase Total Protein Albumin - Imaging Impressions Chest X-Ray 09/23/18 13:30 CONCLUSION: Negative examination. Venous Doppler Study 09/23/18 13:35 CONCLUSION: 1. Occlusive thrombus in the proximal and mid cephalic vein. 2. Deep venous system is otherwise patent. 3. Heterogeneous hypoechoic collection along the right shoulder which could represent a hematoma and/or seroma. Assessment and Plan - Assessment (1) Suppurative tenosynovitis of flexor tendon of left hand Code(s): M65.142 - Other infective (teno)synovitis, left hand Status: Chronic - Plan 58 year old male s/p closure of wound dehiscence left hand/ring finger finger Plan: surrounding skin is cleaned with alcohol wipes mastisol and sterri stirps applied over the region dry dressing applied antibiotics based on ID recommendations hand surgery will follow
[2018-09-23] MEDS: Insulin Detemir Inj 1,000 UNIT/10 ML Vial SQ SCH (21:01)
[2018-09-23] MEDS: Furosemide 20 MG Tablet PO SCH (21:02)
[2018-09-23] MEDS: Insulin NovoLOG Aspart Correctional Sugar Inj SQ SCH (21:02)
[2018-09-23] MEDS: Senna/Docusate Sodium 8.6/50 MG Tablet PO SCH (21:02)
[2018-09-23] MEDS: Baclofen 10 MG Tablet PO SCH (21:02)
[2018-09-23] MEDS: Sod Chloride 0.9% Inj 1,000 ML IV.CONT SCH (21:17)
--- NOTE | 2018-09-23 21:27 | MB ---
cc: Wilfrido Morton MD DATE: 09/23/2018 REASON FOR CONSULTATION: Consult requested by hospitalist for evaluation of superficial thrombosis of the right upper extremity where he had a PICC line. HISTORY OF PRESENT ILLNESS: Tyron is a 58-year-old male. He has a history of osteomyelitis. He had a PICC line placed in the right upper extremity for IV antibiotic to be done as an outpatient. He had developed a L4-L5 diskitis and osteomyelitis. He noticed severe pain and swelling of the right upper extremity early this morning. He came into the emergency room. He had an venous Doppler ultrasound of the right upper extremity, which showed occlusive thrombus in the proximal and mid cephalic vein. The deep venous system is patent. The PICC line was removed. I have been asked to see the patient for evaluation of thrombosis. The patient noticed that the swelling and the pain is improving since the PICC line was removed earlier today. The order has been placed for him to have another PICC line tomorrow, according to the patient. Patient never had any history of thromboembolic disease in the past. PAST MEDICAL HISTORY: Gastroesophageal reflux disease, hyperlipidemia, atrial fibrillation, back pain, diabetes, hypertension, osteomyelitis, infection of the left hand and now he has osteomyelitis of the spine, according to the patient. PAST SURGICAL HISTORY: Foot surgery and left hand surgery. ALLERGIES: NONE TO ANY DRUGS. MEDICATIONS: Prior to coming to the hospital, 1. Eliquis. 2. Diltiazem. 3. Lasix. 4. Lantus. 5. Protonix. 6. Ramipril. 7. Oxycodone. 8. Cefoxitin, 9. Tygacil. FAMILY HISTORY: None for any thromboembolic disease. SOCIAL HISTORY: The patient does not smoke cigarettes and does not drink alcohol. PHYSICAL EXAMINATION: GENERAL: Reveals a well-developed, well-nourished white male, in no apparent distress. VITAL SIGNS: Temperature 98, heart rate is 71, blood pressure 102/59. HEENT: PERRLA. EOMI, anicteric. No oral lesions noted. NECK: No lymphadenopathy noted. LUNGS: Clear. No wheezing, rhonchi or rales. CARDIOVASCULAR: Irregularly irregular. ABDOMEN: Soft. EXTREMITIES: Tenderness noted in the right upper extremity with swelling. The PICC line has been removed. NEUROLOGIC: Awake, alert, oriented x3. SKIN: No significant lesions noted. ASSESSMENT: 1. Superficial thrombophlebitis of the right upper extremity due to the PICC line. No evidence of deep venous thrombosis. 2. Atrial fibrillation, on Eliquis. 3. Osteomyelitis, on chronic antibiotics. PLAN: I have reviewed his available records. I discussed with the patient regarding the management of superficial thrombophlebitis. This was due to the PICC line. The PICC line has already been removed. I expect the swelling will improve in the next few days. I recommend to use warm compresses and anti-inflammatory drugs if he starts having more pain. The patient is already on Eliquis for atrial fibrillation and it is my recommendation that should be continued. No additional hematology recommendation is required. Therefore, I will sign off and I will be available as needed. Please call us if you have any further questions. MD MARIBEL Hyde/trupti , 06:47 PM , 07:01 PM MTDD
[2018-09-24] MEDS: Ramipril 2.5 MG Capsule PO SCH ×2 (00:03→09:30)
[2018-09-24 00:18] LABS: Bacteria,Urine Rare /hpf; Bilirubin,Urine Negative (Negative); Clarity,Urine Hazy (Clear); Color,Urine Yellow (Yellw/Straw); Glucose,Urine (UA) 150 mg/dL (Negative); Hyaline Casts,Urine 1 /lpf (0-3); Leukocyte Esterase,Urine Negative (Negative); Mucus,Urine Few /lpf (Occasional); Nitrite,Urine Negative (Negative); Specific Gravity,Urine 1.019 (1.002-1.035); Squamous Epithelial Cell,Urine <1 /hpf (0-5)
[2018-09-24 00:19] LABS: Amphetamine Screen,Urine Neg (Neg); Barbiturate Screen,Urine Neg (Neg); Cannabinoid Screen,Urine Neg (Neg); Cocaine Screen,Urine Neg (Neg)
[2018-09-24 00:20] LABS: Opiate Screen,Urine Pos (Neg)
[2018-09-24] MEDS: Acetaminophen 325 MG Tablet PO PRN (02:04)
[2018-09-24] MEDS: Sod Chloride 0.9% Inj 1,000 ML IV.CONT SCH ×3 (02:05→21:20)
[2018-09-24] MEDS: Baclofen 10 MG Tablet PO SCH ×3 (05:26→21:20)
[2018-09-24] MEDS: Meloxicam 7.5 MG Tablet PO SCH ×2 (05:26→17:01)
[2018-09-24] MEDS: Insulin NovoLOG Aspart Correctional Sugar Inj SQ SCH ×4 (08:34→20:57)
[2018-09-24 08:48] LABS: Baso # (Auto) 0.1 th/mm3 (0.0-0.2); Baso % (Auto) 0.8 % (0.0-2.0); Eos # (Auto) 0.5 th/mm3 (0.0-0.4); Eos % (Auto) 3.7 % (0.0-4.0); Hemoglobin 9.4 gm/dL (13.0-17.0); Lymph % (Auto) 15.2 % (9.0-44.0); Mean Corpuscular HGB Conc 32.4 % (32.0-36.0); Mean Corpuscular Hemoglobin 25.2 pg (27.0-34.0); Mean Corpuscular Volume 77.9 fL (80.0-100.0); Mean Platelet Volume 6.4 fL (7.0-11.0); Mono # (Auto) 1.1 th/mm3 (0.0-0.9); Mono % (Auto) 8.4 % (0.0-8.0); Neut # (Auto) 9.7 th/mm3 (1.8-7.7); Neut % (Auto) 71.9 % (16.0-70.0); Platelet Count 357 th/mm3 (150-450); Red Blood Count 3.72 mil/mm3 (4.50-5.90); Red Cell Distribution Width 17.1 % (11.6-17.2); White Blood Count 13.5 th/mm3 (4.0-11.0)
[2018-09-24] MEDS: Furosemide 20 MG Tablet PO SCH ×2 (09:03→20:55)
[2018-09-24] MEDS: Senna/Docusate Sodium 8.6/50 MG Tablet PO SCH ×2 (09:04→20:55)
[2018-09-24 09:11] LABS: Alanine Aminotransferase 18 U/L (12-78); Alkaline Phosphatase 135 U/L (45-117); Anion Gap 7 meq/L (5-15); Aspartate Aminotransferase 13 U/L (15-37); Blood Urea Nitrogen 26 mg/dL (7-18); Calcium 8.5 mg/dL (8.5-10.1); Carbon Dioxide 25.9 meq/L (21.0-32.0); Chloride 105 meq/L (98-107); Glomerular Filtration Rate Greater Than 89 mL/min (>89); Sodium 138 meq/L (136-145); Total Protein 6.6 g/dL (6.4-8.2)
[2018-09-24 09:16] LABS: Glucose,Random 48 mg/dL (74-106)
[2018-09-24] MEDS: Insulin Detemir Inj 1,000 UNIT/10 ML Vial SQ SCH ×2 (10:52→20:57)
--- NOTE | 2018-09-24 14:54 | ECG ---
Date Performed: 09/23/2018 Time Performed: 14:57:29 PTAGE: 58 years EKG: Sinus rhythm Since the previous tracing, no significant change noted NORMAL ECG PREVIOUS TRACING : 09/12/2018 19.41 DOCTOR: Tobin Young Interpretating Date/Time 09/24/2018 14:49:31
[2018-09-24] MEDS: dilTIAZem CD 240 MG Capsule PO SCH (16:21)
--- NOTE | 2018-09-24 17:47 | P.PNIM ---
Subjective Interval history: Follow-up PICC line site phlebitis, osteomyelitis long-term antibiotic use, hypertension, hyperlipidemia, GERD, A. fib, DM and L4-5 discitis. Patient seen and examined laying in bed, family at bedside, complaint of right upper arm pain stated he has been on a long-term antibiotic use. And had a history of osteomyelitis started in his foot infection now had a problem with hurt his head however feeling better. Patient denies any headache or dizziness, denies any pain, chest pain or shortness of breath, denies any abdominal pain, nausea, vomiting, diarrhea or constipation. Patient denies any fever or chills. Patient stated just want to get better. Patient mentioned he has been doing his IV antibiotic at home. Physical Exam Vital signs: Vital Signs 09/23/18 20:00 09/24/18 00:00 09/24/18 02:00 Temperature 99.8 F H 101.1 F H 100.6 F H Pulse Rate 85 87 Respiratory Rate 18 18 Blood Pressure 139/64 109/61 Pulse Oximetry 99 98 09/24/18 04:00 09/24/18 07:15 09/24/18 08:00 Temperature 99.9 F H 98.6 F Pulse Rate 68 67 Respiratory Rate 17 14 Blood Pressure 108/61 109/56 L Pulse Oximetry 99 98 95 09/24/18 11:31 09/24/18 16:00 Temperature 98.4 F 98.3 F Pulse Rate 71 81 Respiratory Rate 14 16 Blood Pressure 120/80 118/62 Pulse Oximetry 95 Intake & Output 09/23/18 09/24/18 09/24/18 18:59 06:59 18:59 Intake Total 200 / 200 1200 / 1200 300 / 300 Output Total 1800 / 1800 Balance 200 / 200 -600 / -600 300 / 300 Weight 80.7 kg 89.9 kg Intake: IV 200 / 200 1200 / 1200 300 / 300 NS Inj 1,000 ML @ 100 mls/hr IV 1000 / 1000 .CONT .Q10H [facility] Rx#:[id number] Tygacil Inj 100 MG In NS Inj 100 / 100 100 ML @ 200 mls/hr IV.SIG ONCE ONE Rx#:[id number] Tygacil Inj 50 MG In NS Inj 100 100 / 100 100 / 100 ML @ 200 mls/hr IV.SIG Q12H [facility] Rx#:[id number] Mefoxin Inj 2 GM In NS Inj 100 100 / 100 100 / 100 200 / 200 ML @ 200 mls/hr IV.SIG Q8H [facility] Rx#:[id number] Output: Urine 1800 / 1800 Other: Weight On Admission 86.1 kg Narrative: GENERAL: [Well-developed, well-nourished, adult male in no apparent distress SKIN: Warm and dry. Right upper arm with redness and slight edema patient stated prior PICC line site. With tenderness to touch right radial pulse palpable left hand middle finger dressed dry and intact HEAD: Atraumatic. Normocephalic. EYES: Pupils equal and round. No scleral icterus. No injection or drainage. ENT: No nasal bleeding or discharge. Mucous membranes pink and moist. NECK: Trachea midline. No JVD. CARDIOVASCULAR: Regular rate and rhythm. RESPIRATORY: No accessory muscle use. Clear to auscultation. Breath sounds equal bilaterally. GASTROINTESTINAL: Abdomen obese soft, non-tender, nondistended. Hepatic and splenic margins not palpable. MUSCULOSKELETAL: Extremities without clubbing, cyanosis, or edema. No obvious deformities. NEUROLOGICAL: Awake and alert. No obvious cranial nerve deficits. Motor grossly within normal limits. Generalized weakness moving all 4 extremities normal speech. PSYCHIATRIC: Appropriate mood and affect; insight and judgment normal. Results - Labs CBC & Chem 7: 09/24/18 08:03 09/24/18 08:03 Laboratory Results - last 24 hr 09/23/18 09/23/18 09/23/18 20:33 23:45 23:45 WBC RBC Hgb Hct MCV MCH MCHC RDW Plt Count MPV Neut % (Auto) Lymph % (Auto) [place] % (Auto) Eos % (Auto) Baso % (Auto) Neut # (Auto) Lymph # (Auto) [place] # (Auto) Eos # (Auto) Baso # (Auto) WBC Differential Differential Comment Sodium Potassium Chloride Carbon Dioxide Anion Gap BUN Creatinine Estimated GFR POC Glucose 184 H Random Glucose Calcium Total Bilirubin AST ALT Alkaline Phosphatase Total Protein Albumin Urine Color Yellow Urine Clarity Hazy H Urine pH 6.0 Ur Specific [place] 1.019 Urine Protein Negative Urine Glucose (UA) 150 H Urine Ketones Negative Urine Occult Blood Negative Urine Nitrate Negative Urine Bilirubin Negative Urine Urobilinogen Less than 2 Ur Leukocyte Esterase Negative Urine RBC Less than 1 Urine WBC 4 Ur Squamous Epith Cells <1 Urine Bacteria Rare H Hyaline Casts 1 Urine Mucus Few H Micro UA Comment Culture not ind Ur Microscopic Review Not Reportable Urine Culture Comments Culture not ind Urine Opiates Screen Pos H Ur Barbiturates Screen Neg Ur Amphetamines Screen Neg U Benzodiazepines Scrn Neg Urine Cocaine Screen Neg U Cannabinoids Screen Neg 09/24/18 09/24/18 09/24/18 08:03 08:03 08:04 WBC 13.5 H RBC 3.72 L Hgb 9.4 L Hct 29.0 L MCV 77.9 L MCH 25.2 L MCHC 32.4 RDW 17.1 Plt Count 357 MPV 6.4 L Neut % (Auto) 71.9 H Lymph % (Auto) 15.2 [place] % (Auto) 8.4 H Eos % (Auto) 3.7 Baso % (Auto) 0.8 Neut # (Auto) 9.7 H Lymph # (Auto) 2.0 [place] # (Auto) 1.1 H Eos # (Auto) 0.5 H Baso # (Auto) 0.1 WBC Differential . Differential Comment Auto diff final Sodium 138 Potassium 4.0 Chloride 105 D Carbon Dioxide 25.9 Anion Gap 7 BUN 26 H Creatinine 0.62 Estimated GFR Greater than 89 POC Glucose 56 L Random Glucose 48 L* Calcium 8.5 D Total Bilirubin 0.3 AST 13 L ALT 18 Alkaline Phosphatase 135 H Total Protein 6.6 D Albumin 2.0 L D Urine Color Urine Clarity Urine pH Ur Specific [place] Urine Protein Urine Glucose (UA) Urine Ketones Urine Occult Blood Urine Nitrate Urine Bilirubin Urine Urobilinogen Ur Leukocyte Esterase Urine RBC Urine WBC Ur Squamous Epith Cells Urine Bacteria Hyaline Casts Urine Mucus Micro UA Comment Ur Microscopic Review Urine Culture Comments Urine Opiates Screen Ur Barbiturates Screen Ur Amphetamines Screen U Benzodiazepines Scrn Urine Cocaine Screen U Cannabinoids Screen 09/24/18 09/24/18 09/24/18 09:01 10:33 11:11 WBC RBC Hgb Hct MCV MCH MCHC RDW Plt Count MPV Neut % (Auto) Lymph % (Auto) [place] % (Auto) Eos % (Auto) Baso % (Auto) Neut # (Auto) Lymph # (Auto) [place] # (Auto) Eos # (Auto) Baso # (Auto) WBC Differential Differential Comment Sodium Potassium Chloride Carbon Dioxide Anion Gap BUN Creatinine Estimated GFR POC Glucose 82 126 H 137 H Random Glucose Calcium Total Bilirubin AST ALT Alkaline Phosphatase Total Protein Albumin Urine Color Urine Clarity Urine pH Ur Specific [place] Urine Protein Urine Glucose (UA) Urine Ketones Urine Occult Blood Urine Nitrate Urine Bilirubin Urine Urobilinogen Ur Leukocyte Esterase Urine RBC Urine WBC Ur Squamous Epith Cells Urine Bacteria Hyaline Casts Urine Mucus Micro UA Comment Ur Microscopic Review Urine Culture Comments Urine Opiates Screen Ur Barbiturates Screen Ur Amphetamines Screen U Benzodiazepines Scrn Urine Cocaine Screen U Cannabinoids Screen 09/24/18 16:14 WBC RBC Hgb Hct MCV MCH MCHC RDW Plt Count MPV Neut % (Auto) Lymph % (Auto) [place] % (Auto) Eos % (Auto) Baso % (Auto) Neut # (Auto) Lymph # (Auto) [place] # (Auto) Eos # (Auto) Baso # (Auto) WBC Differential Differential Comment Sodium Potassium Chloride Carbon Dioxide Anion Gap BUN Creatinine Estimated GFR POC Glucose 141 H Random Glucose Calcium Total Bilirubin AST ALT Alkaline Phosphatase Total Protein Albumin Urine Color Urine Clarity Urine pH Ur Specific [place] Urine Protein Urine Glucose (UA) Urine Ketones Urine Occult Blood Urine Nitrate Urine Bilirubin Urine Urobilinogen Ur Leukocyte Esterase Urine RBC Urine WBC Ur Squamous Epith Cells Urine Bacteria Hyaline Casts Urine Mucus Micro UA Comment Ur Microscopic Review Urine Culture Comments Urine Opiates Screen Ur Barbiturates Screen Ur Amphetamines Screen U Benzodiazepines Scrn Urine Cocaine Screen U Cannabinoids Screen Microbiology 09/23/18 13:55 Blood - Peripheral Aerobic Blood Culture - Preliminary No growth in 1 day 09/23/18 13:55 Blood - Peripheral Anaerobic Blood Culture - Preliminary No growth in 1 day 09/23/18 13:50 Blood - Peripheral Aerobic Blood Culture - Preliminary No growth in 1 day 09/23/18 13:50 Blood - Peripheral Anaerobic Blood Culture - Preliminary No growth in 1 day Assessment and Plan - Assessment (1) Antibiotic long-term use Code(s): Z79.2 - supervisor intermediates (current) use of antibiotics Status: Acute (2) Osteomyelitis Code(s): M86.9 - Osteomyelitis, unspecified Status: Acute (3) Diabetes Code(s): E11.9 - Type 2 diabetes mellitus without complications Status: Chronic (4) Abscess of hand, left Code(s): L02.512 - Cutaneous abscess of left hand Status: Acute (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 fib, and DM, with recent hospitalization for lumbar spine discitis currently on outpatient IV abx via PICC for OM, presented with complaint of clogged PICC line. Nonfunctioning PICC -PICC removed; new consult to IR placed -Nonoccluding thrombus; supportive care -Continue scheduled IV antibiotic -IR recommendation for midline placement as necessary Lumbar Discitis/Osteomyelitis/leukocytosis -MRI from 08/30/2018 showed epidural abscess causing regional stenosis at L4-L5 with extension beyond vertebral body -Neurosurgery recommended conservative management with IV antibiotics, sx only for bladder or extremity symptoms -Complete 8 weeks of PO Biaxin started on 08/27, IV Tygacil and Cefoxitin cont. until 10/04 per ID -ID consult appreciated recommendation -Monitor CBC and BMP Supportive tenosynovitis of flexor tendon of left hand -s/p Exploration, wash, repair of wound dehiscence, left palm/ring finger on -s/p ABX as above Chronic Pain -History of chronic pain with consistent Rx for oxycodone HCL 30 mg 3 times daily; most recent being filled 08/17/18 for #100 -We will control pain while hospitalized based on outpatient regimen; no discharge with pain medications as he needs to be followed by pain management Atrial fibrillation/hypertension -heart rate and blood pressure controlled -Continue Eliquis for anticoagulation -Continue diltiazem, ramipril and furosemide -Monitor heart rate and blood pressure DVT prophylaxis: On Eliquis Discharge planning: Will need outpatient IV antibiotic Code Status: Full code Discussed Condition With: Patient and nurse, charge nurse, MDR (2) Osteomyelitis Qualifiers: Osteomyelitis type: unspecified type Osteomyelitis location: unspecified site Qualified Code(s): M86.9 - Osteomyelitis, unspecified (6) Malfunction of peripheral inserted central catheter Qualifiers: Encounter type: initial encounter Qualified Code(s): T82.598A - Other mechanical complication of other cardiac and vascular devices and implants, initial encounter
[2018-09-25] MEDS: Meloxicam 7.5 MG Tablet PO SCH ×2 (05:57→18:17)
[2018-09-25] MEDS: Baclofen 10 MG Tablet PO SCH ×3 (05:57→21:47)
[2018-09-25 08:04] LABS: Baso # (Auto) 0.1 th/mm3 (0.0-0.2); Baso % (Auto) 0.8 % (0.0-2.0); Eos # (Auto) 0.3 th/mm3 (0.0-0.4); Eos % (Auto) 2.3 % (0.0-4.0); Hematocrit 28.3 % (39.0-51.0); Hemoglobin 9.5 gm/dL (13.0-17.0); Lymph # (Auto) 1.8 th/mm3 (1.0-4.8); Lymph % (Auto) 12.1 % (9.0-44.0); Mean Corpuscular HGB Conc 33.4 % (32.0-36.0); Mean Corpuscular Hemoglobin 25.8 pg (27.0-34.0); Mean Corpuscular Volume 77.2 fL (80.0-100.0); Mean Platelet Volume 6.6 fL (7.0-11.0); Mono # (Auto) 1.1 th/mm3 (0.0-0.9); Mono % (Auto) 7.2 % (0.0-8.0); Neut # (Auto) 11.4 th/mm3 (1.8-7.7); Neut % (Auto) 77.6 % (16.0-70.0); Platelet Count 408 th/mm3 (150-450); Red Blood Count 3.67 mil/mm3 (4.50-5.90); Red Cell Distribution Width 16.7 % (11.6-17.2); White Blood Count 14.7 th/mm3 (4.0-11.0)
[2018-09-25] MEDS: Sod Chloride 0.9% Inj 1,000 ML IV.CONT SCH ×2 (08:05→18:23)
[2018-09-25 08:27] LABS: Anion Gap 9 meq/L (5-15); Blood Urea Nitrogen 23 mg/dL (7-18); Calcium 8.7 mg/dL (8.5-10.1); Carbon Dioxide 27.2 meq/L (21.0-32.0); Chloride 96 meq/L (98-107); Glomerular Filtration Rate Greater Than 89 mL/min (>89); Glucose,Random 157 mg/dL (74-106); Potassium 4.2 meq/L (3.5-5.1); Sodium 132 meq/L (136-145)
[2018-09-25] MEDS: Ramipril 2.5 MG Capsule PO SCH (09:34)
[2018-09-25] MEDS: Furosemide 20 MG Tablet PO SCH ×2 (09:35→21:47)
[2018-09-25] MEDS: Senna/Docusate Sodium 8.6/50 MG Tablet PO SCH ×2 (09:35→21:58)
[2018-09-25] MEDS: Insulin NovoLOG Aspart Correctional Sugar Inj SQ SCH ×4 (09:37→21:52)
[2018-09-25] MEDS: Insulin Detemir Inj 1,000 UNIT/10 ML Vial SQ SCH ×2 (09:37→21:53)
--- NOTE | 2018-09-25 14:48 | MB ---
cc: Brandon Ignacio MD DATE: 09/25/2018 REQUESTING PHYSICIAN: RAFA Leyva/Dr. Jay. REASON FOR CONSULTATION: Osteomyelitis, antibiotic long-term use. Suppurative tenosynovitis. Wound dehiscence. The patient with a known history of diskitis. HISTORY OF PRESENT ILLNESS: This is a 58-year-old white male who has a known history of diskitis and osteomyelitis of the lumbar spine. He underwent aspiration from the lumbar spine back in July 2018 and cultures were negative. 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 He had returned with severe back pain despite strong antibiotic treatment with vancomycin prior to the back biopsy and he was not responding to the vancomycin. It was elected to focus treatment of the back for the same organism recovered from the hand and he was put on antibiotics IV and was subsequently discharged from the hospital last on 09/18/2018 with a PICC line. The patient was administered antibiotics at home. He states that when he was doing the antibiotic, he developed some pain in his right upper extremity where the PICC line is located and the PICC line was not working. He came to the emergency department for that purpose. In the emergency department he had a temperature of 101. He denied chills, nausea, vomiting, shortness of breath. He reports that he was having severe pain on a 10/10 scale. He also noted that he was having pain in the lower back, as well. The patient was admitted to the hospital and started back on the antibiotics. He was receiving tigecycline t.i.d. and cefoxitin in addition to p.o. Biaxin. He tells me that his back feels better today and also felt better yesterday. He states that he was able to walk to the bathroom, which he could not do before without very severe pain. Blood cultures were taken on admission and have no growth in 2 days. Doppler ultrasound of the upper extremity shows occlusive thrombus in the proximal and mid cephalic vein on the right upper extremity. He has no other complaints. 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 ALLERGIES: NO KNOWN DRUG ALLERGIES. MEDICATIONS: 1. Tigecycline. 2. Cefoxitin,. 3. Biaxin. 4. Baclofen. 5. Eliquis. 6. Lasix. 7. Insulin. 8. Mobic. 9. Oxycodone. 10. Protonix. SOCIAL HISTORY: No tobacco, no alcohol, no illicit drugs. FAMILY HISTORY: Noncontributory. REVIEW OF SYSTEMS: All systems have been reviewed. Pertinent features mentioned in history of present illness. PHYSICAL EXAMINATION: GENERAL: This is a thin, well-developed male in no acute distress. VITAL SIGNS: Temperature 98.5, blood pressure 132/61, respirations 18, heart rate 76. HEENT: Head atraumatic. Extraocular movements grossly intact. Pupils reactive to light, without icterus. Oropharynx: Moist mucosa. No visible lesions. No thrush. NECK: Supple without adenopathy or swelling. LUNGS: Clear breath sounds bilaterally. HEART: Regular S1, S2, without murmurs, rubs or gallops. ABDOMEN: Bowel sounds present; flat, soft, no tenderness appreciated. RECTAL: Not performed. EXTREMITIES: The right upper extremity has erythema at the anterior humerus. This is a site that the PICC line was located. There is a cord above the PICC line entry site and area is warm and erythematous and firm. No blisters. The other extremities have no clubbing, cyanosis or edema. SKIN: No diffuse rash. NEUROLOGIC: Nonfocal. PSYCHIATRIC: Patient is calm and cooperative. LABORATORY DATA: WBC 14.7, platelet count 408, 77% neutrophils. WBC on 09/23/2018 was 21.5. Creatinine 0.66. Estimated GFR 89. Sodium 132. ASSESSMENT AND PLAN: 1. Catheter related infection from a PICC line. 2. Thrombus of the right upper extremity related to PICC line. 3. Known diskitis and osteomyelitis of the lumbar spine, currently being treated with IV antibiotics. 4. 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 5. Chronic pain. The patient states that his back pain is somewhat improved today. Hopefully, that swill continue and may indicate response to the treatment which he has been receiving. RECOMMENDATIONS: Continue the current treatment for osteomyelitis of the back. The patient will continue treatment until 10/04/2018 and was due to have labs including sedimentation rate, BMP and CBC with differential to continue followup. He is also due to continue with Biaxin 500 mg p.o. b.i.d. until 10/04/2018. At some point, he may need to have a repeat scan of the back with MRI to assess the status of his diskitis/osteomyelitis. He did have a paracentral epidural abscess on the scan that was performed on 09/12/2018. I also recommend repeating the MRI of the lumbar spine while he is in the hospital to assess further response and also monitor the sedimentation rate as well. He will need access for continued IV antibiotics and we may have to put in another PICC line or address some other access and maybe even do a central line until the completion of the treatment if it is felt that a PICC line is not safe. Thank you for this consultation. I will monitor the patient's progress along with you. MD MURRAY Peacock/jayna , 01:32 PM , 01:50 PM SETH
--- NOTE | 2018-09-25 14:54 | P.DCO ---
- Diagnosis (1) Osteomyelitis Status: Acute (2) Diabetes Status: Chronic (3) Strain of lumbar region Status: Acute (4) Lumbar radiculopathy Status: Acute (5) Suppurative tenosynovitis of flexor tendon of left hand Status: Chronic (6) Abscess of hand, left Status: Acute - Home Health Nursing Order: Medical education, Signs/symptoms of disease process, Diabetic education , Wound care and dressing changes, Nursing assessment with vital signs, IV medication administration - Case Management Consult Yes - Certification I have seen patient Tyron Sandoval on 09/25/18. My clinical findings support the need for the requested home health care services because: Limited mobility due to disease progression, Deconditioned with increased weakness, Medication compliance is questionable, Limited ability to care for self, Infection with risk of complications, Injectable medication education/ administration I certify that my clinical findings support that this patient is homebound because: Impaired cognitive ability/safety, Unsteady gait/balance, Unsafe to leave home unassisted (1) Osteomyelitis Qualifiers: Osteomyelitis type: unspecified type Osteomyelitis location: unspecified site Qualified Code(s): M86.9 - Osteomyelitis, unspecified (3) Strain of lumbar region Qualifiers: Encounter type: initial encounter Qualified Code(s): S39.012A - Strain of muscle, fascia and tendon of lower back, initial encounter
--- NOTE | 2018-09-25 16:06 | P.PNIM ---
Subjective Interval history: Follow-up PICC line site phlebitis, osteomyelitis long-term antibiotic use, hypertension, hyperlipidemia, GERD, A. fib, DM and L4-5 discitis. Patient seen and examined, complains of food and diet, stated he loose weight since his admission here. Patient states that requested for Ensure breakfast lunch and dinner. Patient complains of rash in his back, and the sacral wound. Patient complained of discomfort in his sacrum discussed to be off his bottom and be out of bed more often. Patient denies any chest pain pain or shortness of breath, denies any headache or dizziness, denies any abdominal pain, nausea, vomiting, diarrhea or constipation. Patient denies any fever or chills. Next weight reviewed on admission 86.1 kg current weight 89.9 Physical Exam Vital signs: Vital Signs 09/24/18 16:00 09/24/18 19:01 09/24/18 20:00 Temperature 98.3 F 98.5 F Pulse Rate 81 90 Respiratory Rate 16 18 18 Blood Pressure 118/62 120/61 Pulse Oximetry 95 97 09/25/18 00:05 09/25/18 01:51 09/25/18 07:42 Temperature 99.5 F 98.8 F Pulse Rate 82 77 Respiratory Rate 16 18 18 Blood Pressure 118/62 120/63 Pulse Oximetry 99 09/25/18 11:21 Temperature 98.5 F Pulse Rate 76 Respiratory Rate 18 Blood Pressure 132/61 Pulse Oximetry Intake & Output 09/24/18 09/25/18 09/25/18 18:59 06:59 18:59 Intake Total 2500 / 2500 680 / 680 600 / 600 Output Total 1000 / 1000 Balance 2500 / 2500 -320 / -320 600 / 600 Weight 89.9 kg Intake: IV 300 / 300 200 / 200 600 / 600 NS Inj 1,000 ML @ 100 mls/hr IV 500 / 500 .CONT .Q10H ROBBIE Rx#:[id number] Tygacil Inj 50 MG In NS Inj 100 100 / 100 100 / 100 ML @ 200 mls/hr IV.SIG Q12H ROBBIE Rx#:[id number] Mefoxin Inj 2 GM In NS Inj 100 200 / 200 100 / 100 100 / 100 ML @ 200 mls/hr IV.SIG Q8H ROBBIE Rx#:[id number] Oral 2200 / 2200 480 / 480 Output: Urine 1000 / 1000 Other: # Voids 5 Date of Last Bowel Movement 09/24/18 09/24/18 Narrative: GENERAL: [Well-developed, well-nourished, adult male in no apparent distress SKIN: Warm and dry. Right upper arm with redness and slight edema patient stated prior PICC line site. With tenderness to touch right radial pulse palpable left hand middle finger dressed dry and intact. Multiple prickly red rash in the back. Sacral excoriation HEAD: Atraumatic. Normocephalic. EYES: Pupils equal and round. No scleral icterus. No injection or drainage. ENT: No nasal bleeding or discharge. Mucous membranes pink and moist. NECK: Trachea midline. No JVD. CARDIOVASCULAR: Regular rate and rhythm. RESPIRATORY: No accessory muscle use. Clear to auscultation. Breath sounds equal bilaterally. GASTROINTESTINAL: Abdomen obese soft, non-tender, nondistended. Hepatic and splenic margins not palpable. MUSCULOSKELETAL: Extremities without clubbing, cyanosis, or edema. Right foot deformity. NEUROLOGICAL: Awake and alert. No obvious cranial nerve deficits. Motor grossly within normal limits. Generalized weakness moving all 4 extremities normal speech. PSYCHIATRIC: Appropriate mood and affect; insight and judgment normal. Results - Labs CBC & Chem 7: 09/25/18 07:10 09/25/18 07:10 Laboratory Results - last 24 hr 09/24/18 09/24/18 09/25/18 16:14 20:54 07:10 WBC 14.7 H RBC 3.67 L Hgb 9.5 L Hct 28.3 L MCV 77.2 L MCH 25.8 L MCHC 33.4 RDW 16.7 Plt Count 408 MPV 6.6 L Neut % (Auto) 77.6 H Lymph % (Auto) 12.1 [place] % (Auto) 7.2 Eos % (Auto) 2.3 Baso % (Auto) 0.8 Neut # (Auto) 11.4 H Lymph # (Auto) 1.8 [place] # (Auto) 1.1 H Eos # (Auto) 0.3 Baso # (Auto) 0.1 WBC Differential . Differential Comment Auto diff final Sodium Potassium Chloride Carbon Dioxide Anion Gap BUN Creatinine Estimated GFR POC Glucose 141 H 125 H Random Glucose Calcium 09/25/18 09/25/18 09/25/18 07:10 07:36 12:01 WBC RBC Hgb Hct MCV MCH MCHC RDW Plt Count MPV Neut % (Auto) Lymph % (Auto) [place] % (Auto) Eos % (Auto) Baso % (Auto) Neut # (Auto) Lymph # (Auto) [place] # (Auto) Eos # (Auto) Baso # (Auto) WBC Differential Differential Comment Sodium 132 L Potassium 4.2 Chloride 96 L D Carbon Dioxide 27.2 Anion Gap 9 BUN 23 H Creatinine 0.66 Estimated GFR Greater than 89 POC Glucose 173 H 181 H Random Glucose 157 H D Calcium 8.7 Microbiology 09/23/18 13:55 Blood - Peripheral Aerobic Blood Culture - Preliminary No growth in 2 days 09/23/18 13:55 Blood - Peripheral Anaerobic Blood Culture - Preliminary No growth in 2 days 09/23/18 13:50 Blood - Peripheral Aerobic Blood Culture - Preliminary No growth in 2 days 09/23/18 13:50 Blood - Peripheral Anaerobic Blood Culture - Preliminary No growth in 2 days Assessment and Plan - Assessment (1) Osteomyelitis Code(s): M86.9 - Osteomyelitis, unspecified Status: Acute (2) Diabetes Code(s): E11.9 - Type 2 diabetes mellitus without complications Status: Chronic (3) Strain of lumbar region Code(s): S39.012A - Strain of muscle, fascia and tendon of lower back, initial encounter Status: Acute (4) Lumbar radiculopathy Code(s): M54.16 - Radiculopathy, lumbar region Status: Acute (5) Suppurative tenosynovitis of flexor tendon of left hand Code(s): M65.142 - Other infective (teno)synovitis, left hand Status: Chronic (6) Abscess of hand, left Code(s): L02.512 - Cutaneous abscess of left hand Status: Acute (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 fib, and DM, with recent hospitalization for lumbar spine discitis currently on outpatient IV abx via PICC for OM, presented with complaint of clogged PICC line. Nonfunctioning PICC -PICC removed; new consult to IR placed -Nonoccluding thrombus; supportive care -Continue scheduled IV antibiotic -IR recommendation for low IV or midline placement as necessary Lumbar Discitis/Osteomyelitis/leukocytosis -MRI from 08/30/2018 showed epidural abscess causing regional stenosis at L4-L5 with extension beyond vertebral body -Neurosurgery recommended conservative management with IV antibiotics, sx only for bladder or extremity symptoms -Complete 8 weeks of PO Biaxin started on 08/27, IV Tygacil and Cefoxitin cont. until 10/04 per ID -ID consult appreciated recommendation -Monitor CBC and BMP Supportive tenosynovitis of flexor tendon of left hand -s/p Exploration, wash, repair of wound dehiscence, left palm/ring finger on -s/p ABX as above Chronic Pain -History of chronic pain with consistent Rx for oxycodone HCL 30 mg 3 times daily; most recent being filled 08/17/18 for #100 -We will control pain while hospitalized based on outpatient regimen; no discharge with pain medications as he needs to be followed by pain management Atrial fibrillation/hypertension -heart rate and blood pressure controlled -Continue Eliquis for anticoagulation -Continue diltiazem, ramipril and furosemide -Monitor heart rate and blood pressure Diabetes mellitus type 2 Monitor blood sugars before meals and at bedtime -Cover with insulin sliding scale -Continue Levemir -Diabetic diet DVT prophylaxis: Continue on Eliquis Discharge planning: Will need outpatient IV antibiotic Code Status: Full code Discussed Condition With: Patient and nurse MDR Dr. Ignacio (1) Osteomyelitis Qualifiers: Osteomyelitis type: unspecified type Osteomyelitis location: unspecified site Qualified Code(s): M86.9 - Osteomyelitis, unspecified (3) Strain of lumbar region Qualifiers: Encounter type: initial encounter Qualified Code(s): S39.012A - Strain of muscle, fascia and tendon of lower back, initial encounter (8) Malfunction of peripheral inserted central catheter Qualifiers: Encounter type: initial encounter Qualified Code(s): T82.598A - Other mechanical complication of other cardiac and vascular devices and implants, initial encounter
[2018-09-25] MEDS: dilTIAZem CD 240 MG Capsule PO SCH (16:19)
[2018-09-25] MEDS ORDERED: Gadobutrol PF 10 MMOL/10 ML Vial (for RAD) IV.SIG ONE (17:29)
--- NOTE | 2018-09-25 17:48 | MR ---
EXAM DATE: 09/25/2018 5:32 PM EDT AGE/SEX: 58 years / Male INDICATIONS: Osteomyelitis. CLINICAL DATA: This is the patient's subsequent encounter. Patient reports that signs and symptoms h ave been present for 1 month and indicates a pain score of 5/10. MEDICAL/SURGICAL HISTORY: Hypertension. Diabetes mellitus type II. . Toe amputation. [place] [facility] [place] & [place] 09/12/2018. . TECHNIQUE: Multiplanar, multisequence MRI examination of the lumbar spine was performed without and with 9 ml Gadavist (gadobutrol) contrast as a single exam dose. FINDINGS: The most caudal-appearing lumbar vertebra is numbered as L5. VERTEBRAE: There is abnormal bone marrow edema and enhancement throughout the L4 and L5 vertebral ar dies and there is destruction of the endplates with increased T2 signal and nonenhancing fluid within the disc space. Mild endplate edema is also present at the inferior endplate of L4 with mild endplat e irregularity. There is minimal endplate enhancement. There is dextroscoliosis. No anterolisthesis o r retrolisthesis is present. CONUS: Normal level and configuration. T12-L1: No disc herniation, canal stenosis, or neural foraminal stenosis. L1-L2: There is a diffuse disc bulge with small right paracentral disc protrusion. However, no signi ficant spinal canal stenosis or neural foraminal narrowing is present. L2-L3: Decreased disc height with mild increased T2 signal within the disc space. There is diffuse p osterior disc osteophyte complex, largest in a right paracentral location effacing the right lateral recess. No significant spinal canal stenosis or neural foraminal narrowing is present. L3-L4: There is a mild diffuse disc bulge. No spinal canal stenosis or neural foraminal narrowing is present. L4-L5: There is diffuse posterior disc osteophyte complex with abnormal material in the anterior epi dural space posterior to the L4 and L5 vertebral bodies. This appears to enhance and may represent ep idural abscess. It effaces the lateral recess and moderately narrows the spinal canal. There is moder ate to severe facet hypertrophy. There is abnormal enhancement of the vertebral bodies and right pedi gagan at L5 as well as the right posterior elements. There is abnormal material in the anterior and lat eral paraspinous prevertebral soft tissues. L5-S1: Decreased disc height with central to right paracentral disc osteophyte complex. This effaces the right lateral recess and results in no significant spinal canal stenosis. No significant neural foraminal narrowing is identified. Other: As described above, there is perivertebral enhancing tissue anterior to the L4 and L5 vertebra l bodies likely representing infectious material. CONCLUSION: 1. Findings are diagnostic of discitis osteomyelitis at L4-L5 with epidural abscess posterior to the L4 and L5 vertebral body. This epidural material along with facet hypertrophy moderately narrows the spinal canal at this level. There additionally is some perivertebral enhancing material likely repre senting small perivertebral abscess. It is challenging to compare to the prior study since it was sig nificantly degraded by motion artifact. However, the findings are similar and do not appear improved. 2. There is mild edema within the L2 disc space and minimal endplate irregularity and enhancement of L2. These changes could be secondary to degenerative disc disease but cannot exclude early discitis. Suggest attention to this area at follow-up imaging. Electronically signed by: Collin Galarza MD 09/25/2018 5:47 PM EDT
[2018-09-26] MEDS: Sod Chloride 0.9% Inj 1,000 ML IV.CONT SCH ×2 (05:09→14:03)
[2018-09-26] MEDS: Meloxicam 7.5 MG Tablet PO SCH ×2 (05:56→17:22)
[2018-09-26] MEDS: Baclofen 10 MG Tablet PO SCH ×3 (05:56→21:30)
[2018-09-26 06:44] LABS: Baso # (Auto) 0.1 th/mm3 (0.0-0.2); Baso % (Auto) 0.5 % (0.0-2.0); Eos # (Auto) 0.3 th/mm3 (0.0-0.4); Eos % (Auto) 1.6 % (0.0-4.0); Hematocrit 30.6 % (39.0-51.0); Hemoglobin 9.9 gm/dL (13.0-17.0); Lymph # (Auto) 2.4 th/mm3 (1.0-4.8); Lymph % (Auto) 14.2 % (9.0-44.0); Mean Corpuscular HGB Conc 32.2 % (32.0-36.0); Mean Corpuscular Volume 77.4 fL (80.0-100.0); Mean Platelet Volume 6.2 fL (7.0-11.0); Mono # (Auto) 1.2 th/mm3 (0.0-0.9); Mono % (Auto) 7.2 % (0.0-8.0); Neut % (Auto) 76.5 % (16.0-70.0); Platelet Count 485 th/mm3 (150-450); Red Blood Count 3.95 mil/mm3 (4.50-5.90); Red Cell Distribution Width 16.7 % (11.6-17.2)
[2018-09-26 07:04] LABS: Anion Gap 9 meq/L (5-15); Blood Urea Nitrogen 22 mg/dL (7-18); Calcium 8.8 mg/dL (8.5-10.1); Carbon Dioxide 26.3 meq/L (21.0-32.0); Chloride 100 meq/L (98-107); Glomerular Filtration Rate Greater Than 89 mL/min (>89); Potassium 3.8 meq/L (3.5-5.1); Sodium 135 meq/L (136-145)
[2018-09-26 07:26] LABS: Erythrocyte Sedimentation Rate 73 mm/hr (0-20)
[2018-09-26 07:34] LABS: Glucose,Random 37 mg/dL (74-106)
[2018-09-26] MEDS ORDERED: Insulin Detemir Inj 1,000 UNIT/10 ML Vial SQ SCH ×2 (08:00→21:00)
[2018-09-26] MEDS: Insulin NovoLOG Aspart Correctional Sugar Inj SQ SCH ×4 (08:20→22:13)
[2018-09-26] MEDS: Ramipril 2.5 MG Capsule PO SCH (08:58)
[2018-09-26] MEDS: Senna/Docusate Sodium 8.6/50 MG Tablet PO SCH ×2 (08:58→21:30)
[2018-09-26] MEDS: Furosemide 20 MG Tablet PO SCH ×2 (08:58→21:30)
[2018-09-26] MEDS: Insulin Detemir Inj 1,000 UNIT/10 ML Vial SQ SCH (09:00)
[2018-09-26] MEDS ORDERED: CEFOXITIN IV.SIG SCH ×4 (11:00→17:00)
[2018-09-26] MEDS ORDERED: DEXTROSE 5% IV.SIG SCH ×4 (11:00→17:00)
[2018-09-26] MEDS ORDERED: WATER IV.SIG SCH ×4 (11:00→17:00)
--- NOTE | 2018-09-26 15:07 | P.PNID ---
Subjective Remarks: Patient says he has continued pain in the back. No fever or chills. No SOB. Blood culture has no growth in 3 days. MRI of the lumbar spine report noted. 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 He underwent aspiration from the lumbar spine back in July 2018 and cultures were negative. 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 He had returned with severe back pain despite strong antibiotic treatment with vancomycin. It was elected to focus treatment of the back for the same organism recovered from the hand and he was put on antibiotics IV and was subsequently discharged from the hospital last on 09/18/2018 with a PICC line. The patient was administered antibiotics at home. He states that when he was doing the antibiotic, he developed some pain in his right upper extremity where the PICC line is located and the PICC line was not working. He came to the emergency department for that purpose. In the emergency department he had a temperature of 101. 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 Allergies/Adverse Reactions: Allergies No Known Drug Allergies Allergy (Verified 08/06/18 15:59) none *MDRO Multi-Drug Resistant Organism Adverse Reaction (Unknown, Uncoded 06/16/17 16:34) MRSA MRSA (foot wound) - 02/12/15, 11/12/16, 03/29/17; (toe) - 03/2016 Objective Vital Signs 09/25/18 20:00 09/26/18 00:00 09/26/18 08:00 Temperature 98.5 F 98.6 F 97.4 F L Pulse Rate 82 84 72 Respiratory Rate 18 Blood Pressure 106/57 L 115/64 136/72 Pulse Oximetry 97 98 99 Intake & Output 09/25/18 09/26/18 09/26/18 18:59 06:59 18:59 Intake Total 800 / 800 200 / 200 460 / 460 Output Total 1150 / 1150 Balance 800 / 800 200 / 200 -690 / -690 Weight 89.4 kg Intake: IV 800 / 800 200 / 200 100 / 100 NS Inj 1,000 ML @ 100 mls/hr IV 500 / 500 .CONT .Q10H ROBBIE Rx#:[id number] Tygacil Inj 50 MG In NS Inj 100 100 / 100 100 / 100 ML @ 200 mls/hr IV.SIG Q12H ROBBIE Rx#:[id number] Mefoxin Inj 2 GM In NS Inj 100 200 / 200 100 / 100 100 / 100 ML @ 200 mls/hr IV.SIG Q8H ROBBIE Rx#:[id number] Oral 360 / 360 Output: Urine 1150 / 1150 Other: Date of Last Bowel Movement 09/24/18 09/23/18 13:55 Blood - Peripheral Aerobic Blood Culture - Preliminary No growth in 3 days 09/23/18 13:55 Blood - Peripheral Anaerobic Blood Culture - Preliminary No growth in 3 days 09/23/18 13:50 Blood - Peripheral Aerobic Blood Culture - Preliminary No growth in 3 days 09/23/18 13:50 Blood - Peripheral Anaerobic Blood Culture - Preliminary No growth in 3 days Lab - Hematology Results 09/25/18 09/26/18 07:10 05:20 WBC 14.7 H 17.0 H RBC 3.67 L 3.95 L Hgb 9.5 L 9.9 L Hct 28.3 L 30.6 L MCV 77.2 L 77.4 L MCH 25.8 L 25.0 L MCHC 33.4 32.2 RDW 16.7 16.7 Plt Count 408 485 H MPV 6.6 L 6.2 L Neut % (Auto) 77.6 H 76.5 H Lymph % (Auto) 12.1 14.2 [place] % (Auto) 7.2 7.2 Eos % (Auto) 2.3 1.6 Baso % (Auto) 0.8 0.5 Neut # (Auto) 11.4 H 13.0 H Lymph # (Auto) 1.8 2.4 [place] # (Auto) 1.1 H 1.2 H Eos # (Auto) 0.3 0.3 Baso # (Auto) 0.1 0.1 WBC Differential . . Differential Comment Auto diff final Auto diff final ESR 73 H Lab - Chemistry Results 09/24/18 09/24/18 09/25/18 16:14 20:54 07:10 Sodium 132 L Potassium 4.2 Chloride 96 L D Carbon Dioxide 27.2 Anion Gap 9 BUN 23 H Creatinine 0.66 Estimated GFR Greater than 89 POC Glucose 141 H 125 H Random Glucose 157 H D Calcium 8.7 09/25/18 09/25/18 09/25/18 07:36 12:01 17:57 Sodium Potassium Chloride Carbon Dioxide Anion Gap BUN Creatinine Estimated GFR POC Glucose 173 H 181 H 186 H Random Glucose Calcium 09/25/18 09/26/18 09/26/18 21:42 05:20 07:43 Sodium 135 L Potassium 3.8 Chloride 100 Carbon Dioxide 26.3 Anion Gap 9 BUN 22 H Creatinine 0.68 Estimated GFR Greater than 89 POC Glucose 227 H 83 Random Glucose 37 L* D Calcium 8.8 09/26/18 11:44 Sodium Potassium Chloride Carbon Dioxide Anion Gap BUN Creatinine Estimated GFR POC Glucose 96 Random Glucose Calcium Imaging: ITS Impressions Chest X-Ray 09/23/18 13:30 CONCLUSION: Negative examination. Venous Doppler Study 09/23/18 13:35 CONCLUSION: 1. Occlusive thrombus in the proximal and mid cephalic vein. 2. Deep venous system is otherwise patent. 3. Heterogeneous hypoechoic collection along the right shoulder which could represent a hematoma and/or seroma. Lumbar Spine MRI 09/25/18 00:00 CONCLUSION: 1. Findings are diagnostic of discitis osteomyelitis at L4-L5 with epidural abscess posterior to the L4 and L5 vertebral body. This epidural material along with facet hypertrophy moderately narrows the spinal canal at this level. There additionally is some perivertebral enhancing material likely representing small perivertebral abscess. It is challenging to compare to the prior study since it was significantly degraded by motion artifact. However, the findings are similar and do not appear improved. 2. There is mild edema within the L2 disc space and minimal endplate irregularity and enhancement of L2. These changes could be secondary to degenerative disc disease but cannot exclude early discitis. Suggest attention to this area at follow-up imaging. Physical Exam: PHYSICAL EXAMINATION: GENERAL: No acute distress. HEENT: Head atraumatic. Extraocular movements grossly intact. Pupils reactive to light, without icterus. Oropharynx: Moist mucosa. No visible lesions. No thrush. NECK: Supple without adenopathy or swelling. LUNGS: Clear breath sounds. HEART: Regular S1, S2, without murmurs, rubs or gallops. ABDOMEN: Bowel sounds present; flat, soft, no tenderness appreciated. EXTREMITIES: The right upper extremity has erythema at the anterior humerus. There is a cord above the PICC line entry site and area is warm and erythematous and firm. No blisters. The other extremities have no clubbing , cyanosis or edema. SKIN: No diffuse rash. NEUROLOGIC: Nonfocal. PSYCHIATRIC: calm and cooperative. Assessment and Plan - Plan ASSESSMENT AND PLAN: 1. Catheter related infection from a PICC line. 2. Thrombus of the right upper extremity related to PICC line. 3. Known diskitis and osteomyelitis of the lumbar spine, currently being treated with IV antibiotics. 4. 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 5. Chronic pain. RECOMMENDATIONS: Continue the current treatment for osteomyelitis of the back. However because the MRI has not changed and the sed rate remain elevated and patient continues to have pain the antibiotics should be continued for a longer duration. Continue the Cefoxitin, Tigecycline and Biaxin until 10/25/2018. Change the dose of the Cefoxitin to 2 mg IV Q6 hours Tigecycline 50 mg IV Q 12 hours and continue to give the Biaxin PO bid until . Labs including sedimentation rate, BMP and CBC with differential weekly. When the arrangements are made he can be discharged. Follow up with DR Orellana in 1 week. Addendum: Hold off on PIC line/Discharge. WBC increased. Repeat WBC in AM.
--- NOTE | 2018-09-26 15:10 | P.DCO ---
Post Hospital Infusion Therapy - Infusion Therapy Location of Infusion Therapy: Home Health Care IV Infusion Order - Patient Information Patient Weight: 89.4 kg - Diagnosis (1) Discitis of lumbar region Code(s): M46.46 - Discitis, unspecified, lumbar region (2) Osteomyelitis Code(s): M86.9 - Osteomyelitis, unspecified - Administer Medication Tigecycline Dose: 50 mg IV Directions: q 12 hours Stop Treatment: 10/25/18 - Additional Information Additional Medications: CEFOXITIN 2 GRAMS IV Q 6 HOURS UNTIL 10/25/2018. 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 [] May leave port accessed during therapy. [] May leave peripheral site accessed for duration of therapy. [x] If patient has SOB or respiratory distress, check oxygen saturation. If less than 90% or clinical signs of respiratory distress, administer oxygen at 2 L/min. via nasal cannula and notify physician. [x] Anaphylaxis/Reaction orders: * Stop infusion. * Keep IV line open with saline flush. * Notify physician. * Monitor vital signs every 15 minutes until symptoms resolve. * Check Oxygen saturation; Oxygen at 2 L/min. via nasal cannula if less than 90% or clinical signs of respiratory distress. * Administer diphenhydramine (Benadryl) 25 mg IV STAT, (unless patient has received as pre-med). May repeat once, if necessary. * Solu-Cortef 250 mg IVP over 30-60 seconds, use 100 mg vials for each dissolution. * Epinephrine (1mg/1 ml) 0.3 mg subcutaneously or IVP now with any signs of respiratory distress. * Check with physician for new additional pre-med orders if patient is re- challenged or re-treated. [x] May remove PICC line when treatment complete, after confirming with Physician. [x] If the patient is admitted to the hospital, the ED, or transferred via [facility] , complete transfer form including medication reconciliation order sheet. Weekly Labs: BMP, CBC w/diff, SED Rate Additional Information: FOLLOW UP WITH DR BOLIVAR IN 1 WEEK. - Patient Information Allergies No Known Drug Allergies Allergy (Verified 08/06/18 15:59) none *MDRO Multi-Drug Resistant Organism Adverse Reaction (Unknown, Uncoded 06/16/17 16:34) MRSA MRSA (foot wound) - 02/12/15, 11/12/16, 03/29/17; (toe) - 03/2016 (2) Osteomyelitis Qualifiers: Osteomyelitis type: unspecified type Osteomyelitis location: unspecified site Qualified Code(s): M86.9 - Osteomyelitis, unspecified
--- NOTE | 2018-09-26 15:36 | P.DS ---
Date of admission: 09/24/18 09:43 Primary care physician: UNKNOWN Attending physician on discharge: Jose Jay Anticipated date of discharge: 09/26/18 Brief History from admission: Patient is a 58-year-old male who has had multiple hospitalizations for infection. Past medical history includes hypertension, hyperlipidemia, GERD , A. fib, DM and L4-5 discitis. He was most recently discharged on 09/17/18 with a right upper arm PICC for outpatient IV antibiotic infusion. He returns to the ED today with a complaint of the PICC line not working and swelling and pain in that arm. He denies any fever or chills. No chest pain or shortness of breath. No nausea vomiting or diarrhea. He is a somewhat poor historian and is primarily focused on discussing his foot and back pain which are chronic issues. Patient update on day of discharge: Follow-up PICC line site phlebitis/thropmbosis, osteomyelitis long-term antibiotic use, hypertension, hyperlipidemia, GERD, A. fib, DM and L4-5 discitis. Patient seen and examined laying in bed, stated was ready to advance for many years. Patient stated he had a history of treatment for this laying in bed and got caught in the blanket the last time. Plan thrombosis physical exam. Patient complaining of the lower back pain however is improving, worse with movement, better with pain medication. Patient stated he manage medications and infusion of antibiotics, patient stated he will not do any harm himself, denies any use of any IV drug other than the antibiotic that was prescribed for him. DS: Diagnosis - Discharge Diagnosis (1) Osteomyelitis Status: Acute (2) Diabetes Status: Chronic (3) Strain of lumbar region Status: Acute (4) Lumbar radiculopathy Status: Acute (5) Suppurative tenosynovitis of flexor tendon of left hand Status: Chronic (6) Abscess of hand, left Status: Acute (7) Mycobacterium abscessus infection Status: Acute (8) Malfunction of peripheral inserted central catheter Status: Acute (9) Antibiotic long-term use Status: Acute DS: Summary Hospital Course: Patient is a 58-year-old male who has had multiple hospitalizations for infection. Past medical history includes hypertension, hyperlipidemia, GERD , A. fib, DM and L4-5 discitis. He was most recently discharged on 09/17/18 with a right upper arm PICC for outpatient IV antibiotic infusion. He returns to the ED today with a complaint of the PICC line not working and swelling and pain in that arm. Patient had a long-term history of lumbar discitis/ osteomyelitis being having IV antibiotics. Patient also have tenosynovitis of flexor tendon of the left hand status post exploration, wash, repair of wound dehiscence, left palm/ring finger on 09/13. Hand surgeon following. Infectious disease following MRI of the back recommended to continue long-term IV antibiotic treatment, at least until October 25, 2018. ID recommended PICC line. Placement for the administration of IV antibiotic. Plan to discharge the patient with PICC line for long-term IV antibiotic treatment and follow-up with Dr. Orellana is an outpatient ID. - Time Spent with Patient Total time spent providing and/or coordinating discharge services: Greater than 30 minutes - Quality: VTE Deep Vein Thrombosis/Pulmonary Embolism Present on Admission: No Exam Vital signs: Vital Signs 09/25/18 20:00 09/26/18 00:00 09/26/18 08:00 Temperature 98.5 F 98.6 F 97.4 F L Pulse Rate 82 84 72 Respiratory Rate 18 18 18 Blood Pressure 106/57 L 115/64 136/72 Pulse Oximetry 97 98 99 09/26/18 12:00 Temperature 98.2 F Pulse Rate 70 Respiratory Rate 16 Blood Pressure 110/55 L Pulse Oximetry 100 Intake & Output 09/25/18 09/26/18 09/26/18 18:59 06:59 18:59 Intake Total 800 / 800 200 / 200 460 / 460 Output Total 1150 / 1150 Balance 800 / 800 200 / 200 -690 / -690 Weight 89.4 kg Intake: IV 800 / 800 200 / 200 100 / 100 NS Inj 1,000 ML @ 100 mls/hr IV 500 / 500 .CONT .Q10H ROBBIE Rx#:[id number] Tygacil Inj 50 MG In NS Inj 100 100 / 100 100 / 100 ML @ 200 mls/hr IV.SIG Q12H ROBBIE Rx#:[id number] Mefoxin Inj 2 GM In NS Inj 100 200 / 200 100 / 100 100 / 100 ML @ 200 mls/hr IV.SIG Q8H ROBBIE Rx#:[id number] Oral 360 / 360 Output: Urine 1150 / 1150 Other: Date of Last Bowel Movement 09/24/18 Narrative: GENERAL: Well-developed, well-nourished, adult male in no apparent distress SKIN: Warm and dry. Right upper arm with redness and slight edema patient stated prior PICC line site. With tenderness to touch right radial pulse palpable left hand middle finger dressed dry and intact. Multiple prickly red rash in the back. Sacral excoriation HEAD: Atraumatic. Normocephalic. EYES: Pupils equal and round. No scleral icterus. No injection or drainage. ENT: No nasal bleeding or discharge. Mucous membranes pink and moist. NECK: Trachea midline. No JVD. CARDIOVASCULAR: Regular rate and rhythm. RESPIRATORY: No accessory muscle use. Clear to auscultation. Breath sounds equal bilaterally. GASTROINTESTINAL: Abdomen obese soft, non-tender, nondistended. Hepatic and splenic margins not palpable. MUSCULOSKELETAL: Extremities without clubbing, cyanosis, or edema. Right foot deformity. 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 No obvious cranial nerve deficits. Motor grossly within normal limits. Generalized weakness moving all 4 extremities normal speech. PSYCHIATRIC: Appropriate mood and affect; insight and judgment normal. Results Procedures completed during hospitalization: PICC line insertion Labs on day of discharge: Labs from last 24 hours 09/26/18 09/26/18 09/26/18 11:44 07:43 05:20 WBC RBC Hgb Hct MCV MCH MCHC RDW Plt Count MPV Neut % (Auto) Lymph % (Auto) [place] % (Auto) Eos % (Auto) Baso % (Auto) Neut # (Auto) Lymph # (Auto) [place] # (Auto) Eos # (Auto) Baso # (Auto) WBC Differential Differential Comment ESR Sodium 135 L Potassium 3.8 Chloride 100 Carbon Dioxide 26.3 Anion Gap 9 BUN 22 H Creatinine 0.68 Estimated GFR Greater than 89 POC Glucose 96 83 Random Glucose 37 L* D Calcium 8.8 09/26/18 09/25/18 09/25/18 05:20 21:42 17:57 WBC 17.0 H RBC 3.95 L Hgb 9.9 L Hct 30.6 L MCV 77.4 L MCH 25.0 L MCHC 32.2 RDW 16.7 Plt Count 485 H MPV 6.2 L Neut % (Auto) 76.5 H Lymph % (Auto) 14.2 [place] % (Auto) 7.2 Eos % (Auto) 1.6 Baso % (Auto) 0.5 Neut # (Auto) 13.0 H Lymph # (Auto) 2.4 [place] # (Auto) 1.2 H Eos # (Auto) 0.3 Baso # (Auto) 0.1 WBC Differential . Differential Comment Auto diff final ESR 73 H Sodium Potassium Chloride Carbon Dioxide Anion Gap BUN Creatinine Estimated GFR POC Glucose 227 H 186 H Random Glucose Calcium Preliminary micro results at discharge 09/23/18 13:55 Aerobic Blood Culture - Preliminary Blood - Peripheral No growth in 3 days Anaerobic Blood Culture - Preliminary No growth in 3 days 09/23/18 13:50 Aerobic Blood Culture - Preliminary Blood - Peripheral No growth in 3 days Anaerobic Blood Culture - Preliminary No growth in 3 days - Impressions ITS Impressions Chest X-Ray 09/23/18 13:30 CONCLUSION: Negative examination. Venous Doppler Study 09/23/18 13:35 CONCLUSION: 1. Occlusive thrombus in the proximal and mid cephalic vein. 2. Deep venous system is otherwise patent. 3. Heterogeneous hypoechoic collection along the right shoulder which could represent a hematoma and/or seroma. Lumbar Spine MRI 09/25/18 00:00 CONCLUSION: 1. Findings are diagnostic of discitis osteomyelitis at L4-L5 with epidural abscess posterior to the L4 and L5 vertebral body. This epidural material along with facet hypertrophy moderately narrows the spinal canal at this level. There additionally is some perivertebral enhancing material likely representing small perivertebral abscess. It is challenging to compare to the prior study since it was significantly degraded by motion artifact. However, the findings are similar and do not appear improved. 2. There is mild edema within the L2 disc space and minimal endplate irregularity and enhancement of L2. These changes could be secondary to degenerative disc disease but cannot exclude early discitis. Suggest attention to this area at follow-up imaging. Discharge Plan - Discharge Disposition Patient Disposition: Disch W/Home Health Service - Discharge Condition Condition: Stable - Discharge Order Discharge Orders: Discharge Order (Routine); Ordered 09/26/18 Ordered By: Adela Han - Discharge Details Anticipated Discharge Date: 09/26/18 Discharge Comment: Follow-up with infectious disease: Dr. Orellana is an outpatient in 1 week - Physicians Team Primary Care Provider: UNKNOWN, Attending Provider: Jose Jay Other Providers: Slim Slaughter MD ; Loulou Treviño MD ; [facility] ; Zee Villalba MD ; Brandon Ignacio MD
[2018-09-26] MEDS: dilTIAZem CD 240 MG Capsule PO SCH (15:51)
[2018-09-26] MEDS: WATER IV.SIG SCH ×4 (15:55→22:12)
[2018-09-26] MEDS: DEXTROSE 5% IV.SIG SCH ×4 (15:55→22:12)
[2018-09-26] MEDS: CEFOXITIN IV.SIG SCH ×4 (15:55→22:12)
[2018-09-26] MEDS: Sodium Chloride 0.9% 2 ML Flush BID IV.FLUSH SCH (21:30)
[2018-09-27] MEDS: DEXTROSE 5% IV.SIG SCH ×8 (03:43→22:14)
[2018-09-27] MEDS: CEFOXITIN IV.SIG SCH ×8 (03:43→22:14)
[2018-09-27] MEDS: WATER IV.SIG SCH ×8 (03:43→22:14)
[2018-09-27] MEDS: Meloxicam 7.5 MG Tablet PO SCH ×2 (06:15→17:27)
[2018-09-27] MEDS: Baclofen 10 MG Tablet PO SCH ×3 (06:15→22:14)
[2018-09-27 07:10] LABS: Baso # (Auto) 0.1 th/mm3 (0.0-0.2); Baso % (Auto) 0.7 % (0.0-2.0); Eos # (Auto) 0.2 th/mm3 (0.0-0.4); Eos % (Auto) 1.8 % (0.0-4.0); Hematocrit 28.4 % (39.0-51.0); Hemoglobin 9.3 gm/dL (13.0-17.0); Lymph # (Auto) 1.6 th/mm3 (1.0-4.8); Lymph % (Auto) 14.6 % (9.0-44.0); Mean Corpuscular HGB Conc 32.8 % (32.0-36.0); Mean Corpuscular Hemoglobin 25.7 pg (27.0-34.0); Mean Corpuscular Volume 78.2 fL (80.0-100.0); Mean Platelet Volume 6.1 fL (7.0-11.0); Mono # (Auto) 0.8 th/mm3 (0.0-0.9); Mono % (Auto) 7.1 % (0.0-8.0); Neut # (Auto) 8.5 th/mm3 (1.8-7.7); Neut % (Auto) 75.8 % (16.0-70.0); Platelet Count 448 th/mm3 (150-450); Red Blood Count 3.63 mil/mm3 (4.50-5.90); White Blood Count 11.2 th/mm3 (4.0-11.0)
[2018-09-27] MEDS: Sod Chloride 0.9% Inj 1,000 ML IV.CONT SCH (07:30)
[2018-09-27] MEDS: Senna/Docusate Sodium 8.6/50 MG Tablet PO SCH ×2 (09:10→21:05)
[2018-09-27] MEDS: Furosemide 20 MG Tablet PO SCH ×2 (09:11→21:05)
[2018-09-27] MEDS: Ramipril 2.5 MG Capsule PO SCH (09:11)
[2018-09-27] MEDS: Insulin Detemir Inj 1,000 UNIT/10 ML Vial SQ SCH ×2 (09:13→21:06)
[2018-09-27] MEDS: Sodium Chloride 0.9% 2 ML Flush BID IV.FLUSH SCH ×2 (09:14→21:08)
[2018-09-27 10:39] LABS: Hematocrit 29.5 % (39.0-51.0); Hemoglobin 9.5 gm/dL (13.0-17.0); Mean Corpuscular HGB Conc 32.2 % (32.0-36.0); Mean Corpuscular Hemoglobin 25.7 pg (27.0-34.0); Mean Corpuscular Volume 79.6 fL (80.0-100.0); Mean Platelet Volume 6.3 fL (7.0-11.0); Platelet Count 483 th/mm3 (150-450); Red Blood Count 3.71 mil/mm3 (4.50-5.90); Red Cell Distribution Width 16.7 % (11.6-17.2); White Blood Count 13.4 th/mm3 (4.0-11.0)
--- NOTE | 2018-09-27 10:49 | P.PNIM ---
Subjective Interval history: Follow-up PICC line site phlebitis/thrombosis, osteomyelitis long-term antibiotic use, hypertension, hyperlipidemia, GERD, A. fib, DM and L4-5 discitis. Patient seen and examined laying in bed, discussed low blood sugar this morning. Patient states that he has been eating 12 meals in a day however while he is here his diet is controlled. Stated he has nothing to eat at midnight last night. He usually eat sandwiches before bedtime. Patient denies any pain or shortness of breath, denies any headache or dizziness, denies any sweating, polyuria polydipsia. Patient denies any abdominal pain, nausea, vomiting, diarrhea or constipation. Patient denies any fever or chills. Patient stated ready to go home as soon as the PICC line space. Patient discussed again multiple PICC line that was placed and was dislodged before, but stated it happened accidentally. He mentioned that he can get a nurse to come to the house and do not care how much it cost. Discussed will set up a home health care nurse to come to his house. Patient agreed. Physical Exam Vital signs: Vital Signs 09/26/18 12:00 09/26/18 16:00 09/26/18 20:00 Temperature 98.2 F 97.9 F 98.9 F Pulse Rate 70 75 80 Respiratory Rate 16 17 22 Blood Pressure 110/55 L 110/54 L 116/59 L Pulse Oximetry 100 99 100 09/27/18 00:00 Temperature 97.5 F L Pulse Rate 77 Respiratory Rate 18 Blood Pressure 113/57 L Pulse Oximetry 100 Intake & Output 09/26/18 09/27/18 09/27/18 18:59 06:59 18:59 Intake Total 1560 / 1560 1350 / 1350 50 / 50 Output Total 2024 1500 / 1500 Balance -465 / -465 -150 / -150 50 / 50 Weight 89.4 kg Intake: IV 250 / 250 150 / 150 50 / 50 Tygacil Inj 50 MG In NS Inj 100 100 / 100 100 / 100 ML @ 200 mls/hr IV.SIG Q12H ROBBIE Rx#:[id number] Mefoxin Inj 2 GM In D5W Inj 50 50 / 50 50 / 50 50 / 50 ML @ 200 mls/hr IV.SIG Q6H ROBBIE Rx#:[id number] Mefoxin Inj 2 GM In NS Inj 100 100 / 100 ML @ 200 mls/hr IV.SIG Q8H ROBBIE Rx#:[id number] Oral 1310 / 1310 1200 / 1200 Output: Urine 2024 / 2024 1500 / 1500 Other: Date of Last Bowel Movement 09/24/18 09/24/18 # Bowel Movements 0 Narrative: GENERAL: Well-developed, well-nourished, adult male in no apparent distress SKIN: Warm and dry. Right upper arm with redness and slight edema patient stated prior PICC line site. With tenderness to touch right radial pulse palpable left hand middle finger dressed dry and intact. Multiple prickly red rash in the back. Sacral excoriation HEAD: Atraumatic. Normocephalic. EYES: Pupils equal and round. No scleral icterus. No injection or drainage. ENT: No nasal bleeding or discharge. Mucous membranes pink and moist. NECK: Trachea midline. No JVD. CARDIOVASCULAR: Regular rate and rhythm. RESPIRATORY: No accessory muscle use. Clear to auscultation. Breath sounds equal bilaterally. GASTROINTESTINAL: Abdomen obese soft, non-tender, nondistended. Hepatic and splenic margins not palpable. MUSCULOSKELETAL: Extremities without clubbing, cyanosis, or edema. Right foot deformity with missing 3rd toe. left hand and middle finger surgical incision with stitches and dressing dry and intact, hand incision no redness no drainage NEUROLOGICAL: Awake and alert. No obvious cranial nerve deficits. Motor grossly within normal limits. Generalized weakness moving all 4 extremities normal speech. PSYCHIATRIC: Appropriate mood and affect; insight and judgment normal. Results - Labs CBC & Chem 7: 09/27/18 06:50 09/26/18 05:20 Laboratory Results - last 24 hr 09/26/18 09/26/18 09/26/18 11:44 17:02 21:58 WBC RBC Hgb Hct MCV MCH MCHC RDW Plt Count MPV Neut % (Auto) Lymph % (Auto) [place] % (Auto) Eos % (Auto) Baso % (Auto) Neut # (Auto) Lymph # (Auto) [place] # (Auto) Eos # (Auto) Baso # (Auto) WBC Differential Differential Comment POC Glucose 96 100 189 H 09/27/18 09/27/18 09/27/18 06:50 07:58 08:49 WBC 11.2 H RBC 3.63 L Hgb 9.3 L Hct 28.4 L MCV 78.2 L MCH 25.7 L MCHC 32.8 RDW 17.0 Plt Count 448 MPV 6.1 L Neut % (Auto) 75.8 H Lymph % (Auto) 14.6 [place] % (Auto) 7.1 Eos % (Auto) 1.8 Baso % (Auto) 0.7 Neut # (Auto) 8.5 H Lymph # (Auto) 1.6 [place] # (Auto) 0.8 Eos # (Auto) 0.2 Baso # (Auto) 0.1 WBC Differential . Differential Comment Auto diff final POC Glucose 59 L 97 Microbiology 09/23/18 13:55 Blood - Peripheral Aerobic Blood Culture - Preliminary No growth in 3 days 09/23/18 13:55 Blood - Peripheral Anaerobic Blood Culture - Preliminary No growth in 3 days 09/23/18 13:50 Blood - Peripheral Aerobic Blood Culture - Preliminary No growth in 3 days 09/23/18 13:50 Blood - Peripheral Anaerobic Blood Culture - Preliminary No growth in 3 days Assessment and Plan - Assessment (1) Osteomyelitis Code(s): M86.9 - Osteomyelitis, unspecified Status: Acute (2) Diabetes Code(s): E11.9 - Type 2 diabetes mellitus without complications Status: Chronic (3) Strain of lumbar region Code(s): S39.012A - Strain of muscle, fascia and tendon of lower back, initial encounter Status: Acute (4) Lumbar radiculopathy Code(s): M54.16 - Radiculopathy, lumbar region Status: Acute (5) Suppurative tenosynovitis of flexor tendon of left hand Code(s): M65.142 - Other infective (teno)synovitis, left hand Status: Chronic (6) Abscess of hand, left Code(s): L02.512 - Cutaneous abscess of left hand Status: Acute (7) Mycobacterium abscessus infection Code(s): A31.9 - Mycobacterial infection, unspecified Status: Acute (8) Malfunction of peripheral inserted central catheter Code(s): T82.598A - Other mechanical complication of other cardiac and vascular devices and implants, initial encounter Status: Acute (9) Antibiotic long-term use Code(s): Z79.2 - jail (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 fib, and DM, with recent hospitalization for lumbar spine discitis currently on outpatient IV abx via PICC for OM, presented with complaint of clogged PICC line. Nonfunctioning PICC -PICC removed; new consult to IR placed -Nonoccluding thrombus; supportive care -Continue scheduled IV antibiotic -PICC line placement per ID recommendation for ling term IV antibiotic treatment -Consult for Vascular access for PiCC line placement, Unable to do access yesterday due to elevated WBC at 17, improved today at 11.2 Lumbar Discitis/Osteomyelitis/leukocytosis -MRI from 08/30/2018 showed epidural abscess causing regional stenosis at L4-L5 with extension beyond vertebral body -Neurosurgery recommended conservative management with IV antibiotics, sx only for bladder or extremity symptoms -Complete 8 weeks of PO Biaxin started on 08/27, IV Tygacil and Cefoxitin cont. until 10/04 per ID -ID consult appreciated recommendation -Monitor CBC and BMP Supportive tenosynovitis of flexor tendon of left hand -s/p Exploration, wash, repair of wound dehiscence, left palm/ring finger on -s/p ABX as above Chronic Pain -History of chronic pain with consistent Rx for oxycodone HCL 30 mg 3 times daily; most recent being filled 08/17/18 for #100 -We will control pain while hospitalized based on outpatient regimen; no discharge with pain medications as he needs to be followed by pain management Atrial fibrillation/hypertension -heart rate and blood pressure controlled -Continue Eliquis for anticoagulation -Continue diltiazem, ramipril and furosemide -Monitor heart rate and blood pressure Diabetes mellitus type 2 Monitor blood sugars before meals and at bedtime -Cover with insulin sliding scale -Continue Levemir -Diabetic diet, add bedtime snack -FBS low early am, decrease Levemir dose, was decreased dose yesterday too,and provide bedtime snack, patient stated he has beed eating few meals a day and at night while at home, how ever his diet is controlled while in the hospital DVT prophylaxis: Continue on Eliquis Discharge planning: Will need outpatient IV antibiotic Code Status: full code Discussed Condition With: wale and nurse ID: Dr Ignacio Discharge Planning: Plan for dischagre on IV antibiotic when PICC line placed. [employer] services for [facility] (1) Osteomyelitis Qualifiers: Osteomyelitis type: unspecified type Osteomyelitis location: unspecified site Qualified Code(s): M86.9 - Osteomyelitis, unspecified (3) Strain of lumbar region Qualifiers: Encounter type: initial encounter Qualified Code(s): S39.012A - Strain of muscle, fascia and tendon of lower back, initial encounter (8) Malfunction of peripheral inserted central catheter Qualifiers: Encounter type: initial encounter Qualified Code(s): T82.598A - Other mechanical complication of other cardiac and vascular devices and implants, initial encounter
[2018-09-27 10:57] LABS: Anion Gap 6 meq/L (5-15); Blood Urea Nitrogen 20 mg/dL (7-18); Calcium 8.3 mg/dL (8.5-10.1); Carbon Dioxide 28.5 meq/L (21.0-32.0); Chloride 98 meq/L (98-107); Glomerular Filtration Rate Greater Than 89 mL/min (>89); Glucose,Random 108 mg/dL (74-106); Potassium 4.3 meq/L (3.5-5.1); Sodium 132 meq/L (136-145)
[2018-09-27] MEDS: Insulin NovoLOG Aspart Correctional Sugar Inj SQ SCH ×4 (12:49→21:08)
--- NOTE | 2018-09-27 14:32 | P.PNID ---
Subjective Remarks: Patient states that he has severe back pain. He was making movement adjustments in bed trying to get comfortable. He reports that he finally found a position because the pain to go away. He notes that that has been ongoing. He denies chills. No SOB. Blood culture has no growth. Recent has developed rash on the back which is itchy. 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 He underwent aspiration from the lumbar spine back in July 2018 and cultures were negative. 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 He had returned with severe back pain despite strong antibiotic treatment with vancomycin prior to the back surgery and he was not responding to the vancomycin. It was elected to focus treatment of the back for the same organism recovered from the hand and he was put on antibiotics IV and was subsequently discharged from the hospital last on 09/18/2018 with a PICC line. The patient was administered antibiotics at home. He states that when he was doing the antibiotic, he developed some pain in his right upper extremity where the PICC line is located and the PICC line was not working. He came to the emergency department for that purpose. In the emergency department he had a temperature of 101. 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 Allergies/Adverse Reactions: Allergies No Known Drug Allergies Allergy (Verified 08/06/18 15:59) none *MDRO Multi-Drug Resistant Organism Adverse Reaction (Unknown, Uncoded 06/16/17 16:34) MRSA MRSA (foot wound) - 02/12/15, 11/12/16, 03/29/17; (toe) - 03/2016 Objective Vital Signs 09/26/18 16:00 09/26/18 20:00 09/27/18 00:00 Temperature 97.9 F 98.9 F 97.5 F L Pulse Rate 75 80 77 Respiratory Rate 17 22 18 Blood Pressure 110/54 L 116/59 L 113/57 L Pulse Oximetry 99 100 100 09/27/18 08:00 09/27/18 12:00 Temperature 98.2 F 99.9 F H Pulse Rate 80 132 H Respiratory Rate 16 18 Blood Pressure 121/74 128/62 Pulse Oximetry 98 98 Intake & Output 09/26/18 09/27/18 09/27/18 18:59 06:59 18:59 Intake Total 1560 / 1560 1350 / 1350 50 / 50 Output Total 2024 1500 / 1500 Balance -465 / -465 -150 / -150 50 / 50 Weight 89.4 kg Intake: IV 250 / 250 150 / 150 50 / 50 Tygacil Inj 50 MG In NS Inj 100 100 / 100 100 / 100 ML @ 200 mls/hr IV.SIG Q12H ROBBIE Rx#:[id number] Mefoxin Inj 2 GM In D5W Inj 50 50 / 50 50 / 50 50 / 50 ML @ 200 mls/hr IV.SIG Q6H ROBBIE Rx#:[id number] Mefoxin Inj 2 GM In NS Inj 100 100 / 100 ML @ 200 mls/hr IV.SIG Q8H ROBBIE Rx#:[id number] Oral 1310 / 1310 1200 / 1200 Output: Urine 2024 1500 / 1500 Other: Date of Last Bowel Movement 09/24/18 09/24/18 # Bowel Movements 0 09/23/18 13:55 Blood - Peripheral Aerobic Blood Culture - Preliminary No growth in 4 days 09/23/18 13:55 Blood - Peripheral Anaerobic Blood Culture - Preliminary No growth in 4 days 09/23/18 13:50 Blood - Peripheral Aerobic Blood Culture - Preliminary No growth in 4 days 09/23/18 13:50 Blood - Peripheral Anaerobic Blood Culture - Preliminary No growth in 4 days Lab - Hematology Results 09/26/18 09/27/18 09/27/18 05:20 06:50 09:52 WBC 17.0 H 11.2 H 13.4 H RBC 3.95 L 3.63 L 3.71 L Hgb 9.9 L 9.3 L 9.5 L Hct 30.6 L 28.4 L 29.5 L MCV 77.4 L 78.2 L 79.6 L MCH 25.0 L 25.7 L 25.7 L MCHC 32.2 32.8 32.2 RDW 16.7 17.0 16.7 Plt Count 485 H 448 483 H MPV 6.2 L 6.1 L 6.3 L Neut % (Auto) 76.5 H 75.8 H Lymph % (Auto) 14.2 14.6 Darke % (Auto) 7.2 7.1 Eos % (Auto) 1.6 1.8 Baso % (Auto) 0.5 0.7 Neut # (Auto) 13.0 H 8.5 H Lymph # (Auto) 2.4 1.6 Darke # (Auto) 1.2 H 0.8 Eos # (Auto) 0.3 0.2 Baso # (Auto) 0.1 0.1 WBC Differential . . Differential Comment Auto diff final Auto diff final ESR 73 H Lab - Chemistry Results 09/25/18 09/25/18 09/26/18 17:57 21:42 05:20 Sodium 135 L Potassium 3.8 Chloride 100 Carbon Dioxide 26.3 Anion Gap 9 BUN 22 H Creatinine 0.68 Estimated GFR Greater than 89 POC Glucose 186 H 227 H Random Glucose 37 L* D Calcium 8.8 09/26/18 09/26/18 09/26/18 07:43 11:44 17:02 Sodium Potassium Chloride Carbon Dioxide Anion Gap BUN Creatinine Estimated GFR POC Glucose 83 96 100 Random Glucose Calcium 09/26/18 09/27/18 09/27/18 21:58 07:58 08:49 Sodium Potassium Chloride Carbon Dioxide Anion Gap BUN Creatinine Estimated GFR POC Glucose 189 H 59 L 97 Random Glucose Calcium 09/27/18 09/27/18 09:52 12:11 Sodium 132 L Potassium 4.3 Chloride 98 Carbon Dioxide 28.5 Anion Gap 6 BUN 20 H Creatinine 0.66 Estimated GFR Greater than 89 POC Glucose 80 Random Glucose 108 H Calcium 8.3 L Imaging: ITS Impressions Chest X-Ray 09/23/18 13:30 CONCLUSION: Negative examination. Venous Doppler Study 09/23/18 13:35 CONCLUSION: 1. Occlusive thrombus in the proximal and mid cephalic vein. 2. Deep venous system is otherwise patent. 3. Heterogeneous hypoechoic collection along the right shoulder which could represent a hematoma and/or seroma. Lumbar Spine MRI 09/25/18 00:00 CONCLUSION: 1. Findings are diagnostic of discitis osteomyelitis at L4-L5 with epidural abscess posterior to the L4 and L5 vertebral body. This epidural material along with facet hypertrophy moderately narrows the spinal canal at this level. There additionally is some perivertebral enhancing material likely representing small perivertebral abscess. It is challenging to compare to the prior study since it was significantly degraded by motion artifact. However, the findings are similar and do not appear improved. 2. There is mild edema within the L2 disc space and minimal endplate irregularity and enhancement of L2. These changes could be secondary to degenerative disc disease but cannot exclude early discitis. Suggest attention to this area at follow-up imaging. Physical Exam: PHYSICAL EXAMINATION: GENERAL: No acute distress. HEENT: Head atraumatic. Extraocular movements grossly intact. Pupils reactive to light, without icterus. Oropharynx: Moist mucosa. No visible lesions. No thrush. NECK: Supple without adenopathy or swelling. LUNGS: Clear breath sounds. HEART: Regular S1, S2, without murmurs, rubs or gallops. ABDOMEN: Bowel sounds present; flat, soft, no tenderness. EXTREMITIES: The right upper extremity has less erythema at the anterior humerus. There is a cord above the PICC line entry site and area is warm and erythematous and firm. No blisters. The other extremities have no clubbing , cyanosis or edema. SKIN: Maculopapular rash on the back. NEUROLOGIC: Nonfocal. PSYCHIATRIC: calm and cooperative. Assessment and Plan - Plan ASSESSMENT AND PLAN: 1. Catheter related infection from a PICC line. 2. Thrombus of the right upper extremity related to PICC line. 3. Known diskitis and osteomyelitis of the lumbar spine, currently being treated with IV antibiotics. Negative culture on surgical biopsy of lumbar discitis. She is being treated with empiric antibiotics to cover Mycobacterium abscesses because of positive culture for Mycobacterium abscesses from hand infection. He did not respond to treatment of vancomycin previously. 4. 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 5. Chronic pain. 6. Leukocytosis. White blood cell count improved. No new source of infection is apparent. 7. Maculopapular rash very likely related to antibiotic. Could be due to either the cefoxitin or tigecycline. Patient reports to me that he plans to go to [place] directly his private ambulance. He says that he will go home after his discharge and take his private ambulance up to [place] immediately to see his physicians in [place] to continue his care. RECOMMENDATIONS: Stop tigecycline which may be causing rash. Hold off on IV antibiotics if he is to be discharged and go to [place]. When he gets to [place] the IV antibiotics can be given that. He should have copies of his medical record transferred to his physician in [place]. No PICC line placement if he is plans are to go back to [place]. Continue the Biaxin p.o. I will follow while in the hospital. 20 mins spent discussing the plan with Mr Sandoval.
[2018-09-27] MEDS: dilTIAZem CD 240 MG Capsule PO SCH (17:27)
[2018-09-28] MEDS: CEFOXITIN IV.SIG SCH ×8 (03:27→21:45)
[2018-09-28] MEDS: WATER IV.SIG SCH ×8 (03:27→21:45)
[2018-09-28] MEDS: DEXTROSE 5% IV.SIG SCH ×8 (03:27→21:45)
[2018-09-28] MEDS: Meloxicam 7.5 MG Tablet PO SCH ×2 (05:32→17:49)
[2018-09-28] MEDS: Baclofen 10 MG Tablet PO SCH ×3 (05:32→21:37)
[2018-09-28] MEDS ORDERED: Insulin Detemir Inj 1,000 UNIT/10 ML Vial SQ SCH (07:49)
[2018-09-28] MEDS: Insulin NovoLOG Aspart Correctional Sugar Inj SQ SCH ×4 (09:50→21:45)
[2018-09-28] MEDS: Senna/Docusate Sodium 8.6/50 MG Tablet PO SCH ×2 (09:51→21:37)
[2018-09-28] MEDS: Furosemide 20 MG Tablet PO SCH ×2 (09:51→21:36)
[2018-09-28] MEDS: Ramipril 2.5 MG Capsule PO SCH (09:52)
[2018-09-28] MEDS: Sodium Chloride 0.9% 2 ML Flush BID IV.FLUSH SCH ×2 (09:52→21:37)
[2018-09-28 10:57] LABS: Baso # (Auto) 0.1 th/mm3 (0.0-0.2); Baso % (Auto) 0.9 % (0.0-2.0); Eos # (Auto) 0.2 th/mm3 (0.0-0.4); Eos % (Auto) 1.4 % (0.0-4.0); Hematocrit 28.7 % (39.0-51.0); Hemoglobin 9.4 gm/dL (13.0-17.0); Lymph # (Auto) 1.3 th/mm3 (1.0-4.8); Lymph % (Auto) 10.6 % (9.0-44.0); Mean Corpuscular HGB Conc 32.9 % (32.0-36.0); Mean Corpuscular Hemoglobin 25.9 pg (27.0-34.0); Mean Corpuscular Volume 78.7 fL (80.0-100.0); Mean Platelet Volume 6.6 fL (7.0-11.0); Mono % (Auto) 8.2 % (0.0-8.0); Neut # (Auto) 9.5 th/mm3 (1.8-7.7); Neut % (Auto) 78.9 % (16.0-70.0); Platelet Count 477 th/mm3 (150-450); Red Blood Count 3.65 mil/mm3 (4.50-5.90); White Blood Count 12.1 th/mm3 (4.0-11.0)
--- NOTE | 2018-09-28 12:50 | P.CONPSY ---
Provisional Diagnosis Admission Date: September 24, 2018 09:43 History of Present Illness Service: psychiatry Consult date: 09/28/18 Primary Care Provider: UNKNOWN Chief Complaint: tics History of Present Illness: This is a request for a psychiatric consult. Documentation was reviewed, case was discussed with nursing and patient was evaluated. Patient is a 58-year-old male who states he does not have a psychiatric history. Patient is bizarre disheveled and grandiose. We are consulted today to evaluate his mental status and bizarre techs. Throughout the interview patient makes i dystonic jerking movements. Patient says it is because he is in "a lot of pain." Though, he speaks freely throughout the interview and does not appear to be in pain. Patient's thought process is very disorganized. He has tangential and circumstantial. He admits to poor sleep. Speech is pressured. We reviewed questions about psychosis and pineda and patient denied those symptoms. Patient claims to only 100 properties. 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 Nursing notes patient responding to internal stimuli and talking to himself when she leaves the room Past psych: History of Cymbalta for an unknown reason. Denies other inpatient or outpatient history. Though he says he may have seen a psychiatrist Past medical: See chart Past Famhx: Unsure Past Social: Patient has 3 daughters. from his . Currently listed as unemployed in his medical record. Medical record lists he has a brother. [facility] - History History Provided By: Patient - Medical History Medical History: Medical History (Last Reviewed 09/28/18 @ 12:46 by Forrest Ng DO) Amputated toe GERD (gastroesophageal reflux disease) Hyperlipidemia Afib Back pain Diabetes Hypertension Osteomyelitis - Surgical History Surgical History: Surgical History (Last Reviewed 09/28/18 @ 12:46 by Forrest Ng DO) H/O foot surgery - Family History Family History: Family History (Last Reviewed 09/23/18 @ 17:44 by RAFA Dunlap) Other Coronary artery disease - Tobacco History Second Hand Smoke Exposure: No Smoking Status: Never smoker - Alcohol History How Often Do You Have a Drink Containing Alcohol: Never - Substance Use History Substance History: No History of Abuse - Travel History Recent Travel in the [place] Within the Last 8 Weeks: No Recent Travel Out of the Country Within the Last 8 Weeks: No - Immunization History Tetanus Immunization: <5 Years Hx Influenza Vaccine This Season: No Medications and Allergies Active Medications: Active Medications Acetaminophen (Tylenol) 650 mg PO Q4H PRN PRN Reason: Temp > 100.4 Last Admin: 09/24/18 02:04 Dose: 650 mg Al Hydroxide/Mg Hydroxide (Milk Of Magnesia Liq) 30 ml PO Q12H PRN PRN Reason: Mild Constipation Apixaban (Eliquis) 5 mg PO BID [facility] Last Admin: 09/28/18 09:51 Dose: 5 mg Baclofen (Lioresal) 10 mg PO Q8HR [facility] Last Admin: 09/28/18 05:32 Dose: 10 mg Bisacodyl (Dulcolax Supp) 10 mg RECTAL DAILY PRN PRN Reason: SEVERE CONSITIPATION Clarithromycin (Biaxin) 500 mg PO Q12H [facility] Last Admin: 09/28/18 05:32 Dose: 500 mg Dextrose (D50w Vial) 50 ml IV.PUSH UNSCH PRN PRN Reason: PER HYPOGLYCEMIA PROTOCOL Diltiazem HCl (Cardizem Cd 24hr) 240 mg PO Q24H [facility] Last Admin: 09/27/18 17:27 Dose: 240 mg Furosemide (Lasix) 20 mg PO BID [facility] Last Admin: 09/28/18 09:51 Dose: 20 mg Glucagon (Glucagon Inj) 1 mg OTHER PRN PRN PRN Reason: for Hypoglycemia Protocol Hydrocortisone Acetate (Hydrocortisone 1% Cream) 1 applicatio TOPICAL TID [facility] Last Admin: 09/28/18 12:08 Dose: 1 applicatio Cefoxitin Sodium 2 gm/ (Dextrose) 50 mls @ 200 mls/hr IV.SIG Q6H [facility] Last Admin: 09/28/18 12:07 Dose: 200 mls/hr Insulin Aspart (Novolog Insulin Correctional Sugar Inj) 0 unit SQ ACHS [facility]; Protocol Last Admin: 09/28/18 12:10 Dose: 4 unit Insulin Detemir (Levemir Inj) 30 unit SQ HS [facility] Last Admin: 09/27/18 21:06 Dose: Not Given Insulin Detemir (Levemir Inj) 30 unit SQ DAILY [facility] Last Admin: 09/28/18 09:54 Dose: Not Given Lactulose (Lactulose Liq) 30 ml PO DAILY PRN PRN Reason: SEVERE CONSITIPATION Meloxicam (Mobic) 7.5 mg PO Q12H [facility] Last Admin: 09/28/18 05:32 Dose: 7.5 mg Ondansetron HCl (Zofran Inj) 4 mg IV.PUSH Q6H PRN PRN Reason: NAUSEA OR VOMITING Oxycodone HCl (Roxicodone) 30 mg PO Q4H PRN PRN Reason: PAIN 1-10 Last Admin: 09/28/18 09:57 Dose: 30 mg Pantoprazole Sodium (Protonix) 40 mg PO DAILY [facility] Last Admin: 09/28/18 09:51 Dose: 40 mg Ramipril (Altace) 2.5 mg PO DAILY [facility] Last Admin: 09/28/18 09:52 Dose: 2.5 mg Senna/Docusate Sodium (Aliyah-Colace) 1 tab PO BID [facility] Last Admin: 09/28/18 09:51 Dose: 1 tab Sennosides (Senokot) 17.2 mg PO Q12H PRN PRN Reason: Moderate Constipation Sodium Chloride (Ns Flush) 2 ml IV.FLUSH BID [facility] Last Admin: 09/28/18 09:52 Dose: 2 ml Sodium Chloride (Ns Flush) 2 ml IV.FLUSH PRN PRN PRN Reason: FLUSH AFTER USING IV ACCESS Allergies Allergy/AdvReac Type Severity Reaction Status Date / Time No Known Drug Allergies Allergy none Verified 08/06/18 15:59 *MDRO Multi-Drug Resistant AdvReac Unknown MRSA Uncoded 06/16/17 16:34 Organism Home Medications Medication Instructions Recorded Confirmed Type apixaban [Eliquis] 5 mg PO BID 06/09/18 09/23/18 History diltiazem HCl 240 mg PO DAILY 06/09/18 09/23/18 History furosemide 20 mg PO BID 06/09/18 09/23/18 History insulin glargine [Lantus Solostar 50 unit SUB-Q BID 06/09/18 09/23/18 History U-100 Insulin] pantoprazole [Protonix] 40 mg PO DAILY 06/09/18 09/23/18 History ramipril 2.5 mg PO DAILY 06/09/18 09/23/18 History oxycodone 30 mg PO Q4H PRN 07/22/18 09/23/18 History Exam Vital signs: Vital Signs 09/27/18 16:00 09/27/18 20:00 09/28/18 00:00 Temperature 98.2 F 98.0 F 98.0 F Pulse Rate 94 H 92 H 70 Respiratory Rate 18 20 18 Blood Pressure 130/59 L 128/60 126/60 Pulse Oximetry 98 92 L 99 09/28/18 04:00 Temperature 98.0 F Pulse Rate 84 Respiratory Rate 18 Blood Pressure 132/60 Pulse Oximetry 98 Intake & Output 09/27/18 09/28/18 09/28/18 18:59 06:59 18:59 Intake Total 150 / 150 720 / 720 Output Total 720 / 720 Balance 150 / 150 0 / 0 Weight 78.5 kg Intake: IV 150 / 150 100 / 100 Mefoxin Inj 2 GM In D5W Inj 50 150 / 150 100 / 100 ML @ 200 mls/hr IV.SIG Q6H ROBBIE Rx#:[id number] Oral 620 / 620 Output: Urine 720 / 720 Other: Date of Last Bowel Movement 09/24/18 Mental Status Examination Appearance: Dirty, Disheveled Consciousness: Vigilant Orientation: Person, Place, Date/Time Motor Activity: Other (ticcing movements) Speech: Pressured, Rapid Language: Adequate Fund of Knowledge: Adequate Attention and Concentration: Easily distracted Memory: Impaired Mood: Appropriate Affect: Anxious Thought Process & Associations: Circumstantial, Disorganized, Tangential Thought Content: Appropriate Hallucination Type: None Delusion Type: Other (possible grandiose) Suicidal Ideation: No Suicidal Plan: No Suicidal Intention: No Homicidal Ideation: No Homicidal Plan: No Homicidal Intention: No Insight: Poor Judgment: Poor Assessment and Plan - Assessment (1) Psychosis not due to substance or known physiological condition Code(s): F29 - Unspecified psychosis not due to a substance or known physiological condition Status: Acute - Plan Plan: Estimated LOS: [] days Justification for Continued Inpatient Stay: It is likely that some of the patient's statements are grandiose delusions. His thought process is consistent with somebody who may have schizophrenia. He is a poor historian. I suggest his treatment team obtain collateral information and if his statements are in fact delusions he should be started on antipsychotic medication. For now recommend medication for anxiety such as gabapentin 300 mg p.o. 3 times daily or Vistaril 50 mg p.o. every 6 hours as needed.
--- NOTE | 2018-09-28 17:23 | P.PNIM ---
Subjective Interval history: Follow-up PICC line site phlebitis/thrombosis, osteomyelitis long-term antibiotic use, hypertension, hyperlipidemia, GERD, A. fib, DM and L4-5 discitis. Patient seen and examined laying in bed, was found turned on the right side reaching for things on the table without any difficulty. However when talking stated cannot move out of bed, complains of pain in the lower back , stated once pain medication long-acting. Patient stated just one pain medication when he goes home. Patient also discussed how his IV was pulled at home, when discussed with home health care nurse stated he does not need home health care nurse and he can do things for himself. Patient stated he administer his own IV antibiotic to get up from the fridge and he will get up in his IV. Patient stated home health care will be able to move around in her house, his kitchen is too small however stated he has had a nice house. Patient stated the first IV was caught from moving around in his kitchen counter. Discussed not safe to go home without home health care and IV antibiotics should be administered by the home health nurse for safety. Patient going back and forth on going home with pain medication, and IV antibiotic. When confirmed about his discussion of going back to [place] to see his doctor for antibiotic treatment stated he wants to stay here and have the IV antibiotic treatment here. Patient stated he just went to have pain medication when he goes home. Patient denies any headache or dizziness, denies any chest pain or shortness of breath, denies any abdominal pain, nausea, vomiting, diarrhea, or constipation. Patient denies any fever or chills. Physical Exam Vital signs: Vital Signs 09/27/18 20:00 09/28/18 00:00 09/28/18 04:00 Temperature 98.0 F 98.0 F 98.0 F Pulse Rate 92 H 70 84 Respiratory Rate 20 18 18 Blood Pressure 128/60 126/60 132/60 Pulse Oximetry 92 L 99 98 09/28/18 08:00 Temperature 98.2 F Pulse Rate 100 H Respiratory Rate 20 Blood Pressure 125/68 Pulse Oximetry 100 Intake & Output 09/27/18 09/28/18 09/28/18 18:59 06:59 18:59 Intake Total 150 / 150 720 / 720 Output Total 720 / 720 Balance 150 / 150 0 / 0 Weight 78.5 kg Intake: IV 150 / 150 100 / 100 Mefoxin Inj 2 GM In D5W Inj 50 150 / 150 100 / 100 ML @ 200 mls/hr IV.SIG Q6H [facility] Rx#:[id number] Oral 620 / 620 Output: Urine 720 / 720 Other: Date of Last Bowel Movement 09/24/18 09/27/18 Narrative: GENERAL: Well-developed, well-nourished, adult male in no apparent distress SKIN: Warm and dry. Right upper arm with redness and slight edema patient stated prior PICC line site. With tenderness to touch right radial pulse palpable left hand middle finger dressed dry and intact. Multiple prickly red rash in the back. Sacral excoriation HEAD: Atraumatic. Normocephalic. EYES: Pupils equal and round. No scleral icterus. No injection or drainage. ENT: No nasal bleeding or discharge. Mucous membranes pink and moist. NECK: Trachea midline. No JVD. CARDIOVASCULAR: Regular rate and rhythm. RESPIRATORY: No accessory muscle use. Clear to auscultation. Breath sounds equal bilaterally. GASTROINTESTINAL: Abdomen obese soft, non-tender, nondistended. Hepatic and splenic margins not palpable. MUSCULOSKELETAL: Extremities without clubbing, cyanosis, or edema. Right foot deformity with missing 3rd toe. left hand and middle finger surgical incision with stitches and dressing dry and intact, hand incision no redness no drainage NEUROLOGICAL: Awake and alert. No obvious cranial nerve deficits. Motor grossly within normal limits. Generalized weakness moving all 4 extremities normal speech. PSYCHIATRIC: Appropriate mood and affect; insight and judgment normal. Results - Labs CBC & Chem 7: 09/28/18 08:50 09/27/18 09:52 Laboratory Results - last 24 hr 09/27/18 09/27/18 09/28/18 17:06 21:03 03:32 WBC RBC Hgb Hct MCV MCH MCHC RDW Plt Count MPV Neut % (Auto) Lymph % (Auto) Long % (Auto) Eos % (Auto) Baso % (Auto) Neut # (Auto) Lymph # (Auto) Long # (Auto) Eos # (Auto) Baso # (Auto) WBC Differential Differential Comment POC Glucose 74 69 56 L 09/28/18 09/28/18 09/28/18 04:39 07:38 08:50 WBC 12.1 H RBC 3.65 L Hgb 9.4 L Hct 28.7 L MCV 78.7 L MCH 25.9 L MCHC 32.9 RDW 17.0 Plt Count 477 H MPV 6.6 L Neut % (Auto) 78.9 H Lymph % (Auto) 10.6 Long % (Auto) 8.2 H Eos % (Auto) 1.4 Baso % (Auto) 0.9 Neut # (Auto) 9.5 H Lymph # (Auto) 1.3 Long # (Auto) 1.0 H Eos # (Auto) 0.2 Baso # (Auto) 0.1 WBC Differential . Differential Comment Auto diff final POC Glucose 127 H 93 09/28/18 12:10 WBC RBC Hgb Hct MCV MCH MCHC RDW Plt Count MPV Neut % (Auto) Lymph % (Auto) Long % (Auto) Eos % (Auto) Baso % (Auto) Neut # (Auto) Lymph # (Auto) Long # (Auto) Eos # (Auto) Baso # (Auto) WBC Differential Differential Comment POC Glucose 232 H Microbiology 09/23/18 13:55 Blood - Peripheral Aerobic Blood Culture - Final No growth in 5 days 09/23/18 13:55 Blood - Peripheral Anaerobic Blood Culture - Final No growth in 5 days 09/23/18 13:50 Blood - Peripheral Aerobic Blood Culture - Final No growth in 5 days 09/23/18 13:50 Blood - Peripheral Anaerobic Blood Culture - Final No growth in 5 days Assessment and Plan - Assessment (1) Osteomyelitis Code(s): M86.9 - Osteomyelitis, unspecified Status: Acute (2) Diabetes Code(s): E11.9 - Type 2 diabetes mellitus without complications Status: Chronic (3) Strain of lumbar region Code(s): S39.012A - Strain of muscle, fascia and tendon of lower back, initial encounter Status: Acute (4) Lumbar radiculopathy Code(s): M54.16 - Radiculopathy, lumbar region Status: Acute (5) Suppurative tenosynovitis of flexor tendon of left hand Code(s): M65.142 - Other infective (teno)synovitis, left hand Status: Chronic (6) Abscess of hand, left Code(s): L02.512 - Cutaneous abscess of left hand Status: Acute (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 fib, and DM, with recent hospitalization for lumbar spine discitis currently on outpatient IV abx via PICC for OM, presented with complaint of clogged PICC line. Nonfunctioning PICC -PICC removed; new consult to IR placed -Nonoccluding thrombus; supportive care -Continue scheduled IV antibiotic -PICC line placement on hold per ID recommendation. Per discussion with infectious disease patient wanted to have treatment done in [place]. -Discussed patient plan to go home with IV antibiotic will keep that PIV line and will have the home health nurse administer the IV antibiotic and if needed to have change the PIV the home health nurse will be able to change the PIV. Patient refused the idea. Lumbar Discitis/Osteomyelitis/leukocytosis -MRI from 08/30/2018 showed epidural abscess causing regional stenosis at L4-L5 with extension beyond vertebral body -Neurosurgery recommended conservative management with IV antibiotics, sx only for bladder or extremity symptoms -Complete 8 weeks of PO Biaxin started on 08/27, IV Tygacil and Cefoxitin cont. until 10/04 per ID -ID consult appreciated recommendation -Monitor CBC and BMP Supportive tenosynovitis of flexor tendon of left hand -s/p Exploration, wash, repair of wound dehiscence, left palm/ring finger on -s/p ABX as above Chronic Pain -History of chronic pain with consistent Rx for oxycodone HCL 30 mg 3 times daily; most recent being filled 08/17/18 for #100 -We will control pain while hospitalized based on outpatient regimen; no discharge with pain medications as he needs to be followed by pain management Atrial fibrillation/hypertension -heart rate and blood pressure controlled -Continue Eliquis for anticoagulation -Continue diltiazem, ramipril and furosemide -Monitor heart rate and blood pressure Diabetes mellitus type 2 Blood sugar labile, patient's diet uncontrolled Monitor blood sugars before meals and at bedtime -Cover with insulin sliding scale -Continue Levemir -Diabetic diet, add bedtime snack -FBS low early am, decrease Levemir dose again today, was decreased dose yesterday too,and provide bedtime snack, patient stated he has been eating few meals a day and at night while at home, however his diet is controlled while in the hospital. Patient stated he did not have bedtime snack last night DVT prophylaxis: Continue on Eliquis Discharge planning: Will need outpatient IV antibiotic Code Status: full code Discussed Condition With: patient and nurse Discharge Planning: Plan discharge with IV antibiotic with PIV and [facility] nurse to administer. Carie stated he have money to pay a nurse. technical services manager for [facility] (1) Osteomyelitis Qualifiers: Osteomyelitis type: unspecified type Osteomyelitis location: unspecified site Qualified Code(s): M86.9 - Osteomyelitis, unspecified (3) Strain of lumbar region Qualifiers: Encounter type: initial encounter Qualified Code(s): S39.012A - Strain of muscle, fascia and tendon of lower back, initial encounter (8) Malfunction of peripheral inserted central catheter Qualifiers: Encounter type: initial encounter Qualified Code(s): T82.598A - Other mechanical complication of other cardiac and vascular devices and implants, initial encounter
[2018-09-28] MEDS: dilTIAZem CD 240 MG Capsule PO SCH (17:50)
[2018-09-28] MEDS: Insulin Detemir Inj 1,000 UNIT/10 ML Vial SQ SCH (21:45)
[2018-09-29] MEDS: Baclofen 10 MG Tablet PO SCH ×3 (06:23→22:17)
[2018-09-29] MEDS: Meloxicam 7.5 MG Tablet PO SCH ×2 (06:23→17:22)
[2018-09-29] MEDS: CEFOXITIN IV.SIG SCH ×8 (06:24→22:39)
[2018-09-29] MEDS: DEXTROSE 5% IV.SIG SCH ×8 (06:24→22:39)
[2018-09-29] MEDS: WATER IV.SIG SCH ×8 (06:24→22:39)
[2018-09-29] MEDS: Gabapentin 300 MG Capsule PO SCH ×3 (08:55→17:22)
[2018-09-29] MEDS: Furosemide 20 MG Tablet PO SCH ×2 (08:55→22:16)
[2018-09-29] MEDS: Ramipril 2.5 MG Capsule PO SCH (08:55)
[2018-09-29] MEDS: Sodium Chloride 0.9% 2 ML Flush BID IV.FLUSH SCH ×2 (08:56→22:17)
[2018-09-29] MEDS: Insulin Detemir Inj 1,000 UNIT/10 ML Vial SQ SCH ×2 (08:57→22:17)
[2018-09-29] MEDS: Senna/Docusate Sodium 8.6/50 MG Tablet PO SCH ×2 (08:58→22:17)
[2018-09-29] MEDS: Insulin NovoLOG Aspart Correctional Sugar Inj SQ SCH ×4 (10:56→22:17)
--- NOTE | 2018-09-29 15:34 | P.PNIM ---
Subjective Interval history: Follow-up PICC line site phlebitis/thrombosis, osteomyelitis long-term antibiotic use, hypertension, hyperlipidemia, GERD, A. fib, DM and L4-5 discitis. Patient seen and examined laying in bed, family at bedside. Patient looks comfortable at this time, stated pain better however worse when getting up and moving around. Patient stated unable to walk or sit up because of his back infection. Patient denies any headache or dizziness, denies any chest pain or shortness of breath, denies abdominal pain, nausea, vomiting, diarrhea or constipation. Patient denies any fever or chills. Patient discuss concern about his diet, stated can do something about my diet. Does not want to be on a diabetic diet. Discussed with patient patient's blood sugar is up and down and needs to be controlled and monitored. Patient discussed and stated "let me manage my blood sugar and I can maintain it to 110 all the time." Patient also complaining of pain medication stated wants to go home with pain medication because he cannot sit up due to lower back pain. And needed her pain his pain medication. Patient stated "I will pay anyone for the pain medication". Physical Exam Vital signs: Vital Signs 09/28/18 20:00 09/29/18 00:00 09/29/18 07:53 Temperature 98.7 F 98.3 F Pulse Rate 78 72 Respiratory Rate 18 18 9 L Blood Pressure 106/61 106/52 L Pulse Oximetry 97 97 09/29/18 08:00 09/29/18 12:00 Temperature 98.1 F 97.3 F L Pulse Rate 85 90 Respiratory Rate 18 18 Blood Pressure 141/77 H 141/57 H Pulse Oximetry 99 99 Intake & Output 09/28/18 09/29/18 09/29/18 19:59 06:59 18:59 Intake Total Output Total Balance Weight Intake: IV Mefoxin Inj 2 GM In D5W Inj 50 ML @ 200 mls/hr IV.SIG Q6H [facility] Rx#:[id number] Oral Output: Urine Other: Date of Last Bowel Movement Narrative: GENERAL: Well-developed, well-nourished, adult male in no apparent distress SKIN: Warm and dry. Right upper arm with redness and slight edema patient stated prior PICC line site. With tenderness to touch right radial pulse palpable left hand middle finger dressed dry and intact. Multiple prickly red rash in the back. Sacral excoriation HEAD: Atraumatic. Normocephalic. EYES: Pupils equal and round. No scleral icterus. No injection or drainage. ENT: No nasal bleeding or discharge. Mucous membranes pink and moist. NECK: Trachea midline. No JVD. CARDIOVASCULAR: Regular rate and rhythm. RESPIRATORY: No accessory muscle use. Clear to auscultation. Breath sounds equal bilaterally. GASTROINTESTINAL: Abdomen obese soft, non-tender, nondistended. Hepatic and splenic margins not palpable. MUSCULOSKELETAL: Extremities without clubbing, cyanosis, or edema. Right foot deformity with missing 3rd toe. left hand and middle finger surgical incision with stitches and dressing dry and intact, hand incision no redness no drainage NEUROLOGICAL: Awake and alert. No obvious cranial nerve deficits. Motor grossly within normal limits. Generalized weakness moving all 4 extremities normal speech. PSYCHIATRIC: Irritable mood and affect; insight and judgment poor. Results - Labs CBC & Chem 7: 09/28/18 08:50 09/27/18 09:52 Laboratory Results - last 24 hr 09/28/18 09/28/18 09/29/18 17:16 21:35 07:39 POC Glucose 340 H 274 H 135 H 09/29/18 12:17 POC Glucose 225 H Assessment and Plan - Assessment (1) Osteomyelitis Code(s): M86.9 - Osteomyelitis, unspecified Status: Acute (2) Diabetes Code(s): E11.9 - Type 2 diabetes mellitus without complications Status: Chronic (3) Strain of lumbar region Code(s): S39.012A - Strain of muscle, fascia and tendon of lower back, initial encounter Status: Acute (4) Lumbar radiculopathy Code(s): M54.16 - Radiculopathy, lumbar region Status: Acute (5) Suppurative tenosynovitis of flexor tendon of left hand Code(s): M65.142 - Other infective (teno)synovitis, left hand Status: Chronic (6) Abscess of hand, left Code(s): L02.512 - Cutaneous abscess of left hand Status: Acute (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 fib, and DM, with recent hospitalization for lumbar spine discitis currently on outpatient IV abx via PICC for OM, presented with complaint of clogged PICC line. Nonfunctioning PICC -PICC removed; new consult to IR placed -Nonoccluding thrombus; supportive care -Continue scheduled IV antibiotic -PICC line placement on hold per ID recommendation. Per discussion with infectious disease patient wanted to have treatment done in [place]. -Patient refusing the idea of a home health care nurse to administer his IV medication, stated it will be difficult for them to come to his house, however he stated that his house is nice however is unable to get around his kitchen, with conflicting statements Lumbar Discitis/Osteomyelitis/leukocytosis -MRI from 08/30/2018 showed epidural abscess causing regional stenosis at L4-L5 with extension beyond vertebral body -Neurosurgery recommended conservative management with IV antibiotics, sx only for bladder or extremity symptoms -Complete 8 weeks of PO Biaxin started on 08/27, IV Tygacil and Cefoxitin cont. 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 exterminator following resolution of infection for consideration of instrumentation (lumbar fusion) to resolve mechanical instability contributing to mechanical back pain Supportive tenosynovitis of flexor tendon of left hand -s/p Exploration, wash, repair of wound dehiscence, left palm/ring finger on -s/p ABX as above Chronic Pain -History of chronic pain with consistent Rx for oxycodone HCL 30 mg 3 times daily; most recent being filled 08/17/18 for #100 -We will control pain while hospitalized based on outpatient regimen; no discharge with pain medications as he needs to be followed by pain management Atrial fibrillation/hypertension -heart rate and blood pressure controlled -Continue Eliquis for anticoagulation -Continue diltiazem, ramipril and furosemide -Monitor heart rate and blood pressure Diabetes mellitus type 2 Blood sugar labile, patient's diet uncontrolled Monitor blood sugars before meals and at bedtime -Cover with insulin sliding scale -Continue Levemir -Diabetic diet, add bedtime snack -FBS low early am, decrease Levemir dose again today, was decreased dose yesterday too,and provide bedtime snack, patient stated he has been eating few meals a day and at night while at home, however his diet is controlled while in the hospital. Patient stated he did not have bedtime snack last night Psychosis/ Anxiety Possible Delusions/Schizoprenia -Consulted Psychiatric team, appreciate recommendation: start medication for anxiety such as gabapentin 300 mg p.o. 3 times daily or Vistaril 50 mg p.o. every 6 hours as needed. -Started patient on gabapentin will benefit both on psychosis and control of pain -Monitor response, monitor BMP DVT prophylaxis: Continue on Eliquis Discharge planning: Will need outpatient IV antibiotic Code Status: Full code Discussed Condition With: Patient and nurse Discharge Planning: Plan discharge with IV antibiotic with PIV and [facility] nurse to administer. Carie stated he have money to pay a nurse. enrollment services vice president for [facility] (1) Osteomyelitis Qualifiers: Osteomyelitis type: unspecified type Osteomyelitis location: unspecified site Qualified Code(s): M86.9 - Osteomyelitis, unspecified (3) Strain of lumbar region Qualifiers: Encounter type: initial encounter Qualified Code(s): S39.012A - Strain of muscle, fascia and tendon of lower back, initial encounter (8) Malfunction of peripheral inserted central catheter Qualifiers: Encounter type: initial encounter Qualified Code(s): T82.598A - Other mechanical complication of other cardiac and vascular devices and implants, initial encounter
[2018-09-29] MEDS: dilTIAZem CD 240 MG Capsule PO SCH (17:22)
[2018-09-30] MEDS: Acetaminophen 325 MG Tablet PO PRN (02:04)
[2018-09-30] MEDS: WATER IV.SIG SCH ×8 (04:29→21:27)
[2018-09-30] MEDS: DEXTROSE 5% IV.SIG SCH ×8 (04:29→21:27)
[2018-09-30] MEDS: CEFOXITIN IV.SIG SCH ×8 (04:29→21:27)
[2018-09-30] MEDS: Meloxicam 7.5 MG Tablet PO SCH ×2 (05:14→17:06)
[2018-09-30] MEDS: Baclofen 10 MG Tablet PO SCH ×3 (05:14→21:14)
[2018-09-30 06:46] LABS: Hemoglobin 8.5 gm/dL (13.0-17.0); Mean Corpuscular HGB Conc 32.8 % (32.0-36.0); Mean Corpuscular Hemoglobin 25.6 pg (27.0-34.0); Mean Corpuscular Volume 78.2 fL (80.0-100.0); Mean Platelet Volume 6.1 fL (7.0-11.0); Platelet Count 458 th/mm3 (150-450); Red Blood Count 3.33 mil/mm3 (4.50-5.90); Red Cell Distribution Width 17.1 % (11.6-17.2); White Blood Count 9.5 th/mm3 (4.0-11.0)
[2018-09-30 07:20] LABS: Anion Gap 8 meq/L (5-15); Blood Urea Nitrogen 19 mg/dL (7-18); Calcium 8.7 mg/dL (8.5-10.1); Carbon Dioxide 26.6 meq/L (21.0-32.0); Chloride 102 meq/L (98-107); Glomerular Filtration Rate Greater Than 89 mL/min (>89); Glucose,Random 103 mg/dL (74-106); Potassium 3.9 meq/L (3.5-5.1); Sodium 137 meq/L (136-145)
[2018-09-30] MEDS: Insulin NovoLOG Aspart Correctional Sugar Inj SQ SCH ×4 (07:43→21:19)
[2018-09-30] MEDS: Insulin Detemir Inj 1,000 UNIT/10 ML Vial SQ SCH ×3 (08:26→21:19)
[2018-09-30] MEDS: Ramipril 2.5 MG Capsule PO SCH (08:27)
[2018-09-30] MEDS: Gabapentin 300 MG Capsule PO SCH ×3 (08:28→17:06)
[2018-09-30] MEDS: Senna/Docusate Sodium 8.6/50 MG Tablet PO SCH ×2 (08:28→21:20)
[2018-09-30] MEDS: Furosemide 20 MG Tablet PO SCH ×2 (08:28→21:00)
[2018-09-30] MEDS: Sodium Chloride 0.9% 2 ML Flush BID IV.FLUSH SCH ×2 (08:35→21:27)
--- NOTE | 2018-09-30 14:44 | P.PNID ---
Subjective Remarks: Patient says he has continued pain in the back. No fever or chills. No SOB. Has elevated temperature of 100.5. Notes itching of the skin. Skin rash is not improved. Tigecycline was stopped 3 days ago. 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 Allergies/Adverse Reactions: Allergies No Known Drug Allergies Allergy (Verified 08/06/18 15:59) none *MDRO Multi-Drug Resistant Organism Adverse Reaction (Unknown, Uncoded 06/16/17 16:34) MRSA MRSA (foot wound) - 02/12/15, 11/12/16, 03/29/17; (toe) - 03/2016 Objective Vital Signs 09/29/18 16:00 09/29/18 20:00 09/30/18 00:00 Temperature 98.5 F 99.4 F 100.5 F H Pulse Rate 90 100 H 82 Respiratory Rate 18 20 18 Blood Pressure 111/70 111/61 115/60 Pulse Oximetry 99 99 99 09/30/18 04:00 09/30/18 08:00 09/30/18 12:00 Temperature 98.5 F 98.0 F 98.4 F Pulse Rate 72 83 Respiratory Rate 18 16 Blood Pressure 111/62 117/62 Pulse Oximetry 96 100 Intake & Output 09/29/18 09/30/18 09/30/18 18:59 06:59 18:59 Intake Total 3450 / 3450 150 / 150 50 / 50 Output Total 2200 / 2200 1700 / 1700 Balance 1250 / 1250 -1550 / -1550 50 / 50 Weight 9.1 kg Intake: IV 50 / 50 150 / 150 50 / 50 Mefoxin Inj 2 GM In D5W Inj 50 50 / 50 150 / 150 50 / 50 ML @ 200 mls/hr IV.SIG Q6H [facility] Rx#:[id number] Oral 3400 / 3400 Output: Urine 2200 / 2200 1700 / 1700 Other: Date of Last Bowel Movement 09/29/18 # Bowel Movements 1 09/23/18 13:55 Blood - Peripheral Aerobic Blood Culture - Final No growth in 5 days 09/23/18 13:55 Blood - Peripheral Anaerobic Blood Culture - Final No growth in 5 days 09/23/18 13:50 Blood - Peripheral Aerobic Blood Culture - Final No growth in 5 days 09/23/18 13:50 Blood - Peripheral Anaerobic Blood Culture - Final No growth in 5 days Lab - Hematology Results 09/30/18 06:04 WBC 9.5 RBC 3.33 L Hgb 8.5 L Hct 26.0 L MCV 78.2 L MCH 25.6 L MCHC 32.8 RDW 17.1 Plt Count 458 H MPV 6.1 L Lab - Chemistry Results 09/28/18 09/28/18 09/29/18 17:16 21:35 07:39 Sodium Potassium Chloride Carbon Dioxide Anion Gap BUN Creatinine Estimated GFR POC Glucose 340 H 274 H 135 H Random Glucose Calcium 09/29/18 09/29/18 09/29/18 12:17 17:19 22:15 Sodium Potassium Chloride Carbon Dioxide Anion Gap BUN Creatinine Estimated GFR POC Glucose 225 H 148 H 128 H Random Glucose Calcium 09/30/18 09/30/18 09/30/18 06:04 07:40 10:48 Sodium 137 Potassium 3.9 Chloride 102 Carbon Dioxide 26.6 Anion Gap 8 BUN 19 H Creatinine 0.78 Estimated GFR Greater than 89 POC Glucose 68 191 H Random Glucose 103 Calcium 8.7 Imaging: ITS Impressions Chest X-Ray 09/23/18 13:30 CONCLUSION: Negative examination. Venous Doppler Study 09/23/18 13:35 CONCLUSION: 1. Occlusive thrombus in the proximal and mid cephalic vein. 2. Deep venous system is otherwise patent. 3. Heterogeneous hypoechoic collection along the right shoulder which could represent a hematoma and/or seroma. Lumbar Spine MRI 09/25/18 00:00 CONCLUSION: 1. Findings are diagnostic of discitis osteomyelitis at L4-L5 with epidural abscess posterior to the L4 and L5 vertebral body. This epidural material along with facet hypertrophy moderately narrows the spinal canal at this level. There additionally is some perivertebral enhancing material likely representing small perivertebral abscess. It is challenging to compare to the prior study since it was significantly degraded by motion artifact. However, the findings are similar and do not appear improved. 2. There is mild edema within the L2 disc space and minimal endplate irregularity and enhancement of L2. These changes could be secondary to degenerative disc disease but cannot exclude early discitis. Suggest attention to this area at follow-up imaging. Physical Exam: PHYSICAL EXAMINATION: GENERAL: No acute distress. HEENT: Head atraumatic. Extraocular movements grossly intact. Pupils reactive to light, without icterus. Oropharynx: Moist mucosa. No visible lesions. No thrush. NECK: Supple without adenopathy or swelling. LUNGS: Clear breath sounds. HEART: Regular S1, S2, without murmurs, rubs or gallops. ABDOMEN: Bowel sounds present; flat, soft, no tenderness appreciated. EXTREMITIES: No clubbing or cyanosis or edema. SKIN: Maculopapular green rash on the back and arms and abdomen. NEUROLOGIC: Nonfocal. PSYCHIATRIC: Calm. Anxious. Assessment and Plan - Plan ASSESSMENT AND PLAN: 1. Catheter related infection from PICC line. 2. Thrombus of the right upper extremity related to PICC line. 3. Known diskitis and osteomyelitis of the lumbar spine, currently being treated with IV antibiotics. 4. 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 5. Chronic pain. 6. New fever. Skin rash not improving. RECOMMENDATIONS: 1. Continue the current treatment for osteomyelitis of the back. However because the MRI has not changed and the sed rate remain elevated and patient continues to have pain the antibiotics should be continued for a longer duration. 2. Blood cultures x2. 3. Repeat sedimentation rate. 4. Continue the Cefoxitin. 5. Continue Biaxin until 10/25/2018. 6. UA/culture and sensitivity if indicated. 7. Chest x-ray. 8. Give medication for the itching. 9. Consider neurosurgical reevaluation.
--- NOTE | 2018-09-30 15:53 | XR ---
EXAM DATE: 09/30/2018 3:42 PM EST AGE/SEX: 58 years / Male INDICATIONS: Evaluate pneumonia CLINICAL DATA: This is the patient's subsequent encounter. Patient reports that signs and symptoms h ave been present for 1 week and indicates a pain score of 0/10. MEDICAL/SURGICAL HISTORY: . Hypertension. Diabetes mellitus type II None. COMPARISON: [facility] – [place], CHEST 1V SINGLE AP, 09/23/2018. . FINDINGS: A single AP view of the chest demonstrates the lungs to be symmetrically aerated without evidence of mass, infiltrate or effusion. The cardiomediastinal contours are unremarkable. Osseous structures a re intact. CONCLUSION: No acute cardiopulmonary disease. Electronically signed by: Dawood Donnelly MD 09/30/2018 3:52 PM EST
[2018-09-30] MEDS: dilTIAZem CD 240 MG Capsule PO SCH (15:55)
--- NOTE | 2018-09-30 16:58 | P.PNIM ---
Subjective Interval history: Follow-up PICC line site phlebitis/thrombosis, osteomyelitis long-term antibiotic use, hypertension, hyperlipidemia, GERD, A. fib, DM and L4-5 discitis. Patient seen and examined, laying in bed, radiology chest did an x- ray. Patient complained of lower back pain stated the [place] does not work, wanted to have a long acting pain medication. Patient stated unable to walk, and unable to sit in a chair, due to his problem in his back. Patient denies any headache or dizziness, denies any chest pain or shortness of breath, denies any coughing, denies any fever or chills. Patient denies any abdominal pain, nausea, vomiting, diarrhea or constipation. Reported with elevated temperature of 100.5 however patient denies any feeling of fever or chills. Physical Exam Vital signs: Vital Signs 09/29/18 20:00 09/30/18 00:00 09/30/18 04:00 Temperature 99.4 F 100.5 F H 98.5 F Pulse Rate 100 H 82 Respiratory Rate 20 18 Blood Pressure 111/61 115/60 Pulse Oximetry 99 99 09/30/18 08:00 09/30/18 12:00 Temperature 98.0 F 98.4 F Pulse Rate 72 83 Respiratory Rate 18 16 Blood Pressure 111/62 117/62 Pulse Oximetry 96 100 Intake & Output 09/29/18 09/30/18 09/30/18 18:59 06:59 18:59 Intake Total 3450 / 3450 150 / 150 100 / 100 Output Total 2200 / 2200 1700 / 1700 Balance 1250 / 1250 -1550 / -1550 100 / 100 Weight 9.1 kg Intake: IV 50 / 50 150 / 150 100 / 100 Mefoxin Inj 2 GM In D5W Inj 50 50 / 50 150 / 150 100 / 100 ML @ 200 mls/hr IV.SIG Q6H ROBBIE Rx#:[id number] Oral 3400 / 3400 Output: Urine 2200 / 2200 1700 / 1700 Other: Date of Last Bowel Movement 09/29/18 # Bowel Movements 1 Narrative: GENERAL: Well-developed, well-nourished, adult male in no apparent distress SKIN: Warm and dry. Right upper arm with redness and slight edema patient stated prior PICC line site. With tenderness to touch right radial pulse palpable left hand middle finger dressed dry and intact. Multiple prickly red rash in the back. Sacral excoriation HEAD: Atraumatic. Normocephalic. EYES: Pupils equal and round. No scleral icterus. No injection or drainage. ENT: No nasal bleeding or discharge. Mucous membranes pink and moist. NECK: Trachea midline. No JVD. CARDIOVASCULAR: Regular rate and rhythm. RESPIRATORY: No accessory muscle use. Clear to auscultation. Breath sounds equal bilaterally. GASTROINTESTINAL: Abdomen obese soft, non-tender, nondistended. Hepatic and splenic margins not palpable. MUSCULOSKELETAL: Extremities without clubbing, cyanosis, or edema. Right foot deformity with missing 3rd toe. left hand and middle finger surgical incision with stitches and dressing dry and intact, hand incision no redness no drainage NEUROLOGICAL: Awake and alert. No obvious cranial nerve deficits. Motor grossly within normal limits. Generalized weakness moving all 4 extremities normal speech. PSYCHIATRIC: Irritable mood and affect; insight and judgment poor. Results - Labs CBC & Chem 7: 09/30/18 06:04 09/30/18 06:04 Laboratory Results - last 24 hr 09/29/18 09/29/18 09/30/18 17:19 22:15 06:04 WBC 9.5 RBC 3.33 L Hgb 8.5 L Hct 26.0 L MCV 78.2 L MCH 25.6 L MCHC 32.8 RDW 17.1 Plt Count 458 H MPV 6.1 L ESR Sodium Potassium Chloride Carbon Dioxide Anion Gap BUN Creatinine Estimated GFR POC Glucose 148 H 128 H Random Glucose Calcium 09/30/18 09/30/18 09/30/18 06:04 07:40 10:48 WBC RBC Hgb Hct MCV MCH MCHC RDW Plt Count MPV ESR Sodium 137 Potassium 3.9 Chloride 102 Carbon Dioxide 26.6 Anion Gap 8 BUN 19 H Creatinine 0.78 Estimated GFR Greater than 89 POC Glucose 68 191 H Random Glucose 103 Calcium 8.7 09/30/18 09/30/18 15:52 15:54 WBC RBC Hgb Hct MCV MCH MCHC RDW Plt Count MPV ESR Greater than 140 H Sodium Potassium Chloride Carbon Dioxide Anion Gap BUN Creatinine Estimated GFR POC Glucose 193 H Random Glucose Calcium - Imaging Impressions Chest X-Ray 09/30/18 14:47 CONCLUSION: No acute cardiopulmonary disease. Assessment and Plan - Assessment (1) Osteomyelitis Code(s): M86.9 - Osteomyelitis, unspecified Status: Acute (2) Diabetes Code(s): E11.9 - Type 2 diabetes mellitus without complications Status: Chronic (3) Strain of lumbar region Code(s): S39.012A - Strain of muscle, fascia and tendon of lower back, initial encounter Status: Acute (4) Lumbar radiculopathy Code(s): M54.16 - Radiculopathy, lumbar region Status: Acute (5) Suppurative tenosynovitis of flexor tendon of left hand Code(s): M65.142 - Other infective (teno)synovitis, left hand Status: Chronic (6) Abscess of hand, left Code(s): L02.512 - Cutaneous abscess of left hand Status: Acute (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 fib, and DM, with recent hospitalization for lumbar spine discitis currently on outpatient IV abx via PICC for OM, presented with complaint of clogged PICC line. Nonfunctioning PICC -PICC removed; new consult to IR placed -Nonoccluding thrombus; supportive care -Continue scheduled IV antibiotic -PICC line placement on hold per ID recommendation. Per discussion with infectious disease patient wanted to have treatment done in [place]. -Patient refusing the idea of a home health care nurse to administer his IV medication, stated it will be difficult for them to come to his house, however he stated that his house is nice however is unable to get around his kitchen, with conflicting statements Lumbar Discitis/Osteomyelitis/leukocytosis -MRI from 08/30/2018 showed epidural abscess causing regional stenosis at L4-L5 with extension beyond vertebral body -Neurosurgery recommended conservative management with IV antibiotics, sx only for bladder or extremity symptoms -Complete 8 weeks of PO Biaxin started on 08/27, IV Tygacil and Cefoxitin cont. until 11/9 per ID -ID consult appreciated recommendation -Monitor CBC and BMP - Reviewed previous record with neurosurgeon 09/13/18: recommended LSO brace to help with mechanical back pain/ Monitor long term care social worker following resolution of infection for consideration of instrumentation (lumbar fusion) to resolve mechanical instability contributing to mechanical back pain Supportive tenosynovitis of flexor tendon of left hand -s/p Exploration, wash, repair of wound dehiscence, left palm/ring finger on -s/p ABX as above Chronic Pain -History of chronic pain with consistent Rx for oxycodone HCL 30 mg 3 times daily; most recent being filled 08/17/18 for #100 -We will control pain while hospitalized based on outpatient regimen; no discharge with pain medications as he needs to be followed by pain management -started on gabapentin monitor response Atrial fibrillation/hypertension -heart rate and blood pressure controlled -Continue Eliquis for anticoagulation -Continue diltiazem, ramipril and furosemide -Monitor heart rate and blood pressure Diabetes mellitus type 2 Blood sugar labile, patient's diet uncontrolled Monitor blood sugars before meals and at bedtime -Cover with insulin sliding scale -Continue Levemir -Diabetic diet, add bedtime snack -FBS low early am, decrease Levemir dose again today, was decreased dose yesterday too,and provide bedtime snack, patient stated he has been eating few meals a day and at night while at home, however his diet is controlled while in the hospital. Patient stated he did not have bedtime snack last night Psychosis/ Anxiety Possible Delusions/Schizoprenia -Consulted Psychiatric team, appreciate recommendation: start medication for anxiety such as gabapentin 300 mg p.o. 3 times daily or Vistaril 50 mg p.o. every 6 hours as needed. -Started patient on gabapentin will benefit both on psychosis and control of pain -Monitor response, monitor BMP DVT prophylaxis: Continue on Eliquis Discharge planning: Will need outpatient IV antibiotic Code Status: full code Discussed Condition With: patient and nurse ID: Dr Mauro Discharge Planning: Plan discharge with IV antibiotic with [facility] and [facility] nurse to administer. Carie stated he have money to pay a nurse. 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
[2018-10-01] MEDS ORDERED: Morphine Inj 4 MG/ML Vial IV.PUSH ONE (02:48)
[2018-10-01] MEDS: CEFOXITIN IV.SIG SCH ×8 (03:58→21:39)
[2018-10-01] MEDS: WATER IV.SIG SCH ×8 (03:58→21:39)
[2018-10-01] MEDS: DEXTROSE 5% IV.SIG SCH ×8 (03:58→21:39)
[2018-10-01] MEDS: Baclofen 10 MG Tablet PO SCH ×3 (05:54→21:39)
[2018-10-01] MEDS: Meloxicam 7.5 MG Tablet PO SCH ×2 (05:54→17:19)
[2018-10-01 05:57] LABS: Bilirubin,Urine Negative (Negative); Clarity,Urine Clear (Clear); Color,Urine Yellow (Yellw/Straw); Glucose,Urine (UA) Negative (Negative); Hyaline Casts,Urine 5 /lpf (0-3); Leukocyte Esterase,Urine Negative (Negative); Mucus,Urine Few /lpf (Occasional); Nitrite,Urine Negative (Negative); Specific Gravity,Urine 1.017 (1.002-1.035)
[2018-10-01 08:30] LABS: Baso # (Auto) 0.1 th/mm3 (0.0-0.2); Baso % (Auto) 0.9 % (0.0-2.0); Eos # (Auto) 0.2 th/mm3 (0.0-0.4); Hematocrit 24.8 % (39.0-51.0); Hemoglobin 8.3 gm/dL (13.0-17.0); Lymph # (Auto) 1.9 th/mm3 (1.0-4.8); Mean Corpuscular HGB Conc 33.3 % (32.0-36.0); Mean Corpuscular Hemoglobin 25.9 pg (27.0-34.0); Mean Corpuscular Volume 77.7 fL (80.0-100.0); Mean Platelet Volume 6.2 fL (7.0-11.0); Mono # (Auto) 1.2 th/mm3 (0.0-0.9); Mono % (Auto) 10.5 % (0.0-8.0); Neut # (Auto) 7.9 th/mm3 (1.8-7.7); Neut % (Auto) 69.6 % (16.0-70.0); Platelet Count 442 th/mm3 (150-450); Red Blood Count 3.19 mil/mm3 (4.50-5.90); Red Cell Distribution Width 16.8 % (11.6-17.2); White Blood Count 11.3 th/mm3 (4.0-11.0)
[2018-10-01] MEDS: Insulin NovoLOG Aspart Correctional Sugar Inj SQ SCH ×4 (09:08→21:55)
[2018-10-01] MEDS: Sodium Chloride 0.9% 2 ML Flush BID IV.FLUSH SCH ×2 (09:11→21:00)
[2018-10-01] MEDS: Gabapentin 300 MG Capsule PO SCH ×3 (09:12→17:19)
[2018-10-01] MEDS: Furosemide 20 MG Tablet PO SCH ×2 (09:12→21:40)
[2018-10-01] MEDS: Senna/Docusate Sodium 8.6/50 MG Tablet PO SCH ×2 (09:12→21:40)
[2018-10-01] MEDS: Ramipril 2.5 MG Capsule PO SCH (09:13)
[2018-10-01] MEDS: Insulin Detemir Inj 1,000 UNIT/10 ML Vial SQ SCH ×2 (09:13→21:44)
--- NOTE | 2018-10-01 13:02 | P.PNID ---
Subjective Remarks: Patient says he has continued pain in the back. He is laying in bed with his legs over the lower part of the bed onto the floor because he gets relief in that position. Afebrile. He has no other complaints besides the pain. Has some itching of the skin. Chest x-ray has no infiltrate. Urinalysis unremarkable. Culture negative in 1 day. Currently on empiric antibiotics for osteomyelitis. Repeat sedimentation rate increased to 140. 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 Allergies/Adverse Reactions: Allergies No Known Drug Allergies Allergy (Verified 08/06/18 15:59) none *MDRO Multi-Drug Resistant Organism Adverse Reaction (Unknown, Uncoded 06/16/17 16:34) MRSA MRSA (foot wound) - 02/12/15, 11/12/16, 03/29/17; (toe) - 03/2016 Objective Vital Signs 09/30/18 16:00 09/30/18 20:00 09/30/18 21:44 Temperature 97.6 F 98.8 F Pulse Rate 88 78 Respiratory Rate 17 18 18 Blood Pressure 114/70 111/56 L Pulse Oximetry 98 98 10/01/18 00:00 10/01/18 01:42 10/01/18 02:58 Temperature 98.8 F Pulse Rate 82 Respiratory Rate 18 17 17 Blood Pressure 119/57 L Pulse Oximetry 98 10/01/18 05:35 Temperature Pulse Rate Respiratory Rate 18 Blood Pressure Pulse Oximetry Intake & Output 09/30/18 10/01/18 10/01/18 18:59 06:59 18:59 Intake Total 1300 / 1300 580 / 580 50 / 50 Output Total 950 / 950 900 / 900 Balance 350 / 350 -320 / -320 50 / 50 Weight 91.5 kg Intake: IV 100 / 100 100 / 100 50 / 50 Mefoxin Inj 2 GM In D5W Inj 50 100 / 100 100 / 100 50 / 50 ML @ 200 mls/hr IV.SIG Q6H ROBBIE Rx#:[id number] Oral 1200 / 1200 480 / 480 Output: Urine 950 / 950 900 / 900 Other: Date of Last Bowel Movement 09/29/18 # Bowel Movements 0 09/30/18 15:45 Blood - Peripheral Aerobic Blood Culture - Preliminary No growth in 1 day 09/30/18 15:45 Blood - Peripheral Anaerobic Blood Culture - Preliminary No growth in 1 day 09/30/18 15:54 Blood - Peripheral Aerobic Blood Culture - Preliminary No growth in 1 day 09/30/18 15:54 Blood - Peripheral Anaerobic Blood Culture - Preliminary No growth in 1 day 09/23/18 13:55 Blood - Peripheral Aerobic Blood Culture - Final No growth in 5 days 09/23/18 13:55 Blood - Peripheral Anaerobic Blood Culture - Final No growth in 5 days 09/23/18 13:50 Blood - Peripheral Aerobic Blood Culture - Final No growth in 5 days 09/23/18 13:50 Blood - Peripheral Anaerobic Blood Culture - Final No growth in 5 days Lab - Hematology Results 09/30/18 09/30/18 10/01/18 06:04 15:54 07:52 WBC 9.5 11.3 H RBC 3.33 L 3.19 L Hgb 8.5 L 8.3 L Hct 26.0 L 24.8 L MCV 78.2 L 77.7 L MCH 25.6 L 25.9 L MCHC 32.8 33.3 RDW 17.1 16.8 Plt Count 458 H 442 MPV 6.1 L 6.2 L Neut % (Auto) 69.6 Lymph % (Auto) 17.0 [place] % (Auto) 10.5 H Eos % (Auto) 2.0 Baso % (Auto) 0.9 Neut # (Auto) 7.9 H Lymph # (Auto) 1.9 [place] # (Auto) 1.2 H Eos # (Auto) 0.2 Baso # (Auto) 0.1 WBC Differential . Differential Comment Auto diff final ESR Greater than 140 H Lab - Chemistry Results 09/29/18 09/29/18 09/30/18 17:19 22:15 06:04 Sodium 137 Potassium 3.9 Chloride 102 Carbon Dioxide 26.6 Anion Gap 8 BUN 19 H Creatinine 0.78 Estimated GFR Greater than 89 POC Glucose 148 H 128 H Random Glucose 103 Calcium 8.7 09/30/18 09/30/18 09/30/18 07:40 10:48 15:52 Sodium Potassium Chloride Carbon Dioxide Anion Gap BUN Creatinine Estimated GFR POC Glucose 68 191 H 193 H Random Glucose Calcium 09/30/18 10/01/18 10/01/18 21:18 08:22 11:19 Sodium Potassium Chloride Carbon Dioxide Anion Gap BUN Creatinine Estimated GFR POC Glucose 336 H 222 H 303 H Random Glucose Calcium Imaging: ITS Impressions Venous Doppler Study 09/23/18 13:35 CONCLUSION: 1. Occlusive thrombus in the proximal and mid cephalic vein. 2. Deep venous system is otherwise patent. 3. Heterogeneous hypoechoic collection along the right shoulder which could represent a hematoma and/or seroma. Lumbar Spine MRI 09/25/18 00:00 CONCLUSION: 1. Findings are diagnostic of discitis osteomyelitis at L4-L5 with epidural abscess posterior to the L4 and L5 vertebral body. This epidural material along with facet hypertrophy moderately narrows the spinal canal at this level. There additionally is some perivertebral enhancing material likely representing small perivertebral abscess. It is challenging to compare to the prior study since it was significantly degraded by motion artifact. However, the findings are similar and do not appear improved. 2. There is mild edema within the L2 disc space and minimal endplate irregularity and enhancement of L2. These changes could be secondary to degenerative disc disease but cannot exclude early discitis. Suggest attention to this area at follow-up imaging. Chest X-Ray 09/30/18 14:47 CONCLUSION: No acute cardiopulmonary disease. Physical Exam: PHYSICAL EXAMINATION: GENERAL: No acute distress. HEENT: Head atraumatic. Extraocular movements grossly intact. Pupils reactive to light, without icterus. Oropharynx: Moist mucosa. No visible lesions. No thrush. NECK: Supple without adenopathy or swelling. LUNGS: Clear breath sounds. HEART: Regular S1, S2, without murmurs, rubs or gallops. ABDOMEN: Bowel sounds present; flat, soft, no tenderness appreciated. EXTREMITIES: No clubbing or cyanosis or edema. SKIN: Maculopapular green rash fading on the back and arms and abdomen. NEUROLOGIC: Nonfocal. PSYCHIATRIC: Anxious. Assessment and Plan - Plan ASSESSMENT AND PLAN: 1. Catheter related infection from PICC line. 2. Thrombus of the right upper extremity related to PICC line. 3. Known diskitis and osteomyelitis of the lumbar spine, currently being treated with empiric IV antibiotics with antibiotics directed at Mycobacterium Abscessus because that is the bacteria which was cultured from the left hand. He did not respond to vancomycin which was given previously. Does not appear to be improving despite antibiotics. Patient notes pain going down his left leg. The severity of his pain has not changed. Notes that it is still very severe. 4. 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 5. Chronic pain. 6. New fever. Blood culture pending. RECOMMENDATIONS: 1. Continue the current treatment for osteomyelitis of the back. However because the MRI has not changed and the sed rate remain elevated and patient continues to have pain the antibiotics should be continued. I Recommend also that he be reevaluated by neurosurgery to determine surgical option. I do not think he is responding to antibiotics but it may be that he does not have bacterial infection or antibiotics are not adequate. However with negative culture is not possible to determine the correct antibiotics with certainty. We may at least need new surgical sampling of the disc space for culture in hopes that we may recover bacteria. 2. Follow the blood cultures until final. 3. Continue the Cefoxitin. 4. Continue Biaxin until 10/25/2018.
--- NOTE | 2018-10-01 14:46 | P.PNIM ---
Subjective Interval history: Follow-up PICC line site phlebitis/thrombosis, osteomyelitis long-term antibiotic use, hypertension, hyperlipidemia, GERD, A. fib, DM and L4-5 discitis. Patient seen and examined laying in bed complaining of low back pain stated just want pain meds medication to go home with. Patient denies any headache or dizziness, denies any abdominal pain, nausea, vomiting, diarrhea or constipation. Patient stated had been going to the bathroom for bowel movement however complaint of lower back hurting with movement, with standing up and with activity. Patient denies any fever or chills. Physical Exam Vital signs: Vital Signs 09/30/18 16:00 09/30/18 20:00 09/30/18 21:44 Temperature 97.6 F 98.8 F Pulse Rate 88 78 Respiratory Rate 17 18 18 Blood Pressure 114/70 111/56 L Pulse Oximetry 98 98 10/01/18 00:00 10/01/18 01:42 10/01/18 02:58 Temperature 98.8 F Pulse Rate 82 Respiratory Rate 18 17 17 Blood Pressure 119/57 L Pulse Oximetry 98 10/01/18 05:35 10/01/18 08:00 10/01/18 12:00 Temperature 98.7 F 98.6 F Pulse Rate 86 84 Respiratory Rate 18 15 18 Blood Pressure 121/64 111/60 Pulse Oximetry 99 100 Intake & Output 09/30/18 10/01/18 10/01/18 18:59 06:59 18:59 Intake Total 1300 / 1300 580 / 580 50 / 50 Output Total 950 / 950 900 / 900 Balance 350 / 350 -320 / -320 50 / 50 Weight 91.5 kg Intake: IV 100 / 100 100 / 100 50 / 50 Mefoxin Inj 2 GM In D5W Inj 50 100 / 100 100 / 100 50 / 50 ML @ 200 mls/hr IV.SIG Q6H ROBBIE Rx#:[id number] Oral 1200 / 1200 480 / 480 Output: Urine 950 / 950 900 / 900 Other: Date of Last Bowel Movement 09/29/18 09/29/18 # Bowel Movements 0 Narrative: GENERAL: Well-developed, well-nourished, adult male in no apparent distress SKIN: Warm and dry. Right upper arm with redness and slight edema patient stated prior PICC line site. With tenderness to touch right radial pulse palpable left hand middle finger dressed dry and intact. Multiple prickly red rash in the back. Sacral excoriation HEAD: Atraumatic. Normocephalic. EYES: Pupils equal and round. No scleral icterus. No injection or drainage. ENT: No nasal bleeding or discharge. Mucous membranes pink and moist. NECK: Trachea midline. No JVD. CARDIOVASCULAR: Regular rate and rhythm. RESPIRATORY: No accessory muscle use. Clear to auscultation. Breath sounds equal bilaterally. GASTROINTESTINAL: Abdomen obese soft, non-tender, nondistended. Hepatic and splenic margins not palpable. MUSCULOSKELETAL: Extremities without clubbing, cyanosis, or edema. Right foot deformity with missing 3rd toe. left hand and middle finger surgical incision with stitches and dressing dry and intact, hand incision no redness no drainage NEUROLOGICAL: Awake and alert. No obvious cranial nerve deficits. Motor grossly within normal limits. Generalized weakness moving all 4 extremities normal speech. PSYCHIATRIC: Irritable mood and affect; insight and judgment poor. Results - Labs CBC & Chem 7: 10/01/18 07:52 09/30/18 06:04 Laboratory Results - last 24 hr 09/30/18 09/30/18 09/30/18 15:52 15:54 21:18 WBC RBC Hgb Hct MCV MCH MCHC RDW Plt Count MPV Neut % (Auto) Lymph % (Auto) Dixon % (Auto) Eos % (Auto) Baso % (Auto) Neut # (Auto) Lymph # (Auto) Dixon # (Auto) Eos # (Auto) Baso # (Auto) WBC Differential Differential Comment ESR Greater than 140 H POC Glucose 193 H 336 H Urine Color Urine Clarity Urine pH Ur Specific [place] Urine Protein Urine Glucose (UA) Urine Ketones Urine Occult Blood Urine Nitrate Urine Bilirubin Urine Urobilinogen Ur Leukocyte Esterase Urine RBC Urine WBC Hyaline Casts Urine Mucus Micro UA Comment Ur Microscopic Review Urine Culture Comments 10/01/18 10/01/18 10/01/18 05:00 07:52 08:22 WBC 11.3 H RBC 3.19 L Hgb 8.3 L Hct 24.8 L MCV 77.7 L MCH 25.9 L MCHC 33.3 RDW 16.8 Plt Count 442 MPV 6.2 L Neut % (Auto) 69.6 Lymph % (Auto) 17.0 Dixon % (Auto) 10.5 H Eos % (Auto) 2.0 Baso % (Auto) 0.9 Neut # (Auto) 7.9 H Lymph # (Auto) 1.9 Dixon # (Auto) 1.2 H Eos # (Auto) 0.2 Baso # (Auto) 0.1 WBC Differential . Differential Comment Auto diff final ESR POC Glucose 222 H Urine Color Yellow Urine Clarity Clear Urine pH 6.0 Ur Specific [place] 1.017 Urine Protein Negative Urine Glucose (UA) Negative Urine Ketones Negative Urine Occult Blood Negative Urine Nitrate Negative Urine Bilirubin Negative Urine Urobilinogen Less than 2 Ur Leukocyte Esterase Negative Urine RBC Less than 1 Urine WBC 2 Hyaline Casts 5 Urine Mucus Few H Micro UA Comment Culture not ind Ur Microscopic Review Not Reportable Urine Culture Comments Culture not ind 10/01/18 11:19 WBC RBC Hgb Hct MCV MCH MCHC RDW Plt Count MPV Neut % (Auto) Lymph % (Auto) Dixon % (Auto) Eos % (Auto) Baso % (Auto) Neut # (Auto) Lymph # (Auto) Dixon # (Auto) Eos # (Auto) Baso # (Auto) WBC Differential Differential Comment ESR POC Glucose 303 H Urine Color Urine Clarity Urine pH Ur Specific [place] Urine Protein Urine Glucose (UA) Urine Ketones Urine Occult Blood Urine Nitrate Urine Bilirubin Urine Urobilinogen Ur Leukocyte Esterase Urine RBC Urine WBC Hyaline Casts Urine Mucus Micro UA Comment Ur Microscopic Review Urine Culture Comments Microbiology 09/30/18 15:45 Blood - Peripheral Aerobic Blood Culture - Preliminary No growth in 1 day 09/30/18 15:45 Blood - Peripheral Anaerobic Blood Culture - Preliminary No growth in 1 day 09/30/18 15:54 Blood - Peripheral Aerobic Blood Culture - Preliminary No growth in 1 day 09/30/18 15:54 Blood - Peripheral Anaerobic Blood Culture - Preliminary No growth in 1 day - Imaging Impressions Chest X-Ray 09/30/18 14:47 CONCLUSION: No acute cardiopulmonary disease. Assessment and Plan - Assessment (1) Osteomyelitis Code(s): M86.9 - Osteomyelitis, unspecified Status: Acute (2) Diabetes Code(s): E11.9 - Type 2 diabetes mellitus without complications Status: Chronic (3) Strain of lumbar region Code(s): S39.012A - Strain of muscle, fascia and tendon of lower back, initial encounter Status: Acute (4) Lumbar radiculopathy Code(s): M54.16 - Radiculopathy, lumbar region Status: Acute (5) Suppurative tenosynovitis of flexor tendon of left hand Code(s): M65.142 - Other infective (teno)synovitis, left hand Status: Chronic (6) Abscess of hand, left Code(s): L02.512 - Cutaneous abscess of left hand Status: Acute (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 fib, and DM, with recent hospitalization for lumbar spine discitis currently on outpatient IV abx via PICC for OM, presented with complaint of clogged PICC line. Nonfunctioning PICC -PICC removed; new consult to IR placed -Nonoccluding thrombus; supportive care -Continue scheduled IV antibiotic -PICC line placement on hold per ID recommendation. Per discussion with infectious disease patient wanted to have treatment done in [place]. -Patient refusing the idea of a home health care nurse to administer his IV medication, stated it will be difficult for them to come to his house, however he stated that his house is nice however is unable to get around his kitchen, with conflicting statements Lumbar Discitis/Osteomyelitis/leukocytosis -MRI from 08/30/2018 showed epidural abscess causing regional stenosis at L4-L5 with extension beyond vertebral body -Neurosurgery recommended conservative management with IV antibiotics, sx only for bladder or extremity symptoms -Complete 8 weeks of PO Biaxin started on 08/27, IV Tygacil and Cefoxitin cont. 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 Ignacio -Neurosurgical consultation appreciate recommendation : stabilize his spine with instrumentation from L2-S1 and simultaneously do a laminectomy at L4/5 to get cultures. Plan for surgery tomorrow, n.p.o. after midnight. Discussed with Dr. King Supportive tenosynovitis of flexor tendon of left hand -s/p Exploration, wash, repair of wound dehiscence, left palm/ring finger on -s/p ABX as above Chronic Pain -History of chronic pain with consistent Rx for oxycodone HCL 30 mg 3 times daily; most recent being filled 08/17/18 for #100 -We will control pain while hospitalized based on outpatient regimen; no discharge with pain medications as he needs to be followed by pain management -started on gabapentin -monitor response Atrial fibrillation/hypertension -heart rate and blood pressure controlled -Continue Eliquis for anticoagulation -Continue diltiazem, ramipril and furosemide -Monitor heart rate and blood pressure Diabetes mellitus type 2 Blood sugar labile, patient's diet uncontrolled Monitor blood sugars before meals and at bedtime -Cover with insulin sliding scale -Continue Levemir -Diabetic diet, add bedtime snack -FBS low early am, decrease Levemir dose again today, was decreased dose yesterday too,and provide bedtime snack, patient stated he has been eating few meals a day and at night while at home, however his diet is controlled while in the hospital. Patient stated he did not have bedtime snack last night Psychosis/ Anxiety Possible Delusions/Schizoprenia -Consulted Psychiatric team, appreciate recommendation: start medication for anxiety such as gabapentin 300 mg p.o. 3 times daily or Vistaril 50 mg p.o. every 6 hours as needed. -Started patient on gabapentin will benefit both on psychosis and control of pain -Monitor response, monitor BMP DVT prophylaxis: Continue on Eliquis Discharge planning: Will need outpatient IV antibiotic Code Status: Full code Discussed Condition With: Patient and nurse, nurse labor relations manager Dr. Palma ID Dr. Ignacio Neurosurgery Dr. PEREA Discharge Planning: Plan discharge with IV antibiotic with [facility] and [facility] nurse to administer. Carie stated he have money to pay a nurse. business services officer for [facility] (1) Osteomyelitis Qualifiers: Osteomyelitis type: unspecified type Osteomyelitis location: unspecified site Qualified Code(s): M86.9 - Osteomyelitis, unspecified (3) Strain of lumbar region Qualifiers: Encounter type: initial encounter Qualified Code(s): S39.012A - Strain of muscle, fascia and tendon of lower back, initial encounter (8) Malfunction of peripheral inserted central catheter Qualifiers: Encounter type: initial encounter Qualified Code(s): T82.598A - Other mechanical complication of other cardiac and vascular devices and implants, initial encounter
--- NOTE | 2018-10-01 15:06 | P.CONNS ---
History of Present Illness Service: ID Primary Care Provider: UNKNOWN Chief Complaint: back pain History of Present Illness: 58yoM who has been treated with IV abx since mid July for presumed L4/5 osteo. He endorses pain when he stands for a short time and is most comfortable lying down. Needle aspirate in July was negative though he had a mycobacterial hand infection. Was treated with IV Vancomycin until a few weeks ago, two PIC lines became dysfunctional, not an IVDU, but does endorse severe back pain. Has been prone to infection in the past with several amputations and history of PIC lines in the past. Unclear source. MRI from this admission shows no real improvement and pain is still severe, ESR back up to >140. Consulted requested by Dr. Ignacio for better source control, clarity on cultures. Patient readmitted with clotted pic line. Patient still in severe pain and lying down, because when he moves (rolls) he gets severe pain , particularly down the left leg. Does not have bowel or bladder dysfunction. [facility] - History History Provided By: Patient - Medical History Medical History: Medical History (Last Reviewed 09/28/18 @ 12:46 by Forrest Ng DO) Amputated toe GERD (gastroesophageal reflux disease) Hyperlipidemia Afib Back pain Diabetes Hypertension Osteomyelitis - Surgical History Surgical History: Surgical History (Last Reviewed 09/28/18 @ 12:46 by Forrest Ng DO) H/O foot surgery - Family History Family History: Family History (Last Reviewed 09/23/18 @ 17:44 by RAFA Dunlap) Other Coronary artery disease - Tobacco History Second Hand Smoke Exposure: No Smoking Status: Never smoker - Alcohol History How Often Do You Have a Drink Containing Alcohol: Never - Substance Use History Substance History: No History of Abuse - Travel History Recent Travel in the [place] Within the Last 8 Weeks: No Recent Travel Out of the Country Within the Last 8 Weeks: No - Immunization History Tetanus Immunization: <5 Years Hx Influenza Vaccine This Season: No Medications and Allergies Active Medications: Active Medications Acetaminophen (Tylenol) 650 mg PO Q4H PRN PRN Reason: Temp > 100.4 Last Admin: 09/30/18 02:04 Dose: 650 mg Al Hydroxide/Mg Hydroxide (Milk Of Magnesia Liq) 30 ml PO Q12H PRN PRN Reason: Mild Constipation Last Admin: 09/29/18 09:03 Dose: 30 ml Apixaban (Eliquis) 5 mg PO BID [facility] Last Admin: 10/01/18 09:13 Dose: 5 mg Baclofen (Lioresal) 10 mg PO Q8HR [facility] Last Admin: 10/01/18 13:03 Dose: 10 mg Bisacodyl (Dulcolax Supp) 10 mg RECTAL DAILY PRN PRN Reason: SEVERE CONSITIPATION Clarithromycin (Biaxin) 500 mg PO Q12H [facility] Last Admin: 10/01/18 05:54 Dose: 500 mg Dextrose (D50w Vial) 50 ml IV.PUSH UNSCH PRN PRN Reason: PER HYPOGLYCEMIA PROTOCOL Diltiazem HCl (Cardizem Cd 24hr) 240 mg PO Q24H [facility] Last Admin: 09/30/18 15:55 Dose: 240 mg Furosemide (Lasix) 20 mg PO BID [facility] Last Admin: 10/01/18 09:12 Dose: 20 mg Gabapentin (Neurontin) 300 mg PO TID [facility] Last Admin: 10/01/18 13:03 Dose: 300 mg Glucagon (Glucagon Inj) 1 mg OTHER PRN PRN PRN Reason: for Hypoglycemia Protocol Hydrocortisone Acetate (Hydrocortisone 1% Cream) 1 applicatio TOPICAL TID [facility] Last Admin: 10/01/18 13:04 Dose: 1 applicatio Cefoxitin Sodium 2 gm/ (Dextrose) 50 mls @ 200 mls/hr IV.SIG Q6H [facility] Last Infusion: 10/01/18 11:52 Dose: Infused Insulin Aspart (Novolog Insulin Correctional Sugar Inj) 0 unit SQ [facility]; Protocol Last Admin: 10/01/18 13:04 Dose: 10 unit Insulin Detemir (Levemir Inj) 30 unit SQ HS [facility] Last Admin: 09/30/18 21:19 Dose: 30 unit Insulin Detemir (Levemir Inj) 20 unit SQ DAILY [facility] Last Admin: 10/01/18 09:13 Dose: 20 unit Lactulose (Lactulose Liq) 30 ml PO DAILY PRN PRN Reason: SEVERE CONSITIPATION Meloxicam (Mobic) 7.5 mg PO Q12H [facility] Last Admin: 10/01/18 05:54 Dose: 7.5 mg Ondansetron HCl (Zofran Inj) 4 mg IV.PUSH Q6H PRN PRN Reason: NAUSEA OR VOMITING Last Admin: 10/01/18 02:56 Dose: 4 mg Oxycodone HCl (Roxicodone) 30 mg PO Q4H PRN PRN Reason: PAIN 1-10 Last Admin: 10/01/18 13:18 Dose: 30 mg Pantoprazole Sodium (Protonix) 40 mg PO DAILY [facility] Last Admin: 10/01/18 09:12 Dose: 40 mg Ramipril (Altace) 2.5 mg PO DAILY [facility] Last Admin: 10/01/18 09:13 Dose: 2.5 mg Senna/Docusate Sodium (Aliyah-Colace) 1 tab PO BID [facility] Last Admin: 10/01/18 09:12 Dose: 1 tab Sennosides (Senokot) 17.2 mg PO Q12H PRN PRN Reason: Moderate Constipation Sodium Chloride (Ns Flush) 2 ml IV.FLUSH BID [facility] Last Admin: 10/01/18 09:11 Dose: 2 ml Sodium Chloride (Ns Flush) 2 ml IV.FLUSH PRN PRN PRN Reason: FLUSH AFTER USING IV ACCESS Allergies Allergy/AdvReac Type Severity Reaction Status Date / Time No Known Drug Allergies Allergy none Verified 08/06/18 15:59 *MDRO Multi-Drug Resistant AdvReac Unknown MRSA Uncoded 06/16/17 16:34 Organism Home Medications Medication Instructions Recorded Confirmed Type apixaban [Eliquis] 5 mg PO BID 06/09/18 09/23/18 History diltiazem HCl 240 mg PO DAILY 06/09/18 09/23/18 History furosemide 20 mg PO BID 06/09/18 09/23/18 History insulin glargine [Lantus Solostar 50 unit SUB-Q BID 06/09/18 09/23/18 History U-100 Insulin] pantoprazole [Protonix] 40 mg PO DAILY 06/09/18 09/23/18 History ramipril 2.5 mg PO DAILY 06/09/18 09/23/18 History oxycodone 30 mg PO Q4H PRN 07/22/18 09/23/18 History Exam Vital signs: Vital Signs 09/30/18 16:00 09/30/18 20:00 09/30/18 21:44 Temperature 97.6 F 98.8 F Pulse Rate 88 78 Respiratory Rate 17 18 18 Blood Pressure 114/70 111/56 L Pulse Oximetry 98 98 10/01/18 00:00 10/01/18 01:42 10/01/18 02:58 Temperature 98.8 F Pulse Rate 82 Respiratory Rate 18 17 17 Blood Pressure 119/57 L Pulse Oximetry 98 10/01/18 05:35 10/01/18 08:00 10/01/18 12:00 Temperature 98.7 F 98.6 F Pulse Rate 86 84 Respiratory Rate 18 15 18 Blood Pressure 121/64 111/60 Pulse Oximetry 99 100 Intake & Output 09/30/18 10/01/18 10/01/18 18:59 06:59 18:59 Intake Total 1300 / 1300 580 / 580 50 / 50 Output Total 950 / 950 900 / 900 Balance 350 / 350 -320 / -320 50 / 50 Weight 91.5 kg Intake: IV 100 / 100 100 / 100 50 / 50 Mefoxin Inj 2 GM In D5W Inj 50 100 / 100 100 / 100 50 / 50 ML @ 200 mls/hr IV.SIG Q6H ROBBIE Rx#:[id number] Oral 1200 / 1200 480 / 480 Output: Urine 950 / 950 900 / 900 Other: Date of Last Bowel Movement 09/29/18 09/29/18 # Bowel Movements 0 Narrative: A&O x 3 CN II-XII intact Motor 5/5 UE and LE tests to full strength, but subjectively he feels weaker in the left leg Intact sensation throughout right and left leg, though subjectively feels numb left leg Able to ambulate to bathroom, but unable to sit for more than a few minutes or stand for more than a few minutes Unable to really sit up to properly wear the brace, which he hasn't really been wearing Results - Laboratory Findings CBC and BMP: 10/01/18 07:52 09/30/18 06:04 Abnormal lab findings: Abnormal Labs 09/23/18 09/23/18 09/23/18 13:50 13:50 13:50 WBC 21.5 H RBC 4.30 L Hgb 11.1 L Hct 33.2 L MCV 77.2 L MCH 25.9 L Plt Count MPV 6.4 L Neut % (Auto) 86.0 H Lymph % (Auto) 6.3 L [place] % (Auto) Neut # (Auto) 18.5 H [place] # (Auto) 1.3 H Eos # (Auto) ESR APTT 31.3 H Sodium 132 L Chloride 97 L BUN 20 H Estimated GFR 80 L POC Glucose Random Glucose 128 H Calcium AST Alkaline Phosphatase 169 H Albumin 2.7 L Urine Clarity Urine Glucose (UA) Urine Bacteria Urine Mucus Urine Opiates Screen 09/23/18 09/23/18 09/23/18 17:02 20:33 23:45 WBC RBC Hgb Hct MCV MCH Plt Count MPV Neut % (Auto) Lymph % (Auto) [place] % (Auto) Neut # (Auto) [place] # (Auto) Eos # (Auto) ESR APTT Sodium Chloride BUN Estimated GFR POC Glucose 241 H 184 H Random Glucose Calcium AST Alkaline Phosphatase Albumin Urine Clarity Urine Glucose (UA) Urine Bacteria Urine Mucus Urine Opiates Screen Pos H 09/23/18 09/24/18 09/24/18 23:45 08:03 08:03 WBC 13.5 H RBC 3.72 L Hgb 9.4 L Hct 29.0 L MCV 77.9 L MCH 25.2 L Plt Count MPV 6.4 L Neut % (Auto) 71.9 H Lymph % (Auto) [place] % (Auto) 8.4 H Neut # (Auto) 9.7 H [place] # (Auto) 1.1 H Eos # (Auto) 0.5 H ESR APTT Sodium Chloride BUN 26 H Estimated GFR POC Glucose Random Glucose 48 L* Calcium AST 13 L Alkaline Phosphatase 135 H Albumin 2.0 L D Urine Clarity Hazy H Urine Glucose (UA) 150 H Urine Bacteria Rare H Urine Mucus Few H Urine Opiates Screen 09/24/18 09/24/18 09/24/18 08:04 10:33 11:11 WBC RBC Hgb Hct MCV MCH Plt Count MPV Neut % (Auto) Lymph % (Auto) [place] % (Auto) Neut # (Auto) [place] # (Auto) Eos # (Auto) ESR APTT Sodium Chloride BUN Estimated GFR POC Glucose 56 L 126 H 137 H Random Glucose Calcium AST Alkaline Phosphatase Albumin Urine Clarity Urine Glucose (UA) Urine Bacteria Urine Mucus Urine Opiates Screen 09/24/18 09/24/18 09/25/18 16:14 20:54 07:10 WBC 14.7 H RBC 3.67 L Hgb 9.5 L Hct 28.3 L MCV 77.2 L MCH 25.8 L Plt Count MPV 6.6 L Neut % (Auto) 77.6 H Lymph % (Auto) [place] % (Auto) Neut # (Auto) 11.4 H [place] # (Auto) 1.1 H Eos # (Auto) ESR APTT Sodium Chloride BUN Estimated GFR POC Glucose 141 H 125 H Random Glucose Calcium AST Alkaline Phosphatase Albumin Urine Clarity Urine Glucose (UA) Urine Bacteria Urine Mucus Urine Opiates Screen 09/25/18 09/25/18 09/25/18 07:10 07:36 12:01 WBC RBC Hgb Hct MCV MCH Plt Count MPV Neut % (Auto) Lymph % (Auto) [place] % (Auto) Neut # (Auto) [place] # (Auto) Eos # (Auto) ESR APTT Sodium 132 L Chloride 96 L D BUN 23 H Estimated GFR POC Glucose 173 H 181 H Random Glucose 157 H D Calcium AST Alkaline Phosphatase Albumin Urine Clarity Urine Glucose (UA) Urine Bacteria Urine Mucus Urine Opiates Screen 09/25/18 09/25/18 09/26/18 17:57 21:42 05:20 WBC 17.0 H RBC 3.95 L Hgb 9.9 L Hct 30.6 L MCV 77.4 L MCH 25.0 L Plt Count 485 H MPV 6.2 L Neut % (Auto) 76.5 H Lymph % (Auto) [place] % (Auto) Neut # (Auto) 13.0 H [place] # (Auto) 1.2 H Eos # (Auto) ESR 73 H APTT Sodium Chloride BUN Estimated GFR POC Glucose 186 H 227 H Random Glucose Calcium AST Alkaline Phosphatase Albumin Urine Clarity Urine Glucose (UA) Urine Bacteria Urine Mucus Urine Opiates Screen 09/26/18 09/26/18 09/27/18 05:20 21:58 06:50 WBC 11.2 H RBC 3.63 L Hgb 9.3 L Hct 28.4 L MCV 78.2 L MCH 25.7 L Plt Count MPV 6.1 L Neut % (Auto) 75.8 H Lymph % (Auto) [place] % (Auto) Neut # (Auto) 8.5 H [place] # (Auto) Eos # (Auto) ESR APTT Sodium 135 L Chloride BUN 22 H Estimated GFR POC Glucose 189 H Random Glucose 37 L* D Calcium AST Alkaline Phosphatase Albumin Urine Clarity Urine Glucose (UA) Urine Bacteria Urine Mucus Urine Opiates Screen 09/27/18 09/27/18 09/27/18 07:58 09:52 09:52 WBC 13.4 H RBC 3.71 L Hgb 9.5 L Hct 29.5 L MCV 79.6 L MCH 25.7 L Plt Count 483 H MPV 6.3 L Neut % (Auto) Lymph % (Auto) [place] % (Auto) Neut # (Auto) [place] # (Auto) Eos # (Auto) ESR APTT Sodium 132 L Chloride BUN 20 H Estimated GFR POC Glucose 59 L Random Glucose 108 H Calcium 8.3 L AST Alkaline Phosphatase Albumin Urine Clarity Urine Glucose (UA) Urine Bacteria Urine Mucus Urine Opiates Screen 09/27/18 09/28/18 09/28/18 16:16 03:32 04:39 WBC RBC Hgb Hct MCV MCH Plt Count MPV Neut % (Auto) Lymph % (Auto) [place] % (Auto) Neut # (Auto) [place] # (Auto) Eos # (Auto) ESR APTT Sodium Chloride BUN Estimated GFR POC Glucose 41 L* 56 L 127 H Random Glucose Calcium AST Alkaline Phosphatase Albumin Urine Clarity Urine Glucose (UA) Urine Bacteria Urine Mucus Urine Opiates Screen 09/28/18 09/28/18 09/28/18 08:50 12:10 17:16 WBC 12.1 H RBC 3.65 L Hgb 9.4 L Hct 28.7 L MCV 78.7 L MCH 25.9 L Plt Count 477 H MPV 6.6 L Neut % (Auto) 78.9 H Lymph % (Auto) [place] % (Auto) 8.2 H Neut # (Auto) 9.5 H [place] # (Auto) 1.0 H Eos # (Auto) ESR APTT Sodium Chloride BUN Estimated GFR POC Glucose 232 H 340 H Random Glucose Calcium AST Alkaline Phosphatase Albumin Urine Clarity Urine Glucose (UA) Urine Bacteria Urine Mucus Urine Opiates Screen 09/28/18 09/29/18 09/29/18 21:35 07:39 12:17 WBC RBC Hgb Hct MCV MCH Plt Count MPV Neut % (Auto) Lymph % (Auto) [place] % (Auto) Neut # (Auto) [place] # (Auto) Eos # (Auto) ESR APTT Sodium Chloride BUN Estimated GFR POC Glucose 274 H 135 H 225 H Random Glucose Calcium AST Alkaline Phosphatase Albumin Urine Clarity Urine Glucose (UA) Urine Bacteria Urine Mucus Urine Opiates Screen 09/29/18 09/29/18 09/30/18 17:19 22:15 06:04 WBC RBC 3.33 L Hgb 8.5 L Hct 26.0 L MCV 78.2 L MCH 25.6 L Plt Count 458 H MPV 6.1 L Neut % (Auto) Lymph % (Auto) [place] % (Auto) Neut # (Auto) [place] # (Auto) Eos # (Auto) ESR APTT Sodium Chloride BUN Estimated GFR POC Glucose 148 H 128 H Random Glucose Calcium AST Alkaline Phosphatase Albumin Urine Clarity Urine Glucose (UA) Urine Bacteria Urine Mucus Urine Opiates Screen 09/30/18 09/30/18 09/30/18 06:04 10:48 15:52 WBC RBC Hgb Hct MCV MCH Plt Count MPV Neut % (Auto) Lymph % (Auto) [place] % (Auto) Neut # (Auto) [place] # (Auto) Eos # (Auto) ESR APTT Sodium Chloride BUN 19 H Estimated GFR POC Glucose 191 H 193 H Random Glucose Calcium AST Alkaline Phosphatase Albumin Urine Clarity Urine Glucose (UA) Urine Bacteria Urine Mucus Urine Opiates Screen 09/30/18 09/30/18 10/01/18 15:54 21:18 05:00 WBC RBC Hgb Hct MCV MCH Plt Count MPV Neut % (Auto) Lymph % (Auto) [place] % (Auto) Neut # (Auto) [place] # (Auto) Eos # (Auto) ESR Greater than 140 H APTT Sodium Chloride BUN Estimated GFR POC Glucose 336 H Random Glucose Calcium AST Alkaline Phosphatase Albumin Urine Clarity Urine Glucose (UA) Urine Bacteria Urine Mucus Few H Urine Opiates Screen 10/01/18 10/01/18 10/01/18 07:52 08:22 11:19 WBC 11.3 H RBC 3.19 L Hgb 8.3 L Hct 24.8 L MCV 77.7 L MCH 25.9 L Plt Count MPV 6.2 L Neut % (Auto) Lymph % (Auto) [place] % (Auto) 10.5 H Neut # (Auto) 7.9 H [place] # (Auto) 1.2 H Eos # (Auto) ESR APTT Sodium Chloride BUN Estimated GFR POC Glucose 222 H 303 H Random Glucose Calcium AST Alkaline Phosphatase Albumin Urine Clarity Urine Glucose (UA) Urine Bacteria Urine Mucus Urine Opiates Screen Assessment and Plan - Plan MRI: 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 Plan: Given the persistent symptoms, it is reasonable to stabilize his spine with instrumentation from L2-S1 and simultaneously do a laminectomy at L4/5 to get cultures. Patient understands the risks of surgery including paralysis and sepsis, and wishes to proceed. I discussed with ID and the medicine team. There is risk of instrumentation failure down the line due to persistent infection and his history of susceptibility to infections. However, conservative measures do not look like they are working with IV abx and bracing does not seem to be helping. We will proceed tomorrow with surgery, monitoring, instrumentation, concentric C.
--- NOTE | 2018-10-01 15:55 | XR ---
EXAM DATE: 10/01/2018 3:51 PM EST AGE/SEX: 58 years / Male INDICATIONS: Pre-op for lumbar fusion. L2-S1. CLINICAL DATA: This is the patient's subsequent encounter. Patient reports that signs and symptoms h ave been present for 1 week and indicates a pain score of 10/10. MEDICAL/SURGICAL HISTORY: . Hypertension. Diabetes mellitus type II. . Toe amputation. COMPARISON: [facility] – [place], [place] LUMBAR SPINE W & W/O CONTRAST, 09/25/2018. . FINDINGS: No appreciable compression deformities, spondylolisthesis, or spondylolysis is seen. Signi ficant degenerative disc disease is seen at L4-5, L5 S1to a lesser degree the other levels. Chronic a therosclerotic calcifications are seen without any definite aneurysmal dilatations for technique. The re is extensive amount of stool throughout the colon. Mild scoliosis convexity towards right. CONCLUSION: Chronic changes of the patient's spine and extensive stool throughout the colon. Electronically signed by: Gigi Hadley MD 10/01/2018 3:53 PM EST
--- NOTE | 2018-10-01 16:56 | CT ---
EXAM DATE: 10/01/2018 4:39 PM EST AGE/SEX: 58 years / Male INDICATIONS: Patient with lower back pain discitis osteomyelitis at the L4-5 level with epidural absc ess seen on recent MRI. CLINICAL DATA: This is the patient's initial encounter. Patient reports that signs and symptoms have been present for 1 day and indicates a pain score of 3/10. MEDICAL/SURGICAL HISTORY: Diabetes. Gastroesophageal reflux disease. Hypertension. Afib. None. RADIATION DOSE: 41.23 CTDI (mGy) COMPARISON: [facility] – [place]UMBAR SPINE W & W/O CONTRAST, 09/25/2018. . TECHNIQUE: Contiguous axial images were acquired with a multirow detector CT scanner after intraveno us administration of 80 ml Omnipaque 350 (iohexol) nonionic water-soluble contrast as a single exam dose. Multiplanar reconstructions in the sagittal and coronal plane were also performed. Using autom ated exposure control and adjustment of the mA and/or kV according to patient size, radiation dose wa s kept as low as reasonably achievable to obtain optimal diagnostic quality images. DICOM format [facility] data is available electronically for review and comparison. FINDINGS: Vertebrae: Destructive changes are again noted involving the inferior endplate of L4 and superior en dplate of L5 with bony resorption and sclerosis. Portions of the endplates are absent. The other vert ebral bodies are intact. Mild to moderate scoliosis again noted. Discs: Degenerative disc changes present at the L1 to, L2-3 and L5-S1 levels with disc space narrowi ng and hypertrophic changes. Alignment: Mild anterior spondylolisthesis of L4 on L5 approximately 5 mm. T12-L1: The thecal sac has a normal diameter. No evidence of disc bulge or protrusion. The neural foramina are patent bilaterally. L1-L2: There is a mild disc bulge with mild flattening of the anterior thecal sac and no focal protr usion. The neural foramina are patent. L2-L3: There is a moderate disc osteophyte complex with flattening of the anterior thecal sac and na rrowing of the left neural foramina. The right is patent. There are degenerative changes involving th e facet joints with [id number] central canal stenosis. L3-L4: There is a mild to moderate disc bulge flattening the anterior thecal sac and mild narrowing of neural foramina. There are degenerative changes involving the facet joints. L4-L5: Distractive changes and sclerosis are again noted involving the endplates at the L4-5 level. There is abnormal soft tissue noted in the anterior epidural space with flattening of the anterior th ecal sac and moderate central canal stenosis. There is abnormal soft tissue density and both neural f oramina regions cannot well delineated. There are degenerative change involving the facet joints. L5-S1: Moderate disc osteophyte complex with no mass effect on the thecal sac or traversing S1 nerve roots. There is narrowing of the neural foramina bilaterally. CONCLUSION: 1. Destructive changes again noted involving the endplates at the L4-5 level consistent with the kno wn discitis/osteomyelitis. There is abnormal soft tissue density the anterior epidural space consiste nt with the known epidural abscess. This does not appear significantly changed from the MRI examinati on. There is moderate central canal stenosis at this level. 2. Mild to moderate central canal stenosis also noted at the L2-3 level secondary to disc osteophyte complexes and degenerative change involving the facets. 3. Stable mild anterior spondylolisthesis of L4 on L5. Electronically signed by: Jose Maria MD 10/01/2018 4:55 PM EST
[2018-10-01] MEDS: dilTIAZem CD 240 MG Capsule PO SCH (17:20)
[2018-10-02] MEDS: DEXTROSE 5% IV.SIG SCH ×8 (03:39→23:43)
[2018-10-02] MEDS: CEFOXITIN IV.SIG SCH ×8 (03:39→23:43)
[2018-10-02] MEDS: WATER IV.SIG SCH ×8 (03:39→23:43)
[2018-10-02] MEDS: Senna/Docusate Sodium 8.6/50 MG Tablet PO SCH ×2 (09:02→21:58)
[2018-10-02] MEDS: Insulin Detemir Inj 1,000 UNIT/10 ML Vial SQ SCH (09:03)
[2018-10-02] MEDS: Gabapentin 300 MG Capsule PO SCH ×3 (09:03→18:09)
[2018-10-02] MEDS: Furosemide 20 MG Tablet PO SCH ×2 (09:04→21:57)
[2018-10-02] MEDS: Ramipril 2.5 MG Capsule PO SCH (09:04)
[2018-10-02] MEDS: Insulin NovoLOG Aspart Correctional Sugar Inj SQ SCH ×4 (09:04→21:58)
[2018-10-02] MEDS: Sodium Chloride 0.9% 2 ML Flush BID IV.FLUSH SCH ×2 (09:05→21:58)
[2018-10-02] MEDS ORDERED: Thrombin Topical Soln 5,000 UNIT Vial TOPICAL ONE (09:29)
[2018-10-02] MEDS ORDERED: Gelatin Size 100 Topical Foam ONE (09:29)
[2018-10-02] MEDS ORDERED: Lidocaine 1%/Epinephrine 1:100,000 Inj 50 ML Vial ONE (09:30)
[2018-10-02] MEDS ORDERED: Dexmedetomidine Inj 200 MCG/2 ML Vial ONE (09:58)
[2018-10-02] MEDS ORDERED: Bupivacaine/Epinephrine PF Inj 0.5% 30 ML Vial ONE (10:13)
[2018-10-02] MEDS ORDERED: Lidocaine 1% Inj 50 ML Vial ONE (10:13)
--- NOTE | 2018-10-02 11:43 | P.PNIM ---
Subjective Interval history: Follow-up PICC line site phlebitis/thrombosis, osteomyelitis long-term antibiotic use, hypertension, hyperlipidemia, GERD, A. fib, DM and L4-5 discitis. Patient seen, laying on vomiting with some blood nurse in the room talking for OR today. Patient stated still had lower back pain. N.p.o. after midnight. Denies any headache or dizziness, denies any chest pain or shortness of breath, denies any abdominal pain, nausea, vomiting, diarrhea or constipation. Denies any fever or chills. Physical Exam Vital signs: Vital Signs 10/01/18 12:00 10/01/18 16:00 10/01/18 19:15 Temperature 98.6 F 99.6 F 98.2 F Pulse Rate 84 97 H 79 Respiratory Rate 18 16 16 Blood Pressure 111/60 128/68 123/63 Pulse Oximetry 100 99 97 10/01/18 20:00 10/02/18 00:00 10/02/18 04:00 Temperature 97.3 F L 97.3 F L 98.9 F Pulse Rate 91 H 84 85 Respiratory Rate 20 20 20 Blood Pressure 126/65 129/65 139/74 Pulse Oximetry 98 98 97 Intake & Output 10/01/18 10/02/18 10/02/18 18:59 06:59 18:59 Intake Total 100 / 100 100 / 100 Output Total 1200 / 1200 Balance 100 / 100 -1100 / -1100 Weight 94 kg Intake: IV 100 / 100 100 / 100 Mefoxin Inj 2 GM In D5W Inj 50 100 / 100 100 / 100 ML @ 200 mls/hr IV.SIG Q6H [facility] Rx#:[id number] Output: Urine 1200 / 1200 Other: Date of Last Bowel Movement 09/29/18 Narrative: GENERAL: Well-developed, well-nourished, adult male in no apparent distress SKIN: Warm and dry. Right upper arm with redness and slight edema patient stated prior PICC line site. With tenderness to touch right radial pulse palpable left hand middle finger dressed dry and intact. Multiple prickly red rash in the back. Sacral excoriation HEAD: Atraumatic. Normocephalic. EYES: Pupils equal and round. No scleral icterus. No injection or drainage. ENT: No nasal bleeding or discharge. Mucous membranes pink and moist. NECK: Trachea midline. No JVD. CARDIOVASCULAR: Regular rate and rhythm. RESPIRATORY: No accessory muscle use. Clear to auscultation. Breath sounds equal bilaterally. GASTROINTESTINAL: Abdomen obese soft, non-tender, nondistended. Hepatic and splenic margins not palpable. MUSCULOSKELETAL: Extremities without clubbing, cyanosis, or edema. Right foot deformity with missing 3rd toe. left hand and middle finger surgical incision with stitches and dressing dry and intact, hand incision no redness no drainage NEUROLOGICAL: Awake and alert. No obvious cranial nerve deficits. Motor grossly within normal limits. Generalized weakness moving all 4 extremities normal speech. With some limited movement on the lower back PSYCHIATRIC: Irritable mood and affect; insight and judgment poor. Results - Labs CBC & Chem 7: 10/01/18 07:52 09/30/18 06:04 Laboratory Results - last 24 hr 10/01/18 10/01/18 10/01/18 17:04 19:40 21:29 POC Glucose 285 H 254 H C-Reactive Protein 6.10 H MTS Gel Crossmatch 10/02/18 10/02/18 07:27 10:55 POC Glucose 217 H C-Reactive Protein MTS Gel Crossmatch See Detail Microbiology 09/30/18 15:45 Blood - Peripheral Aerobic Blood Culture - Preliminary No growth in 2 days 09/30/18 15:45 Blood - Peripheral Anaerobic Blood Culture - Preliminary No growth in 2 days 09/30/18 15:54 Blood - Peripheral Aerobic Blood Culture - Preliminary No growth in 2 days 09/30/18 15:54 Blood - Peripheral Anaerobic Blood Culture - Preliminary No growth in 2 days - Imaging Impressions Lumbar Spine CT 10/01/18 00:00 CONCLUSION: 1. Destructive changes again noted involving the endplates at the L4-5 level consistent with the known discitis/osteomyelitis. There is abnormal soft tissue density the anterior epidural space consistent with the known epidural abscess. This does not appear significantly changed from the MRI examination. There is moderate central canal stenosis at this level. 2. Mild to moderate central canal stenosis also noted at the L2-3 level secondary to disc osteophyte complexes and degenerative change involving the facets. 3. Stable mild anterior spondylolisthesis of L4 on L5. Lumbar Spine X-Ray 10/01/18 00:00 CONCLUSION: Chronic changes of the patient's spine and extensive stool throughout the colon. Assessment and Plan - Assessment (1) Osteomyelitis Code(s): M86.9 - Osteomyelitis, unspecified Status: Acute (2) Diabetes Code(s): E11.9 - Type 2 diabetes mellitus without complications Status: Chronic (3) Strain of lumbar region Code(s): S39.012A - Strain of muscle, fascia and tendon of lower back, initial encounter Status: Acute (4) Lumbar radiculopathy Code(s): M54.16 - Radiculopathy, lumbar region Status: Acute (5) Suppurative tenosynovitis of flexor tendon of left hand Code(s): M65.142 - Other infective (teno)synovitis, left hand Status: Chronic (6) Abscess of hand, left Code(s): L02.512 - Cutaneous abscess of left hand Status: Acute (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 fib, and DM, with recent hospitalization for lumbar spine discitis currently on outpatient IV abx via PICC for OM, presented with complaint of clogged PICC line. Lumbar Discitis/Osteomyelitis/leukocytosis -MRI from 08/30/2018 showed epidural abscess causing regional stenosis at L4-L5 with extension beyond vertebral body -Neurosurgery recommended conservative management with IV antibiotics, sx only for bladder or extremity symptoms -Complete 8 weeks of PO Biaxin started on 08/27, IV Tygacil and Cefoxitin cont. until 10/04 per ID -ID consult appreciated recommendation -Monitor CBC and BMP - Reviewed previous record with neurosurgeon 09/13/18: recommended LSO brace to help with mechanical back pain/ Monitor intermodal dispatcher following resolution of infection for consideration of instrumentation (lumbar fusion) to resolve mechanical instability contributing to mechanical back pain -Neurosurgeon reconsulted per ID recommendation discussed with Dr. Ignacio -Neurosurgical consultation appreciate recommendation : stabilize his spine with instrumentation from L2-S1 and simultaneously do a laminectomy at L4/5 to get cultures. Plan for surgery tomorrow, n.p.o. after midnight. Discussed with Dr. King -Surgery on hold due to the dose of Eliquis, Eliquis on hold, yesterday rescheduled for Sunday -Type and cross for possible blood transfusion post procedure Supportive tenosynovitis of flexor tendon of left hand -s/p Exploration, wash, repair of wound dehiscence, left palm/ring finger on -s/p ABX as above Chronic Pain -History of chronic pain with consistent Rx for oxycodone HCL 30 mg 3 times daily; most recent being filled 08/17/18 for #100 -We will control pain while hospitalized based on outpatient regimen; no discharge with pain medications as he needs to be followed by pain management -started on gabapentin -monitor response Nonfunctioning PICC -PICC removed; new consult to IR placed -Nonoccluding thrombus; supportive care -Continue scheduled IV antibiotic -PICC line placement on hold per ID recommendation. Per discussion with infectious disease patient wanted to have treatment done in [place]. -Patient refusing the idea of a home health care nurse to administer his IV medication, stated it will be difficult for them to come to his house, however he stated that his house is nice however is unable to get around his kitchen, with conflicting statements Atrial fibrillation/hypertension -heart rate and blood pressure controlled -Continue Eliquis for anticoagulation -Continue diltiazem, ramipril and furosemide -Monitor heart rate and blood pressure Diabetes mellitus type 2 Blood sugar labile, patient's diet uncontrolled Monitor blood sugars before meals and at bedtime -Cover with insulin sliding scale -Continue Levemir -Diabetic diet, add bedtime snack -FBS low early am, decrease Levemir dose again today, was decreased dose yesterday too,and provide bedtime snack, patient stated he has been eating few meals a day and at night while at home, however his diet is controlled while in the hospital. Patient stated he did not have bedtime snack last night Psychosis/ Anxiety Possible Delusions/Schizoprenia -Consulted Psychiatric team, appreciate recommendation: start medication for anxiety such as gabapentin 300 mg p.o. 3 times daily or Vistaril 50 mg p.o. every 6 hours as needed. -Started patient on gabapentin will benefit both on psychosis and control of pain -Monitor response, monitor BMP DVT prophylaxis: hold Eliquis Discharge planning: Will need outpatient IV antibiotic Code Status: full code Discussed Condition With: patient and nurse Dr. Groves/Neurosurgeon Discharge Planning: Plan discharge with IV antibiotic with PIV and [facility] nurse to administer. Carie stated he have money to pay a nurse. director field services for [facility] (1) Osteomyelitis Qualifiers: Osteomyelitis type: unspecified type Osteomyelitis location: unspecified site Qualified Code(s): M86.9 - Osteomyelitis, unspecified (3) Strain of lumbar region Qualifiers: Encounter type: initial encounter Qualified Code(s): S39.012A - Strain of muscle, fascia and tendon of lower back, initial encounter (8) Malfunction of peripheral inserted central catheter Qualifiers: Encounter type: initial encounter Qualified Code(s): T82.598A - Other mechanical complication of other cardiac and vascular devices and implants, initial encounter
--- NOTE | 2018-10-02 11:53 | P.PNNS ---
Subjective Interval history: Patient seen in preop this morning, exam stable. Physical Exam Vital signs: Vital Signs 10/01/18 12:00 10/01/18 16:00 10/01/18 19:15 Temperature 98.6 F 99.6 F 98.2 F Pulse Rate 84 97 H 79 Respiratory Rate 18 16 16 Blood Pressure 111/60 128/68 123/63 Pulse Oximetry 100 99 97 10/01/18 20:00 10/02/18 00:00 10/02/18 04:00 Temperature 97.3 F L 97.3 F L 98.9 F Pulse Rate 91 H 84 85 Respiratory Rate 20 20 20 Blood Pressure 126/65 129/65 139/74 Pulse Oximetry 98 98 97 Intake & Output 10/01/18 10/02/18 10/02/18 18:59 06:59 18:59 Intake Total 100 / 100 100 / 100 Output Total 1200 / 1200 Balance 100 / 100 -1100 / -1100 Weight 94 kg Intake: IV 100 / 100 100 / 100 Mefoxin Inj 2 GM In D5W Inj 50 100 / 100 100 / 100 ML @ 200 mls/hr IV.SIG Q6H [facility] Rx#:[id number] Output: Urine 1200 / 1200 Other: Date of Last Bowel Movement 09/29/18 Narrative: A&O x 3 CN II - XII intact Motor 5/5 UE and RLE LLE 4/5 in ip down to foot Assessment and Plan - Plan MRI: 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 Plan: 10/01/18: Given the persistent symptoms, it is reasonable to stabilize his spine with instrumentation from L2-S1 and simultaneously do a laminectomy at L4/5 to get cultures. Patient understands the risks of surgery including paralysis and sepsis, and wishes to proceed. I discussed with ID and the medicine team. There is risk of instrumentation failure down the line due to persistent infection and his history of susceptibility to infections. However, conservative measures do not look like they are working with IV abx and bracing does not seem to be helping. We will proceed tomorrow with surgery, monitoring , instrumentation, concentric C. 10/02/18: Surgery today postpone as patient got one dose of eliquis on 10/01 in the morning. Recommendations to wait 48 hours given heavy risk of bleeding and already low preop H/H of 8.3/24. Type and Cross to be performed for full antibody panel, plan Sunday case at present. Discussed with patient, anesthesiologist and primary team Adela CRAIG.
[2018-10-02] MEDS: Baclofen 10 MG Tablet PO SCH ×3 (13:21→21:58)
[2018-10-02] MEDS: Meloxicam 7.5 MG Tablet PO SCH (18:09)
[2018-10-02] MEDS: dilTIAZem CD 240 MG Capsule PO SCH (18:10)
[2018-10-03] MEDS: Insulin Detemir Inj 1,000 UNIT/10 ML Vial SQ SCH ×3 (02:47→21:23)
[2018-10-03] MEDS: CEFOXITIN IV.SIG SCH ×8 (03:21→21:08)
[2018-10-03] MEDS: DEXTROSE 5% IV.SIG SCH ×8 (03:21→21:08)
[2018-10-03] MEDS: WATER IV.SIG SCH ×8 (03:21→21:08)
[2018-10-03] MEDS: Baclofen 10 MG Tablet PO SCH ×3 (05:36→21:08)
[2018-10-03] MEDS: Meloxicam 7.5 MG Tablet PO SCH ×3 (05:37→18:05)
[2018-10-03 06:38] LABS: Baso # (Auto) 0.1 th/mm3 (0.0-0.2); Baso % (Auto) 1.4 % (0.0-2.0); Eos # (Auto) 0.3 th/mm3 (0.0-0.4); Eos % (Auto) 3.2 % (0.0-4.0); Hematocrit 26.4 % (39.0-51.0); Hemoglobin 9.1 gm/dL (13.0-17.0); Lymph # (Auto) 1.1 th/mm3 (1.0-4.8); Lymph % (Auto) 10.6 % (9.0-44.0); Mean Corpuscular HGB Conc 34.7 % (32.0-36.0); Mean Corpuscular Hemoglobin 26.9 pg (27.0-34.0); Mean Corpuscular Volume 77.7 fL (80.0-100.0); Mean Platelet Volume 6.2 fL (7.0-11.0); Mono # (Auto) 0.7 th/mm3 (0.0-0.9); Mono % (Auto) 7.4 % (0.0-8.0); Neut # (Auto) 7.7 th/mm3 (1.8-7.7); Neut % (Auto) 77.4 % (16.0-70.0); Platelet Count 472 th/mm3 (150-450); Red Blood Count 3.39 mil/mm3 (4.50-5.90); Red Cell Distribution Width 16.8 % (11.6-17.2)
[2018-10-03 07:25] LABS: Anion Gap 8 meq/L (5-15); Blood Urea Nitrogen 28 mg/dL (7-18); Calcium 8.8 mg/dL (8.5-10.1); Carbon Dioxide 25.1 meq/L (21.0-32.0); Chloride 102 meq/L (98-107); Glomerular Filtration Rate Greater Than 89 mL/min (>89); Glucose,Random 275 mg/dL (74-106); Potassium 4.4 meq/L (3.5-5.1); Sodium 135 meq/L (136-145)
[2018-10-03] MEDS: Senna/Docusate Sodium 8.6/50 MG Tablet PO SCH ×2 (10:08→21:08)
[2018-10-03] MEDS: Insulin NovoLOG Aspart Correctional Sugar Inj SQ SCH ×4 (10:14→21:22)
[2018-10-03] MEDS: Sodium Chloride 0.9% 2 ML Flush BID IV.FLUSH SCH ×2 (10:15→21:09)
[2018-10-03] MEDS: Furosemide 20 MG Tablet PO SCH ×2 (10:23→21:08)
[2018-10-03] MEDS: Gabapentin 300 MG Capsule PO SCH ×3 (10:23→18:05)
[2018-10-03] MEDS: Ramipril 2.5 MG Capsule PO SCH (10:24)
--- NOTE | 2018-10-03 12:24 | P.PNIM ---
Subjective Interval history: Chief Complaint: PICC not working History of Present Illness: Patient is a 58-year-old male who has had multiple hospitalizations for infection. Past medical history includes hypertension, hyperlipidemia, GERD , A. fib, DM and L4-5 discitis. He was most recently discharged on 09/17/18 with a right upper arm PICC for outpatient IV antibiotic infusion. He returns to the ED today with a complaint of the PICC line not working and swelling and pain in that arm. He denies any fever or chills. No chest pain or shortness of breath. No nausea vomiting or diarrhea. He is a somewhat poor historian and is primarily focused on discussing his foot and back pain which are chronic issues. 10-30 Follow-up PICC line site phlebitis, osteomyelitis long-term antibiotic use, hypertension, hyperlipidemia, GERD, A. fib, DM and L4-5 discitis. Patient seen and examined laying in bed, family at bedside, complaint of right upper arm pain stated he has been on a long-term antibiotic use. And had a history of osteomyelitis started in his foot infection now had a problem with hurt his head however feeling better. Patient denies any headache or dizziness, denies any pain, chest pain or shortness of breath, denies any abdominal pain, nausea, vomiting, diarrhea or constipation. Patient denies any fever or chills. Patient stated just want to get better. Patient mentioned he has been doing his IV antibiotic at home. 1031 Follow-up PICC line site phlebitis, osteomyelitis long-term antibiotic use , hypertension, hyperlipidemia, GERD, A. fib, DM and L4-5 discitis. Patient seen and examined, complains of food and diet, stated he loose weight since his admission here. Patient states that requested for Ensure breakfast lunch and dinner. Patient complains of rash in his back, and the sacral wound. Patient complained of discomfort in his sacrum discussed to be off his bottom and be out of bed more often. Patient denies any chest pain pain or shortness of breath, denies any headache or dizziness, denies any abdominal pain, nausea, vomiting, diarrhea or constipation. Patient denies any fever or chills. Next weight reviewed on admission 86.1 kg current weight 89.9 11-2 Follow-up PICC line site phlebitis/thrombosis, osteomyelitis long-term antibiotic use, hypertension, hyperlipidemia, GERD, A. fib, DM and L4-5 discitis. Patient seen and examined laying in bed, discussed low blood sugar this morning. Patient states that he has been eating 12 meals in a day however while he is here his diet is controlled. Stated he has nothing to eat at midnight last night. He usually eat sandwiches before bedtime. Patient denies any pain or shortness of breath, denies any headache or dizziness, denies any sweating, polyuria polydipsia. Patient denies any abdominal pain, nausea, vomiting, diarrhea or constipation. Patient denies any fever or chills. Patient stated ready to go home as soon as the PICC line space. Patient discussed again multiple PICC line that was placed and was dislodged before, but stated it happened accidentally. He mentioned that he can get a nurse to come to the house and do not care how much it cost. Discussed will set up a home health care nurse to come to his house. Patient agreed. 11-3 Follow-up PICC line site phlebitis/thrombosis, osteomyelitis long-term antibiotic use, hypertension, hyperlipidemia, GERD, A. fib, DM and L4-5 discitis. Patient seen and examined laying in bed, was found turned on the right side reaching for things on the table without any difficulty. However when talking stated cannot move out of bed, complains of pain in the lower back , stated once pain medication long-acting. Patient stated just one pain medication when he goes home. Patient also discussed how his IV was pulled at home, when discussed with home health care nurse stated he does not need home health care nurse and he can do things for himself. Patient stated he administer his own IV antibiotic to get up from the fridge and he will get up in his IV. Patient stated home health care will be able to move around in her house, his kitchen is too small however stated he has had a nice house. Patient stated the first IV was caught from moving around in his kitchen counter. Discussed not safe to go home without home health care and IV antibiotics should be administered by the home health nurse for safety. Patient going back and forth on going home with pain medication, and IV antibiotic. When confirmed about his discussion of going back to [place] to see his doctor for antibiotic treatment stated he wants to stay here and have the IV antibiotic treatment here. Patient stated he just went to have pain medication when he goes home. Patient denies any headache or dizziness, denies any chest pain or shortness of breath, denies any abdominal pain, nausea, vomiting, diarrhea, or constipation. Patient denies any fever or chills. 11-4 Follow-up PICC line site phlebitis/thrombosis, osteomyelitis long-term antibiotic use, hypertension, hyperlipidemia, GERD, A. fib, DM and L4-5 discitis. Patient seen and examined laying in bed, family at bedside. Patient looks comfortable at this time, stated pain better however worse when getting up and moving around. Patient stated unable to walk or sit up because of his back infection. Patient denies any headache or dizziness, denies any chest pain or shortness of breath, denies abdominal pain, nausea, vomiting, diarrhea or constipation. Patient denies any fever or chills. Patient discuss concern about his diet, stated can do something about my diet. Does not want to be on a diabetic diet. Discussed with patient patient's blood sugar is up and down and needs to be controlled and monitored. Patient discussed and stated "let me manage my blood sugar and I can maintain it to 110 all the time." Patient also complaining of pain medication stated wants to go home with pain medication because he cannot sit up due to lower back pain. And needed her pain his pain medication. Patient stated "I will pay anyone for the pain medication". 11-5 Follow-up PICC line site phlebitis/thrombosis, osteomyelitis long-term antibiotic use, hypertension, hyperlipidemia, GERD, A. fib, DM and L4-5 discitis. Patient seen and examined, laying in bed, radiology chest did an x- ray. Patient complained of lower back pain stated the Roxanol does not work, wanted to have a long acting pain medication. Patient stated unable to walk, and unable to sit in a chair, due to his problem in his back. Patient denies any headache or dizziness, denies any chest pain or shortness of breath, denies any coughing, denies any fever or chills. Patient denies any abdominal pain, nausea, vomiting, diarrhea or constipation. Reported with elevated temperature of 100.5 however patient denies any feeling of fever or chills. 11-6 Follow-up PICC line site phlebitis/thrombosis, osteomyelitis long-term antibiotic use, hypertension, hyperlipidemia, GERD, A. fib, DM and L4-5 discitis. Patient seen and examined laying in bed complaining of low back pain stated just want pain meds medication to go home with. Patient denies any headache or dizziness, denies any abdominal pain, nausea, vomiting, diarrhea or constipation. Patient stated had been going to the bathroom for bowel movement however complaint of lower back hurting with movement, with standing up and with activity. Patient denies any fever or chills. 11-7 Follow-up PICC line site phlebitis/thrombosis, osteomyelitis long-term antibiotic use, hypertension, hyperlipidemia, GERD, A. fib, DM and L4-5 discitis. Patient seen, laying on vomiting with some blood nurse in the room talking for OR today. Patient stated still had lower back pain. N.p.o. after midnight. Denies any headache or dizziness, denies any chest pain or shortness of breath, denies any abdominal pain, nausea, vomiting, diarrhea or constipation. Denies any fever or chills. 118 TO HAVE SURGERY TOMORROW WITH NEUROSURGERY REGARDING L2 TO S1 WITH DR BARNES OF NEUROSURGERY WANTS TO SEE HAND SURGERY AGAIN DW RN AND PT AND CM Physical Exam Vital signs: Vital Signs 10/02/18 16:00 10/02/18 20:00 10/03/18 00:00 Temperature 97.8 F 98.7 F 98.2 F Pulse Rate 92 H 93 H 83 Respiratory Rate 17 19 19 Blood Pressure 110/68 114/57 L 114/61 Pulse Oximetry 99 99 100 10/03/18 08:00 10/03/18 11:43 Temperature 98.2 F 97.8 F Pulse Rate 89 84 Respiratory Rate 17 17 Blood Pressure 124/74 127/70 Pulse Oximetry 99 99 Intake & Output 10/02/18 10/03/18 10/03/18 18:59 06:59 18:59 Intake Total 100 / 100 1600 / 1600 50 / 50 Output Total 1999 / 1999 1200 / 1200 Balance -1900 / -1900 400 / 400 50 / 50 Weight 94.5 kg Intake: IV 100 / 100 100 / 100 50 / 50 Mefoxin Inj 2 GM In D5W Inj 50 100 / 100 100 / 100 50 / 50 ML @ 200 mls/hr IV.SIG Q6H [facility] Rx#:[id number] Oral 1500 / 1500 Output: Urine 1999 1200 / 1200 Other: Date of Last Bowel Movement 10/02/18 10/02/18 # Bowel Movements 1 Narrative: GENERAL: Well-developed, well-nourished, adult male in no apparent distress SKIN: Warm and dry. Right upper arm with redness and slight edema patient stated prior PICC line site. With tenderness to touch right radial pulse palpable left hand middle finger dressed dry and intact. Multiple prickly red rash in the back. Sacral excoriation HEAD: Atraumatic. Normocephalic. EYES: Pupils equal and round. No scleral icterus. No injection or drainage. ENT: No nasal bleeding or discharge. Mucous membranes pink and moist. NECK: Trachea midline. No JVD. CARDIOVASCULAR: Regular rate and rhythm. RESPIRATORY: No accessory muscle use. Clear to auscultation. Breath sounds equal bilaterally. GASTROINTESTINAL: Abdomen obese soft, non-tender, nondistended. Hepatic and splenic margins not palpable. MUSCULOSKELETAL: Extremities without clubbing, cyanosis, or edema. Right foot deformity with missing 3rd toe. left hand and middle finger surgical incision with stitches and dressing dry and intact, hand incision no redness no drainage NEUROLOGICAL: Awake and alert. No obvious cranial nerve deficits. Motor grossly within normal limits. Generalized weakness moving all 4 extremities normal speech. With some limited movement on the lower back PSYCHIATRIC: Irritable mood and affect; insight and judgment poor. Results - Labs CBC & Chem 7: 10/03/18 06:15 10/03/18 06:15 Laboratory Results - last 24 hr 10/02/18 10/02/18 10/02/18 13:24 16:51 21:18 WBC RBC Hgb Hct MCV MCH MCHC RDW Plt Count MPV Neut % (Auto) Lymph % (Auto) [place] % (Auto) Eos % (Auto) Baso % (Auto) Neut # (Auto) Lymph # (Auto) [place] # (Auto) Eos # (Auto) Baso # (Auto) WBC Differential Differential Comment Sodium Potassium Chloride Carbon Dioxide Anion Gap BUN Creatinine Estimated GFR POC Glucose 147 H 290 H 287 H Random Glucose Calcium 10/03/18 10/03/18 10/03/18 06:15 06:15 08:48 WBC 10.0 RBC 3.39 L Hgb 9.1 L Hct 26.4 L MCV 77.7 L MCH 26.9 L MCHC 34.7 RDW 16.8 Plt Count 472 H MPV 6.2 L Neut % (Auto) 77.4 H Lymph % (Auto) 10.6 [place] % (Auto) 7.4 Eos % (Auto) 3.2 Baso % (Auto) 1.4 Neut # (Auto) 7.7 Lymph # (Auto) 1.1 [place] # (Auto) 0.7 Eos # (Auto) 0.3 Baso # (Auto) 0.1 WBC Differential . Differential Comment Auto diff final Sodium 135 L Potassium 4.4 Chloride 102 Carbon Dioxide 25.1 Anion Gap 8 BUN 28 H Creatinine 0.78 Estimated GFR Greater than 89 POC Glucose 303 H Random Glucose 275 H Calcium 8.8 Microbiology 09/30/18 15:45 Blood - Peripheral Aerobic Blood Culture - Preliminary No growth in 3 days 09/30/18 15:45 Blood - Peripheral Anaerobic Blood Culture - Preliminary No growth in 3 days 09/30/18 15:54 Blood - Peripheral Aerobic Blood Culture - Preliminary No growth in 3 days 09/30/18 15:54 Blood - Peripheral Anaerobic Blood Culture - Preliminary No growth in 3 days Assessment and Plan - Assessment (1) Osteomyelitis Code(s): M86.9 - Osteomyelitis, unspecified Status: Acute (2) Diabetes Code(s): E11.9 - Type 2 diabetes mellitus without complications Status: Chronic (3) Strain of lumbar region Code(s): S39.012A - Strain of muscle, fascia and tendon of lower back, initial encounter Status: Acute (4) Lumbar radiculopathy Code(s): M54.16 - Radiculopathy, lumbar region Status: Acute (5) Suppurative tenosynovitis of flexor tendon of left hand Code(s): M65.142 - Other infective (teno)synovitis, left hand Status: Chronic (6) Abscess of hand, left Code(s): L02.512 - Cutaneous abscess of left hand Status: Acute (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 fib, and DM, with recent hospitalization for lumbar spine discitis currently on outpatient IV abx via PICC for OM, presented with complaint of clogged PICC line. Lumbar Discitis/Osteomyelitis/leukocytosis -MRI from 08/30/2018 showed epidural abscess causing regional stenosis at L4-L5 with extension beyond vertebral body -Neurosurgery recommended conservative management with IV antibiotics, sx only for bladder or extremity symptoms -Complete 8 weeks of PO Biaxin started on 08/27, IV Tygacil and Cefoxitin cont. until 10/04 per ID -ID consult appreciated recommendation -Monitor CBC and BMP - Reviewed previous record with neurosurgeon 09/13/18: recommended LSO brace to help with mechanical back pain/ Monitor jail following resolution of infection for consideration of instrumentation (lumbar fusion) to resolve mechanical instability contributing to mechanical back pain -Neurosurgeon reconsulted per ID recommendation discussed with Dr. Ignacio -Neurosurgical consultation appreciate recommendation : stabilize his spine with instrumentation from L2-S1 and simultaneously do a laminectomy at L4/5 to get cultures. Plan for surgery tomorrow, n.p.o. after midnight. Discussed with Dr. King -Surgery on hold due to the dose of Eliquis, Eliquis on hold, yesterday rescheduled for Sunday -Type and cross for possible blood transfusion post procedure TO HAVE SURGERY ON L2 TO S1 TODAY Supportive tenosynovitis of flexor tendon of left hand -s/p Exploration, wash, repair of wound dehiscence, left palm/ring finger on -s/p ABX as above Chronic Pain -History of chronic pain with consistent Rx for oxycodone HCL 30 mg 3 times daily; most recent being filled 08/17/18 for #100 -We will control pain while hospitalized based on outpatient regimen; needs to be followed by pain management -started on gabapentin -monitor response Nonfunctioning PICC -PICC removed; new consult to IR placed -Nonoccluding thrombus; supportive care -Continue scheduled IV antibiotic -PICC line placement on hold per ID recommendation. Per discussion with infectious disease patient wanted to have treatment done in [place]. -Patient refusing the idea of a home health care nurse to administer his IV medication, stated it will be difficult for them to come to his house, however he stated that his house is nice however is unable to get around his kitchen, with conflicting statements Atrial fibrillation/hypertension -heart rate and blood pressure controlled -Continue Eliquis for anticoagulation -Continue diltiazem, ramipril and furosemide -Monitor heart rate and blood pressure Diabetes mellitus type 2 Blood sugar labile, patient's diet uncontrolled Monitor blood sugars before meals and at bedtime -Cover with insulin sliding scale -Continue Levemir -Diabetic diet, add bedtime snack -FBS low early am, decrease Levemir dose again today, was decreased dose yesterday too,and provide bedtime snack, patient stated he has been eating few meals a day and at night while at home, however his diet is controlled while in the hospital. Patient stated he did not have bedtime snack last night Psychosis/ Anxiety Possible Delusions/Schizoprenia -Consulted Psychiatric team, appreciate recommendation: start medication for anxiety such as gabapentin 300 mg p.o. 3 times daily or Vistaril 50 mg p.o. every 6 hours as needed. -Started patient on gabapentin will benefit both on psychosis and control of pain -Monitor response, monitor BMP DVT prophylaxis: hold Eliquis Discharge planning: Will need outpatient IV antibiotic Code Status: FULL CODE Discussed Condition With: RN AND PT AND CM Discharge Planning: ONCE CLEARED BY ALL (1) Osteomyelitis Qualifiers: Osteomyelitis type: unspecified type Osteomyelitis location: unspecified site Qualified Code(s): M86.9 - Osteomyelitis, unspecified (3) Strain of lumbar region Qualifiers: Encounter type: initial encounter Qualified Code(s): S39.012A - Strain of muscle, fascia and tendon of lower back, initial encounter (8) Malfunction of peripheral inserted central catheter Qualifiers: Encounter type: initial encounter Qualified Code(s): T82.598A - Other mechanical complication of other cardiac and vascular devices and implants, initial encounter
--- NOTE | 2018-10-03 15:23 | P.PN ---
Subjective Interval history: complains of left wrist pain complaint with dressing to the left hand Physical Exam Vital signs: Vital Signs 10/02/18 16:00 10/02/18 20:00 10/03/18 00:00 Temperature 97.8 F 98.7 F 98.2 F Pulse Rate 92 H 93 H 83 Respiratory Rate 17 19 19 Blood Pressure 110/68 114/57 L 114/61 Pulse Oximetry 99 99 100 10/03/18 08:00 10/03/18 11:43 Temperature 98.2 F 97.8 F Pulse Rate 89 84 Respiratory Rate 17 17 Blood Pressure 124/74 127/70 Pulse Oximetry 99 99 Intake & Output 10/02/18 10/03/18 10/03/18 18:59 06:59 18:59 Intake Total 100 / 100 1600 / 1600 50 / 50 Output Total 1999 / 1999 1200 / 1200 Balance -1900 / -1900 400 / 400 50 / 50 Weight 94.5 kg Intake: IV 100 / 100 100 / 100 50 / 50 Mefoxin Inj 2 GM In D5W Inj 50 100 / 100 100 / 100 50 / 50 ML @ 200 mls/hr IV.SIG Q[facility]H [facility] Rx#:[id number] Oral 1500 / 1500 Output: Urine 1999 1200 / 1200 Other: Date of Last Bowel Movement 10/02/18 10/02/18 # Bowel Movements 1 Narrative: exam left hand: dressing in place slight wound dehiscence noted with exposed tendon for about 0.5cm no drainage flexion deformity of the ring finger noted swelling of the left wrist noted tenderness over the wrist joint more so on the ulnar aspect range of the motion of the wrist is limited and painful Results - Labs CBC & Chem 7: 10/03/18 06:15 10/03/18 06:15 Laboratory Results - last 24 hr 10/02/18 10/02/18 10/03/18 16:51 21:18 06:15 WBC 10.0 RBC 3.39 L Hgb 9.1 L Hct 26.4 L MCV 77.7 L MCH 26.9 L MCHC 34.7 RDW 16.8 Plt Count 472 H MPV 6.2 L Neut % (Auto) 77.4 H Lymph % (Auto) 10.6 [place] % (Auto) 7.4 Eos % (Auto) 3.2 Baso % (Auto) 1.4 Neut # (Auto) 7.7 Lymph # (Auto) 1.1 [place] # (Auto) 0.7 Eos # (Auto) 0.3 Baso # (Auto) 0.1 WBC Differential . Differential Comment Auto diff final Sodium Potassium Chloride Carbon Dioxide Anion Gap BUN Creatinine Estimated GFR POC Glucose 290 H 287 H Random Glucose Calcium 10/03/18 10/03/18 10/03/18 06:15 08:48 12:22 WBC RBC Hgb Hct MCV MCH MCHC RDW Plt Count MPV Neut % (Auto) Lymph % (Auto) [place] % (Auto) Eos % (Auto) Baso % (Auto) Neut # (Auto) Lymph # (Auto) [place] # (Auto) Eos # (Auto) Baso # (Auto) WBC Differential Differential Comment Sodium 135 L Potassium 4.4 Chloride 102 Carbon Dioxide 25.1 Anion Gap 8 BUN 28 H Creatinine 0.78 Estimated GFR Greater than 89 POC Glucose 303 H 207 H Random Glucose 275 H Calcium 8.8 Microbiology 09/30/18 15:45 Blood - Peripheral Aerobic Blood Culture - Preliminary No growth in 3 days 09/30/18 15:45 Blood - Peripheral Anaerobic Blood Culture - Preliminary No growth in 3 days 09/30/18 15:54 Blood - Peripheral Aerobic Blood Culture - Preliminary No growth in 3 days 09/30/18 15:54 Blood - Peripheral Anaerobic Blood Culture - Preliminary No growth in 3 days Assessment and Plan - Assessment (1) Suppurative tenosynovitis of flexor tendon of left hand Code(s): M65.142 - Other infective (teno)synovitis, left hand Status: Chronic - Plan 58 year old male s/p closure of wound dehiscence left hand/ring finger finger with left wrist pain Plan: surrounding skin is cleaned with alcohol wipes mastisol and sterri stirps applied over the region dry dressing applied patient is scheduled for back surgery tomorrow will obtain x-rays of the left wrist hand surgery will follow.
--- NOTE | 2018-10-03 15:28 | P.PNNS ---
Subjective Interval history: pt reports no changes overnight, surgery planned tomorrow with Dr. Groves Physical Exam Vital signs: Vital Signs 10/02/18 16:00 10/02/18 20:00 10/03/18 00:00 Temperature 97.8 F 98.7 F 98.2 F Pulse Rate 92 H 93 H 83 Respiratory Rate 17 19 19 Blood Pressure 110/68 114/57 L 114/61 Pulse Oximetry 99 99 100 10/03/18 08:00 10/03/18 11:43 Temperature 98.2 F 97.8 F Pulse Rate 89 84 Respiratory Rate 17 17 Blood Pressure 124/74 127/70 Pulse Oximetry 99 99 Intake & Output 10/02/18 10/03/18 10/03/18 18:59 06:59 18:59 Intake Total 100 / 100 1600 / 1600 50 / 50 Output Total 1999 / 1999 1200 / 1200 Balance -1900 / -1900 400 / 400 50 / 50 Weight 94.5 kg Intake: IV 100 / 100 100 / 100 50 / 50 Mefoxin Inj 2 GM In D5W Inj 50 100 / 100 100 / 100 50 / 50 ML @ 200 mls/hr IV.SIG Q6H [facility] Rx#:[id number] Oral 1500 / 1500 Output: Urine 1999 1200 / 1200 Other: Date of Last Bowel Movement 10/02/18 10/02/18 # Bowel Movements 1 Narrative: A&O x 3 CN II - XII intact Motor 5/5 UE and RLE LLE 4/5 in ip down to foot Assessment and Plan - Plan MRI: 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 Plan: 10/01/18: Given the persistent symptoms, it is reasonable to stabilize his spine with instrumentation from L2-S1 and simultaneously do a laminectomy at L4/5 to get cultures. Patient understands the risks of surgery including paralysis and sepsis, and wishes to proceed. I discussed with ID and the medicine team. There is risk of instrumentation failure down the line due to persistent infection and his history of susceptibility to infections. However, conservative measures do not look like they are working with IV abx and bracing does not seem to be helping. We will proceed tomorrow with surgery, monitoring , instrumentation, concentric C. 11/7/18: Surgery today postpone as patient got one dose of eliquis on 10/01 in the morning. Recommendations to wait 48 hours given heavy risk of bleeding and already low preop H/H of 8.3/24. Type and Cross to be performed for full antibody panel, plan Sunday noon case at present. Discussed with patient, anesthesiologist and primary team Adela CRAIG. 10/03/18: surgery with Dr. Groves planned for tomorrow. NPO tonight at midnight.
--- NOTE | 2018-10-03 16:43 | XR ---
EXAM DATE: 10/03/2018 4:35 PM EST AGE/SEX: 58 years / Male INDICATIONS: Left wrist pain, denies injury CLINICAL DATA: This is the patient's initial encounter. Patient reports that signs and symptoms have been present for 4 - 6 days and indicates a pain score of 6/10. MEDICAL/SURGICAL HISTORY: . Hypertension. Diabetes mellitus type II. None. COMPARISON: [facility] [place] COMPLETE LEFT MIN 3V, 08/27/2018. . FINDINGS: Wrist. Small osteophytes of the thumb carpometacarpal joint. Bone alignment within normal limits. No evidence fracture. There is a focal cyst or erosion at the lateral aspect of the lunate measuring 7 m m in diameter. Small osteophytes of the scaphoid trapezium trapezoid joint. Small osteophytes of the distal radioulnar joint. Mild distal radioulnar joint narrowing. Diffuse arterial calcification. CONCLUSION: Osteoarthritic findings of the wrist. Mild distal radioulnar joint narrowing. Cyst or erosion at the lateral aspect of the lunate. Electronically signed by: Daniel Posadas MD 10/03/2018 4:42 PM EST
[2018-10-03] MEDS: dilTIAZem CD 240 MG Capsule PO SCH (18:04)
[2018-10-04] MEDS: WATER IV.SIG SCH ×8 (05:00→22:19)
[2018-10-04] MEDS: CEFOXITIN IV.SIG SCH ×8 (05:00→22:19)
[2018-10-04] MEDS: DEXTROSE 5% IV.SIG SCH ×8 (05:00→22:19)
[2018-10-04] MEDS: Meloxicam 7.5 MG Tablet PO SCH (05:03)
[2018-10-04] MEDS: Baclofen 10 MG Tablet PO SCH ×3 (05:03→21:58)
[2018-10-04 07:42] LABS: Baso # (Auto) 0.1 th/mm3 (0.0-0.2); Baso % (Auto) 0.6 % (0.0-2.0); Eos # (Auto) 0.4 th/mm3 (0.0-0.4); Eos % (Auto) 4.1 % (0.0-4.0); Hematocrit 26.9 % (39.0-51.0); Hemoglobin 9.2 gm/dL (13.0-17.0); Lymph # (Auto) 1.3 th/mm3 (1.0-4.8); Lymph % (Auto) 14.4 % (9.0-44.0); Mean Corpuscular HGB Conc 34.1 % (32.0-36.0); Mean Corpuscular Hemoglobin 26.2 pg (27.0-34.0); Mean Corpuscular Volume 76.9 fL (80.0-100.0); Mean Platelet Volume 6.3 fL (7.0-11.0); Mono # (Auto) 0.8 th/mm3 (0.0-0.9); Mono % (Auto) 8.6 % (0.0-8.0); Neut # (Auto) 6.8 th/mm3 (1.8-7.7); Neut % (Auto) 72.3 % (16.0-70.0); Platelet Count 493 th/mm3 (150-450); Red Cell Distribution Width 17.2 % (11.6-17.2); White Blood Count 9.4 th/mm3 (4.0-11.0)
[2018-10-04 07:59] LABS: Alanine Aminotransferase 20 U/L (12-78); Albumin 2.2 g/dL (3.4-5.0); Anion Gap 11 meq/L (5-15); Aspartate Aminotransferase 17 U/L (15-37); Blood Urea Nitrogen 23 mg/dL (7-18); Calcium 8.8 mg/dL (8.5-10.1); Carbon Dioxide 25.4 meq/L (21.0-32.0); Chloride 101 meq/L (98-107); Glomerular Filtration Rate Greater Than 89 mL/min (>89); Glucose,Random 170 mg/dL (74-106); Magnesium 1.9 mg/dL (1.5-2.5); Phosphorus 3.1 mg/dL (2.5-4.9); Potassium 4.1 meq/L (3.5-5.1); Sodium 137 meq/L (136-145)
[2018-10-04 08:22] LABS: Alkaline Phosphatase 170 U/L (45-117); Total Protein 7.4 g/dL (6.4-8.2)
[2018-10-04] MEDS: Furosemide 20 MG Tablet PO SCH ×2 (09:33→21:58)
[2018-10-04] MEDS: Gabapentin 300 MG Capsule PO SCH ×2 (09:33→13:56)
[2018-10-04] MEDS: Ramipril 2.5 MG Capsule PO SCH (09:33)
[2018-10-04] MEDS: Senna/Docusate Sodium 8.6/50 MG Tablet PO SCH ×2 (09:33→21:59)
[2018-10-04] MEDS: Sodium Chloride 0.9% 2 ML Flush BID IV.FLUSH SCH ×2 (09:34→21:58)
[2018-10-04] MEDS: Insulin NovoLOG Aspart Correctional Sugar Inj SQ SCH ×4 (09:41→22:22)
[2018-10-04] MEDS: Insulin Detemir Inj 1,000 UNIT/10 ML Vial SQ SCH ×2 (09:41→21:59)
--- NOTE | 2018-10-04 09:54 | P.PNNS ---
Subjective Interval history: Planning for surgery today. stable exam. Physical Exam Vital signs: Vital Signs 10/03/18 11:43 10/03/18 17:21 10/03/18 20:00 Temperature 97.8 F 97.3 F L 97.6 F Pulse Rate 84 85 91 H Respiratory Rate 17 18 18 Blood Pressure 127/70 122/84 127/63 Pulse Oximetry 99 96 99 10/04/18 00:00 10/04/18 08:00 Temperature 97.8 F 98.6 F Pulse Rate 89 86 Respiratory Rate 18 17 Blood Pressure 122/64 114/67 Pulse Oximetry 99 98 Intake & Output 10/03/18 10/04/18 10/04/18 18:59 06:59 18:59 Intake Total 50 / 50 150 / 150 Output Total 3000 / 3000 Balance 50 / 50 -2850 / -2850 Weight 94.5 kg Intake: IV 50 / 50 150 / 150 Mefoxin Inj 2 GM In D5W Inj 50 50 / 50 150 / 150 ML @ 200 mls/hr IV.SIG Q6H ROBBIE Rx#:[id number] Output: Urine 3000 / 3000 Other: Date of Last Bowel Movement 10/03/18 Narrative: A&O x 3 CN II - XII intact Motor 5/5 UE and RLE LLE 4/5 in ip down to foot Assessment and Plan - Plan MRI: 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 Plan: 10/01/18: Given the persistent symptoms, it is reasonable to stabilize his spine with instrumentation from L2-S1 and simultaneously do a laminectomy at L4/5 to get cultures. Patient understands the risks of surgery including paralysis and sepsis, and wishes to proceed. I discussed with ID and the medicine team. There is risk of instrumentation failure down the line due to persistent infection and his history of susceptibility to infections. However, conservative measures do not look like they are working with IV abx and bracing does not seem to be helping. We will proceed tomorrow with surgery, monitoring , instrumentation, concentric C. 10/02/18: Surgery today postpone as patient got one dose of eliquis on 10/01 in the morning. Recommendations to wait 48 hours given heavy risk of bleeding and already low preop H/H of 8.3/24. Type and Cross to be performed for full antibody panel, plan Sunday noon case at present. Discussed with patient, anesthesiologist and primary team Adela CRAIG. 10/03/18: surgery with Dr. Groves planned for tomorrow. NPO tonight at midnight. 10/04/18: surgery tentatively 1:30 today
[2018-10-04] MEDS ORDERED: Thrombin Topical Soln 5,000 UNIT Vial TOPICAL ONE ×2 (10:49→10:50)
[2018-10-04] MEDS ORDERED: Gelatin Size 100 Topical Foam ONE (10:49)
[2018-10-04] MEDS ORDERED: Bupivacaine/Epinephrine 0.5% Inj 50 ML Vial ONE (10:50)
[2018-10-04] MEDS ORDERED: Lidocaine 1% Inj 50 ML Vial ONE (10:50)
[2018-10-04] MEDS ORDERED: Metoprolol Tartrate 25 MG Tablet PO SCH (11:27)
[2018-10-04] MEDS ORDERED: Chlorhexidine Gluconate 2% 1 Pack (2 Cloths) TOPICAL SCH (11:27)
[2018-10-04] MEDS ORDERED: Propofol Inj 500 MG/50 ML Vial ONE ×2 (11:30→14:36)
--- NOTE | 2018-10-04 11:32 | P.PNIM ---
Subjective Interval history: Chief Complaint: PICC not working History of Present Illness: Patient is a 58-year-old male who has had multiple hospitalizations for infection. Past medical history includes hypertension, hyperlipidemia, GERD , A. fib, DM and L4-5 discitis. He was most recently discharged on 09/17/18 with a right upper arm PICC for outpatient IV antibiotic infusion. He returns to the ED today with a complaint of the PICC line not working and swelling and pain in that arm. He denies any fever or chills. No chest pain or shortness of breath. No nausea vomiting or diarrhea. He is a somewhat poor historian and is primarily focused on discussing his foot and back pain which are chronic issues. 10-30 Follow-up PICC line site phlebitis, osteomyelitis long-term antibiotic use, hypertension, hyperlipidemia, GERD, A. fib, DM and L4-5 discitis. Patient seen and examined laying in bed, family at bedside, complaint of right upper arm pain stated he has been on a long-term antibiotic use. And had a history of osteomyelitis started in his foot infection now had a problem with hurt his head however feeling better. Patient denies any headache or dizziness, denies any pain, chest pain or shortness of breath, denies any abdominal pain, nausea, vomiting, diarrhea or constipation. Patient denies any fever or chills. Patient stated just want to get better. Patient mentioned he has been doing his IV antibiotic at home. 1031 Follow-up PICC line site phlebitis, osteomyelitis long-term antibiotic use , hypertension, hyperlipidemia, GERD, A. fib, DM and L4-5 discitis. Patient seen and examined, complains of food and diet, stated he loose weight since his admission here. Patient states that requested for Ensure breakfast lunch and dinner. Patient complains of rash in his back, and the sacral wound. Patient complained of discomfort in his sacrum discussed to be off his bottom and be out of bed more often. Patient denies any chest pain pain or shortness of breath, denies any headache or dizziness, denies any abdominal pain, nausea, vomiting, diarrhea or constipation. Patient denies any fever or chills. Next weight reviewed on admission 86.1 kg current weight 89.9 11-2 Follow-up PICC line site phlebitis/thrombosis, osteomyelitis long-term antibiotic use, hypertension, hyperlipidemia, GERD, A. fib, DM and L4-5 discitis. Patient seen and examined laying in bed, discussed low blood sugar this morning. Patient states that he has been eating 12 meals in a day however while he is here his diet is controlled. Stated he has nothing to eat at midnight last night. He usually eat sandwiches before bedtime. Patient denies any pain or shortness of breath, denies any headache or dizziness, denies any sweating, polyuria polydipsia. Patient denies any abdominal pain, nausea, vomiting, diarrhea or constipation. Patient denies any fever or chills. Patient stated ready to go home as soon as the PICC line space. Patient discussed again multiple PICC line that was placed and was dislodged before, but stated it happened accidentally. He mentioned that he can get a nurse to come to the house and do not care how much it cost. Discussed will set up a home health care nurse to come to his house. Patient agreed. 11-3 Follow-up PICC line site phlebitis/thrombosis, osteomyelitis long-term antibiotic use, hypertension, hyperlipidemia, GERD, A. fib, DM and L4-5 discitis. Patient seen and examined laying in bed, was found turned on the right side reaching for things on the table without any difficulty. However when talking stated cannot move out of bed, complains of pain in the lower back , stated once pain medication long-acting. Patient stated just one pain medication when he goes home. Patient also discussed how his IV was pulled at home, when discussed with home health care nurse stated he does not need home health care nurse and he can do things for himself. Patient stated he administer his own IV antibiotic to get up from the fridge and he will get up in his IV. Patient stated home health care will be able to move around in her house, his kitchen is too small however stated he has had a nice house. Patient stated the first IV was caught from moving around in his kitchen counter. Discussed not safe to go home without home health care and IV antibiotics should be administered by the home health nurse for safety. Patient going back and forth on going home with pain medication, and IV antibiotic. When confirmed about his discussion of going back to [place] to see his doctor for antibiotic treatment stated he wants to stay here and have the IV antibiotic treatment here. Patient stated he just went to have pain medication when he goes home. Patient denies any headache or dizziness, denies any chest pain or shortness of breath, denies any abdominal pain, nausea, vomiting, diarrhea, or constipation. Patient denies any fever or chills. 11-4 Follow-up PICC line site phlebitis/thrombosis, osteomyelitis long-term antibiotic use, hypertension, hyperlipidemia, GERD, A. fib, DM and L4-5 discitis. Patient seen and examined laying in bed, family at bedside. Patient looks comfortable at this time, stated pain better however worse when getting up and moving around. Patient stated unable to walk or sit up because of his back infection. Patient denies any headache or dizziness, denies any chest pain or shortness of breath, denies abdominal pain, nausea, vomiting, diarrhea or constipation. Patient denies any fever or chills. Patient discuss concern about his diet, stated can do something about my diet. Does not want to be on a diabetic diet. Discussed with patient patient's blood sugar is up and down and needs to be controlled and monitored. Patient discussed and stated "let me manage my blood sugar and I can maintain it to 110 all the time." Patient also complaining of pain medication stated wants to go home with pain medication because he cannot sit up due to lower back pain. And needed her pain his pain medication. Patient stated "I will pay anyone for the pain medication". 11-5 Follow-up PICC line site phlebitis/thrombosis, osteomyelitis long-term antibiotic use, hypertension, hyperlipidemia, GERD, A. fib, DM and L4-5 discitis. Patient seen and examined, laying in bed, radiology chest did an x- ray. Patient complained of lower back pain stated the Roxanol does not work, wanted to have a long acting pain medication. Patient stated unable to walk, and unable to sit in a chair, due to his problem in his back. Patient denies any headache or dizziness, denies any chest pain or shortness of breath, denies any coughing, denies any fever or chills. Patient denies any abdominal pain, nausea, vomiting, diarrhea or constipation. Reported with elevated temperature of 100.5 however patient denies any feeling of fever or chills. 11-6 Follow-up PICC line site phlebitis/thrombosis, osteomyelitis long-term antibiotic use, hypertension, hyperlipidemia, GERD, A. fib, DM and L4-5 discitis. Patient seen and examined laying in bed complaining of low back pain stated just want pain meds medication to go home with. Patient denies any headache or dizziness, denies any abdominal pain, nausea, vomiting, diarrhea or constipation. Patient stated had been going to the bathroom for bowel movement however complaint of lower back hurting with movement, with standing up and with activity. Patient denies any fever or chills. 11-7 Follow-up PICC line site phlebitis/thrombosis, osteomyelitis long-term antibiotic use, hypertension, hyperlipidemia, GERD, A. fib, DM and L4-5 discitis. Patient seen, laying on vomiting with some blood nurse in the room talking for OR today. Patient stated still had lower back pain. N.p.o. after midnight. Denies any headache or dizziness, denies any chest pain or shortness of breath, denies any abdominal pain, nausea, vomiting, diarrhea or constipation. Denies any fever or chills. 118 TO HAVE SURGERY TOMORROW WITH NEUROSURGERY REGARDING L2 TO S1 WITH DR BARNES OF NEUROSURGERY WANTS TO SEE HAND SURGERY AGAIN DW RN AND PT AND CM 10-04 TO GO FOR NEUROSURGERY REGARDING L2 TO S1 TODAY SEEN BY HAND SURGERY NO NEW COMPLAINTS WENDI RN AND PT AND CM NEED TO RESTART ELIQUIS WHEN OK WITH NEUROSURGERY Physical Exam Vital signs: Vital Signs 10/03/18 11:43 10/03/18 17:21 10/03/18 20:00 Temperature 97.8 F 97.3 F L 97.6 F Pulse Rate 84 85 91 H Respiratory Rate 17 18 18 Blood Pressure 127/70 122/84 127/63 Pulse Oximetry 99 96 99 10/04/18 00:00 10/04/18 08:00 10/04/18 11:15 Temperature 97.8 F 98.6 F 98.6 F Pulse Rate 89 86 86 Respiratory Rate 18 17 17 Blood Pressure 122/64 114/67 114/67 Pulse Oximetry 99 98 Intake & Output 10/03/18 10/04/18 10/04/18 18:59 06:59 18:59 Intake Total 50 / 50 150 / 150 Output Total 3000 / 3000 Balance 50 / 50 -2850 / -2850 Weight 94.5 kg Intake: IV 50 / 50 150 / 150 Mefoxin Inj 2 GM In D5W Inj 50 50 / 50 150 / 150 ML @ 200 mls/hr IV.SIG Q6H ROBBIE Rx#:[id number] Output: Urine 3000 / 3000 Other: Date of Last Bowel Movement 10/03/18 Narrative: GENERAL: Well-developed, well-nourished, adult male in no apparent distress SKIN: Warm and dry. Right upper arm with redness and slight edema patient stated prior PICC line site. With tenderness to touch right radial pulse palpable left hand middle finger dressed dry and intact. Multiple prickly red rash in the back. Sacral excoriation HEAD: Atraumatic. Normocephalic. EYES: Pupils equal and round. No scleral icterus. No injection or drainage. ENT: No nasal bleeding or discharge. Mucous membranes pink and moist. NECK: Trachea midline. No JVD. CARDIOVASCULAR: Regular rate and rhythm. RESPIRATORY: No accessory muscle use. Clear to auscultation. Breath sounds equal bilaterally. GASTROINTESTINAL: Abdomen obese soft, non-tender, nondistended. Hepatic and splenic margins not palpable. MUSCULOSKELETAL: Extremities without clubbing, cyanosis, or edema. Right foot deformity with missing 3rd toe. left hand and middle finger surgical incision with stitches and dressing dry and intact, hand incision no redness no drainage NEUROLOGICAL: Awake and alert. No obvious cranial nerve deficits. Motor grossly within normal limits. Generalized weakness moving all 4 extremities normal speech. With some limited movement on the lower back PSYCHIATRIC: Irritable mood and affect; insight and judgment poor. Results - Labs CBC & Chem 7: 10/04/18 06:34 10/04/18 06:34 Laboratory Results - last 24 hr 10/03/18 10/03/18 10/04/18 12:22 21:16 06:34 WBC 9.4 RBC 3.50 L Hgb 9.2 L Hct 26.9 L MCV 76.9 L MCH 26.2 L MCHC 34.1 RDW 17.2 Plt Count 493 H MPV 6.3 L Neut % (Auto) 72.3 H Lymph % (Auto) 14.4 Lassen % (Auto) 8.6 H Eos % (Auto) 4.1 H Baso % (Auto) 0.6 Neut # (Auto) 6.8 Lymph # (Auto) 1.3 Lassen # (Auto) 0.8 Eos # (Auto) 0.4 Baso # (Auto) 0.1 WBC Differential . Differential Comment Auto diff final Sodium Potassium Chloride Carbon Dioxide Anion Gap BUN Creatinine Estimated GFR POC Glucose 207 H 224 H Random Glucose Calcium Phosphorus Magnesium Total Bilirubin AST ALT Alkaline Phosphatase Total Protein Albumin TSH Free T4 10/04/18 10/04/18 10/04/18 06:34 06:34 07:43 WBC RBC Hgb Hct MCV MCH MCHC RDW Plt Count MPV Neut % (Auto) Lymph % (Auto) Lassen % (Auto) Eos % (Auto) Baso % (Auto) Neut # (Auto) Lymph # (Auto) Lassen # (Auto) Eos # (Auto) Baso # (Auto) WBC Differential Differential Comment Sodium 137 Potassium 4.1 Chloride 101 Carbon Dioxide 25.4 Anion Gap 11 BUN 23 H Creatinine 0.75 Estimated GFR Greater than 89 POC Glucose 208 H Random Glucose 170 H D Calcium 8.8 Phosphorus 3.1 Magnesium 1.9 Total Bilirubin 0.1 L AST 17 ALT 20 Alkaline Phosphatase 170 H Total Protein 7.4 Albumin 2.2 L TSH 1.130 Free T4 0.95 Microbiology 09/30/18 15:45 Blood - Peripheral Aerobic Blood Culture - Preliminary No growth in 4 days 09/30/18 15:45 Blood - Peripheral Anaerobic Blood Culture - Preliminary No growth in 4 days 09/30/18 15:54 Blood - Peripheral Aerobic Blood Culture - Preliminary No growth in 4 days 09/30/18 15:54 Blood - Peripheral Anaerobic Blood Culture - Preliminary No growth in 4 days - Imaging Impressions Wrist X-Ray 10/03/18 00:00 CONCLUSION: Osteoarthritic findings of the wrist. Mild distal radioulnar joint narrowing. Cyst or erosion at the lateral aspect of the lunate. Assessment and Plan - Assessment (1) Osteomyelitis Code(s): M86.9 - Osteomyelitis, unspecified Status: Acute (2) Diabetes Code(s): E11.9 - Type 2 diabetes mellitus without complications Status: Chronic (3) Strain of lumbar region Code(s): S39.012A - Strain of muscle, fascia and tendon of lower back, initial encounter Status: Acute (4) Lumbar radiculopathy Code(s): M54.16 - Radiculopathy, lumbar region Status: Acute (5) Suppurative tenosynovitis of flexor tendon of left hand Code(s): M65.142 - Other infective (teno)synovitis, left hand Status: Chronic (6) Abscess of hand, left Code(s): L02.512 - Cutaneous abscess of left hand Status: Acute (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 fib, and DM, with recent hospitalization for lumbar spine discitis currently on outpatient IV abx via PICC for OM, presented with complaint of clogged PICC line. Lumbar Discitis/Osteomyelitis/leukocytosis -MRI from 08/30/2018 showed epidural abscess causing regional stenosis at L4-L5 with extension beyond vertebral body -Neurosurgery recommended conservative management with IV antibiotics, sx only for bladder or extremity symptoms -Complete 8 weeks of PO Biaxin started on 08/27, IV Tygacil and Cefoxitin cont. until 10/04 per ID -ID consult appreciated recommendation -Monitor CBC and BMP - Reviewed previous record with neurosurgeon 09/13/18: recommended LSO brace to help with mechanical back pain/ Monitor fci following resolution of infection for consideration of instrumentation (lumbar fusion) to resolve mechanical instability contributing to mechanical back pain -Neurosurgeon reconsulted per ID recommendation discussed with Dr. Ignacio -Neurosurgical consultation appreciate recommendation : stabilize his spine with instrumentation from L2-S1 and simultaneously do a laminectomy at L4/5 to get cultures. Plan for surgery tomorrow, n.p.o. after midnight. Discussed with Dr. King -Surgery on hold due to the dose of Eliquis, Eliquis on hold, yesterday rescheduled for Sunday -Type and cross for possible blood transfusion post procedure TO HAVE SURGERY ON L2 TO S1 TODAY 10-04 Supportive tenosynovitis of flexor tendon of left hand -s/p Exploration, wash, repair of wound dehiscence, left palm/ring finger on -s/p ABX as above SEEN BY HAND SURGERY Chronic Pain -History of chronic pain with consistent Rx for oxycodone HCL 30 mg 3 times daily; most recent being filled 08/17/18 for #100 -We will control pain while hospitalized based on outpatient regimen; needs to be followed by pain management -started on gabapentin -monitor response Nonfunctioning PICC -PICC removed; new consult to IR placed -Nonoccluding thrombus; supportive care -Continue scheduled IV antibiotic -PICC line placement on hold per ID recommendation. Per discussion with infectious disease patient wanted to have treatment done in [place]. -Patient refusing the idea of a home health care nurse to administer his IV medication, stated it will be difficult for them to come to his house, however he stated that his house is nice however is unable to get around his kitchen, with conflicting statements Atrial fibrillation/hypertension -heart rate and blood pressure controlled -Continue Eliquis for anticoagulation -Continue diltiazem, ramipril and furosemide -Monitor heart rate and blood pressure ELIQUIS ON HOLD UNTIL CLEARED BY NEUROSURGERY TO RESTART Diabetes mellitus type 2 Blood sugar labile, patient's diet uncontrolled Monitor blood sugars before meals and at bedtime -Cover with insulin sliding scale -Continue Levemir -Diabetic diet, add bedtime snack -FBS low early am, decrease Levemir dose again today, was decreased dose yesterday too,and provide bedtime snack, patient stated he has been eating few meals a day and at night while at home, however his diet is controlled while in the hospital. Patient stated he did not have bedtime snack last night Psychosis/ Anxiety Possible Delusions/Schizoprenia -Consulted Psychiatric team, appreciate recommendation: start medication for anxiety such as gabapentin 300 mg p.o. 3 times daily or Vistaril 50 mg p.o. every 6 hours as needed. -Started patient on gabapentin will benefit both on psychosis and control of pain -Monitor response, monitor BMP DVT prophylaxis: hold Eliquis Discharge planning: Will need outpatient IV antibiotic Code Status: FULL CODE Discussed Condition With: RN AND PT AND CM Discharge Planning: ONCE CLEARED BY ALL (1) Osteomyelitis Qualifiers: Osteomyelitis type: unspecified type Osteomyelitis location: unspecified site Qualified Code(s): M86.9 - Osteomyelitis, unspecified (3) Strain of lumbar region Qualifiers: Encounter type: initial encounter Qualified Code(s): S39.012A - Strain of muscle, fascia and tendon of lower back, initial encounter (8) Malfunction of peripheral inserted central catheter Qualifiers: Encounter type: initial encounter Qualified Code(s): T82.598A - Other mechanical complication of other cardiac and vascular devices and implants, initial encounter
[2018-10-04] MEDS ORDERED: Sodium Chlor 0.9% Inj 500 ML IV.SIG SCH (12:00)
[2018-10-04] MEDS ORDERED: Lidocaine PF 1% Inj 5 ML Syringe OTHER ONE (12:33)
[2018-10-04] MEDS ORDERED: Normosol-R pH 7.4 Inj 1,000 ML IV.CONT ONE (12:33)
[2018-10-04] MEDS ORDERED: fentaNYL Citrate Inj 250 MCG/5 ML Ampul ONE (14:01)
[2018-10-04] MEDS ORDERED: HYDROmorphone PF Inj 2 MG/ML Vial ONE (14:01)
[2018-10-04] MEDS ORDERED: Neomycin/Polymyxin G.U. Irrigant 1 ML Ampul ONE (14:05)
[2018-10-04] MEDS ORDERED: Neomycin/Polymyxin G.U. Irrigant 1 ML Ampul TOPICAL ONE (15:53)
[2018-10-04 16:10] LABS: Hemoglobin A1c 7.7 % (4.3-6.0)
[2018-10-04] MEDS: dilTIAZem CD 240 MG Capsule PO SCH (16:56)
--- NOTE | 2018-10-04 17:30 | P.OP ---
- Preoperative Diagnosis (1) Osteomyelitis - Postoperative Diagnosis (1) Osteomyelitis Date of procedure: 10/04/18 Procedure: L2-S1 posterior spinal fusion Pedicle screws fixation L2, L3, L4 6.5x50mm and s1 7.5x45, Rods 5.6s982th, Spinewave system Use of 3D fluoroscopy Anesthesia: SHRUTI Surgeon: Rob Groves MD Estimated blood loss (mL): 200 Operation and Findings: Indications: This is a 58year old man with osteomyelitis of L4/5 who has been treated for 2 months with IV antibiotics based on negative cultures, without resolution of pain on movement and recent rise in inflammatory markers. Stabilization of spine with reculturing of L4/5 interval is indicated. Description of Procedure: Patient was brought to main OR and the procedure done under general in prone position on the concentric bed. All pressure points padded. Mid lumbar spine was prepped and draped in the usual sterile fashion. Monitoring was done of pedicle screws and SSEPs which remained stable throughout the case. After infiltration and measuring of incision using fluoroscopy, incision was taken down to L2 to S1 spinous processes. Monopolar cautery was used to complete the subperiosteal dissection out laterally to the lamina of L2 down to S1 to the facets. Pedicle screws were placed at L2, L3, L4 and S1 starting left using the awl, drill, tap method and fluoroscopy. Purulent material was cultured at left L4 pedicle and a vancomycin slurry was placed down the pedicle. L5 was skipped bilaterally. Placement of screws was tested by EMG stimulation. CT concentric was performed to verify screw placements especially at S1. These were confirmed to be in bone. L4 and L5 bone was harvested in the spinous processes and partial laminectomies for culture, but decision was made to leave them in place due to nonsignificant stenosis at these levels and need for stability. 130mm rods were bent to lordosis for both sides and secured with set screws and final torque tightened. Wound irrigated and vancomycin powder placed with a 7-flat drain, closed in layer with 0 and 2-0 Vicryl interrupted and dilshad for skin, nylon for drain. ROSMERY dressings placed. Patient returned supine and extubated with plan for ISC overnight for pain control. EBL 200cc.
[2018-10-04] MEDS ORDERED: fentaNYL Citrate Inj 100 MCG/2 ML Ampul ONE ×2 (17:38)
[2018-10-04] MEDS ORDERED: *morphine SULFATE 10 MG/ML PERIprocedure ONLY ONE ×3 (17:53→18:06)
[2018-10-04] MEDS ORDERED: HYDROmorphone PCA Inj 6 MG/30 ML PCA.VIAL PCA ONE (17:53)
[2018-10-04] MEDS ORDERED: *Meperidine Inj 25 MG/ML Vial PERIprocedural Use ONLY ONE (17:57)
[2018-10-04] MEDS ORDERED: *HYDROmorphone PF Inj 1 MG/ML Ampul PERIprocedural Use ONLY ONE ×3 (18:07→18:27)
[2018-10-04] MEDS ORDERED: Methadone Inj 10 MG/ML Vial IV.PUSH ONE (18:27)
[2018-10-04] MEDS ORDERED: Naloxone Inj 0.4 MG/ML Vial IV.PUSH PRN (18:29)
[2018-10-04] MEDS ORDERED: Ketamine Inj 50 MG/5 ML Syringe IV.PUSH ONE (18:33)
--- NOTE | 2018-10-04 18:34 | P.CONCC ---
History of Present Illness Service: Critical Care Medicine Consult date: 10/04/18 Requesting Physician: Rob Groves Reason for Consult: perioperative management of medical comorbidities Primary Care Provider: UNKNOWN Chief Complaint: back pain History of Present Illness: 58yM with L5 osteomyelitis s/p iv antibiotics now POD 0 s/p L5-S1 discectomy and fusion. in PACU, he is in significant pain. He describes the pain as sharp and burning in the middle of his back. occasionally radiates to his right leg, but mostly in his back. He takes 30mg oxycodone q4h chronically and is opiate tolerant. In the PACU, I remained with the patient and gave him 1mg versed, methadone 30mg iv, ketamine 50mg iv, with improvement in his pain scores. ROS unobtainable due to his severe pain. Review of Systems unobtainable due to mental condition PMFSH - History History Provided By: Patient, Medical Record - Medical History Medical History: Medical History (Last Reviewed 10/04/18 @ 19:49 by Kiko Mcmanus MD) Amputated toe GERD (gastroesophageal reflux disease) Hyperlipidemia Afib Back pain Diabetes Hypertension Osteomyelitis - Surgical History Surgical History: Surgical History (Last Reviewed 10/04/18 @ 19:49 by Kiko Mcmanus MD) H/O foot surgery - Family History Family History: Family History (Last Reviewed 10/04/18 @ 19:49 by Kiko Mcmanus MD) Other Coronary artery disease - Social History I have reviewed the patient's Social History: Yes - Tobacco History Second Hand Smoke Exposure: No Smoking Status: Never smoker - Alcohol History How Often Do You Have a Drink Containing Alcohol: Never - Substance Use History Substance History: No History of Abuse - Travel History Recent Travel in the [place] Within the Last 8 Weeks: No Recent Travel Out of the Country Within the Last 8 Weeks: No - Immunization History Tetanus Immunization: <5 Years Hx Influenza Vaccine This Season: No Medications and Allergies Active Medications: Active Medications Al Hydroxide/Mg Hydroxide (Milk Of Renetta Liq) 30 ml PO Q12H PRN PRN Reason: Mild Constipation Last Admin: 09/29/18 09:03 Dose: 30 ml Apixaban (Eliquis) 5 mg PO BID [facility] Last Admin: 10/01/18 21:53 Dose: Not Given Baclofen (Lioresal) 10 mg PO Q8HR [facility] Last Admin: 10/04/18 14:00 Dose: Not Given Bisacodyl (Dulcolax Supp) 10 mg RECTAL DAILY PRN PRN Reason: SEVERE CONSITIPATION Chlorhexidine Gluconate (Chlorhexidine 2% Cloth) 3 pack 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 [facility] Clarithromycin (Biaxin) 500 mg PO Q12H [facility] Last Admin: 10/04/18 05:03 Dose: 500 mg Dextrose (D50w Vial) 50 ml IV.PUSH UNSCH PRN PRN Reason: PER HYPOGLYCEMIA PROTOCOL Diltiazem HCl (Cardizem Cd 24hr) 240 mg PO Q24H [facility] Last Admin: 10/04/18 16:56 Dose: Not Given Furosemide (Lasix) 20 mg PO BID [facility] Last Admin: 10/04/18 09:33 Dose: 20 mg Gabapentin (Neurontin) 300 mg PO TID [facility] Last Admin: 10/04/18 13:56 Dose: Not Given Glucagon (Glucagon Inj) 1 mg OTHER PRN PRN PRN Reason: for Hypoglycemia Protocol Hydrocortisone Acetate (Hydrocortisone 1% Cream) 1 applicatio TOPICAL TID [facility] Last Admin: 10/04/18 13:00 Dose: Not Given Cefoxitin Sodium 2 gm/ (Dextrose) 50 mls @ 200 mls/hr IV.SIG Q6H [facility] Last Infusion: 10/04/18 11:00 Dose: Infused Lactated Ringer's (Lr 1000 Ml Inj) 1,000 mls @ 30 mls/hr IV.SIG .Q24H [facility] Stop: 10/05/18 11:29 Last Infusion: 10/04/18 17:24 Dose: Infused Sodium Chloride (Ns Inj) 500 mls @ 30 mls/hr IV.SIG .[id number] [facility] Stop: 10/05/18 04:39 Last Admin: 10/04/18 12:00 Dose: Not Given Acetaminophen (Ofirmev Inj) 1,000 mg in 100 mls @ 400 mls/hr IV.SIG Q6H [facility] Stop: 10/07/18 18:59 Insulin Aspart (Novolog Insulin Correctional Sugar Inj) 0 unit SQ ACHS [facility]; Protocol Last Admin: 10/04/18 12:00 Dose: Not Given Insulin Detemir (Levemir Inj) 30 unit SQ DAILY [facility] Last Admin: 10/04/18 09:41 Dose: Not Given Insulin Detemir (Levemir Inj) 20 unit SQ HS [facility] Last Admin: 10/03/18 21:23 Dose: 20 unit Lactulose (Lactulose Liq) 30 ml PO DAILY PRN PRN Reason: SEVERE CONSITIPATION Meloxicam (Mobic) 7.5 mg PO Q12H [facility] Last Admin: 10/04/18 05:03 Dose: 7.5 mg Methadone HCl (Dolophine Inj) 20 mg IV.PUSH ONCE ONE Stop: 10/04/18 18:28 Metoprolol Tartrate (Lopressor) 25 mg PO HEADING UP MACHINE 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 [facility] Stop: 10/04/18 23:59 Miscellaneous Information ([facility] [place] Nursing Information) 1 each OTHER UNSCH PRN PRN Reason: SEE LABEL COMMENTS Stop: 10/05/18 17:12 Ondansetron HCl (Zofran Inj) 4 mg IV.PUSH Q6H PRN PRN Reason: NAUSEA OR VOMITING Last Admin: 10/01/18 02:56 Dose: 4 mg Oxycodone HCl (Roxicodone) 30 mg PO Q4H PRN PRN Reason: PAIN 1-10 Last Admin: 10/04/18 09:33 Dose: 30 mg Pantoprazole Sodium (Protonix) 40 mg PO DAILY [facility] Last Admin: 10/04/18 09:33 Dose: 40 mg Povidone Iodine (Betadine 5% Antisepsis Kit) 1 applicatio EACH NARE HEADING UP MACHINE OPERATOR [facility] Stop: 10/04/18 23:59 Ramipril (Altace) 2.5 mg PO DAILY [facility] Last Admin: 10/04/18 09:33 Dose: 2.5 mg Senna/Docusate Sodium (Aliyah-Colace) 1 tab PO BID [facility] Last Admin: 10/04/18 09:33 Dose: 1 tab Sennosides (Senokot) 17.2 mg PO Q12H PRN PRN Reason: Moderate Constipation Sodium Chloride (Ns Flush) 2 ml IV.FLUSH BID [facility] Last Admin: 10/04/18 09:34 Dose: 2 ml Sodium Chloride (Ns Flush) 2 ml IV.FLUSH PRN PRN PRN Reason: FLUSH AFTER USING IV ACCESS Allergies Allergy/AdvReac Type Severity Reaction Status Date / Time No Known Drug Allergies Allergy none Verified 08/06/18 15:59 *MDRO Multi-Drug Resistant AdvReac Unknown MRSA Uncoded 06/16/17 16:34 Organism Home Medications Medication Instructions Recorded Confirmed Type apixaban [Eliquis] 5 mg PO BID 06/09/18 09/23/18 History diltiazem HCl 240 mg PO DAILY 06/09/18 09/23/18 History furosemide 20 mg PO BID 06/09/18 09/23/18 History insulin glargine [Lantus Solostar 50 unit SUB-Q BID 06/09/18 09/23/18 History U-100 Insulin] pantoprazole [Protonix] 40 mg PO DAILY 06/09/18 09/23/18 History ramipril 2.5 mg PO DAILY 06/09/18 09/23/18 History oxycodone 30 mg PO Q4H PRN 07/22/18 09/23/18 History Physical Exam Vital signs: Vital Signs 10/03/18 20:00 10/04/18 00:00 10/04/18 08:00 Temperature 36.4 C 36.6 C 37.0 C Pulse Rate 91 H 89 86 Respiratory Rate 18 18 17 Blood Pressure 127/63 122/64 114/67 Pulse Oximetry 99 99 98 10/04/18 11:15 Temperature 37.0 C Pulse Rate 86 Respiratory Rate 17 Blood Pressure 114/67 Pulse Oximetry Intake & Output 10/03/18 10/04/18 10/04/18 18:59 06:59 18:59 Intake Total 50 / 50 150 / 150 2050 / 2050 Output Total 3000 / 3000 1500 / 1500 Balance 50 / 50 -2850 / -2850 550 / 550 Weight 94.5 kg Intake: IV 50 / 50 150 / 150 1050 / 1050 LR 1000 mL Inj 1,000 ML @ 30 1000 / 1000 mls/hr IV.SIG .Q24H [facility] Rx#: [id number] Mefoxin Inj 2 GM In D5W Inj 50 50 / 50 150 / 150 50 / 50 ML @ 200 mls/hr IV.SIG Q6H [facility] Rx#:[id number] Anesthesia Amount 1000 / 1000 Output: Urine 3000 / 3000 Estimated Blood Loss 600 / 600 Urine Amount (Catheter) 900 / 900 Indwelling Urethral Catheter 900 / 900 Other: # Voids 1 Date of Last Bowel Movement 10/03/18 Narrative: GENERAL: Middle-age male who appears older than stated age, lying in bed, in severe distress due to back pain HEENT: Normocephalic. Atraumatic. Pupils equal, round, reactive, conjugate. Mucous membranes are moist NECK: Trachea is midline. There is no JVD. CHEST: Tachypneic but unlabored. Equal chest rise. CARDIOVASCULAR: Normal rate, regular rhythm. Sinus. ABDOMEN: Soft, nontender, nondistended. No guarding. MUSCULOSKELETAL: Pulses 2+. No peripheral edema. PIA drain exits the back with a minimal amount of serosanguineous output. Lower lumbar incision site clean dry and intact. NEUROLOGICAL: RASS +1. In distress due to his back pain. Muscular skeletal strength 5/5 in all 4 extremities. Sensation grossly intact. No focal deficits , and particularly no deficits of lower extremities. - Urinary Catheter Management Indwelling Urethral Catheter Cath placed during this visit: no Assessment and Plan - Assessment and Plan Plan: Assessment: 58-year-old male postop day 0 status post L5/S1 discectomy and fusion with severe acute on chronic postoperative pain. We will address his pain in a multimodal manner. Continue previously scheduled IV antibiotics per infectious disease. Admit ICU for close monitoring. s/p L5/S1 discectomy and fusion 10/04 - admit to ICU - frequent neuro checks - Dr. Groves following Severe acute post-operative pain superimposed on Chronic pain syndrome Opioid dependence - methadone 30mg iv x 1 10/04 - ketamine 50mg iv x 1 10/04 - gabapentin 300mg po TID - tylenol 1gm iv q6h scheduled x 3 days - mobic 7.5mg PO daily - start clonidine 0.2mg po q8h - continue oxycodone 30mg po q4h prn - increase dilaudid TURPENTINER to 0.4mg iv q6min demand - agree that he needs to be followed by chronic pain management on discharge. - does not appear to be radicular in nature. patient continues to complain of pain isolated to his back with minimal extension to his right leg. - no neuro deficits. Lumbar Discitis/Osteomyelitis/leukocytosis -ID following: Dr. Ignacio - ABX per ID Supportive tenosynovitis of flexor tendon of left hand -s/p Exploration, wash, repair of wound dehiscence, left palm/ring finger on -s/p ABX as above Atrial fibrillation/hypertension -heart rate and blood pressure controlled -hold Eliquis given nsgy. will restart when cleared by nsgy. -Continue diltiazem, ramipril and furosemide -Monitor heart rate and blood pressure Diabetes mellitus type 2 Monitor blood sugars before meals and at bedtime -Cover with insulin sliding scale -Continue Levemir -Diabetic diet, add bedtime snack SCDs Admit to ICU. Critical care medicine will continue to follow.
[2018-10-04] MEDS: HYDROmorphone PCA Inj 6 MG/30 ML PCA.VIAL PCA PRN ×2 (19:15→23:18)
[2018-10-04 19:17] LABS: Activated Partial Thrombo Time 28.9 sec (23.4-31.7); Prothrombin Time 10.6 sec (9.8-11.6)
--- NOTE | 2018-10-04 19:34 | XR ---
EXAM DATE: 10/04/2018 7:29 PM EST AGE/SEX: 58 years / Male INDICATIONS: Post op lumbar fusion. CLINICAL DATA: This is the patient's initial encounter. Patient reports that signs and symptoms have been present for 1 day and indicates a pain score of Nonresponsive. MEDICAL/SURGICAL HISTORY: . Hypertension. Diabetes mellitus type II. . Toe amputation. . COMPARISON: C, LUMBAR SPINE COMPLETE W FLX/EXT, 10/01/2018. . FINDINGS: Multiple views in the operating room show bilateral pedicle screws being placed at L3, L4 a nd S1. There is some wire-like material in the intervening soft tissues. No evidence of an acute comp lication. CONCLUSION: Bilateral pedicle screw placement demonstrated at L3, L4 and S1. Electronically signed by: Collin Wright MD 10/04/2018 7:32 PM EST
[2018-10-05] MEDS: DEXTROSE 5% IV.SIG SCH ×8 (03:39→21:24)
[2018-10-05] MEDS: CEFOXITIN IV.SIG SCH ×8 (03:39→21:24)
[2018-10-05] MEDS: WATER IV.SIG SCH ×8 (03:39→21:24)
[2018-10-05] MEDS: HYDROmorphone PCA Inj 6 MG/30 ML PCA.VIAL PCA PRN ×6 (03:40→22:20)
[2018-10-05 04:18] LABS: Baso % (Auto) 0.3 % (0.0-2.0); Hematocrit 25.5 % (39.0-51.0); Hemoglobin 8.4 gm/dL (13.0-17.0); Lymph # (Auto) 0.6 th/mm3 (1.0-4.8); Lymph % (Auto) 4.8 % (9.0-44.0); Mean Corpuscular HGB Conc 33.1 % (32.0-36.0); Mean Corpuscular Hemoglobin 25.5 pg (27.0-34.0); Mean Platelet Volume 6.4 fL (7.0-11.0); Mono # (Auto) 0.4 th/mm3 (0.0-0.9); Mono % (Auto) 3.1 % (0.0-8.0); Neut # (Auto) 11.7 th/mm3 (1.8-7.7); Neut % (Auto) 91.8 % (16.0-70.0); Platelet Count 485 th/mm3 (150-450); Red Blood Count 3.31 mil/mm3 (4.50-5.90); Red Cell Distribution Width 16.5 % (11.6-17.2); White Blood Count 12.8 th/mm3 (4.0-11.0)
[2018-10-05 04:44] LABS: Alanine Aminotransferase 19 U/L (12-78); Anion Gap 11 meq/L (5-15); Aspartate Aminotransferase 19 U/L (15-37); Blood Urea Nitrogen 22 mg/dL (7-18); Calcium 8.4 mg/dL (8.5-10.1); Carbon Dioxide 24.9 meq/L (21.0-32.0); Chloride 100 meq/L (98-107); Glomerular Filtration Rate 67 mL/min (>89); Magnesium 1.9 mg/dL (1.5-2.5); Phosphorus 3.5 mg/dL (2.5-4.9); Potassium 4.5 meq/L (3.5-5.1); Sodium 136 meq/L (136-145)
[2018-10-05 04:46] LABS: Alkaline Phosphatase 133 U/L (45-117); Total Protein 6.7 g/dL (6.4-8.2)
[2018-10-05 05:04] LABS: Glucose,Random 451 mg/dL (74-106)
[2018-10-05] MEDS: Baclofen 10 MG Tablet PO SCH ×3 (05:26→21:05)
[2018-10-05] MEDS: Meloxicam 7.5 MG Tablet PO SCH ×2 (05:26→17:55)
[2018-10-05] MEDS: Insulin NovoLOG Aspart Correctional Sugar Inj SQ SCH ×6 (06:08→21:04)
[2018-10-05] MEDS ORDERED: Influenza (Quadrivalent) Vaccine 0.5 ML Syringe IM ONE (07:00)
[2018-10-05] MEDS: Insulin Detemir Inj 1,000 UNIT/10 ML Vial SQ SCH ×2 (09:00→21:05)
[2018-10-05] MEDS: Furosemide 20 MG Tablet PO SCH ×2 (09:00→21:05)
[2018-10-05] MEDS: Sodium Chloride 0.9% 2 ML Flush BID IV.FLUSH SCH ×2 (09:01→21:05)
[2018-10-05] MEDS: Gabapentin 300 MG Capsule PO SCH ×3 (09:01→17:55)
[2018-10-05] MEDS: Ramipril 2.5 MG Capsule PO SCH (09:01)
[2018-10-05] MEDS: Senna/Docusate Sodium 8.6/50 MG Tablet PO SCH ×2 (09:01→21:05)
--- NOTE | 2018-10-05 09:19 | P.PNNS ---
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 Physical Exam Vital signs: Vital Signs 10/04/18 11:15 10/04/18 17:29 10/04/18 17:45 Temperature 98.6 F 97.5 F L Pulse Rate 86 83 83 Respiratory Rate 17 20 20 Blood Pressure 114/67 120/64 120/61 Pulse Oximetry 100 100 10/04/18 18:00 10/04/18 18:15 10/04/18 18:30 Temperature Pulse Rate 93 H 86 93 H Respiratory Rate 20 20 20 Blood Pressure 125/71 135/70 149/66 H Pulse Oximetry 100 100 100 10/04/18 18:45 10/04/18 19:00 10/04/18 19:15 Temperature Pulse Rate 95 H 98 H 94 H Respiratory Rate 20 20 20 Blood Pressure 149/66 H 130/78 119/65 Pulse Oximetry 100 100 100 10/04/18 19:30 10/04/18 19:45 10/04/18 20:02 Temperature 97.5 F L Pulse Rate 95 H 96 H Respiratory Rate 20 20 Blood Pressure 136/58 L 125/60 128/66 Pulse Oximetry 100 100 10/04/18 20:03 10/04/18 20:10 10/04/18 20:30 Temperature 97.6 F Pulse Rate 64 92 H Respiratory Rate 21 25 H Blood Pressure 125/54 L 106/66 Pulse Oximetry 100 98 100 10/04/18 21:00 10/04/18 21:27 10/04/18 22:00 Temperature Pulse Rate 94 H 97 H 100 H Respiratory Rate 35 H 26 H 29 H Blood Pressure 120/73 Pulse Oximetry 100 100 10/04/18 22:27 10/04/18 23:00 10/04/18 23:27 Temperature Pulse Rate 97 H 100 H 102 H Respiratory Rate 22 30 H 17 Blood Pressure 120/61 105/66 Pulse Oximetry 100 98 100 10/05/18 00:00 10/05/18 00:27 10/05/18 01:00 Temperature 97.8 F Pulse Rate 102 H 108 H 108 H Respiratory Rate 38 H 32 H 38 H Blood Pressure 113/58 L Pulse Oximetry 100 100 100 10/05/18 01:27 10/05/18 02:00 10/05/18 02:27 Temperature Pulse Rate 103 H 103 H 105 H Respiratory Rate 18 21 12 Blood Pressure 106/78 119/56 L Pulse Oximetry 100 100 100 10/05/18 03:00 10/05/18 03:27 10/05/18 04:00 Temperature 97.7 F Pulse Rate 102 H 107 H 103 H Respiratory Rate 30 H 32 H 34 H Blood Pressure 111/56 L Pulse Oximetry 100 100 100 Intake & Output 10/04/18 10/05/18 10/05/18 18:59 06:59 18:59 Intake Total 2050 / 2050 300 / 300 Output Total 1500 / 1500 3645 / 3645 Balance 550 / 550 -3345 / -3345 Weight 87.1 kg Intake: IV 1050 / 1050 300 / 300 Ofirmev Inj 1,000 mg In 100 ml 200 / 200 @ 400 mls/hr IV.SIG Q6HR [facility] Rx #:[id number] LR 1000 mL Inj 1,000 ML @ 30 1000 / 1000 mls/hr IV.SIG .Q24H [facility] Rx#: [id number] Mefoxin Inj 2 GM In D5W Inj 50 50 / 50 100 / 100 ML @ 200 mls/hr IV.SIG Q6H [facility] Rx#:[id number] Oral 0 / 0 Anesthesia Amount 1000 / 1000 Output: Urine 1200 / 1200 Estimated Blood Loss 600 / 600 Urine Amount (Catheter) 900 / 900 2175 / 2175 Indwelling Urethral Catheter 900 / 900 2175 / 2175 Wound Drainage 270 / 270 # 1 Lower Back PIA Drain 270 / 270 Other: # Voids 1 Date of Last Bowel Movement 10/03/18 # Bowel Movements 1 - Urinary Catheter Management Indwelling Urethral Catheter Cath placed during this visit: no Assessment and Plan - Plan MRI: 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 Plan: 10/01/18: Given the persistent symptoms, it is reasonable to stabilize his spine with instrumentation from L2-S1 and simultaneously do a laminectomy at L4/5 to get cultures. Patient understands the risks of surgery including paralysis and sepsis, and wishes to proceed. I discussed with ID and the medicine team. There is risk of instrumentation failure down the line due to persistent infection and his history of susceptibility to infections. However, conservative measures do not look like they are working with IV abx and bracing does not seem to be helping. We will proceed tomorrow with surgery, monitoring , instrumentation, concentric C. 10/02/18: Surgery today postpone as patient got one dose of eliquis on 10/01 in the morning. Recommendations to wait 48 hours given heavy risk of bleeding and already low preop H/H of 8.3/24. Type and Cross to be performed for full antibody panel, plan Sunday noon case at present. Discussed with patient, anesthesiologist and primary team Adela CRAIG. 10/03/18: surgery with Dr. Groves planned for tomorrow. NPO tonight at midnight. 10/04/18: surgery tentatively 1:30 today 10/05/18: Follow cultures from OR -- ID. Mobilize (ok to have brace off for short distances, would prefer to use brace when walking long distance). D/c shanthi. Pain control and ok for transfer back to primary service. Continue to monitor drain output. L-spine xrays today.
--- NOTE | 2018-10-05 10:56 | P.PNCC ---
Subjective Subjective Remarks/Hospital Course: 58yM with L5 osteomyelitis s/p iv antibiotics now POD 0 s/p L5-S1 discectomy and fusion. in PACU, he is in significant pain. He describes the pain as sharp and burning in the middle of his back. occasionally radiates to his right leg, but mostly in his back. He takes 30mg oxycodone q4h chronically and is opiate tolerant. In the PACU, I remained with the patient and gave him 1mg versed, methadone 30mg iv, ketamine 50mg iv, with improvement in his pain scores. ROS unobtainable due to his severe pain. 10/05: Lying in bed appears comfortable poor blood sugar control received coverage for blood sugar more than 500. Patient is noncompliant with ADA diet. Pain control seems adequate at this time Objective Vital Signs / I&O: Vital Signs 10/04/18 11:15 10/04/18 17:29 10/04/18 17:45 Temperature 98.6 F 97.5 F L Pulse Rate 86 83 83 Respiratory Rate 17 20 20 Blood Pressure 114/67 120/64 120/61 Pulse Oximetry 100 100 10/04/18 18:00 10/04/18 18:15 10/04/18 18:30 Temperature Pulse Rate 93 H 86 93 H Respiratory Rate 20 20 20 Blood Pressure 125/71 135/70 149/66 H Pulse Oximetry 100 100 100 10/04/18 18:45 10/04/18 19:00 10/04/18 19:15 Temperature Pulse Rate 95 H 98 H 94 H Respiratory Rate 20 20 20 Blood Pressure 149/66 H 130/78 119/65 Pulse Oximetry 100 100 100 10/04/18 19:30 10/04/18 19:45 10/04/18 20:02 Temperature 97.5 F L Pulse Rate 95 H 96 H Respiratory Rate 20 20 Blood Pressure 136/58 L 125/60 128/66 Pulse Oximetry 100 100 10/04/18 20:03 10/04/18 20:10 10/04/18 20:30 Temperature 97.6 F Pulse Rate 64 92 H Respiratory Rate 21 25 H Blood Pressure 125/54 L 106/66 Pulse Oximetry 100 98 100 10/04/18 21:00 10/04/18 21:27 10/04/18 22:00 Temperature Pulse Rate 94 H 97 H 100 H Respiratory Rate 35 H 26 H 29 H Blood Pressure 120/73 Pulse Oximetry 100 100 10/04/18 22:27 10/04/18 23:00 10/04/18 23:27 Temperature Pulse Rate 97 H 100 H 102 H Respiratory Rate 22 30 H 17 Blood Pressure 120/61 105/66 Pulse Oximetry 100 98 100 10/05/18 00:00 10/05/18 00:27 10/05/18 01:00 Temperature 97.8 F Pulse Rate 102 H 108 H 108 H Respiratory Rate 38 H 32 H 38 H Blood Pressure 113/58 L Pulse Oximetry 100 100 100 10/05/18 01:27 10/05/18 02:00 10/05/18 02:27 Temperature Pulse Rate 103 H 103 H 105 H Respiratory Rate 18 21 12 Blood Pressure 106/78 119/56 L Pulse Oximetry 100 100 100 10/05/18 03:00 10/05/18 03:27 10/05/18 04:00 Temperature 97.7 F Pulse Rate 102 H 107 H 103 H Respiratory Rate 30 H 32 H 34 H Blood Pressure 111/56 L Pulse Oximetry 100 100 100 10/05/18 07:00 10/05/18 07:27 10/05/18 08:00 Temperature 97.7 F Pulse Rate 94 H 89 77 Respiratory Rate 20 22 20 Blood Pressure 124/66 Pulse Oximetry 100 100 100 10/05/18 08:10 10/05/18 08:27 10/05/18 08:53 Temperature Pulse Rate 80 Respiratory Rate 18 16 20 Blood Pressure 111/58 L Pulse Oximetry 100 10/05/18 09:00 10/05/18 09:27 10/05/18 10:00 Temperature Pulse Rate 82 82 82 Respiratory Rate 22 20 25 H Blood Pressure 108/86 Pulse Oximetry 100 100 Intake & Output 10/04/18 10/05/18 10/05/18 18:59 06:59 18:59 Intake Total 2050 / 2050 300 / 300 Output Total 1500 / 1500 3645 / 3645 Balance 550 / 550 -3345 / -3345 Weight 87.1 kg Intake: IV 1050 / 1050 300 / 300 Ofirmev Inj 1,000 mg In 100 ml 200 / 200 @ 400 mls/hr IV.SIG Q6HR [facility] Rx #:[id number] LR 1000 mL Inj 1,000 ML @ 30 1000 / 1000 mls/hr IV.SIG .Q24H [facility] Rx#: [id number] Mefoxin Inj 2 GM In D5W Inj 50 50 / 50 100 / 100 ML @ 200 mls/hr IV.SIG Q6H [facility] Rx#:[id number] Oral 0 / 0 Anesthesia Amount 1000 / 1000 Output: Urine 1200 / 1200 Estimated Blood Loss 600 / 600 Urine Amount (Catheter) 900 / 900 2175 / 2175 Indwelling Urethral Catheter 900 / 900 2175 / 2175 Wound Drainage 270 / 270 # 1 Lower Back PIA Drain 270 / 270 Other: # Voids 1 Date of Last Bowel Movement 10/03/18 # Bowel Movements 1 Result Diagrams: 10/05/18 04:00 10/05/18 04:00 Objective Remarks: GENERAL: Middle-age male lying in bed, pain adequately controlled HEENT: Normocephalic. Atraumatic. Pupils equal, round, reactive, conjugate. Mucous membranes are moist NECK: Trachea is midline. There is no JVD. CHEST: Tachypneic but unlabored. Equal chest rise. CARDIOVASCULAR: Normal rate, regular rhythm. Sinus. ABDOMEN: Soft, nontender, nondistended. No guarding. MUSCULOSKELETAL: Pulses 2+. No peripheral edema. PIA drain exits the back with a minimal amount of serosanguineous output. Lower lumbar incision site clean dry and intact. NEUROLOGICAL: RASS +1. Muscular skeletal strength 5/5 in all 4 extremities. Sensation grossly intact. No focal deficits, and particularly no deficits of lower extremities. Assessment and Plan - Assessment and Plan Plan: Assessment: 58-year-old male postop day 1 status post L5/S1 discectomy and fusion with severe acute on chronic postoperative pain. We will address his pain in a multimodal manner. Continue previously scheduled IV antibiotics per infectious disease. Admit ICU for close monitoring. s/p L5/S1 discectomy and fusion 10/04 - Admit to ICU - Frequent neuro checks - Dr. 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 - does not appear to be radicular in nature. patient continues to complain of pain isolated to his back with minimal extension to his right leg. - no neuro deficits. Lumbar Discitis/Osteomyelitis/leukocytosis -ID following: Dr. Ignacio - ABX per ID - status post L5/S1 discectomy and fusion by Dr. Groves Supportive tenosynovitis of flexor tendon of left hand -s/p Exploration, wash, repair of wound dehiscence, left palm/ring finger on -s/p ABX as above Atrial fibrillation/hypertension -heart rate and blood pressure controlled -hold Eliquis given nsgy. will restart when cleared by nsgy. -Continue diltiazem, ramipril and furosemide -Monitor heart rate and blood pressure Diabetes mellitus type 2 Monitor blood sugars before meals and at bedtime -Cover with insulin sliding scale -Continue Levemir -Diabetic diet, -Poor blood sugar control due to noncompliance patient consult SCDs Admit to ICU. Level 3 Hospitalist consulted to assume care 10/06/2018
--- NOTE | 2018-10-05 11:26 | XR ---
EXAM DATE: 10/05/2018 11:23 AM EST AGE/SEX: 58 years / Male INDICATIONS: Post instrumentation. Recent lumbar fusion. CLINICAL DATA: This is the patient's subsequent encounter. Patient reports that signs and symptoms h ave been present for 4 - 6 days and indicates a pain score of 5/10. MEDICAL/SURGICAL HISTORY: . Hypertension. Diabetes mellitus type II. . Toe amputation. Lumbar fusion. COMPARISON: [facility] [place], [place] LUMBAR SPINE W CONTRAST, 10/01/2018. . FINDINGS: Skin dilshad overlie the midline abdomen. Surgical drain is present as well. Posterior luis and transp edicular screw fixation hardware placement at L2-L4 and S1. Severe disc space narrowing at L5-S1 with endplate sclerosis and osteophytosis. Grade 1 anterolisthesis of L4 on L5 with endplate irregularity at L4 inferior endplate and L5 superior endplate characteristic of discitis osteomyelitis. CONCLUSION: Postsurgical changes are noted. Electronically signed by: Vaughn Mahan MD 10/05/2018 11:25 AM EST
--- NOTE | 2018-10-05 13:43 | P.PNID ---
Subjective Remarks: ID Xcover for . History ofMrMonisha is a 58-year-old male with known history of discitis and osteomyelitis of the lumbar spine. Patient known to Dr. Ignacio. He underwent aspiration from the lumbar spine back in July 2018 and cultures were negative. 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 He had returned with severe back pain despite strong antibiotic treatment with vancomycin prior to the back biopsy and he was not responding to the vancomycin. It was elected to focus treatment of the back for the same organism recovered from the hand and he was put on antibiotics IV and was subsequently discharged from the hospital last on 09/18/2018 with a PICC line. The patient was administered antibiotics at home. He states that when he was doing the antibiotic, he developed some pain in his right upper extremity where the PICC line is located and the PICC line was not working. He came to the emergency department for that purpose. In the emergency department he had a temperature of 101. He denied chills, nausea, vomiting, shortness of breath. He reports that he was having severe pain on a 10/10 scale. He also noted that he was having pain in the lower back, as well. The patient was admitted to the hospital and started back on the antibiotics. He was receiving tigecycline t.i.d. and cefoxitin in addition to p.o. Biaxin. He tells me that his back feels better today and also felt better yesterday. He states that he was able to walk to the bathroom, which he could not do before without very severe pain. Blood cultures were taken on admission and have no growth in 2 days. Doppler ultrasound of the upper extremity shows occlusive thrombus in the proximal and mid cephalic vein on the right upper extremity. He has no other complaints. 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 Overnight events reviewed with RN Case discussed with neurosurgery Intra-Op purulence was noted and cultures sent for bacterial, fungal and AFB cultures. Additionally he reports to me that the hardware had to be placed for stability reasons. Bedside patient reports continued pain in the back although appears to be very comfortable. Afebrile No rash no diarrhea Tolerating IV antibiotics. Cultures no growth. Currently on empiric antibiotics for osteomyelitis. Antibiotics: Cefoxitin IV Biaxin Lines: Line sites with no evidence of infection. 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 Allergies/Adverse Reactions: Allergies No Known Drug Allergies Allergy (Verified 08/06/18 15:59) none *MDRO Multi-Drug Resistant Organism Adverse Reaction (Unknown, Uncoded 06/16/17 16:34) MRSA MRSA (foot wound) - 02/12/15, 11/12/16, 03/29/17; (toe) - 03/2016 Objective Vital Signs 10/04/18 17:29 10/04/18 17:45 10/04/18 18:00 Temperature 97.5 F L Pulse Rate 83 83 93 H Respiratory Rate 20 20 20 Blood Pressure 120/64 120/61 125/71 Pulse Oximetry 100 100 100 10/04/18 18:15 10/04/18 18:30 10/04/18 18:45 Temperature Pulse Rate 86 93 H 95 H Respiratory Rate 20 20 20 Blood Pressure 135/70 149/66 H 149/66 H Pulse Oximetry 100 100 100 10/04/18 19:00 10/04/18 19:15 10/04/18 19:30 Temperature Pulse Rate 98 H 94 H 95 H Respiratory Rate 20 20 20 Blood Pressure 130/78 119/65 136/58 L Pulse Oximetry 100 100 100 10/04/18 19:45 10/04/18 20:02 10/04/18 20:03 Temperature 97.5 F L Pulse Rate 96 H Respiratory Rate 20 Blood Pressure 125/60 128/66 Pulse Oximetry 100 100 10/04/18 20:10 10/04/18 20:30 10/04/18 21:00 Temperature 97.6 F Pulse Rate 64 92 H 94 H Respiratory Rate 21 25 H 35 H Blood Pressure 125/54 L 106/66 Pulse Oximetry 98 100 10/04/18 21:27 10/04/18 22:00 10/04/18 22:27 Temperature Pulse Rate 97 H 100 H 97 H Respiratory Rate 26 H 29 H 22 Blood Pressure 120/73 120/61 Pulse Oximetry 100 100 100 10/04/18 23:00 10/04/18 23:27 10/05/18 00:00 Temperature 97.8 F Pulse Rate 100 H 102 H 102 H Respiratory Rate 30 H 17 38 H Blood Pressure 105/66 Pulse Oximetry 98 100 100 10/05/18 00:27 10/05/18 01:00 10/05/18 01:27 Temperature Pulse Rate 108 H 108 H 103 H Respiratory Rate 32 H 38 H 18 Blood Pressure 113/58 L 106/78 Pulse Oximetry 100 100 100 10/05/18 02:00 10/05/18 02:27 10/05/18 03:00 Temperature Pulse Rate 103 H 105 H 102 H Respiratory Rate 21 12 30 H Blood Pressure 119/56 L Pulse Oximetry 100 100 100 10/05/18 03:27 10/05/18 04:00 10/05/18 07:00 Temperature 97.7 F Pulse Rate 107 H 103 H 94 H Respiratory Rate 32 H 34 H 20 Blood Pressure 111/56 L Pulse Oximetry 100 100 100 10/05/18 07:27 10/05/18 08:00 10/05/18 08:10 Temperature 97.7 F Pulse Rate 89 77 Respiratory Rate 22 20 18 Blood Pressure 124/66 Pulse Oximetry 100 100 10/05/18 08:27 10/05/18 08:53 10/05/18 09:00 Temperature Pulse Rate 80 82 Respiratory Rate 16 20 22 Blood Pressure 111/58 L Pulse Oximetry 100 100 10/05/18 09:27 10/05/18 10:00 Temperature Pulse Rate 82 82 Respiratory Rate 20 25 H Blood Pressure 108/86 Pulse Oximetry 100 Intake & Output 10/04/18 10/05/18 10/05/18 18:59 06:59 18:59 Intake Total 2050 / 2050 300 / 300 Output Total 1500 / 1500 3645 / 3645 Balance 550 / 550 -3345 / -3345 Weight 87.1 kg Intake: IV 1050 / 1050 300 / 300 Ofirmev Inj 1,000 mg In 100 ml 200 / 200 @ 400 mls/hr IV.SIG Q6HR [facility] Rx #:[id number] LR 1000 mL Inj 1,000 ML @ 30 1000 / 1000 mls/hr IV.SIG .Q24H [facility] Rx#: [id number] Mefoxin Inj 2 GM In D5W Inj 50 50 / 50 100 / 100 ML @ 200 mls/hr IV.SIG Q6H [facility] Rx#:[id number] Oral 0 / 0 Anesthesia Amount 1000 / 1000 Output: Urine 1200 / 1200 Estimated Blood Loss 600 / 600 Urine Amount (Catheter) 900 / 900 2175 / 2175 Indwelling Urethral Catheter 900 / 900 2175 / 2175 Wound Drainage 270 / 270 # 1 Lower Back PIA Drain 270 / 270 Other: # Voids 1 Date of Last Bowel Movement 10/03/18 # Bowel Movements 1 10/04/18 16:56 Tissue - Other Gram Stain - Final 10/04/18 16:56 Tissue - Other Wound Culture - Preliminary No growth in 24 hours 10/04/18 16:05 Wound - Other Gram Stain - Final 10/04/18 16:05 Wound - Other Wound Culture - Preliminary No growth in 24 hours 10/04/18 16:05 Wound - Other Gram Stain - Final 10/04/18 16:05 Wound - Other Wound Culture - Preliminary No growth in 24 hours 10/04/18 16:56 Tissue - Other Fungal Smear - Final No fungal elements seen 10/04/18 16:56 Tissue - Other Fungal Culture - Pending 10/04/18 16:05 Wound - Other Fungal Smear - Final No fungal elements seen 10/04/18 16:05 Wound - Other Fungal Culture - Pending 10/04/18 16:05 Wound - Other Fungal Smear - Final No fungal elements seen 10/04/18 16:05 Wound - Other Fungal Culture - Pending 09/30/18 15:45 Blood - Peripheral Aerobic Blood Culture - Final No growth in 5 days 09/30/18 15:45 Blood - Peripheral Anaerobic Blood Culture - Final No growth in 5 days 09/30/18 15:54 Blood - Peripheral Aerobic Blood Culture - Final No growth in 5 days 09/30/18 15:54 Blood - Peripheral Anaerobic Blood Culture - Final No growth in 5 days 10/04/18 16:56 Tissue - Other Acid Fast Bacilli Smear - Pending 10/04/18 16:56 Tissue - Other Mycobacterial Culture - Pending 10/04/18 16:05 Wound - Other Acid Fast Bacilli Smear - Pending 10/04/18 16:05 Wound - Other Mycobacterial Culture - Pending 10/04/18 16:05 Wound - Other Acid Fast Bacilli Smear - Pending 10/04/18 16:05 Wound - Other Mycobacterial Culture - Pending Lab - Hematology Results 10/04/18 10/05/18 06:34 04:00 WBC 9.4 12.8 H RBC 3.50 L 3.31 L Hgb 9.2 L 8.4 L Hct 26.9 L 25.5 L MCV 76.9 L 77.0 L MCH 26.2 L 25.5 L MCHC 34.1 33.1 RDW 17.2 16.5 Plt Count 493 H 485 H MPV 6.3 L 6.4 L Neut % (Auto) 72.3 H 91.8 H Lymph % (Auto) 14.4 4.8 L [place] % (Auto) 8.6 H 3.1 Eos % (Auto) 4.1 H 0.0 Baso % (Auto) 0.6 0.3 Neut # (Auto) 6.8 11.7 H Lymph # (Auto) 1.3 0.6 L [place] # (Auto) 0.8 0.4 Eos # (Auto) 0.4 0.0 Baso # (Auto) 0.1 0.0 WBC Differential . . Differential Comment Auto diff final Auto diff final Lab - Chemistry Results 10/03/18 10/04/18 10/04/18 21:16 06:34 06:34 Sodium Potassium Chloride Carbon Dioxide Anion Gap BUN Creatinine Estimated GFR POC Glucose 224 H Random Glucose Hemoglobin A1c 7.7 H Calcium Phosphorus Magnesium Total Bilirubin AST ALT Alkaline Phosphatase Total Protein Albumin TSH Free T4 0.95 10/04/18 10/04/18 10/04/18 06:34 07:43 17:37 Sodium 137 Potassium 4.1 Chloride 101 Carbon Dioxide 25.4 Anion Gap 11 BUN 23 H Creatinine 0.75 Estimated GFR Greater than 89 POC Glucose 208 H 170 H Random Glucose 170 H D Hemoglobin A1c Calcium 8.8 Phosphorus 3.1 Magnesium 1.9 Total Bilirubin 0.1 L AST 17 ALT 20 Alkaline Phosphatase 170 H Total Protein 7.4 Albumin 2.2 L TSH 1.130 Free T4 10/04/18 10/04/18 10/05/18 21:42 21:50 04:00 Sodium 136 Potassium 4.5 Chloride 100 Carbon Dioxide 24.9 Anion Gap 11 BUN 22 H Creatinine 1.12 Estimated GFR 67 L POC Glucose 300 H 319 H Random Glucose 451 H* D Hemoglobin A1c Calcium 8.4 L Phosphorus 3.5 Magnesium 1.9 Total Bilirubin 0.2 AST 19 ALT 19 Alkaline Phosphatase 133 H Total Protein 6.7 D Albumin 2.0 L TSH Free T4 10/05/18 10/05/18 10/05/18 08:09 10:36 10:38 Sodium Potassium Chloride Carbon Dioxide Anion Gap BUN Creatinine Estimated GFR POC Glucose 510 H* 427 H 417 H Random Glucose Hemoglobin A1c Calcium Phosphorus Magnesium Total Bilirubin AST ALT Alkaline Phosphatase Total Protein Albumin TSH Free T4 10/05/18 12:26 Sodium Potassium Chloride Carbon Dioxide Anion Gap BUN Creatinine Estimated GFR POC Glucose 340 H Random Glucose Hemoglobin A1c Calcium Phosphorus Magnesium Total Bilirubin AST ALT Alkaline Phosphatase Total Protein Albumin TSH Free T4 Imaging: ITS Impressions Venous Doppler Study 09/23/18 13:35 CONCLUSION: 1. Occlusive thrombus in the proximal and mid cephalic vein. 2. Deep venous system is otherwise patent. 3. Heterogeneous hypoechoic collection along the right shoulder which could represent a hematoma and/or seroma. Lumbar Spine MRI 09/25/18 00:00 CONCLUSION: 1. Findings are diagnostic of discitis osteomyelitis at L4-L5 with epidural abscess posterior to the L4 and L5 vertebral body. This epidural material along with facet hypertrophy moderately narrows the spinal canal at this level. There additionally is some perivertebral enhancing material likely representing small perivertebral abscess. It is challenging to compare to the prior study since it was significantly degraded by motion artifact. However, the findings are similar and do not appear improved. 2. There is mild edema within the L2 disc space and minimal endplate irregularity and enhancement of L2. These changes could be secondary to degenerative disc disease but cannot exclude early discitis. Suggest attention to this area at follow-up imaging. Chest X-Ray 09/30/18 14:47 CONCLUSION: No acute cardiopulmonary disease. Lumbar Spine CT 10/01/18 00:00 CONCLUSION: 1. Destructive changes again noted involving the endplates at the L4-5 level consistent with the known discitis/osteomyelitis. There is abnormal soft tissue density the anterior epidural space consistent with the known epidural abscess. This does not appear significantly changed from the MRI examination. There is moderate central canal stenosis at this level. 2. Mild to moderate central canal stenosis also noted at the L2-3 level secondary to disc osteophyte complexes and degenerative change involving the facets. 3. Stable mild anterior spondylolisthesis of L4 on L5. Wrist X-Ray 10/03/18 00:00 CONCLUSION: Osteoarthritic findings of the wrist. Mild distal radioulnar joint narrowing. Cyst or erosion at the lateral aspect of the lunate. Lumbar Spine X-Ray 10/05/18 00:00 CONCLUSION: Postsurgical changes are noted. Physical Exam: PHYSICAL EXAMINATION: GENERAL: No acute distress. HEENT: Head atraumatic. Extraocular movements grossly intact. Pupils reactive to light, without icterus. Oropharynx: Moist mucosa. No visible lesions. No thrush. NECK: Supple without adenopathy or swelling. LUNGS: Clear breath sounds. HEART: Regular S1, S2, without murmurs, rubs or gallops. ABDOMEN: Bowel sounds present; flat, soft, no tenderness appreciated. EXTREMITIES: No clubbing or cyanosis or edema. SKIN: Maculopapular green rash fading on the back and arms and abdomen. NEUROLOGIC: Nonfocal. PSYCHIATRIC: Anxious. Assessment and Plan - Plan ASSESSMENT AND PLAN: 1. Catheter related infection from PICC line. 2. Thrombus of the right upper extremity related to PICC line. 3. Known diskitis and osteomyelitis of the lumbar spine, currently being treated with empiric IV antibiotics with antibiotics directed at Mycobacterium Abscesses because that is the bacteria which was cultured from the left hand. He did not respond to vancomycin which was given previously. Does not appear to be improving despite despite antibiotics. Due to ongoing pain patient had neurosurgery. 4. 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 5. Chronic pain. 6. New fever. Blood culture pending. Recommendations Continue cefoxitin IV Continue Biaxin IV Follow Intra-Op cultures as well as pathology Dr. Ignacio to resume care on October 07, 2018. If any changes in the interim please call through the flotation operator.
[2018-10-05] MEDS: dilTIAZem CD 240 MG Capsule PO SCH (15:22)
[2018-10-06] MEDS: HYDROmorphone PCA Inj 6 MG/30 ML PCA.VIAL PCA PRN ×4 (01:54→18:10)
[2018-10-06] MEDS: DEXTROSE 5% IV.SIG SCH ×10 (04:03→21:50)
[2018-10-06] MEDS: CEFOXITIN IV.SIG SCH ×8 (04:03→21:50)
[2018-10-06] MEDS: WATER IV.SIG SCH ×10 (04:03→21:50)
[2018-10-06] MEDS: Meloxicam 7.5 MG Tablet PO SCH ×3 (05:21→19:49)
[2018-10-06] MEDS: Baclofen 10 MG Tablet PO SCH ×3 (05:21→21:50)
--- NOTE | 2018-10-06 09:46 | P.PNIM ---
Subjective Interval history: Pt seen and examined for f/u discitis s/p L5/SI discectomy and fusion POD 2. Complains of pain in his back and right shoulder pain. Reports he twitches and his arms become spastic when he is in pain. He is on a Dilaudid [employer] pump. He has no other complaints. He states he hopes the wound cultures are positive so there is something to treat. Physical Exam Vital signs: Vital Signs 10/05/18 10:00 10/05/18 11:36 10/05/18 12:00 Temperature Pulse Rate 82 75 80 Respiratory Rate 25 H Blood Pressure 117/82 Pulse Oximetry 91 L 10/05/18 13:00 10/05/18 14:00 10/05/18 15:00 Temperature Pulse Rate 75 81 83 Respiratory Rate 20 Blood Pressure 119/76 129/59 L Pulse Oximetry 93 L 94 L 91 L 10/05/18 16:00 10/05/18 16:44 10/05/18 20:00 Temperature 97.1 F L 97.5 F L Pulse Rate 81 82 70 Respiratory Rate 19 18 Blood Pressure 121/64 96/51 L Pulse Oximetry 98 94 L 94 L 10/05/18 21:06 10/05/18 23:35 10/06/18 00:00 Temperature 97.7 F Pulse Rate 66 Respiratory Rate 18 18 16 Blood Pressure 100/55 L Pulse Oximetry 94 L 10/06/18 04:00 10/06/18 04:42 10/06/18 08:00 Temperature 97.9 F 99.0 F Pulse Rate 71 97 H Respiratory Rate 16 18 18 Blood Pressure 97/53 L 115/58 L Pulse Oximetry 96 98 Intake & Output 10/05/18 10/06/18 10/06/18 18:59 06:59 18:59 Intake Total 390 / 390 960 / 960 Output Total 1395 / 1395 1050 / 1050 Balance -1005 / -1005 -90 / -90 Weight 87 kg Intake: IV 150 / 150 200 / 200 Ofirmev Inj 1,000 mg In 100 ml 100 / 100 100 / 100 @ 400 mls/hr IV.SIG Q6HR [facility] Rx #:[id number] Mefoxin Inj 2 GM In D5W Inj 50 50 / 50 100 / 100 ML @ 200 mls/hr IV.SIG Q6H [facility] Rx#:[id number] Oral 240 / 240 760 / 760 Output: Urine 1300 / 1300 1000 / 1000 Wound Drainage 95 / 95 50 / 50 # 1 Lower Back PIA Drain 95 / 95 50 / 50 Other: Date of Last Bowel Movement 10/04/18 10/04/18 # Bowel Movements 0 Narrative: GENERAL: Disheveled appearing male laying in bed. SKIN: Warm and dry. HEENT: AT/NC. Pupils equal and round. MMM. HEART: RRR no m/r/g. LUNGS: CTAB without wheezes or crackles. ABDOMEN: +BS, soft, NT, ND. EXTREMITIES: No LE edema. SCDs in place. Vertical incision over L knee. BACK: PIA drain with serosanguineous output. NEURO: Talking to himself prior to when I entered the room. Patient with spastic movements of his upper extremities. PSYCH: Appropriate mood and affect. - Urinary Catheter Management Indwelling Urethral Catheter Cath placed during this visit: yes, but has since been removed by the nurse Reason for continuing: Decision to DC catheter Removal date: 10/05/18 Removal time: 09:30 Results - Labs CBC & Chem 7: 10/05/18 04:00 10/05/18 04:00 Laboratory Results - last 24 hr 10/05/18 10/05/18 10/05/18 10:36 10:38 12:26 POC Glucose 427 H 417 H 340 H 10/05/18 10/05/18 10/06/18 17:08 19:53 08:34 POC Glucose 240 H 182 H 104 Microbiology 10/04/18 16:56 Tissue - Other Gram Stain - Final 10/04/18 16:56 Tissue - Other Wound Culture - Preliminary No growth in 48 hours 10/04/18 16:05 Wound - Other Gram Stain - Final 10/04/18 16:05 Wound - Other Wound Culture - Preliminary No growth in 24 hours 10/04/18 16:05 Wound - Other Gram Stain - Final 10/04/18 16:05 Wound - Other Wound Culture - Preliminary No growth in 48 hours 10/04/18 16:56 Tissue - Other Fungal Smear - Final No fungal elements seen 10/04/18 16:05 Wound - Other Fungal Smear - Final No fungal elements seen 10/04/18 16:05 Wound - Other Fungal Smear - Final No fungal elements seen 09/30/18 15:45 Blood - Peripheral Aerobic Blood Culture - Final No growth in 5 days 09/30/18 15:45 Blood - Peripheral Anaerobic Blood Culture - Final No growth in 5 days 09/30/18 15:54 Blood - Peripheral Aerobic Blood Culture - Final No growth in 5 days 09/30/18 15:54 Blood - Peripheral Anaerobic Blood Culture - Final No growth in 5 days - Imaging Impressions Lumbar Spine X-Ray 10/05/18 00:00 CONCLUSION: Postsurgical changes are noted. Assessment and Plan - Assessment (1) Osteomyelitis Code(s): M86.9 - Osteomyelitis, unspecified Status: Acute (2) Diabetes Code(s): E11.9 - Type 2 diabetes mellitus without complications Status: Chronic (3) Strain of lumbar region Code(s): S39.012A - Strain of muscle, fascia and tendon of lower back, initial encounter Status: Acute (4) Lumbar radiculopathy Code(s): M54.16 - Radiculopathy, lumbar region Status: Acute (5) Suppurative tenosynovitis of flexor tendon of left hand Code(s): M65.142 - Other infective (teno)synovitis, left hand Status: Chronic (6) Abscess of hand, left Code(s): L02.512 - Cutaneous abscess of left hand Status: Acute (7) Mycobacterium abscessus infection Code(s): A31.9 - Mycobacterial infection, unspecified Status: Acute (8) Malfunction of peripheral inserted central catheter Code(s): T82.598A - Other mechanical complication of other cardiac and vascular devices and implants, initial encounter Status: Acute (9) Antibiotic long-term use Code(s): 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 MRI during admission showed no real improvement and his pain was severe so neurosurgery was consulted for better source control. 1. L4-L5 discitis - Neurosurgery following, s/p L5/S1 discectomy and fusion on 10/04 - ID following, continue cefoxitin and Biaxin - Intra-op cultures pending - On [employer] pump 2. Chronic pain syndrome, opioid dependence - Required critical care to manage pain following surgery (received methadone IV , ketamine, and and versed on 10/04 to control pain) - Continue gabapentin 300 mg ITD - IV Tylenol scheduled for three days - Continue Mobic daily - Clonidine 0.2mg po q8h - Oxycodone 30mg po q4h prn - Dilaudid [employer] to 0.4mg iv q6min demand - Needs pain management on discharge 3. Tenosynovitis L hand - s/p exploration, wash, repair of wound dehiscence, left palm/ring finger on - s/p ABX as above 4. Atrial fibrillation - Currently rate-controlled - Restart Eliquis when cleared by neurosurgery - Continue Diltiazem - Monitor vitals 5. HTN - Blood pressure controlled - Continue ramipril and furosemide - Continue to monitor and adjust meds as needed 6. Diabetes mellitus - A1c 7.8 - Continue Levemir - SSI with Accu-Cheks per protocol - Diabetic diet 7. Right shoulder pain - No trauma, possibly related to sleep position - Given history of infections, will obtain shoulder XR - Pain control as above DVT prophylaxis: SCDs Discharge Planning: Pending finalization of cultures and recommendations by specialists involved (1) Osteomyelitis Qualifiers: Osteomyelitis type: unspecified type Osteomyelitis location: unspecified site Qualified Code(s): M86.9 - Osteomyelitis, unspecified (3) Strain of lumbar region Qualifiers: Encounter type: initial encounter Qualified Code(s): S39.012A - Strain of muscle, fascia and tendon of lower back, initial encounter (8) Malfunction of peripheral inserted central catheter Qualifiers: Encounter type: initial encounter Qualified Code(s): T82.598A - Other mechanical complication of other cardiac and vascular devices and implants, initial encounter
[2018-10-06] MEDS: Gabapentin 300 MG Capsule PO SCH ×4 (09:52→18:09)
[2018-10-06] MEDS: Senna/Docusate Sodium 8.6/50 MG Tablet PO SCH ×2 (09:52→21:51)
[2018-10-06] MEDS: Insulin Detemir Inj 1,000 UNIT/10 ML Vial SQ SCH ×2 (09:53→21:49)
[2018-10-06] MEDS: Furosemide 20 MG Tablet PO SCH ×2 (09:53→21:50)
[2018-10-06] MEDS: Insulin NovoLOG Aspart Correctional Sugar Inj SQ SCH ×5 (10:36→21:32)
[2018-10-06] MEDS: Sodium Chloride 0.9% 2 ML Flush BID IV.FLUSH SCH ×2 (10:43→21:51)
[2018-10-06] MEDS: Ramipril 2.5 MG Capsule PO SCH (11:31)
--- NOTE | 2018-10-06 14:04 | P.PNNS ---
Subjective Interval history: Transferrred, resting comfortably, drain putting out Physical Exam Vital signs: Vital Signs 10/05/18 15:00 10/05/18 16:00 10/05/18 16:44 Temperature 97.1 F L Pulse Rate 83 81 82 Respiratory Rate 19 Blood Pressure 121/64 Pulse Oximetry 91 L 98 94 L 10/05/18 20:00 10/05/18 21:06 10/05/18 23:35 Temperature 97.5 F L Pulse Rate 70 Respiratory Rate 18 18 18 Blood Pressure 96/51 L Pulse Oximetry 94 L 10/06/18 00:00 10/06/18 04:00 10/06/18 04:42 Temperature 97.7 F 97.9 F Pulse Rate 66 71 Respiratory Rate 16 16 18 Blood Pressure 100/55 L 97/53 L Pulse Oximetry 94 L 96 10/06/18 08:00 10/06/18 12:00 Temperature 99.0 F 97.7 F Pulse Rate 97 H 101 H Respiratory Rate 18 19 Blood Pressure 115/58 L 104/55 L Pulse Oximetry 98 92 L Intake & Output 10/05/18 10/06/18 10/06/18 18:59 06:59 18:59 Intake Total 390 / 390 1060 / 1060 50 / 50 Output Total 1395 / 1395 1050 / 1050 Balance -1005 / -1005 50 / 50 Weight 87 kg Intake: IV 150 / 150 300 / 300 50 / 50 Ofirmev Inj 1,000 mg In 100 ml 100 / 100 200 / 200 @ 400 mls/hr IV.SIG Q6HR ROBBIE Rx #:[id number] Mefoxin Inj 2 GM In D5W Inj 50 50 / 50 100 / 100 50 / 50 ML @ 200 mls/hr IV.SIG Q6H ROBBIE Rx#:[id number] Oral 240 / 240 760 / 760 Output: Urine 1300 / 1300 1000 / 1000 Wound Drainage 95 / 95 50 / 50 # 1 Lower Back PIA Drain 95 / 95 50 / 50 Other: Date of Last Bowel Movement 10/04/18 10/04/18 # Bowel Movements 0 Narrative: A&O x 3 Dressing c/d/i PIA drain putting out Moves all extremities x 4 with full strength - Urinary Catheter Management Indwelling Urethral Catheter Cath placed during this visit: yes, but has since been removed by the nurse Reason for continuing: Decision to DC catheter Removal date: 10/05/18 Removal time: 09:30 Assessment and Plan - Plan MRI: 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 Plan: 10/01/18: Given the persistent symptoms, it is reasonable to stabilize his spine with instrumentation from L2-S1 and simultaneously do a laminectomy at L4/5 to get cultures. Patient understands the risks of surgery including paralysis and sepsis, and wishes to proceed. I discussed with ID and the medicine team. There is risk of instrumentation failure down the line due to persistent infection and his history of susceptibility to infections. However, conservative measures do not look like they are working with IV abx and bracing does not seem to be helping. We will proceed tomorrow with surgery, monitoring , instrumentation, concentric C. 10/02/18: Surgery today postpone as patient got one dose of eliquis on 10/01 in the morning. Recommendations to wait 48 hours given heavy risk of bleeding and already low preop H/H of 8.3/24. Type and Cross to be performed for full antibody panel, plan Sunday noon case at present. Discussed with patient, anesthesiologist and primary team Adela CRAIG. 10/03/18: surgery with Dr. Groves planned for tomorrow. NPO tonight at midnight. 10/04/18: surgery tentatively 1:30 today 10/05/18: Follow cultures from OR -- ID. Mobilize (ok to have brace off for short distances, would prefer to use brace when walking long distance). D/c maki. Pain control and ok for transfer back to primary service. Continue to monitor drain output. L-spine xrays today. 10/06/18: Xrays look good. OR cultures -- 1 positive for Portia, rest pending. Mobilize. D/c sound controller tomorrow per primary team. Transferred to floor. Brace when walking long distances-- PT.
--- NOTE | 2018-10-06 15:24 | P.PNID ---
Infectious Disease Brief Note Vital Signs - 24 hr informed me the intra op cultures growing C.albicans. Started patient on Ampho Lipo id to resume care in am. Consider calling micro to test for C.albicans susceptibility as patient will eventually need oral suppression due to hardware in place. 10/05/18 16:00 10/05/18 16:44 10/05/18 20:00 Temperature 97.1 F L 97.5 F L Pulse Rate 81 82 70 Respiratory Rate 19 18 Blood Pressure 121/64 96/51 L Pulse Oximetry 98 94 L 94 L 10/05/18 21:06 10/05/18 23:35 10/06/18 00:00 Temperature 97.7 F Pulse Rate 66 Respiratory Rate 18 18 16 Blood Pressure 100/55 L Pulse Oximetry 94 L 10/06/18 04:00 10/06/18 04:42 10/06/18 08:00 Temperature 97.9 F 99.0 F Pulse Rate 71 97 H Respiratory Rate 16 18 18 Blood Pressure 97/53 L 115/58 L Pulse Oximetry 96 98 10/06/18 12:00 Temperature 97.7 F Pulse Rate 101 H Respiratory Rate 19 Blood Pressure 104/55 L Pulse Oximetry 92 L Laboratory Results - last 24 hr 10/05/18 10/05/18 10/06/18 17:08 19:53 08:34 POC Glucose 240 H 182 H 104 10/06/18 11:37 POC Glucose 150 H
[2018-10-06] MEDS: dilTIAZem CD 240 MG Capsule PO SCH (16:56)
[2018-10-06] MEDS: AMPHOTERICIN B LIPOSOMAL IV.SIG SCH ×2 (21:21)
[2018-10-07] MEDS: CEFOXITIN IV.SIG SCH ×8 (04:43→22:01)
[2018-10-07] MEDS: WATER IV.SIG SCH ×10 (04:43→22:01)
[2018-10-07] MEDS: DEXTROSE 5% IV.SIG SCH ×10 (04:43→22:01)
[2018-10-07] MEDS: Baclofen 10 MG Tablet PO SCH ×3 (06:11→22:00)
[2018-10-07] MEDS: Meloxicam 7.5 MG Tablet PO SCH ×2 (06:11→17:11)
[2018-10-07] MEDS: HYDROmorphone PCA Inj 6 MG/30 ML PCA.VIAL PCA PRN (06:58)
[2018-10-07] MEDS: Gabapentin 300 MG Capsule PO SCH ×3 (08:23→18:30)
[2018-10-07] MEDS: Senna/Docusate Sodium 8.6/50 MG Tablet PO SCH ×2 (08:23→22:05)
[2018-10-07] MEDS: Ramipril 2.5 MG Capsule PO SCH (08:23)
[2018-10-07] MEDS: Furosemide 20 MG Tablet PO SCH ×2 (08:23→22:05)
[2018-10-07] MEDS: Insulin Detemir Inj 1,000 UNIT/10 ML Vial SQ SCH ×2 (09:26→22:02)
[2018-10-07] MEDS: Sodium Chloride 0.9% 2 ML Flush BID IV.FLUSH SCH (09:30)
--- NOTE | 2018-10-07 11:21 | P.PN ---
Subjective Interval history: Follow-up L4-L5 osteomyelitis October 07, 2018-patient seen and examined, complaining of back pain otherwise stable. Afebrile. No acute event overnight. Currently on amphotericin B as of October 06, 2018 Physical Exam Vital signs: Vital Signs 10/06/18 12:00 10/06/18 16:00 10/06/18 20:00 Temperature 97.7 F 98.4 F 97.5 F L Pulse Rate 101 H 91 H 107 H Respiratory Rate 19 17 17 Blood Pressure 104/55 L 90/52 L 107/52 L Pulse Oximetry 92 L 98 93 L 10/06/18 22:04 10/07/18 00:00 10/07/18 04:00 Temperature 99.1 F 98.3 F Pulse Rate 63 70 Respiratory Rate 16 16 16 Blood Pressure 124/57 L 133/59 L Pulse Oximetry 92 L 92 L 10/07/18 08:00 Temperature 97.3 F L Pulse Rate 72 Respiratory Rate 18 Blood Pressure 102/58 L Pulse Oximetry 97 Intake & Output 10/06/18 10/07/18 10/07/18 18:59 06:59 18:59 Intake Total 800 / 800 630 / 630 Output Total 1200 / 1200 650 / 650 Balance -400 / -400 -20 / -20 Weight 87 kg Intake: IV 200 / 200 150 / 150 Ofirmev Inj 1,000 mg In 100 ml 100 / 100 100 / 100 @ 400 mls/hr IV.SIG Q6HR ROBBIE Rx #:[id number] Mefoxin Inj 2 GM In D5W Inj 50 100 / 100 50 / 50 ML @ 200 mls/hr IV.SIG Q6H ROBBIE Rx#:[id number] Oral 600 / 600 480 / 480 Output: Urine 1200 / 1200 600 / 600 Wound Drainage 50 / 50 # 1 Lower Back PIA Drain 50 / 50 Other: Date of Last Bowel Movement 10/05/18 10/05/18 # Bowel Movements 0 Narrative: GENERAL: NAD SKIN: Warm and dry. HEAD: Atraumatic. Normocephalic. EYES: Pupils equal and round. No scleral icterus. No injection or drainage. ENT: No nasal bleeding or discharge. Mucous membranes pink and moist. NECK: Trachea midline. No JVD. CARDIOVASCULAR: Regular rate and rhythm. RESPIRATORY: No accessory muscle use. Clear to auscultation. Breath sounds equal bilaterally. GASTROINTESTINAL: Abdomen soft, non-tender, nondistended. Hepatic and splenic margins not palpable. MUSCULOSKELETAL: Extremities without clubbing, cyanosis, or edema. No obvious deformities. NEUROLOGICAL: Awake and alert. No obvious cranial nerve deficits. Motor grossly within normal limits. Five out of 5 muscle strength in the arms and legs. Normal speech. PSYCHIATRIC: Appropriate mood and affect; insight and judgment normal. - Urinary Catheter Management Indwelling Urethral Catheter Cath placed during this visit: yes, but has since been removed by the nurse Reason for continuing: Decision to DC catheter Removal date: 10/05/18 Removal time: 09:30 Results - Labs CBC & Chem 7: 10/05/18 04:00 10/05/18 04:00 Laboratory Results - last 24 hr 10/06/18 10/06/18 10/06/18 11:37 17:08 18:17 POC Glucose 150 H 60 L 52 L 10/06/18 10/06/18 10/07/18 19:11 21:20 08:21 POC Glucose 115 H 147 H 112 H Microbiology 10/04/18 16:05 Wound - Other Gram Stain - Final 10/04/18 16:05 Wound - Other Wound Culture - Final Portia albicans 10/04/18 16:56 Tissue - Other Gram Stain - Final 10/04/18 16:56 Tissue - Other Wound Culture - Preliminary No growth in 48 hours 10/04/18 16:05 Wound - Other Gram Stain - Final 10/04/18 16:05 Wound - Other Wound Culture - Preliminary No growth in 48 hours - Procedures L2-S1 posterior spinal fusion Pedicle screws fixation L2, L3, L4 6.5x50mm and s1 7.5x45, Rods [id number], Spinewave system Use of 3D fluoroscopy Assessment and Plan - Assessment (1) Osteomyelitis Code(s): M86.9 - Osteomyelitis, unspecified Status: Acute (2) Diabetes Code(s): E11.9 - Type 2 diabetes mellitus without complications Status: Chronic (3) Strain of lumbar region Code(s): S39.012A - Strain of muscle, fascia and tendon of lower back, initial encounter Status: Acute (4) Lumbar radiculopathy Code(s): M54.16 - Radiculopathy, lumbar region Status: Acute (5) Suppurative tenosynovitis of flexor tendon of left hand Code(s): M65.142 - Other infective (teno)synovitis, left hand Status: Chronic (6) Abscess of hand, left Code(s): L02.512 - Cutaneous abscess of left hand Status: Acute (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 L4-L5 discitis - Neurosurgery following, s/p L5/S1 discectomy and fusion on 10/04 -Intraoperative culture positive for C. Albican, patient currently on amphotericin B 10/06/18 as well as Cefoxitin 2gm IV Q6H +Biaxin pending further evaluation from ID -Appreciate input from neurosurgery, pain management accordingly 2. 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 Dilaudid - Needs pain management on discharge 3. Tenosynovitis L hand - s/p exploration, wash, repair of wound dehiscence, left palm/ring finger on - s/p ABX as above 4. Atrial fibrillation - Currently rate-controlled - Restart Eliquis when cleared by neurosurgery - Continue Diltiazem 5. HTN - Continue ramipril and furosemide 6. Diabetes mellitus - A1c 7.8 - Continue Levemir - SSI with Accu-Cheks per protocol 7. Right shoulder pain-improved - No trauma, possibly related to sleep position - Pain control as above DVT prophylaxis: SCDs (1) Osteomyelitis Qualifiers: Osteomyelitis type: unspecified type Osteomyelitis location: unspecified site Qualified Code(s): M86.9 - Osteomyelitis, unspecified (3) Strain of lumbar region Qualifiers: Encounter type: initial encounter Qualified Code(s): S39.012A - Strain of muscle, fascia and tendon of lower back, initial encounter (8) Malfunction of peripheral inserted central catheter Qualifiers: Encounter type: initial encounter Qualified Code(s): T82.598A - Other mechanical complication of other cardiac and vascular devices and implants, initial encounter
[2018-10-07] MEDS ORDERED: Naloxone Inj 0.4 MG/ML Vial IV.PUSH PRN (11:26)
[2018-10-07] MEDS: Sodium Chloride 0.9% 2 ML Flush PRN IV.FLUSH (11:33)
--- NOTE | 2018-10-07 13:07 | P.PNNS ---
Subjective Interval history: continues to c/o moderate back pain and right thigh pain, continues use of LEGAL INSTRUCTOR. Physical Exam Vital signs: Vital Signs 10/06/18 16:00 10/06/18 20:00 10/06/18 22:04 Temperature 98.4 F 97.5 F L Pulse Rate 91 H 107 H Respiratory Rate 17 17 16 Blood Pressure 90/52 L 107/52 L Pulse Oximetry 98 93 L 10/07/18 00:00 10/07/18 04:00 10/07/18 08:00 Temperature 99.1 F 98.3 F 97.3 F L Pulse Rate 63 70 72 Respiratory Rate 16 16 18 Blood Pressure 124/57 L 133/59 L 102/58 L Pulse Oximetry 92 L 92 L 97 10/07/18 12:00 Temperature 97.9 F Pulse Rate 76 Respiratory Rate 16 Blood Pressure 98/53 L Pulse Oximetry 98 Intake & Output 10/06/18 10/07/18 10/07/18 18:59 06:59 18:59 Intake Total 800 / 800 780 / 780 Output Total 1200 / 1200 650 / 650 Balance -400 / -400 130 / 130 Weight 87 kg Intake: IV 200 / 200 300 / 300 Ofirmev Inj 1,000 mg In 100 ml 100 / 100 200 / 200 @ 400 mls/hr IV.SIG Q6HR ROBBIE Rx #:[id number] Mefoxin Inj 2 GM In D5W Inj 50 100 / 100 100 / 100 ML @ 200 mls/hr IV.SIG Q6H ROBBIE Rx#:[id number] Oral 600 / 600 480 / 480 Output: Urine 1200 / 1200 600 / 600 Wound Drainage 50 / 50 # 1 Lower Back PIA Drain 50 / 50 Other: Date of Last Bowel Movement 10/05/18 10/05/18 # Bowel Movements 0 Narrative: A&O x 3 Appears comfortable, NAD Dressing c/d/i PIA drain put out 50 cc overnight Moves all extremities, slight weakness 5- left iliopsoas, quadriceps - Urinary Catheter Management Indwelling Urethral Catheter Cath placed during this visit: yes, but has since been removed by the nurse Reason for continuing: Decision to DC catheter Removal date: 10/05/18 Removal time: 09:30 Assessment and Plan - Plan MRI: 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 Plan: 10/01/18: Given the persistent symptoms, it is reasonable to stabilize his spine with instrumentation from L2-S1 and simultaneously do a laminectomy at L4/5 to get cultures. Patient understands the risks of surgery including paralysis and sepsis, and wishes to proceed. I discussed with ID and the medicine team. There is risk of instrumentation failure down the line due to persistent infection and his history of susceptibility to infections. However, conservative measures do not look like they are working with IV abx and bracing does not seem to be helping. We will proceed tomorrow with surgery, monitoring , instrumentation, concentric C. 10/02/18: Surgery today postpone as patient got one dose of eliquis on 10/01 in the morning. Recommendations to wait 48 hours given heavy risk of bleeding and already low preop H/H of 8.3/24. Type and Cross to be performed for full antibody panel, plan Sunday noon case at present. Discussed with patient, anesthesiologist and primary team Adela CRAIG. 10/03/18: surgery with Dr. Groves planned for tomorrow. NPO tonight at midnight. 10/04/18: surgery tentatively 1:30 today 10/05/18: Follow cultures from OR -- ID. Mobilize (ok to have brace off for short distances, would prefer to use brace when walking long distance). D/c maki. Pain control and ok for transfer back to primary service. Continue to monitor drain output. L-spine xrays today. 10/06/18: Xrays look good. OR cultures -- 1 positive for Portia, rest pending. Mobilize. D/c correction officer [facility] tomorrow per primary team. Transferred to floor. Brace when walking long distances-- PT. 10/07/18: cont PIA draining for today given his infection. f/u cultures, cont abx therapy per ID. Brace when ambulating, cont PT
--- NOTE | 2018-10-07 16:02 | P.PNID ---
Subjective Remarks: Notes reviewed. Status post L2-S1 posterior spinal fusion, Pedicle screws fixation. L2, L3, L4 6.5x50mm and s1 7.5x45, Rods [id number], Spinewave system Patient notes that he is not able to move his left leg very well. Still complaining of pain. Assuming certain positions in bed to relieve the pain. He does not appear to be grimacing from pain. No fever or chills. No SOB. Afebrile Notes itching of the skin on the back. Has punctate petechial skin rash confined to the back on the right side. Surgical Intra-Op culture has Portia albicans. Antibiotics: Cefoxitin IV Biaxin Amphotericin B Lines: Line sites with no evidence of infection. 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 Allergies/Adverse Reactions: Allergies No Known Drug Allergies Allergy (Verified 08/06/18 15:59) none *MDRO Multi-Drug Resistant Organism Adverse Reaction (Unknown, Uncoded 06/16/17 16:34) MRSA MRSA (foot wound) - 02/12/15, 11/12/16, 03/29/17; (toe) - 03/2016 Objective Vital Signs 10/06/18 16:00 10/06/18 20:00 10/06/18 22:04 Temperature 98.4 F 97.5 F L Pulse Rate 91 H 107 H Respiratory Rate 17 17 16 Blood Pressure 90/52 L 107/52 L Pulse Oximetry 98 93 L 10/07/18 00:00 10/07/18 04:00 10/07/18 08:00 Temperature 99.1 F 98.3 F 97.3 F L Pulse Rate 63 70 72 Respiratory Rate 16 16 18 Blood Pressure 124/57 L 133/59 L 102/58 L Pulse Oximetry 92 L 92 L 97 10/07/18 12:00 Temperature 97.9 F Pulse Rate 76 Respiratory Rate 16 Blood Pressure 98/53 L Pulse Oximetry 98 Intake & Output 10/06/18 10/07/18 10/07/18 18:59 06:59 18:59 Intake Total 800 / 800 780 / 780 Output Total 1200 / 1200 650 / 650 Balance -400 / -400 130 / 130 Weight 87 kg Intake: IV 200 / 200 300 / 300 Ofirmev Inj 1,000 mg In 100 ml 100 / 100 200 / 200 @ 400 mls/hr IV.SIG Q6HR ROBBIE Rx #:[id number] Mefoxin Inj 2 GM In D5W Inj 50 100 / 100 100 / 100 ML @ 200 mls/hr IV.SIG Q6H ROBBIE Rx#:[id number] Oral 600 / 600 480 / 480 Output: Urine 1200 / 1200 600 / 600 Wound Drainage 50 / 50 # 1 Lower Back PIA Drain 50 / 50 Other: Date of Last Bowel Movement 10/05/18 10/05/18 # Bowel Movements 0 10/04/18 16:05 Other - Pending 10/04/18 16:05 Wound - Other Gram Stain - Final 10/04/18 16:05 Wound - Other Wound Culture - Preliminary Portia albicans 10/04/18 16:56 Tissue - Other Gram Stain - Final 10/04/18 16:56 Tissue - Other Wound Culture - Final No growth in 72 hours (aerobically and anaerobically ) 10/04/18 16:05 Wound - Other Gram Stain - Final 10/04/18 16:05 Wound - Other Wound Culture - Final No growth in 72 hours (aerobically and anaerobically ) 10/04/18 16:56 Tissue - Other Fungal Smear - Final No fungal elements seen 10/04/18 16:56 Tissue - Other Fungal Culture - Pending 10/04/18 16:05 Wound - Other Fungal Smear - Final No fungal elements seen 10/04/18 16:05 Wound - Other Fungal Culture - Pending 10/04/18 16:05 Wound - Other Fungal Smear - Final No fungal elements seen 10/04/18 16:05 Wound - Other Fungal Culture - Pending 09/30/18 15:45 Blood - Peripheral Aerobic Blood Culture - Final No growth in 5 days 09/30/18 15:45 Blood - Peripheral Anaerobic Blood Culture - Final No growth in 5 days 09/30/18 15:54 Blood - Peripheral Aerobic Blood Culture - Final No growth in 5 days 09/30/18 15:54 Blood - Peripheral Anaerobic Blood Culture - Final No growth in 5 days 10/04/18 16:56 Tissue - Other Acid Fast Bacilli Smear - Pending 10/04/18 16:56 Tissue - Other Mycobacterial Culture - Pending 10/04/18 16:05 Wound - Other Acid Fast Bacilli Smear - Pending 10/04/18 16:05 Wound - Other Mycobacterial Culture - Pending 10/04/18 16:05 Wound - Other Acid Fast Bacilli Smear - Pending 10/04/18 16:05 Wound - Other Mycobacterial Culture - Pending Lab - Chemistry Results 10/05/18 10/05/18 10/06/18 17:08 19:53 08:34 POC Glucose 240 H 182 H 104 10/06/18 10/06/18 10/06/18 11:37 17:08 18:17 POC Glucose 150 H 60 L 52 L 10/06/18 10/06/18 10/07/18 19:11 21:20 08:21 POC Glucose 115 H 147 H 112 H Imaging: ITS Impressions Venous Doppler Study 09/23/18 13:35 CONCLUSION: 1. Occlusive thrombus in the proximal and mid cephalic vein. 2. Deep venous system is otherwise patent. 3. Heterogeneous hypoechoic collection along the right shoulder which could represent a hematoma and/or seroma. Lumbar Spine MRI 09/25/18 00:00 CONCLUSION: 1. Findings are diagnostic of discitis osteomyelitis at L4-L5 with epidural abscess posterior to the L4 and L5 vertebral body. This epidural material along with facet hypertrophy moderately narrows the spinal canal at this level. There additionally is some perivertebral enhancing material likely representing small perivertebral abscess. It is challenging to compare to the prior study since it was significantly degraded by motion artifact. However, the findings are similar and do not appear improved. 2. There is mild edema within the L2 disc space and minimal endplate irregularity and enhancement of L2. These changes could be secondary to degenerative disc disease but cannot exclude early discitis. Suggest attention to this area at follow-up imaging. Chest X-Ray 09/30/18 14:47 CONCLUSION: No acute cardiopulmonary disease. Lumbar Spine CT 10/01/18 00:00 CONCLUSION: 1. Destructive changes again noted involving the endplates at the L4-5 level consistent with the known discitis/osteomyelitis. There is abnormal soft tissue density the anterior epidural space consistent with the known epidural abscess. This does not appear significantly changed from the MRI examination. There is moderate central canal stenosis at this level. 2. Mild to moderate central canal stenosis also noted at the L2-3 level secondary to disc osteophyte complexes and degenerative change involving the facets. 3. Stable mild anterior spondylolisthesis of L4 on L5. Wrist X-Ray 10/03/18 00:00 CONCLUSION: Osteoarthritic findings of the wrist. Mild distal radioulnar joint narrowing. Cyst or erosion at the lateral aspect of the lunate. Lumbar Spine X-Ray 10/05/18 00:00 CONCLUSION: Postsurgical changes are noted. Physical Exam: PHYSICAL EXAMINATION: GENERAL: No acute distress. HEENT: No icterus. Oropharynx: Moist mucosa. No visible lesions. No thrush. NECK: Supple without adenopathy or swelling. LUNGS: Clear breath sounds. HEART: Regular S1, S2, without murmurs, rubs or gallops. ABDOMEN: Bowel sounds present; flat, soft, nontender. EXTREMITIES: No clubbing or cyanosis or edema. SKIN: Maculopapular rash on the back and arms and abdomen. NEUROLOGIC: Nonfocal. PSYCHIATRIC: Calm. Anxious. Assessment and Plan - Plan ASSESSMENT AND PLAN: 1. Catheter related infection from PICC line. 2. Thrombus of the right upper extremity related to PICC line. 3. Known diskitis and osteomyelitis of the lumbar spine. Surgical culture has Portia. Previous empiric IV antibiotics with antibiotics directed at Mycobacterium Abscessus because that is the bacteria which was cultured from the left hand. He did not respond to vancomycin which was given previously. 4. 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 5. Chronic pain. Recommendations Continue cefoxitin IV Continue Biaxin until 10/25/2018. Continue amphotericin be for Portia albicans. Requested sensitivity information from microbiology. Monitor kidney function while on amphotericin B. Follow Intra-Op cultures as well as pathology
[2018-10-07] MEDS: dilTIAZem CD 240 MG Capsule PO SCH (17:11)
[2018-10-07] MEDS: Insulin NovoLOG Aspart Correctional Sugar Inj SQ SCH ×3 (17:17→22:04)
[2018-10-07] MEDS: AMPHOTERICIN B LIPOSOMAL IV.SIG SCH ×2 (18:44)
[2018-10-08] MEDS: Insulin NovoLOG Aspart Correctional Sugar Inj SQ SCH ×5 (02:15→21:03)
[2018-10-08] MEDS: Sodium Chloride 0.9% 2 ML Flush BID IV.FLUSH SCH ×3 (02:16→20:52)
[2018-10-08] MEDS: DEXTROSE 5% IV.SIG SCH ×10 (05:09→21:08)
[2018-10-08] MEDS: CEFOXITIN IV.SIG SCH ×8 (05:09→21:08)
[2018-10-08] MEDS: WATER IV.SIG SCH ×10 (05:09→21:08)
[2018-10-08] MEDS: Baclofen 10 MG Tablet PO SCH ×4 (05:09→21:04)
[2018-10-08 07:22] LABS: Baso % (Auto) 0.4 % (0.0-2.0); Eos # (Auto) 0.2 th/mm3 (0.0-0.4); Eos % (Auto) 1.8 % (0.0-4.0); Hematocrit 22.5 % (39.0-51.0); Hemoglobin 7.6 gm/dL (13.0-17.0); Lymph % (Auto) 8.4 % (9.0-44.0); Mean Corpuscular HGB Conc 33.8 % (32.0-36.0); Mean Corpuscular Hemoglobin 26.1 pg (27.0-34.0); Mean Corpuscular Volume 77.4 fL (80.0-100.0); Mean Platelet Volume 6.5 fL (7.0-11.0); Mono # (Auto) 0.7 th/mm3 (0.0-0.9); Mono % (Auto) 5.7 % (0.0-8.0); Neut # (Auto) 10.3 th/mm3 (1.8-7.7); Neut % (Auto) 83.7 % (16.0-70.0); Platelet Count 440 th/mm3 (150-450); Red Blood Count 2.91 mil/mm3 (4.50-5.90); Red Cell Distribution Width 17.2 % (11.6-17.2); White Blood Count 12.3 th/mm3 (4.0-11.0)
[2018-10-08 07:44] LABS: Alanine Aminotransferase 16 U/L (12-78); Albumin 1.9 g/dL (3.4-5.0); Alkaline Phosphatase 130 U/L (45-117); Anion Gap 11 meq/L (5-15); Aspartate Aminotransferase 15 U/L (15-37); Blood Urea Nitrogen 31 mg/dL (7-18); Calcium 8.1 mg/dL (8.5-10.1); Carbon Dioxide 26.1 meq/L (21.0-32.0); Chloride 102 meq/L (98-107); Glomerular Filtration Rate 86 mL/min (>89); Glucose,Random 209 mg/dL (74-106); Potassium 4.3 meq/L (3.5-5.1); Sodium 139 meq/L (136-145); Total Protein 6.3 g/dL (6.4-8.2)
[2018-10-08] MEDS: Meloxicam 7.5 MG Tablet PO SCH ×2 (07:59→17:10)
[2018-10-08] MEDS: Gabapentin 300 MG Capsule PO SCH ×3 (08:48→17:10)
[2018-10-08] MEDS: Ramipril 2.5 MG Capsule PO SCH (08:48)
[2018-10-08] MEDS: Senna/Docusate Sodium 8.6/50 MG Tablet PO SCH ×2 (08:48→20:52)
[2018-10-08] MEDS: Insulin Detemir Inj 1,000 UNIT/10 ML Vial SQ SCH ×2 (08:52→21:04)
[2018-10-08] MEDS: Furosemide 20 MG Tablet PO SCH ×2 (08:54→20:51)
--- NOTE | 2018-10-08 10:32 | P.PN ---
Subjective Interval history: Follow-up L4-L5 osteomyelitis October 07, 2018-patient seen and examined, complaining of back pain otherwise stable. Afebrile. No acute event overnight. Currently on amphotericin B as of October 06, 2018 October 08, 2018-patient seen and examined, complains of legs pain as well as back pain. Currently afebrile. H&H dropping. Physical Exam Vital signs: Vital Signs 10/07/18 12:00 10/07/18 16:00 10/07/18 20:00 Temperature 97.9 F 98.2 F 98.6 F Pulse Rate 76 68 83 Respiratory Rate 16 16 19 Blood Pressure 98/53 L 109/55 L 97/53 L Pulse Oximetry 98 96 96 10/08/18 00:00 10/08/18 04:00 10/08/18 08:00 Temperature 98.2 F 98.7 F 98.2 F Pulse Rate 72 88 76 Respiratory Rate 19 19 16 Blood Pressure 125/56 L 146/57 H 99/54 L Pulse Oximetry 94 L 94 L 97 Intake & Output 10/07/18 10/08/18 10/08/18 18:59 06:59 18:59 Intake Total 2700 / 2700 1100 / 1100 Output Total 1680 / 1680 1200 / 1200 Balance 1020 / 1020 -100 / -100 Weight 88.8 kg Intake: IV 300 / 300 100 / 100 Ofirmev Inj 1,000 mg In 100 ml 200 / 200 @ 400 mls/hr IV.SIG Q6HR ROBBIE Rx #:[id number] Mefoxin Inj 2 GM In D5W Inj 50 100 / 100 100 / 100 ML @ 200 mls/hr IV.SIG Q6H ROBBIE Rx#:[id number] Oral 2400 / 2400 1000 / 1000 Output: Urine 1650 / 1650 1200 / 1200 Wound Drainage 30 / 30 # 1 Lower Back PIA Drain 30 / 30 Other: # Bowel Movements 1 Narrative: GENERAL: NAD SKIN: Warm and dry. HEAD: Atraumatic. Normocephalic. EYES: Pupils equal and round. No scleral icterus. No injection or drainage. ENT: No nasal bleeding or discharge. Mucous membranes pink and moist. NECK: Trachea midline. No JVD. CARDIOVASCULAR: Regular rate and rhythm. RESPIRATORY: No accessory muscle use. Clear to auscultation. Breath sounds equal bilaterally. GASTROINTESTINAL: Abdomen soft, non-tender, nondistended. Hepatic and splenic margins not palpable. MUSCULOSKELETAL: Extremities without clubbing, cyanosis, or edema. No obvious deformities. NEUROLOGICAL: Awake and alert. No obvious cranial nerve deficits. Motor grossly within normal limits. Five out of 5 muscle strength in the arms and legs. Normal speech. PSYCHIATRIC: Appropriate mood and affect; insight and judgment normal. - Urinary Catheter Management Indwelling Urethral Catheter Cath placed during this visit: yes, but has since been removed by the nurse Reason for continuing: Decision to DC catheter Removal date: 10/05/18 Removal time: 09:30 Results - Labs CBC & Chem 7: 10/08/18 06:21 10/08/18 06:21 Laboratory Results - last 24 hr 10/07/18 10/07/18 10/08/18 16:09 21:48 06:21 WBC 12.3 H RBC 2.91 L Hgb 7.6 L Hct 22.5 L MCV 77.4 L MCH 26.1 L MCHC 33.8 RDW 17.2 Plt Count 440 MPV 6.5 L Neut % (Auto) 83.7 H Lymph % (Auto) 8.4 L [place] % (Auto) 5.7 Eos % (Auto) 1.8 Baso % (Auto) 0.4 Neut # (Auto) 10.3 H Lymph # (Auto) 1.0 [place] # (Auto) 0.7 Eos # (Auto) 0.2 Baso # (Auto) 0.0 WBC Differential . Differential Comment Auto diff final Sodium Potassium Chloride Carbon Dioxide Anion Gap BUN Creatinine Estimated GFR POC Glucose 159 H 356 H Random Glucose Calcium Total Bilirubin AST ALT Alkaline Phosphatase Total Protein Albumin 10/08/18 10/08/18 06:21 07:59 WBC RBC Hgb Hct MCV MCH MCHC RDW Plt Count MPV Neut % (Auto) Lymph % (Auto) [place] % (Auto) Eos % (Auto) Baso % (Auto) Neut # (Auto) Lymph # (Auto) [place] # (Auto) Eos # (Auto) Baso # (Auto) WBC Differential Differential Comment Sodium 139 Potassium 4.3 Chloride 102 Carbon Dioxide 26.1 Anion Gap 11 BUN 31 H Creatinine 0.91 Estimated GFR 86 L POC Glucose 274 H Random Glucose 209 H Calcium 8.1 L Total Bilirubin 0.2 AST 15 ALT 16 Alkaline Phosphatase 130 H Total Protein 6.3 L Albumin 1.9 L Microbiology 10/04/18 16:56 Tissue - Other Acid Fast Bacilli Smear - Final No acid fast bacilli seen 10/04/18 16:05 Wound - Other Acid Fast Bacilli Smear - Final No acid fast bacilli seen 10/04/18 16:05 Wound - Other Acid Fast Bacilli Smear - Final No acid fast bacilli seen 10/04/18 16:05 Wound - Other Gram Stain - Final 10/04/18 16:05 Wound - Other Wound Culture - Preliminary Portia albicans 10/04/18 16:56 Tissue - Other Gram Stain - Final 10/04/18 16:56 Tissue - Other Wound Culture - Final No growth in 72 hours (aerobically and anaerobically ) 10/04/18 16:05 Wound - Other Gram Stain - Final 10/04/18 16:05 Wound - Other Wound Culture - Final No growth in 72 hours (aerobically and anaerobically ) - Procedures L2-S1 posterior spinal fusion Pedicle screws fixation L2, L3, L4 6.5x50mm and s1 7.5x45, Rods [id number], Spinewave system Use of 3D fluoroscopy Assessment and Plan - Assessment (1) Osteomyelitis Code(s): M86.9 - Osteomyelitis, unspecified Status: Acute (2) Diabetes Code(s): E11.9 - Type 2 diabetes mellitus without complications Status: Chronic (3) Strain of lumbar region Code(s): S39.012A - Strain of muscle, fascia and tendon of lower back, initial encounter Status: Acute (4) Lumbar radiculopathy Code(s): M54.16 - Radiculopathy, lumbar region Status: Acute (5) Suppurative tenosynovitis of flexor tendon of left hand Code(s): M65.142 - Other infective (teno)synovitis, left hand Status: Chronic (6) Abscess of hand, left Code(s): L02.512 - Cutaneous abscess of left hand Status: Acute (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 L4-L5 discitis - Neurosurgery following, s/p L5/S1 discectomy and fusion on 10/04 -Intraoperative culture positive for C. Albican, patient currently on amphotericin B since 10/06/18 as well as Cefoxitin 2gm IV Q6H +Biaxin until per ID -Appreciate input from neurosurgery, pain management accordingly -TLSO brace when out of bed -PT to treat and eval 2. Chronic pain syndrome, opioid dependence - Required critical care to manage pain following surgery (received methadone IV , ketamine, and and versed on 10/04 to control pain) - Continue gabapentin 300 mg ITD - IV Tylenol scheduled for three days - Continue Mobic daily - Clonidine 0.2mg po q8h - Oxycodone 30mg po q4h prn and p.o. Dilaudid - Needs pain management on discharge 3. Tenosynovitis L hand - s/p exploration, wash, repair of wound dehiscence, left palm/ring finger on - s/p ABX as above 4. Atrial fibrillation - Currently rate-controlled - Restart Eliquis when cleared by neurosurgery - Continue Diltiazem 5. HTN - Continue ramipril and furosemide 6. Diabetes mellitus - A1c 7.8 - Continue Levemir - SSI with Accu-Cheks per protocol 7. Right shoulder pain-improved - No trauma, possibly related to sleep position - Pain control as above 8Anemia of acute blood loss -Monitor H&H and transfuse for hemoglobin less than 7 DVT prophylaxis: SCDs (1) Osteomyelitis Qualifiers: Osteomyelitis type: unspecified type Osteomyelitis location: unspecified site Qualified Code(s): M86.9 - Osteomyelitis, unspecified (3) Strain of lumbar region Qualifiers: Encounter type: initial encounter Qualified Code(s): S39.012A - Strain of muscle, fascia and tendon of lower back, initial encounter (8) Malfunction of peripheral inserted central catheter Qualifiers: Encounter type: initial encounter Qualified Code(s): T82.598A - Other mechanical complication of other cardiac and vascular devices and implants, initial encounter
--- NOTE | 2018-10-08 17:02 | P.PN ---
Subjective Interval history: no new complaints does not complain over the left wrist Physical Exam Vital signs: Vital Signs 10/07/18 20:00 10/08/18 00:00 10/08/18 04:00 Temperature 98.6 F 98.2 F 98.7 F Pulse Rate 83 72 88 Respiratory Rate 19 19 19 Blood Pressure 97/53 L 125/56 L 146/57 H Pulse Oximetry 96 94 L 94 L 10/08/18 08:00 10/08/18 12:00 Temperature 98.2 F 98.2 F Pulse Rate 76 68 Respiratory Rate 16 16 Blood Pressure 99/54 L 100/60 Pulse Oximetry 97 97 Intake & Output 10/07/18 10/08/18 10/08/18 18:59 06:59 18:59 Intake Total 2700 / 2700 1100 / 1100 50 / 50 Output Total 1680 / 1680 1200 / 1200 Balance 1020 / 1020 -100 / -100 50 / 50 Weight 88.8 kg Intake: IV 300 / 300 100 / 100 50 / 50 Ofirmev Inj 1,000 mg In 100 ml 200 / 200 @ 400 mls/hr IV.SIG Q6HR ROBBIE Rx #:[id number] Mefoxin Inj 2 GM In D5W Inj 50 100 / 100 100 / 100 50 / 50 ML @ 200 mls/hr IV.SIG Q6H ROBBIE Rx#:[id number] Oral 2400 / 2400 1000 / 1000 Output: Urine 1650 / 1650 1200 / 1200 Wound Drainage 30 / 30 # 1 Lower Back PIA Drain 30 / 30 Other: # Bowel Movements 1 Narrative: left hand/ring finger: dressing in place sutures and sterri strips in place no drainage flexion deformity of the ring finger at PIP Joint noted - Urinary Catheter Management Indwelling Urethral Catheter Cath placed during this visit: yes, but has since been removed by the nurse Reason for continuing: Decision to DC catheter Removal date: 10/05/18 Removal time: 09:30 Results - Labs CBC & Chem 7: 10/08/18 06:21 10/08/18 06:21 Laboratory Results - last 24 hr 10/07/18 10/08/18 10/08/18 21:48 06:21 06:21 WBC 12.3 H RBC 2.91 L Hgb 7.6 L Hct 22.5 L MCV 77.4 L MCH 26.1 L MCHC 33.8 RDW 17.2 Plt Count 440 MPV 6.5 L Neut % (Auto) 83.7 H Lymph % (Auto) 8.4 L [place] % (Auto) 5.7 Eos % (Auto) 1.8 Baso % (Auto) 0.4 Neut # (Auto) 10.3 H Lymph # (Auto) 1.0 [place] # (Auto) 0.7 Eos # (Auto) 0.2 Baso # (Auto) 0.0 WBC Differential . Differential Comment Auto diff final Sodium 139 Potassium 4.3 Chloride 102 Carbon Dioxide 26.1 Anion Gap 11 BUN 31 H Creatinine 0.91 Estimated GFR 86 L POC Glucose 356 H Random Glucose 209 H Calcium 8.1 L Total Bilirubin 0.2 AST 15 ALT 16 Alkaline Phosphatase 130 H Total Protein 6.3 L Albumin 1.9 L 10/08/18 07:59 WBC RBC Hgb Hct MCV MCH MCHC RDW Plt Count MPV Neut % (Auto) Lymph % (Auto) [place] % (Auto) Eos % (Auto) Baso % (Auto) Neut # (Auto) Lymph # (Auto) [place] # (Auto) Eos # (Auto) Baso # (Auto) WBC Differential Differential Comment Sodium Potassium Chloride Carbon Dioxide Anion Gap BUN Creatinine Estimated GFR POC Glucose 274 H Random Glucose Calcium Total Bilirubin AST ALT Alkaline Phosphatase Total Protein Albumin Microbiology 10/04/18 16:56 Tissue - Other Acid Fast Bacilli Smear - Final No acid fast bacilli seen 10/04/18 16:05 Wound - Other Acid Fast Bacilli Smear - Final No acid fast bacilli seen 10/04/18 16:05 Wound - Other Acid Fast Bacilli Smear - Final No acid fast bacilli seen 10/04/18 16:05 Wound - Other Gram Stain - Final 10/04/18 16:05 Wound - Other Wound Culture - Preliminary Portia albicans - Imaging x-rays of the left wrist: erosion/cyst over the radial aspect of the lunate at articulation with scaphoid diffuse arterial calcification - Procedures L2-S1 posterior spinal fusion Pedicle screws fixation L2, L3, L4 6.5x50mm and s1 7.5x45, Rods [id number], Spinewave system Use of 3D fluoroscopy Assessment and Plan - Assessment (1) Suppurative tenosynovitis of flexor tendon of left hand Code(s): M65.142 - Other infective (teno)synovitis, left hand Status: Chronic - Plan 58 year old male s/p closure of wound dehiscence left hand/ring finger finger with left wrist pain Plan: surrounding skin is cleaned with alcohol wipes sutures are removed sterri stirps left intact over the region dry dressing applied hand surgery will follow.
[2018-10-08] MEDS: dilTIAZem CD 240 MG Capsule PO SCH (17:09)
--- NOTE | 2018-10-08 17:18 | P.PNNS ---
Subjective Interval history: nursing report rosmery dressing nonfunctioning Physical Exam Vital signs: Vital Signs 10/07/18 20:00 10/08/18 00:00 10/08/18 04:00 Temperature 98.6 F 98.2 F 98.7 F Pulse Rate 83 72 88 Respiratory Rate 19 19 19 Blood Pressure 97/53 L 125/56 L 146/57 H Pulse Oximetry 96 94 L 94 L 10/08/18 08:00 10/08/18 12:00 Temperature 98.2 F 98.2 F Pulse Rate 76 68 Respiratory Rate 16 16 Blood Pressure 99/54 L 100/60 Pulse Oximetry 97 97 Intake & Output 10/07/18 10/08/18 10/08/18 18:59 06:59 18:59 Intake Total 2700 / 2700 1100 / 1100 150 / 150 Output Total 1680 / 1680 1200 / 1200 Balance 1020 / 1020 -100 / -100 150 / 150 Weight 88.8 kg Intake: IV 300 / 300 100 / 100 150 / 150 Ofirmev Inj 1,000 mg In 100 ml 200 / 200 100 / 100 @ 400 mls/hr IV.SIG Q6HR ROBBIE Rx #:[id number] Mefoxin Inj 2 GM In D5W Inj 50 100 / 100 100 / 100 50 / 50 ML @ 200 mls/hr IV.SIG Q6H ROBBIE Rx#:[id number] Oral 2400 / 2400 1000 / 1000 Output: Urine 1650 / 1650 1200 / 1200 Wound Drainage 30 / 30 # 1 Lower Back PIA Drain 30 / 30 Other: # Bowel Movements 1 Narrative: rosmery dressing removed, was damp no drainage from wound but felt moist PIA drain with increased drainage today, serosanguineous diffuse maculopapular rash in his back - Urinary Catheter Management Indwelling Urethral Catheter Cath placed during this visit: yes, but has since been removed by the nurse Reason for continuing: Decision to DC catheter Removal date: 10/05/18 Removal time: 09:30 Assessment and Plan - Plan MRI: 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 Plan: 10/01/18: Given the persistent symptoms, it is reasonable to stabilize his spine with instrumentation from L2-S1 and simultaneously do a laminectomy at L4/5 to get cultures. Patient understands the risks of surgery including paralysis and sepsis, and wishes to proceed. I discussed with ID and the medicine team. There is risk of instrumentation failure down the line due to persistent infection and his history of susceptibility to infections. However, conservative measures do not look like they are working with IV abx and bracing does not seem to be helping. We will proceed tomorrow with surgery, monitoring , instrumentation, concentric C. 10/02/18: Surgery today postpone as patient got one dose of eliquis on 10/01 in the morning. Recommendations to wait 48 hours given heavy risk of bleeding and already low preop H/H of 8.3/24. Type and Cross to be performed for full antibody panel, plan [place] case at present. Discussed with patient, anesthesiologist and primary team Adela CRAIG. 10/03/18: surgery with Dr. Groves planned for tomorrow. NPO tonight at midnight. 10/04/18: surgery tentatively 1:30 today 10/05/18: Follow cultures from OR -- ID. Mobilize (ok to have brace off for short distances, would prefer to use brace when walking long distance). D/c maki. Pain control and ok for transfer back to primary service. Continue to monitor drain output. L-spine xrays today. 10/06/18: Xrays look good. OR cultures -- 1 positive for Portia, rest pending. Mobilize. D/c sales representative [employer] tomorrow per primary team. Transferred to floor. Brace when walking long distances-- PT. 10/07/18: cont PIA draining for today given his infection. f/u cultures, cont abx therapy per ID. Brace when ambulating, cont PT 10/08: keep PIA in today, monitor output and reassess tomorrow. ROSMERY dressing removed, replaced with Optifoam dressing to be changed daily. dw nursing, will return tomorrow
[2018-10-08] MEDS: AMPHOTERICIN B LIPOSOMAL IV.SIG SCH ×2 (17:48)
[2018-10-09] MEDS: CEFOXITIN IV.SIG SCH ×4 (04:01→10:03)
[2018-10-09] MEDS: DEXTROSE 5% IV.SIG SCH ×6 (04:01→18:24)
[2018-10-09] MEDS: WATER IV.SIG SCH ×6 (04:01→18:24)
[2018-10-09] MEDS: Meloxicam 7.5 MG Tablet PO SCH ×3 (05:03→18:02)
[2018-10-09] MEDS: Baclofen 10 MG Tablet PO SCH ×4 (05:03→21:01)
[2018-10-09 07:47] LABS: Baso # (Auto) 0.1 th/mm3 (0.0-0.2); Baso % (Auto) 0.9 % (0.0-2.0); Eos # (Auto) 0.3 th/mm3 (0.0-0.4); Eos % (Auto) 2.2 % (0.0-4.0); Lymph % (Auto) 8.7 % (9.0-44.0); Mean Corpuscular HGB Conc 31.8 % (32.0-36.0); Mean Corpuscular Hemoglobin 25.3 pg (27.0-34.0); Mean Corpuscular Volume 79.5 fL (80.0-100.0); Mean Platelet Volume 6.5 fL (7.0-11.0); Mono # (Auto) 0.7 th/mm3 (0.0-0.9); Mono % (Auto) 6.3 % (0.0-8.0); Neut # (Auto) 9.3 th/mm3 (1.8-7.7); Neut % (Auto) 81.9 % (16.0-70.0); Platelet Count 393 th/mm3 (150-450); Red Blood Count 2.76 mil/mm3 (4.50-5.90); Red Cell Distribution Width 16.9 % (11.6-17.2); White Blood Count 11.4 th/mm3 (4.0-11.0)
[2018-10-09 08:22] LABS: Anion Gap 7 meq/L (5-15); Aspartate Aminotransferase 13 U/L (15-37); Calcium 8.1 mg/dL (8.5-10.1); Carbon Dioxide 26.5 meq/L (21.0-32.0); Chloride 104 meq/L (98-107); Glomerular Filtration Rate 80 mL/min (>89); Potassium 4.6 meq/L (3.5-5.1); Sodium 137 meq/L (136-145)
[2018-10-09 08:26] LABS: Alanine Aminotransferase 18 U/L (12-78); Albumin 1.9 g/dL (3.4-5.0); Alkaline Phosphatase 139 U/L (45-117); Blood Urea Nitrogen 35 mg/dL (7-18); Glucose,Random 211 mg/dL (74-106); Total Protein 6.1 g/dL (6.4-8.2)
[2018-10-09 08:39] LABS: Eosinophils 6 % (0-4); Lymphocytes 9 % (9-44); Monocytes 2 % (0-8); Platelet Estimate Normal (Normal); Platelet Morphology Normal (Normal)
--- NOTE | 2018-10-09 09:45 | P.PNNS ---
Subjective Interval history: talking on his cell phone, reports he is "ok". states he has been up with therapy. Physical Exam Vital signs: Vital Signs 10/08/18 12:00 10/08/18 20:00 10/09/18 00:00 Temperature 98.2 F 98.0 F 97.9 F Pulse Rate 68 87 83 Respiratory Rate 16 17 18 Blood Pressure 100/60 106/58 L 110/55 L Pulse Oximetry 97 95 96 10/09/18 04:00 10/09/18 08:00 Temperature 98.5 F 98.5 F Pulse Rate 82 86 Respiratory Rate 17 17 Blood Pressure 121/56 L 160/61 H Pulse Oximetry 94 L 98 Intake & Output 10/08/18 10/09/18 10/09/18 18:59 06:59 18:59 Intake Total 2650 / 2650 1340 / 1340 Output Total 1520 / 1520 550 / 550 Balance 1130 / 1130 790 / 790 Weight 88.8 kg Intake: IV 150 / 150 840 / 840 Ofirmev Inj 1,000 mg In 100 ml 100 / 100 300 / 300 @ 400 mls/hr IV.SIG Q6HR ROBBIE Rx #:[id number] Ambisome Inj 435 MG In D5W Inj 390 / 390 390 ML @ 250 mls/hr IV.SIG Q24H ROBBIE Rx#:[id number] Mefoxin Inj 2 GM In D5W Inj 50 50 / 50 150 / 150 ML @ 200 mls/hr IV.SIG Q6H ROBBIE Rx#:[id number] Oral 2500 / 2500 500 / 500 Output: Urine 1500 / 1500 500 / 500 Wound Drainage 20 / 20 50 / 50 # 1 Lower Back PIA Drain 20 / 20 50 / 50 Other: # Voids 2 # Bowel Movements 2 - Urinary Catheter Management Indwelling Urethral Catheter Cath placed during this visit: yes, but has since been removed by the nurse Reason for continuing: Decision to DC catheter Removal date: 10/05/18 Removal time: 09:30 Assessment and Plan - Plan MRI: 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 Plan: 10/01/18: Given the persistent symptoms, it is reasonable to stabilize his spine with instrumentation from L2-S1 and simultaneously do a laminectomy at L4/5 to get cultures. Patient understands the risks of surgery including paralysis and sepsis, and wishes to proceed. I discussed with ID and the medicine team. There is risk of instrumentation failure down the line due to persistent infection and his history of susceptibility to infections. However, conservative measures do not look like they are working with IV abx and bracing does not seem to be helping. We will proceed tomorrow with surgery, monitoring , instrumentation, concentric C. 10/02/18: Surgery today postpone as patient got one dose of eliquis on 10/01 in the morning. Recommendations to wait 48 hours given heavy risk of bleeding and already low preop H/H of 8.3/24. Type and Cross to be performed for full antibody panel, plan Sunday [place] case at present. Discussed with patient, anesthesiologist and primary team Adela CRAIG. 10/03/18: surgery with Dr. Groves planned for tomorrow. NPO tonight at midnight. 10/04/18: surgery tentatively 1:30 today 10/05/18: Follow cultures from OR -- ID. Mobilize (ok to have brace off for short distances, would prefer to use brace when walking long distance). D/c maki. Pain control and ok for transfer back to primary service. Continue to monitor drain output. L-spine xrays today. 10/06/18: Xrays look good. OR cultures -- 1 positive for Portia, rest pending. Mobilize. D/c social media assistant tomorrow per primary team. Transferred to floor. Brace when walking long distances-- PT. 10/07/18: cont PIA draining for today given his infection. f/u cultures, cont abx therapy per ID. Brace when ambulating, cont PT 10/08: keep PIA in today, monitor output and reassess tomorrow. ROSMERY dressing removed, replaced with Optifoam dressing to be changed daily. dw nursing, will return tomorrow 10/09: clear to remove PIA drain today. continue bid [place] changes and wound monitoring. dilshad to be removed 10/16/18. cont therapy, brace when OOB. ok to dc to SNF/rehab from [facility] standpoint once abx tx arranged. katie Martini ok for patient to resume his Eloquis.
[2018-10-09] MEDS: Ramipril 2.5 MG Capsule PO SCH (10:02)
[2018-10-09] MEDS: Senna/Docusate Sodium 8.6/50 MG Tablet PO SCH ×2 (10:02→20:35)
[2018-10-09] MEDS: Sodium Chloride 0.9% 2 ML Flush BID IV.FLUSH SCH ×2 (10:03→20:35)
[2018-10-09] MEDS: Gabapentin 300 MG Capsule PO SCH ×5 (10:03→18:02)
[2018-10-09] MEDS: Furosemide 20 MG Tablet PO SCH ×2 (10:03→20:35)
[2018-10-09] MEDS: Insulin NovoLOG Aspart Correctional Sugar Inj SQ SCH ×4 (10:04→20:41)
[2018-10-09] MEDS: Insulin Detemir Inj 1,000 UNIT/10 ML Vial SQ SCH ×2 (10:04→20:41)
--- NOTE | 2018-10-09 12:39 | P.PN ---
Subjective Interval history: Follow-up L4-L5 osteomyelitis October 09, 2018-patient seen and examined no change, afebrile, remains stable. Physical Exam Vital signs: Vital Signs 10/08/18 20:00 10/09/18 00:00 10/09/18 04:00 Temperature 98.0 F 97.9 F 98.5 F Pulse Rate 87 83 82 Respiratory Rate 17 18 17 Blood Pressure 106/58 L 110/55 L 121/56 L Pulse Oximetry 95 96 94 L 10/09/18 08:00 Temperature 98.5 F Pulse Rate 86 Respiratory Rate 17 Blood Pressure 160/61 H Pulse Oximetry 98 Intake & Output 10/08/18 10/09/18 10/09/18 18:59 06:59 18:59 Intake Total 2650 / 2650 1340 / 1340 Output Total 1520 / 1520 550 / 550 Balance 1130 / 1130 790 / 790 Weight 88.8 kg Intake: IV 150 / 150 840 / 840 Ofirmev Inj 1,000 mg In 100 ml 100 / 100 300 / 300 @ 400 mls/hr IV.SIG Q6HR ROBBIE Rx #:[id number] Ambisome Inj 435 MG In D5W Inj 390 / 390 390 ML @ 250 mls/hr IV.SIG Q24H ROBBIE Rx#:[id number] Mefoxin Inj 2 GM In D5W Inj 50 50 / 50 150 / 150 ML @ 200 mls/hr IV.SIG Q6H ROBBIE Rx#:[id number] Oral 2500 / 2500 500 / 500 Output: Urine 1500 / 1500 500 / 500 Wound Drainage 20 / 20 50 / 50 # 1 Lower Back PIA Drain 20 / 20 50 / 50 Other: # Voids 2 Date of Last Bowel Movement 10/08/18 # Bowel Movements 2 Narrative: GENERAL: NAD SKIN: Warm and dry. HEAD: Normocephalic. EYES: No scleral icterus. No injection or drainage. NECK: Supple, trachea midline. No JVD or lymphadenopathy. CARDIOVASCULAR: Regular rate and rhythm without murmurs, gallops, or rubs. RESPIRATORY: Breath sounds equal bilaterally. No accessory muscle use. GASTROINTESTINAL: Abdomen soft, non-tender, nondistended. MUSCULOSKELETAL: No cyanosis, or edema. BACK: Nontender without obvious deformity. No CVA tenderness. - Urinary Catheter Management Indwelling Urethral Catheter Cath placed during this visit: yes, but has since been removed by the nurse Reason for continuing: Decision to DC catheter Removal date: 10/05/18 Removal time: 09:30 Results - Labs CBC & Chem 7: 10/09/18 07:21 10/09/18 07:21 Laboratory Results - last 24 hr 10/08/18 10/08/18 10/09/18 16:51 20:55 07:21 WBC 11.4 H RBC 2.76 L Hgb 7.0 L Hct 22.0 L MCV 79.5 L MCH 25.3 L MCHC 31.8 L RDW 16.9 Plt Count 393 MPV 6.5 L Prelim Diff (Auto) Slide review pending Neut % (Auto) 81.9 H Lymph % (Auto) 8.7 L [place] % (Auto) 6.3 Eos % (Auto) 2.2 Baso % (Auto) 0.9 Neut # (Auto) 9.3 H Lymph # (Auto) 1.0 [place] # (Auto) 0.7 Eos # (Auto) 0.3 Baso # (Auto) 0.1 WBC Differential Manual diff final Seg Neuts % (Manual) 79 H Band Neuts % (Manual) 4 Lymphocytes % (Manual) 9 Monocytes % (Manual) 2 Eosinophils % (Manual) 6 H Abs Neuts (Manual) 9.5 H Differential Comment . Platelet Estimate Normal Platelet Morphology Normal Sodium Potassium Chloride Carbon Dioxide Anion Gap BUN Creatinine Estimated GFR POC Glucose 262 H 303 H Random Glucose Calcium Total Bilirubin AST ALT Alkaline Phosphatase Total Protein Albumin 10/09/18 10/09/18 10/09/18 07:21 07:54 12:15 WBC RBC Hgb Hct MCV MCH MCHC RDW Plt Count MPV Prelim Diff (Auto) Neut % (Auto) Lymph % (Auto) Loving % (Auto) Eos % (Auto) Baso % (Auto) Neut # (Auto) Lymph # (Auto) L[place] # (Auto) Eos # (Auto) Baso # (Auto) WBC Differential Seg Neuts % (Manual) Band Neuts % (Manual) Lymphocytes % (Manual) Monocytes % (Manual) Eosinophils % (Manual) Abs Neuts (Manual) Differential Comment Platelet Estimate Platelet Morphology Sodium 137 Potassium 4.6 Chloride 104 Carbon Dioxide 26.5 Anion Gap 7 BUN 35 H Creatinine 0.96 Estimated GFR 80 L POC Glucose 234 H 217 H Random Glucose 211 H Calcium 8.1 L Total Bilirubin 0.1 L AST 13 L ALT 18 Alkaline Phosphatase 139 H Total Protein 6.1 L Albumin 1.9 L - Procedures L2-S1 posterior spinal fusion Pedicle screws fixation L2, L3, L4 6.5x50mm and s1 7.5x45, Rods [id number], Spinewave system Use of 3D fluoroscopy Assessment and Plan - Assessment (1) Osteomyelitis Code(s): M86.9 - Osteomyelitis, unspecified Status: Acute (2) Diabetes Code(s): E11.9 - Type 2 diabetes mellitus without complications Status: Chronic (3) Strain of lumbar region Code(s): S39.012A - Strain of muscle, fascia and tendon of lower back, initial encounter Status: Acute (4) Lumbar radiculopathy Code(s): M54.16 - Radiculopathy, lumbar region Status: Acute (5) Suppurative tenosynovitis of flexor tendon of left hand Code(s): M65.142 - Other infective (teno)synovitis, left hand Status: Chronic (6) Abscess of hand, left Code(s): L02.512 - Cutaneous abscess of left hand Status: Acute (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 L4-L5 discitis - Neurosurgery following, s/p L5/S1 discectomy and fusion on 10/04 -Intraoperative culture positive for C. Albican, patient currently on amphotericin B since 10/06/18 as well as Cefoxitin 2gm IV Q6H +Biaxin until per ID -Appreciate input from neurosurgery, who has cleared patient for discharge. PIA drain to be removed today -TLSO brace when out of bed -PT to treat and eval 2. Chronic pain syndrome, opioid dependence - Required critical care to manage pain following surgery (received methadone IV , ketamine, and and versed on 10/04 to control pain) - Continue gabapentin 300 mg TID - Continue Mobic daily - Clonidine 0.2mg po q8h - Oxycodone 30mg po q4h prn and p.o. Dilaudid - Needs pain management on discharge 3. Tenosynovitis L hand - s/p exploration, wash, repair of wound dehiscence, left palm/ring finger on - s/p ABX as above 4. Atrial fibrillation - Currently rate-controlled - Restart Eliquis when cleared by neurosurgery - Continue Diltiazem 5. HTN - Continue ramipril and furosemide 6. Diabetes mellitus - A1c 7.8 - Continue Levemir - SSI with Accu-Cheks per protocol 7. Right shoulder pain-improved - No trauma, possibly related to sleep position - Pain control as above 8Anemia of acute blood loss -Monitor H&H and transfuse for hemoglobin less than 7 DVT prophylaxis: SCDs (1) Osteomyelitis Qualifiers: Osteomyelitis type: unspecified type Osteomyelitis location: unspecified site Qualified Code(s): M86.9 - Osteomyelitis, unspecified (3) Strain of lumbar region Qualifiers: Encounter type: initial encounter Qualified Code(s): S39.012A - Strain of muscle, fascia and tendon of lower back, initial encounter (8) Malfunction of peripheral inserted central catheter Qualifiers: Encounter type: initial encounter Qualified Code(s): T82.598A - Other mechanical complication of other cardiac and vascular devices and implants, initial encounter
--- NOTE | 2018-10-09 14:46 | P.PNID ---
Subjective Remarks: Patient continues to have back pain. Moving left leg more. Afebrile. Has some itching of the skin. PIA drain in the back continues to have serosanguinous drainage. maculopapular rash on the back. Sensitivity of the Portia wound culture pending. Antibiotics: Cefoxitin IV Biaxin Amphotericin B Lines: Line sites with no evidence of infection. 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 Allergies/Adverse Reactions: Allergies No Known Drug Allergies Allergy (Verified 08/06/18 15:59) none *MDRO Multi-Drug Resistant Organism Adverse Reaction (Unknown, Uncoded 06/16/17 16:34) MRSA MRSA (foot wound) - 02/12/15, 11/12/16, 03/29/17; (toe) - 03/2016 Objective Vital Signs 10/08/18 20:00 10/09/18 00:00 10/09/18 04:00 Temperature 98.0 F 97.9 F 98.5 F Pulse Rate 87 83 82 Respiratory Rate 17 18 17 Blood Pressure 106/58 L 110/55 L 121/56 L Pulse Oximetry 95 96 94 L 10/09/18 08:00 Temperature 98.5 F Pulse Rate 86 Respiratory Rate 17 Blood Pressure 160/61 H Pulse Oximetry 98 Intake & Output 10/08/18 10/09/18 10/09/18 18:59 06:59 18:59 Intake Total 2650 / 2650 1340 / 1340 50 / 50 Output Total 1520 / 1520 550 / 550 Balance 1130 / 1130 790 / 790 50 / 50 Weight 88.8 kg Intake: IV 150 / 150 840 / 840 50 / 50 Ofirmev Inj 1,000 mg In 100 ml 100 / 100 300 / 300 @ 400 mls/hr IV.SIG Q6HR ROBBIE Rx #:[id number] Ambisome Inj 435 MG In D5W Inj 390 / 390 390 ML @ 250 mls/hr IV.SIG Q24H ROBBIE Rx#:[id number] Mefoxin Inj 2 GM In D5W Inj 50 50 / 50 150 / 150 50 / 50 ML @ 200 mls/hr IV.SIG Q6H ROBBIE Rx#:[id number] Oral 2500 / 2500 500 / 500 Output: Urine 1500 / 1500 500 / 500 Wound Drainage 50 / 50 # 1 Lower Back PIA Drain 50 / 50 Other: # Voids 2 Date of Last Bowel Movement 10/08/18 # Bowel Movements 2 10/04/18 16:56 Tissue - Other Acid Fast Bacilli Smear - Final No acid fast bacilli seen 10/04/18 16:56 Tissue - Other Mycobacterial Culture - Pending 10/04/18 16:05 Wound - Other Acid Fast Bacilli Smear - Final No acid fast bacilli seen 10/04/18 16:05 Wound - Other Mycobacterial Culture - Pending 10/04/18 16:05 Wound - Other Acid Fast Bacilli Smear - Final No acid fast bacilli seen 10/04/18 16:05 Wound - Other Mycobacterial Culture - Pending 10/04/18 16:05 Other - Pending 10/04/18 16:05 Wound - Other Gram Stain - Final 10/04/18 16:05 Wound - Other Wound Culture - Preliminary Portia albicans 10/04/18 16:56 Tissue - Other Gram Stain - Final 10/04/18 16:56 Tissue - Other Wound Culture - Final No growth in 72 hours (aerobically and anaerobically ) 10/04/18 16:05 Wound - Other Gram Stain - Final 10/04/18 16:05 Wound - Other Wound Culture - Final No growth in 72 hours (aerobically and anaerobically ) Lab - Hematology Results 10/08/18 10/09/18 06:21 07:21 WBC 12.3 H 11.4 H RBC 2.91 L 2.76 L Hgb 7.6 L 7.0 L Hct 22.5 L 22.0 L MCV 77.4 L 79.5 L MCH 26.1 L 25.3 L MCHC 33.8 31.8 L RDW 17.2 16.9 Plt Count 440 393 MPV 6.5 L 6.5 L Prelim Diff (Auto) Slide review pending Neut % (Auto) 83.7 H 81.9 H Lymph % (Auto) 8.4 L 8.7 L [place] % (Auto) 5.7 6.3 Eos % (Auto) 1.8 2.2 Baso % (Auto) 0.4 0.9 Neut # (Auto) 10.3 H 9.3 H Lymph # (Auto) 1.0 1.0 [place] # (Auto) 0.7 0.7 Eos # (Auto) 0.2 0.3 Baso # (Auto) 0.0 0.1 WBC Differential . Manual diff final Seg Neuts % (Manual) 79 H Band Neuts % (Manual) 4 Lymphocytes % (Manual) 9 Monocytes % (Manual) 2 Eosinophils % (Manual) 6 H Abs Neuts (Manual) 9.5 H Differential Comment Auto diff final . Platelet Estimate Normal Platelet Morphology Normal Lab - Chemistry Results 10/07/18 10/07/18 10/08/18 16:09 21:48 06:21 Sodium 139 Potassium 4.3 Chloride 102 Carbon Dioxide 26.1 Anion Gap 11 BUN 31 H Creatinine 0.91 Estimated GFR 86 L POC Glucose 159 H 356 H Random Glucose 209 H Calcium 8.1 L Total Bilirubin 0.2 AST 15 ALT 16 Alkaline Phosphatase 130 H Total Protein 6.3 L Albumin 1.9 L 10/08/18 10/08/18 10/08/18 07:59 16:51 20:55 Sodium Potassium Chloride Carbon Dioxide Anion Gap BUN Creatinine Estimated GFR POC Glucose 274 H 262 H 303 H Random Glucose Calcium Total Bilirubin AST ALT Alkaline Phosphatase Total Protein Albumin 10/09/18 10/09/18 10/09/18 07:21 07:54 12:15 Sodium 137 Potassium 4.6 Chloride 104 Carbon Dioxide 26.5 Anion Gap 7 BUN 35 H Creatinine 0.96 Estimated GFR 80 L POC Glucose 234 H 217 H Random Glucose 211 H Calcium 8.1 L Total Bilirubin 0.1 L AST 13 L ALT 18 Alkaline Phosphatase 139 H Total Protein 6.1 L Albumin 1.9 L Imaging: ITS Impressions Venous Doppler Study 09/23/18 13:35 CONCLUSION: 1. Occlusive thrombus in the proximal and mid cephalic vein. 2. Deep venous system is otherwise patent. 3. Heterogeneous hypoechoic collection along the right shoulder which could represent a hematoma and/or seroma. Lumbar Spine MRI 09/25/18 00:00 CONCLUSION: 1. Findings are diagnostic of discitis osteomyelitis at L4-L5 with epidural abscess posterior to the L4 and L5 vertebral body. This epidural material along with facet hypertrophy moderately narrows the spinal canal at this level. There additionally is some perivertebral enhancing material likely representing small perivertebral abscess. It is challenging to compare to the prior study since it was significantly degraded by motion artifact. However, the findings are similar and do not appear improved. 2. There is mild edema within the L2 disc space and minimal endplate irregularity and enhancement of L2. These changes could be secondary to degenerative disc disease but cannot exclude early discitis. Suggest attention to this area at follow-up imaging. Chest X-Ray 09/30/18 14:47 CONCLUSION: No acute cardiopulmonary disease. Lumbar Spine CT 10/01/18 00:00 CONCLUSION: 1. Destructive changes again noted involving the endplates at the L4-5 level consistent with the known discitis/osteomyelitis. There is abnormal soft tissue density the anterior epidural space consistent with the known epidural abscess. This does not appear significantly changed from the MRI examination. There is moderate central canal stenosis at this level. 2. Mild to moderate central canal stenosis also noted at the L2-3 level secondary to disc osteophyte complexes and degenerative change involving the facets. 3. Stable mild anterior spondylolisthesis of L4 on L5. Wrist X-Ray 10/03/18 00:00 CONCLUSION: Osteoarthritic findings of the wrist. Mild distal radioulnar joint narrowing. Cyst or erosion at the lateral aspect of the lunate. Lumbar Spine X-Ray 10/05/18 00:00 CONCLUSION: Postsurgical changes are noted. Physical Exam: PHYSICAL EXAMINATION: GENERAL: No acute distress. HEENT: Head atraumatic. Extraocular movements grossly intact. Pupils reactive to light, without icterus. Oropharynx: Moist mucosa. No visible lesions. No thrush. NECK: Supple without adenopathy or swelling. LUNGS: Clear breath sounds. HEART: Regular S1, S2, without murmurs, rubs or gallops. ABDOMEN: Bowel sounds present; flat, soft, no tenderness appreciated. BACK: PIA bulb has drainage. EXTREMITIES: No clubbing or cyanosis or edema. SKIN: Maculopapular rash persist on the back. NEUROLOGIC: Nonfocal. PSYCHIATRIC: Calm. Assessment and Plan - Plan ASSESSMENT AND PLAN: 1. Catheter related infection from PICC line. 2. Thrombus of the right upper extremity related to PICC line. 3. Diskitis and osteomyelitis of the lumbar spine. Operative culture has Portia. Sensitivity is pending. 4. 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 has been on antibiotics 5. Chronic pain. 6. Rash. likely from antibiotics. RECOMMENDATIONS: 1. Continue Amphotericin B. Day # 4. Anticipate 8 - 12 weks of antifungal for discitis / osteomyelitis due to Portia. 2. Repeat sed rate. 3. Stop the Cefoxitin. It may be the cause of the rash. 4. Continue Biaxin until 10/25/2018.
[2018-10-09] MEDS: dilTIAZem CD 240 MG Capsule PO SCH (16:57)
[2018-10-09] MEDS: AMPHOTERICIN B LIPOSOMAL IV.SIG SCH ×2 (18:24)
[2018-10-10] MEDS: Baclofen 10 MG Tablet PO SCH ×3 (05:48→22:19)
[2018-10-10] MEDS: Meloxicam 7.5 MG Tablet PO SCH ×2 (05:49→17:51)
--- NOTE | 2018-10-10 09:23 | P.PN ---
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 anticipated 8 to 12 weeks of antifungal for discitis , osteomyelitis due to Portia, stopped Cefoxitin, and continue Biaxin until 10/25/18. 10/10: Stable in his bedroom, asking for IV pain medicine Dilaudid, he has already this medicine on board, he was clear for discharge by Neurosurgery and awaiting final by ID specialist. No nausea vomit or diarrhea. Physical Exam Vital signs: Vital Signs 10/09/18 16:00 10/09/18 20:00 10/09/18 21:31 Temperature 98.3 F 98.6 F Pulse Rate 87 87 Respiratory Rate 16 20 17 Blood Pressure 108/53 L 169/83 H Pulse Oximetry 98 93 L 10/10/18 00:00 10/10/18 01:45 10/10/18 05:36 Temperature 98.2 F Pulse Rate 82 Respiratory Rate 19 17 16 Blood Pressure 143/57 H Pulse Oximetry 95 10/10/18 08:00 Temperature 98.2 F Pulse Rate 69 Respiratory Rate 17 Blood Pressure 105/55 L Pulse Oximetry 95 Intake & Output 10/09/18 10/10/18 10/10/18 18:59 06:59 18:59 Intake Total 50 / 50 1390 / 1390 Output Total 1135 / 1135 Balance 30 30 255 / 255 Weight 88.8 kg Intake: IV 50 / 50 390 / 390 Ambisome Inj 435 MG In D5W Inj 390 / 390 390 ML @ 250 mls/hr IV.SIG Q24H ROBBIE Rx#:[id number] Mefoxin Inj 2 GM In D5W Inj 50 50 / 50 ML @ 200 mls/hr IV.SIG Q6H ROBBIE Rx#:[id number] Oral 1000 / 1000 Output: Urine 1100 / 1100 Wound Drainage 35 / 35 # 1 Lower Back PIA Drain Other: Date of Last Bowel Movement 10/08/18 Narrative: GENERAL: NAD SKIN: Warm and dry. PIA in place and draining. HEAD: Normocephalic. EYES: No scleral icterus. No injection or drainage. NECK: Supple, trachea midline. No JVD or lymphadenopathy. CARDIOVASCULAR: Regular rate and rhythm without murmurs, gallops, or rubs. RESPIRATORY: Breath sounds equal bilaterally. No accessory muscle use. GASTROINTESTINAL: Abdomen soft, non-tender, nondistended. MUSCULOSKELETAL: No cyanosis, or edema. BACK: Nontender without obvious deformity. No CVA tenderness. - Urinary Catheter Management Indwelling Urethral Catheter Cath placed during this visit: yes, but has since been removed by the nurse Reason for continuing: Decision to DC catheter Removal date: 10/05/18 Removal time: 09:30 Results - Labs CBC & Chem 7: 10/09/18 07:21 10/09/18 07:21 Laboratory Results - last 24 hr 10/09/18 10/09/18 10/09/18 12:15 16:53 20:34 ESR POC Glucose 217 H 239 H 306 H 10/10/18 10/10/18 07:57 07:58 ESR Greater than 140 H POC Glucose 249 H - Imaging Venous Doppler Study 09/23/18 13:35 CONCLUSION: 1. Occlusive thrombus in the proximal and mid cephalic vein. 2. Deep venous system is otherwise patent. 3. Heterogeneous hypoechoic collection along the right shoulder which could represent a hematoma and/or seroma. Lumbar Spine MRI 09/25/18 00:00 CONCLUSION: 1. Findings are diagnostic of discitis osteomyelitis at L4-L5 with epidural abscess posterior to the L4 and L5 vertebral body. This epidural material along with facet hypertrophy moderately narrows the spinal canal at this level. There additionally is some perivertebral enhancing material likely representing small perivertebral abscess. It is challenging to compare to the prior study since it was significantly degraded by motion artifact. However, the findings are similar and do not appear improved. 2. There is mild edema within the L2 disc space and minimal endplate irregularity and enhancement of L2. These changes could be secondary to degenerative disc disease but cannot exclude early discitis. Suggest attention to this area at follow-up imaging. Chest X-Ray 09/30/18 14:47 CONCLUSION: No acute cardiopulmonary disease. Lumbar Spine CT 10/01/18 00:00 CONCLUSION: 1. Destructive changes again noted involving the endplates at the L4-5 level consistent with the known discitis/osteomyelitis. There is abnormal soft tissue density the anterior epidural space consistent with the known epidural abscess. This does not appear significantly changed from the MRI examination. There is moderate central canal stenosis at this level. 2. Mild to moderate central canal stenosis also noted at the L2-3 level secondary to disc osteophyte complexes and degenerative change involving the facets. 3. Stable mild anterior spondylolisthesis of L4 on L5. Wrist X-Ray 10/03/18 00:00 CONCLUSION: Osteoarthritic findings of the wrist. Mild distal radioulnar joint narrowing. Cyst or erosion at the lateral aspect of the lunate. Lumbar Spine X-Ray 10/05/18 00:00 CONCLUSION: Postsurgical changes are noted. - Procedures L2-S1 posterior spinal fusion Pedicle screws fixation L2, L3, L4 6.5x50mm and s1 7.5x45, Rods [id number], Spine Wave system Use of 3D fluoroscopy Assessment and Plan - Assessment (1) Osteomyelitis Code(s): M86.9 - Osteomyelitis, unspecified Status: Acute (2) Diabetes Code(s): E11.9 - Type 2 diabetes mellitus without complications Status: Chronic (3) Strain of lumbar region Code(s): S39.012A - Strain of muscle, fascia and tendon of lower back, initial encounter Status: Acute (4) Lumbar radiculopathy Code(s): M54.16 - Radiculopathy, lumbar region Status: Acute (5) Suppurative tenosynovitis of flexor tendon of left hand Code(s): M65.142 - Other infective (teno)synovitis, left hand Status: Chronic (6) Abscess of hand, left Code(s): L02.512 - Cutaneous abscess of left hand Status: Acute (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 L4-L5 discitis - Neurosurgery following, s/p L5/S1 discectomy and fusion on 10/04 -Intraoperative culture positive for C. Albican, patient currently on amphotericin B since 10/06/18 as well as Cefoxitin 2gm IV Q6H +Biaxin until per ID -Appreciate input from neurosurgery, who has cleared patient for discharge. PIA drain to be removed today -TLSO brace when out of bed -PT following. 2. Chronic pain syndrome, opioid dependence - Required critical care to manage pain following surgery (received methadone IV , ketamine, and and versed on 10/04 to control pain) - Continue gabapentin 300 mg TID - Continue Mobic daily - Clonidine 0.2mg po q8h - Oxycodone 30mg po q4h prn and p.o. Dilaudid - Needs pain management on discharge 3. Tenosynovitis L hand - s/p exploration, wash, repair of wound dehiscence, left palm/ring finger on - s/p ABX as above 4. Atrial fibrillation - Currently rate-controlled - Restart Eliquis when cleared by neurosurgery - Continue Diltiazem 5. HTN controlled. - Continue ramipril and furosemide 6. Diabetes mellitus, Uncontrolled - A1c 7.8 - Continue Levemir increased to 35 units AM, and Levemir 20 units at bedtime, Pre meal 5 units of regular insulin. - SSI with Accu-Cheks per protocol 7. Right shoulder pain-improved - No trauma, possibly related to sleep position - Pain control as above 8. Anemia of acute blood loss -Monitor H&H and transfuse for hemoglobin less than 7 DVT prophylaxis: SCDs Code Status: Full code. Discussed Condition With: Patient and Nurse Miss Patiño Discharge Planning: Once cleared by ID specialist. (1) Osteomyelitis Qualifiers: Osteomyelitis type: unspecified type Osteomyelitis location: unspecified site Qualified Code(s): M86.9 - Osteomyelitis, unspecified (3) Strain of lumbar region Qualifiers: Encounter type: initial encounter Qualified Code(s): S39.012A - Strain of muscle, fascia and tendon of lower back, initial encounter (8) Malfunction of peripheral inserted central catheter Qualifiers: Encounter type: initial encounter Qualified Code(s): T82.598A - Other mechanical complication of other cardiac and vascular devices and implants, initial encounter
[2018-10-10] MEDS: Insulin Detemir Inj 1,000 UNIT/10 ML Vial SQ SCH ×2 (09:33→22:17)
[2018-10-10] MEDS: Insulin NovoLOG Aspart Correctional Sugar Inj SQ SCH ×4 (09:33→22:30)
[2018-10-10] MEDS: Gabapentin 300 MG Capsule PO SCH ×3 (09:35→17:51)
[2018-10-10] MEDS: Sodium Chloride 0.9% 2 ML Flush BID IV.FLUSH SCH ×2 (09:35→22:20)
[2018-10-10] MEDS: Furosemide 20 MG Tablet PO SCH ×2 (09:35→22:18)
[2018-10-10] MEDS: Ramipril 2.5 MG Capsule PO SCH (09:35)
[2018-10-10] MEDS: Senna/Docusate Sodium 8.6/50 MG Tablet PO SCH ×2 (09:35→22:18)
[2018-10-10] MEDS ORDERED: Insulin Detemir Inj 1,000 UNIT/10 ML Vial SQ ONE (11:26)
--- NOTE | 2018-10-10 14:54 | P.PNID ---
Subjective Remarks: Patient is complaining of pain in his legs. Little pain in the back. Did PT ambulation exercises yesterday in room. Afebrile. maculopapular rash on the back. Sensitivity of the Portia wound culture pending. Antibiotics: Biaxin Amphotericin B Lines: Line sites with no evidence of infection. 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 Allergies/Adverse Reactions: Allergies No Known Drug Allergies Allergy (Verified 08/06/18 15:59) none *MDRO Multi-Drug Resistant Organism Adverse Reaction (Unknown, Uncoded 06/16/17 16:34) MRSA MRSA (foot wound) - 02/12/15, 11/12/16, 03/29/17; (toe) - 03/2016 Objective Vital Signs 10/09/18 16:00 10/09/18 20:00 10/09/18 21:31 Temperature 98.3 F 98.6 F Pulse Rate 87 87 Respiratory Rate 16 20 17 Blood Pressure 108/53 L 169/83 H Pulse Oximetry 98 93 L 10/10/18 00:00 10/10/18 01:45 10/10/18 05:36 Temperature 98.2 F Pulse Rate 82 Respiratory Rate 19 17 16 Blood Pressure 143/57 H Pulse Oximetry 95 10/10/18 08:00 10/10/18 12:00 Temperature 98.2 F 98.7 F Pulse Rate 69 74 Respiratory Rate 17 18 Blood Pressure 105/55 L 104/56 L Pulse Oximetry 95 96 Intake & Output 10/09/18 10/10/18 10/10/18 18:59 06:59 18:59 Intake Total 50 / 50 1390 / 1390 Output Total 1135 / 1135 Balance 30 / 30 255 / 255 Weight 88.8 kg Intake: IV 50 / 50 390 / 390 Ambisome Inj 435 MG In D5W Inj 390 / 390 390 ML @ 250 mls/hr IV.SIG Q24H ROBBIE Rx#:[id number] Mefoxin Inj 2 GM In D5W Inj 50 50 / 50 ML @ 200 mls/hr IV.SIG Q6H ROBBIE Rx#:[id number] Oral 1000 / 1000 Output: Urine 1100 / 1100 Wound Drainage # 1 Lower Back PIA Drain Other: Date of Last Bowel Movement 10/08/18 10/04/18 16:56 Tissue - Other Acid Fast Bacilli Smear - Final No acid fast bacilli seen 10/04/18 16:56 Tissue - Other Mycobacterial Culture - Pending 10/04/18 16:05 Wound - Other Acid Fast Bacilli Smear - Final No acid fast bacilli seen 10/04/18 16:05 Wound - Other Mycobacterial Culture - Pending 10/04/18 16:05 Wound - Other Acid Fast Bacilli Smear - Final No acid fast bacilli seen 10/04/18 16:05 Wound - Other Mycobacterial Culture - Pending 10/04/18 16:05 Other - Pending 10/04/18 16:05 Wound - Other Gram Stain - Final 10/04/18 16:05 Wound - Other Wound Culture - Preliminary Portia albicans 10/04/18 16:56 Tissue - Other Gram Stain - Final 10/04/18 16:56 Tissue - Other Wound Culture - Final No growth in 72 hours (aerobically and anaerobically ) 10/04/18 16:05 Wound - Other Gram Stain - Final 10/04/18 16:05 Wound - Other Wound Culture - Final No growth in 72 hours (aerobically and anaerobically ) Lab - Hematology Results 10/09/18 10/10/18 07:21 07:58 WBC 11.4 H RBC 2.76 L Hgb 7.0 L Hct 22.0 L MCV 79.5 L MCH 25.3 L MCHC 31.8 L RDW 16.9 Plt Count 393 MPV 6.5 L Prelim Diff (Auto) Slide review pending Neut % (Auto) 81.9 H Lymph % (Auto) 8.7 L [place] % (Auto) 6.3 Eos % (Auto) 2.2 Baso % (Auto) 0.9 Neut # (Auto) 9.3 H Lymph # (Auto) 1.0 [place] # (Auto) 0.7 Eos # (Auto) 0.3 Baso # (Auto) 0.1 WBC Differential Manual diff final Seg Neuts % (Manual) 79 H Band Neuts % (Manual) 4 Lymphocytes % (Manual) 9 Monocytes % (Manual) 2 Eosinophils % (Manual) 6 H Abs Neuts (Manual) 9.5 H Differential Comment . Platelet Estimate Normal Platelet Morphology Normal ESR Greater than 140 H Lab - Chemistry Results 10/08/18 10/08/18 10/09/18 16:51 20:55 07:21 Sodium 137 Potassium 4.6 Chloride 104 Carbon Dioxide 26.5 Anion Gap 7 BUN 35 H Creatinine 0.96 Estimated GFR 80 L POC Glucose 262 H 303 H Random Glucose 211 H Calcium 8.1 L Total Bilirubin 0.1 L AST 13 L ALT 18 Alkaline Phosphatase 139 H Total Protein 6.1 L Albumin 1.9 L 10/09/18 10/09/18 10/09/18 07:54 12:15 16:53 Sodium Potassium Chloride Carbon Dioxide Anion Gap BUN Creatinine Estimated GFR POC Glucose 234 H 217 H 239 H Random Glucose Calcium Total Bilirubin AST ALT Alkaline Phosphatase Total Protein Albumin 10/09/18 10/10/18 10/10/18 20:34 07:57 12:43 Sodium Potassium Chloride Carbon Dioxide Anion Gap BUN Creatinine Estimated GFR POC Glucose 306 H 249 H 170 H Random Glucose Calcium Total Bilirubin AST ALT Alkaline Phosphatase Total Protein Albumin Imaging: ITS Impressions Venous Doppler Study 09/23/18 13:35 CONCLUSION: 1. Occlusive thrombus in the proximal and mid cephalic vein. 2. Deep venous system is otherwise patent. 3. Heterogeneous hypoechoic collection along the right shoulder which could represent a hematoma and/or seroma. Lumbar Spine MRI 09/25/18 00:00 CONCLUSION: 1. Findings are diagnostic of discitis osteomyelitis at L4-L5 with epidural abscess posterior to the L4 and L5 vertebral body. This epidural material along with facet hypertrophy moderately narrows the spinal canal at this level. There additionally is some perivertebral enhancing material likely representing small perivertebral abscess. It is challenging to compare to the prior study since it was significantly degraded by motion artifact. However, the findings are similar and do not appear improved. 2. There is mild edema within the L2 disc space and minimal endplate irregularity and enhancement of L2. These changes could be secondary to degenerative disc disease but cannot exclude early discitis. Suggest attention to this area at follow-up imaging. Chest X-Ray 09/30/18 14:47 CONCLUSION: No acute cardiopulmonary disease. Lumbar Spine CT 10/01/18 00:00 CONCLUSION: 1. Destructive changes again noted involving the endplates at the L4-5 level consistent with the known discitis/osteomyelitis. There is abnormal soft tissue density the anterior epidural space consistent with the known epidural abscess. This does not appear significantly changed from the MRI examination. There is moderate central canal stenosis at this level. 2. Mild to moderate central canal stenosis also noted at the L2-3 level secondary to disc osteophyte complexes and degenerative change involving the facets. 3. Stable mild anterior spondylolisthesis of L4 on L5. Wrist X-Ray 10/03/18 00:00 CONCLUSION: Osteoarthritic findings of the wrist. Mild distal radioulnar joint narrowing. Cyst or erosion at the lateral aspect of the lunate. Lumbar Spine X-Ray 10/05/18 00:00 CONCLUSION: Postsurgical changes are noted. Physical Exam: PHYSICAL EXAMINATION: GENERAL: No acute distress. HEENT: Head atraumatic. Extraocular movements grossly intact. Pupils reactive to light, without icterus. Oropharynx: Moist mucosa. No visible lesions. No thrush. NECK: Supple without adenopathy or swelling. LUNGS: Clear breath sounds. HEART: Regular S1, S2, without murmurs, rubs or gallops. ABDOMEN: Bowel sounds present; flat, soft. BACK: PIA bulb has (+) serous-sanguinous drainage. EXTREMITIES: No clubbing or cyanosis or edema. SKIN: Maculopapular rash persist on the back. NEUROLOGIC: Nonfocal. PSYCHIATRIC: Calm. Assessment and Plan - Plan ASSESSMENT AND PLAN: 1. Diskitis and osteomyelitis of the lumbar spine. Operative culture has Portia. Sensitivity is pending. Sed rate still elevated. Not yet showing any meaningful response. 2. Thrombus of the right upper extremity related to PICC line. 3. Catheter related infection from PICC line. 4. 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 has been on antibiotics 5. Chronic pain. 6. Rash. likely from antibiotics. cefoxitin stopped. RECOMMENDATIONS: 1. Continue Amphotericin B. Day # 4. Anticipate 8 - 12 weeks of antifungal for discitis / osteomyelitis due to Portia. Follow renal function, K+. 2. Follow sensitivity of the Portia. 3. Continue Biaxin until 10/25/2018.
[2018-10-10] MEDS: dilTIAZem CD 240 MG Capsule PO SCH (16:42)
[2018-10-10] MEDS: AMPHOTERICIN B LIPOSOMAL IV.SIG SCH ×2 (17:52)
[2018-10-10] MEDS: DEXTROSE 5% IV.SIG SCH ×2 (17:52)
[2018-10-10] MEDS: WATER IV.SIG SCH ×2 (17:52)
[2018-10-11] MEDS: Baclofen 10 MG Tablet PO SCH ×3 (05:20→21:00)
[2018-10-11] MEDS: Meloxicam 7.5 MG Tablet PO SCH ×2 (05:21→17:03)
[2018-10-11] MEDS: Gabapentin 300 MG Capsule PO SCH ×3 (09:06→17:03)
[2018-10-11] MEDS: Senna/Docusate Sodium 8.6/50 MG Tablet PO SCH ×2 (09:06→20:51)
[2018-10-11] MEDS: Furosemide 20 MG Tablet PO SCH ×2 (09:06→20:51)
[2018-10-11] MEDS: Ramipril 2.5 MG Capsule PO SCH (09:07)
[2018-10-11] MEDS: Sodium Chloride 0.9% 2 ML Flush BID IV.FLUSH SCH ×2 (09:07→20:52)
[2018-10-11] MEDS: Insulin NovoLOG Aspart Correctional Sugar Inj SQ SCH ×4 (09:07→20:53)
[2018-10-11] MEDS: Insulin Detemir Inj 1,000 UNIT/10 ML Vial SQ SCH ×2 (09:08→20:53)
--- NOTE | 2018-10-11 10:11 | P.PNNS ---
Subjective Interval history: Doing well, working with PT, describing some left leg weakness (per baseline) Physical Exam Vital signs: Vital Signs 10/10/18 12:00 10/10/18 16:00 10/10/18 20:00 Temperature 98.7 F 98.4 F 98.8 F Pulse Rate 74 81 88 Respiratory Rate 18 20 18 Blood Pressure 104/56 L 117/54 L 116/58 L Pulse Oximetry 96 98 98 10/11/18 00:00 10/11/18 04:00 10/11/18 08:00 Temperature 99.9 F H 100.2 F H Pulse Rate 84 75 Respiratory Rate 18 18 16 Blood Pressure 96/51 L 99/63 L Pulse Oximetry 94 L 96 Intake & Output 10/10/18 10/11/18 10/11/18 18:59 06:59 18:59 Intake Total 960 / 960 740 / 740 Output Total 800 / 800 680 / 680 Balance 160 / 160 60 / 60 Weight 99.6 kg Intake: IV 500 / 500 Ambisome Inj 435 MG In D5W Inj 500 / 500 390 ML @ 250 mls/hr IV.SIG Q24H ROBBIE Rx#:[id number] Oral 960 / 960 240 / 240 Output: Urine 800 / 800 670 / 670 Wound Drainage # 1 Lower Back PIA Drain Other: Date of Last Bowel Movement 10/10/18 10/10/18 # Bowel Movements 0 2 Narrative: Dressing c/d/i Full strength UE, RLE, LLE 4-5 baseline A&O x 3 - Urinary Catheter Management Indwelling Urethral Catheter Cath placed during this visit: yes, but has since been removed by the nurse Reason for continuing: Decision to DC catheter Removal date: 10/05/18 Removal time: 09:30 Assessment and Plan - Plan MRI: 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 Plan: 10/01/18: Given the persistent symptoms, it is reasonable to stabilize his spine with instrumentation from L2-S1 and simultaneously do a laminectomy at L4/5 to get cultures. Patient understands the risks of surgery including paralysis and sepsis, and wishes to proceed. I discussed with ID and the medicine team. There is risk of instrumentation failure down the line due to persistent infection and his history of susceptibility to infections. However, conservative measures do not look like they are working with IV abx and bracing does not seem to be helping. We will proceed tomorrow with surgery, monitoring , instrumentation, concentric C. 10/02/18: Surgery today postpone as patient got one dose of eliquis on 10/01 in the morning. Recommendations to wait 48 hours given heavy risk of bleeding and already low preop H/H of 8.3/24. Type and Cross to be performed for full antibody panel, plan Sunday noon case at present. Discussed with patient, anesthesiologist and primary team Adela CRAIG. 10/03/18: surgery with Dr. Groves planned for tomorrow. NPO tonight at midnight. 10/04/18: surgery tentatively 1:30 today 10/05/18: Follow cultures from OR -- ID. Mobilize (ok to have brace off for short distances, would prefer to use brace when walking long distance). D/c maki. Pain control and ok for transfer back to primary service. Continue to monitor drain output. L-spine xrays today. 10/06/18: Xrays look good. OR cultures -- 1 positive for Portia, rest pending. Mobilize. D/c translation director tomorrow per primary team. Transferred to floor. Brace when walking long distances-- PT. 10/07/18: cont PIA draining for today given his infection. f/u cultures, cont abx therapy per ID. Brace when ambulating, cont PT 10/08: keep PIA in today, monitor output and reassess tomorrow. ROSMERY dressing removed, replaced with Optifoam dressing to be changed daily. dw nursing, will return tomorrow 10/09: clear to remove PIA drain today. continue bid [place] changes and wound monitoring. dilshad to be removed 10/16/18. cont therapy, brace when OOB. ok to dc to SNF/rehab from [facility] standpoint once abx tx arranged. katie Martini ok for patient to resume his Eliquis 10/11: D/c PIA Drain today. NSG will follow peripherally going forward.
[2018-10-11] MEDS ORDERED: Acetaminophen 325 MG Tablet PO PRN (11:24)
--- NOTE | 2018-10-11 11:28 | P.PN ---
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 anticipated 8 to 12 weeks of antifungal for discitis , osteomyelitis due to Portia, stopped Cefoxitin, and continue Biaxin until 10/25/18. 10/10: Stable in his bedroom, asking for IV pain medicine Dilaudid, he has already this medicine on board, he was clear for discharge by Neurosurgery and awaiting final by ID specialist. 10/11: Discussed with nurse the patient developed some rash on his back and right wrist I may seen this are areas of contact his bed was evaluated with Miss Patiño he has wet bed and with many stains for some time there, the nurse states he does not permit to have a shower and also does not accept to change his Sheets and blankets. no nausea, vomit or diarrhea. removed PIA drain. Physical Exam Vital signs: Vital Signs 10/10/18 12:00 10/10/18 16:00 10/10/18 20:00 Temperature 98.7 F 98.4 F 98.8 F Pulse Rate 74 81 88 Respiratory Rate 18 20 18 Blood Pressure 104/56 L 117/54 L 116/58 L Pulse Oximetry 96 98 98 10/11/18 00:00 10/11/18 04:00 10/11/18 08:00 Temperature 99.9 F H 100.2 F H Pulse Rate 84 75 Respiratory Rate 18 18 16 Blood Pressure 96/51 L 99/63 L Pulse Oximetry 94 L 96 Intake & Output 10/10/18 10/11/18 10/11/18 18:59 06:59 18:59 Intake Total 960 / 960 740 / 740 Output Total 800 / 800 680 / 680 Balance 160 / 160 60 / 60 Weight 99.6 kg Intake: IV 500 / 500 Ambisome Inj 435 MG In D5W Inj 500 / 500 390 ML @ 250 mls/hr IV.SIG Q24H ROBBIE Rx#:[id number] Oral 960 / 960 240 / 240 Output: Urine 800 / 800 670 / 670 Wound Drainage # 1 Lower Back PIA Drain Other: Date of Last Bowel Movement 10/10/18 10/10/18 # Bowel Movements 0 2 Narrative: GENERAL: NAD SKIN: Warm and dry. PIA in place and draining. HEAD: Normocephalic. EYES: No scleral icterus. No injection or drainage. NECK: Supple, trachea midline. No JVD or lymphadenopathy. CARDIOVASCULAR: Regular rate and rhythm without murmurs, gallops, or rubs. RESPIRATORY: Breath sounds equal bilaterally. No accessory muscle use. GASTROINTESTINAL: Abdomen soft, non-tender, nondistended. MUSCULOSKELETAL: No cyanosis, or edema. BACK: Nontender without obvious deformity. No CVA tenderness. - Urinary Catheter Management Indwelling Urethral Catheter Cath placed during this visit: yes, but has since been removed by the nurse Reason for continuing: Decision to DC catheter Removal date: 10/05/18 Removal time: 09:30 Results - Labs CBC & Chem 7: 10/09/18 07:21 10/12/18 07:16 Laboratory Results - last 24 hr 10/10/18 10/10/18 10/10/18 12:43 16:44 22:16 POC Glucose 170 H 290 H 216 H C-Reactive Protein 10/11/18 10/11/18 06:09 07:44 POC Glucose 230 H C-Reactive Protein 9.90 H - Imaging Venous Doppler Study 09/23/18 13:35 CONCLUSION: 1. Occlusive thrombus in the proximal and mid cephalic vein. 2. Deep venous system is otherwise patent. 3. Heterogeneous hypoechoic collection along the right shoulder which could represent a hematoma and/or seroma. Lumbar Spine MRI 09/25/18 00:00 CONCLUSION: 1. Findings are diagnostic of discitis osteomyelitis at L4-L5 with epidural abscess posterior to the L4 and L5 vertebral body. This epidural material along with facet hypertrophy moderately narrows the spinal canal at this level. There additionally is some perivertebral enhancing material likely representing small perivertebral abscess. It is challenging to compare to the prior study since it was significantly degraded by motion artifact. However, the findings are similar and do not appear improved. 2. There is mild edema within the L2 disc space and minimal endplate irregularity and enhancement of L2. These changes could be secondary to degenerative disc disease but cannot exclude early discitis. Suggest attention to this area at follow-up imaging. Chest X-Ray 09/30/18 14:47 CONCLUSION: No acute cardiopulmonary disease. Lumbar Spine CT 10/01/18 00:00 CONCLUSION: 1. Destructive changes again noted involving the endplates at the L4-5 level consistent with the known discitis/osteomyelitis. There is abnormal soft tissue density the anterior epidural space consistent with the known epidural abscess. This does not appear significantly changed from the MRI examination. There is moderate central canal stenosis at this level. 2. Mild to moderate central canal stenosis also noted at the L2-3 level secondary to disc osteophyte complexes and degenerative change involving the facets. 3. Stable mild anterior spondylolisthesis of L4 on L5. Wrist X-Ray 10/03/18 00:00 CONCLUSION: Osteoarthritic findings of the wrist. Mild distal radioulnar joint narrowing. Cyst or erosion at the lateral aspect of the lunate. Lumbar Spine X-Ray 10/05/18 00:00 CONCLUSION: Postsurgical changes are noted. - Procedures L2-S1 posterior spinal fusion Pedicle screws fixation L2, L3, L4 6.5x50mm and s1 7.5x45, Rods 5.2d210ud, Spine Wave system Use of 3D fluoroscopy Assessment and Plan - Assessment (1) Osteomyelitis Code(s): M86.9 - Osteomyelitis, unspecified Status: Acute (2) Diabetes Code(s): E11.9 - Type 2 diabetes mellitus without complications Status: Chronic (3) Strain of lumbar region Code(s): S39.012A - Strain of muscle, fascia and tendon of lower back, initial encounter Status: Acute (4) Lumbar radiculopathy Code(s): M54.16 - Radiculopathy, lumbar region Status: Acute (5) Suppurative tenosynovitis of flexor tendon of left hand Code(s): M65.142 - Other infective (teno)synovitis, left hand Status: Chronic (6) Abscess of hand, left Code(s): L02.512 - Cutaneous abscess of left hand Status: Acute (7) Mycobacterium abscessus infection Code(s): A31.9 - Mycobacterial infection, unspecified Status: Acute (8) Malfunction of peripheral inserted central catheter Code(s): T82.598A - Other mechanical complication of other cardiac and vascular devices and implants, initial encounter Status: Acute (9) Antibiotic long-term use Code(s): Z79.2 - manager terminal (current) use of antibiotics Status: Acute - Plan 58-year-old man with 1. L4-L5 discitis - Neurosurgery following, s/p L5/S1 discectomy and fusion on 10/04 -Intraoperative culture positive for C. [place], patient currently on amphotericin B since 10/06/18 as well as Cefoxitin 2gm IV Q6H +Biaxin until per ID -Appreciate input from neurosurgery, who has cleared patient for discharge. PIA drain removed 10/10/18 -TLSO brace when out of bed -PT following. 2. Chronic pain syndrome, opioid dependence - Required critical care to manage pain following surgery (received methadone IV , ketamine, and and versed on 10/04 to control pain) - Continue gabapentin 300 mg TID - Continue Mobic daily - Clonidine 0.2mg po q8h - Oxycodone 30mg po q4h prn and p.o. Dilaudid - Needs pain management on discharge 3. Tenosynovitis L hand - s/p exploration, wash, repair of wound dehiscence, left palm/ring finger on - s/p ABX as above 4. Atrial fibrillation - Currently rate-controlled - Restart Eliquis when cleared by neurosurgery - Continue Diltiazem 5. HTN controlled. - Continue ramipril and furosemide 6. Diabetes mellitus, Uncontrolled - A1c 7.8 - Continue Levemir increased to 35 units AM, and Levemir 20 units at bedtime, Pre meal 5 units of regular insulin. - SSI with Accu-Cheks per protocol 7. Right shoulder pain-improved - No trauma, possibly related to sleep position - Pain control as above 8. Anemia of acute blood loss -Monitor H&H and transfuse for hemoglobin less than 7 9. rash probable related to contact with wet bed encourage ambulation and try to sit down instead of staying in bed on Supine position. DVT prophylaxis: SCDs Code Status: Full code. Discussed Condition With: Patient and nurse Miss Patiño Discharge Planning: Once cleared by ID specialist. (1) Osteomyelitis Qualifiers: Osteomyelitis type: unspecified type Osteomyelitis location: unspecified site Qualified Code(s): M86.9 - Osteomyelitis, unspecified (3) Strain of lumbar region Qualifiers: Encounter type: initial encounter Qualified Code(s): S39.012A - Strain of muscle, fascia and tendon of lower back, initial encounter (8) Malfunction of peripheral inserted central catheter Qualifiers: Encounter type: initial encounter Qualified Code(s): T82.598A - Other mechanical complication of other cardiac and vascular devices and implants, initial encounter
--- NOTE | 2018-10-11 14:18 | P.PNID ---
Subjective Remarks: Patient continues to have back pain. Ambulated with PT. Difficulty sitting up straight. Afebrile. Rash on the back is improved. PIA drain removed. Sensitivity of the Portia wound culture pending. Antibiotics: Biaxin Amphotericin B Lines: Line sites with no evidence of infection. 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 Allergies/Adverse Reactions: Allergies No Known Drug Allergies Allergy (Verified 08/06/18 15:59) none *MDRO Multi-Drug Resistant Organism Adverse Reaction (Unknown, Uncoded 06/16/17 16:34) MRSA MRSA (foot wound) - 02/12/15, 11/12/16, 03/29/17; (toe) - 03/2016 Objective Vital Signs 10/10/18 16:00 10/10/18 20:00 10/11/18 00:00 Temperature 98.4 F 98.8 F 99.9 F H Pulse Rate 81 88 84 Respiratory Rate 18 Blood Pressure 117/54 L 116/58 L 96/51 L Pulse Oximetry 98 98 94 L 10/11/18 04:00 10/11/18 08:00 10/11/18 12:00 Temperature 100.2 F H 97.2 F L Pulse Rate 75 70 Respiratory Rate 16 Blood Pressure 99/63 L 104/51 L Pulse Oximetry 96 96 Intake & Output 10/10/18 10/11/18 10/11/18 18:59 06:59 18:59 Intake Total 960 / 960 740 / 740 Output Total 800 / 800 680 / 680 Balance 160 / 160 60 / 60 Weight 99.6 kg Intake: IV 500 / 500 Ambisome Inj 435 MG In D5W Inj 500 / 500 390 ML @ 250 mls/hr IV.SIG Q24H [facility] Rx#:[id number] Oral 960 / 960 240 / 240 Output: Urine 800 / 800 670 / 670 Wound Drainage # 1 Lower Back PIA Drain Other: Date of Last Bowel Movement 10/10/18 10/10/18 # Bowel Movements 0 2 10/04/18 16:56 Tissue - Other Fungal Smear - Final No fungal elements seen 10/04/18 16:56 Tissue - Other Fungal Culture - Preliminary No growth in 1 week 10/04/18 16:56 Tissue - Other Acid Fast Bacilli Smear - Final No acid fast bacilli seen 10/04/18 16:56 Tissue - Other Mycobacterial Culture - Preliminary No growth in 1 week 10/04/18 16:05 Wound - Other Fungal Smear - Final No fungal elements seen 10/04/18 16:05 Wound - Other Fungal Culture - Preliminary No growth in 1 week 10/04/18 16:05 Wound - Other Acid Fast Bacilli Smear - Final No acid fast bacilli seen 10/04/18 16:05 Wound - Other Mycobacterial Culture - Preliminary No growth in 1 week 10/04/18 16:05 Wound - Other Fungal Smear - Final No fungal elements seen 10/04/18 16:05 Wound - Other Fungal Culture - Preliminary No growth in 1 week 10/04/18 16:05 Wound - Other Acid Fast Bacilli Smear - Final No acid fast bacilli seen 10/04/18 16:05 Wound - Other Mycobacterial Culture - Preliminary No growth in 1 week Lab - Hematology Results 10/10/18 07:58 ESR Greater than 140 H Lab - Chemistry Results 10/09/18 10/09/18 10/10/18 16:53 20:34 07:57 POC Glucose 239 H 306 H 249 H C-Reactive Protein 10/10/18 10/10/18 10/10/18 12:43 16:44 22:16 POC Glucose 170 H 290 H 216 H C-Reactive Protein 10/11/18 10/11/18 10/11/18 06:09 07:44 12:14 POC Glucose 230 H 162 H C-Reactive Protein 9.90 H Imaging: ITS Impressions Venous Doppler Study 09/23/18 13:35 CONCLUSION: 1. Occlusive thrombus in the proximal and mid cephalic vein. 2. Deep venous system is otherwise patent. 3. Heterogeneous hypoechoic collection along the right shoulder which could represent a hematoma and/or seroma. Lumbar Spine MRI 09/25/18 00:00 CONCLUSION: 1. Findings are diagnostic of discitis osteomyelitis at L4-L5 with epidural abscess posterior to the L4 and L5 vertebral body. This epidural material along with facet hypertrophy moderately narrows the spinal canal at this level. There additionally is some perivertebral enhancing material likely representing small perivertebral abscess. It is challenging to compare to the prior study since it was significantly degraded by motion artifact. However, the findings are similar and do not appear improved. 2. There is mild edema within the L2 disc space and minimal endplate irregularity and enhancement of L2. These changes could be secondary to degenerative disc disease but cannot exclude early discitis. Suggest attention to this area at follow-up imaging. Chest X-Ray 09/30/18 14:47 CONCLUSION: No acute cardiopulmonary disease. Lumbar Spine CT 10/01/18 00:00 CONCLUSION: 1. Destructive changes again noted involving the endplates at the L4-5 level consistent with the known discitis/osteomyelitis. There is abnormal soft tissue density the anterior epidural space consistent with the known epidural abscess. This does not appear significantly changed from the MRI examination. There is moderate central canal stenosis at this level. 2. Mild to moderate central canal stenosis also noted at the L2-3 level secondary to disc osteophyte complexes and degenerative change involving the facets. 3. Stable mild anterior spondylolisthesis of L4 on L5. Wrist X-Ray 10/03/18 00:00 CONCLUSION: Osteoarthritic findings of the wrist. Mild distal radioulnar joint narrowing. Cyst or erosion at the lateral aspect of the lunate. Lumbar Spine X-Ray 10/05/18 00:00 CONCLUSION: Postsurgical changes are noted. Physical Exam: PHYSICAL EXAMINATION: GENERAL: No acute distress. HEENT: Head atraumatic. Extraocular movements grossly intact. Pupils reactive to light, without icterus. Oropharynx: Moist mucosa. No visible lesions. No thrush. NECK: Supple without adenopathy or swelling. LUNGS: Breath sounds clear. HEART: Regular S1, S2, without murmurs, rubs or gallops. ABDOMEN: Bowel sounds present; flat, soft, non tender. EXTREMITIES: No clubbing or cyanosis or edema. SKIN: Maculopapular rash on the back is fading. NEUROLOGIC: Nonfocal. PSYCHIATRIC: Calm. Assessment and Plan - Plan ASSESSMENT AND PLAN: 1. Catheter related infection from PICC line. 2. Thrombus of the right upper extremity related to PICC line. 3. Diskitis and osteomyelitis of the lumbar spine. Operative culture has Portia. Sensitivity is pending. 4. 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 has been on antibiotics 5. Chronic pain. 6. Rash. likely from antibiotics. RECOMMENDATIONS: 1. Continue Amphotericin B. Anticipate 8 - 12 weeks of antifungal for discitis / osteomyelitis due to Portia. Awaiting sensitivity from Micro to determine if he can be switched to Diflucan. Continue the Ampho B through the weekend and monitor renal function and Potassium. 2. Continue Biaxin until 10/25/2018. I will be off this weekend. Call ID on weekend call if needed.
[2018-10-11] MEDS: dilTIAZem CD 240 MG Capsule PO SCH (17:03)
[2018-10-11] MEDS: WATER IV.SIG SCH ×2 (17:59)
[2018-10-11] MEDS: AMPHOTERICIN B LIPOSOMAL IV.SIG SCH ×2 (17:59)
[2018-10-11] MEDS: DEXTROSE 5% IV.SIG SCH ×2 (17:59)
[2018-10-12] MEDS: Meloxicam 7.5 MG Tablet PO SCH ×2 (05:18→17:44)
[2018-10-12] MEDS: Baclofen 10 MG Tablet PO SCH ×3 (05:18→21:41)
[2018-10-12] MEDS: Ramipril 2.5 MG Capsule PO SCH (08:05)
[2018-10-12] MEDS: Furosemide 20 MG Tablet PO SCH ×2 (08:06→20:06)
[2018-10-12] MEDS: Insulin NovoLOG Aspart Correctional Sugar Inj SQ SCH ×4 (08:06→20:06)
[2018-10-12] MEDS: Senna/Docusate Sodium 8.6/50 MG Tablet PO SCH ×2 (08:06→20:06)
[2018-10-12] MEDS: Gabapentin 300 MG Capsule PO SCH ×3 (08:06→17:44)
[2018-10-12] MEDS: Insulin Detemir Inj 1,000 UNIT/10 ML Vial SQ SCH ×2 (08:07→20:06)
[2018-10-12] MEDS: Sodium Chloride 0.9% 2 ML Flush BID IV.FLUSH SCH ×2 (08:07→20:06)
[2018-10-12 08:35] LABS: Calcium 8.9 mg/dL (8.5-10.1); Potassium 4.7 meq/L (3.5-5.1)
--- NOTE | 2018-10-12 10:57 | P.PN ---
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 anticipated 8 to 12 weeks of antifungal for discitis , osteomyelitis due to Portia, stopped Cefoxitin, and continue Biaxin until 10/25/18. 10/10: Stable in his bedroom, asking for IV pain medicine Dilaudid, he has already this medicine on board, he was clear for discharge by Neurosurgery and awaiting final by ID specialist. 10/11: Discussed with nurse the patient developed some rash on his back and right wrist I may seen this are areas of contact his bed was evaluated with Miss Patiño he has wet bed and with many stains for some time there, the nurse states he does not permit to have a shower and also does not accept to change his Sheets and blankets. removed PIA drain yesterday. 10/12: Seen in his bedroom in the presence of nurse Miss Patiño, he has multiple rash areas on his Right wrist and back, continue to encourage to change his Sheets and Blankets, he has to take a shower that he refused to, as per ID specialist he has Catheter related infection from PICC line Recommended to continue Amphotericin B, anticipated 8 to 12 weeks of antifungal for discitis/ Osteomyelitis due to Portia, to monitor renal function and Potassium, Continue Biaxin until 10/25/18. No nausea, vomit or diarrhea Physical Exam Vital signs: Vital Signs 10/11/18 12:00 10/11/18 16:00 10/11/18 20:00 Temperature 97.2 F L 98.5 F 98.7 F Pulse Rate 70 89 81 Respiratory Rate 16 20 18 Blood Pressure 104/51 L 106/50 L 94/53 L Pulse Oximetry 96 93 L 96 10/11/18 22:43 10/12/18 04:00 10/12/18 08:00 Temperature 98.0 F 98.9 F Pulse Rate 79 81 Respiratory Rate 18 18 16 Blood Pressure 118/59 L 116/56 L Pulse Oximetry 96 93 L Intake & Output 10/11/18 10/12/18 10/12/18 18:59 06:59 18:59 Intake Total 630 / 630 Output Total 5 / 1925 Balance -1295 / -1295 Weight 100.7 kg Intake: IV 390 / 390 Ambisome Inj 435 MG In D5W Inj 390 / 390 390 ML @ 250 mls/hr IV.SIG Q24H [facility] Rx#:[id number] Oral 240 / 240 Output: Urine 5 / 1925 Other: Date of Last Bowel Movement 10/10/18 10/11/18 Narrative: GENERAL: NAD SKIN: Warm and dry. multiple skin rash areas on back and right wrist. HEAD: Normocephalic. EYES: No scleral icterus. No injection or drainage. NECK: Supple, trachea midline. No JVD or lymphadenopathy. CARDIOVASCULAR: Regular rate and rhythm without murmurs, gallops, or rubs. RESPIRATORY: Breath sounds equal bilaterally. No accessory muscle use. GASTROINTESTINAL: Abdomen soft, non-tender, nondistended. MUSCULOSKELETAL: No cyanosis, or edema. BACK: Nontender without obvious deformity. No CVA tenderness. - Urinary Catheter Management Indwelling Urethral Catheter Cath placed during this visit: yes, but has since been removed by the nurse Reason for continuing: Decision to DC catheter Removal date: 10/05/18 Removal time: 09:30 Results - Labs CBC & Chem 7: 10/09/18 07:21 10/12/18 07:16 Laboratory Results - last 24 hr 10/11/18 10/11/18 10/11/18 12:14 17:12 20:34 Sodium Potassium Chloride Carbon Dioxide Anion Gap BUN Creatinine Estimated GFR POC Glucose 162 H 167 H 327 H Random Glucose Calcium 10/12/18 10/12/18 07:16 07:19 Sodium 135 L Potassium 4.7 Chloride 99 Carbon Dioxide 26.0 Anion Gap 10 BUN 46 H Creatinine 1.09 Estimated GFR 69 L POC Glucose 198 H Random Glucose 163 H Calcium 8.9 Microbiology 10/04/18 16:05 Other - Final 10/04/18 16:05 Wound - Other Gram Stain - Final 10/04/18 16:05 Wound - Other Wound Culture - Final Portia albicans 10/04/18 16:56 Tissue - Other Fungal Smear - Final No fungal elements seen 10/04/18 16:56 Tissue - Other Fungal Culture - Preliminary No growth in 1 week 10/04/18 16:56 Tissue - Other Acid Fast Bacilli Smear - Final No acid fast bacilli seen 10/04/18 16:56 Tissue - Other Mycobacterial Culture - Preliminary No growth in 1 week 10/04/18 16:05 Wound - Other Fungal Smear - Final No fungal elements seen 10/04/18 16:05 Wound - Other Fungal Culture - Preliminary No growth in 1 week 10/04/18 16:05 Wound - Other Acid Fast Bacilli Smear - Final No acid fast bacilli seen 10/04/18 16:05 Wound - Other Mycobacterial Culture - Preliminary No growth in 1 week 10/04/18 16:05 Wound - Other Fungal Smear - Final No fungal elements seen 10/04/18 16:05 Wound - Other Fungal Culture - Preliminary No growth in 1 week 10/04/18 16:05 Wound - Other Acid Fast Bacilli Smear - Final No acid fast bacilli seen 10/04/18 16:05 Wound - Other Mycobacterial Culture - Preliminary No growth in 1 week - Imaging Venous Doppler Study 09/23/18 13:35 CONCLUSION: 1. Occlusive thrombus in the proximal and mid cephalic vein. 2. Deep venous system is otherwise patent. 3. Heterogeneous hypoechoic collection along the right shoulder which could represent a hematoma and/or seroma. Lumbar Spine MRI 09/25/18 00:00 CONCLUSION: 1. Findings are diagnostic of discitis osteomyelitis at L4-L5 with epidural abscess posterior to the L4 and L5 vertebral body. This epidural material along with facet hypertrophy moderately narrows the spinal canal at this level. There additionally is some perivertebral enhancing material likely representing small perivertebral abscess. It is challenging to compare to the prior study since it was significantly degraded by motion artifact. However, the findings are similar and do not appear improved. 2. There is mild edema within the L2 disc space and minimal endplate irregularity and enhancement of L2. These changes could be secondary to degenerative disc disease but cannot exclude early discitis. Suggest attention to this area at follow-up imaging. Chest X-Ray 09/30/18 14:47 CONCLUSION: No acute cardiopulmonary disease. Lumbar Spine CT 10/01/18 00:00 CONCLUSION: 1. Destructive changes again noted involving the endplates at the L4-5 level consistent with the known discitis/osteomyelitis. There is abnormal soft tissue density the anterior epidural space consistent with the known epidural abscess. This does not appear significantly changed from the MRI examination. There is moderate central canal stenosis at this level. 2. Mild to moderate central canal stenosis also noted at the L2-3 level secondary to disc osteophyte complexes and degenerative change involving the facets. 3. Stable mild anterior spondylolisthesis of L4 on L5. Wrist X-Ray 10/03/18 00:00 CONCLUSION: Osteoarthritic findings of the wrist. Mild distal radioulnar joint narrowing. Cyst or erosion at the lateral aspect of the lunate. Lumbar Spine X-Ray 10/05/18 00:00 CONCLUSION: Postsurgical changes are noted. - Procedures L2-S1 posterior spinal fusion Pedicle screws fixation L2, L3, L4 6.5x50mm and s1 7.5x45, Rods [id number], Spine Wave system Use of 3D fluoroscopy Assessment and Plan - Assessment (1) Osteomyelitis Code(s): M86.9 - Osteomyelitis, unspecified Status: Acute (2) Diabetes Code(s): E11.9 - Type 2 diabetes mellitus without complications Status: Chronic (3) Strain of lumbar region Code(s): S39.012A - Strain of muscle, fascia and tendon of lower back, initial encounter Status: Acute (4) Lumbar radiculopathy Code(s): M54.16 - Radiculopathy, lumbar region Status: Acute (5) Suppurative tenosynovitis of flexor tendon of left hand Code(s): M65.142 - Other infective (teno)synovitis, left hand Status: Chronic (6) Abscess of hand, left Code(s): L02.512 - Cutaneous abscess of left hand Status: Acute (7) Mycobacterium abscessus infection Code(s): A31.9 - Mycobacterial infection, unspecified Status: Acute (8) Malfunction of peripheral inserted central catheter Code(s): T82.598A - Other mechanical complication of other cardiac and vascular devices and implants, initial encounter Status: Acute (9) Antibiotic long-term use Code(s): Z79.2 - FPC (current) use of antibiotics Status: Acute - Plan 58-year-old man with 1. L4-L5 discitis - Neurosurgery following, s/p L5/S1 discectomy and fusion on 10/04 -Intraoperative culture positive for C. Albican, patient currently on amphotericin B since 10/06/18 as well as Cefoxitin 2gm IV Q6H +Biaxin until per ID -Appreciate input from neurosurgery, who has cleared patient for discharge. PIA drain removed 10/10/18 -TLSO brace when out of bed -PT following. -10/12: As per ID specialist Recommended to continue Amphotericin B, anticipated 8 to 12 weeks of antifungal for discitis/ Osteomyelitis due to Portia, to monitor renal function and Potassium, Continue Biaxin until 10/25/18. 2. Chronic pain syndrome, opioid dependence - Required critical care to manage pain following surgery (received methadone IV , ketamine, and and versed on 10/04 to control pain) - Continue gabapentin 300 mg TID - Continue Mobic daily - Clonidine 0.2mg po q8h - Oxycodone 30mg po q4h prn and p.o. Dilaudid - Needs pain management on discharge 3. Tenosynovitis L hand - s/p exploration, wash, repair of wound dehiscence, left palm/ring finger on - s/p ABX as above 4. Atrial fibrillation - Currently rate-controlled - Restart Eliquis when cleared by neurosurgery - Continue Diltiazem 5. HTN controlled. - Continue ramipril and furosemide 6. Diabetes mellitus, Uncontrolled - A1c 7.8 - Continue Levemir increased to 35 units AM, and Levemir 20 units at bedtime, Pre meal 5 units of regular insulin. - SSI with Accu-Cheks per protocol 7. Right shoulder pain-improved - No trauma, possibly related to sleep position - Pain control as above 8. Anemia of acute blood loss -Monitor H&H and transfuse for hemoglobin less than 7 9. rash probable related to contact with wet bed encourage ambulation and try to sit down instead of staying in bed on Supine position. as per ID probable from antibiotics. but I see contact areas only with rash. DVT prophylaxis: SCDs Code Status: Full code. Discussed Condition With: Patient and Nurse Miss Patiño. Discharge Planning: Once cleared by ID specialist. (1) Osteomyelitis Qualifiers: Osteomyelitis type: unspecified type Osteomyelitis location: unspecified site Qualified Code(s): M86.9 - Osteomyelitis, unspecified (3) Strain of lumbar region Qualifiers: Encounter type: initial encounter Qualified Code(s): S39.012A - Strain of muscle, fascia and tendon of lower back, initial encounter (8) Malfunction of peripheral inserted central catheter Qualifiers: Encounter type: initial encounter Qualified Code(s): T82.598A - Other mechanical complication of other cardiac and vascular devices and implants, initial encounter
--- NOTE | 2018-10-12 12:02 | P.PN ---
Subjective Interval history: no change in symptoms Physical Exam Vital signs: Vital Signs 10/11/18 12:00 10/11/18 16:00 10/11/18 20:00 Temperature 97.2 F L 98.5 F 98.7 F Pulse Rate 70 89 81 Respiratory Rate 16 20 18 Blood Pressure 104/51 L 106/50 L 94/53 L Pulse Oximetry 96 93 L 96 10/11/18 22:43 10/12/18 04:00 10/12/18 08:00 Temperature 98.0 F 98.9 F Pulse Rate 79 81 Respiratory Rate 18 18 16 Blood Pressure 118/59 L 116/56 L Pulse Oximetry 96 93 L Intake & Output 10/11/18 10/12/18 10/12/18 18:59 06:59 18:59 Intake Total 630 / 630 Output Total 1925 / 1925 Balance -1295 / -1295 Weight 100.7 kg Intake: IV 390 / 390 Ambisome Inj 435 MG In D5W Inj 390 / 390 390 ML @ 250 mls/hr IV.SIG Q24H [facility] Rx#:[id number] Oral 240 / 240 Output: Urine 1924 / 192 Other: Date of Last Bowel Movement 10/10/18 10/11/18 Narrative: left hand: dressing and steri strips in place examination after removal of strips reveals exposed tendon no drainage fixed flexion deformity of the ring finger noted at the PIP joint intact sensation and circulation distally - Urinary Catheter Management Indwelling Urethral Catheter Cath placed during this visit: yes, but has since been removed by the nurse Reason for continuing: Decision to DC catheter Removal date: 10/05/18 Removal time: 09:30 Results - Labs CBC & Chem 7: 10/09/18 07:21 10/12/18 07:16 Laboratory Results - last 24 hr 10/11/18 10/11/18 10/11/18 12:14 17:12 20:34 Sodium Potassium Chloride Carbon Dioxide Anion Gap BUN Creatinine Estimated GFR POC Glucose 162 H 167 H 327 H Random Glucose Calcium 10/12/18 10/12/18 10/12/18 07:16 07:19 11:21 Sodium 135 L Potassium 4.7 Chloride 99 Carbon Dioxide 26.0 Anion Gap 10 BUN 46 H Creatinine 1.09 Estimated GFR 69 L POC Glucose 198 H 417 H Random Glucose 163 H Calcium 8.9 Microbiology 10/04/18 16:05 Other - Final 10/04/18 16:05 Wound - Other Gram Stain - Final 10/04/18 16:05 Wound - Other Wound Culture - Final Portia albicans 10/04/18 16:56 Tissue - Other Fungal Smear - Final No fungal elements seen 10/04/18 16:56 Tissue - Other Fungal Culture - Preliminary No growth in 1 week 10/04/18 16:56 Tissue - Other Acid Fast Bacilli Smear - Final No acid fast bacilli seen 10/04/18 16:56 Tissue - Other Mycobacterial Culture - Preliminary No growth in 1 week 10/04/18 16:05 Wound - Other Fungal Smear - Final No fungal elements seen 10/04/18 16:05 Wound - Other Fungal Culture - Preliminary No growth in 1 week 10/04/18 16:05 Wound - Other Acid Fast Bacilli Smear - Final No acid fast bacilli seen 10/04/18 16:05 Wound - Other Mycobacterial Culture - Preliminary No growth in 1 week 10/04/18 16:05 Wound - Other Fungal Smear - Final No fungal elements seen 10/04/18 16:05 Wound - Other Fungal Culture - Preliminary No growth in 1 week 10/04/18 16:05 Wound - Other Acid Fast Bacilli Smear - Final No acid fast bacilli seen 10/04/18 16:05 Wound - Other Mycobacterial Culture - Preliminary No growth in 1 week - Procedures L2-S1 posterior spinal fusion Pedicle screws fixation L2, L3, L4 6.5x50mm and s1 7.5x45, Rods [id number], Spine Wave system Use of 3D fluoroscopy Assessment and Plan - Assessment (1) Suppurative tenosynovitis of flexor tendon of left hand Code(s): M65.142 - Other infective (teno)synovitis, left hand Status: Chronic - Plan 58 year old male s/p closure of wound dehiscence left hand/ring finger finger with left wrist pain Plan: surrounding skin is cleaned with alcohol wipes patient has exposed tendon will need coverage of wound keep the patient npo from midnight will proceed for flap coverage vs wound closure left hand/ring finger tomorrow on 10/13/18
[2018-10-12] MEDS: dilTIAZem CD 240 MG Capsule PO SCH (16:08)
[2018-10-12] MEDS: AMPHOTERICIN B LIPOSOMAL IV.SIG SCH ×2 (17:43)
[2018-10-12] MEDS: WATER IV.SIG SCH ×2 (17:43)
[2018-10-12] MEDS: DEXTROSE 5% IV.SIG SCH ×2 (17:43)
[2018-10-13] MEDS: Baclofen 10 MG Tablet PO SCH ×3 (05:53→21:55)
[2018-10-13] MEDS: Meloxicam 7.5 MG Tablet PO SCH ×2 (05:53→18:03)
[2018-10-13] MEDS ORDERED: Chlorhexidine Gluconate 2% 1 Pack (2 Cloths) TOPICAL ONE (06:30)
[2018-10-13] MEDS ORDERED: Neomycin/Polymyxin G.U. Irrigant 1 ML Ampul ONE (07:17)
[2018-10-13] MEDS ORDERED: Lidocaine PF 2% Inj 10 ML Ampul ONE (07:28)
[2018-10-13] MEDS ORDERED: Bupivacaine PF 0.5% Inj 10 ML Vial ONE (07:28)
[2018-10-13] MEDS: Insulin NovoLOG Aspart Correctional Sugar Inj SQ SCH ×4 (07:30→21:59)
[2018-10-13] MEDS ORDERED: Lidocaine PF 1% Inj 5 ML Syringe OTHER ONE (07:52)
[2018-10-13 07:54] LABS: Calcium 8.8 mg/dL (8.5-10.1); Potassium 4.5 meq/L (3.5-5.1)
[2018-10-13] MEDS: Insulin Detemir Inj 1,000 UNIT/10 ML Vial SQ SCH ×2 (08:14→21:58)
[2018-10-13] MEDS: Senna/Docusate Sodium 8.6/50 MG Tablet PO SCH ×2 (08:14→21:56)
[2018-10-13] MEDS: Ramipril 2.5 MG Capsule PO SCH (08:14)
[2018-10-13] MEDS: Furosemide 20 MG Tablet PO SCH ×2 (08:14→21:56)
[2018-10-13] MEDS: Sodium Chloride 0.9% 2 ML Flush BID IV.FLUSH SCH ×2 (08:14→21:57)
[2018-10-13] MEDS: Gabapentin 300 MG Capsule PO SCH ×3 (08:14→17:46)
[2018-10-13 08:48] LABS: Hematocrit 22.4 % (39.0-51.0); Hemoglobin 7.2 gm/dL (13.0-17.0)
--- NOTE | 2018-10-13 09:02 | P.OP ---
- Preoperative Diagnosis (1) Suppurative tenosynovitis of flexor tendon of left hand Comment: open wound left palm/ring finger - Postoperative Diagnosis (1) Suppurative tenosynovitis of flexor tendon of left hand Comment: open wound left palm/ring finger Date of procedure: 10/13/18 Procedure: wash, debridement and application of dehydrated human amnion/chorion membrane allograft left ring finger/palm Anesthesia: other (general with LMA) Surgeon: Slim Slaughter MD Estimated blood loss (mL): 5 Pathology: none sent Operation and Findings: wound over the junction of palm and ring finger measuring about 2 cms with exposed flexor tendon no purulence
[2018-10-13] MEDS ORDERED: fentaNYL Citrate Inj 100 MCG/2 ML Ampul ONE (09:09)
[2018-10-13] MEDS ORDERED: *morphine SULFATE 4 MG/ML PERIprocedure ONLY ONE (09:15)
[2018-10-13] MEDS ORDERED: *HYDROmorphone PF Inj 1 MG/ML Ampul PERIprocedural Use ONLY ONE (09:22)
--- NOTE | 2018-10-13 09:41 | P.PN ---
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 anticipated 8 to 12 weeks of antifungal for discitis , osteomyelitis due to Portia, stopped Cefoxitin, and continue Biaxin until 10/25/18. 10/10: Stable in his bedroom, asking for IV pain medicine Dilaudid, he has already this medicine on board, he was clear for discharge by Neurosurgery and awaiting final by ID specialist. 10/11: Discussed with nurse the patient developed some rash on his back and right wrist I may seen this are areas of contact his bed was evaluated with Miss Patiño he has wet bed and with many stains for some time there, the nurse states he does not permit to have a shower and also does not accept to change his Sheets and blankets. removed PIA drain yesterday. 10/12: Seen in his bedroom in the presence of nurse Miss Patiño, he has multiple rash areas on his Right wrist and back, continue to encourage to change his Sheets and Blankets, he has to take a shower that he refused to, as per ID specialist he has Catheter related infection from PICC line Recommended to continue Amphotericin B, anticipated 8 to 12 weeks of antifungal for discitis/ Osteomyelitis due to Portia, to monitor renal function and Potassium, Continue Biaxin until 10/25/18. 10/13: Status post Closure of wound dehiscence left hand/ring finger with left wrist pain he will have Flap coverage versus wound closure left hand/ring finger for today. Physical Exam Vital signs: Vital Signs 10/12/18 12:00 10/12/18 16:00 10/12/18 20:00 Temperature 98.0 F 98.5 F 101.1 F H Pulse Rate 74 77 93 H Respiratory Rate 16 16 14 Blood Pressure 97/52 L 90/48 L 103/54 L Pulse Oximetry 93 L 93 L 87 L 10/13/18 00:00 10/13/18 01:57 10/13/18 08:00 Temperature 98.1 F 98.1 F Pulse Rate 86 88 85 Respiratory Rate 18 18 16 Blood Pressure 115/57 L 121/66 Pulse Oximetry 88 L 96 96 10/13/18 09:00 Temperature 98.6 F Pulse Rate 77 Respiratory Rate 12 Blood Pressure 115/54 L Pulse Oximetry 100 Intake & Output 10/12/18 10/13/18 10/13/18 18:59 06:59 18:59 Intake Total 3000 / 3000 1110 / 1110 Output Total 3000 / 3000 800 / 800 Balance 0 / 0 310 / 310 Weight 91.4 kg Intake: IV 390 / 390 Ambisome Inj 435 MG In D5W Inj 390 / 390 390 ML @ 250 mls/hr IV.SIG Q24H ROBBIE Rx#:[id number] Oral 3000 / 3000 720 / 720 Output: Urine 3000 / 3000 800 / 800 Other: Date of Last Bowel Movement 10/11/18 # Bowel Movements 2 Narrative: GENERAL: NAD SKIN: Warm and dry. multiple skin rash areas on back and right wrist. HEAD: Normocephalic. EYES: No scleral icterus. No injection or drainage. NECK: Supple, trachea midline. No JVD or lymphadenopathy. CARDIOVASCULAR: Regular rate and rhythm without murmurs, gallops, or rubs. RESPIRATORY: Breath sounds equal bilaterally. No accessory muscle use. GASTROINTESTINAL: Abdomen soft, non-tender, nondistended. MUSCULOSKELETAL: No cyanosis, or edema. left hand dressed. BACK: Nontender without obvious deformity. No CVA tenderness. - Urinary Catheter Management Indwelling Urethral Catheter Cath placed during this visit: yes, but has since been removed by the nurse Reason for continuing: Decision to DC catheter Removal date: 10/05/18 Removal time: 09:30 Results - Labs CBC & Chem 7: 10/13/18 08:09 10/13/18 06:06 Laboratory Results - last 24 hr 10/12/18 10/12/18 10/12/18 11:21 16:07 19:55 Hgb Hct Sodium Potassium Chloride Carbon Dioxide Anion Gap BUN Creatinine Estimated GFR POC Glucose 417 H 259 H 227 H Random Glucose Calcium Blood Type Antibody Screen 10/13/18 10/13/18 10/13/18 06:06 07:18 08:09 Hgb Hct Sodium 137 Potassium 4.5 Chloride 103 Carbon Dioxide 24.0 Anion Gap 10 BUN 57 H Creatinine 1.07 Estimated GFR 71 L POC Glucose 227 H Random Glucose 174 H Calcium 8.8 Blood Type O Positive Antibody Screen Negative 10/13/18 10/13/18 10/13/18 08:09 08:22 09:06 Hgb 7.2 L Hct 22.4 L Sodium Potassium Chloride Carbon Dioxide Anion Gap BUN Creatinine Estimated GFR POC Glucose 224 H 211 H Random Glucose Calcium Blood Type Antibody Screen - Imaging Venous Doppler Study 09/23/18 13:35 CONCLUSION: 1. Occlusive thrombus in the proximal and mid cephalic vein. 2. Deep venous system is otherwise patent. 3. Heterogeneous hypoechoic collection along the right shoulder which could represent a hematoma and/or seroma. Lumbar Spine MRI 09/25/18 00:00 CONCLUSION: 1. Findings are diagnostic of discitis osteomyelitis at L4-L5 with epidural abscess posterior to the L4 and L5 vertebral body. This epidural material along with facet hypertrophy moderately narrows the spinal canal at this level. There additionally is some perivertebral enhancing material likely representing small perivertebral abscess. It is challenging to compare to the prior study since it was significantly degraded by motion artifact. However, the findings are similar and do not appear improved. 2. There is mild edema within the L2 disc space and minimal endplate irregularity and enhancement of L2. These changes could be secondary to degenerative disc disease but cannot exclude early discitis. Suggest attention to this area at follow-up imaging. Chest X-Ray 09/30/18 14:47 CONCLUSION: No acute cardiopulmonary disease. Lumbar Spine CT 10/01/18 00:00 CONCLUSION: 1. Destructive changes again noted involving the endplates at the L4-5 level consistent with the known discitis/osteomyelitis. There is abnormal soft tissue density the anterior epidural space consistent with the known epidural abscess. This does not appear significantly changed from the MRI examination. There is moderate central canal stenosis at this level. 2. Mild to moderate central canal stenosis also noted at the L2-3 level secondary to disc osteophyte complexes and degenerative change involving the facets. 3. Stable mild anterior spondylolisthesis of L4 on L5. Wrist X-Ray 10/03/18 00:00 CONCLUSION: Osteoarthritic findings of the wrist. Mild distal radioulnar joint narrowing. Cyst or erosion at the lateral aspect of the lunate. Lumbar Spine X-Ray 10/05/18 00:00 CONCLUSION: Postsurgical changes are noted. - Procedures L2-S1 posterior spinal fusion Pedicle screws fixation L2, L3, L4 6.5x50mm and s1 7.5x45, Rods [id number], Spine Wave system Use of 3D fluoroscopy (1) Suppurative tenosynovitis of flexor tendon of left hand Comment: open wound left palm/ring finger - Postoperative Diagnosis (1) Suppurative tenosynovitis of flexor tendon of left hand Comment: open wound left palm/ring finger Date of procedure: 10/13/18 Procedure: wash, debridement and application of dehydrated human amnion/chorion membrane allograft left ring finger/palm Anesthesia: other (general with LMA) Surgeon: Slim Slaughter MD Assessment and Plan - Assessment (1) Osteomyelitis Code(s): M86.9 - Osteomyelitis, unspecified Status: Acute (2) Diabetes Code(s): E11.9 - Type 2 diabetes mellitus without complications Status: Chronic (3) Strain of lumbar region Code(s): S39.012A - Strain of muscle, fascia and tendon of lower back, initial encounter Status: Acute (4) Lumbar radiculopathy Code(s): M54.16 - Radiculopathy, lumbar region Status: Acute (5) Suppurative tenosynovitis of flexor tendon of left hand Code(s): M65.142 - Other infective (teno)synovitis, left hand Status: Chronic (6) Abscess of hand, left Code(s): L02.512 - Cutaneous abscess of left hand Status: Acute (7) Mycobacterium abscessus infection Code(s): A31.9 - Mycobacterial infection, unspecified Status: Acute (8) Malfunction of peripheral inserted central catheter Code(s): T82.598A - Other mechanical complication of other cardiac and vascular devices and implants, initial encounter Status: Acute (9) Antibiotic long-term use Code(s): Z79.2 - shelter (current) use of antibiotics Status: Acute - Plan 58-year-old man with 1. L4-L5 discitis - Neurosurgery following, s/p L5/S1 discectomy and fusion on 10/04 -Intraoperative culture positive for C. Albican, patient currently on amphotericin B since 10/06/18 as well as Cefoxitin 2gm IV Q6H +Biaxin until per ID -Appreciate input from neurosurgery, who has cleared patient for discharge. PIA drain removed 10/10/18 -TLSO brace when out of bed -PT following. -10/12: As per ID specialist Recommended to continue Amphotericin B, anticipated 8 to 12 weeks of antifungal for discitis/ Osteomyelitis due to Portia, to monitor renal function and Potassium, Continue Biaxin until 10/25/18. 2. Chronic pain syndrome, opioid dependence - Required critical care to manage pain following surgery (received methadone IV , ketamine, and and versed on 10/04 to control pain) - Continue gabapentin 300 mg TID - Continue Mobic daily - Clonidine 0.2mg po q8h - Oxycodone 30mg po q4h prn and p.o. Dilaudid - Needs pain management on discharge 3. Suppurative tenosynovitis of flexor tendon of left hand - s/p exploration, wash, repair of wound dehiscence, left palm/ring finger on - Status post Wash debridement and application of dehydrated human amnion/ chorion membrane allograft left ring finger palm. by Doctor Slim Slaughter. 10/13/18 4. Atrial fibrillation - Currently rate-controlled - Restart Eliquis when cleared by neurosurgery - Continue Diltiazem 5. HTN Mild Uncontrol today. - Continue ramipril and furosemide 6. Diabetes mellitus, Uncontrolled - A1c 7.8 - Continue Levemir increased to 35 units AM, and Levemir 20 units at bedtime, Pre meal 5 units of regular insulin. - SSI with Accu-Cheks per protocol 7. Right shoulder pain-improved - No trauma, possibly related to sleep position - Pain control as above 8. Anemia of acute blood loss -Monitor H&H and transfuse for hemoglobin less than 7 9. rash probable related to contact with wet bed encourage ambulation and try to sit down instead of staying in bed on Supine position. as per ID probable from antibiotics. but I see contact areas only with rash. DVT prophylaxis: SCDs Code Status: Full code. Discussed Condition With: patient and Nurse. Discharge Planning: Once cleared by ID specialist. (1) Osteomyelitis Qualifiers: Osteomyelitis type: unspecified type Osteomyelitis location: unspecified site Qualified Code(s): M86.9 - Osteomyelitis, unspecified (3) Strain of lumbar region Qualifiers: Encounter type: initial encounter Qualified Code(s): S39.012A - Strain of muscle, fascia and tendon of lower back, initial encounter (8) Malfunction of peripheral inserted central catheter Qualifiers: Encounter type: initial encounter Qualified Code(s): T82.598A - Other mechanical complication of other cardiac and vascular devices and implants, initial encounter
--- NOTE | 2018-10-13 11:59 | MP ---
cc: Slim Slaughter MD DATE OF OPERATION: 10/13/2018 PREOPERATIVE DIAGNOSIS: Chronic flexor tenosynovitis, left ring finger/palm, with open wound. POSTOPERATIVE DIAGNOSIS: Chronic flexor tenosynovitis, left ring finger/palm, with open wound. PROCEDURE PERFORMED: Wash, debridement and application of dehydrated human amnion/chorion membrane allograft, left ring finger/palm. SURGEON: Slim Slaughter MD ANESTHESIA: General with LMA. ESTIMATED BLOOD LOSS: Minimal. TOURNIQUET TIME: No tourniquet was used. DISPOSITION: To PACU stable. INDICATIONS: The patient is a 58-year-old male who initially presented with chronic flexor tenosynovitis of the left ring finger. The patient underwent multiple debridements. In the past, he grew Mycobacterium was started on antibiotics. He presented with recurrence of infection and underwent multiple debridements. He also had wound dehiscence, which was closed with sutures, which opened up, resulting in an open wound at the junction of the left ring finger and palm with exposed flexor tendon. The patient had no active signs of infection. A decision was made to proceed with covering the open wound with an flap vs allograft. He was explained the risks and benefits of the procedure. DESCRIPTION OF PROCEDURE: The patient was brought to the operating room. Under general anesthesia with LMA, the left upper extremity was thoroughly prepped and draped. Intraoperative findings included an open wound at the junction of the ring finger and the palm measuring about 2 cm with exposed flexor tendon. No purulence was noted in the region. Granulation tissue around the region, which was debrided using a rongeur as well as a curette. The tendon appeared to be viable. bleeding was controlled with pressure. Thorough wash was given using normal saline mixed with irrigant. About half a liter of solution was used. Decision was made to proceed with allograft application. Dehydrated human amnion/chorion membrane allograft (AmnioFix) was opened up and was cut to size and placed over the region. This was held in place with an Adaptic dressing, 4 x 4's were applied and they were held in place by Sof-Rol and a bias hand wrap. He had good distal circulation at the end of the procedure. The patient was recovered and sent to the recovery room in stable condition. The plan will be to change the dressing in 5 to 7 days' time. MD Anthony Palacio , 09:07 AM , 09:15 AM SETH
[2018-10-13] MEDS: dilTIAZem CD 240 MG Capsule PO SCH (15:54)
[2018-10-13] MEDS: DEXTROSE 5% IV.SIG SCH ×2 (18:04)
[2018-10-13] MEDS: WATER IV.SIG SCH ×2 (18:04)
[2018-10-13] MEDS: AMPHOTERICIN B LIPOSOMAL IV.SIG SCH ×2 (18:04)
[2018-10-14] MEDS: Baclofen 10 MG Tablet PO SCH ×3 (05:20→22:18)
[2018-10-14] MEDS: Meloxicam 7.5 MG Tablet PO SCH ×2 (05:20→17:27)
[2018-10-14] MEDS: Furosemide 20 MG Tablet PO SCH ×2 (09:10→22:18)
[2018-10-14] MEDS: Senna/Docusate Sodium 8.6/50 MG Tablet PO SCH ×2 (09:10→22:18)
[2018-10-14] MEDS: Sodium Chloride 0.9% 2 ML Flush BID IV.FLUSH SCH ×2 (09:10→22:23)
[2018-10-14] MEDS: Ramipril 2.5 MG Capsule PO SCH (09:10)
[2018-10-14] MEDS: Gabapentin 300 MG Capsule PO SCH ×3 (09:10→17:27)
[2018-10-14] MEDS: Insulin Detemir Inj 1,000 UNIT/10 ML Vial SQ SCH ×2 (09:11→22:22)
[2018-10-14] MEDS: Insulin NovoLOG Aspart Correctional Sugar Inj SQ SCH ×4 (09:11→22:22)
[2018-10-14] MEDS: Micafungin Inj 150 MG in Sodium Chlor 0.9% Inj 100 ML IV.SIG SCH (12:10)
[2018-10-14] MEDS ORDERED: Insulin Detemir Inj 1,000 UNIT/10 ML Vial SQ SCH ×2 (16:05)
--- NOTE | 2018-10-14 16:13 | P.PN ---
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 anticipated 8 to 12 weeks of antifungal for discitis , osteomyelitis due to Portia, stopped Cefoxitin, and continue Biaxin until 10/25/18. 10/10: Stable in his bedroom, asking for IV pain medicine Dilaudid, he has already this medicine on board, he was clear for discharge by Neurosurgery and awaiting final by ID specialist. 10/11: Discussed with nurse the patient developed some rash on his back and right wrist I may seen this are areas of contact his bed was evaluated with Miss Patiño he has wet bed and with many stains for some time there, the nurse states he does not permit to have a shower and also does not accept to change his Sheets and blankets. removed PIA drain yesterday. 10/12: Seen in his bedroom in the presence of nurse Miss Patiño, he has multiple rash areas on his Right wrist and back, continue to encourage to change his Sheets and Blankets, he has to take a shower that he refused to, as per ID specialist he has Catheter related infection from PICC line Recommended to continue Amphotericin B, anticipated 8 to 12 weeks of antifungal for discitis/ Osteomyelitis due to Portia, to monitor renal function and Potassium, Continue Biaxin until 10/25/18. 10/13: Status post Closure of wound dehiscence left hand/ring finger with left wrist pain he will have Flap coverage versus wound closure left hand/ring finger for today. 10/14: Patient discussed with nurse Miss Santillan, no nausea, vomit or diarrhea, asking for breakthrough pain will start Morphine breakthrough pain, asked for ENT to evaluate his Dysphonia the patient states he did not have this before coming to this facility. Physical Exam Vital signs: Vital Signs 10/13/18 20:00 10/14/18 00:00 10/14/18 08:00 Temperature 97.4 F L 97.4 F L 97.3 F L Pulse Rate 69 63 65 Respiratory Rate 17 15 17 Blood Pressure 134/56 L 137/60 167/77 H Pulse Oximetry 92 L 99 97 10/14/18 12:00 Temperature 97.4 F L Pulse Rate 68 Respiratory Rate 16 Blood Pressure 155/64 H Pulse Oximetry 98 Intake & Output 10/13/18 10/14/18 10/14/18 18:59 06:59 18:59 Intake Total 2390 / 2390 720 / 720 100 / 100 Output Total 3155 / 3155 625 / 625 Balance -765 / -765 95 / 95 100 / 100 Weight 95.1 kg Intake: IV 390 / 390 100 / 100 Ambisome Inj 435 MG In D5W Inj 390 / 390 390 ML @ 250 mls/hr IV.SIG Q24H ROBBIE Rx#:[id number] Mycamine Inj 150 MG In NS Inj 100 / 100 100 ML @ 100 mls/hr IV.SIG Q24H ROBBIE Rx#:[id number] Oral 1200 / 1200 720 / 720 Anesthesia Amount 800 / 800 Output: Urine 3150 / 3150 625 / 625 Estimated Blood Loss 5 / 5 Other: Date of Last Bowel Movement 10/11/18 10/13/18 # Bowel Movements 0 Narrative: GENERAL: NAD SKIN: Warm and dry. multiple skin rash areas on back and right wrist. HEAD: Normocephalic. EYES: No scleral icterus. No injection or drainage. NECK: Supple, trachea midline. No JVD or lymphadenopathy. Dysphonia CARDIOVASCULAR: Regular rate and rhythm without murmurs, gallops, or rubs. RESPIRATORY: Breath sounds equal bilaterally. No accessory muscle use. GASTROINTESTINAL: Abdomen soft, non-tender, nondistended. MUSCULOSKELETAL: No cyanosis, or edema. left hand dressed. BACK: Nontender without obvious deformity. No CVA tenderness. - Urinary Catheter Management Indwelling Urethral Catheter Cath placed during this visit: yes, but has since been removed by the nurse Reason for continuing: Decision to DC catheter Removal date: 10/05/18 Removal time: 09:30 Results - Labs CBC & Chem 7: 10/13/18 08:09 10/13/18 06:06 Laboratory Results - last 24 hr 10/13/18 10/13/18 10/13/18 15:55 21:58 23:01 POC Glucose 418 H 550 H* 477 H* 10/14/18 10/14/18 08:01 12:08 POC Glucose 273 H 275 H - Imaging Venous Doppler Study 09/23/18 13:35 CONCLUSION: 1. Occlusive thrombus in the proximal and mid cephalic vein. 2. Deep venous system is otherwise patent. 3. Heterogeneous hypoechoic collection along the right shoulder which could represent a hematoma and/or seroma. Lumbar Spine MRI 09/25/18 00:00 CONCLUSION: 1. Findings are diagnostic of discitis osteomyelitis at L4-L5 with epidural abscess posterior to the L4 and L5 vertebral body. This epidural material along with facet hypertrophy moderately narrows the spinal canal at this level. There additionally is some perivertebral enhancing material likely representing small perivertebral abscess. It is challenging to compare to the prior study since it was significantly degraded by motion artifact. However, the findings are similar and do not appear improved. 2. There is mild edema within the L2 disc space and minimal endplate irregularity and enhancement of L2. These changes could be secondary to degenerative disc disease but cannot exclude early discitis. Suggest attention to this area at follow-up imaging. Chest X-Ray 09/30/18 14:47 CONCLUSION: No acute cardiopulmonary disease. Lumbar Spine CT 10/01/18 00:00 CONCLUSION: 1. Destructive changes again noted involving the endplates at the L4-5 level consistent with the known discitis/osteomyelitis. There is abnormal soft tissue density the anterior epidural space consistent with the known epidural abscess. This does not appear significantly changed from the MRI examination. There is moderate central canal stenosis at this level. 2. Mild to moderate central canal stenosis also noted at the L2-3 level secondary to disc osteophyte complexes and degenerative change involving the facets. 3. Stable mild anterior spondylolisthesis of L4 on L5. Wrist X-Ray 10/03/18 00:00 CONCLUSION: Osteoarthritic findings of the wrist. Mild distal radioulnar joint narrowing. Cyst or erosion at the lateral aspect of the lunate. Lumbar Spine X-Ray 10/05/18 00:00 CONCLUSION: Postsurgical changes are noted. - Procedures L2-S1 posterior spinal fusion Pedicle screws fixation L2, L3, L4 6.5x50mm and s1 7.5x45, Rods [id number], Spine Wave system Use of 3D fluoroscopy (1) Suppurative tenosynovitis of flexor tendon of left hand Comment: open wound left palm/ring finger - Postoperative Diagnosis (1) Suppurative tenosynovitis of flexor tendon of left hand Comment: open wound left palm/ring finger Date of procedure: 10/13/18 Procedure: wash, debridement and application of dehydrated human amnion/chorion membrane allograft left ring finger/palm Anesthesia: other (general with LMA) Surgeon: Slim Slaughter MD Assessment and Plan - Assessment (1) Osteomyelitis Code(s): M86.9 - Osteomyelitis, unspecified Status: Acute (2) Diabetes Code(s): E11.9 - Type 2 diabetes mellitus without complications Status: Chronic (3) Strain of lumbar region Code(s): S39.012A - Strain of muscle, fascia and tendon of lower back, initial encounter Status: Acute (4) Lumbar radiculopathy Code(s): M54.16 - Radiculopathy, lumbar region Status: Acute (5) Suppurative tenosynovitis of flexor tendon of left hand Code(s): M65.142 - Other infective (teno)synovitis, left hand Status: Chronic (6) Abscess of hand, left Code(s): L02.512 - Cutaneous abscess of left hand Status: Acute (7) Mycobacterium abscessus infection Code(s): A31.9 - Mycobacterial infection, unspecified Status: Acute (8) Malfunction of peripheral inserted central catheter Code(s): T82.598A - Other mechanical complication of other cardiac and vascular devices and implants, initial encounter Status: Acute (9) Antibiotic long-term use Code(s): Z79.2 - assisted (current) use of antibiotics Status: Acute - Plan 58-year-old man with 1. L4-L5 discitis - Neurosurgery following, s/p L5/S1 discectomy and fusion on 10/04 -Intraoperative culture positive for C. Albican, patient currently on amphotericin B since 10/06/18 as well as Cefoxitin 2gm IV Q6H +Biaxin until per ID -Appreciate input from neurosurgery, who has cleared patient for discharge. PIA drain removed 10/10/18 -TLSO brace when out of bed -PT following. -10/12: As per ID specialist Recommended to continue Amphotericin B, anticipated 8 to 12 weeks of antifungal for discitis/ Osteomyelitis due to Portia, to monitor renal function and Potassium, Continue Biaxin until 10/25/18. 2. Chronic pain syndrome, opioid dependence - Required critical care to manage pain following surgery (received methadone IV , ketamine, and and versed on 10/04 to control pain) - Continue gabapentin 300 mg TID - Continue Mobic daily - Clonidine 0.2mg po q8h - Oxycodone 30mg po q4h prn and p.o. Dilaudid - Added morphine 2 mg for breakthrough pain. 3. Suppurative tenosynovitis of flexor tendon of left hand - s/p exploration, wash, repair of wound dehiscence, left palm/ring finger on - Status post Wash debridement and application of dehydrated human amnion/ chorion membrane allograft left ring finger palm. by Doctor Slim Slaughter. 10/13/18 4. Atrial fibrillation - Currently rate-controlled - Restart Eliquis when cleared by neurosurgery - Continue Diltiazem 5. HTN Mild Uncontrol today. - Continue ramipril and furosemide 6. Diabetes mellitus, Uncontrolled - A1c 7.8 - Continue Levemir increased to 40 units AM, and Levemir 25 units at bedtime, Pre meal 5 units of regular insulin. - SSI with Accu-Cheks per protocol 7. Right shoulder pain-improved - No trauma, possibly related to sleep position - Pain control as above 8. Anemia of acute blood loss -Monitor H&H and transfuse for hemoglobin less than 7 9. rash probable related to contact with wet bed encourage ambulation and try to sit down instead of staying in bed on Supine position. as per ID probable from antibiotics. but I see contact areas only with rash. 10. Dysphonia asked for ENT evaluation. DVT prophylaxis: SCDs Code Status: Full Code. Discussed Condition With: Patient and Nurse Miss Santillan Discharge Planning: Once cleared by ID specialist. (1) Osteomyelitis Qualifiers: Osteomyelitis type: unspecified type Osteomyelitis location: unspecified site Qualified Code(s): M86.9 - Osteomyelitis, unspecified (3) Strain of lumbar region Qualifiers: Encounter type: initial encounter Qualified Code(s): S39.012A - Strain of muscle, fascia and tendon of lower back, initial encounter (8) Malfunction of peripheral inserted central catheter Qualifiers: Encounter type: initial encounter Qualified Code(s): T82.598A - Other mechanical complication of other cardiac and vascular devices and implants, initial encounter
[2018-10-14] MEDS: dilTIAZem CD 240 MG Capsule PO SCH (17:27)
[2018-10-15] MEDS: Baclofen 10 MG Tablet PO SCH ×3 (06:24→21:24)
[2018-10-15] MEDS: Meloxicam 7.5 MG Tablet PO SCH ×2 (06:24→17:08)
--- NOTE | 2018-10-15 07:01 | P.CON ---
History of Present Illness Service: ENT Consult date: 10/15/18 Reason for Consult: Hoarseness after procedure Primary Care Provider: UNKNOWN Chief Complaint: back pain History of Present Illness: 58 year old male L4-L5 osteomyelitis. Admitted on IV meds. He had a lower back procedure 10/04. Subsequent to that he has had hoarseness, manifesting as a week voice. He feels this occurred after being suctioned for heavy secretions in [place] after his procedure. He is taking PO with some added care but is not aspirating. He has no pain, no odynophagia. Review of Systems Ears, Nose, Mouth, and Throat: Reports change in voice, Reports difficulty swallowing, Denies dry mouth, Denies mouth lesions, Denies nasal obstruction, Denies pain with swallowing PMFSH - History History Provided By: Patient, Medical Record - Medical History Medical History: Medical History (Last Reviewed 10/09/18 @ 09:34 by Sonia Najera) MDRO (multiple drug resistant organisms) resistance Onset Date: ~10/04/18 Amputated toe GERD (gastroesophageal reflux disease) Hyperlipidemia Afib Back pain Diabetes Hypertension Osteomyelitis - Surgical History Surgical History: Surgical History (Last Reviewed 10/09/18 @ 09:34 by Sonia Najera) H/O foot surgery - Family History Family History: Family History (Last Reviewed 10/04/18 @ 19:49 by Kiko Mcmanus MD) Other Coronary artery disease - Tobacco History Second Hand Smoke Exposure: No Smoking Status: Never smoker - Alcohol History How Often Do You Have a Drink Containing Alcohol: Never - Substance Use History Substance History: No History of Abuse - Travel History Recent Travel in the [place] Within the Last 8 Weeks: No Recent Travel Out of the Country Within the Last 8 Weeks: No - Immunization History Tetanus Immunization: <5 Years Hx Influenza Vaccine This Season: No Medications and Allergies Active Medications: Active Medications Acetaminophen (Tylenol) 650 mg PO Q4H PRN PRN Reason: FEVER > 100.4 F Al Hydroxide/Mg Hydroxide (Milk Of Magnesia Liq) 30 ml PO Q12H PRN PRN Reason: Mild Constipation Last Admin: 09/29/18 09:03 Dose: 30 ml Apixaban (Eliquis) 5 mg PO BID ROBBIE Last Admin: 10/01/18 21:53 Dose: Not Given Baclofen (Lioresal) 10 mg PO Q8HR ROBBIE Last Admin: 10/15/18 06:24 Dose: 10 mg Bisacodyl (Dulcolax Supp) 10 mg RECTAL DAILY PRN PRN Reason: SEVERE CONSITIPATION Chlorhexidine Gluconate (Chlorhexidine 2% Cloth) 3 pack TOPICAL RISK MANAGER [facility] Clarithromycin (Biaxin) 500 mg PO Q12H [facility] Last Admin: 10/15/18 06:24 Dose: 500 mg Clonidine HCl (Catapres) 0.2 mg PO Q8HR [facility] Last Admin: 10/15/18 06:24 Dose: 0.2 mg Dextrose (D50w Vial) 50 ml IV.PUSH UNSCH PRN PRN Reason: PER HYPOGLYCEMIA PROTOCOL Diltiazem HCl (Cardizem Cd 24hr) 240 mg PO Q24H [facility] Last Admin: 10/14/18 17:27 Dose: 240 mg Furosemide (Lasix) 20 mg PO BID [facility] Last Admin: 10/14/18 22:18 Dose: 20 mg Gabapentin (Neurontin) 300 mg PO TID [facility] Last Admin: 10/14/18 17:27 Dose: 300 mg Glucagon (Glucagon Inj) 1 mg OTHER PRN PRN PRN Reason: for Hypoglycemia Protocol Hydrocortisone Acetate (Hydrocortisone 1% Cream) 1 applicatio TOPICAL TID [facility] Last Admin: 10/14/18 17:59 Dose: Not Given Hydromorphone HCl (Dilaudid) 2 mg PO Q4H PRN PRN Reason: PAIN SCALE 6 TO 10 Last Admin: 10/13/18 21:55 Dose: 2 mg Micafungin Sodium 150 mg/ (Sodium Chloride) 100 mls @ 100 mls/hr IV.SIG Q24H [facility] Last Infusion: 10/14/18 13:24 Dose: Infused Insulin Aspart (Novolog Insulin Correctional Sugar Inj) 0 unit SQ ACHS [facility]; Protocol Last Admin: 10/14/18 22:22 Dose: 4 unit Insulin Detemir (Levemir Inj) 25 unit SQ HS [facility] Last Admin: 10/14/18 22:22 Dose: 25 unit Insulin Detemir (Levemir Inj) 40 unit SQ DAILY [facility] Lactulose (Lactulose Liq) 30 ml PO DAILY PRN PRN Reason: SEVERE CONSITIPATION Meloxicam (Mobic) 7.5 mg PO Q12H [facility] Last Admin: 10/15/18 06:24 Dose: 7.5 mg Naloxone HCl (Narcan Inj) 0.4 mg IV.PUSH PRN PRN PRN Reason: SEE LABEL COMMENTS Naloxone HCl (Narcan Inj) 0.4 mg IV.PUSH UNSCH PRN PRN Reason: SEE LABEL COMMENTS Ondansetron HCl (Zofran Inj) 4 mg IV.PUSH Q6H PRN PRN Reason: NAUSEA OR VOMITING Last Admin: 10/01/18 02:56 Dose: 4 mg Oxycodone HCl (Roxicodone) 30 mg PO Q4H PRN PRN Reason: PAIN 1-10 Last Admin: 10/15/18 06:24 Dose: 30 mg Pantoprazole Sodium (Protonix) 40 mg PO DAILY [facility] Last Admin: 10/14/18 09:10 Dose: 40 mg Ramipril (Altace) 2.5 mg PO DAILY [facility] Last Admin: 10/14/18 09:10 Dose: 2.5 mg Senna/Docusate Sodium (Aliyah-Colace) 1 tab PO BID [facility] Last Admin: 10/14/18 22:18 Dose: 1 tab Sennosides (Senokot) 17.2 mg PO Q12H PRN PRN Reason: Moderate Constipation Sodium Chloride (Ns Flush) 2 ml IV.FLUSH BID [facility] Last Admin: 10/14/18 22:23 Dose: 2 ml Sodium Chloride (Ns Flush) 2 ml IV.FLUSH PRN PRN PRN Reason: FLUSH AFTER USING IV ACCESS Last Admin: 10/07/18 11:33 Dose: 2 ml Allergies Allergy/AdvReac Type Severity Reaction Status Date / Time No Known Drug Allergies Allergy none Verified 08/06/18 15:59 *MDRO Multi-Drug Resistant AdvReac Unknown MRSA Uncoded 06/16/17 16:34 Organism Home Medications Medication Instructions Recorded Confirmed Type apixaban [Eliquis] 5 mg PO BID 06/09/18 09/23/18 History diltiazem HCl 240 mg PO DAILY 06/09/18 09/23/18 History furosemide 20 mg PO BID 06/09/18 09/23/18 History insulin glargine [Lantus Solostar 50 unit SUB-Q BID 06/09/18 09/23/18 History U-100 Insulin] pantoprazole [Protonix] 40 mg PO DAILY 06/09/18 09/23/18 History ramipril 2.5 mg PO DAILY 06/09/18 09/23/18 History oxycodone 30 mg PO Q4H PRN 07/22/18 09/23/18 History Physical Exam Vital signs: Vital Signs 10/14/18 08:00 10/14/18 12:00 10/14/18 16:00 Temperature 97.3 F L 97.4 F L 97.7 F Pulse Rate 65 68 69 Respiratory Rate 18 Blood Pressure 167/77 H 155/64 H 170/85 H Pulse Oximetry 97 98 98 10/14/18 20:00 10/15/18 00:00 10/15/18 04:00 Temperature 97.7 F 98.3 F 98.5 F Pulse Rate 70 62 59 L Respiratory Rate 18 Blood Pressure 151/71 H 119/56 L 114/56 L Pulse Oximetry 98 95 98 Intake & Output 10/14/18 10/14/18 10/15/18 06:59 18:59 06:59 Intake Total 720 / 720 1200 / 1200 Output Total 625 / 625 3200 / 3200 800 / 800 Balance 95 / 95 -2000 / -2000 -800 / -800 Weight 95.1 kg Intake: IV 100 / 100 Mycamine Inj 150 MG In NS Inj 100 / 100 100 ML @ 100 mls/hr IV.SIG Q24H ROBBIE Rx#:[id number] Oral 720 / 720 1100 / 1100 Output: Urine 625 / 625 3200 / 3200 800 / 800 Other: Date of Last Bowel Movement 10/13/18 # Bowel Movements 0 - Constitutional no acute distress, average body habitus - Routine HEENT Exam Head: Present: normocephalic, atraumatic Eye: Present: EOMI. Absent: nystagmus ENT: Present: mucous membranes moist, oropharynx clear (Trans nasal fiberoptic laryngoscopy completed. There is no mass of the pharynx, larynx or base of tongue. The vocal cord motion is assymetric with diminished left cord movement. There is some compensation of the right cord crossing the midline. There is no laryngeal mass. ), nares patent, septal deviation - Urinary Catheter Management Indwelling Urethral Catheter Cath placed during this visit: yes, but has since been removed by the nurse Reason for continuing: Decision to DC catheter Removal date: 10/05/18 Removal time: 09:30 Results - Labs CBC & Chem 7: 10/13/18 08:09 10/13/18 06:06 Labs: Laboratory Results - last 24 hr 10/14/18 10/14/18 10/14/18 08:01 12:08 16:42 POC Glucose 273 H 275 H 173 H 10/14/18 22:21 POC Glucose 224 H Assessment and Plan - Assessment (1) Hoarse voice quality Code(s): R49.0 - Dysphonia Status: Acute - Plan Left vocal cord paresis. Patient reports voice was normal before procedure. He woke up in [place] with this. He had heavy secretions and is concerned that suctioning may have caused this. It may be related to edema after intubation. It is unlikely that suctioning with a Yankauer suction caused the finding. It has been described with uneventful intubation related to ET tube placement. It may be temporary. Will order a CT of the neck and chest to evaluate the course of the recurrent laryngeal nerve and be sure there is no lesion. Will ask Speech Therapy to eval for swallowing and for aid in voice strengthening. Will follow up after CT.
[2018-10-15 08:20] LABS: Baso # (Auto) 0.1 th/mm3 (0.0-0.2); Baso % (Auto) 0.7 % (0.0-2.0); Eos # (Auto) 0.2 th/mm3 (0.0-0.4); Eos % (Auto) 1.1 % (0.0-4.0); Hematocrit 21.7 % (39.0-51.0); Hemoglobin 7.1 gm/dL (13.0-17.0); Lymph # (Auto) 2.2 th/mm3 (1.0-4.8); Lymph % (Auto) 12.3 % (9.0-44.0); Mean Corpuscular HGB Conc 32.9 % (32.0-36.0); Mean Corpuscular Hemoglobin 25.8 pg (27.0-34.0); Mean Corpuscular Volume 78.4 fL (80.0-100.0); Mean Platelet Volume 6.3 fL (7.0-11.0); Mono # (Auto) 1.5 th/mm3 (0.0-0.9); Mono % (Auto) 8.5 % (0.0-8.0); Neut # (Auto) 13.7 th/mm3 (1.8-7.7); Neut % (Auto) 77.4 % (16.0-70.0); Platelet Count 592 th/mm3 (150-450); Red Blood Count 2.77 mil/mm3 (4.50-5.90); Red Cell Distribution Width 16.7 % (11.6-17.2); White Blood Count 17.6 th/mm3 (4.0-11.0)
[2018-10-15 08:46] LABS: Calcium 8.6 mg/dL (8.5-10.1); Carbon Dioxide 25.2 meq/L (21.0-32.0); Magnesium 2.1 mg/dL (1.5-2.5); Potassium 5.1 meq/L (3.5-5.1)
[2018-10-15] MEDS: Furosemide 20 MG Tablet PO SCH ×2 (08:48→21:24)
[2018-10-15] MEDS: Ramipril 2.5 MG Capsule PO SCH (08:48)
[2018-10-15] MEDS: Senna/Docusate Sodium 8.6/50 MG Tablet PO SCH ×2 (08:48→21:24)
[2018-10-15] MEDS: Sodium Chloride 0.9% 2 ML Flush BID IV.FLUSH SCH ×2 (08:49→21:25)
[2018-10-15] MEDS: Gabapentin 300 MG Capsule PO SCH ×3 (08:49→17:08)
[2018-10-15] MEDS: Insulin NovoLOG Aspart Correctional Sugar Inj SQ SCH ×4 (08:51→21:26)
[2018-10-15 09:00] LABS: Lymphocytes 14 % (9-44); Metamyelocytes 1 % (0-1); Monocytes 5 % (0-8); Myelocytes 4 % (0-0)
[2018-10-15] MEDS ORDERED: Insulin Detemir Inj 1,000 UNIT/10 ML Vial SQ SCH (09:00)
[2018-10-15 09:01] LABS: Platelet Morphology Normal (Normal)
[2018-10-15] MEDS: Micafungin Inj 150 MG in Sodium Chlor 0.9% Inj 100 ML IV.SIG SCH (11:21)
--- NOTE | 2018-10-15 11:21 | P.PN ---
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 anticipated 8 to 12 weeks of antifungal for discitis , osteomyelitis due to Portia, stopped Cefoxitin, and continue Biaxin until 10/25/18. 10/10: Stable in his bedroom, asking for IV pain medicine Dilaudid, he has already this medicine on board, he was clear for discharge by Neurosurgery and awaiting final by ID specialist. 10/11: Discussed with nurse the patient developed some rash on his back and right wrist I may seen this are areas of contact his bed was evaluated with Miss Patiño he has wet bed and with many stains for some time there, the nurse states he does not permit to have a shower and also does not accept to change his Sheets and blankets. removed PIA drain yesterday. 10/12: Seen in his bedroom in the presence of nurse Miss Patiño, he has multiple rash areas on his Right wrist and back, continue to encourage to change his Sheets and Blankets, he has to take a shower that he refused to, as per ID specialist he has Catheter related infection from PICC line Recommended to continue Amphotericin B, anticipated 8 to 12 weeks of antifungal for discitis/ Osteomyelitis due to Portia, to monitor renal function and Potassium, Continue Biaxin until 10/25/18. 10/13: Status post Closure of wound dehiscence left hand/ring finger with left wrist pain he will have Flap coverage versus wound closure left hand/ring finger for today. 10/14: Patient discussed with nurse Miss Santillan, no nausea, vomit or diarrhea, asking for breakthrough pain will start Morphine breakthrough pain, asked for ENT to evaluate his Dysphonia the patient states he did not have this before coming to this facility. 10/15: Seen by ENT specialist due to Dysphonia, found with Left Vocal Cord Paresis, ,may be related to Intubation may be temporary, CT ordered found left Supraclavicular adenopathy, Speech therapy following and will need Speech therapy as outpatient, also needs rehab on discharge, no nausea, vomit or diarrhea. Physical Exam Vital signs: Vital Signs 10/14/18 12:00 10/14/18 16:00 10/14/18 20:00 Temperature 97.4 F L 97.7 F 97.7 F Pulse Rate 68 69 70 Respiratory Rate 18 Blood Pressure 155/64 H 170/85 H 151/71 H Pulse Oximetry 98 98 98 10/15/18 00:00 10/15/18 04:00 10/15/18 08:00 Temperature 98.3 F 98.5 F 97.3 F L Pulse Rate 62 59 L 60 Respiratory Rate 18 18 16 Blood Pressure 119/56 L 114/56 L 123/56 L Pulse Oximetry 95 98 93 L Intake & Output 10/14/18 10/15/18 10/15/18 18:59 06:59 18:59 Intake Total 1200 / 1200 884 / 884 Output Total 3200 / 3200 1100 / 1100 Balance -1999 / -1999 -216 / -216 Weight 95.6 kg Intake: IV 100 / 100 Mycamine Inj 150 MG In NS Inj 100 / 100 100 ML @ 100 mls/hr IV.SIG Q24H ROBBIE Rx#:[id number] Oral 1100 / 1100 884 / 884 Output: Urine 3200 / 3200 1100 / 1100 Other: Date of Last Bowel Movement 10/13/18 # Bowel Movements 0 Narrative: GENERAL: NAD SKIN: Warm and dry. multiple skin rash areas on back and right wrist. HEAD: Normocephalic. EYES: No scleral icterus. No injection or drainage. NECK: Supple, trachea midline. No JVD or lymphadenopathy. Dysphonia CARDIOVASCULAR: Regular rate and rhythm without murmurs, gallops, or rubs. RESPIRATORY: Breath sounds equal bilaterally. No accessory muscle use. GASTROINTESTINAL: Abdomen soft, non-tender, nondistended. MUSCULOSKELETAL: No cyanosis, or edema. left hand dressed. BACK: Nontender without obvious deformity. No CVA tenderness. - Urinary Catheter Management Indwelling Urethral Catheter Cath placed during this visit: yes, but has since been removed by the nurse Reason for continuing: Decision to DC catheter Removal date: 10/05/18 Removal time: 09:30 Results - Labs CBC & Chem 7: 10/15/18 07:39 10/15/18 07:39 Laboratory Results - last 24 hr 10/14/18 10/14/18 10/14/18 12:08 16:42 22:21 WBC RBC Hgb Hct MCV MCH MCHC RDW Plt Count MPV Prelim Diff (Auto) Neut % (Auto) Lymph % (Auto) [place]well % (Auto) Eos % (Auto) Baso % (Auto) Neut # (Auto) Lymph # (Auto) [place]well # (Auto) Eos # (Auto) Baso # (Auto) WBC Differential Seg Neuts % (Manual) Lymphocytes % (Manual) Monocytes % (Manual) Metamyelocytes % (Man) Myelocytes % (Man) Abs Neuts (Manual) Differential Comment Platelet Estimate Platelet Morphology Sodium Potassium Chloride Carbon Dioxide Anion Gap BUN Creatinine Estimated GFR POC Glucose 275 H 173 H 224 H Random Glucose Calcium Magnesium 10/15/18 10/15/18 10/15/18 07:39 07:39 07:51 WBC 17.6 H RBC 2.77 L Hgb 7.1 L Hct 21.7 L MCV 78.4 L MCH 25.8 L MCHC 32.9 RDW 16.7 Plt Count 592 H D MPV 6.3 L Prelim Diff (Auto) Slide review pending Neut % (Auto) 77.4 H Lymph % (Auto) 12.3 Caswell % (Auto) 8.5 H Eos % (Auto) 1.1 Baso % (Auto) 0.7 Neut # (Auto) 13.7 H Lymph # (Auto) 2.2 Caswell # (Auto) 1.5 H Eos # (Auto) 0.2 Baso # (Auto) 0.1 WBC Differential Manual diff final Seg Neuts % (Manual) 76 H Lymphocytes % (Manual) 14 Monocytes % (Manual) 5 Metamyelocytes % (Man) 1 Myelocytes % (Man) 4 H Abs Neuts (Manual) 14.3 H Differential Comment . Platelet Estimate High H Platelet Morphology Normal Sodium 137 Potassium 5.1 Chloride 103 Carbon Dioxide 25.2 Anion Gap 9 BUN 61 H Creatinine 1.31 H Estimated GFR 56 L POC Glucose 266 H Random Glucose 222 H Calcium 8.6 Magnesium 2.1 - Imaging Venous Doppler Study 09/23/18 13:35 CONCLUSION: 1. Occlusive thrombus in the proximal and mid cephalic vein. 2. Deep venous system is otherwise patent. 3. Heterogeneous hypoechoic collection along the right shoulder which could represent a hematoma and/or seroma. Lumbar Spine MRI 09/25/18 00:00 CONCLUSION: 1. Findings are diagnostic of discitis osteomyelitis at L4-L5 with epidural abscess posterior to the L4 and L5 vertebral body. This epidural material along with facet hypertrophy moderately narrows the spinal canal at this level. There additionally is some perivertebral enhancing material likely representing small perivertebral abscess. It is challenging to compare to the prior study since it was significantly degraded by motion artifact. However, the findings are similar and do not appear improved. 2. There is mild edema within the L2 disc space and minimal endplate irregularity and enhancement of L2. These changes could be secondary to degenerative disc disease but cannot exclude early discitis. Suggest attention to this area at follow-up imaging. Chest X-Ray 09/30/18 14:47 CONCLUSION: No acute cardiopulmonary disease. Lumbar Spine CT 10/01/18 00:00 CONCLUSION: 1. Destructive changes again noted involving the endplates at the L4-5 level consistent with the known discitis/osteomyelitis. There is abnormal soft tissue density the anterior epidural space consistent with the known epidural abscess. This does not appear significantly changed from the MRI examination. There is moderate central canal stenosis at this level. 2. Mild to moderate central canal stenosis also noted at the L2-3 level secondary to disc osteophyte complexes and degenerative change involving the facets. 3. Stable mild anterior spondylolisthesis of L4 on L5. Wrist X-Ray 10/03/18 00:00 CONCLUSION: Osteoarthritic findings of the wrist. Mild distal radioulnar joint narrowing. Cyst or erosion at the lateral aspect of the lunate. Lumbar Spine X-Ray 10/05/18 00:00 CONCLUSION: Postsurgical changes are noted. - Procedures L2-S1 posterior spinal fusion Pedicle screws fixation L2, L3, L4 6.5x50mm and s1 7.5x45, Rods [id number], Spine Wave system Use of 3D fluoroscopy (1) Suppurative tenosynovitis of flexor tendon of left hand Comment: open wound left palm/ring finger - Postoperative Diagnosis (1) Suppurative tenosynovitis of flexor tendon of left hand Comment: open wound left palm/ring finger Date of procedure: 10/13/18 Procedure: wash, debridement and application of dehydrated human amnion/chorion membrane allograft left ring finger/palm Anesthesia: other (general with LMA) Surgeon: Slim Slaughter MD Assessment and Plan - Assessment (1) Osteomyelitis Code(s): M86.9 - Osteomyelitis, unspecified Status: Acute (2) Diabetes Code(s): E11.9 - Type 2 diabetes mellitus without complications Status: Chronic (3) Strain of lumbar region Code(s): S39.012A - Strain of muscle, fascia and tendon of lower back, initial encounter Status: Acute (4) Lumbar radiculopathy Code(s): M54.16 - Radiculopathy, lumbar region Status: Acute (5) Suppurative tenosynovitis of flexor tendon of left hand Code(s): M65.142 - Other infective (teno)synovitis, left hand Status: Chronic (6) Abscess of hand, left Code(s): L02.512 - Cutaneous abscess of left hand Status: Acute (7) Mycobacterium abscessus infection Code(s): A31.9 - Mycobacterial infection, unspecified Status: Acute (8) Malfunction of peripheral inserted central catheter Code(s): T82.598A - Other mechanical complication of other cardiac and vascular devices and implants, initial encounter Status: Acute (9) Antibiotic long-term use Code(s): Z79.2 - associate pathologist (current) use of antibiotics Status: Acute - Plan 58-year-old man with 1. L4-L5 discitis - Neurosurgery following, s/p L5/S1 discectomy and fusion on 10/04 -Intraoperative culture positive for C. Albican, patient currently on amphotericin B since 10/06/18 as well as Cefoxitin 2gm IV Q6H +Biaxin until per ID -Appreciate input from neurosurgery, who has cleared patient for discharge. PIA drain removed 10/10/18 -TLSO brace when out of bed -PT following. -10/12: As per ID specialist Recommended to continue Amphotericin B, anticipated 8 to 12 weeks of antifungal for discitis/ Osteomyelitis due to Portia, to monitor renal function and Potassium, Continue Biaxin until 10/25/18. 10/15: worsening leukocytosis 2. Chronic pain syndrome, opioid dependence - Required critical care to manage pain following surgery (received methadone IV , ketamine, and and versed on 10/04 to control pain) - Continue gabapentin 300 mg TID - Continue Mobic daily - Clonidine 0.2mg po q8h - Oxycodone 30mg po q4h prn and p.o. Dilaudid 3. Suppurative tenosynovitis of flexor tendon of left hand - s/p exploration, wash, repair of wound dehiscence, left palm/ring finger on - Status post Wash debridement and application of dehydrated human amnion/ chorion membrane allograft left ring finger palm. by Doctor Slim Slaughter. 10/13/18 4. Atrial fibrillation - Currently rate-controlled - Restart Eliquis when cleared by neurosurgery - Continue Diltiazem 5. HTN Mild Uncontrol today. - Continue ramipril and furosemide 6. Diabetes mellitus, Better control today, - A1c 7.8 - Continue Levemir 35 units AM, and Levemir 25 units at bedtime, Pre meal 5 units of regular insulin. - SSI with Accu-Cheks per protocol 7. Right shoulder pain-improved - No trauma, possibly related to sleep position - Pain control as above 8. Anemia of acute blood loss -Monitor H&H and transfuse for hemoglobin less than 7 9. rash probable related to contact with wet bed encourage ambulation and try to sit down instead of staying in bed on Supine position. as per ID probable from antibiotics. but I see contact areas only with rash. 10. Dysphonia Seen by ENT specialist due to Dysphonia, found with Left Vocal Cord Paresis, ,may be related to Intubation may be temporary, CT ordered found left Supraclavicular adenopathy rule out Gastric pathology, Speech therapy following and will need Speech therapy as outpatient, also needs rehab on discharge. DVT prophylaxis: SCDs Code Status: full Code. Discussed Condition With: Patient and Nurse Miss Santillan Discharge Planning: Once cleared by ID specialist. (1) Osteomyelitis Qualifiers: Osteomyelitis type: unspecified type Osteomyelitis location: unspecified site Qualified Code(s): M86.9 - Osteomyelitis, unspecified (3) Strain of lumbar region Qualifiers: Encounter type: initial encounter Qualified Code(s): S39.012A - Strain of muscle, fascia and tendon of lower back, initial encounter (8) Malfunction of peripheral inserted central catheter Qualifiers: Encounter type: initial encounter Qualified Code(s): T82.598A - Other mechanical complication of other cardiac and vascular devices and implants, initial encounter
--- NOTE | 2018-10-15 11:35 | CT ---
EXAM DATE: 10/15/2018 11:26 AM EST AGE/SEX: 58 years / Male INDICATIONS: Abnormal chest xray. CLINICAL DATA: This is the patient's initial encounter. Patient reports that signs and symptoms have been present for 1 day and indicates a pain score of 3/10. MEDICAL/SURGICAL HISTORY: Diabetes. Hypertension. None. RADIATION DOSE: 16.05 CTDI (mGy) COMPARISON: [facility], CT PULMONARY ANGIOGRAM, 06/16/2017. . TECHNIQUE: Multiple contiguous axial images were obtained through the chest without contrast. Image s were obtained in suspended respiration using multiple row detector helical technique. Using automa sofi exposure control and adjustment of the mA and/or kV according to patient size, radiation dose was kept as low as reasonably achievable to obtain optimal diagnostic quality images. DICOM format imag e data is available electronically for review and comparison. FINDINGS: Lungs: Small nodular opacity measuring 7 mm is identified in the right middle lobe. Mild interstitia l prominence is identified in the right upper lobe and both lower lobes. There is no evidence of subs egmental or segmental consolidation. Lungs are otherwise clear. Mediastinum: There is good visualization of the great vessels of the middle mediastinum. No evidenc e of mediastinal or hilar adenopathy/mass. Calcified plaque is evident throughout the coronary arteri es. Pleurae: No evidence of focal thickening or pleural effusion. Axillae: Unremarkable. Bony Structures: Unremarkable. Miscellaneous: The examination was extended to include the upper abdomen, and both adrenal glands ar e normal in size and configuration. CONCLUSION: 1. 7 mm nodular opacity in the right middle lobe: Surveillance recommended with follow-up scan in 6 months. 2. Mild interstitial prominence which may be inflammatory. 3. No evidence of consolidating airspace disease or pleural effusions. Electronically signed by: Sriram Pride MD 10/15/2018 11:34 AM EST
--- NOTE | 2018-10-15 11:47 | CT ---
EXAM DATE: 10/15/2018 11:15 AM EST AGE/SEX: 58 years / Male INDICATIONS: Evaluate for recurrent laryngeal nerve problems left vocal cord paresis CLINICAL DATA: This is the patient's initial encounter. Patient reports that signs and symptoms have been present for 1 day and indicates a pain score of 3/10. MEDICAL/SURGICAL HISTORY: Diabetes. Hypertension. None. RADIATION DOSE: 18.60 CTDI (mGy) COMPARISON: [facility] – [place] CHEST W/O CONTRAST, 10/15/2018.. . TECHNIQUE: Helical acquisition was performed using a multirow detector CT scanner without contrast. Using automated exposure control and adjustment of the mA and/or kV according to patient size, radiat ion dose was kept as low as reasonably achievable to obtain optimal diagnostic quality images. DICOM format image data is available electronically for review and comparison. FINDINGS: Nasopharynx: The nasopharyngeal airway has a normal configuration. No mucosal thickening or mass is seen. Oropharynx: The intrinsic muscles of the tongue are symmetric. The tonsillar pillars are intact. T he prevertebral soft tissues are not thickened. Larynx: The supraglottic, glottic, and infraglottic structures are intact. Parapharyngeal: The parapharyngeal space is intact. Salivary Glands: The parotid and submandibular glands are intact. Lymph Nodes: Multiple small mildly enlarged supraclavicular lymph nodes seen on the left. The larges t lymph node measures 2.8 x 1.1 cm. No other adenopathy observed.. Thyroid: Diffusely heterogeneous thyroid with multiple tiny low-density nodules bilaterally.. Bones: Degenerative cervical spine.. Calcified plaque involving the carotid arteries bilaterally. See the CT of the thorax dictated separately. CONCLUSION: 1. Left supraclavicular adenopathy. 2. Multiple small thyroid nodules bilaterally. Electronically signed by: Trenton Schaefer MD 10/15/2018 11:46 AM EST
[2018-10-15] MEDS: dilTIAZem CD 240 MG Capsule PO SCH (16:35)
--- NOTE | 2018-10-15 18:46 | P.PNID ---
Subjective Remarks: Notes reviewed. Patient had another surgery on the left hand. Discussed with a hand surgeon. The wound did not look purulent. Patient tells me he is ambulating in the room. Talking in a whisper. He is laying in bed on his back and tells me that his left leg is not working as well as his right. Reports that his back pain is not bad. No fevers or chills. Still has mild erythema on the back. Antibiotics: Biaxin Micafungin Lines: Line sites with no evidence of infection. 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 Allergies/Adverse Reactions: Allergies No Known Drug Allergies Allergy (Verified 08/06/18 15:59) none *MDRO Multi-Drug Resistant Organism Adverse Reaction (Unknown, Uncoded 06/16/17 16:34) MRSA MRSA (foot wound) - 02/12/15, 11/12/16, 03/29/17; (toe) - 03/2016 Objective Vital Signs 10/14/18 20:00 10/15/18 00:00 10/15/18 04:00 Temperature 97.7 F 98.3 F 98.5 F Pulse Rate 70 62 59 L Respiratory Rate 18 18 18 Blood Pressure 151/71 H 119/56 L 114/56 L Pulse Oximetry 98 95 98 10/15/18 08:00 10/15/18 11:58 10/15/18 16:00 Temperature 97.3 F L 97.4 F L 97.3 F L Pulse Rate 60 60 61 Respiratory Rate 16 16 20 Blood Pressure 123/56 L 103/51 L 128/58 L Pulse Oximetry 93 L 97 99 Intake & Output 10/14/18 10/15/18 10/15/18 18:59 06:59 18:59 Intake Total 1200 / 1200 884 / 884 100 / 100 Output Total 3200 / 3200 1100 / 1100 Balance -1999 / -1999 -216 / -216 100 / 100 Weight 95.6 kg Intake: IV 100 / 100 100 / 100 Mycamine Inj 150 MG In NS Inj 100 / 100 100 / 100 100 ML @ 100 mls/hr IV.SIG Q24H PENDING SALE TO [facility] Rx#:[id number] Oral 1100 / 1100 884 / 884 Output: Urine 3200 / 3200 1100 / 1100 Other: Date of Last Bowel Movement 10/13/18 10/13/18 # Bowel Movements 0 Lab - Hematology Results 10/15/18 07:39 WBC 17.6 H RBC 2.77 L Hgb 7.1 L Hct 21.7 L MCV 78.4 L MCH 25.8 L MCHC 32.9 RDW 16.7 Plt Count 592 H D MPV 6.3 L Prelim Diff (Auto) Slide review pending Neut % (Auto) 77.4 H Lymph % (Auto) 12.3 [place] % (Auto) 8.5 H Eos % (Auto) 1.1 Baso % (Auto) 0.7 Neut # (Auto) 13.7 H Lymph # (Auto) 2.2 [place] # (Auto) 1.5 H Eos # (Auto) 0.2 Baso # (Auto) 0.1 WBC Differential Manual diff final Seg Neuts % (Manual) 76 H Lymphocytes % (Manual) 14 Monocytes % (Manual) 5 Metamyelocytes % (Man) 1 Myelocytes % (Man) 4 H Abs Neuts (Manual) 14.3 H Differential Comment . Platelet Estimate High H Platelet Morphology Normal Lab - Chemistry Results 10/13/18 10/13/18 10/14/18 21:58 23:01 08:01 Sodium Potassium Chloride Carbon Dioxide Anion Gap BUN Creatinine Estimated GFR POC Glucose 550 H* 477 H* 273 H Random Glucose Calcium Magnesium 10/14/18 10/14/18 10/14/18 12:08 16:42 22:21 Sodium Potassium Chloride Carbon Dioxide Anion Gap BUN Creatinine Estimated GFR POC Glucose 275 H 173 H 224 H Random Glucose Calcium Magnesium 10/15/18 10/15/18 10/15/18 07:39 07:51 11:25 Sodium 137 Potassium 5.1 Chloride 103 Carbon Dioxide 25.2 Anion Gap 9 BUN 61 H Creatinine 1.31 H Estimated GFR 56 L POC Glucose 266 H 173 H Random Glucose 222 H Calcium 8.6 Magnesium 2.1 10/15/18 10/15/18 16:36 17:13 Sodium Potassium Chloride Carbon Dioxide Anion Gap BUN Creatinine Estimated GFR POC Glucose 62 L 109 Random Glucose Calcium Magnesium Imaging: ITS Impressions Venous Doppler Study 09/23/18 13:35 CONCLUSION: 1. Occlusive thrombus in the proximal and mid cephalic vein. 2. Deep venous system is otherwise patent. 3. Heterogeneous hypoechoic collection along the right shoulder which could represent a hematoma and/or seroma. Lumbar Spine MRI 09/25/18 00:00 CONCLUSION: 1. Findings are diagnostic of discitis osteomyelitis at L4-L5 with epidural abscess posterior to the L4 and L5 vertebral body. This epidural material along with facet hypertrophy moderately narrows the spinal canal at this level. There additionally is some perivertebral enhancing material likely representing small perivertebral abscess. It is challenging to compare to the prior study since it was significantly degraded by motion artifact. However, the findings are similar and do not appear improved. 2. There is mild edema within the L2 disc space and minimal endplate irregularity and enhancement of L2. These changes could be secondary to degenerative disc disease but cannot exclude early discitis. Suggest attention to this area at follow-up imaging. Chest X-Ray 09/30/18 14:47 CONCLUSION: No acute cardiopulmonary disease. Lumbar Spine CT 10/01/18 00:00 CONCLUSION: 1. Destructive changes again noted involving the endplates at the L4-5 level consistent with the known discitis/osteomyelitis. There is abnormal soft tissue density the anterior epidural space consistent with the known epidural abscess. This does not appear significantly changed from the MRI examination. There is moderate central canal stenosis at this level. 2. Mild to moderate central canal stenosis also noted at the L2-3 level secondary to disc osteophyte complexes and degenerative change involving the facets. 3. Stable mild anterior spondylolisthesis of L4 on L5. Wrist X-Ray 10/03/18 00:00 CONCLUSION: Osteoarthritic findings of the wrist. Mild distal radioulnar joint narrowing. Cyst or erosion at the lateral aspect of the lunate. Lumbar Spine X-Ray 10/05/18 00:00 CONCLUSION: Postsurgical changes are noted. Chest CT 10/15/18 00:00 CONCLUSION: 1. 7 mm nodular opacity in the right middle lobe: Surveillance recommended with follow-up scan in 6 months. 2. Mild interstitial prominence which may be inflammatory. 3. No evidence of consolidating airspace disease or pleural effusions. Soft Tissue Neck CT 10/15/18 00:00 CONCLUSION: 1. Left supraclavicular adenopathy. 2. Multiple small thyroid nodules bilaterally. Physical Exam: PHYSICAL EXAMINATION: GENERAL: No acute distress. HEENT: Head atraumatic. Extraocular movements grossly intact. Pupils reactive to light, without icterus. Oropharynx: Moist mucosa. No visible lesions. No thrush. NECK: Supple without adenopathy or swelling. LUNGS: Breath sounds clear. HEART: Regular S1, S2, without murmurs, rubs or gallops. ABDOMEN: Bowel sounds present; flat, soft, non tender. EXTREMITIES: No clubbing or cyanosis or edema. SKIN: Macular rash on the back blanches. non petechial. NEUROLOGIC: Nonfocal. Weakness at the left lower extremity. PSYCHIATRIC: Calm. Assessment and Plan - Plan ASSESSMENT AND PLAN: 1. Catheter related infection from PICC line. 2. Thrombus of the right upper extremity related to PICC line. 3. 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 4. 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 Followed by hand surgeon. Reportedly tendon was exposed. 5. Chronic pain. 6. Rash now appears to be due to pressure from patient laying on his back all day. RECOMMENDATIONS: 1. Continue Micafungin anticipate 8 - 12 weeks of antifungal for discitis / osteomyelitis due to Portia. 12/04/2017( 8 weeks) vs - 01/04/2018(12) weeks. 2. Continue Biaxin until 10/25/2018. 3. Repeat sed rate ordered for tomorrow. 4. Continue physical therapy.
[2018-10-15] MEDS: Insulin Detemir Inj 1,000 UNIT/10 ML Vial SQ SCH (21:26)
[2018-10-16] MEDS: Baclofen 10 MG Tablet PO SCH ×3 (06:19→21:10)
[2018-10-16] MEDS: Meloxicam 7.5 MG Tablet PO SCH ×2 (06:19→17:32)
--- NOTE | 2018-10-16 08:28 | P.PN ---
Subjective Interval history: No change in voice. No aspiration. CT shows no mass on recurrent laryngeal nerve. Reports reviewed. Speech therapy has evaluated and agrees to treat. Physical Exam Vital signs: Vital Signs 10/15/18 11:58 10/15/18 16:00 10/15/18 20:00 Temperature 97.4 F L 97.3 F L 98.0 F Pulse Rate 60 61 75 Respiratory Rate 16 20 17 Blood Pressure 103/51 L 128/58 L 121/55 L Pulse Oximetry 97 99 93 L 10/15/18 23:56 10/16/18 04:36 Temperature 97.0 F L 97.9 F Pulse Rate 61 85 Respiratory Rate 16 16 Blood Pressure 108/55 L 156/77 H Pulse Oximetry 93 L 92 L Intake & Output 10/15/18 10/16/18 10/16/18 18:59 06:59 18:59 Intake Total 100 / 100 780 / 780 Output Total 1200 / 1200 1200 / 1200 Balance -1100 / -1100 -420 / -420 Weight 95.6 kg Intake: IV 100 / 100 Mycamine Inj 150 MG In NS Inj 100 / 100 100 ML @ 100 mls/hr IV.SIG Q24H [facility] Rx#:[id number] Oral 780 / 780 Output: Urine 1200 / 1200 1200 / 1200 Other: Date of Last Bowel Movement 10/13/18 # Bowel Movements 1 - Constitutional no acute distress - Routine HEENT Exam ENT: Present: mucous membranes moist, oropharynx clear, nares patent, external ear normal - Urinary Catheter Management Indwelling Urethral Catheter Cath placed during this visit: yes, but has since been removed by the nurse Reason for continuing: Decision to DC catheter Removal date: 10/05/18 Removal time: 09:30 Results - Labs CBC & Chem 7: 10/15/18 07:39 10/15/18 07:39 Laboratory Results - last 24 hr 10/15/18 10/15/18 10/15/18 07:39 07:39 11:25 WBC 17.6 H RBC 2.77 L Hgb 7.1 L Hct 21.7 L MCV 78.4 L MCH 25.8 L MCHC 32.9 RDW 16.7 Plt Count 592 H D MPV 6.3 L Prelim Diff (Auto) Slide review pending Neut % (Auto) 77.4 H Lymph % (Auto) 12.3 [place] % (Auto) 8.5 H Eos % (Auto) 1.1 Baso % (Auto) 0.7 Neut # (Auto) 13.7 H Lymph # (Auto) 2.2 [place] # (Auto) 1.5 H Eos # (Auto) 0.2 Baso # (Auto) 0.1 WBC Differential Manual diff final Seg Neuts % (Manual) 76 H Lymphocytes % (Manual) 14 Monocytes % (Manual) 5 Metamyelocytes % (Man) 1 Myelocytes % (Man) 4 H Abs Neuts (Manual) 14.3 H Differential Comment . Platelet Estimate High H Platelet Morphology Normal Sodium 137 Potassium 5.1 Chloride 103 Carbon Dioxide 25.2 Anion Gap 9 BUN 61 H Creatinine 1.31 H Estimated GFR 56 L POC Glucose 173 H Random Glucose 222 H Calcium 8.6 Magnesium 2.1 10/15/18 10/15/18 10/16/18 16:36 17:13 07:38 WBC RBC Hgb Hct MCV MCH MCHC RDW Plt Count MPV Prelim Diff (Auto) Neut % (Auto) Lymph % (Auto) [place] % (Auto) Eos % (Auto) Baso % (Auto) Neut # (Auto) Lymph # (Auto) [place] # (Auto) Eos # (Auto) Baso # (Auto) WBC Differential Seg Neuts % (Manual) Lymphocytes % (Manual) Monocytes % (Manual) Metamyelocytes % (Man) Myelocytes % (Man) Abs Neuts (Manual) Differential Comment Platelet Estimate Platelet Morphology Sodium Potassium Chloride Carbon Dioxide Anion Gap BUN Creatinine Estimated GFR POC Glucose 62 L 109 86 Random Glucose Calcium Magnesium - Imaging Impressions Chest CT 10/15/18 00:00 CONCLUSION: 1. 7 mm nodular opacity in the right middle lobe: Surveillance recommended with follow-up scan in 6 months. 2. Mild interstitial prominence which may be inflammatory. 3. No evidence of consolidating airspace disease or pleural effusions. Soft Tissue Neck CT 10/15/18 00:00 CONCLUSION: 1. Left supraclavicular adenopathy. 2. Multiple small thyroid nodules bilaterally. - Procedures L2-S1 posterior spinal fusion Pedicle screws fixation L2, L3, L4 6.5x50mm and s1 7.5x45, Rods [id number], Spine Wave system Use of 3D fluoroscopy (1) Suppurative tenosynovitis of flexor tendon of left hand Comment: open wound left palm/ring finger - Postoperative Diagnosis (1) Suppurative tenosynovitis of flexor tendon of left hand Comment: open wound left palm/ring finger Date of procedure: 10/13/18 Procedure: wash, debridement and application of dehydrated human amnion/chorion membrane allograft left ring finger/palm Anesthesia: other (general with LMA) Surgeon: Slim Slaughter MD Assessment and Plan - Assessment (1) Hoarse voice quality Code(s): R49.0 - Dysphonia Status: Acute - Plan Left vocal cord paresis. Suspect related to ET tube. This has been described with perfect tube function and placement in the past. In my experience prognosis is good for improvement, but with slow recovery. There is no evidence of aspiration, he is protecting his airway well. He will benefit form outpatient Speech Therapy as recommended from Speech pathology. He should also follow up with Dr Cloud, [facility] as an outpatient. As to CT findings: 1) Left supraclavicular adenopathy could be expected due to left hand infection. Defer further work up to team. Expect this can be watched and react if it increases. 2) Multiple thyroid nodules. Recommend follow up thyroid ultrasound in 6 months through his primary care Dr Reilly Novak to be sure he does not develop a dominant nodule that might need biopsy. 3) Right 7mm middle lobe nodule. Radiology suggest 6 month follow up chest CT. This should be coordinated with his primary care Dr Reilly Novak.
[2018-10-16] MEDS: Insulin NovoLOG Aspart Correctional Sugar Inj SQ SCH ×4 (09:21→21:08)
[2018-10-16] MEDS: Insulin Detemir Inj 1,000 UNIT/10 ML Vial SQ SCH ×2 (09:22→21:08)
[2018-10-16] MEDS: Senna/Docusate Sodium 8.6/50 MG Tablet PO SCH ×2 (09:23→21:09)
[2018-10-16] MEDS: Ramipril 2.5 MG Capsule PO SCH (09:23)
[2018-10-16] MEDS: Furosemide 20 MG Tablet PO SCH ×2 (09:23→21:09)
[2018-10-16] MEDS: Sodium Chloride 0.9% 2 ML Flush BID IV.FLUSH SCH ×2 (09:24→21:09)
[2018-10-16] MEDS: Gabapentin 300 MG Capsule PO SCH ×3 (09:24→17:32)
[2018-10-16] MEDS: Micafungin Inj 150 MG in Sodium Chlor 0.9% Inj 100 ML IV.SIG SCH (10:59)
--- NOTE | 2018-10-16 12:27 | P.PNIM ---
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 anticipated 8 to 12 weeks of antifungal for discitis , osteomyelitis due to Portia, stopped Cefoxitin, and continue Biaxin until 10/25/18. 10/13: Status post Closure of wound dehiscence left hand/ring finger with left wrist pain he will have Flap coverage versus wound closure left hand/ring finger for today. 10/15: Seen by ENT specialist due to Dysphonia, found with Left Vocal Cord Paresis, ,may be related to Intubation may be temporary, CT ordered found left Supraclavicular adenopathy, Speech therapy following and will need Speech therapy as outpatient, also needs rehab on discharge, no nausea, vomit or diarrhea. 10/16 pt seen and examined, doing ok but complaining of pain in right thigh and leg, denies sob, no cp, no nv no fever. Physical Exam Vital signs: Last Vital Signs Temp 98.5 F 10/16/18 12:00 Pulse 98 H 10/16/18 12:00 Resp 16 10/16/18 12:00 BP 94/45 L 10/16/18 12:00 Pulse Ox 93 L 10/16/18 12:00 Intake & Output 10/14/18 10/15/18 10/16/18 10/17/18 06:59 06:59 06:59 06:59 Intake Total 3110 / 3110 2084 / 2084 880 / 880 Output Total 3780 / 3780 4300 / 4300 2400 / 2400 Balance -670 / -670 -2216 / -2216 -1520 / -1520 Weight 95.1 kg 95.6 kg 95.6 kg gen aaox3 nad heart s1s2 reg w ectopy lungs clear no wrr, abd soft nondt pos bs ext left hand bandaged, some edema. moving ext, no clonus, no rigidity Urinary Catheter Management Indwelling Urethral Catheter: Cath placed during this visit: yes, but has since been removed by the nurse Removal date: 10/05/18 Removal time: 09:30 Results Labs CBC & Chem 7: 10/15/18 07:39 10/15/18 07:39 Procedures Procedures: L2-S1 posterior spinal fusion Pedicle screws fixation L2, L3, L4 6.5x50mm and s1 7.5x45, Rods [id number], Spine Wave system Use of 3D fluoroscopy (1) Suppurative tenosynovitis of flexor tendon of left hand Comment: open wound left palm/ring finger - Postoperative Diagnosis (1) Suppurative tenosynovitis of flexor tendon of left hand Comment: open wound left palm/ring finger Date of procedure: 10/13/18 Procedure: wash, debridement and application of dehydrated human amnion/chorion membrane allograft left ring finger/palm Anesthesia: other (general with LMA) Surgeon: Slim Slaughter MD Assessment and Plan (1) Hoarse voice quality: Code(s): R49.0 - Dysphonia Status: Acute Onset Date: 10/04/18 Plan 58-year-old man with - L4-L5 DISKITIS - Neurosurgery following, s/p L5/S1 discectomy and fusion on 10/04 -Intraoperative culture positive for C. Albicans, currently on amphotericin B since 10/06/18 and Cefoxitin 2gm IV Q6H +Biaxin until 10/25/18 per ID -Appreciate input from neurosurgery, who has cleared patient for discharge. PIA drain removed 10/10/18 -TLSO brace when out of bed -PT following. -10/12: As per ID specialist Recommended to continue Amphotericin B, anticipated 8 to 12 weeks of antifungal for discitis/ Osteomyelitis due to Portia, to monitor renal function and Potassium, Continue Biaxin until 10/25/18. 10/15: worsening leukocytosis will trend tomorrow, no fever, prob reactive post op. - CHRONIC PAIN SYNDROME/OPOID DEPENDENCE - Required critical care to manage pain following surgery (received methadone IV , ketamine, and and versed on 10/04 to control pain) - Continue gabapentin 300 mg TID - Continue Mobic daily - Clonidine 0.2mg po q8h - Oxycodone 30mg po q4h prn and p.o. Dilaudid - baclofen and flexeril prn - SUPPURATIVE TENOSYNOVITIS of flexor tendon of left hand - s/p exploration, wash, repair of wound dehiscence, left palm/ring finger on - Status post Wash debridement and application of dehydrated human amnion/ chorion membrane allograft left ring finger palm. by Doctor Slim Slaughter. 10/13/18 - ATRIAL FIBRILLATION - Currently rate-controlled - continue Eliquis when cleared by neurosurgery - Continue Diltiazem - HTN Mild Uncontrol today. - Continue ramipril and furosemide -DIABETES insulin dependent - - A1c 7.8 - Continue Levemir 35 units AM, and Levemir 25 units at bedtime, Pre meal 5 units of regular insulin, iss. - ANEMIA of acute blood loss - monitor H&H and transfuse for hemoglobin less than 7 - CONTACT DERMATITIS probable related to contact with wet bed encourage ambulation and try to sit down instead of staying in bed on Supine position. as per ID probable from antibiotics. but I see contact areas only with rash. - LEFT VOCAL CORD PARESIS w Dysphonia Seen by ENT may be related to Intubation may be temporary, Speech therapy - L SUPRACLAVICULAR LAD, R LUNG RML 7mm opacity per ct neck and chest - needs outpatient followup after completes antibiotics. -DISPO - dc to rehab when ok with surgery and ID, when leukocytosis resolved. DVT prophylaxis: SCDs Code Status: Progress Note: Quality VTE Deep Vein Thrombosis/Pulmonary Embolism Present on Admission: No
[2018-10-16] MEDS: dilTIAZem CD 240 MG Capsule PO SCH (16:15)
[2018-10-16 17:23] LABS: Alanine Aminotransferase 16 U/L (12-78); Albumin 2.3 g/dL (3.4-5.0); Alkaline Phosphatase 125 U/L (45-117); Anion Gap 8 meq/L (5-15); Aspartate Aminotransferase 21 U/L (15-37); Blood Urea Nitrogen 48 mg/dL (7-18); Calcium 8.7 mg/dL (8.5-10.1); Carbon Dioxide 25.4 meq/L (21.0-32.0); Chloride 105 meq/L (98-107); Glomerular Filtration Rate 65 mL/min (>89); Glucose,Random 55 mg/dL (74-106); Potassium 4.6 meq/L (3.5-5.1); Sodium 138 meq/L (136-145); Total Protein 6.9 g/dL (6.4-8.2)
[2018-10-17] MEDS: Meloxicam 7.5 MG Tablet PO SCH ×2 (05:46→17:35)
[2018-10-17] MEDS: Baclofen 10 MG Tablet PO SCH ×3 (05:46→22:23)
[2018-10-17 06:13] LABS: Baso # (Auto) 0.1 th/mm3 (0.0-0.2); Baso % (Auto) 0.4 % (0.0-2.0); Eos # (Auto) 0.2 th/mm3 (0.0-0.4); Eos % (Auto) 1.3 % (0.0-4.0); Hematocrit 21.3 % (39.0-51.0); Hemoglobin 7.1 gm/dL (13.0-17.0); Lymph # (Auto) 1.5 th/mm3 (1.0-4.8); Mean Corpuscular HGB Conc 33.2 % (32.0-36.0); Mean Corpuscular Hemoglobin 25.6 pg (27.0-34.0); Mean Corpuscular Volume 77.2 fL (80.0-100.0); Mean Platelet Volume 6.1 fL (7.0-11.0); Mono # (Auto) 1.3 th/mm3 (0.0-0.9); Mono % (Auto) 7.7 % (0.0-8.0); Neut # (Auto) 13.6 th/mm3 (1.8-7.7); Neut % (Auto) 81.6 % (16.0-70.0); Platelet Count 507 th/mm3 (150-450); Red Blood Count 2.76 mil/mm3 (4.50-5.90); White Blood Count 16.7 th/mm3 (4.0-11.0)
[2018-10-17 07:58] LABS: Lymphocytes 10 % (9-44); Monocytes 8 % (0-8); Myelocytes 2 % (0-0); Platelet Morphology Normal (Normal); Promyelocyte 2 % (0-0); Toxic Granulation 1+
[2018-10-17] MEDS: Insulin NovoLOG Aspart Correctional Sugar Inj SQ SCH ×4 (09:38→22:31)
[2018-10-17] MEDS: Insulin Detemir Inj 1,000 UNIT/10 ML Vial SQ SCH ×2 (09:38→22:30)
[2018-10-17] MEDS: Gabapentin 300 MG Capsule PO SCH ×3 (09:39→17:35)
[2018-10-17] MEDS: Sodium Chloride 0.9% 2 ML Flush BID IV.FLUSH SCH ×2 (09:40→22:31)
[2018-10-17] MEDS: Furosemide 20 MG Tablet PO SCH ×2 (09:40→22:21)
[2018-10-17] MEDS: Ramipril 2.5 MG Capsule PO SCH (09:40)
[2018-10-17] MEDS: Senna/Docusate Sodium 8.6/50 MG Tablet PO SCH ×2 (09:40→22:23)
[2018-10-17] MEDS: Multivitamin/Minerals Therapeutic Tablet PO SCH (09:41)
[2018-10-17] MEDS: Micafungin Inj 150 MG in Sodium Chlor 0.9% Inj 100 ML IV.SIG SCH (10:55)
[2018-10-17] MEDS: dilTIAZem CD 240 MG Capsule PO SCH (15:48)
--- NOTE | 2018-10-17 16:48 | P.PNIM ---
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 anticipated 8 to 12 weeks of antifungal for discitis , osteomyelitis due to Portia, stopped Cefoxitin, and continue Biaxin until 10/25/18. 10/13: Status post Closure of wound dehiscence left hand/ring finger with left wrist pain he will have Flap coverage versus wound closure left hand/ring finger for today. 10/15: Seen by ENT specialist due to Dysphonia, found with Left Vocal Cord Paresis, ,may be related to Intubation may be temporary, CT ordered found left Supraclavicular adenopathy, Speech therapy following and will need Speech therapy as outpatient, also needs rehab on discharge, no nausea, vomit or diarrhea. Patient has many concerns regarding the intubation and wishes to speak with someone about it, I have requested patient advocate to visit patient. 10/17 pt seen and examined, doing ok but complaining about his voice, denies sob no cp, Physical Exam Vital signs: Last Vital Signs Temp 97.7 F 10/17/18 12:00 Pulse 75 10/17/18 12:00 Resp 18 10/17/18 12:00 BP 121/58 L 10/17/18 12:00 Pulse Ox 95 10/17/18 12:00 Intake & Output 10/15/18 10/16/18 10/17/18 10/18/18 06:59 06:59 06:59 06:59 Intake Total 2084 / 2084 880 / 880 1680 / 1680 100 / 100 Output Total 4300 / 4300 2400 / 2400 3100 / 3100 Balance -2216 / -2216 -1520 / -1520 -1420 / -1420 100 / 100 Weight 95.6 kg 95.6 kg 91.7 kg gen aaox3 nad difficult to keep focused, sometimes forgetful bu pleasant heart s1s2 reg w ectopy lungs clear no wrr, abd soft nondt pos bs incision back, clean no ext left hand bandaged, some edema better, moving better today no clonus, no rigidity, ambulating with walker Urinary Catheter Management Indwelling Urethral Catheter: Cath placed during this visit: yes, but has since been removed by the nurse Removal date: 10/05/18 Removal time: 09:30 Results Labs CBC & Chem 7: 10/17/18 05:23 10/16/18 16:05 Procedures Procedures: L2-S1 posterior spinal fusion Pedicle screws fixation L2, L3, L4 6.5x50mm and s1 7.5x45, Rods [id number], Spine Wave system Use of 3D fluoroscopy (1) Suppurative tenosynovitis of flexor tendon of left hand Comment: open wound left palm/ring finger - Postoperative Diagnosis (1) Suppurative tenosynovitis of flexor tendon of left hand Comment: open wound left palm/ring finger Date of procedure: 10/13/18 Procedure: wash, debridement and application of dehydrated human amnion/chorion membrane allograft left ring finger/palm Anesthesia: other (general with LMA) Surgeon: Slim Slaughter MD Assessment and Plan (1) Hoarse voice quality: Code(s): R49.0 - Dysphonia Status: Acute Onset Date: 10/04/18 Plan 58-year-old man with - L4-L5 DISKITIS - Neurosurgery following, s/p L5/S1 discectomy and fusion on 10/04 -Intraoperative culture positive for C. Albicans, currently on amphotericin B since 10/06/18 and Cefoxitin 2gm IV Q6H +Biaxin until 10/25/18 per ID -Appreciate input from neurosurgery, who has cleared patient for discharge. PIA drain removed 10/10/18 -TLSO brace when out of bed -PT following. -10/12: As per ID specialist Recommended to continue Amphotericin B, anticipated 8 to 12 weeks of antifungal for discitis/ Osteomyelitis due to Portia, to monitor renal function and Potassium, Continue Biaxin until 10/25/18. 10/15: worsening leukocytosis will trend tomorrow, no fever, prob reactive post op. - CHRONIC PAIN SYNDROME/OPOID DEPENDENCE - Required critical care to manage pain following surgery (received methadone IV, ketamine, and and versed on 10/04 to control pain) - Continue gabapentin 300 mg TID - Continue Mobic daily - Clonidine 0.2mg po q8h - Oxycodone 30mg po q4h prn and p.o. Dilaudid - baclofen and flexeril prn - SUPPURATIVE TENOSYNOVITIS of flexor tendon of left hand - s/p exploration, wash, repair of wound dehiscence, left palm/ring finger on 09/13 - Status post Wash debridement and application of dehydrated human amnion/ chorion membrane allograft left ring finger palm. by Doctor Slim Slaughter. 10/13/18 - ATRIAL FIBRILLATION - Currently rate-controlled - continue Eliquis , but monitor hh - Continue Diltiazem - HTN better. - Continue ramipril and furosemide -DIABETES insulin dependent - - A1c 7.8 - Continue Levemir 35 units AM, and Levemir 25 units at bedtime, Pre meal 5 units of regular insulin, iss. hypoglycemia this am, montior diet adjust pm dose if persistent am hypoglycemia - ANEMIA of acute blood loss and iron def, check guiac, start mvi and iron - monitor H&H and transfuse for hemoglobin less than 7 - CONTACT DERMATITIS probable related to contact with wet bed encourage ambulation and try to sit down instead of staying in bed on Supine position. as per ID probable from antibiotics. - LEFT VOCAL CORD PARESIS w Dysphonia Seen by ENT may be related to Intubation may be temporary, Speech therapy to be continued and supportive tx. - L SUPRACLAVICULAR LAD, R LUNG RML 7mm opacity per ct neck and chest - needs outpatient followup after completes antibiotics. -DISPO - dc to rehab when ok with surgery and ID, when leukocytosis resolved. DVT prophylaxis: SCDs Code Status: Progress Note: Quality VTE Deep Vein Thrombosis/Pulmonary Embolism Present on Admission: No
[2018-10-17] MEDS: Polysaccharide Iron Complex 150 MG Capsule PO SCH (22:22)
[2018-10-18] MEDS: Meloxicam 7.5 MG Tablet PO SCH ×2 (05:59→17:45)
[2018-10-18] MEDS: Baclofen 10 MG Tablet PO SCH ×3 (05:59→21:51)
[2018-10-18 07:41] LABS: Baso # (Auto) 0.2 th/mm3 (0.0-0.2); Baso % (Auto) 1.2 % (0.0-2.0); Eos # (Auto) 0.3 th/mm3 (0.0-0.4); Eos % (Auto) 1.8 % (0.0-4.0); Hematocrit 24.5 % (39.0-51.0); Hemoglobin 8.1 gm/dL (13.0-17.0); Lymph # (Auto) 1.6 th/mm3 (1.0-4.8); Lymph % (Auto) 10.2 % (9.0-44.0); Mean Corpuscular HGB Conc 32.9 % (32.0-36.0); Mean Platelet Volume 6.3 fL (7.0-11.0); Mono # (Auto) 1.3 th/mm3 (0.0-0.9); Mono % (Auto) 8.3 % (0.0-8.0); Neut # (Auto) 12.5 th/mm3 (1.8-7.7); Neut % (Auto) 78.5 % (16.0-70.0); Platelet Count 544 th/mm3 (150-450); Red Cell Distribution Width 17.2 % (11.6-17.2); White Blood Count 15.8 th/mm3 (4.0-11.0)
[2018-10-18] MEDS: Insulin NovoLOG Aspart Correctional Sugar Inj SQ SCH ×4 (09:47→21:58)
[2018-10-18] MEDS: Multivitamin/Minerals Therapeutic Tablet PO SCH (09:56)
[2018-10-18] MEDS: Polysaccharide Iron Complex 150 MG Capsule PO SCH ×2 (09:56→21:51)
[2018-10-18] MEDS: Senna/Docusate Sodium 8.6/50 MG Tablet PO SCH ×2 (09:56→21:52)
[2018-10-18] MEDS: Furosemide 20 MG Tablet PO SCH ×2 (09:56→21:57)
[2018-10-18] MEDS: Ramipril 2.5 MG Capsule PO SCH (09:56)
[2018-10-18] MEDS: Gabapentin 300 MG Capsule PO SCH ×3 (09:56→17:45)
[2018-10-18] MEDS: Insulin Detemir Inj 1,000 UNIT/10 ML Vial SQ SCH ×2 (09:57→21:57)
[2018-10-18] MEDS: Sodium Chloride 0.9% 2 ML Flush BID IV.FLUSH SCH ×2 (09:57→21:58)
[2018-10-18] MEDS: Micafungin Inj 150 MG in Sodium Chlor 0.9% Inj 100 ML IV.SIG SCH (12:20)
--- NOTE | 2018-10-18 16:15 | P.PNID ---
Subjective Remarks: Notes reviewed. Is that he continues to have pain in his right thigh. Patient tells me he is ambulating in the room. Talking in a whisper. Reports that his back pain is not bad. No fevers or chills. Very little erythema on the back. White blood cell count is elevated. Reports that he is coughing up some phlegm. Feels a little short of breath. Antibiotics: Biaxin Micafungin Lines: Line sites with no evidence of infection. 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 Allergies/Adverse Reactions: Allergies No Known Drug Allergies Allergy (Verified 08/06/18 15:59) none *MDRO Multi-Drug Resistant Organism Adverse Reaction (Unknown, Uncoded 06/16/17 16:34) MRSA MRSA (foot wound) - 02/12/15, 11/12/16, 03/29/17; (toe) - 03/2016 Objective Vital Signs 10/17/18 20:00 10/18/18 00:00 10/18/18 08:00 Temperature 98.3 F 98.6 F 98.8 F Pulse Rate 70 62 65 Respiratory Rate 18 16 16 Blood Pressure 103/57 L 114/56 L 93/53 L Pulse Oximetry 98 98 93 L 10/18/18 12:00 Temperature 98.1 F Pulse Rate 59 L Respiratory Rate 16 Blood Pressure 94/46 L Pulse Oximetry 98 Intake & Output 10/17/18 10/18/18 10/18/18 18:59 06:59 18:59 Intake Total 1060 / 1060 0 / 0 Output Total 1700 / 1700 Balance 1060 / 1060 -1700 / -1700 Weight 96 kg Intake: IV 100 / 100 0 / 0 Mycamine Inj 150 MG In NS Inj 100 / 100 100 ML @ 100 mls/hr IV.SIG Q24H ROBBIE Rx#:[id number] Oral 960 / 960 Output: Urine 1700 / 1700 Other: # Voids 4 Date of Last Bowel Movement 10/15/18 10/15/18 10/04/18 16:56 Tissue - Other Fungal Smear - Final No fungal elements seen 10/04/18 16:56 Tissue - Other Fungal Culture - Preliminary No growth in 2 weeks 10/04/18 16:56 Tissue - Other Acid Fast Bacilli Smear - Final No acid fast bacilli seen 10/04/18 16:56 Tissue - Other Mycobacterial Culture - Preliminary No growth in 2 weeks 10/04/18 16:05 Wound - Other Fungal Smear - Final No fungal elements seen 10/04/18 16:05 Wound - Other Fungal Culture - Preliminary No growth in 2 weeks 10/04/18 16:05 Wound - Other Acid Fast Bacilli Smear - Final No acid fast bacilli seen 10/04/18 16:05 Wound - Other Mycobacterial Culture - Preliminary No growth in 2 weeks 10/04/18 16:05 Wound - Other Fungal Smear - Final No fungal elements seen 10/04/18 16:05 Wound - Other Fungal Culture - Preliminary No growth in 2 weeks 10/04/18 16:05 Wound - Other Acid Fast Bacilli Smear - Final No acid fast bacilli seen 10/04/18 16:05 Wound - Other Mycobacterial Culture - Preliminary No growth in 2 weeks Lab - Hematology Results 10/17/18 10/18/18 05:23 06:39 WBC 16.7 H 15.8 H RBC 2.76 L 3.10 L Hgb 7.1 L 8.1 L Hct 21.3 L 24.5 L MCV 77.2 L 79.0 L MCH 25.6 L 26.0 L MCHC 33.2 32.9 RDW 17.0 17.2 Plt Count 507 H 544 H MPV 6.1 L 6.3 L Prelim Diff (Auto) Slide review pending Neut % (Auto) 81.6 H 78.5 H Lymph % (Auto) 9.0 10.2 [place] % (Auto) 7.7 8.3 H Eos % (Auto) 1.3 1.8 Baso % (Auto) 0.4 1.2 Neut # (Auto) 13.6 H 12.5 H Lymph # (Auto) 1.5 1.6 [place] # (Auto) 1.3 H 1.3 H Eos # (Auto) 0.2 0.3 Baso # (Auto) 0.1 0.2 WBC Differential Manual diff final . Seg Neuts % (Manual) 68 Band Neuts % (Manual) 8 H Lymphocytes % (Manual) 10 Monocytes % (Manual) 8 Basophils % (Manual) 2 Myelocytes % (Man) 2 H Promyelocytes % (Man) 2 H Abs Neuts (Manual) 13.4 H Differential Comment . Auto diff final Toxic Granulation 1+ H Platelet Estimate High H Platelet Morphology Normal Lab - Chemistry Results 10/15/18 10/16/18 10/16/18 21:23 16:05 16:19 Sodium 138 Potassium 4.6 Chloride 105 Carbon Dioxide 25.4 Anion Gap 8 BUN 48 H Creatinine 1.15 Estimated GFR 65 L POC Glucose 220 H 67 L Random Glucose 55 L D Calcium 8.7 Iron TIBC % Saturation Total Bilirubin 0.2 AST 21 ALT 16 Alkaline Phosphatase 125 H Total Protein 6.9 Albumin 2.3 L 10/16/18 10/16/18 10/17/18 17:32 21:07 07:20 Sodium Potassium Chloride Carbon Dioxide Anion Gap BUN Creatinine Estimated GFR POC Glucose 127 H 152 H 216 H Random Glucose Calcium Iron TIBC % Saturation Total Bilirubin AST ALT Alkaline Phosphatase Total Protein Albumin 10/17/18 10/17/18 10/17/18 08:58 10:55 16:32 Sodium Potassium Chloride Carbon Dioxide Anion Gap BUN Creatinine Estimated GFR POC Glucose 159 H 167 H Random Glucose Calcium Iron 17 L TIBC 244 L % Saturation 7.0 L Total Bilirubin AST ALT Alkaline Phosphatase Total Protein Albumin 10/17/18 10/18/18 10/18/18 22:25 08:06 12:24 Sodium Potassium Chloride Carbon Dioxide Anion Gap BUN Creatinine Estimated GFR POC Glucose 294 H 138 H 208 H Random Glucose Calcium Iron TIBC % Saturation Total Bilirubin AST ALT Alkaline Phosphatase Total Protein Albumin Imaging: ITS Impressions Venous Doppler Study 09/23/18 13:35 CONCLUSION: 1. Occlusive thrombus in the proximal and mid cephalic vein. 2. Deep venous system is otherwise patent. 3. Heterogeneous hypoechoic collection along the right shoulder which could represent a hematoma and/or seroma. Lumbar Spine MRI 09/25/18 00:00 CONCLUSION: 1. Findings are diagnostic of discitis osteomyelitis at L4-L5 with epidural abscess posterior to the L4 and L5 vertebral body. This epidural material along with facet hypertrophy moderately narrows the spinal canal at this level. There additionally is some perivertebral enhancing material likely representing small perivertebral abscess. It is challenging to compare to the prior study since it was significantly degraded by motion artifact. However, the findings are similar and do not appear improved. 2. There is mild edema within the L2 disc space and minimal endplate irregularity and enhancement of L2. These changes could be secondary to degenerative disc disease but cannot exclude early discitis. Suggest attention to this area at follow-up imaging. Chest X-Ray 09/30/18 14:47 CONCLUSION: No acute cardiopulmonary disease. Lumbar Spine CT 10/01/18 00:00 CONCLUSION: 1. Destructive changes again noted involving the endplates at the L4-5 level consistent with the known discitis/osteomyelitis. There is abnormal soft tissue density the anterior epidural space consistent with the known epidural abscess. This does not appear significantly changed from the MRI examination. There is moderate central canal stenosis at this level. 2. Mild to moderate central canal stenosis also noted at the L2-3 level secondary to disc osteophyte complexes and degenerative change involving the facets. 3. Stable mild anterior spondylolisthesis of L4 on L5. Wrist X-Ray 10/03/18 00:00 CONCLUSION: Osteoarthritic findings of the wrist. Mild distal radioulnar joint narrowing. Cyst or erosion at the lateral aspect of the lunate. Lumbar Spine X-Ray 10/05/18 00:00 CONCLUSION: Postsurgical changes are noted. Chest CT 10/15/18 00:00 CONCLUSION: 1. 7 mm nodular opacity in the right middle lobe: Surveillance recommended with follow-up scan in 6 months. 2. Mild interstitial prominence which may be inflammatory. 3. No evidence of consolidating airspace disease or pleural effusions. Soft Tissue Neck CT 10/15/18 00:00 CONCLUSION: 1. Left supraclavicular adenopathy. 2. Multiple small thyroid nodules bilaterally. Physical Exam: PHYSICAL EXAMINATION: GENERAL: No acute distress. HEENT: Head atraumatic. Extraocular movements grossly intact. Pupils reactive to light, without icterus. Oropharynx: Moist mucosa. No visible lesions. No thrush. NECK: Supple without adenopathy or swelling. LUNGS: Breath sounds decreased. HEART: Regular S1, S2, without murmurs, rubs or gallops. ABDOMEN: Bowel sounds present; flat, soft, non tender. EXTREMITIES: No clubbing or cyanosis or edema. SKIN: Light rash on the back mostly faded from previous. NEUROLOGIC: Nonfocal. Weakness at the left lower extremity. PSYCHIATRIC: Calm. Assessment and Plan - Plan ASSESSMENT AND PLAN: 1. Catheter related infection from PICC line. 2. Thrombus of the right upper extremity related to PICC line. 3. 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 Sedimentation rate remain elevated. 4. 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 Followed by hand surgeon. Reportedly tendon was exposed. 5. Chronic pain. 6. Rash now appears to be due to pressure from patient laying on his back all day. 7. Leukocytosis. No clear etiology. Patient has been laying on his back and taking liquids. He potentially could be aspirating. RECOMMENDATIONS: 1. Continue Micafungin anticipate 8 - 12 weeks of antifungal for discitis / osteomyelitis due to Portia. 12/04/2018( 8 weeks) vs - 01/04/2019(12) weeks. 2. Continue Biaxin until 10/25/2018. 3. Reinstate tigecycline because the sedimentation rate has not showed improvement. The prior rash could have been secondary to cefoxitin. 4. Obtain a chest x-ray. 5. Monitor white blood cell count. 6. Obtain sputum for culture if chest x-ray has infiltrate.
--- NOTE | 2018-10-18 16:46 | XR ---
EXAM DATE: 10/18/2018 4:40 PM EST AGE/SEX: 58 years / Male INDICATIONS: Pneumonia. Congestion. CLINICAL DATA: This is the patient's subsequent encounter. Patient reports that signs and symptoms h ave been present for 4 - 6 days and indicates a pain score of 4/10. MEDICAL/SURGICAL HISTORY: None. None. COMPARISON: [facility] [place], CHEST 1V SINGLE AP, 09/30/2018. . FINDINGS: A single AP view of the chest demonstrates the lungs to be symmetrically aerated without evidence of mass, infiltrate or effusion. Atherosclerotic changes are present in the aorta. The cardiomediastinal contours are unremarkable. Osseous structures are intact. CONCLUSION: No acute cardiopulmonary disease. There is no definite evidence of pneumonia. Electronically signed by: Jose Maria MD 10/18/2018 4:45 PM EST
--- NOTE | 2018-10-18 17:27 | P.PNIM ---
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 anticipated 8 to 12 weeks of antifungal for discitis , osteomyelitis due to Portia, stopped Cefoxitin, and continue Biaxin until 10/25/18. 10/13: Status post Closure of wound dehiscence left hand/ring finger with left wrist pain he will have Flap coverage versus wound closure left hand/ring finger for today. 10/15: Seen by ENT specialist due to Dysphonia, found with Left Vocal Cord Paresis, ,may be related to Intubation may be temporary, CT ordered found left Supraclavicular adenopathy, Speech therapy following and will need Speech therapy as outpatient, also needs rehab on discharge, no nausea, vomit or diarrhea. 10/18 pt seen and examined, he is doing ok denies sob no nv, no fever, no diarrhea, no events overnight. Physical Exam Vital signs: Last Vital Signs Temp 98.0 F 10/18/18 16:00 Pulse 63 10/18/18 16:00 Resp 16 10/18/18 16:00 BP 91/44 L 10/18/18 16:00 Pulse Ox 98 10/18/18 16:00 Intake & Output 10/16/18 10/17/18 10/18/18 10/19/18 06:59 06:59 06:59 06:59 Intake Total 880 / 880 1680 / 1680 1060 / 1060 Output Total 2400 / 2400 3100 / 3100 1700 / 1700 Balance -1520 / -1520 -1420 / -1420 -640 / -640 Weight 95.6 kg 91.7 kg 96 kg gen aaox3 nad speaks in a hoarse voice but understandable heart s1s2 reg lungs clear no wrr, abd soft nondt pos bs incision back, clean no drainage ext left hand bandaged, some edema better, lying semi reclined on bed while seated Urinary Catheter Management Indwelling Urethral Catheter: Cath placed during this visit: yes, but has since been removed by the nurse Removal date: 10/05/18 Removal time: 09:30 Results Labs CBC & Chem 7: 10/18/18 06:39 10/16/18 16:05 Labs: Microbiology 10/04/18 16:56 Tissue - Other Fungal Smear - Final No fungal elements seen 10/04/18 16:56 Tissue - Other Fungal Culture - Preliminary No growth in 2 weeks 10/04/18 16:56 Tissue - Other Acid Fast Bacilli Smear - Final No acid fast bacilli seen 10/04/18 16:56 Tissue - Other Mycobacterial Culture - Preliminary No growth in 2 weeks 10/04/18 16:05 Wound - Other Fungal Smear - Final No fungal elements seen 10/04/18 16:05 Wound - Other Fungal Culture - Preliminary No growth in 2 weeks 10/04/18 16:05 Wound - Other Acid Fast Bacilli Smear - Final No acid fast bacilli seen 10/04/18 16:05 Wound - Other Mycobacterial Culture - Preliminary No growth in 2 weeks 10/04/18 16:05 Wound - Other Fungal Smear - Final No fungal elements seen 10/04/18 16:05 Wound - Other Fungal Culture - Preliminary No growth in 2 weeks 10/04/18 16:05 Wound - Other Acid Fast Bacilli Smear - Final No acid fast bacilli seen 10/04/18 16:05 Wound - Other Mycobacterial Culture - Preliminary No growth in 2 weeks Imaging Imaging: Impressions Chest X-Ray 10/18/18 16:16 CONCLUSION: No acute cardiopulmonary disease. There is no definite evidence of pneumonia. Procedures Procedures: L2-S1 posterior spinal fusion Pedicle screws fixation L2, L3, L4 6.5x50mm and s1 7.5x45, Rods [id number], Spine Wave system Use of 3D fluoroscopy (1) Suppurative tenosynovitis of flexor tendon of left hand Comment: open wound left palm/ring finger - Postoperative Diagnosis (1) Suppurative tenosynovitis of flexor tendon of left hand Comment: open wound left palm/ring finger Date of procedure: 10/13/18 Procedure: wash, debridement and application of dehydrated human amnion/chorion membrane allograft left ring finger/palm Anesthesia: other (general with LMA) Surgeon: Slim Slaughter MD Assessment and Plan (1) Hoarse voice quality: Code(s): R49.0 - Dysphonia Status: Acute Onset Date: 10/04/18 Plan - ACUTE L4-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 Albicans, currently on amphotericin B since 10/06/18 and Cefoxitin 2gm IV Q6H +Biaxin until 10/25/18 per ID -Appreciate input from neurosurgery, who has cleared patient for discharge. PIA drain removed 10/10/18 -TLSO brace when out of bed -PT following. -10/12: As per ID specialist Recommended to continue Amphotericin B, anticipated 8 to 12 weeks of antifungal for discitis/ Osteomyelitis due to Portia, to monitor renal function and Potassium, Continue Biaxin until 10/25/18. 10/15: worsening leukocytosis will trend tomorrow, no fever, prob reactive post op. - CHRONIC PAIN SYNDROME/OPOID DEPENDENCE - Required critical care to manage pain following surgery (received methadone IV, ketamine, and and versed on 10/04 to control pain) - Continue gabapentin 300 mg TID - Continue Mobic daily - Clonidine 0.2mg po q8h - Oxycodone 30mg po q4h prn and p.o. Dilaudid - baclofen and flexeril prn - SUPPURATIVE TENOSYNOVITIS of flexor tendon of left hand - s/p exploration, wash, repair of wound dehiscence, left palm/ring finger on 09/13 - Status post Wash debridement and application of dehydrated human amnion/ chorion membrane allograft left ring finger palm. by Doctor Slim Slaughter. 10/13/18 - ATRIAL FIBRILLATION -paroxysmal - Currently rate-controlled - continue Eliquis , but monitor hh - Continue Diltiazem for rate controlled - HTN better. - Continue ramipril and furosemide -DIABETES insulin dependent - - A1c 7.8 - Continue Levemir 35 units AM, and Levemir 25 units at bedtime, Pre meal 5 units of regular insulin, iss. hypoglycemia this am, montior diet adjust pm dose if persistent am hypoglycemia - ANEMIA of ACUTE BLOOD LOSS and IRON DEFICIENCY ANEMIA, check guiac, start mvi and iron - monitor H&H and transfuse for hemoglobin less than 7 - CONTACT DERMATITIS probable related to contact with wet bed encourage ambulation and try to sit down instead of staying in bed on Supine position. as per ID probable from antibiotics. - LEFT VOCAL CORD PARALYSIS w DYSPHONIA Seen by ENT may be related to Intubation may be temporary, Speech therapy to be continued and supportive tx. - L SUPRACLAVICULAR LAD, R LUNG RML 7mm opacity per ct neck and chest - needs outpatient followup after completes antibiotics. -LEUKOCYTOSIS appreciate ID f/u, get cxr, sputum cx. -CATHETER RELATED INFECTION DUE TO PICC, THROMBUS prox,midcephalic vein of RUE related to PICC line cont abx and eliquis -DISPO - dc to rehab when ok with surgery and ID, when leukocytosis resolved. DVT prophylaxis: SCDs Code Status: Progress Note: Quality VTE Deep Vein Thrombosis/Pulmonary Embolism Present on Admission: No
[2018-10-18] MEDS: dilTIAZem CD 240 MG Capsule PO SCH (17:46)
[2018-10-18] MEDS ORDERED: Sod Chloride 0.9% Inj 1,000 ML IV.SIG SCH (18:19)
[2018-10-18 22:49] LABS: Amphetamine Screen,Urine Neg (Neg); Barbiturate Screen,Urine Neg (Neg); Cannabinoid Screen,Urine Neg (Neg); Cocaine Screen,Urine Neg (Neg)
[2018-10-18 23:02] LABS: Opiate Screen,Urine Neg (Neg)
[2018-10-19] MEDS: Meloxicam 7.5 MG Tablet PO SCH (06:25)
[2018-10-19] MEDS: Baclofen 10 MG Tablet PO SCH ×3 (06:25→21:12)
[2018-10-19 07:49] LABS: Baso # (Auto) 0.1 th/mm3 (0.0-0.2); Baso % (Auto) 0.5 % (0.0-2.0); Eos # (Auto) 0.2 th/mm3 (0.0-0.4); Eos % (Auto) 1.7 % (0.0-4.0); Hematocrit 21.1 % (39.0-51.0); Lymph # (Auto) 1.5 th/mm3 (1.0-4.8); Lymph % (Auto) 10.5 % (9.0-44.0); Mean Corpuscular HGB Conc 33.3 % (32.0-36.0); Mean Corpuscular Hemoglobin 25.9 pg (27.0-34.0); Mean Corpuscular Volume 77.7 fL (80.0-100.0); Mean Platelet Volume 6.4 fL (7.0-11.0); Mono % (Auto) 7.1 % (0.0-8.0); Neut # (Auto) 11.6 th/mm3 (1.8-7.7); Neut % (Auto) 80.2 % (16.0-70.0); Platelet Count 531 th/mm3 (150-450); Red Blood Count 2.71 mil/mm3 (4.50-5.90); Red Cell Distribution Width 16.9 % (11.6-17.2); White Blood Count 14.5 th/mm3 (4.0-11.0)
[2018-10-19] MEDS: Gabapentin 300 MG Capsule PO SCH ×3 (08:38→17:24)
[2018-10-19] MEDS: Insulin NovoLOG Aspart Correctional Sugar Inj SQ SCH ×4 (08:38→21:06)
[2018-10-19] MEDS: Ramipril 2.5 MG Capsule PO SCH (08:38)
[2018-10-19] MEDS: Multivitamin/Minerals Therapeutic Tablet PO SCH (08:38)
[2018-10-19] MEDS: Senna/Docusate Sodium 8.6/50 MG Tablet PO SCH ×2 (08:38→21:05)
[2018-10-19] MEDS: Polysaccharide Iron Complex 150 MG Capsule PO SCH ×2 (08:38→21:05)
[2018-10-19] MEDS: Furosemide 20 MG Tablet PO SCH ×2 (08:38→21:05)
[2018-10-19] MEDS: Insulin Detemir Inj 1,000 UNIT/10 ML Vial SQ SCH ×2 (08:39→21:06)
[2018-10-19] MEDS: Sodium Chloride 0.9% 2 ML Flush BID IV.FLUSH SCH ×2 (08:39→21:05)
[2018-10-19] MEDS ORDERED: dilTIAZem CD 120 MG Capsule PO SCH (09:45)
[2018-10-19] MEDS: Micafungin Inj 150 MG in Sodium Chlor 0.9% Inj 100 ML IV.SIG SCH (11:00)
[2018-10-19] MEDS: dilTIAZem CD 120 MG Capsule PO SCH (17:24)
--- NOTE | 2018-10-19 18:21 | P.PNIM ---
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 anticipated 8 to 12 weeks of antifungal for discitis , osteomyelitis due to Portia, stopped Cefoxitin, and continue Biaxin until 10/25/18. 10/13: Status post Closure of wound dehiscence left hand/ring finger with left wrist pain he will have Flap coverage versus wound closure left hand/ring finger for today. 10/15: Seen by ENT specialist due to Dysphonia, found with Left Vocal Cord Paresis, ,may be related to Intubation may be temporary, CT ordered found left Supraclavicular adenopathy, Speech therapy following and will need Speech therapy as outpatient, also needs rehab on discharge, no nausea, vomit or diarrhea. 10/19 pt seen and examined, he is doing ok denies sob no nv, no fever, no diarrhea, no events overnight, states hes not getting enough food that he requests. Physical Exam Vital signs: Last Vital Signs Temp 98.0 F 10/19/18 12:00 Pulse 65 10/19/18 12:00 Resp 16 10/19/18 12:00 BP 104/47 L 10/19/18 12:00 Pulse Ox 98 10/19/18 12:00 Intake & Output 10/17/18 10/18/18 10/19/18 10/20/18 06:59 06:59 06:59 06:59 Intake Total 1680 / 1680 1060 / 1060 2700 / 2700 200 / 200 Output Total 3100 / 3100 1700 / 1700 3200 / 3200 Balance -1420 / -1420 -640 / -640 -500 / -500 200 / 200 Weight 91.7 kg 96 kg 93.8 kg gen aaox3 nad speaks in a breathy voice but understandable heart s1s2 reg mild lungs clear no wrr, abd soft nondt pos bs incision back, clean no drainage ext left hand bandaged, no le edema, Urinary Catheter Management Indwelling Urethral Catheter: Cath placed during this visit: yes, but has since been removed by the nurse Removal date: 10/05/18 Removal time: 09:30 Results Labs CBC & Chem 7: 10/19/18 06:35 10/16/18 16:05 Labs: Microbiology 10/04/18 16:56 Tissue - Other Fungal Smear - Final No fungal elements seen 10/04/18 16:56 Tissue - Other Fungal Culture - Preliminary No growth in 2 weeks 10/04/18 16:56 Tissue - Other Acid Fast Bacilli Smear - Final No acid fast bacilli seen 10/04/18 16:56 Tissue - Other Mycobacterial Culture - Preliminary No growth in 2 weeks 10/04/18 16:05 Wound - Other Fungal Smear - Final No fungal elements seen 10/04/18 16:05 Wound - Other Fungal Culture - Preliminary No growth in 2 weeks 10/04/18 16:05 Wound - Other Acid Fast Bacilli Smear - Final No acid fast bacilli seen 10/04/18 16:05 Wound - Other Mycobacterial Culture - Preliminary No growth in 2 weeks 10/04/18 16:05 Wound - Other Fungal Smear - Final No fungal elements seen 10/04/18 16:05 Wound - Other Fungal Culture - Preliminary No growth in 2 weeks 10/04/18 16:05 Wound - Other Acid Fast Bacilli Smear - Final No acid fast bacilli seen 10/04/18 16:05 Wound - Other Mycobacterial Culture - Preliminary No growth in 2 weeks Procedures Procedures: L2-S1 posterior spinal fusion Pedicle screws fixation L2, L3, L4 6.5x50mm and s1 7.5x45, Rods [id number], Spine Wave system Use of 3D fluoroscopy (1) Suppurative tenosynovitis of flexor tendon of left hand Comment: open wound left palm/ring finger - Postoperative Diagnosis (1) Suppurative tenosynovitis of flexor tendon of left hand Comment: open wound left palm/ring finger Date of procedure: 10/13/18 Procedure: wash, debridement and application of dehydrated human amnion/chorion membrane allograft left ring finger/palm Anesthesia: other (general with LMA) Surgeon: Slim Slaughter MD Assessment and Plan (1) Hoarse voice quality: Code(s): R49.0 - Dysphonia Status: Acute Onset Date: 10/04/18 Plan - ACUTE L4-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 Albicans, currently on amphotericin B since 10/06/18 and Cefoxitin 2gm IV Q6H +Biaxin until 10/25/18 per ID -Appreciate input from neurosurgery, who has cleared patient for discharge. PIA drain removed 10/10/18 -TLSO brace when out of bed -PT following. -10/12: As per ID specialist Recommended to continue Amphotericin B, anticipated 8 to 12 weeks of antifungal for discitis/ Osteomyelitis due to Portia, to monitor renal function and Potassium, Continue Biaxin until 10/25/18. 10/15: worsening leukocytosis will trend tomorrow, no fever, prob reactive post op. - CHRONIC PAIN SYNDROME/OPOID DEPENDENCE - Required critical care to manage pain following surgery (received methadone IV, ketamine, and and versed on 10/04 to control pain) - Continue gabapentin 300 mg TID - Continue Mobic daily - Clonidine 0.2mg po q8h - Oxycodone 30mg po q4h prn and p.o. Dilaudid - baclofen and flexeril prn - SUPPURATIVE TENOSYNOVITIS of flexor tendon of left hand - s/p exploration, wash, repair of wound dehiscence, left palm/ring finger on 09/13 - Status post Wash debridement and application of dehydrated human amnion/ chorion membrane allograft left ring finger palm. by Doctor Slim Slaughter. 10/13/18 - ATRIAL FIBRILLATION -paroxysmal - Currently rate-controlled - continue Eliquis , but monitor hh - Continue Diltiazem for rate controlled - HTN better. - Continue ramipril and furosemide -DIABETES insulin dependent - - A1c 7.8 - Continue Levemir 35 units AM, and Levemir 25 units at bedtime, Pre meal 5 units of regular insulin, iss. hypoglycemia this am, montior diet adjust pm dose if persistent am hypoglycemia - ANEMIA of ACUTE BLOOD LOSS and IRON DEFICIENCY ANEMIA, check guiac, start mvi and iron - monitor H&H and transfuse for hemoglobin less than 7 - CONTACT DERMATITIS probable related to contact with wet bed encourage ambulation and try to sit down instead of staying in bed on Supine position. as per ID probable from antibiotics. - LEFT VOCAL CORD PARALYSIS w DYSPHONIA Seen by ENT may be related to Intubation may be temporary, Speech therapy to be continued and supportive tx. - L SUPRACLAVICULAR LAD, R LUNG RML 7mm opacity per ct neck and chest - needs outpatient followup after completes antibiotics. -LEUKOCYTOSIS appreciate ID f/u, cxr is neg for acute findings, no fever, clinially stable -CATHETER RELATED INFECTION DUE TO PICC, and THROMBUS in prox,midcephalic vein of RUE related to PICC line cont abx and eliquis -DISPO - dc to rehab vs home w hhx, when ok with surgery and ID, when leukocytosis resolved. DVT prophylaxis:scd Code Status: Progress Note: Quality VTE Deep Vein Thrombosis/Pulmonary Embolism Present on Admission: No
[2018-10-20] MEDS: Baclofen 10 MG Tablet PO SCH ×3 (05:26→21:00)
[2018-10-20] MEDS: Polysaccharide Iron Complex 150 MG Capsule PO SCH ×2 (08:00→20:58)
[2018-10-20] MEDS: Senna/Docusate Sodium 8.6/50 MG Tablet PO SCH ×2 (08:00→20:59)
[2018-10-20] MEDS: Multivitamin/Minerals Therapeutic Tablet PO SCH (08:00)
[2018-10-20] MEDS: Gabapentin 300 MG Capsule PO SCH ×3 (08:00→17:30)
[2018-10-20] MEDS: Insulin Detemir Inj 1,000 UNIT/10 ML Vial SQ SCH ×2 (08:00→21:02)
[2018-10-20] MEDS: Furosemide 20 MG Tablet PO SCH ×2 (08:00→20:58)
[2018-10-20] MEDS: Ramipril 2.5 MG Capsule PO SCH (08:01)
[2018-10-20] MEDS: Insulin NovoLOG Aspart Correctional Sugar Inj SQ SCH ×4 (08:01→21:02)
[2018-10-20] MEDS: Sodium Chloride 0.9% 2 ML Flush BID IV.FLUSH SCH ×2 (08:02→20:59)
[2018-10-20] MEDS: Micafungin Inj 150 MG in Sodium Chlor 0.9% Inj 100 ML IV.SIG SCH (12:32)
[2018-10-20] MEDS: dilTIAZem CD 120 MG Capsule PO SCH (16:35)
--- NOTE | 2018-10-20 17:10 | XR ---
EXAM DATE: 10/20/2018 5:03 PM EST AGE/SEX: 58 years / Male INDICATIONS: Wrist pain post fall. CLINICAL DATA: This is the patient's initial encounter. Patient reports that signs and symptoms have been present for 1 day and indicates a pain score of 4/10. MEDICAL/SURGICAL HISTORY: None. None. [place]PAR[place]: [facility] [place]TE LEFT MIN 3V, 10/03/2018. . FINDINGS: No fractures demonstrated of the right wrist. Scapholunate interval is slightly widened at approximat taurus 3.1 mm. There also appears to be slight dorsal tilt of the lunate in the imaged position. No acut e appearing malalignment. 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 CONCLUSION: 1. No acute fracture or acute appearing malalignment of the right wrist. 2. Suspected early or mild scapholunate associated collapse and dorsal intercalated segmental instab ility. 3. 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 Electronically signed by: Collin Wright MD 10/20/2018 5:08 PM EST
--- NOTE | 2018-10-20 17:13 | XR ---
EXAM DATE: 10/20/2018 5:06 PM EST AGE/SEX: 58 years / Male INDICATIONS: Low back pain post fall. CLINICAL DATA: This is the patient's initial encounter. Patient reports that signs and symptoms have been present for 1 day and indicates a pain score of 9/10. MEDICAL/SURGICAL HISTORY: None. Fusion, lumbar. COMPARISON: [facility] – [place], CT LUMBAR SPINE W CONTRAST, 10/01/2018. . FINDINGS: Changes of a recent posterior fusion procedure from L2 through S1 again noted. Endplate destruction a gain seen on both sides of the L4/L5 intervertebral disc. More typical-appearing severe disc space na rrowing seen at L5/S1. No fracture or subluxation in the operative region. Alignment remains near-aditya tomic. No evidence of hardware failure or loosening. However, there is mild superior and inferior endplate irregularity and slight loss of height of the L 1 vertebral body which appears changed. No retropulsed fragments are demonstrated. CONCLUSION: 1. A suspected new/acute, mild compression fracture of L1. No retropulsed fragments are seen. 2. Recent postop fusion from L2 through S1 without evidence of an acute complication in the operativ e region. Electronically signed by: Collin Wright MD 10/20/2018 5:12 PM EST
--- NOTE | 2018-10-20 18:08 | P.PNIM ---
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 anticipated 8 to 12 weeks of antifungal for discitis , osteomyelitis due to Portia, stopped Cefoxitin, and continue Biaxin until 10/25/18. 10/13: Status post Closure of wound dehiscence left hand/ring finger with left wrist pain he will have Flap coverage versus wound closure left hand/ring finger . 10/15: Seen by ENT specialist due to Dysphonia, found with Left Vocal Cord Paresis, ,may be related to Intubation may be temporary, CT ordered found left Supraclavicular adenopathy, Speech therapy following and will need Speech therapy as outpatient, also needs rehab on discharge, no nausea, vomit or diarrhea. 10/20 pt seen and examined, patient had witness fall in his room, he was standing with his walker when he says his left leg gave out and he fell back and landed on his buttocks, he was denying any injury when he was promptly assisted, as he was assisted up off the floor , he was able to stand and step to bed. He had no preceding symptoms of dizziness, sob, cp or syncope, and denies any loc or head trauma. he is complaining of right wrist pain and left leg weakness which is not new. Physical Exam Vital signs: Last Vital Signs Temp 98.8 F 10/20/18 13:50 Pulse 74 10/20/18 13:50 Resp 16 10/20/18 13:50 BP 110/56 L 10/20/18 13:50 Pulse Ox 97 10/20/18 12:50 Intake & Output 10/18/18 10/19/18 10/20/18 10/21/18 06:59 06:59 06:59 06:59 Intake Total 1060 / 1060 2700 / 2700 2200 / 2200 1200 / 1200 Output Total 1700 / 1700 3200 / 3200 1200 / 1200 2475 / 2475 Balance -640 / -640 -500 / -500 1000 / 1000 -1275 / -1275 Weight 96 kg 93.8 kg 94 kg chronically disheveled appearing [id number] m aaox3 no acute distress heart s1s2 reg lungs clear no wrr abd soft nondt pos bs ext left leg weakness with extension at hip and knee and ankle erythema and tenderness at left wrist, and lumbar spine incision no change. Urinary Catheter Management Indwelling Urethral Catheter: Cath placed during this visit: yes, but has since been removed by the nurse Removal date: 10/05/18 Removal time: 09:30 Results Labs CBC & Chem 7: 10/19/18 06:35 10/16/18 16:05 Imaging Imaging: Impressions Lumbar Spine X-Ray 10/20/18 00:00 CONCLUSION: 1. A suspected new/acute, mild compression fracture of L1. No retropulsed fragments are seen. 2. Recent postop fusion from L2 through S1 without evidence of an acute complication in the operative region. Wrist X-Ray 10/20/18 00:00 CONCLUSION: 1. No acute fracture or acute appearing malalignment of the right wrist. 2. Suspected early or mild scapholunate associated collapse and dorsal intercalated segmental instability. 3. 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 Procedures Procedures: L2-S1 posterior spinal fusion Pedicle screws fixation L2, L3, L4 6.5x50mm and s1 7.5x45, Rods [id number], Spine Wave system Use of 3D fluoroscopy (1) Suppurative tenosynovitis of flexor tendon of left hand Comment: open wound left palm/ring finger - Postoperative Diagnosis (1) Suppurative tenosynovitis of flexor tendon of left hand Comment: open wound left palm/ring finger Date of procedure: 10/13/18 Procedure: wash, debridement and application of dehydrated human amnion/chorion membrane allograft left ring finger/palm Anesthesia: other (general with LMA) Surgeon: Slim Slaughter MD Assessment and Plan (1) Hoarse voice quality: Code(s): R49.0 - Dysphonia Status: Acute Onset Date: 10/04/18 Plan ACUTE L4-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 Albicans, currently on amphotericin B since 10/06/18 and Cefoxitin 2gm IV Q6H +Biaxin until 10/25/18 per ID -Appreciate input from neurosurgery, who has cleared patient for discharge. PIA drain removed 10/10/18 -TLSO brace when out of bed -PT following. -10/12: As per ID specialist Recommended to continue Amphotericin B, anticipated 8 to 12 weeks of antifungal for discitis/ Osteomyelitis due to Portia, to monitor renal function and Potassium, Continue Biaxin until 10/25/18. 10/15: worsening leukocytosis will trend tomorrow, no fever, prob reactive post op. NONSYNCOPAL FALL 10/20 - xray r wrist and ls - ? acute compression fx l1, follow up w ortho, cont pain control and fall precautions discussed with patient , hes agreeable. CHRONIC PAIN SYNDROME/OPOID DEPENDENCE - Required critical care to manage pain following surgery (received methadone IV, ketamine, and and versed on 10/04 to control pain) - Continue gabapentin 300 mg TID - Continue Mobic daily - Clonidine 0.2mg po q8h - Oxycodone 30mg po q4h prn and p.o. Dilaudid - baclofen and flexeril prn SUPPURATIVE TENOSYNOVITIS of flexor tendon of left hand - s/p exploration, wash, repair of wound dehiscence, left palm/ring finger on 09/13 - Status post Wash debridement and application of dehydrated human amnion/ chorion membrane allograft left ring finger palm. by Doctor Slim Slaughter. 10/13/18 ATRIAL FIBRILLATION -paroxysmal - Currently rate-controlled - continue Eliquis , but monitor hh - Continue Diltiazem for rate controlled HTN better. - Continue ramipril and furosemide DIABETES insulin dependent - - A1c 7.8 - Continue Levemir 35 units AM, and Levemir 25 units at bedtime, Pre meal 5 units of regular insulin, iss. hypoglycemia this am, montior diet adjust pm dose if persistent am hypoglycemia ANEMIA of ACUTE BLOOD LOSS and IRON DEFICIENCY ANEMIA, check guiac, start mvi and iron - monitor H&H and transfuse for hemoglobin less than 7 CONTACT DERMATITIS probable related to contact with wet bed encourage ambulation and try to sit down instead of staying in bed on Supine position. as per ID probable from antibiotics. LEFT VOCAL CORD PARALYSIS w DYSPHONIA Seen by ENT may be related to Intubation may be temporary, Speech therapy to be continued and supportive tx. L SUPRACLAVICULAR LAD, R LUNG RML 7mm opacity per ct neck and chest - needs outpatient followup after completes antibiotics. LEUKOCYTOSIS appreciate ID f/u, cxr is neg for acute findings, no fever, clinially stable CATHETER RELATED INFECTION DUE TO PICC, and THROMBUS in prox,midcephalic vein of RUE related to PICC line cont abx and eliquis -DISPO - dc home w hhx, when ok with surgery and ID when iv abx arranged. DVT prophylaxis:scd Code Status: Progress Note: Quality VTE Deep Vein Thrombosis/Pulmonary Embolism Present on Admission: No
--- NOTE | 2018-10-20 21:48 | P.PN ---
Subjective Interval history: NOT seen Physical Exam Vital signs: Vital Signs 10/20/18 00:00 10/20/18 00:30 10/20/18 04:00 Temperature 98.2 F 98.3 F Pulse Rate 71 73 Respiratory Rate 18 17 18 Blood Pressure 134/63 152/74 H Pulse Oximetry 98 97 10/20/18 04:30 10/20/18 07:55 10/20/18 09:15 Temperature 98 F Pulse Rate 72 Respiratory Rate 17 18 16 Blood Pressure 125/76 Pulse Oximetry 100 10/20/18 11:50 10/20/18 12:00 10/20/18 12:50 Temperature 98.7 F 98.8 F Pulse Rate 83 84 70 Respiratory Rate 18 Blood Pressure 123/64 110/56 L 111/56 L Pulse Oximetry 100 100 97 10/20/18 13:05 10/20/18 13:50 10/20/18 14:50 Temperature 98.8 F Pulse Rate 74 73 Respiratory Rate 18 16 20 Blood Pressure 110/56 L 114/58 L Pulse Oximetry 10/20/18 20:00 Temperature 98.6 F Pulse Rate 67 Respiratory Rate 18 Blood Pressure 113/67 Pulse Oximetry 98 Intake & Output 10/20/18 10/20/18 10/21/18 06:59 18:59 06:59 Intake Total 100 / 100 1200 / 1200 Output Total 2475 / 2475 Balance 100 / 100 -1275 / -1275 Weight 94 kg Intake: IV 100 / 100 Tygacil Inj 50 MG In NS Inj 100 100 / 100 ML @ 200 mls/hr IV.SIG Q12H ROBBIE Rx#:[id number] Oral 1200 / 1200 Output: Urine 2475 / 2475 Other: # Incontinent Bowel Movements 1 Narrative: GENERAL: No acute distress. LUNGS: Breath sounds decreased. HEART: Regular S1, S2, without murmurs, rubs or gallops. ABDOMEN: Bowel sounds present; flat, soft, non tender. EXTREMITIES: No clubbing or cyanosis or edema. SKIN: Light rash on the back mostly faded from previous. NEUROLOGIC: Nonfocal. Weakness at the left lower extremity. PSYCHIATRIC: Calm. - Urinary Catheter Management Indwelling Urethral Catheter Cath placed during this visit: yes, but has since been removed by the nurse Reason for continuing: Decision to DC catheter Removal date: 10/05/18 Removal time: 09:30 Results - Labs CBC & Chem 7: 11/24/18 06:35 10/16/18 16:05 Laboratory Results - last 24 hr 10/20/18 10/20/18 10/20/18 07:55 11:56 16:32 POC Glucose 89 95 146 H 10/20/18 21:02 POC Glucose 122 H - Imaging ITS Impressions Venous Doppler Study 09/23/18 13:35 CONCLUSION: 1. Occlusive thrombus in the proximal and mid cephalic vein. 2. Deep venous system is otherwise patent. 3. Heterogeneous hypoechoic collection along the right shoulder which could represent a hematoma and/or seroma. Lumbar Spine MRI 09/25/18 00:00 CONCLUSION: 1. Findings are diagnostic of discitis osteomyelitis at L4-L5 with epidural abscess posterior to the L4 and L5 vertebral body. This epidural material along with facet hypertrophy moderately narrows the spinal canal at this level. There additionally is some perivertebral enhancing material likely representing small perivertebral abscess. It is challenging to compare to the prior study since it was significantly degraded by motion artifact. However, the findings are similar and do not appear improved. 2. There is mild edema within the L2 disc space and minimal endplate irregularity and enhancement of L2. These changes could be secondary to degenerative disc disease but cannot exclude early discitis. Suggest attention to this area at follow-up imaging. Lumbar Spine CT 10/01/18 00:00 CONCLUSION: 1. Destructive changes again noted involving the endplates at the L4-5 level consistent with the known discitis/osteomyelitis. There is abnormal soft tissue density the anterior epidural space consistent with the known epidural abscess. This does not appear significantly changed from the MRI examination. There is moderate central canal stenosis at this level. 2. Mild to moderate central canal stenosis also noted at the L2-3 level secondary to disc osteophyte complexes and degenerative change involving the facets. 3. Stable mild anterior spondylolisthesis of L4 on L5. Chest CT 10/15/18 00:00 CONCLUSION: 1. 7 mm nodular opacity in the right middle lobe: Surveillance recommended with follow-up scan in 6 months. 2. Mild interstitial prominence which may be inflammatory. 3. No evidence of consolidating airspace disease or pleural effusions. Soft Tissue Neck CT 10/15/18 00:00 CONCLUSION: 1. Left supraclavicular adenopathy. 2. Multiple small thyroid nodules bilaterally. Chest X-Ray 10/18/18 16:16 CONCLUSION: No acute cardiopulmonary disease. There is no definite evidence of pneumonia. Lumbar Spine X-Ray 10/20/18 00:00 CONCLUSION: 1. A suspected new/acute, mild compression fracture of L1. No retropulsed fragments are seen. 2. Recent postop fusion from L2 through S1 without evidence of an acute complication in the operative region. Wrist X-Ray 10/20/18 00:00 CONCLUSION: 1. No acute fracture or acute appearing malalignment of the right wrist. 2. Suspected early or mild scapholunate associated collapse and dorsal intercalated segmental instability. 3. 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 - Procedures L2-S1 posterior spinal fusion Pedicle screws fixation L2, L3, L4 6.5x50mm and s1 7.5x45, Rods [id number], Spine Wave system Use of 3D fluoroscopy wash, debridement and application of dehydrated human amnion/chorion membrane allograft left ring finger/palm Assessment and Plan - Assessment (1) Hoarse voice quality Code(s): R49.0 - Dysphonia Status: Acute Onset Date: 10/04/18 - Plan 1. Catheter related infection from PICC line. 2. Thrombus of the right upper extremity related to PICC line. 3. 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 Sedimentation rate remain elevated. Continue Micafungin anticipate 8 - 12 weeks of antifungal for discitis / osteomyelitis due to Portia. 12/04/2017( 8 weeks) vs - 01/04/2018(12) weeks. Reinstate tigecycline because the sedimentation rate has not showed improvement. 4. 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 Continue Biaxin until 10/25. Followed by hand surgeon. Reportedly tendon was exposed. 5. Chronic pain on narcs. 6. Rash now appears to be due to pressure from patient laying on his back all day. 7. Leukocytosis. No clear etiology. Patient has been laying on his back and taking liquids. He potentially could be aspirating. 8. VC paresis related to intubation. S/P ENT eval, expect slow recovery 9. thyroid nodule. US in 6 mos 10[address] ML nodule. CT in 6 mos 11. Atrial fibrillation currently rate-controlled. Ct Eliquis and CCB Diltiazem 12. HTN . Continue ramipril and furosemide 13. Diabetes mellitus. A1c 7.8. Continue Levemir 35 units AM, and Levemir 25 units at bedtime, SSI with Accu-Cheks per protocol 14. Anemia of acute blood loss. Monitor H&H and transfuse for hemoglobin less than 7 15. S/p fall with L1 compression injury and Suspected early or mild scapholunate associated collapse and dorsal intercalated segmental instability. DVT prophylaxis: SCDs and eliquis Discharge Planning: Rehab if arranged, [facility]
--- NOTE | 2018-10-21 05:36 | P.PNNS ---
Subjective Interval history: called by floor nurse indicating patient had fallen, l-spine xrays obtained showing small L1 compression Physical Exam Vital signs: Vital Signs 10/20/18 07:55 10/20/18 09:15 10/20/18 11:50 Temperature 98 F Pulse Rate 72 83 Respiratory Rate 18 16 Blood Pressure 125/76 123/64 Pulse Oximetry 100 100 10/20/18 12:00 10/20/18 12:50 10/20/18 13:05 Temperature 98.7 F 98.8 F Pulse Rate 84 70 Respiratory Rate 18 18 Blood Pressure 110/56 L 111/56 L Pulse Oximetry 100 97 10/20/18 13:50 10/20/18 14:50 10/20/18 20:00 Temperature 98.8 F 98.6 F Pulse Rate 74 73 67 Respiratory Rate 16 20 18 Blood Pressure 110/56 L 114/58 L 113/67 Pulse Oximetry 98 10/20/18 21:30 10/21/18 00:00 10/21/18 03:03 Temperature 99.1 F Pulse Rate 69 Respiratory Rate 18 18 17 Blood Pressure 184/88 H Pulse Oximetry 98 10/21/18 04:00 Temperature 98.9 F Pulse Rate 75 Respiratory Rate 18 Blood Pressure 191/70 H Pulse Oximetry 98 Intake & Output 10/20/18 10/20/18 10/21/18 06:59 18:59 06:59 Intake Total 100 / 100 1400 / 1400 Output Total 2475 / 2475 Balance 100 / 100 -1075 / -1075 Weight 94 kg Intake: IV 100 / 100 200 / 200 Mycamine Inj 150 MG In NS Inj 100 / 100 100 ML @ 100 mls/hr IV.SIG Q24H ROBBIE Rx#:[id number] Tygacil Inj 50 MG In NS Inj 100 100 / 100 100 / 100 ML @ 200 mls/hr IV.SIG Q12H ROBBIE Rx#:[id number] Oral 1200 / 1200 Output: Urine 2475 / 2475 Other: # Incontinent Bowel Movements 1 - Urinary Catheter Management Indwelling Urethral Catheter Cath placed during this visit: yes, but has since been removed by the nurse Reason for continuing: Decision to DC catheter Removal date: 10/05/18 Removal time: 09:30 Assessment and Plan - Plan MRI: 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 Plan: 10/01/18: Given the persistent symptoms, it is reasonable to stabilize his spine with instrumentation from L2-S1 and simultaneously do a laminectomy at L4/5 to get cultures. Patient understands the risks of surgery including paralysis and sepsis, and wishes to proceed. I discussed with ID and the medicine team. There is risk of instrumentation failure down the line due to persistent infection and his history of susceptibility to infections. However, conservative measures do not look like they are working with IV abx and bracing does not seem to be helping. We will proceed tomorrow with surgery, monitoring , instrumentation, concentric C. 10/02/18: Surgery today postpone as patient got one dose of eliquis on 10/01 in the morning. Recommendations to wait 48 hours given heavy risk of bleeding and already low preop H/H of 8.3/24. Type and Cross to be performed for full antibody panel, plan Sunday noon case at present. Discussed with patient, anesthesiologist and primary team Adela CRAIG. 10/03/18: surgery with Dr. Groves planned for tomorrow. NPO tonight at midnight. 10/04/18: surgery tentatively 1:30 today 10/05/18: Follow cultures from OR -- ID. Mobilize (ok to have brace off for short distances, would prefer to use brace when walking long distance). D/c maki. Pain control and ok for transfer back to primary service. Continue to monitor drain output. L-spine xrays today. 10/06/18: Xrays look good. OR cultures -- 1 positive for Portia, rest pending. Mobilize. D/c check inspector tomorrow per primary team. Transferred to floor. Brace when walking long distances-- PT. 10/07/18: cont PIA draining for today given his infection. f/u cultures, cont abx therapy per ID. Brace when ambulating, cont PT 10/08: keep PIA in today, monitor output and reassess tomorrow. ROSMERY dressing removed, replaced with Optifoam dressing to be changed daily. dw nursing, will return tomorrow 10/09: clear to remove PIA drain today. continue bid primapore changes and wound monitoring. hill to be removed 10/16/18. cont therapy, brace when OOB. ok to dc to SNF/rehab from [facility] standpoint once abx tx arranged. katie aguilar for patient to resume his Eliquis 10/11: D/c PIA Drain today. NSG will follow peripherally going forward. 10/21: CT L-spine given small L1 compression. Continue bracing. No further intervention needed at this time. Hill should be dc'd now.
[2018-10-21] MEDS: Baclofen 10 MG Tablet PO SCH ×4 (05:57→21:46)
--- NOTE | 2018-10-21 09:06 | CT ---
EXAM DATE: 10/21/2018 8:48 AM EST AGE/SEX: 58 years / Male INDICATIONS: Lumbar fracture. CLINICAL DATA: This is the patient's initial encounter. Patient reports that signs and symptoms have been present for 1 day and indicates a pain score of 7/10. MEDICAL/SURGICAL HISTORY: Gastroesophageal reflux disease. Diabetes. Hypertension. . Lumbar surge ry. RADIATION DOSE: 35.80 CTDI (mGy) COMPARISON: [facility] [place], CT LUMBAR SPINE W CONTRAST, 10/01/2018. . TECHNIQUE: Contiguous axial images were acquired with a multirow detector CT scanner without contras t. Multiplanar reconstructions in the sagittal and coronal plane were also performed. Using automate d exposure control and adjustment of the mA and/or kV according to patient size, radiation dose was k ept as low as reasonably achievable to obtain optimal diagnostic quality images. DICOM format image data is available electronically for review and comparison. FINDINGS: Sagittal and coronal reformats demonstrate fusion hardware extending from L2 down to S1. There are de structive changes involving the endplates across the L4-5 disc level. The overall amount of destructi on of the vertebral bodies appears similar to the previous examination dated 10/01/2018. There is mini mal anterolisthesis of L4 relative to L5. Findings would suggest previous discitis/osteomyelitis acro ss this level. The remainder of the vertebral bodies appear intact. There is a severely degenerated disc at L1-2. Th is appears similar to previous exam. Axial imaging: T12/L1: There is minimal disc bulge. There is mild facet arthritis bilaterally. The thecal space and foramina appear adequate. L1/L2: There is a broad-based disc bulge. This effaces the ventral thecal sac. There is mild encroach ment of disc bulge on the lateral recess and base of the foramina bilaterally. There is moderate face t arthritis bilaterally. L2/L3: This level is fused. The thecal space and foramina appear adequate. L3/L4: There is broad-based disc bulge. There is moderate facet arthritis bilaterally. There has been previous laminectomy at this level. L4/5: This level is fused. There are destructive changes within the endplates of the L4 and L5 verteb ral bodies. There is been previous laminectomy. The thecal space appears adequate. There is abnormal soft tissue extending into the foramina bilaterally. L5-S1: This level is fused. There is a degenerated disc with a broad-based disc bulge. The thecal spa ce and foramina appear adequate. There is soft tissue evident along the anterior aspect of the verteb ral endplates. CONCLUSION: 1. There has been interval fusion from L2 down to S1. There is minimal anterolisthesis of L4 on L5. There has been previous laminectomy at L4 and L5. 2. Destructive changes in the L4-5 endplates consistent with patient's history of previous discitis. There is paraspinous soft tissue extending from L4 down to S1. This is similar compared to previous exam. 3. There is a small amount of gas within the subcutaneous soft tissues at the L2 level. There are sk in dilshad in place. 4. Individual levels are dictated in detail above. Electronically signed by: Rg Solis MD 10/21/2018 9:04 AM EST
[2018-10-21] MEDS: Gabapentin 300 MG Capsule PO SCH ×3 (10:11→18:00)
[2018-10-21] MEDS: Multivitamin/Minerals Therapeutic Tablet PO SCH (10:12)
[2018-10-21] MEDS: Furosemide 20 MG Tablet PO SCH ×2 (10:12→21:46)
[2018-10-21] MEDS: Senna/Docusate Sodium 8.6/50 MG Tablet PO SCH ×2 (10:13→21:46)
--- NOTE | 2018-10-21 11:32 | P.PN ---
Subjective Interval history: complaint with left hand dressing complains of pain over the right wrist. worse with range of motion associated with swelling and redness no injury Physical Exam Vital signs: Vital Signs 10/20/18 11:50 10/20/18 12:00 10/20/18 12:50 Temperature 98.7 F 98.8 F Pulse Rate 83 84 70 Respiratory Rate 18 Blood Pressure 123/64 110/56 L 111/56 L Pulse Oximetry 100 100 97 10/20/18 13:05 10/20/18 13:50 10/20/18 14:50 Temperature 98.8 F Pulse Rate 74 73 Respiratory Rate 18 16 20 Blood Pressure 110/56 L 114/58 L Pulse Oximetry 10/20/18 20:00 10/20/18 21:30 10/21/18 00:00 Temperature 98.6 F 99.1 F Pulse Rate 67 69 Respiratory Rate 18 18 18 Blood Pressure 113/67 184/88 H Pulse Oximetry 98 98 10/21/18 03:03 10/21/18 04:00 10/21/18 07:09 Temperature 98.9 F Pulse Rate 75 Respiratory Rate 17 18 18 Blood Pressure 191/70 H Pulse Oximetry 98 10/21/18 08:00 Temperature 98.7 F Pulse Rate 68 Respiratory Rate 16 Blood Pressure 111/56 L Pulse Oximetry 94 L Intake & Output 10/20/18 10/21/18 10/21/18 18:59 06:59 18:59 Intake Total 1400 / 1400 340 / 340 Output Total 2475 / 2475 1000 / 1000 Balance -1075 / -1075 -660 / -660 Weight 93.4 kg Intake: IV 200 / 200 100 / 100 Mycamine Inj 150 MG In NS Inj 100 / 100 100 ML @ 100 mls/hr IV.SIG Q24H ROBBIE Rx#:[id number] Tygacil Inj 50 MG In NS Inj 100 100 / 100 100 / 100 ML @ 200 mls/hr IV.SIG Q12H ROBBIE Rx#:[id number] Oral 1200 / 1200 240 / 240 Output: Urine 2475 / 2475 1000 / 1000 Other: # Incontinent Bowel Movements 1 Narrative: left hand dressing changed. minimal drainage right wrist: swelling and redness noted over the dorsoulnar aspect of the wrist tenderness noted over the region foraearm rotations are painful and limited wrist flexion and extension is associated with pain x-rays of the right wrist was reviewed: arthritis radioscaphoid joint with dorsal tilting of the lunate SLAC wrist stage II - Urinary Catheter Management Indwelling Urethral Catheter Cath placed during this visit: yes, but has since been removed by the nurse Reason for continuing: Decision to DC catheter Removal date: 10/05/18 Removal time: 09:30 Results - Labs CBC & Chem 7: 10/19/18 06:35 10/16/18 16:05 Laboratory Results - last 24 hr 10/20/18 10/20/18 10/20/18 11:56 16:32 21:02 POC Glucose 95 146 H 122 H - Imaging Impressions Lumbar Spine X-Ray 10/20/18 00:00 CONCLUSION: 1. A suspected new/acute, mild compression fracture of L1. No retropulsed fragments are seen. 2. Recent postop fusion from L2 through S1 without evidence of an acute complication in the operative region. Wrist X-Ray 10/20/18 00:00 CONCLUSION: 1. No acute fracture or acute appearing malalignment of the right wrist. 2. Suspected early or mild scapholunate associated collapse and dorsal intercalated segmental instability. 3. 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 Lumbar Spine CT 10/21/18 00:00 CONCLUSION: 1. There has been interval fusion from L2 down to S1. There is minimal anterolisthesis of L4 on L5. There has been previous laminectomy at L4 and L5. 2. Destructive changes in the L4-5 endplates consistent with patient's history of previous discitis. There is paraspinous soft tissue extending from L4 down to S1. This is similar compared to previous exam. 3. There is a small amount of gas within the subcutaneous soft tissues at the L2 level. There are skin dilshad in place. 4. Individual levels are dictated in detail above. - Procedures L2-S1 posterior spinal fusion Pedicle screws fixation L2, L3, L4 6.5x50mm and s1 7.5x45, Rods 5.3i576mm, Spine Wave system Use of 3D fluoroscopy wash, debridement and application of dehydrated human amnion/chorion membrane allograft left ring finger/palm Assessment and Plan - Assessment (1) Suppurative tenosynovitis of flexor tendon of left hand Code(s): M65.142 - Other infective (teno)synovitis, left hand Status: Chronic (2) Acute pain of right wrist Code(s): M25.531 - Pain in right wrist Status: Acute - Plan 58 year old male s/p closure of wound dehiscence left hand/ring finger finger with right wrist pain likely ECU tenosynovitis Plan: surrounding skin is cleaned with alcohol wipes adaptic and dressing applied keep the dressing on. right wrist: will obtain MRI scan with and without contrast right wrist
[2018-10-21] MEDS: Micafungin Inj 150 MG in Sodium Chlor 0.9% Inj 100 ML IV.SIG SCH (12:59)
[2018-10-21] MEDS: Insulin NovoLOG Aspart Correctional Sugar Inj SQ SCH ×4 (13:01→21:46)
[2018-10-21] MEDS: Ramipril 2.5 MG Capsule PO SCH (13:02)
[2018-10-21] MEDS: Insulin Detemir Inj 1,000 UNIT/10 ML Vial SQ SCH ×2 (13:03→21:46)
[2018-10-21] MEDS: Sodium Chloride 0.9% 2 ML Flush BID IV.FLUSH SCH ×2 (13:04→21:47)
[2018-10-21] MEDS: Polysaccharide Iron Complex 150 MG Capsule PO SCH ×2 (13:04→21:46)
[2018-10-21] MEDS ORDERED: Gadobutrol PF 10 MMOL/10 ML Vial (for RAD) IV.SIG ONE (15:19)
--- NOTE | 2018-10-21 15:41 | P.DCO ---
- Diagnosis (1) Abscess of hand, left Status: Acute - Physical Therapy Order: Evaluate and treat, Improve ambulation, Strength and gait training - Occupational Therapy Order: Evaluate and treat, Improve ADL, Gross motor coordination, Fine motor coordination - Home Health Nursing Order: Medication education-adverse effect, Nursing assessment with vital signs - Case Management Consult Case Management Consult-Home Health: Yes - Certification I have seen patient Tyron Sandoval on 10/21/18. My clinical findings support the need for the requested home health care services because: Deconditioned with increased weakness I certify that my clinical findings support that this patient is homebound because: Unsafe to leave home unassisted
--- NOTE | 2018-10-21 16:14 | MR ---
EXAM DATE: 10/21/2018 3:35 PM EST AGE/SEX: 58 years / Male INDICATIONS: . Tenosynovitis with acute onset of right wrist pain. CLINICAL DATA: This is the patient's initial encounter. Patient reports that signs and symptoms have been present for 3 days and indicates a pain score of 7/10. MEDICAL/SURGICAL HISTORY: . Discitis. Fusion, lumbar. Achellestendon repair. COMPARISON: Radiographs yesterday. TECHNIQUE: Multiplanar, multisequence MRI examination was performed without contrast and after intra venous administration of 9 ml Gadavist (gadobutrol) contrast as a single exam dose. FINDINGS: There is distal radioulnar joint effusion and severe synovitis. There is marrow edema of the distal u pedorthist measuring approximately 1 cm across and 2 cm proximal to distal and with associated vaguely decre ased T1 signal abnormality. I don't see a discrete fracture line. Moderate degeneration seen of the u lnar fibers of the triangular fibrocartilage without a fluid-filled gap. Joint space narrowing and cystic change seen of the lunotriquetral joint. There is widening of the sc apholunate joint, measures approximately 5.4 mm in the imaged position. Lunate is tilted dorsally. Mo derate severity joint space narrowing without erosive changes seen of the radiocarpal and triscaphe j oints. There is marrow edema of the scaphoid, mostly the distal pole. No discrete fracture line. At the level of the distal radius is an elongated fluid collection in the dorsal soft tissues that me asures approximately 5 x 14 x 32 mm in size. It is just beneath the skin and appears to be superficia l to adjacent extensor compartments 3 and 4. There does seem to be some rim enhancement of the fluid collection. Flexor and extensor tendons themselves are within normal limits. CONCLUSION: 1. Elongated subcutaneous fluid collection at the level of the distal radius with rim enhancement an d potentially an abscess in the proper clinical setting. A focally thrombosed vessel would be conceiv able. This collection does not appear to be within the tendon sheaths of adjacent extensor compartmen ts 3 or 4. No intrinsic flexor or extensor tendon abnormality demonstrated. 2. Effusion and severe synovitis of the distal radioulnar joint and also synovitis in the prestyloid region. This is nonspecific; infectious and inflammatory etiologies are in the differential. If the distal radioulnar joint is infected, there are signal changes of the distal ulna that would be concer jesse for osteomyelitis. 3. DISI and SLAC wrist. Radial sided osteoarthritis. There is marrow edema of the scaphoid, mostly t he distal half of the bone that is nonspecific but presumably reactive. 4. Mild to moderate osteoarthritis with subchondral cystic change of the lunotriquetral joint. This is underestimated radiographically. Electronically signed by: Collin Wright MD 10/21/2018 4:13 PM EST
--- NOTE | 2018-10-21 17:05 | P.PN ---
Subjective Interval history: Follow-up right wrist pain. Denies injury to right wrist. Complains of inability to raise left lower extremity after back surgery. He has usual back pain wears a brace Physical Exam Vital signs: Vital Signs 10/20/18 20:00 10/20/18 21:30 10/21/18 00:00 Temperature 98.6 F 99.1 F Pulse Rate 67 69 Respiratory Rate 18 18 18 Blood Pressure 113/67 184/88 H Pulse Oximetry 98 98 10/21/18 03:03 10/21/18 04:00 10/21/18 07:09 Temperature 98.9 F Pulse Rate 75 Respiratory Rate 17 18 18 Blood Pressure 191/70 H Pulse Oximetry 98 10/21/18 08:00 10/21/18 12:00 10/21/18 16:00 Temperature 98.7 F 98.3 F 98.1 F Pulse Rate 68 70 72 Respiratory Rate 16 16 16 Blood Pressure 111/56 L 124/60 121/56 L Pulse Oximetry 94 L 100 98 Intake & Output 10/20/18 10/21/18 10/21/18 18:59 06:59 18:59 Intake Total 1400 / 1400 340 / 340 Output Total 2475 / 2475 1000 / 1000 Balance -1075 / -1075 -660 / -660 Weight 93.4 kg Intake: IV 200 / 200 100 / 100 Mycamine Inj 150 MG In NS Inj 100 / 100 100 ML @ 100 mls/hr IV.SIG Q24H ROBBIE Rx#:[id number] Tygacil Inj 50 MG In NS Inj 100 100 / 100 100 / 100 ML @ 200 mls/hr IV.SIG Q12H ROBBIE Rx#:[id number] Oral 1200 / 1200 240 / 240 Output: Urine 2475 / 2475 1000 / 1000 Other: Date of Last Bowel Movement 10/15/18 # Incontinent Bowel Movements 1 Narrative: GENERAL: No acute distress. LUNGS: Breath sounds decreased. HEART: Regular S1, S2, without murmurs, rubs or gallops. ABDOMEN: Bowel sounds present; flat, soft, non tender. EXTREMITIES: No clubbing or cyanosis or edema. Tender right wrist SKIN: Light rash on the back mostly faded from previous. NEUROLOGIC: Nonfocal. Weakness at the left lower extremity. PSYCHIATRIC: Calm. - Urinary Catheter Management Indwelling Urethral Catheter Cath placed during this visit: yes, but has since been removed by the nurse Reason for continuing: Decision to DC catheter Removal date: 10/05/18 Removal time: 09:30 Results - Labs CBC & Chem 7: 10/19/18 06:35 10/16/18 16:05 Laboratory Results - last 24 hr 10/20/18 10/21/18 21:02 12:50 POC Glucose 122 H 181 H - Imaging Impressions Lumbar Spine X-Ray 10/20/18 00:00 CONCLUSION: 1. A suspected new/acute, mild compression fracture of L1. No retropulsed fragments are seen. 2. Recent postop fusion from L2 through S1 without evidence of an acute complication in the operative region. Wrist X-Ray 10/20/18 00:00 CONCLUSION: 1. No acute fracture or acute appearing malalignment of the right wrist. 2. Suspected early or mild scapholunate associated collapse and dorsal intercalated segmental instability. 3. 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 Lumbar Spine CT 10/21/18 00:00 CONCLUSION: 1. There has been interval fusion from L2 down to S1. There is minimal anterolisthesis of L4 on L5. There has been previous laminectomy at L4 and L5. 2. Destructive changes in the L4-5 endplates consistent with patient's history of previous discitis. There is paraspinous soft tissue extending from L4 down to S1. This is similar compared to previous exam. 3. There is a small amount of gas within the subcutaneous soft tissues at the L2 level. There are skin dilshad in place. 4. Individual levels are dictated in detail above. Wrist MRI 10/21/18 00:00 CONCLUSION: 1. Elongated subcutaneous fluid collection at the level of the distal radius with rim enhancement and potentially an abscess in the proper clinical setting. A focally thrombosed vessel would be conceivable. This collection does not appear to be within the tendon sheaths of adjacent extensor compartments 3 or 4. No intrinsic flexor or extensor tendon abnormality demonstrated. 2. Effusion and severe synovitis of the distal radioulnar joint and also synovitis in the prestyloid region. This is nonspecific; infectious and inflammatory etiologies are in the differential. If the distal radioulnar joint is infected, there are signal changes of the distal ulna that would be concerning for osteomyelitis. 3. DISI and SLAC wrist. Radial sided osteoarthritis. There is marrow edema of the scaphoid, mostly the distal half of the bone that is nonspecific but presumably reactive. 4. Mild to moderate osteoarthritis with subchondral cystic change of the lunotriquetral joint. This is underestimated radiographically. - Procedures L2-S1 posterior spinal fusion Pedicle screws fixation L2, L3, L4 6.5x50mm and s1 7.5x45, Rods 5.1p401ft, Spine Wave system Use of 3D fluoroscopy wash, debridement and application of dehydrated human amnion/chorion membrane allograft left ring finger/palm Assessment and Plan - Assessment (1) Abscess of hand, left Code(s): L02.512 - Cutaneous abscess of left hand Status: Acute (2) Hoarse voice quality Code(s): R49.0 - Dysphonia Status: Acute Onset Date: 10/04/18 - Plan 1. Catheter related infection from PICC line. 2. Thrombus of the right upper extremity related to PICC line. 3. 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 Sedimentation rate remain elevated. Continue Micafungin anticipate 8 - 12 weeks of antifungal for discitis / osteomyelitis due to Portia. 12/04/2017( 8 weeks) vs - 01/04/2018(12) weeks. Reinstate tigecycline because the sedimentation rate has not showed improvement. 4. 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 Continue Biaxin until 10/25. Followed by hand surgeon. Reportedly tendon was exposed. 5. Chronic pain on narcs. 6. Rash now appears to be due to pressure from patient laying on his back all day. 7. Leukocytosis. No clear etiology. Patient has been laying on his back and taking liquids. He potentially could be aspirating. 8. VC paresis related to intubation. S/P ENT eval, expect slow recovery 9. thyroid nodule. US in 6 mos [address] ML nod[address]. CT in 6 mos 11. Atrial fibrillation currently rate-controlled. Ct Eliquis and CCB Diltiazem 12. HTN . Continue ramipril and furosemide 13. Diabetes mellitus. A1c 7.8. Continue Levemir 35 units AM, and Levemir 25 units at bedtime, SSI with Accu-Cheks per protocol 14. Anemia of acute blood loss. Monitor H&H and transfuse for hemoglobin less than 7 15. S/p fall with L1 compression injury. Per neurosurgery conservative management with brace and physical therapy 16. Suspected early or mild scapholunate associated collapse and dorsal intercalated segmental instability. Follow-up wrist MRI DVT prophylaxis: SCDs and eliquis Discharge Planning: Rehab if arranged, [facility]
--- NOTE | 2018-10-21 17:29 | P.PNID ---
Subjective Remarks: Patient notes that he has pain in his right wrist. He states that it began 3 days ago. There is an area of redness on the lateral wrist. Notes that his legs are not functioning well. He fell while ambulating. MRI ordered. In the soft tissues at L2 low back region noted. Talking in a whisper. No fever. The rash at the back is resolved. 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 Allergies/Adverse Reactions: Allergies No Known Drug Allergies Allergy (Verified 08/06/18 15:59) none *MDRO Multi-Drug Resistant Organism Adverse Reaction (Unknown, Uncoded 06/16/17 16:34) MRSA MRSA (foot wound) - 02/12/15, 11/12/16, 03/29/17; (toe) - 03/2016 Objective Vital Signs 10/20/18 20:00 10/20/18 21:30 10/21/18 00:00 Temperature 98.6 F 99.1 F Pulse Rate 67 69 Respiratory Rate 18 18 18 Blood Pressure 113/67 184/88 H Pulse Oximetry 98 98 10/21/18 03:03 10/21/18 04:00 10/21/18 07:09 Temperature 98.9 F Pulse Rate 75 Respiratory Rate 17 18 18 Blood Pressure 191/70 H Pulse Oximetry 98 10/21/18 08:00 10/21/18 12:00 10/21/18 16:00 Temperature 98.7 F 98.3 F 98.1 F Pulse Rate 68 70 72 Respiratory Rate 16 16 16 Blood Pressure 111/56 L 124/60 121/56 L Pulse Oximetry 94 L 100 98 Intake & Output 10/20/18 10/21/18 10/21/18 18:59 06:59 18:59 Intake Total 1400 / 1400 340 / 340 Output Total 2475 / 2475 1000 / 1000 Balance -1075 / -1075 -660 / -660 Weight 93.4 kg Intake: IV 200 / 200 100 / 100 Mycamine Inj 150 MG In NS Inj 100 / 100 100 ML @ 100 mls/hr IV.SIG Q24H [facility] Rx#:[id number] Tygacil Inj 50 MG In NS Inj 100 100 / 100 100 / 100 ML @ 200 mls/hr IV.SIG Q12H [facility] Rx#:[id number] Oral 1200 / 1200 240 / 240 Output: Urine 2475 / 2475 1000 / 1000 Other: Date of Last Bowel Movement 10/15/18 # Incontinent Bowel Movements 1 10/04/18 16:56 Tissue - Other Fungal Smear - Final No fungal elements seen 10/04/18 16:56 Tissue - Other Fungal Culture - Preliminary No growth in 2 weeks 10/04/18 16:56 Tissue - Other Acid Fast Bacilli Smear - Final No acid fast bacilli seen 10/04/18 16:56 Tissue - Other Mycobacterial Culture - Preliminary No growth in 2 weeks 10/04/18 16:05 Wound - Other Fungal Smear - Final No fungal elements seen 10/04/18 16:05 Wound - Other Fungal Culture - Preliminary No growth in 2 weeks 10/04/18 16:05 Wound - Other Acid Fast Bacilli Smear - Final No acid fast bacilli seen 10/04/18 16:05 Wound - Other Mycobacterial Culture - Preliminary No growth in 2 weeks 10/04/18 16:05 Wound - Other Fungal Smear - Final No fungal elements seen 10/04/18 16:05 Wound - Other Fungal Culture - Preliminary No growth in 2 weeks 10/04/18 16:05 Wound - Other Acid Fast Bacilli Smear - Final No acid fast bacilli seen 10/04/18 16:05 Wound - Other Mycobacterial Culture - Preliminary No growth in 2 weeks Lab - Chemistry Results 10/19/18 10/20/18 10/20/18 21:04 07:55 11:56 POC Glucose 265 H 89 95 10/20/18 10/20/18 10/21/18 16:32 21:02 12:50 POC Glucose 146 H 122 H 181 H Imaging: ITS Impressions Venous Doppler Study 09/23/18 13:35 CONCLUSION: 1. Occlusive thrombus in the proximal and mid cephalic vein. 2. Deep venous system is otherwise patent. 3. Heterogeneous hypoechoic collection along the right shoulder which could represent a hematoma and/or seroma. Lumbar Spine MRI 09/25/18 00:00 CONCLUSION: 1. Findings are diagnostic of discitis osteomyelitis at L4-L5 with epidural abscess posterior to the L4 and L5 vertebral body. This epidural material along with facet hypertrophy moderately narrows the spinal canal at this level. There additionally is some perivertebral enhancing material likely representing small perivertebral abscess. It is challenging to compare to the prior study since it was significantly degraded by motion artifact. However, the findings are similar and do not appear improved. 2. There is mild edema within the L2 disc space and minimal endplate irregularity and enhancement of L2. These changes could be secondary to degenerative disc disease but cannot exclude early discitis. Suggest attention to this area at follow-up imaging. Chest CT 10/15/18 00:00 CONCLUSION: 1. 7 mm nodular opacity in the right middle lobe: Surveillance recommended with follow-up scan in 6 months. 2. Mild interstitial prominence which may be inflammatory. 3. No evidence of consolidating airspace disease or pleural effusions. Soft Tissue Neck CT 10/15/18 00:00 CONCLUSION: 1. Left supraclavicular adenopathy. 2. Multiple small thyroid nodules bilaterally. Chest X-Ray 10/18/18 16:16 CONCLUSION: No acute cardiopulmonary disease. There is no definite evidence of pneumonia. Lumbar Spine X-Ray 10/20/18 00:00 CONCLUSION: 1. A suspected new/acute, mild compression fracture of L1. No retropulsed fragments are seen. 2. Recent postop fusion from L2 through S1 without evidence of an acute complication in the operative region. Wrist X-Ray 10/20/18 00:00 CONCLUSION: 1. No acute fracture or acute appearing malalignment of the right wrist. 2. Suspected early or mild scapholunate associated collapse and dorsal intercalated segmental instability. 3. 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 Lumbar Spine CT 10/21/18 00:00 CONCLUSION: 1. There has been interval fusion from L2 down to S1. There is minimal anterolisthesis of L4 on L5. There has been previous laminectomy at L4 and L5. 2. Destructive changes in the L4-5 endplates consistent with patient's history of previous discitis. There is paraspinous soft tissue extending from L4 down to S1. This is similar compared to previous exam. 3. There is a small amount of gas within the subcutaneous soft tissues at the L2 level. There are skin dilshad in place. 4. Individual levels are dictated in detail above. Wrist MRI 10/21/18 00:00 CONCLUSION: 1. Elongated subcutaneous fluid collection at the level of the distal radius with rim enhancement and potentially an abscess in the proper clinical setting. A focally thrombosed vessel would be conceivable. This collection does not appear to be within the tendon sheaths of adjacent extensor compartments 3 or 4. No intrinsic flexor or extensor tendon abnormality demonstrated. 2. Effusion and severe synovitis of the distal radioulnar joint and also synovitis in the prestyloid region. This is nonspecific; infectious and inflammatory etiologies are in the differential. If the distal radioulnar joint is infected, there are signal changes of the distal ulna that would be concerning for osteomyelitis. 3. DISI and SLAC wrist. Radial sided osteoarthritis. There is marrow edema of the scaphoid, mostly the distal half of the bone that is nonspecific but presumably reactive. 4. Mild to moderate osteoarthritis with subchondral cystic change of the lunotriquetral joint. This is underestimated radiographically. Physical Exam: PHYSICAL EXAMINATION: GENERAL: No acute distress. HEENT: Head atraumatic. Extraocular movements grossly intact. Pupils reactive to light, without icterus. Oropharynx: Moist mucosa. No visible lesions. No thrush. NECK: Supple without adenopathy or swelling. LUNGS: Breath sounds decreased. Lungs are clear. HEART: Regular S1, S2, without murmurs, rubs or gallops. ABDOMEN: Bowel sounds present; flat, soft, non tender. EXTREMITIES: No clubbing or cyanosis or edema. Redness at the distal right wrist. Nodular area of swelling without erythema at the dorsal aspect of the right wrist. SKIN: No rash NEUROLOGIC: Nonfocal. Weakness at the left lower extremity. PSYCHIATRIC: Calm. Assessment and Plan - Plan ASSESSMENT AND PLAN: 1. Catheter related infection from PICC line. 2. Thrombus of the right upper extremity related to PICC line. 3. 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 Sedimentation rate remain elevated. 4. 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 Patient now has new tender erythematous area of swelling at the right wrist. He is currently on antibiotic treatment for Mycobacterium abscesses. Followed by hand surgeon. Possible new abscess. 5. Chronic pain. 6. Rash resolved. 7. Leukocytosis. No clear etiology. RECOMMENDATIONS: 1. Continue Micafungin for discitis and osteomyelitis. Anticipate 8 - 12 weeks of antifungal for discitis / osteomyelitis due to Portia. 12/04/2018( 8 weeks) vs - 01/04/2019(12) weeks. 2. Continue Biaxin until 10/25/2018. 3. Continue Tigecycline because the sedimentation rate has not showed improvement. The Tigecycline should cover gram-positive organisms in addition to Mycobacterium. The prior rash could have been secondary to cefoxitin. I plan to repeat the sedimentation rate in 2 days. 4. Monitor white blood cell count. 5. May need aspiration of the right wrist.
[2018-10-21] MEDS: dilTIAZem CD 120 MG Capsule PO SCH (17:49)
[2018-10-22] MEDS: Baclofen 10 MG Tablet PO SCH ×3 (06:20→22:13)
[2018-10-22 07:22] LABS: Baso # (Auto) 0.1 th/mm3 (0.0-0.2); Baso % (Auto) 0.6 % (0.0-2.0); Eos # (Auto) 0.2 th/mm3 (0.0-0.4); Eos % (Auto) 1.4 % (0.0-4.0); Hematocrit 27.5 % (39.0-51.0); Lymph # (Auto) 1.9 th/mm3 (1.0-4.8); Lymph % (Auto) 11.6 % (9.0-44.0); Mean Corpuscular HGB Conc 32.6 % (32.0-36.0); Mean Corpuscular Hemoglobin 25.1 pg (27.0-34.0); Mean Platelet Volume 6.4 fL (7.0-11.0); Mono # (Auto) 1.3 th/mm3 (0.0-0.9); Mono % (Auto) 7.8 % (0.0-8.0); Neut # (Auto) 12.7 th/mm3 (1.8-7.7); Neut % (Auto) 78.6 % (16.0-70.0); Platelet Count 619 th/mm3 (150-450); Red Blood Count 3.57 mil/mm3 (4.50-5.90); White Blood Count 16.1 th/mm3 (4.0-11.0)
[2018-10-22 07:40] LABS: Anion Gap 9 meq/L (5-15); Blood Urea Nitrogen 29 mg/dL (7-18); Calcium 9.1 mg/dL (8.5-10.1); Carbon Dioxide 24.4 meq/L (21.0-32.0); Chloride 104 meq/L (98-107); Glomerular Filtration Rate Greater Than 89 mL/min (>89); Glucose,Random 50 mg/dL (74-106); Magnesium 2.1 mg/dL (1.5-2.5); Sodium 137 meq/L (136-145)
[2018-10-22] MEDS: Senna/Docusate Sodium 8.6/50 MG Tablet PO SCH ×2 (09:28→22:13)
[2018-10-22] MEDS: Ramipril 2.5 MG Capsule PO SCH (09:28)
[2018-10-22] MEDS: Gabapentin 300 MG Capsule PO SCH ×3 (09:28→17:58)
[2018-10-22] MEDS: Multivitamin/Minerals Therapeutic Tablet PO SCH (09:28)
[2018-10-22] MEDS: Polysaccharide Iron Complex 150 MG Capsule PO SCH ×2 (09:28→22:13)
[2018-10-22] MEDS: Furosemide 20 MG Tablet PO SCH ×2 (09:28→22:13)
[2018-10-22] MEDS: Insulin Detemir Inj 1,000 UNIT/10 ML Vial SQ SCH ×2 (09:29→22:14)
[2018-10-22] MEDS: Insulin NovoLOG Aspart Correctional Sugar Inj SQ SCH ×4 (09:33→22:15)
[2018-10-22] MEDS: Sodium Chloride 0.9% 2 ML Flush BID IV.FLUSH SCH ×2 (09:33→22:15)
[2018-10-22] MEDS: Micafungin Inj 150 MG in Sodium Chlor 0.9% Inj 100 ML IV.SIG SCH (10:36)
--- NOTE | 2018-10-22 11:42 | P.NPEVAL ---
Patient History - Record/History Review Reason for Referral: The patient is a 58-year-old male who has had multiple hospitalizations for infection, who was admitted to [facility] on 09/22/2018. Past medical history includes hypertension, hyperlipidemia, GERD, A. fib, DM and L4- 5 discitis. He was most recently discharged on 09/17/18 with a right upper arm PICC for outpatient IV antibiotic infusion. He returns to the ED today with a complaint of the PICC line not working and swelling and pain in that arm. He denies any fever or chills. No chest pain or shortness of breath. No nausea vomiting or diarrhea. He is a somewhat poor historian and is primarily focused on discussing his foot and back pain which are chronic issues.status post traumatic injury sustained on [date] who is referred for baseline neurobehavioral status examination to assess cognitive, behavioral and emotional aspects of the injury and to provide treatment recommendations. He has been seen by psychiatry as well during his hospital course who opined a delusional disorder given his grandiosity, and possible underlying schizophrenic disorder. He has been somewhat noncompliant and argumentative with staff since his admission. 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) MDRO (multiple drug resistant organisms) resistance Onset Date: ~10/04/18 Amputated toe GERD (gastroesophageal reflux disease) Hyperlipidemia Afib Back pain Diabetes Hypertension Osteomyelitis - Surgical History Surgical History: Surgical History (Last Reviewed 10/17/18 @ 08:36 by Amara Spears) H/O foot surgery - Family History Family History: Family History (Last Reviewed 10/17/18 @ 08:36 by Amara Spears) Other Coronary artery disease - Tobacco History Second Hand Smoke Exposure: No Smoking Status: Never smoker - Alcohol History How Often Do You Have a Drink Containing Alcohol: Never - Substance Use History Substance History: No History of Abuse - Travel History Recent Travel in the [place] Within the Last 8 Weeks: No Recent Travel Out of the Country Within the Last 8 Weeks: No - Immunization History Tetanus Immunization: <5 Years Hx Influenza Vaccine This Season: No Medications Active Medications Acetaminophen (Tylenol) 650 mg PO Q4H PRN PRN Reason: FEVER > 100.4 F Al Hydroxide/Mg Hydroxide (Milk Of Magnesia Liq) 30 ml PO Q12H PRN PRN Reason: Mild Constipation Last Admin: 10/18/18 22:05 Dose: 30 ml Apixaban (Eliquis) 5 mg PO BID [facility] Last Admin: 10/01/18 21:53 Dose: Not Given Baclofen (Lioresal) 10 mg PO Q8HR [facility] Last Admin: 10/22/18 06:20 Dose: 10 mg Bisacodyl (Dulcolax Supp) 10 mg RECTAL DAILY PRN PRN Reason: SEVERE CONSITIPATION Chlorhexidine Gluconate (Chlorhexidine 2% Cloth) 3 pack 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 [facility] Clarithromycin (Biaxin) 500 mg PO Q12H [facility] Last Admin: 10/22/18 06:20 Dose: 500 mg Clonidine HCl (Catapres) 0.1 mg PO Q8HR [facility] Last Admin: 10/22/18 06:20 Dose: 0.1 mg Cyclobenzaprine HCl (Flexeril) 10 mg PO Q8H PRN PRN Reason: MUSCLE SPASM Last Admin: 10/21/18 02:33 Dose: 10 mg Dextrose (D50w Vial) 50 ml IV.PUSH UNSCH PRN PRN Reason: PER HYPOGLYCEMIA PROTOCOL Diltiazem HCl (Cardizem Cd 24hr) 120 mg PO Q24H [facility] Last Admin: 10/21/18 17:49 Dose: Not Given Furosemide (Lasix) 20 mg PO BID [facility] Last Admin: 10/22/18 09:28 Dose: 20 mg Gabapentin (Neurontin) 300 mg PO TID [facility] Last Admin: 10/22/18 09:28 Dose: 300 mg Glucagon (Glucagon Inj) 1 mg OTHER PRN PRN PRN Reason: for Hypoglycemia Protocol Hydrocortisone Acetate (Hydrocortisone 1% Cream) 1 applicatio TOPICAL TID [facility] Last Admin: 10/22/18 09:33 Dose: 1 applicatio Hydromorphone HCl (Dilaudid) 2 mg PO Q4H PRN PRN Reason: PAIN SCALE 6 TO 10 Last Admin: 10/13/18 21:55 Dose: 2 mg Micafungin Sodium 150 mg/ (Sodium Chloride) 100 mls @ 100 mls/hr IV.SIG Q24H [facility] Last Admin: 10/22/18 10:36 Dose: 100 mls/hr Tigecycline 50 mg/ Sodium (Chloride) 100 mls @ 200 mls/hr IV.SIG Q12H [facility] Last Infusion: 10/22/18 07:00 Dose: Infused Insulin Aspart (Novolog Insulin Correctional Sugar Inj) 0 unit SQ [facility]; Protocol Last Admin: 10/22/18 09:33 Dose: Not Given Insulin Detemir (Levemir Inj) 25 unit SQ HS [facility] Last Admin: 10/21/18 21:46 Dose: 25 unit Insulin Detemir (Levemir Inj) 40 unit SQ DAILY [facility] Last Admin: 10/22/18 09:29 Dose: 40 unit Lactulose (Lactulose Liq) 30 ml PO DAILY PRN PRN Reason: SEVERE CONSITIPATION Multivitamins/Minerals (Theragran-M) 1 tab PO DAILY [facility] Last Admin: 10/22/18 09:28 Dose: 1 tab Naloxone HCl (Narcan Inj) 0.4 mg IV.PUSH PRN PRN PRN Reason: SEE LABEL COMMENTS Naloxone HCl (Narcan Inj) 0.4 mg IV.PUSH UNSCH PRN PRN Reason: SEE LABEL COMMENTS Ondansetron HCl (Zofran Inj) 4 mg IV.PUSH Q6H PRN PRN Reason: NAUSEA OR VOMITING Last Admin: 10/01/18 02:56 Dose: 4 mg Oxycodone HCl (Roxicodone) 30 mg PO Q4H PRN PRN Reason: PAIN 1-10 Last Admin: 10/22/18 10:35 Dose: 30 mg Pantoprazole Sodium (Protonix) 40 mg PO DAILY [facility] Last Admin: 10/22/18 09:34 Dose: 40 mg Polysaccharide Iron Complex (Nu-Iron) 150 mg PO BID [facility] Last Admin: 10/22/18 09:28 Dose: 150 mg Ramipril (Altace) 2.5 mg PO DAILY [facility] Last Admin: 10/22/18 09:28 Dose: 2.5 mg Senna/Docusate Sodium (Aliyah-Colace) 1 tab PO BID [facility] Last Admin: 10/22/18 09:28 Dose: 1 tab Sennosides (Senokot) 17.2 mg PO Q12H PRN PRN Reason: Moderate Constipation Sodium Chloride (Ns Flush) 2 ml IV.FLUSH BID [facility] Last Admin: 10/22/18 09:33 Dose: 2 ml Sodium Chloride (Ns Flush) 2 ml IV.FLUSH PRN PRN PRN Reason: FLUSH AFTER USING IV ACCESS Last Admin: 10/07/18 11:33 Dose: 2 ml Mental Status Assessment - Mental Status Orientation: oriented to: Self, Place, Time, Situation Mental Status: WFL: Language/interactions, Attention, Learning/memory, Variable : Thought processing, Problem-solving Absent: Hallucinations, Delusions Adjustment/Coping Assessment - Adjustment/Coping Adjustment/Coping: Mild: Awareness, Insight - Observation In terms of emotional functioning, the patient demonstrated obvious challenges. This patient demonstrated no signs of significant agitation, impulsivity or disinhibition, although there was some evidence of an underlying formal thought disorder or psychosis. It was notable that his hospital room was filled with irrelevant items including pieces of food, blueprints, a stick of butter, two cell phones (one appearing nonfunctional) and copious hand written notes. There was no evidence of depression or anxiety. Thought content was free from suicidal or homicidal (some evidence of paranoid ideation), and thought processes were tangential. The patients mood was expansive and at times angry , and his affect was intense. The patient appears to possess some insight and awareness into their situation although within the limits of this brief evaluation, questionable yet chronic problems with judgment. Behavior - Behavior Agitation: Mild Treatment Engagement: Average - Observation Behaviorally, the patient demonstrated no signs of agitation, impulsivity or disinhibition. There was some evidence of a formal thought disorder or underlying psychosis. - Goals LTG Status: Deferred STG Status: Deferred - Team Members Team Members: Neuropsychologist Diagnosis/Discharge Plan - Diagnosis (1) Hoarding disorder with poor insight Status: Acute Impression: This is a 58 year old man with presumably long psychiatric history (which he denies, which leads one to believe that he never received treatment) with his current clinical presentation notable for hoarding and agitation related to his care. He lacks insight or awareness into his situation, and in all likelihood as psychiatry previously pointed out, he likely has an underlying schizophrenic disorder. Disinhibition Score: 21.00 Aggression Score: 21.00 Lability Score: 28.00 Agitated Behavior Total Score: 22 Maximizing Acute Care Outcome: It is recommended that the patient be monitored for emergent behavioral impulsivity as the medical condition evolves. This patients neuropathological challenges may limit rehabilitation potential going forward, and these challenges will require specialized therapeutic skills to maximize outcome. At this point in the recovery process, the patient has marginal cognitive capacity as the patient is able to understand some components of his situation and its likely consequences, and he is able to manipulate some information rationally. Cognitive capacity will be assessed throughout the recovery process. - Discharge Planning Anticipated Problems: Ongoing areas of concern will include behavioral impulsivity, lack of insight and judgment, which may or may not improve with time and treatment. This patient may respond well to a second generation antipsychotic, although he will likely refuse such medication. In general, he does seem to be at baseline from a neurobehavioral standpoint, and as such would be considered as safe a discharge as he could ever be considered in spite of his neurobehavioral eccentricities. Treatment Plan: This clinician will continue to follow with you throughout the course of this patients acute care treatment, and I will be available to meet with the patient s family/support system to facilitate their understanding and the ongoing care of their family member. The goals of neuropsychological intervention shall be both educational and supportive to the family/support system as is deemed clinically appropriate. Thank you for the opportunity to assist in this patients care. Bay Guardado, Ph.D., ABPP Board Certified in Clinical Neuropsychology [place] [employer] [place] Licensed Psychologist #[id number]
--- NOTE | 2018-10-22 13:17 | P.PNID ---
Subjective Remarks: Patient notes that he has pain in his right wrist. severe. There is an area of redness on the lateral wrist. Notes that his legs are not functioning well. Small amount of gas in the soft tissues at L2 low back region noted. Talking in a whisper. No fever. denies chills. The rash at the back is resolved. Antibiotics: Biaxin Micafungin Tigecycline Lines: Line sites with no evidence of infection. 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 Allergies/Adverse Reactions: Allergies No Known Drug Allergies Allergy (Verified 08/06/18 15:59) none *MDRO Multi-Drug Resistant Organism Adverse Reaction (Unknown, Uncoded 06/16/17 16:34) MRSA MRSA (foot wound) - 02/12/15, 11/12/16, 03/29/17; (toe) - 03/2016 Objective Vital Signs 10/21/18 16:00 10/21/18 20:00 10/21/18 22:59 Temperature 98.1 F 98.7 F Pulse Rate 72 75 Respiratory Rate 16 18 18 Blood Pressure 121/56 L 114/58 L Pulse Oximetry 98 100 10/22/18 08:00 10/22/18 12:00 Temperature 97.4 F L 98.4 F Pulse Rate 83 81 Respiratory Rate 16 16 Blood Pressure 133/66 115/56 L Pulse Oximetry 99 96 Intake & Output 10/21/18 10/22/18 10/22/18 18:59 06:59 18:59 Intake Total 820 / 820 100 / 100 100 / 100 Output Total 575 / 575 400 / 400 Balance 245 / 245 -300 / -300 100 / 100 Weight 93.5 kg Intake: IV 100 / 100 100 / 100 100 / 100 Mycamine Inj 150 MG In NS Inj 100 / 100 100 ML @ 100 mls/hr IV.SIG Q24H ROBBIE Rx#:[id number] Tygacil Inj 50 MG In NS Inj 100 100 / 100 100 / 100 ML @ 200 mls/hr IV.SIG Q12H ROBBIE Rx#:[id number] Oral 720 / 720 Output: Urine 575 / 575 400 / 400 Other: Date of Last Bowel Movement 10/15/18 10/15/18 Lab - Hematology Results 10/22/18 06:04 WBC 16.1 H RBC 3.57 L Hgb 9.0 L Hct 27.5 L MCV 77.0 L MCH 25.1 L MCHC 32.6 RDW 17.0 Plt Count 619 H MPV 6.4 L Neut % (Auto) 78.6 H Lymph % (Auto) 11.6 [place] % (Auto) 7.8 Eos % (Auto) 1.4 Baso % (Auto) 0.6 Neut # (Auto) 12.7 H Lymph # (Auto) 1.9 [place] # (Auto) 1.3 H Eos # (Auto) 0.2 Baso # (Auto) 0.1 WBC Differential . Differential Comment Auto diff final Lab - Chemistry Results 10/20/18 10/20/18 10/21/18 16:32 21:02 12:50 Sodium Potassium Chloride Carbon Dioxide Anion Gap BUN Creatinine Estimated GFR POC Glucose 146 H 122 H 181 H Random Glucose Calcium Magnesium 10/21/18 10/21/18 10/22/18 17:52 19:56 06:04 Sodium 137 Potassium 4.0 Chloride 104 Carbon Dioxide 24.4 Anion Gap 9 BUN 29 H Creatinine 0.65 Estimated GFR Greater than 89 POC Glucose 335 H 248 H Random Glucose 50 L Calcium 9.1 Magnesium 2.1 10/22/18 10/22/18 08:27 11:36 Sodium Potassium Chloride Carbon Dioxide Anion Gap BUN Creatinine Estimated GFR POC Glucose 96 206 H Random Glucose Calcium Magnesium Imaging: ITS Impressions Venous Doppler Study 09/23/18 13:35 CONCLUSION: 1. Occlusive thrombus in the proximal and mid cephalic vein. 2. Deep venous system is otherwise patent. 3. Heterogeneous hypoechoic collection along the right shoulder which could represent a hematoma and/or seroma. Lumbar Spine MRI 09/25/18 00:00 CONCLUSION: 1. Findings are diagnostic of discitis osteomyelitis at L4-L5 with epidural abscess posterior to the L4 and L5 vertebral body. This epidural material along with facet hypertrophy moderately narrows the spinal canal at this level. There additionally is some perivertebral enhancing material likely representing small perivertebral abscess. It is challenging to compare to the prior study since it was significantly degraded by motion artifact. However, the findings are similar and do not appear improved. 2. There is mild edema within the L2 disc space and minimal endplate irregularity and enhancement of L2. These changes could be secondary to degenerative disc disease but cannot exclude early discitis. Suggest attention to this area at follow-up imaging. Chest CT 10/15/18 00:00 CONCLUSION: 1. 7 mm nodular opacity in the right middle lobe: Surveillance recommended with follow-up scan in 6 months. 2. Mild interstitial prominence which may be inflammatory. 3. No evidence of consolidating airspace disease or pleural effusions. Soft Tissue Neck CT 10/15/18 00:00 CONCLUSION: 1. Left supraclavicular adenopathy. 2. Multiple small thyroid nodules bilaterally. Chest X-Ray 10/18/18 16:16 CONCLUSION: No acute cardiopulmonary disease. There is no definite evidence of pneumonia. Lumbar Spine X-Ray 10/20/18 00:00 CONCLUSION: 1. A suspected new/acute, mild compression fracture of L1. No retropulsed fragments are seen. 2. Recent postop fusion from L2 through S1 without evidence of an acute complication in the operative region. Wrist X-Ray 10/20/18 00:00 CONCLUSION: 1. No acute fracture or acute appearing malalignment of the right wrist. 2. Suspected early or mild scapholunate associated collapse and dorsal intercalated segmental instability. 3. 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 Lumbar Spine CT 10/21/18 00:00 CONCLUSION: 1. There has been interval fusion from L2 down to S1. There is minimal anterolisthesis of L4 on L5. There has been previous laminectomy at L4 and L5. 2. Destructive changes in the L4-5 endplates consistent with patient's history of previous discitis. There is paraspinous soft tissue extending from L4 down to S1. This is similar compared to previous exam. 3. There is a small amount of gas within the subcutaneous soft tissues at the L2 level. There are skin dilshad in place. 4. Individual levels are dictated in detail above. Wrist MRI 10/21/18 00:00 CONCLUSION: 1. Elongated subcutaneous fluid collection at the level of the distal radius with rim enhancement and potentially an abscess in the proper clinical setting. A focally thrombosed vessel would be conceivable. This collection does not appear to be within the tendon sheaths of adjacent extensor compartments 3 or 4. No intrinsic flexor or extensor tendon abnormality demonstrated. 2. Effusion and severe synovitis of the distal radioulnar joint and also synovitis in the prestyloid region. This is nonspecific; infectious and inflammatory etiologies are in the differential. If the distal radioulnar joint is infected, there are signal changes of the distal ulna that would be concerning for osteomyelitis. 3. DISI and SLAC wrist. Radial sided osteoarthritis. There is marrow edema of the scaphoid, mostly the distal half of the bone that is nonspecific but presumably reactive. 4. Mild to moderate osteoarthritis with subchondral cystic change of the lunotriquetral joint. This is underestimated radiographically. Physical Exam: PHYSICAL EXAMINATION: GENERAL: No acute distress. HEENT: Head atraumatic. Extraocular movements grossly intact. Pupils reactive to light, without icterus. Oropharynx: Moist mucosa. No visible lesions. No thrush. NECK: Supple without adenopathy or swelling. LUNGS: Breath sounds decreased. Lungs are clear. HEART: Regular S1, S2, without murmurs, rubs or gallops. ABDOMEN: Bowel sounds present; flat, soft, non tender. EXTREMITIES: No clubbing or cyanosis or edema. Redness at the ulnar aspect of the distal right wrist. Nodular area of swelling without erythema at the dorsal aspect of the right wrist. SKIN: No rash NEUROLOGIC: Nonfocal. Weakness at the left lower extremity. PSYCHIATRIC: Calm. Assessment and Plan - Plan ASSESSMENT AND PLAN: 1. Catheter related infection from PICC line. 2. Thrombus of the right upper extremity related to PICC line. 3. 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 Sedimentation rate remain elevated. 4. 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 Patient now has new tender erythematous area of swelling at the right wrist onset 4 days ago. He is currently on antibiotic treatment for Mycobacterium abscesses. Followed by hand surgeon. Possible new abscess. ? inflammatory. Not clear about his response to treatment for the mycobacteria. 07/21/18 - date of mycobacterium abscessus culture form left hand. 13 weeks ago. 6 months of treatment recommended for osteomyelitis therefore will plan on treatment for that duration. That would push treatment up to 01/21/2019. 5. Chronic pain. 6. Rash resolved. 7. Leukocytosis. RECOMMENDATIONS: 1. Continue Micafungin for discitis and osteomyelitis. Anticipate 8 - 12 weeks of antifungal for discitis / osteomyelitis due to Portia. 12/04/2018( 8 weeks) vs - 01/04/2019(12) weeks. 2. Stop Biaxin. 3. Start Azithromycin 500mg PO daily. 4. Continue Tigecycline because the sedimentation rate has not showed improvement. The Tigecycline should cover gram-positive organisms in addition to Mycobacterium abscessus. The prior rash could have been secondary to cefoxitin. Repeat sed rate tomorrow. 5. Monitor white blood cell count. 6. May need aspiration of the right wrist. Hand surgeon following.
--- NOTE | 2018-10-22 14:01 | P.PN ---
Subjective Interval history: Follow-up right wrist painCt to have pain he is doing hand exercises as much as he can Dw ID needs aspiration by HS. Physical Exam Vital signs: Vital Signs 10/21/18 16:00 10/21/18 20:00 10/21/18 22:59 Temperature 98.1 F 98.7 F Pulse Rate 72 75 Respiratory Rate 16 18 18 Blood Pressure 121/56 L 114/58 L Pulse Oximetry 98 100 10/22/18 08:00 10/22/18 12:00 Temperature 97.4 F L 98.4 F Pulse Rate 83 81 Respiratory Rate 16 16 Blood Pressure 133/66 115/56 L Pulse Oximetry 99 96 Intake & Output 10/21/18 10/22/18 10/22/18 18:59 06:59 18:59 Intake Total 820 / 820 100 / 100 200 / 200 Output Total 575 / 575 400 / 400 Balance 245 / 245 -300 / -300 200 / 200 Weight 93.5 kg Intake: IV 100 / 100 100 / 100 200 / 200 Mycamine Inj 150 MG In NS Inj 100 / 100 100 / 100 100 ML @ 100 mls/hr IV.SIG Q24H ROBBIE Rx#:[id number] Tygacil Inj 50 MG In NS Inj 100 100 / 100 100 / 100 ML @ 200 mls/hr IV.SIG Q12H ROBBIE Rx#:[id number] Oral 720 / 720 Output: Urine 575 / 575 400 / 400 Other: Date of Last Bowel Movement 10/15/18 10/15/18 Narrative: GENERAL: No acute distress. LUNGS: Breath sounds decreased. HEART: Regular S1, S2, without murmurs, rubs or gallops. ABDOMEN: Bowel sounds present; flat, soft, non tender. EXTREMITIES: No clubbing or cyanosis or edema. Tender right wrist with decreased range of motion over dorsal surface SKIN: Light rash on the back mostly faded from previous. NEUROLOGIC: Nonfocal. Weakness at the left lower extremity. PSYCHIATRIC: Calm. - Urinary Catheter Management Indwelling Urethral Catheter Cath placed during this visit: yes, but has since been removed by the nurse Reason for continuing: Decision to DC catheter Removal date: 10/05/18 Removal time: 09:30 Results - Labs CBC & Chem 7: 10/22/18 06:04 10/22/18 06:04 Laboratory Results - last 24 hr 10/21/18 10/21/18 10/22/18 17:52 19:56 06:04 WBC 16.1 H RBC 3.57 L Hgb 9.0 L Hct 27.5 L MCV 77.0 L MCH 25.1 L MCHC 32.6 RDW 17.0 Plt Count 619 H MPV 6.4 L Neut % (Auto) 78.6 H Lymph % (Auto) 11.6 [place] % (Auto) 7.8 Eos % (Auto) 1.4 Baso % (Auto) 0.6 Neut # (Auto) 12.7 H Lymph # (Auto) 1.9 [place] # (Auto) 1.3 H Eos # (Auto) 0.2 Baso # (Auto) 0.1 WBC Differential . Differential Comment Auto diff final Sodium Potassium Chloride Carbon Dioxide Anion Gap BUN Creatinine Estimated GFR POC Glucose 335 H 248 H Random Glucose Calcium Magnesium 10/22/18 10/22/18 10/22/18 06:04 08:27 11:36 WBC RBC Hgb Hct MCV MCH MCHC RDW Plt Count MPV Neut % (Auto) Lymph % (Auto) [place] % (Auto) Eos % (Auto) Baso % (Auto) Neut # (Auto) Lymph # (Auto) [place] # (Auto) Eos # (Auto) Baso # (Auto) WBC Differential Differential Comment Sodium 137 Potassium 4.0 Chloride 104 Carbon Dioxide 24.4 Anion Gap 9 BUN 29 H Creatinine 0.65 Estimated GFR Greater than 89 POC Glucose 96 206 H Random Glucose 50 L Calcium 9.1 Magnesium 2.1 - Imaging Impressions Wrist MRI 10/21/18 00:00 CONCLUSION: 1. Elongated subcutaneous fluid collection at the level of the distal radius with rim enhancement and potentially an abscess in the proper clinical setting. A focally thrombosed vessel would be conceivable. This collection does not appear to be within the tendon sheaths of adjacent extensor compartments 3 or 4. No intrinsic flexor or extensor tendon abnormality demonstrated. 2. Effusion and severe synovitis of the distal radioulnar joint and also synovitis in the prestyloid region. This is nonspecific; infectious and inflammatory etiologies are in the differential. If the distal radioulnar joint is infected, there are signal changes of the distal ulna that would be concerning for osteomyelitis. 3. DISI and SLAC wrist. Radial sided osteoarthritis. There is marrow edema of the scaphoid, mostly the distal half of the bone that is nonspecific but presumably reactive. 4. Mild to moderate osteoarthritis with subchondral cystic change of the lunotriquetral joint. This is underestimated radiographically. - Procedures L2-S1 posterior spinal fusion Pedicle screws fixation L2, L3, L4 6.5x50mm and s1 7.5x45, Rods [id number], Spine Wave system Use of 3D fluoroscopy wash, debridement and application of dehydrated human amnion/chorion membrane allograft left ring finger/palm Assessment and Plan - Assessment (1) Abscess of hand, left Code(s): L02.512 - Cutaneous abscess of left hand Status: Acute (2) Hoarse voice quality Code(s): R49.0 - Dysphonia Status: Acute - Plan 1. Catheter related infection from PICC line. 2. Thrombus of the right upper extremity related to PICC line. 3. 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 Sedimentation rate remain elevated. Continue Micafungin anticipate 8 - 12 weeks of antifungal for discitis / osteomyelitis due to Portia. 12/04/2017( 8 weeks) vs - 01/04/2018(12) weeks. Reinstate tigecycline because the sedimentation rate has not showed improvement. 4. 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 Switch to azithromycin by ID Followed by hand surgeon. Reportedly tendon was exposed. 5. Chronic pain on narcs. 6. Rash now appears to be due to pressure from patient laying on his back all day. 7. Leukocytosis. No clear etiology. Patient has been laying on his back and taking liquids. He potentially could be aspirating. 8. VC paresis related to intubation. S/P ENT eval, expect slow recovery 9. thyroid nodule. US in 6 mos 10[address] ML nodule. CT in 6 mos 11. Atrial fibrillation currently rate-controlled. Ct Eliquis and CCB Diltiazem 12. HTN . Continue ramipril and furosemide 13. Diabetes mellitus. A1c 7.8. Continue Levemir 35 units AM, and Levemir 25 units at bedtime, SSI with Accu-Cheks per protocol 14. Anemia of acute blood loss. Monitor H&H and transfuse for hemoglobin less than 7 15. S/p fall with L1 compression injury. Per neurosurgery conservative management with brace and physical therapy 16. Suspected early or mild scapholunate associated collapse and dorsal intercalated segmental instability. Follow-up wrist MRI with possible infection versus inflammation would need aspiration by hand surgery. Check inflammatory markers OT consult DVT prophylaxis: SCDs and qing
[2018-10-22 15:05] LABS: C-Reactive Protein 5.75 mg/dL (0.00-0.30)
[2018-10-22] MEDS: Azithromycin 250 MG Tablet PO SCH (17:57)
[2018-10-22] MEDS: dilTIAZem CD 120 MG Capsule PO SCH (17:59)
[2018-10-23] MEDS: Baclofen 10 MG Tablet PO SCH ×3 (05:09→21:20)
[2018-10-23] MEDS: Insulin NovoLOG Aspart Correctional Sugar Inj SQ SCH ×4 (08:16→20:32)
[2018-10-23] MEDS: Insulin Detemir Inj 1,000 UNIT/10 ML Vial SQ SCH ×2 (09:41→20:31)
[2018-10-23] MEDS: Furosemide 20 MG Tablet PO SCH ×2 (09:43→20:28)
[2018-10-23] MEDS: Azithromycin 250 MG Tablet PO SCH (09:43)
[2018-10-23] MEDS: Senna/Docusate Sodium 8.6/50 MG Tablet PO SCH ×2 (09:43→20:28)
[2018-10-23] MEDS: Multivitamin/Minerals Therapeutic Tablet PO SCH (09:43)
[2018-10-23] MEDS: Gabapentin 300 MG Capsule PO SCH ×3 (09:43→17:41)
[2018-10-23] MEDS: Sodium Chloride 0.9% 2 ML Flush BID IV.FLUSH SCH ×2 (09:43→20:29)
[2018-10-23] MEDS: Polysaccharide Iron Complex 150 MG Capsule PO SCH ×2 (10:22→20:28)
[2018-10-23] MEDS: Ramipril 2.5 MG Capsule PO SCH ×2 (10:22→10:24)
--- NOTE | 2018-10-23 10:23 | P.PN ---
Subjective Interval history: Follow-up discitis and right wrist pain. Requesting pain medicine adjustment per discussed with hand surgery will evaluate patient need for aspiration of the right wrist Physical Exam Vital signs: Vital Signs 10/22/18 12:00 10/22/18 16:00 10/22/18 20:00 Temperature 98.4 F 98.5 F 98 F Pulse Rate 81 83 80 Respiratory Rate 16 18 16 Blood Pressure 115/56 L 132/72 125/59 L Pulse Oximetry 96 97 97 10/23/18 00:00 10/23/18 08:00 Temperature 98.1 F 97.6 F Pulse Rate 77 74 Respiratory Rate 14 15 Blood Pressure 121/63 150/61 H Pulse Oximetry 99 100 Intake & Output 10/22/18 10/23/18 10/23/18 18:59 06:59 18:59 Intake Total 900 / 900 580 / 580 Output Total 500 / 500 400 / 400 Balance 400 / 400 180 / 180 Weight 94.4 kg Intake: IV 300 / 300 100 / 100 Mycamine Inj 150 MG In NS Inj 100 / 100 100 ML @ 100 mls/hr IV.SIG Q24H ROBBIE Rx#:[id number] Tygacil Inj 50 MG In NS Inj 100 200 / 200 100 / 100 ML @ 200 mls/hr IV.SIG Q12H ROBBIE Rx#:[id number] Oral 600 / 600 480 / 480 Output: Urine 500 / 500 400 / 400 Other: Date of Last Bowel Movement 10/15/18 # Bowel Movements 1 Narrative: GENERAL: No acute distress. LUNGS: Breath sounds decreased. HEART: Regular S1, S2, without murmurs, rubs or gallops. ABDOMEN: Bowel sounds present; flat, soft, non tender. EXTREMITIES: No clubbing or cyanosis or edema. Tender right wrist over dorsal surface with decreased range of motion SKIN: Light rash on the back mostly faded from previous. NEUROLOGIC: Nonfocal. Weakness at the left lower extremity. PSYCHIATRIC: Calm. - Urinary Catheter Management Indwelling Urethral Catheter Cath placed during this visit: yes, but has since been removed by the nurse Reason for continuing: Decision to DC catheter Removal date: 10/05/18 Removal time: 09:30 Results - Labs CBC & Chem 7: 10/22/18 06:04 10/22/18 06:04 Laboratory Results - last 24 hr 10/22/18 10/22/18 10/22/18 11:36 14:16 17:39 ESR POC Glucose 206 H 190 H C-Reactive Protein 5.75 H Rheumatoid Factor Scrn Negative Rheumatoid Factor Titer Not Reportable 10/22/18 10/23/18 10/23/18 22:01 06:45 06:45 ESR 124 H POC Glucose 231 H C-Reactive Protein 5.90 H Rheumatoid Factor Scrn Rheumatoid Factor Titer - Procedures L2-S1 posterior spinal fusion Pedicle screws fixation L2, L3, L4 6.5x50mm and s1 7.5x45, Rods [id number], Spine Wave system Use of 3D fluoroscopy wash, debridement and application of dehydrated human amnion/chorion membrane allograft left ring finger/palm Assessment and Plan - Assessment (1) Abscess of hand, left Code(s): L02.512 - Cutaneous abscess of left hand Status: Acute (2) Hoarse voice quality Code(s): R49.0 - Dysphonia Status: Acute - Plan 1. Catheter related infection from PICC line. 2. Thrombus of the right upper extremity related to PICC line. 3. 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 Sedimentation rate remain elevated. Continue Micafungin anticipate 8 - 12 weeks of antifungal for discitis / osteomyelitis due to Portia. 12/04/2017( 8 weeks) vs - 01/04/2018(12) weeks. Reinstate tigecycline because the sedimentation rate has not showed improvement. 4. 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 Switch to azithromycin by ID Followed by hand surgeon. Reportedly tendon was exposed. Suspected early or mild scapholunate associated collapse and dorsal intercalated segmental instability right wrist. Follow-up wrist MRI with possible infection versus inflammation would need aspiration by hand surgery, will need to hold Eliquis. Elevated ESR and CRP. Pupillary factor negative. Pending ANDRA. OT consult 5. Chronic pain on narcs. 6. Rash now appears to be due to pressure from patient laying on his back all day. 7. Leukocytosis. No clear etiology. Patient has been laying on his back and taking liquids. He potentially could be aspirating. Will monitor 8. VC paresis related to intubation. S/P ENT eval, expect slow recovery 9. thyroid nodule. US in 6 mos 10[address] ML nodule. CT in 6 mos 11. Atrial fibrillation currently rate-controlled. Ct Eliquis and CCB Diltiazem 12. HTN . Continue ramipril and furosemide 13. Diabetes mellitus. A1c 7.8. Continue Levemir 35 units AM, and Levemir 25 units at bedtime, SSI with Accu-Cheks per protocol 14. Anemia of acute blood loss. Monitor H&H and transfuse for hemoglobin less than 7 15. S/p fall with L1 compression injury. Per neurosurgery conservative management with brace and physical therapy 16. DVT prophylaxis: SCDs and eliquis Discussed Condition With: SNF vs C denied by [facility]
[2018-10-23] MEDS: Micafungin Inj 150 MG in Sodium Chlor 0.9% Inj 100 ML IV.SIG SCH (11:36)
[2018-10-23] MEDS: dilTIAZem CD 120 MG Capsule PO SCH (15:42)
--- NOTE | 2018-10-23 16:20 | P.PNID ---
Subjective Remarks: Patient notes that he has pain in his right wrist. Appears to be moving the right wrist without much difficulty. There is an area of redness is slightly decreased. Notes that his legs are not functioning well. Received physical therapy today. Talking in a whisper. No fever. denies chills. Sed rate decreased slightly. Antibiotics: Biaxin Micafungin Tigecycline Lines: Line sites with no evidence of infection. 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 Allergies/Adverse Reactions: Allergies No Known Drug Allergies Allergy (Verified 08/06/18 15:59) none *MDRO Multi-Drug Resistant Organism Adverse Reaction (Unknown, Uncoded 06/16/17 16:34) MRSA MRSA (foot wound) - 02/12/15, 11/12/16, 03/29/17; (toe) - 03/2016 Objective Vital Signs 10/22/18 20:00 10/23/18 00:00 10/23/18 08:00 Temperature 98 F 98.1 F 97.6 F Pulse Rate 80 77 74 Respiratory Rate 16 14 15 Blood Pressure 125/59 L 121/63 150/61 H Pulse Oximetry 97 99 100 10/23/18 12:00 Temperature 99.4 F Pulse Rate 85 Respiratory Rate 16 Blood Pressure 135/68 Pulse Oximetry 100 Intake & Output 10/22/18 10/23/18 10/23/18 18:59 06:59 18:59 Intake Total 900 / 900 580 / 580 100 / 100 Output Total 500 / 500 400 / 400 Balance 400 / 400 180 / 180 100 / 100 Weight 94.4 kg Intake: IV 300 / 300 100 / 100 100 / 100 Mycamine Inj 150 MG In NS Inj 100 / 100 100 / 100 100 ML @ 100 mls/hr IV.SIG Q24H ROBBIE Rx#:[id number] Tygacil Inj 50 MG In NS Inj 100 200 / 200 100 / 100 ML @ 200 mls/hr IV.SIG Q12H ROBBIE Rx#:[id number] Oral 600 / 600 480 / 480 Output: Urine 500 / 500 400 / 400 Other: Date of Last Bowel Movement 10/15/18 10/22/18 # Bowel Movements 1 Lab - Hematology Results 10/22/18 10/23/18 06:04 06:45 WBC 16.1 H RBC 3.57 L Hgb 9.0 L Hct 27.5 L MCV 77.0 L MCH 25.1 L MCHC 32.6 RDW 17.0 Plt Count 619 H MPV 6.4 L Neut % (Auto) 78.6 H Lymph % (Auto) 11.6 [place] % (Auto) 7.8 Eos % (Auto) 1.4 Baso % (Auto) 0.6 Neut # (Auto) 12.7 H Lymph # (Auto) 1.9 [place] # (Auto) 1.3 H Eos # (Auto) 0.2 Baso # (Auto) 0.1 WBC Differential . Differential Comment Auto diff final ESR 124 H Lab - Chemistry Results 10/21/18 10/21/18 10/22/18 17:52 19:56 06:04 Sodium 137 Potassium 4.0 Chloride 104 Carbon Dioxide 24.4 Anion Gap 9 BUN 29 H Creatinine 0.65 Estimated GFR Greater than 89 POC Glucose 335 H 248 H Random Glucose 50 L Calcium 9.1 Magnesium 2.1 C-Reactive Protein 10/22/18 10/22/18 10/22/18 08:27 11:36 14:16 Sodium Potassium Chloride Carbon Dioxide Anion Gap BUN Creatinine Estimated GFR POC Glucose 96 206 H Random Glucose Calcium Magnesium C-Reactive Protein 5.75 H 10/22/18 10/22/18 10/23/18 17:39 22:01 06:45 Sodium Potassium Chloride Carbon Dioxide Anion Gap BUN Creatinine Estimated GFR POC Glucose 190 H 231 H Random Glucose Calcium Magnesium C-Reactive Protein 5.90 H 10/23/18 10/23/18 10/23/18 08:12 09:41 12:23 Sodium Potassium Chloride Carbon Dioxide Anion Gap BUN Creatinine Estimated GFR POC Glucose 65 L 103 56 L Random Glucose Calcium Magnesium C-Reactive Protein Imaging: ITS Impressions Venous Doppler Study 09/23/18 13:35 CONCLUSION: 1. Occlusive thrombus in the proximal and mid cephalic vein. 2. Deep venous system is otherwise patent. 3. Heterogeneous hypoechoic collection along the right shoulder which could represent a hematoma and/or seroma. Lumbar Spine MRI 09/25/18 00:00 CONCLUSION: 1. Findings are diagnostic of discitis osteomyelitis at L4-L5 with epidural abscess posterior to the L4 and L5 vertebral body. This epidural material along with facet hypertrophy moderately narrows the spinal canal at this level. There additionally is some perivertebral enhancing material likely representing small perivertebral abscess. It is challenging to compare to the prior study since it was significantly degraded by motion artifact. However, the findings are similar and do not appear improved. 2. There is mild edema within the L2 disc space and minimal endplate irregularity and enhancement of L2. These changes could be secondary to degenerative disc disease but cannot exclude early discitis. Suggest attention to this area at follow-up imaging. Chest CT 10/15/18 00:00 CONCLUSION: 1. 7 mm nodular opacity in the right middle lobe: Surveillance recommended with follow-up scan in 6 months. 2. Mild interstitial prominence which may be inflammatory. 3. No evidence of consolidating airspace disease or pleural effusions. Soft Tissue Neck CT 10/15/18 00:00 CONCLUSION: 1. Left supraclavicular adenopathy. 2. Multiple small thyroid nodules bilaterally. Chest X-Ray 10/18/18 16:16 CONCLUSION: No acute cardiopulmonary disease. There is no definite evidence of pneumonia. Lumbar Spine X-Ray 10/20/18 00:00 CONCLUSION: 1. A suspected new/acute, mild compression fracture of L1. No retropulsed fragments are seen. 2. Recent postop fusion from L2 through S1 without evidence of an acute complication in the operative region. Wrist X-Ray 10/20/18 00:00 CONCLUSION: 1. No acute fracture or acute appearing malalignment of the right wrist. 2. Suspected early or mild scapholunate associated collapse and dorsal intercalated segmental instability. 3. 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 Lumbar Spine CT 10/21/18 00:00 CONCLUSION: 1. There has been interval fusion from L2 down to S1. There is minimal anterolisthesis of L4 on L5. There has been previous laminectomy at L4 and L5. 2. Destructive changes in the L4-5 endplates consistent with patient's history of previous discitis. There is paraspinous soft tissue extending from L4 down to S1. This is similar compared to previous exam. 3. There is a small amount of gas within the subcutaneous soft tissues at the L2 level. There are skin dilshad in place. 4. Individual levels are dictated in detail above. Wrist MRI 11/26/18 00:00 CONCLUSION: 1. Elongated subcutaneous fluid collection at the level of the distal radius with rim enhancement and potentially an abscess in the proper clinical setting. A focally thrombosed vessel would be conceivable. This collection does not appear to be within the tendon sheaths of adjacent extensor compartments 3 or 4. No intrinsic flexor or extensor tendon abnormality demonstrated. 2. Effusion and severe synovitis of the distal radioulnar joint and also synovitis in the prestyloid region. This is nonspecific; infectious and inflammatory etiologies are in the differential. If the distal radioulnar joint is infected, there are signal changes of the distal ulna that would be concerning for osteomyelitis. 3. DISI and SLAC wrist. Radial sided osteoarthritis. There is marrow edema of the scaphoid, mostly the distal half of the bone that is nonspecific but presumably reactive. 4. Mild to moderate osteoarthritis with subchondral cystic change of the lunotriquetral joint. This is underestimated radiographically. Physical Exam: PHYSICAL EXAMINATION: GENERAL: No acute distress. HEENT: Head atraumatic. Extraocular movements grossly intact. Pupils reactive to light, without icterus. Oropharynx: Moist mucosa. No visible lesions. No thrush. NECK: Supple without adenopathy or swelling. LUNGS: Breath sounds decreased. HEART: Regular S1, S2, without murmurs, rubs or gallops. ABDOMEN: Bowel sounds present; flat, soft, non tender. EXTREMITIES: No clubbing or cyanosis or edema. Redness at the ulnar aspect of the distal right wrist is decreased. Nodular area of swelling without erythema at the dorsal aspect of the right wrist. SKIN: No rash NEUROLOGIC: Nonfocal. Weakness at the left lower extremity. PSYCHIATRIC: Calm. Assessment and Plan - Plan ASSESSMENT AND PLAN: 1. Catheter related infection from PICC line. 2. Thrombus of the right upper extremity related to PICC line. 3. 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 Sedimentation down slightly. 4. 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 New tender erythematous area of swelling at the right wrist. Improved slightly. He is currently on antibiotic treatment for Mycobacterium abscessus. Followed by hand surgeon. Possible new abscess. ? inflammatory. Not clear about his response to treatment for the mycobacteria. (date of mycobacterium abscessus culture form left hand. 07/21/18 - 13 weeks ago.) 6 months of treatment recommended for osteomyelitis therefore will plan on treatment for that duration. That would push treatment up to 01/21/2019. 5. Chronic pain. 6. Rash resolved. could have been secondary to cefoxitin. 7. Leukocytosis. RECOMMENDATIONS: 1. Continue Micafungin for discitis and osteomyelitis. Anticipate 8 - 12 weeks of antifungal for discitis / osteomyelitis due to Portia. 12/04/2018( 8 weeks) vs - 01/04/2019(12) weeks. 2. Continue Azithromycin 500mg PO daily until 01/21/2019. 3. Continue Tigecycline until 01/21/19. (the sedimentation rate has not showed improvement.) follow LFTs, sed rate weekly. The Tigecycline should cover gram-positive organisms in addition to Mycobacterium abscessus. 4. Monitor white blood cell count. Will need ID follow up on discharge.
--- NOTE | 2018-10-23 16:58 | P.PN ---
Subjective Interval history: still complains of pain over the right wrist region, slightly better no fever complaint with dressing left hand Physical Exam Vital signs: Vital Signs 10/22/18 20:00 10/23/18 00:00 10/23/18 08:00 Temperature 98 F 98.1 F 97.6 F Pulse Rate 80 77 74 Respiratory Rate 16 14 15 Blood Pressure 125/59 L 121/63 150/61 H Pulse Oximetry 97 99 100 10/23/18 12:00 Temperature 99.4 F Pulse Rate 85 Respiratory Rate 16 Blood Pressure 135/68 Pulse Oximetry 100 Intake & Output 10/22/18 10/23/18 10/23/18 18:59 06:59 18:59 Intake Total 900 / 900 580 / 580 100 / 100 Output Total 500 / 500 400 / 400 Balance 400 / 400 180 / 180 100 / 100 Weight 94.4 kg Intake: IV 300 / 300 100 / 100 100 / 100 Mycamine Inj 150 MG In NS Inj 100 / 100 100 / 100 100 ML @ 100 mls/hr IV.SIG Q24H ROBBIE Rx#:[id number] Tygacil Inj 50 MG In NS Inj 100 200 / 200 100 / 100 ML @ 200 mls/hr IV.SIG Q12H ROBBIE Rx#:[id number] Oral 600 / 600 480 / 480 Output: Urine 500 / 500 400 / 400 Other: Date of Last Bowel Movement 10/15/18 10/22/18 # Bowel Movements 1 Narrative: left hand dressing place right wrist: swelling and redness along the ulnar aspect of the wrist tenderness noted over the ulnar aspect of the wrist. forearm rotations are painful and limited. localized mass over the dorsal aspect of the wrist which appears separate and non tender with no increased warmthWrist MRI 10/21/18 00:00 wrist mri reveiwed: 1. Elongated subcutaneous fluid collection at the level of the distal radius with rim enhancement and potentially an abscess in the proper clinical setting. A focally thrombosed vessel would be conceivable. This collection does not appear to be within the tendon sheaths of adjacent extensor compartments 3 or 4. No intrinsic flexor or extensor tendon abnormality demonstrated. 2. Effusion and severe synovitis of the distal radioulnar joint and also synovitis in the prestyloid region. This is nonspecific; infectious and inflammatory etiologies are in the differential. If the distal radioulnar joint is infected, there are signal changes of the distal ulna that would be concerning for osteomyelitis. 3. DISI and SLAC wrist. Radial sided osteoarthritis. There is marrow edema of the scaphoid, mostly the distal half of the bone that is nonspecific but presumably reactive. 4. Mild to moderate osteoarthritis with subchondral cystic change of the lunotriquetral joint. This is underestimated radiographically. - Urinary Catheter Management Indwelling Urethral Catheter Cath placed during this visit: yes, but has since been removed by the nurse Reason for continuing: Decision to DC catheter Removal date: 10/05/18 Removal time: 09:30 Results - Labs CBC & Chem 7: 10/22/18 06:04 10/22/18 06:04 Laboratory Results - last 24 hr 10/22/18 10/22/18 10/22/18 14:16 17:39 22:01 ESR POC Glucose 190 H 231 H C-Reactive Protein ANDRA Screen Neg 10/23/18 10/23/18 10/23/18 06:45 06:45 08:12 ESR 124 H POC Glucose 65 L C-Reactive Protein 5.90 H ANDRA Screen 10/23/18 10/23/18 09:41 12:23 ESR POC Glucose 103 56 L C-Reactive Protein ANDRA Screen - Imaging Wrist MRI 10/21/18 00:00 CONCLUSION: 1. Elongated subcutaneous fluid collection at the level of the distal radius with rim enhancement and potentially an abscess in the proper clinical setting. A focally thrombosed vessel would be conceivable. This collection does not appear to be within the tendon sheaths of adjacent extensor compartments 3 or 4. No intrinsic flexor or extensor tendon abnormality demonstrated. 2. Effusion and severe synovitis of the distal radioulnar joint and also synovitis in the prestyloid region. This is nonspecific; infectious and inflammatory etiologies are in the differential. If the distal radioulnar joint is infected, there are signal changes of the distal ulna that would be concerning for osteomyelitis. 3. DISI and SLAC wrist. Radial sided osteoarthritis. There is marrow edema of the scaphoid, mostly the distal half of the bone that is nonspecific but presumably reactive. 4. Mild to moderate osteoarthritis with subchondral cystic change of the lunotriquetral joint. This is underestimated radiographically. - Procedures L2-S1 posterior spinal fusion Pedicle screws fixation L2, L3, L4 6.5x50mm and s1 7.5x45, Rods [id number], Spine Wave system Use of 3D fluoroscopy wash, debridement and application of dehydrated human amnion/chorion membrane allograft left ring finger/palm Assessment and Plan - Assessment (1) Suppurative tenosynovitis of flexor tendon of left hand Code(s): M65.142 - Other infective (teno)synovitis, left hand Status: Chronic (2) Acute pain of right wrist Code(s): M25.531 - Pain in right wrist Status: Acute - Plan 58 year old male s/p closure of wound dehiscence left hand/ring finger finger with right wrist pain likely ECU tenosynovitis Plan: surrounding skin is cleaned with alcohol wipes adaptic and dressing applied keep the dressing on. right wrist: mass over the dorsal aspect of the right wrist unlikely abscess, no signs of inflammation inflammation of the DRUJ: will consider removable wrist brace and antiinflammatory medications hand surgery will follow
[2018-10-24] MEDS: Baclofen 10 MG Tablet PO SCH ×3 (05:27→21:41)
[2018-10-24 06:07] LABS: Baso # (Auto) 0.1 th/mm3 (0.0-0.2); Baso % (Auto) 0.8 % (0.0-2.0); Eos # (Auto) 0.2 th/mm3 (0.0-0.4); Eos % (Auto) 1.6 % (0.0-4.0); Hematocrit 25.2 % (39.0-51.0); Hemoglobin 8.5 gm/dL (13.0-17.0); Lymph # (Auto) 1.8 th/mm3 (1.0-4.8); Lymph % (Auto) 13.8 % (9.0-44.0); Mean Corpuscular HGB Conc 33.6 % (32.0-36.0); Mean Corpuscular Hemoglobin 25.3 pg (27.0-34.0); Mean Corpuscular Volume 75.2 fL (80.0-100.0); Mean Platelet Volume 6.3 fL (7.0-11.0); Mono # (Auto) 1.2 th/mm3 (0.0-0.9); Neut # (Auto) 9.7 th/mm3 (1.8-7.7); Neut % (Auto) 74.8 % (16.0-70.0); Platelet Count 556 th/mm3 (150-450); Red Blood Count 3.35 mil/mm3 (4.50-5.90); Red Cell Distribution Width 16.9 % (11.6-17.2); White Blood Count 12.9 th/mm3 (4.0-11.0)
[2018-10-24] MEDS: Insulin NovoLOG Aspart Correctional Sugar Inj SQ SCH ×4 (08:34→21:41)
[2018-10-24] MEDS: Insulin Detemir Inj 1,000 UNIT/10 ML Vial SQ SCH ×2 (08:35→21:41)
[2018-10-24] MEDS: Azithromycin 250 MG Tablet PO SCH (08:36)
[2018-10-24] MEDS: Furosemide 20 MG Tablet PO SCH ×2 (08:37→20:30)
[2018-10-24] MEDS: Senna/Docusate Sodium 8.6/50 MG Tablet PO SCH ×2 (08:37→20:30)
[2018-10-24] MEDS: Gabapentin 300 MG Capsule PO SCH ×3 (08:37→17:03)
[2018-10-24] MEDS: Multivitamin/Minerals Therapeutic Tablet PO SCH (08:37)
[2018-10-24] MEDS: Sodium Chloride 0.9% 2 ML Flush BID IV.FLUSH SCH ×2 (08:38→20:30)
[2018-10-24] MEDS: Polysaccharide Iron Complex 150 MG Capsule PO SCH ×2 (08:49→20:30)
[2018-10-24] MEDS: Ramipril 2.5 MG Capsule PO SCH (08:49)
--- NOTE | 2018-10-24 10:00 | P.PN ---
Subjective Interval history: Follow-up discitis, left hand infection and right hand inflammation. Patient undecided if he wants to go to SNF. Discussed with infectious disease, patient cleared for discharge when antibiotics arrange Physical Exam Vital signs: Vital Signs 10/23/18 12:00 10/23/18 20:00 10/23/18 21:20 Temperature 99.4 F 98.9 F Pulse Rate 85 74 Respiratory Rate 16 20 24 Blood Pressure 135/68 102/52 L Pulse Oximetry 100 98 10/24/18 00:00 Temperature 99.2 F Pulse Rate 73 Respiratory Rate 20 Blood Pressure 115/57 L Pulse Oximetry 98 Intake & Output 10/23/18 10/24/18 10/24/18 18:59 06:59 18:59 Intake Total 100 / 100 100 / 100 Output Total 1550 / 1550 Balance 100 / 100 -1450 / -1450 Weight 98.4 kg Intake: IV 100 / 100 100 / 100 Mycamine Inj 150 MG In NS Inj 100 / 100 100 ML @ 100 mls/hr IV.SIG Q24H ROBBIE Rx#:[id number] Tygacil Inj 50 MG In NS Inj 100 100 / 100 ML @ 200 mls/hr IV.SIG Q12H ROBBIE Rx#:[id number] Output: Urine 1550 / 1550 Other: Date of Last Bowel Movement 10/22/18 Narrative: GENERAL: No acute distress. LUNGS: Breath sounds decreased. HEART: Regular S1, S2, without murmurs, rubs or gallops. ABDOMEN: Bowel sounds present; flat, soft, non tender. EXTREMITIES: No clubbing or cyanosis or edema. Improving tenderness right wrist over dorsal surface with decreased range of motion SKIN: Light rash on the back mostly faded from previous. NEUROLOGIC: Nonfocal. Weakness at the left lower extremity. PSYCHIATRIC: Calm. - Urinary Catheter Management Indwelling Urethral Catheter Cath placed during this visit: yes, but has since been removed by the nurse Reason for continuing: Decision to DC catheter Removal date: 10/05/18 Removal time: 09:30 Results - Labs CBC & Chem 7: 10/24/18 04:32 10/22/18 06:04 Laboratory Results - last 24 hr 10/22/18 10/23/18 10/23/18 14:16 08:12 09:41 WBC RBC Hgb Hct MCV MCH MCHC RDW Plt Count MPV Neut % (Auto) Lymph % (Auto) [place] % (Auto) Eos % (Auto) Baso % (Auto) Neut # (Auto) Lymph # (Auto) [place] # (Auto) Eos # (Auto) Baso # (Auto) WBC Differential Differential Comment POC Glucose 65 L 103 ANDRA Screen Neg 10/23/18 10/23/18 10/23/18 12:23 17:30 20:31 WBC RBC Hgb Hct MCV MCH MCHC RDW Plt Count MPV Neut % (Auto) Lymph % (Auto) [place] % (Auto) Eos % (Auto) Baso % (Auto) Neut # (Auto) Lymph # (Auto) [place] # (Auto) Eos # (Auto) Baso # (Auto) WBC Differential Differential Comment POC Glucose 56 L 147 H 176 H ANDRA Screen 10/24/18 10/24/18 04:32 08:17 WBC 12.9 H RBC 3.35 L Hgb 8.5 L Hct 25.2 L MCV 75.2 L MCH 25.3 L MCHC 33.6 RDW 16.9 Plt Count 556 H MPV 6.3 L Neut % (Auto) 74.8 H Lymph % (Auto) 13.8 [place] % (Auto) 9.0 H Eos % (Auto) 1.6 Baso % (Auto) 0.8 Neut # (Auto) 9.7 H Lymph # (Auto) 1.8 [place] # (Auto) 1.2 H Eos # (Auto) 0.2 Baso # (Auto) 0.1 WBC Differential . Differential Comment Auto diff final POC Glucose 172 H ANDRA Screen - Procedures L2-S1 posterior spinal fusion Pedicle screws fixation L2, L3, L4 6.5x50mm and s1 7.5x45, Rods [id number], Spine Wave system Use of 3D fluoroscopy wash, debridement and application of dehydrated human amnion/chorion membrane allograft left ring finger/palm Assessment and Plan - Assessment (1) Abscess of hand, left Code(s): L02.512 - Cutaneous abscess of left hand Status: Acute (2) Hoarse voice quality Code(s): R49.0 - Dysphonia Status: Acute - Plan 1. Catheter related infection from PICC line. 2. Thrombus of the right upper extremity related to PICC line. 3. 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 Continue Micafungin for discitis and osteomyelitis. Anticipate 12 weeks of antifungal for discitis / osteomyelitis due to Portia stop date 01/04/2018(12) weeks. Continue Tigecycline until 01/21/18. (the sedimentation rate has not showed improvement.) follow LFTs, sed rate weekly. 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 Monitor white blood cell count which is improving. 4. 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 Switch to azithromycin by GIDEON velazquez 01/21/19 Followed by hand surgeon. Reportedly tendon was exposed. Suspected early or mild scapholunate associated collapse and dorsal intercalated segmental instability right wrist. Follow-up wrist MRI with possible infection versus inflammation per hand surgery favor inflammation. Elevated ESR and CRP. Rheumatoid factor and ANDRA negative. OT consult 5. Chronic pain on narcs. 6. Rash now appears to be due to pressure from patient laying on his back all day. 7. Leukocytosis. No clear etiology. Patient has been laying on his back and taking liquids. He potentially could be aspirating. Will monitor 8. VC paresis related to intubation. S/P ENT eval, expect slow recovery 9. thyroid nodule. US in 6 mos [address] ML nod[address]. CT in 6 mos 11. Atrial fibrillation currently rate-controlled. Ct Eliquis and CCB Diltiazem 12. HTN . Continue ramipril and furosemide 13. Diabetes mellitus. A1c 7.8. Continue Levemir 35 units AM, and Levemir 25 units at bedtime, SSI with Accu-Cheks per protocol. Hypoglycemia secondary to decreased oral intake. Patient counseled. Hypoglycemia protocol 14. Anemia of acute blood loss. Monitor H&H and transfuse for hemoglobin less than 7 15. S/p fall with L1 compression injury. Per neurosurgery conservative management with brace and physical therapy 16. DVT prophylaxis: SCDs and eliquis Discharge Planning: DC today
[2018-10-24] MEDS: Micafungin Inj 150 MG in Sodium Chlor 0.9% Inj 100 ML IV.SIG SCH (12:00)
--- NOTE | 2018-10-24 13:33 | P.PNID ---
Subjective Remarks: Patient notes that he has pain in his right wrist when he moves the wrist. No other complaints. Area of redness is decreased. No fever. Denies chills. The rash at the back is resolved. Antibiotics: Azithromycin p.o. stat 10/22/2018 Micafungin IV started 10/14/2018 Tigecycline IV started 10/18/2018 Received Biaxin until 10/22/2018 Received amphotericin B for 1 week prior to starting micafungin. Cefoxitin was discontinued because of rash 10/09/2018 Lines: Line peripheral IV intact . 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 Allergies/Adverse Reactions: Allergies No Known Drug Allergies Allergy (Verified 08/06/18 15:59) none *MDRO Multi-Drug Resistant Organism Adverse Reaction (Unknown, Uncoded 06/16/17 16:34) MRSA MRSA (foot wound) - 02/12/15, 11/12/16, 03/29/17; (toe) - 03/2016 Objective Vital Signs 10/23/18 20:00 10/23/18 21:20 10/24/18 00:00 Temperature 98.9 F 99.2 F Pulse Rate 74 73 Respiratory Rate 20 24 20 Blood Pressure 102/52 L 115/57 L Pulse Oximetry 98 98 10/24/18 08:00 10/24/18 12:00 Temperature 98.2 F 98.1 F Pulse Rate 80 70 Respiratory Rate 18 17 Blood Pressure 113/62 120/53 L Pulse Oximetry 99 92 L Intake & Output 10/23/18 10/24/18 10/24/18 18:59 06:59 18:59 Intake Total 100 / 100 100 / 100 Output Total 1550 / 1550 Balance 100 / 100 -1450 / -1450 Weight 98.4 kg Intake: IV 100 / 100 100 / 100 Mycamine Inj 150 MG In NS Inj 100 / 100 100 ML @ 100 mls/hr IV.SIG Q24H ROBBIE Rx#:[id number] Tygacil Inj 50 MG In NS Inj 100 100 / 100 ML @ 200 mls/hr IV.SIG Q12H ROBBIE Rx#:[id number] Output: Urine 1550 / 1550 Other: Date of Last Bowel Movement 10/22/18 Lab - Hematology Results 10/23/18 10/24/18 06:45 04:32 WBC 12.9 H RBC 3.35 L Hgb 8.5 L Hct 25.2 L MCV 75.2 L MCH 25.3 L MCHC 33.6 RDW 16.9 Plt Count 556 H MPV 6.3 L Neut % (Auto) 74.8 H Lymph % (Auto) 13.8 [place] % (Auto) 9.0 H Eos % (Auto) 1.6 Baso % (Auto) 0.8 Neut # (Auto) 9.7 H Lymph # (Auto) 1.8 [place] # (Auto) 1.2 H Eos # (Auto) 0.2 Baso # (Auto) 0.1 WBC Differential . Differential Comment Auto diff final ESR 124 H Lab - Chemistry Results 10/22/18 10/22/18 10/22/18 14:16 17:39 22:01 POC Glucose 190 H 231 H C-Reactive Protein 5.75 H 10/23/18 10/23/18 10/23/18 06:45 08:12 09:41 POC Glucose 65 L 103 C-Reactive Protein 5.90 H 10/23/18 10/23/18 10/23/18 12:23 17:30 20:31 POC Glucose 56 L 147 H 176 H C-Reactive Protein 10/24/18 10/24/18 08:17 12:02 POC Glucose 172 H 164 H C-Reactive Protein Imaging: ITS Impressions Venous Doppler Study 09/23/18 13:35 CONCLUSION: 1. Occlusive thrombus in the proximal and mid cephalic vein. 2. Deep venous system is otherwise patent. 3. Heterogeneous hypoechoic collection along the right shoulder which could represent a hematoma and/or seroma. Lumbar Spine MRI 09/25/18 00:00 CONCLUSION: 1. Findings are diagnostic of discitis osteomyelitis at L4-L5 with epidural abscess posterior to the L4 and L5 vertebral body. This epidural material along with facet hypertrophy moderately narrows the spinal canal at this level. There additionally is some perivertebral enhancing material likely representing small perivertebral abscess. It is challenging to compare to the prior study since it was significantly degraded by motion artifact. However, the findings are similar and do not appear improved. 2. There is mild edema within the L2 disc space and minimal endplate irregularity and enhancement of L2. These changes could be secondary to degenerative disc disease but cannot exclude early discitis. Suggest attention to this area at follow-up imaging. Chest CT 10/15/18 00:00 CONCLUSION: 1. 7 mm nodular opacity in the right middle lobe: Surveillance recommended with follow-up scan in 6 months. 2. Mild interstitial prominence which may be inflammatory. 3. No evidence of consolidating airspace disease or pleural effusions. Soft Tissue Neck CT 10/15/18 00:00 CONCLUSION: 1. Left supraclavicular adenopathy. 2. Multiple small thyroid nodules bilaterally. Chest X-Ray 10/18/18 16:16 CONCLUSION: No acute cardiopulmonary disease. There is no definite evidence of pneumonia. Lumbar Spine X-Ray 10/20/18 00:00 CONCLUSION: 1. A suspected new/acute, mild compression fracture of L1. No retropulsed fragments are seen. 2. Recent postop fusion from L2 through S1 without evidence of an acute complication in the operative region. Wrist X-Ray 10/20/18 00:00 CONCLUSION: 1. No acute fracture or acute appearing malalignment of the right wrist. 2. Suspected early or mild scapholunate associated collapse and dorsal intercalated segmental instability. 3. 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 Lumbar Spine CT 10/21/18 00:00 CONCLUSION: 1. There has been interval fusion from L2 down to S1. There is minimal anterolisthesis of L4 on L5. There has been previous laminectomy at L4 and L5. 2. Destructive changes in the L4-5 endplates consistent with patient's history of previous discitis. There is paraspinous soft tissue extending from L4 down to S1. This is similar compared to previous exam. 3. There is a small amount of gas within the subcutaneous soft tissues at the L2 level. There are skin dilshad in place. 4. Individual levels are dictated in detail above. Wrist MRI 10/21/18 00:00 CONCLUSION: 1. Elongated subcutaneous fluid collection at the level of the distal radius with rim enhancement and potentially an abscess in the proper clinical setting. A focally thrombosed vessel would be conceivable. This collection does not appear to be within the tendon sheaths of adjacent extensor compartments 3 or 4. No intrinsic flexor or extensor tendon abnormality demonstrated. 2. Effusion and severe synovitis of the distal radioulnar joint and also synovitis in the prestyloid region. This is nonspecific; infectious and inflammatory etiologies are in the differential. If the distal radioulnar joint is infected, there are signal changes of the distal ulna that would be concerning for osteomyelitis. 3. DISI and SLAC wrist. Radial sided osteoarthritis. There is marrow edema of the scaphoid, mostly the distal half of the bone that is nonspecific but presumably reactive. 4. Mild to moderate osteoarthritis with subchondral cystic change of the lunotriquetral joint. This is underestimated radiographically. Physical Exam: PHYSICAL EXAMINATION: GENERAL: No acute distress. HEENT: Head atraumatic. Extraocular movements grossly intact. Pupils reactive to light, without icterus. Oropharynx: Moist mucosa. No visible lesions. No thrush. NECK: Supple without adenopathy or swelling. LUNGS: Lungs are clear. HEART: Regular S1, S2, without murmurs, rubs or gallops. ABDOMEN: Bowel sounds present; flat, soft, non tender. EXTREMITIES: No clubbing or cyanosis or edema. Redness at the ulnar aspect of the distal right wrist. Nodular area of swelling without erythema at the dorsal aspect of the right wrist. SKIN: No rash NEUROLOGIC: Nonfocal. Weakness at the left lower extremity. PSYCHIATRIC: Calm. Assessment and Plan - Plan ASSESSMENT AND PLAN: 1. Catheter related infection from PICC line. 2. Thrombus of the right upper extremity related to PICC line. 3. 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 Sedimentation rate remain elevated. 4. 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 New erythematous area of swelling at the right wrist appears to be improving. He is currently on antibiotic treatment for Mycobacterium abscesses. Followed by hand surgeon. ? inflammatory. Not clear about his response to treatment for the mycobacteria. Date of mycobacterium abscessus culture form left hand. 07/21/18 - 13 weeks ago. 6 months of treatment recommended for osteomyelitis therefore will plan on treatment for that duration. That would push treatment up to 01/21/2019. 5. Chronic pain. 6. Rash resolved. 7. Leukocytosis. RECOMMENDATIONS: 1. Continue Micafungin for discitis and osteomyelitis. Plan for 12 weeks of antifungal for discitis / osteomyelitis due to Portia. until 01/04/2019(12) weeks. 2. Continue azithromycin 500mg PO daily until 01/21/2019. 3. Continue Tigecycline until 01/21/2019 The Tigecycline should cover gram-positive organisms in addition to Mycobacterium abscessus. Follow-up with Dr Orellana - infectious disease after discharge
--- NOTE | 2018-10-24 13:45 | P.DCO ---
Post Hospital Infusion Therapy - Infusion Therapy Location of Infusion Therapy: Home Health Care IV Infusion Order - Patient Information Patient Weight: 98.4 kg - Administer Medication Micafungin Dose: 100 mg IV Directions: q 24 hours Stop Treatment: 01/04/19 - Additional Information Additional Medications: Tigecycline 50mg IV Q 12HOURS until 01/21/2019 Venous Access: PICC Line Additional Instructions: [x] Peripheral flush and dressing changes per protocol [x] Implanted port and central lines tender: * Implanted port: 10 ml Normal Saline followed by 5 ml Heparin 100 units/ml Heparin flush after each use and monthly to maintain. [] May leave port accessed during therapy. [] May leave peripheral site accessed for duration of therapy. [x] If patient has SOB or respiratory distress, check oxygen saturation. If less than 90% or clinical signs of respiratory distress, administer oxygen at 2 L/min. via nasal cannula and notify physician. [x] Anaphylaxis/Reaction orders: * Stop infusion. * Keep IV line open with saline flush. * Notify physician. * Monitor vital signs every 15 minutes until symptoms resolve. * Check Oxygen saturation; Oxygen at 2 L/min. via nasal cannula if less than 90% or clinical signs of respiratory distress. * Administer diphenhydramine (Benadryl) 25 mg IV STAT, (unless patient has received as pre-med). May repeat once, if necessary. * Solu-Cortef 250 mg IVP over 30-60 seconds, use 100 mg vials for each dissolution. * Epinephrine (1mg/1 ml) 0.3 mg subcutaneously or IVP now with any signs of respiratory distress. * Check with physician for new additional pre-med orders if patient is re- challenged or re-treated. [x] May remove PICC line when treatment complete, after confirming with Physician. [x] If the patient is admitted to the hospital, the ED, or transferred via [facility] , complete transfer form including medication reconciliation order sheet. Weekly Labs: BMP, CBC w/diff, LFTs (Hepatic Function Test), SED Rate Additional Information: Follow-up [address] Orellana infectious disease. - Case Management Consult Case Management Consult-IVF: Yes - Patient Information Allergies No Known Drug Allergies Allergy (Verified 08/06/18 15:59) none *MDRO Multi-Drug Resistant Organism Adverse Reaction (Unknown, Uncoded 06/16/17 16:34) MRSA MRSA (foot wound) - 02/12/15, 11/12/16, 03/29/17; (toe) - 03/2016
--- NOTE | 2018-10-24 15:40 | P.DS ---
Date of admission: 09/24/18 09:43 Primary care physician: UNKNOWN Anticipated date of discharge: 09/26/18 Brief History from admission: Patient is a 58-year-old male who has had multiple hospitalizations for infection. Past medical history includes hypertension, hyperlipidemia, GERD , A. fib, DM and L4-5 discitis. He was most recently discharged on 09/17/18 with a right upper arm PICC for outpatient IV antibiotic infusion. He returns to the ED today with a complaint of the PICC line not working and swelling and pain in that arm. He denies any fever or chills. No chest pain or shortness of breath. No nausea vomiting or diarrhea. He is a somewhat poor historian and is primarily focused on discussing his foot and back pain which are chronic issues. DS: Diagnosis - Discharge Diagnosis (1) Abscess of hand, left Status: Acute (2) Hoarse voice quality Status: Acute DS: Medications - Discharge Medications Prescriptions: azithromycin 500 mg PO DAILY #60 tab micafungin [Mycamine] 150 mg IV Q24H #30 ea oxycodone 30 mg PO Q4H PRN 3 Days #18 tab PRN Reason: Acute Pain tigecycline [Tygacil] 50 mg IV Q12H #60 ea DS: Summary Hospital Course: 1. Catheter related infection from PICC line. 2. Thrombus of the right upper extremity related to PICC line. 3. 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 Continue Micafungin for discitis and osteomyelitis. Anticipate 12 weeks of antifungal for discitis / osteomyelitis due to Portia stop date 01/04/2018(12) weeks. Continue Tigecycline until 01/21/18. (the sedimentation rate has not showed improvement.) follow LFTs, sed rate weekly. 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 Monitor white blood cell count which is improving. 4. 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 Switch to azithromycin by GIDEON velazquez 01/21/19 Followed by hand surgeon. Reportedly tendon was exposed. Suspected early or mild scapholunate associated collapse and dorsal intercalated segmental instability right wrist. Follow-up wrist MRI with possible infection versus inflammation per hand surgery favor inflammation. Elevated ESR and CRP. Rheumatoid factor and ANDRA negative. OT consult 5. [place] Prescription Drug Monitoring Database has been queried and verified prior to prescribing the controlled subsection. Patient is having significant pain caused by [disciitis] which will last more than 3 days. Trial of alternative treatment options other than prescribed opioids has not helped. I believe that it is medically necessary to treat the patients pain because it is affecting patients ability to [do ADL]. 6. Rash now appears to be due to pressure from patient laying on his back all day. 7. Leukocytosis. No clear etiology. Patient has been laying on his back and taking liquids. He potentially could be aspirating. Will monitor 8. VC paresis related to intubation. S/P ENT eval, expect slow recovery 9. thyroid nodule. US in 6 mos [address] ML nodule. CT in 6 mos 11. Atrial fibrillation currently rate-controlled. Ct Eliquis and CCB Diltiazem 12. HTN . Continue ramipril and furosemide 13. Diabetes mellitus. A1c 7.8. Continue Levemir 36 units AM, and Levemir 25 units at bedtime, SSI with Accu-Cheks per protocol. Hypoglycemia secondary to decreased oral intake. Patient counseled. Hypoglycemia protocol 14. Anemia of acute blood loss. Monitor H&H and transfuse for hemoglobin less than 7 15. S/p fall with L1 compression injury. Per neurosurgery conservative management with brace and physical therapy 16. DVT prophylaxis: SCDs and eliquis - Time Spent with Patient Total time spent providing and/or coordinating discharge services: Greater than 30 minutes - Quality: VTE Deep Vein Thrombosis/Pulmonary Embolism Present on Admission: No Exam Vital signs: Vital Signs 10/23/18 20:00 10/23/18 21:20 10/24/18 00:00 Temperature 98.9 F 99.2 F Pulse Rate 74 73 Respiratory Rate 20 24 20 Blood Pressure 102/52 L 115/57 L Pulse Oximetry 98 98 10/24/18 08:00 10/24/18 12:00 Temperature 98.2 F 98.1 F Pulse Rate 80 70 Respiratory Rate 18 17 Blood Pressure 113/62 120/53 L Pulse Oximetry 99 92 L Intake & Output 10/23/18 10/24/18 10/24/18 18:59 06:59 18:59 Intake Total 100 / 100 100 / 100 100 / 100 Output Total 1550 / 1550 Balance 100 / 100 -1450 / -1450 100 / 100 Weight 98.4 kg 98.4 kg Intake: IV 100 / 100 100 / 100 100 / 100 Mycamine Inj 150 MG In NS Inj 100 / 100 100 / 100 100 ML @ 100 mls/hr IV.SIG Q24H ROBBIE Rx#:[id number] Tygacil Inj 50 MG In NS Inj 100 100 / 100 ML @ 200 mls/hr IV.SIG Q12H ROBBIE Rx#:[id number] Output: Urine 1550 / 1550 Other: Date of Last Bowel Movement 10/22/18 Narrative: GENERAL: No acute distress. LUNGS: Breath sounds decreased. HEART: Regular S1, S2, without murmurs, rubs or gallops. ABDOMEN: Bowel sounds present; flat, soft, non tender. EXTREMITIES: No clubbing or cyanosis or edema. Improving tenderness right wrist over dorsal surface with decreased range of motion SKIN: Light rash on the back mostly faded from previous. NEUROLOGIC: Nonfocal. Weakness at the left lower extremity. PSYCHIATRIC: Calm. Results Procedures completed during hospitalization: L2-S1 posterior spinal fusion Pedicle screws fixation L2, L3, L4 6.5x50mm and s1 7.5x45, Rods [id number], Spine Wave system Use of 3D fluoroscopy wash, debridement and application of dehydrated human amnion/chorion membrane allograft left ring finger/palm Completed studies during hospitalization: Pending at discharge 10/04/18 07:38 Surgical [PTH] Routine Labs on day of discharge: Labs from last 24 hours 10/24/18 10/24/18 10/24/18 12:02 08:17 04:32 WBC 12.9 H RBC 3.35 L Hgb 8.5 L Hct 25.2 L MCV 75.2 L MCH 25.3 L MCHC 33.6 RDW 16.9 Plt Count 556 H MPV 6.3 L Neut % (Auto) 74.8 H Lymph % (Auto) 13.8 [place] % (Auto) 9.0 H Eos % (Auto) 1.6 Baso % (Auto) 0.8 Neut # (Auto) 9.7 H Lymph # (Auto) 1.8 [place] # (Auto) 1.2 H Eos # (Auto) 0.2 Baso # (Auto) 0.1 WBC Differential . Differential Comment Auto diff final POC Glucose 164 H 172 H 10/23/18 10/23/18 20:31 17:30 WBC RBC Hgb Hct MCV MCH MCHC RDW Plt Count MPV Neut % (Auto) Lymph % (Auto) [place] % (Auto) Eos % (Auto) Baso % (Auto) Neut # (Auto) Lymph # (Auto) [place] # (Auto) Eos # (Auto) Baso # (Auto) WBC Differential Differential Comment POC Glucose 176 H 147 H Preliminary micro results at discharge 10/04/18 16:56 Fungal Culture - Preliminary Tissue - Other No growth in 2 weeks 10/04/18 16:56 Mycobacterial Culture - Preliminary Tissue - Other No growth in 2 weeks 10/04/18 16:05 Fungal Culture - Preliminary Wound - Other No growth in 2 weeks 10/04/18 16:05 Mycobacterial Culture - Preliminary Wound - Other No growth in 2 weeks 10/04/18 16:05 Fungal Culture - Preliminary Wound - Other No growth in 2 weeks 10/04/18 16:05 Mycobacterial Culture - Preliminary Wound - Other No growth in 2 weeks - Impressions ITS Impressions Venous Doppler Study 09/23/18 13:35 CONCLUSION: 1. Occlusive thrombus in the proximal and mid cephalic vein. 2. Deep venous system is otherwise patent. 3. Heterogeneous hypoechoic collection along the right shoulder which could represent a hematoma and/or seroma. Lumbar Spine MRI 09/25/18 00:00 CONCLUSION: 1. Findings are diagnostic of discitis osteomyelitis at L4-L5 with epidural abscess posterior to the L4 and L5 vertebral body. This epidural material along with facet hypertrophy moderately narrows the spinal canal at this level. There additionally is some perivertebral enhancing material likely representing small perivertebral abscess. It is challenging to compare to the prior study since it was significantly degraded by motion artifact. However, the findings are similar and do not appear improved. 2. There is mild edema within the L2 disc space and minimal endplate irregularity and enhancement of L2. These changes could be secondary to degenerative disc disease but cannot exclude early discitis. Suggest attention to this area at follow-up imaging. Chest CT 10/15/18 00:00 CONCLUSION: 1. 7 mm nodular opacity in the right middle lobe: Surveillance recommended with follow-up scan in 6 months. 2. Mild interstitial prominence which may be inflammatory. 3. No evidence of consolidating airspace disease or pleural effusions. Soft Tissue Neck CT 10/15/18 00:00 CONCLUSION: 1. Left supraclavicular adenopathy. 2. Multiple small thyroid nodules bilaterally. Chest X-Ray 10/18/18 16:16 CONCLUSION: No acute cardiopulmonary disease. There is no definite evidence of pneumonia. Lumbar Spine X-Ray 10/20/18 00:00 CONCLUSION: 1. A suspected new/acute, mild compression fracture of L1. No retropulsed fragments are seen. 2. Recent postop fusion from L2 through S1 without evidence of an acute complication in the operative region. Wrist X-Ray 10/20/18 00:00 CONCLUSION: 1. No acute fracture or acute appearing malalignment of the right wrist. 2. Suspected early or mild scapholunate associated collapse and dorsal intercalated segmental instability. 3. 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 Lumbar Spine CT 10/21/18 00:00 CONCLUSION: 1. There has been interval fusion from L2 down to S1. There is minimal anterolisthesis of L4 on L5. There has been previous laminectomy at L4 and L5. 2. Destructive changes in the L4-5 endplates consistent with patient's history of previous discitis. There is paraspinous soft tissue extending from L4 down to S1. This is similar compared to previous exam. 3. There is a small amount of gas within the subcutaneous soft tissues at the L2 level. There are skin dilshad in place. 4. Individual levels are dictated in detail above. Wrist MRI 10/21/18 00:00 CONCLUSION: 1. Elongated subcutaneous fluid collection at the level of the distal radius with rim enhancement and potentially an abscess in the proper clinical setting. A focally thrombosed vessel would be conceivable. This collection does not appear to be within the tendon sheaths of adjacent extensor compartments 3 or 4. No intrinsic flexor or extensor tendon abnormality demonstrated. 2. Effusion and severe synovitis of the distal radioulnar joint and also synovitis in the prestyloid region. This is nonspecific; infectious and inflammatory etiologies are in the differential. If the distal radioulnar joint is infected, there are signal changes of the distal ulna that would be concerning for osteomyelitis. 3. DISI and SLAC wrist. Radial sided osteoarthritis. There is marrow edema of the scaphoid, mostly the distal half of the bone that is nonspecific but presumably reactive. 4. Mild to moderate osteoarthritis with subchondral cystic change of the lunotriquetral joint. This is underestimated radiographically. Discharge Plan - Discharge Disposition Patient Disposition: Discharge to SNF - Discharge Condition Condition: Stable - Discharge Order Discharge Orders: Discharge Order (Routine); Ordered 10/24/18 Ordered By: Benito Hunter - Discharge Details Anticipated Discharge Date: 09/26/18 Discharge Comment: Follow-up with infectious disease: Dr. Orellana is an outpatient in 1 week - Physicians Team Primary Care Provider: UNKNOWN, Attending Provider: Benito Hunter Other Providers: Slim Slaughter MD ; Loulou Treviño MD ; [facility] ; Zee Villalba MD ; Brandon Ignacio MD ; Rliey Saucedo MD ; Forrest Ng DO ; Rob Groves MD ; Kiko Mcmanus MD ; Ismael Cloud MD ; Bay Guardado, PhD ; [facility]
[2018-10-24] MEDS: dilTIAZem CD 120 MG Capsule PO SCH (16:48)
[2018-10-25] MEDS: Baclofen 10 MG Tablet PO SCH ×4 (05:49→22:13)
[2018-10-25] MEDS: Insulin NovoLOG Aspart Correctional Sugar Inj SQ SCH ×4 (08:12→20:33)
[2018-10-25] MEDS: Azithromycin 250 MG Tablet PO SCH (08:12)
[2018-10-25] MEDS: Senna/Docusate Sodium 8.6/50 MG Tablet PO SCH ×2 (08:13→20:30)
[2018-10-25] MEDS: Multivitamin/Minerals Therapeutic Tablet PO SCH (08:13)
[2018-10-25] MEDS: Ramipril 2.5 MG Capsule PO SCH (08:13)
[2018-10-25] MEDS: Polysaccharide Iron Complex 150 MG Capsule PO SCH ×2 (08:13→20:31)
[2018-10-25] MEDS: Gabapentin 300 MG Capsule PO SCH ×3 (08:13→17:45)
[2018-10-25] MEDS: Furosemide 20 MG Tablet PO SCH ×2 (08:13→20:31)
[2018-10-25] MEDS: Heparin Central Flush 100 UNIT/ML 5 ML Vial IV.FLUSH SCH (08:14)
[2018-10-25] MEDS: Insulin Detemir Inj 1,000 UNIT/10 ML Vial SQ SCH ×2 (08:15→20:32)
[2018-10-25] MEDS: Sodium Chloride 0.9% 2 ML Flush BID IV.FLUSH SCH ×2 (08:15→20:32)
--- NOTE | 2018-10-25 10:10 | P.PN ---
Subjective Interval history: F/u diskiitis. Refused to be dc yesterday b/c he did not like the facilities where he was referred to. DW CM Physical Exam Vital signs: Vital Signs 10/24/18 12:00 10/24/18 16:00 10/24/18 20:00 Temperature 98.1 F 99.6 F 98.6 F Pulse Rate 70 87 78 Respiratory Rate 17 16 16 Blood Pressure 120/53 L 122/68 127/58 L Pulse Oximetry 92 L 97 93 L 10/24/18 21:33 10/25/18 00:00 10/25/18 08:00 Temperature 98.3 F 98.5 F Pulse Rate 80 77 Respiratory Rate 20 16 19 Blood Pressure 108/71 178/98 H Pulse Oximetry 93 L 93 L Intake & Output 10/24/18 10/25/18 10/25/18 18:59 06:59 18:59 Intake Total 200 / 200 880 / 880 Output Total 1000 / 1000 Balance 200 / 200 -120 / -120 Weight 98.4 kg 98 kg Intake: IV 200 / 200 100 / 100 Mycamine Inj 150 MG In NS Inj 100 / 100 100 ML @ 100 mls/hr IV.SIG Q24H ROBBIE Rx#:[id number] Tygacil Inj 50 MG In NS Inj 100 100 / 100 100 / 100 ML @ 200 mls/hr IV.SIG Q12H ROBBIE Rx#:[id number] Oral 780 / 780 Output: Urine 1000 / 1000 Other: Date of Last Bowel Movement 10/22/18 Narrative: GENERAL: No acute distress. LUNGS: Breath sounds decreased. HEART: Regular S1, S2, without murmurs, rubs or gallops. ABDOMEN: Bowel sounds present; flat, soft, non tender. EXTREMITIES: No clubbing or cyanosis or edema. Improving tenderness right wrist over dorsal surface with decreased range of motion SKIN: Light rash on the back mostly faded from previous. NEUROLOGIC: Nonfocal. Weakness at the left lower extremity. PSYCHIATRIC: Calm. - Urinary Catheter Management Indwelling Urethral Catheter Cath placed during this visit: yes, but has since been removed by the nurse Reason for continuing: Decision to DC catheter Removal date: 10/05/18 Removal time: 09:30 Results - Labs CBC & Chem 7: 10/24/18 04:32 10/22/18 06:04 Laboratory Results - last 24 hr 10/24/18 10/24/18 10/24/18 12:02 16:50 21:41 POC Glucose 164 H 262 H 124 H 10/25/18 10/25/18 07:30 08:01 POC Glucose 58 L 85 - Procedures L2-S1 posterior spinal fusion Pedicle screws fixation L2, L3, L4 6.5x50mm and s1 7.5x45, Rods [id number], Spine Wave system Use of 3D fluoroscopy wash, debridement and application of dehydrated human amnion/chorion membrane allograft left ring finger/palm Assessment and Plan - Assessment (1) Abscess of hand, left Code(s): L02.512 - Cutaneous abscess of left hand Status: Acute (2) Hoarse voice quality Code(s): R49.0 - Dysphonia Status: Acute - Plan 1. Catheter related infection from PICC line. 2. Thrombus of the right upper extremity related to PICC line. 3. 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 Continue Micafungin for discitis and osteomyelitis. Anticipate 12 weeks of antifungal for discitis / osteomyelitis due to Portia stop date 01/04/2018(12) weeks. Continue Tigecycline until 01/21/18. (the sedimentation rate has not showed improvement.) follow LFTs, sed rate weekly. 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 Monitor white blood cell count which is improving. 4. 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 Switch to azithromycin by ID marcus 01/21/19 Followed by hand surgeon. Reportedly tendon was exposed. Suspected early or mild scapholunate associated collapse and dorsal intercalated segmental instability right wrist. Follow-up wrist MRI with possible infection versus inflammation per hand surgery favor inflammation. Elevated ESR and CRP. Rheumatoid factor and ANDRA negative. OT consult 5. Chronic pain on narcs. 6. Rash now appears to be due to pressure from patient laying on his back all day. 7. Leukocytosis. No clear etiology. Patient has been laying on his back and taking liquids. He potentially could be aspirating. Will monitor 8. VC paresis related to intubation. S/P ENT eval, expect slow recovery 9. thyroid nodule. US in 6 mos 10[address] ML nodule. CT in 6 mos 11. Atrial fibrillation currently rate-controlled. Ct Eliquis and CCB Diltiazem 12. HTN . Continue ramipril and furosemide 13. Diabetes mellitus. A1c 7.8. Decrease Levemir to 36 units units AM, and continue Levemir 25 units at bedtime, SSI with Accu-Cheks per protocol. Hypoglycemia secondary to decreased oral intake. Patient counseled. Hypoglycemia protocol 14. Anemia of acute blood loss. Monitor H&H and transfuse for hemoglobin less than 7 15. S/p fall with L1 compression injury. Per neurosurgery conservative management with brace and physical therapy 16. DVT prophylaxis: SCDs and eliquis Discharge Planning: DC today
[2018-10-25] MEDS: Micafungin Inj 150 MG in Sodium Chlor 0.9% Inj 100 ML IV.SIG SCH (12:24)
[2018-10-25] MEDS: dilTIAZem CD 120 MG Capsule PO SCH (16:29)
[2018-10-26] MEDS: Baclofen 10 MG Tablet PO SCH ×4 (04:41→21:25)
[2018-10-26] MEDS: Ramipril 2.5 MG Capsule PO SCH (08:42)
[2018-10-26] MEDS: Insulin NovoLOG Aspart Correctional Sugar Inj SQ SCH ×4 (08:42→22:05)
[2018-10-26] MEDS: Gabapentin 300 MG Capsule PO SCH ×3 (08:43→17:10)
[2018-10-26] MEDS: Polysaccharide Iron Complex 150 MG Capsule PO SCH ×2 (08:43→21:25)
[2018-10-26] MEDS: Multivitamin/Minerals Therapeutic Tablet PO SCH (08:43)
[2018-10-26] MEDS: Furosemide 20 MG Tablet PO SCH ×2 (08:43→21:26)
[2018-10-26] MEDS: Senna/Docusate Sodium 8.6/50 MG Tablet PO SCH ×2 (08:44→21:25)
[2018-10-26] MEDS: Azithromycin 250 MG Tablet PO SCH (08:44)
[2018-10-26] MEDS: Insulin Detemir Inj 1,000 UNIT/10 ML Vial SQ SCH ×2 (08:45→21:26)
[2018-10-26] MEDS: Heparin Central Flush 100 UNIT/ML 5 ML Vial IV.FLUSH SCH (08:46)
[2018-10-26] MEDS: Sodium Chloride 0.9% 2 ML Flush BID IV.FLUSH SCH ×2 (08:46→21:26)
[2018-10-26] MEDS: Micafungin Inj 150 MG in Sodium Chlor 0.9% Inj 100 ML IV.SIG SCH (12:38)
--- NOTE | 2018-10-26 13:57 | P.PN ---
Subjective Interval history: Agrees to rehab but not able to arrange til Sunday Physical Exam Vital signs: Vital Signs 10/25/18 16:00 10/25/18 20:00 10/26/18 00:00 Temperature 98.2 F 98.9 F 98.5 F Pulse Rate 71 75 66 Respiratory Rate 16 16 16 Blood Pressure 113/66 127/65 105/66 Pulse Oximetry 97 95 95 10/26/18 08:00 10/26/18 12:00 Temperature 98.4 F 98.1 F Pulse Rate 61 82 Respiratory Rate 18 18 Blood Pressure 108/55 L 112/62 Pulse Oximetry 96 96 Intake & Output 10/25/18 10/26/18 10/26/18 18:59 06:59 18:59 Intake Total 1600 / 1600 1020 / 1020 Output Total 1500 / 1500 1999 Balance 100 / 100 -980 / -980 Weight 98 kg Intake: IV 200 / 200 100 / 100 Mycamine Inj 150 MG In NS Inj 100 / 100 100 ML @ 100 mls/hr IV.SIG Q24H ROBBIE Rx#:[id number] Tygacil Inj 50 MG In NS Inj 100 100 / 100 100 / 100 ML @ 200 mls/hr IV.SIG Q12H ROBBIE Rx#:[id number] Oral 1400 / 1400 920 / 920 Output: Urine 1500 / 1500 1999 Other: Date of Last Bowel Movement 10/25/18 10/25/18 # Bowel Movements 1 Narrative: GENERAL: No acute distress. LUNGS: Breath sounds decreased. HEART: Regular S1, S2, without murmurs, rubs or gallops. ABDOMEN: Bowel sounds present; flat, soft, non tender. EXTREMITIES: No clubbing or cyanosis or edema. Improving tenderness right wrist over dorsal surface with decreased range of motion SKIN: Light rash on the back mostly faded from previous. NEUROLOGIC: Nonfocal. Weakness at the left lower extremity. PSYCHIATRIC: Calm. - Urinary Catheter Management Indwelling Urethral Catheter Cath placed during this visit: yes, but has since been removed by the nurse Reason for continuing: Decision to DC catheter Removal date: 10/05/18 Removal time: 09:30 Results - Labs CBC & Chem 7: 10/24/18 04:32 10/22/18 06:04 Laboratory Results - last 24 hr 10/25/18 10/25/18 10/26/18 16:31 19:38 08:41 POC Glucose 89 198 H 133 H 10/26/18 12:02 POC Glucose 173 H Microbiology 10/04/18 16:56 Tissue - Other Fungal Smear - Final No fungal elements seen 10/04/18 16:56 Tissue - Other Fungal Culture - Preliminary No growth in 3 weeks 10/04/18 16:56 Tissue - Other Acid Fast Bacilli Smear - Final No acid fast bacilli seen 10/04/18 16:56 Tissue - Other Mycobacterial Culture - Preliminary No growth in 3 weeks 10/04/18 16:05 Wound - Other Fungal Smear - Final No fungal elements seen 10/04/18 16:05 Wound - Other Fungal Culture - Preliminary No growth in 3 weeks 10/04/18 16:05 Wound - Other Acid Fast Bacilli Smear - Final No acid fast bacilli seen 10/04/18 16:05 Wound - Other Mycobacterial Culture - Preliminary No growth in 3 weeks 10/04/18 16:05 Wound - Other Fungal Smear - Final No fungal elements seen 10/04/18 16:05 Wound - Other Fungal Culture - Preliminary No growth in 3 weeks 10/04/18 16:05 Wound - Other Acid Fast Bacilli Smear - Final No acid fast bacilli seen 10/04/18 16:05 Wound - Other Mycobacterial Culture - Preliminary No growth in 3 weeks - Procedures L2-S1 posterior spinal fusion Pedicle screws fixation L2, L3, L4 6.5x50mm and s1 7.5x45, Rods [id number], Spine Wave system Use of 3D fluoroscopy wash, debridement and application of dehydrated human amnion/chorion membrane allograft left ring finger/palm Assessment and Plan - Assessment (1) Abscess of hand, left Code(s): L02.512 - Cutaneous abscess of left hand Status: Acute (2) Hoarse voice quality Code(s): R49.0 - Dysphonia Status: Acute - Plan 1. Catheter related infection from PICC line. 2. Thrombus of the right upper extremity related to PICC line. 3. 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 Continue Micafungin for discitis and osteomyelitis. Anticipate 12 weeks of antifungal for discitis / osteomyelitis due to Portia stop date 01/04/2018(12) weeks. Continue Tigecycline until 01/21/18. (the sedimentation rate has not showed improvement.) follow LFTs, sed rate weekly. 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 Monitor white blood cell count which is improving. 4. 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 Switch to azithromycin by GIDEON velazquez 01/21/19 Followed by hand surgeon. Reportedly tendon was exposed. Suspected early or mild scapholunate associated collapse and dorsal intercalated segmental instability right wrist. Follow-up wrist MRI with possible infection versus inflammation per hand surgery favor inflammation. Elevated ESR and CRP. Rheumatoid factor and ANDRA negative. OT consult 5. Chronic pain on narcs. 6. Rash now appears to be due to pressure from patient laying on his back all day. 7. Leukocytosis. No clear etiology. Patient has been laying on his back and taking liquids. He potentially could be aspirating. Will monitor 8. VC paresis related to intubation. S/P ENT eval, expect slow recovery 9. thyroid nodule. US in 6 mos 10. ML nodule. CT in 6 mos 11. Atrial fibrillation currently rate-controlled. Ct Eliquis and CCB Diltiazem 12. HTN . Continue ramipril and furosemide 13. Diabetes mellitus. A1c 7.8. Levemir 36 units units AM, and 25 units at bedtime, SSI with Accu-Cheks per protocol. Hypoglycemia secondary to decreased oral intake, improved. Patient counseled. Hypoglycemia protocol 14. Anemia of acute blood loss. Monitor H&H and transfuse for hemoglobin less than 7 15. S/p fall with L1 compression injury. Per neurosurgery conservative management with brace and physical therapy 16. DVT prophylaxis: SCDs and eliquis Discharge Planning: Pending SNF acceptance
[2018-10-26] MEDS: dilTIAZem CD 120 MG Capsule PO SCH (17:10)
[2018-10-27] MEDS: Baclofen 10 MG Tablet PO SCH ×3 (05:04→21:00)
[2018-10-27] MEDS: Insulin NovoLOG Aspart Correctional Sugar Inj SQ SCH ×4 (08:16→20:16)
[2018-10-27] MEDS: Multivitamin/Minerals Therapeutic Tablet PO SCH (08:19)
[2018-10-27] MEDS: Ramipril 2.5 MG Capsule PO SCH (08:19)
[2018-10-27] MEDS: Senna/Docusate Sodium 8.6/50 MG Tablet PO SCH ×2 (08:19→20:18)
[2018-10-27] MEDS: Polysaccharide Iron Complex 150 MG Capsule PO SCH ×2 (08:19→20:18)
[2018-10-27] MEDS: Azithromycin 250 MG Tablet PO SCH (08:19)
[2018-10-27] MEDS: Furosemide 20 MG Tablet PO SCH ×2 (08:20→20:16)
[2018-10-27] MEDS: Heparin Central Flush 100 UNIT/ML 5 ML Vial IV.FLUSH SCH (08:20)
[2018-10-27] MEDS: Gabapentin 300 MG Capsule PO SCH ×3 (08:20→18:03)
[2018-10-27] MEDS: Sodium Chloride 0.9% 2 ML Flush BID IV.FLUSH SCH ×2 (08:21→20:17)
[2018-10-27] MEDS: Insulin Detemir Inj 1,000 UNIT/10 ML Vial SQ SCH ×2 (08:32→20:16)
--- NOTE | 2018-10-27 09:39 | P.PN ---
Subjective Interval history: F/u Dm and disciitis. Upset demanding wanting to be done with left lower extremity. Discussed with neurosurgery to obtain repeat MRI of the lumbar spine. Physical Exam Vital signs: Vital Signs 10/26/18 12:00 10/26/18 16:00 10/26/18 20:00 Temperature 98.1 F 98.5 F 99.3 F Pulse Rate 82 82 79 Respiratory Rate 18 18 17 Blood Pressure 112/62 133/60 109/56 L Pulse Oximetry 96 100 98 10/26/18 21:00 10/27/18 00:00 10/27/18 08:00 Temperature 98.4 F 97.9 F Pulse Rate 69 67 Respiratory Rate 18 16 17 Blood Pressure 108/54 L 122/59 L Pulse Oximetry 100 97 Intake & Output 10/26/18 10/27/18 10/27/18 18:59 06:59 18:59 Intake Total 1300 / 1300 920 / 920 Output Total 300 / 300 1200 / 1200 Balance 1000 / 1000 -280 / -280 Weight 95.1 kg Intake: IV 100 / 100 200 / 200 Mycamine Inj 150 MG In NS Inj 100 / 100 100 ML @ 100 mls/hr IV.SIG Q24H ROBBIE Rx#:[id number] Tygacil Inj 50 MG In NS Inj 100 200 / 200 ML @ 200 mls/hr IV.SIG Q12H ROBBIE Rx#:[id number] Oral 1200 / 1200 720 / 720 Output: Urine 300 / 300 1200 / 1200 Other: # Voids 1 Date of Last Bowel Movement 10/25/18 # Bowel Movements 1 Narrative: GENERAL: No acute distress. LUNGS: Breath sounds decreased. HEART: Regular S1, S2, without murmurs, rubs or gallops. ABDOMEN: Bowel sounds present; flat, soft, non tender. EXTREMITIES: No clubbing or cyanosis or edema. Improving tenderness right wrist over dorsal surface with decreased range of motion SKIN: Light rash on the back mostly faded from previous. NEUROLOGIC: Nonfocal. Weakness at the left lower extremity. PSYCHIATRIC: Calm. - Urinary Catheter Management Indwelling Urethral Catheter Cath placed during this visit: yes, but has since been removed by the nurse Reason for continuing: Decision to DC catheter Removal date: 10/05/18 Removal time: 09:30 Results - Labs CBC & Chem 7: 10/24/18 04:32 10/22/18 06:04 Laboratory Results - last 24 hr 10/26/18 10/26/18 10/26/18 12:02 17:49 21:30 POC Glucose 173 H 159 H 74 10/26/18 10/27/18 22:37 08:13 POC Glucose 79 114 H - Procedures L2-S1 posterior spinal fusion Pedicle screws fixation L2, L3, L4 6.5x50mm and s1 7.5x45, Rods [id number], Spine Wave system Use of 3D fluoroscopy wash, debridement and application of dehydrated human amnion/chorion membrane allograft left ring finger/palm Assessment and Plan - Assessment (1) Abscess of hand, left Code(s): L02.512 - Cutaneous abscess of left hand Status: Acute (2) Hoarse voice quality Code(s): R49.0 - Dysphonia Status: Acute - Plan 1. Catheter related infection from PICC line. 2. Thrombus of the right upper extremity related to PICC line. 3. 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 Continue Micafungin for discitis and osteomyelitis. Anticipate 12 weeks of antifungal for discitis / osteomyelitis due to Portia stop date 01/04/2018(12) weeks. Continue Tigecycline until 01/21/18. (the sedimentation rate has not showed improvement.) follow LFTs, sed rate weekly. 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 Monitor white blood cell count which is improving. Left lower extremity weakness, repeat MRI of the lumbar spine. Continue physical therapy 4. 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 Switch to azithromycin by GIDEON velazquez 01/21/19 Followed by hand surgeon. Reportedly tendon was exposed. Suspected early or mild scapholunate associated collapse and dorsal intercalated segmental instability right wrist. Follow-up wrist MRI with possible infection versus inflammation per hand surgery favor inflammation. Elevated ESR and CRP. Rheumatoid factor and ANDRA negative. OT consult 5. Chronic pain on narcs. 6. Rash now appears to be due to pressure from patient laying on his back all day. 7. Leukocytosis. No clear etiology. Patient has been laying on his back and taking liquids. He potentially could be aspirating. Will monitor 8. VC paresis related to intubation. S/P ENT eval, expect slow recovery 9. thyroid nodule. US in 6 mos 10. ML nodule. CT in 6 mos 11. Atrial fibrillation currently rate-controlled. Ct Eliquis and CCB Diltiazem 12. HTN . Continue ramipril and furosemide 13. Diabetes mellitus. A1c 7.8. Levemir 36 units units AM, and 25 units at bedtime, SSI with Accu-Cheks per protocol. Hypoglycemia secondary to decreased oral intake, improved. Patient counseled. Hypoglycemia protocol 14. Anemia of acute blood loss. Monitor H&H and transfuse for hemoglobin less than 7 15. S/p fall with L1 compression injury. Per neurosurgery conservative management with brace and physical therapy 16. DVT prophylaxis: SCDs and eliquis Discharge Planning: Pending SNF acceptance
[2018-10-27] MEDS: Micafungin Inj 150 MG in Sodium Chlor 0.9% Inj 100 ML IV.SIG SCH (11:05)
--- NOTE | 2018-10-27 13:53 | P.PNNS ---
Subjective Interval history: Interval f/u Physical Exam Vital signs: Vital Signs 10/26/18 16:00 10/26/18 20:00 10/26/18 21:00 Temperature 98.5 F 99.3 F Pulse Rate 82 79 Respiratory Rate 18 17 18 Blood Pressure 133/60 109/56 L Pulse Oximetry 100 98 10/27/18 00:00 10/27/18 08:00 10/27/18 12:00 Temperature 98.4 F 97.9 F 98.4 F Pulse Rate 69 67 68 Respiratory Rate 16 17 18 Blood Pressure 108/54 L 122/59 L 127/59 L Pulse Oximetry 100 97 99 Intake & Output 10/26/18 10/27/18 10/27/18 18:59 06:59 18:59 Intake Total 1300 / 1300 920 / 920 Output Total 300 / 300 1200 / 1200 Balance 1000 / 1000 -280 / -280 Weight 95.1 kg Intake: IV 100 / 100 200 / 200 Mycamine Inj 150 MG In NS Inj 100 / 100 100 ML @ 100 mls/hr IV.SIG Q24H ROBBIE Rx#:[id number] Tygacil Inj 50 MG In NS Inj 100 200 / 200 ML @ 200 mls/hr IV.SIG Q12H ROBBIE Rx#:[id number] Oral 1200 / 1200 720 / 720 Output: Urine 300 / 300 1200 / 1200 Other: # Voids 1 Date of Last Bowel Movement 10/25/18 10/25/18 # Bowel Movements 1 Narrative: GENERAL: No acute distress. LUNGS: Breath sounds decreased. HEART: Regular S1, S2, without murmurs, rubs or gallops. ABDOMEN: Bowel sounds present; flat, soft, non tender. EXTREMITIES: No clubbing or cyanosis or edema. Improving tenderness right wrist over dorsal surface with decreased range of motion SKIN: Light rash on the back mostly faded from previous. NEUROLOGIC: Nonfocal. Weakness at the left lower extremity. PSYCHIATRIC: Calm. Exam: Left leg 3/5 in hip flexor and knee extensor (femoral vs. L3/4 left) Significant weakness but this has been stable through this hospital course Right leg full strength - Urinary Catheter Management Indwelling Urethral Catheter Cath placed during this visit: yes, but has since been removed by the nurse Reason for continuing: Decision to DC catheter Removal date: 10/05/18 Removal time: 09:30 Assessment and Plan - Plan MRI: 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 Plan: 10/01/18: Given the persistent symptoms, it is reasonable to stabilize his spine with instrumentation from L2-S1 and simultaneously do a laminectomy at L4/5 to get cultures. Patient understands the risks of surgery including paralysis and sepsis, and wishes to proceed. I discussed with ID and the medicine team. There is risk of instrumentation failure down the line due to persistent infection and his history of susceptibility to infections. However, conservative measures do not look like they are working with IV abx and bracing does not seem to be helping. We will proceed tomorrow with surgery, monitoring , instrumentation, concentric C. 10/02/18: Surgery today postpone as patient got one dose of eliquis on 10/01 in the morning. Recommendations to wait 48 hours given heavy risk of bleeding and already low preop H/H of 8.3/24. Type and Cross to be performed for full antibody panel, plan Sunday noon case at present. Discussed with patient, anesthesiologist and primary team Adela CRAIG. 10/03/18: surgery with Dr. Groves planned for tomorrow. NPO tonight at midnight. 10/04/18: surgery tentatively 1:30 today 10/05/18: Follow cultures from OR -- ID. Mobilize (ok to have brace off for short distances, would prefer to use brace when walking long distance). D/c maki. Pain control and ok for transfer back to primary service. Continue to monitor drain output. L-spine xrays today. 10/06/18: Xrays look good. OR cultures -- 1 positive for Portia, rest pending. Mobilize. D/c crystalizer tender tomorrow per primary team. Transferred to floor. Brace when walking long distances-- PT. 10/07/18: cont PIA draining for today given his infection. f/u cultures, cont abx therapy per ID. Brace when ambulating, cont PT 10/08: keep PIA in today, monitor output and reassess tomorrow. ROSMERY dressing removed, replaced with Optifoam dressing to be changed daily. dw nursing, will return tomorrow 10/09: clear to remove PIA drain today. continue bid primapore changes and wound monitoring. dilshad to be removed 10/16/18. cont therapy, brace when OOB. ok to dc to SNF/rehab from [facility] standpoint once abx tx arranged. katie Martini ok for patient to resume his Eliquis 10/11: D/c PIA Drain today. NSG will follow peripherally going forward. 10/21: CT L-spine given small L1 compression. Continue bracing. No further intervention needed at this time. [place] should be dc'd now. 10/27/[address] L-spine showing good hardware alignment. Discussed with DR. Hunter reasonable to obtain MRI L-spine with contrast to follow infection but unlikely there is any intervention to improve his leg strength except for rehab at this point, likely due to osteomyelitis. Hardware and surgery appear intact. Would like to use optifoam silver dressing for back wound given some areas of redness scabbing. Communicated with nurse. Recommended Rehab and PT and the patient was amenable.
[2018-10-27] MEDS ORDERED: Gadobutrol PF 10 MMOL/10 ML Vial (for RAD) IV.SIG ONE (16:27)
--- NOTE | 2018-10-27 16:50 | MR ---
EXAM DATE: 10/27/2018 4:35 PM EST AGE/SEX: 58 years / Male INDICATIONS: Osteomyelitis. CLINICAL DATA: This is the patient's initial encounter. Patient reports that signs and symptoms have been present for 1 day and indicates a pain score of 0/10. MEDICAL/SURGICAL HISTORY: . Discitis. Fusion, lumbar. COMPARISON: [facility] – [place], [place] LUMBAR SPINE W & W/O CONTRAST, 09/25/2018. . TECHNIQUE: Multiplanar, multisequence MRI examination of the lumbar spine was performed without and with 9 ml Omniscan (gadodiamide) contrast as a single exam dose. FINDINGS: Vertebra: The most caudal-appearing lumbar vertebra is numbered as L5. Postsurgical features of serra spedicular screw and posterior luis fixation at L2-S1. Redemonstration of endplate destructive changes at L4-5 with enhancing fluid signal in the disc space. There is two-vessel improved enhancement and fluid signal in the posterior epidural space. Residual peripherally enhancing fluid in the disc space extending anteriorly to the prevertebral soft tissues. Endplate edema and enhancement noted at L2-3 on prior MRI exam is less prominent on current examination and partially obscured by artifact. Remain ing vertebral bodies demonstrate homogeneous signal. Discs: Disc space signal changes, as above. Moderate severe disc space narrowing at L5-S1, degenerat ksenia in appearance. Conus: Normal level and configuration. Paraspinal Soft Tissues: No significantfocal renal abnormalities in the visualized kidneys. Visualize d aorta is non-aneurysmal. No gross Retroperitoneal adenopathy. Axial evaluation is significantly limited by hardware artifact. Overall, there is no other significan t change from multiple prior CTs and MRI exams. CONCLUSION: 1. Interval posterior fusion at L2-S1. 2. Persistent endplate destructive changes at L4-5 with significantly improved epidural abscess. 3. There is improved but persistent peripherally enhancing fluid signal in the L4-5 disc space exten ding anteriorly to the prevertebral soft tissues. Findings are concerning for recurrent/residual disc itis and prevertebral phlegmon. Electronically signed by: Jeromy Carranza MD 10/27/2018 4:48 PM EST
[2018-10-27] MEDS: dilTIAZem CD 120 MG Capsule PO SCH (18:03)
[2018-10-28] MEDS: Baclofen 10 MG Tablet PO SCH ×4 (05:23→21:33)
[2018-10-28 06:25] LABS: Baso # (Auto) 0.1 th/mm3 (0.0-0.2); Baso % (Auto) 0.8 % (0.0-2.0); Eos # (Auto) 0.1 th/mm3 (0.0-0.4); Eos % (Auto) 1.4 % (0.0-4.0); Hematocrit 23.3 % (39.0-51.0); Hemoglobin 7.8 gm/dL (13.0-17.0); Lymph # (Auto) 1.4 th/mm3 (1.0-4.8); Lymph % (Auto) 14.3 % (9.0-44.0); Mean Corpuscular HGB Conc 33.6 % (32.0-36.0); Mean Corpuscular Hemoglobin 25.3 pg (27.0-34.0); Mean Corpuscular Volume 75.2 fL (80.0-100.0); Mean Platelet Volume 6.6 fL (7.0-11.0); Mono # (Auto) 0.9 th/mm3 (0.0-0.9); Mono % (Auto) 9.1 % (0.0-8.0); Neut # (Auto) 7.1 th/mm3 (1.8-7.7); Neut % (Auto) 74.4 % (16.0-70.0); Platelet Count 447 th/mm3 (150-450); Red Cell Distribution Width 16.6 % (11.6-17.2); White Blood Count 9.5 th/mm3 (4.0-11.0)
[2018-10-28] MEDS: Furosemide 20 MG Tablet PO SCH ×2 (08:20→20:42)
[2018-10-28] MEDS: Senna/Docusate Sodium 8.6/50 MG Tablet PO SCH ×2 (08:20→20:42)
[2018-10-28] MEDS: Heparin Central Flush 100 UNIT/ML 5 ML Vial IV.FLUSH SCH (08:21)
[2018-10-28] MEDS: Gabapentin 300 MG Capsule PO SCH ×3 (08:21→17:36)
[2018-10-28] MEDS: Ramipril 2.5 MG Capsule PO SCH (08:21)
[2018-10-28] MEDS: Multivitamin/Minerals Therapeutic Tablet PO SCH (08:21)
[2018-10-28] MEDS: Azithromycin 250 MG Tablet PO SCH (08:21)
[2018-10-28] MEDS: Insulin Detemir Inj 1,000 UNIT/10 ML Vial SQ SCH ×2 (08:21→20:43)
[2018-10-28] MEDS: Polysaccharide Iron Complex 150 MG Capsule PO SCH ×2 (08:21→20:43)
[2018-10-28] MEDS: Insulin NovoLOG Aspart Correctional Sugar Inj SQ SCH ×4 (08:22→20:47)
--- NOTE | 2018-10-28 10:07 | P.PN ---
Subjective Interval history: Follow-up discitis. Repeat lumbar spine MRI results discussed with patient. Per neurosurgery, improved discitis/abscess. No further surgery at this time needs rehab. Patient insists on consulting Dr. Verdugo who operated on his left quads secondary to left lower extremity weakness. Discussed with ortho PA, no indication for consultation since problem is being addressed by neurosurgery Physical Exam Vital signs: Vital Signs 10/27/18 12:00 10/27/18 16:00 10/27/18 20:00 Temperature 98.4 F 97.7 F 98.4 F Pulse Rate 68 68 68 Respiratory Rate 18 18 16 Blood Pressure 127/59 L 122/56 L 121/55 L Pulse Oximetry 99 100 97 10/28/18 00:00 10/28/18 07:29 10/28/18 08:00 Temperature 98.6 F 98 F Pulse Rate 73 88 Respiratory Rate 17 16 16 Blood Pressure 129/60 145/65 H Pulse Oximetry 100 96 Intake & Output 10/27/18 10/28/18 10/28/18 18:59 06:59 18:59 Intake Total 1900 / 1900 200 / 200 Output Total 1200 / 1200 600 / 600 Balance 700 / 700 -400 / -400 Weight 82.6 kg Intake: IV 100 / 100 200 / 200 Mycamine Inj 150 MG In NS Inj 100 / 100 100 ML @ 100 mls/hr IV.SIG Q24H ROBBIE Rx#:[id number] Tygacil Inj 50 MG In NS Inj 100 200 / 200 ML @ 200 mls/hr IV.SIG Q12H ROBBIE Rx#:[id number] Oral 1800 / 1800 Output: Urine 1200 / 1200 600 / 600 Other: Date of Last Bowel Movement 10/25/18 # Bowel Movements 0 Narrative: GENERAL: No acute distress. LUNGS: Breath sounds decreased. HEART: Regular S1, S2, without murmurs, rubs or gallops. ABDOMEN: Bowel sounds present; flat, soft, non tender. EXTREMITIES: No clubbing or cyanosis or edema. Improving tenderness right wrist over dorsal surface with decreased range of motion SKIN: Light rash on the back mostly faded from previous. NEUROLOGIC: Nonfocal. Weakness at the left lower extremity. PSYCHIATRIC: Calm. - Urinary Catheter Management Indwelling Urethral Catheter Cath placed during this visit: yes, but has since been removed by the nurse Reason for continuing: Decision to DC catheter Removal date: 10/05/18 Removal time: 09:30 Results - Labs CBC & Chem 7: 10/28/18 05:30 10/22/18 06:04 Laboratory Results - last 24 hr 10/27/18 10/27/18 10/27/18 11:12 18:01 20:12 WBC RBC Hgb Hct MCV MCH MCHC RDW Plt Count MPV Neut % (Auto) Lymph % (Auto) [place] % (Auto) Eos % (Auto) Baso % (Auto) Neut # (Auto) Lymph # (Auto) [place] # (Auto) Eos # (Auto) Baso # (Auto) WBC Differential Differential Comment ESR POC Glucose 170 H 203 H 250 H C-Reactive Protein 10/28/18 10/28/18 10/28/18 05:30 05:30 08:00 WBC 9.5 RBC 3.10 L Hgb 7.8 L Hct 23.3 L MCV 75.2 L MCH 25.3 L MCHC 33.6 RDW 16.6 Plt Count 447 MPV 6.6 L Neut % (Auto) 74.4 H Lymph % (Auto) 14.3 [place] % (Auto) 9.1 H Eos % (Auto) 1.4 Baso % (Auto) 0.8 Neut # (Auto) 7.1 Lymph # (Auto) 1.4 [place] # (Auto) 0.9 Eos # (Auto) 0.1 Baso # (Auto) 0.1 WBC Differential . Differential Comment Auto diff final ESR 125 H POC Glucose C-Reactive Protein 6.80 H 10/28/18 08:03 WBC RBC Hgb Hct MCV MCH MCHC RDW Plt Count MPV Neut % (Auto) Lymph % (Auto) [place] % (Auto) Eos % (Auto) Baso % (Auto) Neut # (Auto) Lymph # (Auto) [place] # (Auto) Eos # (Auto) Baso # (Auto) WBC Differential Differential Comment ESR POC Glucose 143 H C-Reactive Protein - Imaging Impressions Lumbar Spine MRI 10/27/18 00:00 CONCLUSION: 1. Interval posterior fusion at L2-S1. 2. Persistent endplate destructive changes at L4-5 with significantly improved epidural abscess. 3. There is improved but persistent peripherally enhancing fluid signal in the L4-5 disc space extending anteriorly to the prevertebral soft tissues. Findings are concerning for recurrent/residual discitis and prevertebral phlegmon. - Procedures L2-S1 posterior spinal fusion Pedicle screws fixation L2, L3, L4 6.5x50mm and s1 7.5x45, Rods [id number], Spine Wave system Use of 3D fluoroscopy wash, debridement and application of dehydrated human amnion/chorion membrane allograft left ring finger/palm Assessment and Plan - Assessment (1) Abscess of hand, left Code(s): L02.512 - Cutaneous abscess of left hand Status: Acute (2) Hoarse voice quality Code(s): R49.0 - Dysphonia Status: Acute - Plan 1. Catheter related infection from PICC line. 2. Thrombus of the right upper extremity related to PICC line. 3. 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 Continue Micafungin for discitis and osteomyelitis. Anticipate 12 weeks of antifungal for discitis / osteomyelitis due to Portia stop date 01/04/2018(12) weeks. Continue Tigecycline until 01/21/18. (the sedimentation rate has not showed improvement.) follow LFTs, sed rate weekly. 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 Monitor white blood cell count which is improving. Repeat MRI of the lumbar spine showed improved abscess and discitis per neurosurgery who recommended physical therapy to help with left lower extremity weakness. 4. 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 Switch to azithromycin by GIDEON velazquez 01/21/19 Followed by hand surgeon. Reportedly tendon was exposed. Suspected early or mild scapholunate associated collapse and dorsal intercalated segmental instability right wrist. Follow-up wrist MRI with possible infection versus inflammation per hand surgery favor inflammation. Elevated ESR and CRP. Rheumatoid factor and ANDRA negative. OT consult 5. S/p fall with L1 compression injury. Per neurosurgery conservative management with brace and physical therapy 6. Rash now appears to be due to pressure from patient laying on his back all day. 7. Leukocytosis. No clear etiology. Patient has been laying on his back and taking liquids. He potentially could be aspirating. Will monitor 8. VC paresis related to intubation. S/P ENT eval, expect slow recovery 9. thyroid nodule. US in 6 mos 10[address] ML nodule. CT in 6 mos 11. Atrial fibrillation currently rate-controlled. Ct Eliquis and CCB Diltiazem 12. HTN . Continue ramipril and furosemide 13. Diabetes mellitus. A1c 7.8. Levemir 36 units units AM, and 25 units at bedtime, SSI with Accu-Cheks per protocol. Hypoglycemia secondary to decreased oral intake, improved. Patient counseled. Hypoglycemia protocol 14. Anemia of acute blood loss. Monitor H&H and transfuse for hemoglobin less than 7 15. DVT prophylaxis: SCDs and eliquis Discharge Planning: Pending SNF acceptance
[2018-10-28] MEDS: Sodium Chloride 0.9% 2 ML Flush BID IV.FLUSH SCH ×2 (12:11→20:43)
[2018-10-28] MEDS: Micafungin Inj 150 MG in Sodium Chlor 0.9% Inj 100 ML IV.SIG SCH (12:28)
[2018-10-28] MEDS: dilTIAZem CD 120 MG Capsule PO SCH (16:21)
[2018-10-29] MEDS: Baclofen 10 MG Tablet PO SCH ×3 (05:54→21:28)
[2018-10-29] MEDS: Heparin Central Flush 100 UNIT/ML 5 ML Vial IV.FLUSH PRN (06:36)
[2018-10-29] MEDS: Insulin NovoLOG Aspart Correctional Sugar Inj SQ SCH ×4 (08:21→21:27)
--- NOTE | 2018-10-29 08:21 | P.PN ---
Subjective Interval history: Follow-up lab retention. BP elevated will increase ramipril. Awaiting SNF acceptance. Patient advised no indication to consult patient's orthopedic surgeon Dr. Verdugo. His left lower extremity weakness is already being managed by neurosurgery Physical Exam Vital signs: Vital Signs 10/28/18 12:00 10/28/18 12:11 10/28/18 12:12 Temperature 98 F Pulse Rate 91 H Respiratory Rate 18 16 16 Blood Pressure 159/80 H Pulse Oximetry 96 10/28/18 15:40 10/28/18 16:00 10/28/18 17:26 Temperature 99.0 F Pulse Rate 87 Respiratory Rate 16 18 18 Blood Pressure 138/63 Pulse Oximetry 100 10/28/18 20:00 10/29/18 00:00 Temperature 99.4 F 98.0 F Pulse Rate 77 73 Respiratory Rate 18 18 Blood Pressure 161/66 H 176/84 H Pulse Oximetry 94 L 99 Intake & Output 10/28/18 10/29/18 10/29/18 18:59 06:59 18:59 Intake Total 1000 / 1000 240 / 240 Output Total 900 / 900 975 / 975 Balance 100 / 100 -735 / -735 Weight 82.5 kg Intake: IV 200 / 200 Mycamine Inj 150 MG In NS Inj 100 / 100 100 ML @ 100 mls/hr IV.SIG Q24H ROBBIE Rx#:[id number] Tygacil Inj 50 MG In NS Inj 100 100 / 100 ML @ 200 mls/hr IV.SIG Q12H ROBBIE Rx#:[id number] Oral 800 / 800 240 / 240 Output: Urine 900 / 900 975 / 975 Other: Date of Last Bowel Movement 10/27/18 Narrative: GENERAL: No acute distress. LUNGS: Breath sounds decreased. HEART: Regular S1, S2, without murmurs, rubs or gallops. ABDOMEN: Bowel sounds present; flat, soft, non tender. EXTREMITIES: No clubbing or cyanosis or edema. Improving tenderness right wrist over dorsal surface with decreased range of motion NEUROLOGIC: Nonfocal. Weakness at the left lower extremity. - Urinary Catheter Management Indwelling Urethral Catheter Cath placed during this visit: yes, but has since been removed by the nurse Reason for continuing: Decision to DC catheter Removal date: 10/05/18 Removal time: 09:30 Results - Labs CBC & Chem 7: 10/28/18 05:30 10/22/18 06:04 Laboratory Results - last 24 hr 10/28/18 10/28/18 10/28/18 08:00 12:21 17:40 POC Glucose 125 H 106 C-Reactive Protein 6.80 H 10/28/18 20:46 POC Glucose 168 H C-Reactive Protein - Imaging ITS Impressions Venous Doppler Study 09/23/18 13:35 CONCLUSION: 1. Occlusive thrombus in the proximal and mid cephalic vein. 2. Deep venous system is otherwise patent. 3. Heterogeneous hypoechoic collection along the right shoulder which could represent a hematoma and/or seroma. Chest CT 10/15/18 00:00 CONCLUSION: 1. 7 mm nodular opacity in the right middle lobe: Surveillance recommended with follow-up scan in 6 months. 2. Mild interstitial prominence which may be inflammatory. 3. No evidence of consolidating airspace disease or pleural effusions. Soft Tissue Neck CT 10/15/18 00:00 CONCLUSION: 1. Left supraclavicular adenopathy. 2. Multiple small thyroid nodules bilaterally. Chest X-Ray 10/18/18 16:16 CONCLUSION: No acute cardiopulmonary disease. There is no definite evidence of pneumonia. Lumbar Spine X-Ray 10/20/18 00:00 CONCLUSION: 1. A suspected new/acute, mild compression fracture of L1. No retropulsed fragments are seen. 2. Recent postop fusion from L2 through S1 without evidence of an acute complication in the operative region. Wrist X-Ray 10/20/18 00:00 CONCLUSION: 1. No acute fracture or acute appearing malalignment of the right wrist. 2. Suspected early or mild scapholunate associated collapse and dorsal intercalated segmental instability. 3. 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 Lumbar Spine CT 10/21/18 00:00 CONCLUSION: 1. There has been interval fusion from L2 down to S1. There is minimal anterolisthesis of L4 on L5. There has been previous laminectomy at L4 and L5. 2. Destructive changes in the L4-5 endplates consistent with patient's history of previous discitis. There is paraspinous soft tissue extending from L4 down to S1. This is similar compared to previous exam. 3. There is a small amount of gas within the subcutaneous soft tissues at the L2 level. There are skin dilshad in place. 4. Individual levels are dictated in detail above. Wrist MRI 10/21/18 00:00 CONCLUSION: 1. Elongated subcutaneous fluid collection at the level of the distal radius with rim enhancement and potentially an abscess in the proper clinical setting. A focally thrombosed vessel would be conceivable. This collection does not appear to be within the tendon sheaths of adjacent extensor compartments 3 or 4. No intrinsic flexor or extensor tendon abnormality demonstrated. 2. Effusion and severe synovitis of the distal radioulnar joint and also synovitis in the prestyloid region. This is nonspecific; infectious and inflammatory etiologies are in the differential. If the distal radioulnar joint is infected, there are signal changes of the distal ulna that would be concerning for osteomyelitis. 3. DISI and SLAC wrist. Radial sided osteoarthritis. There is marrow edema of the scaphoid, mostly the distal half of the bone that is nonspecific but presumably reactive. 4. Mild to moderate osteoarthritis with subchondral cystic change of the lunotriquetral joint. This is underestimated radiographically. Lumbar Spine MRI 10/27/18 00:00 CONCLUSION: 1. Interval posterior fusion at L2-S1. 2. Persistent endplate destructive changes at L4-5 with significantly improved epidural abscess. 3. There is improved but persistent peripherally enhancing fluid signal in the L4-5 disc space extending anteriorly to the prevertebral soft tissues. Findings are concerning for recurrent/residual discitis and prevertebral phlegmon. - Procedures L2-S1 posterior spinal fusion Pedicle screws fixation L2, L3, L4 6.5x50mm and s1 7.5x45, Rods [id number], Spine Wave system Use of 3D fluoroscopy wash, debridement and application of dehydrated human amnion/chorion membrane allograft left ring finger/palm Assessment and Plan - Assessment (1) Abscess of hand, left Code(s): L02.512 - Cutaneous abscess of left hand Status: Acute (2) Hoarse voice quality Code(s): R49.0 - Dysphonia Status: Acute - Plan 1. Catheter related infection from PICC line. 2. Thrombus of the right upper extremity related to PICC line. 3. 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 Continue Micafungin for discitis and osteomyelitis. Anticipate 12 weeks of antifungal for discitis / osteomyelitis due to Portia stop date 01/04/2018(12) weeks. Continue Tigecycline until 01/21/18. (the sedimentation rate has not showed improvement.) follow LFTs, sed rate weekly. 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 Monitor white blood cell count which is improving. Repeat MRI of the lumbar spine showed improved abscess and discitis per neurosurgery who recommended physical therapy to help with left lower extremity weakness. 4. 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 Switch to azithromycin by GIDEON velazquez 01/21/19 Followed by hand surgeon. Reportedly tendon was exposed. Suspected early or mild scapholunate associated collapse and dorsal intercalated segmental instability right wrist. Follow-up wrist MRI with possible infection versus inflammation per hand surgery favor inflammation. Elevated ESR and CRP. Rheumatoid factor and ANDRA negative. OT consult 5. S/p fall with L1 compression injury. Per neurosurgery conservative management with brace and physical therapy 6. Rash now appears to be due to pressure from patient laying on his back all day. 7. Leukocytosis. No clear etiology. Patient has been laying on his back and taking liquids. He potentially could be aspirating. Improved will monitor 8. VC paresis related to intubation. S/P ENT eval, expect slow recovery 9. thyroid nodule. US in 6 mos 10. ML nodule. CT in 6 mos 11. Atrial fibrillation currently rate-controlled. Ct Eliquis and CCB Diltiazem 12. HTN . Continue furosemide, Cardizem and clonidine increase her Monopril 13. Diabetes mellitus. A1c 7.8. Levemir 36 units units AM, and 25 units at bedtime, SSI with Accu-Cheks per protocol. Hypoglycemia secondary to decreased oral intake, improved. Patient counseled. Hypoglycemia protocol 14. Anemia of acute blood loss. Monitor H&H and transfuse for hemoglobin less than 7 15. DVT prophylaxis: SCDs and eliquis Discharge Planning: Pending SNF acceptance
[2018-10-29] MEDS: Ramipril 5 MG Capsule PO SCH (09:18)
[2018-10-29] MEDS: Azithromycin 250 MG Tablet PO SCH (09:18)
[2018-10-29] MEDS: Senna/Docusate Sodium 8.6/50 MG Tablet PO SCH ×2 (09:18→21:27)
[2018-10-29] MEDS: Furosemide 20 MG Tablet PO SCH ×2 (09:18→21:27)
[2018-10-29] MEDS: Gabapentin 300 MG Capsule PO SCH ×3 (09:18→18:36)
[2018-10-29] MEDS: Polysaccharide Iron Complex 150 MG Capsule PO SCH ×2 (09:18→21:27)
[2018-10-29] MEDS: Multivitamin/Minerals Therapeutic Tablet PO SCH (09:18)
[2018-10-29] MEDS: Insulin Detemir Inj 1,000 UNIT/10 ML Vial SQ SCH ×2 (09:19→21:27)
[2018-10-29] MEDS: Heparin Central Flush 100 UNIT/ML 5 ML Vial IV.FLUSH SCH (09:19)
[2018-10-29] MEDS: Sodium Chloride 0.9% 2 ML Flush BID IV.FLUSH SCH ×2 (09:21→21:30)
[2018-10-29] MEDS: Micafungin Inj 150 MG in Sodium Chlor 0.9% Inj 100 ML IV.SIG SCH (12:39)
[2018-10-29] MEDS: dilTIAZem CD 120 MG Capsule PO SCH (15:43)
[2018-10-30] MEDS: Baclofen 10 MG Tablet PO SCH ×3 (05:30→22:11)
[2018-10-30 07:41] LABS: Baso # (Auto) 0.1 th/mm3 (0.0-0.2); Baso % (Auto) 0.9 % (0.0-2.0); Eos # (Auto) 0.1 th/mm3 (0.0-0.4); Eos % (Auto) 1.4 % (0.0-4.0); Hemoglobin 7.8 gm/dL (13.0-17.0); Lymph # (Auto) 1.5 th/mm3 (1.0-4.8); Lymph % (Auto) 14.7 % (9.0-44.0); Mean Corpuscular HGB Conc 32.8 % (32.0-36.0); Mean Corpuscular Hemoglobin 25.1 pg (27.0-34.0); Mean Corpuscular Volume 76.6 fL (80.0-100.0); Mean Platelet Volume 6.6 fL (7.0-11.0); Mono # (Auto) 0.8 th/mm3 (0.0-0.9); Mono % (Auto) 8.2 % (0.0-8.0); Neut # (Auto) 7.4 th/mm3 (1.8-7.7); Neut % (Auto) 74.8 % (16.0-70.0); Platelet Count 434 th/mm3 (150-450); Red Blood Count 3.13 mil/mm3 (4.50-5.90); Red Cell Distribution Width 16.8 % (11.6-17.2); White Blood Count 9.9 th/mm3 (4.0-11.0)
[2018-10-30 08:00] LABS: Anion Gap 7 meq/L (5-15); Blood Urea Nitrogen 23 mg/dL (7-18); Calcium 8.7 mg/dL (8.5-10.1); Carbon Dioxide 24.9 meq/L (21.0-32.0); Chloride 105 meq/L (98-107); Glomerular Filtration Rate Greater Than 89 mL/min (>89); Glucose,Random 168 mg/dL (74-106); Magnesium 2.2 mg/dL (1.5-2.5); Potassium 4.1 meq/L (3.5-5.1); Sodium 137 meq/L (136-145)
[2018-10-30] MEDS: Insulin NovoLOG Aspart Correctional Sugar Inj SQ SCH ×4 (08:04→20:32)
[2018-10-30] MEDS: Insulin Detemir Inj 1,000 UNIT/10 ML Vial SQ SCH ×2 (08:05→20:31)
[2018-10-30] MEDS: Senna/Docusate Sodium 8.6/50 MG Tablet PO SCH ×2 (08:07→20:29)
[2018-10-30] MEDS: Multivitamin/Minerals Therapeutic Tablet PO SCH (08:07)
[2018-10-30] MEDS: Polysaccharide Iron Complex 150 MG Capsule PO SCH ×2 (08:07→20:30)
[2018-10-30] MEDS: Gabapentin 300 MG Capsule PO SCH ×3 (08:08→17:47)
[2018-10-30] MEDS: Azithromycin 250 MG Tablet PO SCH (08:08)
[2018-10-30] MEDS: Ramipril 5 MG Capsule PO SCH (08:09)
[2018-10-30] MEDS: Furosemide 20 MG Tablet PO SCH ×2 (08:09→20:29)
[2018-10-30] MEDS: Heparin Central Flush 100 UNIT/ML 5 ML Vial IV.FLUSH SCH (08:10)
[2018-10-30] MEDS: Sodium Chloride 0.9% 2 ML Flush BID IV.FLUSH SCH ×2 (08:18→20:30)
[2018-10-30] MEDS: Micafungin Inj 150 MG in Sodium Chlor 0.9% Inj 100 ML IV.SIG SCH (11:11)
--- NOTE | 2018-10-30 11:49 | P.PNIM ---
Subjective Interval history: in no acute distress. pain seems to be fairly controlled. but has some problem with moving his left knee. d/w the RN. Physical Exam Vital signs: Vital Signs 10/29/18 12:00 10/29/18 16:00 10/29/18 20:00 Temperature 98.3 F 97.9 F 99.3 F Pulse Rate 61 69 69 Respiratory Rate 18 18 14 Blood Pressure 98/55 L 126/65 112/57 L Pulse Oximetry 100 98 95 10/30/18 00:00 10/30/18 04:00 10/30/18 08:00 Temperature 98.8 F 98.3 F 98.1 F Pulse Rate 76 63 57 L Respiratory Rate 17 15 16 Blood Pressure 110/56 L 110/59 L 101/56 L Pulse Oximetry 98 99 95 10/30/18 08:33 Temperature Pulse Rate Respiratory Rate 18 Blood Pressure Pulse Oximetry Intake & Output 10/29/18 10/30/18 10/30/18 18:59 06:59 18:59 Intake Total 1600 / 1600 600 / 600 Output Total 400 / 400 300 / 300 Balance 1200 / 1200 300 / 300 Weight 91 kg Intake: IV 300 / 300 100 / 100 Mycamine Inj 150 MG In NS Inj 100 / 100 100 ML @ 100 mls/hr IV.SIG Q24H ROBBIE Rx#:[id number] Tygacil Inj 50 MG In NS Inj 100 200 / 200 100 / 100 ML @ 200 mls/hr IV.SIG Q12H ROBBIE Rx#:[id number] Oral 1300 / 1300 500 / 500 Output: Urine 400 / 400 300 / 300 Other: # Voids 5 # Bowel Movements 1 - Constitutional no acute distress - Routine Respiratory Exam Present: CTA bilaterally - Routine Cardiovascular Exam Present: RRR - Routine Abdominal Exam Present: soft - Routine Extremities Exam Comments: no pedal edema. - Routine Neurological Exam Present: alert, oriented X3 - Urinary Catheter Management Indwelling Urethral Catheter Cath placed during this visit: yes, but has since been removed by the nurse Reason for continuing: Decision to DC catheter Removal date: 10/05/18 Removal time: 09:30 Results - Labs CBC & Chem 7: 10/30/18 05:40 10/30/18 05:40 Laboratory Results - last 24 hr 10/29/18 10/29/18 10/30/18 17:23 21:26 05:40 WBC 9.9 RBC 3.13 L Hgb 7.8 L Hct 24.0 L MCV 76.6 L MCH 25.1 L MCHC 32.8 RDW 16.8 Plt Count 434 MPV 6.6 L Neut % (Auto) 74.8 H Lymph % (Auto) 14.7 [place] % (Auto) 8.2 H Eos % (Auto) 1.4 Baso % (Auto) 0.9 Neut # (Auto) 7.4 Lymph # (Auto) 1.5 [place] # (Auto) 0.8 Eos # (Auto) 0.1 Baso # (Auto) 0.1 WBC Differential . Differential Comment Auto diff final Sodium Potassium Chloride Carbon Dioxide Anion Gap BUN Creatinine Estimated GFR POC Glucose 137 H 137 H Random Glucose Calcium Magnesium 10/30/18 10/30/18 10/30/18 05:40 07:49 11:17 WBC RBC Hgb Hct MCV MCH MCHC RDW Plt Count MPV Neut % (Auto) Lymph % (Auto) [place] % (Auto) Eos % (Auto) Baso % (Auto) Neut # (Auto) Lymph # (Auto) [place] # (Auto) Eos # (Auto) Baso # (Auto) WBC Differential Differential Comment Sodium 137 Potassium 4.1 Chloride 105 Carbon Dioxide 24.9 Anion Gap 7 BUN 23 H Creatinine 0.57 L Estimated GFR Greater than 89 POC Glucose 158 H 133 H Random Glucose 168 H Calcium 8.7 Magnesium 2.2 Assessment and Plan - Assessment (1) Abscess of hand, left Code(s): L02.512 - Cutaneous abscess of left hand Status: Acute (2) Hoarse voice quality Code(s): R49.0 - Dysphonia Status: Acute - Plan 1. Catheter related infection from PICC line. 2. Thrombus of the right upper extremity related to PICC line. 3. 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 Continue Micafungin for discitis and osteomyelitis. Anticipate 12 weeks of antifungal for discitis / osteomyelitis due to Portia stop date 01/04/2018(12) weeks. Continue Tigecycline until 01/21/18. (the sedimentation rate has not showed improvement.) follow LFTs, sed rate weekly. 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 Monitor white blood cell count which is improving. Repeat MRI of the lumbar spine showed improved abscess and discitis per neurosurgery who recommended physical therapy to help with left lower extremity weakness. 4. 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 Switch to azithromycin by GIDEON velazquez 01/21/19 Followed by hand surgeon. Reportedly tendon was exposed. Suspected early or mild scapholunate associated collapse and dorsal intercalated segmental instability right wrist. Follow-up wrist MRI with possible infection versus inflammation per hand surgery favor inflammation. Elevated ESR and CRP. Rheumatoid factor and ANDRA negative. OT consult 5. S/p fall with L1 compression injury. Per neurosurgery conservative management with brace and physical therapy 6. Rash now appears to be due to pressure from patient laying on his back all day. 7. Leukocytosis. No clear etiology. Patient has been laying on his back and taking liquids. He potentially could be aspirating. Improved will monitor 8. VC paresis related to intubation. S/P ENT eval, expect slow recovery 9. thyroid nodule. US in 6 mos 10. ML nodule. CT in 6 mos 11. Atrial fibrillation currently rate-controlled. Ct Eliquis and CCB Diltiazem 12. HTN . Continue furosemide, Cardizem and clonidine increase her Monopril 13. Diabetes mellitus. A1c 7.8. Levemir 36 units units AM, and 25 units at bedtime, SSI with Accu-Cheks per protocol. Hypoglycemia secondary to decreased oral intake, improved. Patient counseled. Hypoglycemia protocol 14. Anemia of acute blood loss. Monitor H&H and transfuse for hemoglobin less than 7 15. DVT prophylaxis: SCDs and eliquis Discharge Planning: dc planning to SNF.
[2018-10-30] MEDS: dilTIAZem CD 120 MG Capsule PO SCH (15:46)
[2018-10-31] MEDS: Baclofen 10 MG Tablet PO SCH ×3 (06:08→21:42)
[2018-10-31] MEDS: Heparin Central Flush 100 UNIT/ML 5 ML Vial IV.FLUSH SCH (08:49)
[2018-10-31] MEDS: Senna/Docusate Sodium 8.6/50 MG Tablet PO SCH ×2 (08:49→21:42)
[2018-10-31] MEDS: Azithromycin 250 MG Tablet PO SCH (08:49)
[2018-10-31] MEDS: Polysaccharide Iron Complex 150 MG Capsule PO SCH ×2 (08:50→21:47)
[2018-10-31] MEDS: Ramipril 5 MG Capsule PO SCH (08:50)
[2018-10-31] MEDS: Gabapentin 300 MG Capsule PO SCH ×3 (08:50→18:02)
[2018-10-31] MEDS: Furosemide 20 MG Tablet PO SCH ×2 (08:50→21:42)
[2018-10-31] MEDS: Multivitamin/Minerals Therapeutic Tablet PO SCH (08:50)
[2018-10-31] MEDS: Insulin Detemir Inj 1,000 UNIT/10 ML Vial SQ SCH ×2 (08:51→21:43)
[2018-10-31] MEDS: Insulin NovoLOG Aspart Correctional Sugar Inj SQ SCH ×4 (08:51→21:43)
[2018-10-31] MEDS: Sodium Chloride 0.9% 2 ML Flush BID IV.FLUSH SCH ×2 (08:52→21:43)
--- NOTE | 2018-10-31 11:30 | P.PNIM ---
Subjective Interval history: in no acute distress. has some pain to the right shoulder. no fever. Physical Exam Vital signs: Vital Signs 10/30/18 12:00 10/30/18 12:18 10/30/18 14:55 Temperature 98.2 F Pulse Rate 61 Respiratory Rate 17 18 18 Blood Pressure 109/56 L Pulse Oximetry 100 10/30/18 16:00 10/30/18 16:27 10/30/18 20:00 Temperature 99.7 F H 98.7 F Pulse Rate 71 73 Respiratory Rate 17 18 18 Blood Pressure 126/65 164/70 H Pulse Oximetry 100 99 10/30/18 21:08 10/31/18 00:00 10/31/18 04:00 Temperature 98.5 F Pulse Rate 70 Respiratory Rate 20 18 22 Blood Pressure 125/58 L Pulse Oximetry 99 10/31/18 08:00 Temperature 98.4 F Pulse Rate 73 Respiratory Rate 18 Blood Pressure 122/58 L Pulse Oximetry 99 Intake & Output 10/30/18 10/31/18 10/31/18 18:59 06:59 18:59 Intake Total 1160 / 1160 340 / 340 Output Total 900 / 900 1000 / 1000 Balance 260 / 260 -660 / -660 Weight 78.6 kg Intake: IV 200 / 200 100 / 100 Mycamine Inj 150 MG In NS Inj 100 / 100 100 ML @ 100 mls/hr IV.SIG Q24H ROBBIE Rx#:[id number] Tygacil Inj 50 MG In NS Inj 100 100 / 100 100 / 100 ML @ 200 mls/hr IV.SIG Q12H ROBBIE Rx#:[id number] Oral 960 / 960 240 / 240 Output: Urine 900 / 900 1000 / 1000 Other: Date of Last Bowel Movement 10/30/18 # Bowel Movements 1 - Constitutional no acute distress - Routine Respiratory Exam Present: CTA bilaterally - Routine Cardiovascular Exam Present: RRR - Routine Abdominal Exam Present: soft - Routine Extremities Exam Comments: no pedal edema. - Routine Neurological Exam Present: alert, oriented X3 - Urinary Catheter Management Indwelling Urethral Catheter Cath placed during this visit: yes, but has since been removed by the nurse Reason for continuing: Decision to DC catheter Removal date: 10/05/18 Removal time: 09:30 Results - Labs CBC & Chem 7: 10/30/18 05:40 10/30/18 05:40 Laboratory Results - last 24 hr 10/30/18 10/30/18 10/30/18 11:17 16:30 20:32 POC Glucose 133 H 250 H 129 H 10/31/18 07:42 POC Glucose 180 H Assessment and Plan - Assessment (1) Abscess of hand, left Code(s): L02.512 - Cutaneous abscess of left hand Status: Acute (2) Hoarse voice quality Code(s): R49.0 - Dysphonia Status: Acute - Plan 1. Catheter related infection from PICC line. 2. Thrombus of the right upper extremity related to PICC line. 3. 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 Continue Micafungin for discitis and osteomyelitis. Anticipate 12 weeks of antifungal for discitis / osteomyelitis due to Portia stop date 01/04/2018(12) weeks. Continue Tigecycline until 01/21/18. follow LFTs, sed rate weekly. 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 Monitor white blood cell count which is improving. Repeat MRI of the lumbar spine showed improved abscess and discitis per neurosurgery who recommended physical therapy to help with left lower extremity weakness. 4. 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 Switch to azithromycin by GIDEON velazquez 01/21/19 Followed by hand surgeon. Reportedly tendon was exposed. Suspected early or mild scapholunate associated collapse and dorsal intercalated segmental instability right wrist. Follow-up wrist MRI with possible infection versus inflammation per hand surgery favor inflammation. Elevated ESR and CRP. Rheumatoid factor and ANDRA negative. OT consult 5. S/p fall with L1 compression injury. Per neurosurgery conservative management with brace and physical therapy 6. Rash now appears to be due to pressure from patient laying on his back all day. 7. Leukocytosis. No clear etiology. Patient has been laying on his back and taking liquids. He potentially could be aspirating. Improved will monitor 8. VC paresis related to intubation. S/P ENT eval, expect slow recovery 9. thyroid nodule. US in 6 mos 10. ML nodule. CT in 6 mos 11. Atrial fibrillation currently rate-controlled. Ct Eliquis and CCB Diltiazem 12. HTN . Continue furosemide, Cardizem and clonidine increase her Monopril 13. Diabetes mellitus. A1c 7.8. Levemir 36 units units AM, and 25 units at bedtime, SSI with Accu-Cheks per protocol. Hypoglycemia secondary to decreased oral intake, improved. Patient counseled. Hypoglycemia protocol 14. Anemia of acute blood loss. Monitor H&H and transfuse for hemoglobin less than 7 15. right shoulder pain; will check XR 16. DVT prophylaxis: SCDs and eliquis Discharge Planning: dc planning to SNF.
[2018-10-31] MEDS: Micafungin Inj 150 MG in Sodium Chlor 0.9% Inj 100 ML IV.SIG SCH (11:55)
[2018-10-31] MEDS: dilTIAZem CD 120 MG Capsule PO SCH (15:59)
--- NOTE | 2018-10-31 17:44 | XR ---
EXAM DATE: 10/31/2018 5:39 PM EST AGE/SEX: 58 years / Male INDICATIONS: Right shoulder pain no known injury. CLINICAL DATA: This is the patient's initial encounter. Patient reports that signs and symptoms have been present for 2 weeks and indicates a pain score of 7/10. MEDICAL/SURGICAL HISTORY: None. None. COMPARISON: No prior exams available for comparison. FINDINGS: An acute fracture is not seen. The humeral head does appear high riding. The glenohumeral and acromio clavicular joints are aligned. There is hypertrophic change seen at the lateral aspect of the acromio n. There also appears to be faint calcification seen adjacent to the greater tubercle. CONCLUSION: Faint calcification adjacent to the greater tubercle likely related to calcific tendinitis/hydroxyapa tite deposition. High right humeral head which can be seen with rotator cuff abnormality. Chronic hypertrophic change seen lateral to the acromion. Electronically signed by: Collin Harding MD 10/31/2018 5:42 PM EST
[2018-11-01] MEDS: Baclofen 10 MG Tablet PO SCH ×3 (05:47→23:52)
[2018-11-01] MEDS: Gabapentin 300 MG Capsule PO SCH ×3 (09:14→18:33)
[2018-11-01] MEDS: Heparin Central Flush 100 UNIT/ML 5 ML Vial IV.FLUSH SCH (09:14)
[2018-11-01] MEDS: Furosemide 20 MG Tablet PO SCH ×2 (09:14→20:44)
[2018-11-01] MEDS: Ramipril 5 MG Capsule PO SCH (09:15)
[2018-11-01] MEDS: Azithromycin 250 MG Tablet PO SCH (09:15)
[2018-11-01] MEDS: Multivitamin/Minerals Therapeutic Tablet PO SCH (09:15)
[2018-11-01] MEDS: Senna/Docusate Sodium 8.6/50 MG Tablet PO SCH ×2 (09:15→20:44)
[2018-11-01] MEDS: Sodium Chloride 0.9% 2 ML Flush BID IV.FLUSH SCH ×2 (09:16→20:45)
[2018-11-01] MEDS: Insulin NovoLOG Aspart Correctional Sugar Inj SQ SCH ×4 (09:16→20:45)
[2018-11-01] MEDS: Insulin Detemir Inj 1,000 UNIT/10 ML Vial SQ SCH ×2 (09:26→20:44)
[2018-11-01] MEDS: Polysaccharide Iron Complex 150 MG Capsule PO SCH ×2 (09:26→20:44)
--- NOTE | 2018-11-01 10:18 | P.PNIM ---
Subjective Interval history: in no acute distress. however still complaining of pain/ decreased ROM right shoulder. Physical Exam Vital signs: Vital Signs 10/31/18 12:00 10/31/18 16:00 10/31/18 20:00 Temperature 97.5 F L 98.2 F 99 F Pulse Rate 59 L 73 78 Respiratory Rate 18 18 18 Blood Pressure 134/67 111/56 L 118/59 L Pulse Oximetry 100 100 99 11/01/18 00:00 11/01/18 04:00 11/01/18 08:00 Temperature 97.6 F 97.8 F 97.9 F Pulse Rate 76 76 75 Respiratory Rate 18 18 18 Blood Pressure 138/65 118/55 L 113/71 Pulse Oximetry 100 99 99 Intake & Output 10/31/18 11/01/18 11/01/18 18:59 06:59 18:59 Intake Total 680 / 680 100 / 100 Output Total 250 / 250 1600 / 1600 Balance 430 / 430 -1500 / -1500 Weight 84.6 kg Intake: IV 200 / 200 100 / 100 Mycamine Inj 150 MG In NS Inj 100 / 100 100 ML @ 100 mls/hr IV.SIG Q24H ROBBIE Rx#:[id number] Tygacil Inj 50 MG In NS Inj 100 100 / 100 100 / 100 ML @ 200 mls/hr IV.SIG Q12H ROBBIE Rx#:[id number] Oral 480 / 480 Output: Urine 250 / 250 1600 / 1600 Other: Date of Last Bowel Movement 11/01/18 11/01/18 - Constitutional no acute distress - Routine Respiratory Exam Present: CTA bilaterally - Routine Cardiovascular Exam Present: RRR - Routine Abdominal Exam Present: soft - Routine Extremities Exam Comments: no pedal edema/ ROM decreased right shoulder. - Routine Neurological Exam Present: alert, oriented X3 - Urinary Catheter Management Indwelling Urethral Catheter Cath placed during this visit: yes, but has since been removed by the nurse Reason for continuing: Decision to DC catheter Removal date: 10/05/18 Removal time: 09:30 Results - Labs CBC & Chem 7: 10/30/18 05:40 10/30/18 05:40 Laboratory Results - last 24 hr 10/31/18 10/31/18 10/31/18 11:54 16:29 19:51 POC Glucose 172 H 110 106 11/01/18 09:12 POC Glucose 134 H - Imaging Impressions Shoulder X-Ray 10/31/18 00:00 CONCLUSION: Faint calcification adjacent to the greater tubercle likely related to calcific tendinitis/hydroxyapatite deposition. High right humeral head which can be seen with rotator cuff abnormality. Chronic hypertrophic change seen lateral to the acromion. Assessment and Plan - Assessment (1) Abscess of hand, left Code(s): L02.512 - Cutaneous abscess of left hand Status: Acute (2) Hoarse voice quality Code(s): R49.0 - Dysphonia Status: Acute - Plan 1. Catheter related infection from PICC line. 2. Thrombus of the right upper extremity related to PICC line. 3. 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 Continue Micafungin for discitis and osteomyelitis. Anticipate 12 weeks of antifungal for discitis / osteomyelitis due to Portia stop date 01/04/2018(12) weeks. Continue Tigecycline until 01/21/18. follow LFTs, sed rate weekly. 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 Monitor white blood cell count which is improving. Repeat MRI of the lumbar spine showed improved abscess and discitis per neurosurgery who recommended physical therapy to help with left lower extremity weakness. 4. 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 Switch to azithromycin by GIDEON velazquez 01/21/19 Followed by hand surgeon. Reportedly tendon was exposed. Suspected early or mild scapholunate associated collapse and dorsal intercalated segmental instability right wrist. Follow-up wrist MRI with possible infection versus inflammation per hand surgery favor inflammation. Elevated ESR and CRP. Rheumatoid factor and ANDRA negative. OT consult 5. S/p fall with L1 compression injury. Per neurosurgery conservative management with brace and physical therapy 6. Rash now appears to be due to pressure from patient laying on his back all day. 7. VC paresis related to intubation. S/P ENT eval, expect slow recovery 8. thyroid nodule. US in 6 mos 9. ML nodule. CT in 6 mos 10. Atrial fibrillation currently rate-controlled. Ct Eliquis and CCB Diltiazem 11. HTN . Continue furosemide, Cardizem and clonidine increase her Monopril 12. Diabetes mellitus. A1c 7.8. Levemir 36 units units AM, and 25 units at bedtime, SSI with Accu-Cheks per protocol. Hypoglycemia protocol 13. Anemia of acute blood loss. Monitor H&H and transfuse for hemoglobin less than 7 14. right shoulder pain- XR was reviewed- will check MRI right shoulder; will consider ortho evaluation pending the result. 15. DVT prophylaxis: SCDs and eliquis Discharge Planning: dc planning to SNF.
[2018-11-01] MEDS: Micafungin Inj 150 MG in Sodium Chlor 0.9% Inj 100 ML IV.SIG SCH (10:32)
[2018-11-01] MEDS ORDERED: Gadobutrol PF 10 MMOL/10 ML Vial (for RAD) IV.SIG ONE (12:58)
--- NOTE | 2018-11-01 13:26 | MR ---
EXAM DATE: 11/01/2018 12:50 PM EST AGE/SEX: 58 years / Male INDICATIONS: . Right rotator cuff tear. Pain. CLINICAL DATA: This is the patient's subsequent encounter. Patient reports that signs and symptoms h ave been present for 1 month and indicates a pain score of 3/10. MEDICAL/SURGICAL HISTORY: . Extensive discitis. Fusion, lumbar. achilles tendon surgery COMPARISON: [facility] – [place] SHOULDER COMPLETE RIGHT, 10/31/2018. . TECHNIQUE: Multiplanar, multisequence MRI examination was performed without and with 9 ml Gadavist (gadobutrol) contrast as a single exam dose. FINDINGS: There is a large geographical area of increased edema in the proximal right humerus that has progress ed substantially in the interval. This is associated with a small joint effusion. Significant edema i s present at the very distal tenderness portion of the supraspinatus tendon. Edema is seen in the sub stance of these wrist pains tendon as it crosses over the acromium. Extensive acromioclavicular joint arthritic changes are evident. The glenoid is intact. There is abnormal soft tissue in the deltoid that is directly contiguous with the joint. CONCLUSION: 1. Markedly abnormal shoulder joint including humerus and deltoid muscle. Considerations would inclu de both an inflammatory and neoplastic process. Electronically signed by: Lex Solis MD 11/01/2018 1:24 PM EST
[2018-11-01] MEDS: dilTIAZem CD 120 MG Capsule PO SCH (16:32)
--- NOTE | 2018-11-01 17:29 | P.PN ---
Subjective Interval history: complains of right wrist pain complaint with dressing left hand no fever Physical Exam Vital signs: Vital Signs 10/31/18 20:00 11/01/18 00:00 11/01/18 04:00 Temperature 99 F 97.6 F 97.8 F Pulse Rate 78 76 76 Respiratory Rate 18 18 18 Blood Pressure 118/59 L 138/65 118/55 L Pulse Oximetry 99 100 99 11/01/18 08:00 11/01/18 12:00 11/01/18 16:00 Temperature 97.9 F 97.9 F 97.9 F Pulse Rate 75 65 82 Respiratory Rate 18 18 Blood Pressure 113/71 117/56 L 121/62 Pulse Oximetry 99 100 100 Intake & Output 10/31/18 11/01/18 11/01/18 18:59 06:59 18:59 Intake Total 680 / 680 100 / 100 100 / 100 Output Total 250 / 250 1600 / 1600 Balance 430 / 430 -1500 / -1500 100 / 100 Weight 84.6 kg Intake: IV 200 / 200 100 / 100 100 / 100 Mycamine Inj 150 MG In NS Inj 100 / 100 100 / 100 100 ML @ 100 mls/hr IV.SIG Q24H ROBBIE Rx#:[id number] Tygacil Inj 50 MG In NS Inj 100 100 / 100 100 / 100 ML @ 200 mls/hr IV.SIG Q12H ROBBIE Rx#:[id number] Oral 480 / 480 Output: Urine 250 / 250 1600 / 1600 Other: Date of Last Bowel Movement 11/01/18 11/01/18 Narrative: left hand: dressing in place exam after removal of dressing, graft in place. no exposed tendon no drainage or surrounding erythema flexion deformity of the ring finger at the PIP joint with stiffness intact distal circulation right wrist: localized swelling over the dorsal aspect of the wrist. non tender and no signs of inflammation over the mass like lesion swelling and erythema over the ulnar aspect of the wrist. better compared to previous exam tenderness noted over the ulnar aspect of the wrist pronation of the wrist is painful wrist flexion and extension is painless MRI: synovitis and effusion DRUJ with changes head of ulna localized collection dorsal aspect of the wrist - Urinary Catheter Management Indwelling Urethral Catheter Cath placed during this visit: yes, but has since been removed by the nurse Reason for continuing: Decision to DC catheter Removal date: 10/05/18 Removal time: 09:30 Results - Labs CBC & Chem 7: 10/30/18 05:40 10/30/18 05:40 Laboratory Results - last 24 hr 10/31/18 10/31/18 11/01/18 16:29 19:51 09:12 POC Glucose 110 106 134 H 11/01/18 13:12 POC Glucose 121 H Microbiology 10/04/18 16:56 Tissue - Other Fungal Smear - Final No fungal elements seen 10/04/18 16:56 Tissue - Other Fungal Culture - Final No growth in 4 weeks 10/04/18 16:56 Tissue - Other Acid Fast Bacilli Smear - Final No acid fast bacilli seen 10/04/18 16:56 Tissue - Other Mycobacterial Culture - Preliminary No growth in 4 weeks 10/04/18 16:05 Wound - Other Fungal Smear - Final No fungal elements seen 10/04/18 16:05 Wound - Other Fungal Culture - Final No growth in 4 weeks 10/04/18 16:05 Wound - Other Acid Fast Bacilli Smear - Final No acid fast bacilli seen 10/04/18 16:05 Wound - Other Mycobacterial Culture - Preliminary No growth in 4 weeks 10/04/18 16:05 Wound - Other Fungal Smear - Final No fungal elements seen 10/04/18 16:05 Wound - Other Fungal Culture - Final No growth in 4 weeks 10/04/18 16:05 Wound - Other Acid Fast Bacilli Smear - Final No acid fast bacilli seen 10/04/18 16:05 Wound - Other Mycobacterial Culture - Preliminary No growth in 4 weeks - Imaging Impressions Shoulder X-Ray 10/31/18 00:00 CONCLUSION: Faint calcification adjacent to the greater tubercle likely related to calcific tendinitis/hydroxyapatite deposition. High right humeral head which can be seen with rotator cuff abnormality. Chronic hypertrophic change seen lateral to the acromion. Shoulder MRI 11/01/18 00:00 CONCLUSION: 1. Markedly abnormal shoulder joint including humerus and deltoid muscle. Considerations would include both an inflammatory and neoplastic process. Assessment and Plan - Assessment (1) Suppurative tenosynovitis of flexor tendon of left hand Code(s): M65.142 - Other infective (teno)synovitis, left hand Status: Chronic (2) Acute pain of right wrist Code(s): M25.531 - Pain in right wrist Status: Acute - Plan 58 year old male s/p closure of wound dehiscence left hand/ring finger finger with right wrist pain likely ECU tenosynovitis Plan: left hand: surrounding skin is cleaned with alcohol wipes adaptic and dressing applied keep the dressing on. right wrist: mass over the dorsal aspect of the right wrist unlikely abscess, no signs of inflammation inflammation of the DRUJ: wrist brace as tolerated and antiinflammatory medications hand surgery will follow
[2018-11-02] MEDS: Baclofen 10 MG Tablet PO SCH ×3 (05:33→22:36)
[2018-11-02] MEDS: Polysaccharide Iron Complex 150 MG Capsule PO SCH ×2 (09:48→20:14)
[2018-11-02] MEDS: Ramipril 5 MG Capsule PO SCH (09:48)
[2018-11-02] MEDS: Senna/Docusate Sodium 8.6/50 MG Tablet PO SCH ×2 (09:48→20:14)
[2018-11-02] MEDS: Azithromycin 250 MG Tablet PO SCH (09:48)
[2018-11-02] MEDS: Furosemide 20 MG Tablet PO SCH ×2 (09:48→20:14)
[2018-11-02] MEDS: Gabapentin 300 MG Capsule PO SCH ×3 (09:48→17:31)
[2018-11-02] MEDS: Multivitamin/Minerals Therapeutic Tablet PO SCH (09:48)
[2018-11-02] MEDS: Insulin Detemir Inj 1,000 UNIT/10 ML Vial SQ SCH ×2 (09:49→20:15)
[2018-11-02] MEDS: Insulin NovoLOG Aspart Correctional Sugar Inj SQ SCH ×4 (09:49→20:15)
[2018-11-02] MEDS: Heparin Central Flush 100 UNIT/ML 5 ML Vial IV.FLUSH SCH (09:49)
[2018-11-02] MEDS: Sodium Chloride 0.9% 2 ML Flush BID IV.FLUSH SCH ×2 (09:50→20:15)
--- NOTE | 2018-11-02 11:18 | P.PNIM ---
Subjective Interval history: in no acute distress. overall looks comfortable although still with decreased ROM right shoulder. d/w the RN and no acute issues over night. Physical Exam Vital signs: Vital Signs 11/01/18 12:00 11/01/18 16:00 11/01/18 20:00 Temperature 97.9 F 97.9 F 97.6 F Pulse Rate 65 82 79 Respiratory Rate 18 18 18 Blood Pressure 117/56 L 121/62 117/63 Pulse Oximetry 100 100 100 11/02/18 00:00 11/02/18 08:00 Temperature 97.8 F 98.0 F Pulse Rate 81 79 Respiratory Rate 18 20 Blood Pressure 144/74 H 108/61 Pulse Oximetry 100 99 Intake & Output 11/01/18 11/02/18 11/02/18 18:59 06:59 18:59 Intake Total 1300 / 1300 680 / 680 Output Total 1000 / 1000 900 / 900 Balance 300 / 300 -220 / -220 Weight 82.7 kg Intake: IV 100 / 100 200 / 200 Mycamine Inj 150 MG In NS Inj 100 / 100 100 ML @ 100 mls/hr IV.SIG Q24H ROBBIE Rx#:[id number] Tygacil Inj 50 MG In NS Inj 100 200 / 200 ML @ 200 mls/hr IV.SIG Q12H ROBBIE Rx#:[id number] Oral 1200 / 1200 480 / 480 Output: Urine 1000 / 1000 900 / 900 Other: Date of Last Bowel Movement 11/01/18 # Bowel Movements 0 - Constitutional no acute distress - Routine Respiratory Exam Present: CTA bilaterally - Routine Cardiovascular Exam Present: RRR - Routine Abdominal Exam Present: soft - Routine Extremities Exam Comments: no pedal edema. - Routine Neurological Exam Present: alert, oriented X3 - Urinary Catheter Management Indwelling Urethral Catheter Cath placed during this visit: yes, but has since been removed by the nurse Reason for continuing: Decision to DC catheter Removal date: 10/05/18 Removal time: 09:30 Results - Labs CBC & Chem 7: 10/30/18 05:40 10/30/18 05:40 Laboratory Results - last 24 hr 11/01/18 11/01/18 11/01/18 13:12 17:40 19:50 POC Glucose 121 H 79 207 H 11/02/18 08:13 POC Glucose 205 H Microbiology 10/04/18 16:56 Tissue - Other Fungal Smear - Final No fungal elements seen 10/04/18 16:56 Tissue - Other Fungal Culture - Final No growth in 4 weeks 10/04/18 16:56 Tissue - Other Acid Fast Bacilli Smear - Final No acid fast bacilli seen 10/04/18 16:56 Tissue - Other Mycobacterial Culture - Preliminary No growth in 4 weeks 10/04/18 16:05 Wound - Other Fungal Smear - Final No fungal elements seen 10/04/18 16:05 Wound - Other Fungal Culture - Final No growth in 4 weeks 10/04/18 16:05 Wound - Other Acid Fast Bacilli Smear - Final No acid fast bacilli seen 10/04/18 16:05 Wound - Other Mycobacterial Culture - Preliminary No growth in 4 weeks 10/04/18 16:05 Wound - Other Fungal Smear - Final No fungal elements seen 10/04/18 16:05 Wound - Other Fungal Culture - Final No growth in 4 weeks 10/04/18 16:05 Wound - Other Acid Fast Bacilli Smear - Final No acid fast bacilli seen 10/04/18 16:05 Wound - Other Mycobacterial Culture - Preliminary No growth in 4 weeks - Imaging Impressions Shoulder MRI 11/01/18 00:00 CONCLUSION: 1. Markedly abnormal shoulder joint including humerus and deltoid muscle. Considerations would include both an inflammatory and neoplastic process. Assessment and Plan - Assessment (1) Abscess of hand, left Code(s): L02.512 - Cutaneous abscess of left hand Status: Acute (2) Hoarse voice quality Code(s): R49.0 - Dysphonia Status: Acute - Plan 1. Catheter related infection from PICC line. 2. Thrombus of the right upper extremity related to PICC line. 3. 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 Continue Micafungin for discitis and osteomyelitis. Anticipate 12 weeks of antifungal for discitis / osteomyelitis due to Portia stop date 01/04/2018(12) weeks. Continue Tigecycline until 01/21/18. follow LFTs, sed rate weekly. 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 Monitor white blood cell count which is improving. Repeat MRI of the lumbar spine showed improved abscess and discitis per neurosurgery who recommended physical therapy to help with left lower extremity weakness. 4. 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 Switch to azithromycin by GIDEON velazquez 01/21/19 Followed by hand surgeon. Reportedly tendon was exposed. Suspected early or mild scapholunate associated collapse and dorsal intercalated segmental instability right wrist. Follow-up wrist MRI with possible infection versus inflammation per hand surgery favor inflammation. Elevated ESR and CRP. Rheumatoid factor and ANDRA negative. OT consult 5. S/p fall with L1 compression injury. Per neurosurgery conservative management with brace and physical therapy 6. Rash now appears to be due to pressure from patient laying on his back all day. 7. VC paresis related to intubation. S/P ENT eval, expect slow recovery 8. thyroid nodule. US in 6 mos 9. ML nod[address]. CT in 6 mos 10. Atrial fibrillation currently rate-controlled. Ct Eliquis and CCB Diltiazem 11. HTN . Continue furosemide, Cardizem and clonidine increase her Monopril 12. Diabetes mellitus. A1c 7.8. Levemir 36 units units AM, and 25 units at bedtime, SSI with Accu-Cheks per protocol. Hypoglycemia protocol 13. Anemia of acute blood loss. Monitor H&H and transfuse for hemoglobin less than 7 14. right shoulder pain- MRI was reviewed- ortho consulted; awaiting recommendations. 15. DVT prophylaxis: SCDs and eliquis Discharge Planning: home when stable-awaiting ortho evaluation.
[2018-11-02] MEDS: Micafungin Inj 150 MG in Sodium Chlor 0.9% Inj 100 ML IV.SIG SCH (11:55)
[2018-11-02] MEDS: dilTIAZem CD 120 MG Capsule PO SCH (16:38)
--- NOTE | 2018-11-02 16:58 | P.CONOP ---
[facility] Orthopedics Consult Note - [facility] Consult date: 11/01/18 Requesting physician: Mihai Rossi Consult reason: joint pain (Right shoulder pain) Chief complaint: superficial thrombus, Osteomyelitis, Diskitis Narrative: Patient is a 58-year-old male with multiple hospitalizations for infection. His past medical history includes: hypertension, hyperlipidemia, GERD , Atrial Fibrillation, DM, and L4-5 diskitis. Patient is a poor historian and states he has been dealing with infection for a long period of time. He states he has been experiencing right shoulder pain with decrease ROM. He denies any injury or trauma. His symptoms have progressively continue to worsen and feels debilitated by this. Orthopedic consultation was obtained. [facility] - History History Provided By: Patient, Medical Record - Medical History Medical History: Medical History (Last Reviewed 11/01/18 @ 12:45 by Naz Moody) MDRO (multiple drug resistant organisms) resistance Onset Date: ~10/04/18 Amputated toe GERD (gastroesophageal reflux disease) Hyperlipidemia Afib Back pain Diabetes Hypertension Osteomyelitis - Surgical History Surgical History: Surgical History (Last Reviewed 11/01/18 @ 12:45 by Naz Moody) H/O foot surgery - Family History Family History: Family History (Last Reviewed 11/01/18 @ 12:45 by Naz Moody) Other Coronary artery disease - Tobacco History Second Hand Smoke Exposure: No Smoking Status: Never smoker - Alcohol History How Often Do You Have a Drink Containing Alcohol: Never - Substance Use History Substance History: No History of Abuse - Travel History Recent Travel in the [place] Within the Last 8 Weeks: No Recent Travel Out of the Country Within the Last 8 Weeks: No - Immunization History Tetanus Immunization: <5 Years Hx Influenza Vaccine This Season: No Medications and Allergies Active Medications: Active Medications Acetaminophen (Tylenol) 650 mg PO Q4H PRN PRN Reason: FEVER > 100.4 F Al Hydroxide/Mg Hydroxide (Milk Of Magnpilar Liq) 30 ml PO Q12H PRN PRN Reason: Mild Constipation Last Admin: 10/29/18 15:43 Dose: 30 ml Apixaban (Eliquis) 5 mg PO BID [facility] Last Admin: 11/02/18 09:48 Dose: 5 mg Azithromycin (Zithromax) 500 mg PO DAILY [facility] Last Admin: 11/02/18 09:48 Dose: 500 mg Baclofen (Lioresal) 10 mg PO Q8HR [facility] Last Admin: 11/02/18 13:03 Dose: 10 mg Bisacodyl (Dulcolax Supp) 10 mg RECTAL DAILY PRN PRN Reason: SEVERE CONSITIPATION Chlorhexidine Gluconate (Chlorhexidine 2% Cloth) 3 pack TOPICAL 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 CAR 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 [facility] Clonidine HCl (Catapres) 0.1 mg PO Q8HR [facility] Last Admin: 11/02/18 13:03 Dose: Not Given Cyclobenzaprine HCl (Flexeril) 10 mg PO Q8H PRN PRN Reason: MUSCLE SPASM Last Admin: 10/29/18 14:15 Dose: 10 mg Dextrose (D50w Vial) 50 ml IV.PUSH UNSCH PRN PRN Reason: PER HYPOGLYCEMIA PROTOCOL Diltiazem HCl (Cardizem Cd 24hr) 120 mg PO Q24H [facility] Last Admin: 11/01/18 16:32 Dose: Not Given Furosemide (Lasix) 20 mg PO BID [facility] Last Admin: 11/02/18 09:48 Dose: 20 mg Gabapentin (Neurontin) 300 mg PO TID [facility] Last Admin: 11/02/18 13:03 Dose: 300 mg Glucagon (Glucagon Inj) 1 mg OTHER PRN PRN PRN Reason: for Hypoglycemia Protocol Heparin Sodium (Porcine) (Heparin Central Flush) 0 unit IV.FLUSH PRN PRN PRN Reason: Flush PICC Line Last Admin: 10/29/18 06:36 Dose: 200 unit Heparin Sodium (Porcine) (Heparin Central Flush) 0 unit IV.FLUSH DAILY [facility] Last Admin: 11/02/18 09:49 Dose: 200 unit Hydrocortisone Acetate (Hydrocortisone 1% Cream) 1 applicatio TOPICAL TID [facility] Last Admin: 11/02/18 13:02 Dose: 1 applicatio Hydromorphone HCl (Dilaudid) 2 mg PO Q6H PRN PRN Reason: breakthrough pain Last Admin: 11/02/18 03:04 Dose: 2 mg Micafungin Sodium 150 mg/ (Sodium Chloride) 100 mls @ 100 mls/hr IV.SIG Q24H [facility] Last Infusion: 11/02/18 13:11 Dose: Infused Tigecycline 50 mg/ Sodium (Chloride) 100 mls @ 200 mls/hr IV.SIG Q12H [facility] Last Infusion: 11/02/18 06:31 Dose: Infused Insulin Aspart (Novolog Insulin Correctional Sugar Inj) 0 unit SQ ACHS [facility]; Protocol Last Admin: 11/02/18 13:02 Dose: 4 unit Insulin Detemir (Levemir Inj) 25 unit SQ [facility] Last Admin: 11/01/18 20:44 Dose: 25 unit Insulin Detemir (Levemir Inj) 36 unit SQ DAILY [facility] Last Admin: 11/02/18 09:49 Dose: 36 unit Lactulose (Lactulose Liq) 30 ml PO DAILY PRN PRN Reason: SEVERE CONSITIPATION Multivitamins/Minerals (Theragran-M) 1 tab PO DAILY [facility] Last Admin: 11/02/18 09:48 Dose: 1 tab Naloxone HCl (Narcan Inj) 0.4 mg IV.PUSH PRN PRN PRN Reason: SEE LABEL COMMENTS Naloxone HCl (Narcan Inj) 0.4 mg IV.PUSH UNSCH PRN PRN Reason: SEE LABEL COMMENTS Ondansetron HCl (Zofran Inj) 4 mg IV.PUSH Q6H PRN PRN Reason: NAUSEA OR VOMITING Last Admin: 10/01/18 02:56 Dose: 4 mg Oxycodone HCl (Roxicodone) 30 mg PO Q4H PRN PRN Reason: PAIN 1-10 Last Admin: 11/02/18 14:24 Dose: 30 mg Pantoprazole Sodium (Protonix) 40 mg PO DAILY [facility] Last Admin: 11/02/18 09:48 Dose: 40 mg Polysaccharide Iron Complex (Nu-Iron) 150 mg PO BID [facility] Last Admin: 11/02/18 09:48 Dose: 150 mg Ramipril (Altace) 5 mg PO DAILY [facility] Last Admin: 11/02/18 09:48 Dose: 5 mg Senna/Docusate Sodium (Aliyah-Colace) 1 tab PO BID [facility] Last Admin: 11/02/18 09:48 Dose: 1 tab Sennosides (Senokot) 17.2 mg PO Q12H PRN PRN Reason: Moderate Constipation Last Admin: 10/29/18 10:16 Dose: 17.2 mg Sodium Chloride (Ns Flush) 2 ml IV.FLUSH BID [facility] Last Admin: 11/02/18 09:50 Dose: Not Given Sodium Chloride (Ns Flush) 2 ml IV.FLUSH PRN PRN PRN Reason: FLUSH AFTER USING IV ACCESS Last Admin: 10/07/18 11:33 Dose: 2 ml Sodium Chloride (Ns Flush) 0 ml IV.FLUSH DAILY [facility] Last Admin: 11/02/18 09:50 Dose: 5 ml Sodium Chloride (Ns Flush) 0 ml IV.FLUSH PRN PRN PRN Reason: Flush After Blood Draws Sodium Chloride (Ns Flush) 0 ml IV.FLUSH PRN PRN PRN Reason: FLUSH AFTER USING IV ACCESS Allergies Allergy/AdvReac Type Severity Reaction Status Date / Time No Known Drug Allergies Allergy none Verified 08/06/18 15:59 *MDRO Multi-Drug Resistant AdvReac Unknown MRSA Uncoded 06/16/17 16:34 Organism Home Medications Medication Instructions Recorded Confirmed Type apixaban [Eliquis] 5 mg PO BID 06/09/18 09/23/18 History diltiazem HCl 240 mg PO DAILY 06/09/18 09/23/18 History furosemide 20 mg PO BID 06/09/18 09/23/18 History insulin glargine [Lantus Solostar 50 unit SUB-Q BID 06/09/18 09/23/18 History U-100 Insulin] pantoprazole [Protonix] 40 mg PO DAILY 06/09/18 09/23/18 History ramipril 2.5 mg PO DAILY 06/09/18 09/23/18 History Exam Vital signs: Vital Signs 11/01/18 20:00 11/02/18 00:00 11/02/18 08:00 Temperature 97.6 F 97.8 F 98.0 F Pulse Rate 79 81 79 Respiratory Rate 18 18 20 Blood Pressure 117/63 144/74 H 108/61 Pulse Oximetry 100 100 99 11/02/18 12:00 Temperature 98.6 F Pulse Rate 80 Respiratory Rate 19 Blood Pressure 109/54 L Pulse Oximetry 98 Intake & Output 11/01/18 11/02/18 11/02/18 18:59 06:59 18:59 Intake Total 1300 / 1300 680 / 680 100 / 100 Output Total 1000 / 1000 900 / 900 Balance 300 / 300 -220 / -220 100 / 100 Weight 82.7 kg Intake: IV 100 / 100 200 / 200 100 / 100 Mycamine Inj 150 MG In NS Inj 100 / 100 100 / 100 100 ML @ 100 mls/hr IV.SIG Q24H [facility] Rx#:[id number] Tygacil Inj 50 MG In NS Inj 100 200 / 200 ML @ 200 mls/hr IV.SIG Q12H [facility] Rx#:[id number] Oral 1200 / 1200 480 / 480 Output: Urine 1000 / 1000 900 / 900 Other: Date of Last Bowel Movement 11/01/18 11/01/18 # Bowel Movements 0 Narrative: Right shoulder skin intact no signs of infection limited ROM in all planes no crepitation gross strength 2+/5 distally neuro, and sensory intact Results - Labs Result Diagrams: 10/30/18 05:40 10/30/18 05:40 Labs: Laboratory Results - last 24 hr 11/01/18 11/01/18 11/02/18 17:40 19:50 08:13 POC Glucose 79 207 H 205 H 11/02/18 11:55 POC Glucose 202 H Assessment and Plan - Assessment and Plan Right shoulder possible infection process or possible mass Patient's case and images were reviewed and discussed with Dr. Rossi. Patient's condition was discussed, his options of treatment was discussed. Based on his history of multiple infections, most likely this may be an infection process of the bone. At this time we will order a CT scan to provide us with more information. Will continue to follow.
--- NOTE | 2018-11-02 23:39 | CT ---
EXAM DATE: 11/02/2018 11:22 PM EST AGE/SEX: 58 years / Male INDICATIONS: Abnormal MRI; pain right shoulder; possible osteomyelitis. CLINICAL DATA: This is the patient's subsequent encounter. Patient reports that signs and symptoms h ave been present for 1 week and indicates a pain score of 7/10. MEDICAL/SURGICAL HISTORY: Diabetes. Gastroesophageal reflux disease. Hypertension. Atrial fibril lation . amputated toe RADIATION DOSE: 30.28 CTDI (mGy) [place] [facility] [place] W & W/O [place]AST, 11/[place]/2018. [facility] [place], 10/31/2018. . TECHNIQUE: Multiple contiguous axial images were acquired using a multirow detector CT scanner witho ut contrast. Multiplanar reconstruction was performed in the sagittal and coronal planes. Using aut omated exposure control and adjustment of the mA and/or kV according to patient size, radiation dose was kept as low as reasonably achievable to obtain optimal diagnostic quality images. DICOM format i mage data is available electronically for review and comparison. FINDINGS: The examination demonstrates destructive changes involving the humeral head greatest anterolaterally corresponding to the findings on the recent MRI. Cortical destruction and mild intramedullary lucency is seen anteriorly, with abnormal destructive changes also seen of the acromion process laterally. S mall ossific fragments are seen along the inferior aspect of the humeral head seen best on sagittal i mage 59 through 55. The soft tissue windows demonstrate some soft tissue to slightly lower attenuatio n seen extending anteriorly from the humeral head as well as laterally. An obvious abscess is not see n. CONCLUSION: 1. Destructive changes are seen involving the humeral head and acromion process as described above. This is concerning for osteomyelitis and involves the humerus and acromion. A neoplastic process is f elt less likely but not entirely excluded. Electronically signed by: Vaughn Mahan MD 11/02/2018 11:37 PM EST
[2018-11-03] MEDS: Baclofen 10 MG Tablet PO SCH ×2 (05:27→13:00)
[2018-11-03] MEDS: Insulin NovoLOG Aspart Correctional Sugar Inj SQ SCH ×4 (08:19→20:44)
[2018-11-03] MEDS: Polysaccharide Iron Complex 150 MG Capsule PO SCH ×2 (08:21→20:43)
[2018-11-03] MEDS: Senna/Docusate Sodium 8.6/50 MG Tablet PO SCH ×2 (08:21→20:43)
[2018-11-03] MEDS: Gabapentin 300 MG Capsule PO SCH ×3 (08:22→17:58)
[2018-11-03] MEDS: Ramipril 5 MG Capsule PO SCH (08:22)
[2018-11-03] MEDS: Azithromycin 250 MG Tablet PO SCH (08:22)
[2018-11-03] MEDS: Multivitamin/Minerals Therapeutic Tablet PO SCH (08:22)
[2018-11-03] MEDS: Furosemide 20 MG Tablet PO SCH ×2 (08:22→20:43)
[2018-11-03] MEDS: Heparin Central Flush 100 UNIT/ML 5 ML Vial IV.FLUSH SCH (08:24)
[2018-11-03] MEDS: Sodium Chloride 0.9% 2 ML Flush BID IV.FLUSH SCH ×2 (08:25→20:43)
[2018-11-03] MEDS: Insulin Detemir Inj 1,000 UNIT/10 ML Vial SQ SCH ×2 (08:25→20:43)
--- NOTE | 2018-11-03 11:06 | P.PNIM ---
Subjective Interval history: in no acute distress. looks fairly comfortable. no fever. Physical Exam Vital signs: Vital Signs 11/02/18 12:00 11/02/18 16:00 11/02/18 20:00 Temperature 98.6 F 97.9 F 99 F Pulse Rate 80 82 86 Respiratory Rate 19 18 18 Blood Pressure 109/54 L 132/67 115/68 Pulse Oximetry 98 100 96 11/03/18 00:00 11/03/18 05:25 11/03/18 08:00 Temperature 98.4 F 98.4 F Pulse Rate 91 H 76 Respiratory Rate 18 19 Blood Pressure 125/60 139/77 106/65 Pulse Oximetry 100 100 Intake & Output 11/02/18 11/03/18 11/03/18 18:59 06:59 18:59 Intake Total 1800 / 1800 340 / 340 Output Total 1400 / 1400 1150 / 1150 Balance 400 / 400 -810 / -810 Weight 85.5 kg Intake: IV 200 / 200 100 / 100 Mycamine Inj 150 MG In NS Inj 100 / 100 100 ML @ 100 mls/hr IV.SIG Q24H [facility] Rx#:[id number] Tygacil Inj 50 MG In NS Inj 100 100 / 100 100 / 100 ML @ 200 mls/hr IV.SIG Q12H [facility] Rx#:[id number] Oral 1600 / 1600 240 / 240 Output: Urine 1400 / 1400 1150 / 1150 Other: Date of Last Bowel Movement 11/01/18 # Bowel Movements 1 - Constitutional no acute distress - Routine Respiratory Exam Present: CTA bilaterally - Routine Cardiovascular Exam Present: RRR - Routine Abdominal Exam Present: soft - Routine Extremities Exam Comments: no pedal edema. - Routine Neurological Exam Present: alert, oriented X3 - Urinary Catheter Management Indwelling Urethral Catheter Cath placed during this visit: yes, but has since been removed by the nurse Reason for continuing: Decision to DC catheter Removal date: 10/05/18 Removal time: 09:30 Results - Labs CBC & Chem 7: 10/30/18 05:40 10/30/18 05:40 Laboratory Results - last 24 hr 11/02/18 11/02/18 11/02/18 11:55 16:40 19:43 POC Glucose 202 H 79 165 H - Imaging Impressions Shoulder CT 11/02/18 00:00 CONCLUSION: 1. Destructive changes are seen involving the humeral head and acromion process as described above. This is concerning for osteomyelitis and involves the humerus and acromion. A neoplastic process is felt less likely but not entirely excluded. Assessment and Plan - Assessment (1) Abscess of hand, left Code(s): L02.512 - Cutaneous abscess of left hand Status: Acute (2) Hoarse voice quality Code(s): R49.0 - Dysphonia Status: Acute - Plan 1. Catheter related infection from PICC line. 2. Thrombus of the right upper extremity related to PICC line. 3. 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 Continue Micafungin for discitis and osteomyelitis. Anticipate 12 weeks of antifungal for discitis / osteomyelitis due to Portia stop date 01/04/2018(12) weeks. Continue Tigecycline until 01/21/18. follow LFTs, sed rate weekly. 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 Monitor white blood cell count which is improving. Repeat MRI of the lumbar spine showed improved abscess and discitis per neurosurgery who recommended physical therapy to help with left lower extremity weakness. 4. 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 Switch to azithromycin by GIDEON velazquez 01/21/19 Followed by hand surgeon. Reportedly tendon was exposed. Suspected early or mild scapholunate associated collapse and dorsal intercalated segmental instability right wrist. Follow-up wrist MRI with possible infection versus inflammation per hand surgery favor inflammation. Elevated ESR and CRP. Rheumatoid factor and ANDRA negative. OT consult 5. S/p fall with L1 compression injury. Per neurosurgery conservative management with brace and physical therapy 6. Rash now appears to be due to pressure from patient laying on his back all day. 7. VC paresis related to intubation. S/P ENT eval, expect slow recovery 8. thyroid nodule. US in 6 mos [address] ML nod[address]. CT in 6 mos 10. Atrial fibrillation currently rate-controlled. Ct Eliquis and CCB Diltiazem 11. HTN . Continue furosemide, Cardizem and clonidine increase her Monopril 12. Diabetes mellitus. A1c 7.8. Levemir 36 units units AM, and 25 units at bedtime, SSI with Accu-Cheks per protocol. Hypoglycemia protocol 13. Anemia of acute blood loss. Monitor H&H and transfuse for hemoglobin less than 7 14. right shoulder pain- MRI was reviewed-CT with possible osteomyelitis- ortho consulted; awaiting follow-up and recommendations. 15. DVT prophylaxis: SCDs and eliquis Discharge Planning: home when stable-awaiting ortho follow up and recommendations.
[2018-11-03] MEDS: Micafungin Inj 150 MG in Sodium Chlor 0.9% Inj 100 ML IV.SIG SCH (11:47)
--- NOTE | 2018-11-03 13:40 | P.PNIM ---
Subjective Interval history: NOT SEEN Physical Exam Vital signs: Last Vital Signs Temp 97.6 F 11/03/18 12:00 Pulse 77 11/03/18 12:00 Resp 18 11/03/18 12:00 BP 118/73 11/03/18 12:00 Pulse Ox 97 11/03/18 12:00 Intake & Output 11/01/18 11/02/18 11/03/18 11/04/18 06:59 06:59 06:59 06:59 Intake Total 780 / 780 1979 / 1979 2140 / 2140 100 / 100 Output Total 1850 / 1850 1900 / 1900 2550 / 2550 Balance -1070 / -1070 80 / 80 -410 / -410 100 / 100 Weight 84.6 kg 82.7 kg 85.5 kg Narrative: t Urinary Catheter Management Indwelling Urethral Catheter: Cath placed during this visit: yes, but has since been removed by the nurse Removal date: 10/05/18 Removal time: 09:30 Results Labs CBC & Chem 7: 10/30/18 05:40 10/30/18 05:40 Imaging Imaging: Impressions Shoulder CT 11/02/18 00:00 CONCLUSION: 1. Destructive changes are seen involving the humeral head and acromion process as described above. This is concerning for osteomyelitis and involves the humerus and acromion. A neoplastic process is felt less likely but not entirely excluded. Assessment and Plan (1) Abscess of hand, left: Code(s): L02.512 - Cutaneous abscess of left hand Status: Acute (2) Hoarse voice quality: Code(s): R49.0 - Dysphonia Status: Acute Plan 1. Catheter related infection from PICC line. 2. Thrombus of the right upper extremity related to PICC line. 3. 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 Continue Micafungin for discitis and osteomyelitis. Anticipate 12 weeks of antifungal for discitis / osteomyelitis due to Portia stop date 01/04/2018(12) weeks. Continue Tigecycline until 01/21/18. (the sedimentation rate has not showed improvement.) follow LFTs, sed rate weekly. 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 Monitor white blood cell count which is improving. Repeat MRI of the lumbar spine showed improved abscess and discitis per neurosurgery who recommended physical therapy to help with left lower extremity weakness. 4. 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 Switch to azithromycin by GIDEON velazquez 01/21/19 Followed by hand surgeon. Reportedly tendon was exposed. Suspected early or mild scapholunate associated collapse and dorsal intercalated segmental instability right wrist. Follow-up wrist MRI with possible infection versus inflammation per hand surgery favor inflammation. Elevated ESR and CRP. Rheumatoid factor and ANDRA negative. OT consult 5. S/p fall with L1 compression injury. Per neurosurgery conservative management with brace and physical therapy 6. Rash now appears to be due to pressure from patient laying on his back all day. 7. Leukocytosis. No clear etiology. Patient has been laying on his back and taking liquids. He potentially could be aspirating. Improved will monitor 8. VC paresis related to intubation. S/P ENT eval, expect slow recovery 9. thyroid nodule. US in 6 mos 10. ML nodule. CT in 6 mos 11. Atrial fibrillation currently rate-controlled. Ct Eliquis and CCB Diltiazem 12. HTN . Continue furosemide, Cardizem and clonidine increase her Monopril 13. Diabetes mellitus. A1c 7.8. Levemir 36 units units AM, and 25 units at bedtime, SSI with Accu-Cheks per protocol. Hypoglycemia secondary to decreased oral intake, improved. Patient counseled. Hypoglycemia protocol 14. Anemia of acute blood loss. Monitor H&H and transfuse for hemoglobin less than 7 15. DVT prophylaxis: SCDs and eliquis Discharge Planning: Pending SNF acceptance Progress Note: Quality VTE Deep Vein Thrombosis/Pulmonary Embolism Present on Admission: No
[2018-11-03] MEDS: dilTIAZem CD 120 MG Capsule PO SCH (16:14)
--- NOTE | 2018-11-03 19:53 | P.PNOP ---
Subjective Interval history: The patient complains of ongoing pain for 2-1/2 months involving his right shoulder and his low back. He states he has had multiple infections in the past. The CT scan of the right shoulder is been completed. Physical Exam Vital signs: Vital Signs 11/02/18 20:00 11/03/18 00:00 11/03/18 05:25 Temperature 99 F 98.4 F Pulse Rate 86 91 H Respiratory Rate 18 18 Blood Pressure 115/68 125/60 139/77 Pulse Oximetry 96 100 11/03/18 08:00 11/03/18 12:00 11/03/18 16:00 Temperature 98.4 F 97.6 F 99.1 F Pulse Rate 76 77 85 Respiratory Rate 19 18 19 Blood Pressure 106/65 118/73 106/58 L Pulse Oximetry 100 97 100 Intake & Output 11/03/18 11/03/18 11/04/18 06:59 18:59 06:59 Intake Total 340 / 340 1700 / 1700 Output Total 1150 / 1150 1300 / 1300 Balance -810 / -810 400 / 400 Weight 85.5 kg Intake: IV 100 / 100 200 / 200 Mycamine Inj 150 MG In NS Inj 100 / 100 100 ML @ 100 mls/hr IV.SIG Q24H [facility] Rx#:[id number] Tygacil Inj 50 MG In NS Inj 100 100 / 100 100 / 100 ML @ 200 mls/hr IV.SIG Q12H [facility] Rx#:[id number] Oral 240 / 240 1500 / 1500 Output: Urine 1150 / 1150 1300 / 1300 Other: Date of Last Bowel Movement 11/03/18 # Bowel Movements 2 Narrative: Right upper extremity shows significant weakness with abduction and external rotation. Passively he has about 60% range of motion and discomfort on extremes of motion. His distal motor sensory neurologic examination is intact and regarding his right hand. His right shoulder shows some mild fullness in the front but there is no erythema no increased warmth and no fluctuance. No instability with range of motion. - Urinary Catheter Management Indwelling Urethral Catheter Cath placed during this visit: yes, but has since been removed by the nurse Reason for continuing: Decision to DC catheter Removal date: 10/05/18 Removal time: 09:30 Results - Labs CBC & Chem 7: 10/30/18 05:40 10/30/18 05:40 Laboratory Results - last 24 hr 11/03/18 11/03/18 11:46 16:45 POC Glucose 198 H 177 H - Imaging Impressions Shoulder CT 11/02/18 00:00 CONCLUSION: 1. Destructive changes are seen involving the humeral head and acromion process as described above. This is concerning for osteomyelitis and involves the humerus and acromion. A neoplastic process is felt less likely but not entirely excluded. Assessment and Plan - Assessment and Plan Right shoulder chronic osteomyelitis which appears to be under control with current IV antibiotic regimen. His condition was discussed and the options of treatment were discussed. I explained to him the option of surgical intervention where we remove infected bone and any tissue that is involved. This type of surgical intervention is somewhat destructive. In some cases is required. He does not appear to have an acute inflammatory condition associated with this infection. Therefore, I believe that the infection is controlled with the antibiotics. It is possible that long-term antibiotics can eradicate the infection. It is also possible that he will develop a Aiden's abscess that ultimately will require surgical intervention. At this point the recommendation is a nonoperative approach with long-term IV antibiotics as it appears that he will need this for his low back condition. I have explained all this to the patient. He asked appropriate questions. All of his questions were answered. He will contact me on an as-needed basis. All of his questions were answered. A mid level provider in my office, nurse practitioner or PA, may see this patient on a follow up basis and continue to implement the plan including: starting or adjusting medications, injections of muscle, tendons, bursa or joints, cast application, orthotic or brace application, physical therapy, further radiographic studies including X-ray, MRI, CT, ultrasound or bone scan , vascular studies, neurological studies, or other specialist consultations, and proceeding with surgical management as appropriate.
[2018-11-04] MEDS: Baclofen 10 MG Tablet PO SCH ×4 (00:19→21:08)
[2018-11-04] MEDS: Insulin NovoLOG Aspart Correctional Sugar Inj SQ SCH ×4 (07:19→21:08)
[2018-11-04] MEDS: Furosemide 20 MG Tablet PO SCH ×2 (08:00→21:08)
[2018-11-04] MEDS: Azithromycin 250 MG Tablet PO SCH (08:00)
[2018-11-04] MEDS: Polysaccharide Iron Complex 150 MG Capsule PO SCH ×2 (08:00→21:08)
[2018-11-04] MEDS: Senna/Docusate Sodium 8.6/50 MG Tablet PO SCH ×2 (08:00→21:08)
[2018-11-04] MEDS: Insulin Detemir Inj 1,000 UNIT/10 ML Vial SQ SCH ×2 (08:01→21:09)
[2018-11-04] MEDS: Gabapentin 300 MG Capsule PO SCH ×3 (08:01→17:00)
[2018-11-04] MEDS: Sodium Chloride 0.9% 2 ML Flush BID IV.FLUSH SCH ×2 (08:01→21:08)
[2018-11-04] MEDS: Multivitamin/Minerals Therapeutic Tablet PO SCH (08:01)
[2018-11-04] MEDS: Heparin Central Flush 100 UNIT/ML 5 ML Vial IV.FLUSH SCH (08:02)
[2018-11-04] MEDS: Ramipril 5 MG Capsule PO SCH (08:02)
[2018-11-04] MEDS: Micafungin Inj 150 MG in Sodium Chlor 0.9% Inj 100 ML IV.SIG SCH (11:09)
--- NOTE | 2018-11-04 12:51 | P.PNIM ---
Physical Exam Vital signs: Last Vital Signs Temp 98.5 F 11/04/18 12:00 Pulse 80 11/04/18 12:00 Resp 16 11/04/18 12:00 BP 119/59 L 11/04/18 12:00 Pulse Ox 100 11/04/18 12:00 Intake & Output 11/02/18 11/03/18 11/04/18 11/05/18 06:59 06:59 06:59 06:59 Intake Total 1979 / 1979 2140 / 2140 2040 / 2040 100 / 100 Output Total 1900 / 1900 2550 / 2550 2400 / 2400 Balance 80 / 80 -410 / -410 -360 / -360 100 / 100 Weight 82.7 kg 85.5 kg 81.3 kg Narrative: GENERAL: SKIN: Warm and dry. HEAD: Atraumatic. Normocephalic. EYES: Pupils equal and round. No scleral icterus. No injection or drainage. ENT: No nasal bleeding or discharge. Mucous membranes pink and moist. NECK: Trachea midline. No JVD. CARDIOVASCULAR: Regular rate and rhythm. RESPIRATORY: No accessory muscle use. Clear to auscultation. Breath sounds equal bilaterally. GASTROINTESTINAL: Abdomen soft, non-tender, nondistended. Hepatic and splenic margins not palpable. MUSCULOSKELETAL: Extremities without clubbing, cyanosis, or edema. No obvious deformities. NEUROLOGICAL: Awake and alert. No obvious cranial nerve deficits. Motor grossly within normal limits. Five out of 5 muscle strength in the arms and legs. Normal speech. PSYCHIATRIC: Appropriate mood and affect; insight and judgment normal. Urinary Catheter Management Indwelling Urethral Catheter: Cath placed during this visit: yes, but has since been removed by the nurse Removal date: 10/05/18 Removal time: 09:30 Results Labs CBC & Chem 7: 10/30/18 05:40 10/30/18 05:40 Assessment and Plan (1) Abscess of hand, left: Code(s): L02.512 - Cutaneous abscess of left hand Status: Acute (2) Hoarse voice quality: Code(s): R49.0 - Dysphonia Status: Acute Plan 1. Catheter related infection from PICC line. 2. Thrombus of the right upper extremity related to PICC line. 3. 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 Continue Micafungin for discitis and osteomyelitis. Anticipate 12 weeks of antifungal for discitis / osteomyelitis due to Portia stop date 01/04/2018(12) weeks. Continue Tigecycline until 01/21/18. follow LFTs, sed rate weekly. 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 Monitor white blood cell count which is improving. Repeat MRI of the lumbar spine showed improved abscess and discitis per neurosurgery who recommended physical therapy to help with left lower extremity weakness. 4. 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 Switch to azithromycin by GIDEON velazquez 01/21/19 Followed by hand surgeon. Reportedly tendon was exposed. Suspected early or mild scapholunate associated collapse and dorsal intercalated segmental instability right wrist. Follow-up wrist MRI with possible infection versus inflammation per hand surgery favor inflammation. Elevated ESR and CRP. Rheumatoid factor and ANDRA negative. OT consult 5. S/p fall with L1 compression injury. Per neurosurgery conservative management with brace and physical therapy 6. Rash now appears to be due to pressure from patient laying on his back all day. 7. VC paresis related to intubation. S/P ENT eval, expect slow recovery 8. thyroid nodule. US in 6 mos 9[address] ML nodule. CT in 6 mos 10. Atrial fibrillation currently rate-controlled. Ct Eliquis and CCB Diltiazem 11. HTN . Continue furosemide, Cardizem and clonidine increase her Monopril 12. Diabetes mellitus. A1c 7.8. Levemir 36 units units AM, and 25 units at bedtime, SSI with Accu-Cheks per protocol. Hypoglycemia protocol 13. Anemia of acute blood loss. Monitor H&H and transfuse for hemoglobin less than 7 14. right shoulder pain- MRI was reviewed-CT with possible osteomyelitis- ortho consulted; awaiting follow-up and recommendations. 15. DVT prophylaxis: SCDs and eliquis Progress Note: Quality VTE Deep Vein Thrombosis/Pulmonary Embolism Present on Admission: No
--- NOTE | 2018-11-04 13:51 | P.PNIM ---
Subjective Interval history: in no acute distress. afebrile. has mild pain to the knees and right shoulder. Physical Exam Vital signs: Last Vital Signs Temp 98.5 F 11/04/18 12:00 Pulse 80 11/04/18 12:00 Resp 16 11/04/18 12:00 BP 119/59 L 11/04/18 12:00 Pulse Ox 100 11/04/18 12:00 Intake & Output 11/02/18 11/03/18 11/04/18 11/05/18 06:59 06:59 06:59 06:59 Intake Total 1979 / 1979 2140 / 2140 2040 / 2040 100 / 100 Output Total 1900 / 1900 2550 / 2550 2400 / 2400 Balance 80 / 80 -410 / -410 -360 / -360 100 / 100 Weight 82.7 kg 85.5 kg 81.3 kg Constitutional no acute distress Routine Respiratory Exam Present CTA bilaterally Routine Cardiovascular Exam Present RRR Routine Abdominal Exam Present soft Routine Extremities Exam Comments: no pedal edema. Routine Neurological Exam Present alert and oriented X3 Urinary Catheter Management Indwelling Urethral Catheter: Cath placed during this visit: yes, but has since been removed by the nurse Removal date: 10/05/18 Removal time: 09:30 Results Labs CBC & Chem 7: 10/30/18 05:40 10/30/18 05:40 Assessment and Plan (1) Abscess of hand, left: Code(s): L02.512 - Cutaneous abscess of left hand Status: Acute (2) Hoarse voice quality: Code(s): R49.0 - Dysphonia Status: Acute Plan 1. Catheter related infection from PICC line. 2. Thrombus of the right upper extremity related to PICC line. 3. 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 Continue Micafungin for discitis and osteomyelitis. Anticipate 12 weeks of antifungal for discitis / osteomyelitis due to Portia stop date 01/04/2018(12) weeks. Continue Tigecycline until 01/21/18. follow LFTs, sed rate weekly. 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 Monitor white blood cell count which is improving. Repeat MRI of the lumbar spine showed improved abscess and discitis per neurosurgery who recommended physical therapy to help with left lower extremity weakness. 4. 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 Switch to azithromycin by ID til 01/21/19 Followed by hand surgeon. Reportedly tendon was exposed. Suspected early or mild scapholunate associated collapse and dorsal intercalated segmental instability right wrist. Follow-up wrist MRI with possible infection versus inflammation per hand surgery favor inflammation. Elevated ESR and CRP. Rheumatoid factor and ANDRA negative. OT consult 5. S/p fall with L1 compression injury. Per neurosurgery conservative management with brace and physical therapy 6. VC paresis related to intubation. S/P ENT eval, expect slow recovery 7. thyroid nodule. US in 6 mos [address] ML nodule. CT in 6 mos 9. Atrial fibrillation currently rate-controlled. Ct Eliquis and CCB Diltiazem 10. HTN . Continue furosemide, Cardizem and clonidine increase her Monopril 11. Diabetes mellitus. A1c 7.8. Levemir 36 units units AM, and 25 units at bedtime, SSI with Accu-Cheks per protocol. Hypoglycemia protocol 12. Anemia of acute blood loss. Monitor H&H and transfuse for hemoglobin less than 7 13. right shoulder pain- MRI was reviewed-CT with possible osteomyelitis- ortho consulted; recommended non-op treatment and to continue with IV antibiotics. 15. DVT prophylaxis: SCDs and eliquis Discharge Planning: home- soon - when cleared by ID and safe with PT. Progress Note: Quality VTE Deep Vein Thrombosis/Pulmonary Embolism Present on Admission: No
[2018-11-04] MEDS: dilTIAZem CD 120 MG Capsule PO SCH (15:18)
[2018-11-05] MEDS: Baclofen 10 MG Tablet PO SCH ×3 (05:06→21:43)
[2018-11-05] MEDS: Azithromycin 250 MG Tablet PO SCH (08:42)
[2018-11-05] MEDS: Furosemide 20 MG Tablet PO SCH ×2 (08:42→21:43)
[2018-11-05] MEDS: Sodium Chloride 0.9% 2 ML Flush BID IV.FLUSH SCH ×2 (08:42→21:44)
[2018-11-05] MEDS: Gabapentin 300 MG Capsule PO SCH ×3 (08:42→17:01)
[2018-11-05] MEDS: Multivitamin/Minerals Therapeutic Tablet PO SCH (08:42)
[2018-11-05] MEDS: Senna/Docusate Sodium 8.6/50 MG Tablet PO SCH ×2 (08:42→21:43)
[2018-11-05] MEDS: Polysaccharide Iron Complex 150 MG Capsule PO SCH ×2 (08:42→21:44)
[2018-11-05] MEDS: Heparin Central Flush 100 UNIT/ML 5 ML Vial IV.FLUSH SCH (08:43)
[2018-11-05] MEDS: Insulin Detemir Inj 1,000 UNIT/10 ML Vial SQ SCH ×2 (08:43→21:43)
[2018-11-05] MEDS: Ramipril 5 MG Capsule PO SCH (08:43)
[2018-11-05] MEDS: Insulin NovoLOG Aspart Correctional Sugar Inj SQ SCH ×4 (08:43→21:52)
[2018-11-05] MEDS: Micafungin Inj 150 MG in Sodium Chlor 0.9% Inj 100 ML IV.SIG SCH (10:46)
--- NOTE | 2018-11-05 11:12 | P.PNIM ---
Subjective Interval history: in no acute distress. has some pain to the right shoulder. no fever. Physical Exam Vital signs: Last Vital Signs Temp 97.6 F 11/05/18 08:00 Pulse 76 11/05/18 08:00 Resp 18 11/05/18 08:59 BP 117/59 L 11/05/18 08:00 Pulse Ox 100 11/05/18 08:00 Intake & Output 11/03/18 11/04/18 11/05/18 11/06/18 06:59 06:59 06:59 06:59 Intake Total 2140 / 2140 2040 / 2040 1260 / 1260 Output Total 2550 / 2550 2400 / 2400 1775 / 1775 Balance -410 / -410 -360 / -360 -515 / -515 Weight 85.5 kg 81.3 kg 84.2 kg Constitutional no acute distress Routine Respiratory Exam Present CTA bilaterally Routine Cardiovascular Exam Present RRR Routine Abdominal Exam Present soft Routine Extremities Exam Comments: no pedal edema. Routine Neurological Exam Present alert and oriented X3 Urinary Catheter Management Indwelling Urethral Catheter: Cath placed during this visit: yes, but has since been removed by the nurse Removal date: 10/05/18 Removal time: 09:30 Results Labs CBC & Chem 7: 10/30/18 05:40 10/30/18 05:40 Assessment and Plan (1) Abscess of hand, left: Code(s): L02.512 - Cutaneous abscess of left hand Status: Acute (2) Hoarse voice quality: Code(s): R49.0 - Dysphonia Status: Acute Plan 1. Catheter related infection from PICC line. 2. Thrombus of the right upper extremity related to PICC line. 3. 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 Continue Micafungin for discitis and osteomyelitis. Anticipate 12 weeks of antifungal for discitis / osteomyelitis due to Portia stop date 01/04/2018(12) weeks. Continue Tigecycline until 01/21/18. follow LFTs, sed rate weekly. 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 Monitor white blood cell count which is improving. Repeat MRI of the lumbar spine showed improved abscess and discitis per neurosurgery who recommended physical therapy to help with left lower extremity weakness. 4. 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 Switch to azithromycin by ID til 01/21/19 Followed by hand surgeon. Reportedly tendon was exposed. Suspected early or mild scapholunate associated collapse and dorsal intercalated segmental instability right wrist. Follow-up wrist MRI with possible infection versus inflammation per hand surgery favor inflammation. Elevated ESR and CRP. Rheumatoid factor and ANDRA negative. OT consult 5. S/p fall with L1 compression injury. Per neurosurgery conservative management with brace and physical therapy 6. VC paresis related to intubation. S/P ENT eval, expect slow recovery 7. thyroid nodule. US in 6 mos 8. ML nodule. CT in 6 mos 9. Atrial fibrillation currently rate-controlled. Ct Eliquis and CCB Diltiazem 10. HTN . Continue furosemide, Cardizem and clonidine increase her Monopril 11. Diabetes mellitus. A1c 7.8. Levemir 36 units units AM, and 25 units at bedtime, SSI with Accu-Cheks per protocol. Hypoglycemia protocol 12. Anemia of acute blood loss. Monitor H&H and transfuse for hemoglobin less than 7 13. right shoulder pain- MRI was reviewed-CT with possible osteomyelitis- ortho consulted; recommended non-op treatment and to continue with IV antibiotics. d/w today and recommended biopsy and culture from the right shoulder. 15. DVT prophylaxis: SCDs and eliquis Discharge Planning: home- - when cleared by ID - might need bone biopsy. Progress Note: Quality VTE Deep Vein Thrombosis/Pulmonary Embolism Present on Admission: No
--- NOTE | 2018-11-05 14:56 | P.PNID ---
Subjective Remarks: Notes reviewed. Patient noted to have pain in the right shoulder. MRI shows lesion which is enhanced. This has appearance of fluid. She tells me that he has had more pain in the right shoulder lifting and has been having difficulty raising shoulder. He reports that he has had problems with the right shoulder 2 years ago and he has had pain off and on. Talking in a whisper. Reports that his back pain is not bad. States that he gets pain in the left thigh that has been steady over the past 5 days but today it is better. Laying on his back with his legs down onto the floor at the edge of lower part of the bed. Denies fever or chills. Afebrile. Antibiotics: Azithromycin Micafungin Tigecycline Lines: Line sites with no evidence of infection. 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 Allergies/Adverse Reactions: Allergies No Known Drug Allergies Allergy (Verified 08/06/18 15:59) none *MDRO Multi-Drug Resistant Organism Adverse Reaction (Unknown, Uncoded 06/16/17 16:34) MRSA MRSA (foot wound) - 02/12/15, 11/12/16, 03/29/17; (toe) - 03/2016 Objective Vital Signs 11/04/18 16:00 11/04/18 20:00 11/05/18 00:00 Temperature 99.0 F 98.7 F 97.9 F Pulse Rate 95 H 84 79 Respiratory Rate 16 18 18 Blood Pressure 117/56 L 126/64 128/60 Pulse Oximetry 100 99 99 11/05/18 04:00 11/05/18 08:00 11/05/18 08:59 Temperature 98.1 F 97.6 F Pulse Rate 76 76 Respiratory Rate 18 18 18 Blood Pressure 119/60 117/59 L Pulse Oximetry 99 100 11/05/18 11:45 11/05/18 12:00 11/05/18 14:10 Temperature 97.0 F L Pulse Rate 78 Respiratory Rate 16 17 16 Blood Pressure 124/64 Pulse Oximetry 100 Intake & Output 11/04/18 11/05/18 11/05/18 18:59 06:59 18:59 Intake Total 920 / 920 340 / 340 100 / 100 Output Total 850 / 850 925 / 925 Balance 70 / 70 -585 / -585 100 / 100 Weight 84.2 kg Intake: IV 200 / 200 100 / 100 100 / 100 Mycamine Inj 150 MG In NS Inj 100 / 100 100 / 100 100 ML @ 100 mls/hr IV.SIG Q24H ROBBIE Rx#:[id number] Tygacil Inj 50 MG In NS Inj 100 100 / 100 100 / 100 ML @ 200 mls/hr IV.SIG Q12H ROBBIE Rx#:[id number] Oral 720 / 720 240 / 240 Output: Urine 850 / 850 925 / 925 Other: Date of Last Bowel Movement 11/03/18 11/03/18 Lab - Chemistry Results 11/03/18 11/03/18 11/04/18 16:45 20:02 07:16 POC Glucose 177 H 121 H 80 11/04/18 11/04/18 11/04/18 11:09 16:03 20:57 POC Glucose 107 241 H 159 H 11/05/18 08:41 POC Glucose 82 Imaging: ITS Impressions Venous Doppler Study 09/23/18 13:35 CONCLUSION: 1. Occlusive thrombus in the proximal and mid cephalic vein. 2. Deep venous system is otherwise patent. 3. Heterogeneous hypoechoic collection along the right shoulder which could represent a hematoma and/or seroma. Chest CT 10/15/18 00:00 CONCLUSION: 1. 7 mm nodular opacity in the right middle lobe: Surveillance recommended with follow-up scan in 6 months. 2. Mild interstitial prominence which may be inflammatory. 3. No evidence of consolidating airspace disease or pleural effusions. Soft Tissue Neck CT 10/15/18 00:00 CONCLUSION: 1. Left supraclavicular adenopathy. 2. Multiple small thyroid nodules bilaterally. Chest X-Ray 10/18/18 16:16 CONCLUSION: No acute cardiopulmonary disease. There is no definite evidence of pneumonia. Lumbar Spine X-Ray 10/20/18 00:00 CONCLUSION: 1. A suspected new/acute, mild compression fracture of L1. No retropulsed fragments are seen. 2. Recent postop fusion from L2 through S1 without evidence of an acute complication in the operative region. Wrist X-Ray 10/20/18 00:00 CONCLUSION: 1. No acute fracture or acute appearing malalignment of the right wrist. 2. Suspected early or mild scapholunate associated collapse and dorsal intercalated segmental instability. 3. 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 Lumbar Spine CT 10/21/18 00:00 CONCLUSION: 1. There has been interval fusion from L2 down to S1. There is minimal anterolisthesis of L4 on L5. There has been previous laminectomy at L4 and L5. 2. Destructive changes in the L4-5 endplates consistent with patient's history of previous discitis. There is paraspinous soft tissue extending from L4 down to S1. This is similar compared to previous exam. 3. There is a small amount of gas within the subcutaneous soft tissues at the L2 level. There are skin dilshad in place. 4. Individual levels are dictated in detail above. Wrist MRI 10/21/18 00:00 CONCLUSION: 1. Elongated subcutaneous fluid collection at the level of the distal radius with rim enhancement and potentially an abscess in the proper clinical setting. A focally thrombosed vessel would be conceivable. This collection does not appear to be within the tendon sheaths of adjacent extensor compartments 3 or 4. No intrinsic flexor or extensor tendon abnormality demonstrated. 2. Effusion and severe synovitis of the distal radioulnar joint and also synovitis in the prestyloid region. This is nonspecific; infectious and inflammatory etiologies are in the differential. If the distal radioulnar joint is infected, there are signal changes of the distal ulna that would be concerning for osteomyelitis. 3. DISI and SLAC wrist. Radial sided osteoarthritis. There is marrow edema of the scaphoid, mostly the distal half of the bone that is nonspecific but presumably reactive. 4. Mild to moderate osteoarthritis with subchondral cystic change of the lunotriquetral joint. This is underestimated radiographically. Lumbar Spine MRI 10/27/18 00:00 CONCLUSION: 1. Interval posterior fusion at L2-S1. 2. Persistent endplate destructive changes at L4-5 with significantly improved epidural abscess. 3. There is improved but persistent peripherally enhancing fluid signal in the L4-5 disc space extending anteriorly to the prevertebral soft tissues. Findings are concerning for recurrent/residual discitis and prevertebral phlegmon. Shoulder X-Ray 10/31/18 00:00 CONCLUSION: Faint calcification adjacent to the greater tubercle likely related to calcific tendinitis/hydroxyapatite deposition. High right humeral head which can be seen with rotator cuff abnormality. Chronic hypertrophic change seen lateral to the acromion. Shoulder MRI 11/01/18 00:00 CONCLUSION: 1. Markedly abnormal shoulder joint including humerus and deltoid muscle. Considerations would include both an inflammatory and neoplastic process. Shoulder CT 11/02/18 00:00 CONCLUSION: 1. Destructive changes are seen involving the humeral head and acromion process as described above. This is concerning for osteomyelitis and involves the humerus and acromion. A neoplastic process is felt less likely but not entirely excluded. Physical Exam: PHYSICAL EXAMINATION: GENERAL: No acute distress. HEENT: Head atraumatic. Extraocular movements grossly intact. Pupils reactive to light, without icterus. Oropharynx: Moist mucosa. No visible lesions. No thrush. NECK: Supple without adenopathy or swelling. LUNGS: Breath sounds decreased. HEART: Regular S1, S2, without murmurs, rubs or gallops. ABDOMEN: Bowel sounds present; flat, soft, non tender. EXTREMITIES: Mild tenderness at the right shoulder on palpation. Decreased range of motion. No clubbing or cyanosis or edema. SKIN: No rash. Skin is warm and moist. NEUROLOGIC: Nonfocal. Weakness at the left lower extremity. PSYCHIATRIC: Calm. Assessment and Plan - Plan ASSESSMENT AND PLAN: 1. Catheter related infection from PICC line. 2. Thrombus of the right upper extremity related to PICC line. 3. 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 Sedimentation rate remain elevated. 4. 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 Followed by hand surgeon. Reportedly tendon was exposed. 5. Chronic pain. 6. Rash now appears to be due to pressure from patient laying on his back all day. 7. Leukocytosis. No clear etiology. Patient has been laying on his back and taking liquids. New right shoulder pain and lesion noted on MRI and CT scan. Questionable infection. RECOMMENDATIONS: 1. Continue Micafungin for discitis and osteomyelitis. Plan for 12 weeks of antifungal for discitis / osteomyelitis due to Portia. until 01/04/2019(12) weeks. 2. Continue azithromycin 500mg PO daily until 01/21/2019. 3. Continue Tigecycline until 01/21/2019 The Tigecycline should cover gram-positive organisms in addition to Mycobacterium abscessus. The prior rash could have been secondary to cefoxitin. 4. Biopsy of this shoulder lesion by radiology. Discussed with Dr. harris. Arrangements made with radiology for procedure tomorrow. Send samples for bacteria, fungal and AFB culture and also for pathology evaluation. Further recommendations depending on the findings of the biopsy of the right shoulder. Discussed with Dr. harris. Radiographic studies reviewed with radiology.
[2018-11-05] MEDS: dilTIAZem CD 120 MG Capsule PO SCH (16:37)
[2018-11-06] MEDS: Baclofen 10 MG Tablet PO SCH ×3 (05:48→22:32)
[2018-11-06 06:12] LABS: Baso # (Auto) 0.1 th/mm3 (0.0-0.2); Eos # (Auto) 0.7 th/mm3 (0.0-0.4); Eos % (Auto) 5.2 % (0.0-4.0); Hematocrit 26.9 % (39.0-51.0); Hemoglobin 9.1 gm/dL (13.0-17.0); Lymph # (Auto) 1.8 th/mm3 (1.0-4.8); Lymph % (Auto) 13.7 % (9.0-44.0); Mean Corpuscular HGB Conc 33.6 % (32.0-36.0); Mean Corpuscular Hemoglobin 24.8 pg (27.0-34.0); Mean Corpuscular Volume 73.7 fL (80.0-100.0); Mean Platelet Volume 6.4 fL (7.0-11.0); Mono % (Auto) 7.8 % (0.0-8.0); Neut # (Auto) 9.3 th/mm3 (1.8-7.7); Neut % (Auto) 72.3 % (16.0-70.0); Platelet Count 439 th/mm3 (150-450); Red Blood Count 3.65 mil/mm3 (4.50-5.90); Red Cell Distribution Width 16.7 % (11.6-17.2); White Blood Count 12.9 th/mm3 (4.0-11.0)
[2018-11-06 06:24] LABS: Activated Partial Thrombo Time 38.4 sec (23.4-31.7); INR 1.2 Ratio; Prothrombin Time 12.2 sec (9.8-11.6)
[2018-11-06 06:45] LABS: Anion Gap 7 meq/L (5-15); Blood Urea Nitrogen 24 mg/dL (7-18); Calcium 8.5 mg/dL (8.5-10.1); Carbon Dioxide 24.8 meq/L (21.0-32.0); Chloride 103 meq/L (98-107); Glomerular Filtration Rate Greater Than 89 mL/min (>89); Glucose,Random 67 mg/dL (74-106); Sodium 135 meq/L (136-145)
[2018-11-06] MEDS: Insulin NovoLOG Aspart Correctional Sugar Inj SQ SCH ×4 (07:22→21:02)
[2018-11-06] MEDS: Gabapentin 300 MG Capsule PO SCH ×3 (08:12→17:37)
[2018-11-06] MEDS: Furosemide 20 MG Tablet PO SCH ×2 (08:12→20:59)
[2018-11-06] MEDS: Senna/Docusate Sodium 8.6/50 MG Tablet PO SCH ×2 (08:12→20:59)
[2018-11-06] MEDS: Azithromycin 250 MG Tablet PO SCH (08:12)
[2018-11-06] MEDS: Polysaccharide Iron Complex 150 MG Capsule PO SCH ×2 (08:12→20:59)
[2018-11-06] MEDS: Multivitamin/Minerals Therapeutic Tablet PO SCH (08:12)
[2018-11-06] MEDS: Heparin Central Flush 100 UNIT/ML 5 ML Vial IV.FLUSH SCH (08:13)
[2018-11-06] MEDS: Insulin Detemir Inj 1,000 UNIT/10 ML Vial SQ SCH ×2 (08:13→20:59)
[2018-11-06] MEDS: Sodium Chloride 0.9% 2 ML Flush BID IV.FLUSH SCH ×2 (08:13→21:00)
[2018-11-06] MEDS: Ramipril 5 MG Capsule PO SCH (08:14)
--- NOTE | 2018-11-06 09:14 | P.PNIM ---
Subjective Interval history: f/u; discitis in no acute distress. has some pain to the right shoulder. otherwise no other new complaints. Physical Exam Vital signs: Last Vital Signs Temp 97.6 F 11/06/18 00:00 Pulse 77 11/06/18 00:00 Resp 16 11/06/18 08:14 BP 106/61 11/06/18 00:00 Pulse Ox 100 11/06/18 00:00 Intake & Output 11/04/18 11/05/18 11/06/18 11/07/18 06:59 06:59 06:59 06:59 Intake Total 2040 / 2040 1260 / 1260 1500 / 1500 Output Total 2400 / 2400 1775 / 1775 2400 / 2400 Balance -360 / -360 -515 / -515 -900 / -900 Weight 81.3 kg 84.2 kg 95 kg Constitutional no acute distress Routine Respiratory Exam Present CTA bilaterally Routine Cardiovascular Exam Present RRR Routine Abdominal Exam Present soft Routine Extremities Exam Comments: no pedal edema. Routine Neurological Exam Present alert and oriented X3 Urinary Catheter Management Indwelling Urethral Catheter: Cath placed during this visit: yes, but has since been removed by the nurse Removal date: 10/05/18 Removal time: 09:30 Results Labs CBC & Chem 7: 11/06/18 05:55 11/06/18 05:55 Assessment and Plan Plan 1. Catheter related infection from PICC line. 2. Thrombus of the right upper extremity related to PICC line. 3. 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 Continue Micafungin for discitis and osteomyelitis. Anticipate 12 weeks of antifungal for discitis / osteomyelitis due to Portia stop date 01/04/2018(12) weeks. Continue Tigecycline until 01/21/18. follow LFTs, sed rate weekly. 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 Repeat MRI of the lumbar spine showed improved abscess and discitis per neurosurgery who recommended physical therapy to help with left lower extremity weakness. 4. 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 Switch to azithromycin by GIDEON velazquez 01/21/19 Followed by hand surgeon. Reportedly tendon was exposed. Suspected early or mild scapholunate associated collapse and dorsal intercalated segmental instability right wrist. Follow-up wrist MRI with possible infection versus inflammation per hand surgery favor inflammation. Elevated ESR and CRP. Rheumatoid factor and ANDRA negative. OT consult 5. S/p fall with L1 compression injury. Per neurosurgery conservative management with brace and physical therapy 6. VC paresis related to intubation. S/P ENT eval, expect slow recovery 7. thyroid nodule. US in 6 mos 8. ML [address]. CT in 6 mos 9. Atrial fibrillation currently rate-controlled. Ct Eliquis ( on hold for the planned procedure) and Diltiazem 10. HTN . Continue furosemide, Cardizem and clonidine increase her Monopril 11. Diabetes mellitus. A1c 7.8. Levemir 36 units units AM, and 25 units at bedtime, SSI with Accu-Cheks per protocol. Hypoglycemia protocol 12. Anemia of acute blood loss. stable - monitor H&H periodically. 13. right shoulder pain- MRI was reviewed-CT with possible osteomyelitis- ortho consulted; recommended non-op treatment and to continue with IV antibiotics. previoulsy d/w and recommended biopsy and culture from the right shoulder; IR consulted; plan for biopsy later today. 15. DVT prophylaxis: SCDs and eliquis ( on hold for the planned proceedure). Discharge Planning: home- - when cleared by ID - awaiting bone biopsy. Progress Note: Quality VTE Deep Vein Thrombosis/Pulmonary Embolism Present on Admission: No
[2018-11-06 09:57] LABS: Albumin 2.2 g/dL (3.4-5.0)
[2018-11-06 09:59] LABS: Total Protein 7.3 g/dL (6.4-8.2)
[2018-11-06] MEDS ORDERED: fentaNYL Citrate Inj 250 MCG/5 ML Ampul ONE (10:48)
[2018-11-06] MEDS: Micafungin Inj 150 MG in Sodium Chlor 0.9% Inj 100 ML IV.SIG SCH (13:46)
--- NOTE | 2018-11-06 15:22 | CT ---
EXAM DATE: 11/06/2018 12:23 PM EST AGE/SEX: 58 years / Male INDICATIONS: Right shoulder biopsy. CLINICAL DATA: This is the patient's initial encounter. Patient reports that signs and symptoms have been present for 1 day and indicates a pain score of 8/10. MEDICAL/SURGICAL HISTORY: Hypertension. Diabetes. Anemia. osteomy litis None. COMPARISON: No prior exams available for comparison. BIOPSY SITE: Right . shoulder MEDICATION(S): 5mg midazolam (Versed) IV 250mcg fentanyl (Sublimaze) IV DEVICE(S): 17 gauge BARD biopsy needle Two core specimen(s) sent to the laboratory for pathologic evaluation. . . PROCEDURE: CT guided Right . shoulder biopsy Conscious sedation with continuous EKG and oximetry monitoring. Prior to the procedure informed consent was obtained. Any appropriate prior imaging studies were rev iewed. Using automated exposure control and adjustment of the mA and/or kV according to patient size, radiat ion dose was kept as low as reasonably achievable to obtain optimal diagnostic quality images. DICOM format image data is available electronically for review and comparison. The site was prepped in a sterile fashion. Full sterile technique was used, including cap, mask, jerman rile gloves and gown and a large sterile sheet. Hand hygiene and 2% chlorhexidine and/or betadine/al cohol prep was utilized per protocol for cutaneous antisepsis. The skin and subcutaneous tissues wer e infiltrated with local anesthetic solution. With CT guidance the previously identified target was localized. Biopsy was performed using the presc ribed needle as above. Adequate hemostasis was obtained with compression at the puncture site. Follow-up CT scan reveals no hemorrhage. The patient tolerated the procedure well and there were no complications. The patient was returned to the Radiology Outpatient Unit in stable condition. FINDINGS: 2 passes were made into the osseous defect in superior right humeral head from a lateral approach to the deltoid muscle. Were made for both pathology and culture. CONCLUSION: 1. Uncomplicated CT guided biopsy. Electronically signed by: Robin Mendoza MD 11/06/2018 3:20 PM EST
[2018-11-06] MEDS: dilTIAZem CD 120 MG Capsule PO SCH (16:25)
[2018-11-07] MEDS: Baclofen 10 MG Tablet PO SCH ×3 (06:04→22:08)
[2018-11-07] MEDS: Insulin NovoLOG Aspart Correctional Sugar Inj SQ SCH ×4 (08:46→22:07)
[2018-11-07] MEDS: Heparin Central Flush 100 UNIT/ML 5 ML Vial IV.FLUSH SCH (09:06)
[2018-11-07] MEDS: Azithromycin 250 MG Tablet PO SCH (09:06)
[2018-11-07] MEDS: Senna/Docusate Sodium 8.6/50 MG Tablet PO SCH ×2 (09:06→21:09)
[2018-11-07] MEDS: Multivitamin/Minerals Therapeutic Tablet PO SCH (09:06)
[2018-11-07] MEDS: Furosemide 20 MG Tablet PO SCH ×2 (09:06→21:10)
[2018-11-07] MEDS: Gabapentin 300 MG Capsule PO SCH ×3 (09:07→17:58)
[2018-11-07] MEDS: Sodium Chloride 0.9% 2 ML Flush BID IV.FLUSH SCH ×2 (09:08→21:26)
[2018-11-07] MEDS: Ramipril 5 MG Capsule PO SCH (09:08)
[2018-11-07] MEDS: Polysaccharide Iron Complex 150 MG Capsule PO SCH ×2 (09:09→21:10)
[2018-11-07] MEDS: Insulin Detemir Inj 1,000 UNIT/10 ML Vial SQ SCH ×2 (10:45→21:10)
[2018-11-07] MEDS: Micafungin Inj 150 MG in Sodium Chlor 0.9% Inj 100 ML IV.SIG SCH (13:19)
--- NOTE | 2018-11-07 15:55 | P.PN ---
Subjective Interval history: Follow-up for diskitis with Portia infection and abnormal right shoulder CT scan. Patient is seen and examined resting in bed comfortably in no acute distress. He complains of back pain and left leg pain, states that the pain has "not gotten any better since I came in". He is requesting PT see him 7 days a week twice a week. He denies any fevers, cough, SOB, N/V/D, or chest pain. He does report chills. Physical Exam Vital signs: Vital Signs 11/06/18 16:00 11/06/18 17:28 11/06/18 18:28 Temperature 97.4 F L Pulse Rate 88 Respiratory Rate 18 16 18 Blood Pressure 111/57 L Pulse Oximetry 98 11/06/18 20:00 11/07/18 04:00 11/07/18 08:00 Temperature 100.7 F H 97.0 F L 97.4 F L Pulse Rate 100 H 73 66 Respiratory Rate 20 15 13 Blood Pressure 113/54 L 130/61 114/59 L Pulse Oximetry 100 100 100 11/07/18 12:00 Temperature 98 F Pulse Rate 67 Respiratory Rate 14 Blood Pressure 100/50 L Pulse Oximetry 100 Intake & Output 11/06/18 11/07/18 11/07/18 18:59 06:59 18:59 Intake Total 800 / 800 240 / 240 340 / 340 Output Total 600 / 600 400 / 400 Balance 800 / 800 -360 / -360 -60 / -60 Weight 83.5 kg Intake: IV 200 / 200 100 / 100 Mycamine Inj 150 MG In NS Inj 100 / 100 100 ML @ 100 mls/hr IV.SIG Q24H ROBBIE Rx#:[id number] Tygacil Inj 50 MG In NS Inj 100 100 / 100 100 / 100 ML @ 200 mls/hr IV.SIG Q12H ROBBIE Rx#:[id number] Oral 600 / 600 240 / 240 240 / 240 Output: Urine 600 / 600 400 / 400 Other: # Voids 9 Date of Last Bowel Movement 11/05/18 11/05/18 11/06/18 # Bowel Movements 6 0 Narrative: GENERAL: Well developed, well nourished male resting in bed in no acute distress. SKIN: Warm and dry. HEAD: Atraumatic. Normocephalic. EYES: Pupils equal and round. No scleral icterus. No injection or drainage. ENT: No nasal bleeding or discharge. Mucous membranes pink and moist. NECK: Trachea midline. CARDIOVASCULAR: Regular rate and rhythm. RESPIRATORY: No accessory muscle use. Clear to auscultation. Breath sounds equal bilaterally. GASTROINTESTINAL: Abdomen soft, non-tender, nondistended. +BS MUSCULOSKELETAL: Extremities without clubbing, cyanosis, or edema. No obvious deformities. LUE PICC line with dry and intact dressing. NEUROLOGICAL: Awake and alert. No obvious cranial nerve deficits. Motor grossly within normal limits. 5/5 muscle strength in bilateral upper extremities , 4/5 in bilateral lower extremities. Normal speech. PSYCHIATRIC: Appropriate mood and affect; insight and judgment normal. - Urinary Catheter Management Indwelling Urethral Catheter Cath placed during this visit: yes, but has since been removed by the nurse Reason for continuing: Decision to DC catheter Removal date: 10/05/18 Removal time: 09:30 Results - Labs CBC & Chem 7: 11/06/18 05:55 11/06/18 05:55 Laboratory Results - last 24 hr 11/06/18 11/06/18 11/07/18 16:27 21:01 08:39 POC Glucose 130 H 260 H 60 L 11/07/18 10:42 POC Glucose 86 Microbiology 11/06/18 11:45 Wound - Shoulder Gram Stain - Final 11/06/18 11:45 Wound - Shoulder Wound Culture - Preliminary No growth in 24 hours Assessment and Plan - Assessment (1) Abscess of hand, left Code(s): L02.512 - Cutaneous abscess of left hand Status: Acute (2) Hoarse voice quality Code(s): R49.0 - Dysphonia Status: Acute - Plan Patient is a 58-year-old male with PMH significant for HTN, HLD, GERD , a.fib anticoagulated on Eliquis, DM, and discitis of L4-L5 who had been recently discharged on 09/17 with right UE PICC for IV antibiotic infusion who returned to ED on 09/23 due to right UE swelling and PICC not working. 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 Wound culture obtained at left L4 pedicle; + for Portia albicans. - Recommendations to continue Micafungin for diskitis and OM, plan for 12 weeks 01/04/18. Continue Azithromycin 500mg p.o. until 01/21/18, Tigecycline until . -ID following greatly appreciate assistance. -Pain control with oral Dilaudid and Roxicodone. Continue Baclofen, Flexeril and gabapentin. -PT following. 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 - s/p exploration, wash, repair of wound dehiscence, left palm/ring finger on Right shoulder pain -Right shoulder CT destructive changes involving humeral head & acromion process. Concerns for OM. MRI with abnormal shoulder jointing including humerus and deltoid muscle. Concerns for inflammatory or neoplastic process. -Ortho. consulted, appreciate assistance. Recommend nonoperative approach with IV ABX. - s/p Right shoulder biopsy done by IR 11/06, pending bacteria, fungal, AFB, cultures and pathology -No complaints of shoulder pain today. Atrial fibrillation, rate-controlled - Restart Eliquis tonight, monitor for bleeding from shoulder biopsy site. - Continue Diltiazem - Monitor vitals HTN, controlled - Blood pressure controlled - Continue ramipril and furosemide. - BP on the low side, DC scheduled clonidine. - Continue to monitor and adjust meds as needed Diabetes mellitus - A1c 7.7 - Diabetic diet - SSI with Accu-Cheks per protocol - On Levemir 36 units in a.m. Levemir 25units HS. Hypoglycemic this morning with BS in 60's, decrease HS Levemir dose to 20 units. - Continue monitoring BS and adjust accordingly Voice hoarseness -ENT consulted, CT of neck with left supraclavicular adenopathy and multiple small thyroid nodules bilaterally. Chest CT with 7mm nodular opacity in right mid lobe, recommendations for surveillance in 6 months. - Recommendations for ST and follow-up as outpatient. Monitor left supraclavicular adenopathy, thyroid US in 6 months with PCP for thyroid nodules. Repeat chest CT in 6 months due to nodule. Microcytic hypochromic anemia/MARCI - Irons studies consistent with MARCI - Continue iron supplementation - H&H stable DVT prophylaxis-Pal Discussed Condition With: Patient and RN
[2018-11-07] MEDS: dilTIAZem CD 120 MG Capsule PO SCH (17:59)
[2018-11-07] MEDS: Heparin Central Flush 100 UNIT/ML 5 ML Vial IV.FLUSH PRN (21:27)
[2018-11-08] MEDS: Baclofen 10 MG Tablet PO SCH ×2 (06:23→16:03)
[2018-11-08] MEDS: Multivitamin/Minerals Therapeutic Tablet PO SCH (09:01)
[2018-11-08] MEDS: Furosemide 20 MG Tablet PO SCH (09:01)
[2018-11-08] MEDS: Sodium Chloride 0.9% 2 ML Flush BID IV.FLUSH SCH (09:02)
[2018-11-08] MEDS: Ramipril 5 MG Capsule PO SCH (09:02)
[2018-11-08] MEDS: Polysaccharide Iron Complex 150 MG Capsule PO SCH (09:02)
[2018-11-08] MEDS: Azithromycin 250 MG Tablet PO SCH (09:02)
[2018-11-08] MEDS: Senna/Docusate Sodium 8.6/50 MG Tablet PO SCH (09:02)
[2018-11-08] MEDS: Gabapentin 300 MG Capsule PO SCH ×3 (09:02→17:29)
[2018-11-08] MEDS: Insulin Detemir Inj 1,000 UNIT/10 ML Vial SQ SCH (09:37)
[2018-11-08] MEDS: Insulin NovoLOG Aspart Correctional Sugar Inj SQ SCH ×3 (09:37→17:28)
[2018-11-08] MEDS: Micafungin Inj 150 MG in Sodium Chlor 0.9% Inj 100 ML IV.SIG SCH (10:37)
[2018-11-08] MEDS: Heparin Central Flush 100 UNIT/ML 5 ML Vial IV.FLUSH SCH (12:50)
[2018-11-08] MEDS: dilTIAZem CD 120 MG Capsule PO SCH (16:03)
--- NOTE | 2018-11-08 16:08 | P.PN ---
Subjective Interval history: Follow-up visit for discitis, suspected right shoulder infection and pain. Patient is seen and examined resting in bed comfortably and appears to be in no acute distress. Asked how he is doing today in response, "cannot complain". He denies any fevers, chills, nausea, vomiting or diarrhea. Reports that his shoulder pain has not gotten better but has not gotten worse either. He voices no other acute concerns at the moment. Physical Exam Vital signs: Vital Signs 11/07/18 20:00 11/08/18 00:00 11/08/18 04:00 Temperature 99.5 F 96.6 F L 97.6 F Pulse Rate 86 80 79 Respiratory Rate 20 18 20 Blood Pressure 111/53 L 130/60 114/73 Pulse Oximetry 96 99 100 11/08/18 08:00 11/08/18 12:00 Temperature 98.3 F 98.6 F Pulse Rate 70 69 Respiratory Rate 18 18 Blood Pressure 113/69 114/58 L Pulse Oximetry 100 100 Intake & Output 11/07/18 11/08/18 11/08/18 18:59 06:59 18:59 Intake Total 820 / 820 440 / 440 100 / 100 Output Total 850 / 850 600 / 600 Balance -30 / -30 -160 / -160 100 / 100 Intake: IV 100 / 100 200 / 200 100 / 100 Mycamine Inj 150 MG In NS Inj 100 / 100 100 ML @ 100 mls/hr IV.SIG Q24H ROBBIE Rx#:[id number] Tygacil Inj 50 MG In NS Inj 100 100 / 100 100 / 100 100 / 100 ML @ 200 mls/hr IV.SIG Q12H ROBBIE Rx#:[id number] Oral 720 / 720 240 / 240 Output: Urine 850 / 850 600 / 600 Other: # Voids 4 Date of Last Bowel Movement 11/06/18 11/07/18 11/07/18 Narrative: GENERAL: Well developed, well nourished male resting in bed in no acute distress. SKIN: Warm and dry. HEAD: Atraumatic. Normocephalic. EYES: Pupils equal and round. ENT: No nasal bleeding or discharge. Mucous membranes pink and moist. NECK: Trachea midline. CARDIOVASCULAR: Regular rate and rhythm. RESPIRATORY: No accessory muscle use. Clear to auscultation. Breath sounds equal bilaterally. GASTROINTESTINAL: Abdomen soft, non-tender, nondistended. +BS MUSCULOSKELETAL: Extremities without clubbing, cyanosis, or edema. No obvious deformities. LUE PICC line with dry and intact dressing. NEUROLOGICAL: Awake and alert. No obvious cranial nerve deficits. Motor grossly within normal limits. 5/5 muscle strength in bilateral upper extremities , 4/5 in bilateral lower extremities. Normal speech. PSYCHIATRIC: Appropriate mood and affect; insight and judgment normal. - Urinary Catheter Management Indwelling Urethral Catheter Cath placed during this visit: yes, but has since been removed by the nurse Reason for continuing: Decision to DC catheter Removal date: 10/05/18 Removal time: 09:30 Results - Labs CBC & Chem 7: 11/06/18 05:55 11/06/18 05:55 Laboratory Results - last 24 hr 11/07/18 11/07/18 11/08/18 17:00 20:55 09:15 POC Glucose 214 H 104 168 H 11/08/18 13:02 POC Glucose 71 Microbiology 11/06/18 11:45 Abscess - Shoulder Acid Fast Bacilli Smear - Final No acid fast bacilli seen 10/04/18 16:56 Tissue - Other Acid Fast Bacilli Smear - Final No acid fast bacilli seen 10/04/18 16:56 Tissue - Other Mycobacterial Culture - Preliminary No growth in 5 weeks 10/04/18 16:05 Wound - Other Acid Fast Bacilli Smear - Final No acid fast bacilli seen 10/04/18 16:05 Wound - Other Mycobacterial Culture - Preliminary No growth in 5 weeks 10/04/18 16:05 Wound - Other Acid Fast Bacilli Smear - Final No acid fast bacilli seen 10/04/18 16:05 Wound - Other Mycobacterial Culture - Preliminary No growth in 5 weeks 11/06/18 11:45 Abscess - Shoulder Fungal Smear - Final No fungal elements seen 11/06/18 11:45 Wound - Shoulder Gram Stain - Final 11/06/18 11:45 Wound - Shoulder Wound Culture - Preliminary Assessment and Plan - Assessment (1) Abscess of hand, left Code(s): L02.512 - Cutaneous abscess of left hand Status: Acute (2) Hoarse voice quality Code(s): R49.0 - Dysphonia Status: Acute - Plan Patient is a 58-year-old male with PMH significant for HTN, HLD, GERD , a.fib anticoagulated on Eliquis, DM, and discitis of L4-L5 who had been recently discharged on 09/17 with right UE PICC for IV antibiotic infusion who returned to ED on 09/23 due to right UE swelling and PICC not working. 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 Wound culture obtained at left L4 pedicle; + for Portia albicans. - Recommendations to continue Micafungin for diskitis and OM, plan for 12 weeks 01/04/18. Continue Azithromycin 500mg p.o. until 01/21/18, Tigecycline until . -ID following greatly appreciate assistance. -Pain control with oral Dilaudid and Roxicodone. Continue Baclofen, Flexeril and gabapentin. -PT following. 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 - s/p exploration, wash, repair of wound dehiscence, left palm/ring finger on Right shoulder pain -Right shoulder CT destructive changes involving humeral head & acromion process. Concerns for OM. MRI with abnormal shoulder jointing including humerus and deltoid muscle. Concerns for inflammatory or neoplastic process. -Ortho. consulted, appreciate assistance. Recommend nonoperative approach with IV ABX. - s/p Right shoulder biopsy done by IR 11/06, pending bacteria, fungal, AFB, cultures. Pathology report with fibroadipose tissue and non-organized blood coagulum. -Pain is stable. Atrial fibrillation, rate-controlled - Restart Eliquis tonight, monitor for bleeding from shoulder biopsy site. - Continue Diltiazem - Monitor vitals HTN, controlled - Blood pressure controlled - Continue ramipril and furosemide. - BP stable off scheduled Clonidine. - Continue to monitor and adjust meds as needed Diabetes mellitus - A1c 7.7 - Diabetic diet - SSI with Accu-Cheks per protocol -Recent hypoglycemic episode, continue Levemir 36 units in the a.m. and Levemir 20 units at bedtime. - Continue monitoring BS and adjust accordingly Voice hoarseness -ENT consulted, CT of neck with left supraclavicular adenopathy and multiple small thyroid nodules bilaterally. Chest CT with 7mm nodular opacity in right mid lobe, recommendations for surveillance in 6 months. - Recommendations for ST and follow-up as outpatient. Monitor left supraclavicular adenopathy, thyroid US in 6 months with PCP for thyroid nodules. Repeat chest CT in 6 months due to nodule. Microcytic hypochromic anemia/MARCI - Irons studies consistent with MRACI - Continue iron supplementation - H&H stable DVT prophylaxis-Pal Discussed Condition With: Patient and RN
[2018-11-09] MEDS: Baclofen 10 MG Tablet PO SCH ×4 (00:15→22:26)
[2018-11-09] MEDS: Polysaccharide Iron Complex 150 MG Capsule PO SCH ×3 (00:16→22:26)
[2018-11-09] MEDS: Furosemide 20 MG Tablet PO SCH ×3 (00:16→22:25)
[2018-11-09] MEDS: Insulin Detemir Inj 1,000 UNIT/10 ML Vial SQ SCH ×3 (00:17→22:25)
[2018-11-09] MEDS: Sodium Chloride 0.9% 2 ML Flush BID IV.FLUSH SCH ×3 (00:23→22:25)
[2018-11-09] MEDS: Insulin NovoLOG Aspart Correctional Sugar Inj SQ SCH ×5 (00:23→22:25)
[2018-11-09] MEDS: Senna/Docusate Sodium 8.6/50 MG Tablet PO SCH ×3 (00:24→22:26)
[2018-11-09] MEDS: Heparin Central Flush 100 UNIT/ML 5 ML Vial IV.FLUSH SCH (10:39)
[2018-11-09] MEDS: Gabapentin 300 MG Capsule PO SCH ×3 (10:40→18:37)
[2018-11-09] MEDS: Azithromycin 250 MG Tablet PO SCH (10:40)
[2018-11-09] MEDS: Multivitamin/Minerals Therapeutic Tablet PO SCH (10:40)
[2018-11-09] MEDS: Ramipril 5 MG Capsule PO SCH (10:43)
[2018-11-09] MEDS: Micafungin Inj 150 MG in Sodium Chlor 0.9% Inj 100 ML IV.SIG SCH (10:44)
--- NOTE | 2018-11-09 15:58 | P.PNIM ---
Subjective Interval history: Patient is seen sitting up on end of bed eating take out from [employer]. Tells me that he is feeling much better and would like to get out of here. Says that he can do his antibiotics at home because he has done this at least "14 times before". No chest pain or shortness of breath. No fever or chills. No nausea vomiting or shoulder pain has improved. Physical Exam Vital signs: Last Vital Signs Temp 98.5 F 11/09/18 12:00 Pulse 76 11/09/18 12:00 Resp 14 11/09/18 12:00 BP 129/65 11/09/18 12:00 Pulse Ox 99 11/09/18 12:00 Intake & Output 11/07/18 11/08/18 11/09/18 11/10/18 06:59 06:59 06:59 06:59 Intake Total 1040 / 1040 1260 / 1260 2250 / 2250 Output Total 600 / 600 1450 / 1450 1780 / 1780 Balance 440 / 440 -190 / -190 470 / 470 Weight 83.5 kg Narrative: GENERAL: Well developed, well nourished male resting in bed in no acute distress. SKIN: Warm and dry. HEAD: Atraumatic. Normocephalic. CARDIOVASCULAR: Regular rate and rhythm. RESPIRATORY: No accessory muscle use. Clear to auscultation. Breath sounds equal bilaterally. GASTROINTESTINAL: Abdomen soft, non-tender, nondistended. +BS MUSCULOSKELETAL: Extremities without clubbing, cyanosis, or edema. No obvious deformities. LUE PICC line with dry and intact dressing. NEUROLOGICAL: Awake and alert. No obvious cranial nerve deficits. Normal speech. PSYCHIATRIC: Appropriate mood and affect; insight and judgment normal. Urinary Catheter Management Indwelling Urethral Catheter: Cath placed during this visit: yes, but has since been removed by the nurse Removal date: 10/05/18 Removal time: 09:30 Results Labs CBC & Chem 7: 11/06/18 05:55 11/06/18 05:55 Labs: Microbiology 11/06/18 11:45 Wound - Shoulder Gram Stain - Final 11/06/18 11:45 Wound - Shoulder Wound Culture - Preliminary 11/06/18 11:45 Abscess - Shoulder Acid Fast Bacilli Smear - Final No acid fast bacilli seen 10/04/18 16:56 Tissue - Other Acid Fast Bacilli Smear - Final No acid fast bacilli seen 10/04/18 16:56 Tissue - Other Mycobacterial Culture - Preliminary No growth in 5 weeks 10/04/18 16:05 Wound - Other Acid Fast Bacilli Smear - Final No acid fast bacilli seen 10/04/18 16:05 Wound - Other Mycobacterial Culture - Preliminary No growth in 5 weeks 10/04/18 16:05 Wound - Other Acid Fast Bacilli Smear - Final No acid fast bacilli seen 10/04/18 16:05 Wound - Other Mycobacterial Culture - Preliminary No growth in 5 weeks 11/06/18 11:45 Abscess - Shoulder Fungal Smear - Final No fungal elements seen Assessment and Plan (1) Abscess of hand, left: Code(s): L02.512 - Cutaneous abscess of left hand Status: Acute (2) Hoarse voice quality: Code(s): R49.0 - Dysphonia Status: Acute Plan Patient is a 58-year-old male with PMH significant for HTN, HLD, GERD , a.fib anticoagulated on Eliquis, DM, and discitis of L4-L5 who had been recently discharged on 09/17 with right UE PICC for IV antibiotic infusion who returned to ED on 09/23 due to right UE swelling and PICC not working. 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 Wound culture obtained at left L4 pedicle; + for Portia albicans. - Recommendations to continue Micafungin for diskitis and OM, plan for 12 weeks 01/04/18. Continue Azithromycin 500mg p.o. until 01/21/18, Tigecycline until . -ID following greatly appreciate assistance. -Pain control with oral Dilaudid and Roxicodone. Continue Baclofen, Flexeril and gabapentin. -PT following. 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 - s/p exploration, wash, repair of wound dehiscence, left palm/ring finger on Right shoulder pain -Right shoulder CT destructive changes involving humeral head & acromion process. Concerns for OM. MRI with abnormal shoulder jointing including humerus and deltoid muscle. Concerns for inflammatory or neoplastic process. -Ortho. consulted, appreciate assistance. Recommend nonoperative approach with IV ABX. - s/p Right shoulder biopsy done by IR 11/06, pending bacteria, fungal, AFB, cultures. Pathology report with fibroadipose tissue and non-organized blood coagulum. -Pain is stable. Atrial fibrillation, rate-controlled - Restart Eliquis tonight, monitor for bleeding from shoulder biopsy site. - Continue Diltiazem - Monitor vitals HTN, controlled - Blood pressure controlled - Continue ramipril and furosemide. - BP stable off scheduled Clonidine. - Continue to monitor and adjust meds as needed Diabetes mellitus - A1c 7.7 - Diabetic diet - SSI with Accu-Cheks per protocol -Recent hypoglycemic episode, continue Levemir 36 units in the a.m. and Levemir 20 units at bedtime. - Continue monitoring BS and adjust accordingly Voice hoarseness -ENT consulted, CT of neck with left supraclavicular adenopathy and multiple small thyroid nodules bilaterally. Chest CT with 7mm nodular opacity in right mid lobe, recommendations for surveillance in 6 months. - Recommendations for ST and follow-up as outpatient. Monitor left supraclavicular adenopathy, thyroid US in 6 months with PCP for thyroid nodules. Repeat chest CT in 6 months due to nodule. Microcytic hypochromic anemia/MARCI - Irons studies consistent with MARCI - Continue iron supplementation - H&H stable DVT prophylaxis-Pal Discussed Condition With: Patient and RN Progress Note: Quality VTE Deep Vein Thrombosis/Pulmonary Embolism Present on Admission: No
[2018-11-09] MEDS: dilTIAZem CD 120 MG Capsule PO SCH (18:37)
[2018-11-10] MEDS: Sodium Chloride 0.9% 2 ML Flush PRN IV.FLUSH (06:21)
[2018-11-10] MEDS: Baclofen 10 MG Tablet PO SCH ×3 (06:21→21:31)
[2018-11-10] MEDS: Heparin Central Flush 100 UNIT/ML 5 ML Vial IV.FLUSH PRN ×2 (06:21→21:41)
[2018-11-10] MEDS: Gabapentin 300 MG Capsule PO SCH ×3 (09:11→17:52)
[2018-11-10] MEDS: Senna/Docusate Sodium 8.6/50 MG Tablet PO SCH ×2 (09:11→21:31)
[2018-11-10] MEDS: Azithromycin 250 MG Tablet PO SCH (09:12)
[2018-11-10] MEDS: Multivitamin/Minerals Therapeutic Tablet PO SCH (09:13)
[2018-11-10] MEDS: Furosemide 20 MG Tablet PO SCH ×2 (09:13→21:31)
[2018-11-10] MEDS: Heparin Central Flush 100 UNIT/ML 5 ML Vial IV.FLUSH SCH (09:13)
[2018-11-10] MEDS: Polysaccharide Iron Complex 150 MG Capsule PO SCH ×2 (09:13→21:31)
[2018-11-10] MEDS: Insulin Detemir Inj 1,000 UNIT/10 ML Vial SQ SCH ×2 (09:14→21:41)
[2018-11-10] MEDS: Insulin NovoLOG Aspart Correctional Sugar Inj SQ SCH ×4 (09:15→21:41)
[2018-11-10] MEDS: Sodium Chloride 0.9% 2 ML Flush BID IV.FLUSH SCH ×2 (09:15→21:32)
[2018-11-10] MEDS: Ramipril 5 MG Capsule PO SCH (09:16)
[2018-11-10] MEDS: Micafungin Inj 150 MG in Sodium Chlor 0.9% Inj 100 ML IV.SIG SCH (11:54)
--- NOTE | 2018-11-10 16:08 | P.PNIM ---
Subjective Interval history: Patient is seen sitting on end of bed in room. He has no new complaints. Reiterates that he would like to do outpatient IV therapy. Nursing reports no adverse events. Physical Exam Vital signs: Last Vital Signs Temp 98.3 F 11/10/18 12:00 Pulse 75 11/10/18 12:00 Resp 16 11/10/18 12:00 BP 120/59 L 11/10/18 12:00 Pulse Ox 100 11/10/18 12:00 Intake & Output 11/08/18 11/09/18 11/10/18 11/11/18 06:59 06:59 06:59 06:59 Intake Total 1260 / 1260 2250 / 2250 680 / 680 100 / 100 Output Total 1450 / 1450 1780 / 1780 950 / 950 Balance -190 / -190 470 / 470 -270 / -270 100 / 100 Narrative: GENERAL: Well developed, well nourished male resting in bed in no acute distress. SKIN: Warm and dry. Gauze dressing to left hand -no drainage or surrounding erythema. HEAD: Atraumatic. Normocephalic. CARDIOVASCULAR: Regular rate and rhythm. RESPIRATORY: No accessory muscle use. Clear to auscultation. Breath sounds equal bilaterally. GASTROINTESTINAL: Abdomen soft, non-tender, nondistended. +BS MUSCULOSKELETAL: Extremities without clubbing, cyanosis, or edema. No obvious deformities. LUE PICC line with dry and intact dressing. NEUROLOGICAL: Awake and alert. No obvious cranial nerve deficits. Normal speech. PSYCHIATRIC: Appropriate mood and affect; insight and judgment normal. Urinary Catheter Management Indwelling Urethral Catheter: Cath placed during this visit: yes, but has since been removed by the nurse Removal date: 10/05/18 Removal time: 09:30 Results Labs CBC & Chem 7: 11/06/18 05:55 11/06/18 05:55 Labs: Microbiology 11/06/18 11:45 Wound - Shoulder Gram Stain - Final 11/06/18 11:45 Wound - Shoulder Wound Culture - Preliminary Assessment and Plan (1) Abscess of hand, left: Code(s): L02.512 - Cutaneous abscess of left hand Status: Acute (2) Hoarse voice quality: Code(s): R49.0 - Dysphonia Status: Acute Plan Patient is a 58-year-old male with PMH significant for HTN, HLD, GERD , a.fib anticoagulated on Eliquis, DM, and discitis of L4-L5 who had been recently discharged on 09/17 with right UE PICC for IV antibiotic infusion who returned to ED on 09/23 due to right UE swelling and PICC not working. 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 Wound culture obtained at left L4 pedicle; + for Portia albicans. - Recommendations to continue Micafungin for diskitis and OM, plan for 12 weeks 01/04/18. Continue Azithromycin 500mg p.o. until 01/21/18, Tigecycline until . -ID following greatly appreciate assistance. -Pain control with oral Dilaudid and Roxicodone. Continue Baclofen, Flexeril and gabapentin. -PT following. 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 - s/p exploration, wash, repair of wound dehiscence, left palm/ring finger on Right shoulder pain -Right shoulder CT destructive changes involving humeral head & acromion process. Concerns for OM. MRI with abnormal shoulder jointing including humerus and deltoid muscle. Concerns for inflammatory or neoplastic process. -Ortho. consulted, appreciate assistance. Recommend nonoperative approach with IV ABX. - s/p Right shoulder biopsy done by IR 11/06, pending bacteria, fungal, AFB, cultures. Pathology report with fibroadipose tissue and non-organized blood coagulum. -Pain is stable. Atrial fibrillation, rate-controlled - Restart Eliquis tonight, monitor for bleeding from shoulder biopsy site. - Continue Diltiazem - Monitor vitals HTN, controlled - Blood pressure controlled - Continue ramipril and furosemide. - BP stable off scheduled Clonidine. - Continue to monitor and adjust meds as needed Diabetes mellitus - A1c 7.7 - Diabetic diet - SSI with Accu-Cheks per protocol -Recent hypoglycemic episode, continue Levemir 36 units in the a.m. and Levemir 20 units at bedtime. - Continue monitoring BS and adjust accordingly Voice hoarseness -ENT consulted, CT of neck with left supraclavicular adenopathy and multiple small thyroid nodules bilaterally. Chest CT with 7mm nodular opacity in right mid lobe, recommendations for surveillance in 6 months. - Recommendations for ST and follow-up as outpatient. Monitor left supraclavicular adenopathy, thyroid US in 6 months with PCP for thyroid nodules. Repeat chest CT in 6 months due to nodule. Microcytic hypochromic anemia/MARCI - Irons studies consistent with MARCI - Continue iron supplementation - H&H stable DVT prophylaxis-Pal Discussed Condition With: Patient and RN Progress Note: Quality VTE Deep Vein Thrombosis/Pulmonary Embolism Present on Admission: No
[2018-11-10] MEDS: dilTIAZem CD 120 MG Capsule PO SCH (17:53)
[2018-11-11] MEDS: Baclofen 10 MG Tablet PO SCH ×3 (05:01→21:16)
[2018-11-11] MEDS: Sodium Chloride 0.9% 2 ML Flush PRN IV.FLUSH (05:02)
[2018-11-11 08:29] LABS: Baso # (Auto) 0.1 th/mm3 (0.0-0.2); Baso % (Auto) 0.8 % (0.0-2.0); Eos # (Auto) 0.3 th/mm3 (0.0-0.4); Hematocrit 25.2 % (39.0-51.0); Hemoglobin 8.5 gm/dL (13.0-17.0); Lymph # (Auto) 1.9 th/mm3 (1.0-4.8); Lymph % (Auto) 14.1 % (9.0-44.0); Mean Corpuscular HGB Conc 33.8 % (32.0-36.0); Mean Corpuscular Volume 73.8 fL (80.0-100.0); Mean Platelet Volume 6.6 fL (7.0-11.0); Mono # (Auto) 1.1 th/mm3 (0.0-0.9); Neut # (Auto) 10.1 th/mm3 (1.8-7.7); Neut % (Auto) 75.1 % (16.0-70.0); Platelet Count 390 th/mm3 (150-450); Red Blood Count 3.41 mil/mm3 (4.50-5.90); Red Cell Distribution Width 16.3 % (11.6-17.2); White Blood Count 13.4 th/mm3 (4.0-11.0)
[2018-11-11 08:47] LABS: Anion Gap 7 meq/L (5-15); Blood Urea Nitrogen 21 mg/dL (7-18); Calcium 8.2 mg/dL (8.5-10.1); Carbon Dioxide 25.3 meq/L (21.0-32.0); Chloride 101 meq/L (98-107); Glomerular Filtration Rate Greater Than 89 mL/min (>89); Glucose,Random 98 mg/dL (74-106); Potassium 4.1 meq/L (3.5-5.1); Sodium 133 meq/L (136-145)
[2018-11-11] MEDS: Azithromycin 250 MG Tablet PO SCH (09:26)
[2018-11-11] MEDS: Multivitamin/Minerals Therapeutic Tablet PO SCH (09:26)
[2018-11-11] MEDS: Insulin NovoLOG Aspart Correctional Sugar Inj SQ SCH ×4 (09:26→21:16)
[2018-11-11] MEDS: Furosemide 20 MG Tablet PO SCH ×2 (09:26→20:57)
[2018-11-11] MEDS: Polysaccharide Iron Complex 150 MG Capsule PO SCH ×2 (09:27→20:56)
[2018-11-11] MEDS: Senna/Docusate Sodium 8.6/50 MG Tablet PO SCH ×2 (09:27→20:57)
[2018-11-11] MEDS: Gabapentin 300 MG Capsule PO SCH ×3 (09:28→17:01)
[2018-11-11] MEDS: Sodium Chloride 0.9% 2 ML Flush BID IV.FLUSH SCH ×2 (09:28→20:57)
[2018-11-11] MEDS: Insulin Detemir Inj 1,000 UNIT/10 ML Vial SQ SCH ×2 (10:17→21:16)
[2018-11-11] MEDS: Ramipril 5 MG Capsule PO SCH (10:18)
[2018-11-11] MEDS: Heparin Central Flush 100 UNIT/ML 5 ML Vial IV.FLUSH SCH (10:19)
[2018-11-11] MEDS: Micafungin Inj 150 MG in Sodium Chlor 0.9% Inj 100 ML IV.SIG SCH (10:54)
--- NOTE | 2018-11-11 14:54 | P.PNID ---
Subjective Remarks: Notes reviewed. Patient is awake and alert. States that he feels better. Says that he is moving more and ambulating with a walker. Notes improvement in the left thigh pain which she was experiencing before. No fever. No chills. Antibiotics: Azithromycin Micafungin Tigecycline Lines: PICC line without evidence of infection. 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 Allergies/Adverse Reactions: Allergies No Known Drug Allergies Allergy (Verified 08/06/18 15:59) none *MDRO Multi-Drug Resistant Organism Adverse Reaction (Unknown, Uncoded 06/16/17 16:34) MRSA MRSA (foot wound) - 02/12/15, 11/12/16, 03/29/17; (toe) - 03/2016 Objective Vital Signs 11/10/18 16:00 11/10/18 17:50 11/10/18 17:51 Temperature 98.5 F Pulse Rate 84 Respiratory Rate 16 18 18 Blood Pressure 127/61 Pulse Oximetry 100 11/10/18 18:28 11/10/18 20:00 11/10/18 23:34 Temperature Pulse Rate 92 H Respiratory Rate 18 16 16 Blood Pressure 111/54 L Pulse Oximetry 98 11/11/18 00:00 11/11/18 04:00 11/11/18 08:00 Temperature 100.0 F H 98.5 F 98.3 F Pulse Rate 102 H 98 H 87 Respiratory Rate 17 18 18 Blood Pressure 109/53 L 123/58 L 123/60 Pulse Oximetry 100 100 100 11/11/18 12:00 Temperature 96.3 F L Pulse Rate 75 Respiratory Rate 14 Blood Pressure 116/57 L Pulse Oximetry Intake & Output 11/10/18 11/11/18 11/11/18 18:59 06:59 18:59 Intake Total 2140 / 2140 700 / 700 100 / 100 Output Total 775 / 775 900 / 900 Balance 1365 / 1365 -200 / -200 100 / 100 Weight 90 kg Intake: IV 300 / 300 100 / 100 100 / 100 Mycamine Inj 150 MG In NS Inj 100 / 100 100 / 100 100 ML @ 100 mls/hr IV.SIG Q24H ROBBIE Rx#:[id number] Tygacil Inj 50 MG In NS Inj 100 200 / 200 100 / 100 ML @ 200 mls/hr IV.SIG Q12H ROBBIE Rx#:[id number] Oral 1840 / 1840 600 / 600 Output: Urine 775 / 775 900 / 900 Other: # Voids 3 Date of Last Bowel Movement 11/08/18 11/10/18 # Bowel Movements 1 11/06/18 11:45 Wound - Shoulder Gram Stain - Final 11/06/18 11:45 Wound - Shoulder Wound Culture - Preliminary 11/06/18 11:45 Abscess - Shoulder Acid Fast Bacilli Smear - Final No acid fast bacilli seen 11/06/18 11:45 Abscess - Shoulder Mycobacterial Culture - Pending 10/04/18 16:56 Tissue - Other Acid Fast Bacilli Smear - Final No acid fast bacilli seen 10/04/18 16:56 Tissue - Other Mycobacterial Culture - Preliminary No growth in 5 weeks 10/04/18 16:05 Wound - Other Acid Fast Bacilli Smear - Final No acid fast bacilli seen 10/04/18 16:05 Wound - Other Mycobacterial Culture - Preliminary No growth in 5 weeks 10/04/18 16:05 Wound - Other Acid Fast Bacilli Smear - Final No acid fast bacilli seen 10/04/18 16:05 Wound - Other Mycobacterial Culture - Preliminary No growth in 5 weeks 11/06/18 11:45 Abscess - Shoulder Fungal Smear - Final No fungal elements seen 11/06/18 11:45 Abscess - Shoulder Fungal Culture - Pending Lab - Hematology Results 11/11/18 07:55 WBC 13.4 H RBC 3.41 L Hgb 8.5 L Hct 25.2 L MCV 73.8 L MCH 25.0 L MCHC 33.8 RDW 16.3 Plt Count 390 MPV 6.6 L Neut % (Auto) 75.1 H Lymph % (Auto) 14.1 [place] % (Auto) 8.0 Eos % (Auto) 2.0 Baso % (Auto) 0.8 Neut # (Auto) 10.1 H Lymph # (Auto) 1.9 [place] # (Auto) 1.1 H Eos # (Auto) 0.3 Baso # (Auto) 0.1 WBC Differential . Differential Comment Auto diff final Lab - Chemistry Results 11/09/18 11/09/18 11/10/18 17:28 21:40 08:12 Sodium Potassium Chloride Carbon Dioxide Anion Gap BUN Creatinine Estimated GFR POC Glucose 143 H 160 H 169 H Random Glucose Calcium 11/10/18 11/10/18 11/10/18 12:09 17:50 21:37 Sodium Potassium Chloride Carbon Dioxide Anion Gap BUN Creatinine Estimated GFR POC Glucose 124 H 233 H 198 H Random Glucose Calcium 11/11/18 11/11/18 11/11/18 07:55 09:25 13:04 Sodium 133 L Potassium 4.1 Chloride 101 Carbon Dioxide 25.3 Anion Gap 7 BUN 21 H Creatinine 0.71 Estimated GFR Greater than 89 POC Glucose 108 71 Random Glucose 98 Calcium 8.2 L Imaging: ITS Impressions Venous Doppler Study 09/23/18 13:35 CONCLUSION: 1. Occlusive thrombus in the proximal and mid cephalic vein. 2. Deep venous system is otherwise patent. 3. Heterogeneous hypoechoic collection along the right shoulder which could represent a hematoma and/or seroma. Chest CT 10/15/18 00:00 CONCLUSION: 1. 7 mm nodular opacity in the right middle lobe: Surveillance recommended with follow-up scan in 6 months. 2. Mild interstitial prominence which may be inflammatory. 3. No evidence of consolidating airspace disease or pleural effusions. Soft Tissue Neck CT 10/15/18 00:00 CONCLUSION: 1. Left supraclavicular adenopathy. 2. Multiple small thyroid nodules bilaterally. Chest X-Ray 10/18/18 16:16 CONCLUSION: No acute cardiopulmonary disease. There is no definite evidence of pneumonia. Lumbar Spine X-Ray 10/20/18 00:00 CONCLUSION: 1. A suspected new/acute, mild compression fracture of L1. No retropulsed fragments are seen. 2. Recent postop fusion from L2 through S1 without evidence of an acute complication in the operative region. Wrist X-Ray 10/20/18 00:00 CONCLUSION: 1. No acute fracture or acute appearing malalignment of the right wrist. 2. Suspected early or mild scapholunate associated collapse and dorsal intercalated segmental instability. 3. 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 Lumbar Spine CT 10/21/18 00:00 CONCLUSION: 1. There has been interval fusion from L2 down to S1. There is minimal anterolisthesis of L4 on L5. There has been previous laminectomy at L4 and L5. 2. Destructive changes in the L4-5 endplates consistent with patient's history of previous discitis. There is paraspinous soft tissue extending from L4 down to S1. This is similar compared to previous exam. 3. There is a small amount of gas within the subcutaneous soft tissues at the L2 level. There are skin dilshad in place. 4. Individual levels are dictated in detail above. Wrist MRI 10/21/18 00:00 CONCLUSION: 1. Elongated subcutaneous fluid collection at the level of the distal radius with rim enhancement and potentially an abscess in the proper clinical setting. A focally thrombosed vessel would be conceivable. This collection does not appear to be within the tendon sheaths of adjacent extensor compartments 3 or 4. No intrinsic flexor or extensor tendon abnormality demonstrated. 2. Effusion and severe synovitis of the distal radioulnar joint and also synovitis in the prestyloid region. This is nonspecific; infectious and inflammatory etiologies are in the differential. If the distal radioulnar joint is infected, there are signal changes of the distal ulna that would be concerning for osteomyelitis. 3. DISI and SLAC wrist. Radial sided osteoarthritis. There is marrow edema of the scaphoid, mostly the distal half of the bone that is nonspecific but presumably reactive. 4. Mild to moderate osteoarthritis with subchondral cystic change of the lunotriquetral joint. This is underestimated radiographically. Lumbar Spine MRI 10/27/18 00:00 CONCLUSION: 1. Interval posterior fusion at L2-S1. 2. Persistent endplate destructive changes at L4-5 with significantly improved epidural abscess. 3. There is improved but persistent peripherally enhancing fluid signal in the L4-5 disc space extending anteriorly to the prevertebral soft tissues. Findings are concerning for recurrent/residual discitis and prevertebral phlegmon. Shoulder X-Ray 10/31/18 00:00 CONCLUSION: Faint calcification adjacent to the greater tubercle likely related to calcific tendinitis/hydroxyapatite deposition. High right humeral head which can be seen with rotator cuff abnormality. Chronic hypertrophic change seen lateral to the acromion. Shoulder MRI 11/01/18 00:00 CONCLUSION: 1. Markedly abnormal shoulder joint including humerus and deltoid muscle. Considerations would include both an inflammatory and neoplastic process. Shoulder CT 11/02/18 00:00 CONCLUSION: 1. Destructive changes are seen involving the humeral head and acromion process as described above. This is concerning for osteomyelitis and involves the humerus and acromion. A neoplastic process is felt less likely but not entirely excluded. Bone Biopsy CT 11/06/18 08:48 CONCLUSION: 1. Uncomplicated CT guided biopsy. Physical Exam: PHYSICAL EXAMINATION: GENERAL: No acute distress. HEENT: Head atraumatic. Extraocular movements grossly intact. Pupils reactive to light, without icterus. Oropharynx: Moist mucosa. No visible lesions. No thrush. NECK: Supple without adenopathy or swelling. LUNGS: Breath sounds decreased. HEART: Regular S1, S2, without murmurs, rubs or gallops. ABDOMEN: Bowel sounds present; flat, soft, non tender. EXTREMITIES: Decreased range of motion. Of the right shoulder. No clubbing or cyanosis or edema. SKIN: No rash. Skin is warm and moist. NEUROLOGIC: Nonfocal. Weakness at the left lower extremity. PSYCHIATRIC: Calm. Assessment and Plan - Plan ASSESSMENT AND PLAN: 1. Catheter related infection from PICC line. Cultures were negative. Patient has new PICC line. 2. Thrombus of the right upper extremity related to PICC line. 3. 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 Sedimentation rate has decreased. 4. 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 Followed by hand surgeon. Reportedly tendon was exposed. 5. Chronic pain. 6. Right shoulder lesion. Status post biopsy. Negative cultures. New right shoulder pain and lesion noted on MRI and CT scan. Questionable infection. RECOMMENDATIONS: 1. Continue Micafungin for discitis and osteomyelitis. Plan for 12 weeks of antifungal for discitis / osteomyelitis due to Portia. until 01/04/2019(12) weeks. 2. Continue azithromycin 500mg PO daily until 01/21/2019. 3. Continue Tigecycline until 01/21/2019 The Tigecycline should cover gram-positive organisms in addition to Mycobacterium abscessus. The prior rash could have been secondary to cefoxitin. Patient is cleared for discharge from ID standpoint with the above antibiotics. Follow-up with Dr. Orellana infectious disease physician in 1 week. Discussed with comp field case manager for antibiotic arrangement.
--- NOTE | 2018-11-11 14:57 | P.DCO ---
- Diagnosis (1) Osteomyelitis Status: Acute (2) Diabetes Status: Chronic (3) Strain of lumbar region Status: Acute (4) Lumbar radiculopathy Status: Acute (5) Hyponatremia Status: Acute (6) Suppurative tenosynovitis of flexor tendon of left hand Status: Chronic (7) Abscess of hand, left Status: Acute (8) Decubitus ulcer of left buttock, stage 3 Status: Chronic - Physical Therapy Order: Evaluate and treat - Home Health Nursing Order: Medical education, Signs/symptoms of disease process, Diabetic education , Medication education-adverse effect, Wound care and dressing changes (PICC line care, dressing changes every week, educate patient regarding use of IV antibiotics how to self administer IV abx ), Nursing assessment with vital signs , IV medication administration - Case Management Consult Case Management Consult-Home Health: Yes - Certification I have seen patient Tyron Sandoval on 11/11/18. My clinical findings support the need for the requested home health care services because: Limited mobility due to disease progression, Patient has SOB, Deconditioned with increased weakness I certify that my clinical findings support that this patient is homebound because: Post-op weakness (1) Osteomyelitis Qualifiers: Osteomyelitis type: unspecified type Osteomyelitis location: unspecified site Qualified Code(s): M86.9 - Osteomyelitis, unspecified (3) Strain of lumbar region Qualifiers: Encounter type: initial encounter Qualified Code(s): S39.012A - Strain of muscle, fascia and tendon of lower back, initial encounter
--- NOTE | 2018-11-11 15:43 | P.PNIM ---
Subjective Interval history: Patient is seen lying in bed. He tells me he is ready to go home today. No new complaints or concerns. Understands that he will need to follow-up with infectious disease physician for ongoing management of his antibiotics. Physical Exam Vital signs: Last Vital Signs Temp 96.3 F L 11/11/18 12:00 Pulse 75 11/11/18 12:00 Resp 14 11/11/18 12:00 BP 116/57 L 11/11/18 12:00 Pulse Ox 100 11/11/18 08:00 Intake & Output 11/09/18 11/10/18 11/11/18 11/12/18 06:59 06:59 06:59 06:59 Intake Total 2250 / 2250 680 / 680 2840 / 2840 100 / 100 Output Total 1780 / 1780 950 / 950 1675 / 1675 Balance 470 / 470 -270 / -270 1165 / 1165 100 / 100 Weight 90 kg Narrative: GENERAL: Well developed, well nourished male resting in bed in no acute distress. SKIN: Warm and dry. Gauze dressing to left hand -no drainage or surrounding erythema. HEAD: Atraumatic. Normocephalic. CARDIOVASCULAR: Regular rate and rhythm. RESPIRATORY: No accessory muscle use. Clear to auscultation. Breath sounds equal bilaterally. GASTROINTESTINAL: Abdomen soft, non-tender, nondistended. +BS MUSCULOSKELETAL: Extremities without clubbing, cyanosis, or edema. No obvious deformities. LUE PICC line with dry and intact dressing. NEUROLOGICAL: Awake and alert. No obvious cranial nerve deficits. Normal speech. PSYCHIATRIC: Appropriate mood and affect; insight and judgment normal. Urinary Catheter Management Indwelling Urethral Catheter: Cath placed during this visit: yes, but has since been removed by the nurse Removal date: 10/05/18 Removal time: 09:30 Results Labs CBC & Chem 7: 11/11/18 07:55 11/11/18 07:55 Assessment and Plan (1) Osteomyelitis: Code(s): M86.9 - Osteomyelitis, unspecified Status: Acute (2) Diabetes: Code(s): E11.9 - Type 2 diabetes mellitus without complications Status: Chronic (3) Strain of lumbar region: Code(s): S39.012A - Strain of muscle, fascia and tendon of lower back, initial encounter Status: Acute (4) Lumbar radiculopathy: Code(s): M54.16 - Radiculopathy, lumbar region Status: Acute (5) Hyponatremia: Code(s): E87.1 - Hypo-osmolality and hyponatremia Status: Acute (6) Suppurative tenosynovitis of flexor tendon of left hand: Code(s): M65.142 - Other infective (teno)synovitis, left hand Status: Chronic (7) Abscess of hand, left: Code(s): L02.512 - Cutaneous abscess of left hand Status: Acute (8) Decubitus ulcer of left buttock, stage 3: Code(s): L89.323 - Pressure ulcer of left buttock, stage 3 Status: Chronic Plan Patient is a 58-year-old male with PMH significant for HTN, HLD, GERD , a.fib anticoagulated on Eliquis, DM, and discitis of L4-L5 who had been recently discharged on 09/17 with right UE PICC for IV antibiotic infusion who returned to ED on 09/23 due to right UE swelling and PICC not working. 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 Wound culture obtained at left L4 pedicle; + for Portia albicans. - Recommendations to continue Micafungin for diskitis and OM, plan for 12 weeks 01/04/18. Continue Azithromycin 500mg p.o. until 01/21/18, Tigecycline until . -ID following greatly appreciate assistance. -Pain control with oral Dilaudid and Roxicodone. Continue Baclofen, Flexeril and gabapentin. -PT following. 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 - s/p exploration, wash, repair of wound dehiscence, left palm/ring finger on Right shoulder pain -Right shoulder CT destructive changes involving humeral head & acromion process. Concerns for OM. MRI with abnormal shoulder jointing including humerus and deltoid muscle. Concerns for inflammatory or neoplastic process. -Ortho. consulted, appreciate assistance. Recommend nonoperative approach with IV ABX. - s/p Right shoulder biopsy done by IR 11/06, pending bacteria, fungal, AFB, cultures. Pathology report with fibroadipose tissue and non-organized blood coagulum. -Pain is stable. Atrial fibrillation, rate-controlled - Restart Eliquis tonight, monitor for bleeding from shoulder biopsy site. - Continue Diltiazem - Monitor vitals HTN, controlled - Blood pressure controlled - Continue ramipril and furosemide. - BP stable off scheduled Clonidine. - Continue to monitor and adjust meds as needed Diabetes mellitus - A1c 7.7 - Diabetic diet - SSI with Accu-Cheks per protocol -Recent hypoglycemic episode, continue Levemir 36 units in the a.m. and Levemir 20 units at bedtime. - Continue monitoring BS and adjust accordingly Voice hoarseness -ENT consulted, CT of neck with left supraclavicular adenopathy and multiple small thyroid nodules bilaterally. Chest CT with 7mm nodular opacity in right mid lobe, recommendations for surveillance in 6 months. - Recommendations for ST and follow-up as outpatient. Monitor left supraclavicular adenopathy, thyroid US in 6 months with PCP for thyroid nodules. Repeat chest CT in 6 months due to nodule. Microcytic hypochromic anemia/MARCI - Irons studies consistent with MARCI - Continue iron supplementation - H&H stable DVT prophylaxis-Eliquis Discussed Condition With: Patient and RN Progress Note: Quality VTE Deep Vein Thrombosis/Pulmonary Embolism Present on Admission: No _ (1) Osteomyelitis Qualifiers: Laterality: Osteomyelitis location: unspecified site Osteomyelitis type: unspecified type Qualified Code(s): M86.9 - Osteomyelitis, unspecified (2) Diabetes Qualifiers: Chronic kidney disease stage: Diabetes mellitus complication detail: Diabetes mellitus complication status: Diabetes mellitus termite control representative insulin use : Diabetes mellitus macular edema: Diabetes mellitus type: Diabetic retinopathy severity: Laterality: Proliferative retinopathy type: Qualified Code(s): Z79.4 - care home (current) use of insulin (3) Strain of lumbar region Qualifiers: Encounter type: initial encounter Qualified Code(s): S39.012A - Strain of muscle, fascia and tendon of lower back, initial encounter
--- NOTE | 2018-11-11 15:46 | P.DS ---
DS: Providers Date of admission: 09/24/18 09:43 Primary care physician: UNKNOWN Consults: 09/23/18 15:43 Consult to Hematology Routine Consulting Provider: Agustin Morton Reason for Consultation: Occlusive thrombus in the proximal and mid cephalic vein, on eliquis, has access for home ABX for osteomyelitis, needs ABX until 10/04 Notified:: Service Spoke with:: IDALIA Date Notified:: 09/23/18 Time Notified:: 15:49 Ordering Provider: JACQUELYN 09/23/18 17:57 Consult to Hand Surgery Routine Consulting Provider: Slim Slaughter Preferred Booth Supervisor:: Slim Slaughter Reason for Consultation: Reevaluation Notified:: Service Spoke with:: TYSON Date Notified:: 09/23/18 Time Notified:: 18:00 Comments:: LEFT HAND Ordering Provider: CRISTIAN 09/24/18 14:24 Consult to Infectious Diseases Routine Consulting Provider: Loulou Treviño Reason for Consultation: Suppurative tenosynovitis s/p closure of wound for dehiscence osteomyelitis/ antibiotic long tem use Notified:: Service Spoke with:: ROSALINDA Date Notified:: 09/24/18 Time Notified:: 14:33 Ordering Provider: AMY 09/24/18 15:43 HUB Only Consult Order Routine Consulting Provider: Katy Sykes 09/25/18 11:39 Consult to Infectious Diseases Routine Consulting Provider: Zee Villalba Preferred Booth Supervisor:: Zee Villalba Patient known to:: Zee Villalba Reason for Consultation: Patient known to you for continuity of care: Discitis. Notified:: Service Spoke with:: CARLTON Date Notified:: 09/25/18 Time Notified:: 11:50 Ordering Provider: MAURILIO 09/25/18 14:13 Consult to Infectious Diseases Routine Consulting Provider: Brandon Ignacio Preferred Booth Supervisor:: Brandon Ignacio Patient known to:: Brandon Ignacio Reason for Consultation: evaluate persistent infection hand/wrsit Notified:: Service Spoke with:: carlton Date Notified:: 09/25/18 Time Notified:: 14:24 Ordering Provider: ADAM 09/27/18 14:48 Consult to Psychiatry Routine Consulting Provider: Riley Saucedo Reason for Consultation: capacity medical decision making Ordering Provider: AMY 09/28/18 09:47 Consult to Psychiatry Routine Consulting Provider: Forrest Ng Reason for Consultation: nurse reported patient hitting himself today/ "ticks "? capacity-patient has been changing his statements daily Notified:: Service Spoke with:: JESSICA Date Notified:: 09/28/18 Time Notified:: 11:28 Ordering Provider: AMY 10/01/18 12:50 Consult to Neurosurgery Routine Consulting Provider: Rob Barnes Reason for Consultation: discitis retirement antbx treatment recurrent PIcc line malfunction Notified:: Physician Spoke with:: DR. BARNES Date Notified:: 10/01/18 Time Notified:: 12:54 Ordering Provider: AMY 10/03/18 12:17 Consult to Hand Surgery Routine Consulting Provider: Slim Slaughter Preferred Booth Supervisor:: Slim Slaughter Patient known to:: Slim Slaughter Reason for Consultation: REEVALUATION OF HAND Notified:: Office Spoke with:: riana Date Notified:: 10/03/18 Time Notified:: 12:23 Ordering Provider: STIVEN 10/04/18 17:55 Consult to Cdl Instructor Routine Consulting Provider: Kiko Mcmanus Reason for Consultation: CONSULT DITCH TENDER RE: MEDICAL MGMT, PT CURRENTLY IN PACU Notified:: Service Spoke with:: GENE Date Notified:: 10/04/18 Time Notified:: 18:18 Ordering Provider: ZACHARY 10/05/18 10:51 Consult to Hospitalist Routine Consulting Provider: Rg Mcgrath Reason for Consultation: Assume care in am 10/06/18 Notified:: Service Spoke with:: Rosalinda Date Notified:: 10/05/18 Time Notified:: 11:09 Ordering Provider: MILAN 10/14/18 10:28 Consult to ENT Routine Consulting Provider: Ismael Gallgaher Reason for Consultation: Dysphonia after procedure Notified:: Physician Spoke with:: DR. GALLAGHER Date Notified:: 10/14/18 Time Notified:: 10:41 Comments:: Ordering Provider: KWAN 10/21/18 08:29 Consult to Neuropsychology Routine Consulting Provider: Bay Guardado Preferred Booth Supervisor:: Benito Hunter Patient known to:: Benito Hunter Reason for Consultation: Numerous previous consults for same issue. Patient verbally abusive and threatening. Notified:: Physician Spoke with:: Date Notified:: 10/21/18 Time Notified:: 08:50 Ordering Provider: JOSE 10/25/18 16:19 HUB Only Consult Order Routine Consulting [facility]: [facility] 11/01/18 13:39 Consult to Orthopedic Surgery Routine Consulting Provider: Mihai Rsosi Reason for Consultation: right shoulder pain. 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 Wound culture obtained at left L4 pedicle; + for Portia albicans. -ID consulted with recommendations to continue Micafungin for diskitis and OM, plan for 12 weeks 01/04/18. Continue Azithromycin 500mg p.o. until 01/21/18, Tigecycline until 01/21/18. 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 Concerns for OM. MRI with abnormal shoulder jointing including humerus and deltoid muscle. Concerns for inflammatory or neoplastic process. Ortho. consulted and recommend nonoperative approach with IV ABX. - s/p Right shoulder biopsy done by IR 11/06. Pathology report with fibroadipose tissue and non-organized blood coagulum. Atrial fibrillation, rate-controlled ; stable throughout hospitalization -Patient restarted on Eliquis and Continued on Diltiazem HTN, controlled throughout hospitalization - Continued ramipril and furosemide. - BP stable off scheduled Clonidine. Diabetes mellitus - A1c 7.7 -Levemir 36 units in the a.m. and Levemir 20 units at bedtime. Voice hoarseness -ENT consulted, CT of neck with left supraclavicular adenopathy and multiple small thyroid nodules bilaterally. Chest CT with 7mm nodular opacity in right mid lobe, recommendations for surveillance in [address] and follow-up as outpatient. Monitor left supraclavicular adenopathy, thyroid US in 6 months with PCP for thyroid nodules. Repeat chest CT in 6 months due to nodule. Microcytic hypochromic anemia/MARCI - Irons studies consistent with MARCI - Continue iron supplementation - H&H stable Time Spent with Patient Total time spent providing and/or coordinating discharge services: <30 min Quality: VTE Deep Vein Thrombosis/Pulmonary Embolism Present on Admission: Yes Exam Narrative Exam Narrative: GENERAL: Well developed, well nourished male resting in bed in no acute distress. SKIN: Warm and dry. Gauze dressing to left hand -no drainage or surrounding erythema. HEAD: Atraumatic. Normocephalic. CARDIOVASCULAR: Regular rate and rhythm. RESPIRATORY: No accessory muscle use. Clear to auscultation. Breath sounds equal bilaterally. GASTROINTESTINAL: Abdomen soft, non-tender, nondistended. +BS MUSCULOSKELETAL: Extremities without clubbing, cyanosis, or edema. No obvious deformities. LUE PICC line with dry and intact dressing. NEUROLOGICAL: Awake and alert. No obvious cranial nerve deficits. Normal speech. PSYCHIATRIC: Appropriate mood and affect; insight and judgment normal. Results Completed studies during hospitalization: Pending at discharge 10/04/18 07:38 Surgical [PTH] Routine Labs on day of discharge: Labs from last 24 hours 11/11/18 11/11/18 11/11/18 13:04 09:25 07:55 WBC RBC Hgb Hct MCV MCH MCHC RDW Plt Count MPV Neut % (Auto) Lymph % (Auto) [place] % (Auto) Eos % (Auto) Baso % (Auto) Neut # (Auto) Lymph # (Auto) [place] # (Auto) Eos # (Auto) Baso # (Auto) WBC Differential Differential Comment Sodium 133 L Potassium 4.1 Chloride 101 Carbon Dioxide 25.3 Anion Gap 7 BUN 21 H Creatinine 0.71 Estimated GFR Greater than 89 POC Glucose 71 108 Random Glucose 98 Calcium 8.2 L 11/11/18 11/10/18 11/10/18 07:55 21:37 17:50 WBC 13.4 H RBC 3.41 L Hgb 8.5 L Hct 25.2 L MCV 73.8 L MCH 25.0 L MCHC 33.8 RDW 16.3 Plt Count 390 MPV 6.6 L Neut % (Auto) 75.1 H Lymph % (Auto) 14.1 [place] % (Auto) 8.0 Eos % (Auto) 2.0 Baso % (Auto) 0.8 Neut # (Auto) 10.1 H Lymph # (Auto) 1.9 [place] # (Auto) 1.1 H Eos # (Auto) 0.3 Baso # (Auto) 0.1 WBC Differential . Differential Comment Auto diff final Sodium Potassium Chloride Carbon Dioxide Anion Gap BUN Creatinine Estimated GFR POC Glucose 198 H 233 H Random Glucose Calcium Preliminary micro results at discharge 11/06/18 11:45 Wound Culture - Preliminary Wound - Shoulder 10/04/18 16:56 Mycobacterial Culture - Preliminary Tissue - Other No growth in 5 weeks 10/04/18 16:05 Mycobacterial Culture - Preliminary Wound - Other No growth in 5 weeks 10/04/18 16:05 Mycobacterial Culture - Preliminary Wound - Other No growth in 5 weeks Impressions ITS Impressions Venous Doppler Study 09/23/18 13:35 CONCLUSION: 1. Occlusive thrombus in the proximal and mid cephalic vein. 2. Deep venous system is otherwise patent. 3. Heterogeneous hypoechoic collection along the right shoulder which could represent a hematoma and/or seroma. Chest CT 10/15/18 00:00 CONCLUSION: 1. 7 mm nodular opacity in the right middle lobe: Surveillance recommended with follow-up scan in 6 months. 2. Mild interstitial prominence which may be inflammatory. 3. No evidence of consolidating airspace disease or pleural effusions. Soft Tissue Neck CT 10/15/18 00:00 CONCLUSION: 1. Left supraclavicular adenopathy. 2. Multiple small thyroid nodules bilaterally. Chest X-Ray 10/18/18 16:16 CONCLUSION: No acute cardiopulmonary disease. There is no definite evidence of pneumonia. Lumbar Spine X-Ray 10/20/18 00:00 CONCLUSION: 1. A suspected new/acute, mild compression fracture of L1. No retropulsed fragments are seen. 2. Recent postop fusion from L2 through S1 without evidence of an acute complication in the operative region. Wrist X-Ray 10/20/18 00:00 CONCLUSION: 1. No acute fracture or acute appearing malalignment of the right wrist. 2. Suspected early or mild scapholunate associated collapse and dorsal intercalated segmental instability. 3. 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 Lumbar Spine CT 10/21/18 00:00 CONCLUSION: 1. There has been interval fusion from L2 down to S1. There is minimal anterolisthesis of L4 on L5. There has been previous laminectomy at L4 and L5. 2. Destructive changes in the L4-5 endplates consistent with patient's history of previous discitis. There is paraspinous soft tissue extending from L4 down to S1. This is similar compared to previous exam. 3. There is a small amount of gas within the subcutaneous soft tissues at the L2 level. There are skin dilshad in place. 4. Individual levels are dictated in detail above. Wrist MRI 10/21/18 00:00 CONCLUSION: 1. Elongated subcutaneous fluid collection at the level of the distal radius with rim enhancement and potentially an abscess in the proper clinical setting. A focally thrombosed vessel would be conceivable. This collection does not appear to be within the tendon sheaths of adjacent extensor compartments 3 or 4. No intrinsic flexor or extensor tendon abnormality demonstrated. 2. Effusion and severe synovitis of the distal radioulnar joint and also synovitis in the prestyloid region. This is nonspecific; infectious and inflammatory etiologies are in the differential. If the distal radioulnar joint is infected, there are signal changes of the distal ulna that would be concerning for osteomyelitis. 3. DISI and SLAC wrist. Radial sided osteoarthritis. There is marrow edema of the scaphoid, mostly the distal half of the bone that is nonspecific but presumably reactive. 4. Mild to moderate osteoarthritis with subchondral cystic change of the lunotriquetral joint. This is underestimated radiographically. Lumbar Spine MRI 10/27/18 00:00 CONCLUSION: 1. Interval posterior fusion at L2-S1. 2. Persistent endplate destructive changes at L4-5 with significantly improved epidural abscess. 3. There is improved but persistent peripherally enhancing fluid signal in the L4-5 disc space extending anteriorly to the prevertebral soft tissues. Findings are concerning for recurrent/residual discitis and prevertebral phlegmon. Shoulder X-Ray 10/31/18 00:00 CONCLUSION: Faint calcification adjacent to the greater tubercle likely related to calcific tendinitis/hydroxyapatite deposition. High right humeral head which can be seen with rotator cuff abnormality. Chronic hypertrophic change seen lateral to the acromion. Shoulder MRI 11/01/18 00:00 CONCLUSION: 1. Markedly abnormal shoulder joint including humerus and deltoid muscle. Considerations would include both an inflammatory and neoplastic process. Shoulder CT 11/02/18 00:00 CONCLUSION: 1. Destructive changes are seen involving the humeral head and acromion process as described above. This is concerning for osteomyelitis and involves the humerus and acromion. A neoplastic process is felt less likely but not entirely excluded. Bone Biopsy CT 11/06/18 08:48 CONCLUSION: 1. Uncomplicated CT guided biopsy. Discharge Plan Discharge Disposition Patient Disposition: 01 Discharge Home Discharge Condition Condition: Stable Discharge Order Discharge Orders: Discharge Order (Routine); Ordered 11/11/18 Ordered By: Sharri Granger Discharge Details Anticipated Discharge Date: 11/11/18 Discharge Comment: Follow-up with infectious disease: Dr. Orellana is an outpatient in 1 week Follow-up with primary care in 1 week Diagnosis: Osteomyelitis, Discitis of lumbar region, Malfunction of peripheral inserted central catheter Physicians Team ED Provider: Lmeuel Doe ED Midlevel Provider: Amna Prince Primary Care Provider: UNKNOWN, Attending Provider: Sharri Granger Other Providers: Slim Slaughter ; Loulou Treviño ; [facility] ; Zee Villalba ; Brandon Ignacio ; Riley Saucedo ; Forrest Ng ; Rob Barnes ; Kiko Mcmanus ; Ismael Gallagher ; Bay Guardado ; [facility],[place] ; Mihai Rossi ; [facility] Rxs /Orders / Referrals /Forms Prescriptions: New tigecycline [Tygacil] 50 mg Recon Soln 50 mg IV Q12H Qty: 60 RF: 3 azithromycin 250 mg Tablet 500 mg PO DAILY Qty: 60 RF: 3 micafungin [Mycamine] 50 mg Recon Soln 150 mg IV Q24H Qty: 30 RF: 3 insulin detemir U-100 [Levemir U-100 Insulin] 100 unit/mL Solution 36 unit subcut DAILY RF: 0 insulin detemir U-100 [Levemir U-100 Insulin] 100 unit/mL Solution 25 unit subcut HS RF: 0 Continue apixaban [Eliquis] 2.5 mg Tablet 5 mg PO BID RF: 0 diltiazem HCl 240 mg Capsule,Ext.Rel 24h Degradable 240 mg PO DAILY RF: 0 ramipril 2.5 mg Capsule 2.5 mg PO DAILY RF: 0 furosemide 20 mg Tablet 20 mg PO BID RF: 0 pantoprazole [Protonix] [address] For Susp In Packet 40 mg PO DAILY RF: 0 baclofen 10 mg Tablet 10 mg PO Q8HR Qty: 90 RF: 0 meloxicam 7.5 mg Tablet 7.5 mg PO Q12H RF: 0 Discontinued insulin glargine [Lantus Solostar U-100 Insulin] 100 unit/mL (3 mL) Insulin Pen 50 unit SUB-Q BID RF: 0 oxycodone 30 mg Tablet 30 mg PO Q4H PRN (Reason: pain) RF: 0 clarithromycin 500 mg Tablet 500 mg PO Q12H 60 Days Qty: 120 RF: 0 tigecycline [Tygacil] 50 mg Recon Soln 50 mg IV Q12H RF: 0 cefoxitin in dextrose, iso-osm 2 gram/50 mL Piggyback 2 g IV Q8H RF: 0 Referrals: Hina Orellana MD [Physician] - See Instructions (follow up for discitis/osteo lumbar spine.) UNKNOWN, [Primary Care Provider] - See Instructions Discharge Instructions Patient Printed Instructions: Laminectomy (DC) Post Discharge Care Plan Care Plan Goals: Your Health Problems: Goals to Promote Your Health: * To prevent worsening of your condition * To maintain your health at the optimal level Directions to Meet Your Goals: * Take your medications as prescribed * Follow your dietary instruction * Follow activity as directed * Keep your appointments as scheduled * Take your immunizations and boosters as scheduled * If your symptoms worsen call your PCP * If no PCP go to Urgent Care or Emergency Room Smoking is dangerous to your health. Avoid second hand smoke. You may reach the 24-hour crisis hotline for domestic abuse at . Discharge Interventions Interventions: Discharge Planning - Case Management Last Done: 11/08/18 13:32 Status ED Status: Left Department
[2018-11-11] MEDS: dilTIAZem CD 120 MG Capsule PO SCH (17:01)
--- NOTE | 2018-11-11 17:42 | P.DCO ---
Post Hospital Infusion Therapy - Infusion Therapy Location of Infusion Therapy: Home Health Care IV Infusion Order - Patient Information Patient Weight: 90 kg - Administer Medication Tigecycline Dose: 50 mg IV Directions: q 12 hours Stop Treatment: 01/21/19 - Additional Information Additional Medications: Micafungin 100 mg IV every 24 hours until 01/04/2019 Venous Access: PICC Line Additional Instructions: [x] Peripheral flush and dressing changes per protocol [x] Implanted port and central pot reliner: * Implanted port: 10 ml Normal Saline followed by 5 ml Heparin 100 units/ml Heparin flush after each use and monthly to maintain. [] May leave port accessed during therapy. [] May leave peripheral site accessed for duration of therapy. [x] If patient has SOB or respiratory distress, check oxygen saturation. If less than 90% or clinical signs of respiratory distress, administer oxygen at 2 L/min. via nasal cannula and notify physician. [x] Anaphylaxis/Reaction orders: * Stop infusion. * Keep IV line open with saline flush. * Notify physician. * Monitor vital signs every 15 minutes until symptoms resolve. * Check Oxygen saturation; Oxygen at 2 L/min. via nasal cannula if less than 90% or clinical signs of respiratory distress. * Administer diphenhydramine (Benadryl) 25 mg IV STAT, (unless patient has received as pre-med). May repeat once, if necessary. * Solu-Cortef 250 mg IVP over 30-60 seconds, use 100 mg vials for each dissolution. * Epinephrine (1mg/1 ml) 0.3 mg subcutaneously or IVP now with any signs of respiratory distress. * Check with physician for new additional pre-med orders if patient is re- challenged or re-treated. [x] May remove PICC line when treatment complete, after confirming with Physician. [x] If the patient is admitted to the hospital, the ED, or transferred via [facility] , complete transfer form including medication reconciliation order sheet. Weekly Labs: BMP, CBC w/diff, LFTs (Hepatic Function Test), SED Rate - Case Management Consult Case Management Consult-IVF: Yes - Patient Information Allergies No Known Drug Allergies Allergy (Verified 08/06/18 15:59) none *MDRO Multi-Drug Resistant Organism Adverse Reaction (Unknown, Uncoded 06/16/17 16:34) MRSA MRSA (foot wound) - 02/12/15, 11/12/16, 03/29/17; (toe) - 03/2016
[2018-11-12] MEDS: Baclofen 10 MG Tablet PO SCH (06:18)
[2018-11-12] MEDS: Multivitamin/Minerals Therapeutic Tablet PO SCH (09:39)
[2018-11-12] MEDS: Furosemide 20 MG Tablet PO SCH (09:39)
[2018-11-12] MEDS: Polysaccharide Iron Complex 150 MG Capsule PO SCH (09:39)
[2018-11-12] MEDS: Senna/Docusate Sodium 8.6/50 MG Tablet PO SCH (09:39)
[2018-11-12] MEDS: Azithromycin 250 MG Tablet PO SCH (09:40)
[2018-11-12] MEDS: Gabapentin 300 MG Capsule PO SCH (09:40)
[2018-11-12] MEDS: Insulin Detemir Inj 1,000 UNIT/10 ML Vial SQ SCH (09:40)
[2018-11-12] MEDS: Insulin NovoLOG Aspart Correctional Sugar Inj SQ SCH (09:41)
[2018-11-12] MEDS: Ramipril 5 MG Capsule PO SCH (09:42)
[2018-11-12] MEDS: Heparin Central Flush 100 UNIT/ML 5 ML Vial IV.FLUSH SCH (09:43)
[2018-11-12] MEDS: Sodium Chloride 0.9% 2 ML Flush BID IV.FLUSH SCH (09:44)
== END 2018-11-12 11:00 | disposition home or self-care (01) ==
LOC: NEPE 13:15 → NEDA 15:18 → INTOOBSV 15:18 → N07 16:26 → N03 10-04 18:14 → N07 10-05 16:27 → H7ONC 11-06 22:00
PROVIDERS: ADMIT Hospitalist; ATTEND Hospitalist
DX: D50.9 Iron deficiency anemia, unspecified; T82.818A Embolism due to vascular prosthetic devices, implants and grafts, initial encounter; I48.2 Chronic atrial fibrillation; Y93.89 Activity, other specified; E11.69 Type 2 diabetes mellitus with other specified complication; Z79.01 Long term (current) use of anticoagulants; F42.3 Hoarding disorder; T81.30XA Disruption of wound, unspecified, initial encounter; Z79.4 Long term (current) use of insulin; M46.26 Osteomyelitis of vertebra, lumbar region; E87.1 Hypo-osmolality and hyponatremia; W19.XXXA Unspecified fall, initial encounter; E11.65 Type 2 diabetes mellitus with hyperglycemia; A31.9 Mycobacterial infection, unspecified; G89.4 Chronic pain syndrome; Z79.2 Long term (current) use of antibiotics; Z91.19 Patient's noncompliance with other medical treatment and regimen; Y71.2 Prosthetic and other implants, materials and accessory cardiovascular devices associated with adverse incidents; M25.511 Pain in right shoulder; I12.9 Hypertensive chronic kidney disease with stage 1 through stage 4 chronic kidney disease, or unspecified chronic kidney disease; T82.594A Other mechanical complication of infusion catheter, initial encounter; E11.649 Type 2 diabetes mellitus with hypoglycemia without coma; N18.9 Chronic kidney disease, unspecified; S39.012A Strain of muscle, fascia and tendon of lower back, initial encounter; F41.9 Anxiety disorder, unspecified; E78.5 Hyperlipidemia, unspecified; Y92.230 Patient room in hospital as the place of occurrence of the external cause; E04.2 Nontoxic multinodular goiter; M65.242 Calcific tendinitis, left hand; D62 Acute posthemorrhagic anemia; F29 Unspecified psychosis not due to a substance or known physiological condition; M21.242 Flexion deformity, left finger joints; B37.9 Candidiasis, unspecified; R49.0 Dysphonia; G06.1 Intraspinal abscess and granuloma; F11.20 Opioid dependence, uncomplicated; T80.219A Unspecified infection due to central venous catheter, initial encounter; Z82.49 Family history of ischemic heart disease and other diseases of the circulatory system; S32.018A Other fracture of first lumbar vertebra, initial encounter for closed fracture; M54.16 Radiculopathy, lumbar region; R59.9 Enlarged lymph nodes, unspecified; E11.22 Type 2 diabetes mellitus with diabetic chronic kidney disease; J38.01 Paralysis of vocal cords and larynx, unilateral; L25.9 Unspecified contact dermatitis, unspecified cause; M86.611 Other chronic osteomyelitis, right shoulder; L02.512 Cutaneous abscess of left hand; K21.9 Gastro-esophageal reflux disease without esophagitis; Y82.8 Other medical devices associated with adverse incidents; I82.611 Acute embolism and thrombosis of superficial veins of right upper extremity; Z79.899 Other long term (current) drug therapy; Y84.8 Other medical procedures as the cause of abnormal reaction of the patient, or of later complication, without mention of misadventure at the time of the procedure; E11.3519 Type 2 diabetes mellitus with proliferative diabetic retinopathy with macular edema, unspecified eye